=== PATIENT | male | born 1950 | race Caucasian/White ===

== ENCOUNTER 2024-01-29 11:43 | Inpatient (IN) ==
[2024-01-29 12:53] LABS: Basophils # (auto) 0.05 K/uL (0.00-0.20); Basophils % (auto) 0.7 %; Eosinophils # (auto) 0.24 K/uL (0.00-0.50); Eosinophils % (auto) 3.2 %; Hematocrit (blood only) 36.8 % (42.0-52.0); Hemoglobin 12.3 g/dl (14.0-18.0); Immature Granulocytes # (auto) 0.03 K/uL (0.01-0.20); Immature Granulocytes % (auto) 0.4 %; Lymphocytes # (auto) 1.89 K/uL (1.20-3.40); Lymphocytes % (auto) 24.9 %; Mean Corpuscular Hgb Conc 33.4 g/dL (32.0-36.0); Mean Corpuscular Volume 89.8 fL (80.0-100.0); Mean Platelet Volume 9.2 fL (9.4-12.4); Monocytes % (auto) 7.9 %; Neutrophils # (auto) 4.77 K/uL (1.40-6.50); Neutrophils % (auto) 62.9 %; Platelet Count 275 K/uL (130-400); RDW Coefficient of Variation 15.2 % (11.5-14.5); RDW Standard Deviation 49.9 fL (36.4-46.3); White Blood Count 7.58 K/ul (4.8-10.8)
[2024-01-29 13:07] LABS: Alanine Aminotransferase 9 U/L (7-52); Albumin Globulin Ratio 1.6 (0.9-2); Albumin Level 3.9 gm/dl (3.4-5.0); Alkaline Phosphatase 48 U/L (34-104); Anion Gap 12 (3-11); Aspartate Aminotransferase 12 U/L (13-39); BUN Creatinine Ratio 16.7 (10-20); Bilirubin,Total 0.7 mg/dl (0.2-1.0); Blood Urea Nitrogen 14 mg/dl (6-23); Calcium 9.1 mg/dl (8.6-10.3); Carbon Dioxide 24 mmol/L (21-32); Chloride 101 mmol/L (98-107); Est GFR (African American) 100.7 ml/min; Est GFR (Non-African American) 86.9 ml/min; Globulin 2.5 gm/dl (2.5-4.0); Glucose 82 mg/dl (70-99(Fasting)); Lipase 13 U/L (11-82); Potassium 3.9 mmol/L (3.5-5.1); Sodium 137 mmol/L (136-145); Total Protein 6.4 gm/dl (6.0-8.3)
[2024-01-29 13:17] LABS: INR 3.2 (0.9-1.1); Prothrombin Time 31.2 Seconds (9.0-12.0)
--- NOTE | 2024-01-29 13:22 | Emergency Department Note ---
Impression & Plan Generalized weakness, UTI (urinary tract infection), Ambulatory dysfunction, Chronic indwelling Chaparro catheter, Abdominal pain, Hypomagnesemia, Abnormal weight loss ED Provider Note CHIEF COMPLAINT: Lower abdominal pain HISTORY OF PRESENTING ILLNESS: This 73-year-old male patient presents to the emergency department with his for evaluation of lower abdominal pain. The patient has a Chaparro catheter in place that was replaced yesterday due to history of 6 UTIs since September with enlarged prostate. He is now complaining of lower abdominal and back pain and feels like he has to push the urine into his catheter. The patient is following with urology and is to be scheduled to have a procedure for his prostate. His states that he is lost approximately 20 pounds in the past month. The patient is concerned that there is something else causing his symptoms. The patient states that he does not have much of an appetite. He was admitted at [facility] for a UTI around and just came home from [facility] on Sunday. His states that he is getting weaker and weaker and is depressed about his health. The patient is waiting on getting in with GI because of alternating constipation, diarrhea, and the weight loss. However, they cannot schedule the EGD and Colonoscopy until March. They tried a GES, but he kept vomiting and the test could not be done. He denies any fevers, cough, or URI symptoms. Denies any chest pain or SOB. Denies nausea or vomiting. He is on Coumadin due to a history of blood clots. REVIEW OF SYSTEMS: See HPI for pertinent positives and pertinent negatives. ALLERGIES: NKDA, Cats MEDICATIONS: See below PAST MEDICAL HISTORY: See below PHYSICAL EXAM: VITALS: Vitals are noted on the nurse's note and reviewed by myself. GENERAL: The patient is chronically ill-appearing and in in appearance. Non toxic, no acute distress, non-diaphoretic. SKIN: Capillary refill <2 sec. EYES: PERRLA. EOMI. Conjunctivae without injection, sclerae without icterus. NOSE: Patent without discharge. MOUTH: Mucous membranes moist. Uvula midline. Airway patent. NECK: Supple without nuchal rigidity. HEART: Regular rate and rhythm without murmurs gallops or rubs. LUNGS: Clear to auscultation bilaterally without wheezes, rales or rhonchi. No retractions or accessory muscle use. ABDOMEN: Positive bowel sounds x 4. Normal tympanic percussion. Soft, mildly tender to palpation in the suprapubic area. No masses or organomegaly. Reaglado sign negative. No guarding or rebound tenderness. No focal RLQ or LLQ tenderness. Chaparro catheter is in place. MUSCULOSKELETAL: No gross musculoskeletal defects. No tenderness to palpation of the cervical, thoracic, or lumbar spine or paraspinal muscles. Peripheral pulses 2+ and equal in the bilateral upper and lower extremities. NEURO: Patient was alert and oriented. No focal neurological deficits. DIFFERENTIAL DIAGNOSIS: Differential diagnosis includes hepatitis, pancreatitis, cholecystitis, cholelithiasis, appendicitis, kidney stone, pyelonephritis, UTI, gastritis, gastroenteritis, mesenteric adenitis, obstruction, constipation, hernia, abdominal abscess, perforation, diverticulitis, IBD, ischemic colitis, abdominal aortic aneurysm, testicular torsion, prostatitis, or others. ED COURSE AND MEDICAL DECISION MAKING: HISTORY FROM INDEPENDENT HISTORIAN: Additional history obtained from the patient's MEDICATIONS GIVEN: 500 mL normal saline solution bolus. Tylenol 1000 mg IV. Magnesium 1 g IV. MONITOR: Continuous playground monitor: Order was placed for continuous playground monitor. Patient was placed on the playground monitor and continuous pulse ox. Patient was noted to be in normal sinus rhythm at an initial rate of 66 bpm per my interpretation. EKG: EKG was interpreted by myself as normal sinus rhythm at 93 bpm with no acute ST or T wave changes and no significant change compared to his previous EKG. INTERPRETATION OF LABS: I interpreted the labs with full lab results as below in the lab section of this note. Pertinent lab results discussed in the MDM section below. INTERPRETATION OF IMAGING: Imaging studies were interpreted by myself and read by radiology as per the imaging section of this note. CT scan of the head without contrast showed no acute intracranial abnormalities, but does show old small infarcts. CT scan of the chest with IV contrast shows mild cardiomegaly and extensive coronary artery calcification with a few pulmonary nodules measuring up to 7 mm, but no convincing evidence for malignancy or other acute intrathoracic findings. CT scan of the abdomen pelvis with IV contrast showed nonspecific wall thickening of the ascending and proximal transverse colon. Correlate clinically to exclude colitis. No bowel obstruction or pneumoperitoneum. Bilateral nephrolithiasis with a 1.7 cm calculus in the right UPJ. No associated obstructive uropathy. Indeterminate bilateral renal lesions which could be evaluated with a follow-up nonemergent renal ultrasound. Cholelithiasis. Prostatomegaly with evidence of chronic bladder outlet obstruction. Colonic diverticulosis. CONSULTATIONS: On-call hospitalist, case management MDM SUMMARY: The patient was seen during a time of extreme volume and extreme acuity. Nursing triage protocols were initiated with IV lock, labs, and/or imaging studies conducted by protocol in the triage area. The patient was initially evaluated in a triage room and then re-evaluated once they were taken back to an exam room. The patient has had 6 UTIs since September and has a chronic Chaparro catheter in place that was just changed yesterday. He also has an enlarged prostate and is waiting on a procedure by urology. The patient has had a 20 pound weight loss in the past month and is scheduled for an EGD and colonoscopy in March by GI. The patient was unable to tolerate a gastric emptying study. The patient was admitted at [facility] until around for UTI and was just discharged home from [facility] on 01/26/2024. The patient was given 500 mL normal saline solution bolus. He was given Tylenol 1000 mg IV with improvement of his pain. White blood cell count normal at 7.58. Hemoglobin low at 12.3. Platelet count normal at 275. INR slightly supratherapeutic at 3.2. CMP without significant abnormalities. High- sensitivity troponin was normal. TSH was normal. Magnesium low at 1.0. Cath urine sample with trace ketones, 1+ blood, 3+ leukocyte esterase, greater than 50 white blood cells, 3-5 red blood cells, and 11-20 hyaline cast. Urine culture pending. COVID, RSV, and influenza were negative. CT scan of the head without contrast showed no acute intracranial abnormalities, but does show old small infarcts. CT scan of the chest with IV contrast shows mild cardiomegaly and extensive coronary artery calcification with a few pulmonary nodules measuring up to 7 mm, but no convincing evidence for malignancy or other acute intrathoracic findings. CT scan of the abdomen pelvis with IV contrast showed nonspecific wall thickening of the ascending and proximal transverse colon. Correlate clinically to exclude colitis. No bowel obstruction or pneumoperitoneum. Bilateral nephrolithiasis with a 1.7 cm calculus in the right UPJ. No associated obstructive uropathy. Indeterminate bilateral renal lesions which could be evaluated with a follow-up nonemergent renal ultrasound. Cholelithiasis. Prostatomegaly with evidence of chronic bladder outlet obstruction. Colonic diverticulosis. I had a meaningful discussion about this patient with Dr. Dias who agrees with my assessment and the treatment plan. The patient's states that he is unable to ambulate by himself at home due to his weakness and she is unable to assist him with ambulation or activities of daily living. She is also concerned about his weight loss and trouble eating and drinking. The patient's magnesium is also significantly low at 1.0. I spoke with case management and the patient cannot be a direct admit to a care home facility. Therefore, the patient will be admitted for further evaluation, treatment, and placement. I spoke with the on-call hospitalist who agreed to admit the patient for further management. Please refer to their dictation for further details. The patient's care was transferred in stable condition. DIAGNOSIS: Weakness with ambulatory dysfunction Abdominal pain Weight loss Recurrent UTIs with indwelling Chaparro catheter Hypomagnesemia Past Med/Surg History Problem List (Updated 01/29/24 @ 22:49 by Liliana Bradshaw PA-C) Abnormal weight loss (Acute) Hypomagnesemia (Acute) Abdominal pain (Acute) Chronic indwelling Chpaarro catheter (Acute) Ambulatory dysfunction (Acute) Generalized weakness (Acute) Urinary retention Cholelithiasis UTI (urinary tract infection) (Acute) Medical History History of pulmonary embolism History of DVT (deep vein thrombosis) History of Hodgkin's disease BPH (benign prostatic hyperplasia) Orthostatic hypotension HTN (hypertension) Hyperparathyroidism DM type 2 (diabetes mellitus, type 2) Cord compression 2019 - due to trauma (fall down stairs) Surgical History Status post cervical spinal fusion History of laminectomy Social History Smoking Status: Never smoker Hx Alcohol Use: No Hx Substance Use: No Preferred Language: Belarusian Communication Ability: Effective Snuff Blender Required: No Beliefs That Will Affect Care: None Current Living Situation: Spouse Other Information That Helps Us Care for You: No Feels Safe at Home: Yes Safety Concerns: Feels Safe At This Time Assistive Devices: Hospital Bed and Walker Allergies Allergies Allergy/AdvReac Type Severity Reaction Status Date / Time No Known Allergies Allergy Unverified 08/12/18 17:06 Home Meds Home Medications Medication Instructions Recorded Confirmed atorvastatin 40 mg tablet 40 mg PO DAILY 08/12/18 01/29/24 duloxetine 30 mg capsule,delayed 60 mg PO DAILY 08/12/18 01/29/24 release metformin 1,000 mg tablet 1,000 mg PO BIDM 08/12/18 01/29/24 tamsulosin 0.4 mg capsule (Flomax) 0.4 mg PO QPM 08/12/18 01/29/24 cholecalciferol (vitamin D3) 10 10 mcg PO DAILY 01/29/24 01/29/24 mcg (400 unit) tablet cinacalcet 30 mg tablet 30 mg PO DAILY 01/29/24 01/29/24 ferrous sulfate 325 mg (65 mg 325 mg PO HS 01/29/24 01/29/24 iron) tablet finasteride 5 mg tablet 5 mg PO DAILY 01/29/24 01/29/24 fludrocortisone 0.1 mg tablet 0.1 mg PO DAILY 01/29/24 01/29/24 glipizide 2.5 mg tablet, extended 2.5 mg PO DAILY 01/29/24 01/29/24 release 24 hr metoprolol succinate 25 mg 12.5 mg PO BID 01/29/24 01/29/24 tablet,extended release 24 hr omeprazole 20 mg capsule,delayed 20 mg PO DAILY 01/29/24 01/29/24 release warfarin 5 mg tablet 5 mg PO DAILY 01/29/24 01/29/24 Results & Data (ED) Vital Signs Vital Signs - 24 hr 01/29/24 12:02 01/29/24 16:06 Temperature 36.5 C Temperature Source Temporal Artery Scan Pulse Rate 93 H 68 Respiratory Rate 22 Respiratory Effort / Characteristics Non-Labored Respiratory Depth Normal Blood Pressure 100/63 Blood Pressure Mean 75 Pulse Oximetry 97 Oxygen Delivery Method Room Air Sepsis Recent Fever Within 48 Hours No Sepsis New/Unexplained Change in Mental Status No Sepsis Action Taken by Nursing No Action Required Laboratory Data 01/29/24 12:30 01/29/24 12:30 Lab Results 01/29/24 Range/Units 12:30 WBC 7.58 (4.8-10.8) K/ul RBC 4.10 L (4.70-6.10) M/uL Hgb 12.3 L (14.0-18.0) g/dl Hct 36.8 L (42.0-52.0) % MCV 89.8 (80.0-100.0) fL MCH 30.0 (25.0-34.0) pg MCHC 33.4 (32.0-36.0) g/dL RDW Std Deviation 49.9 H (36.4-46.3) fL RDW Coeff of Doreen 15.2 H (11.5-14.5) % Plt Count 275 (130-400) K/uL MPV 9.2 L (9.4-12.4) fL Immature Gran % (Auto) 0.4 % Neut % (Auto) 62.9 % Lymph % (Auto) 24.9 % Rice % (Auto) 7.9 % Eos % (Auto) 3.2 % Baso % (Auto) 0.7 % Neut # (Auto) 4.77 (1.40-6.50) K/uL Lymph # (Auto) 1.89 (1.20-3.40) K/uL Rice # (Auto) 0.60 H (0.11-0.59) K/uL Eos # (Auto) 0.24 (0.00-0.50) K/uL Baso # (Auto) 0.05 (0.00-0.20) K/uL Immature Gran # (Auto) 0.03 (0.01-0.20) K/uL PT 31.2 H (9.0-12.0) Seconds INR 3.2 H (0.9-1.1) Sodium 137 (136-145) mmol/L Potassium 3.9 (3.5-5.1) mmol/L Chloride 101 (98-107) mmol/L Carbon Dioxide 24 (21-32) mmol/L Anion Gap 12 H (3-11) BUN 14 (6-23) mg/dl Creatinine 0.84 (0.6-1.4) mg/dl Est Cr Clr Drug Dosing Not Reportable Est GFR ( Amer) 100.7 ml/min Est GFR (Non-Af Amer) 86.9 ml/min BUN/Creatinine Ratio 16.7 (10-20) Glucose 82 (70-99(Fasting)) mg/dl Calcium 9.1 (8.6-10.3) mg/dl Magnesium 1.0 L (1.7-2.4) mg/dl Total Bilirubin 0.7 (0.2-1.0) mg/dl AST 12 L (13-39) U/L ALT 9 (7-52) U/L Alkaline Phosphatase 48 (34-104) U/L Troponin I High Sens 4.1 (0-20) pg/ml Total Protein 6.4 (6.0-8.3) gm/dl Albumin 3.9 (3.4-5.0) gm/dl Globulin 2.5 (2.5-4.0) gm/dl Albumin/Globulin Ratio 1.6 (0.9-2) Lipase 13 (11-82) U/L TSH 0.623 (0.300-4.500) uIu/ml Administered Medications Ferrous Sulfate (Ferrous Sulfate 325 Mg Tab) 325 mg PO HS ANKIT Stop: 02/28/24 20:59 Last Admin: 01/29/24 20:26 Dose: 325 mg Documented By: TKB Insulin Aspart (Insulin Aspart Per Unit Charge) 0 units SC ACHS ANKIT Stop: 02/28/24 20:59 Last Admin: 01/29/24 20:36 Dose: Not Given Documented By: KATHY Co-signed By: RIZWAN Metoprolol Succinate (Metoprolol Succ 25mg Ext Rel Tab) 12.5 mg PO BID ANKIT Stop: 02/28/24 20:59 Last Admin: 01/29/24 20:26 Dose: 12.5 mg Documented By: TKB Tamsulosin HCl (Tamsulosin Hcl 0.4 Mg Cap) 0.4 mg PO QPM NAKIT Stop: 02/28/24 20:59 Last Admin: 01/29/24 20:26 Dose: 0.4 mg Documented By: TKB Discontinued Medications Sodium Chloride (Nss) 500 mls @ 999 mls/hr IV .Q31M ONE Stop: 01/29/24 14:00 Last Infusion: 01/29/24 17:57 Dose: Infused Documented By: Admin: 01/29/24 15:52 Dose: 999 mls/hr Documented By: [facility] Acetaminophen (Ofirmev) 1,000 mg in 100 mls @ 400 mls/hr IV NOW STA Stop: 01/29/24 13:44 Last Admin: 01/29/24 15:50 Dose: Not Given Documented By: [facility] Acetaminophen (Ofirmev) 1,000 mg in 100 mls @ 400 mls/hr IV NOW STA Stop: 01/29/24 15:35 Last Infusion: 01/29/24 17:56 Dose: Infused Documented By: Admin: 01/29/24 15:50 Dose: 400 mls/hr Documented By: [facility] Magnesium Sulfate/Dextrose (Magnesium Sulfate / D5w) 1 gm in 100 mls @ 100 mls/hr IV NOW STA Stop: 01/29/24 16:21 Last Infusion: 01/29/24 17:57 Dose: Infused Documented By: Admin: 01/29/24 15:50 Dose: 100 mls/hr Documented By: [facility] Magnesium Sulfate/Dextrose (Magnesium Sulfate / D5w) 1 gm in 100 mls @ 50 mls/hr IV Q2H [facility] Stop: 01/29/24 21:29 Last Infusion: 01/29/24 22:18 Dose: Infused Documented By: Admin: 01/29/24 20:18 Dose: 50 mls/hr Documented By: Infusion: 01/29/24 20:01 Dose: Infused Documented By: Admin: 01/29/24 18:01 Dose: 50 mls/hr Documented By: Ceftriaxone Sodium (Rocephin) 1,000 mg in 50 mls @ 100 mls/hr IV Q24H [facility] Stop: 02/08/24 17:44 Last Admin: 01/29/24 18:49 Dose: Not Given Documented By: [facility] Ioversol (Optiray 320 100ml) 94 ml IV ONCE ONE Stop: 01/29/24 13:53 Last Admin: 01/29/24 13:52 Dose: 94 ml Documented By: YOEL Imaging Data Radiologist's Impression: Abdomen/Pelvis CT 01/29/24 13:[address] WITH IV CONTRAST HISTORY: Acute renal as abdominal pain Abdominal pain, back pain, weight loss TECHNIQUE: Multiaxial CT images of the abdomen and pelvis were performed following the IV administration of 94 cc of Optiray, A dose lowering technique was utilized adhering to the principles of ALARA. COMPARISON STUDY: Chest CT of same day FINDINGS: Chest CT is dictated separately. This included discussion of the patient's solid pulmonary nodules. There is no free air. Unremarkable spleen, atrophic pancreas and adrenal glands. Mild gallbladder distention with a subcentimeter dependent gallstone. Unremarkable liver. There is patency of the intrahepatic and portal veins. Nonobstructing calculi left kidney measuring up to 7 mm. Indeterminate intermediate density lesion in the lateral interpolar left kidney is partially exophytic on image 121 measuring 2.9 cm, Hounsfield unit of 43. Simple appearing exophytic 11 mm lesion of the inferior pole right kidney. There is mild cortical thinning of the kidneys. There is a 1.4 x 0.9 x 1.7 cm calculus of the right renal pelvis. No significant hydronephrosis. Pelvic structures are not well seen secondary to streak artifact from right hip arthroplasty. The prostate is enlarged. Decompressed urinary bladder with wall thickening. Chaparro catheter in place. There is atherosclerosis of the aorta without aneurysm. No pathologically enlarged lymph nodes identified. Nonspecific trace free pelvic fluid with body wall edema. Colonic diverticulosis without acute diverticulitis. Nonspecific circumferential wall thickening of the cecum, ascending colon and proximal half of the transverse colon. Noninflamed appendix. Ventral abdominal wall hernia repair. No acute fracture. IMPRESSION: 1. Nonspecific wall thickening of the ascending and proximal transverse colon. Correlate clinically to exclude colitis. 2. No bowel obstruction or pneumoperitoneum. 3. Bilateral nephrolithiasis with a 1.7 cm calculus in the right UPJ. No associated obstructive uropathy. 4. Indeterminate bilateral renal lesions could be evaluated with follow-up nonemergent renal ultrasound. 5. Cholelithiasis. 6. Prostatomegaly with evidence of chronic bladder outlet obstruction. 7. Colonic diverticulosis. ACT 112: Negative or not required by law. The above report was generated using voice recognition software. It may contain grammatical, syntax or spelling errors. Electronically signed by: Hayden Omalley M.D. 01/29/2024 3:[address] 01/29/24 13:30 CT OF THE CHEST WITH IV CONTRAST CLINICAL HISTORY: Weight loss, weakness. COMPARISON STUDY: Chest radiograph January 06, 2011. TECHNIQUE: Following IV administration of 94 mL of Optiray, helical axial images of the chest were obtained. Sagittal and coronal reconstructions were viewed as well as maximal intensity projections on an independent 3-D workstation. Automated exposure control was utilized for the study. A dose lowering technique was utilized adhering to the principles of ALARA. FINDINGS: No enlarged axillary, mediastinal or hilar lymph nodes are present. The heart is mildly enlarged. There is extensive coronary artery calcification. Trace pericardial effusion. No pneumothorax or pleural effusion is present. There is no consolidation to suggest pneumonia. A few tiny cluster of tree-in-bud nodules within the right lung are present. Several small solid noncalcified pulmonary nodules are noted. The largest is a 7 mm left lower lobe nodule on image 165. There are no fractures or suspicious lesions within the bony thorax. The abdomen and pelvis CT will be reported separately. There is a gallstone within the gallbladder. IMPRESSION: 1. No acute intrathoracic findings. 2. No convincing evidence for malignancy within the chest. 3. A few pulmonary nodules measuring up to [address] in 6 months to ensure stability is recommended. 4. Mild cardiomegaly. Extensive coronary artery calcification. ACT 112: Negative or not required by law. Electronically signed by: Naveen Rockwell M.D. 01/29/2024 2:[address] 01/29/24 13:[address] DOSE: 2003.19 mGy.cm HISTORY: Weakness, loss of balance, weight loss TECHNIQUE: Multiaxial CT images of the head were performed without the use of intravenous contrast. Automated exposure control was utilized for this study. A dose lowering technique was utilized adhering to the principles of ALARA. Comparison: None. Findings: The paranasal sinuses and mastoid air cells are clear. The calvarium and skull base are intact. There is no mass, hematoma, midline shift, acute infarct. White matter hypodensity is nonspecific but suggestive of microvascular ischemic change. The ventricles and sulci demonstrate mild age-related involutional changes. Small focal areas of encephalomalacia within the right high convexity and left occipital lobe consistent with old infarcts. Impression: 1. No acute infarct or acute intracranial hemorrhage. 2. 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 ACT 112: Negative or not required by law. Electronically signed by: Mario Carmen M.D. 01/29/2024 2:15 PM Discharge Plan Visit Data Chief Complaint: GI Assessment Stated Complaint: UTI'S CATHERTOR IN, LOW ABD PAIN ED Provider: Leighton Dias ED Midlevel Provider: Liliana Bradshaw Discharge Problem: Generalized weakness, UTI (urinary tract infection), Ambulatory dysfunction, Chronic indwelling Chaparro catheter, Abdominal pain, Hypomagnesemia, Abnormal weight loss Patient Disposition: Admitted As Inpatient Condition: Fair Discharge Instructions Interventions: ED Discharge Assessment Last Done: 01/29/24 18:26 Discharge Problem: UTI (urinary tract infection) Qualifiers: Urinary tract infection type: catheter-associated UTI Indwelling urinary catheter type: indwelling urethral catheter Encounter type: initial encounter Q ualified Code(s): T83.511A - Infection and inflammatory reaction due to indwelling urethral catheter, initial encounter; N39.0 - Urinary tract infection, site not specified Abdominal pain Qualifiers: Abdominal location: generalized Qualified Code(s): R10.84 - Generalized abdominal pain
[2024-01-29] MEDS: OPTIRAY 320 100ml IV ONE (13:52)
--- NOTE | 2024-01-29 14:17 | CT Scan Report ---
HEAD CT NONCONTRAST CT DOSE: 2003.19 mGy.cm HISTORY: Weakness, loss of balance, weight loss TECHNIQUE: Multiaxial CT images of the head were performed without the use of intravenous contrast. A utomated exposure control was utilized for this study. A dose lowering technique was utilized adheri ng to the principles of ALARA. Comparison: None. Findings: The paranasal sinuses and mastoid air cells are clear. The calvarium and skull base are int act. There is no mass, hematoma, midline shift, acute infarct. White matter hypodensity is nonspecifi c but suggestive of microvascular ischemic change. The ventricles and sulci demonstrate mild age-rela willy involutional changes. Small focal areas of encephalomalacia within the right high convexity and l eft occipital lobe consistent with old infarcts. Impression: 1. No acute infarct or acute intracranial hemorrhage. 2. 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 ACT 112: Negative or not required by law. Electronically signed by: Mario Carmen M.D. 01/29/2024 2:15 PM
--- NOTE | 2024-01-29 14:28 | CT Scan Report ---
CT OF THE CHEST WITH IV CONTRAST CLINICAL HISTORY: Weight loss, weakness. COMPARISON STUDY: Chest radiograph January 06, 2011. TECHNIQUE: Following IV administration of 94 mL of Optiray, helical axial images of the chest were o btained. Sagittal and coronal reconstructions were viewed as well as maximal intensity projections o n an independent 3-D workstation. Automated exposure control was utilized for the study. A dose low ering technique was utilized adhering to the principles of ALARA. FINDINGS: No enlarged axillary, mediastinal or hilar lymph nodes are present. The heart is mildly en larged. There is extensive coronary artery calcification. Trace pericardial effusion. No pneumothorax or pleural effusion is present. There is no consolidation to suggest pneumonia. A few tiny cluster o f tree-in-bud nodules within the right lung are present. Several small solid noncalcified pulmonary n odules are noted. The largest is a 7 mm left lower lobe nodule on image 165. There are no fractures o r suspicious lesions within the bony thorax. The abdomen and pelvis CT will be reported separately. T here is a gallstone within the gallbladder. IMPRESSION: 1. No acute intrathoracic findings. 2. No convincing evidence for malignancy within the chest. 3. A few pulmonary nodules measuring up to [address] in 6 months to ensure stability is recomm ended. 4. Mild cardiomegaly. Extensive coronary artery calcification. ACT 112: Negative or not required by law. Electronically signed by: Naveen Rockwell M.D. 01/29/2024 2:27 PM
--- NOTE | 2024-01-29 15:04 | CT Scan Report ---
ABDOMEN AND PELVIS CT WITH IV CONTRAST HISTORY: Acute renal as abdominal pain Abdominal pain, back pain, weight loss TECHNIQUE: Multiaxial CT images of the abdomen and pelvis were performed following the IV administrat ion of 94 cc of Optiray, A dose lowering technique was utilized adhering to the principles of ALARA. COMPARISON STUDY: Chest CT of same day FINDINGS: Chest CT is dictated separately. This included discussion of the patient's solid pulmonary nodules. There is no free air. Unremarkable spleen, atrophic pancreas and adrenal glands. Mild gallbl adder distention with a subcentimeter dependent gallstone. Unremarkable liver. There is patency of th e intrahepatic and portal veins. Nonobstructing calculi left kidney measuring up to 7 mm. Indeterminate intermediate density lesion in the lateral interpolar left kidney is partially exophytic on image 121 measuring 2.9 cm, Hounsfield unit of 43. Simple appearing exophytic 11 mm lesion of the inferior pole right kidney. There is mild cortical thinning of the kidneys. There is a 1.4 x 0.9 x 1.7 cm calculus of the right renal pelvis. N o significant hydronephrosis. Pelvic structures are not well seen secondary to streak artifact from r ight hip arthroplasty. The prostate is enlarged. Decompressed urinary bladder with wall thickening. F oley catheter in place. There is atherosclerosis of the aorta without aneurysm. No pathologically enl arged lymph nodes identified. Nonspecific trace free pelvic fluid with body wall edema. Colonic diverticulosis without acute divert iculitis. Nonspecific circumferential wall thickening of the cecum, ascending colon and proximal half of the transverse colon. Noninflamed appendix. Ventral abdominal wall hernia repair. No acute fractu re. IMPRESSION: 1. Nonspecific wall thickening of the ascending and proximal transverse colon. Correlate clinically t o exclude colitis. 2. No bowel obstruction or pneumoperitoneum. 3. Bilateral nephrolithiasis with a 1.7 cm calculus in the right UPJ. No associated obstructive uropa thy. 4. Indeterminate bilateral renal lesions could be evaluated with follow-up nonemergent renal ultrasou nd. 5. Cholelithiasis. 6. Prostatomegaly with evidence of chronic bladder outlet obstruction. 7. Colonic diverticulosis. ACT 112: Negative or not required by law. The above report was generated using voice recognition software. It may contain grammatical, syntax o r spelling errors. Electronically signed by: Hayden Omalley M.D. 01/29/2024 3:02 PM
[2024-01-29 15:08] LABS: Troponin I High Sensitivity 4.1 pg/ml (0-20)
[2024-01-29 15:15] LABS: Thyroid Stimulating Hormone 0.623 uIu/ml (0.300-4.500)
--- NOTE | 2024-01-29 15:43 | Emergency Department Note ---
ED Visit Note I was consulted by the Advanced Practice Provider. The case was discussed at length. I personally made/approved the management plan and take responsibility for the patient management. I performed a substantive portion of the visit. This includes the aspects of: Patient was found to be quite hypomagnesemic. He appears to have a UTI. He has been weak, he is not able to care for himself. He was recently discharged from [facility]. Given the circumstances and findings, hospitalization is warranted. The on-call hospitalist was consulted. .
[2024-01-29] MEDS: ACETAMINOPHEN 1,000 MG/100 ML VIAL IV STA ×2 (15:50)
[2024-01-29] MEDS: MAGNESIUM SULFATE / D5W 1 GM/100 ML BAG IV STA (15:50)
[2024-01-29] MEDS: SODIUM CHLORIDE 0.9% 500 ML IV ONE (15:52)
--- NOTE | 2024-01-29 16:01 | Electrocardiogram Report ---
Test Reason : Blood Pressure : */* mmHG Vent. Rate : 93 BPM Atrial Rate : 93 BPM P-R Int : 120 ms QRS Dur : 110 ms QT Int : 378 ms P-R-T Axes : -8 -10 -12 degrees QTcB Int : 469 ms Normal sinus rhythm Minimal voltage criteria for LVH, may be normal variant ( Jossue product ) Borderline ECG When compared with ECG of 04-Jan-2011 17:56, No significant change Confirmed by Troy Wellington ([id number]) on 01/29/2024 4:01:01 PM Referred By: REFERRED SELF Confirmed By: Troy Wellington
[2024-01-29 16:20] LABS: Appearance Urine Cloudy (Clear); Bacteria Urine Automated None Seen (None Seen); Bilirubin Urine Negative (Negative); Blood Urine 1+ (Negative); Color Urine Yellow; Epithelial Cell Urine Auto 0-2 /hpf (0-2); Glucose Urine UA Negative (Negative); Ketones Urine Trace (Negative); Leukocyte Esterase Urine 3+ (Negative); Nitrite Urine Negative (Negative); Protein Urine Negative (Negative); Specific Gravity Urine 1.014 (1.000-1.030); Urobilinogen Urine Negative (Negative); WBC Urine Automated >50 /hpf (0-5)
[2024-01-29 16:53] LABS: Influenza A virus by PCR Negative (Neg); Influenza B virus by PCR Negative (Neg); RSV by PCR Negative (Neg); SARS CoV2 RNA(COVID-19) Ceph NEGATIVE (Negative)
--- NOTE | 2024-01-29 17:40 | History & Physical Report ---
Date of Service January 29, 2024 Assessment & Plan (1) UTI (urinary tract infection): (2) BPH (benign prostatic hyperplasia): (3) Urinary retention: (4) Generalized weakness: (5) Ambulatory dysfunction: Plan: Admit to med/surg Patient presenting from home for evaluation of generalized weakness and ambulatory dysfunction. Patient recently admitted to [facility] 01/08 through 01/13 for near syncope and orthostatic hypotension. Patient's midodrine was increased and patient was discharged to [facility] for rehab. Since September of this year, patient has had recurrent urinary tract infections. Patient was discharged from [facility] on 01/25. Since arriving home, patient has been generally weak and unable to ambulate. states she has been placing him in a wheelchair at home. Patient was seen at [facility] ED yesterday for these complaints. Patient was diagnosed with a UTI and discharged on Augmentin. Urine culture from [facility] growing E. Coli, sensitivities pending. Previous urine cultures have grown Klebsiella Start IV ceftriaxone, follow urine culture Patient with history of BPH with chronic urinary retention Juarez catheter in place, Juarez was exchanged at [facility] ED yesterday. Patient is scheduled for cysto on 02/[address] Nikolai Chaudhari. Patient and requesting second opinion. Consult to [facility] urology placed. Currently afebrile, no leukocytosis Noted that while at [facility], patient's midodrine was changed to fludrocortisone. Patient's states that she has been unable to cook pickled meat this new prescription at the pharmacy and patient has been without for the past 3 days. This may be contributing to patient's worsening weakness. PT/OT, may need placement (6) Cholelithiasis: Plan: Patient reporting post prandial nausea for the past several months. Has been frankie ble to eat and loosing weight. Was seen by [facility] surgery in July for cholelithiasis. Cholecystectomy not advised at that time. Patient and requesting second opinion. Consult placed to [facility] general surgery. (7) History of DVT (deep vein thrombosis): (8) History of pulmonary embolism: Plan: On Coumadin, INR 3.2 Continue Coumadin and monitor INR (9) Orthostatic hypotension: Plan: Previously managed on midodrine, recently changed to fludrocortisone while at [facility] BP currently stable, continue fludrocortisone (10) HTN (hypertension): Plan: With orthostatic hypotension BP stable, continue metoprolol (11) Hyperparathyroidism: Plan: Chronic, stable Continue cinacalcet (12) DM type 2 (diabetes mellitus, type 2): Plan: HgbA1c 6.8 10/2023 Hold oral agents and utilize NovoLog per protocol while hospitalized DVT PROPHYLAXIS On Coumadin with therapeutic INR Patient seen in collaboration with Dr. Foss. I spent a total of 75 minutes coordinating, documenting, and providing care for this patient excluding time spent in the performance of separately billed services. This included personally reviewing all current laboratories and imaging studies, medication reconciliation, outpatient chart review, and discussion with specialists. 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 Patient recently admitted to [facility] 01/08 through 01/13 for near syncope and orthostatic hypotension. Patient's midodrine was increased and patient was discharged to [facility] for rehab. Since September of this year, patient has had recurrent urinary tract infections. Patient was discharged from [facility] on 01/25. Since arriving home, patient has been generally weak and unable to ambulate. states she has been placing him in a wheelchair at home. Patient was seen at [facility] ED yesterday for these complaints. Patient was diagnosed with a UTI and discharged on Augmentin. states that urine was dark and had a foul odor yesterday. No fevers or chills reported. Also over the past several months, patient has had a very poor appetite with postprandial nausea. Was evaluated by general surgery in July for cholelithiasis, cholecystectomy was not recommended at that time. states the patient has not been reevaluated for this issue. No abdominal pain but patient struggles with constipation and diarrhea. Patient denies chest pain and shortness of breath. No lightheadedness, dizziness, diaphoresis, syncopal events. In the ED, labs show hypomagnesemia, Mg +1.0. Patient was given Tylenol, magnesium replacement, IVF. Allergies Allergy/AdvReac Type Severity Reaction Status Date / Time No Known Allergies Allergy Unverified 08/12/18 17:06 Home Medications Medication Instructions Recorded Confirmed Type atorvastatin 40 mg tablet 40 mg PO DAILY 08/12/18 01/29/24 History duloxetine 30 mg capsule,delayed 60 mg PO DAILY 08/12/18 01/29/24 History release metformin 1,000 mg tablet 1,000 mg PO BIDM 08/12/18 01/29/24 History tamsulosin 0.4 mg capsule (Flomax) 0.4 mg PO QPM 08/12/18 01/29/24 History cholecalciferol (vitamin D3) 10 10 mcg PO DAILY 01/29/24 01/29/24 History mcg (400 unit) tablet cinacalcet 30 mg tablet 30 mg PO DAILY 01/29/24 01/29/24 History ferrous sulfate 325 mg (65 mg 325 mg PO HS 01/29/24 01/29/24 History iron) tablet finasteride 5 mg tablet 5 mg PO DAILY 01/29/24 01/29/24 History fludrocortisone 0.1 mg tablet 0.1 mg PO DAILY 01/29/24 01/29/24 History glipizide 2.5 mg tablet, extended 2.5 mg PO DAILY 01/29/24 01/29/24 History release 24 hr metoprolol succinate 25 mg 12.5 mg PO BID 01/29/24 01/29/24 History tablet,extended release 24 hr omeprazole 20 mg capsule,delayed 20 mg PO DAILY 01/29/24 01/29/24 History release warfarin 5 mg tablet 5 mg PO DAILY 01/29/24 01/29/24 History Past Med/Surg History Problem List (Updated 01/29/24 @ 17:31 by PHILIP Jung) Ambulatory dysfunction Generalized weakness Urinary retention Cholelithiasis UTI (urinary tract infection) Medical History (Updated 01/29/24 @ 17:31 by PHILIP Jung) History of pulmonary embolism History of DVT (deep vein thrombosis) History of Hodgkin's disease BPH (benign prostatic hyperplasia) Orthostatic hypotension HTN (hypertension) Hyperparathyroidism DM type 2 (diabetes mellitus, type 2) Cord compression 2018 - due to trauma (fall down stairs) Surgical History (Updated 01/29/24 @ 17:31 by PHILIP Jung) Status post cervical spinal fusion History of laminectomy Social History Smoking Status: Never smoker Preferred Language: Venezuelan Feels Safe at Home: Yes Review of Systems Review of Systems: ROS per HPI, all other systems reviewed and negative Physical Exam Constitutional: WD/WN, vitals as above no acute distress Eyes: PERRL, conjunctivae normal, anicteric sclerae ENMT: external ear and nose normal, oropharynx normal Respiratory: normal respiratory effort, lungs clear to auscultation Cardiovascular: Rate/Rhythm: regular rate and regular rhythm Vessels: normal peripheral pulses Extremities: + edema (+1 ankle edema, R > L ) Gastrointestinal (Abdomen): normal bowel sounds, soft, nontender, no hepatosplenomegaly Skin: no rashes, warm and dry Neurologic: PERRL, EOMI, accommodation nl, no face palsy, no dysarthria Psychiatric: Orientation: alert and oriented x 3 Affect: + flat affect Results & Data Results & Data Vital Signs (Past 12 Hours) Vital Signs Temp Pulse Resp BP Pulse Ox O2 Del Method 01/29/24 16:06 68 01/29/24 12:02 36.5 C 93 H 22 100/63 97 Room Air Laboratory Results Short CBC 01/29/24 Range/Units 12:30 WBC 7.58 (4.8-10.8) K/ul Hgb 12.3 L (14.0-18.0) g/dl Hct 36.8 L (42.0-52.0) % Plt Count 275 (130-400) K/uL BMP 01/29/24 12:30 Sodium 137 Potassium 3.9 Chloride 101 Carbon Dioxide 24 BUN 14 Creatinine 0.84 Glucose 82 Calcium 9.1 Liver Function 01/29/24 Range/Units 12:30 Total Bilirubin 0.7 (0.2-1.0) mg/dl AST 12 L (13-39) U/L ALT 9 (7-52) U/L Alkaline Phosphatase 48 (34-104) U/L Albumin 3.9 (3.4-5.0) gm/dl Urine 01/29/24 Range/Units Unknown Urine Color Yellow Urine Appearance Cloudy A (Clear) Urine pH 5.0 (4.5-7.5) Ur Specific Inland 1.014 (1.000-1.030) Urine Protein Negative (Negative) Urine Glucose (UA) Negative (Negative) Diagnostic Findings Abdomen/Pelvis CT 01/29/24 13:[address] WITH IV CONTRAST HISTORY: Acute renal as abdominal pain Abdominal pain, back pain, weight loss TECHNIQUE: Multiaxial CT images of the abdomen and pelvis were performed following the IV administration of 94 cc of Optiray, A dose lowering technique was utilized adhering to the principles of ALARA. COMPARISON STUDY: Chest CT of same day FINDINGS: Chest CT is dictated separately. This included discussion of the patient's solid pulmonary nodules. There is no free air. Unremarkable spleen, atrophic pancreas and adrenal glands. Mild gallbladder distention with a subcentimeter dependent gallstone. Unremarkable liver. There is patency of the intrahepatic and portal veins. Nonobstructing calculi left kidney measuring up to 7 mm. Indeterminate intermediate density lesion in the lateral interpolar left kidney is partially exophytic on image 121 measuring 2.9 cm, Hounsfield unit of 43. Simple appearing exophytic 11 mm lesion of the inferior pole right kidney. There is mild cortical thinning of the kidneys. There is a 1.4 x 0.9 x 1.7 cm calculus of the right renal pelvis. No significant hydronephrosis. Pelvic structures are not well seen secondary to streak artifact from right hip arthroplasty. The prostate is enlarged. Decompressed urinary bladder with wall thickening. Juarez catheter in place. There is atherosclerosis of the aorta without aneurysm. No pathologically enlarged lymph nodes identified. Nonspecific trace free pelvic fluid with body wall edema. Colonic diverticulosis without acute diverticulitis. Nonspecific circumferential wall thickening of the cecum, ascending colon and proximal half of the transverse colon. Noninflamed appendix. Ventral abdominal wall hernia repair. No acute fracture. IMPRESSION: 1. Nonspecific wall thickening of the ascending and proximal transverse colon. Correlate clinically to exclude colitis. 2. No bowel obstruction or pneumoperitoneum. 3. Bilateral nephrolithiasis with a 1.7 cm calculus in the right UPJ. No associated obstructive uropathy. 4. Indeterminate bilateral renal lesions could be evaluated with follow-up nonemergent renal ultrasound. 5. Cholelithiasis. 6. Prostatomegaly with evidence of chronic bladder outlet obstruction. 7. Colonic diverticulosis. ACT 112: Negative or not required by law. The above report was generated using voice recognition software. It may contain grammatical, syntax or spelling errors. Electronically signed by: Hayden Omalley M.D. 01/29/2024 3:[address] 01/29/24 13:30 CT OF THE CHEST WITH IV CONTRAST CLINICAL HISTORY: Weight loss, weakness. COMPARISON STUDY: Chest radiograph January 06, 2011. TECHNIQUE: Following IV administration of 94 mL of Optiray, helical axial images of the chest were obtained. Sagittal and coronal reconstructions were viewed as well as maximal intensity projections on an independent 3-D workstation. Automated exposure control was utilized for the study. A dose lowering technique was utilized adhering to the principles of ALARA. FINDINGS: No enlarged axillary, mediastinal or hilar lymph nodes are present. The heart is mildly enlarged. There is extensive coronary artery calcification. Trace pericardial effusion. No pneumothorax or pleural effusion is present. There is no consolidation to suggest pneumonia. A few tiny cluster of tree-in-bud nodules within the right lung are present. Several small solid noncalcified pulmonary nodules are noted. The largest is a 7 mm left lower lobe nodule on image 165. There are no fractures or suspicious lesions within the bony thorax. The abdomen and pelvis CT will be reported separately. There is a gallstone within the gallbladder. IMPRESSION: 1. No acute intrathoracic findings. 2. No convincing evidence for malignancy within the chest. 3. A few pulmonary nodules measuring up to [address] in 6 months to ensure stability is recommended. 4. Mild cardiomegaly. Extensive coronary artery calcification. ACT 112: Negative or not required by law. Electronically signed by: Naveen Rockwell M.D. 01/29/2024 2:[address] 01/29/24 13:[address] DOSE: 2003.19 mGy.cm HISTORY: Weakness, loss of balance, weight loss TECHNIQUE: Multiaxial CT images of the head were performed without the use of intravenous contrast. Automated exposure control was utilized for this study. A dose lowering technique was utilized adhering to the principles of ALARA. Comparison: None. Findings: The paranasal sinuses and mastoid air cells are clear. The calvarium and skull base are intact. There is no mass, hematoma, midline shift, acute infarct. White matter hypodensity is nonspecific but suggestive of microvascular ischemic change. The ventricles and sulci demonstrate mild age-related involutional changes. Small focal areas of encephalomalacia within the right h igh convexity and left occipital lobe consistent with old infarcts. Impression: 1. No acute infarct or acute intracranial hemorrhage. 2. 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 ACT 112: Negative or not required by law. Electronically signed by: Mario Carmen M.D. 01/29/2024 2:15 PM Code Status & VTE Plan VTE Prophylaxis Plan VTE Prophylaxis will be ordered: No Supervising Physician Co-Signing Physician Notes 73 yo M w/ PMH of T2DM, hyperparathyroidism, HTN, orthostatic hypotension, BPH w/ urinary retention status juarez (changed yesterday), depression, Hodgkin's dz, DVT and PE on Coumadin presented for evaluation of generalized weakness and ambulatory dysfxn. He was recently discharged from [facility] [01/08-01/13] after evaluation of near syncope and Orthostatic hypotension to [facility]. He was discharged on midodrine which was changed to Florinef at [facility] and family states that they were not able to collect it yet after discharge from [facility] about a week ago [employer]. They also report that he has been having nausea and vomiting leading to decreased appetite and weight loss since July of this year, was evaluated by general surgery for cholelithiasis as an outpatient, would like different opinion and would like general surgery eval here. they also state that he has been having recurrent UTI due to BPH and Juarez catheter, they do follow urology as an outpatient but would like to have a second opinion with urology in here. Patient denies fever. Juarez catheter was changed yesterday. Generalized weakness, UTI, ambulatory dysfunction: Rocephin. PT/OT. Nausea, vomiting, decreased appetite, cholelithiasis: Family would like second opinion with general surgery while in here regarding treatment for cholelithiasis. Orthostatic hypotension: Continue with Florinef. BPH, urinary retention, recurrent UTI: Treat UTI. Family would like second opinion with urology while in here. Other chronic medical conditions: Continue with/resume home meds as and when able. On Exam GENERAL: Alert and oriented x3. NAD, on RA. appears old/frail/weak. HEENT: No pallor, no icterus. Pupils equal, round and reactive to light. Oral mucosa moist. NECK: No JVD, no neck masses. HEART: S1 and S2 heard. Regular rate and rhythm. No murmur, no gallop. RESPIRATORY SYSTEM: Normal AP diameter. No accessory muscle use. No wheezing, no crackles. ABDOMEN: Soft, bowel sounds present, nontender, no distention. CENTRAL NERVOUS SYSTEM: No facial droop. Speech is clear. Obeys simple commands. Moves extremities. EXTREMITIES: 1+/trace ble edema, no erythema seen. I have seen and examined the patient and have discussed the case with the provider above. I agree with the assessment and plan as stated.
[2024-01-29] MEDS: MAGNESIUM SULFATE / D5W 1 GM/100 ML BAG IV SCH (18:01)
[2024-01-29] MEDS ORDERED: GLUCOSE 10 TAB/TUBE PO PRN (18:26)
[2024-01-29] MEDS ORDERED: DEXTROSE 50% 50 ML SYRINGE IV PRN (18:26)
[2024-01-29] MEDS ORDERED: CARBOHYDRATES FOR HYPOGLYCEMIA PO PRN (18:26)
[2024-01-29] MEDS ORDERED: GLUCOSE 40% GEL 15 GM TUBE PO PRN (18:26)
[2024-01-29] MEDS ORDERED: GLUCAGON FOR INJ 1 MG VIAL SQ PRN (18:26)
[2024-01-29] MEDS: cefTRIAXone SODIUM 1,000 MG/50 ML BAG IV SCH (18:49)
--- NOTE | 2024-01-29 19:22 | Surgery Consultation ---
<Statement entered by Davidson Coburn, - 01/30/24 08:25> This case has been discussed with the surgical PA, I agree with this plan. Date of Consultation January 29, 2024 Assessment & Plan (1) Cholelithiasis: The patient is being admitted on the hospitalist service. From a surgical perspective we recommend the following: As noted the patient has gallstones and had previous evaluation by surgeon at [facility] and cholecystectomy was not advised He does have slight distention of his gallbladder with gallstones but does not have definitive evidence of cholecystitis on CAT scan. He also does not have any elevation of LFTs Would recommend following serial labs We will get a gallbladder ultrasound for better delineation of the hepatobiliary system Additional recommendations will be forthcoming based on the results of serial labs and gallbladder ultrasound. If the gallbladder ultrasound is not convincing for cholecystitis and there is still concern the patient's gallbladder may be the culprit for some of his underlying symptomatology conside ration can be given to performing a HIDA scan but the need for this is yet to be determined Of note, if the patient would require any procedural intervention this would need to be coordinated with his anticoagulation which will obviously need to be held Additional recommendations will be forthcoming based on his clinical course as it unfolds History of Present Illness Reason for Consultation: Cholelithiasis Attending Physician: Patricia Foss MD History of Present Illness This is a 73-year-old male who [facility] today secondary to generalized weakness and ambulatory dysfunction. Patient reports that he had a recent admission to the hospital in [place] at the end of December and early January secondary to a near syncopal episode and he was treated for orthostatic hypotension. Patient was ultimately discharged to [facility] for rehab, and he was discharged from [facility] on 01/26/2024. Since being home from the rehab center the patient has had some worsening weakness and inability to ambulate. Dr. Ahumada does report that he has had recurrent urinary tract infections since September of this year. The patient reports that he has a chronic indwelling Chaparro catheter for approximately 3 weeks. He notes that he has followed with Dr. Nikolai Chaudhari of [facility] urology and he believes there are plans in place for him to have a voiding trial in February of this year. He does report he was seen at [facility] yesterday and diagnosed with a urinary tract infection. He was discharged on Augmentin and he did have his Chaparro catheter exchanged. In addition to what is noted above the patient says that he has been having some generalized postprandial abdominal pain for approximately 6 months. He does have a history of gallstones and said he saw a general surgeon at [facility] approximate 1 year ago and was told that he did not need his gallbladder taken out. Currently he denies any nausea or vomiting. He does note a decreased appetite and says he has lost approximately 12 pounds over the past 2 weeks. He says he has not had a change in bowel habits and has not had any melena, bright red blood per rectum, or hematochezia. He notes he has had prior abdominal surgery in the form of a right inguinal hernia several years ago and he believes they did utilize mesh. He also reports a history of a pulmonary embolism in the 1970s and he has taken Coumadin since that time, and he believes his most recent dose was this morning. Since arrival to hospital patient has had labs and imaging which I independent reviewed. 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 A CT scan of the chest was performed with no acute intrathoracic findings. A CT scan abdomen pelvis was also performed that showed some nonspecific wall thickening of the ascending and proximal transverse colon felt to potentially represent colitis. There is no evidence of pneumoperitoneum or bowel obstruction. Patient was noted to have bilateral nephrolithiasis with a 1.7 cm calculus at the right ureteropelvic junction with no associated obstructive uropathy. Gallstones were noted with mild gallbladder distention. The patient also had prostamegaly with evidence of chronic bladder outlet obstruction. Labs included CBC her white blood cell count and platelet count were normal. Hemoglobin and hematocrit were 12.3 and 36.8. Patient's INR is noted to be 3.2. Chemistry profile showed sodium and potassium as well as his BUN and creatinine were normal. Patient's magnesium is 1.0. There is no elevation of patient's bilirubin, transaminases, alkaline phosphatase, or lipase. Urinalysis showed cloudy urine which was negative for nitrites. There is 3+ leukocyte Estrace and greater than 50 white blood cells per high-power field but no bacteria. Patient was tested for COVID, influenza AMB, as well as RSV all of which were negative. At the time of my interview he was resting comfortably in bed he was in no distress. Allergies Allergy/AdvReac Type Severity Reaction Status Date / Time No Known Allergies Allergy Unverified 08/12/18 17:06 Home Medications Medication Instructions Recorded Confirmed Type atorvastatin 40 mg tablet 40 mg PO DAILY 08/12/18 01/29/24 History duloxetine 30 mg capsule,delayed 60 mg PO DAILY 08/12/18 01/29/24 History release metformin 1,000 mg tablet 1,000 mg PO BIDM 08/12/18 01/29/24 History tamsulosin 0.4 mg capsule (Flomax) 0.4 mg PO QPM 08/12/18 01/29/24 History cholecalciferol (vitamin D3) 10 10 mcg PO DAILY 01/29/24 01/29/24 History mcg (400 unit) tablet cinacalcet 30 mg tablet 30 mg PO DAILY 01/29/24 01/29/24 History ferrous sulfate 325 mg (65 mg 325 mg PO HS 01/29/24 01/29/24 History iron) tablet finasteride 5 mg tablet 5 mg PO DAILY 01/29/24 01/29/24 History fludrocortisone 0.1 mg tablet 0.1 mg PO DAILY 01/29/24 01/29/24 History glipizide 2.5 mg tablet, extended 2.5 mg PO DAILY 01/29/24 01/29/24 History release 24 hr metoprolol succinate 25 mg 12.5 mg PO BID 01/29/24 01/29/24 History tablet,extended release 24 hr omeprazole 20 mg capsule,delayed 20 mg PO DAILY 01/29/24 01/29/24 History release warfarin 5 mg tablet 5 mg PO DAILY 01/29/24 01/29/24 History Patient History Medical History History of pulmonary embolism History of DVT (deep vein thrombosis) History of Hodgkin's disease BPH (benign prostatic hyperplasia) Orthostatic hypotension HTN (hypertension) Hyperparathyroidism DM type 2 (diabetes mellitus, type 2) Cord compression 2018 - due to trauma (fall down stairs) Surgical History Status post cervical spinal fusion History of laminectomy Social History Smoking Status: Never smoker Preferred Language: Thai Feels Safe at Home: Yes Review of Systems Review of Systems: All systems reviewed & are unremarkable except as noted in HPI & below Physical Exam Constitutional: WD/WN, vitals as above Eyes: + anicteric sclerae ENMT: Ears: no hearing impairment and no external ear abnormality Mouth: no oropharynx abnormality Neck: trachea midline Respiratory: normal respiratory effort; no respiratory distress and no labored breathing Cardiovascular: Rate/Rhythm: regular rate and regular rhythm Gastrointestinal (Abdomen): At the time of my exam patient's abdomen is soft and nondistended. There is no rebound tenderness or guarding. There is no rigidity. There is no pain with palpation, specifically in the right upper quadrant. Musculoskeletal: No calf tenderness Skin: no jaundice Neurologic: Patient is able move all 4 extremities and follow simple commands without noted focal deficits Psychiatric: A+Ox3, euthymic affect Results & Data Vital Signs (Past 12 Hours) Vital Signs Temp Pulse Pulse Resp BP BP Pulse Ox 01/29/24 18:14 65 16 166/85 H 99 01/29/24 18:03 62 18 166/85 H 98 01/29/24 16:06 68 01/29/24 12:02 36.5 C 93 H 22 100/63 97 O2 Del Method 01/29/24 18:14 Room Air 01/29/24 18:03 Room Air 01/29/24 16:06 01/29/24 12:02 Room Air PG Care Time/CCT Total # of Minutes Spent Total Time Spent with Patient: Total time spent is greater than 50% in coordination of care (as documented) at patient's floor/unit and/or counseling patient: Coding Level of Care Code 08503 INT INP/OBS CARE 75MIN Diagnoses Cholelithiasis K80.20
[2024-01-29] MEDS: FERROUS SULFATE 325 MG TAB PO SCH (20:26)
[2024-01-29] MEDS: TAMSULOSIN HCL 0.4 MG CAP PO SCH (20:26)
[2024-01-29] MEDS: METOPROLOL SUCC 25MG EXT REL TAB PO SCH (20:26)
--- OUTSIDE RECORDS SUMMARY | 2024-01-29 20:30 | External Medical Summary | Summary of Care ---
Author Name Unknown Organization [facility] Address [address] [place] [address] Phone [phone] Care Team Providers Care Emergency Planning And Response Manager Name Role Phone Kaiser Amanda MD Primary Care Provider [phone] Reason for Visit * Reason Comments Urinary Tract Infection Symptoms * Auth/Cert Specialty Diagnoses / Procedures Referred By Fauzia t Referred To Contact [facility] [address] [place] [address] Phone: [phone] Emergency Medicine [facility] [address] [place] [address] Referral ID Status Reason Start Date Expiration Date Visits Re quested Visits Authorized [id number] Encounter Details Date Type Department Care Team (Late st Contact Info) Description 01/28/2024 4:26 AM EDT - 01/28/2024 7:23 AM EDT Emergency [facility] Emergency Department ([facility]) [address] [place] [address] Bina Armstrong MD [address] [facility] [place] [id number] Complicated UTI (urinary tract infection) (Primary Dx); Chronic indwelling Juarez catheter Discharge Disposition: Home - Self Care Allergies Active Allergy Reactions Criticality Noted Date Comments Cat Dander Itching 07/14/2016 documented as of this encounter (statuses as of 01/28/2024) Medications Medication Sig Dispensed Refills Start Date End Date Status Emotte IT Ultra 2 w/Device KitIndications:Type 2 diabetes mellitus with hemoglobin A1c goal of less than 7.5% ([facility]) Testing blood sugars twice daily Dx: E11.9 1 Kit 11 06/06/2021 Active Emotte IT Delica Lancets 30GIndications:Type 2 diabetes mellitus with hemoglobin A1c goal of less than 7.5% (HCC),Type 2 diabetes mellitus with polyneuropathy (HCC) Check BS once daily E11.9 100 Each 06/22/2021 Active Docusate Sodium 100 MG Oral Capsule (Colace) Take 1 Capsule (100 mg) by mouth in the morning and 1 Capsule (100 mg) before bedtime. 10 Capsule 04/18/2022 Active Additional Information Patient not taking.Reported on 12/19/2023 Vitamin D 25 MCG (1000 UT) Oral Tablet Take 1 Tablet (1,000 Units) by mouth daily at noon. 30 Tablet 3 04/18/2022 Active Cinacalcet HCl 30 MG Oral Tablet (Sensipar)Indicatio ns:Hypercalcemia Take 1 tablet by mouth once daily 90 Tablet 3 12/21/2022 Active Additional Information Patient taking differently: 30 mg Oral Daily(AM), Reported on 10/07/2023 Iron 325 (65 Fe) MG Oral Tablet Take 1 Tablet by mouth every evening. 09/12/2022 Active Hydrocortisone 2.5 % External Cream Apply to eyebrows twice daily for 3-5 days at a time as needed for flares 60 g 2 01/19/2023 Active Emotte IT Vertyler In Vitro Strip (Glucose Blood)Indications:T ype 2 diabetes mellitus with polyneuropathy (HCC),Type 2 diabetes mellitus with hemoglobin A1c goal of less than 7.5% (HCC) USE STRIP TO CHECK GLUCOSE ONCE DAILY 100 Strip 3 07/16/2023 Active Nitroglycerin 0.4 MG Sublingual Tablet Sublingual (Nitrostat)Indicati ons:Stable angina ([facility]) Place 1 Tablet under the tongue every 5 minutes as needed for Pain, Chest. 25 Tablet 07/26/2023 Active Omeprazole 20 MG Oral Capsule Delayed Release (PriLOSEC)Indicatio ns:Gastroesophageal reflux disease, unspecified whether esophagitis present Take 1 Capsule by mouth in the morning. 1 hour before the first meal of the day. 30 Capsule 5 07/26/2023 Active Atorvastatin Calcium 40 MG Oral Tablet (Lipitor)Indication s:Hyperlipidemia with target LDL less than 100 Take 1 Tablet by mouth in the morning. 90 Tablet 3 08/14/2023 Active Ondansetron 4 MG Oral Tablet Disintegrating (Zofran)Indications :Nausea and vomiting, unspecified vomiting type Place 1 Tablet on tongue every 8 hours as needed for Nausea. dissolve on tongue. 20 Tablet 10/17/2023 Active Ketoconazole 2 % External Shampoo (Nizoral) APPLY TO SCALP AND EYEBROWS DAILY- LATHER, WAIT 5 MINUTES, THEN RINSE 120 mL 1 10/25/2023 Active Metoprolol Succinate ER 25 MG Oral Tablet Extended Release 24 Hour (toPROL XL) Take 0.5 Tablets by mouth every night at bedtime. 15 Tablet 5 10/29/2023 Active Finasteride 5 MG Oral Tablet (Proscar)Indication s:BPH with obstruction/lower urinary tract symptoms Take 1 Tablet by mouth in the morning. 90 Tablet 3 11/12/2023 Active Triamcinolone Acetonide 0.1 % External Cream (Aristocort) Apply to rash on abdomen twice daily as needed 80 g 11/23/2023 Active Warfarin Sodium 5 MG Oral Tablet (Coumadin) Take 1 Tablet by mouth every evening. Or as directed by anticoagulation clinic 90 Tablet 11/28/2023 Active AZO Cranberry 250-30 MG Oral Tablet Take by mouth every evening. Active Metamucil 48.57 % Oral Powder (Psyllium) Take by mouth every evening. Active DULoxetine HCl 60 MG Oral Capsule Delayed Release Particles (Cymbalta)Indicatio ns:Depression with anxiety Take 1 capsule by mouth in the morning 90 Capsule 12/27/2023 Active glipiZIDE ER 5 MG Oral Tablet Extended Release 24 Hour (glipiZIDE XL)Indications:Type 2 diabetes mellitus with hemoglobin A1c goal of less than 7.5% ([facility]) Take 1 Tablet by mouth in the morning. With breakfast.. 90 Tablet 01/04/2024 Active Metoclopramide HCl 5 MG Oral Tablet (Reglan)Indications :Nausea and vomiting, unspecified vomiting type Take 1 Tablet by mouth in the morning and 1 Tablet at noon and 1 Tablet before bedtime. 30 minutes before meals. 90 Tablet 5 01/04/2024 Active Polyethylene Glycol 3350 17 GM Oral Packet (MiraLax) Take 1 Packet by mouth every other day. Active metFORMIN HCl 1000 MG Oral Tablet (Glucophage) TAKE 1 TABLET BY MOUTH TWICE DAILY WITH BREAKFAST AND WITH DINNER 180 Tablet 01/12/2024 Active Tamsulosin HCl 0.4 MG Oral Capsule (Flomax) Take 2 Capsules by mouth at bedtime. 60 Capsule 01/14/2024 Active Midodrine HCl 5 MG Oral Tablet (Proamatine)Indicat ions:Orthostatic hypotension Take 2 Tablets by mouth in the morning and 2 Tablets at noon and 2 Tablets in the evening. Do not take at bedtime.. 270 Tablet 3 01/14/2024 Active Amoxicillin-Pot Clavulanate 500-125 MG Oral Tablet (Augmentin) Take 1 Tablet by mouth in the morning and 1 Tablet at noon and 1 Tablet before bedtime. Do all this for 10 days. 30 Tablet 01/28/2024 02/07/20 24 Active documented as of this encounter (statuses as of 01/28/2024) Active Problems Problem Noted Date Diagnosed Date Near syncope 01/09/[address] 01/09/2024 Hypomagnesemia 01/09/2024 Diarrhea 01/09/2024 Loss of weight 01/09/2024 Acute urinary retention 01/09/2024 Other constipation 01/09/2024 Dysuria 11/30/2023 Retention of urine 11/08/2023 Dysautonomia 07/26/2023 Osteoporosis 07/06/2021 Orthostatic hypotension 05/25/2021 S/P right hip fracture 09/01/2020 Unspecified injury at unspec ified level of cervical spinal cord, sequela 07/19/2020 Hyperparathyroidism 03/27/2019 Anticoagulated on warfarin 12/16/2018 Complicated UTI (urinary tract infection) 2018 Ambulatory dysfunction 12/04/2018 History of DVT (deep vein thrombosis) 10/24/2018 History of pulmonary embolism 10/24/2018 Essential hypertension with goal blood pressure less than 130/80 02/23/2016 Hyperlipidemia with target LDL less than 100 BPH with obstruction/lower urinary tract symptom s 11/24/2013 Depression with anxiety 07/13/2009 Type 2 diabetes mellitus wit h hemoglobin A1c goal of less than 7.5% 07/13/2009 Overview: ICD-10 update of inactive term History of Hodgkin's disease 05/04/2008 Type 2 diabetes mellitus with polyneuropathy documented as of this encounter (statuses as of 01/28/2024) Resolved Problems Problem Noted Date Diagnosed Date Resolved Date Subdural hematoma 09/09/2023 10/10/2023 Paraplegia 08/23/2022 10/10/2023 Syncope and collapse 04/15/2022 024 Clavicle fracture 04/15/2022 10/10/2023 Elevated lactic acid level 04/15/2022 0 10/10/2023 Permanent atrial fibrillation 12/19/2021 06/09/2022 Supratherapeutic INR 11/26/2021 022 COVID-19 virus infection 11/14/2021 Chest pain 05/25/2021 05/26/2021 Non-Hodgkin lymphoma, unspec ified, unspecified site 09/27/2020 04/11/2021 Fall 09/01/2020 10/10/2023 Hodgkin lymphoma, unspecifie d, unspecified site 12/16/2018 04/11/2019 Severe dehydration 12/16/2018 08 9 Hypercalcemia 12/16/2018 10/10/2023 Lactic acidosis 12/16/2018 11/30/2021 Pressure injury, unstageable 12/16/2018 03/27/2019 Quadriplegia 12/05/2018 06/09/2022 Generalized weakness 12/04/2018 024 Severe malnutrition 12/01/2018 12/06/19 19 Acute venous embolism and th rombosis of unspecified deep vessels of lower extremity 05/04/2008 08/23/2016 documented as of this encounter (statuses as of 01/28/2024) Immunizations Name Administration Dates Next Due COVID-19 mRNA, LNP-s, No Pre serve, 2-Dose Series (TechForward) 04/23/2021,08/09/2020,07/12/2020 Covid-19, Mrna, Lnp-s, Pf, B ivalent, 30 Mcg, IM, 12 yrs and above (TechForward) 05/19/2022 Pneumococcal Conjugate Vacc, 13 Valent (Prevnar) 02/23/2016 Pneumococcal Polysaccharide PPV23 (Pneumovax) 05/22/2017,09/25/2011 RSV Vac., Bivalent, Perfusio n F, Pf,0.5 Ml (Abrysvo) 04/10/2023 Season Influenza, Quad, PF, Adjuvanted, 65+ Yrs, IM (FLUAD) 03/11/2020 Seasonal Influenza, High Dos e, Trivalent, PF, IM (Fluzone HD) 01/14/2024 Seasonal Influenza, PF, 6 M & above, IM , (FluLaval or Fluzone) 03/07/2018,05/22/2017 Seasonal Influenza, Quadriva lent Hd (Fluzone Hd) 02/14/2023,03/16/2022,02/25/2021 Seasonal Influenza, Quadriva lent, No Preserve, IM 02/23/2016,02/10/2015 Seasonal Influenza, Trivalen t, (IIV3), with Preserv, (Fluzone) 04/15/2014,02/17/2013,04/03/2012,05/09 Seasonal Influenza, Trivalen t, Adjuvanted, 65+ YRS, PF, (Fluad) 03/05/2019 TD, Preservative Free 12/11/2019 TDAP, Age 7 and older, IM (Adacel) 06/03/2014 Varicella Zoster Vaccine (Adult) 09/27/2011 Zoster Vaccine Recombinant (Shingrix) 03/26/2019 ,12/30/2018 documented as of this encounter Social History Tobacco Use Types Packs/Day Years Used Date Smoking Tobacco: Never Passive Smoke Exposure: Never Smokeless Tobacco: Never Alcohol Use Standard Drinks/Week Comments Not Currently 0 (1 standard drink = 0.6 oz pur e alcohol) rarely PHQ-2 Answer Date Recorded PHQ Adult Total Score 0 10/15/2023 Hunger Vital Sign Answer Date Recorded Within the past 12 months, y ou worried that your food would run out before you got the money to buy more. Never true 10/30/19 24 Within the past 12 months, t he food you bought just didn't last and you didn't have money to get more. Never true 10/30/2023 Childcare Answer Date Recorded Do you feel overwhelmed with taking care of a child, family member or friend? No 10/30/2023 Does your family need help f inding childcare? (Household - for ages 0-17 years) Not on file 10/30/2023 Clothing Answer Date Recorded Have you been unable to get clothing when it was really needed? No 10/30/2023 Is your family able to get c lothes or diapers when needed? (Household - for ages 0-17 years) Not on file 10/30/2023 Personal Safety Answer Date Recorded Do you feel unsafe or have concerns for your saf ety? No 10/30/2023 Do you have concerns for you r family's safety? (Household - for ages 0-17 years) Not on file 10/30/2023 Utilities Answer Date Recorded Do you have trouble paying y our heating, water, or electric bill? No 10/30/2023 Is your family able to pay t he heat, water, or electric bill? (Household - for ages 0-17 years) Not on file 10/30/2023 Does your family have access to good internet? (Household - for ages 0-17 years) Not on file 10/30/2023 Employment Status Answer Date Recorded Are you unemployed or without regular income? No 10/30/2023 Does the household have a [facility] source of income? (Household - for ages 0-17 years) Not on file 10/30/2023 Social Connections Answer Date Recorded How often do you feel lonely or isolated from th ose around you? Never 10/30/2023 Financial Resource Strain Answer Date R ecorded Do you have any trouble payi ng for your medications, or do you think you might in the future? No 10/30/2023 Does your family have troubl e paying for medicine? (Household - for ages 0-17 years) Not on file 10/30/2023 Transportation Needs Answer Date Record ed READ ONLY Do you have troubl e getting a ride to medical visits or work? Never True 10/30/2023 Does your family have a hard time getting a ride to doctors visits? (Household - for ages 0-17 years) Not on file 10/30/2023 Has lack of transportation k ept you from medical appointments, meetings, work, or from getting things needed for daily living? Check all that apply. No 10/30/2023 Do you (or your family) have trouble finding or paying for a ride (transportation)? (Household - for ages 0-17 years) Not on file 10/30/2023 Housing Stability Answer Date Recorded Do you currently live in a s helter or have no steady place to sleep at night? No 10/30/2023 READ ONLY Do you think you a re at risk of becoming homeless? No 10/30/2023 Does your family worry about paying for your home or becoming homeless? (Household - for ages 0-17 years) Not on file 0 10/30/2023 Are you homeless or worried that you might be in the future? No 10/30/2023 Are you (or your family) octavio eless or worried that you might be in the future? (Household - for ages 0-17 years) Not on file Food Insecurity Answer Date Recorded Do you need food for this week? No 10/30/2023 Are you able to get enough f ood for your family? (Household - for ages 0-17 years) Not on file 10/30/2023 Does your family need food t his week? (Household - for ages 0-17 years) Not on file 10/30/2023 Do you always have enough fo od for your family? (Household - for ages 0-17 years) Not on file 10/30/2023 Sex and Gender Information Value Date Recorded Sex Assigned at Male 12/05/2018 2:23 PM EDT Gender Identity Male 12/05/2018 2:23 PM EDT Sexual Orientation Straight 12/05/2018 2: 23 PM EDT Job Start Date Occupation Industry Not on file Not on file Not on file documented as of this encounter Last Filed Vital Signs Vital Sign Reading Time Taken Comments Blood Pressure 166/80 01/28/2024 6:00 AM EDT Pulse 65 01/28/2024 6:00 AM EDT Temperature 36 C (96.8 F) 01/28/2024 4:23 AM EDT Respiratory Rate 16 01/28/2024 6:00 AM EDT Oxygen Saturation 98% 01/28/2024 4:23 AM EDT Inhaled Oxygen Concentration - - Weight 68.3 kg (150 lb 8 oz) 01/28/2024 4:23 AM EDT Height 175.3 cm (5' 9") 01/28/2024 4:23 AM EDT Body Mass Index 22.22 01/28/2024 4:23 AM EDT documented in this encounter Functional Status Functional Status Response Date of Assess ment Are you deaf or do you have serious difficulty hearing? Yes-AFOGNAK; no hearing aids 01/09/2024 Are you blind or do you have serious difficulty seeing, even when wearing glasses? No 01/09/2024 Do you have serious difficul ty walking or climbing stairs? (5 years old or older) Yes 01/09/2024 Do you have difficulty dress ing or bathing? (5 years old or older) Yes 01/09/2024 Because of a physical, menta l, or emotional condition, do you have difficulty doing errands alone such as visiting a doctor s office or shopping? (15 years old or older) Yes 01/09/2024 Cognitive Status Response Date of Assessm ent Because of a physical, menta l, or emotional condition, do you have serious difficulty concentrating, remembering, or making decisions? (5 years old or older) No 01/09/2024 documented as of this encounter ED Notes * Bina Armstrong MD - 01/28/2024 4:35 AM EDT HISTORY OF PRESENT ILLNESS Lewis Alarcon is a 73 year old male who presents to the ED for evaluation of Urinary Tract Infection Symptoms. The patient was seen at 01/28/24427. The patient says he feels like he has a urinary tract infection. Has pain down below. Started complaining of this yesterday. Has chronic indwelling Juarez catheter. He feels like the catheter is draining appropriately. However says that the patient told her he feels like he needs to push to get his urine to come out. Per review of EMR, the catheter was last changed on January 08. The patient is scheduled for urological procedure by Dr. Chaudhari in February and needs to have indwelling catheter until then. Ongoing issues with diarrhea and constipation. History provided by: patient and spouse History provided by comment: Ciara Urinary Tract Infection Symptoms Associated symptoms: abdominal pain (Lower abdomen/groin) and diarrhea Associated symptoms: no fever, no nausea and no vomiting Review of Systems Constitutional: Negative for fever. HENT: Negative for congestion, ear pain, rhinorrhea and sore throat. Respiratory: Negative for cough and shortness of breath. Cardiovascular: Negative for chest pain and leg swelling. Gastrointestinal: Positive for abdominal pain (Lower abdomen/groin), constipation and diarrhea. Negative for nausea and vomiting. Musculoskeletal: Positive for myalgias (Arms and legs status post an accident 5 years ago, ongoing). Negative for back pain. Skin: Negative for rash. Neurological: Negative for dizziness, weakness, light-headedness and headaches. All other systems reviewed and are negative. The patient's allergies, past history, and medications were reviewed. PHYSICAL EXAM Initial Vitals (see all): BP 129/74 | Pulse 92 | Resp 16 | Temp 96.8 | O2 98 %Weight 68.27 kg | Height 175.3 cm | BMI 22.22 kg/m2 Initial Pain Assessment (see all): 4 (moderate pain)/10, location: pain in lower abd ([facility] Adult Scale 0-10) Physical Exam Vitals and nursing note reviewed. Constitutional: General: He is in acute distress (Moderate). HENT: Head: Normocephalic and atraumatic. Neck: Thyroid: No thyromegaly. Trachea: No tracheal deviation. Cardiovascular: Rate and Rhythm: Normal rate and regular rhythm. Heart sounds: No murmur heard. No gallop. Pulmonary: Effort: Pulmonary effort is normal. No respiratory distress. Breath sounds: Normal breath sounds. Abdominal: General: Bowel sounds are normal. There is no distension. Palpations: Abdomen is soft. Tenderness: There is no abdominal tenderness. There is guarding (Suprapubic). There is no rebound. Genitourinary: Comments: Urinary catheter with dark radha slightly cloudy urine noted Musculoskeletal: General: No swelling, tenderness or deformity. Cervical back: Normal range of motion and neck supple. No muscular tenderness. Right lower leg: No edema. Left lower leg: No edema. Comments: Limited range of motion, seems somewhat stiff Lymphadenopathy: Cervical: No cervical adenopathy. Skin: General: Skin is warm and dry. Coloration: Skin is not cyanotic. Findings: No rash. Nails: There is no clubbing. Neurological: Mental Status: He is alert and oriented to person, place, and time. GCS: GCS eye subscore is 4. GCS verbal subscore is 5. GCS motor subscore is 6. Psychiatric: Mood and Affect: Mood normal. Affect is blunt. Speech: Speech normal. Behavior: Behavior normal. Behavior is cooperative. PROCEDURES AND TREATMENTS ED Orders | ED Results MEDICAL DECISION MAKING Nursing notes and vital signs were reviewed. ED Course as of 01/28/24 0655 Mon Jan 28, 2024 0644 Urine suspicious for infection. Patient had Klebsiella pneumoniae UTI in November and in December, susceptible to antibiotics except for nitrofurantoin [] 0649 Reassessment: Patient has remained stable. Results and plan for disposition discussed with patient and family [] ED Course User Index [] Bina Armstrong MD Differential Diagnoses Based on my history, physical exam, and evaluation, the differential includes, but is not limited, to the following diagnoses: Cystitis, doubt pyelonephritis. Dislodged Juarez, obstructed Juarez. Amount and/or Complexity of Data Reviewed Independent Historian: spouse Labs: ordered. Risk Prescription drug management. Clinical Impressions Complicated UTI (urinary tract infection) Chronic indwelling Juarez catheter Disposition Discharged. The patient's condition at disposition was: stable. Discharge Medications Disp Refills Start End Amoxicillin-Pot Clavulanate 500-125 MG Oral Tablet (Augmentin) 30 Tablet 0 01/28/2024 02/07/2024 Sig - Route: Take 1 Tablet by mouth in the morning and 1 Tablet at noon and 1 Tablet before bedtime. Do all this for 10 days. - Oral Class: ePrescribing Renewals Renewal requests to authorizing provider (Bina Armstrong MD) <b>prohibited</b> Bina Armstrong This chart was completed in part utilizing [employer] Speech Voice Recognition Software. Grammatical errors, random word insertions, prounoun errors, and incomplete sentences are an occasional consequence of this system due to software limitations, ambient noise, and hardware issues. Any formal questions or concerns about the content, text, or information contained within the body of this dictation should be directly addressed to the provider for clarification. Bina Armstrong MD 01/28/2024 6:55 AM * Quan Decker RN - 01/28/2024 4:24 AM EDT Pt complaining of pain in the lower abd. Pt thinks that he has a UTI and the pain feels similar. Pthas a juarez in place and reports to feeling like has to bear down to empty his bladder. Cloudy yellow urine noted in the drainage bag. documented in this encounter Miscellaneous Notes * Pt Handout (on AVS) - Bina Armstrong MD - 01/28/2024 6:46 AM EDT Images from the original note were not included. [id number] Catheter-Linked Urinary Tract Infections A catheter-linked urinary tract infection (CAUTI) is an infection of the urinary tract. It's causedby bacteria that get into the urinary tract when a urinary catheter is used. This is a tube that?s placed into the bladder to drain urine. The urinary tract This tract includes the kidneys, ureters, bladder, and urethra. The kidneys filter blood and make urine. The ureters carry urine from the kidneys to the bladder. The bladder stores urine. The urethracarries urine from the bladder to the outside of the body. What is a urinary catheter? A urinary catheter is a thin, flexible tube. It's placed in the bladder to drain urine. Urine flowsthrough the tube into a collecting bag outside of the body. There are different types of urinary catheters. The most common type is an indwelling catheter. This is also known as a urethral catheter. This is because it?s placed into the bladder through the urethra. It's also called a Juarez catheter. A small balloon keeps the catheter in place inside the bladder. Why is a urinary catheter needed? A urinary catheter is needed for any of these: You can't move around for a long time after surgery or injury. You have a surgery that requires you to be under anesthesia for a long time. You have a blockage in your urinary system. Your healthcare provider needs to precisely measure the amount of urine you pass. The function of your kidneys and bladder is being tested. In most cases, the urinary catheter is short term. You'll need it only until the problem that needsit is taken care of. How does a CAUTI develop? Bacteria can get into the urinary tract as the catheter is put into the urethra. Bacteria can also get into the urinary tract while the catheter is in place. The common bacteria that cause a CAUTI are ones that live in the intestine. These bacteria don?t normally cause problems in the intestine. But when they get into the urinary tract, an infection can occur. Why is a CAUTI of concern? Left untreated, a CAUTI can lead to health problems. These problems may include infections of the bladder, prostate, and kidney. A CAUTI can keep you in the hospital longer. If the infection is not treated in time, you may have serious health problems. What are the symptoms of a CAUTI? Tell a healthcare provider or seek medical care right away if you or a loved one has any of these symptoms: A burning feeling, pressure, or pain in your lower belly (abdomen) Fever or chills Urine in the collecting bag that is cloudy or bloody (pink or red) Burning feeling in the urethra or genital area Aching in your back (by the kidneys) Nausea and vomiting Confusion, sleepiness, or a change in behavior (mainly affects older people) Sometimes you may not have any symptoms. But you may still have a CAUTI. How is a CAUTI diagnosed? Your healthcare provider will order tests if you have symptoms of a CAUTI. These include a urine test and blood tests. How is a CAUTI treated? Treatment may involve any of these: Antibiotics. Your healthcare provider will likely prescribe antibiotics if you have symptoms. Be aware that if you don?t have symptoms, you may not be given antibiotics. This is to prevent an increase in bacteria that can?t be killed by certain antibiotics. Removing the catheter. The catheter will be taken out when your healthcare provider decides it?sno longer needed. This often helps stop the infection. Changing the catheter. If you still need a catheter, the old one will be taken out. A new one will be put in. This may help stop the infection. How do hospital and long-term facility staff prevent CAUTIs? To keep patients from getting a CAUTI, staff members take these steps: Prescribe a catheter only when it?s needed. It's taken out as soon as it?s no longer needed. Wash their hands or use an alcohol-based hand cleanser before doing catheter care. Use a clean (sterile) method when placing the catheter into the urinary tract. To do that, before putting the catheter in, the caregiver washes their hands with soap and water. Then they put on sterile gloves. A sterile catheter kit that has cleansers is used to cleanse the genital area. Hang the bag lower than your bladder. This helps stop urine from flowing back into your bladder. Check that the bag is emptied regularly. Do clean intermittent catheterization. This means a catheter is put in so you can urinate. It's then taken out right away. It may be done several times a day. What you can do as a patient to prevent a CAUTI You can help prevent a CAUTI by doing the following: Every day, ask your healthcare provider how long you need to have the catheter. The longer you have a catheter, the higher your chance of getting a CAUTI. Ask a caregiver to clean their hands and put on gloves before touching your catheter. If you?ve been taught how to care for your catheter, wash your hands before and after each session. Check that your bag is lower than your bladder. If it?s not, tell your caregiver. Don?t disconnect the catheter and drain tube. Doing so lets germs get into the catheter. Cleaning the genital and perineal areas is very important. It helps decrease bacteria around thecatheter. Ask your healthcare provider what you should use and how often to clean these areas. If you are discharged with an indwelling catheter Before you leave the hospital, make sure you know how to care for your catheter at home. Ask your healthcare provider how long you need the catheter. Also ask if you need to make a follow-up appointment to have the catheter taken out. Always use a clean (sterile) method when caring for your catheter. Wash your hands before and after doing any catheter care. Call your healthcare provider or seek medical care right away if you develop symptoms of a CAUTI(see above). Last Reviewed Date: 02/11/202219991221-2587 [employer]. All rights reserved. This information is not intended as a substitute for professional medical care. Always follow your healthcare professional's instructions. documented in this encounter Plan of Treatment Upcoming Encounters Date Type Department Care Team (Late st Contact Info) Description 01/30/2024 12:20 PM EDT Office Visit [facility] [place] [address] [phone] Krystina Louis CRNP [address] [place] [address] 02/05/2024 5:50 PM EDT Anticoagulation Pharmacy, [facility] [address] [address] Pharmacist2, [facility] [address] [place] [address] 02/21/2024 10:30 AM EDT Office Visit Urology Aleidastephen RinaldiMiaAgar [address] [address] Nikolai Chaudhari MD [address] [place] [address] 02/25/2024 11:20 AM EDT Office Visit Family Practice, [facility] [address] [phone] Kaiser Amanda MD [address] [address] 03/04/2024 2:45 PM EDT Office Visit [facility] [address] [place] [address] Laney Hogue MD [address] [place] [address] 03/05/2024 1:00 PM EDT Appointment Cardiac Studies, [address] [place] [address] 03/26/2024 8:00 AM EST Hospital Encounter [facility], Operating Room, [facility] - 4th Floor [facility] [phone] John Gordillo MD [address] [place] [address] 03/26/2024 8:00 AM EST - 03/26/2024 8:46 AM EST Surgery OR [facility], Operating Room, [facility] - 4th Floor 400 [facility] [place] [phone] John Gordillo MD [address] [address] COLONOSCOPY FLEXIBLE PROXIMAL DIAGNOSTIC 04/01/2024 12:30 PM EST Office Visit Gastroenterology, [facility] [place] [place] [phone] Thelma Jamil PA-C [facility] [address] 06/12/2024 2:00 PM EST Office Visit Cardiology, [facility] 400 [facility] [place] [address] Clarissa Rapp PA-C 400 [facility] [address] 10/21/2024 9:15 AM EDT Appointment Radiology, [facility] [address] [facility] [place] [address] 10/29/2024 9:45 AM EDT Office Visit Urology Aleida Rinaldi [facility] [address] [facility] [address] [address] Bert Boogie Jr., MD [address] [place] [address] Pending Results Name Type Priority Associated Diagnoses Date /Time CULTURE, URINE, QUANTITATIVE Lab STAT 01/28/2024 5:57 AM EDT Scheduled Orders Name Type Priority Associated Diagnoses Orde r Schedule CULTURE, URINE, QUANTITATIVE Lab STAT One Time for 1 Occurrences starting 01/28/2024 until 01/28/2024 Scheduled Procedures Name Priority Associated Diagnoses Date/Ti me COLONOSCOPY FLEXIBLE PROXIMA L DIAGNOSTIC History of colonic polyps Abdominal pain, generalized Change in bowel habits Early satiety Weight loss Iron deficiency anemia, unspecified iron deficiency anemia type 03/26/2024 8:00 AM EST ESOPHAGOGASTRODUODENOSCOPY ( EGD), FLEXIBLE, TRANSORAL, DIAGNOSTIC History of colonic polyps Abdominal pain, generalized Change in bowel habits Early satiety Weight loss Iron deficiency anemia, unspecified iron deficiency anemia type 03/26/2024 8:00 AM EST Health Maintenance Due Date Last Done Comments Cologuard 11/28/1995 Fecal Occult Blood Test 11/28/1995 Sigmoidoscopy 11/28/1995 Adult Wellness Visit 09/28/2023 09/27/2022 Diabetic Eye Exam 12/22/2023 12/21/2022, , 12/21/2022, Additional history exists HOME BP CUFF VALIDATION YEARLY 12/27/2023 12/26/2022 COVID-19 Vaccine ( season) 2024 05/19/2022, 04/23/2021, 08/09/2020, Additional history exists HbA1c 05/09/2024 11/08/2023, 07/12, 01/23/2023, Additional history exists B-12 07/25/2024 07/26/2023, 02/13, 11/15/2021, Additional history exists Diabetic Foot Exam 07/25/2024 07/26/2023, 0 06/09/2022, 04/11/2021, Additional history exists Depression Monitoring 10/14/2024 10/15/2023 Albumin/Creatinine Ratio 10/17/20242 024, 01/10/2023, 07/07/2021, Additional history exists DXA Scan 01/25/2025 01/25/2023, 0 01/2021, 12/10/2018 GFR 01/27/2025 01/28/2024, 01/12, 01/15/2024, Additional history exists Colonoscopy 03/16/2025 03/16/2022, 1107/2021, 08/06/2009 Colorectal Cancer Screening 03/16/2025 Lipid Panel 02/27/2028 02/26/2023, 1208/2021, 05/26/2021, Additional history exists DTap/Tdap Vaccines (3 - Td or Tdap) 12/10/2029 12/11/2019, 06/03/2014 Pneumococcal Vaccine: 65+ Years Completed 05/22/2017, 02/23/2016, 09/25/2011 Zoster Vaccines Completed 03/26/2019, 12/12, 09/27/2011 VITAMIN D LEVEL ONCE IN A LIFETIME-USE SMARTSET# [id number] Completed 07/26/2023, 02/26/2023, 01/23/2023, Additional history exists Influenza Vaccine (FLU shot) Completed 06/2023, 02/14/2023, 03/16/2022, Additional history exists HPV (Gardasil) Vaccine Aged Out No lo nger eligible based on patient's age to complete this topic Hepatitis B Vaccine Aged Out No longe r eligible based on patient's age to complete this topic MENINGOCOCCAL (MENACTRA/MENVEO) Aged Out No longer eligible based on patient's age to complete this topic documented as of this encounter Medical Devices Implanted Type Area Straightener Hand Device Identifier Shelf Expiration Date Model / Serial / Lot Cement Bone Simplex Hv & G - [id number] Implanted:Qty: 2 on 09/02/2020 by Gianni Hubbard MD at OR [facility] Right: Hip LUDY : ORTHOPAED[employer] 08/11/2021 [id number] / / [id number] Spacer Ring Aclde Distal Lg 14 - [id number] Implanted:Qty: 1 on 09/02/2020 by Gianni Hubbard MD at OR [facility] Right: Hip LUDY : ORTHOPAEDICS 11/25/2024 [id number] / / Accolade C 127 6 37/158 - [id number] Implanted:Qty: 1 on 09/02/2020 by Gianni Hubbard MD at OR [facility] Right: Hip LUDY : ORTHOPAEDICS 05/29/2023 [id number] / / [id number] Hip Cocr Lfit Head V40 28/+4 - [id number] Implanted:Qty: 1 on 09/02/2020 by Gianni Hubbard MD at OR [facility] Right: Hip LUDY : ORTHOPAEDICS 11/15/2024 [id number] / / [id number] Hip Head Bipol r [facility] 28x52 - [id number] Implanted:Qty: 1 on 09/02/2020 by Gianni Hubbard MD at OR [facility] Right: Hip LUDY : ORTHOPAEDICS 11/25/2024 1-52-28 / / [id number] Lens Intraoc 17.5 - [id number] - [id number] Implanted:Qty: 1 on 03/23/2022 by Rad Morgan MD at OR [facility] Left: Eye BAUSCH & LOMB 10/11/2026 [id number] / [id number] / [id number] Lens Intraoc 18.0 - [id number] - [id number] Implanted:Qty: 1 on 03/30/2022 by Rad Morgan MD at OR [facility] Right: Eye BAUSCH & LOMB 01/11/2027 [id number] / [id number] / [id number] documented as of this encounter Procedures Procedure Name Priority Date/Time Associated Diagnosis Comments URINALYSIS, REFLEX TO CULTURE STAT 01/28/2024 5:57 AM EDT URINALYSIS, REFLEX TO CULTURE (CUP ONLY) STAT 01/28/2024 5:57 AM EDT URINALYSIS, REFLEX TO CULTURE (NOT FOR NEUTROPENIC PATIENTS) STAT 01/28/2024 5:57 AM EDT EXTRA RECINOS TOP Routine 01/28/2024 4:59 AM EDT EXTRA GREEN TOP WITH GEL Routine 01/28/2024 4:59 AM EDT EXTRA LIGHT BLUE TOP Routine 01/28/2024 4:59 AM EDT EXTRA TUBES Routine 01/28/2024 4:59 AM EDT DIFFERENTIAL, AUTOMATED STAT 01/28/2024 4:59 AM EDT BASIC METABOLIC PANEL STAT 01/28/2024 4:59 AM EDT CBC STAT 01/28/2024 4:59 AM EDT PT INR Add-on 01/28/2024 4:59 AM EDT CBC STAT 01/28/2024 4:59 AM EDT documented in this encounter Results * (ABNORMAL) URINALYSIS, REFLEX TO CULTURE (01/28/2024 5:57 AM EDT) Color, Urine Yellow Light Yellow, Yellow, Dark Yellow 01/28/2024 6:29 AM EDT LAB[facility]ATORY [facility] Clarity, Urine Clear Clear 01/28/2024 6:29 AM EDT LAB[facility] Glucose, Urine Negative Negative mg/dL 01/28/2024 6:29 AM EDT [facility] Bilirubin, Urine Small(A) Negative 01/28/2024 6:29 AM EDT LAB[facility] Ketone, Urine 15(A) Negative mg/dL 01/28/2024 6:29 AM EDT LAB[facility] Specific [place], Urine 1.024 1.003 - 1.030 01/28/2024 6:29 AM EDT [facility] Blood, Urine Large(A) Negative 01/28/2024 6:29 AM EDT [facility] pH, Urine 6.0 5.0 - 7.5 Units 01/28/2024 6:29 AM EDT LAB[facility] Protein, Urine >=300(A) Negative mg/dL 01/28/2024 6:29 AM EDT LAB[facility] Urobilinogen, Urine 1.0 0.2, 1.0 mg/dL 01/28/2024 6:29 AM EDT LAB[facility] Nitrite, Urine Positive(A) Negative 01/28/2024 6:29 AM EDT [facility] Esterase, Urine Small(A) Negative 01/28/2024 6:29 AM EDT LAB[facility] RBC, Urine 30-49(A) 0 - 2 /HPF 01/28/2024 6:29 AM EDT LAB[facility]ORY [facility] WBC, Urine 30-49(A) 0 - 2 /HPF 01/28/2024 6:29 AM EDT LAB[facility]ATORY [facility] Bacteria, Urine >200(A) 0 - 25 /HPF 01/28/2024 6:29 AM EDT LABORATORY [facility] Culture, Urine 01/28/2024 6:29 AM EDT LABORATORY [facility] Comment:Quantitative urine c ulture to be performed Urine Urine specimen obtained by clean catch procedure / Unknown Non-blood Collection / Unknown 01/28/2024 5:57 AM EDT 01/28/2024 6:05 AM EDT Bina Armstrong MD LAB URINE ORDERAB LES Performing Organization Address City/[facility] Co de Phone Number LABORATORY [address] [address] * URINALYSIS, REFLEX TO CULTURE (CUP ONLY) (01/28/2024 5:57 AM EDT) Urinalysis, Reflex to Culture Specimen Specimen collected and received 01/28/2024 8:02 AM EDT LABORATORY [facility] Urine Urine specimen obtained by clean catch procedure / Unknown Non-blood Collection / Unknown 01/28/2024 5:57 AM EDT 01/28/2024 6:05 AM EDT Bina Armstrong MD LAB URINE ORDERAB LES Performing Organization Address [facility] de Phone Number LABORATORY [address] [address] * (ABNORMAL) PT INR (01/28/2024 4:59 AM EDT) Prothrombin Time 30.0(H) 11.6 - 15.2 seconds 01/28/2024 5:28 AM EDT LABORATORY [facility] INR 2.8(H) 0.8 - 1.2 01/28/2024 5:28 AM EDT LABORATORY [facility] Blood Venous blood specimen / Unknown 01/28/2024 4:59 AM EDT 01/28/2024 5:03 AM EDT Narrative LABORATORY [facility] - 01/28/2024 5:28 AM EDT Warfarin Therapy INR: 2.0-3.0 conventional anticoagulation INR: 2.5-3.5 high intensity anticoagulation Bina Armstrong MD LAB BLOOD ORDERAB LES Performing Organization Address [facility] de Phone Number LABORATORY [address] [address] * EXTRA RECINOS TOP (01/28/2024 4:59 AM EDT) Blood Venous blood specimen / Unknown 01/28/2024 4:59 AM EDT 01/28/2024 5:03 AM EDT Bina Armstrong MD LAB BLOOD ORDERAB LES Performing Organization Address [facility] de Phone Number LABORATORY [address] [address] * EXTRA GREEN TOP WITH GEL (01/28/2024 4:59 AM EDT) Blood Venous blood specimen / Unknown 01/28/2024 4:59 AM EDT 01/28/2024 5:03 AM EDT Bina Armstrong MD LAB BLOOD ORDERAB LES Performing Organization Address [facility] de Phone Number LABORATORY [address] [address] * EXTRA LIGHT BLUE TOP (01/28/2024 4:59 AM EDT) Blood Venous blood specimen / Unknown 01/28/2024 4:59 AM EDT 01/28/2024 5:03 AM EDT Bina Armstrong MD LAB BLOOD ORDERAB LES Performing Organization Address [facility] de Phone Number LABORATORY [address] [address] * DIFFERENTIAL, AUTOMATED (01/28/2024 4:59 AM EDT) Pathologist [facility] WBC 7.70 4.00 - 10.80 K/uL 01/28/2024 5:09 AM EDT LABORATORY [facility] Neutrophils % 53.6 40.0 - 75.0 % 01/28/2024 5:09 AM EDT LABORATORY [facility] Lymphocytes % 32.7 18.0 - 42.0 % 01/28/2024 5:09 AM EDT LAB[facility]ATORY [facility] Monocytes % 9.2 1.0 - 11.0 % 01/28/2024 5:09 AM EDT LAB[facility]ATORY [facility] Eosinophils % 3.4 0.0 - 6.0 % 01/28/2024 5:09 AM EDT LABORATORY GL Basophils % 0.8 0.0 - 2.0 % 01/28/2024 5:09 AM EDT LABORATORY GL Immature Granulocytes % 0.3 0.0 - 2.0 % 01/28/2024 5:09 AM EDT LABORATORY [facility] Absolute Neutrophils 4.13 1.80 - 7.70 K/uL 01/28/2024 5:09 AM EDT LABORATORY [facility] Absolute Lymphocytes 2.52 1.00 - 4.80 K/ul 01/28/2024 5:09 AM EDT LABORATORY [facility] Absolute Monocytes 0.71 0.00 - 1.10 K/uL 01/28/2024 5:09 AM EDT LABORATORY [facility] Absolute Eosinophils 0.26 0.00 - 0.70 K/uL 01/28/2024 5:09 AM EDT LABORATORY [facility] Absolute Basophils 0.06 0.00 - 0.20 K/uL 01/28/2024 5:09 AM EDT LABORATORY GL Absolute Immature Granulocytes 0.02 0.00 - 0.20 K/uL 01/28/2024 5:09 AM EDT LABORATORY [facility] Blood Venous blood specimen / Unknown Venipuncture / Unknown 01/28/2024 4:59 AM EDT 01/28/2024 5:02 AM EDT Bina Armstrong MD LAB BLOOD ORDERAB LES LABORATORY [address] [address] * (ABNORMAL) CBC (01/28/2024 4:59 AM EDT) Pathologist [facility] WBC 7.70 4.00 - 10.80 K/uL 01/28/2024 5:09 AM EDT LABORATORY GL RBC 3.85 4.50 - 5.25 M/uL 01/28/2024 5:09 AM EDT LABORATORY GL HGB 11.8(L) 14.0 - 16.8 g/dL 01/28/2024 5:09 AM EDT LABORATORY GL HCT 35.8(L) 40.0 - 48.4 % 01/28/2024 5:09 AM EDT LABORATORY GL MCV 93.0 82.0 - 99.5 fL 01/28/2024 5:09 AM EDT LABORATORY GL MCH 30.6 27.0 - 34.0 pg 01/28/2024 5:09 AM EDT LABORATORY GL MCHC 33.0 32.0 - 36.0 g/dL 01/28/2024 5:09 AM EDT LABORATORY [facility] RDW 15.7 11.5 - 15.5 % 01/28/2024 5:09 AM EDT LABORATORY [facility] PLT 234 140 - 400 K/uL 01/28/2024 5:09 AM EDT LABORATORY [facility] MPV 8.8 6.6 - 11.1 fL 01/28/2024 5:09 AM EDT LABORATORY [facility] nRBCs 0 <=0 /100 WBCs 01/28/2024 5:09 AM EDT LABORATORY [facility] Blood Venous blood specimen / Unknown Venipuncture / Unknown 01/28/2024 4:59 AM EDT 01/28/2024 5:02 AM EDT Bina Armstrong MD LAB BLOOD ORDERAB LES LABORATORY [address] [address] * BASIC METABOLIC PANEL (01/28/2024 4:59 AM EDT) BUN 17 6 - 20 mg/dL 01/28/2024 5:27 AM EDT LABORATORY GL CREATININE 1.0 0.6 - 1.2 mg/dL 01/28/2024 5:27 AM EDT LABORATORY GL EGFR 78 >=60 mL/min 01/28/2024 5:27 AM EDT LABORATORY GL Comment:eGFR is calculated b ased on the CKD-EPI 2020 equation. SODIUM 137 135 - 146 mmol/L 01/28/2024 5:27 AM EDT LAB[facility] POTASSIUM 4.0 3.5 - 5.1 mmol/L 01/28/2024 5:27 AM EDT LAB[facility]ORY [facility] CHLORIDE 100 98 - 107 mmol/L 01/28/2024 5:27 AM EDT LAB[facility]ORY [facility] CO2 24 22 - 32 mmol/L 01/28/2024 5:27 AM EDT LAB[facility] ANION GAP 13 7 - 15 mmol/L 01/28/2024 5:27 AM EDT LAB[facility]ORY [facility] GLUCOSE 87 70 - 120 mg/dL 01/28/2024 5:27 AM EDT LAB[facility] CALCIUM 9.0 8.4 - 10.2 mg/dL 01/28/2024 5:27 AM EDT LAB[facility] Blood Venous blood specimen / Unknown Venipuncture / Unknown 01/28/2024 4:59 AM EDT 01/28/2024 5:02 AM EDT Bina Armstrong MD LAB BLOOD ORDERAB LES [facility] Organization Address City/State/[facility] Co de Phone Number LAB[facility]ATORY [facility] [address] [place] [id number] documented in this encounter Visit Diagnoses Diagnosis Complicated UTI (urinary tract infection)- Primary Urinary tract infection, site not specified Chronic indwelling Juarez catheter Other postprocedural status History of colonic polyps Personal history of colonic polyps Abdominal pain, generalized Change in bowel habits Other symptoms involving digestive system Early satiety Weight loss Loss of weight Iron deficiency anemia, unspecified iron deficiency anemia type documented in this encounter Administered Medications Inactive Administered Medications - up to 3 most recent administrations Medication Order MAR Action Action Date Dose Rate Site amoxicillin-clavulanate (Augmentin) tab 500 mg 500 mg, Oral, ONCE, On Sun01/28/24 at 0730, For 1 dose Given 01/28/2024 7:16 AM EDT 500 mg fentaNYL (PF) inj 50 mcg 50 mcg, Intravenous, ONCE, On Sun01/28/24 at 0515, For 1 dose, When given IV Push its recommended that the dose be given over 3 to 5 minutes. Given 01/28/2024 5:12 AM EDT 50 mcg NSS 0.9% 1,500 mL bolus infusion IV Piggyback, at 1,500 mL/hr Administer over 60 Minutes, ONCE, 1 dose, On Sun01/28/24 at 0515 New Bag 01/28/2024 5:11 AM EDT 1,500 mL 1000 mL/hr ondansetron (Zofran) inj 4 mg 4 mg, IV Push, ONCE, On Sun01/28/24 at 0515, For 1 dose Given 01/28/2024 5:11 AM EDT 4 mg documented in this encounter Active and Recently Administered Medications Times are shown in EDT. Scheduled Medication Order 01/26/2024 01/27/2024 01/28/2024 amoxicillin-clavulanate (Augmentin) tab 500 mg (COMPLETED) 500 mg, Oral, ONCE, On Sun01/28/24 at 0730, For 1 dose 0716 (Given - Provid er: Cynthia Narayan RN) fentaNYL (PF) inj 50 mcg (COMPLETED) 50 mcg, Intravenous, ONCE, On Sun01/28/24 at 0515, For 1 dose, When given IV Push its recommended that the dose be given over 3 to 5 minutes. 0512 (Given - Provid er: Cynthia Narayan RN) NSS 0.9% 1,500 mL bolus infusion (COMPLETED) IV Piggyback, at 1,500 mL/hr Administer over 60 Minutes, ONCE, 1 dose, On Sun01/28/24 at 0515 0511 (New Bag - Prov ider: Cynthia Narayan RN)0659 (Stopped - Provider: Cynthia Narayan RN) ondansetron (Zofran) inj 4 mg (COMPLETED) 4 mg, IV Push, ONCE, On Sun01/28/24 at 0515, For 1 dose 0511 (Given - Provid er: Cynthia Narayan RN) documented in this encounter Additional Health Concerns Infection Onset Date Last Indicated Resolved Time Gastrointestinal Rule-Out 12/09/2023 01/09/2024 C. difficile 01/19/2024 01/19/2024 documented as of this encounter Advance Directives * Full Code (Latest Code Status on File) Date Activated Date Inactivated Comments 01/09/2024 1:29 PM 01/14/2024 6:43 PM This order re flects the patients wishes and were consensually agreed upon. Question Answer Comments Discussion of Advance Directives occurred with: Patient * Full Code Date Activated Date Inactivated Comments 11/07/2023 10:10 PM 11/08/2023 7:09 PM This order reflects the patients wishes and were consensually agreed upon. Question Answer Comments Discussion of Advance Directives occurred with: Patient * Full Code Date Activated Date Inactivated Comments 10/06/2023 10:52 PM 10/11/2023 2:57 PM This order reflects the patients wishes and were consensually agreed upon. Question Answer Comments Discussion of Advance Directives occurred with: Patient * Full Code Date Activated Date Inactivated Comments 09/09/2023 8:14 AM 09/11/2023 7:16 PM This order r eflects the patients wishes and were consensually agreed upon. Question Answer Comments Discussion of Advance Directives occurred with: Patient * Full Code Date Activated Date Inactivated Comments 04/15/2022 10:45 PM 04/18/2022 3:06 PM This order reflects the patients wishes and were consensually agreed upon. Question Answer Comments Discussion of Advance Directives occurred with: Patient Does the patient have a Living Will? No Does the patient have Health Care Power of Attor jus? No Care Teams Emergency Planning And Response Manager Relationship Specialty Start Date End Date Kaiser Amanda MD [address] [address] PCP - General Family Medicine 04/11/21 documented as of this encounter
--- OUTSIDE RECORDS SUMMARY | 2024-01-29 20:30 | External Medical Summary ---
Author Name Unknown Address Unknown Organization K1F:LAB[facility]ATORY [facility] - [address] [place] [address] Laboratory Report Ordering Provider Test Date Status ALFREDO SIDHU 01/28/2024 04:59:15 Final Observation Date Value Abnormality Reference (Units ) Status BUN 01/28/2024 04:59:15 17 6-20 (mg/dL) Final Creatinine 01/28/2024 04:59:15 1.0 0.6-1.2 (mg/dL) Final Glomerular filtration rate/1.73 sq M.predicted [Volume Rate/Area] in Serum, Plasma or Blood by Creatinine-based formula (CKD-EPI) 01/28/2024 04:59:15 78 >=60 (mL/min) Final eGFR is calculated based on the CKD-EPI 2020 equation. Sodium 01/28/2024 04:59:15 137 135-146 (m mol/L) Final Potassium 01/28/2024 04:59:15 4.0 3.5-5.1 (m mol/L) Final Cl 01/28/2024 04:59:15 100 98-107 (mm ol/L) Final CO2 01/28/2024 04:59:15 24 22-32 (mmo l/L) Final Anion gap 01/28/2024 04:59:15 13 7-15 (mmol /L) Final Glucose 01/28/2024 04:59:15 87 70-120 (mg /dL) Final Calcium 01/28/2024 04:59:15 9.0 8.4-10.2 ( mg/dL) Final Performing Location [facility] - [address] [place] [address]
--- OUTSIDE RECORDS SUMMARY | 2024-01-29 20:30 | External Medical Summary ---
Author Name Unknown Address Unknown Organization K1F:LAB[facility]ATORY [facility] - [address] [place] [address] Laboratory Report Ordering Provider Test Date Status ALFREDO SIDHU 01/28/2024 04:59:00 Final Warfarin Therapy
INR: 2 .0-3.0 conventional anticoagulation
INR: 2.5- 3.5 high intensity anticoagulation Observation Date Value Abnormality Reference (Units ) Status PT 01/28/2024 04:59:00 30.0 Above high normal 11 .6-15.2 (seconds) Final INR 01/28/2024 04:59:00 2.8 Above high normal 0. 8-1.2 Final Performing Location LAB[facility]AT[facility] - [address] [place] [address]
--- OUTSIDE RECORDS SUMMARY | 2024-01-29 20:30 | External Medical Summary ---
Author Name Unknown Address Unknown Organization K1F:[facility] [address] [facility] [place] [address] Laboratory Report Ordering Provider Test Date Status ALFREDO SIDHU 01/28/2024 05:57:06 Final Observation Date Value Abnormality Reference (Units ) Status Color of Urine by Auto 01/28/2024 05:57:06 Yellow Light Yellow, Yellow, Dark Yellow Final Clarity, Urine 01/28/2024 05:57:06 Clear Clear Final Glucose [Mass/volume] in Urine by Automated test strip 01/28/2024 05:57:06 Negative Negative (mg/dL) Final Bilirubin.total [Presence] in Urine by Automated test strip 01/28/2024 05:57:06 Small Abnormal Negative Final Ketones [Mass/volume] in Urine by Automated test strip 01/28/2024 05:57:06 15 Abnormal Negative (mg/dL) Final Specific gravity, Urine 01/28/2024 05:57:06 1.024 1.003-1.030 Final Hemoglobin [Presence] in Urine by Automated test strip 01/28/2024 05:57:06 Large Abnormal Negative Final pH, Urine 01/28/2024 05:57:06 6.0 5.0-7.5 (Units) Final Protein [Mass/volume] in Urine by Automated test strip 01/28/2024 05:57:06 >=300 Abnormal Negative (mg/dL) Final Urobilinogen [Mass/volume] in Urine by Automated test strip 01/28/2024 05:57:06 1.0 0.2, 1.0 (mg/dL) Final Nitrite [Presence] in Urine by Automated test strip 01/28/2024 05:57:06 Positive Abnormal Negative Final Leukocyte esterase [Presence] in Urine by Automated test strip 01/28/2024 05:57:06 Small Abnormal Negative Final RBC, Urine 01/28/2024 05:57:06 30-49 Abnormal 0-2 (/HPF) Final WBC, Urine 01/28/2024 05:57:06 30-49 Abnormal 0-2 (/HPF) Final Bacteria [#/area] in Urine sediment by Microscopy high power field 01/28/2024 05:57:06 >200 Abnormal 0-25 (/HPF) Final CULTURE, [facility] - [facility] 01/28/2024 05:57:06 Final Quantitative urine culture t o be performed Performing Location LAB[facility]ATORY [place] [address] [place] [address]
--- OUTSIDE RECORDS SUMMARY | 2024-01-29 20:30 | External Medical Summary | Summary of Care ---
Author Name Unknown Organization [facility] Address [address] [facility] [address] Phone [phone] Care Team Providers Care Fuel Cell Repairer Name Role Phone Kaiser Amanda MD Primary Care Provider [phone] Encounter Details Date Type Department Care Team (Late st Contact Info) Description 01/29/2024 Population Health External Data Unspecified Department Allergies Active Allergy Reactions Criticality Noted Date Comments Cat Dander Itching 07/14/2016 documented as of this encounter (statuses as of 01/29/2024) Medications Medication Sig Dispensed Refills Start Date End Date Status OneTouch Ultra 2 w/Device KitIndications:Type 2 diabetes mellitus with hemoglobin A1c goal of less than 7.5% ([facility]) Testing blood sugars twice daily Dx: E11.9 1 Kit 11 06/06/2021 Active OneTouch Delica Lancets 30GIndications:Type 2 diabetes mellitus with [...] for flares 60 g 2 01/19/2023 Active OneTouch Verio In Vitro Strip (Glucose Blood)Indications: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 Or as directed by anticoagulation clinic 90 Tablet 3 11/28/2023 Active AZO Cranberry 250-30 MG Oral Tablet Take by mouth every evening. Active Metamucil 48.57 % Oral Powder (Psyllium) Take by mouth every evening. Active DULoxetine HCl 60 MG Oral Capsule Delayed Release Particles (Cymbalta)Indicatio ns:Depression with anxiety Take 1 capsule by mouth in the morning 90 Capsule 3 12/27/2023 Active glipiZIDE ER 5 MG Oral Tablet Extended Release 24 Hour (glipiZIDE XL)Indications:Type 2 diabetes mellitus with hemoglobin A1c goal of less than 7.5% ([facility]) Take 1 Tablet by mouth in the morning. With breakfast.. 90 Tablet 3 01/04/2024 Active Metoclopramide HCl 5 MG Oral [...] as of this encounter (statuses as of 01/29/2024) Active Problems Problem Noted Date Diagnosed Date Near syncope 01/09/[address] 01/09/2024 Hypomagnesemia 01/09/2024 Diarrhea [...] as of this encounter (statuses as of 01/29/2024) Resolved Problems Problem Noted Date Diagnosed Date [...] unspecified site 12/16/2018 04/11/2019 Severe dehydration 12/16/2018 9 Hypercalcemia 12/16/2018 10/10/2023 Lactic acidosis 12/16/2018 11/30/2021 Pressure injury, unstageable 12/16/2018 03/27/2019 Quadriplegia 12/05/2018 06/09/2022 Generalized weakness 12/04/2018 024 Severe malnutrition 12/01/2018 12/06/19 Acute venous embolism and th rombosis of unspecified deep vessels of lower extremity 05/04/2008 08/23/2016 documented as of this encounter (statuses as of 01/29/2024) Immunizations Name Administration Dates Next Due COVID-19 mRNA, LNP-s, No Pre serve, 2-Dose Series (CommitChange) 04/23/2021,08/09/2020,07/12/2020 Covid-19, Mrna, Lnp-s, Pf, B ivalent, 30 Mcg, IM, 12 yrs and above (Pfizer) 05/19/2022 Pneumococcal Conjugate Vacc, 13 Valent (Prevnar) [...] No 10/30/2023 Does the household have a re gular source of income? (Household - for ages [...] on file documented as of this encounter Functional Status Functional Status Response Date of Assess ment Are you deaf or do you have serious difficulty hearing? Yes-[place]; no hearing aids 01/09/2024 Are you blind [...] No 01/09/2024 documented as of this encounter Plan of Treatment Upcoming Encounters Date Type Department Care Team (Late st Contact Info) Description 01/30/2024 12:20 PM EDT Office Visit Family Practice, [place] [phone] Krystina Louis CRNP [address] [place] [address] 02/05/2024 5:50 PM EDT Antico[place]acy, [place] [address] Pharmacist2, [facility] [place] [address] 02/21/2024 10:30 AM EDT Office Visit Urology Michael Colonwn [address] C[address] [facility] [address] [place] [address] Nikolai Chaudhari MD [address] [place] [address] 02/25/2024 11:20 AM EDT Office Visit [facility] [place] [address] [phone] Kaiser Amanda MD 21 [facility] [place] [address] 03/04/2024 2:45 PM EDT Office Visit [facility] Surgery [facility] [address] [place] [address] Laney Hogue MD 200 [place] [address] 03/05/2024 1:00 PM EDT Appointment Cardiac Studies, [address] [place] [address] 03/26/2024 8:00 AM EST Hospital Encounter OR [facility], Operating Room, [facility] - 4th Floor [address] [place], [place] [address] [phone] John Gordillo MD [address] [place] [address] 03/26/2024 8:00 AM EST - 03/26/2024 8:46 AM EST Surgery OR [facility], Operating Room, [facility] - 4th Floor [address] [facility] [phone] John Gordillo MD [address] [place] [address] COLONOSCOPY FLEXIBLE PROXIMAL DIAGNOSTIC 04/01/2024 12:30 PM EST Office Visit Gastroenterology, [facility] [address] [place] [phone] Thelma Jamil PA-C [facility] [address] 06/12/2024 2:00 PM EST Office Visit Cardiology, [place] 400 [facility] [place] [address] Clarissa Rapp PA-C 400 [place] [address] 10/21/2024 9:15 AM EDT Appointment Radiology, [facility] 400 [facility] [place] [address] 10/29/2024 9:45 AM EDT Office Visit Urology Aleida Rinaldi [place] [address] [place] [address] Keagan Thayer, Bert Giron MD [address] [place] [address] Scheduled Procedures Name Priority Associated Diagnoses Date/Ti [...] exists Depression Monitoring 10/14/2024 10/15/2023 Albumin/Creatinine Ratio 10/17/2024 024, 01/10/2023, 07/07/2021, Additional history exists DXA Scan 01/25/2025 01/25/2023, 090 01/2021, 12/10/2018 GFR 01/27/2025 01/28/2024, 01/12, 01/15/2024, Additional history exists Colonoscopy 03/16/2025 03/16/2022, 110 07/2021, 08/06/2009 Colorectal Cancer Screening 03/16/2025 Lipid Panel 02/27/2028 02/26/2023, 12/0 08/2021, 05/26/2021, Additional history exists DTap/Tdap Vaccines (3 - Td or Tdap) 12/10/2029 12/11/2019, 06/03/2014 Pneumococcal Vaccine: 65+ Years Completed 05/22/2017, 02/23/2016, 09/25/2011 Zoster Vaccines Completed 03/26/2019, 12/12, 09/27/2011 VITAMIN D LEVEL ONCE IN A LIFETIME-USE SMARTSET# [id number] Completed 07/26/2023, 02/26/2023, 01/23/2023, Additional history exists [...] this encounter Medical Devices Implanted Type Area Research Program Internship Device Identifier Shelf Expiration Date Model / Serial / Lot Cement Bone Simplex Hv & G - [id number] Implanted:Qty: 2 on 09/02/2020 by Gianni Hubbard MD at OR [facility] Right: Hip LUDY : ORTHOPAEDICS 08/11/2021 6195-1-010 / / [id number] Spacer Ring Aclde Distal Lg 14 - [id number] Implanted:Qty: 1 on 09/02/2020 by Gianni Hubbard MD at OR [facility] Right: Hip LUDY : ORTHOPAEDICS 11/25/2024 [id number] / / Accolade C Cs 127 6 37/158 - [id number] Implanted:Qty: 1 on 09/02/2020 by Gianni Hubbard MD at OR [facility] Right: Hip LUDY : ORTHOPAEDICS 05/29/2023 [id number] / / [id number] Hip Cocr Lfit Head V40 28/+4 - [id number] Implanted:Qty: 1 on 09/02/2020 by Gianni Hubbard MD at OR [facility] Right: Hip LUDY : ORTHOPAEDICS 11/15/2024 6260-9-228 / / [id number] Hip Head Bipol Uhr Uni 28x52 - [id number] Implanted:Qty: 1 on 09/02/2020 by Gianni Hubbard MD at OR [facility] Right: Hip LUDY : ORTHOPAEDICS 11/25/2024 UH1-52-28 / / [id number] Lens Intraoc 17.5 - [id number] - [id number] Implanted:Qty: 1 on 03/23/2022 by Rad Morgan MD at OR [facility] Left: Eye BAUSCH & LOMB 10/11/2026 [id number] / [id number] / [id number] Lens Intraoc 18.0 - [id number] - [id number] Implanted:Qty: 1 on 03/30/2022 by Rad Morgan MD at [facility] Right: Eye BAUSCH & LOMB 01/11/2027 [id number] / [id number] / [id number] documented as of this encounter Additional Health Concerns Infection Onset [...] Power of Attor jus? No Care Teams Fuel Cell Repairer Relationship Specialty Start Date End Date Kaiser Amanda MD [address] [place] [address] PCP - General Family Medicine 04/11/21 documented as of this encounter
--- OUTSIDE RECORDS SUMMARY | 2024-01-29 20:30 | External Medical Summary ---
Author Name Unknown Address Unknown Organization K1F:LABORATORY [facility] - [address] [place] [address] Laboratory Report Ordering Provider Test Date Status ALFREDO SIDHU 01/28/2024 04:59:15 Final Observation Date Value Abnormality Reference (Units ) Status WBC, Total 01/28/2024 04:59:15 7.70 4.00-10.80 (K/uL) Final RBC 01/28/2024 04:59:15 3.85 4.50-5.25 (M/uL) Final Hemoglobin 01/28/2024 04:59:15 11.8 Below low normal 14.0-16.8 (g/dL) Final HCT 01/28/2024 04:59:15 35.8 Below low normal 40.0-48.4 (%) Final MCV 01/28/2024 04:59:15 93.0 82.0-99.5 (fL) Final MCH 01/28/2024 04:59:15 30.6 27.0-34.0 (pg) Final MCHC 01/28/2024 04:59:15 33.0 32.0-36.0 (g/dL) Final RDW 01/28/2024 04:59:15 15.7 11.5-15.5 (%) Final Platelets 01/28/2024 04:59:15 234 140-400 (K/uL) Final MPV 01/28/2024 04:59:15 8.8 6.6-11.1 (fL) Final Nucleated erythrocytes/100 leukocytes [Ratio] in Blood by Automated count 01/28/2024 04:59:15 0 <=0 (/100 WBCs) Final Performing Location LABORATORY GL - [address] [place] [address]
--- OUTSIDE RECORDS SUMMARY | 2024-01-29 20:31 | External Medical Summary ---
Author Name Unknown Address Unknown Organization K09:LABORATORY [facility] [place] [address] Laboratory Report Ordering Provider Test Date Status FERNANDO ROMO 01/22/2024 06:45:10 Final Observation Date Value Abnormality Reference (Units ) Status WBC, Total 01/22/2024 06:45:10 5.86 4.00-10.8 0 (K/uL) Final RBC 01/22/2024 06:45:10 3.56 4.50-5.25 (M/uL) Final Hemoglobin 01/22/2024 06:45:10 10.6 Below low normal 14 .0-16.8 (g/dL) Final HCT 01/22/2024 06:45:10 33.2 Below low normal 40. 0-48.4 (%) Final MCV 01/22/2024 06:45:10 93.3 82.0-99.5 (fL) Final MCH 01/22/2024 06:45:10 29.8 27.0-34.0 (pg) Final MCHC 01/22/2024 06:45:10 31.9 32.0-36.0 (g/dL) Final RDW 01/22/2024 06:45:10 15.8 11.5-15.5 (%) Final Platelets 01/22/2024 06:45:10 223 140-400 (K /uL) Final MPV 01/22/2024 06:45:10 9.4 6.6-11.1 ( fL) Final Performing Location LABORATORY [facility] [place] [address]
--- OUTSIDE RECORDS SUMMARY | 2024-01-29 20:31 | External Medical Summary ---
Author Name Unknown Address Unknown Organization K09:LABORATORY [facility] [address] - [address] [place] [address] Laboratory Report Ordering Provider Test Date Status FERNANDO ROMO 01/22/2024 06:45:10 Final Observation Date Value Abnormality Reference (Units ) Status BUN 01/22/2024 06:45:10 15 6-20 (mg/dL) Final Creatinine 01/22/2024 06:45:10 0.9 0.6-1.2 (mg/dL) Final Glomerular filtration rate/1.73 sq M.predicted [Volume Rate/Area] in Serum, Plasma or Blood by Creatinine-based formula (CKD-EPI) 01/22/2024 06:45:10 >90 >=60 (mL/min) Final eGFR is calculated based on the CKD-EPI 2020 equation. Sodium 01/22/2024 06:45:10 138 135-146 (m mol/L) Final Potassium 01/22/2024 06:45:10 3.7 3.5-5.1 (m mol/L) Final Cl 01/22/2024 06:45:10 103 98-107 (mm ol/L) Final CO2 01/22/2024 06:45:10 25 22-32 (mmo l/L) Final Anion gap 01/22/2024 06:45:10 10 7-15 (mmol /L) Final Glucose 01/22/2024 06:45:10 87 70-120 (mg /dL) Final Albumin 01/22/2024 06:45:10 3.4 Below low normal 3.8 -5.0 (g/dL) Final AST (Aspartate aminotransferase) 01/22/2024 06:45:10 16 10-50 (U/L) Fin al Alk Phos 01/22/2024 06:45:10 46 35-130 (U/ L) Final Bilirubin, Total 01/22/2024 06:45:10 0.4 <=1 .2 (mg/dL) Final Calcium 01/22/2024 06:45:10 8.8 8.4-10.2 ( mg/dL) Final Protein 01/22/2024 06:45:10 5.2 Below low normal 6.0 -8.3 (g/dL) Final ALT (Alanine aminotransferase) 01/22/2024 06:45:10 18 10-50 (U/L) Rafael mendez Performing Location LABORATORY [facility] [address] [place] [address]
--- OUTSIDE RECORDS SUMMARY | 2024-01-29 20:31 | External Medical Summary | Summary of Care ---
Author Name Unknown Organization [facility] Address [address] [facility] [place] ANGEL [address] Phone [phone] Care Team Providers Care Wire Straightening Machine Operator Name Role Phone Kaiser Amanda MD Primary Care Provider +1 [phone] Reason for Visit * Reason Comments Dosage Adjustment Via Phone (anticoag Cl inic) Encounter Details Date Type Department Care Team (Late st Contact Info) Description 01/22/2024 5:50 PM EDT Anticoagulation Pharmacy, [address] [place] [address] Pharmacist2, [address] [place] [address] History of pulmonary embolism*; History of DVT (deep vein thrombosis) Allergies Active Allergy Reactions Criticality Noted Date Comments Cat Dander Itching 07/14/2016 documented as of this encounter (statuses as of 01/22/2024) Medications Medication Sig Dispensed Refills Start Date End Date Status OneTouch Ultra 2 w/Device KitIndications:Type 2 diabetes mellitus with hemoglobin A1c goal of less than 7.5% ([facility]) Testing blood sugars twice daily Dx: E11.9 1 Kit 11 06/06/2021 Active OneTouch Delica Lancets 30GIndications:Type 2 diabetes mellitus with hemoglobin A1c goal of less than 7.5% ([facility]),Type 2 diabetes mellitus with polyneuropathy ([facility]) Check BS once daily E11.9 100 Each [...] flares 60 g 2 01/19/2023 Active OneTouch Bluwanio In Vitro Strip (Glucose Blood)Indications:T ype 2 [...] hemoglobin A1c goal of less than 7.5% ([facility]) Take 1 Tablet by mouth in [...] at bedtime.. 270 Tablet 3 01/14/2024 Active documented as of this encounter (statuses as of 01/22/2024) Active Problems Problem Noted Date Diagnosed Date [...] as of this encounter (statuses as of 01/22/2024) Resolved Problems Problem Noted Date Diagnosed Date [...] as of this encounter (statuses as of 01/22/2024) Immunizations Name Administration Dates Next Due COVID-19 mRNA, LNP-s, No Pre serve, 2-Dose Series (VisionGate) 04/23/2021,08/09/2020,07/12/2020 Covid-19, Mrna, Lnp-s, Pf, B ivalent, [...] or do you have serious difficulty hearing? Yes-[place]; no hearing aids 01/09/2024 Are you blind [...] No 01/09/2024 documented as of this encounter Progress Notes * Ema Wood RPh - 01/22/2024 9:08 AM EDT [phone], [facility] Spoke to [facility], patient remains admitted at their facility. Follow up in 2 weeks. Ema Wood RPH Clinical Pharmacist 01/22/2024, 9:09 AM documented in this encounter Plan of Treatment Upcoming Encounters Date Type Department Care Team (Late st Contact Info) Description 01/25/2024 3:30 PM EDT Office Visit [facility] Surgery [facility] [address] [place] [address] Laney Hogue MD [address] [place] [address] 02/05/2024 5:50 PM EDT Anticoagulation Pharmacy, [place] [address] [address] Pharmacist2, [facility] [place] [address] [address] 02/21/2024 10:30 AM EDT Office Visit Urology [place] [address] [place] [address] Nikolai Chaudhari MD [address] [place] [address] 02/25/2024 11:20 AM EDT Office Visit Family [facility] [address] [place] [address] [phone] Kaiser Amanda MD [address] [address] 03/05/2024 1:00 PM EDT Appointment Cardiac Studies, [facility] [address] [place] [address] 03/26/2024 8:00 AM EST Hospital Encounter [facility], Operating Room, [facility] - 4th Floor [facility] [phone] John Gordillo MD [address] [place] [address] 03/26/2024 8:00 AM EST - 03/26/2024 8:46 AM EST Surgery OR [facility], Operating Room, [facility] - 4th Floor 400 [facility] [place] [address] John Gordillo MD [address] [place] [address] COLONOSCOPY FLEXIBLE PROXIMAL DIAGNOSTIC 04/01/2024 12:30 PM EST Office Visit Gastroenterology, [facility] [address] [place] [phone] Thelma Jamil PA-C 310 [facility] [place] [address] 06/12/2024 2:00 PM EST Office Visit Cardiology, [place] 400 [facility] [place] [address] Clarissa Rapp PA-C 400 [place] [address] 10/21/2024 9:15 AM EDT Appointment Radiology, [facility] [address] [facility] [place] [address] 10/29/2024 9:45 AM EDT Office Visit Urology [place] [address] [facility] [address] [place] [address] Bert Boogie Jr., MD [address] [place] [address] Scheduled Procedures Name Priority Associated Diagnoses Date/Ti [...] 10/17/20242 024, 01/10/2023, 07/07/2021, Additional history exists GFR 01/21/2025 01/22/2024, 09/0 07/2023, 01/13/2024, Additional history exists DXA Scan 01/25/2025 01/25/2023, 09/0 01/2021, 12/10/2018 Colonoscopy 03/16/2025 03/16/2022, 11/0 07/2021, 08/06/2009 Colorectal Cancer Screening 03/16/2025 Lipid Panel 02/27/2028 02/26/2023, 12/0 08/2021, 05/26/2021, Additional history exists DTap/Tdap Vaccines (3 - Td or Tdap) 12/10/2029 12/11/2019, 06/03/2014 Pneumococcal Vaccine: 65+ Years Completed 05/22/2017, 02/23/2016, 09/25/2011 Zoster Vaccines Completed 03/26/2019, 12/12, 09/27/2011 VITAMIN D LEVEL ONCE IN A LIFETIME-USE SMARTSET# [id number] Completed 07/26/2023, 02/26/2023, 01/23/2023, Additional history exists [...] this encounter Medical Devices Implanted Type Area Dice Maker Device Identifier Shelf Expiration Date Model / Serial / Lot Cement Bone Simplex Hv & G - [id number] Implanted:Qty: 2 on 09/02/2020 by Gianni Hubbard MD at OR [facility] Right: Hip LUDY : ORTHOPAEDICS 08/11/2021 6195-1-010 / / [id number] Spacer Ring Aclde Distal Lg 14 - [id number] Implanted:Qty: 1 on 09/02/2020 by Gianni Hubbard MD at OR [facility] Right: Hip LUDY : ORTHOPAEDICS 11/25/2024 3067-6903 / / Accolade C Cs 127 6 37/158 - [id number] Implanted:Qty: 1 on 09/02/2020 by Gianni Hubbard MD at OR [facility] Right: Hip LUDY : ORTHOPAEDICS 05/29/2023 [id number] / / [id number] Hip Cocr Lfit Head V40 28/+4 - [id number] Implanted:Qty: 1 on 09/02/2020 by Gianni Hubbard MD at OR [facility] Right: Hip LUDY : ORTHOPAEDICS 11/15/2024 6260-9-228 / / [id number] Hip Head Bipol Uhr Uni 28x52 - [id number] Implanted:Qty: 1 on 09/02/2020 by Gianni Hubbard MD at OR [facility] Right: Hip LUDY : ORTHOPAEDICS 11/25/2024 UH1-52-28 / / [id number] Lens Intraoc 17.5 - [id number] - [id number] Implanted:Qty: 1 on 03/23/2022 by Rad Morgan MD at OR [facility] Left: Eye BAUSCH & LOMB 10/11/2026 [id number] / [id number] / [id number] Lens Intraoc 18.0 - [id number] - [id number] Implanted:Qty: 1 on 03/30/2022 by Rad Morgan MD at OR [facility] Right: Eye BAUSCH & LOMB 01/11/2027 [id number] / [id number] / [id number] documented as of this encounter Visit Diagnoses Diagnosis History of pulmonary embolism- Primary Personal history of pulmonary embolism History of DVT (deep vein thrombosis) Personal history of venous thrombosis and embolism History of colonic polyps Personal history of colonic polyps Abdominal pain, generalized Change in bowel habits Other symptoms involving digestive system Early satiety Weight loss Loss of weight Iron deficiency anemia, unspecified iron deficiency anemia type documented in this encounter Additional Health Concerns [...] Power of Attor jus? No Care Teams Wire Straightening Machine Operator Relationship Specialty Start Date End Date Kaiser Amanda MD [address] [place] [address] PCP - General Family Medicine 04/11/21 documented as of this encounter
--- OUTSIDE RECORDS SUMMARY | 2024-01-29 20:31 | External Medical Summary ---
Author Name Unknown Address Unknown Organization K0G:LABORATORY [facility] [address] - [address] [place] [address] Laboratory Report Ordering Provider Test Date Status CARLINE OLIVO 01/26/2024 08:51:28 Final Warfarin Therapy
INR: 2 .0-3.0 conventional anticoagulation
INR: 2.5- 3.5 high intensity anticoagulation Observation Date Value Abnormality Reference (Units ) Status PT 01/26/2024 08:51:28 31.3 Above high normal 11 .6-15.2 (seconds) Final INR 01/26/2024 08:51:28 3.0 Above high normal 0. 8-1.2 Final Performing Location LABORATORY [facility] [address] 0 - [address] [place] [address]
--- OUTSIDE RECORDS SUMMARY | 2024-01-29 20:31 | External Medical Summary ---
Author Name Unknown Address Unknown Organization K0G:LABORATORY [facility] [address] - [address] [place] [address] Laboratory Report Ordering Provider Test Date Status CARLINE OLIVO 01/20/2024 06:36:20 Final Warfarin Therapy
INR: 2 .0-3.0 conventional anticoagulation
INR: 2.5- 3.5 high intensity anticoagulation Observation Date Value Abnormality Reference (Units ) Status PT 01/20/2024 06:36:20 25.1 Above high normal 11 .6-15.2 (seconds) Final INR 01/20/2024 06:36:20 2.3 Above high normal 0. 8-1.2 Final Performing Location LABOR[facility]ORY [facility] [address] 0 - [address] [place] [address]
--- OUTSIDE RECORDS SUMMARY | 2024-01-29 20:31 | External Medical Summary ---
Author Name Unknown Address Unknown Organization K01:[facility] - [address] [place] [address] Laboratory Report Ordering Provider Test Date Status FERNANDO ROMO 01/22/2024 06:45:10 Final Observation Date Value Abnormality Reference (Units ) Status Lipase 01/22/2024 06:45:10 12 Below low normal 13- 60 (U/L) Final Performing Location [facility] - [address] [place] [address]
--- OUTSIDE RECORDS SUMMARY | 2024-01-29 20:31 | External Medical Summary | Summary of Care ---
Author Name Unknown Organization [facility] Address [address] [facility] [place] [address] Phone [phone] Care Team Providers Care Dispute Coordinator Name Role Phone Kaiser Amanda MD Primary Care Provider +1 -[phone] Reason for Visit * Reason Comments eRx-Medication Refill Encounter Details Date Type Department Care Team (Late st Contact Info) Description 01/22/2024 Refill [facility] 21 [facility] [place] [address] Kaiser Amanda MD 21 [place] [address] Type 2 diabetes mellitus with hemoglobin A1c goal of less than 7.5% ([facility]) Allergies Active Allergy Reactions Criticality Noted Date Comments Cat Dander Itching 07/14/2016 documented as of this encounter (statuses as of 01/23/2024) Medications Medication Sig Dispensed Refills Start Date End Date Status ActiveOTouch Ultra 2 w/Device KitIndications:Type 2 diabetes mellitus with hemoglobin A1c goal of less than 7.5% (HCC) Testing blood sugars twice daily Dx: E11.9 [...] hemoglobin A1c goal of less than 7.5% ([facility]) USE STRIP TO CHECK GLUCOSE ONCE DAILY [...] hemoglobin A1c goal of less than 7.5% ([facility]) Take 1 Tablet by mouth in the morning. With breakfast.. 90 Tablet 3 01/04/2024 Active Metoclopramide HCl 5 MG Oral Tablet (Reglan)Indications :Nausea and vomiting, unspecified vomiting type Take 1 Tablet by mouth in the morning and 1 Tablet at noon and 1 Tablet before bedtime. 30 minutes before meals. 90 Tablet 01/04/2024 Active Polyethylene Glycol 3350 17 GM [...] as of this encounter (statuses as of 01/23/2024) Active Problems Problem Noted Date Diagnosed Date [...] as of this encounter (statuses as of 01/23/2024) Resolved Problems Problem Noted Date Diagnosed Date [...] as of this encounter (statuses as of 01/23/2024) Immunizations Name Administration Dates Next Due COVID-19 mRNA, LNP-s, No Pre serve, 2-Dose Series ([employer]) 04/23/2021,08/09/2020,07/12/2020 Covid-19, Mrna, Lnp-s, Pf, B ivalent, [...] or do you have serious difficulty hearing? Yes-[place]; no hearing aids 01/09/2024 Are you blind [...] No 01/09/2024 documented as of this encounter Miscellaneous Notes * Telephone Encounter - Donna Watson, [facility] - 01/23/2024 4:56 PM EDT Refused Prescriptions: Disp Refills glipiZIDE ER 10 MG Oral Tablet Extended Re*90 Tab*0 Sig: TAKE 1TABLET BY MOUTH ONCE DAILY - TAKE 30 MINUTES BEFORE A MEALRefused By: DONNA WATSON for Refusal: Refill Not AppropriateReason for Refusal Comment: 5 mg documented in this encounter Plan of Treatment Upcoming Encounters Date Type Department Care Team (Late st Contact Info) Description 02/05/2024 5:50 PM EDT Anticoagulation Pharmacy, [place] [address] [address] Pharmacist2, [facility] [place] 21 [address] [place] [address] 02/21/2024 10:30 AM EDT Office Visit Urology [place] [address] [place] [address] Nikolai Chaudhari MD 27 [address] [place] [address] 02/25/2024 11:20 AM EDT Office Visit Family [facility], [place] [address] [phone] Kaiser Amanda MD 21 [address] [address] 03/04/2024 2:45 PM EDT Office Visit [facility] Surgery [facility] 200 [place] [address] Laney Hogue MD 200 [place] [address] 03/05/2024 1:00 PM EDT Appointment Cardiac Studies, [address] [place] [address] 03/26/2024 8:00 AM EST Hospital Encounter OR [facility], Operating Room, [facility] - 4th Floor [facility] [phone] John Gordillo MD [address] [facility] [place] [address] 03/26/2024 8:00 AM EST - 03/26/2024 8:46 AM EST Surgery OR [facility], Operating Room, [facility] - 4th Floor 400 [facility] [place] [address] John Gordillo MD [address] [place] [address] COLONOSCOPY FLEXIBLE PROXIMAL DIAGNOSTIC 04/01/2024 12:30 PM EST Office Visit Gastroenterology, [facility] 310 [facility] [place] [address] Thelma Jamil PA-C 310 [facility] [place] [address] 06/12/2024 2:00 PM EST Office Visit Cardiology, [place] 400 [facility] [place] [address] Clarissa Rapp PA-C 400 [place] [place] [address] 10/21/2024 9:15 AM EDT Appointment Radiology, [facility] 400 [facility] [place] [address] 10/29/2024 9:45 AM EDT Office Visit Urology [place] [address] [facility] 270 [address] [address] Bert Boogie Jr., MD 27 [address] [address] Scheduled Procedures Name Priority Associated Diagnoses Date/Ti [...] exists Depression Monitoring 10/14/2024 10/15/2023 Albumin/Creatinine Ratio 10/17/202410/17/2 024, 01/10/2023, 07/07/2021, Additional history exists GFR 01/21/2025 01/22/2024, 09/0 07/2023, 01/13/2024, Additional history exists DXA Scan 01/25/2025 01/25/2023, 09/0 01/2021, 12/10/2018 Colonoscopy 03/16/2025 03/16/2022, 110 07/2021, 08/06/2009 Colorectal Cancer Screening 03/16/2025 Lipid Panel 02/27/2028 02/26/2023, 12/0 08/2021, 05/26/2021, Additional history exists DTap/Tdap Vaccines (3 - Td or Tdap) 12/10/2029 12/11/2019, 06/03/2014 Pneumococcal Vaccine: 65+ Years Completed 05/22/2017, 02/23/2016, 09/25/2011 Zoster Vaccines Completed 03/26/2019, 12/12, 09/27/2011 VITAMIN D LEVEL ONCE IN A LIFETIME-USE SMARTSET# [id number] Completed 07/26/2023, 02/26/2023, 01/23/2023, Additional history exists [...] this encounter Medical Devices Implanted Type Area Contractor General Building Device Identifier Shelf Expiration Date Model / Serial / Lot Cement Bone Simplex Hv & G - [id number] Implanted:Qty: 2 on 09/02/2020 by Gianni Hubbard MD at OR [facility] Right: Hip LUDY : ORTHOPAEDICS 08/11/2021 6195-1-010 / / [id number] Spacer Ring Aclde Distal Lg 14 - [id number] Implanted:Qty: 1 on 09/02/2020 by Gianni Hubbard MD at OR [facility] Right: Hip LUDY : ORTHOPAEDICS 11/25/2024 [id number] / / Accolade C 127 6 37/158 - [id number] Implanted:Qty: 1 on 09/02/2020 by Gianni Hubbard MD at OR [facility] Right: Hip LUDY : ORTHOPAEDICS 05/29/2023 [id number] / / [id number] Hip Cocr Lfit Head V40 28/+4 - [id number] Implanted:Qty: 1 on 09/02/2020 by Gianni Hubbard MD at OR [facility] Right: Hip LUDY : ORTHOPAEDICS 11/15/2024 6260-9-228 / / [id number] Hip Head Bipol Uhr Uni 28x52 - [id number] Implanted:Qty: 1 on 09/02/2020 by Gianni Hubbard MD at OR [facility] Right: Hip LUDY : ORTHOPAEDICS 11/25/2024 UH1-52-28 / / [id number] Lens Intraoc 17.5 - [id number] - [id number] Implanted:Qty: 1 on 03/23/2022 by Rad Morgan MD at OR [facility] Left: Eye BAUSCH & LOMB 10/11/2026 [id number] / [id number] / [id number] Lens Intraoc 18.0 - [id number] - [id number] Implanted:Qty: 1 on 03/30/2022 by Rad Morgan MD at OR [facility] Right: Eye BAUSCH & LOMB 01/11/2027 [id number] / [id number] / [id number] documented as of this encounter Visit Diagnoses Diagnosis Type 2 diabetes mellitus with hemoglobin A1c goal of less than 7.5% (HCC) History of colonic polyps Personal history of [...] Power of Attor jus? No Care Teams Dispute Coordinator Relationship Specialty Start Date End Date Kaiser Amanda MD [address] [address] PCP - General Family Medicine 04/11/21 documented as of this encounter
--- OUTSIDE RECORDS SUMMARY | 2024-01-29 20:31 | External Medical Summary ---
Author Name Unknown Address Unknown Organization [id number]:[facility] [place] [address] [place] [address] Laboratory Report Ordering Provider Test Date Status HY,DEPAMPHILIS 01/19/2024 12:41:00 Final Observation Date Value Abnormality Reference (Units) Status Source 01/19/2024 12:41:00 Semi-formed Final Clostridioides difficile toxin and BI-NAP1-027 strain DNA panel - Stool by GREGORY with probe detection 01/19/2024 12:41:00 Indeterminate. Clinical correlation needed. Consider repeat testing if symptoms worsen. Abnormal Negative Final Performing Location LAB[facility]ORY [facility] - [address] [place] [address]
--- OUTSIDE RECORDS SUMMARY | 2024-01-29 20:31 | External Medical Summary ---
Author Name Unknown Address Unknown Organization K0G:[facility] - [address] [place] [address] Laboratory Report Ordering Provider Test Date Status CARLINE OLIVO 01/19/2024 06:14:51 Final Warfarin Therapy
INR: 2 .0-3.0 conventional anticoagulation
INR: 2.5- 3.5 high intensity anticoagulation Observation Date Value Abnormality Reference (Units ) Status PT 01/19/2024 06:14:51 25.1 Above high normal 11 .6-15.2 (seconds) Final INR 01/19/2024 06:14:51 2.2 Above high normal 0. 8-1.2 Final Performing Location [facility] - [address] [place] [address]
--- OUTSIDE RECORDS SUMMARY | 2024-01-29 20:31 | External Medical Summary ---
Author Name Unknown Address Unknown Organization K09:[facility] [place] [address] Laboratory Report Ordering Provider Test Date Status CARLINE OLIVO 01/22/2024 06:45:10 Final Warfarin Therapy
INR: 2 .0-3.0 conventional anticoagulation
INR: 2.5- 3.5 high intensity anticoagulation Observation Date Value Abnormality Reference (Units ) Status PT 01/22/2024 06:45:10 27.2 Above high normal 11 .6-15.2 (seconds) Final INR 01/22/2024 06:45:10 2.5 Above high normal 0. 8-1.2 Final Performing Location [facility] [place] [address]
--- OUTSIDE RECORDS SUMMARY | 2024-01-29 20:31 | External Medical Summary | Summary of Care ---
Author Name Unknown Organization [facility] Address [address] [place] [address] Phone [phone] Care Team Providers Care Fresh Foods Technician Name Role Phone Kaiser Amanda MD Primary Care Provider [phone] Reason for Visit * Reason Onset Date Comments TRIAGE 01/17/2024 Encounter Details Date Type Department Care Team (Late st Contact Info) Description 01/17/2024 Telephone Access Center, [place] 100 [address] [facility] *DO NOT REMOVE THIS DEPARTMENT* [place] [address] Services, Scheduling [address] [place] [address] TRIAGE Allergies Active Allergy Reactions Criticality Noted Date Comments Cat Dander Itching 07/14/2016 documented as of this encounter (statuses as of 01/21/2024) Medications Medication Sig Dispensed Refills Start Date End Date Status OneTouch Ultra 2 w/Device KitIndications:Type 2 diabetes mellitus with hemoglobin A1c goal of less than 7.5% ([facility]) Testing blood sugars twice daily Dx: E11.9 1 Kit 11 06/06/2021 Active OneTouch Delica Lancets 30GIndications:Type 2 diabetes mellitus with hemoglobin A1c goal of less than 7.5% ([facility]),Type 2 diabetes mellitus with polyneuropathy ([facility]) Check BS once daily E11.9 100 Each [...] A1c goal of less than 7.5% (HCC) Take 1 Tablet by mouth in the [...] as of this encounter (statuses as of 01/21/2024) Active Problems Problem Noted Date Diagnosed Date [...] as of this encounter (statuses as of 01/21/2024) Resolved Problems Problem Noted Date Diagnosed Date [...] as of this encounter (statuses as of 01/21/2024) Immunizations Name Administration Dates Next Due COVID-19 mRNA, LNP-s, No Pre serve, 2-Dose Series ([place]) 04/23/2021,08/09/2020,07/12/2020 Covid-19, Mrna, Lnp-s, Pf, B ivalent, [...] or do you have serious difficulty hearing? Yes-[place]; no hearing aids 01/09/2024 Are you blind [...] encounter Miscellaneous Notes * Telephone Encounter - [facility] - 01/21/2024 10:22 AM EDT [facility] * Telephone Encounter - Mónica Collier LPN - 01/21/2024 9:26 AM EDT Pt is scheduled on 02/21/24 with Watson for a cysto. TOV can be completed that day. * Telephone Encounter - [facility] ASSIST - 01/21/2024 9:24 AM EDT Can this be with just you guys or should I do it a day a doctor is here? * Telephone Encounter - Loli Blanchard OSA - 01/17/2024 10:22 AM EDT Please call Joann back at [facility] at [phone] she states the doctor at the facility wants him to come in the urology clinic for the void trial for juarez removal since it was such a hardplacement in the er on 01/08 documented in this encounter Plan of Treatment Upcoming Encounters Date Type Department Care Team (Late st Contact Info) Description 01/22/2024 5:50 PM EDT Anticoagulation Pharmacy, [place] [address] [address] Pharmacist2, [facility] [place] [address] [address] 01/25/2024 3:30 PM EDT Office Visit [facility] 200 [place] [address] Laney Hogue MD 200 [place] [address] 02/21/2024 10:30 AM EDT Office Visit Urology Rolo Colon [address] [facility] [address] [address] Nikolai Chaudhari MD 27 [address] [address] 02/25/2024 11:20 AM EDT [facility] [place] [phone] Kaiser Amanda MD 21 [place] [address] 03/05/2024 1:00 PM EDT Appointment Cardiac Studies, [address] [address] 03/26/2024 8:00 AM EST Hospital Encounter OR [facility], Operating Room, [facility] - 4th Floor [address] [place] [address] [place] [address] John Gordillo MD [address] [place] [address] 03/26/2024 8:00 AM EST - 03/26/2024 8:46 AM EST Surgery OR [facility], Operating Room, [facility] - 4th Floor [address] [place] [address] [place] [address] John Gordillo MD [address] [place] [address] COLONOSCOPY FLEXIBLE PROXIMAL DIAGNOSTIC 04/01/2024 12:30 PM EST Office Visit [address]ology, [address] [address] Thelma Jamil PA-C [address] [place] [address] [place] [address] 06/12/2024 2:00 PM EST Office Visit Cardiology, [address] [address] Clarissa Rapp PA-C [address] [place], [place] [address] [address] 10/21/2024 9:15 AM EDT Appointment Radiology, [address] [place] [address] 10/29/2024 9:45 AM EDT Office Visit Urology Rolo Colon [address] [address] Bert Boogie Jr., MD [address] [place] [address] Scheduled Procedures Name Priority Associated Diagnoses Date/Ti [...] 01/23/2023, Additional history exists B-12 07/25/2024 07/26/2023, 1005/2021, 11/15/2021, Additional history exists Diabetic Foot Exam 07/25/2024 07/26/2023, 0 06/09/2022, 04/11/2021, Additional history exists Depression Monitoring 10/14/2024 10/15/2023 Albumin/Creatinine Ratio 10/17/20242 024, 01/10/2023, 07/07/2021, Additional history exists GFR 01/14/2025 01/15/2024, 05/2023, 01/11/2024, Additional history exists DXA Scan 01/25/2025 01/25/2023, 01/2021, 12/10/2018 Colonoscopy 03/16/2025 03/16/2022, 07/2021, 08/06/2009 Colorectal Cancer Screening 03/16/2025 Lipid Panel 02/27/2028 02/26/2023, 1208/2021, 05/26/2021, Additional history exists DTap/Tdap Vaccines (3 - Td or Tdap) 12/10/2029 12/11/2019, 06/03/2014 Pneumococcal Vaccine: 65+ Years Completed 05/22/2017, 02/23/2016, 09/25/2011 Zoster Vaccines Completed 03/26/2019, 12/12, 09/27/2011 VITAMIN D LEVEL ONCE IN A LIFETIME-USE SMARTSET# [id number] Completed 07/26/2023, 02/26/2023, 01/23/2023, Additional history exists [...] this encounter Medical Devices Implanted Type Area Bingo Caller Device Identifier Shelf Expiration Date Model / Serial / Lot Cement Bone Simplex Hv & G - [id number] Implanted:Qty: 2 on 09/02/2020 by Gianni Hubbard MD at OR [facility] Right: Hip LUDY : ORTHOPAEDICS 08/11/2021 6195-1-010 / / [id number] Spacer Ring Aclde Distal Lg 14 - [id number] Implanted:Qty: 1 on 09/02/2020 by Gianni Hubbard MD at OR [facility] Right: Hip LUDY : ORTHOPAEDICS 11/25/2024 4019-0179 / / Accolade C Cs 127 6 37/158 - [id number] Implanted:Qty: 1 on 09/02/2020 by Gianni Hubbard MD at OR [facility] Right: Hip LUDY : ORTHOPAEDICS 05/29/2023 6057-0637D / / [id number] Hip Cocr Lfit Head V40 28/+4 - [id number] Implanted:Qty: 1 on 09/02/2020 by Gianni Hubbard MD at OR [facility] Right: Hip LUDY : ORTHOPAEDICS 11/15/2024 6260-9-228 / / [id number] Hip Head Bipol Uhr Uni 28x52 - [id number] Implanted:Qty: 1 on 09/02/2020 by Gianni Hubbard MD at OR [facility] Right: Hip LUDY : ORTHOPAEDICS 11/25/2024 UH1-52-28 / / [id number] Lens Intraoc 17.5 - [id number] - [id number] Implanted:Qty: 1 on 03/23/2022 by Rad Morgan MD at OR [facility] Left: Eye BAUSCH & LOMB 10/11/2026 [id number] / [id number] / [id number] Lens Intraoc 18.0 - [id number] - [id number] Implanted:Qty: 1 on 03/30/2022 by Rad Morgan MD at OR [facility] Right: Eye BAUSCH & LOMB 01/11/2027 [id number] / [id number] / [id number] documented as of this encounter Additional Health Concerns Infection Onset Date Last Indicated Resolved Time Gastrointestinal Rule-Out 12/09/2023 01/09/2024 C. difficile 01/19/2024 01/19/2024 C. difficile Rule-Out 01/20/2024 01/19/20242023 6:24 AM EDT documented as of this encounter Advance Directives [...] Power of Attor jus? No Care Teams Fresh Foods Technician Relationship Specialty Start Date End Date Kaiser Amanda MD [address] [address] PCP - General Family Medicine 04/11/21 documented as of this encounter
--- OUTSIDE RECORDS SUMMARY | 2024-01-29 20:31 | External Medical Summary | Summary of Care ---
Author Name Unknown Organization [facility] Address [address] [place] [address] Phone [phone] Care Team Providers Care Load Out Supervisor Name Role Phone Kaiser Amanda MD Primary Care Provider [phone] Reason for Visit * Reason Onset Date Comments TRIAGE 01/17/2024 Encounter Details Date Type Department Care Team (Late st Contact Info) Description 01/17/2024 Telephone Access Center, [place] 100 [address] [facility] *DO NOT REMOVE THIS DEPARTMENT* [place] [address] Services, Scheduling [address] [place] [address] TRIAGE Allergies Active Allergy Reactions Criticality Noted Date Comments Cat Dander Itching 07/14/2016 documented as of this encounter (statuses as of 01/21/2024) Medications Medication Sig Dispensed Refills Start Date End Date Status OneTouch Ultra 2 w/Device KitIndications:Type 2 diabetes mellitus with hemoglobin A1c goal of less than 7.5% ([facility]) Testing blood sugars twice daily Dx: E11.9 1 Kit 11 06/06/2021 Active OneTouch Delica Lancets 30GIndications:Type 2 diabetes mellitus with hemoglobin A1c goal of less than 7.5% ([facility]),Type 2 diabetes mellitus with polyneuropathy ([facility]) Check BS once daily E11.9 100 Each [...] mRNA, LNP-s, No Pre serve, 2-Dose Series ([employer]) 04/23/2021,08/09/2020,07/12/2020 Covid-19, Mrna, Lnp-s, Pf, B ivalent, [...] or do you have serious difficulty hearing? Yes-[place]; no hearing aids 01/09/2024 Are you blind [...] encounter Miscellaneous Notes * Telephone Encounter - Mónica Collier LPN [...] AM EDT Please call Joann back at [facility] at [phone] she states the doctor at the facility wants him to come in the urology clinic for the void trial for juarez removal since it was such a hardplacement in the er on 01/08 documented in this encounter Plan of Treatment Upcoming Encounters Date Type Department Care Team (Late st Contact Info) Description 01/22/2024 5:50 PM EDT Anticoagulation Pharmacy, [place] [address] [address] Pharmacist2, [facility] [place] [address] [address] 01/25/2024 3:30 PM EDT Office Visit [facility] 200 [place] [address] Laney Hogue MD 200 [place] [address] 02/21/2024 10:30 AM EDT Office Visit Urology Rolo Colon [address] [facility] [address] [address] Nikolai Chaudhari MD [address] [address] 02/25/2024 11:20 AM EDT Office Visit [facility], [place] [address] [phone] Kaiser Amanda MD [address] [address] 03/05/2024 1:00 PM EDT Appointment Cardiac Studies, [address] [place] [address] 03/26/2024 8:00 AM EST Hospital Encounter OR [facility], Operating Room, [facility] - 4th Floor 400 [facility] [place] [address] John Gordillo MD [address] [place] [address] 03/26/2024 8:00 AM EST - 03/26/2024 8:46 AM EST Surgery OR [facility], Operating Room, [facility] - 4th Floor 400 [facility] [place] [address] John Gordillo MD [address] [place] [address] COLONOSCOPY FLEXIBLE PROXIMAL DIAGNOSTIC 04/01/2024 12:30 PM EST Office Visit Gastroenterology, [facility] [address] Thelma Jamil PA-C [address] [place] [address] [place] [address] 06/12/2024 2:00 PM EST Office Visit Cardiology, [address] [place] [address] Clarissa Rapp PA-C 400 [facility] [place] [address] 10/21/2024 9:15 AM EDT Appointment Radiology, [address] [place] [address] 10/29/2024 9:45 AM EDT Office Visit Urology Rolo Colon [address] [place] [place] [address] Bert Boogie Jr., MD [address] [place] [address] Scheduled Procedures Name Priority Associated Diagnoses Date/Ti [...] 07/07/2021, Additional history exists GFR 01/14/2025 01/15/2024, 090 05/2023, 01/11/2024, Additional history exists DXA Scan 01/25/2025 01/25/2023, 09/0 01/2021, 12/10/2018 Colonoscopy 03/16/2025 03/16/2022, 07/2021, 08/06/2009 Colorectal Cancer Screening 03/16/2025 Lipid Panel 02/27/2028 02/26/2023, 08/2021, 05/26/2021, Additional history exists DTap/Tdap Vaccines (3 - Td or Tdap) 12/10/2029 12/11/2019, 06/03/2014 Pneumococcal Vaccine: 65+ Years Completed 05/22/2017, 02/23/2016, 09/25/2011 Zoster Vaccines Completed 03/26/2019, 12/12, 09/27/2011 VITAMIN D LEVEL ONCE IN A LIFETIME-USE SMARTSET# [id number] Completed 07/26/2023, 02/26/2023, 01/23/2023, Additional history exists [...] this encounter Medical Devices Implanted Type Area Mold Yard Supervisor Device Identifier Shelf Expiration Date Model / Serial / Lot Cement Bone Simplex Hv & G - [id number] Implanted:Qty: 2 on 09/02/2020 by Gianni Hubbard MD at OR [facility] Right: Hip LUDY : ORTHOPAEDICS 08/11/2021 6195-1-010 / / [id number] Spacer Ring Aclde Distal Lg 14 - [id number] Implanted:Qty: 1 on 09/02/2020 by Gianni Hubbard MD at OR [facility] Right: Hip LUDY : ORTHOPAEDICS 11/25/2024 9761-1887 / / Accolade C Cs 127 6 37/158 - [id number] Implanted:Qty: 1 on 09/02/2020 by Gianni Hubbard MD at OR [facility] Right: Hip LUDY : ORTHOPAEDICS 05/29/2023 6057-0637D / / [id number] Hip Cocr Lfit Head V40 28/+4 - [id number] Implanted:Qty: 1 on 09/02/2020 by Gianni Hubbard MD at OR [facility] Right: Hip LUDY : ORTHOPAEDICS 11/15/2024 6260-9-228 / / [id number] Hip Head Bipol Uhr [facility] 28x52 - [id number] Implanted:Qty: 1 on 09/02/2020 by Gianni Hubbard MD at OR [facility] Right: Hip LUDY : ORTHOPAEDICS 11/25/2024 UH1-52-28 / / [id number] Lens Intraoc 17.5 - [id number] - [id number] Implanted:Qty: 1 on 03/23/2022 by Rad Morgan MD at OR [facility] Left: Eye BAUSCH & LOMB 10/11/2026 [id number] / [id number] / [id number] Lens Intraoc 18.0 - [id number] - [id number] Implanted:Qty: 1 on 03/30/2022 by Rad Morgan MD at OR [facility] Right: Eye BAUSCH & LOMB 01/11/2027 [id number] / [id number] / [id number] documented as of this encounter Additional Health [...] Power of Attor jus? No Care Teams Load Out Supervisor Relationship Specialty Start Date End Date Kaiser Amanda MD [address] [address] PCP - General Family Medicine 04/11/21 documented as of this encounter
--- OUTSIDE RECORDS SUMMARY | 2024-01-29 20:31 | External Medical Summary | Summary of Care ---
Author Name Unknown Organization [facility] Address [address] [facility] [place] [address] Phone [phone] Care Team Providers Care Visual Display Manager Name Role Phone Kaiser Amanda MD Primary Care Provider +1 [phone] Reason for Visit * Reason Onset Date Comments Home Health 01/25/2024 Encounter Details Date Type Department Care Team (Late st Contact Info) Description [facility] [place] [phone] Kaiser Amanda MD 21 [facility] [place] [address] Home Health Allergies Active Allergy Reactions Criticality Noted Date Comments Cat Dander Itching 07/14/2016 documented as of this encounter (statuses as of 01/25/2024) Medications Medication Sig Dispensed Refills Start Date End Date Status MixercastTouch Ultra 2 w/Device KitIndications:Type 2 diabetes mellitus with hemoglobin A1c goal of less than 7.5% ([facility]) Testing blood sugars twice daily Dx: E11.9 1 Kit 11 06/06/2021 Active OneTouch Delica Lancets 30GIndications:Type 2 diabetes mellitus with hemoglobin A1c goal of less than 7.5% ([facility]),Type 2 diabetes mellitus with polyneuropathy ([facility]) Check BS once daily E11.9 100 Each [...] Blood)Indications:T ype 2 diabetes mellitus with polyneuropathy ([facility]),Type 2 diabetes mellitus with hemoglobin A1c goal of less than 7.5% ([facility]) USE STRIP TO CHECK GLUCOSE ONCE DAILY [...] A1c goal of less than 7.5% ([facility]) Take 1 Tablet by mouth in the [...] as of this encounter (statuses as of 01/25/2024) Active Problems Problem Noted Date Diagnosed Date [...] as of this encounter (statuses as of 01/25/2024) Resolved Problems Problem Noted Date Diagnosed Date [...] as of this encounter (statuses as of 01/25/2024) Immunizations Name Administration Dates Next Due COVID-19 mRNA, LNP-s, No Pre serve, 2-Dose Series (Tenlegs) 04/23/2021,08/09/2020,07/12/2020 Covid-19, Mrna, Lnp-s, Pf, B ivalent, [...] or do you have serious difficulty hearing? Yes-CIRCLE; no hearing aids 01/09/2024 Are you blind [...] Miscellaneous Notes * Telephone Encounter - Santa Hardin LPN - 01/25/2024 10:53 AM EDT HH Admission/Start of Care Admission/Start of Care: Katharine CLARK, Calling from: Mario Referral ordered by: Trixie 01/13-01/25 Referral received for: Half-Way, PT, and OT Planned start of care date:Yes, Date 01/26 Start of care completed on: NA They will call with any updates or additional concerns from the upcoming HH visit. Last Office Visit: 01/04/2024 Has patient been scheduled or seen in the office for a follow up visit: Yes- on01/30/2024 Advised that orders will be signed by Kaiser Amanda MD and to fax to the office for signature. Mario documented in this encounter Plan of Treatment Upcoming Encounters Date Type Department Care Team (Late st Contact Info) Description 01/30/2024 12:20 PM EDT Office Visit [facility] [address] [phone] Krystina Louis CRNP 21 [address] [phone] 02/05/2024 5:50 PM EDT Anticoagulation Pharmacy, [place] [address] [address] Pharmacist2, [facility] [place] [address] [place] [address] 02/21/2024 10:30 AM EDT Office Visit Urology Rolo Colon [address] [place] [address] [place] [phone] Nikolai Chaudhari MD [address] [place] [address] 02/25/2024 11:20 AM EDT [facility] Visit [facility] [place] [address] [phone] Kaiser Amanda MD 21 [address] [id number] 03/04/2024 2:45 PM EDT Office Visit [facility] 200 [facility] [place] [address] Laney Hogue MD [address] [facility] [address] 03/05/2024 1:00 PM EDT Appointment Cardiac Studies, [address] [place] [address] 03/26/2024 8:00 AM EST Hospital Encounter OR GL, Operating Room, [facility] - 4th Floor 400 [facility] [place] [address] John Gordillo MD [address] [facility] [place] [address] 03/26/2024 8:00 AM EST - 03/26/2024 8:46 AM EST Surgery OR [facility], Operating Room, [facility] - 4th Floor 400 [facility] [place] [address] John Gordillo MD [address] [place] [address] COLONOSCOPY FLEXIBLE PROXIMAL DIAGNOSTIC 04/01/2024 12:30 PM EST Office Visit Gastroenterology, [facility] [address] [facility] [address] Thelma Jamil PA-C [address] [place] [address] [place] [address] 06/12/2024 2:00 PM EST Office Visit Cardiology, [address] [place] [address] Clarissa Rapp PA-C 400 [facility] [address] 10/21/2024 9:15 AM EDT Appointment Radiology, [address] [place] [address] 10/29/2024 9:45 AM EDT Office Visit Urology Rolo Colon [address] [place] [address] [place] [address] Keagan Thayer, Bert Giron MD [address] [place] [address] Scheduled Procedures Name Priority Associated Diagnoses Date/Ti [...] 10/17/2024 024, 01/10/2023, 07/07/2021, Additional history exists GFR 01/21/2025 01/22/2024, 090 07/2023, 01/13/2024, Additional history exists DXA Scan 01/25/2025 01/25/2023, 01/2021, 12/10/2018 Colonoscopy 03/16/2025 03/16/2022, 07/2021, 08/06/2009 Colorectal Cancer Screening 03/16/2025 Lipid Panel 02/27/2028 02/26/2023, 1208/2021, 05/26/2021, Additional history exists DTap/Tdap Vaccines (3 - Td or Tdap) 12/10/2029 12/11/2019, 06/03/2014 Pneumococcal Vaccine: 65+ Years Completed 05/22/2017, 02/23/2016, 09/25/2011 Zoster Vaccines Completed 03/26/2019, 12/12, 09/27/2011 VITAMIN D LEVEL ONCE IN A LIFETIME-USE SMARTSET# [id number] Completed 07/26/2023, 02/26/2023, 01/23/2023, Additional history exists [...] this encounter Medical Devices Implanted Type Area Water Pump Installer Device Identifier Shelf Expiration Date Model / Serial / Lot Cement Bone Simplex Hv & G - [id number] Implanted:Qty: 2 on 09/02/2020 by Gianni Hubbard MD at OR [facility] Right: Hip LUDY : ORTHOPAEDICS 08/11/2021 6195-1-010 / / [id number] Spacer Ring Aclde Distal Lg 14 - [id number] Implanted:Qty: 1 on 09/02/2020 by Gianni Hubbard MD at OR [facility] Right: Hip LUDY : ORTHOPAEDICS 11/25/2024 [id number] / / Accolade C Cs 127 6 37/158 - [id number] Implanted:Qty: 1 on 09/02/2020 by Gianni Hubbard MD at OR [facility] Right: Hip LUDY : ORTHOPAEDICS 05/29/2023 [id number] / / [id number] Hip Cocr Lfit Head V40 28/+4 - [id number] Implanted:Qty: 1 on 09/02/2020 by Gianni Hubbard MD at OR [facility] Right: Hip LUDY : ORTHOPAEDICS 11/15/2024 6260-9-228 / / [id number] Hip Head Bipol Uhr Uni 28x52 - [id number] Implanted:Qty: 1 on 09/02/2020 by Gianni Hubbard MD at OR [facility] Right: Hip LUDY : ORTHOPAEDICS 11/25/2024 UH1-52-28 / / [id number] Lens Intraoc 17.5 - [id number] - [id number] Implanted:Qty: 1 on 03/23/2022 by Rad Morgan MD at OR [facility] [facility] Left: Eye BAUSCH & LOMB 10/11/2026 [id number] / [id number] / [id number] Lens Intraoc 18.0 - [id number] - [id number] Implanted:Qty: 1 on 03/30/2022 by Rad Morgan MD at OR [facility] [facility] Right: Eye BAUSCH & LOMB 01/11/2027 [id number] / [id number] / [id number] documented as of this encounter Additional Health [...] Power of Attor jus? No Care Teams Visual Display Manager Relationship Specialty Start Date End Date Kaiser Amanda MD 21 [address] [address] PCP - General Family Medicine 04/11/21 documented as of this encounter
--- OUTSIDE RECORDS SUMMARY | 2024-01-29 20:31 | External Medical Summary ---
Author Name Unknown Address Unknown Organization K01:[facility] [address] [place] [address] Laboratory Report Ordering Provider Test Date Status FERNANDO ROMO 01/22/2024 06:45:10 Final Observation Date Value Abnormality Reference (Units ) Status Amylase 01/22/2024 06:45:10 28 28-100 (U/ L) Final Performing Location [facility] [address] [place] [address]
--- OUTSIDE RECORDS SUMMARY | 2024-01-29 20:31 | External Medical Summary ---
Author Name Unknown Address Unknown Organization K09:[facility] [place] [address] Laboratory Report Ordering Provider Test Date Status CARLINE OLIVO 01/24/2024 06:18:21 Final Warfarin Therapy
INR: 2 .0-3.0 conventional anticoagulation
INR: 2.5- 3.5 high intensity anticoagulation Observation Date Value Abnormality Reference (Units ) Status PT 01/24/2024 06:18:21 27.4 Above high normal 11 .6-15.2 (seconds) Final INR 01/24/2024 06:18:21 2.5 Above high normal 0. 8-1.2 Final Performing Location [facility] [place] [address]
--- OUTSIDE RECORDS SUMMARY | 2024-01-29 20:31 | External Medical Summary | Summary of Care ---
Author Name Unknown Organization [facility] Address [address] [place] [address] Phone [phone] Care Team Providers Care Control Panel Tester Name Role Phone Kaiser Amanda MD Primary Care Provider +1 [phone] Reason for Visit * Reason Onset Date Comments TRIAGE 01/17/2024 Encounter Details Date Type Department Care Team (Late st Contact Info) Description 01/17/2024 Telephone Access Center, [place] [address] [facility] *DO NOT REMOVE THIS DEPARTMENT* [place] [address] Services, Scheduling [address] [place] [address] TRIAGE Allergies Active Allergy Reactions Criticality Noted Date Comments Cat Dander Itching 07/14/2016 documented as of this encounter (statuses as of 01/21/2024) Medications Medication Sig Dispensed Refills Start Date End Date Status OneTouch Ultra 2 w/Device KitIndications:Type 2 diabetes mellitus with hemoglobin A1c goal of less than 7.5% ([facility]) Testing blood sugars twice daily Dx: E11.9 1 Kit 11 06/06/2021 Active OneTouch Delica Lancets 30GIndications:Type 2 diabetes mellitus with hemoglobin A1c goal of less than 7.5% ([facility]),Type 2 diabetes mellitus with polyneuropathy ([facility]) Check BS once daily E11.9 [...] mRNA, LNP-s, No Pre serve, 2-Dose Series (Polar[employer]) 04/23/2021,08/09/2020,07/12/2020 Covid-19, Mrna, Lnp-s, Pf, B ivalent, [...] or do you have serious difficulty hearing? Yes-[place]; no hearing aids 01/09/2024 Are you blind [...] Miscellaneous Notes * Telephone Encounter - Santa Dejesus, MED ASSIST - 01/21/2024 9:24 AM EDT Can this be with just you guys or should I do it a day a doctor is here? * Telephone Encounter - Loli Blanchard OSA - 01/17/2024 10:22 AM EDT [phone] she states the doctor at the facility wants him to come in the urology clinic for the void trial for juarez removal since it was such a hardplacement in the er on 01/08 documented in this encounter Plan of Treatment Upcoming Encounters Date Type Department Care Team (Late st Contact Info) Description 01/22/2024 5:50 PM EDT Anticoagulation Pharmacy, [place] [address] [address] Pharmacist2, [facility] [place] 21 [address] [address] 01/25/2024 3:30 PM EDT Office Visit [facility] [address] [place] [address] Laney Hogue MD [address] [place] [address] 02/21/2024 10:30 AM EDT Office Visit Urology Rolo Colon [address] [facility] [address] [address] Nikolai Chaudhari MD [address] [place] [address] 02/25/2024 11:20 AM EDT Office Visit [facility] [place] [address] [phone] Kaiser Amanda MD [address] [address] 03/05/2024 1:00 PM EDT [facility] [address] [place] [address] 03/26/2024 8:00 AM EST Hospital Encounter OR GL, Operating Room, [facility] - 4th Floor [address] [facility] [phone] John Gordillo MD [address] [place] [address] 03/26/2024 8:00 AM EST - 03/26/2024 8:46 AM EST Surgery OR [facility], Operating Room, [facility] - 4th Floor 400 [facility] [place] [phone] John Gordillo MD [address] [place] [address] COLONOSCOPY FLEXIBLE PROXIMAL DIAGNOSTIC 04/01/2024 12:30 PM EST Office Visit Gastroenterology, [facility] 310 [facility] [place] Seth [phone] Thelma Jamil PA-C 310 [facility] [place] [address] 06/12/2024 2:00 PM EST Office Visit Cardiology, [place] 400 [facility] [place] [address] Clarissa Rapp PA-C 400 [facility] [place] [address] 10/21/2024 9:15 AM EDT Appointment Radiology, [facility] 400 [facility] [place] [address] 10/29/2024 9:45 AM EDT Office Visit Urology Rolo Colon [address] [place] [address] [place] [address] Bert Boogie Jr., MD 27 [address] [place] [address] Scheduled Procedures Name Priority Associated Diagnoses Date/Ti [...] 07/07/2021, Additional history exists GFR 01/14/2025 01/15/2024, 09/0 05/2023, 01/11/2024, Additional history exists DXA Scan [...] D LEVEL ONCE IN A LIFETIME-USE SMARTSET# [id number] Completed 07/26/2023, 02/26/2023, 01/23/2023, Additional history exists [...] this encounter Medical Devices Implanted Type Area Hand Mounter Device Identifier Shelf Expiration Date Model / Serial / Lot Cement Bone Simplex Hv & G - [id number] Implanted:Qty: 2 on 09/02/2020 by Gianni Hubbard MD at OR [facility] Right: Hip LUDY : ORTHOPAEDICS 08/11/2021 6195-1-010 / / [id number] Spacer Ring Aclde Distal Lg 14 - [id number] Implanted:Qty: 1 on 09/02/2020 by Gianni Hubbard MD at OR [facility] Right: Hip LUDY : ORTHOPAEDICS 11/25/2024 2274-6314 / / Accolade C Cs 127 6 37/158 - [id number] Implanted:Qty: 1 on 09/02/2020 by Gianni Hubbard MD at OR [facility] Right: Hip LUDY : ORTHOPAEDICS 05/29/2023 6057-0637D / / [id number] Hip Cocr Lfit Head V40 28/+4 - [id number] Implanted:Qty: 1 on 09/02/2020 by Gianni Hubbard MD at OR [facility] Right: Hip LUDY : ORTHOPAEDICS 11/15/2024 6260-9-228 / / [id number] Hip Head Bipol Uhr Uni 28x52 - [id number] Implanted:Qty: 1 on 09/02/2020 by Gianni Hubbard MD at OR [facility] Right: Hip LUDY : ORTHOPAEDICS 11/25/2024 UH1-52-28 / / [id number] Lens Intraoc 17.5 - [id number] - [id number] Implanted:Qty: 1 on 03/23/2022 by Rad Morgan MD at OR [facility] Left: Eye BAUSCH & LOMB 10/11/2026 [id number] / [id number] / [id number] Lens Intraoc 18.0 - [id number] - [id number] Implanted:Qty: 1 on 03/30/2022 by Rad Morgan MD at OR [facility] Right: Eye BAUSCH & LOMB 01/11/2027 [id number] / [id number] / [id number] documented as of this encounter Additional Health [...] Power of Attor jus? No Care Teams Control Panel Tester Relationship Specialty Start Date End Date Kaiser Amanda MD [address] [address] PCP - General Family Medicine 04/11/21 documented as of this encounter
--- OUTSIDE RECORDS SUMMARY | 2024-01-29 20:32 | External Medical Summary | Summary of Care ---
Author Name Unknown Organization [facility] Address [address] [place] [address] Phone [phone] Care Team Providers Care Printed Circuit Board Preassembler Name Role Phone Kaiser Amanda MD Primary Care Provider [phone] Reason for Visit * Reason Onset Date Comments TRIAGE 01/17/2024 Encounter Details Date Type Department Care Team (Late st Contact Info) Description 01/17/2024 Telephone Access Center, [place] [address] [facility] *DO NOT REMOVE THIS DEPARTMENT* [place] [address] Services, Scheduling [address] [place] [address] TRIAGE Allergies Active Allergy Reactions Criticality Noted Date Comments Cat Dander Itching 07/14/2016 documented as of this encounter (statuses as of 01/17/2024) Medications Medication Sig Dispensed Refills Start Date End Date Status OneTouch Ultra 2 w/Device KitIndications:Type 2 diabetes mellitus with hemoglobin A1c goal of less than 7.5% ([facility]) Testing blood sugars twice daily Dx: E11.9 1 Kit 11 06/06/2021 Active OneTouch Delica Lancets 30GIndications:Type 2 diabetes mellitus with hemoglobin A1c goal of less than 7.5% ([facility]),Type 2 diabetes mellitus with polyneuropathy ([facility]) Check BS once daily E11.9 100 [...] as of this encounter (statuses as of 01/17/2024) Active Problems Problem Noted Date Diagnosed Date [...] as of this encounter (statuses as of 01/17/2024) Resolved Problems Problem Noted Date Diagnosed Date [...] as of this encounter (statuses as of 01/17/2024) Immunizations Name Administration Dates Next Due COVID-19 mRNA, LNP-s, No Pre serve, 2-Dose Series (Livevol) 04/23/2021,08/09/2020,07/12/2020 Covid-19, Mrna, Lnp-s, Pf, B ivalent, [...] or do you have serious difficulty hearing? Yes-KASA[place]; no hearing aids 01/09/2024 Are you blind [...] encounter Miscellaneous Notes * Telephone Encounter - Loli Blanchard OSA - 01/17/2024 10:22 AM EDT Please call Joann back at [facility] at [phone] she states the doctor at the facility wants him to come in the urology clinic for the void trial for juarez removal since it was such a hardplacement in the er on 01/08 documented in this encounter Plan of Treatment Upcoming Encounters Date Type Department Care Team (Late st Contact Info) Description 01/22/2024 5:50 PM EDT Anticoagulation Pharmacy, [place] [address] [address] Pharmacist2, [facility] [address] [address] 01/25/2024 3:30 PM EDT Office Visit [facility] [address] [place] [address] Laney Hogue MD [address] [place] [address] 02/21/2024 10:30 AM EDT Office Visit Urology [place] [address] [facility] [address] [place] [address] Nikolai Chaudhari MD [address] [place] [address] 02/25/2024 11:20 AM EDT Office Visit [facility] [address] [phone] Kaiser Amanda MD [address] [address] 03/05/2024 1:00 PM EDT [facility] [place] [address] 03/26/2024 8:00 AM EST Hospital Encounter OR [facility], Operating Room, [facility] - 4th Floor [address] [place] [address] John Gordillo MD [address] [place] [address] 03/26/2024 8:00 AM EST - 03/26/2024 8:46 AM EST Surgery OR [facility], Operating Room, [facility] - 4th Floor [address] [place] [phone] John Gordillo MD [address] [place] [address] COLONOSCOPY FLEXIBLE PROXIMAL DIAGNOSTIC 04/01/2024 12:30 PM EST Office Visit [facility], [facility] 310 [place] [address] Thelma Jamil PA-C 310 [place] [address] 06/12/2024 2:00 PM EST Office Visit Cardiology, [place] 400 [place] [address] Clarissa Rapp PA-C 400 [place] [address] 10/21/2024 9:15 AM EDT Appointment Radiology, [facility] 400 [place] [address] 10/29/2024 9:45 AM EDT Office Visit Urology Aleida Rinaldi [place] [address] [facility] 270 [place] [address] Bert Boogie Jr., MD [address] [address] Scheduled Procedures Name Priority Associated Diagnoses Date/Ti [...] D LEVEL ONCE IN A LIFETIME-USE SMARTSET# [id number] Completed 07/26/2023, 02/26/2023, 01/23/2023, Additional history exists [...] this encounter Medical Devices Implanted Type Area Sensory Scientist Device Identifier Shelf Expiration Date Model / Serial / Lot Cement Bone Simplex Hv & G - [id number] Implanted:Qty: 2 on 09/02/2020 by Gianni Hubbard MD at OR [facility] Right: Hip LUDY : ORTHOPAEDICS 08/11/2021 6195-1-010 / / [id number] Spacer Ring Aclde Distal Lg 14 - [id number] Implanted:Qty: 1 on 09/02/2020 by Gianni Hubbard MD at OR [facility] Right: Hip LUDY : ORTHOPAEDICS 11/25/2024 0755-8093 / / Accolade C Cs 127 6 37/158 - [id number] Implanted:Qty: 1 on 09/02/2020 by Gianni Hubbard MD at OR [facility] Right: Hip LUDY : ORTHOPAEDICS 05/29/2023 6057-0637D / / [id number] Hip Cocr Lfit Head V40 28/+4 - [id number] Implanted:Qty: 1 on 09/02/2020 by Gianni Hubbard MD at OR [facility] Right: Hip LUDY : ORTHOPAEDICS 11/15/2024 6260-9-228 / / [id number] Hip Head Bipol Uhr Uni 28x52 - [id number] Implanted:Qty: 1 on 09/02/2020 by Gianni Hubbard MD at OR [facility] Right: Hip LUDY : ORTHOPAEDICS 11/25/2024 UH1-52-28 / / [id number] Lens Intraoc 17.5 - [id number] - [id number] Implanted:Qty: 1 on 03/23/2022 by Rad Morgan MD at OR [facility] Left: Eye BAUSCH & LOMB 10/11/2026 [id number] / [id number] / [id number] Lens Intraoc 18.0 - [id number] - [id number] Implanted:Qty: 1 on 03/30/2022 by Rad Morgan MD at OR [facility] Right: Eye BAUSCH & LOMB 01/11/2027 [id number] / [id number] / [id number] documented as of this encounter Additional Health Concerns Infection Onset Date Last Indicated Resolved Time Gastrointestinal Rule-Out 12/09/2023 01/09/2024 documented as of this encounter Advance Directives [...] Power of Attor jus? No Care Teams Printed Circuit Board Preassembler Relationship Specialty Start Date End Date Kaiser Amanda MD [facility] [place] [address] PCP - General Family Medicine 04/11/21 documented as of this encounter
--- OUTSIDE RECORDS SUMMARY | 2024-01-29 20:32 | External Medical Summary ---
Author Name Unknown Address Unknown Organization K09:[facility] [place] [address] Laboratory Report Ordering Provider Test Date Status CARLINE OLIVO 01/17/2024 06:05:00 Final Warfarin Therapy
INR: 2 .0-3.0 conventional anticoagulation
INR: 2.5- 3.5 high intensity anticoagulation Observation Date Value Abnormality Reference (Units ) Status PT 01/17/2024 06:05:00 19.7 Above high normal 11 .6-15.2 (seconds) Final INR 01/17/2024 06:05:00 1.7 Above high normal 0. 8-1.2 Final Performing Location [facility] [address]
--- OUTSIDE RECORDS SUMMARY | 2024-01-29 20:32 | External Medical Summary ---
Author Name Unknown Address Unknown Organization K09:[facility] [place] [address] Laboratory Report Ordering Provider Test Date Status HY,DEPAMPHILIS 01/15/2024 06:51:41 Final Warfarin Therapy
INR: 2 .0-3.0 conventional anticoagulation
INR: 2.5- 3.5 high intensity anticoagulation Observation Date Value Abnormality Reference (Units ) Status PT 01/15/2024 06:51:41 18.2 Above high normal 11 .6-15.2 (seconds) Final INR 01/15/2024 06:51:41 1.5 Above high normal 0. 8-1.2 Final Performing Location [facility] [place] [address]
--- OUTSIDE RECORDS SUMMARY | 2024-01-29 20:32 | External Medical Summary ---
Author Name Unknown Address Unknown Organization K09:[facility] [place] [address] Laboratory Report Ordering Provider Test Date Status HY,DEPAMPHILIS 01/15/2024 07:44:01 Final Observation Date Value Abnormality Reference (Units ) Status BUN 01/15/2024 07:44:01 17 6-20 (mg/dL) Final Creatinine 01/15/2024 07:44:01 1.1 0.6-1.2 (mg/dL) Final Glomerular filtration rate/1.73 sq M.predicted [Volume Rate/Area] in Serum, Plasma or Blood by Creatinine-based formula (CKD-EPI) 01/15/2024 07:44:01 70 >=60 (mL/min) Final eGFR is calculated based on the CKD-EPI 2020 equation. Sodium 01/15/2024 07:44:01 141 135-146 (m mol/L) Final Potassium 01/15/2024 07:44:01 4.5 3.5-5.1 (m mol/L) Final Cl 01/15/2024 07:44:01 104 98-107 (mm ol/L) Final CO2 01/15/2024 07:44:01 25 22-32 (mmo l/L) Final Anion gap 01/15/2024 07:44:01 12 7-15 (mmol /L) Final Glucose 01/15/2024 07:44:01 160 Above high normal 70 -120 (mg/dL) Final Calcium 01/15/2024 07:44:01 9.1 8.4-10.2 ( mg/dL) Final Performing Location [facility] [place] [address]
--- OUTSIDE RECORDS SUMMARY | 2024-01-29 20:32 | External Medical Summary | Summary of Care ---
Author Name Unknown Organization [facility] Address [address] [place] [address] Phone [phone] Care Team Providers Care Oven Heater Name Role Phone Kaiser Amanda MD Primary Care Provider [phone] Reason for Visit * Reason Comments Weakness, Generalized * Auth/Cert Specialty Diagnoses / Procedures Referred By Contac t Referred To Contact [facility] [address] [place] [address] Phone: [phone] Emergency Medicine [facility] [address] [place] [address] Referral ID Status Reason Start Date Expiration Date Visits Re quested Visits Authorized [id number] Encounter Details Date Type Department Care Team (Latest Contact Info) Description 01/09/2024 8:26 AM EDT - 01/14/2024 2:43 PM EDT Hospital Encounter 5A [facility], [facility] 5th Floor [address] [place] [address] Robbei Jenkins DO [address], [place] [id number] Segun Brito MD [address] [place], [place] [address] [address] Liam Barajas MD [address] [facility] [place] [address] Various: KRAVS,[email or web address] Discharge Disposition: IP Rehab Allergies Active Allergy Reactions Criticality Noted Date Comments Cat Dander Itching 07/14/2016 documented as of this encounter (statuses as of 01/15/2024) Medications Medication Sig Dispensed Refills Start Date End Date Status [email or web address] Ultra 2 w/Device KitIndications:Typ e 2 diabetes mellitus with hemoglobin A1c goal of less than 7.5% (HCC) Testing blood sugars twice daily Dx: E11.9 1 Kit 11 06/06/19 22 Active [email or web address] Delica Lancets 30GIndications:Typ e 2 diabetes mellitus with hemoglobin A1c goal of less than 7.5% (HCC),Type 2 diabetes mellitus with polyneuropathy (HCC) Check BS once daily E11.9 100 Each 06/22/19 22 Active Docusate Sodium 100 MG Oral Capsule (Colace) Take 1 Capsule (100 mg) by mouth in the morning and 1 Capsule (100 mg) before bedtime. 10 Capsule 04/18/20 22 Active Additional Information Patient not taking.Reported on 12/19/2023 Vitamin D 25 MCG (1000 UT) Oral Tablet Take 1 Tablet (1,000 Units) by mouth daily at noon. 30 Tablet 3 04/18/20 22 Active Cinacalcet HCl 30 MG Oral Tablet (Sensipar)Indicati ons:Hypercalcemia Take 1 tablet by mouth once daily 90 Tablet 3 12/22/19 23 Active Additional Information Patient taking differently: 30 mg Oral Daily(AM), Reported on 10/07/2023 Iron 325 (65 Fe) MG Oral Tablet Take 1 Tablet by mouth every evening. 09/13/19 23 Active Hydrocortisone 2.5 % External Cream Apply to eyebrows twice daily for 3-5 days at a time as needed for flares 60 g 2 01/20/20 23 Active [email or web address] Verio In Vitro Strip (Glucose Blood)Indications: Type 2 diabetes mellitus with polyneuropathy (HCC),Type 2 diabetes mellitus with hemoglobin A1c goal of less than 7.5% (HCC) USE STRIP TO CHECK GLUCOSE ONCE DAILY 100 Strip 3 07/16/19 24 Active Nitroglycerin 0.4 MG Sublingual Tablet Sublingual (Nitrostat)Indicat ions:Stable angina (HCC) Place 1 Tablet under the tongue every 5 minutes as needed for Pain, Chest. 25 Tablet 07/26/19 24 Active Omeprazole 20 MG Oral Capsule Delayed Release (PriLOSEC)Indicati ons:Gastroesophage al reflux disease, unspecified whether esophagitis present Take 1 Capsule by mouth in the morning. 1 hour before the first meal of the day. 30 Capsule 5 07/26/19 24 Active Atorvastatin Calcium 40 MG Oral Tablet (Lipitor)Indicatio ns:Hyperlipidemia with target LDL less than 100 Take 1 Tablet by mouth in the morning. 90 Tablet 3 08/14/19 24 Active Ondansetron 4 MG Oral Tablet Disintegrating (Zofran)Indication s:Nausea and vomiting, unspecified vomiting type Place 1 Tablet on tongue every 8 hours as needed for Nausea. dissolve on tongue. 20 Tablet 10/17/19 24 Active Ketoconazole 2 % External Shampoo (Nizoral) APPLY TO SCALP AND EYEBROWS DAILY- LATHER, WAIT 5 MINUTES, THEN RINSE 120 mL 1 10/25/19 24 Active Metoprolol Succinate ER 25 MG Oral Tablet Extended Release 24 Hour (toPROL XL) Take 0.5 Tablets by mouth every night at bedtime. 15 Tablet 5 10/29/19 24 Active Finasteride 5 MG Oral Tablet (Proscar)Indicatio ns:BPH with obstruction/lower urinary tract symptoms Take 1 Tablet by mouth in the morning. 90 Tablet 3 11/12/19 24 Active Triamcinolone Acetonide 0.1 % External Cream (Aristocort) Apply to rash on abdomen twice daily as needed 80 g 5 11/23/19 24 Active Warfarin Sodium 5 MG Oral Tablet (Coumadin) Take 1 Tablet by mouth every evening. Or as directed by anticoagulation clinic 90 Tablet 3 11/28/19 24 Active AZO Cranberry 250-30 MG Oral Tablet Take by mouth every evening. Active Metamucil 48.57 % Oral Powder (Psyllium) Take by mouth every evening. Active DULoxetine HCl 60 MG Oral Capsule Delayed Release Particles (Cymbalta)Indicati ons:Depression with anxiety Take 1 capsule by mouth in the morning 90 Capsule 3 12/27/19 24 Active glipiZIDE ER 5 MG Oral Tablet Extended Release 24 Hour (glipiZIDE XL)Indications:Typ e 2 diabetes mellitus with hemoglobin A1c goal of less than 7.5% ([facility]) Take 1 Tablet by mouth in the morning. With breakfast.. 90 Tablet 3 01/04/20 24 Active Metoclopramide HCl 5 MG Oral Tablet (Reglan)Indication s:Nausea and vomiting, unspecified vomiting type Take 1 Tablet by mouth in the morning and 1 Tablet at noon and 1 Tablet before bedtime. 30 minutes before meals. 90 Tablet 5 01/04/20 24 Active Polyethylene Glycol 3350 17 GM Oral Packet (MiraLax) Take 1 Packet by mouth every other day. Active Tamsulosin HCl 0.4 MG Oral Capsule (Flomax) Take 2 Capsules by mouth at bedtime. 60 Capsule 01/14/20 24 Active Midodrine HCl 5 MG Oral Tablet (Proamatine)Indica tions:Orthostatic hypotension Take 2 Tablets by mouth in the morning and 2 Tablets at noon and 2 Tablets in the evening. Do not take at bedtime.. 270 Tablet 3 01/14/20 24 Active metFORMIN HCl 1000 MG Oral Tablet (Glucophage) TAKE 1 TABLET BY MOUTH TWICE A DAY WITH BREAKFAST AND DINNER 180 Tablet 1 07/21/19 24 024 Discontinued Tamsulosin HCl 0.4 MG Oral Capsule (Flomax) Take 2 Capsules by mouth at bedtime. 60 Capsule 11/08/19 24 024 Discontinued Midodrine HCl 5 MG Oral Tablet (Proamatine)Indica tions:Orthostatic hypotension Take 1 Tablet by mouth in the morning and 1 Tablet at noon and 1 Tablet in the evening. Do not take at bedtime.. 270 Tablet 3 12/11/19 24 024 Discontinued Cefpodoxime Proxetil 200 MG Oral Tablet Take 1 Tablet by mouth in the morning and 1 Tablet before bedtime. Do all this for 10 days. Do not start before December 30, 2023. 20 Tablet 12/30/19 24 024 documented as of this encounter (statuses as of 01/15/2024) Active Problems Problem Noted Date Diagnosed Date [...] as of this encounter (statuses as of 01/15/2024) Resolved Problems Problem Noted Date Diagnosed Date [...] as of this encounter (statuses as of 01/15/2024) Immunizations Name Administration Dates Next Due COVID-19 mRNA, LNP-s, No Pre serve, 2-Dose Series (Pfizer) 04/23/2021,08/09/2020,07/12/2020 Covid-19, Mrna, Lnp-s, Pf, B ivalent, [...] Sign Reading Time Taken Comments Blood Pressure 95/51 01/14/2024 7:30 AM EDT Pulse 61 01/14/2024 7:39 AM EDT Temperature 36.5 C (97.7 F) 01/14/2024 7:03 AM ED T Respiratory Rate 18 01/14/2024 7:03 AM EDT Oxygen Saturation 98% 01/14/2024 7:03 AM EDT Inhaled Oxygen Concentration - - Weight 68.2 kg (150 lb 6.4 oz) 01/13/2024 4:47 A M EDT Height 175.3 cm (5' 9") 01/09/2024 3:21 PM EDT Body Mass Index 22.21 01/09/2024 3:21 PM EDT documented in this encounter Functional Status [...] No 01/09/2024 documented as of this encounter Discharge Summaries * Liam Barajas MD - 01/14/2024 2:43 PM EDT Images from the original note were not included. [facility] [address] Admission Date: 01/09/2024 Discharge Date: 01/14/2024 RECOMMENDED TO DO FOR NEXT PROVIDER(S): Medications as listed Keep chaparro on Follow up with urology REASON(S) FOR MEDICATION CHANGE(S): Per dx below DISPOSITION ON DISCHARGE: IP Rehab ([facility]) Active Hospital Problems Diagnosis *Principal Diagnosis - Near syncope Chaparro catheter in place Hypomagnesemia Diarrhea Loss of weight Acute urinary retention Other constipation Orthostatic hypotension Anticoagulated on warfarin Ambulatory dysfunction Hyperlipidemia with target LDL less than 100 BPH with obstruction/lower urinary tract symptoms Type 2 diabetes mellitus with hemoglobin A1c goal of less than 7.5% ([facility]) Resolved Hospital Problems No resolved problems to display. ADMISSION HISTORY & PHYSICAL EXAM (focused): Per admission team PRESENTING PROBLEM: dysuria, generalized weakness, near syncope HPI: 73 year old male with PMH significant for cervical/thoracic spine surgery s/p fall in 2019, type 2 diabetes, Hodgkin's lymphoma following with Dr. Morales, atrial fibrillation anticoagulated on warfarin, and most recently recurrent UTIs since October 04, 2023, urinary retention and BPH who presented to the ED today with his with reports of ongoing dysuria with last dose of abx last evening wh ich was Cefpodoxime, generalized weakness where is needs to ambulate with his walker which is the baseline but 1 assist with using gait belt and still patient gets weak during ambulation per . This morning he had an episode of diaphoresis while ambulating to the bathroom with the along with increased generalized weakness. Due to weakness he is more difficult for to manage at home at present time. He has been following with urology and planned for cystoscopy but reports this cannot be done until 02/24/24 per urology but they are on a cancellation list. Today patient had the diaphoresis and weakness as noted previously along with dysuria, increased generalized weakness. Denies fever or chills. + dizziness at times when he is up. Denies SOB or chest pain, pressure, palpitations. Ongoing issues with eating -- denies nausea but notes that when he eats he "goes right to the bathroom" with episodes of diarrhea per . States that he was 250 lbs butcurrently 140 lbs over the past few years. They have seen GI for this and are currently using metamucil daily with miralax every other day because without laxatives then he has severe constipation --no bowel movements without medication per . Also reported that he attempted gastric emptying study 01/02/24 but vomited with the test so it was unable to be completed. Notes that he has ongoing issues with urination -- dysuria, urgency, frequency. Has had a chaparro in the past, been on 5 abx sinceMay 23 of this year and is continuing to follow with urology as he is on Flomax and Proscar. In ED today, patient VS stable. Troponins 39 and 35 above baseline of 16-20 but no chest pain reported by patient. BMP unremarkable with glucose 89. Magnesium 1.2. INR 3.8. WBC 7.98 with H/H 11.9/35.8. AST/ALT WNL. UA with large blood and 26-50 bacteria. Sent for culture. CXR negative. Magnesium replacement in ED, NSS 500 ml bolus provided in ED. Nursing attempted straight cath X 1 but met resista nce. Nursing 2nd attempt they were able to place 16 F coude chaparro catheter. Requesting admission for near syncope, generalized weakness, and urinary retention. Physical Exam Most Recent Vital Signs: BP: 125 mmHg/74 mmHg (01/09/24 1300) Pulse: 71 (01/09/24 1300) Resp: 16 (01/09/24 1300) Temp: 36.11 C (01/09/24 0829) Temp Summary: Temp Min: 36.1 C (97 F) Max: 36.1 C (97 F) SpO2: 95 % (01/09/24 0932) O2 flow rate: Supplemental O2 Delivery: Wt Readings from Last 3 Encounters: 01/09/24 68 kg (150 lb) 01/04/24 67.4 kg (148 lb 9.6 oz) 12/29/23 68.5 kg (151 lb) Physical Exam Constitutional: General: He is not in acute distress. Appearance: He is ill-appearing. He is not toxic-appearing or diaphoretic. HENT: Head: Normocephalic. Right Ear: External ear normal. Left Ear: External ear normal. Nose: Nose normal. No congestion or rhinorrhea. Mouth/Throat: Mouth: Mucous membranes are moist. Eyes: General: No scleral icterus. Right eye: No discharge. Left eye: No discharge. Conjunctiva/sclera: Conjunctivae normal. Cardiovascular: Rate and Rhythm: Normal rate and regular rhythm. Heart sounds: Normal heart sounds. No murmur heard. No friction rub. No gallop. Comments: NSR per EKG done in ED and interpreted by PHILIP Mcdermott upon admission No significant change from previous Pulmonary: Effort: Pulmonary effort is normal. No respiratory distress. Breath sounds: Normal breath sounds. No wheezing, rhonchi or rales. Abdominal: General: Bowel sounds are normal. There is no distension. Palpations: Abdomen is soft. Tenderness: There is no abdominal tenderness. There is no guarding or rebound. Genitourinary: Comments: Chaparro intact, patent, draining clear yellow colored urine Musculoskeletal: General: No swelling or tenderness. Cervical back: Neck supple. Right lower leg: No edema. Left lower leg: No edema. Comments: Generalized weakness 2/5 bilat UE strength 2/5 bilat LE strength Skin: General: Skin is warm and dry. Capillary Refill: Capillary refill takes 2 to 3 seconds. Coloration: Skin is pale. Skin is not jaundiced. Findings: No erythema. Neurological: Mental Status: He is alert and oriented to person, place, and time. Mental status is at baseline. Motor: Weakness present. Gait: Gait abnormal. Psychiatric: Mood and Affect: Mood normal. Behavior: Behavior normal. HOSPITAL COURSE (focused): Lewis Camacho came to the hospital with: complaint of weakness His main diagnosis at discharge was: Near syncope BPH with obstruction/lower urinary tract symptoms Type 2 diabetes mellitus with hemoglobin A1c goal of less than 7.5% Hyperlipidemia with target LDL less than 100 Ambulatory dysfunction Anticoagulated on warfarin Orthostatic hypotension Chaparro catheter in place Hypomagnesemia Diarrhea- resolved Loss of weight Acute urinary retention Other constipation Patient was admitted with tele No significant arrhythmia Orthostatic vital signs remained positive. He was seen by urology Chaparro is to stay until urology follow up His diarrhea resolved during admission. GI saw patient who recommends OP follow up for EGD/colonoscopy. His electrolytes were corrected. His midodrine was increased Operations & Procedures performed: none Complications: none significant Significant Lab and Imaging Results: As mentioned above Results Pending at Discharge: Lab Results Pending at Discharge: PT INR Routine MEDICATION UPDATES AT DISCHARGE CHANGE how you take these medications INSTRUCTIONS MetFORMIN 1000 MG Tablet Commonly known as: Glucophage What changed: additional instructions TAKE 1 TABLET BY MOUTH TWICE DAILY WITH BREAKFAST AND WITH DINNER midodrine 5 MG Tablet Commonly known as: Proamatine What changed: how much to take Take 2 Tablets by mouth in the morning and 2 Tablets at noon and 2 Tablets in the evening. Do not take at bedtime.. CONTINUE taking these medications INSTRUCTIONS atorvaSTATin 40 MG Tablet Commonly known as: Lipitor Take 1 Tablet by mouth in the morning. cinacalcet 30 MG Tablet Commonly known as: Sensipar Take 1 tablet by mouth once daily DULoxetine 60 MG Cpep Commonly known as: Cymbalta Take 1 capsule by mouth in the morning Finasteride 5 MG Tablet Commonly known as: Proscar Take 1 Tablet by mouth in the morning. glipiZIDE XL 5 MG Tb24 Commonly known as: glipiZIDE XL Take 1 Tablet by mouth in the morning. With breakfast.. hydrocortisone 2.5 % cream Apply to eyebrows twice daily for 3-5 days at a time as needed for flares Iron 325 (65 Fe) MG Tabs Take 1 Tablet by mouth every evening. Ketoconazole 2 % shampoo Commonly known as: Nizoral APPLY TO SCALP AND EYEBROWS DAILY- LATHER, WAIT 5 MINUTES, THEN RINSE Metamucil 48.57 % Powd Generic drug: Psyllium Take by mouth every evening. metoclopramide 5 MG Tablet Commonly known as: Reglan Take 1 Tablet by mouth in the morning and 1 Tablet at noon and 1 Tablet before bedtime. 30 minutes before meals. metoprolol succinate XL 25 MG Tb24 Commonly known as: toPROL XL Take 0.5 Tablets by mouth every night at bedtime. MiraLax packet Generic drug: Polyethylene Glycol 3350 Take 1 Packet by mouth every other day. Nitroglycerin 0.4 MG Subl Commonly known as: Nitrostat Place 1 Tablet under the tongue every 5 minutes as needed for Pain, Chest. omeprazole 20 MG Cpdr Commonly known as: PriLOSEC Take 1 Capsule by mouth in the morning. 1 hour before the first meal of the day. ondansetron ODT 4 MG Tbdp Commonly known as: Zofran Place 1 Tablet on tongue every 8 hours as needed for Nausea. dissolve on tongue. [email or web address].comTouch Delica Lancets 30G Misc Check BS once daily E11.9 Matrimony.comTouch Ultra 2 w/Device Kit Testing blood sugars twice daily Dx: E11.9 OneTouch Verio Strp Generic drug: Glucose Blood USE STRIP TO CHECK GLUCOSE ONCE DAILY tamsulosin 0.4 MG Capsule Commonly known as: Flomax Take 2 Capsules by mouth at bedtime. Triamcinolone Acetonide 0.1 % cream Commonly known as: Aristocort Apply to rash on abdomen twice daily as needed Vitamin D 25 MCG (1000 UT) Tabs Take 1 Tablet (1,000 Units) by mouth daily at noon. Warfarin Sodium 5 MG Tablet Commonly known as: Coumadin Take as directed. If you are unsure how to take this medication, talk to your nurse or doctor. Original instructions: Take 1 Tablet by mouth every evening. Or as directed by anticoagulation clinic CONTINUE taking these medications but follow up with your Primary Care Physician (PCP). INSTRUCTIONS AZO Cranberry 250-30 MG Tabs Take by mouth every evening. Cefpodoxime Proxetil 200 MG Tabs Ask about: Should I take this medication? Take 1 Tablet by mouth in the morning and 1 Tablet before bedtime. Do all this for 10 days. Do not start before December 30, 2023. Docusate Sodium 100 MG Capsule Commonly known as: Colace Take 1 Capsule (100 mg) by mouth in the morning and 1 Capsule (100 mg) before bedtime. SCHEDULED FOLLOW-UP: Future Appointments Appt Date/Time Provider Department 01/15/2024 5:50 PM Pharmacist2, [facility] 01/25/2024 3:30 PM Laney Hogue MD [facility] Surgery [facility] 02/21/2024 10:30 AM Nikolai Chaudhari MD [facility] 02/25/2024 11:20 AM Kaiser Amanda MD [facility] [place] 03/05/2024 1:00 PM YARN TWISTER 1 [facility] Cardiac Studies, [facility] 04/01/2024 12:30 PM Thelma Jamil [facility]-C [facility] 06/12/2024 2:00 PM Clarissa Rapp PA-C Cardiology, [place] 10/21/2024 9:15 AM US1 [facility] Radiology, [facility] 10/29/2024 9:45 AM Bert Boogie Jr., MD Urology [place] Other Information Indwelling Devices: LINES ALL Duration Urethral Catheter Coude 5 days Vital Signs (last recorded): Most Recent Systolic BP: 95 mmHg (01/14/24729) Most Recent Diastolic BP: 51 mmHg (01/14/24729) Pulse: 61 (01/14/24 0739) Resp: 18 (01/14/24702) Most Recent Temperature: 36.5 C (01/14/24702) Weight: 68.2 kg (150 lb 6.4 oz) (01/13/24 0447) SpO2: 98 % (01/14/24702) Allergies: Cat dander Activity: as tolerated Diet: age appropriate diet Code Status: Full Code Condition on Discharge: stable Isolation status: None Cognition: normal HOSPITAL CONSULTS ORDERED: UROLOGY CONSULT IP GASTROENTEROLOGY CONSULT IP ADULT PHYSICAL THERAPY CONSULT IP ADULT OCCUPATIONAL THERAPY CONSULT IP CARE MANAGEMENT CONSULT IP REFERRING PHYSICIAN: REF: SELF NO STREET ADDRESS AVAILABLE PRIMARY CARE PROVIDER: PCP: Kaiser Amanda MD [address] [place] [address] [place] [address] (office) [phone] (fax) Note: To contact a physician responsible for this patients hospital care, please call [employer] [phone]. I certify this patient is confined to the home and needs intermittent prison care, physical therapy and/or speech therapy, or continues to need occupational therapy. The patient is under my care and I have authorized services on this plan of care. The clinical findings of decrease in functional mobility secondary to decreased strength, decreased balance, and decreased endurance due to recent hospitalization and overall medical condition support the need for home health, and the patientdemonstrates a considerable and taxing effort when attempting to leave the home. The patient had a [id number] encounter with an allowed provider type on 01/14/2024 and the encounter was related to the primary reason for home health care. Under situations in which I am an acute/post acute facility physician who will not be following the patient's plan of care, I authorized services on this plan ofcare and I transfer the patient for plan of care certification to the primary care physician named ray samaniego who will follow the patient and update the plan of care. Primary care physician Kaiser Amanda MD I spent a total of 35 minutes coordinating, documenting, and providing care for this patient excluding time spent in the performance of separately billed services. documented in this encounter Discharge Instructions * Discharge Instr - [facility]* Liam Barajas MD - 01/14/2024 12:52 PM EDT Discharge Date: 01/14/2024 The information below provides you with the instructions and the list of medications you need to betaking following discharge from the hospital. If you have any questions, please ask before leaving. If you have questions after leaving, you can reach us at the numbers below. YOUR HOSPITAL PROVIDERS: Discharging Provider: Liam Barajas MD Provider Department: Hospital Medicine To reach this Provider Sunday through Sunday (8:00 AM to 4:30 PM) for any questions or test results: Call [phone] For after-hours concerns: Call [phone] and have your provider paged, or the provider second class welder for the Department of Hospital Medicine paged. Please note, the discharging provider will not be able to provide you with any medications refills.Please discuss these with your primary care provider. Worsening Symptoms: If you have new symptoms, or your symptoms get worse, please contact your Discharge Provider or Primary Care Provider (PCP). If these providers are not available, you can go to your local [facility] or [facility] Care Clinic during their business hours. In an EMERGENCY situation: Call 911 or go to the nearest emergency room. A BRIEF SUMMARY OF YOUR HOSPITAL STAY: You came to the hospital with: complaint of weakness Your main diagnosis at discharge was: Near syncope BPH with obstruction/lower urinary tract symptoms Type 2 diabetes mellitus with hemoglobin A1c goal of less than 7.5% Hyperlipidemia with target LDL less than 100 Ambulatory dysfunction Anticoagulated on warfarin Orthostatic hypotension Chaparro catheter in place Hypomagnesemia Diarrhea- resolved Loss of weight Acute urinary retention Other constipation Operations & Procedures performed: none Complications: none significant Inpatient test results that are pending at discharge: none Advance Directive Documented: Advance Directive Does the Patient have an Advance Directive? No YOUR FOLLOW UP APPOINTMENTS: Primary Care Provider Information: PCP: Kaiser Amanda MD [address] [facility] / [place] [phone] (office) [phone] (fax) An appointment was requested with your PCP (Kaiser Amanda MD) within 7 days. (Please take this form to this visit with your primary care physician.) You need the following studies in the future: CBC, CMP INSTRUCTIONS: Diet: Previous diet Activity: As tolerated Medications as listed Keep chaparro on Follow up with urology * Pharmacy [facility] - [facility]* [place], [facility] - 01/09/2024 4:13 PM EDT Warfarin dosing instructions for after discharge: You should have a prescription for Warfarin 5 mg tablets. Please take the following doses of warfarin by mouth after Discharge: Date Dose using warfarin 5 mg Tablets 01/13 Take 1 tablets = 5 mg 01/14 Take 1/2 tablets = 2.5 mg 01/15 Take 1/2 tablets = 2.5 mg /5 Take 1/2 tablets = 2.5 mg / Take 1/2 tablets = 2.5 mg The anticoagulation clinic pharmacist will provide you with further dosing and appointment instructions. If you have any questions regarding your anticoagulation therapy, please Contact Anticoagulation Clinic at [phone] or . Please share the following information with your provider: You were continued on WARFARIN for Indication for Anticoagulation: Pulmonary Embolism (PE) acquiredprior to this admission, Deep Vein Thrombosis (DVT) acquired prior to this admission. This is an Existing diagnosis. Your Target INR: 2.0-3.0(Prevention of systemic embolism) . Your Anticipated Duration of Therapy: Lifetime . Because you have been placed on a blood thinner, your therapy will need to be monitored on a regular basis. You will have your Anticoagulation Managed By: Anticoagulation Clinic . While you were in the hospital, you medication doses received and your corresponding labs were: INR Date/Time Value Ref Range Status 01/14/2024 05:14 AM 1.8 (H) 0.8 - 1.2 Final 01/13/2024 04:01 AM 1.9 (H) 0.8 - 1.2 Final 01/12/2024 04:33 AM 2.1 (H) 0.8 - 1.2 Final HGB Date/Time Value Ref Range Status 01/13/2024 04:01 AM 10.3 (L) 14.0 - 16.8 g/dL Final HCT Date/Time Value Ref Range Status 01/13/2024 04:01 AM 32.0 (L) 40.0 - 48.4 % Final PLT Date/Time Value Ref Range Status 01/13/2024 04:01 AM 166 140 - 400 K/uL Final Warfarin Administrations (last 720 hours) Date/Time Action Medication Dose 01/13/241952 Given Warfarin Sodium (Coumadin) tab 5 mg 5 mg 01/12/242208 Given Warfarin Sodium (Coumadin) tab 5 mg 5 mg 01/11/242107 Given Warfarin Sodium (Coumadin) tab 2.5 mg 2.5 mg documented in this encounter Progress Notes * Oralia Salazar [facility] - 01/14/2024 7:21 AM EDT Images from the original note were not included. PHARMACY ANTICOAGULATION WARFARIN (Coumadin) Assessment [facility] [address] Name: Lewis Camacho Location: [facility] 5A-[id number]/W Date: 01/14/2024 Time: 7:21 AM Lewis Camacho is a 73 year old male admitted for Near syncope. Pharmacy was consulted for warfarindosing and monitoring. Anticoagulation Therapy Goals Indication for Anticoagulation: Pulmonary Embolism (PE) acquired prior to this admission, Deep VeinThrombosis (DVT) acquired prior to this admission Anticipated Duration of Therapy: Lifetime Target INR: 2.0-3.0(Prevention of systemic embolism) Risk factors for anticoagulation therapy: Age>65 Prior to Admission Management Anticoagulation Managed By: Anticoagulation Clinic Tablet Size/Strength: 2.5 mg Anticoagulation Regimen: 2.5 mg Sun; 5 mg AOD Anticoagulation Episode Summary Current INR goal: 2.0-3.0 TTR: 51.1% (11.7 mo) Next INR check: 01/09/2024 INR from last check: Most recent INR: 1.8 (01/14/2024) Weekly max warfarin dose: Target end date: Indefinite INR check location: Preferred lab: Send INR reminders to: Indications History of pulmonary embolism (Primary) [Z86.711] History of DVT (deep vein thrombosis) [Z86.718] Comments: 2 episodes of VTE. Anticoagulation Care Providers Provider Role Specialty Phone number Nelly Chaney PA-C Referring Physician Stripper Shovel Operator [phone] Scott Skinner DO Referring Family Medicine [phone] Labs INR Date/Time Value Ref Range Status 01/14/2024 05:14 AM 1.8 (H) 0.8 - 1.2 Final 01/13/2024 04:01 AM 1.9 (H) 0.8 - 1.2 Final 01/12/2024 04:33 AM 2.1 (H) 0.8 - 1.2 Final HGB Date/Time Value Ref Range Status 01/13/2024 04:01 AM 10.3 (L) 14.0 - 16.8 g/dL Final HCT Date/Time Value Ref Range Status 01/13/2024 04:01 AM 32.0 (L) 40.0 - 48.4 % Final PLT Date/Time Value Ref Range Status 01/13/2024 04:01 AM 166 140 - 400 K/uL Final Objective Warfarin Administrations (last 720 hours) Date/Time Action Medication Dose 01/13/241952 Given Warfarin Sodium (Coumadin) tab 5 mg 5 mg 01/12/242208 Given Warfarin Sodium (Coumadin) tab 5 mg 5 mg 01/11/242107 Given Warfarin Sodium (Coumadin) tab 2.5 mg 2.5 mg Assessment & Plan Assessment Dietary Assessment: Normal/expected PO intake Today's INR : Subtherapeutic Does the patient have any medication interactions: No Please comment: omeprazole Are there bleeding concerns with the patient: No Does the patient have any upcoming procedures: No Plan Warfarin Plan: Give Warfarin Specify Warfarin Dose: 7.5 mg Is the patient receiving a Bridging Agent: No Warfarin Patient Education : Not needed Reason Education Not Needed: Follows with [facility] Oralia Salazar RPh * Alexander Meza RPh - 01/13/2024 3:15 PM EDT Images from the original note were not included. PHARMACY ANTICOAGULATION WARFARIN (Coumadin) Assessment [address] [place] [address] Name: Lewis Camacho Location: [facility] 5A-5132/W Date: 01/13/2024 Time: 3:15 PM Lewis Camacho is a 73 year old male admitted for Near syncope. Pharmacy was consulted for warfarindosing and monitoring. Anticoagulation Therapy Goals Indication for Anticoagulation: Pulmonary Embolism (PE) acquired prior to this admission, Deep VeinThrombosis (DVT) acquired prior to this admission Anticipated Duration of Therapy: Lifetime Target INR: 2.0-3.0(Prevention of systemic embolism) Risk factors for anticoagulation therapy: Age>65 Prior to Admission Management Anticoagulation Managed By: Anticoagulation Clinic Tablet Size/Strength: 2.5 mg Anticoagulation Regimen: 2.5mg on sunday, 5mg all other day Anticoagulation Episode Summary Current INR goal: 2.0-3.0 TTR: 51.2% (11.8 mo) Next INR check: 01/09/2024 INR from last check: Most recent INR: 1.9 (01/13/2024) Weekly max warfarin dose: Target end date: Indefinite INR check location: Preferred lab: Send INR reminders to: Indications History of pulmonary embolism (Primary) [Z86.711] History of DVT (deep vein thrombosis) [Z86.718] Comments: 2 episodes of VTE. Anticoagulation Care Providers Provider Role Specialty Phone number Nelly Chaney PA-C Referring Physician Stripper Shovel Operator [phone] Scott Skinner DO Referring Family Medicine [phone] Labs INR Date/Time Value Ref Range Status 01/13/2024 04:01 AM 1.9 (H) 0.8 - 1.2 Final 01/12/2024 04:33 AM 2.1 (H) 0.8 - 1.2 Final 01/11/2024 05:18 AM 2.7 (H) 0.8 - 1.2 Final HGB Date/Time Value Ref Range Status 01/13/2024 04:01 AM 10.3 (L) 14.0 - 16.8 g/dL Final HCT Date/Time Value Ref Range Status 01/13/2024 04:01 AM 32.0 (L) 40.0 - 48.4 % Final PLT Date/Time Value Ref Range Status 01/13/2024 04:01 AM 166 140 - 400 K/uL Final Objective Warfarin Administrations (last 720 hours) Date/Time Action Medication Dose 01/12/242208 Given Warfarin Sodium (Coumadin) tab 5 mg 5 mg 01/11/242107 Given Warfarin Sodium (Coumadin) tab 2.5 mg 2.5 mg Assessment & Plan Assessment Dietary Assessment: Normal/expected PO intake Today's INR : Subtherapeutic Does the patient have any medication interactions: No Please comment: omeprazole Are there bleeding concerns with the patient: No Does the patient have any upcoming procedures: No Plan Warfarin Plan: Give Warfarin Specify Warfarin Dose: Give 5mg by mouth Is the patient receiving a Bridging Agent: No Warfarin Patient Education : Not needed Reason Education Not Needed: follow acc Alexander Meza RPh * Liam Barajas MD - 01/13/2024 11:58 AM EDT Images from the original note were not included. [facility] 5A-5132/W 73 year old male with PMH significant for cervical/thoracic spine surgery s/p fall in 2019, type 2 diabetes, Hodgkin's lymphoma following with Dr. Morales, atrial fibrillation anticoagulated on warfarin, and most recently recurrent UTIs since October 04, 2023, urinary retention and BPH who was admitted with dysuria with last dose of abx 01/07 which was Cefpodoxime now with generalized weakness and ambulatory dysfunction. Seen by urology who recommends Chaparro cath until OP follow up. INTERVAL HISTORY: Continues with orthostatic hypotension. Last night developed an itch which resolved with benadryl. Denies cp pp or sob. No n/v Objective Physical Exam Most Recent Vital Signs: BP: 149 mmHg/77 mmHg (01/13/24736) Pulse: 70 (01/13/24738) Resp: 18 (01/13/24736) Temp: 36.39 C (09/01/24 0737) Temp Summary: Temp Min: 36.1 C (97 F) Max: 36.7 C (98.1 F) SpO2: 97 % (01/13/24 0737) O2 flow rate: Supplemental O2 Delivery: Room Air, None (01/13/24 0900) Physical Exam Vitals reviewed. Constitutional: Appearance: He is not ill-appearing or toxic-appearing. Cardiovascular: Rate and Rhythm: Normal rate. Heart sounds: No friction rub. No gallop. Pulmonary: Effort: Pulmonary effort is normal. Breath sounds: No wheezing, rhonchi or rales. Abdominal: General: Abdomen is flat. Bowel sounds are normal. There is no distension. Tenderness: There is no abdominal tenderness. There is no guarding. Musculoskeletal: Right lower leg: No edema. Left lower leg: No edema. Neurological: Mental Status: He is alert. Motor: Weakness present. Urethral Catheter Coude (Active) Number of days: 4 Peripheral Line Lower;Posterior;Right Arm 20 Gauge (Active) Number of days: 4 STUDIES: Encounter Orders Labs and other studies reviewed with pertinent findings noted below: Lab results within last 7 days (see chart for full results) Units 01/13/24 0401 01/11/24 0517 01/10/24 0502 HGB g/dL 10.3* 11.2* 11.2* HCT % 32.0* 34.6* 34.9* WBC K/uL 5.66 6.63 7.11 PLT K/uL 166 178 190 Lab results within last 7 days (see chart for full results) Units 01/13/24 0401 01/11/24 0517 01/10/24 0502 Sodium mmol/L 141 140 139 Potassium mmol/L 4.2 3.9 4.3 Chloride mmol/L 108* 105 104 CO2 mmol/L 25 25 25 BUN mg/dL 13 18 15 Creatinine mg/dL 0.9 1.0 0.9 Lab results within last 7 days (see chart for full results) Units 01/10/24 0502 01/09/24 0901 Magnesium mg/dL 1.5 1.2* ] Lab results within last 7 days (see chart for full results) Units 01/11/24 0517 01/10/24 0502 01/09/24 0901 Protein g/dL 5.5* 5.7* 5.9* Bilirubin, Total mg/dL 0.4 0.5 0.5 Alkaline Phosphatase U/L 44 46 47 AST U/L 20 32 22 ALT U/L 17 21 16 Lab results within last 7 days (see chart for full results) Units 01/09/24 2137 01/09/24 1540 01/09/24 1121 Troponin T, High Sensitivity ng/L 32* 32* 35* Recent Cultures (2 Weeks) 01/09/2024 11:18 AM QUANT URINE CULTURE GROWTH No significant growth No imaging results in the last 72 hours Assessment and Plan IMPRESSION : Principal Problem: Near syncope Active Problems: BPH with obstruction/lower urinary tract symptoms Type 2 diabetes mellitus with hemoglobin A1c goal of less than 7.5% (HCC) Hyperlipidemia with target LDL less than 100 Ambulatory dysfunction Anticoagulated on warfarin Orthostatic hypotension Chaparro catheter in place Hypomagnesemia Diarrhea Loss of weight Acute urinary retention Other constipation Resolved Problems: * No resolved hospital problems. * DIFFERENTIAL AND PLAN: Keep chaparro. Will need Urology OP follow up Patient has chronic nausea, vomiting, gradual weight loss and constipation symptoms- will need OP GI follow up. Will continue current regimen Will add Pyridostigmine given persistent standing hypotension despite, IVF for 2 days while on midodrine. SONG WRITER meds Continue to monitor orthostatic VS IV solumed once for current itch PHARMACOLOGIC VTE PROPHYLAXIS: warfarin check daily dose (PHARMACIST MANAGED) Warfarin Sodium CODE STATUS: Full Code EXPECTED DISCHARGE DATE: 01/14/2024 I spent a total of 35 minutes coordinating, documenting, and providing care for this patient excluding time spent in the performance of separately billed services. * Liam Barajas MD - 01/12/2024 1:35 PM EDT Images from the original note were not included. [facility] 5A-5132/W 73 year old male with PMH significant for cervical/thoracic spine surgery s/p fall in 2019, type 2 diabetes, Hodgkin's lymphoma following with Dr. Morales, atrial fibrillation anticoagulated on warfarin, and most recently recurrent UTIs since October 04, 2023, urinary retention and BPH who was admitted with dysuria with last dose of abx 8/27 which was Cefpodoxime now with generalized weakness and ambulatory dysfunction. Seen by urology who recommends Chaparro cath until OP follow up. INTERVAL HISTORY: Continues with orthostatic hypotension. Denies cp pp or sob. No n/v Objective Physical Exam Most Recent Vital Signs: BP: 144 mmHg/88 mmHg (01/12/241106) Pulse: 68 (01/12/24 110) Resp: 18 (01/12/241106) Temp: 36.5 C (01/12/241106) Temp Summary: Temp Min: 35.9 C (96.6 F) Max: 36.5 C (97.7 F) SpO2: 98 % (01/12/241106) O2 flow rate: Supplemental O2 Delivery: Room Air, None (01/12/241106) Physical Exam Vitals reviewed. Constitutional: Appearance: He is not ill-appearing or toxic-appearing. Cardiovascular: Rate and Rhythm: Normal rate. Heart sounds: No friction rub. No gallop. Pulmonary: Effort: Pulmonary effort is normal. Breath sounds: No wheezing, rhonchi or rales. Abdominal: General: Abdomen is flat. Bowel sounds are normal. There is no distension. Tenderness: There is no abdominal tenderness. There is no guarding. Musculoskeletal: Right lower leg: No edema. Left lower leg: No edema. Neurological: Mental Status: He is alert. Motor: Weakness present. Urethral Catheter Coude (Active) Number of days: 3 Peripheral Line Lower;Posterior;Right Arm 20 Gauge (Active) Number of days: 3 STUDIES: Encounter Orders Labs and other studies reviewed with pertinent findings noted below: Lab results within last 7 days (see chart for full results) Units 01/11/24 0517 01/10/24 0502 01/09/24 0901 HGB g/dL 11.2* 11.2* 11.9* HCT % 34.6* 34.9* 35.8* WBC K/uL 6.63 7.11 7.98 PLT K/uL 178 190 203 Lab results within last 7 days (see chart for full results) Units 01/11/24 0517 01/10/24 0502 01/09/24 0901 Sodium mmol/L 140 139 140 Potassium mmol/L 3.9 4.3 4.2 Chloride mmol/L 105 104 104 CO2 mmol/L 25 25 24 BUN mg/dL 18 15 20 Creatinine mg/dL 1.0 0.9 1.0 Lab results within last 7 days (see chart for full results) Units 01/10/24 0502 01/09/24 0901 Magnesium mg/dL 1.5 1.2* ] Lab results within last 7 days (see chart for full results) Units 01/11/24 0517 01/10/24 0502 01/09/24 0901 Protein g/dL 5.5* 5.7* 5.9* Bilirubin, Total mg/dL 0.4 0.5 0.5 Alkaline Phosphatase U/L 44 46 47 AST U/L 20 32 22 ALT U/L 17 21 16 Lab results within last 7 days (see chart for full results) Units 01/09/24 2137 01/09/24 1540 01/09/24 1121 Troponin T, High Sensitivity ng/L 32* 32* 35* Recent Cultures (2 Weeks) 01/09/2024 12/29/2023 11:18 AM 3:11 PM QUANT URINE CULTURE GROWTH No significant growth >100,000 colonies/mL Klebsiella pneumoniae CT ABD/PELVIS W IV AND W ORAL CONTRAST Result Date: 01/09/2024 IMPRESSION: 1. No acute inflammatory or obstructive process is identified 2. 1.3 cm hyperdense right renal lesion is stable but incompletely characterized. THIS DOCUMENT HAS BEEN ELECTRONICALLY SIGNED BY CHARLES SANDHU MD Assessment and Plan IMPRESSION : Principal Problem: Near syncope Active Problems: BPH with obstruction/lower urinary tract symptoms Type 2 diabetes mellitus with hemoglobin A1c goal of less than 7.5% (HCC) Hyperlipidemia with target LDL less than 100 Ambulatory dysfunction Anticoagulated on warfarin Orthostatic hypotension Chaparro catheter in place Hypomagnesemia Diarrhea Loss of weight Acute urinary retention Other constipation Resolved Problems: * No resolved hospital problems. * DIFFERENTIAL AND PLAN: Keep chaparro. Will need Urology OP follow up Patient has chronic nausea, vomiting, gradual weight loss and constipation symptoms- will need OP GI follow up. Will continue current regimen SONG WRITER meds Continue to assess orthostatic VS. Will consider Pyridostigmine if orthostatic VS do not improve. PHARMACOLOGIC VTE PROPHYLAXIS: warfarin check daily dose (PHARMACIST MANAGED) Warfarin Sodium CODE STATUS: Full Code EXPECTED DISCHARGE DATE: 01/12/2024 I spent a total of 35 minutes coordinating, documenting, and providing care for this patient excluding time spent in the performance of separately billed services. * Alexander Meza [facility] - 01/12/2024 7:48 AM EDT PHARMACY ANTICOAGULATION WARFARIN (Coumadin) Assessment [address] [address] Name: Lewis Camacho Location: [facility] 5A-5132/W Date: 01/12/2024 Time: 7:48 AM Lewis Camacho is a 73 year old male admitted for Near syncope. Pharmacy was consulted for warfarindosing and monitoring. Anticoagulation Therapy Goals Indication for Anticoagulation: Pulmonary Embolism (PE) acquired prior to this admission, Deep VeinThrombosis (DVT) acquired prior to this admission Anticipated Duration of Therapy: Lifetime Target INR: 2.0-3.0(Prevention of systemic embolism) Risk factors for anticoagulation therapy: Age>65 Prior to Admission Management Anticoagulation Managed By: Anticoagulation Clinic Tablet Size/Strength: 2.5 mg Anticoagulation Regimen: 2.5mg on sunday, 5mg all other day Anticoagulation Episode Summary Current INR goal: 2.0-3.0 TTR: 51.3% (11.8 mo) Next INR check: 01/09/2024 INR from last check: Most recent INR: 2.1 (01/12/2024) Weekly max warfarin dose: Target end date: Indefinite INR check location: Preferred lab: Send INR reminders to: Indications History of pulmonary embolism (Primary) [Z86.711] History of DVT (deep vein thrombosis) [Z86.718] Comments: 2 episodes of VTE. Anticoagulation Care Providers Provider Role Specialty Phone number Nelly Chaney PA-C Referring Physician Stripper Shovel Operator [phone] Scott Skinner DO Referring Family Medicine [phone] Labs INR Date/Time Value Ref Range Status 01/12/2024 04:33 AM 2.1 (H) 0.8 - 1.2 Final 01/11/2024 05:18 AM 2.7 (H) 0.8 - 1.2 Final 01/10/2024 05:02 AM 3.3 (H) 0.8 - 1.2 Final HGB Date/Time Value Ref Range Status 01/11/2024 05:17 AM 11.2 (L) 14.0 - 16.8 g/dL Final HCT Date/Time Value Ref Range Status 01/11/2024 05:17 AM 34.6 (L) 40.0 - 48.4 % Final PLT Date/Time Value Ref Range Status 01/11/2024 05:17 AM 178 140 - 400 K/uL Final Objective Warfarin Administrations (last 720 hours) Date/Time Action Medication Dose 01/11/242107 Given Warfarin Sodium (Coumadin) tab 2.5 mg 2.5 mg Assessment & Plan Assessment Dietary Assessment: Normal/expected PO intake Today's INR : Therapeutic Does the patient have any medication interactions: No Please comment: omeprazole Are there bleeding concerns with the patient: No Does the patient have any upcoming procedures: No Plan Warfarin Plan: Give Warfarin Specify Warfarin Dose: 5mg Is the patient receiving a Bridging Agent: No Warfarin Patient Education : Not needed Reason Education Not Needed: follow acc Alexander Meza RPh * Liam Barajas MD - 01/11/2024 4:19 PM EDT Images from the original note were not included. [facility] 5A-5132/W 73 year old male with PMH significant for cervical/thoracic spine surgery s/p fall in 2019, type 2 diabetes, Hodgkin's lymphoma following with Dr. Morales, atrial fibrillation anticoagulated on warfarin, and most recently recurrent UTIs since October 04, 2023, urinary retention and BPH who was admitted with dysuria with last dose of abx 01/07 which was Cefpodoxime now with generalized weakness and ambulatory dysfunction. Seen by urology who recommends Chaparro cath until OP follow up. INTERVAL HISTORY: Continues with orthostatic hypotension. Denies cp pp or sob. No n/v Objective Physical Exam Most Recent Vital Signs: BP: 124 mmHg/66 mmHg (01/11/24 1515) Pulse: 66 (01/11/24 1515) Resp: 16 (01/11/24 1515) Temp: 35.89 C (01/11/24 1515) Temp Summary: Temp Min: 35.9 C (96.6 F) Max: 36.4 C (97.5 F) SpO2: 96 % (01/11/24 1515) O2 flow rate: Supplemental O2 Delivery: Room Air, None (01/11/24 151) Physical Exam Vitals reviewed. Constitutional: Appearance: He is not ill-appearing or toxic-appearing. Cardiovascular: Rate and Rhythm: Normal rate. Heart sounds: No friction rub. No gallop. Pulmonary: Effort: Pulmonary effort is normal. Breath sounds: No wheezing, rhonchi or rales. Abdominal: General: Abdomen is flat. Bowel sounds are normal. There is no distension. Tenderness: There is no abdominal tenderness. There is no guarding. Musculoskeletal: Right lower leg: No edema. Left lower leg: No edema. Neurological: Mental Status: He is alert. Motor: Weakness present. Urethral Catheter Coude (Active) Number of days: 2 Peripheral Line Lower;Posterior;Right Arm 20 Gauge (Active) Number of days: 2 STUDIES: Encounter Orders Labs and other studies reviewed with pertinent findings noted below: Lab results within last 7 days (see chart for full results) Units 01/11/24 0517 01/10/24 0502 01/09/24 0901 HGB g/dL 11.2* 11.2* 11.9* HCT % 34.6* 34.9* 35.8* WBC K/uL 6.63 7.11 7.98 PLT K/uL 178 190 203 Lab results within last 7 days (see chart for full results) Units 01/11/24 0517 01/10/24 0502 01/09/24 0901 Sodium mmol/L 140 139 140 Potassium mmol/L 3.9 4.3 4.2 Chloride mmol/L 105 104 104 CO2 mmol/L 25 25 24 BUN mg/dL 18 15 20 Creatinine mg/dL 1.0 0.9 1.0 Lab results within last 7 days (see chart for full results) Units 01/10/24 0502 01/09/24 0901 Magnesium mg/dL 1.5 1.2* ] Lab results within last 7 days (see chart for full results) Units 01/11/24 0517 01/10/24 0502 01/09/24 0901 Protein g/dL 5.5* 5.7* 5.9* Bilirubin, Total mg/dL 0.4 0.5 0.5 Alkaline Phosphatase U/L 44 46 47 AST U/L 20 32 22 ALT U/L 17 21 16 Lab results within last 7 days (see chart for full results) Units 01/09/24 2137 01/09/24 1540 01/09/24 1121 Troponin T, High Sensitivity ng/L 32* 32* 35* Recent Cultures (2 Weeks) 01/09/2024 12/29/2023 11:18 AM 3:11 PM QUANT URINE CULTURE GROWTH No significant growth >100,000 colonies/mL Klebsiella pneumoniae CT ABD/PELVIS W IV AND W ORAL CONTRAST Result Date: 01/09/2024 IMPRESSION: 1. No acute inflammatory or obstructive process is identified 2. 1.3 cm hyperdense right renal lesion is stable but incompletely characterized. THIS DOCUMENT HAS BEEN ELECTRONICALLY SIGNED BY CHARLES SANDHU MD XR CHEST 1 VIEW Result Date: 01/09/2024 IMPRESSION: No acute abnormality. THIS DOCUMENT HAS BEEN ELECTRONICALLY SIGNED BY FELECIA WARREN MD Assessment and Plan IMPRESSION : Principal Problem: Near syncope Active Problems: BPH with obstruction/lower urinary tract symptoms Type 2 diabetes mellitus with hemoglobin A1c goal of less than 7.5% (HCC) Hyperlipidemia with target LDL less than 100 Ambulatory dysfunction Anticoagulated on warfarin Orthostatic hypotension Chaparro catheter in place Hypomagnesemia Diarrhea Loss of weight Acute urinary retention Other constipation Resolved Problems: * No resolved hospital problems. * DIFFERENTIAL AND PLAN: Appreciate urology input. Keep chaparro. Will need OP follow up Patient has chronic nausea, vomiting, gradual weight loss and constipation symptoms- will need OP GI follow up. Will continue current regimen SONG WRITER meds Will assess orthostatic VS. IVF for 1 mores day. Will consider Pyridostigmine if orthostatic VS do not improve. PHARMACOLOGIC VTE PROPHYLAXIS: warfarin check daily dose (PHARMACIST MANAGED) Warfarin Sodium CODE STATUS: Full Code EXPECTED DISCHARGE DATE: 01/12/2024 I spent a total of 35 minutes coordinating, documenting, and providing care for this patient excluding time spent in the performance of separately billed services. * Ritesh Jackson [facility] - 01/11/2024 8:48 AM EDT PHARMACY ANTICOAGULATION WARFARIN (Coumadin) Assessment [address] [place] [address] Name: Lewis Camacho Location: [facility] 5A-5132/W Date: 01/11/2024 Time: 8:48 AM Lewis Camacho is a 73 year old male admitted for Near syncope. Pharmacy was consulted for warfarindosing and monitoring. Anticoagulation Therapy Goals Indication for Anticoagulation: Deep Vein Thrombosis (DVT) acquired prior to this admission Anticipated Duration of Therapy: Lifetime Target INR: 2.0-3.0(Prevention of systemic embolism) Risk factors for anticoagulation therapy: Age>65 Prior to Admission Management Anticoagulation Managed By: Anticoagulation Clinic Tablet Size/Strength: 5 mg Anticoagulation Regimen: 2.5mg on sundays. 5mg allother days Anticoagulation Episode Summary Current INR goal: 2.0-3.0 TTR: 51.5% (11.8 mo) Next INR check: 01/09/2024 INR from last check: Weekly max warfarin dose: Target end date: Indefinite INR check location: Preferred lab: Send INR reminders to: Indications History of pulmonary embolism (Primary) [Z86.711] History of DVT (deep vein thrombosis) [Z86.718] Comments: 2 episodes of VTE. Anticoagulation Care Providers Provider Role Specialty Phone number Nelly Chaney PA-C Referring Physician Stripper Shovel Operator [phone] Scott Skinner DO Referring Family Medicine [phone] Labs INR Date/Time Value Ref Range Status 01/11/2024 05:18 AM 2.7 (H) 0.8 - 1.2 Final 01/10/2024 05:02 AM 3.3 (H) 0.8 - 1.2 Final 01/09/2024 09:01 AM 3.8 (H) 0.8 - 1.2 Final HGB Date/Time Value Ref Range Status 01/11/2024 05:17 AM 11.2 (L) 14.0 - 16.8 g/dL Final HCT Date/Time Value Ref Range Status 01/11/2024 05:17 AM 34.6 (L) 40.0 - 48.4 % Final PLT Date/Time Value Ref Range Status 01/11/2024 05:17 AM 178 140 - 400 K/uL Final Objective Warfarin Administrations (last 720 hours) None Assessment & Plan Assessment Dietary Assessment: Normal/expected PO intake Today's INR : Therapeutic Does the patient have any medication interactions: Yes Please comment: omeprazole Are there bleeding concerns with the patient: No Does the patient have any upcoming procedures: No Plan Warfarin Plan: Give Warfarin Specify Warfarin Dose: give 2.5mg tonight Is the patient receiving a Bridging Agent: No Warfarin Patient Education : Not needed Reason Education Not Needed: acc Ritesh Jackson RPh * Liam Barajas MD - 01/10/2024 4:19 PM EDT Images from the original note were not included. [facility] 5A-5132/W 73 year old male with PMH significant for cervical/thoracic spine surgery s/p fall in 2019, type 2 diabetes, Hodgkin's lymphoma following with Dr. Morales, atrial fibrillation anticoagulated on warfarin, and most recently recurrent UTIs since October 04, 2023, urinary retention and BPH who was admitted with dysuria with last dose of abx 01/07 which was Cefpodoxime now with generalized weakness and ambulatory dysfunction. Seen by urology who recommends Chaparro cath until OP follow up. INTERVAL HISTORY: Feeling better today. Denies cp pp or sob. No n/v Physical therapist reports orthostatic hypotension. Dizziness. Objective Physical Exam Most Recent Vital Signs: BP: 125 mmHg/71 mmHg (01/10/24 1530) Pulse: 83 (01/10/24 1530) Resp: 16 (01/10/24 1530) Temp: 36 C (01/10/24 1530) Temp Summary: Temp Min: 36 C (96.8 F) Max: 37.1 C (98.8 F) SpO2: 96 % (01/10/24 1530) O2 flow rate: Supplemental O2 Delivery: Room Air, None (01/10/24 153) Physical Exam Vitals reviewed. Constitutional: Appearance: He is not ill-appearing or toxic-appearing. Cardiovascular: Rate and Rhythm: Normal rate. Heart sounds: No friction rub. No gallop. Pulmonary: Effort: Pulmonary effort is normal. Breath sounds: No wheezing, rhonchi or rales. Abdominal: General: Abdomen is flat. Bowel sounds are normal. There is no distension. Tenderness: There is no abdominal tenderness. There is no guarding. Musculoskeletal: Right lower leg: No edema. Left lower leg: No edema. Neurological: Mental Status: He is alert. Motor: Weakness present. Urethral Catheter Coude (Active) Number of days: 1 Peripheral Line Lower;Posterior;Right Arm 20 Gauge (Active) Number of days: 1 STUDIES: Encounter Orders Labs and other studies reviewed with pertinent findings noted below: Lab results within last 7 days (see chart for full results) Units 01/10/24 0502 01/09/24 0901 HGB g/dL 11.2* 11.9* HCT % 34.9* 35.8* WBC K/uL 7.11 7.98 PLT K/uL 190 203 Lab results within last 7 days (see chart for full results) Units 01/10/24 0502 01/09/24 0901 Sodium mmol/L 139 140 Potassium mmol/L 4.3 4.2 Chloride mmol/L 104 104 CO2 mmol/L 25 24 BUN mg/dL 15 20 Creatinine mg/dL 0.9 1.0 Lab results within last 7 days (see chart for full results) Units 01/10/24 0502 01/09/24 0901 Magnesium mg/dL 1.5 1.2* ] Lab results within last 7 days (see chart for full results) Units 01/10/24 0502 01/09/24 0901 Protein g/dL 5.7* 5.9* Bilirubin, Total mg/dL 0.5 0.5 Alkaline Phosphatase U/L 46 47 AST U/L 32 22 ALT U/L 21 16 Lab results within last 7 days (see chart for full results) Units 01/09/24 2137 01/09/24 1540 01/09/24 1121 Troponin T, High Sensitivity ng/L 32* 32* 35* Recent Cultures (2 Weeks) 01/09/2024 12/29/2023 11:18 AM 3:11 PM QUANT URINE CULTURE GROWTH No significant growth >100,000 colonies/mL Klebsiella pneumoniae CT ABD/PELVIS W IV AND W ORAL CONTRAST Result Date: 01/09/2024 IMPRESSION: 1. No acute inflammatory or obstructive process is identified 2. 1.3 cm hyperdense right renal lesion is stable but incompletely characterized. THIS DOCUMENT HAS BEEN ELECTRONICALLY SIGNED BY CHARLES SANDHU MD XR CHEST 1 VIEW Result Date: 01/09/2024 IMPRESSION: No acute abnormality. THIS DOCUMENT HAS BEEN ELECTRONICALLY SIGNED BY FELECIA WARREN MD Assessment and Plan IMPRESSION : Principal Problem: Near syncope Active Problems: BPH with obstruction/lower urinary tract symptoms Type 2 diabetes mellitus with hemoglobin A1c goal of less than 7.5% (HCC) Hyperlipidemia with target LDL less than 100 Ambulatory dysfunction Anticoagulated on warfarin Orthostatic hypotension Chaparro catheter in place Hypomagnesemia Diarrhea Loss of weight Acute urinary retention Other constipation Resolved Problems: * No resolved hospital problems. * DIFFERENTIAL AND PLAN: Appreciate urology input. Keep chaparro. Will need OP follow up Patient has chronic nausea, vomiting, gradual weight loss and constipation symptoms. 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 IVF for today. PHARMACOLOGIC VTE PROPHYLAXIS: warfarin check daily dose (PHARMACIST MANAGED) Warfarin Sodium CODE STATUS: Full Code EXPECTED DISCHARGE DATE: 01/12/2024 I spent a total of 35 minutes coordinating, documenting, and providing care for this patient excluding time spent in the performance of separately billed services. * Mary Lou Garza CRNP - 01/10/2024 11:32 AM EDT PROGRESS NOTE - Gastroenterology Service [facility] [address] Name: Lewis Camacho Location: [facility] 5A-5132/W Date: 01/10/2024 Time: 11:33 AM SUBJECTIVE: The patient was seen and examined, chart reviewed. Pt doing well, tolerating some solids for breakfast, no n/v, had 2 BMs yesterday, mild mid abd discomfort. ROS: Constitutional: No report of fever, chills or sweats Cardiac: No chest pain. Pulmonary: No cough or shortness of breath GI: Per HPI, otherwise negative. OBJECTIVE: Vital Signs Last 24 Hours: Systolic BP: Most Recent Systolic BP Av.8 mmHg Min: 120 mmHg Max: 155 mmHg Temperature: Most Recent Temperature Av.6 C Min: 36.22 C Max: 37.11 C Pulse: Pulse Av.6 Min: 62 Max: 86 Respirations: Resp Av.4 Min: 16 Max: 18 SpO2: SpO2 Av % Min: 93 % Max: 99 % Constitutional: No acute distress. HEENT: No conjunctival pallor, sclera anicteric. CV: Heart is regular without murmur, rub or gallop. Chest: Clear to percussion and auscultation. GI: Abdomen is soft, non-tender and bowel sounds normal. Extremities: No edema. Neurology: Awake and alert. Oriented to person, place, and time. No asterixis present. LABS: Labs reviewed as indicated below: Latest Reference Range & Units 01/10/24 05:02 01/10/24 08:21 Sodium 135 - 146 mmol/L 139 Potassium 3.5 - 5.1 mmol/L 4.3 Chloride 98 - 107 mmol/L 104 CO2 22 - 32 mmol/L 25 BUN 6 - 20 mg/dL 15 Creatinine 0.6 - 1.2 mg/dL 0.9 Estimated Glomerular Filtration Rate >=60 mL/min 87 Anion Gap 7 - 15 mmol/L 10 Glucose 70 - 120 mg/dL 91 Calcium 8.4 - 10.2 mg/dL 8.3 (L) Magnesium 1.5 - 2.6 mg/dL 1.5 Phosphorus 2.5 - 4.8 mg/dL 4.2 Protein 6.0 - 8.3 g/dL 5.7 (L) INR 0.8 - 1.2 3.3 (H) Prothrombin Time 11.6 - 15.2 seconds 33.8 (H) Glucose Meter 70 - 120 mg/dL 87 CBC Rpt ! WBC 4.00 - 10.80 K/uL 7.11 RBC 4.50 - 5.25 M/uL 3.82 HGB 14.0 - 16.8 g/dL 11.2 (L) HCT 40.0 - 48.4 % 34.9 (L) MCV 82.0 - 99.5 fL 91.4 MCH 27.0 - 34.0 pg 29.3 MCHC 32.0 - 36.0 g/dL 32.1 RDW 11.5 - 15.5 % 15.1 PLT 140 - 400 K/uL 190 MPV 6.6 - 11.1 fL 8.8 Albumin 3.8 - 5.0 g/dL 3.2 (L) AST 10 - 50 U/L 32 ALT 10 - 50 U/L 21 Alkaline Phosphatase 35 - 130 U/L 46 Bilirubin, Total <=1.2 mg/dL 0.5 (L): Data is abnormally low (H): Data is abnormally high !: Data is abnormal Rpt: View report in Results Review for more information IMAGING: CT abd/pelvis w IV contrast: 1. No acute inflammatory or obstructive process is identified 2. 1.3 cm hyperdense right renal lesion is stable but incompletely characterized. IMPRESSION: Lewis Camacho is a(n) 73 year old male who presents with weakness, near syncope, dysuria symptom, just completed antibx. Patient has chronic nausea, vomiting, gradual weight loss and constipation symptoms.DDX: med side effect, gastroparesis, IBS -C related, obstructive process. Was reduced scheduled for EGD and colonoscopy evaluation in March. He vomited food material while undergoing GES, thus not completed. CT abd/pelvis overnight wo acute or obstructive findings. He is moving his bowels, no nausea or vomiting, mild mid abdominal discomfort. RECOMMENDATIONS/PLAN: - Miralax 17g daily + Fiber packet daily. May consider Linzess 72mcg if these Miralax + Fiber doesn't improve constipation significantly. - Omeprazole 20mg daily - Recommend anemia workup - Symptomatic management with antiemetics prn - Nutrition consult - Keep already scheduled EGD and colonoscopy on 03/26/2024 for now I have discussed the case with my attending, Dr Zuhair Sandoval. Associated attestation - Zuhair Sandoval MD - 01/10/2024 4:21 PM EDT I performed a history and physical examination of the patient, including specifically on physical exam - soft abomen. I have discussed the patient's management with Mary Lou Kayla. Please refer tothe nurse practitioner's note for the documented findings and plan of care. - Patient eating, no CT abnormalities - outpt EGD * Ritesh Jackson [facility] - 01/10/2024 11:24 AM EDT PHARMACY ANTICOAGULATION WARFARIN (Coumadin) Assessment [address] [place] [address] Name: Lewis Camacho Location: [facility] 5A-5132/W Date: 01/10/2024 Time: 11:24 AM Lewis Camacho is a 73 year old male admitted for Near syncope. Pharmacy was consulted for warfarindosing and monitoring. Anticoagulation Therapy Goals Indication for Anticoagulation: Deep Vein Thrombosis (DVT) acquired prior to this admission Anticipated Duration of Therapy: Lifetime Target INR: 2.0-3.0(Prevention of systemic embolism) Risk factors for anticoagulation therapy: Age>65 Prior to Admission Management Anticoagulation Managed By: Anticoagulation Clinic Tablet Size/Strength: 5 mg Anticoagulation Regimen: 2.5mg on sundays, 5mg all other days Anticoagulation Episode Summary Current INR goal: 2.0-3.0 TTR: 51.6% (11.9 mo) Next INR check: 01/09/2024 INR from last check: Weekly max warfarin dose: Target end date: Indefinite INR check location: Preferred lab: Send INR reminders to: Indications History of pulmonary embolism (Primary) [Z86.711] History of DVT (deep vein thrombosis) [Z86.718] Comments: 2 episodes of VTE. Anticoagulation Care Providers Provider Role Specialty Phone number Nelly Chaney PA-C Referring Physician Stripper Shovel Operator [phone] Scott Skinner DO Referring Family Medicine [phone] Labs INR Date/Time Value Ref Range Status 01/10/2024 05:02 AM 3.3 (H) 0.8 - 1.2 Final 01/09/2024 09:01 AM 3.8 (H) 0.8 - 1.2 Final HGB Date/Time Value Ref Range Status 01/10/2024 05:02 AM 11.2 (L) 14.0 - 16.8 g/dL Final HCT Date/Time Value Ref Range Status 01/10/2024 05:02 AM 34.9 (L) 40.0 - 48.4 % Final PLT Date/Time Value Ref Range Status 01/10/2024 05:02 AM 190 140 - 400 K/uL Final Objective Warfarin Administrations (last 720 hours) None Assessment & Plan Assessment Dietary Assessment: Normal/expected PO intake Today's INR : Supratherapeutic Does the patient have any medication interactions: Yes Please comment: omeprazole Are there bleeding concerns with the patient: No Does the patient have any upcoming procedures: No Plan Warfarin Plan: Hold Warfarin Specify Warfarin Dose: 0mg tonight Is the patient receiving a Bridging Agent: No Warfarin Patient Education : Not needed Reason Education Not Needed: acc Ritesh Jackson RPh * Nasir Varela RP - 01/09/2024 4:12 PM EDT Images from the original note were not included. PHARMACY ANTICOAGULATION WARFARIN (Coumadin) Assessment [facility] [address] Name: Lewis Camacho Location: [facility] 5A-5132/W Date: 01/09/2024 Time: 4:12 PM Lewis Camacho is a 73 year old male admitted for Near syncope. Pharmacy was consulted for warfarindosing and monitoring. Anticoagulation Therapy Goals Indication for Anticoagulation: Deep Vein Thrombosis (DVT) acquired prior to this admission, Pulmonary Embolism (PE) acquired prior to this admission Anticipated Duration of Therapy: Lifetime Target INR: 2.0-3.0(Prevention of systemic embolism) Risk factors for anticoagulation therapy: Age>65 Prior to Admission Management Anticoagulation Managed By: Anticoagulation Clinic Tablet Size/Strength: 5 mg Anticoagulation Regimen: 2.5 mg on Sundays. 5 mg all other days. Anticoagulation Episode Summary Current INR goal: 2.0-3.0 TTR: 51.7% (11.9 mo) Next INR check: 01/09/2024 INR from last check: 4.1 (12/19/2023) Most recent INR: 3.8 (01/09/2024) Weekly max warfarin dose: Target end date: Indefinite INR check location: Preferred lab: Send INR reminders to: Indications History of pulmonary embolism (Primary) [Z86.711] History of DVT (deep vein thrombosis) [Z86.718] Comments: 2 episodes of VTE. Anticoagulation Care Providers Provider Role Specialty Phone number Nelly Chaney PA-C Referring Physician Stripper Shovel Operator [phone] Scott Skinner DO Referring Family Medicine [phone] Labs INR Date/Time Value Ref Range Status 01/09/2024 09:01 AM 3.8 (H) 0.8 - 1.2 Final HGB Date/Time Value Ref Range Status 01/09/2024 09:01 AM 11.9 (L) 14.0 - 16.8 g/dL Final HCT Date/Time Value Ref Range Status 01/09/2024 09:01 AM 35.8 (L) 40.0 - 48.4 % Final PLT Date/Time Value Ref Range Status 01/09/2024 09:01 AM 203 140 - 400 K/uL Final Objective Warfarin Administrations (last 720 hours) None Assessment & Plan Assessment Dietary Assessment: Normal/expected PO intake Today's INR : Supratherapeutic Does the patient have any medication interactions: Yes Please comment: Omeprazole Are there bleeding concerns with the patient: No Does the patient have any upcoming procedures: No Plan Warfarin Plan: Hold Warfarin Specify Warfarin Dose: 0 mg by mouth tonight. Is the patient receiving a Bridging Agent: No Warfarin Patient Education : Not needed Reason Education Not Needed: Followed by [facility] Nasir Varela RPh documented in this encounter H&P Notes * Kinjal Hercules CRNP - 01/09/2024 1:29 PM EDT Images from the original note were not included. [facility] H3/X PRESENTING PROBLEM: dysuria, generalized weakness, near syncope HPI: 73 year old male with PMH significant for cervical/thoracic spine surgery s/p fall in 2019, type 2 diabetes, Hodgkin's lymphoma following with Dr. Morales, atrial fibrillation anticoagulated on warfarin, and most recently recurrent UTIs since October 04, 2023, urinary retention and BPH who presented to the ED today with his with reports of ongoing dysuria with last dose of abx last evening which was Cefpodoxime, generalized weakness where is needs to ambulate with his walker which is the baseline but 1 assist with using gait belt and still patient gets weak during ambulation per . This morning he had an episode of diaphoresis while ambulating to the bathroom with the along with increased generalized weakness. Due to weakness he is more difficult for to manage at home at present time. He has been following with urology and planned for cystoscopy but reports this cannot be done until 02/24/24 per urology but they are on a cancellation list. Today patient had the diaphoresis and weakness as noted previously along with dysuria, increased generalized weakness. Denies fever or chills. + dizziness at times when he is up. Denies SOB or chest pain, pressure, palpitations. Ongoing issues with eating -- denies nausea but notes that when he eats he "goes right to the bathroom" with episodes of diarrhea per . States that he was 250 lbs butcurrently 140 lbs over the past few years. They have seen GI for this and are currently using metamucil daily with miralax every other day because without laxatives then he has severe constipation --no bowel movements without medication per . Also reported that he attempted gastric emptying study 01/02/24 but vomited with the test so it was unable to be completed. Notes that he has ongoing issues with urination -- dysuria, urgency, frequency. Has had a chaparro in the past, been on 5 abx sinceMay 23 of this year and is continuing to follow with urology as he is on Flomax and Proscar. In ED today, patient VS stable. Troponins 39 and 35 above baseline of 16-20 but no chest pain reported by patient. BMP unremarkable with glucose 89. Magnesium 1.2. INR 3.8. WBC 7.98 with H/H 11.9/35.8. AST/ALT WNL. UA with large blood and 26-50 bacteria. Sent for culture. CXR negative. Magnesium replacement in ED, NSS 500 ml bolus provided in ED. Nursing attempted straight cath X 1 but met resistance. Nursing 2nd attempt they were able to place 16 F coude chaparro catheter. Requesting admission for near syncope, generalized weakness, and urinary retention. Subjective Patient's past history, medications, and allergies were reviewed. Objective Physical Exam Most Recent Vital Signs: BP: 125 mmHg/74 mmHg (01/09/24 1300) Pulse: 71 (01/09/24 1300) Resp: 16 (01/09/24 1300) Temp: 36.11 C (01/09/24 0829) Temp Summary: Temp Min: 36.1 C (97 F) Max: 36.1 C (97 F) SpO2: 95 % (01/09/24 0932) O2 flow rate: Supplemental O2 Delivery: Wt Readings from Last 3 Encounters: 01/09/24 68 kg (150 lb) 01/04/24 67.4 kg (148 lb 9.6 oz) 12/29/23 68.5 kg (151 lb) Physical Exam Constitutional: General: He is not in acute distress. Appearance: He is ill-appearing. He is not toxic-appearing or diaphoretic. HENT: Head: Normocephalic. Right Ear: External ear normal. Left Ear: External ear normal. Nose: Nose normal. No congestion or rhinorrhea. Mouth/Throat: Mouth: Mucous membranes are moist. Eyes: General: No scleral icterus. Right eye: No discharge. Left eye: No discharge. Conjunctiva/sclera: Conjunctivae normal. Cardiovascular: Rate and Rhythm: Normal rate and regular rhythm. Heart sounds: Normal heart sounds. No murmur heard. No friction rub. No gallop. Comments: NSR per EKG done in ED and interpreted by PHILIP Mcdermott upon admission No significant change from previous Pulmonary: Effort: Pulmonary effort is normal. No respiratory distress. Breath sounds: Normal breath sounds. No wheezing, rhonchi or rales. Abdominal: General: Bowel sounds are normal. There is no distension. Palpations: Abdomen is soft. Tenderness: There is no abdominal tenderness. There is no guarding or rebound. Genitourinary: Comments: Chaparro intact, patent, draining clear yellow colored urine Musculoskeletal: General: No swelling or tenderness. Cervical back: Neck supple. Right lower leg: No edema. Left lower leg: No edema. Comments: Generalized weakness 2/5 bilat UE strength 2/5 bilat LE strength Skin: General: Skin is warm and dry. Capillary Refill: Capillary refill takes 2 to 3 seconds. Coloration: Skin is pale. Skin is not jaundiced. Findings: No erythema. Neurological: Mental Status: He is alert and oriented to person, place, and time. Mental status is at baseline. Motor: Weakness present. Gait: Gait abnormal. Psychiatric: Mood and Affect: Mood normal. Behavior: Behavior normal. Urethral Catheter Coude (Active) Number of days: 0 STUDIES: Encounter Orders Labs and other studies reviewed with pertinent findings noted below: Results for orders placed or performed during the hospital encounter of 01/09/24 COMPREHENSIVE METABOLIC PANEL Result Value Ref Range BUN 20 6 - 20 mg/dL Creatinine 1.0 0.6 - 1.2 mg/dL Estimated Glomerular Filtration Rate 81 >=60 mL/min Sodium 140 135 - 146 mmol/L Potassium 4.2 3.5 - 5.1 mmol/L Chloride 104 98 - 107 mmol/L CO2 24 22 - 32 mmol/L Anion Gap 12 7 - 15 mmol/L Glucose 89 70 - 120 mg/dL Albumin 3.5 (L) 3.8 - 5.0 g/dL AST 22 10 - 50 U/L Alkaline Phosphatase 47 35 - 130 U/L Bilirubin, Total 0.5 <=1.2 mg/dL Calcium 8.6 8.4 - 10.2 mg/dL Protein 5.9 (L) 6.0 - 8.3 g/dL ALT 16 10 - 50 U/L TROPONIN T, HIGH SENSITIVITY Result Value Ref Range Troponin T, High Sensitivity 39 (H) <=22 ng/L PT INR Result Value Ref Range Prothrombin Time 37.9 (H) 11.6 - 15.2 seconds INR 3.8 (H) 0.8 - 1.2 MAGNESIUM Result Value Ref Range Magnesium 1.2 (L) 1.5 - 2.6 mg/dL CBC Result Value Ref Range WBC 7.98 4.00 - 10.80 K/uL RBC 3.97 4.50 - 5.25 M/uL HGB 11.9 (L) 14.0 - 16.8 g/dL HCT 35.8 (L) 40.0 - 48.4 % MCV 90.2 82.0 - 99.5 fL MCH 30.0 27.0 - 34.0 pg MCHC 33.2 32.0 - 36.0 g/dL RDW 15.3 11.5 - 15.5 % PLT 203 140 - 400 K/uL MPV 8.6 6.6 - 11.1 fL nRBCs 0 <=0 /100 WBCs DIFFERENTIAL, AUTOMATED Result Value Ref Range WBC 7.98 4.00 - 10.80 K/uL Neutrophils % 61.7 40.0 - 75.0 % Lymphocytes % 25.6 18.0 - 42.0 % Monocytes % 7.6 1.0 - 11.0 % Eosinophils % 4.0 0.0 - 6.0 % Basophils % 0.6 0.0 - 2.0 % Immature Granulocytes % 0.5 0.0 - 2.0 % Absolute Neutrophils 4.92 1.80 - 7.70 K/uL Absolute Lymphocytes 2.04 1.00 - 4.80 K/ul Absolute Monocytes 0.61 0.00 - 1.10 K/uL Absolute Eosinophils 0.32 0.00 - 0.70 K/uL Absolute Basophils 0.05 0.00 - 0.20 K/uL Absolute Immature Granulocytes 0.04 0.00 - 0.20 K/uL URINALYSIS, REFLEX TO CULTURE (CUP ONLY) Result Value Ref Range Urinalysis, Reflex to Culture Specimen Specimen collected and received URINALYSIS, REFLEX TO CULTURE Result Value Ref Range Color, Urine Yellow Light Yellow, Yellow, Dark Yellow Clarity, Urine Clear Clear Glucose, Urine Negative Negative mg/dL Bilirubin, Urine Negative Negative Ketone, Urine Negative Negative mg/dL Specific [place], Urine 1.011 1.003 - 1.030 Blood, Urine Large (A) Negative pH, Urine 6.0 5.0 - 7.5 Units Protein, Urine Negative Negative mg/dL Urobilinogen, Urine 0.2 0.2, 1.0 mg/dL Nitrite, Urine Negative Negative Esterase, Urine Negative Negative RBC, Urine 50+ (A) 0 - 2 /HPF WBC, Urine 0-2 0 - 2 /HPF Bacteria, Urine 26-50 (A) 0 - 25 /HPF Culture, Urine TROPONIN T, HIGH SENSITIVITY Result Value Ref Range Troponin T, High Sensitivity 35 (H) <=22 ng/L Hemoglobin AIC Results: Lab Results Component Value Date/Time HEMOGLOBIN A1C - [facility] 6.8 (H) 11/08/2023 04:18 AM HEMOGLOBIN A1C - [facility] 6.8 (H) 07/26/2023 11:04 AM HEMOGLOBIN A1C - [facility] 6.8 (H) 01/23/2023 02:40 PM HEMOGLOBIN A1C - [facility] 7.4 (H) 03/30/2020 10:15 AM HEMOGLOBIN A1C - [facility] 6.6 (H) 09/29/2019 09:29 AM HEMOGLOBIN A1C - [facility] 6.8 (H) 04/09/2019 11:01 AM Lab Results Component Value Date/Time LDL CHOLESTEROL (CALCULATED) - [facility] 51 02/26/2023 12:02 PM LDL CHOLESTEROL (CALCULATED) - [facility] 40 03/30/2020 10:15 AM LDL CHOLESTEROL (DIRECT MEASURE) - [facility] 30 05/26/2021 04:06 AM LDL CHOLESTEROL (DIRECT MEASURE) - [facility] NOT APPLICABLE 03/30/2020 10:15 AM Lab Results Component Value Date/Time TSH - [facility] 1.76 07/26/2023 11:04 AM TSH - [facility] 1.36 03/06/2022 12:21 PM TSH - [facility] 1.08 11/14/2021 12:28 PM TSH - [facility] 0.88 11/30/2018 11:30 AM TSH - [facility] 0.86 05/16/2017 02:49 PM XR CHEST 1 VIEW Result Date: 01/09/2024 IMPRESSION: No acute abnormality. THIS DOCUMENT HAS BEEN ELECTRONICALLY SIGNED BY FELECIA WARREN MD Susceptibility data from last 90 days. Collected Specimen Info Organism Ampicillin/Sulbactam Cefazolin Cefepime Ceftriaxone Ciprofloxacin Gentamicin Levofloxacin Nitrofurantoin Piperacillin Tazobactam Trimeth/Sulfamethoxazole 12/29/23 Urine, Clean Catch Klebsiella pneumoniae S S S S S S I S S 11/29/23 Urine, Clean Catch Klebsiella pneumoniae S S S S S S I S S 11/04/23 Urine, Clean Catch Klebsiella pneumoniae S S S S S S I R S S Assessment and Plan IMPRESSION: Principal Problem: Near syncope Active Problems: BPH with obstruction/lower urinary tract symptoms Type 2 diabetes mellitus with hemoglobin A1c goal of less than 7.5% ([facility]) Hyperlipidemia with target LDL less than 100 Ambulatory dysfunction Anticoagulated on warfarin Orthostatic hypotension Chaparro catheter in place Hypomagnesemia Diarrhea Loss of weight Resolved Problems: * No resolved hospital problems. * DIFFERENTIAL AND PLAN: Near syncope Telemetry admission Orthostatic BP monitoring -- note history of orthostasis with patient on midodrine Likely secondary to deconditioning Trend troponins today -- mild elevation and patient without chest pain BPH with obstruction/lower urinary tract symptoms Chaparro catheter placed Urology consulted -- cysto planned at present for 02/24/24 Finasteride 5 mg daily Tamsulosin 0.8 mg daily While he has had + cultures in past, UA appears clean today, follow urine culture and hold on abx therapy at this time -- consider adding if culture positive and/or patient develops fever/further symptoms suggestive of infection Type 2 diabetes mellitus with hemoglobin A1c goal of less than 7.5% ([facility]LY [facility]) Routine and PRN accu checks with Novolog sliding scale coverage Hold home glipizide and metformin -- ? If he needs glipizide therapy and high dose of metformin with decreased intakes and weight loss, monitor blood sugar on diabetic diet during admission Hyperlipidemia with target LDL less than 100 Hold statin therapy upon admission ? FDC benefit with ongoing generalized weakness and weight loss to date Ambulatory dysfunction PT/OT consults Care management consult Anticoagulated on warfarin Pharmacy to manage and monitoring during admission PT/INR in AM Orthostatic hypotension Continue SONG WRITER midodrine 5 mg TID Orthostatic BP monitoring Chaparro catheter in place For urinary retention secondary to BPH Hypomagnesemia Replacement in ED today Recheck level in AM GI consult -- ? Related to diarrhea with eating and weight loss as described by patient and Diarrhea Stool for C. Diff and culture Continue SONG WRITER metamucil daily and miralax every other day as per GI GI consult This could be multifactoral r/t gastroparesis, laxatives as he has constipation without the laxatives, ? C. Diff with five courses of abx therapy (and he is on PPI therapy daily) since September 2023 Loss of weight GI consult Ensure with meals Continue all other SONG WRITER medications as ordered: Vitamin D 1000 units daily Sensipar 30 mg daily Cymbalta 60 mg daily Ferrous sulfate 325 mg daily Metoprolol succinate XL 12.5 mg daily Omeprazole 20 mg daily PHARMACOLOGIC VTE PROPHYLAXIS: warfarin check daily dose (PHARMACIST MANAGED) Warfarin Sodium CODE STATUS: Full Code EXPECTED DISCHARGE DATE: 1-2 days 90 minutes spent on admission of this patient which included evaluation of the patient and available records, coordination of care with ED, coordination of care with primary hospitalist Dr Brito, and coordination of care with nursing. Kinjal Hercules, BETSEY, GLOST KILN PLACER, ANP-C, CNE Associated attestation - Segun Brito MD - 01/09/2024 2:26 PM EDT I have reviewed the advanced practitioner's documentation on the date of service referenced in note, and I agree with, and take responsibility for the plan of care. I spent a total of 15 minutes coordinating, documenting, and providing care for this patient excluding time spent in the performance of separately billed services or time spent by another provider/QHP. documented in this encounter Consult Notes * Kinjal Irby, PT - 01/10/2024 2:53 PM EDTAssociated Order(s): ADULT PHYSICAL THERAPY CONSULT IP GENERAL EVALUATION - Physical Therapy [facility]-[address] [address] Name: Lewis Camacho Location: [facility] [id number] Date: 01/10/2024 Time: 2:53 PM Lewis Camacho is a/an 73 year old male. Patient Status: Inpatient Insurance: Payor: MEDICARE Plan: MEDICARE A AND B Product Type: *No Product type* Payor: AARP Plan: AARP Product Type: *No Product type* Patient Seen: at bedside Patient Identified By: Name, ID Band and Date Diagnosis: Gait dysfunction, weakness, near syncope, persistant UTI (01/10/241452) Status of treatment: OOB evaluation completed (01/10/241452) Orders: PT evaluation and treatment (01/10/241452) Weight Bearing Status: Weight bearing as tolerated (01/10/24 145) Precautions: Falls;Safety;Isolation (01/10/24 145) Total Treatment Time--free text: 26 minutes (01/10/241452) Past Medical History: Past Medical History: Diagnosis Date Cervical spinal cord injury (HCC) 07/13/2018 s/p fall down steps at home Hodgkin's lymphoma (HCC) 1998 Hypercalcemia Pulmonary embolism (HCC) Type 2 diabetes mellitus (HCC) UTI (urinary tract infection) Other: subdural and subarachnoid hemorrhage August 2023 s/p fall Past Surgical History: Past Surgical History: Procedure Laterality Date COLONOSCOPY, DIAGNOSTIC (RECTUM) N/A 03/16/2022 diverticulosis sigmoid, descending and transverse colon/non-bleeding internal hemorrhoids/hypertrophied anal papilla/biopsies show adenomatous polyps/recall 3 years/COLONOSCOPY FLEXIBLE PROXIMAL DIAGNOSTIC performed by John Gordillo MD at OR [facility] INCISIONAL HERNIA REPAIR, LAP, REDUCIBLE left inguinal and umbelical INFORMATION 05/14/1988 lymph node removal KNEE ARTHROSCOPY/SURGERY PARTIAL HIP REPLACEMENT & PROSTH Right 09/02/2020 HEMIARTHROPLASTY HIP performed by Gianni Hubbard MD at OR [facility] REMOVE CATARACT, INSERT LENS PROSTH Left 03/23/2022 LEFT EXTRACAPSULAR CATARACT REMOVAL WITH INTRAOCULAR LENS performed by Rad Morgan MD at OR [facility] REMOVE CATARACT, INSERT LENS PROSTH Right 03/30/2022 RIGHT EXTRACAPSULAR CATARACT REMOVAL WITH INTRAOCULAR LENS performed by Rad Morgan MD at OR [facility] REMOVE TONSILS & ADENOIDS, AGE 12+ UMBIL HERNIA REPAIR (INCARCERATED) AGE 5+YR Subjective: Pt agreeable to PT evaluation and treatment Social History/Disposition Lives with: Spouse (01/10/24 114) Assistance available: Yes (01/10/24 114) Dwelling type: Single story home (01/10/24 114) Entry steps: 2 (1+1 ISHMAEL) (01/10/24 114) Inside steps: None (01/10/24 114) Bedroom location: 1st floor (sleeps in lift recliner) (01/10/24 114) Bath location: 1st floor full bath (walk-in shower) (01/10/24 114) Prior Level of Function Reported by: Patient;Family;Chart review (01/10/24 145) Ambulation: Ambulatory with assistance and device (01/10/24 145) Ambulatory Device: Rolling walker (+ assist of 1 for past ~6 months) (01/10/24 145) Observations Consciousness: Alert (01/10/24 145) Orientation: Oriented times 4 (01/10/24 145) Psychosocial: Patient can communicate basic needs;Patient can converse in a social setting (01/10/24 145) Sitting Posture: Forward head;Rounded shoulders (01/10/24 145) Standing Posture: Forward head;Rounded shoulders (01/10/24 145) Pain: No complaints of pain Strength Assessment Strength Assessment: (BLE strength grossly 4/5) (01/10/24 145) Transfers Sit-Stand: Moderate Assistance (01/10/241452) Stand-Sit: Minimal Assistance (01/10/241452) Ambulation: not tested second to lightheadedness in standing with BP 69/52 Balance Sit (Static): Good (01/10/241452) Sit (Dynamic): Good (01/10/241452) Stand (Static): Fair (01/10/241452) Stand (Dynamic): Not Tested (01/10/241452) Patient and or Family Goal(s): to get well Patient Education Review of Precautions: Safety;Fall (01/10/241452) Safety Awareness: Patient verbalizes insight of current deficits;Patient demonstrates carryover of insight during functional tasks (01/10/241452) Preferred learning method: Combination (01/10/241452) Barriers to learning: Medical Status (01/10/241452) Topic of Education: Safety with mobility and Fall prevention Method of Education: Verbal discussion and explanation provided to patient: verbalized understanding and or agreement of this information Treatment Provided: Therapeutic Activities 11 minutes: transfer training Evaluation Moderate Complexity 15 minutes - 94023: Patient was cooperative, pleasant, and alert during treatment session. Moderate complexity evaluation performed and 1-2 personal factors or comorbidities were identified that will impact plan of care, including history TBI and evolving presentation. Patient presents with limitations in strength, transfers, gait, balance, and endurance, which willimpact plan of care. These limitations will be addressed by the goals set for this patient. Alarm Status Patient positioned in: Chair (01/10/241452) With: Pressure pad alarm intact and functioning and call kebede in reach (01/10/241452) Goals: Demonstrate Transfers with: Sit to stand: contact guard Bed to chair: contact guard Demonstrate Ambulation: assistive device: rolling walker distance in feet: 250 ft+ level of assistance on level surface: contact guard Time Frame: 10 sessions Assessment: Orthostatic vitals: reclined BP 124/81, HR 81; sitting BP 108/74, HR 88; standing BP 69/52, HR 96 with lightheadedness reported. Required moderate assist to stand. Deferred ambulation second to symptomatic orthostatic hypotension. [facility] mobility score of 13. Will continue to follow while at [facility]. When medically ready for discharge, Would consider post-acute care services which may include home health, prison, outpatient therapy, or inpatient rehab. The level of care will be determined in collaboration with the patient, family/caregiver, and care team members. Deficits requiring P.T. treatment needs: Mobility;Balance;Weakness;Endurance (01/10/24 145) Equipment Needs: Treatment Plan: Bed mobility training, Transfer training, Gait training, Elevation training, ROM exercises, Strengthening exercises, Balance activities, and Educate on safety with fall prevention. Anticipated Frequency (on eval): 3 to 5 times per week (01/10/24 1453) AM PAC Score with Stairs: 13 * Lurdes Mathis RN - 01/10/2024 2:35 PM EDTAssociated Order(s): CARE MANAGEMENT CONSULT IP See ancillary assessment note. * Sonal Junior, OTR/L - 01/10/2024 11:43 AM EDTAssociated Order(s): ADULT OCCUPATIONAL THERAPY CONSULT IP GENERAL EVALUATION - Occupational Therapy [facility]-[address] [address] Name: Lewis Camacho Location: [facility] [id number]/W Date: 01/10/2024 Time: 11:43 AM Lewis Camacho is a 73 year old male. Per H&P: "73 year old male with PMH significant for cervical/thoracic spine surgery s/p fall [id number], type 2 diabetes, Hodgkin's lymphoma following with Dr. Morales, atrial fibrillation anticoagulated on warfarin, and most recently recurrent UTIs since October 04, 2023, urinary retention and BPH whopresented to the ED today with his with reports of ongoing dysuria with last dose of abx last evening which was Cefpodoxime, generalized weakness where is needs to ambulate with his walker whichis the baseline but 1 assist with using gait belt and still patient gets weak during ambulation per . This morning he had an episode of diaphoresis while ambulating to the bathroom with the along with increased generalized weakness. Due to weakness he is more difficult for to manage at home at present time. He has been following with urology and planned for cystoscopy but reports this cannot be done until 02/24/24 per urology but they are on a cancellation list. Today patient had the diaphoresis and weakness as noted previously along with dysuria, increased generalized weakness. Denies fever or chills. + dizziness at times when he is up. Denies SOB or chest pain, pressure, palpitations. Ongoing issues with eating -- denies nausea but notes that when he eats he "goes right to the bathroom" with episodes of diarrhea per . States that he was 250 lbs butcurrently 140 lbs over the past few years. They have seen GI for this and are currently using metamucil daily with miralax every other day because without laxatives then he has severe constipation --no bowel movements without medication per . Also reported that he attempted gastric emptying study 01/02/24 but vomited with the test so it was unable to be completed. Notes that he has ongoing issues with urination -- dysuria, urgency, frequency. Has had a chaparro in the past, been on 5 abx sinceMay 23 of this year and is continuing to follow with urology as he is on Flomax and Proscar. In ED today, patient VS stable. Troponins 39 and 35 above baseline of 16-20 but no chest pain reported by patient. BMP unremarkable with glucose 89. Magnesium 1.2. INR 3.8. WBC 7.98 with H/H 11.9/35.8. AST/ALT WNL. UA with large blood and 26-50 bacteria. Sent for culture. CXR negative. Magnesium replacement in ED, NSS 500 ml bolus provided in ED. Nursing attempted straight cath X 1 but met resistance. Nursing 2nd attempt they were able to place 16 F coude chaparro catheter. Requesting admission for near syncope, generalized weakness, and urinary retention." Patient Status: Inpatient Insurance: Payor: MEDICARE Plan: MEDICARE A AND B Product Type: *No Product type* Payor: AARP Plan: AARP Product Type: *No Product type* Patient Seen: at bedside Patient Identified By: Name, ID Band and Date Diagnosis: Weakness, Near syncope, persisitent UTI (01/10/24 1143) Status of treatment: OOB evaluation completed (01/10/24 114) Orders: OT evaluation and treatment (01/10/24 114) Weight Bearing Status: Weight bearing as tolerated (01/10/24 114) Precautions: Alarms;Falls;Safety (01/10/24 114) Total Treatment Time: 40 minutes (01/10/24 1143) Past Medical History: Past Medical History: Diagnosis Date Cervical spinal cord injury (HCC) 07/13/2018 s/p fall down steps at home Hodgkin's lymphoma (HCC) 1998 Hypercalcemia Pulmonary embolism (HCC) Type 2 diabetes mellitus (HCC) UTI (urinary tract infection) Past Surgical History: Past Surgical History: Procedure Laterality Date COLONOSCOPY, DIAGNOSTIC (RECTUM) N/A 03/16/2022 diverticulosis sigmoid, descending and transverse colon/non-bleeding internal hemorrhoids/hypertrophied anal papilla/biopsies show adenomatous polyps/recall 3 years/COLONOSCOPY FLEXIBLE PROXIMAL DIAGNOSTIC performed by John Gordillo MD at OR [facility] INCISIONAL HERNIA REPAIR, LAP, REDUCIBLE left inguinal and umbelical INFORMATION 05/14/1988 lymph node removal KNEE ARTHROSCOPY/SURGERY PARTIAL HIP REPLACEMENT & PROSTH Right 09/02/2020 HEMIARTHROPLASTY HIP performed by Gianni Hubbard MD at OR [facility] REMOVE CATARACT, INSERT LENS PROSTH Left 03/23/2022 LEFT EXTRACAPSULAR CATARACT REMOVAL WITH INTRAOCULAR LENS performed by Rad Morgan MD at [facility] REMOVE CATARACT, INSERT LENS PROSTH Right 03/30/2022 RIGHT EXTRACAPSULAR CATARACT REMOVAL WITH INTRAOCULAR LENS performed by Rad Morgan MD at OR [facility] REMOVE TONSILS & ADENOIDS, AGE 12+ UMBIL HERNIA REPAIR (INCARCERATED) AGE 5+YR Social History/Disposition Lives with: Spouse (01/10/24 114) Assistance available: Yes (01/10/24 114) Dwelling type: Single story home (01/10/24 114) Entry steps: 2 (1+1 ISHMAEL) (01/10/24 114) Inside steps: None (01/10/24 114) Bedroom location: 1st floor (sleeps in lift recliner) (01/10/24 114) Bath location: 1st floor full bath (walk-in shower) (01/10/24 114) Prior Level of Function Reported by: Family;Patient (01/10/24 114) Ambulation: Ambulatory with assistance;Ambulatory with assistance and device (Recently needing assistance) (01/10/24 114) Ambulatory Device: Rolling walker (01/10/24 114) Grooming: Assistance (01/10/24 114) Bathing: Assistance (01/10/24 114) Dressing: Assistance (01/10/24 114) Feeding: Assistance (01/10/24 114) Toileting: Assistance (01/10/24 114) Meal Prep: Dependent (01/10/24 114) Homemaking: Dependent (01/10/24 114) Shopping: Dependent (01/10/24 114) Medication Management: Dependent (01/10/24 114) Money Management: Dependent (01/10/24 114) Occupation/Leisure Skills: Retired (01/10/24 114) Driving: No (01/10/241142) Durable Medical Equipment at home: Wheelchair;Rolling walker;Grab bars;Shower chair (01/10/24 114) Subjective: Pt agreeable to OT session. Pain: No complaints of pain Observations Consciousness: Alert (01/10/24 114) Orientation: Oriented times 4 (01/10/24 114) Psychosocial: Patient can communicate basic needs;Patient can converse in a social setting (01/10/24 114) Sitting posture: Forward head;Rounded shoulders (01/10/24 114) Standing posture: Forward head;Rounded shoulders (01/10/24 114) Safety awareness: The Patient verbalizes insight of current deficits.;The Patient demonstrates carryover of insight during functional tasks. (01/10/24 114) Other Findings Endurance: Sitting tolerance;Standing tolerance;Functional activity;Fair (01/10/24 114) Light touch sensation: LUE;RUE;Intact (01/10/241142) Current Functional Status: Bilateral Upper Extremity Hand Dominance: Left (01/10/241142) Range of Motion: WFL, except (01/10/241142) LUE: Shoulder (01/10/24 114) RUE: Shoulder;Elbow (01/10/24 114) Strength Assessment: Deficits noted (01/10/241142) LUE: Shoulder;2+/5;Elbow;Grasp;3+/5;4-/5 (01/10/241142) RUE: Shoulder;2+/5;Elbow;Grasp;3+/5;4-/5 (01/10/241142) Self Care Grooming: Moderate Assistance (to comb hair and brush teeth) (01/10/24 114) Toileting: (Chaparro in place) (01/10/241142) Dressing Upper Body: Dependent (hospital gown) (01/10/24 114) Lower Body: Dependent (slipper socks) (01/10/241142) Bathing Upper Body: Dependent (01/10/241142) Lower Body: Dependent (01/10/241142) Functional Ambulation Assistive Device: Rolling walker (and gait belt) (01/10/241142) Distance in feet:: 2 (01/10/241142) Level of Assistance: Minimal Assistance (01/10/241142) Bed Mobility Supine-Sit: Minimal Assistance (01/10/241142) OT Transfers Sit-Stand: Moderate Assistance (01/10/241142) Stand-Sit: Minimal Assistance (01/10/241142) Bed-Chair: Moderate Assistance (01/10/241142) Balance Sit (Static): Good (01/10/241142) Sit (Dynamic): Good (01/10/241142) Stand (Static): Fair (01/10/241142) Stand (Dynamic): Fair (01/10/241142) Alarm Status Patient positioned in: Chair (01/10/241142) With: Pressure pad alarm intact and functioning and call kebede in reach (01/10/241142) Patient and Family Goals: to get well and to return home Patient Education Education Topic: Role of OT;Plan of care goals (01/10/241142) Review of Precautions: Safety;Fall (01/10/241142) Education Provided to: Patient (01/10/241142) Response to Education: Receptive and agreeable to education (01/10/241142) Barriers to learning: Medical status (01/10/241142) Preferred learning method: Combination (08/29/24 1143) Treatment Provided: Therapeutic Activity: 25 minutes Evaluation Moderate Complexity 15 minutes - 25525: Patient was cooperative, pleasant, and alert during treatment session. Moderate complexity evaluation performed and 3-5 activity limitations were identified, including ADL deficit, functional mobility deficit, bed mobility deficit, decreased strength, decreased endurance, and impaired balance. Minimal or moderate modification of the functional task was necessary to complete the evaluation. Deficits Requiring O.T. Treatment: Deficits requiring O.T. treatment needs: ADL/self-care;Balance;Endurance;Functional mobility;Safety;Upper extremity strength;Weakness;Upper extremity range of motion (01/10/24 1143) Goals: Dressing: Upper: moderate assist Bed Mobility with: Supine to Sit: contact guard Sit to supine: contact guard. Transfers with: Toilet: minimal assistance (pt does 75%) Bed to Chair/Wheelchair: minimal assistance (pt does 75%). Demonstrates standing tolerance at: 6 Minutes. Demonstrates toileting at maximal assistance (pt does 25%) Goal Time Frame: 1-10 sessions Assessment: Mr. Camacho was seen at bedside for OT evaluation. He was pleasant and oriented x4. Pt required Ganga to transition from supine to sit, as well as Ganga to maintain sitting EOB for bathing/dressing tasks (max-totalA). Pt stood and transferred to the bedside chair with modA using a RW + gaitbelt. Once seated pt completed oral care with Ganga and hair combing with totalA. notes that the patient has been having a functional decline over the past several months. Would consider post-acute care services which may include home health, prison, outpatient therapy, or inpatient rehab. The level of care will be determined in collaboration with the patient, family/caregiver, and care team members. AM-PAC score: 11. A portion of this AM-PAC assessment was not scored based on functional assessment, but rather by clinical decision making based on current findings and/ or prior level of function. Please refer to future OT AM-PAC calculations of functional ability as they become available. Treatment Plan: Safety, Bed mobility training, Functional Ambulation, Transfer training, ROM exercises, Upper extremity strengthening, Balance activities, ADL training, and Endurance. Anticipated Frequency (on eval): 1 to 3 times per week (01/10/24 1143) AM-PAC Help From Another Person Eating Meals: A little (01/10/24 114) Help From Another Person Taking Care of Personal Grooming: A little (01/10/24 114) Help From Another Person To Put On/Take Off Upper Body Clothing: Total (01/10/24 114) Help From Another Person To Put On/Take Off Lower Body Clothing: Total (01/10/24 114) Help From Another Person Toileting: Total (01/10/24 114) Help From Another Person Bathing: Total (01/10/24 114) OT AM-PAC Score: 10 (01/10/24 114) OT AM-PAC t-Scale Score: 27.31 (01/10/24 114) HLM (Highest Level of Mobility) Goal: Level 4 move to chair/commode (01/10/24 0738) * Nikolai Chaudhari MD - 01/09/2024 3:02 PM EDTAssociated Order(s): UROLOGY CONSULT IP CONSULT - Urology [facility]-[address] [address] Name: Lewis Camacho Location: /X Date: 01/09/2024 Time: 3:02 PM REQUESTING SERVICE: Hospitalist PRESENTING PROBLEM: Recurrent urinary retention and UTI. HPI: Patient is a 73-year-old male, previously seen 2 months ago by myself who presents to the Emergency Room for difficulties with voiding, suspected UTI and intractable nausea and vomiting. Patient's interval visits, trial of void with the need for Chaparro catheter replacement and antibiotic therapy for persistently positive urine cultures appreciated. They note, however, that intractable nausea,emesis and diarrhea are also a significant cause of the patient's presentation to the Emergency Room. Patient's is present at bedside and assists with history today. Patient's past notes an interval notes reviewed. Patient is scheduled for cystoscopy with myself in a month or 2 for evaluation o f lower urinary tract anatomy in consideration of surgical intervention to alleviate his difficulties with bladder emptying. He remains on maximal medical therapy with tamsulosin and finasteride. Patient denies CIC performance or supplies at home. BPH: Seen by myself November 01, 2023. Patient is being seen for BPH today. He has had the following symptoms: slow stream, need for catheter placement, and incomplete emptying. Severity is moderate. UTIs present in past. He has tried tamsulosin, finasteride, and indwelling chaparro. He has previously had no surgery done. Problem has been present for years. Problem is getting worse. Urine culture December 29, 2023: Culture Growth >100,000 colonies/mL Klebsiella pneumoniae Abnormal Resulting Agency: [facility] Klebsiella pneumoniae MICROBROTH DILUTIONS Ampicillin/Sulbactam Susceptible Cefazolin Susceptible Cefepime Susceptible Ceftriaxone Susceptible Ciprofloxacin Susceptible 1 Gentamicin Susceptible Nitrofurantoin Intermediate Piperacillin Tazobactam Susceptible Trimeth/Sulfamethoxazole Susceptible Creatinine Results: Lab Results Component Value Date/Time CREATININE - [facility] 1.0 01/09/2024 09:01 AM CREATININE - [facility] 1.0 12/29/2023 02:42 PM CREATININE - [facility] 1.2 12/09/2023 02:50 PM CREATININE - [facility] 1.0 03/30/2020 10:15 AM CREATININE - [facility] 0.9 12/20/2019 11:15 AM CREATININE - [facility] 0.9 09/29/2019 09:29 AM CREATININE, RANDOM URINE - [facility] 76 10/18/2023 02:46 PM CREATININE, RANDOM URINE - [facility] 83 01/10/2023 01:13 PM CREATININE, RANDOM URINE - [facility] 59 07/07/2021 02:16 PM CREATININE, RANDOM URINE - [facility] 84 12/16/2018 07:38 PM CREATININE, RANDOM URINE - [facility] 80 01/10/2018 02:21 PM CREATININE, RANDOM URINE - [facility] 253 08/21/2016 09:25 AM CREATININE, URINE 52 06/24/2021 12:41 PM CREATININE, URINE 24 HOUR 1.053 06/24/2021 12:41 PM PSA Results: Lab Results Component Value Date/Time PSA - [facility] 1.01 01/13/2021 04:37 PM PSA - [facility] 1.12 01/07/2020 09:51 AM PSA - [facility] 1.59 01/03/2019 02:24 PM PSA - [facility] 1.25 12/29/2017 11:47 AM PAST MEDICAL HISTORY: Past Medical History: Diagnosis Date Cervical spinal cord injury (HCC) 07/13/2018 s/p fall down steps at home Hodgkin's lymphoma (HCC) 1998 Hypercalcemia Pulmonary embolism (HCC) Type 2 diabetes mellitus (HCC) UTI (urinary tract infection) PAST SURGICAL HISTORY: Past Surgical History: Procedure Laterality Date COLONOSCOPY, DIAGNOSTIC (RECTUM) N/A 03/16/2022 diverticulosis sigmoid, descending and transverse colon/non-bleeding internal hemorrhoids/hypertrophied anal papilla/biopsies show adenomatous polyps/recall 3 years/COLONOSCOPY FLEXIBLE PROXIMAL DIAGNOSTIC performed by John Gordillo MD at OR [facility] INCISIONAL HERNIA REPAIR, LAP, REDUCIBLE left inguinal and umbelical INFORMATION 05/14/1988 lymph node removal KNEE ARTHROSCOPY/SURGERY PARTIAL HIP REPLACEMENT & PROSTH Right 09/02/2020 HEMIARTHROPLASTY HIP performed by Gianni Hubbard MD at OR [facility] REMOVE CATARACT, INSERT LENS PROSTH Left 03/23/2022 LEFT EXTRACAPSULAR CATARACT REMOVAL WITH INTRAOCULAR LENS performed by Rad Morgan MD at OR [facility] REMOVE CATARACT, INSERT LENS PROSTH Right 03/30/2022 RIGHT EXTRACAPSULAR CATARACT REMOVAL WITH INTRAOCULAR LENS performed by Rad Morgan MD at OR [facility] REMOVE TONSILS & ADENOIDS, AGE 12+ UMBIL HERNIA REPAIR (INCARCERATED) AGE 5+YR FAMILY HISTORY: Family History Problem Relation Name Age of Onset Other (Aneurysm) Father Other (Lymphoma) Mother SOCIAL HISTORY: Social History Tobacco Use Smoking status: Never Passive exposure: Never Smokeless tobacco: Never Vaping Use Vaping status: Never Used Substance Use Topics Alcohol use: Not Currently Comment: rarely Drug use: No ALLERGIES: Cat dander REVIEW OF SYSTEMS: Constitutional: (+) weakness ENT: (-) stridor Abdominal/GI: (+) nausea, (+) vomiting, and (+) diarrhea Male : See HPI Musculoskeletal: (+) muscle stiffness Neurology: (+) loss of balance Psychiatry: (-) hallucinations PHYSICAL EXAMINATION: Most Recent Vital Signs: BP: 125 mmHg/74 mmHg (01/09/24 1300) Pulse: 71 (01/09/24 1300) Resp: 16 (01/09/24 1300) Temp: 36.11 C (01/09/24 0829) Temp Summary: Temp Min: 36.1 C (97 F) Max: 36.1 C (97 F) SpO2: 95 % (01/09/24 0932) O2 flow rate: Supplemental O2 Delivery: General: alert, awake, oriented to person and place and situation, no distress Heart: regular rate, regular rhythm Chest: clear to auscultation bilaterally Abdomen: soft, non-distended Back: no costo-vertebral angle tenderness Extremities: no edema Neuro: No focal deficits Psych: Appropriately conversant LAB LINKS:Labs reviewed as indicated below: CBC Results: Results for orders placed or performed during the hospital encounter of 01/09/24 CBC Result Value Ref Range WBC 7.98 4.00 - 10.80 K/uL RBC 3.97 4.50 - 5.25 M/uL HGB 11.9 (L) 14.0 - 16.8 g/dL HCT 35.8 (L) 40.0 - 48.4 % MCV 90.2 82.0 - 99.5 fL MCH 30.0 27.0 - 34.0 pg MCHC 33.2 32.0 - 36.0 g/dL RDW 15.3 11.5 - 15.5 % PLT 203 140 - 400 K/uL MPV 8.6 6.6 - 11.1 fL nRBCs 0 <=0 /100 WBCs CULTURES: See above IMAGING: No new renal imaging since October 2023 IMPRESSION: 73 year old male with persistent urinary tract infection and retention. PLAN: Findings reviewed with the patient and . Seen his ongoing difficulties will leave Chaparro catheter in place until the time of his office visit for follow-up. This can be irrigated as inpatient and at home as necessary for debris. The presence of bacteriuria is not overly surprising, but with a Chaparro catheter in place hopefully this will not be as symptomatic as previous. It is unclear the degree to which the patient's urinary difficulties or associated with his GI difficulties. Continue evaluation for intractable nausea and emesis per primary service. Patient on standby list, will move up visit if possible. Above content is personally reviewed. Patient vocalizes good understanding of the treatment plan. * Mary Lou Garza CRNP - 01/09/2024 2:51 PM EDTAssociated Order(s): GASTROENTEROLOGY CONSULT IP CONSULT - Gastroenterology [facility] [address] Name: Lewis Camacho Location: H3/X Date: 01/09/2024 Time: 2:51 PM REQUESTING SERVICE: Medicine REASON FOR CONSULT: Weight loss, ? Dumping syndrome, hypomagnesemia HPI: Lewis Camacho is a 73 year old male who is evaluated for weight loss, ? Dumping syndrome. Patient with past medical history including diabetes mellitus type 2, Hodgkin's lymphoma, AFib on warfarin, BPH, urinary retention, recurrent UTI, just completed cefpodoxime last evening who presented tothe ED due to generalized weakness, near-syncope and symptoms of dysuria. provides most of thehistory. She reports that patient has had chronic nausea with sometimes vomiting. He has lost a lotof weight in the past few years. He has issues with constipation and has been on several laxatives including MiraLax, Metamucil. Sometimes they do not work well to stimulate bowel movement. He had seen Nila Jamil PA-C in GI clinic earlier this month. Gastric emptying study was attempted however patient was unable to ingest the food material, thus study was not completed. EGD and colonoscopy scheduled for 03/26/2024. Labs reviewed. No signs of leukocytosis, he is mildly anemic. Electrolytes unremarkable, low magnesium level of 1.2. LFTs and renal function normal. Urine culture pending. Chest x-ray unremarkable. Colonoscopy 2021: - The examined portion of the ileum was normal. - Four 6 mm polyps in the transverse colon, removed with a cold snare. Resected and retrieved. - Diverticulosis in the sigmoid colon, in the descending colon and in the transverse colon. - Non-bleeding internal hemorrhoids. Anal papilla(e) were hypertrophied. HISTORY: Past Medical History: Past Medical History: Diagnosis Date Cervical spinal cord injury (HCC) 07/13/2018 s/p fall down steps at home Hodgkin's lymphoma (HCC) 1998 Hypercalcemia Pulmonary embolism (HCC) Type 2 diabetes mellitus (HCC) UTI (urinary tract infection) Past Surgical History: Past Surgical History: Procedure Laterality Date COLONOSCOPY, DIAGNOSTIC (RECTUM) N/A 03/16/2022 diverticulosis sigmoid, descending and transverse colon/non-bleeding internal hemorrhoids/hypertrophied anal papilla/biopsies show adenomatous polyps/recall 3 years/COLONOSCOPY FLEXIBLE PROXIMAL DIAGNOSTIC performed by John Gordillo MD at OR [facility] INCISIONAL HERNIA REPAIR, LAP, REDUCIBLE left inguinal and umbelical INFORMATION 05/14/1988 lymph node removal KNEE ARTHROSCOPY/SURGERY PARTIAL HIP REPLACEMENT & PROSTH Right 09/02/2020 HEMIARTHROPLASTY HIP performed by Gianni Hubbard MD at OR [facility] REMOVE CATARACT, INSERT LENS PROSTH Left 03/23/2022 LEFT EXTRACAPSULAR CATARACT REMOVAL WITH INTRAOCULAR LENS performed by Rad Morgan MD at [facility] REMOVE CATARACT, INSERT LENS PROSTH Right 03/30/2022 RIGHT EXTRACAPSULAR CATARACT REMOVAL WITH INTRAOCULAR LENS performed by Rad Morgan MD at [facility] REMOVE TONSILS & ADENOIDS, AGE 12+ UMBIL HERNIA REPAIR (INCARCERATED) AGE 5+YR Social History: Social History Tobacco Use Smoking status: Never Passive exposure: Never Smokeless tobacco: Never Vaping Use Vaping status: Never Used Substance Use Topics Alcohol use: Not Currently Comment: rarely Drug use: No Family History: Family History Problem Relation Name Age of Onset Other (Aneurysm) Father Other (Lymphoma) Mother Allergies: Cat dander ROS: See HPI above; rest of systems review negative. PHYSICAL EXAMINATION: Most Recent Vital Signs: BP: 125 mmHg/74 mmHg (01/09/24 1300) Pulse: 71 (01/09/24 1300) Resp: 16 (01/09/24 1300) Temp: 36.11 C (01/09/24 0829) Temp Summary: Temp Min: 36.1 C (97 F) Max: 36.1 C (97 F) SpO2: 95 % (01/09/24 0932) O2 flow rate: Supplemental O2 Delivery: Vital Signs Last 24 Hours: Systolic BP: Most Recent Systolic BP Av.8 mmHg Min: 109 mmHg Max: 126 mmHg Temperature: Most Recent Temperature Av.11 C Min: 36.11 C Max: 36.11 C Pulse: Pulse Av Min: 68 Max: 77 Respirations: Resp Av.8 Min: 16 Max: 20 SpO2: SpO2 Av.5 % Min: 95 % Max: 96 % Constitutional: no acute distress HEENT: normal: normocephalic, atraumatic; no masses, tenderness, or adenopathy Eyes: no scleral icterus, redness, or injection Neck: supple, normal range of motion CV: normal rate and rhythm, no murmur, gallops or rub Chest: normal respiratory effort, lungs clear to auscultation with equal chest exertion Abdomen: normal: soft, bowel sounds normal, no masses, tenderness or appreciable ascites Musculoskeletal: (-) no joint effusions or tenderness Extremities: no clubbing, cyanosis, or edema Skin: warm and dry, no rashes Neuro: oriented to person, place, and time Psych: normal mood and affect, judgement normal, memory normal LABS: Labs reviewed. Latest Reference Range & Units 01/09/24 09:01 01/09/24 11:18 01/09/24 11:21 Troponin T, High Sensitivity <=22 ng/L 39 (H) 35 (H) Sodium 135 - 146 mmol/L 140 Potassium 3.5 - 5.1 mmol/L 4.2 Chloride 98 - 107 mmol/L 104 CO2 22 - 32 mmol/L 24 BUN 6 - 20 mg/dL 20 Creatinine 0.6 - 1.2 mg/dL 1.0 Estimated Glomerular Filtration Rate >=60 mL/min 81 Anion Gap 7 - 15 mmol/L 12 Glucose 70 - 120 mg/dL 89 Calcium 8.4 - 10.2 mg/dL 8.6 Magnesium 1.5 - 2.6 mg/dL 1.2 (L) Protein 6.0 - 8.3 g/dL 5.9 (L) INR 0.8 - 1.2 3.8 (H) Prothrombin Time 11.6 - 15.2 seconds 37.9 (H) CBC Rpt ! WBC 4.00 - 10.80 K/uL 7.98 RBC 4.50 - 5.25 M/uL 3.97 HGB 14.0 - 16.8 g/dL 11.9 (L) HCT 40.0 - 48.4 % 35.8 (L) MCV 82.0 - 99.5 fL 90.2 MCH 27.0 - 34.0 pg 30.0 MCHC 32.0 - 36.0 g/dL 33.2 RDW 11.5 - 15.5 % 15.3 PLT 140 - 400 K/uL 203 MPV 6.6 - 11.1 fL 8.6 CBC WITH WBC DIFFERENTIAL Rpt ! Absolute Neutrophils 1.80 - 7.70 K/uL 4.92 Absolute Lymphocytes 1.00 - 4.80 K/ul 2.04 Absolute Monocytes 0.00 - 1.10 K/uL 0.61 Absolute Eosinophils 0.00 - 0.70 K/uL 0.32 Absolute Basophils 0.00 - 0.20 K/uL 0.05 URINALYSIS, REFLEX TO CULTURE (CUP ONLY) Rpt URINALYSIS, REFLEX TO CULTURE Rpt ! CULTURE, URINE, QUANTITATIVE Rpt (IP) Albumin 3.8 - 5.0 g/dL 3.5 (L) AST 10 - 50 U/L 22 ALT 10 - 50 U/L 16 Alkaline Phosphatase 35 - 130 U/L 47 Bilirubin, Total <=1.2 mg/dL 0.5 Color, Urine Light Yellow, Yellow, Dark Yellow Yellow Clarity, Urine Clear Clear Glucose, Urine Negative mg/dL Negative Bilirubin, Urine Negative Negative Ketone, Urine Negative mg/dL Negative Specific [place], Urine 1.003 - 1.030 1.011 Blood, Urine Negative Large ! pH, Urine 5.0 - 7.5 Units 6.0 Protein, Urine Negative mg/dL Negative Urobilinogen, Urine 0.2, 1.0 mg/dL 0.2 Nitrite, Urine Negative Negative Esterase, Urine Negative Negative Bacteria, Urine 0 - 25 /HPF 26-50 ! WBC, Urine 0 - 2 /HPF 0-2 RBC, Urine 0 - 2 /HPF 50+ ! URINALYSIS, REFLEX TO CULTURE (NOT FOR NEUTROPENIC PATIENTS) Rpt ! (H): Data is abnormally high (L): Data is abnormally low !: Data is abnormal (IP): In Process Rpt: View report in Results Review for more information IMPRESSION: Lewis Camacho is a(n) 73 year old male who presents with weakness, near syncope, dysuria symptom, just completed antibx. Patient has chronic nausea, vomiting, gradual weight loss and constipation symptoms.DDX: med side effect, gastroparesis, IBS -C related, obstructive process. Was reduced scheduled for EGD and colonoscopy evaluation in March. He vomited food material while undergoing GES, thus not completed. RECOMMENDATIONS/PLAN: - Obtain CT abd/pelvis - Miralax 17g daily + Fiber packet daily - Omeprazole 20mg daily - Trial Linzess 72mcg daily if no signs of masses/obstruction CT - F/U urine culture - Recommend anemia workup - Symptomatic management with antiemetics prn - Consider EGD and colonoscopy eval IP vs. OP depending on clinical response and once optimized from medical standpoint. - Nutrition consult I have discussed the case with my attending, Dr Zuhair Sandoval. Associated attestation - Zuhair Sandoval MD - 01/09/2024 7:16 PM EDT With seen examined and agree with the note as outlined above by the nurse practitioner. Presents with intermittent constipation with intermittent nausea vomiting. Recurrent UTIs documented in this encounter Nursing Notes * Leena Bellamy RN - 01/14/2024 2:18 PM EDT 1415. Report called to TRYE Ward at [facility]. Patient's transporting to facility for rehab. * Boone Robertson RN - 01/12/2024 6:00 PM EDT New allevyn placed on bottom after area cleansed. * Iliana Bearden RN - 01/09/2024 9:02 PM EDT Completed first dose of oral contrast at 2009. Completed 2nd bottle at 2114. * Carmela Donaldson RN - 01/09/2024 6:28 PM EDT Dual Licensed Skin Assessment completed by this nurse and Kathleen Álvarez RN. The patient is/has a N/A Skin Breakdown (includes non blanchable erythema): No * Antony Ya RN - 01/09/2024 3:40 PM EDT VIRTUAL RN [facility] [address] Name: Lewis Camacho Location: [facility] [id number] Date: 01/09/2024 Time: 3:40 PM I completed the Admission Navigator. The patient was in the hospital. I was in a private office space at a [facility] location. After connecting through [employer], the patient was identified by name and date of and / or wristband checked. Patient (or authorized legal sales representative consultant) was then in formed that this was a Virtual Nurse visit and was being conducted confidentially over secure lines. I used a headset and other methods to ensure confidentiality for the patient. Patient acknowledgedconsent and understanding of privacy and security of the Virtual Nurse visit. I presented the opportunity for the patient or authorized legal sales representative consultant to ask any questions regarding the visit today. The patient or authorized legal sales representative consultant agreed to participate. Lewis Camacho is a 73 y.o.m. admitted with a near syncope episode at home. His , Ciara, is at the bedside for support, andanswered all the admission questions d/t the patient being very [place], and not having any hearing aids. Patient's states he is A&Ox4, has difficulty with walking. Uses either a walker or wheelchair in their home. She knows all his meds, their use, and dosing schedule. States she understands everything we discussed, and has no questions at the present time. Requested that the patient not get OOB w/o assistance from the nursing staff. Both he, and his , Ciara, state they will definitelyring when needing help. Call kebede is within reach. * Carmela Donaldson RN - 01/09/2024 3:30 PM EDT Pt arrived to room 5132W from the ED. Pt was slid over to bed the bed from the stretcher. Denies pain at this time. Oriented pt to room and call kebede system. at bedside. VS obtained. Admission questions completed via VRN. documented in this encounter ED Notes * Robbie Jenkins DO - 01/09/2024 9:16 AM EDT HISTORY OF PRESENT ILLNESS Lewis Camacho is a 73 year old male who presents to the ED for evaluation of Weakness, Generalized. The patient was seen at 01/09/24 0836. 73-year-old male with a history of diabetes, hyperparathyroid, BPH, hyperlipidemia, hypertension, on warfarin presenting to the emergency depart with lightheadedness. He was walking to the bathroom he developed lightheadedness. He sat down on the toilet. He urinated. He has burning. He just finished his antibiotic yesterday. He has been on 5 antibiotics over the summer for UTI. He does not have any urgency. Denies nausea, vomiting, abdominal pain, chest pain, coughing or shortness of breath. He is still feeling a little bit "woozy" and weak. He denies any abnormal bowel movements or fevers. History provided by: patient nursing center tutor used: No Weakness, Generalized The patient's allergies, past history, and medications were reviewed. PHYSICAL EXAM Initial Vitals (see all): BP 109/68 | Pulse 77 | Resp 20 | Temp 97 | O2 96 %Weight 68.04 kg | Height 175.3 cm | BMI 22.15 kg/m2 Initial Pain Assessment (see all): 0 (no pain)/10 ([facility] Adult Scale 0-10) Physical Exam Vitals and nursing note reviewed. Constitutional: General: He is not in acute distress. Appearance: Normal appearance. He is not ill-appearing. HENT: Head: Normocephalic and atraumatic. Nose: Nose normal. Mouth/Throat: Mouth: Mucous membranes are moist. Eyes: Extraocular Movements: Extraocular movements intact. Pupils: Pupils are equal, round, and reactive to light. Cardiovascular: Rate and Rhythm: Normal rate and regular rhythm. Pulses: Normal pulses. Pulmonary: Effort: Pulmonary effort is normal. No respiratory distress. Breath sounds: Normal breath sounds. No wheezing, rhonchi or rales. Abdominal: General: Abdomen is flat. There is no distension. Palpations: Abdomen is soft. Tenderness: There is no abdominal tenderness. There is no guarding. Musculoskeletal: Cervical back: Normal range of motion. Right lower leg: No edema. Left lower leg: No edema. Skin: General: Skin is warm and dry. Neurological: General: No focal deficit present. Mental Status: He is alert. Sensory: No sensory deficit. Motor: No weakness. Psychiatric: Mood and Affect: Mood normal. Behavior: Behavior normal. PROCEDURES AND TREATMENTS ED Orders | ED Results MEDICAL DECISION MAKING Nursing notes and vital signs were reviewed. ED Course as of 01/09/24 1250 SunJan 09, 2024 1225 Patient has hypomagnesemia, I have ordered repletion. INR is slightly supratherapeutic at 3.8.First troponin is 39 which is elevated from his baseline. He does have blood in his urine but not consistent with urinary tract infection. Mild anemia but around his baseline. No leukocytosis. Repeattroponin in process. Nursing attempted to get the patient up and see how he did ambulating. He was a full to nurse's assist just to try and sit up in bed [AT] 1227 I have contacted the medicine team to discuss admission. [AT] 1250 Patient accepted by the hospital medicine team for further care. Troponin series is negative. I have updated the patient and family at bedside. They are in agreement with the plan. [AT] ED Course User Index [AT] Robbie Jenkins DO Differential Diagnoses Based on my history, physical exam, and evaluation, the differential includes, but is not limited, to the following diagnoses: Near-syncope, dysrhythmia, dehydration, electrolyte abnormality, UTI, sepsis unlikely, vasovagal episode. 73-year-old male presenting to the emergency department with a near syncopal episode. The patient had this this morning while he was walking in the bathroom. He still feels a little bit symptomatic with wooziness and weakness. He is neurovascularly intact in all extremities. No focal deficits. Overall well- appearing resting in bed in no distress. His vitals are reassuring. EKG will be obtained along with a metabolic panel, CBC, magnesium, urine, chest x-ray, troponin, and an INR. Patient will be given a 500 mL fluid bolus. Orthostatics will be obtained. On my independent review of his EKG he has a normal sinus rhythm at a rate of 76. Intervals within normal limits. I do not see any acute STsegment changes to suggest ischemia and it is overall similar to prior. Amount and/or Complexity of Data Reviewed Labs: ordered. Radiology: ordered. ECG/medicine tests: ordered. Risk Prescription drug management. Decision regarding hospitalization. Clinical Impressions Near syncope Hypomagnesemia Urinary retention Disposition Admitted. I discussed the management of this patient with the admitting provider and I made a decision to admit the patient. Admission Order Ordered Status . 01/09/24 1250 Admit for Inpatient Services (incl ZPO) ONCE Ordered Robbie Jenkins * Natasha Gaines RN - 01/09/2024 8:31 AM EDT Pt arrives to ED via EMS for complaints of generalized weakness and dysuria that has been ongoing for the past couple days. Per EMS, pt has had 5 UTIs since October and has been on 5 different antibiotics. Reports taking the last dose of cefpodoxime last night. BSBS 64, +hx diabetes. documented in this encounter Miscellaneous Notes * Ancillary Progress Note - Emily German RN - 01/14/2024 1:47 PM EDT CARE MANAGEMENT - ADULT DISCHARGE NOTE [facility] [address] Name: Lewis Camacho Location: [facility] [id number] Date: 01/14/2024 Time: 1:47 PM The following coordination of care and discharge plan has been coordinated with the care team, patient, family and/or caregiver according to the patients needs and preferences. Discharge Discharge Second Notice Important Message from Medicare delivered: Yes (01/14/24 1300) Was Caregiver/Family/Facility contacted regarding discharge: Yes (01/14/24 1300) Discharge Transportation: Family/F[address] drive (01/14/24 1300) Date of scheduled discharge transportation: 01/14/24 (01/14/24 1300) Time of scheduled discharge transportation: 1400 (01/14/24 1300) Patient declined post-hospital transition of care recommendation: N/A (01/14/24 1300) Final Discharge Plan (Complete only at time of Discharge): IP Rehab ([facility]) (01/14/24 1300) Destination - Admitted Since 01/09/2024 Service Provider Selected Services Address Phone Fax Patient Preferred Last Updated [facility] [address] [place] [address] [phone] -- Emily German RN 01/11/2024 1539 Narrative: Patient discharged to [facility] for short-term rehab. * Ancillary Progress Note - Emily German RN - 01/14/2024 1:17 PM EDT Reviewed IMM with patient and informed that patient is medically stable for discharge, however, mayhave 4 hours to consider whether they want to appeal discharge. Patient waived waiting those 4 hours and wishes for discharge to occur prior to that time. * Care Plan - Gladys Ferguson RN - 01/14/2024 6:02 AM EDT Clinical Goal(s): Pt will be free of falls during shift (01/13/24 9286) Possible barriers to meeting goal(s)/advancing plan of care: admitting diagnosis Stability of the patient: Moderately stable - low risk of patient condition declining or worsening Summary regarding today's goal(s): Met: Pt remained free of falls this shift. Recommendations: continue plan of care * Care Plan - Jessi Puri RN - 01/13/2024 5:23 PM EDT Clinical Goal(s): Pt will remain free from falls during this shift (01/13/24 0900) Possible barriers to meeting goal(s)/advancing plan of care: hospital environment, orthostatic hypotension Stability of the patient: Moderately stable - low risk of patient condition declining or worsening Summary regarding today's goal(s): Met: pt free of falls during this shift Recommendations: continue to implement fall precautions * Pt Handout (on AVS) - Melanie Shah RN - 01/13/2024 3:49 PM EDT Images from the original note were not included. [address]83 Urinary Tract Infections in Men Urinary tract infections (UTIs) are most often caused by bacteria that invade the urinary tract. The bacteria may come from outside the body. Or they may travel from the skin outside of the rectum into the urethra. Pain in or around the urinary tract is a common symptom for most UTIs. Other symptoms of a UTI may include pain when peeing, blood in the pee, flank or groin pain, chills and a fever, and nausea and vomiting. The only way to know for sure if you have a UTI is to have a urinalysis andurine culture. Types of UTIs Cystitis. This is a bladder infection. It's often caused by a blockage from an enlarged prostate. You may have an urgent or frequent need to pee. You may have bloody pee. Treatment includes antibiotics and medicine to relax or shrink the prostate. Some people need surgery. Urethritis. This is an infection of the urethra. You may have fluid from the urethra or a burning feeling when you pee. You may have pain in the urethra or penis. It's treated with antibiotics. Prostatitis. This is an inflammation or infection of the prostate. You may have an urgent or frequent need to pee, a burning feeling when you pee, or a fever. Or you may have a sore prostate or a vague feeling of pressure. Prostatitis is treated with a range of medicines. This depends on the cause. Pyelonephritis. This is a kidney infection. If not treated, it can be serious and damage your kidneys. In severe cases, you may need to stay in the hospital. You may have a fever and low back pain. Medicines to treat a UTI Most UTIs are treated with antibiotics. These kill the bacteria. The length of time you need to take them depends on the type of infection. Take antibiotics exactly as directed until all of the medicine is gone, even if you feel better. If you don't, the infection may not go away. It may become harder to treat. For some types of UTIs, you may be given other medicine to help treat your symptoms. Self-care to treat and prevent UTIs The lifestyle changes below will help get rid of your infection. They may help prevent future UTIs. Drink plenty of fluids. This includes water, juice, or other caffeine-free drinks. This helps flush bacteria out of your system. Empty your bladder when you feel the urge to pee and before going to sleep. Pee that stays in your bladder promotes infection. Use condoms during sex. These help prevent UTIs caused by bacteria spread from sex. Keep follow-up appointments with your healthcare provider. They may do tests to make sure the infection has cleared. If needed, more treatment can be started. Other treatments Most UTIs respond to medicine. Some people need a procedure or surgery. This may be done to treat an enlarged prostate. Or it can remove a kidney stone or other blockage. Surgery can be done to treatproblems caused by scarring or long-term infections. Last Reviewed Date: 07/13/202319998710-2466 [employer]. All rights reserved. This information is not intended as a substitute for professional medical care. Always follow your healthcare professional's instructions. * Pt Handout (on AVS) - Melanie Shah RN - 01/13/2024 3:49 PM EDT Images from the original note were not included. [id number] Preventing Falls at Home A person can fall for many reasons. Older adults may fall because reaction time slows as we age. Your muscles and joints may get stiff, weak, or less flexible because of illness, medicines, or a physical condition. Other health problems that make falls more likely include: Arthritis Dizziness or lightheadedness when you stand up (orthostatic hypotension) History of a stroke Dizziness Anemia Certain medicines taken for mental illness or to control blood pressure. Problems with balance or gait Bladder or urinary problems History of falling Changes in vision (vision impairment) Changes in thinking skills and memory (cognitive impairment) Muscle weakness Excessive alcohol use Falls can cause serious injuries, such as head trauma, broken bones, dislocated joints, internal bleeding, and cuts. Injuries like these can limit your independence. Prevention tips To help prevent falls and fall-related injuries, follow the tips below. Floors To make floors safer: Put nonskid pads under area rugs. Remove small rugs. Replace worn floor coverings. Tack carpets firmly to each step on carpeted stairs. Put nonskid strips on the edges of uncarpeted stairs. Keep floors and stairs free of clutter and cords. Keep floors and stairs clear of animal and children's toys Arrange furniture so there are clear pathways. Clean up any spills right away. Don't walk on wet floors. Bathrooms To make bathrooms safer: Install grab bars in the tub or shower. Install a raised (elevated) toilet or toilet seat. Apply nonskid strips or put a nonskid rubber mat in the tub or shower. Sit on a bath chair to bathe. Use bathmats with nonskid backing. Lighting To improve visibility in your home: Keep a flashlight in each room. Or put a lamp next to the bed within easy reach. Put nightlights in the bedrooms, hallways, kitchen, and bathrooms. Make sure all stairways have good lighting. There should be a light switch at the bottom and thetop of each stairway. Other changes to make Look around to find any safety hazards. Look closely at doorways, walkways, and the driveway. Remove or repair any safety problems that you find. Wear shoes that fit well. Never go barefoot or wear socks or slippers with smooth soles. See your eye care provider once a year if you wear glasses. This is to be sure the prescription is still right for you. Take your time when going up and down stairs; always use handrails. Never carry items in both hands. Wear an alert necklace or bracelet if you are already prone to falling. Put handrails on both sides of stairs and in walkways for more support. To prevent injury to your wrist or arm, don?t use handrails to pull yourself up. Use a "reach stick" to grab [id number] items. Install grab bars wherever needed to pull yourself up. Arrange items that you use often. This will make them easier to find or reach. Keep track of where your pets are so you don't trip over them when you are walking. Last Reviewed Date: 03/14/202219999883-7177 [employer]. All rights reserved. This information is not intended as a substitute for professional medical care. Always follow your healthcare professional's instructions. * Pt Handout (on AVS) - Melanie Shah RN - 01/13/2024 3:49 PM EDT Images from the original note were not included. [id number] Urinary Retention (Male) Urinary retention is when you have trouble urinating. In some cases, you may not be able to pass any urine at all. This condition occurs even though your bladder is full. We understand gender is a spectrum. We may use gendered terms to talk about anatomy and health risk. Please use this information in a way that works best for you and your provider as you talk about your care. Causes The most common cause of urinary retention in men is the bladder outlet being blocked. This can be due to an enlarged prostate gland or an infection in the prostate or bladder. Some medicines can also cause this problem. This condition is more likely to occur as men get older. Symptoms Common symptoms include: Pain (not everyone has this) Frequent urination Feeling that the bladder is still full after urinating Not being able to control the release of urine (incontinence) Swollen belly (abdomen) Treatment This condition is treated by putting a tube (catheter) into the bladder to drain the urine. It gives relief right away. The catheter may need to stay in place for a few days. The catheter has a balloon on the tip. This is inflated after the catheter is put in the bladder. It prevents the catheter from falling out. Home care If you were given antibiotics, take them until they are used up, or your healthcare provider tells you to stop. It's important to finish the antibiotics even if you feel better. This is to make sure your infection has cleared. If a catheter was left in place, it's important to keep bacteria from getting into the collection bag. Don't disconnect the catheter from the collection bag. Use a leg band to secure the drainage tube, so it does not pull on the catheter. Drain the collection bag when it becomes full using the drain spout at the bottom of the bag. Don't pull on or try to take out your catheter. This will harm your urethra. The catheter must be removed by a healthcare provider. Follow-up care Follow up with your healthcare provider, or as advised. If a catheter was left in place, it can often be removed in 3 to 7 days. Some conditions require the catheter to stay in longer. Your provider will tell you when to come back to have the catheter removed. When to get medical advice Call your healthcare provider right away if any of these occur: Fever of 100.4F (38C) or higher, or as directed by your provider Bladder or lower-belly pain or fullness Belly swelling, nausea, vomiting, or back pain Blood or urine leakage around the catheter Bloody urine coming from the catheter (if a new symptom) Weakness, dizziness, or fainting Confusion or change in normal level of alertness If a catheter was left in place, see your provider if the catheter: o Falls out o Stops draining for 6 hours Last Reviewed Date: 10/12/202119990766-2543 [employer]. All rights reserved. This information is not intended as a substitute for professional medical care. Always follow your healthcare professional's instructions. * Care Plan - Boone Robertson RN - 01/11/2024 7:31 PM EDT Clinical Goal(s): Patient will be free of falls for this shift (01/11/24 0820) Possible barriers to meeting goal(s)/advancing plan of care: Diagnosis Stability of the patient: Moderately stable - low risk of patient condition declining or worsening Summary regarding today's goal(s): Met: Patient did not fall Recommendations: Hourly rounds, call kebede within reach, assist with ambulation * Ancillary Progress Note - Gerardo Horan PTA - 01/11/2024 5:00 PM EDT PROGRESS NOTE - Physical Therapy [facility] [address] Name: Lewis Camacho Location: [facility] [id number] Date: 01/11/2024 Time: 1699 Lewis Camacho is a/an 73 year old male. Patient Status: Inpatient Insurance: Payor: MEDICARE Plan: MEDICARE A AND B Product Type: *No Product type* Payor: AARP Plan: AARP Product Type: *No Product type* Patient Seen: at bedside, nursing cleared patient for therapy Patient Identified By: Name, ID Band and Date Diagnosis: Gait dysfunction, weakness, near syncope, persistant UTI (01/10/241452) Status of treatment: Treatment completed (01/11/241699) Orders: PT evaluation and treatment (01/10/241452) Weight Bearing Status: Weight bearing as tolerated (01/11/241699) Precautions: Safety;Falls;Isolation (01/11/241699) Total Treatment Time--free text: 25 mins (01/11/241699) Subjective: "I'm feeling maybe a little better" Pain: No complaints of pain P.T. Bed Mobility Supine-Sit: Moderate Assistance (01/11/241699) Transfers Sit-Stand: Minimal Assistance (01/11/241699) Stand-Sit: Minimal Assistance (01/11/241699) W/C-Bed/Mat: Moderate Assistance (01/11/241699) Ambulation: Distance ambulated (feet): 3 Assistive Device: Rolling walker Assist: Contact Guard Balance Sit (Static): Good (01/10/241452) Sit (Dynamic): Good (01/10/241452) Stand (Static): Fair (01/10/241452) Stand (Dynamic): Not Tested (01/10/241452) Patient and or Family Goal(s): to get well and to return home Topic of Education: Safety with mobility, Use of assistive device, and Fall prevention Method of Education: Demonstrated the above task to pt: verbalized understanding and or agreement of this information and demonstrated the exercise and or task Treatment Provided: Therapeutic Activities 25 minutes: bed mobility training transfer training Alarm Status Patient positioned in: Chair (01/11/241699) With: Pressure pad alarm intact and functioning and call kebede in reach (01/11/241699) Patient Education Review of Precautions: Safety;Fall (01/11/241699) Safety Awareness: Patient verbalizes insight of current deficits;Patient demonstrates carryover of insight during functional tasks;Patient can communicate basic needs (01/11/241699) Preferred learning method: Combination (01/10/241452) Barriers to learning: Medical Status (01/10/241452) Assessment: Pt tolerated tx fair with no reported pain or SOB post tx session. Pt did report feeling fatigued post tx session. Pt's Orthostatic BPs taken during tx session. BP are as follows: supine 126/63, sitting 106/60, standing 92/50. Pt reported feeling slightly lightheaded but stated he felt much better than yesterday. Pt required Mod A for bed mobility and then Min A for sit to standing. Pt displayed no LOB during GT bout. Pt was left sitting up in the chair with feet elevated to comfort. Pt is unsteady and unsafe to transfer w/o assistance. No needs post tx session. Pt instructed to not get up without assistance. Deficits requiring P.T. treatment needs: Mobility;Balance;Weakness;Endurance (01/10/241452) Plan: Continue with current treatment plan established on evaluation. AM PAC Score with Stairs: 14 * Ancillary Progress Note - Emily German RN - 01/11/2024 1:07 PM EDT Patient referred to [facility] at his and spouse's request. AMPA score is currently 13. 1530 Patient accepted at [facility] for inpatient rehab. Anticipated discharge on 01/11. Spouse, Ciara, will transport to facility. Call Jeanna Villa to confirm acceptance at [facility]. * Diagnostic Clarification - Liam Barajas MD - 01/11/2024 12:41 PM EDT The patient has been diagnosed with chronic atrial fibrillation. * Diagnostic Clarification - Liam Barajas MD - 01/11/2024 12:36 PM EDT - Orthostatic hypotension * Care Plan - Darcie Pena RN - 01/10/2024 5:06 PM EDT Clinical Goal(s): Pt will haveadequate urine output this shift (01/10/24 0738) Possible barriers to meeting goal(s)/advancing plan of care: Admitting diagnosis Stability of the patient: Moderately stable - low risk of patient condition declining or worsening Summary regarding today's goal(s): Met: Pt had adequate urine output this shift Recommendations: Continue current plan of care, monitor I&O, trend daily wt. * Ancillary Progress Note - Lurdes Mathis RN - 01/10/2024 2:36 PM EDT CARE MANAGEMENT - ADULT INITIAL SCREENING [facility] [address] Name: Lewis Camacho Location: [facility] [id number]/W Date: 01/10/2024 Time: 2:36 PM Discussed patient with the interdisciplinary care team. This Insolvency Consultant performed a chart review and met with patient at bedside to complete admission screen and assessed needs for transition planning. The caregiver assisted living role and services were explained and emotional support was provided. Chief Complaint: Weakness, Generalized Prior Living Arrangements What was your living situation prior to admission/observation?: With Spouse (01/10/241425) Living Quarters: House (01/10/241425) Number of steps to enter living quarters:: 2 (01/10/241425) Do you have serious difficulty walking or climbing stairs? (5 years old or older): Yes (01/09/24 152) History of falling: No (01/10/24 07) Prior Level of Functioning Describe the patient's ability prior to admission/observation to perform ADLs: Requires assistance (01/10/241425) Requires assistance with: Dressing;Toileting;Bathing;Grooming;Eating (01/09/24 162) Describe the patient's mobility status prior to admission: Patient requires assistance with ambulation (01/10/241425) Patient uses assistive device: Yes (01/10/241425) If yes, choose:: Walker;Wheelchair (01/10/241425) Caregiver Information Patient Contacts Name Relation Home Work Mobile CIARA CAMACHO Spouse [phone] Yanelis Lawson Adult Child [phone] Risk Stratification/Psychosocial/Care Gaps Risk Stratification Psycho Social / Medical Concerns Identified: Adjustment to illness/injury;Multiple Comorbidities (01/10/241425) [facility] patients to [facility] care resources: No (01/10/241425) Readmission Risk Score: 26.26 (01/10/24 1201) AM-PAC Score With Stairs : 10 (01/10/24 0738) Prior to Admission Services Services Prior to Admission SONG WRITER Services (Services received within the last 30 days with exception, Psych within last two years): Durable Medical Equipment;Home Health (01/10/241425) SONG WRITER Durable Medical Equipment (DME) in home: Walker Rolling;Wheelchair standard;Shower chair/bench;Seat Lift Chair (01/10/241425) SONG WRITER Transportation (Services received within the last 30 days): Family/Friends Personal Vehicle (01/10/241425) Outpatient Insolvency Consultant: Patient Care Team: Rebekah Rivas RN as Stamp Collector (Registered Nurse) Patient/Family Expectations: home Patient lives with in a single story home with 2 ISHMAEL. Requires assist with ADL's and ambulation/transfers. Has a wheeled walker, w/c, reclining lift chair and shower chair at home. providestransportation. Discussed discharge planning. States had [facility] until 2wks ago. Agreeable to at discharge if needed. Referral opened in [place] to [facility]. For further screening information, please refer to the Care Management flow document. * Ancillary Progress Note - Violet Montgomery RDN - 01/10/2024 11:26 AM EDT CLINICAL NUTRITION ADULT RISK ASSESSMENT [address] [address] Name: Lewis Camacho Location: [facility] [id number]/W Date: 01/10/2024 Time: 10:26 AM How patient was identified (select 2): date and Name Lewis Camacho is a 73 year old male being assessed for clinical nutrition risk related to reduced dietary intake and significant unintentional weight loss Primary diagnosis: Near syncope Other pertinent information: Met patient at bedside. Patient reports appetite was not so good for aweek. Consumed 50% of breakfast and 50% of lunch today. No chewing or swallowing difficulties. Reports of constipation and diarrhea for the past couple days. Patient is diagnosed with diabetes, he follows a carbohydrate consistent diet. Patient reports weight loss. 9.9% of weight loss in 3 months is noted per EMR. Will order boost glucose control chocolate at breakfast to promote calorie/protein intake. Breakfast - muffin, banana Lunch - chicken, fries Dinner - cooks - vegetables, chicken, fish [place] - small piece of cake Anthropometrics Measurements Admission weight (for dietitians): 66.9 kg Height: 175.3 cm (5' 9") (01/09/24 1521) Weight: 73.1 kg (161 lb 1.6 oz) (01/10/24 0619) BMI: 21.77 (01/09/24 1521) Usual Body Weight or EDW for Dialysis Patients: 150 lbs (68.2 kg) per patient Diet: 4 Choices (60 gm) Consistent Carbohydrate Heart Healthy, 2 gm Sodium Previously followed diet: Regular Food Allergies/Intolerances: NKFA Oral Nutrition Supplement (ONS): none Pertinent medications/vitamins/minerals/supplements: vitamin D3, ferrous sulfate, novolog, soluble fiber packet, omeprazole, miralax RISK FACTORS: Adult Energy Intake: No significant decrease Interpretation of Weight Change: No recent/significant weight change Greater than 7.5% weight loss in 3 months (Severe); 9.9% in 3 months Skin: Intact NUTRITION RISK CATEGORY: Nutrition Risk Category: Low/Moderate (0-1 factors) Clinical Nutrition Recommendations: Diet: Continue current nutrition plan NUTRITION INTERVENTION/PLAN: Orders: Oral nutrition supplement added Boost Glucose Control (1 cup provides 190 calories, 16 grams protein, 16 grams carbohydrate) daily Will follow and adjust nutritional plan as medical condition requires. Please contact for change(s)in patient condition requiring earlier intervention. Violet Montgomery MS, RDN Clinical Nutrition [facility] Available via [place] Text [phone] * Care Plan - Iliana Bearden RN - 01/10/2024 6:47 AM EDT Clinical Goal(s): Pt will remain free of falls this shift. (01/09/242014) Possible barriers to meeting goal(s)/advancing plan of care: hospital environment Stability of the patient: Moderately stable - low risk of patient condition declining or worsening Summary regarding today's goal(s): Met: Pt remained free of falls this shift. Recommendations: Continue fall precautions and hourly rounding. * Pt Handout (on AVS) - Marito Tiwari RN - 01/09/2024 10:49 PM EDT [id number] Near-Fainting with Uncertain Cause Fainting (syncope) is a temporary loss of consciousness. It's often called passing out. It happens when blood flow to the brain is reduced. Near-fainting (near-syncope) is like fainting, but you don't fully pass out. Instead, you feel like you are going to pass out, but don't actually lose consciousness. Signs and symptoms These are symptoms of near-fainting or symptoms that can be associated with near-fainting: Feeling lightheaded or like you are going to faint Weak pulse Nausea Sweating Blurred vision or feeling like your vision is fading Palpitations Chest pain Trouble breathing Feeling cool and clammy Causes Fainting typically happens when your blood pressure or heart rate suddenly drops, and not enough blood flows to your brain. Common minor causes include: Sudden emotional stress such as fear, pain, panic, or the sight of blood Straining or overexertion, such as straining while using the toilet, vomiting, coughing, or sneezing Standing up too quickly, or standing up for too long a time More serious causes include: Very slow, fast, or irregular heart rate (arrhythmia) Dehydration Significant blood loss Medicines, or a recent change in medicines. Medicines that can cause fainting include blood pressure or heart medicines. Heart attack Heart valve problems Remember, even minor causes can become serious if you fall and injure yourself, or are driving. Youmay need more tests. It's very important that you follow up with your doctor as advised. Home care These guidelines will help you care for yourself at home: Rest today. You can resume most of your normal activities as soon as you are feeling back to normal. If you become lightheaded or dizzy, lie down right away or sit with your head between your knees. Drink plenty of fluids and don't skip meals. Because the exact cause of your near fainting spell is not known, another spell could occur withoutwarning. To stay safe, don't drive a car or use dangerous equipment. Don't take a bath alone. Don'tswim alone. You can resume these activities when your healthcare provider says that you are no longer in danger of having a near-fainting spell. Follow-up care Follow up with your healthcare provider, or as advised. Call 911 Call 911 or get emergency care if any of the following occur: Another near-fainting or full fainting spell occurs, and it's not explained by the common minor causes listed above Chest, arm, neck, jaw, back or abdominal pain Shortness of breath Weakness, tingling, or numbness in one side of the face, or in one arm or leg Slurred speech, confusion, trouble walking or seeing Seizure When to get medical advice Call your healthcare provider for advice if any of these occur: Changes in your medicines You start to have near fainting on a more frequent basis Last Reviewed Date: 07/12/202119996701-4776 [employer]. All rights reserved. This information is not intended as a substitute for professional medical care. Always follow your healthcare professional's instructions. * Care Plan - Carmela Donaldson RN - 01/09/2024 6:36 PM EDT Clinical Goal(s): Pt will eat 25% of his dinner this shift. (01/09/24 1530) Possible barriers to meeting goal(s)/advancing plan of care: clinical diagnosis Stability of the patient: Moderately stable - low risk of patient condition declining or worsening Summary regarding today's goal(s): Not Met: Pt only ate 5% of his dinner. Recommendations: Continue plan of care * Pt Handout (on AVS) - Nasir Varela RPh - 01/09/2024 4:14 PM EDT Images from the original note were not included. Warfarin - Video Let's take a minute to talk about your medication. This is warfarin, and you should take your dose as directed by your doctor. Warfarin prevents and treats blood clots. To view the video go to this web address: https://bit.VNG/[email or web address] Or, scan this QR code with your smart phone 2023 [employer] / [employer]. All Rights Reserved. * Pt Handout (on AVS) - Nasir Varela RPh - 01/09/2024 4:14 PM EDT [id number] Warfarin Brand Name(s): Coumadin, Jantoven; also available generically IMPORTANT WARNING: Warfarin may cause severe bleeding that can be life-threatening and even cause . Tell your doctor if you have or have ever had a blood or bleeding disorder; bleeding problems, especially in yourstomach or your esophagus (tube from the throat to the stomach), intestines, urinary tract or bladder, or lungs; high blood pressure; heart attack; angina (chest pain or pressure); heart disease; pericarditis (swelling of the lining (sac) around the heart); endocarditis (infection of one or more heart valves); a stroke or ministroke; aneurysm (weakening or tearing of an artery or vein); anemia (low number of red blood cells in the blood); cancer; chronic diarrhea; or kidney, or liver disease. Also tell your doctor if you fall often or have had a recent serious injury or surgery. Bleeding is more likely during warfarin treatment for people over 65 years of age, and it is also more likely during the first month of warfarin treatment. Bleeding is also more likely to occur for people who take high doses of warfarin, or take this medication for a long time. The risk for bleeding while takingwarfarin is also higher for people participating in an activity or sport that may result in seriousinjury. Tell your doctor and pharmacist if you are taking or plan to take any prescription or nonprescription medications, vitamins, nutritional supplements, and herbal or botanical products (See SPECIAL PRECAUTIONS), as some of these products may increase the risk for bleeding while you are takingwarfarin. If you experience any of the following symptoms, call your doctor immediately: pain, swelling, or discomfort, bleeding from a cut that does not stop in the usual amount of time, nosebleeds or bleeding from your gums, coughing up or vomiting blood or material that looks like coffee grounds, unusual bleeding or bruising, increased menstrual flow or vaginal bleeding, pink, red, or dark brown urine, red or tarry black bowel movements, headache, dizziness, or weakness. Some people may respond differently to warfarin based on their heredity or genetic make-up. Your doctor may order a blood test to help find the dose of warfarin that is best for you. Warfarin prevents blood from clotting so it may take longer than usual for you to stop bleeding if you are cut or injured. Avoid activities or sports that have a high risk of causing injury. Call your doctor if bleeding is unusual or if you fall and get hurt, especially if you hit your head. Keep all appointments with your doctor and the laboratory. Your doctor will order a blood test (PT [prothrombin test] reported as INR [international normalized ratio] value) regularly to check your body's response to warfarin. If your doctor tells you to stop taking warfarin, the effects of this medication may last for 2 to 5 days after you stop taking it. Your doctor or pharmacist will give you the career development coordinator's patient information sheet (Medication Guide) when you begin treatment with warfarin and each time you refill your prescription. Read the information carefully and ask your doctor or pharmacist if you have any questions. You can also visit the Food and Drug Administration (FDA) website (http://www.fda.gov/downloads/Drugs/DrugSafety/zvb291823.pdf) or the career development coordinator's website to obtain the Medication Guide. Talk to your doctor about the risk(s) of taking warfarin. WHY is this medicine prescribed? Warfarin is used to prevent blood clots from forming or growing larger in your blood and blood vessels. It is prescribed for people with certain types of irregular heartbeat, people with prosthetic (replacement or mechanical) heart valves, and people who have suffered a heart attack. Warfarin is also used to treat or prevent venous thrombosis (swelling and blood clot in a vein) and pulmonary embolism (a blood clot in the lung). Warfarin is in a class of medications called anticoagulants ('bloodthinners'). It works by decreasing the clotting ability of the blood. HOW should this medicine be used? Warfarin comes as a tablet to take by mouth. It is usually taken once a day with or without food. Take warfarin at around the same time every day. Follow the directions on your prescription label carefully, and ask your doctor or pharmacist to explain any part you do not understand. Take warfarin exactly as directed. Do not take more or less of it or take it more often than prescribed by your doctor. Call your doctor immediately if you take more than your prescribed dose of warfarin. Your doctor will probably start you on a low dose of warfarin and gradually increase or decrease your dose based on the results of your blood tests. Make sure you understand any new dosing instructions from your doctor. Continue to take warfarin even if you feel well. Do not stop taking warfarin without talking to your doctor. Are there OTHER USES for this medicine? This medication may be prescribed for other uses; ask your doctor or pharmacist for more information. What SPECIAL PRECAUTIONS should I follow? Before taking warfarin, tell your doctor and pharmacist if you are allergic to warfarin, any other medications, or any of the ingredients in warfarin tablets. Ask your pharmacist or check the Medication Guide for a list of the ingredients. do not take two or more medications that contain warfarin at the same time. Be sure to check with your doctor or pharmacist if you are uncertain if a medication contains warfarin or warfarin sodium. tell your doctor and pharmacist what prescription and nonprescription medications, vitamins, andnutritional supplements you are taking or plan to take, especially acyclovir (Zovirax); allopurinol(Zyloprim); alprazolam (Xanax); antibiotics such as ciprofloxacin (Cipro), clarithromycin (Biaxin, in Prevpac), erythromycin (E.E.S., Eryc, Jean-Tab), nafcillin, norfloxacin (Noroxin), sulfinpyrazone,telithromycin (Ketek), and tigecycline (Tygacil); anticoagulants such as argatroban (Acova), dabigatran (Pradaxa), bivalirudin (Angiomax), desirudin (Iprivask), heparin, and lepirudin (Refludan); antifungals such as fluconazole (Diflucan), itraconazole (Onmel, Sporanox), ketoconazole (Nizoral), miconazole (Monistat), posaconazole (Noxafil), terbinafine (Lamisil), voriconazole (Vfend); antiplatelet medications such as cilostazol (Pletal), clopidogrel (Plavix), dipyridamole (Persantine, in Aggrenox), prasugrel (Effient), and ticlopidine (Ticlid); aprepitant (Emend); aspirin or aspirin-containing products and other nonsteroidal anti-inflammatory drugs such as celecoxib (Celebrex), diclofenac (Flector, Voltaren, in Arthrotec), diflunisal, fenoprofen (Nalfon), ibuprofen (Advil, Motrin), indomethacin (Indocin), ketoprofen, ketorolac, mefenamic acid (Ponstel), naproxen (Aleve, Naprosyn), oxaprozin (Daypro), piroxicam (Feldene), and sulindac (Clinoril); bicalutamide; bosentan; certain antiarrhythmic medications such as amiodarone (Cordarone, Nexterone, Pacerone), mexiletine, and propafenone(Rythmol); certain calcium channel blocking medications such as amlodipine (Norvasc, in Forrest, Caduet, Exforge, Lotrel, Twynsta), diltiazem (Cardizem, Cartia XT, Dilacor XR, Tiazac) and verapamil (Calan, Isoptin, Verelan, in Tarka); certain medications for asthma such as montelukast (Singulair), zafirlukast (Accolate), and zileuton (Zyflo); certain medications used to treat cancer such as capecitabine (Xeloda), imatinib (Gleevec), and nilotinib (Tasigna); certain medications for cholesterol suchas atorvastatin (Lipitor, in Caduet) and fluvastatin (Lescol); certain medications for digestive disorders such as cimetidine (Tagamet), famotidine (Pepcid), and ranitidine (Zantac); certain medications for human immunodeficiency virus (HIV) infection such as amprenavir, atazanavir (Reyataz), efavirenz (Sustiva), etravirine (Intelence), fosamprenavir (Lexiva), indinavir (Crixivan), lopinavir/ritonavir, nelfinavir (Viracept), ritonavir (Norvir), saquinavir (Invirase), and tipranavir (Aptivus); certain medications for narcolepsy such as armodafinil (Nuvigil) and modafinil (Provigil); certain med ications for seizures such as carbamazepine (Carbatrol, Equetro, Tegretol), phenobarbital, phenytoin (Dilantin, Phenytek), and rufinamide (Banzel); certain medications to treat tuberculosis such as isoniazid (in Rifamate, Rifater) and rifampin (Rifadin, in Rifamate, Rifater); certain selective serotonin reuptake inhibitors (SSRIs) or selective serotonin and norepinephrine reuptake inhibitors (SNRIs) such as citalopram (Celexa), desvenlafaxine (Pristiq), duloxetine (Cymbalta), escitalopram (Lexapro), fluoxetine (Prozac, Sarafem, in Symbyax), fluvoxamine (Luvox), milnacipran (Savella), paroxetine (Paxil, Pexeva), sertraline (Zoloft), venlafaxine (Effexor) corticosteroids such as prednisone; cyclosporine (Neoral, Sandimmune); disulfiram (Antabuse); methoxsalen (Oxsoralen, Uvadex); metronidazole (Flagyl); nefazodone (Serzone), oral contraceptives ( control pills); oxandrolone (Oxandrin); pioglitazone (Actos, in Actoplus Met, Duetact, Oseni); propranolol (Inderal) or vilazodone (Viibryd). Many other medications may also interact with warfarin, so be sure to tell your doctor about all the medications you are taking, even those that do not appear on this list. Do not take any new medications or stop taking any medication without talking to your doctor. tell your doctor and pharmacist what herbal or botanical products you are taking, especially coenzyme Q10 (Ubidecarenone), Echinacea, garlic, Ginkgo biloba, ginseng, goldenseal, and [place]olden's wort. There are many other herbal or botanical products which might affect your body's response to warfarin. Do not start or stop taking any herbal products without talking to your doctor. tell your doctor if you have or have ever had diabetes. Also tell your doctor if you have an infection, a gastrointestinal illness such as diarrhea, or sprue (an allergic reaction to protein foundin grains that causes diarrhea), or an indwelling catheter (a flexible plastic tube that is placed into the bladder to allow the urine to drain out). Tell your doctor if you are , think you might be , or plan to become while taking warfarin. women should not take warfarin unless they have a mechanical heart valve. Talk to your doctor about the use of effective control while taking warfarin. If you become while taking warfarin, call your doctor immediately. Warfarin may harm the fetus. tell your doctor if you are breast-feeding. if you are having surgery, including dental surgery, or any type of medical or dental procedure,tell the doctor or dentist that you are taking warfarin. Your doctor may tell you to stop taking warfarin before the surgery or procedure or change your dosage of warfarin before the surgery or procedure. Follow your doctor's directions carefully and keep all appointments with the laboratory if your doctor orders blood tests to find the best dose of warfarin for you. ask your doctor about the safe use of alcoholic beverages while you are taking warfarin. tell your doctor if you use tobacco products. Cigarette smoking may decrease the effectiveness of this medication. What SPECIAL DIETARY instructions should I follow? Eat a normal, healthy diet. Some foods and beverages, particularly those that contain vitamin K, can affect how warfarin works for you. Ask your doctor or pharmacist for a list of foods that contain vitamin K. Eat consistent amounts of vitamin K-containing food on a qsxc-dx-fodn basis. Do not eat large amounts of leafy, green vegetables or certain vegetable oils that contain large amounts of vitamin K. Be sure to talk to your doctor before you make any changes in your diet. Talk to your doctor about eating grapefruit and drinking grapefruit juice while taking this medication. What should I do IF I FORGET to take a dose? Take the missed dose as soon as you remember it, if it is the same day that you were to take the dose. Do not take a double dose the next day to make up for a missed one. Call your doctor if you wilfredo dose of warfarin. What SIDE EFFECTS can this medicine cause? Warfarin may cause side effects. Tell your doctor if any of these symptoms are severe or do not go away: gas abdominal pain bloating change in the way things taste loss of hair feeling cold or having chills If you experience any of the following symptoms, or those listed in the IMPORTANT WARNING section, call your doctor immediately: hives rash itching difficulty breathing or swallowing swelling of the face, throat, tongue, lips, or eyes hoarseness chest pain or pressure swelling of the hands, feet, ankles, or lower legs fever infection nausea vomiting diarrhea extreme tiredness lack of energy loss of appetite pain in the upper right part of the stomach yellowing of the skin or eyes flu-like symptoms You should know that warfarin may cause necrosis or gangrene ( of skin or other body tissues).Call your doctor immediately if you notice a purplish or darkened color to your skin, skin changes,ulcers, or an unusual problem in any area of your skin or body, or if you have a severe pain that occurs suddenly, or color or temperature change in any area of your body. Call your doctor immediately if your toes become painful or become purple or dark in color. You may need medical care right away to prevent amputation (removal) of your affected body part. Warfarin may cause other side effects. Call your doctor if you have any unusual problems while taking this medication. What should I know about STORAGE and DISPOSAL of this medication? Keep this medication in the container it came in, tightly closed, and out of reach of children. Store it at room temperature and away from excess heat, moisture (not in the bathroom), and light. Unneeded medications should be disposed of in special ways to ensure that pets, children, and otherpeople cannot consume them. However, you should not flush this medication down the toilet. Instead,the best way to dispose of your medication is through a medicine take-back program. Talk to your pharmacist or contact your local garbage/recycling department to learn about take-back programs in your community. See the FDA's Safe Disposal of Medicines website (http://goo.gl/c4Rm4p) for more information if you do not have access to a take- back program. It is important to keep all medication out of sight and reach of children as many containers (such as weekly pill minders and those for eye drops, creams, patches, and inhalers) are not child-resistant and young children can open them easily. To protect young children from poisoning, always lock safety caps and immediately place the medication in a safe location - one that is up and away and out of their sight and reach. http://www.upandaway.org What should I do in case of OVERDOSE? In case of overdose, call the poison control helpline at . Information is also available online at https://www.poisonhelp.org/help. If the victim has collapsed, had a seizure, has trouble breathing, or can't be awakened, immediately call emergency services at 161. Symptoms of overdose may include the following: bloody or red, or tarry bowel movements spitting or coughing up blood heavy bleeding with your menstrual period pink, red, or dark brown urine coughing up or vomiting material that looks like coffee grounds small, flat, round red spots under the skin unusual bruising or bleeding continued oozing or bleeding from minor cuts What OTHER INFORMATION should I know? Carry an identification card or wear a bracelet stating that you take warfarin. Ask your pharmacistor doctor how to obtain this card or bracelet. List your name, medical problems, medications and dosages, and doctor's name and telephone number on the card. Tell all your healthcare providers that you take warfarin. Do not let anyone else take your medication. Ask your pharmacist any questions you have about refilling your prescription. It is important for you to keep a written list of all of the prescription and nonprescription (botp-yhr-ehocpis) medicines you are taking, as well as any products such as vitamins, minerals, or otherdietary supplements. You should bring this list with you each time you visit a doctor or if you areadmitted to a hospital. It is also important information to carry with you in case of emergencies. This report on medications is for your information only, and is not considered individual patient advice. Because of the changing nature of drug information, please consult your physician or pharmacist about specific clinical use. The [employer] represents that the information provided hereunder was formulated with a reasonable standard of care, and in conformity with professional standards in the field. The [employer] makes no representations or warranties, express or implied, including, but not limited to, any implied warranty of merchantability and/or fitness for a particular purpose, with respect to such information and specifically disclaims all such warranties. Users are advised that decisions regarding drug therapy are complex medical decisions requiring the independent, informed decision of an appropriate health youth care professional, and the information is provided for informational purposes only. The entire monograph for a drug should be reviewed for a thorough understanding of the drug's actions, uses and side effects. The [employer] does not endorse or recommend the use of any drug.The information is not a substitute for medical care. [facility] Patient Medication Information?. Copyright, 2023. [employer], [address], [address], [place], [place]. All Rights Reserved. Duplication for commercial use must be authorized by [facility]. Selected Revisions: October 26, 2016. [facility] Patient Medication Information?. Copyright, 2023 * Medical Necessity - Leonarda Francois RN - 01/09/2024 2:05 PM EDT AdmissionCare Guideline: Systemic / Infectious Condition, Inpatient Based on the indications selected for the patient, the bed status of Inpatient was determined to beMET The following indications were selected as present at the time of evaluation of the patient: - Clinical Indications for Admission to Inpatient Care - Hospital admission is needed for appropriate care of the patient because of 1 or more of the following: - Severe electrolyte abnormalities requiring inpatient care, as indicated by ALL of the following: - Electrolyte abnormality is not at acceptable patient baseline (eg, treatment effect). - Severe abnormality, as indicated by 1 or more of the following: - Magnesium less than 1.5 mg/dL (0.62 mmol/L) with severe finding requiring inpatient management (eg, Altered mental status, seizures, arrhythmia, cardiac conduction disturbance) Additional Information: Mag 1.2 near syncope AdmissionCare documentation entered by: Leonarda Francois [facility] [employer], 28th edition, Copyright 2023 [facility] [employer] [facility] All Rights Reserved. [id number]:05:28-04:00 Solely for purpose of utilization review and payment; not a diagnostic tool * ED Hi Low Truck Driver Note - Jada Robertson RN - 01/09/2024 12:28 PM EDT Attempted to assist pt with ambulation. Pt was no able to sit up in bed without 2 ppl assist. Pt istoo weak and stiff to sit up in bed by himself. Per pt he uses a walker at home. * ED Hi Low Truck Driver Note - Yola Soto RN - 01/09/2024 11:22 AM EDT Attempted urine cath a second time with an indwelling 16 F coude cath. There was still resistance but was able to pass cath through into the bladder. Jordana yellow urine draining wihtout complicationsat this time. Dr. Jenkins made aware * ED Hi Low Truck Driver Note - Yola Soto RN - 01/09/2024 11:04 AM EDT Attempted to straight cath patient and hit resistance, unable to obtain urine specimen. reports that he is suppose to go for a procedure with urology in February for his prostate but doesn't feellike he can wait until then due to recurrent UTI's/weakness. Bladder scanned patient for 250 ml. * ED Hi Low Truck Driver Note - Yola Soto RN - 01/09/2024 10:17 AM EDT Pt attempted to give urine sample in urine. Unable to go at this time. * ED Hi Low Truck Driver Note - Natasha Gaines RN - 01/09/2024 8:42 AM EDT 0842: pt arrives to ED with complaints of generalized weakness and dysuria that has been ongoing for a few days. reports pt has had 5 UTIs since October. Took last dose of antibiotics last night. Pt also reports some diarrhea. Denies CP, SOB, fever/chills, abdominal pain, N/V. Pt Aox4. Heart sounds normal. Lung sounds diminished bilaterally, respirations equal and unlabored. Abd soft, non-distended, non-tender. Bowel sounds present. Distal pulses intact. +movement and sensation, strengths decreased in all extremities. Provider in room at this time. documented in this encounter Plan of Treatment Upcoming Encounters Date Type Department Care Team (Late st Contact Info) Description 01/15/2024 5:50 PM EDT Anticoagulation Pharmacy, [place] [address] [id number] Pharmacist2, [facility] [place] [address] [id number] 01/25/2024 3:30 PM EDT Office Visit [facility] [address] [place] [address] Laney Hogue MD [address] [facility] [place] [address] 02/21/2024 10:30 AM EDT Office Visit Urology [place] [address] [place] [address] Nikolai Chaudhari MD [address] [place] [address] 02/25/2024 11:20 AM EDT Office Visit [facility] [address] [phone] Kaiser Amanda MD [address] [facility] [place] [address] 03/05/2024 1:00 PM EDT Appointment Cardiac Studies, [facility] [address] [address] 03/26/2024 8:00 AM EST Hospital Encounter OR GL, Operating Room, [facility] - 4th [facility] [address] [facility] [phone] John Gordillo MD [address] [address] 03/26/2024 8:00 AM EST - 03/26/2024 8:46 AM EST Surgery OR GL, Operating Room, [facility] - 4th Floor [address] [facility] [place] [phone] John Gordillo MD [address] [address] COLONOSCOPY FLEXIBLE PROXIMAL DIAGNOSTIC 04/01/2024 12:30 PM EST Office Visit Gastroenterology, [facility] [address] [place] [phone] Thelma Jamil PA-C [address] [facility] [place] [address] 06/12/2024 2:00 PM EST Office Visit Cardiology, [place] [address] [facility] [address] [address] Clarissa Rapp PA-C [address] [place] [address] 10/21/2024 9:15 AM EDT Appointment Radiology, [facility] [address] [facility] [place] [place] [address] 10/29/2024 9:45 AM EDT Office Visit Urology [facility] [address] [facility] [address] [address] Bert Boogie Jr., MD [address] [id number] Scheduled Procedures Name Priority Associated Diagnoses Date/Ti [...] 024, 01/10/2023, 07/07/2021, Additional history exists GFR 01/12/2025 01/13/2024, 12/14, 01/10/2024, Additional history exists DXA Scan 01/25/2025 01/25/2023, 090 01/2021, 12/10/2018 Colonoscopy 03/16/2025 03/16/2022, 11/0 07/2021, 08/06/2009 Colorectal Cancer Screening 03/16/2025 Lipid Panel 02/27/2028 02/26/2023, 12/0 08/2021, 05/26/2021, Additional history exists DTap/Tdap Vaccines (3 - Td or Tdap) 12/10/2029 12/11/2019, 06/03/2014 Pneumococcal Vaccine: 65+ Years Completed 05/22/2017, 02/23/2016, 09/25/2011 Zoster Vaccines Completed 03/26/2019, 12/12, 09/27/2011 VITAMIN D LEVEL ONCE IN A LIFETIME-USE SMARTSET# [id number] Completed 07/26/2023, 02/26/2023, 01/23/2023, Additional history exists [...] this encounter Medical Devices Implanted Type Area Director Power Device Identifier Shelf Expiration Date Model / Serial / Lot Cement Bone Simplex Hv & G - [id number] Implanted:Qty: 2 on 09/02/2020 by Gianni Hubbard MD at OR [facility] Right: Hip LUDY : ORTHOPAEDICS 08/11/2021 [id number] / / [id number] Spacer Ring Aclde Distal Lg 14 - [id number] Implanted:Qty: 1 on 09/02/2020 by Gianni Hubbard MD at OR [facility] Right: Hip LUDY : ORTHOPAEDICS 11/25/2024 [id number] / / Accolade C Cs 127 6 37/158 - [id number] Implanted:Qty: 1 on 09/02/2020 by Gianni Hubbard MD at OR [facility] Right: Hip LUDY : ORTHOPAEDICS 05/29/2023 [id number] / / [id number] Hip Cocr Lfit Head V40 28/+4 - [id number] Implanted:Qty: 1 on 09/02/2020 by Gianni Hubbard MD at OR [facility] Right: Hip LUDY : ORTHOPAEDICS 11/15/2024 [id number] / / [id number] Hip Head Bipol Uhr Uni 28x52 - [id number] Implanted:Qty: 1 on 09/02/2020 by Gianni Hubbard MD at OR [facility] Right: Hip LUDY : ORTHOPAEDICS 11/25/2024 [id number] / / [id number] Lens Intraoc 17.5 - [id number] - [id number] Implanted:Qty: 1 on 03/23/2022 by Rad Morgan MD at OR [facility] Left: Eye BAUSCH & LOMB 10/11/2026 [id number] / [id number] / [id number] Lens Intraoc 18.0 - [id number] - [id number] Implanted:Qty: 1 on 03/30/2022 by Rad Morgan MD at OR [facility] Right: Eye BAUSCH & LOMB 01/11/2027 [id number] / [id number] / [id number] documented as of this encounter Procedures Procedure Name Priority Date/Time Associated Diagnosis Comments GLUCOSE METER, POINT OF CARE MARVA 01/14/2024 11:21 AM EDT GLUCOSE METER, POINT OF CARE MARVA 01/14/2024 7:47 AM EDT PT INR Routine 01/14/2024 5:14 AM EDT EXTRA GREEN TOP WITH GEL Routine 01/14/2024 5:10 AM EDT EXTRA LAVENDER TOP Routine 01/14/2024 5: 10 AM EDT EXTRA TUBES Routine 01/14/2024 5:10 AM EDT GLUCOSE METER, POINT OF CARE MARVA 01/13/2024 9:29 PM EDT GLUCOSE METER, POINT OF CARE MARVA 01/13/2024 4:35 PM EDT GLUCOSE METER, POINT OF CARE MARVA 01/13/2024 11:38 AM EDT GLUCOSE METER, POINT OF CARE MARVA 01/13/2024 7:36 AM EDT BASIC METABOLIC PANEL Routine 01/13/2024 4:01 AM EDT PT INR Routine 01/13/2024 4:01 AM EDT CBC Routine 01/13/2024 4:01 AM EDT GLUCOSE METER, POINT OF CARE MARVA 01/12/2024 9:49 PM EDT GLUCOSE METER, POINT OF CARE MARVA 01/12/2024 4:40 PM EDT GLUCOSE METER, POINT OF CARE MARVA 01/12/2024 11:09 AM EDT GLUCOSE METER, POINT OF CARE MARVA 01/12/2024 7:46 AM EDT PT INR Routine 01/12/2024 4:33 AM EDT GLUCOSE METER, POINT OF CARE MARVA 01/11/2024 9:53 PM EDT GLUCOSE METER, POINT OF CARE MARVA 01/11/2024 4:52 PM EDT GLUCOSE METER, POINT OF CARE MARVA 01/11/2024 11:27 AM EDT GLUCOSE METER, POINT OF CARE MARVA 01/11/2024 8:50 AM EDT PT INR Routine 01/11/2024 5:18 AM EDT HEPATIC FUNCTION PANEL Routine 5:17 AM EDT BASIC METABOLIC PANEL Routine 01/11/2024 5:17 AM EDT CBC Routine 01/11/2024 5:17 AM EDT GLUCOSE METER, POINT OF CARE MARVA 01/10/2024 8:57 PM EDT GLUCOSE METER, POINT OF CARE MARVA 01/10/2024 4:19 PM EDT GLUCOSE METER, POINT OF CARE MARVA 01/10/2024 11:37 AM EDT GLUCOSE METER, POINT OF CARE MARVA 01/10/2024 8:21 AM EDT COMPREHENSIVE METABOLIC PANEL Routine 01/10/2024 5:02 AM EDT PT INR Routine 01/10/2024 5:02 AM EDT PHOSPHORUS Routine 01/10/2024 5:02 AM EDT CBC Routine 01/10/2024 5:02 AM EDT MAGNESIUM Routine 01/10/2024 5:[address] ABD/PELVIS W IV AND W ORAL CONTRAST Routine 01/09/2024 10:39 PM EDT GLUCOSE METER, POINT OF CARE MARVA 01/09/2024 9:42 PM EDT TROPONIN T, HIGH SENSITIVITY Routine 01/09/2024 9:37 PM EDT GLUCOSE METER, POINT OF CARE MARVA 01/09/2024 4:33 PM EDT TROPONIN T, HIGH SENSITIVITY Routine 01/09/2024 3:40 PM EDT TROPONIN T, HIGH SENSITIVITY Routine 01/09/2024 11:21 AM EDT URINALYSIS, REFLEX TO CULTURE STAT 01/09/2024 11:18 AM EDT URINALYSIS, REFLEX TO CULTURE (CUP ONLY) STAT 01/09/2024 11:18 AM EDT URINALYSIS, REFLEX TO CULTURE (NOT FOR NEUTROPENIC PATIENTS) STAT 01/09/2024 11:18 AM EDT CULTURE, URINE, QUANTITATIVE STAT 01/09/2024 11:18 AM EDT EXTRA RECINOS TOP Routine 01/09/2024 9:01 AM EDT DIFFERENTIAL, AUTOMATED STAT 01/09/2024 9:01 AM EDT TROPONIN T, HIGH SENSITIVITY Routine 01/09/2024 9:01 AM EDT COMPREHENSIVE METABOLIC PANEL STAT 01/09/2024 9:01 AM EDT CBC STAT 01/09/2024 9:01 AM EDT PT INR STAT 01/09/2024 9:01 AM EDT CBC STAT 01/09/2024 9:01 AM EDT MAGNESIUM STAT 01/09/2024 9:01 AM EDT XR CHEST 1 VIEW STAT 01/09/2024 8:52 AM EDT Dysuria Near syncope documented in this encounter Results * (ABNORMAL) GLUCOSE METER, POINT OF CARE (01/14/2024 11:21 AM EDT) Glucose Meter 259(H) 70 - 120 mg/dL 01/14/2024 11:32 AM EDT [facility] Blood Whole blood specimen / Unknown 01/14/2024 11:21 AM EDT 01/14/2024 11:32 AM EDT Liam Barajas MD LAB POINT OF CARE TE ST DOCKED DEVICE UNSOLICITED RESULTS [facility] [address] [place] [address] * (ABNORMAL) GLUCOSE METER, POINT OF CARE (01/14/2024 7:47 AM EDT) Glucose Meter 138(H) 70 - 120 mg/dL 01/14/2024 7:52 AM EDT [facility] Blood Whole blood specimen / Unknown 01/14/2024 7:47 AM EDT 01/14/2024 7:52 AM EDT Liam Barajas MD LAB POINT OF CARE TE ST DOCKED DEVICE UNSOLICITED RESULTS Performing Organization Address [facility] Co de Phone Number [facility] [address] [place] [address] * (ABNORMAL) PT INR (01/14/2024 5:14 AM EDT) [facility] Prothrombin Time 20.9(H) 11.6 - 15.2 seconds 01/14/2024 5:49 AM EDT LABORATORY GL INR 1.8(H) 0.8 - 1.2 01/14/2024 5:49 AM EDT LAB[facility]ATORY [facility] Blood Venous blood specimen / Unknown Venipuncture / Unknown 01/14/2024 5:14 AM EDT 01/14/2024 5:32 AM EDT Narrative LABORATORY [facility] - 01/14/2024 5:49 AM EDT Warfarin Therapy INR: 2.0-3.0 conventional anticoagulation INR: 2.5-3.5 high intensity anticoagulation Segun Brito MD LAB BLOOD ORD ERABLES Performing Organization Address [facility] Co de Phone Number LABORATORY [address] [address] * EXTRA GREEN TOP WITH GEL (01/14/2024 5:10 AM EDT) Blood Venous blood specimen / Unknown Venipuncture / Unknown 01/14/2024 5:10 AM EDT 01/14/2024 5:33 AM EDT Liam Barajas MD LAB BLOOD ORDERABLES Performing Organization Address [facility] Co de Phone Number LABORATORY [address] [address] * EXTRA LAVENDER TOP (01/14/2024 5:10 AM EDT) Blood Venous blood specimen / Unknown Venipuncture / Unknown 01/14/2024 5:10 AM EDT 01/14/2024 5:32 AM EDT Liam Barajas MD LAB BLOOD ORDERABLES Performing Organization Address City/[facility]/ZIP Co de Phone Number LABORATORY [address] [phone] * (ABNORMAL) GLUCOSE METER, POINT OF CARE (01/13/2024 9:29 PM EDT) Glucose Meter 250(H) 70 - 120 mg/dL 01/13/2024 9:38 PM EDT [facility] Blood Whole blood specimen / Unknown 01/13/2024 9:29 PM EDT 01/13/2024 9:38 PM EDT Liam Barajas MD LAB POINT OF CARE TE ST DOCKED DEVICE UNSOLICITED RESULTS Performing Organization Address [facility] de Phone Number [facility] [address] [place] [phone] * (ABNORMAL) GLUCOSE METER, POINT OF CARE (01/13/2024 4:35 PM EDT) Glucose Meter 241(H) 70 - 120 mg/dL 01/13/2024 4:42 PM EDT [facility] Blood Whole blood specimen / Unknown 01/13/2024 4:35 PM EDT 01/13/2024 4:42 PM EDT Liam Barajas MD LAB POINT OF CARE TE ST DOCKED DEVICE UNSOLICITED RESULTS Performing Organization Address City/[facility] Co de Phone Number [facility] [address] [place] [phone] * (ABNORMAL) GLUCOSE METER, POINT OF CARE (01/13/2024 11:38 AM EDT) Glucose Meter 206(H) 70 - 120 mg/dL 01/13/2024 11:58 AM EDT [facility] Blood Whole blood specimen / Unknown 01/13/2024 11:38 AM EDT 01/13/2024 11:58 AM EDT Liam Barajas MD LAB POINT OF CARE TE ST DOCKED DEVICE UNSOLICITED RESULTS Performing Organization Address City/[facility]/ZIP Co de Phone Number [facility] [address] [place] [phone] * (ABNORMAL) GLUCOSE METER, POINT OF CARE (01/13/2024 7:36 AM EDT) Glucose Meter 122(H) 70 - 120 mg/dL 01/13/2024 8:02 AM EDT [facility] Blood Whole blood specimen / Unknown 01/13/2024 7:36 AM EDT 01/13/2024 8:02 AM EDT Liam Barajas MD LAB POINT OF CARE TE ST DOCKED DEVICE UNSOLICITED RESULTS Performing Organization Address [facility] de Phone Number [facility] [address] [place] [address] * (ABNORMAL) PT INR (01/13/2024 4:01 AM EDT) Prothrombin Time 21.9(H) 11.6 - 15.2 seconds 01/13/2024 5:01 AM EDT [facility]ATORY [facility] INR 1.9(H) 0.8 - 1.2 01/13/2024 5:01 AM EDT [facility]ATORY [facility] Blood Venous blood specimen / Unknown Venipuncture / Unknown 01/13/2024 4:01 AM EDT 01/13/2024 4:42 AM EDT Narrative LABORATORY H - 01/13/2024 5:01 AM EDT Warfarin Therapy INR: 2.0-3.0 conventional anticoagulation INR: 2.5-3.5 high intensity anticoagulation Segun Brito MD LAB BLOOD ORD ERABLES [facility] [address] [place] [address] * (ABNORMAL) BASIC METABOLIC PANEL (01/13/2024 4:01 AM EDT) BUN 13 6 - 20 mg/dL 01/13/2024 5:34 AM EDT LAB[facility]ATORY [facility] Creatinine 0.9 0.6 - 1.2 mg/dL 01/13/2024 5:34 AM EDT LAB[facility]ATORY [facility] Estimated Glomerular Filtration Rate 86 >=60 mL/min 01/13/2024 5:34 AM EDT LAB[facility]ATORY [facility] Comment:eGFR is calculated b ased on the CKD-EPI 2020 equation. Sodium 141 135 - 146 mmol/L 01/13/2024 5:34 AM EDT LAB[facility]ATORY [facility] Potassium 4.2 3.5 - 5.1 mmol/L 01/13/2024 5:34 AM EDT LAB[facility]ATORY [facility] Chloride 108(H) 98 - 107 mmol/L 01/13/2024 5:34 AM EDT LAB[facility]ATORY [facility] CO2 25 22 - 32 mmol/L 01/13/2024 5:34 AM EDT LAB[facility]ATORY [facility] Anion Gap 8 7 - 15 mmol/L 01/13/2024 5:34 AM EDT LAB[facility]ATORY [facility] Glucose 106 70 - 120 mg/dL 01/13/2024 5:34 AM EDT LAB[facility]ATORY [facility] Calcium 8.2(L) 8.4 - 10.2 mg/dL 01/13/2024 5:34 AM EDT [facility]ORY [facility] Blood Venous blood specimen / Unknown Venipuncture / Unknown 01/13/2024 4:01 AM EDT 01/13/2024 4:42 AM EDT Liam Barajas MD LAB BLOOD ORDERABLES LABORATORY [address] [address] * (ABNORMAL) CBC (01/13/2024 4:01 AM EDT) WBC 5.66 4.00 - 10.80 K/uL 01/13/2024 4:50 AM EDT LABORATORY [facility] RBC 3.47 4.50 - 5.25 M/uL 01/13/2024 4:50 AM EDT LAB[facility]ATORY [facility] HGB 10.3(L) 14.0 - 16.8 g/dL 01/13/2024 4:50 AM EDT LABORATORY [facility] HCT 32.0(L) 40.0 - 48.4 % 01/13/2024 4:50 AM EDT [facility]ORY [facility] MCV 92.2 82.0 - 99.5 fL 01/13/2024 4:50 AM EDT LAB[facility]ORY [facility] MCH 29.7 27.0 - 34.0 pg 01/13/2024 4:50 AM EDT [facility] MCHC 32.2 32.0 - 36.0 g/dL 01/13/2024 4:50 AM EDT [facility] RDW 15.6 11.5 - 15.5 % 01/13/2024 4:50 AM EDT LAB[facility]ATORY [facility] PLT 166 140 - 400 K/uL 01/13/2024 4:50 AM EDT [facility] MPV 8.9 6.6 - 11.1 fL 01/13/2024 4:50 AM EDT LAB[facility] nRBCs 0 <=0 /100 WBCs 01/13/2024 4:50 AM EDT [facility] Blood Venous blood specimen / Unknown Venipuncture / Unknown 01/13/2024 4:01 AM EDT 01/13/2024 4:42 AM EDT Liam Barajas MD LAB BLOOD ORDERABLES Performing Organization Address City/[facility]/ZIP Co de Phone Number LABORATORY [address] [address] * (ABNORMAL) GLUCOSE METER, POINT OF CARE (01/12/2024 9:49 PM EDT) [facility] Signature Glucose Meter 140(H) 70 - 120 mg/dL 01/12/2024 9:58 PM EDT [facility] Blood Whole blood specimen / Unknown 01/12/2024 9:49 PM EDT 01/12/2024 9:58 PM EDT Liam Barajas MD LAB POINT OF CARE TE ST DOCKED DEVICE UNSOLICITED RESULTS Performing Organization Address City/[facility]/ZIP Co de Phone Number [facility] [address] [place] [phone] * (ABNORMAL) GLUCOSE METER, POINT OF CARE (01/12/2024 4:40 PM EDT) Glucose Meter 218(H) 70 - 120 mg/dL 01/12/2024 4:57 PM EDT [facility] Blood Whole blood specimen / Unknown 01/12/2024 4:40 PM EDT 01/12/2024 4:57 PM EDT Liam Barajas MD LAB POINT OF CARE TE ST DOCKED DEVICE UNSOLICITED RESULTS Performing Organization Address City/[facility]/ZIP Co de Phone Number [facility] [address] [place] [address] * (ABNORMAL) GLUCOSE METER, POINT OF CARE (01/12/2024 11:09 AM EDT) Glucose Meter 199(H) 70 - 120 mg/dL 01/12/2024 11:21 AM EDT [facility] Blood Whole blood specimen / Unknown 01/12/2024 11:09 AM EDT 01/12/2024 11:21 AM EDT Liam Barajas MD LAB POINT OF CARE TE ST DOCKED DEVICE UNSOLICITED RESULTS Performing Organization Address [facility] Co de Phone Number [facility] [address] [place] [address] * GLUCOSE METER, POINT OF CARE (01/12/2024 7:46 AM EDT) Glucose Meter 113 70 - 120 mg/dL 01/12/2024 7:56 AM EDT [facility] Blood Whole blood specimen / Unknown 01/12/2024 7:46 AM EDT 01/12/2024 7:56 AM EDT Liam Barajas MD LAB POINT OF CARE TE ST DOCKED DEVICE UNSOLICITED RESULTS Performing Organization Address City/[facility] Co de Phone Number [facility] [address] [place] [address] * (ABNORMAL) PT INR (01/12/2024 4:33 AM EDT) Prothrombin Time 23.3(H) 11.6 - 15.2 seconds 01/12/2024 5:38 AM EDT [facility]ATORY [facility] INR 2.1(H) 0.8 - 1.2 01/12/2024 5:38 AM EDT [facility] Blood Venous blood specimen / Unknown Venipuncture / Unknown 01/12/2024 4:33 AM EDT 01/12/2024 5:04 AM EDT Narrative LABORATORY [facility] - 01/12/2024 5:38 AM EDT Warfarin Therapy INR: 2.0-3.0 conventional anticoagulation INR: 2.5-3.5 high intensity anticoagulation Segun Brito MD LAB BLOOD ORD ERABLES LABORATORY [address] [address] * (ABNORMAL) GLUCOSE METER, POINT OF CARE (01/11/2024 9:53 PM EDT) Glucose Meter 131(H) 70 - 120 mg/dL 01/11/2024 10:01 PM EDT [facility] Blood Whole blood specimen / Unknown 01/11/2024 9:53 PM EDT 01/11/2024 10:01 PM EDT Liam Barajas MD LAB POINT OF CARE TE ST DOCKED DEVICE UNSOLICITED RESULTS [facility] [address] [place] [address] * (ABNORMAL) GLUCOSE METER, POINT OF CARE (01/11/2024 4:52 PM EDT) Glucose Meter 172(H) 70 - 120 mg/dL 01/11/2024 4:58 PM EDT [facility] Blood Whole blood specimen / Unknown 01/11/2024 4:52 PM EDT 01/11/2024 4:58 PM EDT Liam Barajas MD LAB POINT OF CARE TE ST DOCKED DEVICE UNSOLICITED RESULTS Performing Organization Address [facility] de Phone Number [facility] [address] [place] [address] * (ABNORMAL) GLUCOSE METER, POINT OF CARE (01/11/2024 11:27 AM EDT) Glucose Meter 177(H) 70 - 120 mg/dL 01/11/2024 11:58 AM EDT [facility] Blood Whole blood specimen / Unknown 01/11/2024 11:27 AM EDT 01/11/2024 11:58 AM EDT Liam Barajas MD LAB POINT OF CARE TE ST DOCKED DEVICE UNSOLICITED RESULTS Performing Organization Address [facility] de Phone Number [facility] [address] [place] [address] * (ABNORMAL) GLUCOSE METER, POINT OF CARE (01/11/2024 8:50 AM EDT) Glucose Meter 121(H) 70 - 120 mg/dL 01/11/2024 8:56 AM EDT [facility] Blood Whole blood specimen / Unknown 01/11/2024 8:50 AM EDT 01/11/2024 8:56 AM EDT Liam Barajas MD LAB POINT OF CARE TE ST DOCKED DEVICE UNSOLICITED RESULTS Performing Organization Address [facility] de Phone Number [facility] [address] [place] [address] * (ABNORMAL) PT INR (01/11/2024 5:18 AM EDT) Prothrombin Time 28.8(H) 11.6 - 15.2 seconds 01/11/2024 6:02 AM EDT [facility] INR 2.7(H) 0.8 - 1.2 01/11/2024 6:02 AM EDT [facility] Blood Venous blood specimen / Unknown Venipuncture / Unknown 01/11/2024 5:18 AM EDT 01/11/2024 5:41 AM EDT Narrative [facility]ATORY [facility] - 01/11/2024 6:02 AM EDT Warfarin Therapy INR: 2.0-3.0 conventional anticoagulation INR: 2.5-3.5 high intensity anticoagulation Segun Brito MD LAB BLOOD ORD ERABLES Performing Organization Address [facility] Co de Phone Number LABORATORY [address] [address] * (ABNORMAL) HEPATIC FUNCTION PANEL (01/11/2024 5:17 AM EDT) Albumin 3.1(L) 3.8 - 5.0 g/dL 01/11/2024 6:05 AM EDT [facility]ORY [facility] AST 20 10 - 50 U/L 01/11/2024 6:05 AM EDT [facility] Alkaline Phosphatase 44 35 - 130 U/L 01/11/2024 6:05 AM EDT [facility] ALT 17 10 - 50 U/L 01/11/2024 6:05 AM EDT [facility] Bilirubin, Total 0.4 <=1.2 mg/dL 01/11/2024 6:05 AM EDT [facility] Bilirubin, Direct <0.2 0.0 - 0.3 mg/dL 01/11/2024 6:05 AM EDT [facility] Protein 5.5(L) 6.0 - 8.3 g/dL 01/11/2024 6:05 AM EDT [facility] Blood Venous blood specimen / Unknown Venipuncture / Unknown 01/11/2024 5:17 AM EDT 01/11/2024 5:41 AM EDT Liam Barajas MD LAB BLOOD ORDERABLES Performing Organization Address [facility] Co de Phone Number LABORATORY [address] [address] * (ABNORMAL) BASIC METABOLIC PANEL (01/11/2024 5:17 AM EDT) BUN 18 6 - 20 mg/dL 01/11/2024 6:05 AM EDT [facility] Creatinine 1.0 0.6 - 1.2 mg/dL 01/11/2024 6:05 AM EDT [facility] Estimated Glomerular Filtration Rate 81 >=60 mL/min 01/11/2024 6:05 AM EDT [facility] Comment:eGFR is calculated b ased on the CKD-EPI 2020 equation. Sodium 140 135 - 146 mmol/L 01/11/2024 6:05 AM EDT LAB[facility] Potassium 3.9 3.5 - 5.1 mmol/L 01/11/2024 6:05 AM EDT [facility] Chloride 105 98 - 107 mmol/L 01/11/2024 6:05 AM EDT [facility] CO2 25 22 - 32 mmol/L 01/11/2024 6:05 AM EDT [facility] Anion Gap 10 7 - 15 mmol/L 01/11/2024 6:05 AM EDT [facility] Glucose 123(H) 70 - 120 mg/dL 01/11/2024 6:05 AM EDT [facility] Calcium 8.2(L) 8.4 - 10.2 mg/dL 01/11/2024 6:05 AM EDT [facility] Blood Venous blood specimen / Unknown Venipuncture / Unknown 01/11/2024 5:17 AM EDT 01/11/2024 5:41 AM EDT Liam Barajas MD LAB BLOOD ORDERABLES LABORATORY [address] [address] * (ABNORMAL) CBC (01/11/2024 5:17 AM EDT) WBC 6.63 4.00 - 10.80 K/uL 01/11/2024 5:48 AM EDT [facility] RBC 3.75 4.50 - 5.25 M/uL 01/11/2024 5:48 AM EDT [facility] HGB 11.2(L) 14.0 - 16.8 g/dL 01/11/2024 5:48 AM EDT [facility] HCT 34.6(L) 40.0 - 48.4 % 01/11/2024 5:48 AM EDT [facility] MCV 92.3 82.0 - 99.5 fL 01/11/2024 5:48 AM EDT LAB[facility]ATORY [facility] MCH 29.9 27.0 - 34.0 pg 01/11/2024 5:48 AM EDT LAB[facility]ORY [facility] MCHC 32.4 32.0 - 36.0 g/dL 01/11/2024 5:48 AM EDT [facility] RDW 15.1 11.5 - 15.5 % 01/11/2024 5:48 AM EDT LAB[facility]ATORY [facility] PLT 178 140 - 400 K/uL 01/11/2024 5:48 AM EDT LAB[facility]ORY [facility] MPV 9.2 6.6 - 11.1 fL 01/11/2024 5:48 AM EDT LAB[facility] nRBCs 0 <=0 /100 WBCs 01/11/2024 5:48 AM EDT [facility] Blood Venous blood specimen / Unknown Venipuncture / Unknown 01/11/2024 5:17 AM EDT 01/11/2024 5:41 AM EDT Liam Barajas MD LAB BLOOD ORDERABLES LABORATORY [address] [address] * (ABNORMAL) GLUCOSE METER, POINT OF CARE (01/10/2024 8:57 PM EDT) Glucose Meter 155(H) 70 - 120 mg/dL 01/10/2024 9:55 PM EDT [facility] Blood Whole blood specimen / Unknown 01/10/2024 8:57 PM EDT 01/10/2024 9:55 PM EDT Liam Barajas MD LAB POINT OF CARE TE ST DOCKED DEVICE UNSOLICITED RESULTS Performing Organization Address [facility]/ZIP Co de Phone Number [facility] [address] [place] [phone] * (ABNORMAL) GLUCOSE METER, POINT OF CARE (01/10/2024 4:19 PM EDT) Glucose Meter 185(H) 70 - 120 mg/dL 01/10/2024 4:26 PM EDT [facility] Blood Whole blood specimen / Unknown 01/10/2024 4:19 PM EDT 01/10/2024 4:26 PM EDT Liam Barajas MD LAB POINT OF CARE TE ST DOCKED DEVICE UNSOLICITED RESULTS Performing Organization Address City/[facility]/ZIP Co de Phone Number [facility] [address] [place] [address] * (ABNORMAL) GLUCOSE METER, POINT OF CARE (01/10/2024 11:37 AM EDT) Glucose Meter 142(H) 70 - 120 mg/dL 01/10/2024 12:43 PM EDT [facility] Blood Whole blood specimen / Unknown 01/10/2024 11:37 AM EDT 01/10/2024 12:43 PM EDT Liam Barajas MD LAB POINT OF CARE TE ST DOCKED DEVICE UNSOLICITED RESULTS Performing Organization Address [facility] Co de Phone Number [facility] [address] [place] [address] * GLUCOSE METER, POINT OF CARE (01/10/2024 8:21 AM EDT) Glucose Meter 87 70 - 120 mg/dL 01/10/2024 9:17 AM EDT [facility] Blood Whole blood specimen / Unknown 01/10/2024 8:21 AM EDT 01/10/2024 9:16 AM EDT Liam Barajas MD LAB POINT OF CARE TE ST DOCKED DEVICE UNSOLICITED RESULTS Performing Organization Address City/[facility] Co de Phone Number [facility] [address] [place] [address] * (ABNORMAL) PT INR (01/10/2024 5:02 AM EDT) Prothrombin Time 33.8(H) 11.6 - 15.2 seconds 01/10/2024 5:34 AM EDT LAB[facility]ORY [facility] INR 3.3(H) 0.8 - 1.2 01/10/2024 5:34 AM EDT [facility] Blood Venous blood specimen / Unknown Venipuncture / Unknown 01/10/2024 5:02 AM EDT 01/10/2024 5:09 AM EDT Narrative LAB[facility]ATORY [facility] - 01/10/2024 5:34 AM EDT Warfarin Therapy INR: 2.0-3.0 conventional anticoagulation INR: 2.5-3.5 high intensity anticoagulation Segun Brito MD LAB BLOOD ORD ERABLES Performing Organization Address City/[facility] Co de Phone Number LABORATORY [address] [id number] * PHOSPHORUS (01/10/2024 5:02 AM EDT) Phosphorus 4.2 2.5 - 4.8 mg/dL 01/10/2024 5:35 AM EDT [facility] Blood Venous blood specimen / Unknown Venipuncture / Unknown 01/10/2024 5:02 AM EDT 01/10/2024 5:09 AM EDT [employer] LAB BLOOD ORDERABLES Performing Organization Address [facility] de Phone Number LABORATORY [address] [id number] * MAGNESIUM (01/10/2024 5:02 AM EDT) Magnesium 1.5 1.5 - 2.6 mg/dL 01/10/2024 5:35 AM EDT [facility] Blood Venous blood specimen / Unknown Venipuncture / Unknown 01/10/2024 5:02 AM EDT 01/10/2024 5:09 AM EDT [employer] LAB BLOOD ORDERABLES Performing Organization Address [facility] de Phone Number LABORATORY [address] [address] * (ABNORMAL) CBC (01/10/2024 5:02 AM EDT) WBC 7.11 4.00 - 10.80 K/uL 01/10/2024 5:15 AM EDT [facility] RBC 3.82 4.50 - 5.25 M/uL 01/10/2024 5:15 AM EDT [facility] HGB 11.2(L) 14.0 - 16.8 g/dL 01/10/2024 5:15 AM EDT [facility] HCT 34.9(L) 40.0 - 48.4 % 01/10/2024 5:15 AM EDT [facility] MCV 91.4 82.0 - 99.5 fL 01/10/2024 5:15 AM EDT LAB[facility] MCH 29.3 27.0 - 34.0 pg 01/10/2024 5:15 AM EDT [facility] MCHC 32.1 32.0 - 36.0 g/dL 01/10/2024 5:15 AM EDT [facility] RDW 15.1 11.5 - 15.5 % 01/10/2024 5:15 AM EDT [facility] PLT 190 140 - 400 K/uL 01/10/2024 5:15 AM EDT [facility] MPV 8.8 6.6 - 11.1 fL 01/10/2024 5:15 AM EDT [facility] nRBCs 0 <=0 /100 WBCs 01/10/2024 5:15 AM EDT [facility] Blood Venous blood specimen / Unknown Venipuncture / Unknown 01/10/2024 5:02 AM EDT 01/10/2024 5:08 AM EDT [facility] BLOOD ORDERABLES LABORATORY [address] [address] * (ABNORMAL) COMPREHENSIVE METABOLIC PANEL (01/10/2024 5:02 AM EDT) Pathologist [facility] BUN 15 6 - 20 mg/dL 01/10/2024 5:35 AM EDT [facility] Creatinine 0.9 0.6 - 1.2 mg/dL 01/10/2024 5:35 AM EDT [facility] Estimated Glomerular Filtration Rate 87 >=60 mL/min 01/10/2024 5:35 AM EDT [facility] Comment:eGFR is calculated b ased on the CKD-EPI 2020 equation. Sodium 139 135 - 146 mmol/L 01/10/2024 5:35 AM EDT [facility] Potassium 4.3 3.5 - 5.1 mmol/L 01/10/2024 5:35 AM EDT [facility] Chloride 104 98 - 107 mmol/L 01/10/2024 5:35 AM EDT [facility] CO2 25 22 - 32 mmol/L 01/10/2024 5:35 AM EDT [facility] Anion Gap 10 7 - 15 mmol/L 01/10/2024 5:35 AM EDT [facility] Glucose 91 70 - 120 mg/dL 01/10/2024 5:35 AM EDT [facility] Albumin 3.2(L) 3.8 - 5.0 g/dL 01/10/2024 5:35 AM EDT [facility] AST 32 10 - 50 U/L 01/10/2024 5:35 AM EDT [facility] Alkaline Phosphatase 46 35 - 130 U/L 01/10/2024 5:35 AM EDT [facility] Bilirubin, Total 0.5 <=1.2 mg/dL 01/10/2024 5:35 AM EDT [facility] Calcium 8.3(L) 8.4 - 10.2 mg/dL 01/10/2024 5:35 AM EDT [facility] Protein 5.7(L) 6.0 - 8.3 g/dL 01/10/2024 5:35 AM EDT [facility] ALT 21 10 - 50 U/L 01/10/2024 5:35 AM EDT [facility] Blood Venous blood specimen / Unknown Venipuncture / Unknown 01/10/2024 5:02 AM EDT 01/10/2024 5:09 AM EDT [facility] BLOOD ORDERABLES [facility] [address] [facility] [place] [address] * CT ABD/PELVIS W IV AND W ORAL CONTRAST (01/09/2024 10:39 PM EDT) Anatomical Region Laterality Modality Body, Abdomen, Pelvis Computed T omography 01/09/2024 10:2 5 PM EDT Impressions 01/09/2024 11:21 PM EDT IMPRESSION: 1. No acute inflammatory or obstructive process is identified 2. 1.3 cm hyperdense right renal lesion is stable but incompletely characterized. THIS DOCUMENT HAS BEEN ELECTRONICALLY SIGNED BY CHARLES SANDHU MD Narrative 01/09/2024 11:21 PM EDT PROCEDURE INFORMATION: Exam: CT Abdomen And Pelvis With Contrast Exam date and time: 01/09/2024 10:25 PM Age: 73 years old Clinical indication: Constipation; Additional info: Nausea, constipation TECHNIQUE: Imaging protocol: Computed tomography of the abdomen and pelvis with contrast. Radiation optimization: All CT scans at this facility use at least one of these dose optimization techniques: automated exposure control; mA and/or kV adjustment per patient size (includes targeted exams where dose is matched to clinical indication); or iterative reconstruction. Contrast material: ISOVUE 370; Contrast volume: 80 ml; Contrast route: INTRAVENOUS (IV); Other contrast: Oral, omni, 1000; COMPARISON: 1. CT ABD/PELVIS W IV CONTRAST - WO ORAL CONTRAST 11/07/2023 7:[address] ABD/PELVIS W IV CONTRAST - WO ORAL CONTRAST 09/09/2023 5:[address] ABD/PELVIS W IV CONTRAST - WO ORAL CONTRAST 09/04/2023 9:52 PM FINDINGS: Lungs: Scattered areas of bronchial wall thickening which are likely chronic inflammatory. A few areas of subpleural reticulation are noted, nonspecific. Liver: Normal. Gallbladder and biliary ducts: There is cholelithiasis within an otherwise normal gallbladder. Pancreas: There is fatty replacement of the pancreas. Spleen: Normal. Adrenal glands: The adrenal glands appear normal. Kidneys and ureters: There is nonspecific bilateral perinephric stranding. 1.3 cm hyperdense right renal lesion is stable but incompletely characterized. Nonobstructing left lower pole intrarenal calculus. Large nonobstructing calculus in the right renal collecting system is stable. Stomach and bowel: There are scattered colonic diverticula without evidence for active diverticulitis. Appendix: No evidence of appendicitis. Intraperitoneal space: Unremarkable. Vasculature: There is atherosclerotic disease of the visualized aorta and its major branch vessels. Lymph nodes: No lymphadenopathy. Urinary bladder: There is mild bladder wall thickening, possibly due to under distention and a nonspecific finding. There is a Chaparro catheter place within the urinary bladder. There is air within the urinary bladder, correlate with any recent instrumentation. Reproductive: Status post prostatectomy. Bones/joints: Status post right total hip arthroplasty with associated streak artifact which limits evaluation of the pelvis. There is diffuse degenerative disease of the visualized osseous structures. Soft tissues: There are postsurgical changes of the ventral abdominal wall. Procedure Note Charles Sandhu MD - 01/09/2024 PROCEDURE INFORMATION: Exam: CT Abdomen And Pelvis With Contrast Exam date and time: 01/09/2024 10:25 PM Age: 73 years old Clinical indication: Constipation; Additional info: Nausea, constipation TECHNIQUE: Imaging protocol: Computed tomography of the abdomen and pelvis withcontrast. Radiation optimization: All CT scans at this facility use at least one ofthese dose optimization techniques: automated exposure control; mA and/or kV adjustment per patient size (includes targeted exams where dose is matchedto clinical indication); or iterative reconstruction. Contrast material: ISOVUE 370; Contrast volume: 80 ml; Contrast route: INTRAVENOUS (IV); Other contrast: Oral, omni, 1000; COMPARISON: 1. CT ABD/PELVIS W IV CONTRAST - WO ORAL CONTRAST 11/07/2023 7:[address] ABD/PELVIS W IV CONTRAST - WO ORAL CONTRAST 09/09/2023 5:[address] ABD/PELVIS W IV CONTRAST - WO ORAL CONTRAST 09/04/2023 9:52 PM FINDINGS: Lungs: Scattered areas of bronchial wall thickening which are likelychronic inflammatory. A few areas of subpleural reticulation are noted,nonspecific. Liver: Normal. Gallbladder and biliary ducts: There is cholelithiasis within an otherwise normal gallbladder. Pancreas: There is fatty replacement of the pancreas. Spleen: Normal. Adrenal glands: The adrenal glands appear normal. Kidneys and ureters: There is nonspecific bilateral perinephric stranding.1.3 cm hyperdense right renal lesion is stable but incompletely characterized. Nonobstructing left lower pole intrarenal calculus. Large nonobstructing calculus in the right renal collecting system is stable. Stomach and bowel: There are scattered colonic diverticula withoutevidence for active diverticulitis. Appendix: No evidence of appendicitis. Intraperitoneal space: Unremarkable. Vasculature: There is atherosclerotic disease of the visualized aorta andits major branch vessels. Lymph nodes: No lymphadenopathy. Urinary bladder: There is mild bladder wall thickening, possibly due tounder distention and a nonspecific finding. There is a Chaparro catheter placewithin the urinary bladder. There is air within the urinary bladder, correlatewith any recent instrumentation. Reproductive: Status post prostatectomy. Bones/joints: Status post right total hip arthroplasty with associatedstreak artifact which limits evaluation of the pelvis. There is diffusedegenerative disease of the visualized osseous structures. Soft tissues: There are postsurgical changes of the ventral abdominalwall. IMPRESSION IMPRESSION: 1. No acute inflammatory or obstructive process is identified 2. 1.3 cm hyperdense right renal lesion is stable but incompletely characterized. THIS DOCUMENT HAS BEEN ELECTRONICALLY SIGNED BY CHARLES SANDHU MD Mary Lou SMITHNP RAD CT * GLUCOSE METER, POINT OF CARE (01/09/2024 9:42 PM EDT) Glucose Meter 119 70 - 120 mg/dL 01/09/2024 9:48 PM EDT [facility] Blood Whole blood specimen / Unknown 01/09/2024 9:42 PM EDT 01/09/2024 9:48 PM EDT Segun Brito MD LAB POINT OF CARE TEST DOCKED DEVICE UNSOLICITED RESULTS [facility] [address] [place] [address] * (ABNORMAL) TROPONIN T, HIGH SENSITIVITY (01/09/2024 9:37 PM EDT) Troponin T, High Sensitivity 32(H) <=22 ng/L 01/09/2024 10:13 PM EDT LABORATORY [facility] Blood Venous blood specimen / Unknown Venipuncture / Unknown 01/09/2024 9:37 PM EDT 01/09/2024 9:47 PM EDT Kinjal PALACIOS LAB BLOOD ORDERABLES Performing Organization Address [facility] Co de Phone Number LABORATORY [address] [address] * GLUCOSE METER, POINT OF CARE (01/09/2024 4:33 PM EDT) Glucose Meter 92 70 - 120 mg/dL 01/09/2024 5:01 PM EDT [facility] Blood Whole blood specimen / Unknown 01/09/2024 4:33 PM EDT 01/09/2024 5:01 PM EDT Segun Brito MD LAB POINT OF CARE TEST DOCKED DEVICE UNSOLICITED RESULTS Performing Organization Address [facility] de Phone Number [facility] [address] [place] [phone] * (ABNORMAL) TROPONIN T, HIGH SENSITIVITY (01/09/2024 3:40 PM EDT) Troponin T, High Sensitivity 32(H) <=22 ng/L 01/09/2024 4:05 PM EDT LABORATORY [facility] Blood Venous blood specimen / Unknown Venipuncture / Unknown 01/09/2024 3:40 PM EDT 01/09/2024 3:43 PM EDT Kinjal PALACIOS LAB BLOOD ORDERABLES Performing Organization Address City/[facility] Co de Phone Number LABORATORY [address] [address] * (ABNORMAL) TROPONIN T, HIGH SENSITIVITY (01/09/2024 11:21 AM EDT) Troponin T, High Sensitivity 35(H) <=22 ng/L 01/09/2024 12:38 PM EDT LABORATORY [facility] Blood Venous blood specimen / Unknown Venipuncture / Unknown 01/09/2024 11:21 AM EDT 01/09/2024 11:24 AM EDT [facility] LAB BLOOD ORDERABLE S LABORATORY [facility] [address] [place] [address] * CULTURE, URINE, QUANTITATIVE (01/09/2024 11:18 AM EDT) Culture Growth No significant growth 01/10/2024 12:50 PM EDT LABORATORY [facility] Urine Urine specimen obtained by clean catch procedure / Unknown Non-blood Collection / Unknown 01/09/2024 11:18 AM EDT 01/09/2024 11:25 AM EDT Robbie [facility] LAB MICRO - GENERAL ORDERABLES Performing Organization Address City/[facility]/ZIP Co de Phone Number LABORATORY [facility] [address] [place] [address] * (ABNORMAL) URINALYSIS, REFLEX TO CULTURE (01/09/2024 11:18 AM EDT) Color, Urine Yellow Light Yellow, Yellow, Dark Yellow 01/09/2024 11:51 AM EDT LABORATORY GL Clarity, Urine Clear Clear 01/09/2024 11:51 AM EDT LABORATORY GL Glucose, Urine Negative Negative mg/dL 01/09/2024 11:51 AM EDT LABORATORY GL Bilirubin, Urine Negative Negative 01/09/2024 11:51 AM EDT LABORATORY GL Ketone, Urine Negative Negative mg/dL 01/09/2024 11:51 AM EDT LABORATORY GL Specific [place], Urine 1.011 1.003 - 1.030 01/09/2024 11:51 AM EDT LABORATORY GL Blood, Urine Large(A) Negative 01/09/2024 11:51 AM EDT LABORATORY GL pH, Urine 6.0 5.0 - 7.5 Units 01/09/2024 11:51 AM EDT LABORATORY GL Protein, Urine Negative Negative mg/dL 01/09/2024 11:51 AM EDT LABORATORY GL Urobilinogen, Urine 0.2 0.2, 1.0 mg/dL 01/09/2024 11:51 AM EDT LABORATORY GL Nitrite, Urine Negative Negative 01/09/2024 11:51 AM EDT LABORATORY [facility] Esterase, Urine Negative Negative 01/09/2024 11:51 AM EDT LABORATORY GL RBC, Urine 50+(A) 0 - 2 /HPF 01/09/2024 11:51 AM EDT LABORATORY GL WBC, Urine 0-2 0 - 2 /HPF 01/09/2024 11:51 AM EDT LABORATORY GL Bacteria, Urine 26-50(A) 0 - 25 /HPF 01/09/2024 11:51 AM EDT LABORATORY GL Culture, Urine 01/09/2024 11:51 AM EDT LABORATORY GL Comment:Quantitative urine c ulture to be performed Urine Urine specimen obtained by clean catch procedure / Unknown Non-blood Collection / Unknown 01/09/2024 11:18 AM EDT 01/09/2024 11:25 AM EDT [facility] URINE ORDERABLE S Performing Organization Address City/[facility]/ZIP Co de Phone Number LABORATORY [address] [phone] * URINALYSIS, REFLEX TO CULTURE (CUP ONLY) (01/09/2024 11:18 AM EDT) Urinalysis, Reflex to Culture Specimen Specimen collected and received 01/09/2024 1:01 PM EDT LABORATORY [facility] Urine Urine specimen obtained by clean catch procedure / Unknown Non-blood Collection / Unknown 01/09/2024 11:18 AM EDT 01/09/2024 11:25 AM EDT [facility] URINE ORDERABLE S Performing Organization Address City/[facility]/ZIP Co de Phone Number LABORATORY [address] [phone] * DIFFERENTIAL, AUTOMATED (01/09/2024 9:01 AM EDT) WBC 7.98 4.00 - 10.80 K/uL 01/09/2024 9:10 AM EDT LABORATORY GL Neutrophils % 61.7 40.0 - 75.0 % 01/09/2024 9:10 AM EDT LABORATORY GL Lymphocytes % 25.6 18.0 - 42.0 % 01/09/2024 9:10 AM EDT LABORATORY GL Monocytes % 7.6 1.0 - 11.0 % 01/09/2024 9:10 AM EDT LABORATORY GL Eosinophils % 4.0 0.0 - 6.0 % 01/09/2024 9:10 AM EDT LABORATORY GL Basophils % 0.6 0.0 - 2.0 % 01/09/2024 9:10 AM EDT LABORATORY GL Immature Granulocytes % 0.5 0.0 - 2.0 % 01/09/2024 9:10 AM EDT LABORATORY [facility] Absolute Neutrophils 4.92 1.80 - 7.70 K/uL 01/09/2024 9:10 AM EDT LABORATORY [facility] Absolute Lymphocytes 2.04 1.00 - 4.80 K/ul 01/09/2024 9:10 AM EDT LABORATORY [facility] Absolute Monocytes 0.61 0.00 - 1.10 K/uL 01/09/2024 9:10 AM EDT LABORATORY [facility] Absolute Eosinophils 0.32 0.00 - 0.70 K/uL 01/09/2024 9:10 AM EDT LABORATORY [facility] Absolute Basophils 0.05 0.00 - 0.20 K/uL 01/09/2024 9:10 AM EDT LABORATORY [facility] Absolute Immature Granulocytes 0.04 0.00 - 0.20 K/uL 01/09/2024 9:10 AM EDT LABORATORY [facility] Blood Venous blood specimen / Unknown Venipuncture / Unknown 01/09/2024 9:01 AM EDT 01/09/2024 9:07 AM EDT Robbie Jenkins DO LAB BLOOD ORDERABLE S LABORATORY [address] [address] * (ABNORMAL) CBC (01/09/2024 9:01 AM EDT) WBC 7.98 4.00 - 10.80 K/uL 01/09/2024 9:10 AM EDT LABORATORY GL RBC 3.97 4.50 - 5.25 M/uL 01/09/2024 9:10 AM EDT LABORATORY GL HGB 11.9(L) 14.0 - 16.8 g/dL 01/09/2024 9:10 AM EDT LABORATORY [facility] HCT 35.8(L) 40.0 - 48.4 % 01/09/2024 9:10 AM EDT LABORATORY GL MCV 90.2 82.0 - 99.5 fL 01/09/2024 9:10 AM EDT LABORATORY GL MCH 30.0 27.0 - 34.0 pg 01/09/2024 9:10 AM EDT LABORATORY GL MCHC 33.2 32.0 - 36.0 g/dL 01/09/2024 9:10 AM EDT LABORATORY [facility] RDW 15.3 11.5 - 15.5 % 01/09/2024 9:10 AM EDT LABORATORY [facility] PLT 203 140 - 400 K/uL 01/09/2024 9:10 AM EDT LABORATORY [facility] MPV 8.6 6.6 - 11.1 fL 01/09/2024 9:10 AM EDT LABORATORY GL nRBCs 0 <=0 /100 WBCs 01/09/2024 9:10 AM EDT LABORATORY [facility] Blood Venous blood specimen / Unknown Venipuncture / Unknown 01/09/2024 9:01 AM EDT 01/09/2024 9:07 AM EDT Robbie Jenkins LAB BLOOD ORDERABLE S LABORATORY [facility] [address] [place] [address] * (ABNORMAL) MAGNESIUM (01/09/2024 9:01 AM EDT) Magnesium 1.2(L) 1.5 - 2.6 mg/dL 01/09/2024 9:50 AM EDT LABORATORY GL Blood Venous blood specimen / Unknown Venipuncture / Unknown 01/09/2024 9:01 AM EDT 01/09/2024 9:07 AM EDT [facility] LAB BLOOD ORDERABLE S Performing Organization Address [facility] Co de Phone Number LABORATORY [address] [phone] * (ABNORMAL) PT INR (01/09/2024 9:01 AM EDT) Prothrombin Time 37.9(H) 11.6 - 15.2 seconds 01/09/2024 9:58 AM EDT LABORATORY [facility] INR 3.8(H) 0.8 - 1.2 01/09/2024 9:58 AM EDT LABORATORY [facility] Blood Venous blood specimen / Unknown Venipuncture / Unknown 01/09/2024 9:01 AM EDT 01/09/2024 9:07 AM EDT Narrative LABORATORY [facility] - 01/09/2024 9:58 AM EDT Warfarin Therapy INR: 2.0-3.0 conventional anticoagulation INR: 2.5-3.5 high intensity anticoagulation [facility] LAB BLOOD ORDERABLE S Performing Organization Address City/[facility]/ZIP Co de Phone Number LABORATORY [address] [phone] * EXTRA RECINOS TOP (01/09/2024 9:01 AM EDT) Blood Venous blood specimen / Unknown Venipuncture / Unknown 01/09/2024 9:01 AM EDT 01/09/2024 9:07 AM EDT [facility] LAB BLOOD ORDERABLE S Performing Organization Address City/[facility]/ZIP Co de Phone Number LABORATORY [address] [phone] * (ABNORMAL) TROPONIN T, HIGH SENSITIVITY (01/09/2024 9:01 AM EDT) Troponin T, High Sensitivity 39(H) <=22 ng/L 01/09/2024 10:33 AM EDT LABORATORY [facility] Blood Venous blood specimen / Unknown Venipuncture / Unknown 01/09/2024 9:01 AM EDT 01/09/2024 9:07 AM EDT Robbie Jenkins DO LAB BLOOD ORDERABLE S LABORATORY [facility] [address] [place] [address] * (ABNORMAL) COMPREHENSIVE METABOLIC PANEL (01/09/2024 9:01 AM EDT) BUN 20 6 - 20 mg/dL 01/09/2024 9:50 AM EDT LABORATORY [facility] Creatinine 1.0 0.6 - 1.2 mg/dL 01/09/2024 9:50 AM EDT LABORATORY [facility] Estimated Glomerular Filtration Rate 81 >=60 mL/min 01/09/2024 9:50 AM EDT LABORATORY [facility] Comment:eGFR is calculated b ased on the CKD-EPI 2020 equation. Sodium 140 135 - 146 mmol/L 01/09/2024 9:50 AM EDT LABORATORY [facility] Potassium 4.2 3.5 - 5.1 mmol/L 01/09/2024 9:50 AM EDT LABORATORY [facility] Chloride 104 98 - 107 mmol/L 01/09/2024 9:50 AM EDT LABORATORY [facility] CO2 24 22 - 32 mmol/L 01/09/2024 9:50 AM EDT LABORATORY [facility] Anion Gap 12 7 - 15 mmol/L 01/09/2024 9:50 AM EDT LABORATORY [facility] Glucose 89 70 - 120 mg/dL 01/09/2024 9:50 AM EDT LABORATORY [facility] Albumin 3.5(L) 3.8 - 5.0 g/dL 01/09/2024 9:50 AM EDT LABORATORY [facility] AST 22 10 - 50 U/L 01/09/2024 9:50 AM EDT LABORATORY [facility] Alkaline Phosphatase 47 35 - 130 U/L 01/09/2024 9:50 AM EDT LABORATORY [facility] Bilirubin, Total 0.5 <=1.2 mg/dL 01/09/2024 9:50 AM EDT LABORATORY [facility] Calcium 8.6 8.4 - 10.2 mg/dL 01/09/2024 9:50 AM EDT LABORATORY [facility] Protein 5.9(L) 6.0 - 8.3 g/dL 01/09/2024 9:50 AM EDT LABORATORY [facility] ALT 16 10 - 50 U/L 01/09/2024 9:50 AM EDT LABORATORY [facility] Blood Venous blood specimen / Unknown Venipuncture / Unknown 01/09/2024 9:01 AM EDT 01/09/2024 9:07 AM EDT Robbie Jenkins DO LAB BLOOD ORDERABLE S LABORATORY [facility] [address] [place] [id number] * XR CHEST 1 VIEW (01/09/2024 8:52 AM EDT) Anatomical Region Laterality Modality Chest Digital Radiogra phy 01/09/2024 8:47 AM EDT Impressions 01/09/2024 9:14 AM EDT IMPRESSION: No acute abnormality. THIS DOCUMENT HAS BEEN ELECTRONICALLY SIGNED BY FELECIA WARREN MD Narrative 01/09/2024 9:14 AM EDT PROCEDURE INFORMATION: Exam: XR Chest Exam date and time: 01/09/2024 8:47 AM Age: 73 years old Clinical indication: Other: Generalized weakness and dysuria that has been ongoing for a few days. ; Additional info: Near syncope TECHNIQUE: Imaging protocol: Radiologic exam of the chest. Views: 1 view. COMPARISON: CT ABD/PELVIS W IV CONTRAST - WO ORAL CONTRAST 09/09/2023 5:33 AM FINDINGS: Lungs: Hyperinflation and interstitial changes consistent with COPD, without focal consolidation or mass. Pleural spaces: Unremarkable. No pleural effusion. No pneumothorax. Heart/Mediastinum: Unremarkable. No cardiomegaly. Bones/joints: Diffuse osteopenia. Surgical changes are incidentally noted in the lower cervical spine. Soft tissues: Right axillary clips. Procedure Note Felecia Warren MD - 01/09/2024 PROCEDURE INFORMATION: Exam: XR Chest Exam date and time: 01/09/2024 8:47 AM Age: 73 years old Clinical indication: Other: Generalized weakness and dysuria that has been ongoing for a few days. ; Additional info: Near syncope TECHNIQUE: Imaging protocol: Radiologic exam of the chest. Views: 1 view. COMPARISON: CT ABD/PELVIS W IV CONTRAST - WO ORAL CONTRAST 09/09/2023 5:33 AM FINDINGS: Lungs: Hyperinflation and interstitial changes consistent with COPD,without focal consolidation or mass. Pleural spaces: Unremarkable. No pleural effusion. No pneumothorax. Heart/Mediastinum: Unremarkable. No cardiomegaly. Bones/joints: Diffuse osteopenia. Surgical changes are incidentally notedin the lower cervical spine. Soft tissues: Right axillary clips. IMPRESSION IMPRESSION: No acute abnormality. THIS DOCUMENT HAS BEEN ELECTRONICALLY SIGNED BY FELECIA WARREN MD [facility] RADIOLOGY (RAD GENE RAL) documented in this encounter Visit Diagnoses Diagnosis Near syncope- Primary Syncope and collapse Near syncope Syncope and collapse Hypomagnesemia Disorders of magnesium metabolism Urinary retention Retention of urine, unspecified Chest pain Chest pain, unspecified Dysuria Orthostatic hypotension BPH with obstruction/lower urinary tract symptoms Hypertrophy of prostate with urinary obstruction and other lower urinary tract symptoms (LUTS) Chaparro catheter in place Other postprocedural status Orthostatic hypotension Hypomagnesemia Disorders of magnesium metabolism Type 2 diabetes mellitus with hemoglobin A1c goal of less than 7.5% (HCC) Hyperlipidemia with target LDL less than 100 Other and unspecified hyperlipidemia Ambulatory dysfunction Anticoagulated on warfarin Long-term (current) use of anticoagulants Diarrhea Loss of weight Acute urinary retention Other specified retention of urine Other constipation History of colonic polyps Personal history of colonic polyps Abdominal pain, generalized Change in bowel habits Other symptoms involving digestive system Early satiety Weight loss Loss of weight Iron deficiency anemia, unspecified iron deficiency anemia type documented in this encounter Administered Medications Inactive Administered Medications - up to 3 most recent administrations Medication Order MAR Action Action Date Dose Rate Site Acetaminophen (Tylenol) tab 650 mg 650 mg, Oral, Q6H PRN Pain, Mild, Fever >38C(100.5F), Starting on Sun01/09/24 at 1326, Until 01/14/24 at 1843, Maximum of 4 grams (4000 mg) per day. cholecalciferol (VIT D3) (Vitamin D3) tab 1,000 Units 1,000 Units, Oral, DAILY NOON, First dose on Sun01/09/24 at 1545, Until Discontinued Given 01/14/2024 12:18 PM EDT 1,000 Units Given 01/13/2024 12:56 PM EDT 1,000 Units Given 01/12/2024 12:00 PM EDT 1,000 Units cinacalcet (Sensipar) tab 30 mg 30 mg, Oral, Daily(AM), First dose on Sun01/09/24 at 1545, Until Discontinued Given 01/14/2024 8:42 AM EDT 30 mg Given 01/13/2024 9:04 AM EDT 30 mg Given 01/12/2024 9:05 AM EDT 30 mg dextrose 50% inj 25 mL 25 mL, IV Push, PRN Hypoglycemia, Other, For blood glucose 54 - 69 mg/dL or 70 - 100 mg/dL with symptoms AND patient is unresponsive, NPO, OR unable to swallow, Starting on Sun01/09/24 at 1352, Until Sun01/14/24 at 1843, Administer IV. Recheck blood glucose after 15 minutes. Notify provider. dextrose 50% inj 50 mL 50 mL, IV Push, PRN Hypoglycemia, Other, For blood glucose below 54 mg/dL AND patient unresponsive, NPO, OR unable to swallow, Starting on Sun01/09/24 at 1352, Until Sun01/14/24 at 1843, Administer IV. Recheck blood glucose in 15 minutes. Notify provider. diphenhydrAMINE (Benadryl) inj 25 mg 25 mg, IV Push, ONCE, On Sun01/13/24 at 0500, For 1 dose Given 01/13/2024 4:39 AM EDT 25 mg DULoxetine (Cymbalta) DR cap 60 mg 60 mg, Oral, Daily(AM), First dose on Sun01/10/24 at 0900, Until Discontinued Given 01/14/2024 8:42 AM EDT 60 mg Given 01/13/2024 9:04 AM EDT 60 mg Given 01/12/2024 9:05 AM EDT 60 mg Ferrous Sulfate (Feosol) tab 325 mg 325 mg, Oral, DAILY NOON, First dose on Sun01/09/24 at 1545, Until Discontinued Given 01/14/2024 12:18 PM EDT 325 mg Given 01/13/2024 12:56 PM EDT 325 mg Given 01/12/2024 12:00 PM EDT 325 mg Finasteride (Proscar) tab 5 mg 5 mg, Oral, Daily(AM), First dose on Josefa 01/10/24 at 0900, Until Discontinued Given 01/14/2024 8:42 AM EDT 5 mg Given 01/13/2024 9:04 AM EDT 5 mg Given 01/12/2024 9:05 AM EDT 5 mg glucagon (Glucagen) inj 1 mg 1 mg, Intramuscular, PRN Hypoglycemia, Other, If patient is unresponsive, or NPO and has no IV access, Starting on Sun01/09/24 at 1352, Until Sun01/14/24 at 1843, NPO and no IV access with either 1) blood glucose less than 100 mg/dL and symptomatic OR 2) blood glucose less than 70 mg/dL and asymptomatic Glucose (Glutose 15) 40 % gel 15 g of glucose 15 g of glucose, Oral, PRN Hypoglycemia (low sugar), Other, For blood glucose 54 - 69 mg/dL or 70 - 100 mg/dL with symptoms AND patient alert WITH difficulty chewing/swallowing, Starting on Sun01/09/24 at 1352, Until Sun01/14/24 at 1843, Administer gel. Recheck blood glucose after 15 minutes. Notify provider. 37.5 gram tube = 15 grams glucose = 1 each Glucose (Glutose 15) 40 % gel 30 g of glucose 30 g of glucose, Oral, PRN Hypoglycemia (low sugar), Other, For blood glucose below 54 mg/dL AND patient alert WITH difficulty chewing/swallowing, Starting on Sun01/09/24 at 1352, Until Sun01/14/24 at 1843, Administer gel. Recheck blood glucose after 15 minutes. Notify provider. 37.5 gram tube = 15 grams glucose = 1 each glucose chew tab 16 g 16 g, Oral, PRN Hypoglycemia, Other, For blood glucose 54 - 69 mg/dL or 70 - 100 mg/dL with symptoms and patient alert without difficulty chewing/swallowing., Starting on Sun01/09/24 at 1352, Until Sun01/14/24 at 1843 insulin aspart (NovoLOG) inj Subcutaneous, W/MEALS AND HS, First dose on Sun01/09/24 at 1700, Until Discontinued, MEDIUM DOSE (Usual starting dose): Sliding Scale Correctional insulin may be given if the patient is NPO. Dose based on standard build from Insulin Calculator. Do not modify insulin doses in administration instructions!, Glucose less than 70 instructions: Obtain STAT lab blood glucose and call covering provider., Glucose 80-150 (units): 0, Glucose 151-200 (units): 2, Glucose 201-250 (units): 4, Glucose 251-300 (units): 6, Glucose greater than 300 (units): 8, Glucose greater than 300 instructions: Give suggested insulin dose and call covering provider. Given 01/14/2024 12:19 PM EDT 6 Units Arm Left Upper Given 01/13/2024 10:20 PM EDT 4 Units A bdomen Right Lower Given 01/13/2024 5:06 PM EDT 4 Units Ar m Right Upper Iohexol (Omnipaque) 9 MG/ML oral solution 1,000 mL 1,000 mL, Oral, ONCE, On Sun01/09/24 at 2315, For 1 dose, Radiology Medication Routing (Non-IR) Given 01/09/2024 11:15 PM EDT 1,000 mL Iopamidol (Isovue 370) inj 80 mL 80 mL, Intravenous, ONCE, On Sun01/09/24 at 2315, For 1 dose, Radiology Medication Routing (Non-IR) Given 01/09/2024 11:15 PM EDT 80 mL magnesium sulfate 1 g in d5w 100mL LOCKED DOSE 1 g, IV Piggyback, Q30 MINUTES, 2 doses, First dose (after last modification) on Sun01/09/24 at 1145, Last dose on Sun01/09/24 at 1215, Administer over 30 Minutes, Total dose is 2g New Bag 01/09/2024 12:26 PM EDT 1 g 200 mL/hr New Bag 01/09/2024 11:28 AM EDT 1 g 200 mL/hr methylPREDNISolone sodium succ (SOLU-Medrol) inj 40 mg 40 mg, IV Push, ONCE, On Sun01/13/24 at 1045, For 1 dose Given 01/13/2024 10:33 AM EDT 40 mg metoprolol succinate XL (toPROL XL) tab 12.5 mg 12.5 mg, Oral, QHS, First dose on Sun01/09/24 at 2200, Until Discontinued, Hold for HR less than 60 or SBP below 100 and notify service if dose is held This med should NOT be Crushed or Chewed. Given 01/12/2024 10:09 PM EDT 12.5 mg Given 01/11/2024 9:07 PM EDT 12.5 mg Given 01/10/2024 9:11 PM EDT 12.5 mg midodrine (Proamatine) tab 5 mg 5 mg, Oral, TID ;, First dose on Sun01/09/24 at 1800, Until Discontinued Given 01/14/2024 5:54 AM EDT 5 mg Given 01/13/2024 5:06 PM EDT 5 mg Given 01/13/2024 12:56 PM EDT 5 mg midodrine HCl (Proamatine) tab 10 mg 10 mg, Oral, TID , First dose (after last modification) on Sun01/14/24 at 1200, Until Discontinued Given 01/14/2024 12:18 PM EDT 10 mg NSS 0.9% 500 mL bolus infusion Peripheral IV, at 500 mL/hr Administer over 60 Minutes, Administer entire volume within 60 minutes or less., ONCE, 1 dose, On Sun01/09/24 at 0915 New Bag 01/09/2024 9:03 AM EDT 500 mL 50 0 mL/hr NSS infusion Intravenous, at 75 mL/hr, CONTINUOUS, Starting on Sun01/10/24 at 1700, Until Sun01/11/24 at 0459 Rate Verify 01/10/2024 5:20 PM EDT 75 mL/hr New Bag 01/10/2024 4:42 PM EDT 75 mL/hr NSS infusion Intravenous, at 75 mL/hr, CONTINUOUS, Starting on Sun01/11/24 at 1230, Until 01/12/24 at 1229 Rate Verify 01/12/2024 1:00 PM EDT 75 mL /hr Restarted 01/12/2024 6:34 AM EDT 75 mL/hr Rate Verify 01/12/2024 5:04 AM EDT 75 mL/hr Nutrisource (soluble fiber packet) 1 Packet, Oral, Daily(AM), First dose on Sun01/09/24 at 1600, Until Discontinued Given 01/14/2024 8:40 AM EDT 1 Pa cket Given 01/13/2024 9:04 AM EDT 1 Packet Given 01/12/2024 9:00 AM EDT 1 Packet omeprazole (PriLOSEC) cap 20 mg 20 mg, Oral, BEFORE BREAKFAST, First dose on [facility] 01/10/24 at 0745, Until Discontinued, This med should NOT be Crushed or Chewed Given 01/14/2024 8:42 AM EDT 20 mg Given 01/13/2024 6:47 AM EDT 20 mg Given 01/12/2024 6:23 AM EDT 20 mg ondansetron (Zofran) tab 4 mg 4 mg, Oral, Q8H PRN Nausea, Vomiting, Starting on Sun01/09/24 at 1515, Until Sun01/14/24 at 1843 Polyethylene Glycol 3350 (Miralax) oral powder 17 g 17 g, Oral, Daily(AM), First dose (after last modification) on Sun01/09/24 at 1600, Until Discontinued, Mix in 8 oz of water, juice, soda, coffee, or tea. Given 01/13/2024 9:04 AM EDT 17 g Given 01/12/2024 9:00 AM EDT 17 g pyRIDostigmine (Mestinon) tab 30 mg 30 mg, Oral, BID (.AM/PM), First dose on [place] 01/13/24 at 0900, Until Discontinued Given 01/13/2024 9:13 AM EDT 30 mg pyRIDostigmine (Mestinon) tab 30 mg 30 mg, Oral, TID(AM/NOON/HS), First dose (after last modification) on [place] 01/13/24 at 1515, Until Discontinued Given 01/13/2024 7:53 PM EDT 30 mg Given 01/13/2024 3:32 PM EDT 30 mg sodium chloride 0.9 % flush peripheral mohit 3 mL 3 mL, IV Push, QSHIFT, First dose on Sun01/09/24 at 1600, Until Discontinued, Do not flush if lock, PICC, or central line not in place; IV infusing or unable to flush. Given 01/09/2024 4:00 PM EDT 3 mL sodium chloride 0.9 % flush/inj 3 mL 3 mL, IV Push, PRN Other, Line Patency, Starting on Sun01/09/24 at 1325, Until Sun01/14/24 at 1843, Do not flush if lock, PICC, or central line not in place, IV infusing or unable to flush tamsulosin (Flomax) cap 0.8 mg 0.8 mg, Oral, HS, First dose on Sun01/09/24 at 2200, Until Discontinued, Administer 30 min after meal. This med should NOT be Crushed or Chewed or opened! ORAL administration only!! Given 01/13/2024 7:52 PM EDT 0.8 mg Given 01/12/2024 10:09 PM EDT 0.8 mg Given 01/11/2024 9:07 PM EDT 0.8 mg Warfarin Sodium (Coumadin) tab 2.5 mg 2.5 mg, Oral, QPM-1999, First dose on Sun01/11/24 at 1999, Last dose on Sun01/11/24 at 1999, For 1 day, WASTE INFO: Return packaging and waste medication in zip lock bag to pharmacy - [facility] container. Given 01/11/2024 9:08 PM EDT 2.5 mg Warfarin Sodium (Coumadin) tab 5 mg 5 mg, Oral, QPM-1999, First dose on 01/12/24 at 1999, Last dose on 01/12/24 at 1999, For 1 day, WASTE INFO: Return packaging and waste medication in zip lock bag to pharmacy - [facility] container. Given 01/12/2024 10:09 PM EDT 5 mg Warfarin Sodium (Coumadin) tab 5 mg 5 mg, Oral, QPM-1999, First dose on 01/13/24 at 1999, Last dose on 01/13/24 at 1999, For 1 day, WASTE INFO: Return packaging and waste medication in zip lock bag to pharmacy - [facility] container. Given 01/13/2024 7:53 PM EDT 5 mg Warfarin Sodium (Coumadin) tab 7.5 mg 7.5 mg, Oral, QPM-1999, First dose on Sun01/14/24 at 1999, Last dose on Sun01/14/24 at 1999, For 1 day, WASTE INFO: Return packaging and waste medication in zip lock bag to pharmacy - [facility] container. documented in this encounter Active and Recently Administered Medications Times are shown in EDT. Scheduled Medication Order 01/12/2024 01/13/2024 01/14/2024 cholecalciferol (VIT D3) (Vitamin D3) tab 1,000 Units 1,000 Units, Oral, DAILY NOON, First dose on Sun01/09/24 at 1545, Until Discontinued 1200 (Given - Provider: Boone Robertson RN) 1256 (Given - Provider: Jessi Puri, TREY) 1218 (Given - Provider: Leena Bellamy, TREY) cinacalcet (Sensipar) tab 30 mg 30 mg, Oral, Daily(AM), First dose on Sun01/09/24 at 1545, Until Discontinued 09 (Given - Provider: Boone Robertson RN) 0904 (Given - Provider: Jessi Puri RN) 0842 (Given - Provider: Leena Bellamy, TREY) diphenhydrAMINE (Benadryl) inj 25 mg (COMPLETED) 25 mg, IV Push, ONCE, On Sun01/13/24 at 0500, For 1 dose 0439 (Given - Provider: Gladys Ferguson RN) DULoxetine (Cymbalta) DR cap 60 mg 60 mg, Oral, Daily(AM), First dose on Sun01/10/24 at 0900, Until Discontinued 904 (Given - Provider: Boone Robertson RN) 09 (Given - Provider: Jessi Puri RN) 0842 (Given - Provider: Leena Bellamy, TREY) Ferrous Sulfate (Feosol) tab 325 mg 325 mg, Oral, DAILY NOON, First dose on Sun01/09/24 at 1545, Until Discontinued 1200 (Given - Provider: Boone Robertson RN) 1256 (Given - Provider: Jessi Puri RN) 1218 (Given - Provider: Leena Bellamy, TREY) Finasteride (Proscar) tab 5 mg 5 mg, Oral, Daily(AM), First dose on Sun01/10/24 at 0900, Until Discontinued 904 (Given - Provider: Boone Robertson RN) 09 (Given - Provider: Jessi Puri RN) 0842 (Given - Provider: Leena Bellamy, TREY) insulin aspart (NovoLOG) inj Subcutaneous, W/MEALS AND HS, First dose on Sun01/09/24 at 1700, Until Discontinued, MEDIUM DOSE (Usual starting dose): Sliding Scale Correctional insulin may be given if the patient is NPO. Dose based on standard build from Insulin Calculator. Do not modify insulin doses in administration instructions!, Glucose less than 70 instructions: Obtain STAT lab blood glucose and call covering provider., Glucose 80-150 (units): 0, Glucose 151-200 (units): 2, Glucose 201-250 (units): 4, Glucose 251-300 (units): 6, Glucose greater than 300 (units): 8, Glucose greater than 300 instructions: Give suggested insulin dose and call covering provider. 0800 (Not Given - Provider: Boone Robertson RN - Reason: Parameter(s) Not Met)1200 (Given - Provider: Boone Robertson RN)1730 (Given - Provider: Boone Robertson RN)2200 (No Insulin - Provider: Otilio Robertson LPN - Reason: Parameter(s) Not Met) 0800 (No Insulin - Provider: Jessi Puri RN - Reason: Parameter(s) Not Met)1256 (Given - Provider: Jessi Puri RN)1706 (Given - Provider: Jessi Puri RN)2220 (Given - Provider: Otilio Robertson LPN) 0800 (No Insulin - Provider: Leena Bellamy RN - Reason: Parameter(s) Not Met)1219 (Given - Provider: Leena Bellamy RN) methylPREDNISolone sodium succ (SOLU-Medrol) inj 40 mg (COMPLETED) 40 mg, IV Push, ONCE, On Sun01/13/24 at 1045, For 1 dose 1033 (Given - Provider: Jessi Puri RN) metoprolol succinate XL (toPROL XL) tab 12.5 mg 12.5 mg, Oral, QHS, First dose on Sun01/09/24 at 2200, Until Discontinued, Hold for HR less than 60 or SBP below 100 and notify service if dose is held This med should NOT be Crushed or Chewed. 2208 (Given - Provider: Otilio Robertson LPN) 1953 (Not Given - Provider: Otilio Robertson LPN - Reason: Parameter(s) Not Met) midodrine (Proamatine) tab 5 mg (CANCELED) 5 mg, Oral, TID ;;18, First dose on Sun01/09/24 at 1800, Until Discontinued 0623 (Given - Provider: Otilio Robretson LPN)1200 (Given - Provider: Boone Robertson RN)1730 (Given - Provider: Boone Robertson RN) 0647 (Given - Provider: Otilio Robertson LPN)1256 (Given - Provider: Jessi Puri RN)1706 (Given - Provider: Jessi Puri RN) 0554 (Given - Provider: Otilio Robertson LPN) midodrine HCl (Proamatine) tab 10 mg 10 mg, Oral, TID ;;, First dose (after last modification) on Sun01/14/24 at 1200, Until Discontinued 1218 (Given - Provider: Leena Bellamy RN) Nutrisource (soluble fiber packet) 1 Packet, Oral, Daily(AM), First dose on Sun01/09/24 at 1600, Until Discontinued 0900 (Given - Provider: Boone Robertson RN) 0904 (Given - Provider: Jessi Puri RN) 0840 (Given - Provider: Leena Bellamy RN) omeprazole (PriLOSEC) cap 20 mg 20 mg, Oral, BEFORE BREAKFAST, First dose on Sun01/10/24 at 0745, Until Discontinued, This med should NOT be Crushed or Chewed 0623 (Given - Provider: Otilio Robertson LPN) 0647 (Given - Provider: Otilio Robertson LPN) 0842 (Given - Provider: Leena Bellamy RN) Polyethylene Glycol 3350 (Miralax) oral powder 17 g 17 g, Oral, Daily(AM), First dose (after last modification) on Sun01/09/24 at 1600, Until Discontinued, Mix in 8 oz of water, juice, soda, coffee, or tea. 0900 (Given - Provider: Boone Robertson RN) 0904 (Given - Provider: Jessi Puri RN) 0900 (Not Given - Provider: Leena Bellamy RN - Reason: Refused-Notify Provider - Comment: had loose stools over night) pyRIDostigmine (Mestinon) tab 30 mg (CANCELED) 30 mg, Oral, BID (.AM/PM), First dose on Sun01/13/24 at 0900, Until Discontinued 912 (Given - Provider: Jessi Puri, RN) pyRIDostigmine (Mestinon) tab 30 mg (CANCELED) 30 mg, Oral, TID(AM/NOON/HS), First dose (after last modification) on Sun01/13/24 at 1515, Until Discontinued 153 (Given - Provider: Jessi Puri RN)1952 (Given - Provider: Otilio Robertson LPN) 0600 (Not Given - Provider: Otilio Robertson LPN - Reason: Refused-Notify Provider - Comment: Pt. states this caused belly pain. Pt, is refusing at this time) tamsulosin (Flomax) cap 0.8 mg 0.8 mg, Oral, HS, First dose on Sun01/09/24 at 2200, Until Discontinued, Administer 30 min after meal. This med should NOT be Crushed or Chewed or opened! ORAL administration only!! 2208 (Given - Provider: Otilio Robertson LPN) 1951 (Given - Provider: Otilio Robertson LPN) warfarin check daily dose (PHARMACIST MANAGED) [id number], First dose on Sun01/09/24 at 1500, Until Discontinued, Routine, Contact the pharmacy if there is not a warfarin dose entered by 1500 and document with whom it was discussed. 1500 (Order Check Addressed - Provider: Boone Robertson RN) 1500 (Order Check Addressed - Provider: Jessi Puri RN) Warfarin Sodium (Coumadin) tab 5 mg (COMPLETED) 5 mg, Oral, QPM-1999, First dose on Sun01/12/24 at 1999, Last dose on Sun01/12/24 at 1999, For 1 day, WASTE INFO: Return packaging and waste medication in zip lock bag to pharmacy - [facility] container. 2208 (Given - Provider: Otilio Robertson LPN) Warfarin Sodium (Coumadin) tab 5 mg (COMPLETED) 5 mg, Oral, QPM-1999, First dose on Sun01/13/24 at 1999, Last dose on Sun01/13/24 at 1999, For 1 day, WASTE INFO: Return packaging and waste medication in zip lock bag to pharmacy - [facility] container. 1952 (Given - Provider: Otilio Robertson LPN) Warfarin Sodium (Coumadin) tab 7.5 mg 7.5 mg, Oral, QPM-1999, First dose on Sun01/14/24 at 1999, Last dose on Sun01/14/24 at 1999, For 1 day, WASTE INFO: Return packaging and waste medication in zip lock bag to pharmacy - [facility] container. Continuous Medication Order 01/12/2024 01/13/2024 01/14/2024 NSS infusion () Intravenous, at 75 mL/hr, CONTINUOUS, Starting on Sun01/11/24 at 1230, Until Sun01/12/24 at 1229 0121 (Stopped - Provider: Otilio Robertson LPN)0123 (New Bag - Provider: Otilio Robertson LPN)0504 (Rate Verify - Provider: Otilio Robertson LPN)0625 (Paused - Provider: Boone Robertson, TREY)0634 (Restarted - Provider: Boone Robertson, TREY)1300 (Rate Verify - Provider: Boone Robertson RN) PRN Medication Order 01/12/2024 01/13/2024 01/14/2024 Acetaminophen (Tylenol) tab 650 mg 650 mg, Oral, Q6H PRN Pain, Mild, Fever >38C(100.5F), Starting on Sun01/09/24 at 1326, Until Sun01/14/24 at 1843, Maximum of 4 grams (4000 mg) per day. dextrose 50% inj 25 mL 25 mL, IV Push, PRN Hypoglycemia, Other, For blood glucose 54 - 69 mg/dL or 70 - 100 mg/dL with symptoms AND patient is unresponsive, NPO, OR unable to swallow, Starting on Sun01/09/24 at 1352, Until Sun01/14/24 at 1843, Administer IV. Recheck blood glucose after 15 minutes. Notify provider. dextrose 50% inj 50 mL 50 mL, IV Push, PRN Hypoglycemia, Other, For blood glucose below 54 mg/dL AND patient unresponsive, NPO, OR unable to swallow, Starting on Sun01/09/24 at 1352, Until Sun01/14/24 at 1843, Administer IV. Recheck blood glucose in 15 minutes. Notify provider. glucagon (Glucagen) inj 1 mg 1 mg, Intramuscular, PRN Hypoglycemia, Other, If patient is unresponsive, or NPO and has no IV access, Starting on Sun01/09/24 at 1352, Until Sun01/14/24 at 1843, NPO and no IV access with either 1) blood glucose less than 100 mg/dL and symptomatic OR 2) blood glucose less than 70 mg/dL and asymptomatic Glucose (Glutose 15) 40 % gel 15 g of glucose 15 g of glucose, Oral, PRN Hypoglycemia (low sugar), Other, For blood glucose 54 - 69 mg/dL or 70 - 100 mg/dL with symptoms AND patient alert WITH difficulty chewing/swallowing, Starting on Sun01/09/24 at 1352, Until Sun01/14/24 at 1843, Administer gel. Recheck blood glucose after 15 minutes. Notify provider. 37.5 gram tube = 15 grams glucose = 1 each Glucose (Glutose 15) 40 % gel 30 g of glucose 30 g of glucose, Oral, PRN Hypoglycemia (low sugar), Other, For blood glucose below 54 mg/dL AND patient alert WITH difficulty chewing/swallowing, Starting on Sun01/09/24 at 1352, Until Sun01/14/24 at 1843, Administer gel. Recheck blood glucose after 15 minutes. Notify provider. 37.5 gram tube = 15 grams glucose = 1 each glucose chew tab 16 g 16 g, Oral, PRN Hypoglycemia, Other, For blood glucose 54 - 69 mg/dL or 70 - 100 mg/dL with symptoms and patient alert without difficulty chewing/swallowing., Starting on Sun01/09/24 at 1352, Until Sun01/14/24 at 1843 ondansetron (Zofran) tab 4 mg 4 mg, Oral, Q8H PRN Nausea, Vomiting, Starting on Sun01/09/24 at 1515, Until Sun01/14/24 at 1843 sodium chloride 0.9 % flush/inj 3 mL 3 mL, IV Push, PRN Other, Line Patency, Starting on Sun01/09/24 at 1325, Until 01/14/24 at 1843, Do not flush if lock, PICC, or central line not in place, IV infusing or unable to flush documented in this encounter Additional Health Concerns Infection Onset Date Last Indicated Resolved Time Gastrointestinal Rule-Out 12/09/2023 01/09/2024 C. difficile Rule-Out 01/09/2024 01/09/20242023 2:07 AM EDT documented as of this encounter [...] Power of Attor jus? No Care Teams Oven Heater Relationship Specialty Start Date End Date Kaiser Amanda MD [address] [id number] PCP - General Family Medicine 04/11/21 documented as of this encounter
--- OUTSIDE RECORDS SUMMARY | 2024-01-29 20:32 | External Medical Summary | Summary of Care ---
Author Name Unknown Organization [facility] [address] [facility] [address] Phone [phone] Care Team Providers Care Laboratory Technical Specialist Name Role Phone Kaiser Amanda MD Primary Care Provider [phone] Encounter Details Date Type Department Care Team (Late st Contact Info) Description 01/15/2024 Population Health External Data Unspecified Department Allergies Active Allergy Reactions Criticality Noted Date Comments Cat Dander Itching 07/14/2016 documented as of this encounter (statuses as of 01/15/2024) Medications Medication Sig Dispensed Refills Start Date End Date Status OneTouch Ultra 2 w/Device KitIndications:Type 2 diabetes mellitus with hemoglobin A1c goal of less than 7.5% ([facility]) Testing blood sugars twice daily [...] hemoglobin A1c goal of less than 7.5% ([facility]) Take 1 Tablet by mouth [...] mRNA, LNP-s, No Pre serve, 2-Dose Series (100du.tv) 04/23/2021,08/09/2020,07/12/2020 Covid-19, Mrna, Lnp-s, Pf, B ivalent, [...] or do you have serious difficulty hearing? Yes-ST[place]; no hearing aids 01/09/2024 Are you blind [...] Description 01/15/2024 5:50 PM EDT Anticoagulation Pharmacy, [place] [address] [address] Pharmacist2, [facility] [place] [address] [address] History of pulmonary embolism*; History of DVT (deep vein thrombosis) 01/25/2024 3:30 PM EDT Office Visit [facility] [place] [address] [place] [address] [facility] [address] [facility] [address] 02/21/2024 10:30 AM EDT Office Visit Urology Rolo Colon [address] [place] [address] Nikolai Chaudhari MD [address] [place] [address] 02/25/2024 11:20 AM EDT Office Visit [facility] [address] [place] [phone] Kaiser Amanda MD [address] [place] [address] 03/05/2024 1:00 PM EDT Appointment Cardiac Studies, [address] [place] [address] 03/26/2024 8:00 AM EST Hospital Encounter OR [facility], Operating Room, [facility] - 4th Floor [address] [place], [place] [address] [phone] John Gordillo MD [address] [place] [address] 03/26/2024 8:00 AM EST - 03/26/2024 8:46 AM EST Surgery OR [facility], Operating Room, [facility] Floor [address] [place], [place] [address] [phone] John Gordillo MD [address] [place] [address] COLONOSCOPY FLEXIBLE PROXIMAL DIAGNOSTIC 04/01/2024 12:30 PM EST Office Visit Gastroenterology, [facility] [address] [place] [phone] Thelma Jamil PA-C [address] [facility] [place] [address] 06/12/2024 2:00 PM EST Office [address]iology, [address] [address] Clarissa Rapp PA-C [address] [place] [address] 10/21/2024 9:15 AM EDT Appointment Radiology, [facility] [address] [facility] [place] [address] 10/29/2024 9:45 AM EDT Office Visit Urology Rolo Colon [address] [place] [address] Bert Boogie Jr., MD [address] [address] Scheduled Procedures Name Priority Associated Diagnoses Date/Ti [...] 01/25/2023, 090 01/2021, 12/10/2018 Colonoscopy 03/16/2025 03/16/2022, 110 07/2021, 08/06/2009 Colorectal Cancer Screening 03/16/2025 Lipid Panel 02/27/2028 02/26/2023, 120 08/2021, 05/26/2021, Additional history exists DTap/Tdap Vaccines (3 - Td or Tdap) 12/10/2029 12/11/2019, 06/03/2014 Pneumococcal Vaccine: 65+ Years Completed 05/22/2017, 02/23/2016, 09/25/2011 Zoster Vaccines Completed 03/26/2019, 12/12, 09/27/2011 VITAMIN D LEVEL ONCE IN A LIFETIME-USE SMARTSET# [id number] Completed 07/26/2023, 02/26/2023, 01/23/2023, Additional history exists [...] this encounter Medical Devices Implanted Type Area Cotton Stripper Device Identifier Shelf Expiration Date Model / Serial / Lot Cement Bone Simplex Hv & G - [id number] Implanted:Qty: 2 on 09/02/2020 by Gianni Hubbard MD at OR [facility] Right: Hip LUDY : ORTHOPAEDICS 08/11/2021 [id number] / / [id number] Spacer Ring Aclde Distal Lg 14 - [id number] Implanted:Qty: 1 on 09/02/2020 by Gianni Hubbard MD at OR [facility] Right: Hip LUD[employer] : ORTHOPAEDICS 11/25/2024 [id number] / / Accolade C Cs 127 6 37/158 - [id number] Implanted:Qty: 1 on 09/02/2020 by Gianni Hubbard MD at OR [facility] Right: Hip LUD[employer] : ORTHOPAEDICS 05/29/2023 [id number] / / [id number] Hip Cocr Lfit Head V40 28/+4 - [id number] Implanted:Qty: 1 on 09/02/2020 by Gianni Hubbard MD at OR [facility] Right: Hip [employer]UD[employer] : ORTHOPAEDICS 11/15/2024 [id number] / / [id number] Hip Head Bipol Uhr Uni 28x52 - [id number] Implanted:Qty: 1 on 09/02/2020 by Gianni Hubbard MD at OR [facility] Right: Hip [employer]UD[employer] : ORTHOPAEDICS 11/25/2024 [id number] / / [id number] Lens Intraoc 17.5 - [id number] - [id number] Implanted:Qty: 1 on 03/23/2022 by Rad Morgan MD at OR [facility] Left: Eye [employer] 10/11/2026 [id number] / [id number] / [id number] Lens Intraoc 18.0 - [id number] - [id number] Implanted:Qty: 1 on 03/30/2022 by Rad Morgan MD at OR [facility] Right: Eye [employer]OMB 01/11/2027 [id number] / [id number] / [id number] documented as of this encounter Additional Health [...] Power of Attor jus? No Care Teams Laboratory Technical Specialist Relationship Specialty Start Date End Date Kaiser Amanda MD [address] [address] PCP - General Family Medicine 04/11/21 documented as of this encounter
--- OUTSIDE RECORDS SUMMARY | 2024-01-29 20:32 | External Medical Summary | Summary of Care ---
Author Name Unknown Organization [facility] Address [address] [place] [address] Phone [phone] Care Team Providers Care Yarn Tester Name Role Phone Kaiser Amanda MD Primary Care Provider [phone] Reason for Visit * Reason Onset Date Comments TRIAGE 01/17/2024 Encounter Details Date Type Department Care Team (Late st Contact Info) Description 01/17/2024 Telephone Access Center, [place] [address] [facility] *DO NOT REMOVE THIS DEPARTMENT* [place] [address] Services, Scheduling [address] [place] [address] TRIAGE Allergies Active Allergy Reactions Criticality Noted Date Comments Cat Dander Itching 07/14/2016 documented as of this encounter (statuses as of 01/18/2024) Medications Medication Sig Dispensed Refills Start Date End Date Status OneTouch Ultra 2 w/Device KitIndications:Type 2 diabetes mellitus with hemoglobin A1c goal of less than 7.5% ([facility]) Testing blood sugars twice daily Dx: E11.9 1 Kit 11 06/06/2021 Active OneTouch Delica Lancets 30GIndications:Type 2 diabetes mellitus with hemoglobin A1c goal of less than 7.5% ([facility]),Type 2 diabetes mellitus with polyneuropathy ([facility]) Check BS once daily E11.9 100 [...] as of this encounter (statuses as of 01/18/2024) Active Problems Problem Noted Date Diagnosed Date [...] as of this encounter (statuses as of 01/18/2024) Resolved Problems Problem Noted Date Diagnosed Date [...] as of this encounter (statuses as of 01/18/2024) Immunizations Name Administration Dates Next Due COVID-19 mRNA, LNP-s, No Pre serve, 2-Dose Series ([employer]) 04/23/2021,08/09/2020,07/12/2020 Covid-19, Mrna, Lnp-s, Pf, B ivalent, [...] or do you have serious difficulty hearing? Yes-TE-MOAK; no hearing aids 01/09/2024 Are you blind [...] AM EDT Please call Joann back at [facility] at [phone] she states the doctor at the facility wants him to come in the urology clinic for the void trial for juarez removal since it was such a hardplacement in the er on 01/08 documented in this encounter Plan of Treatment Upcoming Encounters Date Type Department Care Team (Late st Contact Info) Description 01/22/2024 5:50 PM EDT Anticoagulation Pharmacy, [place] [address] [address] Pharmacist2, [facility] [address] [address] 01/25/2024 3:30 PM EDT Office Visit [facility] [address] [place] [address] Laney Hogue MD [address] [place] [address] 02/21/2024 10:30 AM EDT Office Visit Urology [place] [address] [facility] [address] [address] Nikolai Chaudhari MD [address] [address] 02/25/2024 11:20 AM EDT Office Visit [facility] [address] [address] Kaiser Amanda MD [address] [address] 03/05/2024 1:00 PM EDT [facility] [place] [address] 03/26/2024 8:00 AM EST Hospital Encounter [facility], Operating Room, [facility] - 4th Floor [address] [place] [address] John Gordillo MD [address] [address] 03/26/2024 8:00 AM EST - 03/26/2024 8:46 AM EST Surgery OR [facility], Operating Room, [facility] - 4th Floor [address] [place] [phone] John Gordillo MD [address] [place] [address] COLONOSCOPY FLEXIBLE PROXIMAL DIAGNOSTIC 04/01/2024 12:30 PM EST Office Visit Gastroenterology, [facility] [address] [place] [address] Thelma Jamil PA-C [address] [place] [address] 06/12/2024 2:00 PM EST Office Visit Cardiology, [place] [address] [place] [address] Clarissa Rapp PA-C [address] [place] [address] 10/21/2024 9:15 AM EDT Appointment Radiology, [facility] 400 [place] [address] 10/29/2024 9:45 AM EDT Office Visit Urology Aleida Rinaldi [place] [address] [facility] [address] [place] [address] Bert Boogie Jr., MD [address] [place] [address] Scheduled Procedures Name Priority Associated Diagnoses Date/Ti [...] D LEVEL ONCE IN A LIFETIME-USE SMARTSET# 13779 Completed 07/26/2023, 02/26/2023, 01/23/2023, Additional history exists [...] this encounter Medical Devices Implanted Type Area Asphalt Heater Tender Device Identifier Shelf Expiration Date Model / Serial / Lot Cement Bone Simplex Hv & G - [id number] Implanted:Qty: 2 on 09/02/2020 by Gianni Hubbard MD at OR [facility] Right: Hip LUDY : ORTHOPAEDICS 08/11/2021 6195-1-010 / / [id number] Spacer Ring Aclde Distal Lg 14 - [id number] Implanted:Qty: 1 on 09/02/2020 by Gianni Hubbard MD at OR [facility] Right: Hip LUDY : ORTHOPAEDICS 11/25/2024 [id number] / / Accolade C Cs 127 6 37/158 - [id number] Implanted:Qty: 1 on 09/02/2020 by Gianni Hubbard MD at OR [facility] Right: Hip LUDY : ORTHOPAEDICS 05/29/2023 [id number] / / [id number] Hip Cocr Lfit Head V40 28/+4 - [id number] Implanted:Qty: 1 on 09/02/2020 by Gianni Hubbard MD at OR [facility] Right: Hip LUDY : ORTHOPAEDICS 11/15/2024 6260-9-228 / / [id number] Hip Head Bipol Uhr Uni 28x52 - [id number] Implanted:Qty: 1 on 09/02/2020 by Gianni Hubbard MD at OR [facility] Right: Hip LUDY : ORTHOPAEDICS 11/25/2024 UH1-52-28 / / [id number] Lens Intraoc 17.5 - [id number] - [id number] Implanted:Qty: 1 on 03/23/2022 by aRd Morgan MD at OR [facility] Left: Eye BAUSCH & LOMB 10/11/2026 [id number] / [id number] / [id number] Lens Intraoc 18.0 - [id number] - [id number] Implanted:Qty: 1 on 03/30/2022 by Rad Morgan MD at OR [facility] Right: Eye BAUSCH & LOMB 01/11/2027 [id number] / [id number] / [id number] documented as of this encounter Additional Health [...] Power of Attor jus? No Care Teams Yarn Tester Relationship Specialty Start Date End Date Kaiser Amanda MD [address] [facility] [place] [address] PCP - General Family Medicine 04/11/21 documented as of this encounter
--- OUTSIDE RECORDS SUMMARY | 2024-01-29 20:32 | External Medical Summary ---
Author Name Unknown Address Unknown Organization K09:[facility] [place] [address] Laboratory Report Ordering Provider Test Date Status CARLINE OLIVO 01/16/2024 06:37:13 Final Warfarin Therapy
INR: 2 .0-3.0 conventional anticoagulation
INR: 2.5- 3.5 high intensity anticoagulation Observation Date Value Abnormality Reference (Units ) Status PT 01/16/2024 06:37:13 17.8 Above high normal 11 .6-15.2 (seconds) Final INR 01/16/2024 06:37:13 1.5 Above high normal 0. 8-1.2 Final Performing Location [facility] [place] [address]
--- OUTSIDE RECORDS SUMMARY | 2024-01-29 20:32 | External Medical Summary ---
Author Name Unknown Address Unknown Organization K09:[facility] [place] [address] Laboratory Report Ordering Provider Test Date Status CARLINE OLIVO 01/18/2024 07:12:01 Final Warfarin Therapy
INR: 2 .0-3.0 conventional anticoagulation
INR: 2.5- 3.5 high intensity anticoagulation Observation Date Value Abnormality Reference (Units ) Status PT 01/18/2024 07:12:01 22.5 Above high normal 11 .6-15.2 (seconds) Final INR 01/18/2024 07:12:01 2.0 Above high normal 0. 8-1.2 Final Performing Location [facility] [place] [address]
--- OUTSIDE RECORDS SUMMARY | 2024-01-29 20:32 | External Medical Summary | Summary of Care ---
Author Name Unknown Organization [facility] Address [address] [facility] [address] Phone [phone] Care Team Providers Care Smelter Charger Name Role Phone Kaiser Amanda MD Primary Care Provider [phone] Reason for Visit * Reason Comments Hospital Follow-Up Encounter Details Date Type Department Care Team (Late st Contact Info) Description 01/15/2024 5:50 PM EDT Anticoagulation Pharmacy, [address] [place] [address] Pharmacist2, [facility] [address] [place] [address] History of pulmonary embolism*; History of DVT (deep vein thrombosis) Allergies Active Allergy Reactions Criticality Noted Date Comments Cat Dander Itching 07/14/2016 documented as of this encounter (statuses as of 01/15/2024) Medications Medication Sig Dispensed Refills Start Date End Date Status FactyleTouch Ultra 2 w/Device KitIndications:Type 2 diabetes mellitus with hemoglobin A1c goal of less than 7.5% ([facility]) Testing blood sugars twice daily Dx: E11.9 1 Kit 11 06/06/2021 Active OneTouch Delica Lancets 30GIndications:Type 2 diabetes mellitus with hemoglobin A1c goal of less than 7.5% ([facility]),Type 2 diabetes mellitus with polyneuropathy (H[facility]) Check [...] hemoglobin A1c goal of less than 7.5% ([facility]) USE STRIP TO CHECK GLUCOSE ONCE DAILY [...] hemoglobin A1c goal of less than 7.5% ([facility]) Take 1 Tablet by mouth [...] mRNA, LNP-s, No Pre serve, 2-Dose Series ([employer]) 04/23/2021,08/09/2020,07/12/2020 Covid-19, Mrna, Lnp-s, Pf, B ivalent, [...] or do you have serious difficulty hearing? Yes-CHEFORNAK; no hearing aids 01/09/2024 Are you blind [...] as of this encounter Progress Notes * Jessi Collier RPh - 01/15/2024 7:59 AM EDT Images from the original note were not included. Patient admitted to [facility] 01/08-01/13 due to near syncope and dysuria. Per inpatient pharmacist discharge instructions: Patient has been discharged to [facility]. Will check for discharge in 1 week. Jessi Collier PharmD, [facility] Clinical Pharmacist 01/15/2024, 9:57 AM documented in this encounter Plan of Treatment Upcoming Encounters Date Type Department Care Team (Late st Contact Info) Description 01/22/2024 5:50 PM EDT Anticoagulation Pharmacy, [place] [address] [address] Pharmacist2, [facility] [place] [address] [address] 01/25/2024 3:30 PM EDT Office Visit [facility] [address] [place] [address] Laney Hogue MD 200 [place] [address] 02/21/2024 10:30 AM EDT Office Visit Urology [place] [address] [facility] [address] [address] Nikolai Chaudhari MD [address] [place] [address] 02/25/2024 11:20 AM EDT Office Visit [facility], [place] [address] [phone] Kaiser Amanda MD [address] [address] 03/05/2024 1:00 PM EDT Appointment Cardiac Studies, [facility] [address] [place] [address] 03/26/2024 8:00 AM EST Hospital Encounter [facility], Operating Room, [facility] - 4th Floor [address] [facility] [place] [phone] John Gordillo MD [address] [address] 03/26/2024 8:00 AM EST - 03/26/2024 8:46 AM EST Surgery OR [facility], Operating Room, [facility] - 4th Floor [address] [facility] [place] [address] John Gordillo MD [address] [address] COLONOSCOPY FLEXIBLE PROXIMAL DIAGNOSTIC 04/01/2024 12:30 PM EST Office Visit Gastroenterology, [facility] [address] [facility] [place] [address] Thelma Jamil PA-C [address] [place] [address] 06/12/2024 2:00 PM EST Office Visit Cardiology, [place] [address] [facility] [place] [address] Clarissa Rapp PA-C [address] [place] [address] 10/21/2024 9:15 AM EDT Appointment Radiology, [facility] [address] [facility] [place] [address] 10/29/2024 9:45 AM EDT Office Visit Urology Aleida Rinaldi [place] [address] [facility] [address] [address] Bert Boogie Jr., MD [address] [place] [address] Scheduled Procedures Name Priority Associated Diagnoses Date/Ti [...] D LEVEL ONCE IN A LIFETIME-USE SMARTSET# 54259 Completed 07/26/2023, 02/26/2023, 01/23/2023, Additional history exists [...] this encounter Medical Devices Implanted Type Area Salvage Diver Device Identifier Shelf Expiration Date Model / Serial / Lot Cement Bone Simplex Hv & G - [id number] Implanted:Qty: 2 on 09/02/2020 by Gianni Hubbard MD at OR [facility] Right: Hip LUDY : ORTHOPAEDICS 08/11/2021 6195-1-010 / / [id number] Spacer Ring Aclde Distal Lg 14 - [id number] Implanted:Qty: 1 on 09/02/2020 by Gianni Hubbard MD at OR [facility] Right: Hip LUDY : ORTHOPAEDICS 11/25/2024 5616-9919 / / Accolade C Cs 127 6 37/158 - [id number] Implanted:Qty: 1 on 09/02/2020 by Gianni Hubbard MD at OR [facility] Right: Hip LUDY : ORTHOPAEDICS 05/29/2023 [id number] / / [id number] Hip Cocr Lfit Head V40 28/+4 - [id number] Implanted:Qty: 1 on 09/02/2020 by Gianni Hubbard MD at OR [facility] Right: Hip LUDY : ORTHOPAEDICS 11/15/2024 6260-9-228 / / [id number] Hip Head Bipol Uhr Uni 28x52 - [id number] Implanted:Qty: 1 on 09/02/2020 by Gianni Hubbard MD at OR [facility] Right: Hip LUDY : ORTHOPAEDICS 11/25/2024 UH1-52-28 / / [id number] Lens Intraoc 17.5 - [id number] - [id number] Implanted:Qty: 1 on 03/23/2022 by Rad Morgan MD at OR [facility] Left: Eye BAUSCH & LOMB 10/11/2026 [id number] / [id number] / [id number] Lens Intraoc 18.0 - [id number] - [id number] Implanted:Qty: 1 on 03/30/2022 by Rad Morgan MD at OR [facility] Right: Eye BAUSCH & LOMB 01/11/2027 [id number] / [id number] / [id number] documented as of this encounter Visit Diagnoses [...] Power of Attor jus? No Care Teams Smelter Charger Relationship Specialty Start Date End Date Kaiser Amanda MD [address] [address] PCP - General Family Medicine 04/11/21 documented as of this encounter
--- OUTSIDE RECORDS SUMMARY | 2024-01-29 20:33 | External Medical Summary ---
Author Name Unknown Address Unknown Organization K1F:[facility]ATORY [facility] - [address] [place] [address] Laboratory Report Ordering Provider Test Date Status NORY GOMEZ 01/11/2024 05:17:00 Final Observation Date Value Abnormality Reference (Units ) Status WBC, Total 01/11/2024 05:17:00 6.63 4.00-10.80 (K/uL) Final RBC 01/11/2024 05:17:00 3.75 4.50-5.25 (M/uL) Final Hemoglobin 01/11/2024 05:17:00 11.2 Below low normal 14.0-16.8 (g/dL) Final HCT 01/11/2024 05:17:00 34.6 Below low normal 40.0-48.4 (%) Final MCV 01/11/2024 05:17:00 92.3 82.0-99.5 (fL) Final MCH 01/11/2024 05:17:00 29.9 27.0-34.0 (pg) Final MCHC 01/11/2024 05:17:00 32.4 32.0-36.0 (g/dL) Final RDW 01/11/2024 05:17:00 15.1 11.5-15.5 (%) Final Platelets 01/11/2024 05:17:00 178 140-400 (K/uL) Final MPV 01/11/2024 05:17:00 9.2 6.6-11.1 (fL) Final Nucleated erythrocytes/100 leukocytes [Ratio] in Blood by Automated count 01/11/2024 05:17:00 0 <=0 (/100 WBCs) Final Performing Location [facility]ORY [facility] - [address] [place] [address]
--- OUTSIDE RECORDS SUMMARY | 2024-01-29 20:33 | External Medical Summary ---
Author Name Unknown Address Unknown Organization K1F:[facility] - [address] [place] [address] Laboratory Report Ordering Provider Test Date Status NORY GOMEZ 01/11/2024 05:17:00 Final Observation Date Value Abnormality Reference (Units ) Status Albumin 01/11/2024 05:17:00 3.1 Below low normal 3.8-5.0 (g/dL) Final AST (Aspartate aminotransferase) 01/11/2024 05:17:00 20 10-50 (U/L) Final Alk Phos 01/11/2024 05:17:00 44 35-130 (U/L) Final ALT (Alanine aminotransferase) 01/11/2024 05:17:00 17 10-50 (U/L) Final Bilirubin, Total 01/11/2024 05:17:00 0.4 <=1.2 (mg/dL) Final Bilirubin, Direct 01/11/2024 05:17:00 <0.2 0.0-0.3 (mg/dL) Final Protein 01/11/2024 05:17:00 5.5 Below low normal 6.0-8.3 (g/dL) Final Performing Location [facility] - [address] [place] [address]
--- OUTSIDE RECORDS SUMMARY | 2024-01-29 20:33 | External Medical Summary ---
Author Name Unknown Address Unknown Organization K09:[facility] [place] [address] Laboratory Report Ordering Provider Test Date Status HY,DEPAMPHILIS 01/15/2024 06:39:00 Final Observation Date Value Abnormality Reference (Units ) Status WBC, Total 01/15/2024 06:39:00 5.96 4.00-10.8 0 (K/uL) Final RBC 01/15/2024 06:39:00 4.12 4.50-5.25 (M/uL) Final Hemoglobin 01/15/2024 06:39:00 12.3 Below low normal 14 .0-16.8 (g/dL) Final HCT 01/15/2024 06:39:00 38.4 Below low normal 40. 0-48.4 (%) Final MCV 01/15/2024 06:39:00 93.2 82.0-99.5 (fL) Final MCH 01/15/2024 06:39:00 29.9 27.0-34.0 (pg) Final MCHC 01/15/2024 06:39:00 32.0 32.0-36.0 (g/dL) Final RDW 01/15/2024 06:39:00 15.8 11.5-15.5 (%) Final Platelets 01/15/2024 06:39:00 228 140-400 (K /uL) Final MPV 01/15/2024 06:39:00 9.2 6.6-11.1 ( fL) Final Performing Location [facility] [place] [address]
--- OUTSIDE RECORDS SUMMARY | 2024-01-29 20:33 | External Medical Summary ---
Author Name Unknown Address Unknown Organization K1F:[facility] - [address] [place] [address] Laboratory Report Ordering Provider Test Date Status ADONIS WHEATLEY 01/13/2024 04:01:00 Final Warfarin Therapy
INR: 2 .0-3.0 conventional anticoagulation
INR: 2.5- 3.5 high intensity anticoagulation Observation Date Value Abnormality Reference (Units ) Status PT 01/13/2024 04:01:00 21.9 Above high normal 11 .6-15.2 (seconds) Final INR 01/13/2024 04:01:00 1.9 Above high normal 0. 8-1.2 Final Performing Location [facility] - [address] [place] [address]
--- OUTSIDE RECORDS SUMMARY | 2024-01-29 20:33 | External Medical Summary | Summary of Care ---
Author Name Unknown Organization [facility] Address [address] [facility] [place] [address] Phone [phone] Care Team Providers Care Bridge Worker Name Role Phone Zaire Urias MD Primary Care Provider [phone] Reason for Visit * Reason Comments eRx-Medication Refill Encounter Details Date Type Department Care Team (Late st Contact Info) Description 01/12/[address] [facility] [address] [facility] [place] [phone] Zaire Urias MD [address] [place] [address] Allergies Active Allergy Reactions Criticality Noted Date Comments Cat Dander Itching 07/14/2016 documented as of this encounter (statuses as of 01/12/2024) Medications Medication Sig Dispensed Refills Start Date End Date Status metFORMIN HCl 1000 MG Oral Tablet (Glucophage) TAKE 1 TABLET BY MOUTH TWICE DAILY WITH BREAKFAST AND WITH DINNER 180 Tablet 01/12/20 24 Active UnblabTouch Ultra 2 w/Device KitIndications:Typ e 2 diabetes mellitus with hemoglobin A1c goal of less than 7.5% ([facility]LY [facility]) Testing blood sugars twice daily Dx: E11.9 1 Kit 11 06/06/19 22 Suspended Additional Information OneTouch Delica Lancets 30GIndications:Typ e 2 diabetes mellitus with hemoglobin A1c goal of less than 7.5% ([facility]),Type 2 diabetes mellitus with polyneuropathy ([facility]) Check BS once daily E11.9 100 Each 06/22/19 22 Suspended Additional Information Docusate Sodium 100 MG Oral Capsule (Colace) Take 1 Capsule (100 mg) by mouth in the morning and 1 Capsule (100 mg) before bedtime. 10 Capsule 04/18/20 22 Suspended Additional Information Patient not taking.Reported on 12/19/2023 Vitamin D 25 MCG (1000 UT) Oral Tablet Take 1 Tablet (1,000 Units) by mouth daily at noon. 30 Tablet 3 04/18/20 22 Suspended Additional Information Cinacalcet HCl 30 MG Oral Tablet (Sensipar)Indicati ons:Hypercalcemia Take 1 tablet by mouth once daily 90 Tablet 3 12/22/19 23 Suspended Additional Information Patient taking differently: 30 mg Oral Daily(AM), Reported on 10/07/2023 Iron 325 (65 Fe) MG Oral Tablet Take 1 Tablet by mouth every evening. 09/13/19 23 Suspended Hydrocortisone 2.5 % External Cream Apply to eyebrows twice daily for 3-5 days at a time as needed for flares 60 g 2 01/20/20 23 Suspended Additional Information OneTouch Verio In Vitro Strip (Glucose Blood)Indications: Type 2 diabetes mellitus with polyneuropathy ([facility]),Type 2 diabetes mellitus with hemoglobin A1c goal of less than 7.5% ([facility]) USE STRIP TO CHECK GLUCOSE ONCE DAILY 100 Strip 3 07/16/19 24 Suspended Additional Information metFORMIN HCl 1000 MG Oral Tablet (Glucophage) TAKE 1 TABLET BY MOUTH TWICE A DAY WITH BREAKFAST AND DINNER 180 Tablet 1 07/21/19 24 024 Discontinued Nitroglycerin 0.4 MG Sublingual Tablet Sublingual (Nitrostat)Indicat ions:Stable angina (FORMERLY [facility]) Place 1 Tablet under the tongue every 5 minutes as needed for Pain, Chest. 25 Tablet 07/26/19 24 Suspended Additional Information Omeprazole 20 MG Oral Capsule Delayed Release (PriLOSEC)Indicati ons:Gastroesophage al reflux disease, unspecified whether esophagitis present Take 1 Capsule by mouth in the morning. 1 hour before the first meal of the day. 30 Capsule 5 07/26/19 24 Suspended Additional Information Atorvastatin Calcium 40 MG Oral Tablet (Lipitor)Indicatio ns:Hyperlipidemia with target LDL less than 100 Take 1 Tablet by mouth in the morning. 90 Tablet 3 08/14/19 24 Suspended Additional Information Ondansetron 4 MG Oral Tablet Disintegrating (Zofran)Indication s:Nausea and vomiting, unspecified vomiting type Place 1 Tablet on tongue every 8 hours as needed for Nausea. dissolve on tongue. 20 Tablet 10/17/19 24 Suspended Additional Information Ketoconazole 2 % External Shampoo (Nizoral) APPLY TO SCALP AND EYEBROWS DAILY- LATHER, WAIT 5 MINUTES, THEN RINSE 120 mL 1 10/25/19 24 Suspended Additional Information Metoprolol Succinate ER 25 MG Oral Tablet Extended Release 24 Hour (toPROL XL) Take 0.5 Tablets by mouth every night at bedtime. 15 Tablet 5 10/29/19 24 Suspended Additional Information Finasteride 5 MG Oral Tablet (Proscar)Indicatio ns:BPH with obstruction/lower urinary tract symptoms Take 1 Tablet by mouth in the morning. 90 Tablet 3 11/12/19 24 Suspended Additional Information Triamcinolone Acetonide 0.1 % External Cream (Aristocort) Apply to rash on abdomen twice daily as needed 80 g 5 11/23/19 24 Suspended Additional Information Warfarin Sodium 5 MG Oral Tablet (Coumadin) Take 1 Tablet by mouth every evening. Or as directed by anticoagulation clinic 90 Tablet 3 11/28/19 24 Suspended Additional Information Midodrine HCl 5 MG Oral Tablet (Proamatine)Indica tions:Orthostatic hypotension Take 1 Tablet by mouth in the morning and 1 Tablet at noon and 1 Tablet in the evening. Do not take at bedtime.. 270 Tablet 3 12/11/19 24 Suspended Additional Information AZO Cranberry 250-30 MG Oral Tablet Take by mouth every evening. Suspended Metamucil 48.57 % Oral Powder (Psyllium) Take by mouth every evening. Suspended DULoxetine HCl 60 MG Oral Capsule Delayed Release Particles (Cymbalta)Indicati ons:Depression with anxiety Take 1 capsule by mouth in the morning 90 Capsule 3 12/27/19 24 Suspended Additional Information glipiZIDE ER 5 MG Oral Tablet Extended Release 24 Hour (glipiZIDE XL)Indications:Typ e 2 diabetes mellitus with hemoglobin A1c goal of less than 7.5% ([facility]) Take 1 Tablet by mouth in the morning. With breakfast.. 90 Tablet 3 01/04/20 24 Suspended Additional Information Metoclopramide HCl 5 MG Oral Tablet (Reglan)Indication s:Nausea and vomiting, unspecified vomiting type Take 1 Tablet by mouth in the morning and 1 Tablet at noon and 1 Tablet before bedtime. 30 minutes before meals. 90 Tablet 5 01/04/20 24 Suspended Additional Information Polyethylene Glycol 3350 17 GM Oral Packet (MiraLax) Take 1 Packet by mouth every other day. Suspended documented as of this encounter (statuses as of 01/12/2024) Active Problems Problem Noted Date Diagnosed Date [...] as of this encounter (statuses as of 01/12/2024) Resolved Problems Problem Noted Date Diagnosed Date [...] as of this encounter (statuses as of 01/12/2024) Immunizations Name Administration Dates Next Due COVID-19 mRNA, LNP-s, No Pre serve, 2-Dose Series (u.sit) 04/23/2021,08/09/2020,07/12/2020 Covid-19, Mrna, Lnp-s, Pf, B ivalent, 30 Mcg, IM, 12 yrs and above (Pfizer) 05/19/2022 Pneumococcal Conjugate Vacc, 13 Valent (Prevnar) 02/23/2016 Pneumococcal Polysaccharide PPV23 (Pneumovax) 05/22/2017,09/25/2011 RSV Vac., Bivalent, Perfusio n F, Pf,0.5 Ml (Abrysvo) 04/10/2023 Season Influenza, Quad, PF, Adjuvanted, 65+ Yrs, IM (FLUAD) 03/11/2020 Seasonal Influenza, PF, 6 M & above, [...] or do you have serious difficulty hearing? Yes-[place]; no hearing aids 01/09/2024 Are you blind [...] encounter Miscellaneous Notes * Telephone Encounter - Amauri Gonzalez [facility] - 01/12/2024 7:53 AM EDT Signed Prescriptions: Disp Refills metFORMIN HCl 1000 MG Oral Tablet (Glucoph*180 Ta*0 Sig: TAKE 1TABLET BY MOUTH TWICE DAILY WITH BREAKFAST AND WITH DINNERAuthorizing Provider: ZAIRE URIAS User: AMAURI GONZALEZ --- documented in this encounter Plan of Treatment Upcoming Encounters Date Type Department Care Team (Late st Contact Info) Description 01/15/2024 5:50 PM EDT Anticoagulation Pharmacy, [place] [address] [place] [address] Pharmacist2, [facility] [place] [address] [place] [address] 01/25/2024 3:30 PM EDT Office Visit MOHS Surgery [facility] [address] [place] [address] Laney Hogue MD [address] [place] [address] 02/21/2024 10:30 AM EDT Office Visit Urology [place] [address] [facility] [address] [place] [address] Nikolai Chaudhari MD [address] [place] [address] 02/25/2024 11:20 AM EDT Office Visit Family [facility], [place] [address] [phone] Zaire Urias MD [address] [place] [address] 03/05/2024 1:00 PM EDT Appointment Cardiac Studies, [address] [place] [address] 03/26/2024 8:00 AM EST Hospital Encounter OR [facility], Operating Room, [facility] - 4th Floor [address] [facility] [id number] John Gordillo MD [address] [place] [address] 03/26/2024 8:00 AM EST - 03/26/2024 8:46 AM EST Surgery OR GL, Operating Room, [facility] - 4th Floor [address] [facility] [phone] John Gordillo MD [address] [place] [address] COLONOSCOPY FLEXIBLE PROXIMAL DIAGNOSTIC 04/01/2024 12:30 PM EST Office Visit Gastroenterology, [facility] [address] [facility] [place] [address] Thelma Jamil PA-C [address] [facility] [place] [address] 06/12/2024 2:00 PM EST Office Visit Cardiology, [place] [address] [facility] [place] [address] Clarissa Rapp PA-C [address] [facility] [place] [address] 10/21/2024 9:15 AM EDT Appointment Radiology, [facility] [address] [facility] [place] [address] 10/29/2024 9:45 AM EDT Office Visit Urology Michael [place] [address] [email or web address] [address] [place] [address] Bert Boogie Jr., MD [address] [place] [address] Scheduled Procedures Name Priority Associated Diagnoses Date/Ti [...] Fecal Occult Blood Test 11/28/1995 Sigmoidoscopy 11/28/1995 COVID-19 Vaccine ( season) 2023 05/19/2022, 04/23/2021, 08/09/2020, Additional history exists Adult Wellness Visit 09/28/2023 09/27/2022 Diabetic Eye Exam 12/22/2023 12/21/2022, , 12/21/2022, Additional history exists HOME BP CUFF VALIDATION YEARLY 12/27/2023 12/26/2022 Influenza Vaccine (FLU shot) (#1) 2024 02/14/2023, 03/16/2022, 02/25/2021, Additional history exists HbA1c 05/09/2024 11/08/2023, 07/12, 01/23/2023, Additional history exists B-12 07/25/2024 07/26/2023, 02/13, 11/15/2021, Additional history exists Diabetic Foot Exam 07/25/2024 07/26/2023, 0 06/09/2022, 04/11/2021, Additional history exists Depression Monitoring 10/14/2024 10/15/2023 Albumin/Creatinine Ratio 10/17/2024 024, 01/10/2023, 07/07/2021, Additional history exists GFR 01/10/2025 01/11/2024, 082 01/2024, 01/09/2024, Additional history exists DXA Scan 01/25/2025 01/25/2023, 01/2021, 12/10/2018 Colonoscopy 03/16/2025 03/16/2022, 1107/2021, 08/06/2009 Colorectal Cancer Screening 03/16/2025 Lipid Panel 02/27/2028 02/26/2023, 1208/2021, 05/26/2021, Additional history exists DTap/Tdap Vaccines (3 - Td or Tdap) 12/10/2029 12/11/2019, 06/03/2014 Pneumococcal Vaccine: 65+ Years Completed 05/22/2017, 02/23/2016, 09/25/2011 Zoster Vaccines Completed 03/26/2019, 12/12, 09/27/2011 VITAMIN D LEVEL ONCE IN A LIFETIME-USE SMARTSET# [id number] Completed 07/26/2023, 02/26/2023, 01/23/2023, Additional history exists HPV (Gardasil) Vaccine Aged Out No lo nger eligible based on patient's age to complete this topic Hepatitis B Vaccine Aged Out No longe r eligible based on patient's age to complete this topic MENINGOCOCCAL (MENACTRA/MENVEO) Aged Out No longer eligible based on patient's age to complete this topic documented as of this encounter Medical Devices Implanted Type Area Paperhanger Pipe Device Identifier Shelf Expiration Date Model / Serial / Lot Cement Bone Simplex Hv & G - [id number] Implanted:Qty: 2 on 09/02/2020 by Gianni Hubbard MD at OR [facility] Right: Hip LUDY : ORTH[employer] 08/11/2021 [id number] / / [id number] Spacer Ring Aclde Distal Lg 14 - [id number] Implanted:Qty: 1 on 09/02/2020 by Gianni Hubbard MD at OR [facility] Right: Hip [employer] : ORTH[employer] 11/25/2024 [id number] / / Accolade C Cs 127 6 37/158 - [id number] Implanted:Qty: 1 on 09/02/2020 by Gianni Hubbard MD at OR [facility] Right: Hip [employer] : ORTHOPAED[employer] 05/29/2023 [id number] / / [id number] Hip Cocr Lfit Head V40 28/+4 - [id number] Implanted:Qty: 1 on 09/02/2020 by Gianni Hubbard MD at OR [facility] Right: Hip [employer] : ORTHOPAED[employer] 11/15/2024 [id number] / / [id number] Hip Head Bipol Uhr Uni 28x52 - [id number] Implanted:Qty: 1 on 09/02/2020 by Gianni Hubbard MD at OR [facility] Right: Hip [employer] : ORTHOPAED[employer] 11/25/2024 [id number] / / [id number] Lens Intraoc 17.5 - [id number] - [id number] Implanted:Qty: 1 on 03/23/2022 by Rad Morgan MD at OR [facility] Left: Eye [employer] 10/11/2026 [id number] / [id number] / [id number] Lens Intraoc 18.0 - [id number] - [id number] Implanted:Qty: 1 on 03/30/2022 by Rad Morgan MD at OR [facility] Right: Eye [employer]OM[employer] 01/11/2027 [id number] / [id number] / [id number] documented as of this encounter Additional Health Concerns Infection Onset Date Last Indicated Resolved Time Gastrointestinal Rule-Out 12/09/2023 01/09/2024 documented as of this encounter Advance Directives * Full Code (Latest Code Status on File) Date Activated Date Inactivated Comments 01/09/2024 1:29 PM This order ref lects the patients wishes and were consensually agreed [...] Power of Attor jus? No Care Teams Bridge Worker Relationship Specialty Start Date End Date Zaire Urias MD [address] [place] [address] PCP - General Family Medicine 04/11/21 documented as of this encounter
--- OUTSIDE RECORDS SUMMARY | 2024-01-29 20:33 | External Medical Summary ---
Author Name Unknown Address Unknown Organization : Laboratory Report Ordering Provider Test Date Status NORY GOMEZ 01/13/2024 16:35:33 Final Observation Date Value Abnormality Reference (Units ) Status Glucose Point of Care 01/13/2024 16:35:33 241 Above high normal 70-120 (mg/dL) Final Performing Location
--- OUTSIDE RECORDS SUMMARY | 2024-01-29 20:33 | External Medical Summary ---
Author Name Unknown Address Unknown Organization : Laboratory Report Ordering Provider Test Date Status NORY GOMEZ 01/14/2024 07:47:51 Final Observation Date Value Abnormality Reference (Units ) Status Glucose Point of Care 01/14/2024 07:47:51 138 Above high normal 70-120 (mg/dL) Final Performing Location
--- OUTSIDE RECORDS SUMMARY | 2024-01-29 20:33 | External Medical Summary ---
Author Name Unknown Address Unknown Organization : Laboratory Report Ordering Provider Test Date Status NORY GOMEZ 01/13/2024 11:38:42 Final Observation Date Value Abnormality Reference (Units ) Status Glucose Point of Care 01/13/2024 11:38:42 206 Above high normal 70-120 (mg/dL) Final Performing Location
--- OUTSIDE RECORDS SUMMARY | 2024-01-29 20:33 | External Medical Summary ---
Author Name Unknown Address Unknown Organization : Laboratory Report Ordering Provider Test Date Status NORY GOMEZ 01/10/2024 16:19:00 Final Observation Date Value Abnormality Reference (Units ) Status Glucose Point of Care 01/10/2024 16:19:00 185 Above high normal 70-120 (mg/dL) Final Performing Location
--- OUTSIDE RECORDS SUMMARY | 2024-01-29 20:33 | External Medical Summary ---
Author Name Unknown Address Unknown Organization [id number]:LABORATORY [facility] - [address] [place] [address] Laboratory Report Ordering Provider Test Date Status ADONIS WHEATLEY 01/14/2024 05:14:00 Final Warfarin Therapy
INR: 2 .0-3.0 conventional anticoagulation
INR: 2.5- 3.5 high intensity anticoagulation Observation Date Value Abnormality Reference (Units ) Status PT 01/14/2024 05:14:00 20.9 Above high normal 11 .6-15.2 (seconds) Final INR 01/14/2024 05:14:00 1.8 Above high normal 0. 8-1.2 Final Performing Location [facility] - [address] [place] [address]
--- OUTSIDE RECORDS SUMMARY | 2024-01-29 20:33 | External Medical Summary ---
Author Name Unknown Address Unknown Organization : Laboratory Report Ordering Provider Test Date Status NORY GOMEZ 01/12/2024 07:46:45 Final Observation Date Value Abnormality Reference (Units ) Status Glucose Point of Care 01/12/2024 07:46:45 113 70-120 (mg/dL) Final Performing Location
--- OUTSIDE RECORDS SUMMARY | 2024-01-29 20:33 | External Medical Summary | Summary of Care ---
Author Name Unknown Organization [facility] Address [address] [facility] [place] [address] Phone [phone] Care Team Providers Care Machine Specialist Name Role Phone Zaire Urias MD Primary Care Provider [phone] Reason for Visit * Reason Onset Date Comments Hospital Follow-Up 11/08/2023 Encounter Details Date Type Department Care Team (Late st Contact Info) Description [facility] [place] [address] Zaire Urias MD [address] [place] [address] Hospital Follow-Up Allergies Active Allergy Reactions Criticality Noted Date Comments Cat Dander Itching 07/14/2016 documented as of this encounter (statuses as of 01/12/2024) Medications Medication Sig Dispensed Refills Start Date End Date Status MediaLABTouch Ultra 2 w/Device KitIndications:Type 2 diabetes mellitus with hemoglobin A1c goal of less than 7.5% ([facility]) Testing blood sugars twice daily Dx: E11.9 1 Kit 11 06/06/2021 Suspended Additional Information OneTouch [place]ory Lancets 30GIndications:Type 2 diabetes mellitus with hemoglobin A1c goal of less than 7.5% (HCC),Type 2 diabetes mellitus with polyneuropathy (HCC) Check BS once daily E11.9 100 Each 06/22/2021 Suspended Additional Information Docusate Sodium 100 MG Oral Capsule (Colace) Take 1 Capsule (100 mg) by mouth in the morning and 1 Capsule (100 mg) before bedtime. 10 Capsule 04/18/2022 Suspended Additional Information Patient not taking.Reported on 12/19/2023 Vitamin D 25 MCG (1000 UT) Oral Tablet Take 1 Tablet (1,000 Units) by mouth daily at noon. 30 Tablet 3 04/18/2022 Suspended Additional Information Cinacalcet HCl 30 MG Oral Tablet (Sensipar)Indicatio ns:Hypercalcemia Take 1 tablet by mouth once daily 90 Tablet 3 12/21/2022 Suspended Additional Information Patient taking differently: 30 mg Oral Daily(AM), Reported on 10/07/2023 Iron 325 (65 Fe) MG Oral Tablet Take 1 Tablet by mouth every evening. 09/12/2022 Suspended Hydrocortisone 2.5 % External Cream Apply to eyebrows twice daily for 3-5 days at a time as needed for flares 60 g 2 01/19/2023 Suspended Additional Information OneTouch [employer] In Vitro Strip (Glucose Blood)Indications:T ype 2 diabetes mellitus with polyneuropathy ([facility]),Type 2 diabetes mellitus with hemoglobin A1c goal of less than 7.5% ([facility]) USE STRIP TO CHECK GLUCOSE ONCE DAILY 100 Strip 3 07/16/2023 Suspended Additional Information Nitroglycerin 0.4 MG Sublingual Tablet Sublingual (Nitrostat)Indicati ons:Stable angina (HCC) Place 1 Tablet under the tongue every 5 minutes as needed for Pain, Chest. 25 Tablet 07/26/2023 Suspended Additional Information Omeprazole 20 MG Oral Capsule Delayed Release (PriLOSEC)Indicatio ns:Gastroesophageal reflux disease, unspecified whether esophagitis present Take 1 Capsule by mouth in the morning. 1 hour before the first meal of the day. 30 Capsule 5 07/26/2023 Suspended Additional Information Atorvastatin Calcium 40 MG Oral Tablet (Lipitor)Indication s:Hyperlipidemia with target LDL less than 100 Take 1 Tablet by mouth in the morning. 90 Tablet 3 08/14/2023 Suspended Additional Information Ondansetron 4 MG Oral Tablet Disintegrating (Zofran)Indications :Nausea and vomiting, unspecified vomiting type Place 1 Tablet on tongue every 8 hours as needed for Nausea. dissolve on tongue. 20 Tablet 10/17/2023 Suspended Additional Information Ketoconazole 2 % External Shampoo (Nizoral) APPLY TO SCALP AND EYEBROWS DAILY- LATHER, WAIT 5 MINUTES, THEN RINSE 120 mL 1 10/25/2023 Suspended Additional Information Metoprolol Succinate ER 25 MG Oral Tablet Extended Release 24 Hour (toPROL XL) Take 0.5 Tablets by mouth every night at bedtime. 15 Tablet 5 10/29/2023 Suspended Additional Information documented as of this encounter (statuses as [...] mRNA, LNP-s, No Pre serve, 2-Dose Series ([employer]) 04/23/2021,08/09/2020,07/12/2020 Covid-19, Mrna, Lnp-s, Pf, B ivalent, 30 Mcg, IM, 12 yrs and above ([employer]) 05/19/2022 Pneumococcal Conjugate Vacc, 13 Valent (Prevnar) [...] Tobacco: Never Alcohol Use Standard Drinks/Week Comments Yes 0 (1 standard drink = 0.6 oz [...] deaf or do you have serious difficulty h earing? No-OMAHA 11/07/2023 Are you blind or do you have serious difficulty seeing, even when wearing glasses? No 11/07/2023 Do you have serious difficul ty walking or climbing stairs? (5 years old or older) Yes 11/07/2023 Do you have difficulty dress ing or bathing? (5 years old or older) Yes 11/07/2023 Because of a physical, menta l, or emotional condition, do you have difficulty doing errands alone such as visiting a doctor s office or shopping? (15 years old or older) Yes 11/07/19 Cognitive Status Response Date of Assessm ent Because of a physical, menta l, or emotional condition, do you have serious difficulty concentrating, remembering, or making decisions? (5 years old or older) No 11/07/2023 documented as of this encounter Miscellaneous Notes * Telephone Encounter - Leonarda uHghes OSA - 11/08/2023 1:02 PM EDT Patient Name: BALDEMAR ALARCON([id number]) Sex: Male : 1950 PCP: ZAIRE URIAS Center: [facility] Types of orders made on 11/08/2023: IP Post Discharge , Lab, Medications, Nursing, Point of Care Testing, Point of Care Test ing - Unsolicited Results Order Date:11/08/2023 Ordering User:CESARIO LANDEROS [[id number]] Attending Provider:Mamadou Clarke MD [[id number]] Authorizing Provider: Cesario Landeros MD [[id number]] Department:[address] [place] [address][[id number]] Order Specific Information Order: RETURN APPT [CUSTOM: [id number]] Order #: [id number]: 1 Priority: Routine Class: Nursing Unit Department (Si ngle Entry) -> Family Practice Appt Needed Within: (Specify # of Days, Weeks, Months) -> 1 Wk Released on: 11/08/2023 10:59 AM Priority: Routine Class: Nursing Unit Department (Single Entry) -> Family Practice Appt Needed Within: (Specify # of Days, Weeks, Months) -> 1 Wk Released on: 11/08/2023 10:59 AM documented in this encounter Plan of Treatment Upcoming Encounters Date Type Department Care Team (Late st Contact Info) Description 01/15/2024 5:50 PM EDT Anticoagulation Pharmacy, [place] [address] Pharmacist2, [facility] [place] [address] 01/25/2024 3:30 PM EDT [facility] [address] [place] [address] Laney Hogue MD 200 [place] [address] 02/21/2024 10:30 AM EDT Office Visit Urology Rolo Colon [address] [facility] [address] [place] [address] Nikolai Chaudhari MD [place] [address] 02/25/2024 11:20 AM EDT Office Visit [facility] [address] [facility] [place] [phone] Zaire Urias MD 21 [facility] [place] [address] 03/05/2024 1:00 PM EDT Appointment [address] Studies, [address] [place] [address] 03/26/2024 8:00 AM EST Hospital Encounter OR [facility], Operating Room, [facility] - 4th Floor [address] [facility] [place] [address] John Gordillo MD [address] [place] [address] 03/26/2024 8:00 AM EST - 03/26/2024 8:46 AM EST Surgery OR [facility], Operating Room, [facility] - 4th Floor [address] [facility] [place] [address] John Gordillo MD [address] [place] [address] COLONOSCOPY FLEXIBLE PROXIMAL DIAGNOSTIC 04/01/2024 12:30 PM EST Office Visit [facility]astroenterology, [facility] [address] [facility] [phone] Thelma Jamil PA-C [address] [place] [address] [place] [address] 06/12/2024 2:00 PM EST Office Visit Cardiology, [place] [address] [facility] [place] [address] Clarissa Rapp PA-C 400 [facility] [place] [address] 10/21/2024 9:15 AM EDT Appointment Radiology, [facility] [address] [place] [address] 10/29/2024 9:45 AM EDT Office Visit Urology Rolo Colon Aleida Cipriano [place] [address] [place] [address] Bert Boogie Jr., MD 27 [place] [address] Scheduled Procedures Name Priority Associated Diagnoses Date/Ti [...] D LEVEL ONCE IN A LIFETIME-USE SMARTSET# 12733 Completed 07/26/2023, 02/26/2023, 01/23/2023, Additional history exists [...] this encounter Medical Devices Implanted Type Area Certified First Assistant Device Identifier Shelf Expiration Date Model / Serial / Lot Cement Bone Simplex Hv & G - [id number] Implanted:Qty: 2 on 09/02/2020 by Gianni Hubbard MD at OR [facility] Right: Hip LUDY : ORTHOPAEDICS 08/11/2021 6195-1-010 / / [id number] Spacer Ring Aclde Distal Lg 14 - [id number] Implanted:Qty: 1 on 09/02/2020 by Gianni Hubbard MD at OR [facility] Right: Hip LUDY : ORTHOPAEDICS 11/25/2024 [id number] / / Accolade C Cs 127 6 37/158 - [id number] Implanted:Qty: 1 on 09/02/2020 by Gianni Hubbard MD at OR [facility] Right: Hip LUDY : ORTHOPAEDICS 05/29/2023 [id number] / / [id number] Hip Cocr Lfit Head V40 28/+4 - [id number] Implanted:Qty: 1 on 09/02/2020 by Gianni Hubbard MD at OR [facility] Right: Hip LUDY : ORTHOPAEDICS 11/15/2024 6260-9-228 / / [id number] Hip Head Bipol Uhr Uni 28x52 - [id number] Implanted:Qty: 1 on 09/02/2020 by Gianni Hubbard MD at OR [facility] Right: Hip LUDY : ORTHOPAEDICS 11/25/2024 UH1-52-28 / / [id number] Lens Intraoc 17.5 - [id number] - [id number] Implanted:Qty: 1 on 03/23/2022 by Rad Morgan MD at OR [facility] Left: Eye [employer]CH [employer]OM[employer] 10/11/2026 [id number] / [id number] / [id number] Lens Intraoc 18.0 - [id number] - [id number] Implanted:Qty: 1 on 03/30/2022 by Rad Morgan MD at OR [facility] Right: Eye BAUSCH & LOMB 01/11/2027 [id number] / [id number] / [id number] documented as of this encounter Additional Health Concerns Infection Onset Date Last Indicated Resolved Time C. difficile Rule-Out Comment:Rule out auto after 36 hours 12/09/2023 12/09/2023 12/14/2023 2:48 PM E DT Gastrointestinal Rule-Out 12/09/2023 01/09/2024 C. difficile Rule-Out [...] Power of Attor jus? No Care Teams Machine Specialist Relationship Specialty Start Date End Date Zaire Urias MD 21 [place] [address] PCP - General Family Medicine 04/11/21 documented as of this encounter
--- OUTSIDE RECORDS SUMMARY | 2024-01-29 20:33 | External Medical Summary | Summary of Care ---
Author Name Unknown Organization [facility] Address [address] [facility] [place] [address] Phone [phone] Care Team Providers Care Inspector Experimental Assembly Name Role Phone Kaiser Amanda MD Primary Care Provider [phone] Reason for Visit * Reason Onset Date Comments Home Health 10/15/2023 FYI 10/15/2023 Encounter Details Date Type Department Care Team (Late st Contact Info) Description 10/15/2023 Telephone [facility] Rolo Chacko 21 [facility] [place] [address] Kaiser Amanda MD 21 [facility] [place] [address] Home Health; Allergies Active Allergy Reactions Criticality Noted Date Comments Cat Dander Itching 07/14/2016 documented as of this encounter (statuses as of 01/14/2024) Medications Medication Sig Dispensed Refills Start Date End Date Status CritiTechTouch Ultra 2 w/Device KitIndications:Type 2 diabetes mellitus with hemoglobin A1c goal of less than 7.5% ([facility]) Testing blood sugars twice daily Dx: E11.9 [...] Active Cinacalcet HCl 30 MG Oral Tablet (Sensipar)Indication s:Hypercalcemia Take 1 tablet by mouth once daily [...] Active OneTouch Verio In Vitro Strip (Glucose Blood)Indications: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 ([facility]),Type 2 diabetes mellitus with hemoglobin A1c goal of less than 7.5% ([facility]) USE STRIP TO CHECK GLUCOSE ONCE DAILY 100 Strip 3 07/16/2023 Active Nitroglycerin 0.4 MG Sublingual Tablet Sublingual (Nitrostat)Indicatio ns:Stable angina ([facility]) Place 1 Tablet under the tongue every 5 minutes as needed for Pain, Chest. 25 Tablet 07/26/2023 Active Omeprazole 20 MG Oral Capsule Delayed Release (PriLOSEC)Indication s:Gastroesophageal reflux disease, unspecified whether esophagitis present Take 1 Capsule by mouth in the morning. 1 hour before the first meal of the day. 30 Capsule 5 07/26/2023 Active Atorvastatin Calcium 40 MG Oral Tablet (Lipitor)Indications :Hyperlipidemia with target LDL less than 100 Take 1 Tablet by mouth in the morning. 90 Tablet 3 08/14/2023 Active documented as of this encounter (statuses as of 01/14/2024) Active Problems Problem Noted Date Diagnosed Date [...] as of this encounter (statuses as of 01/14/2024) Resolved Problems Problem Noted Date Diagnosed Date [...] as of this encounter (statuses as of 01/14/2024) Immunizations Name Administration Dates Next Due COVID-19 [...] Packs/Day Years Used Date Smoking Tobacco: Never Smokeless Tobacco: Never Alcohol Use Standard [...] do you have serious difficulty h earing? No 10/07/2023 Are you blind or do you have serious difficulty seeing, even when wearing glasses? No 10/07/2023 Do you have serious difficul ty walking or climbing stairs? (5 years old or older) Yes 10/07/2023 Do you have difficulty dress ing or bathing? (5 years old or older) Yes 10/07/2023 Because of a physical, menta l, or emotional condition, do you have difficulty doing errands alone such as visiting a doctor s office or shopping? (15 years old or older) Yes 10/07/19 Cognitive Status Response Date of Assessm ent Because of a physical, menta l, or emotional condition, do you have serious difficulty concentrating, remembering, or making decisions? (5 years old or older) No 10/07/2023 documented as of this encounter Miscellaneous Notes * Telephone Encounter - Marta Zamorano LPN - 10/15/2023 3:13 PM EDT PT/OT/ST [place] Start of Care/Continuation Sylvie PERALES, Calling from: Mario PERALES Plan of care continuation: 2 times per week for 3 weeks: Then 1 times a week for 1 weeks Focusing on: ADL's functional mobility, strengthening Concerns: yes Not feeling well Symptoms: diarrhea- frequency unknown and dehydration Vitals: WNL. Unable to give because of driving. Narrative: ANGELLA Mercer calling from Mario REID. Patient had diarrhea yesterday. Not drinking. She convinced him he had to drink to stay out of the hospital. He drank a whole glass of water and startedeating crackers. He did not have diarrhea today. Nurse will check on him today or tomorrow. He has a doctors appt. On Sunday Call back Sylvie with any advice or orders at [phone] Advised that additional visit orders will be signed by Kaiser Amanda Md and to fax to the office for signature documented in this encounter Plan of Treatment Upcoming Encounters Date Type Department Care Team (Late st Contact Info) Description 01/15/2024 5:50 PM EDT Anticoagulation Pharmacy, [place] [address] [place] [address] Pharmacist2, [facility] [place] [address] [place] [address] 01/25/2024 3:30 PM EDT Office Visit [facility] Surgery [facility] 200 [place] [address] Laney Hogue MD 200 [place] [address] 02/21/2024 10:30 AM EDT Office Visit Urology [place] [address] Cipriano [facility] [address] [place] [address] Nikolai Chaudhari MD [address] [place] [address] 02/25/2024 11:20 AM EDT Office Visit [facility] [address] [place] [phone] Kaiser Amanda MD 21 [place] [address] 03/05/2024 1:00 PM EDT Appointment Cardiac Studies, [facility] [address] [place] [address] 03/26/2024 8:00 AM EST Hospital Encounter [facility], Operating Room, [facility] - 4th Floor 400 [facility] [place] [phone] John Gordillo MD [address] [place] [address] 03/26/2024 8:00 AM EST - 03/26/2024 8:46 AM EST Surgery [facility], Operating Room, [facility] - 4th Floor [address] [facility] [address] John Gordillo MD [address] [place] [address] COLONOSCOPY FLEXIBLE PROXIMAL DIAGNOSTIC 04/01/2024 12:30 PM EST Office Visit Gastroenterology, [facility] [address] [place] [address] Thelma Jamil PA-C 310 [place] [address] 06/12/2024 2:00 PM EST Office Visit Cardiology, [place] [address] [facility] [place] [address] Clarissa Rapp PA-C 400 [place] [address] 10/21/2024 9:15 AM EDT Appointment Radiology, [facility] [address] [facility] [address] 10/29/2024 9:45 AM EDT Office Visit Urology Aleida Rinaldi [place] [address] [facility] [address] [place] [address] Bert Boogie Jr., MD [address] [place] [address] Scheduled Procedures Name Priority Associated Diagnoses Date/Ti [...] Additional history exists DXA Scan 01/25/2025 01/25/2023, 0901/2021, 12/10/2018 Colonoscopy 03/16/2025 03/16/2022, 1107/2021, 08/06/2009 Colorectal Cancer Screening 03/16/2025 Lipid Panel 02/27/2028 02/26/2023, 12/0 08/2021, 05/26/2021, Additional history exists DTap/Tdap Vaccines (3 - Td or Tdap) 12/10/2029 12/11/2019, 06/03/2014 Pneumococcal Vaccine: 65+ Years Completed 05/22/2017, 02/23/2016, 09/25/2011 Zoster Vaccines Completed 03/26/2019, 12/12, 09/27/2011 VITAMIN D LEVEL ONCE IN A LIFETIME-USE SMARTSET# 41825 Completed 07/26/2023, 02/26/2023, 01/23/2023, Additional history exists [...] this encounter Medical Devices Implanted Type Area Emt Basic Device Identifier Shelf Expiration Date Model / Serial / Lot Cement Bone Simplex Hv & G - [id number] Implanted:Qty: 2 on 09/02/2020 by Gianni Hubbard MD at OR [facility] Right: Hip LUDY : ORTHOPAEDICS 08/11/2021 6195-1-010 / / [id number] Spacer Ring Aclde Distal Lg 14 - [id number] Implanted:Qty: 1 on 09/02/2020 by Gianni Hubbard MD at OR [facility] Right: Hip LUDY : ORTHOPAEDICS 11/25/2024 9602-5669 / / Accolade C Cs 127 6 37/158 - [id number] Implanted:Qty: 1 on 09/02/2020 by Gianni Hubbard MD at OR [facility] Right: Hip LUDY : ORTHOPAEDICS 05/29/2023 6057-0637D / / [id number] Hip Cocr Lfit Head V40 28/+4 - [id number] Implanted:Qty: 1 on 09/02/2020 by Gianni Hubbard MD at OR [facility] Right: Hip LUDY : ORTHOPAEDICS 11/15/2024 6260-9-228 / / [id number] Hip Head Bipol Uhr Uni 28x52 - [id number] Implanted:Qty: 1 on 09/02/2020 by Gianni Hubbard MD at OR [facility] Right: Hip LUDY : ORTHOPAEDICS 11/25/2024 UH1-52-28 / / [id number] Lens Intraoc 17.5 - [id number] - [id number] Implanted:Qty: 1 on 03/23/2022 by Rad Morgan MD at OR [facility] Left: Eye BAUSCH & [employer]OMB 10/11/2026 [id number] / [id number] / [id number] Lens Intraoc 18.0 - [id number] - [id number] Implanted:Qty: 1 on 03/30/2022 by Rad Morgan MD at OR [facility] Right: Eye BAUSCH & LOMB 01/11/2027 [id number] / [id number] / [id number] documented as of this encounter Additional Health Concerns Infection Onset Date Last Indicated Resolved Time C. difficile Rule-Out 10/19/2023 10/19/20232023 7:47 PM EDT C. difficile Rule-Out Comment:Rule out auto after [...] Power of Attor jus? No Care Teams Inspector Experimental Assembly Relationship Specialty Start Date End Date Kaiser Amanda MD 21 [place] [id number] PCP - General Family Medicine 04/11/21 documented as of this encounter
--- OUTSIDE RECORDS SUMMARY | 2024-01-29 20:33 | External Medical Summary | Summary of Care ---
Author Name Unknown Organization [facility] Address [address] [place] [address] Phone [phone] Care Team Providers Care Inclusion Internship Name Role Phone Kaiser Amanda MD Primary Care Provider [phone] Reason for Visit * Reason Comments Status Check * Auth/Cert Specialty Diagnoses / Procedures Referred By Contac t Referred To Contact [facility] [address] [place] [address] Phone: [phone] Emergency Medicine [address] [place] [address] Referral ID Status Reason Start Date Expiration Date Visits Re quested Visits Authorized [id number] Encounter Details Date Type Department Care Team (Late st Contact Info) Description 01/11/2024 5:50 PM EDT Anticoagulation Pharmacy, [address] [place] [address] Pharmacist2, [facility] [address] [place] [address] History of pulmonary embolism*; History of DVT (deep vein thrombosis) Allergies Active Allergy Reactions Criticality Noted Date Comments Cat Dander Itching 07/14/2016 documented as of this encounter (statuses as of 01/11/2024) Medications Medication Sig Dispensed Refills Start Date End Date Status OneTouch Ultra 2 w/Device KitIndications:Typ e 2 diabetes mellitus with hemoglobin A1c goal of less than 7.5% ([facility]) Testing blood sugars twice daily Dx: E11.9 1 Kit 11 2 Suspended Additional Information iSncere Lagunas 30GIndications:Typ e 2 diabetes mellitus with hemoglobin A1c goal of less than 7.5% ([facility]),Type 2 diabetes mellitus with polyneuropathy ([facility]) Check BS once daily E11.9 100 Each 2 Suspended Additional Information Docusate Sodium 100 MG Oral Capsule (Colace) Take 1 Capsule (100 mg) by mouth in the morning and 1 Capsule (100 mg) before bedtime. 10 Capsule 2 Suspended Additional Information Patient not taking.Reported on 12/19/2023 Vitamin D 25 MCG (1000 UT) Oral Tablet Take 1 Tablet (1,000 Units) by mouth daily at noon. 30 Tablet 3 2 Suspended Additional Information Cinacalcet HCl 30 MG Oral Tablet (Sensipar)Indicati ons:Hypercalcemia Take 1 tablet by mouth once daily 90 Tablet 3 3 Suspended Additional Information Patient taking differently: 30 mg Oral Daily(AM), Reported on 10/07/2023 Iron 325 (65 Fe) MG Oral Tablet Take 1 Tablet by mouth every evening. 3 Suspended Hydrocortisone 2.5 % External Cream Apply to eyebrows twice daily for 3-5 days at a time as needed for flares 60 g 2 3 Suspended Additional Information Sincere Moeller In Vitro Strip (Glucose Blood)Indications: Type 2 diabetes mellitus with polyneuropathy ([facility]),Type 2 diabetes mellitus with hemoglobin A1c goal of less than 7.5% ([facility]) USE STRIP TO CHECK GLUCOSE ONCE DAILY 100 Strip 3 4 Suspended Additional Information metFORMIN HCl 1000 MG Oral Tablet (Glucophage) TAKE 1 TABLET BY MOUTH TWICE A DAY WITH BREAKFAST AND DINNER 180 Tablet 1 4 Suspended Additional Information Patient taking differently: 1,000 mg Oral BID (AM/PM MEALS), TAKE 1 TABLET BY MOUTH TWICE A DAY WITH BREAKFAST AND DINNER, Reported on 10/07/2023 Nitroglycerin 0.4 MG Sublingual Tablet Sublingual (Nitrostat)Indicat ions:Stable angina ([facility]) Place 1 Tablet under the tongue every 5 minutes as needed for Pain, Chest. 25 Tablet 4 Suspended Additional Information Omeprazole 20 MG Oral Capsule Delayed Release (PriLOSEC)Indicati ons:Gastroesophage al reflux disease, unspecified whether esophagitis present Take 1 Capsule by mouth in the morning. 1 hour before the first meal of the day. 30 Capsule 5 4 Suspended Additional Information Atorvastatin Calcium 40 MG Oral Tablet (Lipitor)Indicatio ns:Hyperlipidemia with target LDL less than 100 Take 1 Tablet by mouth in the morning. 90 Tablet 3 4 Suspended Additional Information Ondansetron 4 MG Oral Tablet Disintegrating (Zofran)Indication s:Nausea and vomiting, unspecified vomiting type Place 1 Tablet on tongue every 8 hours as needed for Nausea. dissolve on tongue. 20 Tablet 4 Suspended Additional Information Ketoconazole 2 % External Shampoo (Nizoral) APPLY TO SCALP AND EYEBROWS DAILY- LATHER, WAIT 5 MINUTES, THEN RINSE 120 mL 1 4 Suspended Additional Information Metoprolol Succinate ER 25 MG Oral Tablet Extended Release 24 Hour (toPROL XL) Take 0.5 Tablets by mouth every night at bedtime. 15 Tablet 5 4 Suspended Additional Information Finasteride 5 MG Oral Tablet (Proscar)Indicatio ns:BPH with obstruction/lower urinary tract symptoms Take 1 Tablet by mouth in the morning. 90 Tablet 3 4 Suspended Additional Information Triamcinolone Acetonide 0.1 % External Cream (Aristocort) Apply to rash on abdomen twice daily as needed 80 g 5 4 Suspended Additional Information Warfarin Sodium 5 MG Oral Tablet (Coumadin) Take 1 Tablet by mouth every evening. Or as directed by anticoagulation clinic 90 Tablet 3 4 Suspended Additional Information Midodrine HCl 5 MG Oral Tablet (Proamatine)Indica tions:Orthostatic hypotension Take 1 Tablet by mouth in the morning and 1 Tablet at noon and 1 Tablet in the evening. Do not take at bedtime.. 270 Tablet 3 4 Suspended Additional Information AZO Cranberry 250-30 MG Oral Tablet Take by mouth every evening. Suspended Metamucil 48.57 % Oral Powder (Psyllium) Take by mouth every evening. Suspended DULoxetine HCl 60 MG Oral Capsule Delayed Release Particles (Cymbalta)Indicati ons:Depression with anxiety Take 1 capsule by mouth in the morning 90 Capsule 3 4 Suspended Additional Information glipiZIDE ER 5 MG Oral Tablet Extended Release 24 Hour (glipiZIDE XL)Indications:Typ e 2 diabetes mellitus with hemoglobin A1c goal of less than 7.5% ([facility]) Take 1 Tablet by mouth in the morning. With breakfast.. 90 Tablet 3 4 Suspended Additional Information Metoclopramide HCl 5 MG Oral Tablet (Reglan)Indication s:Nausea and vomiting, unspecified vomiting type Take 1 Tablet by mouth in the morning and 1 Tablet at noon and 1 Tablet before bedtime. 30 minutes before meals. 90 Tablet 5 4 Suspended Additional Information Polyethylene Glycol 3350 17 GM Oral Packet (MiraLax) Take 1 Packet by mouth every other day. Suspended documented as of this encounter (statuses as of 01/11/2024) Active Problems Problem Noted Date Diagnosed Date [...] as of this encounter (statuses as of 01/11/2024) Resolved Problems Problem Noted Date Diagnosed Date [...] as of this encounter (statuses as of 01/11/2024) Immunizations Name Administration Dates Next Due COVID-19 mRNA, LNP-s, No Pre serve, 2-Dose Series (AXS-One) 04/23/2021,08/09/2020,07/12/2020 Covid-19, Mrna, Lnp-s, Pf, B ivalent, [...] or do you have serious difficulty hearing? Yes-[place]; no hearing aids 01/09/2024 Are you blind [...] this encounter Progress Notes * Jessi Collier [facility] - 01/11/2024 8:13 AM EDT Patient remains admitted at [facility], possible discharge tomorrow, 01/11. Will follow up on 01/14. Jessi Collier PharmD, [facility] Clinical Pharmacist 01/11/2024, 8:16 AM documented in this encounter Plan of Treatment Upcoming Encounters Date Type Department Care Team (Late st Contact Info) Description 01/15/2024 5:50 PM EDT Anticoagulation Pharmacy, [place] [address] [address] Pharmacist2, [facility] [place] [address] [place] [address] 01/25/2024 3:30 PM EDT Office Visit [facility] [address] [place] [address] Laney Hogue MD [address] [place] [address] 02/21/2024 10:30 AM EDT Office Visit Urology [facility] [address] [place] [address] [place] [address] Nikolai Chaudhari MD [address] [place] [address] 02/25/2024 11:20 AM EDT Office Visit [facility] [address] [phone] Kaiser Amanda MD [address] [address] 03/05/2024 1:00 PM EDT Appointment Cardiac Studies, [address] [place] [address] 03/26/2024 8:00 AM EST Hospital Encounter OR [facility], Operating Room, [facility] - 4th Floor [address] [place] [address] John Gordillo MD [address] [place] [address] 03/26/2024 8:00 AM EST - 03/26/2024 8:46 AM EST Surgery OR [facility], Operating Room, [facility] - 4th Floor [address] [facility] [address] John Gordillo MD [address] [place] [address] COLONOSCOPY FLEXIBLE PROXIMAL DIAGNOSTIC 04/01/2024 12:30 PM EST Office Visit [facility]astroenterology, [facility] [address] [facility] [phone] Thelma Jamil PA-C [address] [facility] [address] 06/12/2024 2:00 PM EST Office Visit Cardiology, [place] [address] [facility] [place] [address] Clarissa Rapp PA-C 400 [place] [address] 10/21/2024 9:15 AM EDT Appointment Radiology, [facility] [address] [facility] [place] [address] 10/29/2024 9:45 AM EDT Office Visit Urology Rolo Colon [address] [facility] [address] [place] [address] Bert Boogie Jr., MD [address] [address] Scheduled Procedures Name Priority Associated Diagnoses Date/Ti [...] 07/07/2021, Additional history exists GFR 01/10/2025 01/11/2024, 12/13, 01/09/2024, Additional history exists DXA Scan 01/25/2025 01/25/2023, 0 01/2021, 12/10/2018 Colonoscopy 03/16/2025 03/16/2022, 1107/2021, 08/06/2009 Colorectal Cancer Screening 03/16/2025 Lipid Panel 02/27/2028 02/26/2023, 1208/2021, 05/26/2021, Additional history exists DTap/Tdap Vaccines (3 - Td or Tdap) 12/10/2029 12/11/2019, 06/03/2014 Pneumococcal Vaccine: 65+ Years Completed 05/22/2017, 02/23/2016, 09/25/2011 Zoster Vaccines Completed 03/26/2019, 12/12, 09/27/2011 VITAMIN D LEVEL ONCE IN A LIFETIME-USE SMARTSET# [id number] Completed 07/26/2023, 02/26/2023, 01/23/2023, Additional history exists [...] this encounter Medical Devices Implanted Type Area Alarm Installation Technician Device Identifier Shelf Expiration Date Model / Serial / Lot Cement Bone Simplex Hv & G - [id number] Implanted:Qty: 2 on 09/02/2020 by Gianni Hubbard MD at OR [facility] Right: Hip LUDY : ORTHOPAEDICS 08/11/2021 [id number] / / [id number] Spacer Ring Aclde Distal Lg 14 - [id number] Implanted:Qty: 1 on 09/02/2020 by Gianni Hubbard MD at OR [facility] Right: Hip LUDY : ORTHOPAEDICS 11/25/2024 [id number] / / Accolade C Cs 127 6 37/158 - [id number] Implanted:Qty: 1 on 09/02/2020 by Gianni Hubbard MD at OR [facility] Right: Hip LUDY : ORTHOPAEDICS 05/29/2023 [id number] / / [id number] Hip Cocr Lfit Head V40 28/+4 - [id number] Implanted:Qty: 1 on 09/02/2020 by Gianni Hubbard MD at OR [facility] Right: Hip LUDY : ORTHOPAEDICS 11/15/2024 6260-9-228 / / [id number] Hip Head Bipol [facility] 28x52 - [id number] Implanted:Qty: 1 on 09/02/2020 by Gianni Hubbard MD at OR [facility] Right: Hip LUDY : ORTHOPAEDICS 11/25/2024 [id number] / / [id number] Lens Intraoc 17.5 - [id number] - [id number] Implanted:Qty: 1 on 03/23/2022 by Rad Morgan MD at OR [facility] Left: Eye BAUSCH & LOMB 10/11/2026 [id number] / [id number] / [id number] Lens Intraoc 18.0 - [id number] - [id number] Implanted:Qty: 1 on 03/30/2022 by Rad Morgan MD at OR [facility] Right: Eye BAUSCH & LOMB 01/11/2027 [id number] / [id number] / [id number] documented as of this encounter Visit Diagnoses [...] Power of Attor jus? No Care Teams Inclusion Internship Relationship Specialty Start Date End Date Kaiser Amanda MD [address] [address] PCP - General Family Medicine 04/11/21 documented as of this encounter
--- OUTSIDE RECORDS SUMMARY | 2024-01-29 20:33 | External Medical Summary ---
Author Name Unknown Address Unknown Organization : Laboratory Report Ordering Provider Test Date Status JASONCUETO 01/12/2024 11:09:53 Final Observation Date Value Abnormality Reference (Units ) Status Glucose Point of Care 01/12/2024 11:09:53 199 Above high normal 70-120 (mg/dL) Final Performing Location
--- OUTSIDE RECORDS SUMMARY | 2024-01-29 20:33 | External Medical Summary ---
Author Name Unknown Address Unknown Organization K1F:LABORATORY [facility] - [address] [place] [address] Laboratory Report Ordering Provider Test Date Status NORY GOMEZ 01/13/2024 04:01:00 Final Observation Date Value Abnormality Reference (Units ) Status WBC, Total 01/13/2024 04:01:00 5.66 4.00-10.80 (K/uL) Final RBC 01/13/2024 04:01:00 3.47 4.50-5.25 (M/uL) Final Hemoglobin 01/13/2024 04:01:00 10.3 Below low normal 14.0-16.8 (g/dL) Final HCT 01/13/2024 04:01:00 32.0 Below low normal 40.0-48.4 (%) Final MCV 01/13/2024 04:01:00 92.2 82.0-99.5 (fL) Final MCH 01/13/2024 04:01:00 29.7 27.0-34.0 (pg) Final MCHC 01/13/2024 04:01:00 32.2 32.0-36.0 (g/dL) Final RDW 01/13/2024 04:01:00 15.6 11.5-15.5 (%) Final Platelets 01/13/2024 04:01:00 166 140-400 (K/uL) Final MPV 01/13/2024 04:01:00 8.9 6.6-11.1 (fL) Final Nucleated erythrocytes/100 leukocytes [Ratio] in Blood by Automated count 01/13/2024 04:01:00 0 <=0 (/100 WBCs) Final Performing Location LABORATORY [facility] - [address] [place] [address]
--- OUTSIDE RECORDS SUMMARY | 2024-01-29 20:33 | External Medical Summary ---
Author Name Unknown Address Unknown Organization K1F:LABORATORY [facility] - [address] [place] [address] Laboratory Report Ordering Provider Test Date Status ADONIS WHEATLEY 01/12/2024 04:33:00 Final Warfarin Therapy
INR: 2 .0-3.0 conventional anticoagulation
INR: 2.5- 3.5 high intensity anticoagulation Observation Date Value Abnormality Reference (Units ) Status PT 01/12/2024 04:33:00 23.3 Above high normal 11 .6-15.2 (seconds) Final INR 01/12/2024 04:33:00 2.1 Above high normal 0. 8-1.2 Final Performing Location LABORATORY [facility] - [address] [place] [address]
--- OUTSIDE RECORDS SUMMARY | 2024-01-29 20:33 | External Medical Summary ---
Author Name Unknown Address Unknown Organization : Laboratory Report Ordering Provider Test Date Status NORY GOMEZ 01/11/2024 11:27:17 Final Observation Date Value Abnormality Reference (Units ) Status Glucose Point of Care 01/11/2024 11:27:17 177 Above high normal 70-120 (mg/dL) Final Performing Location
--- OUTSIDE RECORDS SUMMARY | 2024-01-29 20:33 | External Medical Summary ---
Author Name Unknown Address Unknown Organization : Laboratory Report Ordering Provider Test Date Status NORY GOMEZ 01/11/2024 16:52:39 Final Observation Date Value Abnormality Reference (Units ) Status Glucose Point of Care 01/11/2024 16:52:39 172 Above high normal 70-120 (mg/dL) Final Performing Location
--- OUTSIDE RECORDS SUMMARY | 2024-01-29 20:33 | External Medical Summary ---
Author Name Unknown Address Unknown Organization : Laboratory Report Ordering Provider Test Date Status NORY GOMEZ 01/11/2024 08:50:08 Final Observation Date Value Abnormality Reference (Units ) Status Glucose Point of Care 01/11/2024 08:50:08 121 Above high normal 70-120 (mg/dL) Final Performing Location
--- OUTSIDE RECORDS SUMMARY | 2024-01-29 20:33 | External Medical Summary | Summary of Care ---
Author Name Unknown Organization [facility] Address [address] [place] [address] Phone [phone] Care Team Providers Care Small Animal Veterinarian Name Role Phone Kaiser Amanda MD Primary Care Provider [phone] Reason for Visit * Reason Comments Status Check * Auth/Cert Specialty Diagnoses / Procedures Referred By Contac t Referred To Contact [facility] [address] [place] [address] Phone: [phone] Emergency Medicine [address] [place] [address] Referral ID Status Reason Start Date Expiration Date Visits Re quested Visits Authorized [id number] [phone] Encounter Details Date Type Department Care Team (Late st Contact Info) Description 01/10/2024 5:10 PM EDT Anticoagulation Pharmacy, [address] [place] [address] Pharmacist2, [facility] [address] [place] [address] History of pulmonary embolism*; History of DVT (deep vein thrombosis) Allergies Active Allergy Reactions Criticality Noted Date Comments Cat Dander Itching 07/14/2016 documented as of this encounter (statuses as of 01/10/2024) Medications Medication Sig Dispensed Refills Start Date End Date Status OneTouch Ultra 2 w/Device KitIndications:Typ e 2 diabetes mellitus with hemoglobin A1c goal of less than 7.5% ([facility]) Testing blood sugars twice daily Dx: E11.9 1 Kit 11 2 Suspended Additional Information Sincere Lagunas 30GIndications:Typ e 2 diabetes mellitus with hemoglobin A1c goal of less than 7.5% ([facility]),Type 2 diabetes mellitus with polyneuropathy ([facility]) Check BS once daily E11.9 100 Each [...] Type 2 diabetes mellitus with polyneuropathy ([facility]),Type 2 diabetes mellitus with hemoglobin A1c goal of less than 7.5% ([facility]) USE STRIP TO CHECK GLUCOSE ONCE DAILY [...] Sublingual Tablet Sublingual (Nitrostat)Indicat ions:Stable angina ([facility]) Place 1 Tablet under the tongue every [...] as of this encounter (statuses as of 01/10/2024) Active Problems Problem Noted Date Diagnosed Date [...] as of this encounter (statuses as of 01/10/2024) Resolved Problems Problem Noted Date Diagnosed Date [...] as of this encounter (statuses as of 01/10/2024) Immunizations Name Administration Dates Next Due COVID-19 mRNA, LNP-s, No Pre serve, 2-Dose Series (Oculus VR) 04/23/2021,08/09/2020,07/12/2020 Covid-19, Mrna, Lnp-s, Pf, B ivalent, [...] or do you have serious difficulty hearing? Yes-[place]; no hearing aids 01/09/2024 Are you blind [...] this encounter Progress Notes * Jessi Collier [facility] - 01/10/2024 8:54 AM EDT Patient presented to [facility] ER on 01/08 for dysuria and near syncope. Urinalysis was clean, cultures being monitored. Patient has been admitted to hospital. Will check for discharge tomorrow. John HagerD, [facility] Clinical Pharmacist 01/10/2024, 9:54 AM documented in this encounter Plan of Treatment Upcoming Encounters Date Type Department Care Team (Late st Contact Info) Description 01/11/2024 5:50 PM EDT Anticoagulation Pharmacy, [place] [address] [address] Pharmacist2, [facility] [place] [address] [address] 01/25/2024 3:30 PM EDT Office Visit [facility] Surgery [facility] [address] [place] [address] Laney Hogue MD [address] [place] [address] 02/21/2024 10:30 AM EDT Office Visit Urology Rolo Colon [address] [place] [address] [place] [address] Nikolai Chaudhari MD [address] [place] [address] 02/25/2024 11:20 AM EDT Office Visit [facility] [address] [phone] Kaiser Amanda MD [address] [address] 03/05/2024 1:00 PM EDT Appointment Cardiac Studies, [address] [place] [address] 03/26/2024 8:00 AM EST Hospital Encounter [facility], Operating Room, [facility] - 4th Floor [address] [place] [address] John Gordillo MD [address] [place] [address] 03/26/2024 8:00 AM EST - 03/26/2024 8:46 AM EST Surgery OR [facility], Operating Room, [facility] - 4th Floor [address] [address] John Gordillo MD [address] [place] [address] COLONOSCOPY FLEXIBLE PROXIMAL DIAGNOSTIC 04/01/2024 12:30 PM EST Office Visit [facility]astroenterology, [facility] [address] Thelma Jamil PA-C [address] [facility] [place] [address] 06/12/2024 2:00 PM EST Office Visit Cardiology, [address] [place] [address] Clarissa Rapp PA-C [address] [facility] [address] 10/21/2024 9:15 AM EDT Appointment Radiology, [facility] [address] [facility] [place] [address] 10/29/2024 9:45 AM EDT Office Visit Urology Rolo Colon [address] [facility] [address] [place] [address] Keagan Thayer, Bert Giron MD [address] [place] [address] Scheduled Procedures Name Priority Associated Diagnoses Date/Ti [...] 024, 01/10/2023, 07/07/2021, Additional history exists GFR 01/09/2025 01/10/2024, 12/13, 12/29/2023, Additional history exists DXA Scan 01/25/2025 01/25/2023, 01/2021, 12/10/2018 Colonoscopy 03/16/2025 03/16/2022, 07/2021, 08/06/2009 Colorectal Cancer Screening 03/16/2025 Lipid Panel 02/27/2028 02/26/2023, 08/2021, 05/26/2021, Additional history exists DTap/Tdap Vaccines (3 - Td or Tdap) 12/10/2029 12/11/2019, 06/03/2014 Pneumococcal Vaccine: 65+ Years Completed 05/22/2017, 02/23/2016, 09/25/2011 Zoster Vaccines Completed 03/26/2019, 12/12, 09/27/2011 VITAMIN D LEVEL ONCE IN A LIFETIME-USE SMARTSET# [id number] Completed 07/26/2023, 02/26/2023, 01/23/2023, Additional history exists [...] this encounter Medical Devices Implanted Type Area Marketing Outreach Coordinator Device Identifier Shelf Expiration Date Model / Serial / Lot Cement Bone Simplex Hv & G - [id number] Implanted:Qty: 2 on 09/02/2020 by Gianni Hubbard MD at OR [facility] Right: Hip LUDY : ORTHOPAEDICS 08/11/2021 6195-1-010 / / [id number] Spacer Ring Aclde Distal Lg 14 - [id number] Implanted:Qty: 1 on 09/02/2020 by Gianni Hubbard MD at OR [facility] Right: Hip LUDY : ORTHOPAEDICS 11/25/2024 [id number] / / Accolade C Cs 127 6 37/158 - [id number] Implanted:Qty: 1 on 09/02/2020 by Gianni Hubbard MD at OR [facility] Right: Hip LUDY : ORTHOPAEDICS 05/29/2023 [id number] / / [id number] Hip Cocr Lfit Head V40 28/+4 - [id number] Implanted:Qty: 1 on 09/02/2020 by Gianni Hubbard MD at OR [facility] Right: Hip LUDY : ORTHOPAEDICS 11/15/2024 6260-9-228 / / [id number] Hip Head Bipol [employer] 28x52 - [id number] Implanted:Qty: 1 on 09/02/2020 by Gianni Hubbard MD at OR [facility] Right: Hip LUDY : ORTHOPAEDICS 11/25/2024 UH1-52-28 / / [id number] Lens Intraoc 17.5 - [id number] - [id number] Implanted:Qty: 1 on 03/23/2022 by Rad Morgan MD at OR [facility] Left: Eye BAUSCH & LOMB 10/11/2026 [id number] / [id number] / [id number] Lens Intraoc 18.0 - [id number] - [id number] Implanted:Qty: 1 on 03/30/2022 by Rad Morgan MD at OR [facility] Right: Eye BAUSCH & LOMB 01/11/2027 [id number] / [id number] / [id number] documented as of this encounter Visit Diagnoses [...] Rule-Out 12/09/2023 01/09/2024 C. difficile Rule-Out 01/09/2024 01/09/2024 documented as of this encounter Advance [...] Power of Attor jus? No Care Teams Small Animal Veterinarian Relationship Specialty Start Date End Date Kaiser Amanda MD [address] [address] PCP - General Family Medicine 04/11/21 documented as of this encounter
--- OUTSIDE RECORDS SUMMARY | 2024-01-29 20:33 | External Medical Summary ---
Author Name Unknown Address Unknown Organization : Laboratory Report Ordering Provider Test Date Status NORY GOMEZ 01/12/2024 16:40:56 Final Observation Date Value Abnormality Reference (Units ) Status Glucose Point of Care 01/12/2024 16:40:56 218 Above high normal 70-120 (mg/dL) Final Performing Location
--- OUTSIDE RECORDS SUMMARY | 2024-01-29 20:33 | External Medical Summary ---
Author Name Unknown Address Unknown Organization : Laboratory Report Ordering Provider Test Date Status NORY GOMEZ 01/13/2024 07:36:47 Final Observation Date Value Abnormality Reference (Units ) Status Glucose Point of Care 01/13/2024 07:36:47 122 Above high normal 70-120 (mg/dL) Final Performing Location
--- OUTSIDE RECORDS SUMMARY | 2024-01-29 20:33 | External Medical Summary ---
Author Name Unknown Address Unknown Organization : Laboratory Report Ordering Provider Test Date Status NORY GOMEZ 01/14/2024 11:21:46 Final Observation Date Value Abnormality Reference (Units ) Status Glucose Point of Care 01/14/2024 11:21:46 259 Above high normal 70-120 (mg/dL) Final Performing Location
--- OUTSIDE RECORDS SUMMARY | 2024-01-29 20:34 | External Medical Summary ---
Author Name Unknown Address Unknown Organization K1F:[facility]AT[facility] - [address] [place] [address] Laboratory Report Ordering Provider Test Date Status MINDI GARCIA 01/10/2024 05:02:00 Final Observation Date Value Abnormality Reference (Units ) Status Phosphate 01/10/2024 05:02:00 4.2 2.5-4.8 (m g/dL) Final Performing Location [facility] - [address] [place] [address]
--- OUTSIDE RECORDS SUMMARY | 2024-01-29 20:34 | External Medical Summary ---
Author Name Unknown Address Unknown Organization K1F:LABORATORY [facility] - [address] [place] [address] Laboratory Report Ordering Provider Test Date Status ADONIS WHEATLEY 01/10/2024 05:02:00 Final Warfarin Therapy
INR: 2 .0-3.0 conventional anticoagulation
INR: 2.5- 3.5 high intensity anticoagulation Observation Date Value Abnormality Reference (Units ) Status PT 01/10/2024 05:02:00 33.8 Above high normal 11 .6-15.2 (seconds) Final INR 01/10/2024 05:02:00 3.3 Above high normal 0. 8-1.2 Final Performing Location LABORATORY [facility] - [address] [place] [address]
--- OUTSIDE RECORDS SUMMARY | 2024-01-29 20:34 | External Medical Summary ---
Author Name Unknown Address Unknown Organization K1F:LABORATORY [facility] - [address] [place] [address] Laboratory Report Ordering Provider Test Date Status MINDI GARCIA 01/10/2024 05:02:00 Final Observation Date Value Abnormality Reference (Units ) Status WBC, Total 01/10/2024 05:02:00 7.11 4.00-10.80 (K/uL) Final RBC 01/10/2024 05:02:00 3.82 4.50-5.25 (M/uL) Final Hemoglobin 01/10/2024 05:02:00 11.2 Below low normal 14.0-16.8 (g/dL) Final HCT 01/10/2024 05:02:00 34.9 Below low normal 40.0-48.4 (%) Final MCV 01/10/2024 05:02:00 91.4 82.0-99.5 (fL) Final MCH 01/10/2024 05:02:00 29.3 27.0-34.0 (pg) Final MCHC 01/10/2024 05:02:00 32.1 32.0-36.0 (g/dL) Final RDW 01/10/2024 05:02:00 15.1 11.5-15.5 (%) Final Platelets 01/10/2024 05:02:00 190 140-400 (K/uL) Final MPV 01/10/2024 05:02:00 8.8 6.6-11.1 (fL) Final Nucleated erythrocytes/100 leukocytes [Ratio] in Blood by Automated count 01/10/2024 05:02:00 0 <=0 (/100 WBCs) Final Performing Location LABORATORY [facility] - [address] [place] [address]
--- OUTSIDE RECORDS SUMMARY | 2024-01-29 20:34 | External Medical Summary ---
Author Name Unknown Address Unknown Organization K1F:LABORATORY [facility] - [address] [facility] [place] [address] Laboratory Report Ordering Provider Test Date Status JVAIER ESTRADA 01/09/2024 11:18:29 Final Observation Date Value Abnormality Reference (Units ) Status Color of Urine by Auto 01/09/2024 11:18:29 Yellow Light Yellow, Yellow, Dark Yellow Final Clarity, Urine 01/09/2024 11:18:29 Clear Clear Final Glucose [Mass/volume] in Urine by Automated test strip 01/09/2024 11:18:29 Negative Negative (mg/dL) Final Bilirubin.total [Presence] in Urine by Automated test strip 01/09/2024 11:18:29 Negative Negative Final Ketones [Mass/volume] in Urine by Automated test strip 01/09/2024 11:18:29 Negative Negative (mg/dL) Final Specific gravity, Urine 01/09/2024 11:18:29 1.011 1.003-1.030 Final Hemoglobin [Presence] in Urine by Automated test strip 01/09/2024 11:18:29 Large Abnormal Negative Final pH, Urine 01/09/2024 11:18:29 6.0 5.0-7.5 (Units) Final Protein [Mass/volume] in Urine by Automated test strip 01/09/2024 11:18:29 Negative Negative (mg/dL) Final Urobilinogen [Mass/volume] in Urine by Automated test strip 01/09/2024 11:18:29 0.2 0.2, 1.0 (mg/dL) Final Nitrite [Presence] in Urine by Automated test strip 01/09/2024 11:18:29 Negative Negative Final Leukocyte esterase [Presence] in Urine by Automated test strip 01/09/2024 11:18:29 Negative Negative Final RBC, Urine 01/09/2024 11:18:29 50+ Abnormal 0-2 (/HPF) Final WBC, Urine 01/09/2024 11:18:29 0-2 0-2 (/HPF) Final Bacteria [#/area] in Urine sediment by Microscopy high power field 01/09/2024 11:18:29 26-50 Abnormal 0-25 (/HPF) Final CULTURE, URINE - ISINGER 01/09/2024 11:18:29 Final Quantitative urine culture t o be performed Performing Location LABORATORY [place] [address] [place] [address]
--- OUTSIDE RECORDS SUMMARY | 2024-01-29 20:34 | External Medical Summary ---
Author Name Unknown Address Unknown Organization : Laboratory Report Ordering Provider Test Date Status ADONIS WHEATLEY 01/09/2024 21:42:09 Final Observation Date Value Abnormality Reference (Units ) Status Glucose Point of Care 01/09/2024 21:42:09 119 70-120 (mg/dL) Final Performing Location
--- OUTSIDE RECORDS SUMMARY | 2024-01-29 20:34 | External Medical Summary ---
Author Name Unknown Address Unknown Organization K1F:[facility] - [address] [place] [address] Laboratory Report Ordering Provider Test Date Status MINDI GARCIA 01/10/2024 05:02:00 Final Observation Date Value Abnormality Reference (Units ) Status BUN 01/10/2024 05:02:00 15 6-20 (mg/dL) Final Creatinine 01/10/2024 05:02:00 0.9 0.6-1.2 (mg/dL) Final Glomerular filtration rate/1.73 sq M.predicted [Volume Rate/Area] in Serum, Plasma or Blood by Creatinine-based formula (CKD-EPI) 01/10/2024 05:02:00 87 >=60 (mL/min) Final eGFR is calculated based on the CKD-EPI 2020 equation. Sodium 01/10/2024 05:02:00 139 135-146 (m mol/L) Final Potassium 01/10/2024 05:02:00 4.3 3.5-5.1 (m mol/L) Final Cl 01/10/2024 05:02:00 104 98-107 (mm ol/L) Final CO2 01/10/2024 05:02:00 25 22-32 (mmo l/L) Final Anion gap 01/10/2024 05:02:00 10 7-15 (mmol /L) Final Glucose 01/10/2024 05:02:00 91 70-120 (mg /dL) Final Albumin 01/10/2024 05:02:00 3.2 Below low normal 3.8 -5.0 (g/dL) Final AST (Aspartate aminotransferase) 01/10/2024 05:02:00 32 10-50 (U/L) Fin al Alk Phos 01/10/2024 05:02:00 46 35-130 (U/ L) Final Bilirubin, Total 01/10/2024 05:02:00 0.5 <=1 .2 (mg/dL) Final Calcium 01/10/2024 05:02:00 8.3 Below low normal 8.4 -10.2 (mg/dL) Final Protein 01/10/2024 05:02:00 5.7 Below low normal 6.0 -8.3 (g/dL) Final ALT (Alanine aminotransferase) 01/10/2024 05:02:00 21 10-50 (U/L) Rafael mendez [facility] [place] Location LABORATORY [facility] - [facility] [address] [place] [address]
--- OUTSIDE RECORDS SUMMARY | 2024-01-29 20:34 | External Medical Summary ---
Author Name Unknown Address Unknown Organization K1F:LABORATORY [facility] - [address] [place] [address] Laboratory Report Ordering Provider Test Date Status MINDI GARCIA 01/09/2024 21:37:00 Final Observation Date Value Abnormality Reference (Units ) Status Troponin T 01/09/2024 21:37:00 32 Above high normal < =22 (ng/L) Final Performing Location LABORATORY [facility] - [address] [address]
--- OUTSIDE RECORDS SUMMARY | 2024-01-29 20:34 | External Medical Summary | Summary of Care ---
Author Name Unknown Organization [facility] Address [address] [facility] [address] Phone [phone] Care Team Providers Care Delivery Crew Worker Name Role Phone Kaiser Amanda MD Primary Care Provider [phone] Reason for Visit * Reason Comments Status Check Encounter Details Date Type Department Care Team (Late st Contact Info) Description 01/09/2024 1:00 PM EDT Anticoagulation Pharmacy, [address] [place] [address] Pharmacist1, [address] [place] [address] History of pulmonary embolism*; History of DVT (deep vein thrombosis) Allergies Active Allergy Reactions Criticality Noted Date Comments Cat Dander Itching 07/14/2016 documented as of this encounter (statuses as of 01/09/2024) Medications Medication Sig Dispensed Refills Start Date [...] [facility] [place]),Type 2 diabetes mellitus with polyneuropathy (HCC) Check [...] ype 2 diabetes mellitus with polyneuropathy ([facility]),Type 2 diabetes mellitus with hemoglobin A1c goal of less than 7.5% ([facility]) USE STRIP TO CHECK GLUCOSE ONCE DAILY 100 Strip 3 07/16/2023 Active metFORMIN HCl 1000 MG Oral Tablet (Glucophage) TAKE 1 TABLET BY MOUTH TWICE A DAY WITH BREAKFAST AND DINNER 180 Tablet 1 07/21/2023 Active Additional Information Patient taking differently: 1,000 mg Oral BID (AM/PM MEALS), TAKE 1 TABLET BY MOUTH TWICE A DAY WITH BREAKFAST AND DINNER, Reported on 10/07/2023 Nitroglycerin 0.4 MG Sublingual Tablet Sublingual (Nitrostat)Indicati ons:Stable angina ([facility]) [...] by anticoagulation clinic 90 Tablet 11/28/2023 Active Midodrine HCl 5 MG Oral Tablet (Proamatine)Indicat ions:Orthostatic hypotension Take 1 Tablet by mouth in the morning and 1 Tablet at noon and 1 Tablet in the evening. Do not take at bedtime.. 270 Tablet 3 12/11/2023 Active AZO Cranberry 250-30 MG Oral Tablet Take by mouth every evening. Active Metamucil 48.57 % Oral Powder (Psyllium) Take by mouth every evening. Active DULoxetine HCl 60 MG Oral Capsule Delayed Release Particles (Cymbalta)Indicatio ns:Depression with anxiety Take 1 capsule by mouth in the morning 90 Capsule 12/27/2023 Active Cefpodoxime Proxetil 200 MG Oral Tablet Take 1 Tablet by mouth in the morning and 1 Tablet before bedtime. Do all this for 10 days. Do not start before December 30, 2023. 20 Tablet 12/30/2023 01/09/20 24 Active glipiZIDE ER 5 MG Oral [...] before meals. 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 Dysautonomia [...] as of this encounter (statuses as of 01/09/2024) Resolved Problems Problem Noted Date Diagnosed Date [...] as of this encounter (statuses as of 01/09/2024) Immunizations Name Administration Dates Next Due COVID-19 mRNA, LNP-s, No Pre serve, 2-Dose Series (ZipList) 04/23/2021,08/09/2020,07/12/2020 Covid-19, Mrna, Lnp-s, Pf, B ivalent, [...] lent, No Preserve, IM 02/23/2016,02/10/2015 Seasonal Influenza, Split, I IV3, With Preserve, Inj 04/15/2014,02/17/2013,04/03/2012,05/09 Seasonal Influenza, Trivalen t, Adjuvanted, 65+ yrs 03/05/2019 TD, Preservative Free 12/11/2019 TDAP, Age [...] do you have serious difficulty h earing? No-TUNICA-BILOXI 11/07/2023 Are you blind or do you [...] No 11/07/2023 documented as of this encounter Progress Notes * Jessi Collier RPh - 01/09/2024 12:25 PM EDT Patient currently at [facility] ER for chronic UTI and urine retention. INR was 3.8. If patient is discharged home, inpatient pharmacist will relay to patient to hold Coumadin dose for tonight and [facility] will contact tomorrow with further instructions. Jessi Collier, PharmD, [facility] Clinical Pharmacist 01/09/2024, 12:32 PM documented in this encounter Plan of Treatment Upcoming Encounters Date Type Department Care Team (Late st Contact Info) Description 01/10/2024 5:10 PM EDT Anticoagulation Pharmacy, [address] [place] [id number] Pharmacist2, [facility] [address] [place] [address] 01/25/2024 3:30 PM EDT Office Visit MOHS Surgery [facility] [address] [place] [address] Laney Hogue MD [address] [place] [address] 02/21/2024 10:30 AM EDT Office Visit Urology [facility] [address] [facility] [address] [place] [address] Nikolai Chaudhari MD [address] [place] [address] 02/25/2024 11:20 AM EDT Office Visit [facility] [address] [phone] Kaiser Amanda MD [address] [address] 03/05/2024 1:00 PM EDT [facility] [place] [address] 03/26/2024 8:00 AM EST Hospital Encounter OR [facility], Operating Room, [facility] - 4th Floor [address] [place] [address] John Gordillo MD [address] [place] [address] 03/26/2024 8:00 AM EST - 03/26/2024 8:46 AM EST Surgery OR [facility], Operating Room, [facility] - 4th Floor [address] [place] [address] John Gordillo MD [address] [place] [address] COLONOSCOPY FLEXIBLE PROXIMAL DIAGNOSTIC 04/01/2024 12:30 PM EST Office Visit Gastroenterology, [facility] [address] [facility] [place] [address] Thelma Jamil PA-C [address] [place] [address] 06/12/2024 2:00 PM EST Office Visit [facility], [place] [facility] [address] Clarissa Rapp PA-C [address] [place] [address] 10/21/2024 9:15 AM EDT Appointment Radiology, [facility] [address] [place] [address] 10/29/2024 9:45 AM EDT Office Visit Urology [address] Rinal[address] [place] [address] [place] [address] Bert Boogie Jr., MD [address] [place] [address] Scheduled Procedures Name Priority Associated Diagnoses Date/Ti [...] 024, 01/10/2023, 07/07/2021, Additional history exists GFR 01/08/2025 01/09/2024, 12/12, 12/09/2023, Additional history exists DXA Scan 01/25/2025 01/25/2023, 09/0 01/2021, 12/10/2018 Colonoscopy 03/16/2025 03/16/2022, 11/0 07/2021, 08/06/2009 Colorectal Cancer Screening 03/16/2025 Lipid Panel 02/27/2028 02/26/2023, 12/0 08/2021, 05/26/2021, Additional history exists DTap/Tdap Vaccines (3 - Td or Tdap) 12/10/2029 12/11/2019, 06/03/2014 Pneumococcal Vaccine: 65+ Years Completed 05/22/2017, 02/23/2016, 09/25/2011 Zoster Vaccines Completed 03/26/2019, 12/12, 09/27/2011 VITAMIN D LEVEL ONCE IN A LIFETIME-USE SMARTSET# [id number] Completed 07/26/2023, 02/26/2023, 01/23/2023, Additional history exists [...] this encounter Medical Devices Implanted Type Area Health And Safety Specialist Device Identifier Shelf Expiration Date Model / Serial / Lot Cement Bone Simplex Hv & G - [id number] Implanted:Qty: 2 on 09/02/2020 by Gianni Hubbard MD at OR [facility] Right: Hip LUDY : ORTHOPAEDICS 08/11/2021 6195-1-010 / / [id number] Spacer Ring Aclde Distal Lg 14 - [id number] Implanted:Qty: 1 on 09/02/2020 by Gianni Hubbard MD at OR [facility] Right: Hip LUDY : ORTHOPAEDICS 11/25/2024 [id number] / / Accolade C Cs 127 6 37/158 - [id number] Implanted:Qty: 1 on 09/02/2020 by Gianni Hubbard MD at OR [facility] Right: Hip LUDY : ORTHOPAEDICS 05/29/2023 [id number] / / [id number] Hip Cocr Lfit Head V40 28/+4 - [id number] Implanted:Qty: 1 on 09/02/2020 by Gianni Hubbard MD at OR [facility] Right: Hip LUDY : ORTHOPAEDICS 11/15/2024 6260-9-228 / / [id number] Hip Head Bipol Uhr Uni 28x52 - [id number] Implanted:Qty: 1 on 09/02/2020 by Gianni Hubbard MD at OR [facility] Right: Hip LUDY : ORTHOPAEDICS 11/25/2024 [id number] / / [id number] Lens Intraoc 17.5 - [id number] - [id number] Implanted:Qty: 1 on 03/23/2022 by Rad Morgan MD at OR [facility] Left: Eye BAUSCH & LOMB 10/11/2026 [id number] / [id number] / [id number] Lens Intraoc 18.0 - [id number] - [id number] Implanted:Qty: 1 on 03/30/2022 by Rad Morgan MD at [facility] Right: Eye BAUSCH & LOMB 01/11/2027 [id number] / [id number] / [id number] documented as of this encounter Visit Diagnoses [...] Last Indicated Resolved Time Gastrointestinal Rule-Out 12/09/2023 12/09/2023 documented as of this encounter Advance Directives * Full Code (Latest Code Status on File) Date Activated Date Inactivated Comments 11/07/2023 10:10 [...] Health Care Power of Attor jus? No * No Code Date Activated Date Inactivated Comments 03/30/2022 6:32 AM 03/30/2022 12:51 PM This orde r reflects the patients wishes and were consensually agreed upon. Question Answer Comments Discussion of Advance Directives occurred with: Patient Does the patient have a Living Will? No Does the patient have Health Care Power of Attor jus? No Care Teams Delivery Crew Worker Relationship Specialty Start Date End Date Kaiser Amanda MD [address] [address] PCP - General Family Medicine 04/11/21 documented as of this encounter
--- OUTSIDE RECORDS SUMMARY | 2024-01-29 20:34 | External Medical Summary | Summary of Care ---
Author Name Unknown Organization [facility] Address [address] [facility] [place] [address] Phone [phone] Care Team Providers Care Hydrocrane Operator Name Role Phone Kaiser Amanda MD Primary Care Provider [phone] Encounter Details Date Type Department Care Team (Late st Contact Info) Description 01/10/2024 Population Health External Data Unspecified Department Allergies [...] 1 Kit 11 2 Suspended Additional Information Oneuch Nova Lancets 30GIndications:Typ e 2 diabetes mellitus with [...] 60 g 2 3 Suspended Additional Information OneTouch Verio In Vitro [...] mRNA, LNP-s, No Pre serve, 2-Dose Series ([employer]) 04/23/2021,08/09/2020,07/12/2020 Covid-19, Mrna, Lnp-s, Pf, B ivalent, [...] or do you have serious difficulty hearing? Yes-ZUNI; no hearing aids 01/09/2024 Are you blind [...] Description 01/10/2024 5:10 PM EDT Anticoagulation Pharmacy, [place] [address] [address] Pharmacist2, [facility] [place] [address] [place] [address] 01/25/2024 3:30 PM EDT Office Visit MOHS Surgery [facility] [place] [address] [place] [address] Laney Hogue MD [address] [facility] [address] [place] [address] 02/21/2024 10:30 AM EDT Office Visit Urology [place] [address] [place] [address] Nikolai Chaudhari MD [address] [place] [address] 02/25/2024 11:20 AM EDT Office Visit [facility] [address] [place] [address] Kaiser Amanda MD [address] [place] [address] 03/05/2024 1:00 PM EDT Appointment Cardiac Studies, [facility] [place] [address] 03/26/2024 8:00 AM EST Hospital Encounter OR [facility], Operating Room, [facility] - 4th Floor [address] [place], [place] [address] [address] John Gordillo MD [address] [place] [address] 03/26/2024 8:00 AM EST - 03/26/2024 8:46 AM EST Surgery OR [facility], Operating Room, [facility] Floor [address] [place] [address] [place] [address] John Gordillo MD [address] [place] [address] COLONOSCOPY FLEXIBLE PROXIMAL DIAGNOSTIC 04/01/2024 12:30 PM EST Office Visit Gastroenterology, [facility] [address] [place] [phone] Thelma Jamil PA-C 310 [facility] [place] [address] 06/12/2024 2:00 PM EST Office Visit Cardiology, [place] [address] [facility] [place] [address] Clarissa Rapp PA-C 400 [facility] [place] [address] 10/21/2024 9:15 AM EDT Appointment Radiology, [facility] [address] [facility] [place] [address] 10/29/2024 9:45 AM EDT Office Visit Urology [place] [address] [place] [address] Bert Boogie Jr., MD [address] [place] [place] [address] Scheduled Procedures Name Priority Associated Diagnoses Date/Ti [...] 01/23/2023, Additional history exists B-12 07/25/2024 07/26/2023, 10/3 05/2021, 11/15/2021, Additional history exists Diabetic Foot Exam 07/25/2024 07/26/2023, 0 06/09/2022, 04/11/2021, Additional history exists Depression Monitoring 10/14/2024 10/15/2023 Albumin/Creatinine Ratio 10/17/2024 024, 01/10/2023, 07/07/2021, Additional history exists GFR 01/09/2025 01/10/2024, 2 12/2023, 12/29/2023, Additional history exists DXA Scan 01/25/2025 01/25/2023, 01/2021, 12/10/2018 Colonoscopy 03/16/2025 03/16/2022, 110 07/2021, 08/06/2009 Colorectal Cancer Screening 03/16/2025 Lipid Panel 02/27/2028 02/26/2023, 12/0 08/2021, 05/26/2021, Additional history exists DTap/Tdap Vaccines (3 - Td or Tdap) 12/10/2029 12/11/2019, 06/03/2014 Pneumococcal Vaccine: 65+ Years Completed 05/22/2017, 02/23/2016, 09/25/2011 Zoster Vaccines Completed 03/26/2019, 12/12, 09/27/2011 VITAMIN D LEVEL ONCE IN A LIFETIME-USE SMARTSET# [id number] Completed 07/26/2023, 02/26/2023, 01/23/2023, Additional history exists [...] this encounter Medical Devices Implanted Type Area Cordage Sales Representative Device Identifier Shelf Expiration Date Model / Serial / Lot Cement Bone Simplex Hv & G - [id number] Implanted:Qty: 2 on 09/02/2020 by Gianni Hubbard MD at OR [facility] Right: Hip LUDY : ORTHOPAEDICS 08/11/2021 6195-1-010 / / [id number] Spacer Ring Aclde Distal Lg 14 - [id number] Implanted:Qty: 1 on 09/02/2020 by Gianni Hubbard MD at OR [facility] Right: Hip LUDY : ORTHOPAEDICS 11/25/2024 [id number] / / Accolade C Cs 127 6 37/158 - [id number] Implanted:Qty: 1 on 09/02/2020 by Gianni Hubbard MD at OR [facility] Right: Hip LUDY : ORTHOPAEDICS 05/29/2023 [id number] / / [id number] Hip Cocr Lfit Head V40 28/+4 - [id number] Implanted:Qty: 1 on 09/02/2020 by Gianni Hubbard MD at OR [facility] Right: Hip LUDY : ORTHOPAEDICS 11/15/2024 6260-9-228 / / [id number] Hip Head Bipol Uhr Uni 28x52 - [id number] Implanted:Qty: 1 on 09/02/2020 by Gianni Hubbard MD at OR [facility] Right: Hip LUDY : ORTHOPAEDICS 11/25/2024 UH1-52-28 / / [id number] Lens Intraoc 17.5 - [id number] - [id number] Implanted:Qty: 1 on 03/23/2022 by Rad Morgan MD at OR [facility] Left: Eye BAUSCH & LOMB 10/11/2026 [id number] / [id number] / [id number] Lens Intraoc 18.0 - [id number] - [id number] Implanted:Qty: 1 on 03/30/2022 by Rad Morgan MD at OR [facility] Right: Eye BAUSCH & LOMB 01/11/2027 [id number] / [id number] / [id number] documented as of this encounter Additional Health [...] Power of Attor jus? No Care Teams Hydrocrane Operator Relationship Specialty Start Date End Date Kaiser Amanda MD [address] [address] PCP - General Family Medicine 04/11/21 documented as of this encounter
--- OUTSIDE RECORDS SUMMARY | 2024-01-29 20:34 | External Medical Summary ---
Author Name Unknown Address Unknown Organization K1F:LABORATORY [facility] - [place] [address] Laboratory Report Ordering Provider Test Date Status JAVIER ESTRADA 01/09/2024 09:01:23 Final Observation Date Value Abnormality Reference (Units ) Status Troponin T 01/09/2024 09:01:23 39 Above high normal < =22 (ng/L) Final Performing Location LABORATORY [facility] - [address] [place] [address]
--- OUTSIDE RECORDS SUMMARY | 2024-01-29 20:34 | External Medical Summary ---
Author Name Unknown Address Unknown Organization K01:[facility] [address] [place] [address] Laboratory Report Ordering Provider Test Date Status JAVIER ESTRADA 01/09/2024 11:18:29 Final Observation Date Value Abnormality Reference (Units) Status Bacteria identified in Specimen by Culture 01/09/2024 11:18:29 No significant growth Final Test: Culture, Urine, Quant itative
Specimen Source: Urine, Clean Catch
Specimen Type: Urine
Specimen Date: 01/09/2024 1118
Result Date: 01/10/2024 1250
Result Status: Final result
Resulting Lab: [facility]
[address]
[place] [address]

CULTURE

No significant growth

null Performing Location [facility] [address] [place] [address]
--- OUTSIDE RECORDS SUMMARY | 2024-01-29 20:34 | External Medical Summary | Summary of Care ---
Author Name Unknown Organization [facility] Address [address] [facility] [address] Phone [phone] Care Team Providers Care Skilled Nursing Facility Counselor Name Role Phone Kaiser Amanda MD Primary Care Provider [phone] Reason for Referral * Evaluate & Treat - Unlimited Visits (Within 30 days (routine)) - Authorized Specialty Diagnoses / Procedures Referred By Fauzia oconnor Referred To Contact Optometry Diagnoses Type 2 diabetes mellitus with hemoglobin A1c goal of less than 7.5% ([facility]) Kaiser Amanda MD [place] [address] Referral ID Status Reason Start Date Expiration Date Visits Requested Visits Authorized [id number] Authorized Specialty Services Required 01/04/2024 1 1 Question Answer Referring for: Optometry Conditions Optometry Conditions Diabetic Eye Exam without Retinopathy Referral Priority Within 30 days (routine) Where should this appointment be scheduled? External Comments [facility] Gaines 02/05/24. Reason for Visit * Reason Comments Emergency Department Follow-Up Encounter Details Date Type Department Care Team (Late st Contact Info) Description 01/04/2024 10:40 AM EDT Office Visit [facility] [place] [address] [address] Kaiser Amanda MD [address] [address] Recurrent UTI*; Klebsiella cystitis; Nausea and vomiting, unspecified vomiting type; Type 2 diabetes mellitus with hemoglobin A1c goal of less than 7.5% (HCC) Allergies Active Allergy Reactions Criticality Noted Date Comments Cat Dander Itching 07/14/2016 documented as of this encounter (statuses as of 01/06/2024) Medications Medication Sig Dispensed Refills Start Date End Date Status Cable-SenseTouch Ultra 2 w/Device KitIndications:Typ e 2 diabetes mellitus with hemoglobin A1c goal of less than 7.5% (HCC) Testing blood sugars twice daily Dx: E11.9 1 Kit 11 2 Active Cable-SenseTouch Delica Lancets 30GIndications:Typ e 2 diabetes mellitus with hemoglobin A1c goal of less than 7.5% (HCC),Type 2 diabetes mellitus with polyneuropathy (HCC) Check BS once daily E11.9 100 Each 2 Active Docusate Sodium 100 MG Oral Capsule (Colace) Take 1 Capsule (100 mg) by mouth in the morning and 1 Capsule (100 mg) before bedtime. 10 Capsule 2 Active Additional Information Patient not taking.Reported on 12/19/2023 Vitamin D 25 MCG (1000 UT) Oral Tablet Take 1 Tablet (1,000 Units) by mouth daily at noon. 30 Tablet 3 2 Active Cinacalcet HCl 30 MG Oral Tablet (Sensipar)Indicati ons:Hypercalcemia Take 1 tablet by mouth once daily 90 Tablet 3 3 Active Additional Information Patient taking differently: 30 mg Oral Daily(AM), Reported on 10/07/2023 Iron 325 (65 Fe) MG Oral Tablet Take 1 Tablet by mouth every evening. 3 Active Hydrocortisone 2.5 % External Cream Apply to eyebrows twice daily for 3-5 days at a time as needed for flares 60 g 2 3 Active PayStand Verio In Vitro Strip (Glucose Blood)Indications: Type 2 diabetes mellitus with polyneuropathy (HCC),Type 2 diabetes mellitus with hemoglobin A1c goal of less than 7.5% (HCC) USE STRIP TO CHECK GLUCOSE ONCE DAILY 100 Strip 3 4 Active metFORMIN HCl 1000 MG Oral Tablet (Glucophage) TAKE 1 TABLET BY MOUTH TWICE A DAY WITH BREAKFAST AND DINNER 180 Tablet 1 4 Active Additional Information Patient taking differently: 1,000 mg Oral BID (AM/PM MEALS), TAKE 1 TABLET BY MOUTH TWICE A DAY WITH BREAKFAST AND DINNER, Reported on 10/07/2023 Nitroglycerin 0.4 MG Sublingual Tablet Sublingual (Nitrostat)Indicat ions:Stable angina (HCC) Place 1 Tablet under the tongue every 5 minutes as needed for Pain, Chest. 25 Tablet 4 Active Omeprazole 20 MG Oral Capsule Delayed Release (PriLOSEC)Indicati ons:Gastroesophage al reflux disease, unspecified whether esophagitis present Take 1 Capsule by mouth in the morning. 1 hour before the first meal of the day. 30 Capsule 5 4 Active Atorvastatin Calcium 40 MG Oral Tablet (Lipitor)Indicatio ns:Hyperlipidemia with target LDL less than 100 Take 1 Tablet by mouth in the morning. 90 Tablet 3 4 Active Ondansetron 4 MG Oral Tablet Disintegrating (Zofran)Indication s:Nausea and vomiting, unspecified vomiting type Place 1 Tablet on tongue every 8 hours as needed for Nausea. dissolve on tongue. 20 Tablet 4 Active Ketoconazole 2 % External Shampoo (Nizoral) APPLY TO SCALP AND EYEBROWS DAILY- LATHER, WAIT 5 MINUTES, THEN RINSE 120 mL 1 4 Active Metoprolol Succinate ER 25 MG Oral Tablet Extended Release 24 Hour (toPROL XL) Take 0.5 Tablets by mouth every night at bedtime. 15 Tablet 5 4 Active Finasteride 5 MG Oral Tablet (Proscar)Indicatio ns:BPH with obstruction/lower urinary tract symptoms Take 1 Tablet by mouth in the morning. 90 Tablet 3 4 Active Triamcinolone Acetonide 0.1 % External Cream (Aristocort) Apply to rash on abdomen twice daily as needed 80 g 5 4 Active Warfarin Sodium 5 MG Oral Tablet (Coumadin) Take 1 Tablet by mouth every evening. Or as directed by anticoagulation clinic 90 Tablet 3 4 Active Midodrine HCl 5 MG Oral Tablet (Proamatine)Indica tions:Orthostatic hypotension Take 1 Tablet by mouth in the morning and 1 Tablet at noon and 1 Tablet in the evening. Do not take at bedtime.. 270 Tablet 3 4 Active AZO Cranberry 250-30 MG Oral Tablet Take by mouth every evening. Active Metamucil 48.57 % Oral Powder (Psyllium) Take by mouth every evening. Active DULoxetine HCl 60 MG Oral Capsule Delayed Release Particles (Cymbalta)Indicati ons:Depression with anxiety Take 1 capsule by mouth in the morning 90 Capsule 3 4 Active Cefpodoxime Proxetil 200 MG Oral Tablet Take 1 Tablet by mouth in the morning and 1 Tablet before bedtime. Do all this for 10 days. Do not start before December 30, 2023. 20 Tablet 4 01/09/20 24 Active glipiZIDE ER 5 MG Oral Tablet Extended Release 24 Hour (glipiZIDE XL)Indications:Typ e 2 diabetes mellitus with hemoglobin A1c goal of less than 7.5% (HCC) Take 1 Tablet by mouth in the morning. With breakfast.. 90 Tablet 3 4 Active Metoclopramide HCl 5 MG Oral Tablet (Reglan)Indication s:Nausea and vomiting, unspecified vomiting type Take 1 Tablet by mouth in the morning and 1 Tablet at noon and 1 Tablet before bedtime. 30 minutes before meals. 90 Tablet 5 4 Active glipiZIDE ER 10 MG Oral Tablet Extended Release 24 Hour (Glucotrol XL)Indications:Typ e 2 diabetes mellitus with hemoglobin A1c goal of less than 7.5% (HCC) TAKE 1 TABLET BY MOUTH DAILY. TAKE 30 MINUTES BEFORE A MEAL 90 Tablet 3 3 01/04/20 24 Discontinu ed(Medicat ion/Dose Changed) Tamsulosin HCl 0.4 MG Oral Capsule (Flomax) Take 2 Capsules by mouth at bedtime. 60 Capsule 4 01/04/20 24 Hospital, Clinic, or Other Facility Administered Medication Ordered Dose Route Frequency Start Date End Date Status cefTRIAXone (Rocephin) inj 1 gIndications:Klebsiella cystitis,Recurrent UTI 1 g IM ONCE 01/04/2024 01/04/2024 En ded documented as of this encounter (statuses as of 01/06/2024) Active Problems Problem Noted Date Diagnosed Date [...] as of this encounter (statuses as of 01/06/2024) Resolved Problems Problem Noted Date Diagnosed Date [...] as of this encounter (statuses as of 01/06/2024) Immunizations Name Administration Dates Next Due COVID-19 mRNA, LNP-s, No Pre serve, 2-Dose Series (PharmMD) 04/23/2021,08/09/2020,07/12/2020 Covid-19, Mrna, Lnp-s, Pf, B ivalent, [...] Sign Reading Time Taken Comments Blood Pressure 104/62 01/04/2024 10:52 AM EDT Pulse 99 01/04/2024 10:52 AM EDT Temperature 36 C (96.8 F) 01/04/2024 10:52 AM EDT Respiratory Rate 16 01/04/2024 10:52 AM EDT Oxygen Saturation 98% 01/04/2024 10:52 AM EDT Inhaled Oxygen Concentration - - Weight 67.4 kg (148 lb 9.6 oz) 01/04/2024 10:52 AM EDT Height 175.3 cm (5' 9") 01/04/2024 10:52 AM EDT Body Mass Index 21.94 01/04/2024 10:52 AM EDT documented in this encounter Functional Status Functional Status Response Date of Assess ment Are you deaf or do you have serious difficulty h earing? No-NENANA 11/07/2023 Are you blind or do you [...] as of this encounter Progress Notes * Torie Hall MED ASSIST - 01/04/2024 11:46 AM EDT Pre-Administration Time Out Procedure Performed: Yes Patient Identified (Ask Name/Date of ): Yes Does the patient have a fever greater than 101 degrees today? No Patient allergic to latex? No Has the patient ever fainted after receiving an injection? No VFC Stock: No Injection(s) verified: Yes, Injection Name: ceftriaxone Verified Side and Site: Yes Verified Shot(s) with Parent(s)/Patient: Yes * Kaiser Amanda MD - 01/04/2024 10:53 AM EDT Images from the original note were not included. History of Present Illness Lewis Alarcon is a 73 year old male that presents for Emergency Department Follow-Up Seen in ED 6 days ago for recurrent klebsiella UTI. Started on cefpodime and today feels the same as when he went to the ED. wonders why he continues to get the same UTI. Is not have any catheter in place at this time. He does have an Urology appointment where cystoscopy will be He feels well but does feel weak. His notices that he has continued to lose weight. It does not seem to be eating as much. He does occasionally have hypoglycemia. They have been giving his glipizide 1st thing in the morning and not always giving it with food. They were not aware of the should be given with an 30 minutes of a meal. Continues to take midodrine for orthostatic hypotension. Blood pressure is borderline low today butstable from his baseline Physical Exam Vitals: 01/04/24 1052 Temp: 36 C (96.8 F) Pulse: 99 Resp: 16 SpO2: 98% BP: 104/62 BMI: 21.93 BP Readings from Last 3 Encounters: 01/04/24 104/62 12/29/23 131/75 12/19/23 100/55 Wt Readings from Last 3 Encounters: 01/04/24 67.4 kg (148 lb 9.6 oz) 12/29/23 68.5 kg (151 lb) 12/19/23 69.4 kg (153 lb 1.6 oz) BMI Readings from Last 3 Encounters: 01/04/24 21.94 kg/m 12/29/23 22.30 kg/m 12/19/23 22.61 kg/m Physical Exam Vitals and nursing note reviewed. Constitutional: Appearance: Normal appearance. Comments: Thin, frail appearance HENT: Head: Normocephalic and atraumatic. Right Ear: External ear normal. Left Ear: External ear normal. Eyes: Extraocular Movements: Extraocular movements intact. Pupils: Pupils are equal, round, and reactive to light. Cardiovascular: Rate and Rhythm: Normal rate and regular rhythm. Heart sounds: Normal heart sounds. Pulmonary: Effort: Pulmonary effort is normal. No respiratory distress. Breath sounds: Normal breath sounds. No stridor. No wheezing, rhonchi or rales. Musculoskeletal: General: Normal range of motion. Cervical back: Normal range of motion. Comments: Ambulates independently Skin: General: Skin is warm and dry. Neurological: General: No focal deficit present. Mental Status: He is alert and oriented to person, place, and time. Cranial Nerves: No cranial nerve deficit. Psychiatric: Mood and Affect: Mood normal. Behavior: Behavior normal. Thought Content: Thought content normal. I have reviewed the following results: Assessment and Plan Recurrent UTI Klebsiella cystitis Upcoming Urology appointment. Additional dose of ceftriaxone given today. Suspect he may have trabeculated the bladder or some anatomical variant causing him to have incomplete treatment each time. Shan recommend not treating when he is asymptomatic, but given his dysautonomia he may not be symptomatic in classic ways Nausea and vomiting, unspecified vomiting type He was recently unable to complete a gastric emptying study due to vomiting. I will do a trial Reglan with each meal to see if this allows him to eat more. He does have an upcoming appointment with GI for colonoscopy and I will send a message to ensure his EGD is done as well. - Metoclopramide HCl 5 MG Oral Tablet (Reglan); Take 1 Tablet by mouth in the morning and 1 Tablet at noon and 1 Tablet before bedtime. 30 minutes before meals. Type 2 diabetes mellitus with hemoglobin A1c goal of less than 7.5% ([facility]) Discussed that I would like to drop his glipizide dose to 5 mg and make sure he is taking it arcdpt99 minutes of his meals. Discussed mechanism of action. - ADULT/PEDS OPHTHALMOLOGY/OPTOMETRY REFERRAL OP - glipiZIDE ER 5 MG Oral Tablet Extended Release 24 Hour (glipiZIDE XL); Take 1 Tablet by mouth in the morning. With breakfast.. Wrap-Up Follow Up: Return if symptoms worsen or fail to improve. Time: I spent a total of 30-39 minutes (exact time 37 mins) on the date of service in preparation, delivery, and documentation of the care provided to Lewis Alarcon excluding any time spent in the performance of separately billed services. * Torie Hall MED ASSIST - 01/04/2024 10:43 AM EDT Images from the original note were not included. Chief Complaint Patient presents with Emergency Department Follow-Up Pt here for ER follow up of UTI on 12/29/23. Pt states he is about the same as when he went to the ER. Pt has a DM eye exam scheduled for 02/05/[address] Gaines at [facility]. The importance of having a yearly diabetic eye exam has been discussed with patient. Order and/or Referral placed along with patient instructions. Provider made aware. THAIS Hwoard Diabetic Retinopathy: Evaluating Your Eyes Diabetic retinopathy is a condition that happens when diabetes damages blood vessels in the rear ofthe eye. It can lead to vision loss. To help catch it early, have a complete dilated eye exam at least once a year. During the exam, the eye healthcare provider will review your medical history, examine your eyes, and check your vision. Women who are and have pre-existing type 1 or type 2 diabetes have an increased risk of retinopathy. Women with diabetes should have an eye exam before or in the first trimester. They should continue to be monitored every trimester and for 1 year after delivery, depending on the severity of the retinopathy. The retina is the light-sensitive part of the eye that allows you to see. High blood sugar can damage blood vessels of the retina and cause them to leak or bleed. This damage can lead to abnormal blood vessel growth. This condition is called diabetic retinopathy. You may not have symptoms early in the disease. Later, there may be floaters, blurred vision, or poor night vision. There may also be partial or complete vision loss. Early cases of diabetic retinopathy can be treated by carefully controlling blood sugar, blood pressure, and cholesterol. Surgery or laser treatments may help restore lost vision. Laser surgery can shrink abnormal blood vessels or close ones that are leaking. Medicines injected in the eye can help decrease swelling of the retina. Home care Take all medicines, including insulin or oral diabetic medicine, exactly as prescribed. Follow the diet advised by your healthcare provider. If you have high cholesterol, follow a low-fat, low-cholesterol diet. Monitor blood sugars as advised. Try to achieve your ideal weight. If you smoke, quit smoking. Tobacco use worsens the effect of diabetes on your blood vessels. If you have high blood pressure, consider buying an automatic blood pressure machine. These are available at most pharmacies. Use this to monitor your blood pressure. Report your blood pressure readings to your healthcare provider. Exercise regularly. Follow-up care Follow up with your healthcare provider, or as advised. You must have a complete eye exam at least once a year, more often if needed. Untreated diabetic retinopathy can lead to complete loss of vision. Occupational therapists can help you adapt to any vision loss you have, including learning techniques to safely administer insulin. When to seek medical advice Call your healthcare provider right away if any of these occur. Increasing blurriness or any sudden changes in your vision Sudden flashes of light inside your eye New floaters (small dots or strings that seem to be moving across your field of vision) Eye pain, redness, or discharge from your eyelid New dark spots appearing in your field of vision Halos around lights Dimness of vision Partial or complete loss of vision Women with diabetes should have a complete eye exam before becoming , or as soon as possible when they find out they are . Retinopathy sometimes worsens during . Your eye exam Your eye healthcare provider uses an eye chart and other tools to check your vision. Then he or sheexamines your eyes for signs of disease. You are given eye drops to widen (dilate) your pupils. Youmay have one or more of the following tests: Tonometry to measure fluid pressure inside the eye. Slit lamp exam to allow the healthcare provider to view the structures of your eye. Ultrasound to create an image of the eye using sound waves. Ultrasound may be used if blood is found in the clear gel that fills the eye (vitreous). Ocular coherence tomography (OCT) to create an image of the retina using light waves. This shows ifthere is fluid leaking into certain parts of the eye. It can also measure the thickness of the retina. Fluorescein angiography This test may be done to check the health of the inside lining of the eye (retina). It also checks the tiny blood vessels (capillaries) that carry blood to the retina. During the test: Photographs are taken of the retina. A dye is then injected into the bloodstream through the arm or hand. The dye travels to the capillaries in the eye. More photographs are taken of the retina. The dye causes the capillaries to stand out on the photographs. You may feel brief nausea during the procedure. For a few hours after the test, your skin, eyes, and urine may appear yellow. Talk with your healthcare provider for more information about this test. Date Last Reviewed: 10/13/201519999355-0196 [employer]. [address] [place] [address], [place] [address]. All rights reserved. This information is not intended as a substitute for professional medical care. Always follow your healthcare professional's instructions. documented in this encounter Plan of Treatment Upcoming Encounters Date Type Department Care Team (Late st Contact Info) Description 01/09/2024 1:00 PM EDT Anticoagulation Pharmacy, [place] [address] [address] Pharmacist1, [facility] [place] [address] [address] 01/21/2024 2:00 PM EDT Office Visit Endocrinology [address] [place] [address] Sakina Jones MD [address], [place] [id number] 01/25/2024 3:30 PM EDT Office Visit [facility] [address] [facility] [place] [address] Laney Hogue MD [address] [place] [address] 02/21/2024 10:30 AM EDT Office Visit Urology Rolo Colon [address] [address] Nikolai Chaudhari MD [address] [address] 02/25/2024 11:20 AM EDT Office Visit Family [facility], [place] [address] [phone] Kaiser Amanda MD [address] [facility] [place] [address] 03/05/2024 1:00 PM EDT Appointment Cardiac Studies, [address] [place] [address] 03/26/2024 8:00 AM EST Hospital Encounter OR [facility], Operating Room, [facility] - 4th Floor [address] [facility] [place] [address] John [facility]ordillo MD [address] [facility] [address] 03/26/2024 8:00 AM EST - 03/26/2024 8:46 AM EST Surgery OR [facility], Operating Room, [facility] - 4th Floor [address] [place] [address] [place] [phone] John Gordillo MD [address] [place] [address] COLONOSCOPY FLEXIBLE PROXIMAL DIAGNOSTIC 04/01/2024 12:30 PM EST Office Visit Gastroenterology, [place] [address] [place] [address] Thelma Jamil PA-C [address] [place] [address] [place] [address] 06/12/2024 2:00 PM EST Office Visit Cardiology, [address] [place] [address] Clarissa Rapp PA-C [address] [place] [address] [place] [address] 10/21/2024 9:15 AM EDT Appointment Radiology, [address] [place] [address] 10/29/2024 9:45 AM EDT Office Visit Urology Aleida Rolo Rinaldi [address] [address] Bert Boogie Jr., MD [address] [place] [address] Scheduled Procedures Name Priority Associated Diagnoses Date/Ti [...] deficiency anemia type 03/26/2024 8:00 AM EST Scheduled Referrals Name Type Priority Associated Diagnoses Orde r Schedule ADULT/PEDS OPHTHALMOLOGY/OPTOM ETRY REFERRAL OP Referral Within 30 days (routine) Type 2 diabetes mellitus with hemoglobin A1c goal of less than 7.5% (HCC) Ordered: 01/04/2024 Health Maintenance Due Date Last Done Comments [...] 024, 01/10/2023, 07/07/2021, Additional history exists GFR 12/28/2024 12/29/2023, 11/12, 11/08/2023, Additional history exists DXA Scan 01/25/2025 01/25/2023, 090 01/2021, 12/10/2018 Colonoscopy 03/16/2025 03/16/2022, 110 07/2021, 08/06/2009 Colorectal Cancer Screening 03/16/2025 Lipid Panel 02/27/2028 02/26/2023, 12/0 08/2021, 05/26/2021, Additional history exists DTaP,Tdap,and Td Vaccines (3 - Td or Tdap) 12/10/2029 12/11/2019, 06/03/2014 Pneumococcal Vaccine: 65+ Years Completed 05/22/2017, 02/23/2016, 09/25/2011 Zoster Vaccines Completed 03/26/2019, 12/12, 09/27/2011 VITAMIN D LEVEL ONCE IN A LIFETIME-USE SMARTSET# [id number] Completed 07/26/2023, 02/26/2023, 01/23/2023, Additional history exists [...] this encounter Medical Devices Implanted Type Area Electrical Panel Builder Device Identifier Shelf Expiration Date Model / Serial / Lot Cement Bone Simplex Hv [employer] G - [id number] Implanted:Qty: 2 on 09/02/2020 by Gianni Hubbard MD at OR [facility] Right: Hip LUDY : ORTHOPAED[employer] 08/11/2021 [id number] / / [id number] Spacer Ring Aclde Distal Lg 14 - [id number] Implanted:Qty: 1 on 09/02/2020 by Gianni Hubbard MD at OR [facility] Right: Hip [employer]UD[employer] : ORTHOPAED[employer] 11/25/2024 [id number] / / Accolade C Cs 127 6 37/158 - [id number] Implanted:Qty: 1 on 09/02/2020 by Gianni Hubbard MD at OR [facility] Right: Hip LUDY : ORTHOPAEDICS 05/29/2023 [id number] / / [id number] Hip Cocr Lfit Head V40 28/+4 - [id number] Implanted:Qty: 1 on 09/02/2020 by Gianni Hubbard MD at OR [facility] Right: Hip LUD[employer] : ORTHOPAEDICS 11/15/2024 [id number] / / [id number] Hip Head Bipol Uhr Uni 28x52 - [id number] Implanted:Qty: 1 on 09/02/2020 by Gianni Hubabrd MD at OR [facility] Right: Hip [employer]UD[employer] : ORTHOPAEDICS 11/25/2024 [id number] / / [id number] Lens Intraoc 17.5 - [id number] - [id number] Implanted:Qty: 1 on 03/23/2022 by Rad Morgan MD at OR [facility] Left: Eye [employer] 10/11/2026 [id number] / [id number] / [id number] Lens Intraoc 18.0 - [id number] - [id number] Implanted:Qty: 1 on 03/30/2022 by Rad Morgan MD at OR [facility] Right: Eye [employer] 01/11/2027 [id number] / [id number] / [id number] documented as of this encounter Visit Diagnoses Diagnosis Recurrent UTI- Primary Urinary tract infection, site not specified Klebsiella cystitis Infection due to other gram-negative organisms in conditions classified elsewhere and of unspecified site Nausea and vomiting, unspecified vomiting type Type 2 diabetes mellitus with hemoglobin A1c [...] MAR Action Action Date Dose Rate Site cefTRIAXone (Rocephin) inj 1 g 1 g, Intramuscular, ONCE, On Sun01/04/24 at 1200, For 1 dose Given 01/04/2024 11:45 AM EDT 1 g Dorsogluteal Left documented in this encounter Additional Health Concerns [...] Power of Attor jus? No Care Teams Skilled Nursing Facility Counselor Relationship Specialty Start Date End Date Kaiser Amanda MD [address] [address] PCP - General Family Medicine 04/11/21 documented as of this encounter
--- OUTSIDE RECORDS SUMMARY | 2024-01-29 20:34 | External Medical Summary ---
Author Name Unknown Address Unknown Organization K1F:[facility] - [address] [place] [address] Laboratory Report Ordering Provider Test Date Status JAVIER ESTRADA 01/09/2024 09:01:23 Final Observation Date Value Abnormality Reference (Units ) Status BUN 01/09/2024 09:01:23 20 6-20 (mg/dL) Final Creatinine 01/09/2024 09:01:23 1.0 0.6-1.2 (mg/dL) Final Glomerular filtration rate/1.73 sq M.predicted [Volume Rate/Area] in Serum, Plasma or Blood by Creatinine-based formula (CKD-EPI) 01/09/2024 09:01:23 81 >=60 (mL/min) Final eGFR is calculated based on the CKD-EPI 2020 equation. Sodium 01/09/2024 09:01:23 140 135-146 (m mol/L) Final Potassium 01/09/2024 09:01:23 4.2 3.5-5.1 (m mol/L) Final Cl 01/09/2024 09:01:23 104 98-107 (mm ol/L) Final CO2 01/09/2024 09:01:23 24 22-32 (mmo l/L) Final Anion gap 01/09/2024 09:01:23 12 7-15 (mmol /L) Final Glucose 01/09/2024 09:01:23 89 70-120 (mg /dL) Final Albumin 01/09/2024 09:01:23 3.5 Below low normal 3.8 -5.0 (g/dL) Final AST (Aspartate aminotransferase) 01/09/2024 09:01:23 22 10-50 (U/L) Fin al Alk Phos 01/09/2024 09:01:23 47 35-130 (U/ L) Final Bilirubin, Total 01/09/2024 09:01:23 0.5 <=1 .2 (mg/dL) Final Calcium 01/09/2024 09:01:23 8.6 8.4-10.2 ( mg/dL) Final Protein 01/09/2024 09:01:23 5.9 Below low normal 6.0 -8.3 (g/dL) Final ALT (Alanine aminotransferase) 01/09/2024 09:01:23 16 10-50 (U/L) Rafael mendez Performing Location LABORATORY [facility] - [address] [place], [place] [address]teddy Niño. [place] [address]
--- OUTSIDE RECORDS SUMMARY | 2024-01-29 20:34 | External Medical Summary ---
Author Name Unknown Address Unknown Organization : Laboratory Report Ordering Provider Test Date Status JASONCUETO 01/10/2024 08:21:47 Final Observation Date Value Abnormality Reference (Units ) Status Glucose Point of Care 01/10/2024 08:21:47 87 70-120 (mg/dL) Final Performing Location
--- OUTSIDE RECORDS SUMMARY | 2024-01-29 20:34 | External Medical Summary ---
Author Name Unknown Address Unknown Organization K1F:[facility] - [address] [place] [address] Laboratory Report Ordering Provider Test Date Status JAVIER ESTRADA 01/09/2024 09:01:23 Final Observation Date Value Abnormality Reference (Units ) Status Magnesium 01/09/2024 09:01:23 1.2 Below low normal 1.5 -2.6 (mg/dL) Final Performing Location [facility] - [address] [place] [address]
--- OUTSIDE RECORDS SUMMARY | 2024-01-29 20:34 | External Medical Summary ---
Author Name Unknown Address Unknown Organization K1F:LABORATORY [facility] - [place] [address] Laboratory Report Ordering Provider Test Date Status JAVIER ESTRADA 01/09/2024 11:21:43 Final Observation Date Value Abnormality Reference (Units ) Status Troponin T 01/09/2024 11:21:43 35 Above high normal < =22 (ng/L) Final Performing Location LABORATORY [facility] - [address] [place] [address]
--- OUTSIDE RECORDS SUMMARY | 2024-01-29 20:34 | External Medical Summary ---
Author Name Unknown Address Unknown Organization K1F:LABORATORY [facility] - [address] [place] [address] Laboratory Report Ordering Provider Test Date Status JAVIER ESTRADA 01/09/2024 09:01:23 Final Warfarin Therapy
INR: 2 .0-3.0 conventional anticoagulation
INR: 2.5- 3.5 high intensity anticoagulation Observation Date Value Abnormality Reference (Units ) Status PT 01/09/2024 09:01:23 37.9 Above high normal 11 .6-15.2 (seconds) Final INR 01/09/2024 09:01:23 3.8 Above high normal 0. 8-1.2 Final Performing Location [facility] - [address] [place] [address]
--- OUTSIDE RECORDS SUMMARY | 2024-01-29 20:34 | External Medical Summary | Summary of Care ---
Author Name Unknown Organization [facility] Address [address] [facility] [place] [address] Phone [phone] Care Team Providers Care Salon Assistant Name Role Phone Kaiser Amanda MD Primary Care Provider [phone] Reason for Visit * Reason Onset Date Comments Advice 01/07/2024 Encounter Details Date Type Department Care Team (Late st Contact Info) Description [facility]/07[facility] [place] [address] Kaiser Amanda MD 21 [place] [address] Advice Allergies Active Allergy Reactions Criticality Noted Date Comments Cat Dander Itching 07/14/2016 documented as of this encounter (statuses as of 01/07/2024) Medications Medication Sig Dispensed Refills Start Date End Date Status [employer] Ultra 2 w/Device KitIndications:Type 2 diabetes mellitus with hemoglobin A1c goal of less than 7.5% ([facility]) Testing blood sugars twice daily Dx: E11.9 1 Kit 11 06/06/2021 Active OneTouch Delica Lancets 30GIndications:Type 2 diabetes mellitus with hemoglobin A1c goal of less than 7.5% ([facility]),Type 2 diabetes mellitus with polyneuropathy ([facility]) Check BS once daily E11.9 [...] Blood)Indications:T ype 2 diabetes mellitus with polyneuropathy ([facility]),Type 2 diabetes mellitus with hemoglobin A1c goal of less than 7.5% ([facility]) USE STRIP TO CHECK GLUCOSE ONCE [...] MG Sublingual Tablet Sublingual (Nitrostat)Indicati ons:Stable angina ([facility]) Place 1 Tablet under the tongue [...] Do not take at bedtime.. 270 Tablet 12/11/2023 Active AZO Cranberry 250-30 MG Oral [...] as of this encounter (statuses as of 01/07/2024) Active Problems Problem Noted Date Diagnosed Date [...] as of this encounter (statuses as of 01/07/2024) Resolved Problems Problem Noted Date Diagnosed Date [...] as of this encounter (statuses as of 01/07/2024) Immunizations Name Administration Dates Next Due COVID-19 mRNA, LNP-s, No Pre serve, 2-Dose Series ([employer]) 04/23/2021,08/09/2020,07/12/2020 Covid-19, Mrna, Lnp-s, Pf, B ivalent, [...] do you have serious difficulty h earing? No-VENETIE 11/07/2023 Are you blind or do you [...] encounter Miscellaneous Notes * Telephone Encounter - Torie Hall MED ASSIST - 01/07/2024 2:32 PM EDT aware and verbalized understanding. * Telephone Encounter - Kaiser Amanda MD - 01/07/2024 11:47 AM EDT Please advise I want him to continue on the 5 mg of glipizide and take it with meals. Taking on an empty stomach could cause him to have hypoglycemia. Can discontinue the Reglan if he feels it is not helping. Open message in with the doctor who is scheduled to perform his colonoscopy and he would like him to have an EGD within the next 1-2 weeks. Someone from GI will be calling to schedule today. * Telephone Encounter - Leida Suarez CMA - 01/07/2024 10:28 AM EDT Call Details Med Question(s) MED QUESTION(S): Yes Medication Questions: (medication not helping) Med Side Effect-Dizziness: Yes Med Side Effect-Nausea Yes Med Side Effect-Urinary Symptoms: Yes Med Side Effect-Additional Comments: weakness Patient's Action(s) What have you done or taken for this problem? Metoclopramide HCl 5 MG glipizide Additional Comment(s) Additional Comments: New medication is making patient sick in stomach and getting lightheaded. The glipizide was decreased to 5mg to help with dizziness but it is much worse than with the higher dose. Does not think this is helping at all with the dizziness. Patient is Getting weaker, taking antibiotic for uti several days- Metoclopramide but it has gottenworse and patient feels like he is not empty bladder . What should they do, medication is not helping. Called and spoke with pt and on speaker phone. Pt feels the UTI is not improving. Still on abx. C/o feeling weak, lightheaded, nausea and burning with urination. Denies any fever or abd pain. Heis trying to stay hydrated, but feels nauseous after eating or drinking. No vomiting. He is able tourinate, but feels he is not able to empty his bladder. He last urinated at 830 am today. They know he has an enlarged prostate but they are concerned that this is d/t the UTI. Temp currently is 97.2F. took BP yesterday: 119/70. Emeterio with Urology in February. They have started to take Glipizideproperly as directed by Dr. Amanda: 30 min within eating a meal. Feels Reglan is not helping. Please advise on next steps * Telephone Encounter - Sobeida Andersen OSA - 01/07/2024 10:17 AM EDT 1. When were you seen for this problem? 01/04/2024 2. What provider did you see for this problem? Dr Ballard 3. What medications are you presently taking? Metoclopramide 4. What is it that is no better? Please refer to Call Details. documented in this encounter Plan of Treatment Upcoming Encounters Date Type Department Care Team (Late st Contact Info) Description 01/09/2024 1:00 PM EDT Anticoagulation Pharmacy, [place] [address] [place] [address] Pharmacist1, [facility] [place] [address] [place] [address] 01/21/2024 2:00 PM EDT Office Visit Endocrinology [address] [place] [address] Sakina Jones MD [address] [facility] [place] [address] 01/25/2024 3:30 PM EDT Office Visit MOHS Surgery [facility] [address] [place] [address] Laney Hogue MD 200 [place] [address] 02/21/2024 10:30 AM EDT Office Visit Urology [place] [address] [facility] [address] [place] [address] Nikolai Chaudhari MD [address] [place] [address] 02/25/2024 11:20 AM EDT Office Visit Family [facility], [place] [address] [place] [phone] Kaiser Amanda MD 21 [place] [address] 03/05/2024 1:00 PM EDT Appointment Cardiac Studies, [address] [place] [address] 03/26/2024 8:00 AM EST Hospital Encounter OR [facility], Operating Room, [facility] - 4th Floor [address] [facility] [place] [address] John Gordillo MD [address] [place] [address] 03/26/2024 8:00 AM EST - 03/26/2024 8:46 AM EST Surgery OR [facility], Operating Room, [facility] - 4th Floor [address] [facility] [place] [address] John Gordillo MD [address] [place] [address] COLONOSCOPY FLEXIBLE PROXIMAL DIAGNOSTIC 04/01/2024 12:30 PM EST Office Visit Gastroenterology, [facility] [address] [place] [address] Thelma Jamil PA-C [address] [place], [place] [address] [address] 06/12/2024 2:00 PM EST Office Visit Cardiology, [address] [place] [address] Clarissa Rapp PA-C 400 [facility] [place] [address] 10/21/2024 9:15 AM EDT Appointment Radiology, [address] [place] [address] 10/29/2024 9:45 AM EDT Office Visit Urology [place] [address] [place] [address] [place] [address] Keagan Thayer, Bert Giron MD [address] [place] [address] Scheduled Procedures Name Priority Associated Diagnoses Date/Ti [...] 02/27/2028 02/26/2023, 1208/2021, 05/26/2021, Additional history exists DTaP,Tdap,and Td Vaccines (3 - Td or Tdap) 12/10/2029 12/11/2019, 06/03/2014 Pneumococcal Vaccine: 65+ Years Completed 05/22/2017, 02/23/2016, 09/25/2011 Zoster Vaccines Completed 03/26/2019, 12/12, 09/27/2011 VITAMIN D LEVEL ONCE IN A LIFETIME-USE SMARTSET# [id number] Completed 07/26/2023, 02/26/2023, 01/23/2023, Additional history exists [...] this encounter Medical Devices Implanted Type Area Data Lead Device Identifier Shelf Expiration Date Model / Serial / Lot Cement Bone Simplex Hv & G - [id number] Implanted:Qty: 2 on 09/02/2020 by Gianni Hubbard MD at OR [facility] Right: Hip LUDY : ORTHOPAEDICS 08/11/2021 6195-1-010 / / [id number] Spacer Ring Aclde Distal Lg 14 - [id number] Implanted:Qty: 1 on 09/02/2020 by Gianni Hubbard MD at OR [facility] Right: Hip LUDY : ORTHOPAEDICS 11/25/2024 [id number] / / Accolade C Cs 127 6 37/158 - [id number] Implanted:Qty: 1 on 09/02/2020 by Gianni Hubbard MD at OR [facility] Right: Hip LUDY : ORTHOPAEDICS 05/29/2023 [id number] / / [id number] Hip Cocr Lfit Head V40 28/+4 - [id number] Implanted:Qty: 1 on 09/02/2020 by Gianni Hubbard MD at OR [facility] Right: Hip LUDY : ORTHOPAEDICS 11/15/2024 6260-9-228 / / [id number] Hip Head Bipol Uhr Uni 28x52 - [id number] Implanted:Qty: 1 on 09/02/2020 by Gianni Hubbard MD at OR [facility] Right: Hip LUDY : ORTHOPAEDICS 11/25/2024 [id number] / / [id number] Lens Intraoc 17.5 - [id number] - [id number] Implanted:Qty: 1 on 03/23/2022 by Rad Morgan MD at OR [facility] Left: Eye BAUSCH & LOMB 10/11/2026 [id number] / [id number] / [id number] Lens Intraoc 18.0 - [id number] - [id number] Implanted:Qty: 1 on 03/30/2022 by Rad Morgan MD at OR [facility] Right: Eye BAUSCH & LOMB 01/11/2027 [id number] / [id number] / [id number] documented as of this encounter Additional Health [...] Power of Attor jus? No Care Teams Salon Assistant Relationship Specialty Start Date End Date Kaiser Amanda MD 21 [facility] [place] [address] PCP - General Family Medicine 04/11/21 documented as of this encounter
--- OUTSIDE RECORDS SUMMARY | 2024-01-29 20:34 | External Medical Summary ---
Author Name Unknown Address Unknown Organization : Laboratory Report Ordering Provider Test Date Status JASONCUETO 01/10/2024 11:37:34 Final Observation Date Value Abnormality Reference (Units ) Status Glucose Point of Care 01/10/2024 11:37:34 142 Above high normal 70-120 (mg/dL) Final Performing Location
--- OUTSIDE RECORDS SUMMARY | 2024-01-29 20:34 | External Medical Summary | Summary of Care ---
Author Name Unknown Organization [facility] Address [address] [facility] [address] Phone [phone] Care Team Providers Care Paver Installer Name Role Phone Kaiser Amanda MD Primary Care Provider [phone] Reason for Visit * Reason Onset Date Comments Referral 10/05/2023 Encounter Details Date Type Department Care Team (Late st Contact Info) Description 10/05/2023 Telephone Cardiology, [place] [address] [facility] [place] [id number] [place] [facility] Cardiology [address] [facility] [place] [address] Referral Allergies Active Allergy Reactions Criticality Noted Date Comments Cat Dander Itching 07/14/2016 documented as of this encounter (statuses as of 01/04/2024) Medications Medication Sig Dispensed Refills Start Date End Date Status Smartpay Ultra 2 w/Device KitIndications:Type 2 diabetes mellitus with hemoglobin A1c goal of less than 7.5% ([facility]) Testing blood sugars twice daily Dx: E11.9 1 Kit 11 06/06/2021 Active OneTouch Delica Lancets 30GIndications:Type 2 diabetes mellitus with hemoglobin A1c goal of less than 7.5% ([facility]),Type 2 diabetes mellitus with polyneuropathy ([facility]) Check BS once daily E11.9 100 [...] Blood)Indications: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 ([facility]),Type 2 diabetes mellitus with hemoglobin A1c goal of less than 7.5% ([facility]) USE STRIP TO CHECK GLUCOSE ONCE [...] 10/07/2023 Nitroglycerin 0.4 MG Sublingual Tablet Sublingual (Nitrostat)Indicatio ns:Stable angina ([facility]) Place 1 Tablet under the tongue [...] as of this encounter (statuses as of 01/04/2024) Active Problems Problem Noted Date Diagnosed Date [...] as of this encounter (statuses as of 01/04/2024) Resolved Problems Problem Noted Date Diagnosed Date [...] as of this encounter (statuses as of 01/04/2024) Immunizations Name Administration Dates Next Due COVID-19 [...] 10/30/2023 Does the household have a re lar source of income? (Household - for ages [...] you have serious difficulty h earing? No 09/09/2023 Are you blind or do you have serious difficulty seeing, even when wearing glasses? No 09/09/2023 Do you have serious difficul ty walking or climbing stairs? (5 years old or older) Yes 09/09/2023 Do you have difficulty dress ing or bathing? (5 years old or older) Yes 09/09/2023 Because of a physical, menta l, or emotional condition, do you have difficulty doing errands alone such as visiting a doctor s office or shopping? (15 years old or older) Yes 09/09/19 Cognitive Status Response Date of Assessm ent Because of a physical, menta l, or emotional condition, do you have serious difficulty concentrating, remembering, or making decisions? (5 years old or older) No 09/09/2023 documented as of this encounter Miscellaneous Notes * Telephone Encounter - Ruth Lewis, defect repairer glassware - 10/05/2023 1:06 PM EDT Comments Pharmacist Medication Therapy Management: Minimum frequency patient should be seen in person for medication management: as appropriate per clinical condition and patient status By my signature, I understand that my patient Lewis Alarcon will have his medication therapy managed by the [facility] Medication Therapy [facility] ([facility]) per established policies, procedures, and protocols. I also certify that this referral may serve as an initiation of service forthe management of drug therapy in the above noted patient. [facility] providers will be responsible for scheduling patient visits, obtaining appropriate laboratory studies, and adjusting medication management therapy per patient's need, in addition to those roles spelled out in the clinic policy, procedures, and drug management protocols. I understand that the service provided by the [facility] Clinic is voluntary and have informed patient that they can refuse the service at their discretion. I am aware that the [facility] will provide me with a copy of the patient encounter via my [employer]. I authorize the [facility] Clinic to carry out these activities on my behalf. I consider this program to be a necessary part of the patient's medical care. PHILIP Rodriguez Order Specific Questions Referring Provider Role: Specialist Specialty: Cardio Reason for Referral: HF Referral Priority Within 10 days (routine) Where should this appointment be scheduled? Mario documented in this encounter Plan of Treatment Upcoming Encounters Date Type Department Care Team (Late st Contact Info) Description 01/09/2024 1:00 PM EDT Anticoagulation Pharmacy, [place] [address] [address] Pharmacist1, [facility] [place] [address] [place] [address] 01/21/2024 2:00 PM EDT Office Visit Endocrinology [address] [place] [address] Sakina Jones MD [address] [place] [address] 01/25/2024 3:30 PM EDT Office Visit MOHS Surgery [facility] 200 [place] [address] Laney Hogue MD 200 [place] [address] 02/21/2024 10:30 AM EDT Office Visit Urology [place] [address] [place] [address] [place] [address] Nikolai Chaudhari MD [address] [place] [address] 02/25/2024 11:20 AM EDT Office Visit Family Practice, [place] [address] [place] [phone] Kaiser Amanda MD [address] [place] [address] 03/05/2024 1:00 PM EDT Appointment Cardiac Studies, [address] [place] [address] 03/26/2024 8:00 AM EST Hospital Encounter OR [facility], Operating Room, [facility] - 4th Floor [address] [facility] [place] [address] John Gordillo MD [address] [place] [address] 03/26/2024 8:00 AM EST - 03/26/2024 8:46 AM EST Surgery OR [facility], Operating Room, [facility] - 4th Floor 400 [facility] [place] [address] John Gordillo MD [address] [place] [address] COLONOSCOPY FLEXIBLE PROXIMAL DIAGNOSTIC 04/01/2024 12:30 PM EST Office Visit Gastroenterology, [facility] [address] [facility] [place] [address] Thelma Jamil PA-C [address] [place], [place] [address] [address] 06/12/2024 2:00 PM EST Office Visit Cardiology, [address] [place] [address] Clarissa Rapp PA-C [address] [place] [address] [place] [address] 10/21/2024 9:15 AM EDT Appointment Radiology, [address] [place] [address] 10/29/2024 9:45 AM EDT Office Visit Urology [place] [address] [place] [address] [place] [address] Keagan Thayer, Bert Giron MD [address] [place] [address] Scheduled Procedures Name Priority Associated Diagnoses Date/Ti [...] 01/25/2023, 0 01/2021, 12/10/2018 Colonoscopy 03/16/2025 03/16/2022, 07/2021, 08/06/2009 Colorectal Cancer Screening 03/16/2025 Lipid Panel 02/27/2028 02/26/2023, 120 08/2021, 05/26/2021, Additional history exists DTaP,Tdap,and Td Vaccines (3 - Td or Tdap) 12/10/2029 12/11/2019, 06/03/2014 Pneumococcal Vaccine: 65+ Years Completed 05/22/2017, 02/23/2016, 09/25/2011 Zoster Vaccines Completed 03/26/2019, 12/12, 09/27/2011 VITAMIN D LEVEL ONCE IN A LIFETIME-USE SMARTSET# [id number] Completed 07/26/2023, 02/26/2023, 01/23/2023, Additional history exists [...] this encounter Medical Devices Implanted Type Area Rubber And Pounder Device Identifier Shelf Expiration Date Model / Serial / Lot Cement Bone Simplex Hv & G - [id number] Implanted:Qty: 2 on 09/02/2020 by Gianni Hubbard MD at OR [facility] Right: Hip LUDY : ORTHOPAEDICS 08/11/2021 6195-1-010 / / [id number] Spacer Ring Aclde Distal Lg 14 - [id number] Implanted:Qty: 1 on 09/02/2020 by Gianni Hubbard MD at OR [facility] Right: Hip LUDY : ORTHOPAEDICS 11/25/2024 6286-0928 / / Accolade C Cs 127 6 37/158 - [id number] Implanted:Qty: 1 on 09/02/2020 by Gianni Hubbard MD at OR [facility] Right: Hip LUDY : ORTHOPAEDICS 05/29/2023 [id number] / / [id number] Hip Cocr Lfit Head V40 28/+4 - [id number] Implanted:Qty: 1 on 09/02/2020 by Gianni Hubbard MD at OR [facility] Right: Hip LUDY : ORTHOPAEDICS 11/15/2024 6260-9-228 / / [id number] Hip Head Bipol Uhr Uni 28x52 - [id number] Implanted:Qty: 1 on 09/02/2020 by Gianni Hubbard MD at OR [facility] Right: Hip LUDY : ORTHOPAEDICS 11/25/2024 UH1-52-28 / / [id number] Lens Intraoc 17.5 - [id number] - [id number] Implanted:Qty: 1 on 03/23/2022 by Rad Morgan MD at OR [facility] Left: Eye BAUSCH & LOMB 10/11/2026 [id number] / [id number] / [id number] Lens Intraoc 18.0 - [id number] - [id number] Implanted:Qty: 1 on 03/30/2022 by Rad Morgan MD at OR [facility] Right: Eye BAUSCH & LOMB 01/11/2027 [id number] / [id number] / [id number] documented as of this encounter Additional Health Concerns Infection Onset Date Last Indicated Resolved Time Gastrointestinal Rule-Out 10/07/2023 10/07/2023 8:20 AM EDT C. difficile Rule-Out 10/19/2023 10/19/20232023 7:47 PM EDT C. difficile Rule-Out Comment:Rule out auto after 36 hours 12/09/2023 12/09/2023 12/14/2023 2:48 PM E DT Gastrointestinal Rule-Out 12/09/2023 12/09/2023 documented as of [...] Power of Attor jus? No Care Teams Paver Installer Relationship Specialty Start Date End Date Kaiser Amanda MD [address] [place] [address] PCP - General Family Medicine 04/11/21 documented as of this encounter
--- OUTSIDE RECORDS SUMMARY | 2024-01-29 20:34 | External Medical Summary ---
Author Name Unknown Address Unknown Organization K1F:[facility] - [address] [place] [address] Laboratory Report Ordering Provider Test Date Status JAVIER ESTRADA 01/09/2024 09:01:23 Final Observation Date Value Abnormality Reference (Units ) Status SYNC LEUKOCYTES IN BLOOD BY AUTOMATED COUNT 01/09/2024 09:01:23 7.98 4.00-10.80 (K/uL) Final Segs 01/09/2024 09:01:23 61.7 40.0-75.0 (%) Final Lymphs % 01/09/2024 09:01:23 25.6 18.0-42.0 (%) Final Monos 01/09/2024 09:01:23 7.6 1.0-11.0 (%) Final Eosinophils 01/09/2024 09:01:23 4.0 0.0-6.0 (%) Final Basos 01/09/2024 09:01:23 0.6 0.0-2.0 (%) Final Immature Granulocyte, Percent 01/09/2024 09:01:23 0.5 0.0-2.0 (%) Final Absolute Segs 01/09/2024 09:01:23 4.92 1.80-7.70 (K/uL) Final Lymphs, absolute 01/09/2024 09:01:23 2.04 1.00-4.80 (K/ul) Final Monos, Abs 01/09/2024 09:01:23 0.61 0.00-1.10 (K/uL) Final Eos, Abs 01/09/2024 09:01:23 0.32 0.00-0.70 (K/uL) Final Basos, Abs 01/09/2024 09:01:23 0.05 0.00-0.20 (K/uL) Final Immature Granulocytes, Number 01/09/2024 09:01:23 0.04 0.00-0.20 (K/uL) Final Performing Location [facility] [place] [address]
--- OUTSIDE RECORDS SUMMARY | 2024-01-29 20:34 | External Medical Summary | Summary of Care ---
Author Name Unknown Organization [facility] Address [address] [facility] [place] [address] Phone [phone] Care Team Providers Care Brake Machine Operator Name Role Phone Kaiser Amanda MD Primary Care Provider [phone] Reason for Visit * Reason Onset Date Comments Advice 01/07/2024 Encounter Details Date Type Department Care Team (Late st Contact Info) Description [facility]/07[facility] [place] [phone] Kaiser Amanda MD 21 [place] [address] Advice Allergies Active Allergy Reactions Criticality Noted Date Comments Cat Dander Itching 07/14/2016 documented as of this encounter (statuses as of 01/07/2024) Medications Medication Sig Dispensed Refills Start Date End Date Status FaceTags Ultra 2 w/Device KitIndications:Type 2 diabetes mellitus with hemoglobin A1c goal of less than 7.5% ([facility]) Testing blood sugars twice daily Dx: E11.9 1 Kit 11 06/06/2021 Active OneTouch Delica Lancets 30GIndications:Type 2 diabetes mellitus with hemoglobin A1c goal of less than 7.5% ([facility]),Type 2 diabetes mellitus with polyneuropathy ([facility]) Check BS once daily E11.9 100 Each [...] Blood)Indications:T ype 2 diabetes mellitus with polyneuropathy ([facility]),Type 2 diabetes mellitus with hemoglobin A1c goal of less than 7.5% ([facility]) USE STRIP TO CHECK GLUCOSE ONCE DAILY [...] MG Sublingual Tablet Sublingual (Nitrostat)Indicati ons:Stable angina ([facility]) Place 1 Tablet under the tongue every [...] mRNA, LNP-s, No Pre serve, 2-Dose Series (Esphion) 04/23/2021,08/09/2020,07/12/2020 Covid-19, Mrna, Lnp-s, Pf, B ivalent, [...] do you have serious difficulty h earing? No-TIMBI-SHA SHOSHONE 11/07/2023 Are you blind or do you [...] encounter Miscellaneous Notes * Telephone Encounter - Kaiser Amanda MD [...] Description 01/09/2024 1:00 PM EDT Anticoagulation Pharmacy, [place] [address] [place] [address] Pharmacist1, [facility] [place] [address] [place] [address] 01/21/2024 2:00 PM EDT Office Visit Endocrinology [address] [place] [address] Sakina Jones MD [address] [facility] ALYSSA, [place] [id number] 01/25/2024 3:30 PM EDT Office Visit [facility] Surgery [facility] [address] [place] [address] Laney Hogue MD 200 [place] [address] 02/21/2024 10:30 AM EDT Office Visit Urology [place] 27 [facility] [address] [place] [address] Nikolai Chaudhari MD [address] [place] [address] 02/25/2024 11:20 AM EDT Office Visit Family [facility], [place] [address] [place] [phone] Kaiser Amanda MD 21 [facility] [place] [address] 03/05/2024 1:00 PM EDT Appointment Cardiac Studies, [address] [place] [address] 03/26/2024 8:00 AM EST Hospital Encounter [facility], Operating Room, [facility] - 4th Floor [address] [place] [address] [place] [phone] John Gordillo MD [address] [place] [address] 03/26/2024 8:00 AM EST - 03/26/2024 8:46 AM EST Surgery [facility], Operating Room, [facility] - 4th Floor [facility] [address] John Gordillo MD [address] [place] [address] COLONOSCOPY FLEXIBLE PROXIMAL DIAGNOSTIC 04/01/2024 12:30 PM EST Office Visit Gastroenterology, [facility] 310 [facility] [place] [address] Thelma Jamil PA-C 310 [place] [address] 06/12/2024 2:00 PM EST Office Visit Cardiology, [place] 400 [facility] [place] [address] Clarissa Rapp PA-C 400 [facility] [place] [address] 10/21/2024 9:15 AM EDT Appointment Radiology, [facility] 400 [facility] [place] [address] 10/29/2024 9:45 AM EDT Office Visit Urology [place] [address] [place] [address] Bert Boogie Jr., MD [address] [place] [address] Scheduled Procedures Name Priority Associated Diagnoses Date/Ti [...] D LEVEL ONCE IN A LIFETIME-USE SMARTSET# 47219 Completed 07/26/2023, 02/26/2023, 01/23/2023, Additional history exists [...] this encounter Medical Devices Implanted Type Area Appeals Officer Device Identifier Shelf Expiration Date Model / Serial / Lot Cement Bone Simplex Hv & G - [id number] Implanted:Qty: 2 on 09/02/2020 by Gianni Hubbard MD at OR [facility] Right: Hip LDUY : ORTHOPAEDICS 08/11/2021 6195-1-010 / / [id number] Spacer Ring Aclde Distal Lg 14 - [id number] Implanted:Qty: 1 on 09/02/2020 by Gianni Hubbard MD at OR [facility] Right: Hip LUDY : ORTHOPAEDICS 11/25/2024 [id number] / / Accolade C Cs 127 6 37/158 - [id number] Implanted:Qty: 1 on 09/02/2020 by Gianni Hubbard MD at OR [facility] Right: Hip LUDY : ORTHOPAEDICS 05/29/2023 [id number] / / [id number] Hip Cocr Lfit Head V40 28/+4 - [id number] Implanted:Qty: 1 on 09/02/2020 by Gianni Hubbard MD at OR [facility] Right: Hip LUDY : ORTHOPAEDICS 11/15/2024 6260-9-228 / / [id number] Hip Head Bipol r [facility] 28x52 - [id number] Implanted:Qty: 1 on 09/02/2020 by Gianni Hubbard MD at OR [facility] Right: Hip LUDY : ORTHOPAEDICS 11/25/2024 UH1-52-28 / / [id number] Lens Intraoc 17.5 - [id number] - [id number] Implanted:Qty: 1 on 03/23/2022 by Rad Morgan MD at OR [facility] Left: Eye BAUSCH & LOMB 10/11/2026 [id number] / [id number] / [id number] Lens Intraoc 18.0 - [id number] - [id number] Implanted:Qty: 1 on 03/30/2022 by Rad Morgan MD at OR [facility] Right: Eye BAUSCH & LOMB 01/11/2027 [id number] / [id number] / [id number] documented as of this encounter Additional Health [...] Power of Attor jus? No Care Teams Brake Machine Operator Relationship Specialty Start Date End Date Kaiser Amanda MD [address] [place] [address] PCP - General Family Medicine 04/11/21 documented as of this encounter
--- OUTSIDE RECORDS SUMMARY | 2024-01-29 20:35 | External Medical Summary | Summary of Care ---
Author Name Unknown Organization [facility] Address [address] [facility] [address] Phone [phone] Care Team Providers Care Air Traffic Control Supervisor Name Role Phone Kaiser Amanda MD Primary Care Provider [phone] Reason for Visit * Precert (Within 10 days (routine)) - Authorized Specialty Diagnoses / Procedures Referred By Contac t Referred To Contact Radiology Diagnoses Abdominal pain, generalized Change in bowel habits Early satiety Weight loss Iron deficiency anemia, unspecified iron deficiency anemia type Procedures NM GASTRIC EMPTYING STUDY SOLID Thelma Jamil PA-C [address] [place], [place] [address] [address] Referral ID Status Reason Start Date Expiration Date V isits Requested Visits Authorized [id number] Authorized 12/19/2023 999 999 Encounter Details Date Type Department Care Team (Latest Contact Info) Description 01/02/2024 6:31 AM EDT Hospital Encounter Radiology, [facility] 400 [facility] [place] [address] Arrived Discharge Disposition: Home - Self Care Allergies Active Allergy Reactions Criticality Noted Date Comments Cat Dander Itching 07/14/2016 documented as of this encounter (statuses as of 01/03/2024) Medications Medication Sig Dispensed Refills Start Date End Date Status OneTouch Ultra 2 w/Device KitIndications:Type 2 diabetes mellitus with hemoglobin A1c goal of less than 7.5% ([facility]) Testing blood sugars twice daily Dx: E11.9 1 Kit 11 06/06/2021 Active Sincere Bhatt Lancets 30GIndications:Type 2 diabetes mellitus with hemoglobin [...] Tablet by mouth every evening. 09/12/2022 Active glipiZIDE ER 10 MG Oral Tablet Extended Release 24 Hour (Glucotrol XL)Indications:Type 2 diabetes mellitus with hemoglobin A1c goal of less than 7.5% ([facility]) TAKE 1 TABLET BY MOUTH DAILY. TAKE 30 MINUTES BEFORE A MEAL 90 Tablet 3 12/26/2022 Active Hydrocortisone 2.5 % External Cream Apply to eyebrows twice daily for 3-5 days at a time as needed for flares 60 g 2 01/19/2023 Active ZoomDarius Moeller In Vitro Strip (Glucose Blood)Indications:T ype 2 [...] anticoagulation clinic 90 Tablet 3 11/28/2023 Active Midodrine HCl 5 MG Oral [...] the morning 90 Capsule 3 12/27/2023 Active Cefpodoxime Proxetil 200 MG Oral Tablet Take 1 Tablet by mouth in the morning and 1 Tablet before bedtime. Do all this for 10 days. Do not start before December 30, 2023. 20 Tablet 12/30/2023 01/09/20 Active documented as of this encounter (statuses as of 01/03/2024) Active Problems Problem Noted Date Diagnosed Date [...] as of this encounter (statuses as of 01/03/2024) Resolved Problems Problem Noted Date Diagnosed Date [...] as of this encounter (statuses as of 01/03/2024) Immunizations Name Administration Dates Next Due COVID-19 mRNA, LNP-s, No Pre serve, 2-Dose Series ([employer]) 04/23/2021,08/09/2020,07/12/2020 Covid-19, Mrna, Lnp-s, Pf, B ivalent, [...] do you have serious difficulty h earing? No-BREVIG MISSION 11/07/2023 Are you blind or do you [...] No 11/07/2023 documented as of this encounter Plan of Treatment Upcoming Encounters Date Type Department Care Team (Late st Contact Info) Description 01/04/2024 10:40 AM EDT Office Visit Family Practice, [place] [address] [place] [phone] Kaiser Amanda MD [address] [place] [address] 01/09/2024 1:00 PM EDT [place] [address] Pharmacist1, [facility] [place] [address] 01/21/2024 2:00 PM EDT Office Visit Endocrinology [address], [place] [address] [place] [phone] Sakina Jones MD [address] [facility] [place] [address] 01/25/2024 3:30 PM EDT Office Visit [facility] [address] [place] [address] Laney Hogue MD [address] [place] [address] 02/21/2024 10:30 AM EDT Office Visit Urology Aleida Rinaldi [place] [address] [address] [place] [address] Nikolai Chaudhari MD 27 [facility] [place] [address] 02/25/2024 11:20 AM EDT Office Visit [facility] 21 [facility] [place] [phone] Kaiser Amanda MD 21 [place] [address] 03/05/2024 1:00 PM EDT Appointment Cardiac Studies, [address] [place] [address] 03/26/2024 8:00 AM EST Hospital Encounter [facility], Operating Room, [facility] - 4th Floor 400 [facility] [place] [address] John Gordillo MD [address] [place] [address] 03/26/2024 8:00 AM EST - 03/26/2024 8:46 AM EST Surgery OR [facility], Operating Room, [facility] - 4th Floor 400 [facility] [address] John Gordillo MD [address] [place] [address] COLONOSCOPY FLEXIBLE PROXIMAL DIAGNOSTIC 04/01/2024 12:30 PM EST Office Visit Gastroenterology, [facility] 310 [facility] [place] [phone] Thelma Jamil PA-C 310 [place] [address] 06/12/2024 2:00 PM EST Office Visit Cardiology, [place] 400 [place] [place] [address] Clarissa Rapp PA-C 400 [facility] [place] [address] 10/21/2024 9:15 AM EDT Appointment Radiology, [facility] 400 [facility] [place] [address] 10/29/2024 9:45 AM EDT Office Visit Urology [place] [address] [facility] [address] [place] [address] Bert Boogie Jr., MD [address] [place] [address] Scheduled Procedures Name Priority Associated Diagnoses Date/Ti [...] 07/07/2021, Additional history exists GFR 12/28/2024 12/29/2023, 07/2 12/2023, 11/08/2023, Additional history exists DXA Scan 01/25/2025 01/25/2023, 090 01/2021, 12/10/2018 Colonoscopy 03/16/2025 03/16/2022, 110 07/2021, 08/06/2009 Colorectal Cancer Screening 03/16/2025 Lipid Panel 02/27/2028 02/26/2023, 1208/2021, 05/26/2021, Additional history exists DTaP,Tdap,and Td Vaccines (3 - Td or Tdap) 12/10/2029 12/11/2019, 06/03/2014 Pneumococcal Vaccine: 65+ Years Completed 05/22/2017, 02/23/2016, 09/25/2011 Zoster Vaccines Completed 03/26/2019, 12/12, 09/27/2011 VITAMIN D LEVEL ONCE IN A LIFETIME-USE SMARTSET# [id number] Completed 07/26/2023, 02/26/2023, 01/23/2023, Additional history exists [...] this encounter Medical Devices Implanted Type Area Ad Operations Associate Device Identifier Shelf Expiration Date Model / Serial / Lot Cement Bone Simplex Hv & G - [id number] Implanted:Qty: 2 on 09/02/2020 by Gianni Hubbard MD at OR [facility] Right: Hip LUDY : ORTHOPAEDICS 08/11/2021 6195-1-010 / / [id number] Spacer Ring Aclde Distal Lg 14 - [id number] Implanted:Qty: 1 on 09/02/2020 by Gianni Hubbard MD at OR [facility] Right: Hip LUDY : ORTHOPAEDICS 11/25/2024 [id number] / / Accolade C Cs 127 6 37/158 - [id number] Implanted:Qty: 1 on 09/02/2020 by Gianni Hubbard MD at OR [facility] Right: Hip LUDY : ORTHOPAEDICS 05/29/2023 6057-0637D / / [id number] Hip Cocr Lfit Head V40 28/+4 - [id number] Implanted:Qty: 1 on 09/02/2020 by Gianni Hubbard MD at OR [facility] Right: Hip LUDY : ORTHOPAEDICS 11/15/2024 6260-9-228 / / [id number] Hip Head Bipol [employer] 28x52 - [id number] Implanted:Qty: 1 on 09/02/2020 by Gianni Hubbard MD at OR [facility] Right: Hip LUDY : ORTHOPAEDICS 11/25/2024 UH1-52-28 / / [id number] Lens Intraoc 17.5 - [id number] - [id number] Implanted:Qty: 1 on 03/23/2022 by Rad Morgan MD at OR [facility] Left: Eye BAUSCH & LOMB 10/11/2026 [id number] / [id number] / [id number] Lens Intraoc 18.0 - [id number] - [id number] Implanted:Qty: 1 on 03/30/2022 by Rad Morgan MD at OR [facility] Right: Eye BAUSCH & LOMB 01/11/2027 [id number] / [id number] / [id number] documented as of this encounter Procedures Procedure Name Priority Date/Time Associated Diagnosis Comments NM GASTRIC EMPTYING STUDY SOLID Routine 01/02/2024 10:34 AM EDT Abdominal pain, generalized Change in bowel habits Early satiety Weight loss Iron deficiency anemia, unspecified iron deficiency anemia type documented in this encounter Results * NM GASTRIC EMPTYING STUDY SOLID (01/02/2024 10:34 AM EDT) Anatomical Region Laterality Modality GI, Abdomen Nuclear Medicine 01/02/2024 11:0 6 AM EDT Impressions 01/02/2024 12:07 PM EDT IMPRESSION Incomplete exam. Patient did not ingest the entire standard meal and vomited a portion of the meal prior to 1 hour imaging. Therefore, the exam was discontinued since additional retention counts would be inaccurate. I have personally reviewed this examination and agree with the resident/fellow physician's interpretation. Narrative 01/02/2024 12:07 PM EDT EXAM NM GASTRIC EMPTYING STUDY SOLID - 01/02/2024 10:34 am HISTORY early satiety, weight loss, abdominal pain COMPARISON None. TECHNIQUE The patient orally ingested a meal consisting of 1 oz scrambled eggs labeled with 500 microcuries of Tc-99m sulfur colloid, 1 bite of toast without jelly, and 1 oz water. Anterior and posterior abdominal scintigraphic imaging was performed, and geometric mean was calculated at approximately 1 hour following ingestion. Imaging at 2 and 4 hours following ingestion were not obtained as patient had episode emesis prior to 1 hour imaging. FINDINGS Visually, there is passage of the radiotracer from the stomach into the small bowel. Retention of activity within the stomach at the following time intervals was obtained (compared to STANDARD REFERENCE DATA for normal gastric retention): - At 1 hour, 34% remains. (Normal 30 - 90%). Procedure Note Orlando Brody, DO - 01/02/2024 EXAM NM GASTRIC EMPTYING STUDY SOLID - 01/02/2024 10:34 am HISTORY early satiety, weight loss, abdominal pain COMPARISON None. TECHNIQUE The patient orally ingested a meal consisting of 1 oz scrambled eggslabeled with 500 microcuries of Tc-99m sulfur colloid, 1 bite of toastwithout jelly, and 1 oz water. Anterior and posterior abdominalscintigraphic imaging was performed, and geometric mean was calculated atapproximately 1 hour following ingestion. Imaging at 2 and 4 hoursfollowing ingestion were not obtained as patient had episode emesis priorto 1 hour imaging. FINDINGS Visually, there is passage of the radiotracer from the stomach into thesmall bowel. Retention of activity within the stomach at the following time intervalswas obtained (compared to STANDARD REFERENCE DATA for normal gastricretention): - At 1 hour, 34% remains. (Normal 30 - 90%). IMPRESSION IMPRESSION Incomplete exam. Patient did not ingest the entire standard meal andvomited a portion of the meal prior to 1 hour imaging. Therefore, theexam was discontinued since additional retention counts would beinaccurate. I have personally reviewed this examination and agree with the resident/fellow physician's interpretation. Thelma Jamil PA-C [facility] documented in this encounter Additional Health Concerns [...] Power of Attor jus? No Care Teams Air Traffic Control Supervisor Relationship Specialty Start Date End Date Kaiser Amanda MD [address] [place] [address] PCP - General Family Medicine 04/11/21 documented as of this encounter
--- OUTSIDE RECORDS SUMMARY | 2024-01-29 20:35 | External Medical Summary | Summary of Care ---
Author Name Unknown Organization [facility] Address [address] [address] Phone [phone] Care Team Providers Care Wire Brush Maker Name Role Phone Kaiser Amanda MD Primary Care Provider [phone] [phone] Reason for Visit * Reason Onset Date Comments Home Health 10/04/2023 Encounter Details Date Type Department Care Team (Late st Contact Info) Description 10/04[facility]2023 [facility] [place] [address] Kaiser Amanda MD 21 [facility] [place] [address] Home Health Allergies Active Allergy Reactions Criticality Noted Date Comments Cat Dander Itching 07/14/2016 documented as of this encounter (statuses as of 01/03/2024) Medications Medication Sig Dispensed Refills Start Date End Date Status SarbariTouch Ultra 2 w/Device KitIndications:Type 2 diabetes mellitus with hemoglobin A1c goal of less than 7.5% ([facility]) Testing blood sugars twice daily Dx: E11.9 1 Kit 11 06/06/2021 Active OneTouch Delica Lancets 30GIndications:Type 2 diabetes mellitus with hemoglobin A1c goal of less than 7.5% ([facility]),Type 2 diabetes mellitus with polyneuropathy ([facility]) Check BS once daily E11.9 [...] Blood)Indications: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 (HCC),Type 2 [...] MG Sublingual Tablet Sublingual (Nitrostat)Indicatio ns:Stable angina (HCC) Place 1 Tablet under the [...] mRNA, LNP-s, No Pre serve, 2-Dose Series ([employer]) 04/23/2021,08/09/2020,07/12/2020 Covid-19, Mrna, Lnp-s, Pf, B ivalent, [...] encounter Miscellaneous Notes * Telephone Encounter - Leida Suarez CMA - 10/04/2023 4:16 PM EDT Sent Teams msg to [facility] to take a look. * Telephone Encounter - Marta Zamorano LPN - 10/04/2023 3:41 PM EDT Images from the original note were not included. Concerns Jesica RN, Calling from: [facility] [employer] Report/Concerns of: groin pain. Concerned patient has a UTI Symptoms: Burning, frequency and concentrated urine Vitals: T 97.3 P 70 RR 18 BP 120/70 SP O2 97% RA Lung sounds CTA Weight NA Blood sugar NA Narrative: Jesica Cramer RN calling from [facility] [employer] . They did an extra visit on the patient today because he was having groin pain. Urinalysis is back. Trying to keep him out of the ER. She is awarethat the culture is not back. Giving us a heads up. Called Leiad in the office. Will have a covering doctor look at the results. Call back Jesica with any advice or orders at [phone] Please fax new orders to [phone] Contains abnormal data URINALYSIS, REFLEX TO MICROSCOPIC Order: [id number] Status: Final result Visible to patient: Yes (not seen) Next appt: 10/05/2023 at 11:30 AM in *Cardio* (PHILIP Rodriguez) Dx: Urinary tract infection, site not spe... 0 Result Notes Component Ref Range & Units 13:15 Color, Urine Light Yellow, Yellow, Dark Yellow Yellow Clarity, Urine Clear Clear Glucose, Urine Negative mg/dL Negative Bilirubin, Urine Negative Negative Ketone, Urine Negative mg/dL Negative Specific [place], Urine 1.003 - 1.030 1.016 Blood, Urine Negative Large Abnormal pH, Urine 5.0 - 7.5 Units 7.5 Protein, Urine Negative mg/dL 30 Abnormal Urobilinogen, Urine 0.2, 1.0 mg/dL 1.0 Nitrite, Urine Negative Negative Esterase, Urine Negative Large Abnormal Resulting Agency [facility] Specimen Collected: 10/04/23 13:15 Last Resulted: 10/04/23 15:05 Result History View All Conversations on this Encounter Result Care Coordination Patient Communication Released Not seen Back to Top Contains abnormal data MICROSCOPIC EXAM, URINE Order: [id number] - Reflex for Order [id number] Status: Final result Visible to patient: Yes (not seen) Next appt: 10/05/2023 at 11:30 AM in *Cardio* (PHILIP Rodriguez) Dx: Urinary tract infection, site not spe... 0 Result Notes Component Ref Range & Units 13:15 RBC, Urine 0 - 2 /HPF 20-29 Abnormal WBC, Urine 0 - 2 /HPF 50+ Abnormal Bacteria, Urine 0 - 25 /HPF >200 Abnormal WBC Clumps, Urine None /HPF Present Abnormal * Telephone Encounter - Shirley Driver LPN - 10/04/2023 12:25 PM EDT HH Concerns Meaghan,RN, Calling from: [facility] Report/Concerns of: UTI Symptoms: uti- burning, frequency, and concentrated Vitals: T 97.3 P 70 RR 18 BP 120/70 SP O2 97% RA Lung sounds CTA Weight NA Blood sugar NA Narrative: Reports that the pt has mobile abd pain that was in lower abd today and can become a 7-8-10/ gas pain and stomach gurgling. Would like pt to take simethicone for sx, if agreeable. Urine was checked with UTI kit (Reagent strips) supplied by , results as follows: + (30) protein + nitrates ++ blood +++ leucocytes No glucose. Is asking if PCP would like urine sent for a culture? Call back Meaghan with any advice or orders at [phone]. Please advise. documented in this encounter Plan of Treatment Upcoming Encounters Date Type Department Care Team (Late st Contact Info) Description 01/04/2024 10:40 AM EDT Office Visit [address] [phone] Kaiser Amanda MD [address] [place] [address] 01/09/2024 1:00 PM EDT Anticoagulation Pharmacy, [address] [address] Pharmacist1, [facility] [place] [address] [place] [address] 01/21/2024 2:00 PM EDT Office Visit Endocrinology [address] [place] [phone] Sakina Jones MD 100 [address] [facility] [place] [id number] 01/25/2024 3:30 PM EDT Office [facility] Surgery [facility] [address] [place] [address] Laney Hogue MD [address] [facility] [place] [address] 02/21/2024 10:30 AM EDT Office Visit Urology Aleida RinaldiRolo [address] [place] [address] Nikolai Chaudhari MD [address] [place] [address] 02/25/2024 11:20 AM EDT Office Visit [facility] 21 [facility] [place] [phone] Kaiser Amanda MD 21 [place] [address] 03/05/2024 1:00 PM EDT Appointment Card[facility], [facility] [place] [address] 03/26/2024 8:00 AM EST Hospital Encounter OR [facility], Operating Room, [facility] - 4th Floor [address] [place] [phone] John Gordillo MD [address] [place] [address] 03/26/2024 8:00 AM EST - 03/26/2024 8:46 AM EST Surgery OR [facility], Operating Room, [facility] - 4th Floor [address] [place] [phone] John Gordillo MD [address] [place] [address] COLONOSCOPY FLEXIBLE PROXIMAL DIAGNOSTIC 04/01/2024 12:30 PM EST [facility] [address] [place] [phone] Thelma Jamil PA-C 310 [facility] [place] [address] 06/12/2024 2:00 PM EST Office Visit Cardiology, [place] [facility] [place] [address] Clarissa Rapp PA-C 400 [facility] [place] [address] 10/21/2024 9:15 AM EDT Appointment Radiology, [facility] 400 [facility] [place] [address] 10/29/2024 9:45 AM EDT Office Visit Urology Aleida Rinaldi [place] [address] [place] [address] Bert Boogie Jr., MD [address] [place] [address] Scheduled Procedures Name Priority Associated Diagnoses Date/Ti [...] 07/07/2021, Additional history exists GFR 12/28/2024 12/29/2023, 072 12/2023, 11/08/2023, Additional history exists DXA Scan [...] D LEVEL ONCE IN A LIFETIME-USE SMARTSET# [id number] Completed 07/26/2023, 02/26/2023, 01/23/2023, Additional history exists [...] this encounter Medical Devices Implanted Type Area Dietary Server Device Identifier Shelf Expiration Date Model / Serial / Lot Cement Bone Simplex Hv & G - [id number] Implanted:Qty: 2 on 09/02/2020 by Gianni Hubbard MD at OR [facility] Right: Hip LUDY : ORTHOPAEDICS 08/11/2021 6195-1-010 / / [id number] Spacer Ring Aclde Distal Lg 14 - [id number] Implanted:Qty: 1 on 09/02/2020 by Gianni Hubbard MD at OR [facility] Right: Hip LUDY : ORTHOPAEDICS 11/25/2024 [id number] / / Accolade C Cs 127 6 37/158 - [id number] Implanted:Qty: 1 on 09/02/2020 by Gianni Hubbard MD at OR [facility] Right: Hip LUDY : ORTHOPAEDICS 05/29/2023 [id number] / / [id number] Hip Cocr Lfit Head V40 28/+4 - [id number] Implanted:Qty: 1 on 09/02/2020 by Gianni Hubbard MD at OR [facility] Right: Hip LUDY : ORTHOPAEDICS 11/15/2024 6260-9-228 / / [id number] Hip Head Bipol Uhr Uni 28x52 - [id number] Implanted:Qty: 1 on 09/02/2020 by Gianni Hubbard MD at OR [facility] Right: Hip LUDY : ORTHOPAEDICS 11/25/2024 UH1-52-28 / / [id number] Lens Intraoc 17.5 - [id number] - [id number] Implanted:Qty: 1 on 03/23/2022 by Rad Morgan MD at OR [facility] Left: Eye BAUSCH & LOMB 10/11/2026 [id number] / [id number] / [id number] Lens Intraoc 18.0 - [id number] - [id number] Implanted:Qty: 1 on 03/30/2022 by Rad Morgan MD at [facility] Right: Eye BAUSCH & LOMB 01/11/2027 [id number] / [id number] / [id number] documented as of this encounter Additional Health [...] of Attor jus? No Care Teams Wire Brush Maker Relationship Specialty Start Date End Date Kaiser Amanda MD [address] [phone] PCP - General Family Medicine 04/11/21 documented as of this encounter
--- OUTSIDE RECORDS SUMMARY | 2024-01-29 20:35 | External Medical Summary | Summary of Care ---
Author Name Unknown Organization [facility] Address [address] [facility] [address] Phone [phone] Care Team Providers Care Mast Maker Name Role Phone Kaiser Amanda MD Primary Care Provider [phone] Reason for Visit * Precert (Within 10 days (routine)) - Authorized Specialty Diagnoses / Procedures Referred By Contac t Referred To Contact Radiology Diagnoses Abdominal pain, generalized Change in bowel habits Early satiety Weight loss Iron deficiency anemia, unspecified iron deficiency anemia type Procedures NM GASTRIC EMPTYING STUDY SOLID Thelma Jamil PA-C [address] [place], [place] [address] [address] Referral ID Status Reason Start Date Expiration Date V isits Requested Visits Authorized [id number] Authorized 12/19/2023 999 999 Encounter Details Date Type Department Care Team (Latest Contact Info) Description 01/02/2024 6:31 AM EDT Hospital Encounter Radiology, [facility] 400 [facility] [place] [address] Arrived Discharge Disposition: Home - Self Care Allergies Active Allergy Reactions Criticality Noted Date Comments Cat Dander Itching 07/14/2016 documented as of this encounter (statuses as of 01/03/2024) Medications Medication Sig Dispensed Refills Start Date End Date Status OneTouch Ultra 2 w/Device KitIndications:Type 2 diabetes mellitus with hemoglobin A1c goal of less than 7.5% ([facility]) Testing blood sugars twice daily Dx: [...] goal of less than 7.5% ([facility]) TAKE 1 TABLET BY MOUTH DAILY. TAKE 30 MINUTES BEFORE A MEAL 90 Tablet 3 12/26/2022 Active Hydrocortisone 2.5 % External Cream Apply to eyebrows twice daily for 3-5 days at a time as needed for flares 60 g 2 01/19/2023 Active ZytoprotecDarius Moeller In Vitro Strip (Glucose Blood)Indications:T ype [...] mRNA, LNP-s, No Pre serve, 2-Dose Series ([email or web address]) 04/23/2021,08/09/2020,07/12/2020 Covid-19, Mrna, Lnp-s, Pf, B ivalent, [...] do you have serious difficulty h earing? No-[place] 11/07/2023 Are you blind or do you [...] 10:40 AM EDT Office Visit Family Practice, [place] [address] [phone] Kaiser Amanda MD [address] [place] [place] [address] 01/09/2024 1:00 PM EDT [place] [address] Pharmacist1, [facility] [place] [address] 01/21/2024 2:00 PM EDT Office Visit Endocrinology [address], [place] [address] [place] [phone] Sakina Jones MD 100 [address] [facility] [place] [address] 01/25/2024 3:30 PM EDT [facility] [address] [place] [address] Laney Hogue MD [address] [place] [address] 02/21/2024 10:30 AM EDT Office Visit Urology Aleida Rinalid [place] [address] [address] [place] [address] Nikolai Chaudhari MD 27 [facility] [place] [address] 02/25/2024 11:20 AM EDT Office Visit [facility] 21 [facility] [place] [phone] Kaiser Amanda MD 21 [facility] [place] [place] [address] 03/05/2024 1:00 PM EDT Appointment Cardiac Studies, [address] [place] [address] 03/26/2024 8:00 AM EST Hospital Encounter OR [facility], Operating Room, [facility] - 4th Floor 400 [facility] [place] [phone] John Gordillo MD [address] [place] [address] 03/26/2024 8:00 AM EST - 03/26/2024 8:46 AM EST Surgery OR [facility], Operating Room, [facility] - 4th Floor 400 [facility] [place] [address] John Gordillo MD [address] [place] [address] COLONOSCOPY FLEXIBLE PROXIMAL DIAGNOSTIC 04/01/2024 12:30 PM EST Office Visit Gastroenterology, [facility] 310 [facility] [place] [phone] Thelma Jamil PA-C 310 [place] [address] 06/12/2024 2:00 PM EST Office Visit Cardiology, [place] 400 [facility] [address] Clarissa Rapp PA-C 400 [place] [address] 10/21/2024 9:15 AM EDT Appointment Radiology, [facility] 400 [facility] [place] [address] 10/29/2024 9:45 AM EDT Office Visit Urology [place] [address] [facility] [address] [place] [address] Bert Boogie Jr., MD [address] [place] [address] Scheduled Procedures Name Priority Associated Diagnoses Date/Ti [...] D LEVEL ONCE IN A LIFETIME-USE SMARTSET# [id number] Completed 07/26/2023, 02/26/2023, 01/23/2023, Additional history exists [...] this encounter Medical Devices Implanted Type Area Dishwashing Machine Operator Device Identifier Shelf Expiration Date Model / Serial / Lot Cement Bone Simplex Hv & G - [id number] Implanted:Qty: 2 on 09/02/2020 by Gianni Hubbard MD at OR [facility] Right: Hip LUDY : ORTHOPAEDICS 08/11/2021 6195-1-010 / / [id number] Spacer Ring Aclde Distal Lg 14 - [id number] Implanted:Qty: 1 on 09/02/2020 by Gianni Hubbard MD at OR [facility] Right: Hip LUDY : ORTHOPAEDICS 11/25/2024 4313-8815 / / Accolade C Cs 127 6 37/158 - [id number] Implanted:Qty: 1 on 09/02/2020 by Gianni Hubbard MD at OR [facility] Right: Hip LUDY : ORTHOPAEDICS 05/29/2023 6057-0637D / / [id number] Hip Cocr Lfit Head V40 28/+4 - [id number] Implanted:Qty: 1 on 09/02/2020 by Gianni Hubbard MD at OR [facility] Right: Hip LUDY : ORTHOPAEDICS 11/15/2024 6260-9-228 / / [id number] Hip Head Bipol Uhr Uni 28x52 - [id number] Implanted:Qty: 1 on 09/02/2020 by Gianni Hubbard MD at OR [facility] Right: Hip LUDY : ORTHOPAEDICS 11/25/2024 UH1-52-28 / / [id number] Lens Intraoc 17.5 - [id number] - [id number] Implanted:Qty: 1 on 03/23/2022 by Rad Morgan MD at OR [facility] Left: Eye BAUSCH & LOMB 10/11/2026 [id number] / [id number] / [id number] Lens Intraoc 18.0 - [id number] - [id number] Implanted:Qty: 1 on 03/30/2022 by Rad Morgan MD at OR [facility] Right: Eye BAUSCH & LOMB 01/11/2027 [id number] / [id number] / [id number] documented as of this encounter Procedures Procedure [...] the resident/fellow physician's interpretation. Thelma Jamil PA-C [facility] documented in this encounter Additional [...] Power of Attor jus? No Care Teams Mast Maker Relationship Specialty Start Date End Date Kaiser Amanda MD [address] [address] PCP - General Family Medicine 04/11/21 documented as of this encounter
--- OUTSIDE RECORDS SUMMARY | 2024-01-29 20:35 | External Medical Summary | Summary of Care ---
Author Name Unknown Organization [facility] Address [address] [facility] [address] Phone [phone] Care Team Providers Care Supervisor Quality Control Name Role Phone Kaiser Amanda MD Primary Care Provider +1 [phone] Encounter Details Date Type Department Care Team (Late st Contact Info) Description 12/31/2023 Population Health External Data Unspecified Department Allergies Active Allergy Reactions Criticality Noted Date Comments Cat Dander Itching 07/14/2016 documented as of this encounter (statuses as of 12/31/2023) Medications Medication Sig Dispensed Refills Start Date End Date Status OneTouch Ultra 2 w/Device KitIndications:Type 2 diabetes mellitus with hemoglobin A1c goal of less than 7.5% ([facility]) Testing blood sugars twice daily Dx: E11.9 [...] hemoglobin A1c goal of less than 7.5% ([facility]) TAKE 1 TABLET BY MOUTH DAILY. TAKE [...] hemoglobin A1c goal of less than 7.5% ([facility]) USE STRIP TO CHECK GLUCOSE ONCE DAILY [...] MG Sublingual Tablet Sublingual (Nitrostat)Indicati ons:Stable angina ([facility]) Place 1 Tablet under the tongue every [...] 2023. 20 Tablet 12/30/2023 01/09/20 24 Active documented as of this encounter (statuses as of 12/31/2023) Active Problems Problem Noted Date Diagnosed Date [...] as of this encounter (statuses as of 12/31/2023) Resolved Problems Problem Noted Date Diagnosed Date [...] as of this encounter (statuses as of 12/31/2023) Immunizations Name Administration Dates Next Due COVID-19 [...] do you have serious difficulty h earing? No-[place] 11/07/2023 Are you blind or do you [...] Care Team (Late st Contact Info) Description 01/02/2024 7:00 AM EDT Appointment Radiology, [address] [place] [address] 01/02/2024 8:30 AM EDT Appointment Radiology, [address] [place] [address] 01/02/2024 9:30 AM EDT Appointment Radiology[address] [place] [address] 01/02/2024 11:30 AM EDT Appointment Radiology[address] [place] [address] 01/09/2024 1:00 PM EDT Anticoagulation [address]acy, [address] [address] Pharmacist1, [facility] [address] [place] [address] 01/21/2024 2:00 PM EDT Office Visit Endocrinology Natalie [address] [place] [phone] Sakina Jones MD 100 [address] [facility] [place]AH [phone] 01/25/2024 3:30 PM EDT Office Visit [facility] [address] [place] [address] Laney Hogue MD [address] [place] [address] 02/21/2024 10:30 AM EDT Office Visit Urology Michael [place] [address] [place] [address] Nikolai Chaudhari MD [address] [place] [address] 02/25/2024 11:20 AM EDT Office Visit [facility] 21 [facility] [place] [phone] Kaiser Amanda MD 21 [facility] [place] [address] 03/05/2024 1:00 PM EDT Appointment Cardiac Studies, [facility] [address] [place] [address] 03/26/2024 8:00 AM EST Hospital Encounter OR [facility], Operating Room, [facility] - 4th Floor [address] [place] [address] John Gordillo MD [address] [place] [address] 03/26/2024 8:00 AM EST - 03/26/2024 8:46 AM EST Surgery OR [facility], Operating Room, [facility] - 4th Floor [address] [place] [address] John Gordillo MD [address] [place] [address] COLONOSCOPY FLEXIBLE PROXIMAL DIAGNOSTIC 04/01/2024 12:30 PM EST Office Visit Gastroenterology, [facility] 310 [place] [address] Thelma Jamil PA-C 310 [place] [address] 06/12/2024 2:00 PM EST Office Visit [facility]iology, [place] [facility] [address] Clarissa Rapp PA[facility]C [facility] [address] 10/21/2024 9:15 AM EDT Appointment Radiology, [facility] [address] 10/29/2024 9:45 AM EDT Office Visit Urology Aleida Rinaldi [place] [address] [facility] 270 [place] [address] Bert Boogie Jr., MD [address] [place] [address] Scheduled Procedures Name Priority Associated Diagnoses Date/Ti me COLONOSCOPY FLEXIBLE PROXIMA L DIAGNOSTIC Recall History of colonic polyps Abdominal pain, generalized Change in bowel habits Early satiety Weight loss Iron deficiency anemia, unspecified iron deficiency anemia type 03/26/2024 8:00 AM EST ESOPHAGOGASTRODUODENOSCOPY ( EGD), FLEXIBLE, TRANSORAL, DIAGNOSTIC Recall History of colonic polyps Abdominal pain, generalized [...] D LEVEL ONCE IN A LIFETIME-USE SMARTSET# [id number] Completed 07/26/2023, 02/26/2023, 01/23/2023, Additional history exists [...] this encounter Medical Devices Implanted Type Area District Associate Judge Device Identifier Shelf Expiration Date Model / Serial / Lot Cement Bone Simplex Hv & G - [id number] Implanted:Qty: 2 on 09/02/2020 by Gianni Hubbard MD at OR [facility] Right: Hip LUDY : ORTHOPAEDICS 08/11/2021 6195-1-010 / / [id number] Spacer Ring Aclde Distal Lg 14 - [id number] Implanted:Qty: 1 on 09/02/2020 by Gianni Hubbard MD at OR [facility] Right: Hip LUDY : ORTHOPAEDICS 11/25/2024 1139-3429 / / Accolade C Cs 127 6 37/158 - [id number] Implanted:Qty: 1 on 09/02/2020 by Gianni Hubbard MD at OR [facility] Right: Hip LUDY : ORTHOPAEDICS 05/29/2023 6057-0637D / / [id number] Hip Cocr Lfit Head V40 28/+4 - [id number] Implanted:Qty: 1 on 09/02/2020 by Gianni Hubbard MD at OR [facility] Right: Hip LUDY : ORTHOPAEDICS 11/15/2024 6260-9-228 / / [id number] Hip Head Bipol Uhr Uni 28x52 - [id number] Implanted:Qty: 1 on 09/02/2020 by Gianni Hubbard MD at OR [facility] Right: Hip LUDY : ORTHOPAEDICS 11/25/2024 UH1-52-28 / / [id number] Lens Intraoc 17.5 - [id number] - [id number] Implanted:Qty: 1 on 03/23/2022 by Rad Morgan MD at OR [facility] Left: Eye BAUSCH & LOMB 10/11/2026 [id number] / [id number] / [id number] Lens Intraoc 18.0 - [id number] - [id number] Implanted:Qty: 1 on 03/30/2022 by Rad Morgan MD at OR [facility] Right: Eye BAUSCH & LOMB 01/11/2027 [id number] / [id number] / [id number] documented as of this encounter Additional Health [...] Power of Attor jus? No Care Teams Supervisor Quality Control Relationship Specialty Start Date End Date Kaiser Amanda MD [address] [address] PCP - General Family Medicine 04/11/21 documented as of this encounter
--- OUTSIDE RECORDS SUMMARY | 2024-01-29 20:35 | External Medical Summary | Summary of Care ---
Author Name Unknown Organization [facility] Address [address] [facility] [address] Phone [phone] Care Team Providers Care Market Research Senior Project Manager Name Role Phone Kaiser Amanda MD Primary Care Provider +1 -[phone] Reason for Visit * Reason Onset Date Comments Health Maintenance 01/01/2024 Encounter Details Date Type Department Care Team (Late st Contact Info) Description [facility] [place] [address] Kaiser Amanda MD [address] [place] [address] Health Maintenance Allergies Active Allergy Reactions Criticality Noted Date Comments Cat Dander Itching 07/14/2016 documented as of this encounter (statuses as of 01/01/2024) Medications Medication Sig Dispensed Refills Start Date End Date Status Mystery ScienceTouch Ultra 2 w/Device KitIndications:Type 2 diabetes mellitus with hemoglobin A1c goal of less than 7.5% ([facility]) Testing blood sugars twice daily Dx: E11.9 1 Kit 11 06/06/2021 Active OneTouch Delica Lancets 30GIndications:Type 2 diabetes mellitus with hemoglobin A1c goal of less than 7.5% ([facility]),Type 2 diabetes mellitus with polyneuropathy ([facility]) Check BS once daily E11.9 100 Each [...] as of this encounter (statuses as of 01/01/2024) Active Problems Problem Noted Date Diagnosed Date [...] as of this encounter (statuses as of 01/01/2024) Resolved Problems Problem Noted Date Diagnosed Date [...] as of this encounter (statuses as of 01/01/2024) Immunizations Name Administration Dates Next Due COVID-19 [...] do you have serious difficulty h earing? No-[facility] 11/07/2023 Are you blind or do you [...] encounter Miscellaneous Notes * Telephone Encounter - Nancy Johnson LPN - 01/01/2024 8:10 AM EDT Care Gaps Comprehensive Care Outreach Last Office/Telemedicine Visit: 11/12/2023 (in office), 11/19/2019 (telemedicine) Next Office Visit: 02/25/2024 Hemoglobin AIC Results: Lab Results Component Value Date/Time HEMOGLOBIN A1C - [facility] 6.8 (H) 11/08/2023 04:18 AM HEMOGLOBIN A1C - [facility] 6.8 (H) 07/26/2023 11:04 AM HEMOGLOBIN A1C - [facility] 6.8 (H) 01/23/2023 02:40 PM HEMOGLOBIN A1C - [facility] 7.4 (H) 03/30/2020 10:15 AM HEMOGLOBIN A1C - [facility] 6.6 (H) 09/29/2019 09:29 AM HEMOGLOBIN A1C - [facility] 6.8 (H) 04/09/2019 11:01 AM BP Readings from Last 1 Encounters: 12/29/23 131/75 Reviewed Health Maintenance below: Health Maintenance Topic Date Due COVID-19 Vaccine ( season) 2023 Adult Wellness Visit 09/28/2023 Diabetic Eye Exam 12/22/2023 HOME BP CUFF VALIDATION YEARLY 12/27/2023 Influenza Vaccine (FLU shot) (1) 01/13/2024 HbA1c 05/09/2024 Diabetic Foot Exam 07/25/2024 B-12 07/25/2024 Care Gap Outreach Action Taken: Spoke to patient Declined all HM documented in this encounter Plan of Treatment Upcoming Encounters Date Type Department Care Team (Late st Contact Info) Description 01/02/2024 7:00 AM EDT Appointment Radiology, [address] [address] 01/02/2024 8:30 AM EDT Appointment Radiology, [address] [place] [address] 01/02/2024 9:30 AM EDT Appointment Radiology, [address] [place] [address] 01/02/2024 11:30 AM EDT Appointment Radiology[address] [place] [address] 01/09/2024 1:00 PM EDT Anticoagulation Pharmacy, [address] [place] [address] Pharmacist1, [facility] [address] [place] [address] 01/21/2024 2:00 PM EDT Office Visit Endocrinology Natalie [address] [place] [address] Sakina Jones MD 100 [address] [facility] [place] [address] 01/25/2024 3:30 PM EDT Office Visit [facility] Surgery [facility] [address] [place] [address] Laney Hogue MD [address] [facility] [address] 02/21/2024 10:30 AM EDT Office Visit Urology Aleida RinaldiMichaelwn [address] [place] [address] Nikolai Chaudhari MD [address] [place] [address] 02/25/2024 11:20 AM EDT Office Visit [facility] C[address] RodriguezwDUSTIN lamb [phone] Kaiser Amanda MD 21 [facility] [place] [address] 03/05/2024 1:00 PM EDT Appointment Cardiac Studies, [address] [address] 03/26/2024 8:00 AM EST Hospital Encounter OR [facility], Operating Room, [facility] - 4th Floor [address] [place] [phone] John Gordillo MD [address] [place] [address] 03/26/2024 8:00 AM EST - 03/26/2024 8:46 AM EST Surgery OR [facility], Operating Room, [facility] - 4th Floor [address] [place] [address] John Gordillo MD [address] [place] [address] COLONOSCOPY FLEXIBLE PROXIMAL DIAGNOSTIC 04/01/2024 12:30 PM EST Office Visit Gastroenterology, [facility] [place] [address] [place] [phone] Thelma Jamil PA-C [address] [facility] [place] [address] 06/12/2024 2:00 PM EST Office Visit Cardiology, [place] [address] [place] [address] Clarissa Rapp PA-C 400 [facility] [place] [address] 10/21/2024 9:15 AM EDT Appointment Radiology, [facility] [address] [facility] [place] [address] 10/29/2024 9:45 AM EDT Office Visit Urology [place] [address] [place] [address] Keagan Thayer, Bert Giron MD [address] [place] [address] Scheduled Procedures Name Priority Associated Diagnoses Date/Ti [...] D LEVEL ONCE IN A LIFETIME-USE SMARTSET# 95451 Completed 07/26/2023, 02/26/2023, 01/23/2023, Additional history exists [...] this encounter Medical Devices Implanted Type Area Engine Hostler Device Identifier Shelf Expiration Date Model / Serial / Lot Cement Bone Simplex Hv & G - [id number] Implanted:Qty: 2 on 09/02/2020 by Gianni Hubbard MD at OR [facility] Right: Hip LUDY : ORTHOPAEDICS 08/11/2021 6195-1-010 / / [id number] Spacer Ring Aclde Distal Lg 14 - [id number] Implanted:Qty: 1 on 09/02/2020 by Gianni Hubbard MD at OR [facility] Right: Hip LUDY : ORTHOPAEDICS 11/25/2024 7125-3349 / / Accolade C Cs 127 6 37/158 - [id number] Implanted:Qty: 1 on 09/02/2020 by Gianni Hubbard MD at OR [facility] Right: Hip LUDY : ORTHOPAEDICS 05/29/2023 6057-0637D / / [id number] Hip Cocr Lfit Head V40 28/+4 - [id number] Implanted:Qty: 1 on 09/02/2020 by Gianni Hubbard MD at OR [facility] Right: Hip LUDY : ORTHOPAEDICS 11/15/2024 6260-9-228 / / [id number] Hip Head Bipol Uhr Uni 28x52 - [id number] Implanted:Qty: 1 on 09/02/2020 by Gianni Hubbard MD at OR [facility] Right: Hip LUDY : ORTHOPAEDICS 11/25/2024 UH1-52-28 / / [id number] Lens Intraoc 17.5 - [id number] - [id number] Implanted:Qty: 1 on 03/23/2022 by Rad Morgan MD at OR [facility] Left: Eye BAUSCH & LOMB 10/11/2026 [id number] / [id number] / [id number] Lens Intraoc 18.0 - [id number] - [id number] Implanted:Qty: 1 on 03/30/2022 by Rad Morgan MD at [facility] Right: Eye BAUSCH & LOMB 01/11/2027 [id number] / [id number] / [id number] documented as of this encounter Additional Health [...] Power of Attor jus? No Care Teams Market Research Senior Project Manager Relationship Specialty Start Date End Date Kaiser Amanda MD 21 [place] [place] [address] PCP - General Family Medicine 04/11/21 documented as of this encounter
--- OUTSIDE RECORDS SUMMARY | 2024-01-29 20:35 | External Medical Summary | Summary of Care ---
Author Name Unknown Organization [facility] Address [address] [facility] [address] Phone [phone] Care Team Providers Care Lead Ramp Service Man Name Role Phone Kaiser Amanda MD Primary Care Provider +1 [phone] Reason for Visit * Reason Onset Date Comments Advice 01/02/2024 Encounter Details Date Type Department Care Team (Late st Contact Info) Description 01/02/2024 [facility] [place] [phone] Kaiser Amanda MD 21 [place] [address] Advice Allergies Active Allergy Reactions Criticality Noted Date Comments Cat Dander Itching 07/14/2016 documented as of this encounter (statuses as of 01/03/2024) Medications Medication Sig Dispensed Refills Start Date End Date Status TestCred Ultra 2 w/Device KitIndications:Type 2 diabetes mellitus with hemoglobin A1c goal of less than 7.5% ([facility]) Testing blood sugars twice daily Dx: E11.9 1 Kit 11 06/06/2021 Active OneTouch Delica Lancets 30GIndications:Type 2 diabetes mellitus with hemoglobin A1c goal of less than 7.5% ([facility]),Type 2 diabetes mellitus with polyneuropathy ([facility]) Check BS once daily E11.9 [...] mRNA, LNP-s, No Pre serve, 2-Dose Series ([employer]) 04/23/2021,08/09/2020,07/12/2020 Covid-19, Mrna, Lnp-s, Pf, B ivalent, [...] do you have serious difficulty h earing? No-[facility] 11/07/2023 Are you blind or do you [...] encounter Miscellaneous Notes * Telephone Encounter - Emily Mckay OSA - 01/03/2024 1:49 PM EDT Emeterio'd 03/26 Per Kamar. Pt needs done in [place] * Telephone Encounter - Terrence Jimenez OSA - 01/02/2024 4:20 PM EDT Pt added to the move up list for a sooner appt - pt is currently emeterio'd at [facility] OR. Will have anesthesia review to see if case can be done at [facility]. * Telephone Encounter - Katharine Fair OSA - 01/02/2024 12:54 PM EDT Please advise and assist patient .. Thank you * Telephone Encounter - Malorie Donaldson OSA - 01/02/2024 12:10 PM EDT Patients says the gastrologist says that he needs a colonoscopy as soon as possible and she wants to know if Dr Amanda can help get that moved up. documented in this encounter Plan of Treatment Upcoming Encounters Date Type Department Care Team (Late st Contact Info) Description 01/04/2024 10:40 AM EDT Office Visit [facility], [place] [address] [phone] Kaiser Amanda MD 21 [facility] [place] [address] 01/09/2024 1:00 PM EDT Anticoagulation Pharmacy, [place] [address] [id number] Pharmacist1, [facility] [place] [address] [place] [address] 01/21/2024 2:00 PM EDT Office Visit Endocrinology Natalie [address] [place] [address] Sakina Jones MD 100 [place] [place] [address] 01/25/2024 3:30 PM EDT Office Visit [facility] [address] [place] [address] Laney Hogue MD 200 [place] [address] 02/21/2024 10:30 AM EDT Office Visit Urology Rolo Colon [address] [place] [address] Nikolai Chaudhari MD [address] [place] [address] 02/25/2024 11:20 AM EDT Office Visit [facility] 21 [place] [phone] Kaiser Amanda MD 21 [facility] [place] [address] 03/05/2024 1:00 PM EDT Appointment Cardiac Studies, [facility] 400 [facility] [place] [address] 03/26/2024 8:00 AM EST Hospital Encounter OR [facility], Operating Room, [facility] - 4th Floor 400 [facility] [place] [phone] John Gordillo MD [address] [place] [address] 03/26/2024 8:00 AM EST - 03/26/2024 8:46 AM EST Surgery OR [facility], Operating Room, [facility] - 4th Floor 400 [facility] [place] [address] John Gordillo MD [address] [place] [address] COLONOSCOPY FLEXIBLE PROXIMAL DIAGNOSTIC 04/01/2024 12:30 PM EST Office Visit Gastroenterology, [facility] 310 [facility] [phone] Thelma Jamil PA-C 310 [facility] [address] 06/12/2024 2:00 PM EST Office Visit Cardiology, [place] 400 [facility] [place] [address] Clarissa Rapp PA-C 400 [facility] [address] 10/21/2024 9:15 AM EDT Appointment Radiology, [facility] [address] [place] [address] 10/29/2024 9:45 AM EDT Office Visit Urology Rolo Colon [address] [place] [address] Keagan Thayer, Bert Giron MD [address] [place] [address] Scheduled Procedures Name Priority Associated Diagnoses Date/Ti [...] D LEVEL ONCE IN A LIFETIME-USE SMARTSET# [id number] Completed 07/26/2023, 02/26/2023, 01/23/2023, Additional history exists [...] this encounter Medical Devices Implanted Type Area Mushroom Grower Device Identifier Shelf Expiration Date Model / Serial / Lot Cement Bone Simplex Hv & G - [id number] Implanted:Qty: 2 on 09/02/2020 by Gianni Hubbard MD at OR [facility] Right: Hip LUDY : ORTHOPAEDICS 08/11/2021 6195-1-010 / / [id number] Spacer Ring Aclde Distal Lg 14 - [id number] Implanted:Qty: 1 on 09/02/2020 by Gianni Hubbard MD at OR [facility] Right: Hip LUDY : ORTHOPAEDICS 11/25/2024 6639-5510 / / Accolade C Cs 127 6 37/158 - [id number] Implanted:Qty: 1 on 09/02/2020 by Gianni Hubbard MD at OR [facility] Right: Hip LUDY : ORTHOPAEDICS 05/29/2023 6057-0637D / / [id number] Hip Cocr Lfit Head V40 28/+4 - [id number] Implanted:Qty: 1 on 09/02/2020 by Gianni Hubbard MD at OR [facility] Right: Hip LUDY : ORTHOPAEDICS 11/15/2024 6260-9-228 / / [id number] Hip Head Bipol Uhr Uni 28x52 - [id number] Implanted:Qty: 1 on 09/02/2020 by Gianni Hubbard MD at OR [facility] Right: Hip LUDY : ORTHOPAEDICS 11/25/2024 UH1-52-28 / / [id number] Lens Intraoc 17.5 - [id number] - [id number] Implanted:Qty: 1 on 03/23/2022 by Rad Morgan MD at OR [facility] Left: Eye BAUSCH & LOMB 10/11/2026 [id number] / [id number] / [id number] Lens Intraoc 18.0 - [id number] - [id number] Implanted:Qty: 1 on 03/30/2022 by Rad Morgan MD at OR [facility] Right: Eye BAUSCH & LOMB 01/11/2027 [id number] / [id number] / [id number] documented as of this encounter Additional Health [...] Power of Attor jus? No Care Teams Lead Ramp Service Man Relationship Specialty Start Date End Date Kaiser Amanda MD 21 [place] [place] [address] PCP - General Family Medicine 04/11/21 documented as of this encounter
--- OUTSIDE RECORDS SUMMARY | 2024-01-29 20:35 | External Medical Summary | Summary of Care ---
Author Name Unknown Organization [facility] Address [address] [facility] [address] Phone [phone] Care Team Providers Care Supreme Court Justice Name Role Phone Kaiser Amanda MD Primary Care Provider +1 -[phone] Reason for Visit * Reason Onset Date Comments Advice 01/02/2024 Encounter Details Date Type Department Care Team (Late st Contact Info) Description 01/02/2024 [facility] [place] [phone] Kaiser Amanda MD 21 [place] [address] Advice Allergies Active Allergy Reactions Criticality Noted Date Comments Cat Dander Itching 07/14/2016 documented as of this encounter (statuses as of 01/03/2024) Medications Medication Sig Dispensed Refills Start Date End Date Status [employer] Ultra 2 w/Device KitIndications:Type 2 diabetes mellitus with hemoglobin A1c goal of less than 7.5% ([facility]) Testing blood sugars twice daily Dx: E11.9 1 Kit 11 06/06/2021 Active OneTouch Delica Lancets 30GIndications:Type 2 diabetes mellitus with hemoglobin A1c goal of less than 7.5% ([facility]),Type 2 diabetes mellitus with polyneuropathy ([facility]) Check BS once daily E11.9 100 [...] mRNA, LNP-s, No Pre serve, 2-Dose Series ([employer]) 04/23/2021,08/09/2020,07/12/2020 Covid-19, Mrna, Lnp-s, Pf, B ivalent, [...] do you have serious difficulty h earing? No-[facility] 11/07/2023 Are you blind or do [...] appt - pt is currently emeterio'd at [facility] OR. Will have anesthesia review to see if case can be done at [facility]. * Telephone Encounter - Katharine Fair OSA [...] Description 01/04/2024 10:40 AM EDT Office Visit [facility], [place] [address] [phone] Kaiser Amanda MD 21 [facility] [address] [place] [address] 01/09/2024 1:00 PM EDT Anticoagulation Pharmacy, [place] [address] [phone] Pharmacist1, [facility] [place] [address] [place] [address] 01/21/2024 2:00 PM EDT Office Visit Endocrinology Natalie [address] [place] [address] Sakina Jones MD [address] [place] [facility] [place] [address] 01/25/2024 3:30 PM EDT Office Visit [facility] [place] [place] Surgery [facility] [address] [facility] [place] [address] Laney Hogue MD 200 [place] [address] 02/21/2024 10:30 AM EDT Office Visit Urology Rolo Colon [address] [place] [address] Nikolai Chaudhari MD [address] [place] [address] 02/25/2024 11:20 AM EDT Office Visit [facility] 21 [place] [phone] Kaiser Amanda MD 21 [facility] [place] [address] 03/05/2024 1:00 PM EDT Appointment Cardiac Studies, [facility] 400 [facility] [place] [address] 03/26/2024 8:00 AM EST Hospital Encounter OR [facility], Operating Room, [facility] - 4th Floor 400 [facility] [place] [address] John Gordillo MD [address] [place] [address] 03/26/2024 8:00 AM EST - 03/26/2024 8:46 AM EST Surgery OR [facility], Operating Room, [facility] - 4th Floor 400 [facility] [place] [address] John Gordillo MD [address] [place] [address] COLONOSCOPY FLEXIBLE PROXIMAL DIAGNOSTIC 04/01/2024 12:30 PM EST Office Visit Gastroenterology, [facility] 310 [facility] [place] [phone] Thelma Jamil PA-C 310 [facility]3][place] [address] 06/12/2024 2:00 PM EST Office Visit Cardiology, [place] 400 [facility] [place] [address] Clarissa Rapp PA-C 400 [facility] [address] 10/21/2024 9:15 AM EDT Appointment Radiology, [facility] [address] [place] [address] 10/29/2024 9:45 AM EDT Office Visit Urology Rolo Colon [address] [place] [address] Keagan Thayer, Bert Giron MD [address] [place] [address] Scheduled Procedures Name Priority Associated Diagnoses Date/Ti [...] D LEVEL ONCE IN A LIFETIME-USE SMARTSET# [id number] Completed 07/26/2023, 02/26/2023, 01/23/2023, Additional history exists [...] this encounter Medical Devices Implanted Type Area Faceter Device Identifier Shelf Expiration Date Model / Serial / Lot Cement Bone Simplex Hv & G - [id number] Implanted:Qty: 2 on 09/02/2020 by Gianni Hubbard MD at OR [facility] Right: Hip LUDY : ORTHOPAEDICS 08/11/2021 6195-1-010 / / [id number] Spacer Ring Aclde Distal Lg 14 - [id number] Implanted:Qty: 1 on 09/02/2020 by Gianni Hubbard MD at OR [facility] Right: Hip LUDY : ORTHOPAEDICS 11/25/2024 9874-2124 / / Accolade C Cs 127 6 37/158 - [id number] Implanted:Qty: 1 on 09/02/2020 by Gianni Hubbard MD at OR [facility] Right: Hip LUDY : ORTHOPAEDICS 05/29/2023 6057-0637D / / [id number] Hip Cocr Lfit Head V40 28/+4 - [id number] Implanted:Qty: 1 on 09/02/2020 by Gianni Hubbard MD at OR [facility] Right: Hip LUDY : ORTHOPAEDICS 11/15/2024 6260-9-228 / / [id number] Hip Head Bipol Uhr Uni 28x52 - [id number] Implanted:Qty: 1 on 09/02/2020 by Gianni Hubbard MD at OR [facility] Right: Hip LUDY : ORTHOPAEDICS 11/25/2024 UH1-52-28 / / [id number] Lens Intraoc 17.5 - [id number] - [id number] Implanted:Qty: 1 on 03/23/2022 by Rad Morgan MD at OR [facility] Left: Eye BAUSCH & LOMB 10/11/2026 [id number] / [id number] / [id number] Lens Intraoc 18.0 - [id number] - [id number] Implanted:Qty: 1 on 03/30/2022 by Rad Morgan MD at OR [facility] Right: Eye BAUSCH & LOMB 01/11/2027 [id number] / [id number] / [id number] documented as of this encounter Additional Health [...] Power of Attor jus? No Care Teams Supreme [address] Justice Relationship Specialty Start Date End Date Kaiser Amanda MD [address] [place] [address] PCP - General Family Medicine 04/11/21 documented as of this encounter
--- OUTSIDE RECORDS SUMMARY | 2024-01-29 20:35 | External Medical Summary | Summary of Care ---
Author Name Unknown Organization [facility] [address] [address] Address [address] [facility] [address] Phone [phone] Care Team Providers Care Spin Table Operator Name Role Phone Kaiser Amanda MD Primary Care Provider [phone] Reason for Visit * Precert (Within 10 days (routine)) - Authorized Specialty Diagnoses / Procedures Referred By Contac t Referred To Contact Radiology Diagnoses Abdominal pain, generalized Change in bowel habits Early satiety Weight loss Iron deficiency anemia, unspecified iron deficiency anemia type Procedures NM GASTRIC EMPTYING STUDY SOLID Thelma Jamil PA-C [address] [place] [address] [place] [phone] Referral ID Status Reason Start Date Expiration Date V isits Requested Visits Authorized [id number] Authorized 12/19/2023 999 999 Encounter Details Date Type Department Care Team (Latest Contact Info) Description 01/02/2024 6:32 AM EDT - 01/02/2024 11:59 PM EDT Hospital Encounter Radiology, [facility] [address] [facility] [address] Arrived Discharge Disposition: Home - Self Care [...] Dx: E11.9 1 Kit 11 06/06/2021 Active Radario Delglory Lancets 30GIndications:Type 2 diabetes mellitus with [...] less than 7.5% ([facility]) TAKE 1 TABLET BY MOUTH DAILY. TAKE 30 MINUTES BEFORE A MEAL 90 Tablet 3 12/26/2022 Active Hydrocortisone 2.5 % External Cream Apply to eyebrows twice daily for 3-5 days at a time as needed for flares 60 g 2 01/19/2023 Active Radario Verio In Vitro Strip (Glucose Blood)Indications:T ype 2 diabetes mellitus with polyneuropathy ([facility]),Type 2 diabetes mellitus with hemoglobin A1c goal of less than 7.5% ([facility]) USE STRIP TO CHECK GLUCOSE ONCE [...] mRNA, LNP-s, No Pre serve, 2-Dose Series ([employer]) 04/23/2021,08/09/2020,07/12/2020 Covid-19, Mrna, Lnp-s, Pf, B ivalent, [...] do you have serious difficulty h earing? No-NOOKSACK 11/07/2023 Are you blind or do you [...] 10:40 AM EDT Office Visit Family Practice, [place] [phone] Kaiser Amanda MD [address] [place] [address] 01/09/2024 1:00 PM EDT Anticoagulation Pharmacy, [place] [address] Pharmacist1, [facility] [place] [address] 01/21/2024 2:00 PM EDT Office Visit Endocrinology [address] [place] [address] Sakina Jones MD [address] [facility] [place], [place] [address] 01/25/2024 3:30 PM EDT Office Visit MOHS Surgery [facility] [address] [place] [address] Laney Hogue MD [address] [place] [address] 02/21/2024 10:30 AM EDT Office Visit Urology Aleida Rinaldi [place] [address] [place] [address] [place] [address] Nikolai Chaudhari MD [address] [place] [address] 02/25/2024 11:20 AM EDT Office Visit [facility] [address] [facility] [place] [phone] Kaiser Amanda MD [address] [facility] [place] [address] 03/05/2024 1:00 PM EDT Appointment Cardiac Studies, [address] [place] [address] 03/26/2024 8:00 AM EST Hospital Encounter OR GLH, Operating Room, [facility] - 4th Floor 400 [facility] [place] [address] John Gordillo MD [address] [place] [address] 03/26/2024 8:00 AM EST - 03/26/2024 8:46 AM EST Surgery OR GLH, Operating Room, [facility] - 4th Floor 400 [facility] [place] [address] John Gordillo MD 132 [place] [address] COLONOSCOPY FLEXIBLE PROXIMAL DIAGNOSTIC 04/01/2024 12:30 PM EST Office Visit Gastroenterology, [facility] [address] [facility] [phone] Thelma Jamil PA-C [address] [facility] [address] 06/12/2024 2:00 PM EST Office Visit Cardiology, [place] [address] [facility] [place] [address] Clarissa Rapp PA-C 400 [place] [address] 10/21/2024 9:15 AM EDT Appointment Radiology, [facility] [address] [facility] [place] [address] 10/29/2024 9:45 AM EDT Office Visit Urology [place] [address] [facility] [address] [place] [address] Keagan Thayer, Bert Giron MD [address] [place] [place] [address] Scheduled Procedures Name Priority Associated Diagnoses Date/Ti [...] D LEVEL ONCE IN A LIFETIME-USE SMARTSET# [id number] Completed 07/26/2023, 02/26/2023, 01/23/2023, Additional history exists [...] this encounter Medical Devices Implanted Type Area Miniature Model Maker Device Identifier Shelf Expiration Date Model / Serial / Lot Cement Bone Simplex Hv & G - [id number] Implanted:Qty: 2 on 09/02/2020 by Gianni Hubbard MD at OR [facility] Right: Hip LUDY : ORTHOPAEDICS 08/11/2021 6195-1-010 / / [id number] Spacer Ring Aclde Distal Lg 14 - [id number] Implanted:Qty: 1 on 09/02/2020 by Gianni Hubbard MD at OR [facility] Right: Hip LUDY : ORTHOPAEDICS 11/25/2024 0976-6482 / / Accolade C Cs 127 6 37/158 - [id number] Implanted:Qty: 1 on 09/02/2020 by Gianni Hubbard MD at OR [facility] Right: Hip LUDY : ORTHOPAEDICS 05/29/2023 [id number] / / [id number] Hip Cocr Lfit Head V40 28/+4 - [id number] Implanted:Qty: 1 on 09/02/2020 by Gianni Hubbard MD at OR [facility] Right: Hip LUDY : ORTHOPAEDICS 11/15/2024 6260-9-228 / / [id number] Hip Head Bipol Uhr Uni 28x52 - [id number] Implanted:Qty: 1 on 09/02/2020 by Gianni Hubbard MD at OR [facility] Right: Hip LUDY : ORTHOPAEDICS 11/25/2024 [id number] / / [id number] Lens Intraoc 17.5 - [id number] - [id number] Implanted:Qty: 1 on 03/23/2022 by Rad Morgan MD at OR [facility] Left: Eye BAUSCH & LOMB 10/11/2026 [id number] / [id number] / [id number] Lens Intraoc 18.0 - [id number] - [id number] Implanted:Qty: 1 on 03/30/2022 by Rad Morgan MD at OR [facility] Right: Eye BAUSCH & LOMB 01/11/2027 [id number] / [id number] / [id number] documented as of this encounter Procedures Procedure [...] the resident/fellow physician's interpretation. Thelma Jamil PA-C [facility] documented in this encounter [...] Power of Attor jus? No Care Teams Spin Table Operator Relationship Specialty Start Date End Date Kaiser Amanda MD 21 [place] [address] PCP - General Family Medicine 04/11/21 documented as of this encounter
--- OUTSIDE RECORDS SUMMARY | 2024-01-29 20:35 | External Medical Summary | Summary of Care ---
Author Name Unknown Organization [facility] Address [address] [facility] [place] [address] Phone [phone] Care Team Providers Care Analytical Lead Name Role Phone Kaiser Amanda MD Primary Care Provider [phone] Reason for Referral * Precert (Within 10 days (routine)) - Authorized Specialty Diagnoses / Procedures Referred By Fauzia oconnor Referred To Contact Radiology Diagnoses Abdominal pain, generalized Change in bowel habits Early satiety Weight loss Iron deficiency anemia, unspecified iron deficiency anemia type Procedures NM GASTRIC EMPTYING STUDY Thelma Meadows PA-C [address] [employer] [place] [address] Referral ID Status Reason Start Date Expiration Date V isits Requested Visits Authorized [id number] Authorized 12/19/2023 999 999 Reason for Visit * Precert (Within 10 days (routine)) - Authorized Specialty Diagnoses / Procedures Referred By Fauzia oconnor Referred To Contact Radiology Diagnoses Abdominal pain, generalized Change in bowel habits Early satiety Weight loss Iron deficiency anemia, unspecified iron deficiency anemia type Procedures NM GASTRIC EMPTYING STUDY SOLID Thelma Jamil PA-C [address] [place] [phone] Referral ID Status Reason Start Date Expiration Date V isits Requested Visits Authorized [id number] Authorized 12/19/2023 999 999 Encounter Details Date Type Department Care Team (Latest Contact Info) Description 01/02/2024 6:31 AM EDT Hospital Encounter Radiology, [facility] [address] [place], [place] [phone] Arrived Discharge Disposition: Home - Self Care Allergies Active Allergy Reactions Criticality Noted Date Comments Cat Dander Itching 07/14/2016 documented as of this encounter (statuses as of 01/03/2024) Medications Medication Sig Dispensed Refills Start Date End Date Status ThirdSpaceLearningTouch Ultra 2 w/Device KitIndications:Type 2 diabetes mellitus with hemoglobin A1c goal of less than 7.5% ([facility]) Testing blood sugars twice daily Dx: E11.9 1 Kit 11 06/06/2021 Active ThirdSpaceLearningTouch Delica Lancets 30GIndications:Type 2 diabetes mellitus with hemoglobin A1c goal of less than 7.5% ([facility]),Type 2 diabetes mellitus with polyneuropathy ([facility]) Check BS once daily E11.9 100 Each [...] goal of less than 7.5% ([facility]) TAKE 1 TABLET BY MOUTH DAILY. TAKE 30 MINUTES BEFORE A MEAL 90 Tablet 3 12/26/2022 Active Hydrocortisone 2.5 % External Cream Apply to eyebrows twice daily for 3-5 days at a time as needed for flares 60 g 2 01/19/2023 Active OneTouch Verio In Vitro Strip (Glucose Blood)Indications:T ype 2 diabetes mellitus with polyneuropathy ([facility]),Type 2 diabetes mellitus with hemoglobin A1c goal of less than 7.5% ([facility]) USE STRIP TO CHECK GLUCOSE ONCE DAILY [...] first meal of the day. 30 Capsule 07/26/2023 Active Atorvastatin Calcium 40 MG Oral [...] mRNA, LNP-s, No Pre serve, 2-Dose Series ([employer]) 04/23/2021,08/09/2020,07/12/2020 Covid-19, Mrna, Lnp-s, Pf, B ivalent, [...] do you have serious difficulty h earing? No-CHOCTAW 11/07/2023 Are you blind or do you [...] 10:40 AM EDT Office Visit Family Practice, [place] [address] [place] [phone] Kaiser Amanda MD [address] [place] [phone] 01/09/2024 1:00 PM EDT Anticoagulation Pharmacy, [place] [address] [place] [address] Pharmacist1, [facility] [place] [address] [place] [address] 01/21/2024 2:00 PM EDT Office Visit Endocrinology [address] [place] [address] Sakina Jones MD [address] [place] [address] 01/25/2024 3:30 PM EDT Office Visit [facility] Surgery [facility] 200 [place] [address] Laney Hogue MD 200 [place] [address] 02/21/2024 10:30 AM EDT Office Visit Urology [place] [facility] [address] [facility] 270 [place] [address] Nikolai Chaudhari MD [address] [place] [address] 02/25/2024 11:20 AM EDT Office Visit [facility] [place] 21 [place] [phone] Kaiser Amanda MD [address] [place] [address] 03/05/2024 1:00 PM EDT Appointment Cardiac Studies, [address] [place] [address] 03/26/2024 8:00 AM EST Hospital Encounter OR GL, Operating Room, [facility] - 4th Floor [address] [facility] [place] [address] John Gordillo MD [address] [facility] [place] [address] 03/26/2024 8:00 AM EST - 03/26/2024 8:46 AM EST Surgery OR [facility], Operating Room, [facility] - 4th Floor 400 [facility] [place] [address] John Gordillo MD [address] [place] [address] COLONOSCOPY FLEXIBLE PROXIMAL DIAGNOSTIC 04/01/2024 12:30 PM EST Office Visit Gastroenterology, [facility] [address] [facility] [address] Thelma Jamil PA-C [address] [place] [address] [place] [address] 06/12/2024 2:00 PM EST Office Visit Cardiology, [address] [place] [address] Clarissa Rapp PA-C [address] [place] [address] [place] [address] 10/21/2024 9:15 AM EDT Appointment Radiology, [address] [place] [address] 10/29/2024 9:45 AM EDT Office Visit Urology [place] [address] [place] [address] Keagan Thayer, Bert Giron MD [address] [place] [address] Scheduled Procedures Name Priority Associated Diagnoses Date/Ti [...] D LEVEL ONCE IN A LIFETIME-USE SMARTSET# 56177 Completed 07/26/2023, 02/26/2023, 01/23/2023, Additional history exists [...] this encounter Medical Devices Implanted Type Area Check And Transfer Beader Device Identifier Shelf Expiration Date Model / Serial / Lot Cement Bone Simplex Hv & G - [id number] Implanted:Qty: 2 on 09/02/2020 by Gianni Hubbard MD at OR [facility] Right: Hip LUDY : ORTHOPAEDICS 08/11/2021 6195-1-010 / / [id number] Spacer Ring Aclde Distal Lg 14 - [id number] Implanted:Qty: 1 on 09/02/2020 by Gianni Hubbard MD at OR [facility] Right: Hip LUDY : ORTHOPAEDICS 11/25/2024 [id number] / / Accolade C Cs 127 6 37/158 - [id number] Implanted:Qty: 1 on 09/02/2020 by Gianni Hubbard MD at OR [facility] Right: Hip LUDY : ORTHOPAEDICS 05/29/2023 [id number] / / [id number] Hip Cocr Lfit Head V40 28/+4 - [id number] Implanted:Qty: 1 on 09/02/2020 by Gianni Hubbard MD at OR [facility] Right: Hip LUDY : ORTHOPAEDICS 11/15/2024 6260-9-228 / / [id number] Hip Head Bipol Uhr Uni 28x52 - [id number] Implanted:Qty: 1 on 09/02/2020 by Gianni Hubbard MD at OR [facility] Right: Hip LUDY : ORTHOPAEDICS 11/25/2024 UH1-52-28 / / [id number] Lens Intraoc 17.5 - [id number] - [id number] Implanted:Qty: 1 on 03/23/2022 by Rad Morgan MD at OR [facility] Left: Eye BAUSCH & LOMB 10/11/2026 [id number] / [id number] / [id number] Lens Intraoc 18.0 - [id number] - [id number] Implanted:Qty: 1 on 03/30/2022 by Rad Morgan MD at OR [facility] Right: Eye BAUSCH & LOMB 01/11/2027 [id number] / [id number] / [id number] documented as of this encounter Procedures Procedure [...] the resident/fellow physician's interpretation. Thelma Jamil PA-C [facility] documented in this encounter Visit Diagnoses Diagnosis Abdominal pain, generalized Change in bowel habits Other symptoms involving digestive system Early satiety Weight loss Loss of weight Iron deficiency anemia, unspecified iron deficiency anemia type History of colonic polyps Personal history of colonic polyps Abdominal pain, generalized Change in bowel habits Other symptoms involving digestive system Early satiety Weight loss Loss of weight Iron deficiency anemia, unspecified iron deficiency anemia type documented in this encounter Administered Medications Inactive Administered Medications - up to 3 most recent administrations Medication Order MAR Action Action Date Dose Rate Site technetium tc 99m sulfur colloid inj 500 microcurie 500 microcurie, Oral, ONCE, On Sun01/02/24 at 0813, For 1 dose, Radiology Medication Routing (Non-IR) Given 01/02/2024 8:25 AM EDT 500 microcuries documented in this encounter Additional Health Concerns [...] Power of Attor jus? No Care Teams Analytical Lead Relationship Specialty Start Date End Date Kaiser Amanda MD 21 [place] [address] PCP - General Family Medicine 04/11/21 documented as of this encounter
[2024-01-29] MEDS: INSULIN ASPART PER UNIT CHARGE SC SCH (20:36)
--- OUTSIDE RECORDS SUMMARY | 2024-01-29 20:36 | External Medical Summary ---
Author Name Unknown Address Unknown Organization K01:[facility] - [address] [place] [address] Laboratory Report Ordering Provider Test Date Status REBEKAH PARHAM 12/29/2023 15:11:00 Final Observation Date Value Abnormality Reference (Units ) Status Bacteria identified in Specimen by Culture 12/29/2023 15:11:00 [id number]^KLEBSIELL A PNEUMONIAE Abnormal Final >100,000 colonies/mL Klebsie lla pneumoniae Performing Location [facility] - [address] [place] [address] Ordering Provider Test Date Status REBEKAH PARHAM 12/29/2023 15:11:00 Final Observation Date Value Abnormality Reference (Units ) Status Ampicillin + Sulbactam 12/29/2023 15:11:00 4 Susceptible Final Cefazolin 12/29/2023 15:11:00 <=4 Susceptible Final Cefepime susceptibility 12/29/2023 15:11:00 <=1 Susceptible Final Ceftriaxone suceptibility 12/29/2023 15:11:00 <=1 Susceptible Final Ciprofloxacin 12/29/2023 15:11:00 <=0.25 Susceptible Final Due to serious side effects, the FDA has advised against using Ciprofloxacin to treat uncomplicated UTIs and respiratory tract infections unless there are no alternative treatment options. Gentamicin susceptibility 12/29/2023 15:11:00 <=1 Susc eptible Final Nitrofurantoin susceptibility 12/29/2023 15:11:00 64 Intermediate Final Piperacillin + Tazobactamsusceptibility 12/29/2023 15:11:00 <=4 Susceptible Final TMP-SMZ susceptibility 12/29/2023 15:11:00 <=20 Suscept ible Final Test: Culture, Urine, Quanti tative
Specimen Source: Urine, Clean Catch
Specimen Type: Urine
Specimen Date: 12/29/2023 1511
Result Date: 12/31/2023 1537
Result Status: Final result
Abnormal: Yes
Resulting Lab: [facility]
[address]
[place] [address]

CULTURE

>100,000 colonies/mL Klebsiella pneumoniae (Abnormal)

SUSCEPTIBILITY

Klebsiella
pneumoniae
METHOD MICROBROTH DILUTIONS

AMPICILLIN/SULBACTAM 4 Susceptible
CEFAZOLIN <=4 Susceptible
CEFEPIME <=1 Susceptible
CEFTRIAXONE <=1 Susceptible
CIPROFLOXACIN <=0.25 Susceptible
[1]
GENTAMICIN <=1 Susceptible
NITROFURANTOIN 64 Intermediate
PIPERACILLIN TAZOBACTAM <=4 Susceptible
TRIMETH/SULFAMETHOXAZOLE <=20 Susceptible

[1] Due to serious side effects, the FDA has advised against using
Ciprofloxacin to treat uncomplicated UTIs and respiratory tract infections
unless there are no alternative treatment options.

null Performing Location [facility] - [address] [facility] [address]
--- OUTSIDE RECORDS SUMMARY | 2024-01-29 20:36 | External Medical Summary | Summary of Care ---
Author Name Unknown Organization [facility] Address [address] [facility] [place] [address] Phone [phone] Care Team Providers Care Post Production Assistant Name Role Phone Zaire Urias MD Primary Care Provider [phone] Reason for Referral * Precert (Within 10 days (routine)) - Authorized Specialty Diagnoses / Procedures Referred By Fauzia oconnor Referred To Contact Radiology Diagnoses Abdominal pain, generalized Change in bowel habits Early satiety Weight loss Iron deficiency anemia, unspecified iron deficiency anemia type Procedures NM GASTRIC EMPTYING STUDY SOLID Thelma Jamil PA-C [address] [place] [id number] Referral ID Status Reason Start Date Expiration Date V isits Requested Visits Authorized [id number] Authorized 12/19/2023 999 999 Reason for Visit * Reason Comments NEW PATIENT Abdominal Pain * Evaluate & Treat - Unlimited Visits (Within 30 days (routine)) - Authorized Specialty Diagnoses / Procedures Referred By Fauzia oconnor Referred To Contact Gastroenterology Diagnoses Abdominal pain, generalized Blase, NasreenSUZE [address] [address] Referral ID Status Reason Start Date Expiration Date Visits Requested Visits Authorized [id number] Authorized Specialty Services Required 12/05/2023 999 999 Encounter Details Date Type Department Care Team (Late st Contact Info) Description 12/19/2023 11:00 AM EDT Office Visit Gastroenterology, Rolo Calabrese [address] [place] [phone] Thelma Jamil PA-C [facility] [place] [address] Abdominal pain, generalized*; Change in bowel habits; Early satiety; Weight loss; Iron deficiency anemia, unspecified iron deficiency anemia type Allergies Active Allergy Reactions Criticality Noted Date Comments Cat Dander Itching 07/14/2016 documented as of this encounter (statuses as of 12/19/2023) Medications Medication Sig Dispensed Refills Start Date End Date Status Art of the DreamTouch Ultra 2 w/Device KitIndications:Type 2 diabetes mellitus with hemoglobin A1c goal of less than 7.5% ([facility]) Testing blood sugars twice daily Dx: E11.9 1 Kit 11 06/06/2021 Active Art of the DreamToTheReadingRoom Delica Lancets 30GIndications:Type 2 diabetes mellitus with hemoglobin A1c goal of less than 7.5% (HCC),Type 2 diabetes mellitus with polyneuropathy ([facility]) Check BS once daily E11.9 [...] A MEAL 90 Tablet 3 12/26/2022 Active DULoxetine HCl 60 MG Oral Capsule Delayed Release Particles (Cymbalta)Indicatio ns:Depression with anxiety Take 1 Capsule by mouth in the morning. 90 Capsule 3 12/26/2022 Active Hydrocortisone 2.5 % External Cream Apply to eyebrows twice daily for 3-5 days at a time as needed for flares 60 g 2 01/19/2023 Active OneTouch Verio In Vitro Strip (Glucose Blood)Indications:T ype 2 diabetes mellitus with polyneuropathy (HCC),Type 2 diabetes mellitus with hemoglobin A1c goal of less than 7.5% ([facility]) USE STRIP TO CHECK GLUCOSE [...] at bedtime. 15 Tablet 5 10/29/2023 Active Tamsulosin HCl 0.4 MG Oral Capsule (Flomax) Take 2 Capsules by mouth at bedtime. 60 Capsule 11/08/2023 12/19/19 24 Active Finasteride 5 MG Oral Tablet (Proscar)Indication [...] (Psyllium) Take by mouth every evening. Active documented as of this encounter (statuses as of 12/19/2023) Active Problems Problem Noted Date Diagnosed Date [...] as of this encounter (statuses as of 12/19/2023) Resolved Problems Problem Noted Date Diagnosed Date [...] as of this encounter (statuses as of 12/19/2023) Immunizations Name Administration Dates Next Due COVID-19 mRNA, LNP-s, No Pre serve, 2-Dose Series ([facility]) 04/23/2021,08/09/2020,07/12/2020 Covid-19, Mrna, Lnp-s, Pf, B ivalent, 30 Mcg, IM, 12 yrs and above ([facility]) 05/19/2022 Pneumococcal Conjugate Vacc, 13 Valent (Prevnar) [...] Sign Reading Time Taken Comments Blood Pressure 100/55 12/19/2023 10:50 AM EDT Pulse 99 12/19/2023 10:50 AM EDT Temperature 36.4 C (97.5 F) 12/19/2023 10:50 AM E DT Respiratory Rate 18 12/19/2023 10:50 AM EDT Oxygen Saturation - - Inhaled Oxygen Concentration - - Weight 69.4 kg (153 lb 1.6 oz) 12/19/2023 10:50 AM EDT Height - - Body Mass Index 22.61 11/12/2023 12:14 PM EDT documented in this encounter Functional Status Functional Status Response Date of Assess ment Are you deaf or do you have serious difficulty h earing? No-[place] 11/07/2023 Are you blind or do you [...] (15 years old or older) Yes 11/07/19 24 Cognitive Status Response Date of Assessm ent Because of a physical, menta l, or emotional condition, do you have serious difficulty concentrating, remembering, or making decisions? (5 years old or older) No 11/07/2023 documented as of this encounter Patient Instructions * Patient Instructions* Thelma Jamil PA-C - 12/19/2023 11:40 AM EDT Continue once daily powdered fiber supplement - can change to Benefiber if preferred. Every other day, add 1/2 capful of Miralax to the fiber. documented in this encounter Progress Notes * Thelma Jamil PA-C - 12/19/2023 11:05 AM EDT PCP: PCP: ZAIRE URIAS [address] [place] [address] [phone] CC: abdominal pain HPI: 73 year old male with a hx of HTN, Hodgkin's lymphoma, PE/on coumadin, DM, cervical spine injury and others, presents with his today for evaluation of abdominal pain. Patient reports symptoms for about a year or more, with lower abdominal pain, worse following a BM and occasionally post prandially with red sauces/spaghetti. He describes the pain as a "pressure." Reports BMs 1-2 times daily but does occasionally skip a day or two. Reports passing small amounts ofsofter stools with some straining when he does go. No rectal bleeding. He did start taking metamucil in the past month, which he feels is helping somewhat. Also pepto helps sometimes. Has tried daily dulcolax and daily miralax in the past, and both caused significant diarrhea. He reports early satiety and post prandial nausea without emesis. States he has lost about 20 pounds in the past six months. Denies any significant heartburn/on omeprazole. No dysphagia. No prior hx of EGD. Last colonoscopy 03/16/22 - Impression: - The examined portion of the ileum was normal. - Four 6 mm polyps in the transverse colon, removed with a cold snare. Resected and retrieved. - Diverticulosis in the sigmoid colon, in the descending colon and in the transverse colon. - Non-bleeding internal hemorrhoids. - Anal papilla(e) were hypertrophied. A. Colon, transverse, polypectomy: -- Fragments of tubular adenomas. Chart review shows a chronic, mild, iron deficiecy anemia, despite patient taking oral iron regularly. CTAP 11/07/23 - IMPRESSION: 1. Distended urinary bladder with no significant wall thickening. Correlate for urinary retention. 2. Stable bilateral renal cysts and nephrolithiasis. There is also a chronic nonobstructing stone at the right UPJ. 3. Small gallstone. 4. Colonic diverticulosis. ROS: Constitutional: no weakness, no fatigue, and + weight loss Eyes: no worsening of vision and no eye pain, redness, discharge ENT: no hearing loss, no congestion, no runny nose, no sore throat Resp: no cough, no sputum, no wheezing, and no SOB Cardiac: no chest pain, no orthopnea, and no dyspnea on exertion Male : + nocturia 2 or more times a night and + dysuria Neuro: no memory loss and no weakness Heme: no fever, no chills, no sweats, and no bleeding/bruising Endo: no excessive thirst and no excessive urination Skin: no rash, no itching, and no new/changing skin lesions ALLERGIES: Review of patient's allergies indicates: Allergen Reactions Cat Dander Itching Current Outpatient Medications Medication Sig Dispense Refill Vitamin D 25 MCG (1000 UT) Oral Tablet Take 1 Tablet (1,000 Units) by mouth daily at noon. 30 Tablet 3 Cinacalcet HCl 30 MG Oral Tablet (Sensipar) Take 1 tablet by mouth once daily (Patient taking differently: Take 1 Tablet by mouth in the morning.) 90 Tablet 3 Iron 325 (65 Fe) MG Oral Tablet Take 1 Tablet by mouth every evening. glipiZIDE ER 10 MG Oral Tablet Extended Release 24 Hour (Glucotrol XL) TAKE 1 TABLET BY MOUTH DAILY. TAKE 30 MINUTES BEFORE A MEAL 90 Tablet 3 DULoxetine HCl 60 MG Oral Capsule Delayed Release Particles (Cymbalta) Take 1 Capsule by mouth in the morning. 90 Capsule 3 metFORMIN HCl 1000 MG Oral Tablet (Glucophage) TAKE 1 TABLET BY MOUTH TWICE A DAY WITH BREAKFAST AND DINNER (Patient taking differently: Take 1 Tablet by mouth 2 times a day with morning and evening meals. TAKE 1 TABLET BY MOUTH TWICE A DAY WITH BREAKFAST AND DINNER) 180 Tablet 1 Omeprazole 20 MG Oral Capsule Delayed Release (PriLOSEC) Take 1 Capsule by mouth in the morning. 1 hour before the first meal of the day. 30 Capsule 5 Atorvastatin Calcium 40 MG Oral Tablet (Lipitor) Take 1 Tablet by mouth in the morning. 90 Tablet 3 Metoprolol Succinate ER 25 MG Oral Tablet Extended Release 24 Hour (toPROL XL) Take 0.5 Tablets by mouth every night at bedtime. 15 Tablet 5 Tamsulosin HCl 0.4 MG Oral Capsule (Flomax) Take 2 Capsules by mouth at bedtime. 60 Capsule 0 Finasteride 5 MG Oral Tablet (Proscar) Take 1 Tablet by mouth in the morning. 90 Tablet 3 Warfarin Sodium 5 MG Oral Tablet (Coumadin) Take 1 Tablet by mouth every evening. Or as directed byanticoagulation clinic 90 Tablet 3 Midodrine HCl 5 MG Oral Tablet (Proamatine) Take 1 Tablet by mouth in the morning and 1 Tablet at noon and 1 Tablet in the evening. Do not take at bedtime.. 270 Tablet 3 AZO Cranberry 250-30 MG Oral Tablet Take by mouth every evening. Metamucil 48.57 % Oral Powder (Psyllium) Take by mouth every evening. [place] 2 w/Device Kit Testing blood sugars twice daily Dx: E11.9 1 Kit 11 [employer] Delica Lancets 30G Check BS once daily E11.9 100 Each 0 Docusate Sodium 100 MG Oral Capsule (Colace) Take 1 Capsule (100 mg) by mouth in the morning and 1 Capsule (100 mg) before bedtime. (Patient not taking: Reported on 12/19/2023) 10 Capsule 0 Hydrocortisone 2.5 % External Cream Apply to eyebrows twice daily for 3-5 days at a time as needed for flares 60 g 2 OneTouch Verio In Vitro Strip (Glucose Blood) USE STRIP TO CHECK GLUCOSE ONCE DAILY 100 Strip 3 Nitroglycerin 0.4 MG Sublingual Tablet Sublingual (Nitrostat) Place 1 Tablet under the tongue every5 minutes as needed for Pain, Chest. 25 Tablet 0 Ondansetron 4 MG Oral Tablet Disintegrating (Zofran) Place 1 Tablet on tongue every 8 hours as needed for Nausea. dissolve on tongue. 20 Tablet 0 Ketoconazole 2 % External Shampoo (Nizoral) APPLY TO SCALP AND EYEBROWS DAILY- LATHER, WAIT 5 MINUTES, THEN RINSE 120 mL 1 Triamcinolone Acetonide 0.1 % External Cream (Aristocort) Apply to rash on abdomen twice daily as needed 80 g 5 No current facility-administered medications for this visit. Past Medical History: Diagnosis Date Cervical spinal cord injury (HCC) 07/13/2018 s/p fall down steps at home Hodgkin's lymphoma (HCC) 1998 Hypercalcemia Pulmonary embolism (HCC) Type 2 diabetes mellitus (HCC) UTI (urinary tract infection) Past Surgical History: Procedure Laterality Date COLONOSCOPY, DIAGNOSTIC (RECTUM) N/A 03/16/2022 diverticulosis sigmoid, descending and transverse colon/non-bleeding internal hemorrhoids/hypertrophied anal papilla/biopsies show adenomatous polyps/recall 3 years/COLONOSCOPY FLEXIBLE PROXIMAL DIAGNOSTIC performed by John Gordillo MD at OR [facility] INCISIONAL HERNIA REPAIR, LAP, REDUCIBLE left inguinal and umbelical INFORMATION 05/14/1988 lymph node removal KNEE ARTHROSCOPY/SURGERY PARTIAL HIP REPLACEMENT & PROSTH Right 09/02/2020 HEMIARTHROPLASTY HIP performed by Gianni Hubbard MD at OR [facility] REMOVE CATARACT, INSERT LENS PROSTH Left 03/23/2022 LEFT EXTRACAPSULAR CATARACT REMOVAL WITH INTRAOCULAR LENS performed by Rad Morgan MD at OR [facility] REMOVE CATARACT, INSERT LENS PROSTH Right 03/30/2022 RIGHT EXTRACAPSULAR CATARACT REMOVAL WITH INTRAOCULAR LENS performed by Rad Morgan MD at OR [facility] REMOVE TONSILS & ADENOIDS, AGE 12+ UMBIL HERNIA REPAIR (INCARCERATED) AGE 5+YR Family History Problem Relation Name Age of Onset Other (Aneurysm) Father Other (Lymphoma) Mother SOCIAL HISTORY: Social History Tobacco Use Smoking status: Never Passive exposure: Never Smokeless tobacco: Never Substance Use Topics Alcohol use: Not Currently Comment: rarely Vaping/E-Cigarette Use Vaping/E-Cigarette Use Never User Vaping/E-Cigarette Substances Vaping/E-Cigarette Devices PHYSICAL EXAM BP 100/55 | Pulse 99 | Temp 36.4 C (97.5 F) (Infrared ) | Resp 18 | Wt 69.4 kg (153 lb 1.6 oz) | BMI 22.61 kg/m | BSA 1.84 m GENERAL: alert and no distress HEAD: Normocephalic, No masses, lesions or abnormalities EYES: conjunctiva are pink and non-injected, sclera clear NECK: supple LUNGS: clear to auscultation HEART: regular rate & rhythm ABDOMEN: abdomen soft, normal bowel sounds, no masses or organomegaly, and +mild epigastric tenderness EXTREMITIES: no edema NEURO: alert & oriented x 3 with fluent speech, no focal motor/sensory deficits ASSESSMENT: ICD-10-CM 1. Abdominal pain, generalized R10.84 2. Change in bowel habits R19.4 3. Early satiety R68.81 4. Weight loss R63.4 5. Iron deficiency anemia, unspecified iron deficiency anemia type D50.9 PLAN: Continue daily fiber supplement. Add 1/2 capful of Miralax every other day. Will obtain a SP-GES toevaluate for gastroparesis, and EGD and colonoscopy will be scheduled. Monitor symptoms and follow up here after testing has been completed. Thelma Jamil PA-C documented in this encounter Nursing Notes * Azra Santillan RN - 12/19/2023 10:51 AM EDT Chief Complaint Patient presents with NEW PATIENT Abdominal Pain Has had lower abdominal pain constantly for several months. Occasionally vomiting after eating. Gets full quick. Feels like he cannot eat much. Moving bowels once a day if he uses Metamucil. documented in this encounter Plan of Treatment Upcoming Encounters Date Type Department Care Team (Late st Contact Info) Description 01/02/2024 7:00 AM EDT [address], [address] [address] 01/02/2024 8:30 AM EDT App[address] Radiology, [address] [address] 01/02/2024 9:30 AM EDT App[address]iology, [address] [address] 01/02/2024 11:30 AM EDT App[address]ment [address]iology, [address] [address] 01/09/2024 1:00 PM EDT [facility] [address] [place] [address] Pharmacist1, [facility] [address] [facility] [place] [address] 01/21/2024 2:00 PM EDT Office Visit Endocrinology [address] [place] [address] Sakina Jones MD [address] [place] [address] 01/25/2024 3:30 PM EDT Office Visit [facility] [address] [place] [address] Laney Hogue MD [address] [place] [address] 02/21/2024 10:30 AM EDT Office Visit Urology Aleida Rinaldi [place] [address] [facility] [address] [place] [address] Nikolai Chaudhari MD [address] [place] [address] 02/25/2024 11:20 AM EDT Office Visit [facility], [place] [address] [phone] Zaire Urias MD [address] [place] [address] 03/05/2024 1:00 PM EDT Appointment Cardiac Studies, [address] [place] [address] 03/26/2024 8:00 AM EST Hospital Encounter OR GL, Operating Room, [facility] - 4th Floor [address] [facility] [place] [address] John Gordillo MD [address] [facility] [place] [address] 03/26/2024 8:00 AM EST - 03/26/2024 8:46 AM EST Surgery OR [facility], Operating Room, [facility] - 4th Floor [address] [place] [address] [place] [address] John Gordillo MD [address] [facility] [place] [address] COLONOSCOPY FLEXIBLE PROXIMAL DIAGNOSTIC 04/01/2024 12:30 PM EST Office Visit Gastroenterology, [facility] [address] [facility] [place] [place] [address] Thelma Jamil PA-C [address] [place] [address] [place] [address] 06/12/2024 2:00 PM EST Office Visit Cardiology, [address] [place] [address] Clarissa Rapp PA-C [address] [facility] [place] [address] 10/21/2024 9:15 AM EDT Appointment Radiology, [address] [place] [address] 10/29/2024 9:45 AM EDT Office Visit Urology Rolo Colon [address] [place] [address] Bert Boogie Jr., MD [address] [place] [address] Scheduled Orders Name Type Priority Associated Diagnoses Orde r Schedule NM GASTRIC EMPTYING STUDY SOLID Medical Imaging Routine Abdominal pain, generalized Change in bowel habits Early satiety Weight loss Iron deficiency anemia, unspecified iron deficiency anemia type Expected: 12/19/2023 (Approximate), Expires: 01/18/2025 EGD, FLEXIBLE, DIAGNOSTIC Procedures Routine Abdominal pain, generalized Change in bowel habits Early satiety Weight loss Iron deficiency anemia, unspecified iron deficiency anemia type Ordered: 12/19/2023 COLONOSCOPY Gastro Lower Routine Abdominal pain, generalized Change in bowel habits Early satiety Weight loss Iron deficiency anemia, unspecified iron deficiency anemia type Ordered: 12/19/2023 Scheduled Procedures Name Priority Associated Diagnoses Date/Ti [...] 024, 01/10/2023, 07/07/2021, Additional history exists GFR 12/08/2024 12/09/2023, 10/13, 11/07/2023, Additional history exists DXA Scan 01/25/2025 01/25/2023, 09/0 01/2021, 12/10/2018 Colonoscopy 03/16/2025 03/16/2022, 11/0 07/2021, 08/06/2009 Colorectal Cancer Screening 03/16/2025 Lipid Panel 02/27/2028 02/26/2023, 12/0 08/2021, 05/26/2021, Additional history exists DTaP,Tdap,and Td Vaccines (3 - Td or Tdap) 12/10/2029 12/11/2019, 06/03/2014 Pneumococcal Vaccine: 65+ Years Completed 05/22/2017, 02/23/2016, 09/25/2011 Zoster Vaccines Completed 03/26/2019, 12/12, 09/27/2011 VITAMIN D LEVEL ONCE IN A LIFETIME-USE SMARTSET# [id number] Completed 07/26/2023, 02/26/2023, 01/23/2023, Additional history exists [...] this encounter Medical Devices Implanted Type Area Tax Accounting Assistant Device Identifier Shelf Expiration Date Model / Serial / Lot Cement Bone Simplex Hv & G - [id number] Implanted:Qty: 2 on 09/02/2020 by Gianni Hubbard MD at OR [facility] Right: Hip [employer]UD[employer] : ORTHOPAED[employer] 08/11/2021 6195-1-010 / / [id number] Spacer Ring Aclde Distal Lg 14 - [id number] Implanted:Qty: 1 on 09/02/2020 by Gianni Hubbard MD at OR [facility] Right: Hip [employer] : ORTHOPAEDICS 11/25/2024 0030-0118 / / Accolade C Cs 127 6 37/158 - [id number] Implanted:Qty: 1 on 09/02/2020 by Gianni Hubbard MD at OR [facility] Right: Hip [employer] : ORTHOPAEDICS 05/29/2023 [id number] / / [id number] Hip Cocr Lfit Head V40 28/+4 - [id number] Implanted:Qty: 1 on 09/02/2020 by Gianni Hubbard MD at OR [facility] Right: Hip [employer] : ORTHOPAEDICS 11/15/2024 6260-9-228 / / [id number] Hip Head Bipol Uhr Uni 28x52 - [id number] Implanted:Qty: 1 on 09/02/2020 by Gianni Hubbard MD at OR [facility] Right: Hip [employer]UD[employer] : ORTHOPAEDICS 11/25/2024 [id number] / / [id number] Lens Intraoc 17.5 - [id number] - [id number] Implanted:Qty: 1 on 03/23/2022 by Rad Morgan MD at OR [facility] Left: Eye [employer] 10/11/2026 [id number] / [id number] / [id number] Lens Intraoc 18.0 - [id number] - [id number] Implanted:Qty: 1 on 03/30/2022 by Rad Morgan MD at OR [facility] Right: Eye BA[employer]CH & LOMB 01/11/2027 [id number] / [id number] / [id number] documented as of this encounter Visit Diagnoses Diagnosis Abdominal pain, generalized- Primary Change in bowel habits Other symptoms involving [...] Power of Attor jus? No Care Teams Post Production Assistant Relationship Specialty Start Date End Date Zaire Urias MD [address] [place] [address] PCP - General Family Medicine 04/11/21 documented as of this encounter
--- OUTSIDE RECORDS SUMMARY | 2024-01-29 20:36 | External Medical Summary | Summary of Care ---
Author Name Unknown Organization [facility] Address [address] [facility] [place] [address] Phone [phone] Care Team Providers Care Chemical Processing Laborer Name Role Phone Kaiser Amanda MD Primary Care Provider [phone] Reason for Visit * Reason Onset Date Comments FYI 09/25/2023 Encounter Details Date Type Department Care Team (Late st Contact Info) Description 09/25/2023 [facility] [place] [address] Kaiser Amanda MD 21 [facility] [place] [address] Allergies Active Allergy Reactions Criticality Noted Date Comments Cat Dander Itching 07/14/2016 documented as of this encounter (statuses as of 12/25/2023) Medications Medication Sig Dispensed Refills Start Date End Date Status DrywaveTouch Ultra 2 w/Device KitIndications:Type 2 diabetes mellitus with hemoglobin A1c goal of less than 7.5% ([facility]) Testing blood sugars twice daily Dx: E11.9 1 Kit 11 06/06/2021 Active OneTouch Delica Lancets 30GIndications:Type 2 diabetes mellitus with hemoglobin A1c goal of less than 7.5% ([facility]),Type 2 diabetes mellitus with polyneuropathy ([facility]) Check BS once daily E11.9 100 Each [...] of less than 7.5% ([facility]) TAKE 1 TABLET BY MOUTH DAILY. TAKE 30 MINUTES BEFORE A MEAL 90 Tablet 3 12/26/2022 Active DULoxetine HCl 60 MG Oral Capsule Delayed Release Particles (Cymbalta)Indication s:Depression with anxiety Take 1 Capsule by mouth [...] as of this encounter (statuses as of 12/25/2023) Active Problems Problem Noted Date Diagnosed Date [...] as of this encounter (statuses as of 12/25/2023) Resolved Problems Problem Noted Date Diagnosed Date [...] as of this encounter (statuses as of 12/25/2023) Immunizations Name Administration Dates Next Due COVID-19 mRNA, LNP-s, No Pre serve, 2-Dose Series (Lotaris) 04/23/2021,08/09/2020,07/12/2020 Covid-19, Mrna, Lnp-s, Pf, B ivalent, [...] encounter Miscellaneous Notes * Telephone Encounter - Mary Garnett LPN - 09/25/2023 10:05 AM EDT Pt sched with Dr Amanda 09/27/23 * Telephone Encounter - Becky Bartlett OSA - 09/25/2023 9:56 AM EDT Zainab Martin called patient was admitted to [facility] for nursing, OT, and PT. documented in this encounter Plan of Treatment Upcoming Encounters Date Type Department Care Team (Late st Contact Info) Description 01/02/2024 7:00 AM EDT Appointment Radiology, [address] [place] [address] 01/02/2024 8:30 AM EDT [address], [address] [address] 01/02/2024 9:30 AM EDT App[address] Radiology, [address] [address] 01/02/2024 11:30 AM EDT Appointment Radiology, [address] [address] 01/09/2024 1:00 PM EDT Anticoagulation Pharmacy, [address] [address] Pharmacist1, [address] [address] 01/21/2024 2:00 PM EDT Office Visit Endocrinology [address] [place] [address] Sakina Jones MD 100 [facility] [place] [address] 01/25/2024 3:30 PM EDT Office Visit [facility] Surgery [facility] [address] [place] [address] Laney Hogue MD 200 [place] [address] 02/21/2024 10:30 AM EDT Office Visit Urology Rolo Colon [address] [place] [address] [place] [address] Nikolai Chaudhari MD [address] [place] [address] 02/25/2024 11:20 AM EDT Office Visit [facility] [phone] Kaiser Amanda MD 21 [place] [address] 03/05/2024 1:00 PM EDT Appointment Cardiac Studies, [facility] [address] [place] [phone] 03/26/2024 8:00 AM EST Hospital Encounter OR [facility], Operating Room, [facility] - 4th Floor [address] [place] [phone] John Gordillo MD 132 [facility] [place] [address] 03/26/2024 8:00 AM EST - 03/26/2024 8:46 AM EST Surgery OR [facility], Operating Room, [facility] - 4th Floor [address] [place] [phone] John Gordillo MD [address] [place] [address] COLONOSCOPY FLEXIBLE PROXIMAL DIAGNOSTIC 04/01/2024 12:30 PM EST Office Visit Gastroenterology, [facility] [place] [phone] Thelma Jamil PA-C 310 [facility] [place] [address] 06/12/2024 2:00 PM EST Office Visit Cardiology, [place] [address] [place] [phone] Clarissa Rapp PA-C 400 [facility] [place] [address] 10/21/2024 9:15 AM EDT Appointment Radiology, [facility] [address] [place] [address] 10/29/2024 9:45 AM EDT Office Visit Urology Rolo Colno [address] [place] [address] Bert Boogie Jr., MD 27 [place] [address] Scheduled Procedures Name Priority Associated Diagnoses Date/Ti [...] 01/25/2023, 0 01/2021, 12/10/2018 Colonoscopy 03/16/2025 03/16/2022, 110 07/2021, 08/06/2009 Colorectal Cancer Screening 03/16/2025 Lipid Panel 02/27/2028 02/26/2023, 1208/2021, 05/26/2021, Additional history exists DTaP,Tdap,and Td Vaccines (3 - Td or Tdap) 12/10/2029 12/11/2019, 06/03/2014 Pneumococcal Vaccine: 65+ Years Completed 05/22/2017, 02/23/2016, 09/25/2011 Zoster Vaccines Completed 03/26/2019, 12/12, 09/27/2011 VITAMIN D LEVEL ONCE IN A LIFETIME-USE SMARTSET# [id number] Completed 07/26/2023, 02/26/2023, 01/23/2023, Additional history exists [...] this encounter Medical Devices Implanted Type Area Psychiatric Arnp Device Identifier Shelf Expiration Date Model / Serial / Lot Cement Bone Simplex Hv & G - [id number] Implanted:Qty: 2 on 09/02/2020 by Gianni Hubbard MD at OR [facility] Right: Hip LUDY : ORTHOPAEDICS 08/11/2021 6195-1-010 / / [id number] Spacer Ring Aclde Distal Lg 14 - [id number] Implanted:Qty: 1 on 09/02/2020 by Gianni Hubbard MD at OR [facility] Right: Hip LUDY : ORTHOPAEDICS 11/25/2024 [id number] / / Accolade C Cs 127 6 37/158 - [id number] Implanted:Qty: 1 on 09/02/2020 by Gianni Hubbard MD at OR [facility] Right: Hip LUDY : ORTHOPAEDICS 05/29/2023 [id number] / / [id number] Hip Cocr Lfit Head V40 28/+4 - [id number] Implanted:Qty: 1 on 09/02/2020 by Gianni Hubbard MD at OR [facility] Right: Hip LUDY : ORTHOPAEDICS 11/15/2024 6260-9-228 / / [id number] Hip Head Bipol Uhr Uni 28x52 - [id number] Implanted:Qty: 1 on 09/02/2020 by Gianni Hubbard MD at OR [facility] Right: Hip LUDY : ORTHOPAEDICS 11/25/2024 [id number] / / [id number] Lens Intraoc 17.5 - [id number] - [id number] Implanted:Qty: 1 on 03/23/2022 by Rad Morgan MD at OR [facility] Left: Eye BAUSCH & LOMB 10/11/2026 [id number] / [id number] / [id number] Lens Intraoc 18.0 - [id number] - [id number] Implanted:Qty: 1 on 03/30/2022 by Rad Morgan MD at OR [facility] Right: Eye BAUSCH & LOMB 01/11/2027 [id number] / [id number] / [id number] documented as of this encounter Additional Health [...] Power of Attor jus? No Care Teams Chemical Processing Laborer Relationship Specialty Start Date End Date Kaiser Amanda MD 21 [place] [phone] PCP - General Family Medicine 04/11/21 documented as of this encounter
--- OUTSIDE RECORDS SUMMARY | 2024-01-29 20:36 | External Medical Summary ---
Author Name Unknown Address Unknown Organization K1F:[facility] - [address] [place] [address] Laboratory Report Ordering Provider Test Date Status REBEKAH PARHAM 12/29/2023 14:42:19 Final Observation Date Value Abnormality Reference (Units ) Status SYNC LEUKOCYTES IN BLOOD BY AUTOMATED COUNT 12/29/2023 14:42:19 13.22 Above high normal 4.00-10.80 (K/uL) Final Segs 12/29/2023 14:42:19 71.7 40.0-75.0 (%) Final Lymphs % 12/29/2023 14:42:19 18.6 18.0-42.0 (%) Final Monos 12/29/2023 14:42:19 7.3 1.0-11.0 (%) Final Eosinophils 12/29/2023 14:42:19 1.4 0.0-6.0 (%) Final Basos 12/29/2023 14:42:19 0.3 0.0-2.0 (%) Final Immature Granulocyte, Percent 12/29/2023 14:42:19 0.7 0.0-2.0 (%) Final Absolute Segs 12/29/2023 14:42:19 9.47 Above high normal 1.80-7.70 (K/uL) Final Lymphs, absolute 12/29/2023 14:42:19 2.46 1.00-4.80 (K/ul) Final Monos, Abs 12/29/2023 14:42:19 0.97 0.00-1.10 (K/uL) Final Eos, Abs 12/29/2023 14:42:19 0.19 0.00-0.70 (K/uL) Final Basos, Abs 12/29/2023 14:42:19 0.04 0.00-0.20 (K/uL) Final Immature Granulocytes, Number 12/29/2023 14:42:19 0.09 0.00-0.20 (K/uL) Final Performing Location [facility] - [address] [address]
--- OUTSIDE RECORDS SUMMARY | 2024-01-29 20:36 | External Medical Summary | Summary of Care ---
Author Name Unknown Organization [facility] Address [address] [facility] [place] [address] Phone [phone] Care Team Providers Care Leather Currier Name Role Phone Zaire Urias MD Primary Care Provider [phone] Reason for Visit * Reason Comments eRx-Medication Refill Encounter Details Date Type Department Care Team (Late st Contact Info) Description 12/26/2023 Refill [facility] 21 [facility] [place] [phone] Zaire Urias MD 21 [place] [address] Depression with anxiety Allergies Active Allergy Reactions Criticality Noted Date Comments Cat Dander Itching 07/14/2016 documented as of this encounter (statuses as of 12/27/2023) Medications Medication Sig Dispensed Refills Start Date End Date Status OctopusappTouch Ultra 2 w/Device KitIndications:Typ e 2 diabetes mellitus with hemoglobin A1c goal of less than 7.5% ([facility]) Testing blood sugars twice daily Dx: E11.9 1 Kit 11 06/06/19 22 Active OneTouch Delica Lancets 30GIndications:Typ e 2 diabetes mellitus with hemoglobin A1c goal of less than 7.5% ([facility]),Type 2 diabetes mellitus with polyneuropathy ([facility]) Check [...] by mouth every evening. 09/13/19 23 Active glipiZIDE ER 10 MG Oral Tablet Extended Release 24 Hour (Glucotrol XL)Indications:Typ e 2 diabetes mellitus with hemoglobin A1c goal of less than 7.5% ([facility]) TAKE 1 TABLET BY MOUTH DAILY. TAKE 30 MINUTES BEFORE A MEAL 90 Tablet 3 12/27/19 23 Active Hydrocortisone 2.5 % External Cream Apply to eyebrows twice daily for 3-5 days at a time as needed for flares 60 g 2 01/20/20 23 Active OneTouch Verio In Vitro Strip (Glucose Blood)Indications: Type 2 diabetes mellitus with polyneuropathy (HCC),Type 2 diabetes mellitus with hemoglobin A1c goal of less than 7.5% ([facility]) USE STRIP TO CHECK GLUCOSE ONCE DAILY 100 Strip 3 07/16/19 24 Active metFORMIN HCl 1000 MG Oral Tablet (Glucophage) TAKE 1 TABLET BY MOUTH TWICE A DAY WITH BREAKFAST AND DINNER 180 Tablet 1 07/21/19 24 Active Additional Information Patient taking differently: 1,000 [...] clinic 90 Tablet 3 11/28/19 24 Active Midodrine HCl 5 MG Oral Tablet (Proamatine)Indica tions:Orthostatic hypotension Take 1 Tablet by mouth in the morning and 1 Tablet at noon and 1 Tablet in the evening. Do not take at bedtime.. 270 Tablet 3 12/11/19 24 Active AZO Cranberry 250-30 MG Oral Tablet Take by mouth every evening. Active Metamucil 48.57 % Oral Powder (Psyllium) Take by mouth every evening. Active DULoxetine HCl 60 MG Oral Capsule Delayed Release Particles (Cymbalta)Indicati ons:Depression with anxiety Take 1 capsule by mouth in the morning 90 Capsule 3 12/27/19 24 Active DULoxetine HCl 60 MG Oral Capsule Delayed Release Particles (Cymbalta)Indicati ons:Depression with anxiety Take 1 Capsule by mouth in the morning. 90 Capsule 3 12/27/19 23 024 Discontinued documented as of this encounter (statuses as of 12/27/2023) Active Problems Problem Noted Date Diagnosed Date [...] as of this encounter (statuses as of 12/27/2023) Resolved Problems Problem Noted Date Diagnosed Date [...] as of this encounter (statuses as of 12/27/2023) Immunizations Name Administration Dates Next Due COVID-19 [...] do you have serious difficulty h earing? No-[facility] 11/07/2023 Are you blind or do [...] encounter Miscellaneous Notes * Telephone Encounter - Mamadou Sandoval RPh - 12/27/2023 2:12 PM EDT Signed Prescriptions: Disp Refills DULoxetine HCl 60 MG Oral Capsule Delayed *90 Cap*3 Sig: Take 1 capsule by mouth in the morningAuthorizing Provider: ZAIRE URIAS User: MAMADOU SANDOVAL Electronically signed by Mamadou Sandoval [facility] at 12/27/2023 2:12 PM EDT documented in this encounter Plan of Treatment Upcoming Encounters Date Type Department Care Team (Late st Contact Info) Description 01/02/2024 7:00 AM EDT Appointment Radiology, [address] [place] [phone] 01/02/2024 8:30 AM EDT Appointment Radiology, [address] [place] [address] 01/02/2024 9:30 AM EDT Appointment Radiology, [address] [place] [address] 01/02/2024 11:30 AM EDT Appointment Radiology, [address] [place] [address] 01/09/2024 1:00 PM EDT Anticoagulation Pharmacy, [address] [place] [address] Pharmacist1, [facility] [address] [place] [address] 01/21/2024 2:00 PM EDT Office Visit Endocrinology Natalie [address] [place] [address] Sakina Jones MD 100 [place], [place] [phone] 01/25/2024 3:30 PM EDT Office Visit [facility] Surgery [facility] [address] [place] [address] Laney Hogue MD 200 [place] [address] 02/21/2024 10:30 AM EDT Office Visit Urology Aleida Rinaldi [place] [address] [facility] 270 [place] [address] Nikolai Chaudhari MD 27 [place] [address] 02/25/2024 11:20 AM EDT Office Visit [facility], [place] [address] [place] [phone] Zaire Urias MD 21 [facility] [place] [address] 03/05/2024 1:00 PM EDT Appointment Cardiac Studies, [address] [place] [address] 03/26/2024 8:00 AM EST Hospital Encounter OR [facility], Operating Room, [facility] - 4th Floor [address] [place] [address] John Gordillo MD [address] [place] [address] 03/26/2024 8:00 AM EST - 03/26/2024 8:46 AM EST Surgery OR [facility], Operating Room, [facility] - 4th Floor [address] [place] [phone] John Gordillo MD [address] [place] [address] COLONOSCOPY FLEXIBLE PROXIMAL DIAGNOSTIC 04/01/2024 12:30 PM EST Office Visit Gastroenterology, [facility] [address] [place] [place] [address] Thelma Jamil PA-C [address] [place] [address] [place] [address] 06/12/2024 2:00 PM EST Office Visit Cardiology, [address] [place] [address] Clarissa Rapp PA-C 400 [facility] [place] [address] 10/21/2024 9:15 AM EDT Appointment Radiology, [address] [place] [phone] 10/29/2024 9:45 AM EDT Office Visit Urology Rolo Colon [address] [place] [address] Keagan Thayer, Bert Giron MD [address] [place] [address] Scheduled Procedures Name Priority Associated Diagnoses Date/Ti [...] 02/27/2028 02/26/2023, 08/2021, 05/26/2021, Additional history exists DTaP,Tdap,and Td Vaccines (3 - Td or Tdap) 12/10/2029 12/11/2019, 06/03/2014 Pneumococcal Vaccine: 65+ Years Completed 05/22/2017, 02/23/2016, 09/25/2011 Zoster Vaccines Completed 03/26/2019, 12/12, 09/27/2011 VITAMIN D LEVEL ONCE IN A LIFETIME-USE SMARTSET# [id number] Completed 07/26/2023, 02/26/2023, 01/23/2023, Additional history exists [...] this encounter Medical Devices Implanted Type Area Manufacturing Engineering Technician Device Identifier Shelf Expiration Date Model / Serial / Lot Cement Bone Simplex Hv & G - [id number] Implanted:Qty: 2 on 09/02/2020 by Gianni Hubbard MD at OR [facility] Right: Hip LUDY : ORTHOPAEDICS 08/11/2021 6195-1-010 / / [id number] Spacer Ring Aclde Distal Lg 14 - [id number] Implanted:Qty: 1 on 09/02/2020 by Gianni Hubbard MD at OR [facility] Right: Hip LUDY : ORTHOPAEDICS 11/25/2024 [id number] / / Accolade C Cs 127 6 37/158 - [id number] Implanted:Qty: 1 on 09/02/2020 by Gianni Hubbard MD at OR [facility] Right: Hip LUDY : ORTHOPAEDICS 05/29/2023 [id number] / / [id number] Hip Cocr Lfit Head V40 28/+4 - [id number] Implanted:Qty: 1 on 09/02/2020 by Gianni Hubbard MD at OR [facility] Right: Hip LUDY : ORTHOPAEDICS 11/15/2024 6260-9-228 / / [id number] Hip Head Bipol Uhr Uni 28x52 - [id number] Implanted:Qty: 1 on 09/02/2020 by Gianni Hubbard MD at OR [facility] Right: Hip LUDY : ORTHOPAEDICS 11/25/2024 [id number] / / [id number] Lens Intraoc 17.5 - [id number] - [id number] Implanted:Qty: 1 on 03/23/2022 by Rad Morgan MD at OR [facility] Left: Eye BAUSCH & LOMB 10/11/2026 [id number] / [id number] / [id number] Lens Intraoc 18.0 - [id number] - [id number] Implanted:Qty: 1 on 03/30/2022 by Rad Morgan MD at OR [facility] Right: Eye BAUSCH & LOMB 01/11/2027 [id number] / [id number] / [id number] documented as of this encounter Visit Diagnoses Diagnosis Depression with anxiety Dysthymic disorder History of colonic polyps Personal history of [...] Power of Attor jus? No Care Teams Leather Currier Relationship Specialty Start Date End Date Zaire Urias MD 21 [place] [address] PCP - General Family Medicine 04/11/21 documented as of this encounter
--- OUTSIDE RECORDS SUMMARY | 2024-01-29 20:36 | External Medical Summary | Summary of Care ---
Author Name Unknown Organization [facility] Address [address] [place] [address] Phone [phone] Care Team Providers Care Product Safety Test Engineer Name Role Phone Kaiser Amanda MD Primary Care Provider [phone] Reason for Visit * Reason Comments Urinary Tract Infection Symptoms Abdominal Pain * Auth/Cert Specialty Diagnoses / Procedures Referred By Fauzia t Referred To Contact [place] [address] [place] [address] Phone: [phone] Emergency Medicine [facility] [address] [place] [address] Referral ID Status Reason Start Date Expiration Date Visits Re quested Visits Authorized [id number] Encounter Details Date Type Department Care Team (Late st Contact Info) Description 12/29/2023 2:21 PM EDT - 12/29/2023 5:40 PM EDT Emergency [facility] Emergency Department (GL) [address] [place] [address] James Pablo, DO [address] [place] [address] Complicated UTI (urinary tract infection) (Primary Dx) Discharge Disposition: Home - Self Care Allergies Active Allergy Reactions Criticality Noted Date Comments Cat Dander Itching 07/14/2016 documented as of this encounter (statuses as of 12/30/2023) Medications Medication Sig Dispensed Refills Start Date End Date Status Sales Layer Ultra 2 w/Device KitIndications:Type 2 diabetes mellitus with hemoglobin A1c goal of less than 7.5% (HCC) Testing blood sugars twice daily Dx: E11.9 1 Kit 11 06/06/2021 Active Sales Layer Delica Lancets 30GIndications:Type 2 diabetes mellitus with [...] for flares 60 g 2 01/19/2023 Active Sales Layer Verio In Vitro Strip (Glucose Blood)Indications:T ype [...] mouth every night at bedtime. 15 Tablet 10/29/2023 Active Finasteride 5 MG Oral Tablet [...] as of this encounter (statuses as of 12/30/2023) Active Problems Problem Noted Date Diagnosed Date [...] as of this encounter (statuses as of 12/30/2023) Resolved Problems Problem Noted Date Diagnosed Date [...] as of this encounter (statuses as of 12/30/2023) Immunizations Name Administration Dates Next Due COVID-19 mRNA, LNP-s, No Pre serve, 2-Dose Series (Alegría) 04/23/2021,08/09/2020,07/12/2020 Covid-19, Mrna, Lnp-s, Pf, B ivalent, [...] Sign Reading Time Taken Comments Blood Pressure 131/75 12/29/2023 5:00 PM EDT Pulse 70 12/29/2023 5:00 PM EDT Temperature 36 C (96.8 F) 12/29/2023 1:04 PM EDT Respiratory Rate 20 12/29/2023 5:00 PM EDT Oxygen Saturation 96% 12/29/2023 5:00 PM EDT Inhaled Oxygen Concentration - - Weight 68.5 kg (151 lb) 12/29/2023 1:04 PM EDT Height - - Body Mass Index 22.3 11/12/2023 12:14 PM EDT documented in this encounter Functional Status Functional Status Response Date of Assess ment Are you deaf or do you have serious difficulty h earing? No-[facility] [place] 11/07/2023 Are you blind or do you [...] No 11/07/2023 documented as of this encounter Discharge Instructions * Discharge Instructions* James Pablo DO - 12/29/2023 5:18 PM EDT You were seen in the emergency department for evaluation of UTI symptoms. Your urinalysis did show evidence of urinary tract infection. Your blood work did not show any concerning abnormalities. You were given a dose of ceftriaxone in the emergency department for treatment of UTI. Urine cultures were sent, and if this does show growth of bacteria not susceptible to prescribed antibiotics, you will be contacted and different antibiotics will be sent to your pharmacy. You were provided with a prescription for 10 days of cefpodoxime. Please complete entire course of antibiotics as prescribed even if symptoms improve or resolve. Please follow-up with your primary care physician this week for re-evaluation. See attached information for further recommendations and return precautions. documented in this encounter ED Notes * James Pablo DO - 12/29/2023 2:36 PM EDT HISTORY OF PRESENT ILLNESS Lewis Alarcon is a 73 year old male who presents to the ED for evaluation of Urinary Tract Infection Symptoms and Abdominal Pain. The patient was seen at 12/29/23 1428. Urinary Tract Infection Symptoms Associated symptoms: abdominal pain Abdominal Pain Review of Systems Gastrointestinal: Positive for abdominal pain. All other systems reviewed and are negative. This is a 73-year-old male presenting to the emergency department with UTI symptoms that began thismorning. Patient was reports urinary frequency and dysuria since this morning. Denies any fevers orchills. Denies any hematuria. Patient was had recurrent UTIs over the last few months. He was last treated with Keflex about 3 weeks ago. Denies any flank or abdominal pain. The patient's allergies, past history, and medications were reviewed. PHYSICAL EXAM Initial Vitals (see all): BP 118/69 | Pulse 96 | Resp 20 | Temp 96.8 | O2 99 %, Room Air, None | Weight 68.49 kg | Height 175.3 cm | BMI 22.3 kg/m2 Initial Pain Assessment (see all): 3 (mild pain)/10, Pressure, location: abdomen ([facility] Adult Scale 0-10) Physical Exam Vitals and nursing note reviewed. Constitutional: General: He is not in acute distress. Appearance: Normal appearance. He is normal weight. He is not ill-appearing or toxic-appearing. HENT: Head: Normocephalic and atraumatic. Nose: Nose normal. Mouth/Throat: Mouth: Mucous membranes are moist. Pharynx: Oropharynx is clear. Eyes: General: No scleral icterus. Conjunctiva/sclera: Conjunctivae normal. Cardiovascular: Rate and Rhythm: Normal rate and regular rhythm. Pulses: Normal pulses. Heart sounds: Normal heart sounds. No murmur heard. No friction rub. No gallop. Pulmonary: Effort: Pulmonary effort is normal. Breath sounds: Normal breath sounds. No wheezing, rhonchi or rales. Abdominal: General: Abdomen is flat. Bowel sounds are normal. Palpations: Abdomen is soft. Tenderness: There is no abdominal tenderness. There is no right CVA tenderness, left CVA tenderness, guarding or rebound. Musculoskeletal: General: Normal range of motion. Cervical back: Normal range of motion. Skin: General: Skin is warm and dry. Capillary Refill: Capillary refill takes less than 2 seconds. Neurological: General: No focal deficit present. Mental Status: He is alert and oriented to person, place, and time. Mental status is at baseline. Psychiatric: Mood and Affect: Mood normal. Behavior: Behavior normal. PROCEDURES AND TREATMENTS ED Orders | ED Results MEDICAL DECISION MAKING Nursing notes and vital signs were reviewed. ED Course as of 12/29/23 1720 Sat Dec 29, 2023 1558 Urine cultures from 11/29/2023 showed Klebsiella susceptible to all tested antibiotics accepted nitrofurantoin. Urine cultures performed 11/04/2023 showed Klebsiella resistant to nitrofurantoin,intermediate to Levaquin, and susceptible to all other antibiotics tested. [JH] ED Course User Index [JH] James Pablo, DO Differential Diagnoses Based on my history, physical exam, and evaluation, the differential includes, but is not limited, to the following diagnoses: Urinary tract infection, kidney stone, pyelonephritis, hydronephrosis. Amount and/or Complexity of Data Reviewed Labs: ordered. Risk Prescription drug management. This is a 73-year-old male presenting to emergency department with UTI symptoms. On arrival, patient was borderline tachycardic with a heart rate in the high 90s. Vital signs otherwise normal. Physical exam as above. Patient was given his noon dose of midodrine, and blood pressures improved into the 130s and heart rate was in the 70s. INR therapeutic on warfarin. CMP normal. CBC with mild leukocytosis, baseline anemia. Lipase and lactate normal. Urinalysis did show evidence of urinary tract infection. Urine cultures were sent. Previous urine cultures reviewed as detailed above. Patient was given a dose of ceftriaxone in the emergency department. I discussed findings and treatment plan with the patient and , and they voiced understanding and agreement. Strict return precautions were provided. Patient was provided with a prescription for a course of cefpodoxime. They were instructed to follow up with their primary care physician later this week for re-evaluation. Patient was discharged home. Patient ambulated out of the emergency department without difficulty. Patient remained stable while under my care in the emergency department. Clinical Impressions Complicated UTI (urinary tract infection) Disposition Discharged. The patient's condition at disposition was: stable. Discharge Medications Disp Refills Start End Cefpodoxime Proxetil 200 MG Oral Tablet 20 Tablet 0 12/30/2023 01/09/2024 Sig - Route: Take 1 Tablet by mouth in the morning and 1 Tablet before bedtime. Do all this for 10 days. Do not start before December 30, 2023. - Oral Class: ePrescribing Renewals Renewal requests to authorizing provider (James Pablo DO) <b>prohibited</b> James Pablo * Evelyn Turner RN - 12/29/2023 1:08 PM EDT Patient recently discharged from home health nurse about a week ago. Patient lives at home with and has had recurrent UTIs since September. Patient at times can be incontinent. Patient states that he knows when he has to go, but can not make it in time. Patient is having urinary frequency, dsyuria, and burning with urination. Patient also is having reoccurring abdominal pain. Patient rivera issues with constipation, but did have a BM this morning. Patient denies fever or chills at home. documented in this encounter Miscellaneous Notes * ED Care Transitions Nurse Note - Rica Zuñiga RN - 12/29/2023 5:38 PM EDT Pt discharge instructions, prescription and follow up reviewed with pt and pt verbalized understanding. Pt iv d/tito and pt left with his . * Pt Handout (on AVS) - James Pablo DO - 12/29/2023 5:17 PM EDT Images from the original note were not included. 82163 Urinary Tract Infections in Men Urinary tract [...] scarring or long-term infections. Last Reviewed Date: 07/13/202319995733-9392 [employer]. All rights reserved. This information is not intended as a substitute for professional medical care. Always follow your healthcare professional's instructions. * Pt Handout (on AVS) - James Pablo DO - 12/29/2023 5:17 PM EDT Images from the original note were not included. 97319 Understanding Urinary Tract Infections (UTIs) Most UTIs are caused by bacteria. But they may also be caused by viruses or fungi. Bacteria from the bowel are the most common source of infection. An infection may be more likely due to any of these: Having sex. During sex, bacteria can go from the penis, vagina, or rectum into the urethra. Bacteria outside the rectum getting into the urethra. Bacteria on the skin outside the rectum may go into the urethra. This is more common in people who were assigned female at . That's because, for them, the rectum and urethra are closer to each other than in people who were assigned male at . Wiping from front to back after using the toilet can help prevent germs from getting to the urethra. So can keeping the area clean. Blocked urine flow through the urinary tract. If urine sits too long, germs may start to grow out of control. A new sex partner within the last year. A history of recurrent UTIs and antibiotic use. Use of spermicide and diaphragm. Parts of the urinary tract The infection can occur in any part of the urinary tract. The kidneys. These organs filter blood. They remove wastes and extra water to make urine. The ureters. These tubes carry urine from the kidneys to the bladder. The bladder. This holds urine until you're ready to pee. The urethra. This tube carries urine from the bladder out of the body. It's shorter in people who were assigned female at . So, for them, bacteria can move through it more easily. The urethrais longer in people who were assigned male at . So a UTI is less likely to reach the bladder or kidneys for them. Last Reviewed Date: 07/13/202319997555-0534 [employer]. All rights reserved. This information is not intended as a substitute for professional medical care. Always follow your healthcare professional's instructions. documented in this encounter Plan of Treatment Upcoming Encounters Date Type Department Care Team (Late st Contact Info) Description 01/02/2024 7:00 AM EDT [address] [address] 01/02/2024 8:30 AM EDT Appointment Radiology, [address] [place] [address] 01/02/2024 9:30 AM EDT App[address], [address] [address] 01/02/2024 11:30 AM EDT Appointment Radiology, [address] [place] [address] 01/09/2024 1:00 PM EDT Anticoagulation Pharmacy, [place] [address] [place] [address] Pharmacist1, [facility] [place] [address] [place] [address] 01/21/2024 2:00 PM EDT Office Visit Endocrinology [address] [place] [address] Sakina Jones MD [address] [facility] [place] [address] 01/25/2024 3:30 PM EDT Office Visit [facility] [address] [place] [address] Laney Hogue MD [address] [place] [address] 02/21/2024 10:30 AM EDT Office Visit Urology Ale[facility] Rinaldi [place] [address] [place] [address] [place] [address] Nikolai Chaudhari MD [address] [place] [address] 02/25/2024 11:20 AM EDT Office Visit Family [facility], [place] [address] [place] [phone] Kaiser Amanda [facility] [place] [address] 03/05/2024 1:00 PM EDT Appointment Cardiac Studies, [address] [place] [address] 03/26/2024 8:00 AM EST Hospital Encounter OR [facility], Operating Room, [facility] - 4th Floor [address] [place] [address] John Gordillo MD [address] [place] [address] 03/26/2024 8:00 AM EST - 03/26/2024 8:46 AM EST Surgery OR [facility], Operating Room, [facility] - 4th Floor [address] [place] [address] John Gordillo MD [address] [place] [address] COLONOSCOPY FLEXIBLE PROXIMAL DIAGNOSTIC 04/01/2024 12:30 PM EST Office Visit [facility]ology, [facility] [address] [facility] [phone] Thelma Jamil PA-C [address] [facility] [address] 06/12/2024 2:00 PM EST Office Visit Cardiology, [place] [address] [facility] [place] [address] Clarissa Rapp [facility]C [address] [facility] [address] 10/21/2024 9:15 AM EDT Appointment Radiology, [facility] [address] [facility] [place] [address] 10/29/2024 9:45 AM EDT Office Visit Urology Rolo Colon [address] [place] [address] [place] [address] Bert Boogie Jr., MD [address] [place] [address] Pending Results Name Type Priority Associated Diagnoses Date /Time CULTURE, URINE, QUANTITATIVE Lab STAT 12/29/2023 3:11 PM EDT Scheduled Orders Name Type Priority Associated Diagnoses Orde r Schedule CULTURE, URINE, QUANTITATIVE Lab STAT Perform Now for 1 Occurrences starting 12/29/2023 until 12/29/2023 Scheduled Procedures Name Priority Associated Diagnoses Date/Ti [...] D LEVEL ONCE IN A LIFETIME-USE SMARTSET# [id number] Completed 07/26/2023, 02/26/2023, 01/23/2023, Additional history exists [...] this encounter Medical Devices Implanted Type Area Fur Sorter Device Identifier Shelf Expiration Date Model / Serial / Lot Cement Bone Simplex Hv & G - [id number] Implanted:Qty: 2 on 09/02/2020 by Gianni Hubbard MD at OR [facility] Right: Hip LUDY : ORTHOPAEDICS 08/11/2021 [id number] / / [id number] Spacer Ring Aclde Distal Lg 14 - [id number] Implanted:Qty: 1 on 09/02/2020 by Gianni Hubbard MD at OR [facility] Right: Hip LUDY : ORTHOPAEDICS 11/25/2024 [id number] / / Accolade C Cs 127 6 37/158 - [id number] Implanted:Qty: 1 on 09/02/2020 by Gianni Hubbard MD at OR [facility] Right: Hip LUDY : ORTHOPAEDICS 05/29/2023 [id number] / / [id number] Hip Cocr Lfit Head V40 28/+4 - [id number] Implanted:Qty: 1 on 09/02/2020 by Gianni Hubbard MD at OR [facility] Right: Hip LUDY : ORTHOPAEDICS 11/15/2024 [id number] / / [id number] Hip Head Bipol Uhr Uni 28x52 - [id number] Implanted:Qty: 1 on 09/02/2020 by Gianni Hubbard MD at OR [facility] Right: Hip LUDY : ORTHOPAEDICS 11/25/2024 [id number] / / [id number] Lens Intraoc 17.5 - [id number] - [id number] Implanted:Qty: 1 on 03/23/2022 by Rad Morgan MD at OR [facility] Left: Eye BAUSCH & LOMB 10/11/2026 [id number] / [id number] / [id number] Lens Intraoc 18.0 - [id number] - [id number] Implanted:Qty: 1 on 03/30/2022 by Rad Morgan MD at OR [facility] Right: Eye BAUSCH & LOMB 01/11/2027 [id number] / [id number] / [id number] documented as of this encounter Procedures Procedure Name Priority Date/Time Associated Diagnosis Comments MICROSCOPIC EXAM, URINE STAT 12/29/2023 3:11 PM EDT URINALYSIS, REFLEX TO MICROSCOPIC STAT 12/29/2023 3:11 PM EDT DIFFERENTIAL, AUTOMATED STAT 12/29/2023 2:42 PM EDT COMPREHENSIVE METABOLIC PANEL STAT 12/29/2023 2:42 PM EDT CBC STAT 12/29/2023 2:42 PM EDT PT INR STAT 12/29/2023 2:42 PM EDT LIPASE STAT 12/29/2023 2:42 PM EDT LACTATE Routine 12/29/2023 2:42 PM EDT CBC STAT 12/29/2023 2:42 PM EDT GLUCOSE METER, POINT OF CARE MARVA 12/29/2023 1:10 PM EDT documented in this encounter Results * (ABNORMAL) MICROSCOPIC EXAM, URINE (12/29/2023 3:11 PM EDT) RBC, Urine 50+(A) 0 - 2 /HPF 12/29/2023 3:42 PM EDT LABORATORY [facility] WBC, Urine 50+(A) 0 - 2 /HPF 12/29/2023 3:42 PM EDT LABORATORY GL Bacteria, Urine >200(A) 0 - 25 /HPF 12/29/2023 3:42 PM EDT LABORATORY GL Urine Non-blood Collection / Unknown 12/29/2023 3:11 PM EDT 12/29/2023 3:17 PM EDT James Pablo DO LAB URINE ORDERABLES LABORATORY [address] [address] * (ABNORMAL) URINALYSIS, REFLEX TO MICROSCOPIC (12/29/2023 3:11 PM EDT) Color, Urine Yellow Light Yellow, Yellow, Dark Yellow 12/29/2023 3:38 PM EDT LABORATORY GL Clarity, Urine Clear Clear 12/29/2023 3:38 PM EDT LABORATORY GL Glucose, Urine Negative Negative mg/dL 12/29/2023 3:38 PM EDT LABORATORY [facility] Bilirubin, Urine Negative Negative 12/29/2023 3:38 PM EDT LABORATORY [facility] Ketone, Urine Negative Negative mg/dL 12/29/2023 3:38 PM EDT LABORATORY GL Specific [place], Urine 1.015 1.003 - 1.030 12/29/2023 3:38 PM EDT LABORATORY GL Blood, Urine Large(A) Negative 12/29/2023 3:38 PM EDT LABORATORY GL pH, Urine 6.0 5.0 - 7.5 Units 12/29/2023 3:38 PM EDT LABORATORY GL Protein, Urine 100(A) Negative mg/dL 12/29/2023 3:38 PM EDT LABORATORY GL Urobilinogen, Urine 0.2 0.2, 1.0 mg/dL 12/29/2023 3:38 PM EDT LABORATORY GL Nitrite, Urine Negative Negative 12/29/2023 3:38 PM EDT LABORATORY GL Esterase, Urine Large(A) Negative 12/29/2023 3:38 PM EDT LABORATORY [facility] Urine Non-blood Collection / Unknown 12/29/2023 3:11 PM EDT 12/29/2023 3:17 PM EDT James Pablo DO LAB URINE ORDERABLES Performing Organization Address [facility] Co de Phone Number LABORATORY [address] [address] * (ABNORMAL) PT INR (12/29/2023 2:42 PM EDT) Prothrombin Time 31.1(H) 11.6 - 15.2 seconds 12/29/2023 3:19 PM EDT LABORATORY [facility] INR 3.0(H) 0.8 - 1.2 12/29/2023 3:19 PM EDT LABORATORY [facility] Blood Venous blood specimen / Unknown Venipuncture / Unknown 12/29/2023 2:42 PM EDT 12/29/2023 2:49 PM EDT Narrative LABORATORY [facility] - 12/29/2023 3:19 PM EDT Warfarin Therapy INR: 2.0-3.0 conventional anticoagulation INR: 2.5-3.5 high intensity anticoagulation James Pablo DO LAB BLOOD ORDERABLES Performing Organization Address [facility] Co de Phone Number LABORATORY [address], [place] [phone] * (ABNORMAL) DIFFERENTIAL, AUTOMATED (12/29/2023 2:42 PM EDT) [facility] WBC 13.22(H) 4.00 - 10.80 K/uL 12/29/2023 2:52 PM EDT LABORATORY [facility] Neutrophils % 71.7 40.0 - 75.0 % 12/29/2023 2:52 PM EDT LABORATORY [facility] Lymphocytes % 18.6 18.0 - 42.0 % 12/29/2023 2:52 PM EDT LABORATORY [facility] Monocytes % 7.3 1.0 - 11.0 % 12/29/2023 2:52 PM EDT LABORATORY [facility] Eosinophils % 1.4 0.0 - 6.0 % 12/29/2023 2:52 PM EDT LABORATORY [facility] Basophils % 0.3 0.0 - 2.0 % 12/29/2023 2:52 PM EDT LABORATORY [facility] Immature Granulocytes % 0.7 0.0 - 2.0 % 12/29/2023 2:52 PM EDT LABORATORY [facility] Absolute Neutrophils 9.47(H) 1.80 - 7.70 K/uL 12/29/2023 2:52 PM EDT LABORATORY [facility] Absolute Lymphocytes 2.46 1.00 - 4.80 K/ul 12/29/2023 2:52 PM EDT LABORATORY [facility] Absolute Monocytes 0.97 0.00 - 1.10 K/uL 12/29/2023 2:52 PM EDT LABORATORY [facility] Absolute Eosinophils 0.19 0.00 - 0.70 K/uL 12/29/2023 2:52 PM EDT LABORATORY [facility] Absolute Basophils 0.04 0.00 - 0.20 K/uL 12/29/2023 2:52 PM EDT LABORATORY [facility] Absolute Immature Granulocytes 0.09 0.00 - 0.20 K/uL 12/29/2023 2:52 PM EDT LABORATORY [facility] Blood Venous blood specimen / Unknown Venipuncture / Unknown 12/29/2023 2:42 PM EDT 12/29/2023 2:49 PM EDT James D Hark DO LAB BLOOD ORDERABLES LABORATORY [facility] [address] [place], [place] [id number] * (ABNORMAL) CBC (12/29/2023 2:42 PM EDT) WBC 13.22(H) 4.00 - 10.80 K/uL 12/29/2023 2:52 PM EDT LABORATORY [facility] RBC 4.43 4.50 - 5.25 M/uL 12/29/2023 2:52 PM EDT LABORATORY [facility] HGB 13.2(L) 14.0 - 16.8 g/dL 12/29/2023 2:52 PM EDT LABORATORY [facility] HCT 40.3 40.0 - 48.4 % 12/29/2023 2:52 PM EDT LABORATORY [facility] MCV 91.0 82.0 - 99.5 fL 12/29/2023 2:52 PM EDT LABORATORY [facility] MCH 29.8 27.0 - 34.0 pg 12/29/2023 2:52 PM EDT LABORATORY [facility] MCHC 32.8 32.0 - 36.0 g/dL 12/29/2023 2:52 PM EDT LABORATORY [facility] RDW 14.7 11.5 - 15.5 % 12/29/2023 2:52 PM EDT LABORATORY [facility] PLT 252 140 - 400 K/uL 12/29/2023 2:52 PM EDT LABORATORY [facility] MPV 8.6 6.6 - 11.1 fL 12/29/2023 2:52 PM EDT LABORATORY [facility] nRBCs 0 <=0 /100 WBCs 12/29/2023 2:52 PM EDT LABORATORY [facility] Blood Venous blood specimen / Unknown Venipuncture / Unknown 12/29/2023 2:42 PM EDT 12/29/2023 2:49 PM EDT James Macdonaldheidi DO LAB BLOOD ORDERABLES LABORATORY [address] [address] * LIPASE (12/29/2023 2:42 PM EDT) [facility] Lipase 13 13 - 60 U/L 12/29/2023 3:08 PM EDT LABORATORY GL Blood Venous blood specimen / Unknown Venipuncture / Unknown 12/29/2023 2:42 PM EDT 12/29/2023 2:49 PM EDT James [employer] DO LAB BLOOD ORDERABLES Performing Organization Address City/[facility]/ZIP Co de Phone Number LABORATORY [address] [address] * LACTATE (12/29/2023 2:42 PM EDT) [facility] Lactate 2.0 0.4 - 2.0 mmol/L 12/29/2023 3:04 PM EDT LABORATORY [facility] Blood Venous blood specimen / Unknown Venipuncture / Unknown 12/29/2023 2:42 PM EDT 12/29/2023 2:49 PM EDT James Castillo Samy DO LAB BLOOD ORDERABLES Performing Organization Address City/[facility]/ZIP Co de Phone Number LABORATORY [address] [phone] * COMPREHENSIVE METABOLIC PANEL (12/29/2023 2:42 PM EDT) [facility] BUN 17 6 - 20 mg/dL 12/29/2023 3:08 PM EDT LABORATORY GL Creatinine 1.0 0.6 - 1.2 mg/dL 12/29/2023 3:08 PM EDT LABORATORY [facility] Estimated Glomerular Filtration Rate 76 >=60 mL/min 12/29/2023 3:08 PM EDT LABORATORY [facility] Comment:eGFR is calculated b ased on the CKD-EPI 2020 equation. Sodium 137 135 - 146 mmol/L 12/29/2023 3:08 PM EDT LABORATORY [facility] Potassium 4.4 3.5 - 5.1 mmol/L 12/29/2023 3:08 PM EDT LABORATORY [facility] Chloride 103 98 - 107 mmol/L 12/29/2023 3:08 PM EDT LABORATORY [facility] CO2 25 22 - 32 mmol/L 12/29/2023 3:08 PM EDT LABORATORY [facility] Anion Gap 9 7 - 15 mmol/L 12/29/2023 3:08 PM EDT LABORATORY [facility] Glucose 87 70 - 120 mg/dL 12/29/2023 3:08 PM EDT LABORATORY [facility] Albumin 3.8 3.8 - 5.0 g/dL 12/29/2023 3:08 PM EDT [facility] AST 18 10 - 50 U/L 12/29/2023 3:08 PM EDT [facility] Alkaline Phosphatase 59 35 - 130 U/L 12/29/2023 3:08 PM EDT [facility] Bilirubin, Total 0.5 <=1.2 mg/dL 12/29/2023 3:08 PM EDT [facility] Calcium 9.2 8.4 - 10.2 mg/dL 12/29/2023 3:08 PM EDT [facility] Protein 6.7 6.0 - 8.3 g/dL 12/29/2023 3:08 PM EDT [facility] ALT 14 10 - 50 U/L 12/29/2023 3:08 PM EDT [facility] Blood Venous blood specimen / Unknown Venipuncture / Unknown 12/29/2023 2:42 PM EDT 12/29/2023 2:49 PM EDT James Pablo DO LAB BLOOD ORDERABLES Performing Organization Address City/[facility]/ZIP Co de Phone Number LABORATORY [address] [address] * GLUCOSE METER, POINT OF CARE (12/29/2023 1:10 PM EDT) [facility] Signature Glucose Meter 86 70 - 120 mg/dL 12/29/2023 1:12 PM EDT [facility] Blood Whole blood specimen / Unknown 12/29/2023 1:10 PM EDT 12/29/2023 1:12 PM EDT No Physician Data Unknown LAB POINT OF C ARE TEST DOCKED DEVICE UNSOLICITED RESULTS Performing Organization Address City/[facility]/ZIP Co de Phone Number [facility] [address] [place] [address] documented in this encounter Visit Diagnoses Diagnosis Complicated UTI (urinary tract infection)- Primary Urinary tract infection, site not specified History of colonic polyps Personal history of colonic polyps Abdominal pain, generalized Change in bowel habits Other symptoms involving digestive system Early satiety Weight loss Loss of weight Iron deficiency anemia, unspecified iron deficiency anemia type documented in this encounter Administered Medications Inactive Administered Medications - up to 3 most recent administrations Medication Order MAR Action Action Date Dose Rate Site cefTRIAXone in dextrose (Rocephin) IVPB 1 g IV Piggyback, 1 g, ONCE, 1 dose, On 12/29/23 at 1630, Administer over 30 Minutes New Bag 12/29/2023 4:10 PM EDT 1 g 100 mL/hr midodrine (Proamatine) tab 5 mg 5 mg, Oral, ONCE, On 12/29/23 at 1515, For 1 dose Given 12/29/2023 3:18 PM EDT 5 mg documented in this encounter Active and Recently Administered Medications Times are shown in EDT. Scheduled Medication Order 12/27/2023 12/28/2023 12/29/2023 cefTRIAXone in dextrose (Rocephin) IVPB 1 g (COMPLETED) IV Piggyback, 1 g, ONCE, 1 dose, On 12/29/23 at 1630, Administer over 30 Minutes 1610 (New Bag - Prov ider: Rica Zuñiga RN)1700 (Finish Infusion - Provider: Rica Zuñgia RN) midodrine (Proamatine) tab 5 mg (COMPLETED) 5 mg, Oral, ONCE, On 12/29/23 at 1515, For 1 dose 1518 (Given - Provid er: Rica Zuñiga RN) documented in this encounter Additional Health [...] Power of Attor jus? No Care Teams Product Safety Test Engineer Relationship Specialty Start Date End Date Kaiser Amanda MD [address] [address] PCP - General Family Medicine 04/11/21 documented as of this encounter"
--- OUTSIDE RECORDS SUMMARY | 2024-01-29 20:36 | External Medical Summary | Summary of Care ---
Author Name Unknown Organization [facility] Address [address] [facility] [place] [address] Phone [phone] Care Team Providers Care Log Stacker Operator Name Role Phone Kaiser Amanda MD Primary Care Provider [phone] Reason for Visit * Reason Comments Dosage Adjustment In Person (Anticoag Cl inic) Encounter Details Date Type Department Care Team (Late st Contact Info) Description 12/19/2023 1:00 PM EDT Anticoagulation Pharmacy, [address] [place] [address] Pharmacist1, [address] [place] [address] 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*; History of pulmonary embolism; History of DVT (deep vein thrombosis) Allergies Active Allergy Reactions Criticality Noted Date Comments Cat Dander Itching 07/14/2016 documented as of this encounter (statuses as of 12/19/2023) Medications Medication Sig Dispensed Refills Start Date End Date Status HabboTouch Ultra 2 w/Device KitIndications:Type 2 diabetes mellitus with hemoglobin A1c goal of less than 7.5% ([facility]) Testing blood sugars twice daily [...] hemoglobin A1c goal of less than 7.5% ([facility]) TAKE 1 TABLET BY MOUTH DAILY. TAKE 30 MINUTES BEFORE A MEAL 90 Tablet 3 12/26/2022 Active DULoxetine HCl 60 MG Oral Capsule Delayed Release Particles (Cymbalta)Stephanietio ns:Depression with anxiety Take 1 Capsule by mouth in the morning. 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 No-JAMUL 11/07/2023 Are you blind or do you [...] of this encounter Progress Notes * Jessi Collier, [facility] - 12/19/2023 12:51 PM EDT Images from the original note were not included. Medication Therapy Disease Management - Anticoagulation Patient: Lewis Alarcon | : 1950 Subjective Patient-Reported Symptoms: Patient Findings Positives: Emergency department visit ([facility] ER on 12/08 due to urinary frequency), Change in medications (started on midodrine) Negatives: Signs/symptoms of thrombosis, Signs/symptoms of bleeding, Change in health, Change in alcohol use, Change in activity, Upcoming invasive procedure, Missed doses, Extra doses, Change in diet/appetite, Bruising Objective Current Warfarin Dose As of 12/19/2023 Warfarin maintenance plan: 5 mg (5 mg x 1) every day INR Result As of 12/19/2023 INR goal: 2.0-3.0 INR used for dosin.1 (12/19/2023) Assessment & Plan Warfarin Plan As of 12/19/2023 Full warfarin instructions: 12/18: Hold; Otherwise 2.5 mg every Sun; 5 mg all other days Next INR check: 01/09/2024 Repeat PT/INR in 3 week(s) Weekly dose: decreased by 7.1% Additional Dosing Information: Description Home Phleb: DENIS I spent a total of 10-19 minutes (exact time 14 mins) on the date of service in preparation, delivery, and documentation of the care provided to Lewis Alarcon excluding any time spent in the performance of separately billed services or time spent by another provider/QHP. Jessi Collier [facility] Clinical Pharmacist 12/19/2023, 12:51 PM documented in this encounter Plan of Treatment Upcoming Encounters Date Type Department Care Team (Late st Contact Info) Description 01/02/2024 7:00 AM EDT Appointment Radiology, [address] [address] 01/02/2024 8:30 AM EDT Appointment Radiology, [address] [address] 01/02/2024 9:30 AM EDT Appointment Radiology, [address] [address] 01/02/2024 11:30 AM EDT Appointment Radiology, [address] [address] 01/09/2024 1:00 PM EDT Anticoagulation Pharmacy, [address] [address] Pharmacist1, [address] [address] 01/21/2024 2:00 PM EDT Office Visit Endocrinology [address] [place] [phone] Sakina Jones MD [address] [facility] [place] [address] 01/25/2024 3:30 PM EDT Office Visit [facility] Surgery [facility] [address] [place] [address] Laney Hogue MD [address] [facility] [place] [address] 02/21/2024 10:30 AM EDT Office Visit Urology Aleida Rinaldi R[address] [place] [address] Nikolai Chaudhari MD [address] [place] [address] 02/25/2024 11:20 AM EDT Office Visit [facility] [address] [facility] [place] [phone] Kaiser Amanda MD [address] [facility] [place] [address] 03/05/2024 1:00 PM EDT Appointment Cardiac Studies, [facility] [address] [facility] [place] [address] 03/26/2024 8:00 AM EST Hospital Encounter OR [facility], Operating Room, [facility] - 4th Floor [address] [place] [address] John Gordillo MD [address] [facility] [place] [address] 03/26/2024 8:00 AM EST - 03/26/2024 8:46 AM EST Surgery OR [facility], Operating Room, [facility] - 4th Floor [address] [place] [address] John Gordillo MD [address] [place] [address] COLONOSCOPY FLEXIBLE PROXIMAL DIAGNOSTIC 04/01/2024 12:30 PM EST Office Visit Gastroenterology, [facility] [place] [address] [place] [address] Thelma Jamil PA-C [address] [facility] [place] [address] 06/12/2024 2:00 PM EST Office Visit Cardiology, [place] [address] [place] [address] Clarissa Rapp PA-C [address] [facility] [place] [address] 10/21/2024 9:15 AM EDT Appointment Radiology, [facility] [address] [facility] [place] [address] 10/29/2024 9:45 AM EDT Office Visit Urology [place] [address] [place] [address] Keagan Thayer, Bert Giron MD [address] [place] [address] Scheduled Procedures Name Priority Associated Diagnoses Date/Ti [...] D LEVEL ONCE IN A LIFETIME-USE SMARTSET# [id number] Completed 07/26/2023, 02/26/2023, 01/23/2023, Additional history exists [...] this encounter Medical Devices Implanted Type Area Attorney Recruiter Device Identifier Shelf Expiration Date Model / Serial / Lot Cement Bone Simplex Hv & G - [id number] Implanted:Qty: 2 on 09/02/2020 by Gianni Hubbard MD at OR [facility] Right: Hip LUDY : ORTHOPAEDICS 08/11/2021 [id number] / / [id number] Spacer Ring Aclde Distal Lg 14 - [id number] Implanted:Qty: 1 on 09/02/2020 by Gianni Hubbard MD at OR [facility] Right: Hip LUD[employer] : ORTHOPAEDICS 11/25/2024 [id number] / / Accolade C Cs 127 6 37/158 - [id number] Implanted:Qty: 1 on 09/02/2020 by Gianni Hubbard MD at OR [facility] Right: Hip LUD[employer] : ORTHOPAEDICS 05/29/2023 [id number] / / [id number] Hip Cocr Lfit Head V40 28/+4 - [id number] Implanted:Qty: 1 on 09/02/2020 by Gianni Hubbard MD at OR [facility] Right: Hip LUDY : ORTHOPAEDICS 11/15/2024 [id number] / / [id number] Hip Head Bipol Uhr Uni 28x52 - [id number] Implanted:Qty: 1 on 09/02/2020 by Gianni Hubbard MD at OR [facility] Right: Hip LUDY : ORTHOPAEDICS 11/25/2024 [id number] / / [id number] Lens Intraoc 17.5 - [id number] - [id number] Implanted:Qty: 1 on 03/23/2022 by Rad Morgan MD at OR [facility] Left: Eye [employer] & [employer]OMB 10/11/2026 [id number] / [id number] / [id number] Lens Intraoc 18.0 - [id number] - [id number] Implanted:Qty: 1 on 03/30/2022 by Rad Morgan MD at [facility] Right: Eye [employer]OMB 01/11/2027 [id number] / [id number] / [id number] documented as of this encounter Procedures Procedure Name Priority Date/Time Associated Diagnosis Comments INR FINGERSTICK, POINT OF CARE STAT 12/19/2023 12:59 PM EDT History of pulmonary embolism History of DVT (deep vein thrombosis) 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 documented in this encounter Results * INR FINGERSTICK, POINT OF CARE (12/19/2023 12:59 PM EDT) Fingerstick INR 4.1 INR 2:33 PM EDT LABORATORY [facility] 45-01 Blood 12/19/2023 12:5 9 PM EDT 12/19/2023 2:33 PM EDT Narrative LAB[facility]ORY [facility] 45-01 - 12/19/2023 2:33 PM EDT Therapeutic ranges for non-operative patients: Prophylaxsis/treatment of DVT: (Range:2.0-3.0) Treatment of pulmonary embolism:(Range:2.0-3.0) Prevention of systemic embolism from: -tissue heart valves -acute myocardial infarction -valvular heart disease -atrial fibrillation (Range: 2.0-3.0) Mechanical prosthetic valves: (Range: 2.5-3.5) Jessi Collier [facility] LAB POINT OF CARE T EST DOCKED DEVICE UNSOLICITED RESULTS LABORATORY [facility]US[facility]ennifer -[address] [place] [address] documented in this encounter Visit Diagnoses Diagnosis 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- Primary Encounter for therapeutic drug monitoring History of pulmonary embolism Personal history of pulmonary embolism History of [...] Power of Attor jus? No Care Teams Log Stacker Operator Relationship Specialty Start Date End Date Kaiser Amanda MD [address] [address] PCP - General Family Medicine 04/11/21 documented as of this encounter"
--- OUTSIDE RECORDS SUMMARY | 2024-01-29 20:36 | External Medical Summary ---
Author Name Unknown Address Unknown Organization K1F:LABORATORY [facility] - [address] [place] [address] Laboratory Report Ordering Provider Test Date Status REBEKAH PARHAM 12/29/2023 15:11:37 Final Observation Date Value Abnormality Reference (Units ) Status Color of Urine by Auto 12/29/2023 15:11:37 Yellow Light Yellow, Yellow, Dark Yellow Final Clarity, Urine 12/29/2023 15:11:37 Clear Clear Final Glucose [Mass/volume] in Urine by Automated test strip 12/29/2023 15:11:37 Negative Negative (mg/dL) Final Bilirubin.total [Presence] in Urine by Automated test strip 12/29/2023 15:11:37 Negative Negative Final Ketones [Mass/volume] in Urine by Automated test strip 12/29/2023 15:11:37 Negative Negative (mg/dL) Final Specific gravity, Urine 12/29/2023 15:11:37 1.015 1.003-1.030 Final Hemoglobin [Presence] in Urine by Automated test strip 12/29/2023 15:11:37 Large Abnormal Negative Final pH, Urine 12/29/2023 15:11:37 6.0 5.0-7.5 (Units) Final Protein [Mass/volume] in Urine by Automated test strip 12/29/2023 15:11:37 100 Abnormal Negative (mg/dL) Final Urobilinogen [Mass/volume] in Urine by Automated test strip 12/29/2023 15:11:37 0.2 0.2, 1.0 (mg/dL) Final Nitrite [Presence] in Urine by Automated test strip 12/29/2023 15:11:37 Negative Negative Final Leukocyte esterase [Presence] in Urine by Automated test strip 12/29/2023 15:11:37 Large Abnormal Negative Final Performing Location LABORATORY [facility] - [address] [facility] [address] [place] [address]
--- OUTSIDE RECORDS SUMMARY | 2024-01-29 20:36 | External Medical Summary ---
Author Name Unknown Address Unknown Organization K1F:[facility] - [address] [place] [address] Laboratory Report Ordering Provider Test Date Status DIONEREBEKAH 12/29/2023 14:42:19 Final Observation Date Value Abnormality Reference (Units ) Status Lactic Acid 12/29/2023 14:42:19 2.0 0.4-2.0 (mmol/L) Final Performing Location [facility] - [address] [place] [address]
--- OUTSIDE RECORDS SUMMARY | 2024-01-29 20:36 | External Medical Summary ---
Author Name Unknown Address Unknown Organization K1F:LABORATORY [facility] - [address] [place] [address] Laboratory Report Ordering Provider Test Date Status REBEKAH PARHAM 12/29/2023 15:11:37 Final Observation Date Value Abnormality Reference (Units ) Status RBC, Urine 12/29/2023 15:11:37 50+ Abnormal 0-2 (/HPF) Final WBC, Urine 12/29/2023 15:11:37 50+ Abnormal 0-2 (/HPF) Final Bacteria [#/area] in Urine sediment by Microscopy high power field 12/29/2023 15:11:37 >200 Abnormal 0-25 (/HPF) Final Performing Location LABORATORY [facility] - [address] [place] [address]
--- OUTSIDE RECORDS SUMMARY | 2024-01-29 20:36 | External Medical Summary ---
Author Name Unknown Address Unknown Organization K1F:LABORATORY [facility] - [address] [place] [address] Laboratory Report Ordering Provider Test Date Status REBEKAH PARHAM 12/29/2023 14:42:19 Final Observation Date Value Abnormality Reference (Units ) Status WBC, Total 12/29/2023 14:42:19 13.22 Above high normal 4.00-10.80 (K/uL) Final RBC 12/29/2023 14:42:19 4.43 4.50-5.25 (M/uL) Final Hemoglobin 12/29/2023 14:42:19 13.2 Below low normal 14.0-16.8 (g/dL) Final HCT 12/29/2023 14:42:19 40.3 40.0-48.4 (%) Final MCV 12/29/2023 14:42:19 91.0 82.0-99.5 (fL) Final MCH 12/29/2023 14:42:19 29.8 27.0-34.0 (pg) Final MCHC 12/29/2023 14:42:19 32.8 32.0-36.0 (g/dL) Final RDW 12/29/2023 14:42:19 14.7 11.5-15.5 (%) Final Platelets 12/29/2023 14:42:19 252 140-400 (K/uL) Final MPV 12/29/2023 14:42:19 8.6 6.6-11.1 (fL) Final Nucleated erythrocytes/100 leukocytes [Ratio] in Blood by Automated count 12/29/2023 14:42:19 0 <=0 (/100 WBCs) Final Performing Location LABORATORY [facility] - [address] [place] [address]
--- OUTSIDE RECORDS SUMMARY | 2024-01-29 20:36 | External Medical Summary ---
Author Name Unknown Address Unknown Organization K1F:[facility] - [address] [place] [address] Laboratory Report Ordering Provider Test Date Status REBEKAH PARHAM 12/29/2023 14:42:19 Final Observation Date Value Abnormality Reference (Units ) Status BUN 12/29/2023 14:42:19 17 6-20 (mg/dL) Final Creatinine 12/29/2023 14:42:19 1.0 0.6-1.2 (mg/dL) Final Glomerular filtration rate/1.73 sq M.predicted [Volume Rate/Area] in Serum, Plasma or Blood by Creatinine-based formula (CKD-EPI) 12/29/2023 14:42:19 76 >=60 (mL/min) Final eGFR is calculated based on the CKD-EPI 2020 equation. Sodium 12/29/2023 14:42:19 137 135-146 (m mol/L) Final Potassium 12/29/2023 14:42:19 4.4 3.5-5.1 (m mol/L) Final Cl 12/29/2023 14:42:19 103 98-107 (mm ol/L) Final CO2 12/29/2023 14:42:19 25 22-32 (mmo l/L) Final Anion gap 12/29/2023 14:42:19 9 7-15 (mmol /L) Final Glucose 12/29/2023 14:42:19 87 70-120 (mg /dL) Final Albumin 12/29/2023 14:42:19 3.8 3.8-5.0 (g /dL) Final AST (Aspartate aminotransferase) 12/29/2023 14:42:19 18 10-50 (U/L) Final Alk Phos 12/29/2023 14:42:19 59 35-130 (U/ L) Final Bilirubin, Total 12/29/2023 14:42:19 0.5 <=1 .2 (mg/dL) Final Calcium 12/29/2023 14:42:19 9.2 8.4-10.2 ( mg/dL) Final Protein 12/29/2023 14:42:19 6.7 6.0-8.3 (g /dL) Final ALT (Alanine aminotransferase) 12/29/2023 14:42:19 14 10-50 (U/L) Final Performing Location LABORATORY [facility] - [address] [place], [place] [address] [place] [address]
--- OUTSIDE RECORDS SUMMARY | 2024-01-29 20:36 | External Medical Summary ---
Author Name Unknown Address Unknown Organization K1F:LABORATORY [facility] - [address] [place] [address] Laboratory Report Ordering Provider Test Date Status REBEKAH PARHAM 12/29/2023 14:42:19 Final Warfarin Therapy
INR: 2 .0-3.0 conventional anticoagulation
INR: 2.5- 3.5 high intensity anticoagulation Observation Date Value Abnormality Reference (Units ) Status PT 12/29/2023 14:42:19 31.1 Above high normal 11 .6-15.2 (seconds) Final INR 12/29/2023 14:42:19 3.0 Above high normal 0. 8-1.2 Final Performing Location LAB[facility] - [address] [place] [address]
--- OUTSIDE RECORDS SUMMARY | 2024-01-29 20:36 | External Medical Summary ---
Author Name Unknown Address Unknown Organization : Laboratory Report Ordering Provider Test Date Status NO,UNKNOWN 12/29/2023 13:10:52 Final Observation Date Value Abnormality Reference (Units ) Status Glucose Point of Care 12/29/2023 13:10:52 86 70-120 (mg/dL) Final Performing Location
--- OUTSIDE RECORDS SUMMARY | 2024-01-29 20:36 | External Medical Summary | Summary of Care ---
Author Name Unknown Organization [facility] Address [address] [address] Phone [phone] Care Team Providers Care Refrigeration Engineering Teacher Name Role Phone Kaiser Amanda MD Primary Care Provider [phone] [phone] Reason for Visit * Reason Onset Date Comments Patient Assistance Program 12/13/2023 [facility] Encounter Details Date Type Department Care Team (Late st Contact Info) Description 12/13[facility]2023 [facility] [place] [address] Kaiser Amanda MD [facility] [address] Patient Assistance Program ([facility]) Allergies Active Allergy Reactions Criticality Noted Date Comments Cat Dander Itching 07/14/2016 documented as of this encounter (statuses as of 12/13/2023) Medications Medication Sig Dispensed Refills Start Date End Date Status Refrek IncTouch Ultra 2 w/Device KitIndications:Type 2 diabetes mellitus with hemoglobin A1c goal of less than 7.5% ([facility]) Testing blood sugars twice daily [...] mg) before bedtime. 10 Capsule 04/18/2022 Active Vitamin D 25 MCG (1000 UT) Oral [...] hemoglobin A1c goal of less than 7.5% ([facility]) TAKE 1 TABLET BY MOUTH [...] for flares 60 g 2 01/19/2023 Active Sincere Moeller In Vitro Strip (Glucose Blood)Indications:T ype [...] at bedtime.. 270 Tablet 3 12/11/2023 Active documented as of this encounter (statuses as of 12/13/2023) Active Problems Problem Noted Date Diagnosed Date [...] as of this encounter (statuses as of 12/13/2023) Resolved Problems Problem Noted Date Diagnosed Date [...] as of this encounter (statuses as of 12/13/2023) Immunizations Name Administration Dates Next Due COVID-19 [...] do you have serious difficulty h earing? No-[place] 11/07/2023 Are you blind or do you [...] encounter Miscellaneous Notes * Telephone Encounter - Becky Vargas OSA - 12/13/2023 9:57 AM EDT Pt's Ciara calling to let office know that she contacted [employer] and it was their mistake for shipping the medication. They did have documentation that the office called on 08/17/23 to discontinue the medication for the patient. * Telephone Encounter - Azalia Joyce LPN - 12/13/2023 9:31 AM EDT Received 4 boxes of Trulicity from pt assistance. Pt is marked as discontinued on medlist. Call placed to pt and I spoke to patient and his . Both say the Trulicity has been stopped. They will contact pt assistance to have medication stopped. documented in this encounter Plan of Treatment Upcoming Encounters Date Type Department Care Team (Late st Contact Info) Description 12/19/2023 11:00 AM EDT Office Visit Gastroenterology, Rolo Calabrese [address] [place] [address] [place] [phone] Thelma Jamil PA-C [address] [place] [address] [place] [address] 12/19/2023 1:00 PM EDT Anticoagulation Pharmacy, [address] [place] [address] Pharmacist1, [facility] [address] [place] [address] 01/21/2024 2:00 PM EDT Office Visit Endocrinology Alyssa Ramirez [address] [place] [address] Sakina Jones MD 100 [facility] [place] [id number] 01/25/2024 3:30 PM EDT Office Visit MOHS Surgery [facility] [address] [place] [address] Laney Hogue MD 200 [place] [address] 02/21/2024 10:30 AM EDT Office Visit Urology Aleida Bearden [place] 27 [facility] 270 [place] [address] Nikolai Chaudhari MD 27 [facility] [place] [address] 02/25/2024 11:20 AM EDT Office Visit [facility] [phone] Kaiser Amanda MD 21 [place] [address] 03/05/2024 1:00 PM EDT Appointment Cardiac Studies, [facility] 400 [facility] [place]INTER[place]UST[place] [address] 06/12/2024 2:00 PM EST Office Visit Cardiology, [address] [address] Clarissa Rapp PA-C 400 [facility] [place] [address] 10/21/2024 9:15 AM EDT Appointment Radiology, [facility] [place] [address] 10/29/2024 9:45 AM EDT Office Visit Urology Aleida Rolo Bearden [address] [place] 270 [place] [address] Bert Boogie Jr., MD [address] [place] [address] Scheduled Procedures Name Priority Associated Diagnoses Date/Ti me COLONOSCOPY FLEXIBLE PROXIMA L DIAGNOSTIC Recall History of colonic polyps Health Maintenance Due Date Last Done Comments Cologuard 11/28/1995 Fecal Occult Blood Test 11/28/1995 Sigmoidoscopy 11/28/1995 COVID-19 Vaccine ( season) 2023 05/19/2022, 04/23/2021, 08/09/2020, Additional history exists Diabetic Eye Exam 12/22/2023 12/21/2022, , 12/21/2022, [...] D LEVEL ONCE IN A LIFETIME-USE SMARTSET# [id number] Completed 07/26/2023, 02/26/2023, 01/23/2023, Additional history exists [...] this encounter Medical Devices Implanted Type Area Leather Crafter Device Identifier Shelf Expiration Date Model / Serial / Lot Cement Bone Simplex Hv & G - [id number] Implanted:Qty: 2 on 09/02/2020 by Gianni Hubbard MD at OR [facility] Right: Hip LUDY : ORTHOPAEDICS 08/11/2021 6195-1-010 / / [id number] Spacer Ring Aclde Distal Lg 14 - [id number] Implanted:Qty: 1 on 09/02/2020 by Gianni Hubbard MD at OR [facility] Right: Hip LUDY : ORTHOPAEDICS 11/25/2024 [id number] / / Accolade C Cs 127 6 37/158 - [id number] Implanted:Qty: 1 on 09/02/2020 by Gianni Hubbard MD at OR [facility] Right: Hip LUDY : ORTHOPAEDICS 05/29/2023 [id number] / / [id number] Hip Cocr Lfit Head V40 28/+4 - [id number] Implanted:Qty: 1 on 09/02/2020 by Gianni Hubbard MD at OR [facility] Right: Hip LUDY : ORTHOPAEDICS 11/15/2024 6260-9-228 / / [id number] Hip Head Bipol Uhr Uni 28x52 - [id number] Implanted:Qty: 1 on 09/02/2020 by Gianni Hubbard MD at OR [facility] Right: Hip LUDY : ORTHOPAEDICS 11/25/2024 UH1-52-28 / / [id number] Lens Intraoc 17.5 - [id number] - [id number] Implanted:Qty: 1 on 03/23/2022 by Rad Morgan MD at OR [facility] Left: Eye BAUSCH & LOMB 10/11/2026 [id number] / [id number] / [id number] Lens Intraoc 18.0 - [id number] - [id number] Implanted:Qty: 1 on 03/30/2022 by Rad Morgan MD at OR [facility] Right: Eye BAUSCH & LOMB 01/11/2027 [id number] / [id number] / [id number] documented as of this encounter Additional Health Concerns Infection Onset Date Last Indicated Resolved Time C. difficile Rule-Out 12/09/2023 12/09/2023 Gastrointestinal Rule-Out 12/09/2023 12/09/2023 documented as of [...] Power of Attor jus? No Care Teams Refrigeration Engineering Teacher Relationship Specialty Start Date End Date Kaiser Amanda MD 21 [place] [address] PCP - General Family Medicine 04/11/21 documented as of this encounter
--- OUTSIDE RECORDS SUMMARY | 2024-01-29 20:36 | External Medical Summary ---
Author Name Unknown Address Unknown Organization : Laboratory Report Ordering Provider Test Date Status [facility] IRBY 12/19/2023 12:59:41 Final Therapeutic ranges for non-o perative patients:
Prophylaxsis/treatment of DVT: (Range:2.0-3.0)
Treatment of pulmonary embolism:(Range:2.0-3.0)
Prevention of systemic embolism from:
-tissue heart valves
-acute myocardial infarction
-valvular heart disease
-atrial fibrillation
(Range: 2.0-3.0)
Mechanical prosthetic valves: (Range: 2.5-3.5) Observation Date Value Abnormality Reference (Units ) Status INR in Capillary blood by Coagulation assay 12/19/2023 12:59:41 4.1 (INR) Final Performing Location
--- OUTSIDE RECORDS SUMMARY | 2024-01-29 20:36 | External Medical Summary | Summary of Care ---
Author Name Unknown Organization [facility] Address [address] [facility] [address] Phone [phone] Care Team Providers Care Foot Drill Operator Name Role Phone Kaiser Amanda MD Primary Care Provider [phone] Reason for Visit * Reason Onset Date Comments Patient Assistance Program 12/13/2023 [facility] Encounter Details Date Type Department Care Team (Late st Contact Info) Description [facility] [place] [phone] Kaiser Amanda MD [facility] [place] [address] Patient Assistance Program ([facility]) Allergies Active Allergy Reactions Criticality Noted Date Comments Cat Dander Itching 07/14/2016 documented as of this encounter (statuses as of 12/13/2023) Medications Medication Sig Dispensed Refills Start Date End Date Status Nutmeg EducationTouch Ultra 2 w/Device KitIndications:Type 2 diabetes mellitus with hemoglobin A1c goal of less than 7.5% ([facility]) Testing blood sugars twice daily Dx: E11.9 [...] hemoglobin A1c goal of less than 7.5% ([facility]) TAKE 1 TABLET BY MOUTH DAILY. TAKE [...] do you have serious difficulty h earing? No-[place] 11/07/2023 Are you blind or do you [...] to let office know that she contacted [employer] and it was their mistake for shipping [...] AM EDT Office Visit Gastroenterology, [place]olo Calabrese [address] [place] [address] [place] [phone] Thelma Jamil PA-C [address] [place] [address] [place] [address] 12/19/2023 1:00 PM EDT Anticoagulation Pharmacy, [address] [place] [address] Pharmacist1, [facility] [address] [place] [address] 01/21/2024 2:00 PM EDT Office Visit Endocrinology Alyssa Ramirez Dr [address] [place] [address] Sakina Jones MD 100 [facility] [place] [id number] 01/25/2024 3:30 PM EDT Office Visit MOHS Surgery [facility] [address] [place] [address] Laney Hogue MD 200 [place] [address] 02/21/2024 10:30 AM EDT Office Visit Urology Aleida Bearden [place] 27 [facility] 270 [place] [address] Nikolai Chaudhari MD [address] [facility] [place] [address] 02/25/2024 11:20 AM EDT Office Visit [facility] [phone] Kaiser Amanda MD 21 [place] [address] 03/05/2024 1:00 PM EDT Appointment Cardiac Studies, [facility] 400 [facility] [place] [address] 06/12/2024 2:00 PM EST Office Visit Cardiology, [address] [address] Clarissa Rapp PA-C 400 [place] [address] 10/21/2024 9:15 AM EDT Appointment Radiology, [facility] [place] [address] 10/29/2024 9:45 AM EDT Office Visit Urology Aleida Rolo Beadren [address] [place] [address] Bert Boogie Jr., MD [address] [place] [address] Scheduled Procedures Name Priority Associated Diagnoses Date/Ti [...] D LEVEL ONCE IN A LIFETIME-USE SMARTSET# [id number] Completed 07/26/2023, 02/26/2023, 01/23/2023, Additional history exists [...] this encounter Medical Devices Implanted Type Area Silk Snapper Device Identifier Shelf Expiration Date Model / Serial / Lot Cement Bone Simplex Hv & G - [id number] Implanted:Qty: 2 on 09/02/2020 by Gianni Hubbard MD at OR [facility] Right: Hip LUDY : ORTHOPAEDICS 08/11/2021 6195-1-010 / / [id number] Spacer Ring Aclde Distal Lg 14 - [id number] Implanted:Qty: 1 on 09/02/2020 by Gianni Hubbard MD at OR [facility] Right: Hip LUDY : ORTHOPAEDICS 11/25/2024 1359-2505 / / Accolade C Cs 127 6 37/158 - [id number] Implanted:Qty: 1 on 09/02/2020 by Gianni Hubbard MD at OR [facility] Right: Hip LUDY : ORTHOPAEDICS 05/29/2023 6057-0637D / / [id number] Hip Cocr Lfit Head V40 28/+4 - [id number] Implanted:Qty: 1 on 09/02/2020 by Gianni Hubbard MD at OR [facility] Right: Hip LUDY : ORTHOPAEDICS 11/15/2024 6260-9-228 / / [id number] Hip Head Bipol Uhr Uni 28x52 - [id number] Implanted:Qty: 1 on 09/02/2020 by Gianni Hubbard MD at OR [facility] Right: Hip LUDY : ORTHOPAEDICS 11/25/2024 UH1-52-28 / / [id number] Lens Intraoc 17.5 - [id number] - [id number] Implanted:Qty: 1 on 03/23/2022 by Rad Morgan MD at OR [facility] Left: Eye BAUSCH & LOMB 10/11/2026 [id number] / [id number] / [id number] Lens Intraoc 18.0 - [id number] - [id number] Implanted:Qty: 1 on 03/30/2022 by Rad Morgan MD at OR [facility] Right: Eye BAUSCH & LOMB 01/11/2027 [id number] / [id number] / [id number] documented as of this encounter Additional Health [...] Power of Attor jus? No Care Teams Foot Drill Operator Relationship Specialty Start Date End Date Kaiser Amanda MD 21 [place] [address] PCP - General Family Medicine 04/11/21 documented as of this encounter
--- OUTSIDE RECORDS SUMMARY | 2024-01-29 20:37 | External Medical Summary | Summary of Care ---
Author Name Unknown Organization [facility] Address [address] [place] [address] Phone [phone] Care Team Providers Care Toll Mechanic Name Role Phone Kaiser Amanda MD Primary Care Provider [phone] Reason for Visit * Reason Onset Date Comments Advice 12/03/2023 Encounter Details Date Type Department Care Team (Late st Contact Info) Description 12/03/2023 Telephone Urology Rolo Colon [address] [place] [address] [place], [place] [phone] Services, Scheduling [address] [place] [address] Advice Allergies Active Allergy Reactions Criticality Noted Date Comments Cat Dander Itching 07/14/2016 documented as of this encounter (statuses as of 12/03/2023) Medications Medication Sig Dispensed Refills Start Date End Date Status OneTouch Ultra 2 w/Device KitIndications:Type 2 diabetes mellitus with hemoglobin A1c goal of less than 7.5% ([facility]) Testing blood sugars twice daily Dx: E11.9 1 Kit 11 06/06/2021 Active OneTouch Delica Lancets 30GIndications:Type 2 diabetes mellitus with hemoglobin A1c goal of less than 7.5% ([facility]),Type 2 diabetes mellitus with polyneuropathy ([facility]) Check BS once daily E11.9 100 Each [...] the morning. 90 Tablet 3 08/14/2023 Active Polyethylene Glycol 3350 17 GM Oral Packet (Miralax) Mix 1 Packet in 4 to 8 ounces of any beverage and drink by mouth daily as needed for Constipation. 30 Packet 1 10/11/2023 Active Additional Information Patient not taking.Reported on 11/12/2023 Ondansetron 4 MG Oral Tablet Disintegrating (Zofran)Indications [...] by mouth at bedtime. 60 Capsule 11/08/2023 12/08/19 24 Active Midodrine HCl 5 MG Oral Tablet (Proamatine)Indicat ions:Orthostatic hypotension Take 1 Tablet by mouth in the morning and 1 Tablet at noon and 1 Tablet in the evening. 90 Tablet 11/12/2023 Active Finasteride 5 MG Oral Tablet (Proscar)Indication [...] anticoagulation clinic 90 Tablet 3 11/28/2023 Active Nitrofurantoin Monohyd Macro 100 MG Oral Capsule (Macrobid) Take 1 Capsule by mouth in the morning and 1 Capsule before bedtime. With food.. 14 Capsule 11/30/2023 Active Cephalexin 500 MG Oral Capsule (Keflex) Take 1 Capsule by mouth in the morning and 1 Capsule before bedtime. 10 Capsule 12/03/2023 Active documented as of this encounter (statuses as of 12/03/2023) Active Problems Problem Noted Date Diagnosed Date [...] as of this encounter (statuses as of 12/03/2023) Resolved Problems Problem Noted Date Diagnosed Date [...] as of this encounter (statuses as of 12/03/2023) Immunizations Name Administration Dates Next Due COVID-19 mRNA, LNP-s, No Pre serve, 2-Dose Series ([employer] 04/23/2021,08/09/2020,07/12/2020 Covid-19, Mrna, Lnp-s, Pf, B ivalent, [...] do you have serious difficulty h earing? No-[place] 11/07/2023 Are you blind or do you [...] encounter Miscellaneous Notes * Telephone Encounter - Nasreen Avila PA-C - 12/03/2023 10:42 AM EDT Yes I would like to switch his abx to Keflex for better coverage. I will provide another 5 days. Thanks! * Telephone Encounter - Valerie Anderson MED ASSIST - 12/03/2023 8:36 AM EDT Please review urine and advise if med should be changed. I can notify pt if there is a change. * Telephone Encounter - Rohini Mo GERA - 12/03/2023 8:29 AM EDT Reason for patient's call: [facility] health nurse Marina regarding patients Macrobid Caller was transferred to [facility] at the nurse line. documented in this encounter Plan of Treatment Upcoming Encounters Date Type Department Care Team (Late st Contact Info) Description 12/11/2023 2:00 PM EDT Office Visit Cardiology, [place] 400 [facility] [place] [phone] Stefani Mooney CRNP 400 [facility] [place] [phone] 12/19/2023 1:00 PM EDT Anticoagulation Pharmacy, [place] 21 [place] [address] Pharmacist1, [facility] [place] 21 [place] [address] 01/08/2024 11:00 AM EDT Office Visit Gastroenterology, [facility] [address] [place] [address] ClinardThelma PA-C [address] [place] [address] 01/21/2024 2:00 PM EDT Office Visit Endocrinology [address] [place] [address] Sakina Jones MD 100 [address] [facility] [place] [address] 01/25/2024 3:30 PM EDT Office Visit MOHS Surgery [facility] [address] [place] [address] Laney Hogue MD 200 [place] [address] 02/21/2024 10:30 AM EDT Office Visit Urology Aleida Rinaldi [place] [address] [place] [address] Nikolai Chaudhari MD [address] [place] [address] 02/25/2024 11:20 AM EDT Office Visit [facility] 21 [facility] [place] [phone] Kaiser Amanda MD 21 [facility] [place] [address] 10/21/2024 9:15 AM EDT Appointment Radiology, [facility] 400 [facility] [place] [address] 10/29/2024 9:45 AM EDT Office Visit Urology Aleida Rinaldi [place] [facility] [address] [place] [address] Bert Boogie Jr., MD [address] [place] [address] Scheduled Procedures Name Priority Associated Diagnoses Date/Ti [...] 024, 01/10/2023, 07/07/2021, Additional history exists GFR 11/07/2024 11/08/2023, 10/13, 10/22/2023, Additional history exists DXA Scan 01/25/2025 01/25/2023, 0 01/2021, 12/10/2018 Colonoscopy 03/16/2025 03/16/2022, 110 07/2021, 08/06/2009 Colorectal Cancer Screening 03/16/2025 Lipid Panel 02/27/2028 02/26/2023, 120 08/2021, 05/26/2021, Additional history exists DTaP,Tdap,and Td Vaccines (3 - Td or Tdap) 12/10/2029 12/11/2019, 06/03/2014 Pneumococcal Vaccine: 65+ Years Completed 05/22/2017, 02/23/2016, 09/25/2011 Zoster Vaccines Completed 03/26/2019, 12/12, 09/27/2011 VITAMIN D LEVEL ONCE IN A LIFETIME-USE SMARTSET# [id number] Completed 07/26/2023, 02/26/2023, 01/23/2023, Additional history exists [...] this encounter Medical Devices Implanted Type Area U.S. Representative Device Identifier Shelf Expiration Date Model / Serial / Lot Cement Bone Simplex Hv & G - [id number] Implanted:Qty: 2 on 09/02/2020 by Gianni Hubbard MD at OR [facility] Right: Hip LUDY : ORTHOPAEDICS 08/11/2021 6195-1-010 / / [id number] Spacer Ring Aclde Distal Lg 14 - [id number] Implanted:Qty: 1 on 09/02/2020 by Gianni Hubbard MD at OR [facility] Right: Hip LUDY : ORTHOPAEDICS 11/25/2024 9694-6453 / / Accolade C Cs 127 6 37/158 - [id number] Implanted:Qty: 1 on 09/02/2020 by Gianni Hubbard MD at OR [facility] Right: Hip LUDY : ORTHOPAEDICS 05/29/2023 6057-0637D / / [id number] Hip Cocr Lfit Head V40 28/+4 - [id number] Implanted:Qty: 1 on 09/02/2020 by Gianni Hubbard MD at OR [facility] Right: Hip LUDY : ORTHOPAEDICS 11/15/2024 6260-9-228 / / [id number] Hip Head Bipol Uhr Uni 28x52 - [id number] Implanted:Qty: 1 on 09/02/2020 by Gianni Hubbard MD at OR [facility] Right: Hip LUDY : ORTHOPAEDICS 11/25/2024 UH1-52-28 / / [id number] Lens Intraoc 17.5 - [id number] - [id number] Implanted:Qty: 1 on 03/23/2022 by Rad Morgan MD at OR [facility] Left: Eye BAUSCH & LOMB 10/11/2026 [id number] / [id number] / [id number] Lens Intraoc 18.0 - [id number] - [id number] Implanted:Qty: 1 on 03/30/2022 by Rad Morgan MD at OR [facility] Right: Eye BAUSCH & LOMB 01/11/2027 [id number] / [id number] / [id number] documented as of this encounter Advance Directives [...] Power of Attor jus? No Care Teams Toll Mechanic Relationship Specialty Start Date End Date Kaiser Amanda MD [address] [place] [address] PCP - General Family Medicine 04/11/21 documented as of this encounter
--- OUTSIDE RECORDS SUMMARY | 2024-01-29 20:37 | External Medical Summary | Summary of Care ---
Author Name Unknown Organization [facility] Address [address] [facility] [place] [address] Phone [phone] Care Team Providers Care Associate Professor Of Biostatistics Name Role Phone Kaiser Amanda MD Primary Care Provider [phone] Reason for Referral * Precert (Within 10 days (routine)) - Authorized Specialty Diagnoses / Procedures Referred By Contac t Referred To Contact Cardiac Studies Diagnoses Non-ischemic cardiomyopathy (HCC) Orthostatic hypotension Procedures ECHO, COMPLETE (2D), TRANS-THORACIC Stefani Mooney CRNP [address] [place] [id number] Referral ID Status Reason Start Date Expiration Date V isits Requested Visits Authorized [id number] Authorized Precert 12/11/2023 999 [id number] Encounter Details Date Type Department Care Team (Late st Contact Info) Description 12/11/2023 2:00 PM EDT Office Visit [facility] [address] [id number] Stefani Mooney CRNP [address] [place] [id number] Non-ischemic cardiomyopathy (HCC)*; Orthostatic hypotension Allergies Active Allergy Reactions Criticality Noted Date Comments Cat Dander Itching 07/14/2016 documented as of this encounter (statuses as of 12/11/2023) Medications Medication Sig Dispensed Refills Start Date End Date Status Iris Experience Ultra 2 w/Device KitIndications:Ty pe 2 diabetes mellitus with hemoglobin A1c goal of less than 7.5% (HCC) Testing blood sugars twice daily Dx: E11.9 1 Kit 11 06/06/19 22 Active [place] Delica Lancets 30GIndications:Ty pe 2 diabetes mellitus with hemoglobin A1c goal of less than 7.5% (HCC),Type 2 diabetes mellitus with polyneuropathy (HCC) Check BS once daily E11.9 100 Each 06/22/19 22 Active Docusate Sodium 100 MG Oral Capsule (Colace) Take 1 Capsule (100 mg) by mouth in the morning and 1 Capsule (100 mg) before bedtime. 10 Capsule 04/18/20 22 Active Vitamin D 25 MCG (1000 UT) Oral Tablet Take 1 Tablet (1,000 Units) by mouth daily at noon. 30 Tablet 3 04/18/20 22 Active Cinacalcet HCl 30 MG Oral Tablet (Sensipar)Indicat ions:Hypercalcemi a Take 1 tablet by mouth once daily 90 Tablet 3 12/22/19 23 Active Additional Information Patient taking differently: 30 mg Oral Daily(AM), Reported on 10/07/2023 Iron 325 (65 Fe) MG Oral Tablet Take 1 Tablet by mouth every evening. 09/13/19 23 Active glipiZIDE ER 10 MG Oral Tablet Extended Release 24 Hour (Glucotrol XL)Indications:Ty pe 2 diabetes mellitus with hemoglobin A1c goal of less than 7.5% (HCC) TAKE 1 TABLET BY MOUTH DAILY. TAKE 30 MINUTES BEFORE A MEAL 90 Tablet 3 12/27/19 23 Active DULoxetine HCl 60 MG Oral Capsule Delayed Release Particles (Cymbalta)Indicat ions:Depression with anxiety Take 1 Capsule by mouth in the morning. 90 Capsule 3 12/27/19 23 Active Hydrocortisone 2.5 % External Cream Apply to eyebrows twice daily for 3-5 days at a time as needed for flares 60 g 2 01/20/20 23 Active Iris Experience Verio In Vitro Strip (Glucose Blood)Indications :Type 2 diabetes mellitus with polyneuropathy (HCC),Type 2 [...] 10/07/2023 Nitroglycerin 0.4 MG Sublingual Tablet Sublingual (Nitrostat)Indica tions:Stable angina (HCC) Place 1 Tablet under the tongue every 5 minutes as needed for Pain, Chest. 25 Tablet 07/26/19 24 Active Omeprazole 20 MG Oral Capsule Delayed Release (PriLOSEC)Indicat ions:Gastroesopha geal reflux disease, unspecified whether esophagitis present Take 1 Capsule by mouth in the morning. 1 hour before the first meal of the day. 30 Capsule 5 07/26/19 24 Active Atorvastatin Calcium 40 MG Oral Tablet (Lipitor)Indicati ons:Hyperlipidemi a with target LDL less than 100 Take 1 Tablet by mouth in the morning. 90 Tablet 3 08/14/19 24 Active Ondansetron 4 MG Oral Tablet Disintegrating (Zofran)Indicatio ns:Nausea and vomiting, unspecified vomiting type Place 1 [...] bedtime. 15 Tablet 5 10/29/19 24 Active Tamsulosin HCl 0.4 MG Oral Capsule (Flomax) Take 2 Capsules by mouth at bedtime. 60 Capsule 11/08/19 24 024 Active Finasteride 5 MG Oral Tablet (Proscar)Indicati ons:BPH with obstruction/lower urinary tract symptoms Take 1 [...] Active Midodrine HCl 5 MG Oral Tablet (Proamatine)Indic ations:Orthostati c hypotension Take 1 Tablet by mouth in the morning and 1 Tablet at noon and 1 Tablet in the evening. Do not take at bedtime.. 270 Tablet 3 12/11/19 24 Active Polyethylene Glycol 3350 17 GM Oral Packet (Miralax) Mix 1 Packet in 4 to 8 ounces of any beverage and drink by mouth daily as needed for Constipation. 30 Packet 1 10/11/19 24 024 Discontinued(Me dication List Clean Up) Cefdinir 300 MG Oral Capsule (Omnicef) Take 1 Capsule by mouth in the morning and 1 Capsule before bedtime. Do all this for 10 days. 20 Capsule 11/08/19 24 024 Discontinued(Me dication List Clean Up) Midodrine HCl 5 MG Oral Tablet (Proamatine)Indic ations:Orthostati c hypotension Take 1 Tablet by mouth in the morning and 1 Tablet at noon and 1 Tablet in the evening. 90 Tablet 11/12/19 24 024 Discontinued Nitrofurantoin Monohyd Macro 100 MG Oral Capsule (Macrobid) Take 1 Capsule by mouth in the morning and 1 Capsule before bedtime. With food.. 14 Capsule 11/30/19 24 024 Discontinued(Me dication List Clean Up) Cephalexin 500 MG Oral Capsule (Keflex) Take 1 Capsule by mouth in the morning and 1 Capsule before bedtime. 10 Capsule 12/03/19 24 024 Discontinued(Me dication List Clean Up) documented as of this encounter (statuses as of 12/11/2023) Active Problems Problem Noted Date Diagnosed Date [...] as of this encounter (statuses as of 12/11/2023) Resolved Problems Problem Noted Date Diagnosed Date [...] as of this encounter (statuses as of 12/11/2023) Immunizations Name Administration Dates Next Due COVID-19 [...] Sign Reading Time Taken Comments Blood Pressure 104/67 12/11/2023 1:38 PM EDT Pulse 94 12/11/2023 1:38 PM EDT Temperature - - Respiratory Rate 18 12/11/2023 1:38 PM EDT Oxygen Saturation 95% 12/11/2023 1:38 PM EDT Inhaled Oxygen Concentration - - Weight 68.6 kg (151 lb 4.8 oz) 12/11/2023 1:38 P M EDT Height - - Body Mass Index 22.34 11/12/2023 12:14 PM EDT documented in this encounter Functional Status Functional Status Response Date of Assess ment Are you deaf or do you have serious difficulty h earing? No-ATMAUTLUAK 11/07/2023 Are you blind or do you [...] as of this encounter Progress Notes * Stefani Mooney CRNP - 12/11/2023 2:00 PM EDT 12/11/2023 Cardiology Follow Up Primary [employer] Supervisor: POPPY Cardiac Problems: 1.Non-Ischemic Cardiomyopathy -EF 55% per stress test 11/26/23 -EF 32% 09/06/2023 -EF 55-59% 04/2022 2. Hx Subarachnoid Hemorrhage 08/2023 3.Non-Hodgkins Lymphoma 4.Hx PE -on Coumadin HPI: Lewis Alarcon is a 72 year old male who is here for Cardiology follow up. Accompanied by his . Utilized a wheelchair. Admitted to [facility] 09/04/23-09/07/23 with a fall and intracranial hemorrhage. Echo during admission showed reduced EF. CT showed a small right front subarachnoid hemorrhage Blood thinner discontinued at that time. Fell again and admitted to [facility] 09/08-09/10. He was home for only two days. Discharged to [facility] for Rehab. Has been home since 09/24/2023. Admitted to [facility] 10/05-10/10 for a fall. Positive orthostatic hypotension. Started on Midodrine. Heartfailure and BPH medications decreased/discontinued. Admitted 11/06-11/07 with UTI. Chaparro left in place. In the ED on 12/08 with UTI. Continues to feel lightheaded/dizzy. Doesn't think it is as bad as it was previously. No falls/syncope. Appetite is not great. No N/V. When he eats he needs to go to the bathroom. Struggles with constipation and diarrhea. REVIEW OF SYSTEMS: See HPI for pertinent positives. All others negative other than those noted in the HPI. CONSTITUTIONAL: No change in weight, No weakness, No fatigue and No fevers, No sweats or chills. +dizziness. PULMONARY: No cough, sputum, or hemoptysis, No wheezing, No shortness or breath and No recent change in breathing. CARDIOVASCULAR: No chest pain, No dyspnea on exertion, No edema, No palpitations and No syncope. GASTROINTESTINAL: No abdominal pain, No change in bowel habits, No significant heartburn, No nausea, No vomiting, No diarrhea, No constipation, No blood in stools or black tarry stools. No dysphagia. HEMATOLOGIC: No abnormal bleeding and No bruising. NEUROLOGICAL: Normal balance, No headaches and No weakness. Review of patient's allergies indicates: Allergen Reactions Cat Dander Itching Current Outpatient Medications Medication Sig Dispense Refill Iris Experience Ultra 2 w/Device Kit Testing blood sugars twice daily Dx: E11.9 1 Kit 11 [place] Delica Lancets 30G Check BS once daily E11.9 100 Each 0 Docusate Sodium 100 MG Oral Capsule (Colace) Take 1 Capsule (100 mg) by mouth in the morning and 1 Capsule (100 mg) before bedtime. 10 Capsule 0 Vitamin D 25 MCG (1000 UT) Oral [...] mouth in the morning. 90 Capsule 3 Hydrocortisone 2.5 % External Cream Apply to eyebrows twice daily for 3-5 days at a time as needed for flares 60 g 2 OneTouch VerBlazent In Vitro Strip (Glucose Blood) USE STRIP TO CHECK GLUCOSE ONCE DAILY 100 Strip 3 metFORMIN HCl 1000 MG Oral Tablet (Glucophage) TAKE 1 TABLET BY MOUTH TWICE A DAY WITH BREAKFAST AND DINNER (Patient taking differently: Take 1 Tablet by mouth 2 times a day with morning and evening meals. TAKE 1 TABLET BY MOUTH TWICE A DAY WITH BREAKFAST AND DINNER) 180 Tablet 1 Nitroglycerin 0.4 MG Sublingual Tablet Sublingual (Nitrostat) Place 1 Tablet under the tongue every5 minutes as needed for Pain, Chest. 25 Tablet 0 Omeprazole 20 MG Oral Capsule Delayed Release (PriLOSEC) Take 1 Capsule by mouth in the morning. 1 hour before the first meal of the day. 30 Capsule 5 Atorvastatin Calcium 40 MG Oral Tablet (Lipitor) Take 1 Tablet by mouth in the morning. 90 Tablet 3 Ondansetron 4 MG Oral Tablet Disintegrating (Zofran) Place 1 Tablet on tongue every 8 hours as needed for Nausea. dissolve on tongue. 20 Tablet 0 Ketoconazole 2 % External Shampoo (Nizoral) APPLY TO SCALP AND EYEBROWS DAILY- LATHER, WAIT 5 MINUTES, THEN RINSE 120 mL 1 Metoprolol Succinate ER 25 MG Oral Tablet Extended Release 24 Hour (toPROL XL) Take 0.5 Tablets by mouth every night at bedtime. 15 Tablet 5 Tamsulosin HCl 0.4 MG Oral Capsule (Flomax) Take 2 Capsules by mouth at bedtime. 60 Capsule 0 Finasteride 5 MG Oral Tablet (Proscar) Take 1 Tablet by mouth in the morning. 90 Tablet 3 Triamcinolone Acetonide 0.1 % External Cream (Aristocort) Apply to rash on abdomen twice daily as needed 80 g 5 Warfarin Sodium 5 MG Oral Tablet (Coumadin) Take 1 Tablet by mouth every evening. Or as directed byanticoagulation clinic 90 Tablet 3 Midodrine HCl 5 MG Oral Tablet (Proamatine) Take 1 Tablet by mouth in the morning and 1 Tablet at noon and 1 Tablet in the evening. Do not take at bedtime.. 270 Tablet 3 No current facility-administered medications for this visit. Past Medical History: Diagnosis Date Cervical spinal cord injury (HCC) 07/13/2018 s/p fall down steps at home Hodgkin's lymphoma (HCC) 1998 Hypercalcemia Pulmonary embolism (HCC) Type 2 diabetes mellitus (HCC) UTI (urinary tract infection) Family History Problem Relation Name Age of Onset Other (Aneurysm) Father Other (Lymphoma) Mother Social History Socioeconomic History Marital status: Tobacco Use Smoking status: Never Passive exposure: Never Smokeless tobacco: Never Vaping Use Vaping status: Never Used Substance and Sexual Activity Alcohol use: Yes Comment: rarely Drug use: No Social Determinants of Health Financial Resource Strain: Low Risk (10/30/2023) Financial Resource Strain Do you have any trouble paying for your medications, or do you think you might in the future? (Adult - for ages 18 years and over): No Food Insecurity: No Food Insecurity (10/30/2023) Food Insecurity Do you need food for this week? (Adult - for ages 18 years and over): No Transportation Needs: No Transportation Needs (10/30/2023) Transportation Needs Do you have trouble getting a ride to medical visits or work? (Adult - for ages 18 years and over):Never True Has lack of transportation kept you from medical appointments, meetings, work, or from getting things needed for daily living? Check all that apply. (Adult - for ages 18 years and over): No Social Connections: Socially Integrated (10/30/2023) Social Connections How often do you feel lonely or isolated from those around you? (Adult - for ages 18 years and over): Never Housing Stability: Low Risk (10/30/2023) Housing Stability Do you currently live in a residential or have no steady place to sleep at night? (Adult - for ages 18 years and over): No Do you think you are at risk of becoming homeless? (Adult - for ages 18 years and over): No Are you homeless or worried that you might be in the future? (Adult - for ages 18 years and over): No OBJECTIVE/PHYSICAL EXAMINATION: BP 104/67 | Pulse 94 | Resp 18 | Wt 68.6 kg (151 lb 4.8 oz) | SpO2 95% | BMI 22.34 kg/m | BSA 1.83 m General: No acute distress. A+Ox3. +Frail HEENT: Normocephalic. Atraumatic. PERRL. EOMI. Conjunctiva and sclera clear. NECK: No carotid bruits. No JVD. Carotid upstrokes are brisk. Heart: RRR. S1 and S2 noted. No murmur. No rubs or gallops. PMI non displaced. Lungs: Clear to auscultation. No wheezes.No rhonchi. No rales. Abdomen: Normal bowel sounds. Soft. Nontender. No masses or organomegaly. No abdominal bruits. Extremities: No edema. No clubbing or cyanosis. Pulses: radial=2/4, posterior tibial=2/4, dorsalis pedis = 2/4. NEURO: No focal deficits. PSYCH: Appropriate affect and insight. DATA Labs & Imaging Reviewed Below: Nuclear Stress Test 11/26/2023 Lexiscan nuclear cardiac stress test negative for ischemia. The LV ejection fraction is calculated at 55%. Gated SPECT images reveals normal myocardial thickening and wall motion. Echocardiogram 09/06/2023 Mildly dilated left ventricle with moderately reduced systolic function with diffuse hypokinesis. Ejection fraction is calculated 32%. Mild left ventricular hypertrophy. Right ventricular dilatation with normal function. Sclerotic trileaflet aortic valve without significant stenosis Insufficient TR for estimation of pulmonary artery systolic pressure. CT Head/Brain 09/03/2022 Small right front subarachnoid hemorrhage compared to previous CT 09/03 Generalized brain atrophy and microvascular ischemic changes in bilateral white matter Zio 08/23/2022 Final Interpretation 1. Predominant rhythm sinus with a tendancy towards tachycardia; average HR 94bpm; slowest HR 65bpmat 12:58am consistent with sinus rhythm; fastest HR 193bpm at 10:37am consistent with PAT. 2. Rare APC with 3 runs of PAT; the longest was 12 beats; average HR 157bpm (128-193bpm) 3. Rare VPC; no runs of NSVT. 4. The patient reported symptoms [address] (113-120bpm). Lexiscan 05/26/21 This is a normal study. Lexiscan nuclear cardiac stress test negative for ischemia. The LV ejection fraction is calculated at 57%. Gated SPECT images reveals normal myocardial thickening and wall motion. Echo 04/17/2022 The qualitative LV ejection fraction is 55-59% (normal). The left ventricular cavity size is normal. The LV wall thickness is normal. There is no left ventricular mural thrombus. The left ventricular wall motion is normal. The left ventricular diastolic function is mildly abnormal (grade I). The right ventricular cavity is mildly dilated with normal systolic function. Mild pulmonary hypertension. ASSESSMENT/PLAN: 73 year old year old male 1. Non-ischemic cardiomyopathy (HCC) EF reduced 32% while admitted in August with subarachnoid hemorrhage. EF previously 55-59%. Nuclear stress test was negative for ischemia. EF during stress test was 55%. Repeat echocardiogram ordered to formerly reassess EF. -Unable to titrate GDMT due to symptomatic orthostatic hypotension. -Continue Metoprolol Succinate 12.5 mg HS -Continue Midodrine 5 mg TID. Do not take at bedtime. -Unable to use Jardiance due to frequent UTI's -Encouraged patient to change positions slowly, stay hydrated with water, and wear compression stockings. DISPOSITION: Follow up in in 6 months or if symptoms worsen/fail to improve. All questions were answered to the patients satisfaction. Patient advised to report to ED with any and all emergencies. The patient agrees to the above plan and will call with additional questions or concerns. PHILIP Rodriguez Cardiology[address] [address] I spent a total of 40 minutes on the date of service in preparation, delivery, and documentation ofthe care provided to Lewis Alarcon excluding any time spent in the performance of separately billed services. This chart was completed in part utilizing [employer] Speech Voice Recognition Software. Grammatical errors, random word insertions, pronoun errors, and incomplete sentences are an occasional consequence of this system due to software limitations, ambient noise, and hardware issues. Any formal questions or concerns about the content, text, or information contained within the body of this dictation should be directly addressed to the provider for clarification. documented in this encounter Nursing Notes * Susanne Rivas LPN - 12/11/2023 1:36 PM EDT Patient was identified by name and date of . Name: Lewis Alarcon Date of : (1950). Examination Room: 2 Reason for Visit: Follow up and go over stress test results. Interim Hospitalization(s): no Interim Emergency room visit(s): [facility] Chest Pain: No SOB: No Problems/Concerns: No Medications reviewed and are up to date via: Patient's written list Would you like to sign up for [facility]? ALREADY ACTIVE Patient was instructed to not get up on the exam table/exam chair until directed and assisted by their provider; patient is to remain seated in the chair/ wheelchair/ exam table/ exam chair for fall prevention and safety reasons. Patient is aware to have assistance to step down off exam table/exam chair with personnel. Patient voiced full comprehension of instructions. Susanne Rivas LPN 1:36 PM 12/11/2023 documented in this encounter Plan of Treatment Upcoming Encounters Date Type Department Care Team (Late st Contact Info) Description 12/19/2023 11:00 AM EDT Office Visit Gastroenterology, [address] [phone] Thelma Jamil PA-C [address] [place] [address] 12/19/2023 1:00 PM EDT Anticoagulation Pharmacy, [address] [address] Pharmacist1, [facility] [address] [address] 01/21/2024 2:00 PM EDT Office Visit Endocrinology [address] [place] [phone] Sakina Jones MD [address] [facility] [place] [id number] 01/25/2024 3:30 PM EDT [facility] [address] [place] [address] Laney Hogue MD [address] [place] [address] 02/21/2024 10:30 AM EDT Office Visit Urology Aleida Rinaldi [place] [address] [facility] [address] [address] Nikolai [facility]audhari MD [address] [facility] [address] 02/25/2024 11:20 AM EDT Office Visit [place] [address] [facility] [address] Kaiser Amanda MD [address] [facility] [address] 03/05/2024 1:00 PM EDT Appointment Cardiac Studies, [address] [address] 06/12/2024 2:00 PM EST Office Visit Cardiology, [place] [address] [place] [address] Clarissa Rapp PA-C [address] [place] [address] 10/21/2024 9:15 AM EDT Appointment Radiology, [address] [address] 10/29/2024 9:45 AM EDT Office Visit Urology Aleida Rinaldi [place] [address] [facility] [address] [address] Bert Boogie Jr., MD [address] [place] [address] Scheduled Orders Name Type Priority Associated Diagnoses Orde r Schedule ECHO, COMPLETE (2D), TRANS-THORACIC Echocardiology Routine Non-ischemic cardiomyopathy (HCC) Orthostatic hypotension Expected: 12/11/2023 (Approximate), Expires: 01/10/2026 Scheduled Procedures Name Priority Associated Diagnoses Date/Ti [...] 07/07/2021, Additional history exists GFR 12/08/2024 12/09/2023, 06/2 11/2023, 11/07/2023, Additional history exists DXA Scan 01/25/2025 01/25/2023, 090 01/2021, 12/10/2018 Colonoscopy 03/16/2025 03/16/2022, 110 07/2021, 08/06/2009 Colorectal Cancer Screening 03/16/2025 Lipid Panel 02/27/2028 02/26/2023, 12/0 08/2021, 05/26/2021, Additional history exists DTaP,Tdap,and Td Vaccines (3 - Td or Tdap) 12/10/2029 12/11/2019, 06/03/2014 Hepatitis C Screening Completed 08/07/2015 Pneumococcal Vaccine: 65+ Years Completed 05/22/2017, 02/23/2016, 09/25/2011 Zoster Vaccines Completed 03/26/2019, 12/12, 09/27/2011 VITAMIN D LEVEL ONCE IN A LIFETIME-USE SMARTSET# [id number] Completed 07/26/2023, 02/26/2023, 01/23/2023, Additional history exists [...] this encounter Medical Devices Implanted Type Area Synthetic Resin Operator Device Identifier Shelf Expiration Date Model / Serial / Lot Cement Bone Simplex Hv & G - [id number] Implanted:Qty: 2 on 09/02/2020 by Gianni Hubbard MD at OR [facility] Right: Hip LUDY : ORTH[employer] 08/11/2021 [id number] / / [id number] Spacer Ring Aclde Distal Lg 14 - [id number] Implanted:Qty: 1 on 09/02/2020 by Gianni Hubbard MD at OR [facility] Right: Hip LUDY : ORTHOPAEDICS 11/25/2024 [id number] / / Accolade C Cs 127 6 37/158 - [id number] Implanted:Qty: 1 on 09/02/2020 by Gianni Hubbard MD at OR [facility] Right: Hip LUDY : ORTHOPAEDICS 05/29/2023 [id number] / / [id number] Hip Cocr Lfit Head V40 28/+4 - [id number] Implanted:Qty: 1 on 09/02/2020 by Gianni Hubbard MD at OR [facility] Right: Hip LUDY : ORTHOPAEDICS 11/15/2024 [id number] / / [id number] Hip Head Bipol Uhr Uni 28x52 - [id number] Implanted:Qty: 1 on 09/02/2020 by Gianni Hubbard MD at OR [facility] Right: Hip LUDY : ORTHOPAEDICS 11/25/2024 [id number] / / [id number] Lens Intraoc 17.5 - [id number] - [id number] Implanted:Qty: 1 on 03/23/2022 by Rad Morgan MD at OR [facility] Left: Eye [employer]CH [employer]OMB 10/11/2026 [id number] / [id number] / [id number] Lens Intraoc 18.0 - [id number] - [id number] Implanted:Qty: 1 on 03/30/2022 by Rad Morgan MD at OR [facility] Right: Eye BAUSCH [employer] LOMB 01/11/2027 [id number] / [id number] / [id number] documented as of this encounter Visit Diagnoses Diagnosis Non-ischemic cardiomyopathy (HCC)- Primary Other primary cardiomyopathies Orthostatic hypotension documented in this encounter Additional Health Concerns [...] Power of Attor jus? No Care Teams Associate Professor Of Biostatistics Relationship Specialty Start Date End Date Kaiser Amanda MD [address] [address] PCP - General Family Medicine 04/11/21 documented as of this encounter"
--- OUTSIDE RECORDS SUMMARY | 2024-01-29 20:37 | External Medical Summary ---
Author Name Unknown Address Unknown Organization [id number]:[facility] - [address] [place] [address] Laboratory Report Ordering Provider Test Date Status REGGIE ESTRADA 12/09/2023 14:50:38 Final Observation Date Value Abnormality Reference (Units ) Status WBC, Total 12/09/2023 14:50:38 9.11 4.00-10.80 (K/uL) Final RBC 12/09/2023 14:50:38 4.16 4.50-5.25 (M/uL) Final Hemoglobin 12/09/2023 14:50:38 12.3 Below low normal 14.0-16.8 (g/dL) Final HCT 12/09/2023 14:50:38 38.3 Below low normal 40.0-48.4 (%) Final MCV 12/09/2023 14:50:38 92.1 82.0-99.5 (fL) Final MCH 12/09/2023 14:50:38 29.6 27.0-34.0 (pg) Final MCHC 12/09/2023 14:50:38 32.1 32.0-36.0 (g/dL) Final RDW 12/09/2023 14:50:38 14.5 11.5-15.5 (%) Final Platelets 12/09/2023 14:50:38 193 140-400 (K/uL) Final MPV 12/09/2023 14:50:38 9.0 6.6-11.1 (fL) Final Nucleated erythrocytes/100 leukocytes [Ratio] in Blood by Automated count 12/09/2023 14:50:38 0 <=0 (/100 WBCs) Final Performing Location [facility] - [address] [place] [address]
--- OUTSIDE RECORDS SUMMARY | 2024-01-29 20:37 | External Medical Summary ---
Author Name Unknown Address Unknown Organization K1F:[facility] - [address] [place] [address] Laboratory Report Ordering Provider Test Date Status REGGIE ESTRADA 12/09/2023 14:50:38 Final Observation Date Value Abnormality Reference (Units ) Status SYNC LEUKOCYTES IN BLOOD BY AUTOMATED COUNT 12/09/2023 14:50:38 9.11 4.00-10.80 (K/uL) Final Segs 12/09/2023 14:50:38 66.7 40.0-75.0 (%) Final Lymphs % 12/09/2023 14:50:38 21.1 18.0-42.0 (%) Final Monos 12/09/2023 14:50:38 7.2 1.0-11.0 (%) Final Eosinophils 12/09/2023 14:50:38 4.1 0.0-6.0 (%) Final Basos 12/09/2023 14:50:38 0.7 0.0-2.0 (%) Final Immature Granulocyte, Percent 12/09/2023 14:50:38 0.2 0.0-2.0 (%) Final Absolute Segs 12/09/2023 14:50:38 6.08 1.80-7.70 (K/uL) Final Lymphs, absolute 12/09/2023 14:50:38 1.92 1.00-4.80 (K/ul) Final Monos, Abs 12/09/2023 14:50:38 0.66 0.00-1.10 (K/uL) Final Eos, Abs 12/09/2023 14:50:38 0.37 0.00-0.70 (K/uL) Final Basos, Abs 12/09/2023 14:50:38 0.06 0.00-0.20 (K/uL) Final Immature Granulocytes, Number 12/09/2023 14:50:38 0.02 0.00-0.20 (K/uL) Final Performing Location [facility] [address] [facility] [place]olo [place] [address]
--- OUTSIDE RECORDS SUMMARY | 2024-01-29 20:37 | External Medical Summary | Summary of Care ---
Author Name Unknown Organization [facility] Address [address] [facility] [place] [address] Phone [phone] Care Team Providers Care Car Mechanic Name Role Phone Kaiser Amanda MD Primary Care Provider +1 [phone] Encounter Details Date Type Department Care Team (Late st Contact Info) Description 12/10/2023 Population Health External Data Unspecified Department Allergies Active Allergy Reactions Criticality Noted Date Comments Cat Dander Itching 07/14/2016 documented as of this encounter (statuses as of 12/10/2023) Medications Medication Sig Dispensed Refills Start Date [...] of less than 7.5% ([facility]) TAKE 1 TABLET BY MOUTH DAILY. 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 15 Tablet 5 10/29/2023 Active Midodrine HCl 5 MG Oral Tablet [...] as of this encounter (statuses as of 12/10/2023) Active Problems Problem Noted Date Diagnosed Date [...] as of this encounter (statuses as of 12/10/2023) Resolved Problems Problem Noted Date Diagnosed Date [...] as of this encounter (statuses as of 12/10/2023) Immunizations Name Administration Dates Next Due COVID-19 mRNA, LNP-s, No Pre serve, 2-Dose Series ([employer]) 04/23/2021,08/09/2020,07/12/2020 Covid-19, Mrna, Lnp-s, Pf, B ivalent, [...] do you have serious difficulty h earing? No-[place] 11/07/2023 Are you blind or do you [...] 12/11/2023 2:00 PM EDT Office Visit Cardiology, [place] [address] [place] [address] Stefani Mooney CRNP 400 [place] [address] 12/19/2023 1:00 PM EDT Anticoagulation Pharmacy, [address] [address] Pharmacist1, [facility] [address] [address] 01/08/2024 11:00 AM EDT Office Visit Gastroenterology, [facility] [facility] [employer] [facility] [address] [place] [phone] Thelma Jamil PA-C [address] [place] [address] 01/21/2024 2:00 PM EDT Office Visit Endocrinology [address], [place] [address] Sakina Jones MD [address] [facility] [place] [address] 01/25/2024 3:30 PM EDT Office Visit [facility] Surgery [facility] [address] [facility] [place] [address] Laney Hogue MD 200 [facility] [place] [address] 02/21/2024 10:30 AM EDT Office Visit Urologstephen Aleida RinaldiRolo [address] [place] [address] Nikolai Chaudhari MD 27 [facility] [place] [address] 02/25/2024 11:20 AM EDT Office Visit [facility] 21 [place] [phone] Kaiser Amanda MD 21 [place] [address] 10/21/2024 9:15 AM EDT Appointment Radiology, [address] [place] [address] 10/29/2024 9:45 AM EDT Office Visit [place] Rolo Rinaldi [address] [place] [address] Bert Boogie Jr., MD [address] [place] [address] Scheduled Procedures Name Priority Associated Diagnoses Date/Ti [...] 07/07/2021, Additional history exists GFR 12/08/2024 12/09/2023, 062 11/2023, 11/07/2023, Additional history exists DXA Scan [...] D LEVEL ONCE IN A LIFETIME-USE SMARTSET# 22409 Completed 07/26/2023, 02/26/2023, 01/23/2023, Additional history exists [...] this encounter Medical Devices Implanted Type Area Ginning Operator Device Identifier Shelf Expiration Date Model / Serial / Lot Cement Bone Simplex Hv & G - [id number] Implanted:Qty: 2 on 09/02/2020 by Gianni Hubbard MD at OR [facility] Right: Hip LUDY : ORTHOPAEDICS 08/11/2021 6195-1-010 / / [id number] Spacer Ring Aclde Distal Lg 14 - [id number] Implanted:Qty: 1 on 09/02/2020 by Gianni Hubbard MD at OR [facility] Right: Hip LUDY : ORTHOPAEDICS 11/25/2024 6924-5687 / / Accolade C Cs 127 6 37/158 - [id number] Implanted:Qty: 1 on 09/02/2020 by Gianni Hubbard MD at OR [facility] Right: Hip LUDY : ORTHOPAEDICS 05/29/2023 [id number] / / [id number] Hip Cocr Lfit Head V40 28/+4 - [id number] Implanted:Qty: 1 on 09/02/2020 by Gianni Hubbard MD at OR [facility] Right: Hip LUDY : ORTHOPAEDICS 11/15/2024 6260-9-228 / / [id number] Hip Head Bipol Uhr Uni 28x52 - [id number] Implanted:Qty: 1 on 09/02/2020 by Gianni Hubbard MD at OR [facility] Right: Hip LUDY : ORTHOPAEDICS 11/25/2024 UH1-52-28 / / [id number] Lens Intraoc 17.5 - [id number] - [id number] Implanted:Qty: 1 on 03/23/2022 by Rad Morgan MD at OR [facility] Left: Eye BAUSCH & LOMB 10/11/2026 [id number] / [id number] / [id number] Lens Intraoc 18.0 - [id number] - [id number] Implanted:Qty: 1 on 03/30/2022 by Rad Morgan MD at OR [facility] Right: Eye BAUSCH & LOMB 01/11/2027 [id number] / [id number] / [id number] documented as of this encounter Additional Health [...] Power of Attor jus? No Care Teams Car Mechanic Relationship Specialty Start Date End Date Kaiser Amanda MD [address] [place] [address] PCP - General Family Medicine 04/11/21 documented as of this encounter
--- OUTSIDE RECORDS SUMMARY | 2024-01-29 20:37 | External Medical Summary ---
Author Name Unknown Address Unknown Organization K[facility] [address] [facility] [place] [address] Laboratory Report Ordering Provider Test Date Status REGGIE ESTRADA 12/09/2023 15:36:33 Final Observation Date Value Abnormality Reference (Units ) Status Color of Urine by Auto 12/09/2023 15:36:33 Yellow Light Yellow, Yellow, Dark Yellow Final Clarity, Urine 12/09/2023 15:36:33 Clear Clear Final Glucose [Mass/volume] in Urine by Automated test strip 12/09/2023 15:36:33 Negative Negative (mg/dL) Final Bilirubin.total [Presence] in Urine by Automated test strip 12/09/2023 15:36:33 Negative Negative Final Ketones [Mass/volume] in Urine by Automated test strip 12/09/2023 15:36:33 Trace Abnormal Negative (mg/dL) Final Specific gravity, Urine 12/09/2023 15:36:33 1.022 1.003-1.030 Final Hemoglobin [Presence] in Urine by Automated test strip 12/09/2023 15:36:33 Negative Negative Final pH, Urine 12/09/2023 15:36:33 5.5 5.0-7.5 (Units) Final Protein [Mass/volume] in Urine by Automated test strip 12/09/2023 15:36:33 Negative Negative (mg/dL) Final Urobilinogen [Mass/volume] in Urine by Automated test strip 12/09/2023 15:36:33 0.2 0.2, 1.0 (mg/dL) Final Nitrite [Presence] in Urine by Automated test strip 12/09/2023 15:36:33 Negative Negative Final Leukocyte esterase [Presence] in Urine by Automated test strip 12/09/2023 15:36:33 Negative Negative Final RBC, Urine 12/09/2023 15:36:33 0-2 0-2 (/HPF) Final WBC, Urine 12/09/2023 15:36:33 0-2 0-2 (/HPF) Final Bacteria [#/area] in Urine sediment by Microscopy high power field 12/09/2023 15:36:33 0-25 0-25 (/HPF) Final CULTURE, URINE - [facility] 12/09/2023 15:36:33 Final Culture not indicated by uri nalysis results\X09\ Performing Location LABORATORY [address] [facility] [address]
--- OUTSIDE RECORDS SUMMARY | 2024-01-29 20:37 | External Medical Summary | Summary of Care ---
Author Name Unknown Organization [facility] Address [address] [facility] [address] Phone [phone] Care Team Providers Care Integration Software Engineer Name Role Phone Kaiser Amanda MD Primary Care Provider [phone] Reason for Referral * Evaluate & Treat - Unlimited Visits (Within 30 days (routine)) - Authorized Specialty Diagnoses / Procedures Referred By Fauzia oconnor Referred To Contact Gastroenterology Diagnoses Abdominal pain, generalized Nasreen Avila PA-C [address] [place] [address] Referral ID Status Reason Start Date Expiration Date Visits Requested Visits Authorized [id number] Authorized Specialty Services Required 12/05/2023 999 999 Question Answer Referral Priority Within 30 days (routine) Where should this appointment be scheduled? [facility] For what condition is the patient being referred? All Gastro Conditions Reason for Visit * Reason Onset Date Comments Referral 11/30/2023 Encounter Details Date Type Department Care Team (Late st Contact Info) Description 11/30/2023 Telephone Urology Rolo Colon [address] [place] [address] Nasreen Avila PA-C [address] [place] [address] Referral Allergies Active Allergy Reactions Criticality Noted Date Comments Cat Dander Itching 07/14/2016 documented as of this encounter (statuses as of 12/05/2023) Medications Medication Sig Dispensed Refills Start Date End Date Status Klash Ultra 2 w/Device KitIndications:Type 2 diabetes mellitus with hemoglobin A1c goal of less than 7.5% ([facility]) Testing blood sugars twice daily Dx: E11.9 1 Kit 11 06/06/2021 Active Klash Delica Lancets 30GIndications:Type 2 diabetes mellitus with [...] goal of less than 7.5% ([facility]) TAKE 1 TABLET BY MOUTH DAILY. TAKE [...] for flares 60 g 2 01/19/2023 Active Klash Verio In Vitro Strip (Glucose Blood)Indications:T ype [...] MG Sublingual Tablet Sublingual (Nitrostat)Indicati ons:Stable angina ([facility]) Place 1 Tablet under the tongue every [...] bedtime. With food.. 14 Capsule 11/30/2023 Active documented as of this encounter (statuses as of 12/05/2023) Active Problems Problem Noted Date Diagnosed Date [...] as of this encounter (statuses as of 12/05/2023) Resolved Problems Problem Noted Date Diagnosed Date [...] as of this encounter (statuses as of 12/05/2023) Immunizations Name Administration Dates Next Due COVID-19 mRNA, LNP-s, No Pre serve, 2-Dose Series (Pet [employer]) 04/23/2021,08/09/2020,07/12/2020 Covid-19, Mrna, Lnp-s, Pf, B ivalent, [...] do you have serious difficulty h earing? No-[place] 11/07/2023 Are you blind or do you [...] encounter Miscellaneous Notes * Telephone Encounter - Suzanne Chapman OSA - 12/05/2023 1:50 PM EDT Order linked * Telephone Encounter - Valerie Anderson MED ASSIST - 11/30/2023 11:05 AM EDT Pt is scheduled for Gastro and they are requesting a referral be placed. Could PCP place one? Thankyou! documented in this encounter Plan of Treatment Upcoming Encounters Date Type Department Care Team (Late st Contact Info) Description 12/11/2023 2:00 PM EDT Office Visit Cardiology, [place] [address] [place] [address] Stefani Mooney CRNP [address] [place], [place] [phone] 12/19/2023 1:00 PM EDT Anticoagulation Pharmacy, [address] [address] Pharmacist1, [facility] [place] [address] [place] [address] 01/08/2024 11:00 AM EDT Office Visit Gastroenterology, [facility] [address] [place] [phone] Thelma Jamil PA-C [address] [place] [address] 01/21/2024 2:00 PM EDT Office Visit Endocrinology [address] [place] [address] Sakina Jones MD [address] [facility] [place] [address] 01/25/2024 3:30 PM EDT Office Visit [facility] Surgery [facility] [address] [place] [address] Laney Hogue MD 200 [place] [address] 02/21/2024 10:30 AM EDT Office Visit Urologstephen RinaldiMiaL[place] [address] [facility] [address] [place] [address] Nikolai Chaudhari MD [address] [place] [address] 02/25/2024 11:20 AM EDT Office Visit [facility] 21 [facility] [place] [address] Kaiser Amanda MD 21 [facility] [address] 10/21/2024 9:15 AM EDT Appointment Radiology, [address] [place] [address] 10/29/2024 9:45 AM EDT Office Visit Ashwini RinaldiRolo 27 [facility] 270 [place] [address] Bert Boogie Jr., MD 27 [facility] [place] [address] Scheduled Procedures Name Priority Associated Diagnoses Date/Ti me COLONOSCOPY FLEXIBLE PROXIMA L DIAGNOSTIC Recall History of colonic polyps Scheduled Referrals Name Type Priority Associated Diagnoses Order Schedule ADULT GASTROENTEROLOGY REFERRAL OP Referral Within 30 days (routine) Abdominal pain, generalized Ordered: 12/05/2023 Health Maintenance Due Date Last Done Comments [...] D LEVEL ONCE IN A LIFETIME-USE SMARTSET# 82464 Completed 07/26/2023, 02/26/2023, 01/23/2023, Additional history exists [...] this encounter Medical Devices Implanted Type Area Line Person Device Identifier Shelf Expiration Date Model / Serial / Lot Cement Bone Simplex Hv & G - [id number] Implanted:Qty: 2 on 09/02/2020 by Gianni Hubbard MD at OR [facility] Right: Hip LUDY : ORTHOPAEDICS 08/11/2021 6195-1-010 / / [id number] Spacer Ring Aclde Distal Lg 14 - [id number] Implanted:Qty: 1 on 09/02/2020 by Gianni Hubbard MD at OR [facility] Right: Hip LUDY : ORTHOPAEDICS 11/25/2024 4973-3121 / / Accolade C Cs 127 6 37/158 - [id number] Implanted:Qty: 1 on 09/02/2020 by Gianni Hubbard MD at OR [facility] Right: Hip LUDY : ORTHOPAEDICS 05/29/2023 6057-0637D / / [id number] Hip Cocr Lfit Head V40 28/+4 - [id number] Implanted:Qty: 1 on 09/02/2020 by Gianni Hubbard MD at OR [facility] Right: Hip LUDY : ORTHOPAEDICS 11/15/2024 6260-9-228 / / [id number] Hip Head Bipol Uhr Uni 28x52 - [id number] Implanted:Qty: 1 on 09/02/2020 by Gianni Hubbard MD at OR [facility] Right: Hip LUDY : ORTHOPAEDICS 11/25/2024 UH1-52-28 / / [id number] Lens Intraoc 17.5 - [id number] - [id number] Implanted:Qty: 1 on 03/23/2022 by Rad Morgan MD at OR [facility] Left: Eye BAUSCH & LOMB 10/11/2026 [id number] / [id number] / [id number] Lens Intraoc 18.0 - [id number] - [id number] Implanted:Qty: 1 on 03/30/2022 by Rad Morgan MD at OR [facility] Right: Eye BAUSCH & LOMB 01/11/2027 [id number] / [id number] / [id number] documented as of this encounter Visit Diagnoses Diagnosis Abdominal pain, generalized- Primary documented in this encounter Advance Directives * Full Code [...] Power of Attor jus? No Care Teams Integration Software Engineer Relationship Specialty Start Date End Date Kaiser Amanda MD [address] [place] [address] PCP - General Family Medicine 04/11/21 documented as of this encounter
--- OUTSIDE RECORDS SUMMARY | 2024-01-29 20:37 | External Medical Summary | Summary of Care ---
Author Name Unknown Organization [facility] Address [address] [facility] [address] Phone [phone] Care Team Providers Care Pony Edger Name Role Phone Kaiser Amanda MD Primary Care Provider [phone] Reason for Visit * Reason Onset Date Comments Home Health 09/07/2023 FYI 09/07/2023 Encounter Details Date Type Department Care Team (Late st Contact Info) Description 09/07/2023 Telephone [facility] Rolo Chacko 21 [facility] [place] [address] Kaiser Amanda MD 21 [facility] [place] [address] Home Health; Allergies Active Allergy Reactions Criticality Noted Date Comments Cat Dander Itching 07/14/2016 documented as of this encounter (statuses as of 12/07/2023) Medications Medication Sig Dispensed Refills Start Date End Date Status Austin-TetraTouch Ultra 2 w/Device KitIndications:Type 2 diabetes mellitus with hemoglobin A1c goal of less than 7.5% ([facility]) Testing blood sugars twice daily Dx: E11.9 [...] goal of less than 7.5% ([facility]) TAKE 1 TABLET BY MOUTH DAILY. TAKE [...] as of this encounter (statuses as of 12/07/2023) Active Problems Problem Noted Date Diagnosed Date [...] as of this encounter (statuses as of 12/07/2023) Resolved Problems Problem Noted Date Diagnosed Date [...] as of this encounter (statuses as of 12/07/2023) Immunizations Name Administration Dates Next Due COVID-19 mRNA, LNP-s, No Pre serve, 2-Dose Series ([employer]) 04/23/2021,08/09/2020,07/12/2020 Covid-19, Mrna, Lnp-s, Pf, B ivalent, [...] you have serious difficulty h earing? No 04/15/2022 Are you blind or do you have serious difficulty seeing, even when wearing glasses? No 04/15/2022 Do you have serious difficul ty walking or climbing stairs? (5 years old or older) Yes 04/18/2022 Do you have difficulty dress ing or bathing? (5 years old or older) No 04/15/2022 Because of a physical, menta l, or emotional condition, do you have difficulty doing errands alone such as visiting a doctor s office or shopping? (15 years old or older) Yes 04/15/20 Cognitive Status Response Date of Assessm ent Because of a physical, menta l, or emotional condition, do you have serious difficulty concentrating, remembering, or making decisions? (5 years old or older) No 04/15/2022 documented as of this encounter Miscellaneous Notes * Telephone Encounter - Marta Zamorano LPN - 09/07/2023 12:12 PM EDT Admission/Start of Care Admission/Start of Care: August RN, Calling from: Mario Patient was Admitted to: [facility] , for: subdural hematoma from 09/04 to 09/06/23 Referral ordered by: [facility] Referral received for: Prison and PT Planned start of care date:Yes, Date 09/10/23 Start of care completed on: to be 09/10/23 Narrative: August calling from Mario . Will be opening the patient on Sunday. Next Nursing visit(s) on 09/10/23 They will call with any updates or additional concerns from the upcoming visit. Last Office Visit: 07/26/2023 Has patient been scheduled or seen in the office for a follow up visit: Yes- on09/14/23 with DUSTIN Montalvo Advised that orders will be signed by Dr. Amanad and to fax to the office for signature. Call back August with advice or orders at [phone] Please fax orders to [phone] documented in this encounter Plan of Treatment Upcoming Encounters Date Type Department Care Team (Late st Contact Info) Description 12/11/2023 2:00 PM EDT Office Visit Cardiology, [place] [address] [place] [address] Stefani Mooney CRNP [address] [place] [address] 12/19/2023 1:00 PM EDT Anticoagulation Pharmacy, [address] [address] Pharmacist1, [facility] [address] [address] 01/08/2024 11:00 AM EDT Office Visit Gastroenterology, [facility] [address] [place] [phone] Thelma Jamil PA-C [address] [place] [address] 01/21/2024 2:00 PM EDT Office Visit Endocrinology [address] [place] [address] Sakina Jones MD 100 [address] [facility] [place] [address] 01/25/2024 3:30 PM EDT Office Visit [facility] Surgery [facility] [address] [facility] [place] [address] Laney Hogue MD 200 [place] [address] 02/21/2024 10:30 AM EDT Office Visit Urologstephen RinaldiMichaelwn [address] [place] [address] Nikolai Chaudhari MD [address] [place] [address] 02/25/2024 11:20 AM EDT Office Visit [facility] 21 [place] [phone] Kaiser Amanda MD 21 [place] [address] 10/21/2024 9:15 AM EDT Appointment Radiology, [address] [place] [address] 10/29/2024 9:45 AM EDT Office Visit Urologstephen RinaldiMichaelwn [address] [place] [address] Bert Boogie Jr., MD 27 [facility] [place] [address] Scheduled Procedures Name Priority Associated Diagnoses Date/Ti [...] D LEVEL ONCE IN A LIFETIME-USE SMARTSET# 42831 Completed 07/26/2023, 02/26/2023, 01/23/2023, Additional history exists [...] this encounter Medical Devices Implanted Type Area Ore Puncher Device Identifier Shelf Expiration Date Model / Serial / Lot Cement Bone Simplex Hv & G - [id number] Implanted:Qty: 2 on 09/02/2020 by Gianni Hubbard MD at OR [facility] Right: Hip LUDY : ORTHOPAEDICS 08/11/2021 6195-1-010 / / [id number] Spacer Ring Aclde Distal Lg 14 - [id number] Implanted:Qty: 1 on 09/02/2020 by Gianni Hubbard MD at OR [facility] Right: Hip LUDY : ORTHOPAEDICS 11/25/2024 3600-9408 / / Accolade C Cs 127 6 37/158 - [id number] Implanted:Qty: 1 on 09/02/2020 by Gianni Hubbard MD at OR [facility] Right: Hip LUDY : ORTHOPAEDICS 05/29/2023 6057-0637D / / [id number] Hip Cocr Lfit Head V40 28/+4 - [id number] Implanted:Qty: 1 on 09/02/2020 by Gianni Hubbard MD at OR [facility] Right: Hip LUDY : ORTHOPAEDICS 11/15/2024 6260-9-228 / / [id number] Hip Head Bipol Uhr Uni 28x52 - [id number] Implanted:Qty: 1 on 09/02/2020 by Gianni Hubbard MD at OR [facility] Right: Hip LUDY : ORTHOPAEDICS 11/25/2024 UH1-52-28 / / [id number] Lens Intraoc 17.5 - [id number] - [id number] Implanted:Qty: 1 on 03/23/2022 by Rad Morgan MD at OR [facility] Left: Eye BAUSCH & LOMB 10/11/2026 [id number] / [id number] / [id number] Lens Intraoc 18.0 - [id number] - [id number] Implanted:Qty: 1 on 03/30/2022 by Rad Morgan MD at OR [facility] Right: Eye BAUSCH & LOMB 01/11/2027 [id number] / [id number] / [id number] documented as of this encounter Additional Health Concerns Infection Onset Date Last Indicated Resolved Time Gastrointestinal Rule-Out 10/07/2023 10/07/2023 8:20 AM EDT C. difficile Rule-Out 10/19/2023 10/19/20232023 7:47 PM EDT documented as of this encounter Advance [...] Power of Attor jus? No Care Teams Pony Edger Relationship Specialty Start Date End Date Kaiser Amanda MD [address] [place] [address] PCP - General Family Medicine 04/11/21 documented as of this encounter
--- OUTSIDE RECORDS SUMMARY | 2024-01-29 20:37 | External Medical Summary | Summary of Care ---
Author Name Unknown Organization [facility] Address [address] [facility] [address] Phone [phone] Care Team Providers Care Security Ambassador Name Role Phone Kaiser Amanda MD Primary Care Provider [phone] Reason for Referral * Evaluate & Treat - Unlimited Visits (Within 30 days (routine)) - Authorized Specialty Diagnoses / Procedures Referred By Fauzia oconnor Referred To Contact Gastroenterology Diagnoses Abdominal pain, generalized Nasreen Avila PA-C [address] [address] Referral ID Status Reason Start Date Expiration Date Visits Requested Visits Authorized [id number] Authorized Specialty Services Required 12/05/2023 999 999 [...] [address] [address] Nasreen Avila PA-C [address] [address] Referral Allergies Active Allergy Reactions Criticality Noted Date Comments Cat Dander Itching 07/14/2016 documented as of this encounter (statuses as of 12/05/2023) Medications Medication Sig Dispensed Refills Start Date End Date Status ShoutEm Ultra 2 w/Device KitIndications:Type 2 diabetes mellitus with hemoglobin A1c goal of less than 7.5% (HCC) Testing blood sugars twice daily Dx: E11.9 1 Kit 11 06/06/2021 Active ShoutEm Delica Lancets 30GIndications:Type 2 diabetes mellitus with [...] A1c goal of less than 7.5% ([facility]) TAKE 1 TABLET BY MOUTH DAILY. [...] for flares 60 g 2 01/19/2023 Active ShoutEm Verio In Vitro Strip (Glucose Blood)Indications:T ype [...] Sublingual Tablet Sublingual (Nitrostat)Indicati ons:Stable angina ([facility]) Place 1 Tablet under the tongue [...] mRNA, LNP-s, No Pre serve, 2-Dose Series ([employer]) 04/23/2021,08/09/2020,07/12/2020 Covid-19, Mrna, Lnp-s, Pf, B ivalent, [...] do you have serious difficulty h earing? No-[place] 11/07/2023 Are you blind or do you [...] 12/11/2023 2:00 PM EDT Office Visit Cardiology, [place] [address] [place] [address] Stefani Mooney CRNP [address], [place] [phone] 12/19/2023 1:00 PM EDT Anticoagulation Pharmacy, [address] [address] Pharmacist1, [facility] [place] [address] [place] [address] 01/08/2024 11:00 AM EDT Office Visit Gastroenterology, [facility] [address] [place] [phone] Thelma Jamil PA-C [address] [place] [address] 01/21/2024 2:00 PM EDT Office Visit Endocrinology [address] [place] [address] Sakina Jones MD [address] [place] [place] [address] 01/25/2024 3:30 PM EDT Office Visit MO[facility] Surgery [facility] [address] [place] [address] Laney Hogue MD [address] [place] [address] 02/21/2024 10:30 AM EDT Office Visit [facility] [place] [address] [facility] [address] [place] [address] Nikolai Chaudhari MD [address] [place] [address] 02/25/2024 11:20 AM EDT Office Visit [facility] [address] [facility] [place] [phone] Kaiser Amanda MD [address] [place] [address] 10/21/2024 9:15 AM EDT Appointment Radiology, [address] [place] [address] 10/29/2024 9:45 AM EDT Office Visit Ashwini RinaldiRolo 27 [facility] [address] [place] [address] Bert Boogie Jr., MD [address] [place] [address] Scheduled Procedures Name Priority Associated Diagnoses Date/Ti [...] D LEVEL ONCE IN A LIFETIME-USE SMARTSET# [id number] Completed 07/26/2023, 02/26/2023, 01/23/2023, Additional history exists [...] this encounter Medical Devices Implanted Type Area Ems Driver Device Identifier Shelf Expiration Date Model / Serial / Lot Cement Bone Simplex Hv [employer] G - [id number] Implanted:Qty: 2 on 09/02/2020 by Gianni Hubbard MD at OR [facility] Right: Hip LUDY : [employer] 08/11/2021 [id number] / / [id number] Spacer Ring Aclde Distal Lg 14 - [id number] Implanted:Qty: 1 on 09/02/2020 by Gianni Hubbard MD at OR [facility] Right: Hip [employer] : [employer] 11/25/2024 [id number] / / Accolade C Cs 127 6 37/158 - [id number] Implanted:Qty: 1 on 09/02/2020 by Gianni Hubbard MD at OR [facility] Right: Hip [employer] : [employer] 05/29/2023 [id number] / / [id number] Hip Cocr Lfit Head V40 28/+4 - [id number] Implanted:Qty: 1 on 09/02/2020 by Gianni Hubbard MD at OR [facility] Right: Hip [employer] : [employer] 11/15/2024 [id number] / / [id number] Hip Head Bipol Uhr Uni 28x52 - [id number] Implanted:Qty: 1 on 09/02/2020 by Gianni Hubbard MD at OR [facility] Right: Hip [employer] : [employer] 11/25/2024 [id number] / / [id number] Lens Intraoc 17.5 - [id number] - [id number] Implanted:Qty: 1 on 03/23/2022 by Rad Morgan MD at OR [facility] Left: Eye [employer] 10/11/2026 [id number] / [id number] / [id number] Lens Intraoc 18.0 - [id number] - [id number] Implanted:Qty: 1 on 03/30/2022 by Rad Morgan MD at OR [facility] Right: Eye [employer]OM[employer] 01/11/2027 [id number] / [id number] / [id number] documented as of this encounter Visit Diagnoses [...] Power of Attor jus? No Care Teams Security Ambassador Relationship Specialty Start Date End Date Kaiser Amanda MD [address] [address] PCP - General Family Medicine 04/11/21 documented as of this encounter
--- OUTSIDE RECORDS SUMMARY | 2024-01-29 20:37 | External Medical Summary ---
Author Name Unknown Address Unknown Organization K1F:[facility] - [address] [place] [address] Laboratory Report Ordering Provider Test Date Status REGGIE ESTRADA 12/09/2023 14:50:38 Final Warfarin Therapy
INR: 2 .0-3.0 conventional anticoagulation
INR: 2.5- 3.5 high intensity anticoagulation Observation Date Value Abnormality Reference (Units ) Status PT 12/09/2023 14:50:38 37.8 Above high normal 11 .6-15.2 (seconds) Final INR 12/09/2023 14:50:38 3.8 Above high normal 0. 8-1.2 Final Performing Location [facility] - [address] [place] [address]
--- OUTSIDE RECORDS SUMMARY | 2024-01-29 20:37 | External Medical Summary ---
Author Name Unknown Address Unknown Organization K1F:[facility] - [address] [place] [address] Laboratory Report Ordering Provider Test Date Status REGGIE ESTRADA 12/09/2023 14:50:38 Final Observation Date Value Abnormality Reference (Units ) Status BUN 12/09/2023 14:50:38 23 Above high normal 6-20 (mg/dL) Final Creatinine 12/09/2023 14:50:38 1.2 0.6-1.2 (mg/dL) Final Glomerular filtration rate/1.73 sq M.predicted [Volume Rate/Area] in Serum, Plasma or Blood by Creatinine-based formula (CKD-EPI) 12/09/2023 14:50:38 63 >=60 (mL/min) Final eGFR is calculated based on the CKD-EPI 2020 equation. Sodium 12/09/2023 14:50:38 136 135-146 (m mol/L) Final Potassium 12/09/2023 14:50:38 4.5 3.5-5.1 (m mol/L) Final Cl 12/09/2023 14:50:38 101 98-107 (mm ol/L) Final CO2 12/09/2023 14:50:38 21 Below low normal 22- 32 (mmol/L) Final Anion gap 12/09/2023 14:50:38 14 7-15 (mmol /L) Final Glucose 12/09/2023 14:50:38 173 Above high normal 70 -120 (mg/dL) Final Albumin 12/09/2023 14:50:38 3.6 Below low normal 3.8 -5.0 (g/dL) Final AST (Aspartate aminotransferase) 12/09/2023 14:50:38 18 10-50 (U/L) Fin al Alk Phos 12/09/2023 14:50:38 49 35-130 (U/ L) Final Bilirubin, Total 12/09/2023 14:50:38 0.4 <=1 .2 (mg/dL) Final Calcium 12/09/2023 14:50:38 8.6 8.4-10.2 ( mg/dL) Final Protein 12/09/2023 14:50:38 6.2 6.0-8.3 (g /dL) Final ALT (Alanine aminotransferase) 12/09/2023 14:50:38 17 10-50 (U/L) Rafael mendez Performing Location [address]ORY [address] [place] [address]
--- OUTSIDE RECORDS SUMMARY | 2024-01-29 20:37 | External Medical Summary | Summary of Care ---
Author Name Unknown Organization [facility] Address [address] [place] [address] Phone [phone] Care Team Providers Care Net Developer Architect Name Role Phone Kaiser Amanda MD Primary Care Provider [phone] Reason for Visit * Reason Comments Urinary Tract Infection Symptoms * Auth/Cert Specialty Diagnoses / Procedures Referred By Fauzia t Referred To Contact [facility] [address] [place] [address] Phone: [phone] Emergency Medicine [facility] [address] [place] [address] Referral ID Status Reason Start Date Expiration Date Visits Re quested Visits Authorized [id number] Encounter Details Date Type Department Care Team (Late st Contact Info) Description 12/09/2023 2:13 PM EDT - 12/09/2023 5:08 PM EDT Emergency [facility] Emergency Department ([facility]) [address] [place] [address] Robbie Tamez DO [address] [place] [id number] Urinary frequency (Primary Dx) Discharge Disposition: Home - Self [...] Dx: E11.9 1 Kit 11 06/06/2021 Active Nutritics Nova Lancets 30GIndications:Type 2 diabetes mellitus with hemoglobin [...] for flares 60 g 2 01/19/2023 Active Nutritics Verio In Vitro Strip (Glucose Blood)Indications:T ype [...] mRNA, LNP-s, No Pre serve, 2-Dose Series (Summify) 04/23/2021,08/09/2020,07/12/2020 Covid-19, Mrna, Lnp-s, Pf, B ivalent, 30 Mcg, IM, 12 yrs and above (Summify) 05/19/2022 Pneumococcal Conjugate Vacc, 13 Valent (Prevnar) [...] Sign Reading Time Taken Comments Blood Pressure 140/67 12/09/2023 4:07 PM EDT Pulse 68 12/09/2023 4:07 PM EDT Temperature 36.1 C (97 F) 12/09/2023 2:16 PM EDT Respiratory Rate 18 12/09/2023 4:07 PM EDT Oxygen Saturation 100% 12/09/2023 2:16 PM EDT Inhaled Oxygen Concentration - - Weight - - Height - - Body Mass Index - - documented in this encounter Functional Status Functional Status Response Date of Assess ment Are you deaf or do you have serious difficulty h earing? No-[place]T 11/07/2023 Are you blind or do you [...] this encounter Discharge Instructions * Discharge Instructions* Robbie Tamez DO - 12/09/2023 4:24 PM EDT You were evaluated today for increased frequency of urination. Laboratory studies were overall reassuring with no evidence of urinary tract infection and no significant urinary retention on your bedside bladder scan. Your symptoms may be related to your BPH. Recommend continued follow up outpatientwith plan for Urology in the future. Return if you develop any fevers, pain, or new/concerning symptoms. documented in this encounter ED Notes * Robbie Tamez DO - 12/09/2023 2:38 PM EDT HISTORY OF PRESENT ILLNESS Lewis Alarcon is a 73 year old male who presents to the ED for evaluation of Urinary Tract Infection Symptoms. The patient was seen at 12/09/23 1415. Urinary Tract Infection Symptoms This is a 73-year-old male with history of type 2 diabetes, BPH, DVT and PE on warfarin, and UTIs presenting for increased frequency of urination and burning with urination. Patient and at bedside report that the patient has been experiencing frequent/persistent UTIs for the past few months. Completed a course of Keflex yesterday. Frequency of urination had been controlled at that time. Overnight this recurred and he was up throughout the evening peeing frequently. Has burning with urination now as well. Denies any flank pain or abdominal discomfort. Denies any associated fevers or chills. reports history of BPH which has complicated his ability urinate in the past. Has follow up with Urology scheduled in the coming months. Denies any bloody urine production. The patient's allergies, past history, and medications were reviewed. PHYSICAL EXAM Initial Vitals (see all): BP 95/57 | Pulse 96 | Resp 24 | Temp 97 | O2 100 %, Room Air, None | Weight 71.08 kg | Height 175.3cm | BMI 23.14 kg/m2 Initial Pain Assessment (see all): 4 (moderate pain)/10, location: suprapubic region ([facility] Adult Scale 0-10) Physical Exam Vitals and nursing note reviewed. Constitutional: General: He is not in acute distress. Appearance: He is well-developed. HENT: Head: Normocephalic and atraumatic. Right Ear: External ear normal. Left Ear: External ear normal. Nose: Nose normal. No rhinorrhea. Mouth/Throat: Mouth: Mucous membranes are moist. Pharynx: Oropharynx is clear. No posterior oropharyngeal erythema. Eyes: Extraocular Movements: Extraocular movements intact. Conjunctiva/sclera: Conjunctivae normal. Pupils: Pupils are equal, round, and reactive to light. Cardiovascular: Rate and Rhythm: Normal rate and regular rhythm. Heart sounds: No murmur heard. Pulmonary: Effort: Pulmonary effort is normal. No respiratory distress. Breath sounds: Normal breath sounds. No stridor. No wheezing, rhonchi or rales. Abdominal: General: There is no distension. Palpations: Abdomen is soft. Tenderness: There is no abdominal tenderness. There is no right CVA tenderness, left CVA tenderness, guarding or rebound. Musculoskeletal: General: No swelling. Normal range of motion. Cervical back: Normal range of motion and neck supple. No tenderness. Skin: General: Skin is warm and dry. Capillary Refill: Capillary refill takes less than 2 seconds. Neurological: General: No focal deficit present. Mental Status: He is alert and oriented to person, place, and time. Sensory: No sensory deficit. Motor: No weakness. Psychiatric: Mood and Affect: Mood normal. PROCEDURES AND TREATMENTS ED Orders | ED Results MEDICAL DECISION MAKING Nursing notes and vital signs were reviewed. ED Course as of 12/09/23 1625 Sun Dec 09, 2023 1432 Patient was evaluated. Afebrile and hemodynamically stable. Has been experiencing symptoms forurinary tract infection since September with on and off treatment since then. Completed course of antibiotics yesterday. Urinalysis and laboratory studies pending. [AH] 1519 WBC: 9.11 [AH] 1519 Bedside ultrasound only showing 130 mL of urine. [] 1624 Urinalysis without evidence of infection. Laboratory workup otherwise reassuring. Frequency ofurination likely related to his BPH. No indication at this time for advanced imaging with reassuring bedside bladder scan which was pre void. Already has Urology follow up scheduled outpatient. Discussed plan for discharge home with the patient was understanding and agreeable. Return precautions provided. [] ED Course User Index [] Robbie Tamez DO Differential Diagnoses Based on my history, physical exam, and evaluation, the differential includes, but is not limited, to the following diagnoses: Pyelonephritis, UTI, bladder outlet obstruction, GHISLAINE. Amount and/or Complexity of Data Reviewed Labs: ordered. Decision-making details documented in ED Course. Clinical Impressions Urinary frequency Disposition Discharged. The patient's condition at disposition was: stable. Robbie Tamez * Harshad Mitchell RN - 12/09/2023 2:14 PM EDT Patient arrives to the ED with concerns for UTI that started last night. Relates he has had UTI's frequently recently. Verbalizes burning with urination at this time. States going to the bathroom a lot last night but was unable to urinate much. documented in this encounter Miscellaneous Notes * ED Cuff Setter Lockstitch Note - Mahnaz Decker RN - 12/09/2023 2:34 PM EDT Pt comes into ED for concerns of UTI. Pt reports he has been admitted for this 3x since . Pt states one of his doctors dx him with an enlarged prostate and he might be a candidate for procedure. Pt states he was admitted and received IV antibiotics, pt took last dose of PO abx yesterday. Pt reports he has been having diarrhea as well that began yesterday with about 5-6 episodes. Pt states he is having burning while urinating, rates discomfort 3/10. Denies n/v, reports loss of appetite. Heart sounds regular, lung sounds clear bilaterally. Bowel sounds present all quadrants, abdomen soft, non tender, non distended. 1450 bladder scan performed 3x, 180ml was highest reading. documented in this encounter Plan of Treatment Upcoming Encounters Date Type Department Care Team (Late st Contact Info) Description 12/11/2023 2:00 PM EDT Office Visit Cardiology, [place] [address] [place] [address] [address] [address] Stefani Mooney CRNP [address] [facility] [place] [address] 12/19/2023 1:00 PM EDT Anticoagulation Pharmacy, [place] [address] [address] Pharmacist1, [facility] [address] [address] 01/08/2024 11:00 AM EDT Office Visit Gastroenterology, [facility] [address] [place] [phone] Thelma Jamil PA-C [address] [facility] [place] [address] 01/21/2024 2:00 PM EDT Office Visit Endocrinology [address] [place] [address] Sakina Jones MD [address] [facility], [place] [phone] 01/25/2024 3:30 PM EDT Office Visit MOHS Surgery [facility] [address] [facility] [place] [address] Laney Hogue MD [address] [place] [address] 02/21/2024 10:30 AM EDT Office Visit Urology [place] [address] [address] Nikolai Chaudhari MD [address] [address] 02/25/2024 11:20 AM EDT Office Visit Family [facility], [place] [address] [phone] Kaiser Amanda MD 21 [facility] [place] [address] 10/21/2024 9:15 AM EDT Appointment Radiology, [facility] [address] [place] [address] 10/29/2024 9:45 AM EDT Office Visit Urology [place] [address] [place] [address] Bert Boogie Jr., MD [address] [place] [address] Scheduled Orders Name Type Priority Associated Diagnoses Orde r Schedule CLOSTRIDIUM DIFFICILE, PCR Lab Routine One Time for 1 Occurrences starting 12/09/2023 until 12/09/2023 GASTROINTESTINAL PATHOGEN PANEL, STOOL Lab Routine One Time for 1 Occurrences starting 12/09/2023 until 12/09/2023 GASTROINTESTINAL PATHOGEN PANEL PCR Lab Routine Once for 1 Occur rences starting 12/09/2023 until 12/09/2023 GASTROINTESTINAL PATHOGEN PANEL CULTURE Lab Routine Once for 1 Occur rences starting 12/09/2023 until 12/09/2023 Scheduled Procedures Name Priority Associated Diagnoses Date/Ti [...] D LEVEL ONCE IN A LIFETIME-USE SMARTSET# [id number] Completed 07/26/2023, 02/26/2023, 01/23/2023, Additional history exists [...] this encounter Medical Devices Implanted Type Area Machinery Rigger Device Identifier Shelf Expiration Date Model / Serial / Lot Cement Bone Simplex Hv & G - [id number] Implanted:Qty: 2 on 09/02/2020 by Gianni Hubbard MD at OR [facility] Right: Hip LUDY : ORTHOPAEDICS 08/11/2021 [id number] / / [id number] Spacer Ring Aclde Distal Lg 14 - [id number] Implanted:Qty: 1 on 09/02/2020 by Gianni Hubbard MD at OR [facility] Right: Hip LUDY : ORTHOPAEDICS 11/25/2024 [id number] / / Accolade C Cs 127 6 37/158 - [id number] Implanted:Qty: 1 on 09/02/2020 by Gianni Hubbard MD at OR [facility] Right: Hip LUDY : ORTHOPAEDICS 05/29/2023 [id number] / / [id number] Hip Cocr Lfit Head V40 28/+4 - [id number] Implanted:Qty: 1 on 09/02/2020 by Gianni Hubbard MD at OR [facility] Right: Hip LUDY : ORTHOPAEDICS 11/15/2024 [id number] / / [id number] Hip Head Bipol Uhr Uni 28x52 - [id number] Implanted:Qty: 1 on 09/02/2020 by Gianni Hubbard MD at OR [facility] Right: Hip LUDY : ORTHOPAEDICS 11/25/2024 [id number] / / [id number] Lens Intraoc 17.5 - [id number] - [id number] Implanted:Qty: 1 on 03/23/2022 by Rad Morgan MD at OR [facility] Left: Eye BAUSCH & LOMB 10/11/2026 [id number] / [id number] / [id number] Lens Intraoc 18.0 - [id number] - [id number] Implanted:Qty: 1 on 03/30/2022 by Rad Morgan MD at OR [facility] Right: Eye BAUSCH & LOMB 01/11/2027 [id number] / [id number] / [id number] documented as of this encounter Procedures Procedure Name Priority Date/Time Associated Diagnosis Comments URINALYSIS, REFLEX TO CULTURE STAT 12/09/2023 3:36 PM EDT URINALYSIS, REFLEX TO CULTURE (CUP ONLY) STAT 12/09/2023 3:36 PM EDT URINALYSIS, REFLEX TO CULTURE (NOT FOR NEUTROPENIC PATIENTS) STAT 12/09/2023 3:36 PM EDT DIFFERENTIAL, AUTOMATED STAT 12/09/2023 2:50 PM EDT COMPREHENSIVE METABOLIC PANEL STAT 12/09/2023 2:50 PM EDT CBC STAT 12/09/2023 2:50 PM EDT PT INR STAT 12/09/2023 2:50 PM EDT CBC STAT 12/09/2023 2:50 PM EDT documented in this encounter Results * (ABNORMAL) URINALYSIS, REFLEX TO CULTURE (12/09/2023 3:36 PM EDT) Color, Urine Yellow Light Yellow, Yellow, Dark Yellow 12/09/2023 4:02 PM EDT [facility] Clarity, Urine Clear Clear 12/09/2023 4:02 PM EDT [facility] Glucose, Urine Negative Negative mg/dL 12/09/2023 4:02 PM EDT [facility] Bilirubin, Urine Negative Negative 12/09/2023 4:02 PM EDT [facility] Ketone, Urine Trace(A) Negative mg/dL 12/09/2023 4:02 PM EDT [facility] Specific [place], Urine 1.022 1.003 - 1.030 12/09/2023 4:02 PM EDT [facility] Blood, Urine Negative Negative 12/09/2023 4:02 PM EDT [facility] pH, Urine 5.5 5.0 - 7.5 Units 12/09/2023 4:02 PM EDT [facility] Protein, Urine Negative Negative mg/dL 12/09/2023 4:02 PM EDT [facility] Urobilinogen, Urine 0.2 0.2, 1.0 mg/dL 12/09/2023 4:02 PM EDT [facility] Nitrite, Urine Negative Negative 12/09/2023 4:02 PM EDT LABORATORY [facility] Esterase, Urine Negative Negative 12/09/2023 4:02 PM EDT LABORATORY [facility] RBC, Urine 0-2 0 - 2 /HPF 12/09/2023 4:02 PM EDT LABORATORY [facility] WBC, Urine 0-2 0 - 2 /HPF 12/09/2023 4:02 PM EDT LABORATORY [facility] Bacteria, Urine 0-25 0 - 25 /HPF 12/09/2023 4:02 PM EDT LABORATORY [facility] Culture, Urine 12/09/2023 4:02 PM EDT LABORATORY [facility] Comment:Culture not indicate d by urinalysis results Urine Urine specimen obtained by clean catch procedure / Unknown Non-blood Collection / Unknown 12/09/2023 3:36 PM EDT 12/09/2023 3:42 PM EDT [facility] URINE ORDERABLES Performing Organization Address City/[facility]/ZIP Co de Phone Number LABORATORY [address] [address] * URINALYSIS, REFLEX TO CULTURE (CUP ONLY) (12/09/2023 3:36 PM EDT) Urinalysis, Reflex to Culture Specimen Specimen collected and received 12/09/2023 5:01 PM EDT LABORATORY [facility] Urine Urine specimen obtained by clean catch procedure / Unknown Non-blood Collection / Unknown 12/09/2023 3:36 PM EDT 12/09/2023 3:42 PM EDT [facility] URINE ORDERABLES LABORATORY [address] [id number] * (ABNORMAL) PT INR (12/09/2023 2:50 PM EDT) Prothrombin Time 37.8(H) 11.6 - 15.2 seconds 12/09/2023 3:12 PM EDT LABORATORY [facility] INR 3.8(H) 0.8 - 1.2 12/09/2023 3:12 PM EDT LABORATORY [facility] Blood Venous blood specimen / Unknown Venipuncture / Unknown 12/09/2023 2:50 PM EDT 12/09/2023 2:54 PM EDT [facility] LABORATORY [facility] - 12/09/2023 3:12 PM EDT Warfarin Therapy INR: 2.0-3.0 conventional anticoagulation INR: 2.5-3.5 high intensity anticoagulation Robbie Dashawn LAB BLOOD ORDERABLES LABORATORY [facility] [address] [place] [address] * DIFFERENTIAL, AUTOMATED (12/09/2023 2:50 PM EDT) Pathologist [facility] WBC 9.11 4.00 - 10.80 K/uL 12/09/2023 2:58 PM EDT LABORATORY [facility] Neutrophils % 66.7 40.0 - 75.0 % 12/09/2023 2:58 PM EDT LABORATORY [facility] Lymphocytes % 21.1 18.0 - 42.0 % 12/09/2023 2:58 PM EDT LABORATORY [facility] Monocytes % 7.2 1.0 - 11.0 % 12/09/2023 2:58 PM EDT LABORATORY [facility] Eosinophils % 4.1 0.0 - 6.0 % 12/09/2023 2:58 PM EDT LABORATORY [facility] Basophils % 0.7 0.0 - 2.0 % 12/09/2023 2:58 PM EDT LABORATORY [facility] Immature Granulocytes % 0.2 0.0 - 2.0 % 12/09/2023 2:58 PM EDT LABORATORY [facility] Absolute Neutrophils 6.08 1.80 - 7.70 K/uL 12/09/2023 2:58 PM EDT LABORATORY [facility] Absolute Lymphocytes 1.92 1.00 - 4.80 K/ul 12/09/2023 2:58 PM EDT LABORATORY [facility] Absolute Monocytes 0.66 0.00 - 1.10 K/uL 12/09/2023 2:58 PM EDT LABORATORY [facility] Absolute Eosinophils 0.37 0.00 - 0.70 K/uL 12/09/2023 2:58 PM EDT LABORATORY [facility] Absolute Basophils 0.06 0.00 - 0.20 K/uL 12/09/2023 2:58 PM EDT LABORATORY [facility] Absolute Immature Granulocytes 0.02 0.00 - 0.20 K/uL 12/09/2023 2:58 PM EDT LABORATORY [facility] Blood Venous blood specimen / Unknown Venipuncture / Unknown 12/09/2023 2:50 PM EDT 12/09/2023 2:54 PM EDT Robbie Dashawn LAB BLOOD ORDERABLES LABORATORY [facility] [address] [place] [address] * (ABNORMAL) CBC (12/09/2023 2:50 PM EDT) WBC 9.11 4.00 - 10.80 K/uL 12/09/2023 2:58 PM EDT LABORATORY [facility] RBC 4.16 4.50 - 5.25 M/uL 12/09/2023 2:58 PM EDT LABORATORY [facility] HGB 12.3(L) 14.0 - 16.8 g/dL 12/09/2023 2:58 PM EDT LABORATORY [facility] HCT 38.3(L) 40.0 - 48.4 % 12/09/2023 2:58 PM EDT LABORATORY [facility] MCV 92.1 82.0 - 99.5 fL 12/09/2023 2:58 PM EDT LABORATORY [facility] MCH 29.6 27.0 - 34.0 pg 12/09/2023 2:58 PM EDT LABORATORY [facility] MCHC 32.1 32.0 - 36.0 g/dL 12/09/2023 2:58 PM EDT LABORATORY [facility] RDW 14.5 11.5 - 15.5 % 12/09/2023 2:58 PM EDT LABORATORY [facility] PLT 193 140 - 400 K/uL 12/09/2023 2:58 PM EDT LABORATORY [facility] MPV 9.0 6.6 - 11.1 fL 12/09/2023 2:58 PM EDT LABORATORY [facility] nRBCs 0 <=0 /100 WBCs 12/09/2023 2:58 PM EDT [facility] Blood Venous blood specimen / Unknown Venipuncture / Unknown 12/09/2023 2:50 PM EDT 12/09/2023 2:54 PM EDT Robbie Tamez DO LAB BLOOD ORDERABLES [facility] [address] [place] [address] * (ABNORMAL) COMPREHENSIVE METABOLIC PANEL (12/09/2023 2:50 PM EDT) BUN 23(H) 6 - 20 mg/dL 12/09/2023 3:14 PM EDT [facility] Creatinine 1.2 0.6 - 1.2 mg/dL 12/09/2023 3:14 PM EDT [facility] Estimated Glomerular Filtration Rate 63 >=60 mL/min 12/09/2023 3:14 PM EDT [facility] Comment:eGFR is calculated b ased on the CKD-EPI 2020 equation. Sodium 136 135 - 146 mmol/L 12/09/2023 3:14 PM EDT [facility] Potassium 4.5 3.5 - 5.1 mmol/L 12/09/2023 3:14 PM EDT [facility] Chloride 101 98 - 107 mmol/L 12/09/2023 3:14 PM EDT [facility] CO2 21(L) 22 - 32 mmol/L 12/09/2023 3:14 PM EDT [facility] Anion Gap 14 7 - 15 mmol/L 12/09/2023 3:14 PM EDT [facility] Glucose 173(H) 70 - 120 mg/dL 12/09/2023 3:14 PM EDT [facility] Albumin 3.6(L) 3.8 - 5.0 g/dL 12/09/2023 3:14 PM EDT [facility] AST 18 10 - 50 U/L 12/09/2023 3:14 PM EDT [facility] Alkaline Phosphatase 49 35 - 130 U/L 12/09/2023 3:14 PM EDT [facility] Bilirubin, Total 0.4 <=1.2 mg/dL 12/09/2023 3:14 PM EDT [facility] Calcium 8.6 8.4 - 10.2 mg/dL 12/09/2023 3:14 PM EDT [facility] Protein 6.2 6.0 - 8.3 g/dL 12/09/2023 3:14 PM EDT [facility] ALT 17 10 - 50 U/L 12/09/2023 3:14 PM EDT [facility] Blood Venous blood specimen / Unknown Venipuncture / Unknown 12/09/2023 2:50 PM EDT 12/09/2023 2:54 PM EDT Robbie Tamez DO LAB BLOOD ORDERABLES [facility] [address] [place] [address] documented in this encounter Visit Diagnoses Diagnosis Urinary frequency- Primary documented in this encounter Additional Health Concerns [...] Power of Attor jus? No Care Teams Net Developer Architect Relationship Specialty Start Date End Date Kaiser Amanda MD [address] [address] PCP - General Family Medicine 04/11/21 documented as of this encounter"
--- OUTSIDE RECORDS SUMMARY | 2024-01-29 20:37 | External Medical Summary | Summary of Care ---
Author Name Unknown Organization [facility] Address [address] [place] [address] Phone [phone] Care Team Providers Care Mechanical Pencils Assembler Name Role Phone Kaiser Amanda MD Primary Care Provider [phone] [phone] Reason for Visit * Reason Onset Date Comments Advice 12/03/2023 Encounter Details Date Type Department Care Team (Late st Contact Info) Description 12/03/2023 Telephone Urology Rolo Colon [address] [place], [place] [id number] Services, Scheduling [address] [place] [address] Advice Allergies Active Allergy Reactions Criticality Noted Date Comments Cat Dander Itching 07/14/2016 documented as of this encounter (statuses as of 12/03/2023) Medications Medication Sig Dispensed Refills Start Date End Date Status OneTouch Ultra 2 w/Device KitIndications:Type 2 diabetes mellitus with hemoglobin A1c goal of less than 7.5% ([facility]) Testing blood sugars twice daily Dx: E11.9 1 Kit 11 06/06/2021 Active OneTouch Delica Lancets 30GIndications:Type 2 diabetes mellitus with hemoglobin A1c goal of less than 7.5% ([facility]),Type 2 diabetes mellitus with polyneuropathy ([facility]) Check BS once daily E11.9 [...] mRNA, LNP-s, No Pre serve, 2-Dose Series ([employer]) 04/23/2021,08/09/2020,07/12/2020 Covid-19, Mrna, Lnp-s, Pf, B ivalent, [...] you have serious difficulty h earing? No-VENETIE IRA 11/07/2023 Are you blind or do you [...] encounter Miscellaneous Notes * Telephone Encounter - Valerie Anderson MED ASSIST - 12/03/2023 1:26 PM EDT Pt is aware and will tile picker the new med * Telephone Encounter - Nasreen Avila PA-C [...] change. * Telephone Encounter - Rohini Mo OSA - 12/03/2023 8:29 AM EDT Reason for patient's call: [facility] nurse Marina regarding patients Macrobid Caller was transferred to [facility] at the nurse line. documented in this encounter Plan of Treatment Upcoming Encounters Date Type Department Care Team (Late st Contact Info) Description 12/11/2023 2:00 PM EDT Office Visit Cardiology, [place] [address] [place] [address] Stefani Mooney CRNP [address] [place] [address] 12/19/2023 1:00 PM EDT Anticoagulation Pharmacy, [address] [address] Pharmacist1, [address] [address] 01/08/2024 11:00 AM EDT Office Visit Gastroenterology, [facility] [address] [place] [address] Thelma Jamil PA-C [address] [place] [address] 01/21/2024 2:00 PM EDT Office Visit Endocrinology Alyss[address] [place] [address] Sakina Jones MD [address] [place] [address] 01/25/2024 3:30 PM EDT Office Visit [facility] [address] [place] [address] Laney Hogue MD 200 [place] [address] 02/21/2024 10:30 AM EDT Office Visit Urology [place] [address] [place] [address] Nikolai Chaudhari MD [address] [place] [address] 02/25/2024 11:20 AM EDT Office Visit [facility] 21 [place] [phone] Kaiser Amanda MD 21 [place] [address] 10/21/2024 9:15 AM EDT Appointment Radiology, [facility] 400 [place] [address] 10/29/2024 9:45 AM EDT Office Visit Urologstephen [place] [address] [facility] [address] [place] [address] Bert Boogie Jr., MD [address] [place] [address] Scheduled Procedures Name Priority Associated Diagnoses Date/Ti [...] D LEVEL ONCE IN A LIFETIME-USE SMARTSET# 59966 Completed 07/26/2023, 02/26/2023, 01/23/2023, Additional history exists [...] this encounter Medical Devices Implanted Type Area Electronic Industrial Controls Mechanic Device Identifier Shelf Expiration Date Model / Serial / Lot Cement Bone Simplex Hv & G - [id number] Implanted:Qty: 2 on 09/02/2020 by Gianni Hubbard MD at OR [facility] Right: Hip LUDY : ORTHOPAEDICS 08/11/2021 6195-1-010 / / [id number] Spacer Ring Aclde Distal Lg 14 - [id number] Implanted:Qty: 1 on 09/02/2020 by Gianni Hubbard MD at OR [facility] Right: Hip LUDY : ORTHOPAEDICS 11/25/2024 7169-0278 / / Accolade C Cs 127 6 37/158 - [id number] Implanted:Qty: 1 on 09/02/2020 by Gianni Hubbard MD at OR [facility] Right: Hip LUDY : ORTHOPAEDICS 05/29/2023 6057-0637D / / [id number] Hip Cocr Lfit Head V40 28/+4 - [id number] Implanted:Qty: 1 on 09/02/2020 by Gianni Hubbard MD at OR [facility] Right: Hip LUDY : ORTHOPAEDICS 11/15/2024 6260-9-228 / / [id number] Hip Head Bipol Uhr Uni 28x52 - [id number] Implanted:Qty: 1 on 09/02/2020 by Gianni Hubbard MD at OR [facility] Right: Hip LUDY : ORTHOPAEDICS 11/25/2024 UH1-52-28 / / [id number] Lens Intraoc 17.5 - [id number] - [id number] Implanted:Qty: 1 on 03/23/2022 by Rad Morgan MD at OR [facility] Left: Eye BAUSCH & LOMB 10/11/2026 [id number] / [id number] / [id number] Lens Intraoc 18.0 - [id number] - [id number] Implanted:Qty: 1 on 03/30/2022 by Rad Morgan MD at OR [facility] Right: Eye BAUSCH & LOMB 01/11/2027 [id number] / [id number] / [id number] documented as of this encounter Advance Directives [...] Power of Attor jus? No Care Teams Mechanical Pencils Assembler Relationship Specialty Start Date End Date Kaiser Amanda MD [address] [place] [place] [address] PCP - General Family Medicine 04/11/21 documented as of this encounter
--- OUTSIDE RECORDS SUMMARY | 2024-01-29 20:38 | External Medical Summary | Summary of Care ---
Author Name Unknown Organization [facility] Address [address] [facility] [place] [address] Phone [phone] Care Team Providers Care Bookkeeping Manager Name Role Phone Kasier Amanda MD Primary Care Provider [phone] Encounter Details Date Type Department Care Team (Late st Contact Info) Description 11/30/2023 10:00 AM EDT Nurse Only Urology Rolo Colon [address] [place] [address] Nurse Rolo Urology [address] [place] [address] Allergies Active Allergy Reactions Criticality Noted Date Comments Cat Dander Itching 07/14/2016 documented as of this encounter (statuses as of 11/30/2023) Medications Medication Sig Dispensed Refills Start Date End Date Status OneTouch Ultra 2 w/Device KitIndications:Type 2 diabetes mellitus with hemoglobin A1c goal of less than 7.5% ([facility]) Testing blood sugars twice daily Dx: E11.9 1 Kit 11 06/06/2021 Active OneTouch Delica Lancets 30GIndications:Type 2 diabetes mellitus with hemoglobin A1c goal of less than 7.5% ([facility]),Type 2 diabetes mellitus with polyneuropathy ([facility]) Check [...] as of this encounter (statuses as of 11/30/2023) Active Problems Problem Noted Date Diagnosed Date [...] as of this encounter (statuses as of 11/30/2023) Resolved Problems Problem Noted Date Diagnosed Date [...] as of this encounter (statuses as of 11/30/2023) Immunizations Name Administration Dates Next Due COVID-19 mRNA, LNP-s, No Pre serve, 2-Dose Series ([employer]) 04/23/2021,08/09/2020,07/12/2020 Covid-19, Mrna, Lnp-s, Pf, B ivalent, 30 Mcg, IM, 12 yrs and above ([employer]) 05/19/2022 Pneumococcal Conjugate Vacc, 13 Valent (Prevnar) [...] do you have serious difficulty h earing? No-SAVOONGA 11/07/2023 Are you blind or do you [...] No 11/07/2023 documented as of this encounter Nursing Notes * Jess Michaels LPN - 11/30/2023 10:39 AM EDT PVR 91 mL. Pt last voided 2 hrs ago. Patient c/o of burning and frequency. Nasreen Avila PA-C notified and spoke with patient. documented in this encounter Plan of Treatment Upcoming Encounters Date Type Department Care Team (Late st Contact Info) Description 12/11/2023 2:00 PM EDT Office Visit Cardiology, [place] [address] [place] [address] Stefani Mooney CRNP [address] [place] [address] 12/19/2023 1:00 PM EDT Anticoagulation Pharmacy, [place] [address] [place] [address] Pharmacist1, [facility] [address] [place] [address] 01/08/2024 11:00 AM EDT Office Visit Gastroenterology, [facility] [address] [place] [address] Thelma Jamil PA-C 310 [facility] [place] [address] 01/21/2024 2:00 PM EDT Office Visit Endocrinology [address] [place] [address] Sakina Jones MD 100 [address] [facility] [place] [address] 01/25/2024 3:30 PM EDT Office Visit [facility] Surgery [facility] [address] [place] [address] Laney Hogue MD 200 [place] [address] 02/21/2024 10:30 AM EDT Office Visit Urology [place] [address] [place] [address] [place] [address] Nikolai Chaudhari MD [address] [place] [address] 02/25/2024 11:20 AM EDT Office Visit [facility] [address] [place] [phone] Kaiser Amanda MD [address] [place] [address] 10/21/2024 9:15 AM EDT Appointment Radiology, [address] [place] [address] 10/29/2024 9:45 AM EDT Office Visit Urology AleidaRolo [place]gu[place] [address] [place] [address] Bert Boogie Jr., MD [address] [place] [address] Scheduled Procedures Name Priority Associated Diagnoses Date/Ti [...] D LEVEL ONCE IN A LIFETIME-USE SMARTSET# 43002 Completed 07/26/2023, 02/26/2023, 01/23/2023, Additional history exists [...] this encounter Medical Devices Implanted Type Area Paediatric Physiotherapist Device Identifier Shelf Expiration Date Model / Serial / Lot Cement Bone Simplex Hv & G - [id number] Implanted:Qty: 2 on 09/02/2020 by Gianni Hubbard MD at OR [facility] Right: Hip LUDY : ORTHOPAEDICS 08/11/2021 6195-1-010 / / [id number] Spacer Ring Aclde Distal Lg 14 - [id number] Implanted:Qty: 1 on 09/02/2020 by Gianni Hubbard MD at OR [facility] Right: Hip LUDY : ORTHOPAEDICS 11/25/2024 3876-2024 / / Accolade C Cs 127 6 37/158 - [id number] Implanted:Qty: 1 on 09/02/2020 by Gianni Hubbard MD at OR [facility] Right: Hip LUDY : ORTHOPAEDICS 05/29/2023 6057-0637D / / [id number] Hip Cocr Lfit Head V40 28/+4 - [id number] Implanted:Qty: 1 on 09/02/2020 by Gianni Hubbard MD at OR [facility] Right: Hip LUDY : ORTHOPAEDICS 11/15/2024 6260-9-228 / / [id number] Hip Head Bipol r [facility] 28x52 - [id number] Implanted:Qty: 1 on 09/02/2020 by Gianni Hubbard MD at OR [facility] Right: Hip LUDY : ORTHOPAEDICS 11/25/2024 UH1-52-28 / / [id number] Lens Intraoc 17.5 - [id number] - [id number] Implanted:Qty: 1 on 03/23/2022 by Rad Morgan MD at OR [facility] Left: Eye BAUSCH & LOMB 10/11/2026 [id number] / [id number] / [id number] Lens Intraoc 18.0 - [id number] - [id number] Implanted:Qty: 1 on 03/30/2022 by Rad Morgan MD at OR [facility] Right: Eye BAUSCH & LOMB 01/11/2027 [id number] / [id number] / [id number] documented as of this encounter Visit Diagnoses Diagnosis Dysuria- Primary documented in this encounter Advance Directives [...] Power of Attor jus? No Care Teams Bookkeeping Manager Relationship Specialty Start Date End Date Kaiser Amanda MD [address] [place] [address] PCP - General Family Medicine 04/11/21 documented as of this encounter
--- OUTSIDE RECORDS SUMMARY | 2024-01-29 20:38 | External Medical Summary | Summary of Care ---
Author Name Unknown Organization [facility] Address [address] [facility] [address] Phone [phone] Care Team Providers Care Water Sponger Name Role Phone Kaiser Amanda MD Primary Care Provider [phone] Reason for Visit * Reason Onset Date Comments Medication Refill 11/22/2023 Spoke to patie nts and advised on refill and tx for eyelid irritation. Encounter Details Date Type Department Care Team (Late st Contact Info) Description 11/22/2023 Telephone MOHS Surgery [facility] [address] [place] [address] Laney Hogue MD [address] [place] [address] Medication Refill (Spoke to patients ... Allergies Active Allergy Reactions Criticality Noted Date Comments Cat Dander Itching 07/14/2016 documented as of this encounter (statuses as of 11/23/2023) Medications Medication Sig Dispensed Refills Start Date End Date Status OneTouch Ultra 2 w/Device KitIndications:Type 2 diabetes mellitus with hemoglobin A1c goal of less than 7.5% ([facility]) Testing blood sugars twice daily Dx: E11.9 1 Kit 11 06/06/2021 Active OneTouch Delica Lancets 30GIndications:Type 2 diabetes mellitus with hemoglobin A1c goal of less than 7.5% ([facility]),Type 2 diabetes mellitus with polyneuropathy ([facility] [...] less than 7.5% ([facility]) TAKE 1 TABLET BY MOUTH [...] the morning. 90 Tablet 3 08/14/2023 Active Warfarin Sodium 5 MG Oral Tablet (Coumadin) Take 1 Tablet by mouth in the morning. Active Polyethylene Glycol 3350 17 GM Oral Packet (Miralax) Mix 1 Packet in 4 to 8 ounces of any beverage and drink by mouth daily as needed for Constipation. 30 Packet 1 10/11/2023 Active Additional Information Patient not taking.Reported on 11/12/2023 Ondansetron 4 MG Oral Tablet Disintegrating (Zofran)Indications: Nausea and vomiting, unspecified vomiting type Place 1 [...] by mouth at bedtime. 60 Capsule 11/08/2023 Active Midodrine HCl 5 MG Oral Tablet (Proamatine)Indicati ons:Orthostatic hypotension Take 1 Tablet by mouth in the morning and 1 Tablet at noon and 1 Tablet in the evening. 90 Tablet 11/12/2023 Active Finasteride 5 MG Oral Tablet (Proscar)Indications :BPH with obstruction/lower urinary tract symptoms Take 1 Tablet by mouth in the morning. 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 No-[place]K 11/07/2023 Are you blind or do you [...] encounter Miscellaneous Notes * Telephone Encounter - Kaylee Thompson LPN - 11/23/2023 10:46 AM EDT Spoke to patients and advised on refill and tx for eyelid irritation. * Telephone Encounter - Laney Hogue MD - 11/23/2023 6:36 AM EDT Refill for triamcinolone sent to pharmacy (please let pt know this). Please advise pt to try vaseline for irritation on eyelids. If still itchy, can try over the counter 1% hydrocortisone ointment on skin of eyelids daily as needed. Laney Hogue MD * Telephone Encounter - Lizzie Figueredo OSA - 11/22/2023 11:11 AM EDT Received call from pt , requesting a refill of cream for abdomen TRIAMCINOLON Also asking for advice on his irritated eye lids documented in this encounter Plan of Treatment Upcoming Encounters Date Type Department Care Team (Late st Contact Info) Description 11/26/2023 8:15 AM EDT Hospital Encounter Radiology, [facility] 400 [facility] [place] [address] 11/28/2023 3:00 PM EDT [facility]tico[facility], [place] [facility] [address] Pharmacist1, [facility] [place] [facility] [address] 12/11/2023 2:00 PM EDT [facility] [place] [facility] [address] Stefani Mooney CRNP [address] [place] [address] 01/21/2024 2:00 PM EDT Office Visit Endocrinology [address] [place] [address] Sakina Jones MD [address] [place], [place] [address] 01/25/2024 3:30 PM EDT Office Visit [facility] Surgery [facility] [address] [place] [address] Laney Hogue MD 200 [place] [address] 02/21/2024 10:30 AM EDT Office Visit Urology [place] Rinaldi [place] [address] [facility] [address] [place] [address] Nikolai Chaudhari MD [address] [place] [address] 02/25/2024 11:20 AM EDT Office Visit Family Practice, [place] [facility] [place] [address] Kaiser Amanda MD [address] [place] [address] 10/21/2024 9:15 AM EDT Appointment Radiology, [facility] [address] [place] [address] 10/29/2024 9:45 AM EDT Office Visit Urology Rolo Colon [address] [place] [address] Bert Boogie Jr., MD [address] [place] [address] Scheduled Procedures Name Priority Associated Diagnoses Date/Ti [...] D LEVEL ONCE IN A LIFETIME-USE SMARTSET# 90082 Completed 07/26/2023, 02/26/2023, 01/23/2023, Additional history exists [...] encounter Medical Devices Implanted Type Area Director Digital Advertising Device Identifier Shelf Expiration Date Model / Serial / Lot Cement Bone Simplex Hv & G - [id number] Implanted:Qty: 2 on 09/02/2020 by Gianni Hubbard MD at OR [facility] Right: Hip LUDY : ORTHOPAEDICS 08/11/2021 6195-1-010 / / [id number] Spacer Ring Aclde Distal Lg 14 - [id number] Implanted:Qty: 1 on 09/02/2020 by Gianni Hubbard MD at OR [facility] Right: Hip LUDY : ORTHOPAEDICS 11/25/2024 9458-0679 / / Accolade C Cs 127 6 37/158 - [id number] Implanted:Qty: 1 on 09/02/2020 by Gianni Hubbard MD at OR [facility] Right: Hip LUDY : ORTHOPAEDICS 05/29/2023 6057-0637D / / [id number] Hip Cocr Lfit Head V40 28/+4 - [id number] Implanted:Qty: 1 on 09/02/2020 by Gianni Hubbard MD at OR [facility] Right: Hip LUDY : ORTHOPAEDICS 11/15/2024 6260-9-228 / / [id number] Hip Head Bipol Uhr Uni 28x52 - [id number] Implanted:Qty: 1 on 09/02/2020 by Gianni Hubbard MD at OR [facility] Right: Hip LUDY : ORTHOPAEDICS 11/25/2024 UH1-52-28 / / [id number] Lens Intraoc 17.5 - [id number] - [id number] Implanted:Qty: 1 on 03/23/2022 by Rad Morgan MD at OR [facility] Left: Eye BAUSCH & LOMB 10/11/2026 [id number] / [id number] / [id number] Lens Intraoc 18.0 - [id number] - [id number] Implanted:Qty: 1 on 03/30/2022 by Rad Morgan MD at OR [facility] Right: Eye BAUSCH & LOMB 01/11/2027 [id number] / [id number] / [id number] documented as of this encounter Advance Directives [...] Power of Attor jus? No Care Teams Water Sponger Relationship Specialty Start Date End Date Kaiser Amanda MD [address] [place] [address] PCP - General Family Medicine 04/11/21 documented as of this encounter
--- OUTSIDE RECORDS SUMMARY | 2024-01-29 20:38 | External Medical Summary | Summary of Care ---
Author Name Unknown Organization [facility] Address [address] [facility] [address] Phone [phone] Care Team Providers Care Customer Assistance Representative Name Role Phone Kaiser Amanda MD Primary Care Provider [phone] Reason for Visit * Reason Onset Date Comments Medication Refill 11/22/2023 Spoke to patie nts and advised on refill and tx for eyelid irritation. Encounter Details Date Type Department Care Team (Late st Contact Info) Description 11/22/2023 Telephone [facility] Surgery [facility] [address] [place] [address] Laney Hogue MD [address] [place] [address] Medication Refill (Spoke to patients ... Allergies Active Allergy Reactions Criticality Noted Date Comments Cat Dander Itching 07/14/2016 documented as of this encounter (statuses as of 11/23/2023) Medications Medication Sig Dispensed Refills Start Date End Date Status OneTouch Ultra 2 w/Device KitIndications:Type 2 diabetes mellitus with hemoglobin A1c goal of less than 7.5% ([facility]) Testing blood sugars twice daily Dx: E11.9 1 Kit 11 06/06/2021 Active OneTouch Delica Lancets 30GIndications:Type 2 diabetes mellitus with hemoglobin A1c goal of less than 7.5% ([facility]),Type 2 diabetes mellitus with polyneuropathy ([facility]) Check BS once daily E11.9 [...] goal of less than 7.5% ([facility]) TAKE 1 TABLET BY MOUTH [...] goal of less than 7.5% ([facility]) USE STRIP TO CHECK GLUCOSE [...] do you have serious difficulty h earing? No-[place] 11/07/2023 Are you blind or do you [...] encounter Miscellaneous Notes * Telephone Encounter - Laney Hogue MD [...] 11/26/2023 8:15 AM EDT Hospital Encounter Radiology, [address] [address] 11/28/2023 3:00 PM EDT Anticoagulation Pharmacy, [place] [address] [address] Pharmacist1, [facility] [place] [address] [place] [address] 12/11/2023 2:00 PM EDT Office Visit Cardiology, [place] 400 [facility] [place] [address] Stefani Mooney CRNP 400 [facility] [place] [address] 01/21/2024 2:00 PM EDT Office Visit Endocrinology [address] [place] [address] Sakina Jones MD [address] [place] [address] 01/25/2024 3:30 PM EDT Office Visit [facility] Surgery [facility] 200 [place] [address] Laney Hogue MD 200 [place] [address] 02/21/2024 10:30 AM EDT Office Visit Urology [place] [address] [place] [address] [place] [address] Nikolai Chaudhari MD [address] [place] [place] [address] 02/25/2024 11:20 AM EDT Office Visit Family Practice, [place] [address] [phone] Kaiser Amanda MD [address] [place] [address] 10/21/2024 9:15 AM EDT Appointment Radiology, [address] [place] [address] 10/29/2024 9:45 AM EDT Office Visit Urology Rolo Colon [address] [place] [address] Bert Boogie Jr., MD [address] [place] [place] [address] Scheduled Procedures Name Priority Associated Diagnoses Date/Ti [...] D LEVEL ONCE IN A LIFETIME-USE SMARTSET# 35470 Completed 07/26/2023, 02/26/2023, 01/23/2023, Additional history exists [...] this encounter Medical Devices Implanted Type Area Trader Device Identifier Shelf Expiration Date Model / Serial / Lot Cement Bone Simplex Hv & G - [id number] Implanted:Qty: 2 on 09/02/2020 by Gianni Hubbard MD at OR [facility] Right: Hip LUDY : ORTHOPAEDICS 08/11/2021 6195-1-010 / / [id number] Spacer Ring Aclde Distal Lg 14 - [id number] Implanted:Qty: 1 on 09/02/2020 by Gianni Hubbard MD at OR [facility] Right: Hip LUDY : ORTHOPAEDICS 11/25/2024 6896-8609 / / Accolade C Cs 127 6 37/158 - [id number] Implanted:Qty: 1 on 09/02/2020 by Gianni Hubbard MD at OR [facility] Right: Hip LUDY : ORTHOPAEDICS 05/29/2023 6057-0637D / / [id number] Hip Cocr Lfit Head V40 28/+4 - [id number] Implanted:Qty: 1 on 09/02/2020 by Gianni Hubbard MD at OR [facility] Right: Hip LUDY : ORTHOPAEDICS 11/15/2024 6260-9-228 / / [id number] Hip Head Bipol r [facility] 28x52 - [id number] Implanted:Qty: 1 on 09/02/2020 by Gianni Hubbard MD at OR [facility] Right: Hip LUDY : ORTHOPAEDICS 11/25/2024 UH1-52-28 / / [id number] Lens Intraoc 17.5 - [id number] - [id number] Implanted:Qty: 1 on 03/23/2022 by Rad Morgan MD at OR [facility] Left: Eye BAUSCH & LOMB 10/11/2026 [id number] / [id number] / [id number] Lens Intraoc 18.0 - [id number] - [id number] Implanted:Qty: 1 on 03/30/2022 by Rad Morgan MD at OR [facility] Right: Eye BAUSCH & LOMB 01/11/2027 [id number] / [id number] / [id number] documented as of this encounter Advance Directives [...] Power of Attor jus? No Care Teams Customer Assistance Representative Relationship Specialty Start Date End Date Kasier Amanda MD [address] [place] [id number] PCP - General Family Medicine 04/11/21 documented as of this encounter
--- OUTSIDE RECORDS SUMMARY | 2024-01-29 20:38 | External Medical Summary | Summary of Care ---
Author Name Unknown Organization [facility] Address [address] [facility] [address] Phone [phone] Care Team Providers Care Kettle Tender Name Role Phone Kaiser Amanda MD Primary Care Provider [phone] [phone] Reason for Visit * Reason Onset Date Comments Test Results 2023 Encounter Details Date Type Department Care Team (Late st Contact Info) Description 2023 Telephone CardiologyRolo 400 [facility] [place] [address] Stefani Mooney CRNP 400 [place] [address] Test Results Allergies Active Allergy Reactions Criticality Noted Date Comments Cat Dander Itching 07/14/2016 documented as of this encounter (statuses as of 2023) Medications Medication Sig Dispensed Refills Start Date End Date Status Cardium TherapeuticsTouch Ultra 2 w/Device KitIndications:Type 2 diabetes mellitus [...] of less than 7.5% ([facility]) TAKE 1 TABLET BY MOUTH [...] as of this encounter (statuses as of 2023) Active Problems Problem Noted Date Diagnosed Date [...] as of this encounter (statuses as of 2023) Resolved Problems Problem Noted Date Diagnosed Date [...] as of this encounter (statuses as of 2023) Immunizations Name Administration Dates Next Due COVID-19 [...] have serious difficulty h earing? No-[place] 11/07/2023 Are you blind or do you [...] encounter Miscellaneous Notes * Telephone Encounter - Courtney Rockwell NRCMA - 2023 8:56 AM EDT Pt notified via phone and states understanding. FRANCISCO JAVIER Bangura * Telephone Encounter - Courtney Rockwell NRCMA - 2023 8:33 AM EDT ----- Message from Stefani Mooney sent at 2023 7:39 AM EDT ----- Stress test is normal. EF is normal. documented in this encounter Plan of Treatment Upcoming Encounters Date Type Department Care Team (Late st Contact Info) Description 11/28/2023 3:00 PM EDT Anticoagulation Pharmacy, [address] [place] [address] Pharmacist1, [facility] 21 [place] [address] 12/11/2023 2:00 PM EDT Office Visit Cardiology, [address] [address] Stefani Mooney CRNP 400 [place] [address] 01/21/2024 2:00 PM EDT Office Visit Endocrinology Alyssa [address] [place] [address] Sakina Jones MD 100 [address] [facility] [place], [place] [id number] 01/25/2024 3:30 PM EDT Office Visit [facility] Surgery [facility] 200 [place] [address] Laney Hogue MD 200 [place] [address] 02/21/2024 10:30 AM EDT Office Visit UrologRolo Crespo [address] [place] 270 [place] [address] Nikolai Chaudhari MD 27 [place] [address] 02/25/2024 11:20 AM EDT Office Visit [facility] 21 [facility] [place] [id number] Kaiser Amanda MD 21 [facility] [place] [address] 10/21/2024 9:15 AM EDT Appointment Radiology, [facility] 400 [facility] [place] [address] 10/29/2024 9:45 AM EDT Office Visit UrologRolo Crespo [address] [place] 270 [place] [address] Bert Boogie Jr., MD 27 [place] [address] Scheduled Procedures Name Priority Associated Diagnoses Date/Ti [...] 07/07/2021, Additional history exists GFR 11/07/2024 11/08/2023, 06/2 10/2023, 10/22/2023, Additional history exists DXA Scan 01/25/2025 01/25/2023, 090 01/2021, 12/10/2018 Colonoscopy 03/16/2025 03/16/2022, 1107/2021, 08/06/2009 Colorectal Cancer Screening 03/16/2025 Lipid Panel 02/27/2028 02/26/2023, 120 08/2021, 05/26/2021, Additional history exists DTaP,Tdap,and Td Vaccines (3 - Td or Tdap) 12/10/2029 12/11/2019, 06/03/2014 Pneumococcal Vaccine: 65+ Years Completed 05/22/2017, 02/23/2016, 09/25/2011 Zoster Vaccines Completed 03/26/2019, 12/12, 09/27/2011 VITAMIN D LEVEL ONCE IN A LIFETIME-USE SMARTSET# [id number] Completed 07/26/2023, 02/26/2023, 01/23/2023, Additional history exists [...] this encounter Medical Devices Implanted Type Area Medical Referral Coordinator Device Identifier Shelf Expiration Date Model / Serial / Lot Cement Bone Simplex Hv & G - [id number] Implanted:Qty: 2 on 09/02/2020 by Gianni Hubbard MD at OR [facility] Right: Hip LUDY : ORTHOPAEDICS 08/11/2021 6195-1-010 / / [id number] Spacer Ring Aclde Distal Lg 14 - [id number] Implanted:Qty: 1 on 09/02/2020 by Gianni Hubbard MD at OR [facility] Right: Hip LUDY : ORTHOPAEDICS 11/25/2024 [id number] / / Accolade C Cs 127 6 37/158 - [id number] Implanted:Qty: 1 on 09/02/2020 by Gianni Hubbard MD at OR [facility] Right: Hip LUDY : ORTHOPAEDICS 05/29/2023 [id number] / / [id number] Hip Cocr Lfit Head V40 28/+4 - [id number] Implanted:Qty: 1 on 09/02/2020 by Gianni Hubbard MD at OR [facility] Right: Hip LUDY : ORTHOPAEDICS 11/15/2024 6260-9-228 / / [id number] Hip Head Bipol Uhr Uni 28x52 - [id number] Implanted:Qty: 1 on 09/02/2020 by Gianni Hubbard MD at OR [facility] Right: Hip LUDY : ORTHOPAEDICS 11/25/2024 UH1-52-28 / / [id number] Lens Intraoc 17.5 - [id number] - [id number] Implanted:Qty: 1 on 03/23/2022 by Rad Morgan MD at OR [facility] Left: Eye BAUSCH & LOMB 10/11/2026 [id number] / [id number] / [id number] Lens Intraoc 18.0 - [id number] - [id number] Implanted:Qty: 1 on 03/30/2022 by Rad Morgan MD at OR [facility] Right: Eye BAUSCH & LOMB 01/11/2027 [id number] / [id number] / [id number] documented as of this encounter Advance Directives [...] Power of Attor jus? No Care Teams Kettle Tender Relationship Specialty Start Date End Date Kaiser Amanda MD 21 [place] [id number] PCP - General Family Medicine 04/11/21 documented as of this encounter
--- OUTSIDE RECORDS SUMMARY | 2024-01-29 20:38 | External Medical Summary ---
Author Name Unknown Address Unknown Organization K01:[facility] - [address] [place] [address] Laboratory Report Ordering Provider Test Date Status BRIDGETT TAI 11/29/2023 11:46:00 Final Observation Date Value Abnormality Reference (Units ) Status Bacteria identified in Specimen by Culture 11/29/2023 11:46:00 [id number]^KLEBSIELL A PNEUMONIAE Abnormal Final >100,000 colonies/mL Klebsie lla pneumoniae Performing Location [facility] - [address] [place] [address] Ordering Provider Test Date Status BRIDGETT TAI 11/29/2023 11:46:00 Final Observation Date Value Abnormality Reference (Units ) Status Ampicillin + Sulbactam 11/29/2023 11:46:00 4 Susceptible Final Cefazolin 11/29/2023 11:46:00 <=4 Susceptible Final Cefepime susceptibility 11/29/2023 11:46:00 <=1 Susceptible Final Ceftriaxone suceptibility 11/29/2023 11:46:00 <=1 Susceptible Final Ciprofloxacin 11/29/2023 11:46:00 <=0.25 Susceptible Final Due to serious side effects, the FDA has advised against using Ciprofloxacin to treat uncomplicated UTIs and respiratory tract infections unless there are no alternative treatment options. Gentamicin susceptibility 11/29/2023 11:46:00 <=1 Susc eptible Final Nitrofurantoin susceptibility 11/29/2023 11:46:00 64 Intermediate Final Piperacillin + Tazobactamsusceptibility 11/29/2023 11:46:00 <=4 Susceptible Final TMP-SMZ susceptibility 11/29/2023 11:46:00 <=20 Suscept ible Final Test: Culture, Urine, Quanti tative
Specimen Source: Urine, Clean Catch
Specimen Type: Urine
Specimen Date: 11/29/2023 1146
Result Date: 12/01/2023 1748
Result Status: Final result
Abnormal: Yes
Resulting Lab: [facility]
[address]
[facility] [address]

CULTURE

>100,000 colonies/mL Klebsiella pneumoniae (Abnormal)

SUSCEPTIBILITY

[...] Performing Location LAB[facility]ATORY [facility] - [address] [facility] [address]
--- OUTSIDE RECORDS SUMMARY | 2024-01-29 20:38 | External Medical Summary | Summary of Care ---
Author Name Unknown Organization [facility] Address [address] [facility] [address] Phone [phone] Care Team Providers Care Floor Worker Well Service Name Role Phone Kaiser Amanda MD Primary Care Provider [phone] [phone] Reason for Visit * Reason Onset Date Comments Medication Refill 11/22/2023 Encounter Details Date Type Department Care Team (Late st Contact Info) Description 11/22/2023 Telephone [facility] Surgery [facility] 200 [place] [address] Laney Hogue MD 200 [place] [address] Medication Refill Allergies Active Allergy Reactions Criticality Noted Date Comments Cat Dander Itching 07/14/2016 documented as of this encounter (statuses as of 11/23/2023) Medications Medication Sig Dispensed Refills Start Date End Date Status OneTouch Ultra 2 w/Device KitIndications:Type 2 diabetes mellitus with hemoglobin A1c goal of less than 7.5% ([facility]) Testing blood sugars twice daily Dx: E11.9 1 Kit 11 06/06/2021 Active OneTouch Delica Lancets 30GIndications:Type 2 diabetes mellitus with hemoglobin A1c goal of less than 7.5% ([facility]),Type 2 diabetes mellitus with polyneuropathy ([facility]) Check BS once daily E11.9 100 Each [...] A1c goal of less than 7.5% ([facility]) TAKE 1 TABLET BY MOUTH DAILY. TAKE [...] do you have serious difficulty h earing? No-[place] 11/07/2023 Are you blind or do [...] Contact Info) Description 11/26/2023 8:15 AM EDT Appointment Radiology, [address] [place] [address] 11/28/2023 3:00 PM EDT Anticoagulation Pharmacy, [address] [place] [address] Pharmacist1, [facility] 21 [place] [address] 12/11/2023 2:00 PM EDT Office Visit Cardiology, [place] 400 [place] [address] Stefani Mooney CRNP 400 [place] [address] 01/21/2024 2:00 PM EDT Office Visit Endocrinology Alyssa [address] [place] [address] Sakina Jones MD 100 [facility] [place], [place] [id number] 01/25/2024 3:30 PM EDT Office Visit [facility] Surgery [facility] 200 [place] [address] Laney Hogue MD 200 [place] [address] 02/21/2024 10:30 AM EDT Office Visit Urology Aleida Rinaldi [place] [address] [place] [address] [place] [address] Nikolai Chaudhari MD 27 [place] [address] 02/25/2024 11:20 AM EDT Office Visit Family [facility], [place] 21 [place] [phone] Kaiser Amanda MD 21 [place] [address] 10/21/2024 9:15 AM EDT Appointment Radiology, [facility] 400 [facility] [place] [address] 10/29/2024 9:45 AM EDT Office Visit Urology Ale[place] Rolo Rinaldi [address] [place] 270 [place] [address] Bert Boogie Jr., MD [address] [place] [address] Scheduled Procedures Name Priority Associated Diagnoses Date/Ti [...] D LEVEL ONCE IN A LIFETIME-USE SMARTSET# [id number] Completed 07/26/2023, 02/26/2023, 01/23/2023, Additional history exists [...] this encounter Medical Devices Implanted Type Area Development Associate Device Identifier Shelf Expiration Date Model / Serial / Lot Cement Bone Simplex Hv & G - [id number] Implanted:Qty: 2 on 09/02/2020 by Gianni Hubbard MD at OR [facility] Right: Hip LUDY : ORTHOPAEDICS 08/11/2021 6195-1-010 / / [id number] Spacer Ring Aclde Distal Lg 14 - [id number] Implanted:Qty: 1 on 09/02/2020 by Gianni Hubbard MD at OR [facility] Right: Hip LUDY : ORTHOPAEDICS 11/25/2024 9895-3444 / / Accolade C Cs 127 6 37/158 - [id number] Implanted:Qty: 1 on 09/02/2020 by Gianni Hubbard MD at OR [facility] Right: Hip LUDY : ORTHOPAEDICS 05/29/2023 6057-0637D / / [id number] Hip Cocr Lfit Head V40 28/+4 - [id number] Implanted:Qty: 1 on 09/02/2020 by Gianni Hubbard MD at OR [facility] Right: Hip LUDY : ORTHOPAEDICS 11/15/2024 6260-9-228 / / [id number] Hip Head Bipol r [facility] 28x52 - [id number] Implanted:Qty: 1 on 09/02/2020 by Gianni Hubbard MD at OR [facility] Right: Hip LUDY : ORTHOPAEDICS 11/25/2024 UH1-52-28 / / [id number] Lens Intraoc 17.5 - [id number] - [id number] Implanted:Qty: 1 on 03/23/2022 by Rad Morgan MD at OR [facility] Left: Eye BAUSCH & LOMB 10/11/2026 [id number] / [id number] / [id number] Lens Intraoc 18.0 - [id number] - [id number] Implanted:Qty: 1 on 03/30/2022 by Rad Morgan MD at OR [facility] Right: Eye BAUSCH & LOMB 01/11/2027 [id number] / [id number] / [id number] documented as of this encounter Advance Directives [...] Power of Attor jus? No Care Teams Floor Worker Well Service Relationship Specialty Start Date End Date Kaiser Amanda MD 21 [place] [address] PCP - General Family Medicine 04/11/21 documented as of this encounter
--- OUTSIDE RECORDS SUMMARY | 2024-01-29 20:38 | External Medical Summary ---
Author Name Unknown Address Unknown Organization : Laboratory Report Ordering Provider Test Date Status [facility]OD IRBY 11/28/2023 15:03:49 Final Therapeutic ranges for non-o perative patients:
Prophylaxsis/treatment of DVT: (Range:2.0-3.0)
Treatment of pulmonary embolism:(Range:2.0-3.0)
Prevention of systemic embolism from:
-tissue heart valves
-acute myocardial infarction
-valvular heart disease
-atrial fibrillation
(Range: 2.0-3.0)
Mechanical prosthetic valves: (Range: 2.5-3.5) Observation Date Value Abnormality Reference (Units ) Status INR in Capillary blood by Coagulation assay 11/28/2023 15:03:49 3.9 (INR) Final Performing Location
--- OUTSIDE RECORDS SUMMARY | 2024-01-29 20:38 | External Medical Summary | Summary of Care ---
Author Name Unknown Organization [facility] Address [address] [facility] [place] [address] Phone [phone] Care Team Providers Care Mult Au Matic Operator Name Role Phone Kaiser Amanda MD Primary Care Provider [phone] [phone] Reason for Referral * Precert (Within 10 days (routine)) - Authorized Specialty Diagnoses / Procedures Referred By Contac t Referred To Contact Radiology Diagnoses Hospital discharge follow-up Cardiomyopathy, unspecified type (HCC) Abnormal echocardiogram Chest pain, unspecified type Procedures NM MYOCARD PERF IMG SPECT MULT STUDIES WITH PHARM Stefani Jimenez CRNP 400 [place] [address] Referral ID Status Reason Start Date Expiration Date V isits Requested Visits Authorized [id number] Authorized Precert 10/05/2023 999 999 Reason for Visit * Precert (Within 10 days (routine)) - Authorized Specialty Diagnoses / Procedures Referred By Contac t Referred To Contact Radiology Diagnoses Hospital discharge follow-up Cardiomyopathy, unspecified type (HCC) Abnormal echocardiogram Chest pain, unspecified type Procedures NM MYOCARD PERF IMG SPECT MULT STUDIES WITH PHARM Stefani Jimenez CRNP 400 [place] [address] Referral ID Status Reason Start Date Expiration Date V isits Requested Visits Authorized [id number] Authorized Precert 10/05/2023 999 999 Encounter Details Date Type Department Care Team (Latest Contact Info) Description 11/26/2023 7:55 AM EDT - 11/26/2023 11:59 PM EDT Hospital Encounter Radiology, [facility] [address] [place] [address] Discharge Disposition: Home - Self Care Allergies Active Allergy Reactions Criticality Noted Date Comments Cat Dander Itching 07/14/2016 documented as of this encounter (statuses as of 2023) Medications Medication Sig Dispensed Refills Start Date End Date Status HuddleTouch Ultra 2 w/Device KitIndications:Type 2 diabetes mellitus with hemoglobin A1c goal of less than 7.5% ([facility]) Testing blood sugars twice daily Dx: E11.9 1 Kit 11 06/06/2021 Active HuddleTouch Delica Lancets 30GIndications:Type 2 diabetes mellitus with hemoglobin A1c goal of less than 7.5% ([facility]),Type 2 diabetes mellitus with polyneuropathy ([facility]) Check BS once daily E11.9 100 [...] goal of less than 7.5% ([facility]) TAKE 1 TABLET BY MOUTH DAILY. [...] Active Sincere Moeller In Vitro Strip (Glucose Blood)Indications:Ty pe 2 [...] MG Sublingual Tablet Sublingual (Nitrostat)Indicatio ns:Stable angina ([facility]) Place 1 Tablet under the tongue [...] as needed 80 g 5 11/23/2023 Active Hospital, Clinic, or Other Facility Administered Medication Ordered Dose Route Frequency Start Date End Date Status Regadenoson (Lexiscan) inj 0.4 mgIndications:Chest pain, unspecified type 0.4 mg IV PUSH ONCE 11/26/2023 11/26/2023 Ended sodium chloride 0.9 % flush/inj 10 mLIndications:Chest pain, unspecified type 10 mL IV PUSH ONCE PRN 11/26/2023 11/26/2023 Ended documented as of this encounter (statuses as [...] mRNA, LNP-s, No Pre serve, 2-Dose Series (Keego) 04/23/2021,08/09/2020,07/12/2020 Covid-19, Mrna, Lnp-s, Pf, B ivalent, [...] No 10/30/2023 Does the household have a [facility] source of income? (Household - for ages [...] Sign Reading Time Taken Comments Blood Pressure 130/74 11/26/2023 10:00 AM EDT Pulse 74 11/26/2023 10:00 AM EDT Temperature - - Respiratory Rate - - Oxygen Saturation - - Inhaled Oxygen Concentration - - Weight - - Height - - Body Mass Index - - documented in this encounter Functional Status Functional Status Response Date of Assess ment Are you deaf or do you have serious difficulty h earing? No-[facility] 11/07/2023 Are you blind or do [...] as of this encounter Miscellaneous Notes * Ancillary Progress Note - Sandee Bearden RN - 11/26/2023 8:15 AM EDT Stress part of nuclear done. * Result Encounter Note - Stefani Mooney CRNP - 11/26/2023 8:15 AM EDT Stress test is normal. EF is normal. documented in this encounter Plan of Treatment Upcoming Encounters Date Type Department Care Team (Late st Contact Info) Description 11/28/2023 3:00 PM EDT Anticoagulation Pharmacy, [address] [address] Pharmacist1, [facility] [place] 21 [place] [address] 12/11/2023 2:00 PM EDT Office Visit Cardiology, [place] 400 [place] [address] Stefani Mooney CRNP 400 [place] [address] 01/21/2024 2:00 PM EDT Office Visit Endocrinology [address] [place] [phone] Sakina Jones MD [address] [facility] [id number] 01/25/2024 3:30 PM EDT Office Visit [facility] Surgery [facility] [address] [place] [address] Laney Hogue MD [address] [facility] [place] [address] 02/21/2024 10:30 AM EDT Office Visit UrologRolo Crespo 27 [facility] [place] 270 [place] [address] Nikolai Chaudhari MD 27 [place] [address] 02/25/2024 11:20 AM EDT Office Visit [facility] 21 [facility] C[address]riano RodriguezwDUSTIN [place] [phone] Kaiser Amanda MD 21 [facility] [place] [address] 10/21/2024 9:15 AM EDT Appointment Radiology, [address] [place] [address] 10/29/2024 9:45 AM EDT Office Visit Rolo Sun [address] [place] [address] [place] [address] Bert Boogie Jr., MD 27 [place] [address] Scheduled Procedures Name Priority Associated Diagnoses Date/Ti [...] 07/07/2021, Additional history exists GFR 11/07/2024 11/08/2023, 062 10/2023, 10/22/2023, Additional history exists DXA Scan [...] D LEVEL ONCE IN A LIFETIME-USE SMARTSET# [id number] Completed 07/26/2023, 02/26/2023, 01/23/2023, Additional history exists [...] this encounter Medical Devices Implanted Type Area Seed Analysis Laboratory Assistant Device Identifier Shelf Expiration Date Model / Serial / Lot Cement Bone Simplex Hv & G - [id number] Implanted:Qty: 2 on 09/02/2020 by Gianni Hubbard MD at OR [facility] Right: Hip LUDY : ORTHOPAEDICS 08/11/2021 6195-1-010 / / [id number] Spacer Ring Aclde Distal Lg 14 - [id number] Implanted:Qty: 1 on 09/02/2020 by Gianni Hubbard MD at OR [facility] Right: Hip LUDY : ORTHOPAEDICS 11/25/2024 0000-2257 / / Accolade C Cs 127 6 37/158 - [id number] Implanted:Qty: 1 on 09/02/2020 by Gianni Hubbard MD at OR [facility] Right: Hip LUDY : ORTHOPAEDICS 05/29/2023 6057-0637D / / [id number] Hip Cocr Lfit Head V40 28/+4 - [id number] Implanted:Qty: 1 on 09/02/2020 by Gianni Hubbard MD at OR [facility] Right: Hip LUDY : ORTHOPAEDICS 11/15/2024 6260-9-228 / / [id number] Hip Head Bipol Uhr Uni 28x52 - [id number] Implanted:Qty: 1 on 09/02/2020 by Gianni Hubbard MD at OR [facility] Right: Hip LUDY : ORTHOPAEDICS 11/25/2024 UH1-52-28 / / [id number] Lens Intraoc 17.5 - [id number] - [id number] Implanted:Qty: 1 on 03/23/2022 by Rad Morgan MD at OR [facility] Left: Eye BAUSCH & LOMB 10/11/2026 [id number] / [id number] / [id number] Lens Intraoc 18.0 - [id number] - [id number] Implanted:Qty: 1 on 03/30/2022 by Rad Morgan MD at OR [facility] Right: Eye BAUSCH & LOMB 01/11/2027 [id number] / [id number] / [id number] documented as of this encounter Procedures Procedure Name Priority Date/Time Associated Diagnosis Comments NM MYOCARDIAL PERFUSION IMAGING SPECT MULTIPLE STUDIES WITH PHARMACOLOGIC INTERVENTION Routine 11/26/2023 1:41 PM EDT Hospital discharge follow-up Cardiomyopathy, unspecified type (HCC) Abnormal echocardiogram Chest pain, unspecified type NM MYOCARDIAL PERFUSION IMAGING SPECT MULTIPLE STUDIES WITH PHARMACOLOGIC INTERVENTION Routine 11/26/2023 9:20 AM EDT documented in this encounter Results * NM MYOCARD PERF IMG SPECT MULT STUDIES WITH PHARM INTERV (11/26/2023 1:41 PM EDT) Narrative Scheduling, Silent - 11/26/2023 1:41 PM EDT Results can be viewed in the patient's cardiology tab of Chart Review for this date of service. Stefani FLORES NUCLEAR MED * NM MYOCARDIAL PERFUSION IMAGING SPECT MULTIPLE STUDIES WITH PHARMACOLOGIC INTERVENTION (11/26/2023 9:20 AM EDT) LEFT VENTRICULAR EJECTION FRACTION 55 % [facility] 11/26/2023 9:20 AM EDT Stefani PALACIOS RAD NUCLEAR MED [facility] CARDIOLOGY documented in this encounter Visit Diagnoses Diagnosis Chest pain, unspecified type- Primary Hospital discharge follow-up Other follow-up examination Cardiomyopathy, unspecified type (HCC) Abnormal echocardiogram Nonspecific (abnormal) findings on radiological and other examination of other intrathoracic organs documented in this encounter Administered Medications Inactive Administered Medications - up to 3 most recent administrations Medication Order MAR Action Action Date Dose Rate Site Regadenoson (Lexiscan) inj 0.4 mg 0.4 mg, IV Push, ONCE, On Sun11/26/23 at 0826, For 1 dose, Inject over 10 seconds with 5-10 ml saline flush immediately after, Cardiac Studies_HODHOV Given 11/26/2023 9:54 AM EDT 0.4 mg sodium chloride 0.9 % flush/inj 10 mL 10 mL, IV Push, ONCE PRN Other, For Nuclear Stress Only - To follow Lexiscan Administration, Starting on Sun11/26/23 at 0824, Until Sun11/26/23 at 1023, For 2 hours, 5-10 ml Saline Flush to Immediately Follow Lexiscan Injection, Cardiac Studies_HODHOV Given 11/26/2023 9:54 AM EDT 10 mL Technetium Tc 99m Sestamibi (Sestamibi) inj 28 millicurie 28 millicurie, Intravenous, ONCE, On Sun11/26/23 at 0819, For 1 dose, Radiology Medication Routing (Non-IR) Given 11/26/2023 8:19 AM EDT 28 millicuries Technetium Tc 99m Sestamibi (Sestamibi) inj 8 millicurie 8 millicurie, Intravenous, ONCE, On Sun11/26/23 at 0819, For 1 dose, Radiology Medication Routing (Non-IR) Given 11/26/2023 8:19 AM EDT 8 millicuries documented in this encounter Advance Directives * [...] Power of Attor jus? No Care Teams Mult Au Matic Operator Relationship Specialty Start Date End Date Kaiser Amanda MD 21 [place] [id number] PCP - General Family Medicine 04/11/21 documented as of this encounter
--- OUTSIDE RECORDS SUMMARY | 2024-01-29 20:38 | External Medical Summary ---
Author Name Unknown Address Unknown Organization K1F:LABORATORY GL - [address] [facility]. [place] [address] Laboratory Report Ordering Provider Test Date Status BRIDGETT TAI 11/29/2023 11:46:00 Final Observation Date Value Abnormality Reference (Units ) Status Color of Urine by Auto 11/29/2023 11:46:00 Yellow Light Yellow, Yellow, Dark Yellow Final Clarity, Urine 11/29/2023 11:46:00 Slightly Cloudy Abnormal Clear Final Glucose [Mass/volume] in Urine by Automated test strip 11/29/2023 11:46:00 Negative Negative (mg/dL) Final Bilirubin.total [Presence] in Urine by Automated test strip 11/29/2023 11:46:00 Negative Negative Final Ketones [Mass/volume] in Urine by Automated test strip 11/29/2023 11:46:00 Negative Negative (mg/dL) Final Specific gravity, Urine 11/29/2023 11:46:00 1.008 1.003-1.030 Final Hemoglobin [Presence] in Urine by Automated test strip 11/29/2023 11:46:00 Small Abnormal Negative Final pH, Urine 11/29/2023 11:46:00 7.0 5.0-7.5 (Units) Final Protein [Mass/volume] in Urine by Automated test strip 11/29/2023 11:46:00 Trace Abnormal Negative (mg/dL) Final Urobilinogen [Mass/volume] in Urine by Automated test strip 11/29/2023 11:46:00 1.0 0.2, 1.0 (mg/dL) Final Nitrite [Presence] in Urine by Automated test strip 11/29/2023 11:46:00 Negative Negative Final Leukocyte esterase [Presence] in Urine by Automated test strip 11/29/2023 11:46:00 Large Abnormal Negative Final RBC, Urine 11/29/2023 11:46:00 3-5 Abnormal 0-2 (/HPF) Final WBC, Urine 11/29/2023 11:46:00 50+ Abnormal 0-2 (/HPF) Final Bacteria [#/area] in Urine sediment by Microscopy high power field 11/29/2023 11:46:00 >200 Abnormal 0-25 (/HPF) Final CULTURE, URINE - [facility] 11/29/2023 11:46:00 Final Quantitative urine culture t o be performed Performing Location LABORATORY [facility] - [facility] [place] [address]
--- OUTSIDE RECORDS SUMMARY | 2024-01-29 20:38 | External Medical Summary | Summary of Care ---
Author Name Unknown Organization [facility] Address [address] [facility] [place] [address] Phone [phone] Care Team Providers Care Software Engineer Web Applications Name Role Phone Kaiser Amanda MD Primary Care Provider +1 [phone] Reason for Visit * Reason Comments Other Voiding trial Encounter Details Date Type Department Care Team (Late st Contact Info) Description 11/22/2023 9:00 AM EDT Nurse Only Urology [place] Colon [address] [place] [address] [place] [address] Rolo Nurse Urology [address] [place] [address] [place] [address] Other (Voiding trial ) Allergies Active Allergy Reactions Criticality Noted Date Comments Cat Dander Itching 07/14/2016 documented as of this encounter (statuses as of 11/22/2023) Medications Medication Sig Dispensed Refills Start Date [...] of less than 7.5% ([facility]) TAKE 1 TABLET BY MOUTH DAILY. TAKE [...] the morning. 90 Tablet 3 11/12/2023 Active documented as of this encounter (statuses as of 11/22/2023) Active Problems Problem Noted Date Diagnosed Date [...] as of this encounter (statuses as of 11/22/2023) Resolved Problems Problem Noted Date Diagnosed Date [...] as of this encounter (statuses as of 11/22/2023) Immunizations Name Administration Dates Next Due COVID-19 [...] do you have serious difficulty h earing? No-[facility] 11/07/2023 Are you blind or do you [...] as of this encounter Nursing Notes * Bree Elder LPN - 11/22/2023 9:11 AM EDT Patient's bladder was instilled 180 cc of NSS. Catheter balloon then deflated and catheter removed.Patient proceeded to void, spontaneously for approximately 150 cc of pink urine. Patient tolerated procedure well. Dr Nikolai Chaudhari and Bert Boogie made aware. documented in this encounter Plan of Treatment Upcoming Encounters Date Type Department Care Team (Late st Contact Info) Description 11/26/2023 8:15 AM EDT Appointment [address], [address] [address] 11/28/2023 3:00 PM EDT Anticoagulation Pharmacy, [address] [place] [address] Pharmacist1, [facility] [address] [address] 12/11/2023 2:00 PM EDT Office Visit Cardiology, [address] [address] Stefani Mooney CRNP [address] [place] [address] 01/21/2024 2:00 PM EDT Office Visit Endocrinology Natalie [address] [place] [phone] Sakina Jones MD 100 [facility] [place] [address] 01/25/2024 3:30 PM EDT Office Visit [facility] Surgery [facility] [address] [place] [address] Laney Hogue MD [address] [place] [address] 02/21/2024 10:30 AM EDT Office Visit [place] [address] [place] [address] [place] [address] Nikolai Chaudhari MD [address] [facility] [place] [address] 02/25/2024 11:20 AM EDT Office Visit [facility] [address] [place] [address] Kaiser Amanda MD [address] [place] [address] 10/21/2024 9:15 AM EDT Appointment Radiology, [address] [place] [address] 10/29/2024 9:45 AM EDT Office Visit Urology [place] Colon [address] [place] [address] [place] [address] Bert Boogie Jr., MD [address] [place] [address] Scheduled Procedures Name Priority Associated Diagnoses Date/Ti me COLONOSCOPY FLEXIBLE PROXIMA L DIAGNOSTIC Recall History of colonic polyps Health Maintenance Due Date Last Done Comments Cologuard 11/28/1995 Fecal Occult Blood Test 11/28/1995 Sigmoidoscopy 11/28/1995 COVID-19 Vaccine (5 - 2023-24 season) 2023 05/19/2022, 04/23/2021, 08/09/2020, Additional history [...] D LEVEL ONCE IN A LIFETIME-USE SMARTSET# 68796 Completed 07/26/2023, 02/26/2023, 01/23/2023, Additional history exists [...] this encounter Medical Devices Implanted Type Area Skiver Welt End Device Identifier Shelf Expiration Date Model / Serial / Lot Cement Bone Simplex Hv & G - [id number] Implanted:Qty: 2 on 09/02/2020 by Gianni Hubbard MD at OR [facility] Right: Hip LUDY : ORTHOPAEDICS 08/11/2021 6195-1-010 / / [id number] Spacer Ring Aclde Distal Lg 14 - [id number] Implanted:Qty: 1 on 09/02/2020 by Gianni Hubbard MD at OR [facility] Right: Hip LUDY : ORTHOPAEDICS 11/25/2024 [id number] / / Accolade C Cs 127 6 37/158 - [id number] Implanted:Qty: 1 on 09/02/2020 by Gianni Hubbard MD at OR [facility] Right: Hip LUDY : ORTHOPAEDICS 05/29/2023 [id number] / / [id number] Hip Cocr Lfit Head V40 28/+4 - [id number] Implanted:Qty: 1 on 09/02/2020 by Gianni Hubbard MD at OR [facility] Right: Hip LUDY : ORTHOPAEDICS 11/15/2024 6260-9-228 / / [id number] Hip Head Bipol Uhr Uni 28x52 - [id number] Implanted:Qty: 1 on 09/02/2020 by Gianni Hubbard MD at OR [facility] Right: Hip LUDY : ORTHOPAEDICS 11/25/2024 UH1-52-28 / / [id number] Lens Intraoc 17.5 - [id number] - [id number] Implanted:Qty: 1 on 03/23/2022 by Rad Morgan MD at OR [facility] Left: Eye BAUSCH & LOMB 10/11/2026 [id number] / [id number] / [id number] Lens Intraoc 18.0 - [id number] - [id number] Implanted:Qty: 1 on 03/30/2022 by Rad Morgan MD at OR [facility] Right: Eye BAUSCH & LOMB 01/11/2027 [id number] / [id number] / [id number] documented as of this encounter Visit Diagnoses Diagnosis 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 No Care Teams Software Engineer Web Applications Relationship Specialty Start Date End Date Kaiser Amanda MD [address] [place] [address] PCP - General Family Medicine 04/11/21 documented as of this encounter
--- OUTSIDE RECORDS SUMMARY | 2024-01-29 20:38 | External Medical Summary | Summary of Care ---
Author Name Unknown Organization [facility] Address [address] [facility] [place] [address] Phone [phone] Care Team Providers Care Baggage Screener Name Role Phone Kaiser Amanda MD Primary Care Provider [phone] [phone] Reason for Visit * Reason Comments Dosage Adjustment In Person (Anticoag Cl inic) Encounter Details Date Type Department Care Team (Late st Contact Info) Description 11/28/2023 3:00 PM EDT Anticoagulation Pharmacy, [address] [place] [address] Pharmacist1, [address] [place] [address] 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*; History of pulmonary embolism; History of DVT (deep vein thrombosis) Allergies Active Allergy Reactions Criticality Noted Date Comments Cat Dander Itching 07/14/2016 documented as of this encounter (statuses as of 11/28/2023) Medications Medication Sig Dispensed Refills Start Date End Date Status OneTouch Ultra 2 w/Device KitIndications:Typ e 2 diabetes mellitus with hemoglobin A1c goal of less than 7.5% (HCC) Testing blood sugars twice daily Dx: E11.9 1 Kit 11 2 Active OneTouch Delica Lancets 30GIndications:Typ e 2 diabetes mellitus with hemoglobin A1c goal of less than 7.5% (HCC),Type 2 diabetes mellitus with polyneuropathy (HCC) Check BS once daily E11.9 100 Each 2 Active Docusate Sodium 100 MG Oral Capsule (Colace) Take 1 Capsule (100 mg) by mouth in the morning and 1 Capsule (100 mg) before bedtime. 10 Capsule 2 Active Vitamin D 25 MCG (1000 UT) [...] Tablet by mouth every evening. 3 Active glipiZIDE ER 10 MG Oral Tablet Extended Release 24 Hour (Glucotrol XL)Indications:Typ e 2 diabetes mellitus with hemoglobin A1c goal of less than 7.5% ([facility]) TAKE 1 TABLET BY MOUTH DAILY. TAKE 30 MINUTES BEFORE A MEAL 90 Tablet 3 3 Active DULoxetine HCl 60 MG Oral Capsule Delayed Release Particles (Cymbalta)Indicati ons:Depression with anxiety Take 1 Capsule by mouth in the morning. 90 Capsule 3 3 Active Hydrocortisone 2.5 % External Cream Apply to eyebrows twice daily for 3-5 days at a time as needed for flares 60 g 2 3 Active OneTouch Verio In Vitro Strip (Glucose [...] the morning. 90 Tablet 3 4 Active Polyethylene Glycol 3350 17 GM Oral Packet (Miralax) Mix 1 Packet in 4 to 8 ounces of any beverage and drink by mouth daily as needed for Constipation. 30 Packet 1 4 Active Additional Information Patient not taking.Reported on 11/12/2023 Ondansetron 4 MG Oral Tablet Disintegrating (Zofran)Indication [...] at bedtime. 15 Tablet 5 4 Active Tamsulosin HCl 0.4 MG Oral Capsule (Flomax) Take 2 Capsules by mouth at bedtime. 60 Capsule 4 12/08/19 24 Active Midodrine HCl 5 MG Oral Tablet (Proamatine)Indica tions:Orthostatic hypotension Take 1 Tablet by mouth in the morning and 1 Tablet at noon and 1 Tablet in the evening. 90 Tablet 4 Active Finasteride 5 MG Oral Tablet [...] anticoagulation clinic 90 Tablet 3 4 Active Warfarin Sodium 5 MG Oral Tablet (Coumadin) Take 1 Tablet by mouth in the morning. 11/28/19 24 Discontinu ed(Refill) documented as of this encounter (statuses as of 11/28/2023) Active Problems Problem Noted Date Diagnosed Date [...] as of this encounter (statuses as of 11/28/2023) Resolved Problems Problem Noted Date Diagnosed Date [...] unspecified site 12/16/2018 04/11/2019 Severe dehydration 12/16/2018 08/ 9 Hypercalcemia 12/16/2018 10/10/2023 Lactic acidosis 12/16/2018 11/30/2021 Pressure injury, unstageable 12/16/2018 03/27/2019 Quadriplegia 12/05/2018 06/09/2022 Generalized weakness 12/04/2018 024 Severe malnutrition 12/01/2018 12/06/19 19 Acute venous embolism and th rombosis of unspecified deep vessels of lower extremity 05/04/2008 08/23/2016 documented as of this encounter (statuses as of 11/28/2023) Immunizations Name Administration Dates Next Due COVID-19 mRNA, LNP-s, No Pre serve, 2-Dose Series ([employer]) 04/23/2021,08/09/2020,07/12/2020 Covid-19, Mrna, Lnp-s, Pf, B ivalent, 30 Mcg, IM, 12 yrs and above ([employer]) 05/19/2022 Pneumococcal Conjugate Vacc, 13 Valent (Prevnar) [...] do you have serious difficulty h earing? No-[facility] 11/07/2023 Are you blind or do you [...] this encounter Progress Notes * Jessi Collier, [facility] - 11/28/2023 2:48 PM EDT Images from the original note were not included. Medication Therapy Disease Management - Anticoagulation Patient: Lewis Alarcon | : 1950 Subjective Patient-Reported Symptoms: Patient Findings Positives: Change in medications (recently completed antibiotics (cefdinir) for UTI) Negatives: Signs/symptoms of thrombosis, Signs/symptoms of bleeding, Change in health, Change in alcohol use, Change in activity, Upcoming invasive procedure, Missed doses, Extra doses, Change in diet/appetite, Bruising Objective Current Warfarin Dose As of 11/28/2023 Warfarin maintenance plan: 5 mg (5 mg x 1) every day INR Result As of 11/28/2023 INR goal: 2.0-3.0 INR used for dosin.9 (11/28/2023) Assessment & Plan Warfarin Plan As of 11/28/2023 Full warfarin instructions: 11/27: Hold; Otherwise 5 mg every day Next INR check: 12/19/2023 Repeat PT/INR in 3 week(s) Weekly dose: not changed Additional Dosing Information: Description Home Phleb: MWMackenzie Collier RPh Clinical Pharmacist 11/28/2023, 2:48 PM documented in this encounter Plan of Treatment Upcoming Encounters Date Type Department Care Team (Late st Contact Info) Description 12/11/2023 2:00 PM EDT Office Visit Cardiology, [place] [address] [facility] [place] [address] Stefani Mooney CRNP 400 [facility] [place] [address] 12/19/2023 1:00 PM EDT Anticoagulation Pharmacy, [place] [address] [place] [address] Pharmacist1, [facility] [place] [address] [place] [address] 01/21/2024 2:00 PM EDT Office Visit Endocrinology [address] [place] [address] Sakina Jones MD 100 [place], [place] [phone] 01/25/2024 3:30 PM EDT Office Visit [facility] 200 [place] [address] Laney Hogue MD 200 [place] [address] 02/21/2024 10:30 AM EDT Office Visit Urology [place]olo Colon [address] [place] [address] [place] [id number] Nikolai Chaudhari MD [address] [place] [address] 02/25/2024 11:20 AM EDT Office Visit [facility] 21 [facility] [place] [phone] Kaiser Amanda MD 21 [facility] [place] [address] 10/21/2024 9:15 AM EDT Appointment Radiology, [facility] [address] [place] [address] 10/29/2024 9:45 AM EDT Office Visit Urology Aleida Rinaldi [place] [address] [place] [address] [place] [address] Keagan Thayer, Bert Giron MD [address] [place] [address] Scheduled Procedures Name Priority Associated Diagnoses Date/Ti [...] D LEVEL ONCE IN A LIFETIME-USE SMARTSET# [id number] Completed 07/26/2023, 02/26/2023, 01/23/2023, Additional history exists [...] encounter Medical Devices Implanted Type Area Hand Tool Filer Device Identifier Shelf Expiration Date Model / Serial / Lot Cement Bone Simplex Hv & G - [id number] Implanted:Qty: 2 on 09/02/2020 by Gianni Hubbard MD at OR [facility] Right: Hip LUDY : ORTHOPAEDICS 08/11/2021 6195-1-010 / / [id number] Spacer Ring Aclde Distal Lg 14 - [id number] Implanted:Qty: 1 on 09/02/2020 by Gianni Hubbard MD at OR [facility] Right: Hip LUDY : ORTHOPAEDICS 11/25/2024 [id number] / / Accolade C 127 6 37/158 - [id number] Implanted:Qty: 1 on 09/02/2020 by Gianni Hubbard MD at OR [facility] Right: Hip LUDY : ORTHOPAEDICS 05/29/2023 6057-0637D / / [id number] Hip Cocr Lfit Head V40 28/+4 - [id number] Implanted:Qty: 1 on 09/02/2020 by Gianni uHbbard MD at OR [facility] Right: Hip LUDY : ORTHOPAEDICS 11/15/2024 6260-9-228 / / [id number] Hip Head Bipol Uhr Uni 28x52 - [id number] Implanted:Qty: 1 on 09/02/2020 by Gianni Hubbard MD at OR [facility] Right: Hip LUDY : ORTHOPAEDICS 11/25/2024 UH1-52-28 / / [id number] Lens Intraoc 17.5 - [id number] - [id number] Implanted:Qty: 1 on 03/23/2022 by Rad Morgan MD at OR [facility] Left: Eye BAUSCH & LOMB 10/11/2026 [id number] / [id number] / [id number] Lens Intraoc 18.0 - [id number] - [id number] Implanted:Qty: 1 on 03/30/2022 by Rad Morgan MD at OR [facility] Right: Eye BAUSCH & LOMB 01/11/2027 [id number] / [id number] / [id number] documented as of this encounter Procedures Procedure Name Priority Date/Time Associated Diagnosis Comments INR FINGERSTICK, POINT OF CARE STAT 11/28/2023 3:03 PM EDT History of pulmonary embolism History of DVT (deep vein thrombosis) 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 documented in this encounter Results * INR FINGERSTICK, POINT OF CARE (11/28/2023 3:03 PM EDT) Fingerstick INR 3.9 INR 3:11 PM EDT [facility] [place] 45- Blood 11/28/2023 3:03 PM EDT 11/28/2023 3:11 PM EDT Narrative LABORATORY [facility] 45-01 - 11/28/2023 3:11 PM EDT Therapeutic ranges for non-operative patients: Prophylaxsis/treatment of DVT: (Range:2.0-3.0) Treatment of pulmonary embolism:(Range:2.0-3.0) Prevention of systemic embolism from: -tissue heart valves -acute myocardial infarction -valvular heart disease -atrial fibrillation (Range: 2.0-3.0) Mechanical prosthetic valves: (Range: 2.5-3.5) Jessi Collier [facility] LAB POINT OF CARE T EST DOCKED DEVICE UNSOLICITED RESULTS [facility] 45- 21 [place], [place] [id number] documented in this encounter Visit Diagnoses Diagnosis 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- Primary Encounter for therapeutic drug monitoring History of pulmonary embolism Personal history of pulmonary embolism History of DVT (deep vein thrombosis) Personal history of venous thrombosis and embolism documented in this encounter Advance Directives * [...] Power of Attor jus? No Care Teams Baggage Screener Relationship Specialty Start Date End Date Kaiser Amanda MD [address] [place] [address] PCP - General Family Medicine 04/11/21 documented as of this encounter"
--- OUTSIDE RECORDS SUMMARY | 2024-01-29 20:38 | External Medical Summary | Summary of Care ---
Author Name Unknown Organization [facility] Address [address] [facility] [address] Phone [phone] Care Team Providers Care Ballaster Name Role Phone Kaiser Amanda MD Primary Care Provider +1 [phone] Reason for Visit * Reason Onset Date Comments Medication Refill 11/22/2023 Spoke to patie nts and advised on refill and tx for eyelid irritation. Encounter Details Date Type Department Care Team (Late st Contact Info) Description 11/22/2023 Telephone MO[facility] Surgery [facility] [address] [place] [address] Laney Hogue MD [address] [place] [phone] Medication Refill (Spoke to patients ... Allergies Active Allergy Reactions Criticality Noted Date Comments Cat Dander Itching 07/14/2016 documented as of this encounter (statuses as of 11/23/2023) Medications Medication Sig Dispensed Refills Start Date End Date Status OneTouch Ultra 2 w/Device KitIndications:Type 2 diabetes mellitus with hemoglobin A1c goal of less than 7.5% ([facility]) Testing blood sugars twice daily Dx: E11.9 1 Kit 11 06/06/2021 Active OneTouch Delica Lancets 30GIndications:Type 2 diabetes mellitus with hemoglobin A1c goal of less than 7.5% ([facility]),Type 2 diabetes mellitus with polyneuropathy ([facility]) Check BS once daily E11.9 100 [...] goal of less than 7.5% ([facility]) TAKE 1 TABLET BY MOUTH DAILY. TAKE [...] goal of less than 7.5% ([facility]) USE STRIP TO CHECK GLUCOSE ONCE [...] do you have serious difficulty h earing? No-[facility] 11/07/2023 Are you blind or do you [...] 11/26/2023 8:15 AM EDT Hospital Encounter Radiology, [address] [address] 11/28/2023 3:00 PM EDT Anticoagulation Pharmacy, [place] [address] [place] [place] [address] Pharmacist1, [facility] [place] [address] [place] [address] 12/11/2023 2:00 PM EDT Office Visit Cardiology, [place] [address] [facility] [place] [address] Stefani Mooney CRNP 400 [facility] [place] [address] 01/21/2024 2:00 PM EDT Office Visit Endocrinology [address] [place] [address] Sakina Jones MD [address] [place] [address] 01/25/2024 3:30 PM EDT Office Visit [facility] 200 [place] [address] Laney Hogue MD 200 [place] [address] 02/21/2024 10:30 AM EDT Office Visit Urology [place] [address] [place] [address] [place] [address] Nikolai Chaudhari MD [address] [place] [address] 02/25/2024 11:20 AM EDT Office Visit Family Practice, [place] [address] [place] [phone] Kaiser Amanda MD [address] [place] [address] 10/21/2024 9:15 AM EDT Appointment Radiology, [address] [place] [address] 10/29/2024 9:45 AM EDT Office Visit Urology Rolo Colon [address] [place] [address] [place] [address] Bert Boogie Jr., MD [address] [place] [address] Scheduled Procedures Name Priority Associated Diagnoses Date/Ti [...] D LEVEL ONCE IN A LIFETIME-USE SMARTSET# 56909 Completed 07/26/2023, 02/26/2023, 01/23/2023, Additional history exists [...] this encounter Medical Devices Implanted Type Area Food Service Driver Device Identifier Shelf Expiration Date Model / Serial / Lot Cement Bone Simplex Hv & G - [id number] Implanted:Qty: 2 on 09/02/2020 by Gianni Hubbard MD at OR [facility] Right: Hip LUDY : ORTHOPAEDICS 08/11/2021 6195-1-010 / / [id number] Spacer Ring Aclde Distal Lg 14 - [id number] Implanted:Qty: 1 on 09/02/2020 by Gianni Hubbard MD at OR [facility] Right: Hip LUDY : ORTHOPAEDICS 11/25/2024 6589-0113 / / Accolade C Cs 127 6 37/158 - [id number] Implanted:Qty: 1 on 09/02/2020 by Gianni Hubbard MD at OR [facility] Right: Hip LUDY : ORTHOPAEDICS 05/29/2023 6057-0637D / / [id number] Hip Cocr Lfit Head V40 28/+4 - [id number] Implanted:Qty: 1 on 09/02/2020 by Gianni Hubbard MD at OR [facility] Right: Hip LUDY : ORTHOPAEDICS 11/15/2024 6260-9-228 / / [id number] Hip Head Bipol r [facility] 28x52 - [id number] Implanted:Qty: 1 on 09/02/2020 by Gianni Hubbard MD at OR [facility] Right: Hip LUDY : ORTHOPAEDICS 11/25/2024 UH1-52-28 / / [id number] Lens Intraoc 17.5 - [id number] - [id number] Implanted:Qty: 1 on 03/23/2022 by Rad Morgan MD at OR [facility] Left: Eye BAUSCH & LOMB 10/11/2026 [id number] / [id number] / [id number] Lens Intraoc 18.0 - [id number] - [id number] Implanted:Qty: 1 on 03/30/2022 by Rda Morgan MD at OR [facility] Right: Eye BAUSCH & LOMB 01/11/2027 [id number] / [id number] / [id number] documented as of this encounter Advance Directives [...] Power of Attor jus? No Care Teams Ballaster Relationship Specialty Start Date End Date Kaiser Amanda MD [address] [place] [id number] PCP - General Family Medicine 04/11/21 documented as of this encounter
--- OUTSIDE RECORDS SUMMARY | 2024-01-29 20:39 | External Medical Summary | Summary of Care ---
Author Name Unknown Organization [facility] Address [address] [place] [address] Phone [phone] Care Team Providers Care Web Marketing Manager Name Role Phone Kaiser Amanda MD Primary Care Provider [phone] Encounter Details Date Type Department Care Team (Late st Contact Info) Description 11/12/2023 10:30 AM EDT Scheduled Telephone Care Coordination and Integration [address], [place] [phone] Laney Alonso, Community [facility] Customer Operations Intern [address], [place] [phone] Allergies Active Allergy Reactions Criticality Noted Date Comments Cat Dander Itching 07/14/2016 documented as of this encounter (statuses as of 11/12/2023) Medications Medication Sig Dispensed Refills Start Date [...] for Constipation. 30 Packet 1 10/11/2023 Active Ondansetron 4 MG Oral Tablet Disintegrating (Zofran)Indications: [...] by mouth at bedtime. 60 Capsule 11/08/2023 4 Active Finasteride 5 MG Oral Tablet (Proscar) Take 1 Tablet by mouth in the morning. 30 Tablet 11/09/2023 4 Active Cefdinir 300 MG Oral Capsule (Omnicef) Take 1 Capsule by mouth in the morning and 1 Capsule before bedtime. Do all this for 10 days. 20 Capsule 11/08/2023 4 Active documented as of this encounter (statuses as of 11/12/2023) Active Problems Problem Noted Date Diagnosed Date [...] as of this encounter (statuses as of 11/12/2023) Resolved Problems Problem Noted Date Diagnosed Date [...] as of this encounter (statuses as of 11/12/2023) Immunizations Name Administration Dates Next Due COVID-19 [...] do you have serious difficulty h earing? No-[facility] [facility] [facility] 11/07/2023 Are you blind or do you [...] Care Team (Late st Contact Info) Description 11/12/2023 12:00 PM EDT Office Visit [facility], [place] [address] [phone] Kaiser Amanda MD [address] [address] 11/14/2023 1:30 PM EDT Office Visit [facility] [address] [phone] [facility] [address] [phone] 11/22/2023 9:00 AM EDT Nurse Only Urology Rolo Colon [address], Nurse Urology [address] [address] 11/28/2023 3:00 PM EDT Anticoagulation Pharmacy, [place] [address] [address] Pharmacist1, [facility] [place] [address] [address] 12/11/2023 2:00 PM EDT Office Visit [facility] [address] [address] Stefani Mooney CRNP 400 [facility] [place] [address] 01/16/2024 11:30 AM EDT Office Visit Urologstephen Dumontstephen RinaldiRolo [address] [facility] [address] [address] Bert Boogie Jr., MD [address] [id number] 01/21/2024 2:00 PM EDT Office Visit Endocrinology [address] [place] [phone] Sakina Jones MD 100 [facility], [place] [phone] 01/25/2024 3:30 PM EDT Office Visit [facility] Surgery [facility] [address] [place] [address] Laney Hogue MD [address] [place] [address] 02/25/2024 9:20 AM EDT Office Visit [facility] 21 [facility] [place] [phone] Kaiser Amanda MD 21 [facility] [place] [address] 10/21/2024 9:15 AM EDT Appointment Radiology, [facility] 400 [facility] [place] [place] [phone] 10/29/2024 9:45 AM EDT Office Visit UrologRolo Crespo [address] [facility] [address] [address] Bert Boogie Jr., MD [address] [address] Scheduled Procedures Name Priority Associated Diagnoses Date/Ti [...] D LEVEL ONCE IN A LIFETIME-USE SMARTSET# 37093 Completed 07/26/2023, 02/26/2023, 01/23/2023, Additional history exists GARDASIL-HPV IMMUNIZATION SERIES Aged Out No longer eligible based on patient's age to complete this topic Hepatitis B Aged Out No longer eligi ble based on patient's age to complete this topic MENINGOCOCCAL (MENACTRA/MENVEO) Aged Out No longer eligible based on patient's age to complete this topic documented as of this encounter Medical Devices Implanted Type Area Drilling Machine Runner Device Identifier Shelf Expiration Date Model / Serial / Lot Cement Bone Simplex Hv & G - [id number] Implanted:Qty: 2 on 09/02/2020 by Gianni Hubbard MD at OR [facility] Right: Hip LUDY : ORTHOPAEDICS 08/11/2021 6195-1-010 / / [id number] Spacer Ring Aclde Distal Lg 14 - [id number] Implanted:Qty: 1 on 09/02/2020 by Gianni Hubbard MD at OR [facility] Right: Hip LUDY : ORTHOPAEDICS 11/25/2024 [id number] / / Accolabelkis C Cs 127 6 37/158 - [id number] Implanted:Qty: 1 on 09/02/2020 by Gianni Hubbard MD at OR [facility] Right: Hip LUDY : ORTHOPAEDICS 05/29/2023 [id number] / / [id number] Hip Cocr Lfit Head V40 28/+4 - [id number] Implanted:Qty: 1 on 09/02/2020 by Gianni Hubbard MD at OR [facility] Right: Hip LUDY : ORTHOPAEDICS 11/15/2024 6260-9-228 / / [id number] Hip Head Bipol Uhr Uni 28x52 - [id number] Implanted:Qty: 1 on 09/02/2020 by Gianni Hubbard MD at OR [facility] Right: Hip LUDY : ORTHOPAEDICS 11/25/2024 [id number] / / [id number] Lens Intraoc 17.5 - [id number] - [id number] Implanted:Qty: 1 on 03/23/2022 by Rad Morgan MD at OR [facility] Left: Eye [employer]OM[employer] 10/11/2026 [id number] / [id number] / [id number] Lens Intraoc 18.0 - [id number] - [id number] Implanted:Qty: 1 on 03/30/2022 by Rad Morgan MD at OR [facility] Right: Eye BAUSCH & LOMB 01/11/2027 [id number] / [id number] / [id number] documented as of this encounter Advance Directives [...] Power of Attor jus? No Care Teams Web Marketing Manager Relationship Specialty Start Date End Date Kaiser Amanda MD [address] [phone] PCP - General Family Medicine 04/11/21 documented as of this encounter
--- OUTSIDE RECORDS SUMMARY | 2024-01-29 20:39 | External Medical Summary | Summary of Care ---
Author Name Unknown Organization [facility] Address [address] [facility] [address] Phone [phone] Care Team Providers Care Archery Equipment Hay Sorter Name Role Phone Kaiser Amanda MD Primary Care Provider [phone] Encounter Details Date Type Department Care Team (Late st Contact Info) Description 11/09/2023 Population Health External Data Unspecified Department Allergies Active Allergy Reactions Criticality Noted Date Comments Cat Dander Itching 07/14/2016 documented as of this encounter (statuses as of 11/09/2023) Medications Medication Sig Dispensed Refills Start Date End Date Status OneTouch Ultra 2 w/Device KitIndications:Type 2 diabetes mellitus with hemoglobin A1c goal of less than 7.5% ([facility]) Testing blood sugars twice daily Dx: E11.9 1 Kit 11 06/06/2021 Active OneTouch Delica Lancets 30GIndications:Type 2 diabetes mellitus with hemoglobin A1c goal of less than 7.5% ([facility]),Type 2 diabetes mellitus with polyneuropathy ([facility]) Check BS once daily E11.9 100 [...] Blood)Indications: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 ([facility]),Type 2 diabetes mellitus with hemoglobin A1c goal of less than 7.5% ([facility]) USE STRIP TO CHECK GLUCOSE ONCE [...] MG Sublingual Tablet Sublingual (Nitrostat)Indicatio ns:Stable angina ([facility]) Place 1 Tablet under the tongue [...] for Constipation. 30 Packet 1 10/11/2023 Active Midodrine HCl 5 MG Oral Tablet (Proamatine) Take 1 Tablet by mouth in the morning and 1 Tablet at noon and 1 Tablet in the evening. 90 Tablet 10/11/2023 4 Active Ondansetron 4 MG Oral Tablet [...] as of this encounter (statuses as of 11/09/2023) Active Problems Problem Noted Date Diagnosed Date [...] as of this encounter (statuses as of 11/09/2023) Resolved Problems Problem Noted Date Diagnosed Date [...] as of this encounter (statuses as of 11/09/2023) Immunizations Name Administration Dates Next Due COVID-19 [...] No 10/30/2023 Does the household have a presbyterian kaseman hospitallar source of income? (Household - for ages [...] Care Team (Late st Contact Info) Description 11/09/2023 5:50 PM EDT Anticoagulation Pharmacy, [place] [address] [address] Pharmacist2, [facility] [place] [address] [address] History of pulmonary embolism*; History of DVT (deep vein thrombosis) 11/12/2023 12:00 PM EDT Office Visit [facility], [place] [address] [phone] Kaiser Amanda MD [address] [address] 11/14/2023 1:30 PM EDT [place] [facility] [address] [address] [facility] [address] 11/22/2023 9:00 AM EDT Nurse Only Urology Michael Colonwn [address] [address] Nurse Rolo Urology [address] [address] 11/28/2023 3:00 PM EDT Anticoagulation Pharmacy, [place] [address] [address] Pharmacist1, [facility] [address] [place] [place] [address] 12/11/2023 2:00 PM EDT Office Visit Cardiology, [place] 400 [facility] [place] [address] Stefani Mooney CRNP [address] [facility] [address] 01/16/2024 11:30 AM EDT Office Visit Urology Aleida Rinaldi [place] [address] [place] [address] Keagan Thayer, Bert Giron MD [address] [place] [address] 01/21/2024 2:00 PM EDT Office Visit Endocrinology [address] [place] [address] Sakina Jones MD [address] [place] [address] 01/25/2024 3:30 PM EDT Office Visit [facility] Surgery [facility] [address] [facility] [address] [place] [address] Laney Hogue MD 200 [place] [address] 02/25/2024 9:20 AM EDT Office Visit Family [facility], [place] [address] [phone] Kaiser Amanda MD 21 [facility] [place] [address] 10/21/2024 9:15 AM EDT Appointment Radiology, [facility] [address] [facility] [address] [address] 10/29/2024 9:45 AM EDT Office Visit Urology AleidaRolo Argueta [address] [address] Keagan Thayer, Bert Giron MD [address] [address] Scheduled Procedures Name Priority Associated Diagnoses Date/Ti me COLONOSCOPY FLEXIBLE PROXIMA L DIAGNOSTIC Recall History of colonic polyps Health Maintenance Due Date Last Done Comments Cologuard 11/28/1995 Fecal Occult Blood Test 11/28/1995 Sigmoidoscopy 11/28/1995 COVID-19 Vaccine ( season) 2023 05/19/2022, 04/23/2021, 08/09/2020, Additional history exists Diabetic Eye Exam 12/22/2023 12/21/2022, , 12/21/2022, Additional history exists HOME BP CUFF VALIDATION YEARLY 12/27/2023 12/26/2022 HbA1c 05/09/2024 11/08/2023, 07/12, 01/23/2023, Additional history [...] 09/25/2011 Zoster Vaccines Completed 03/26/2019, 12/12, 09/27/2011 Influenza Vaccine (FLU shot) Completed 08/2022, 03/16/2022, 02/25/2021, Additional history exists VITAMIN D LEVEL ONCE IN A LIFETIME-USE SMARTSET# [id number] Completed 07/26/2023, 02/26/2023, 01/23/2023, Additional history exists [...] this encounter Medical Devices Implanted Type Area Assessment Director Device Identifier Shelf Expiration Date Model / Serial / Lot Cement Bone Simplex Hv & G - [id number] Implanted:Qty: 2 on 09/02/2020 by Gianni Hubbard MD at OR [facility] Right: Hip LUDY : ORTHOPAEDICS 08/11/2021 6195-1-010 / / [id number] Spacer Ring Aclde Distal Lg 14 - [id number] Implanted:Qty: 1 on 09/02/2020 by Gianni Hubbard MD at OR [facility] Right: Hip LUDY : ORTHOPAEDICS 11/25/2024 [id number] / / Accolade C Cs 127 6 37/158 - [id number] Implanted:Qty: 1 on 09/02/2020 by Gianni Hubbard MD at OR [facility] Right: Hip LUDY : ORTHOPAEDICS 05/29/2023 [id number] / / [id number] Hip Cocr Lfit Head V40 28/+4 - [id number] Implanted:Qty: 1 on 09/02/2020 by Gianni Hubbard MD at OR [facility] Right: Hip LUDY : ORTHOPAEDICS 11/15/2024 6260-9-228 / / [id number] Hip Head Bipol [facility] 28x52 - [id number] Implanted:Qty: 1 on 09/02/2020 by Gianni Hubbard MD at OR [facility] Right: Hip LUDY : ORTHOPAEDICS 11/25/2024 UH1-52-28 / / [id number] Lens Intraoc 17.5 - [id number] - [id number] Implanted:Qty: 1 on 03/23/2022 by Rad Morgan MD at OR [facility] Left: Eye BAUSCH & LOMB 10/11/2026 [id number] / [id number] / [id number] Lens Intraoc 18.0 - [id number] - [id number] Implanted:Qty: 1 on 03/30/2022 by Rad Morgan MD at OR [facility] Right: Eye BAUSCH & LOMB 01/11/2027 [id number] / [id number] / [id number] documented as of this encounter Advance Directives [...] Power of Attor jus? No Care Teams Archery Equipment Hay Sorter Relationship Specialty Start Date End Date Kaiser Amanda MD [address] [phone] PCP - General Family Medicine 04/11/21 documented as of this encounter
--- OUTSIDE RECORDS SUMMARY | 2024-01-29 20:39 | External Medical Summary | Summary of Care ---
Author Name Unknown Organization [facility] Address [address] [place] [address] Phone [phone] Care Team Providers Care Information Systems Security Officer Name Role Phone Kaiser Amanda MD Primary Care Provider [phone] Reason for Visit * Reason Comments Urinary Tract Infection Symptoms Vomiting * Auth/Cert Specialty Diagnoses / Procedures Referred By Contac t Referred To Contact [facility] [address] [place] [address] Phone: [phone] Emergency Medicine [facility] [address] [place] [address] Referral ID Status Reason Start Date Expiration Date Visits Re quested Visits Authorized [id number] Encounter Details Date Type Department Care Team (Late st Contact Info) Description 11/07/2023 3:30 PM EDT - 11/08/2023 3:04 PM EDT Emergency [facility] 6th Floor [address] [place] [address] Mamadou Clarke MD [address], [place] [id number] Scott Skinner DO [address] [facility] [place] [id number] Jakob Peñaloza MD [address] [facility] [place] [address] Naresh Oreilly MD [address] [place], [place] [address]ist Services [place] [address] Pt Handout (on AVS) Discharge Disposition: Home - Self Care Allergies Active Allergy Reactions Criticality Noted Date Comments Cat Dander Itching 07/14/2016 documented as of this encounter (statuses as of 11/09/2023) Medications Medication Sig Dispensed Refills Start Date End Date Status OneTouch Ultra 2 w/Device KitIndications:Type 2 diabetes mellitus with hemoglobin A1c goal of less than 7.5% ([facility]) Testing blood sugars twice daily Dx: E11.9 1 Kit 11 2 Active OneTouch Delica Lancets 30GIndications:Type 2 diabetes mellitus with hemoglobin A1c goal of less than 7.5% ([facility]),Type 2 diabetes mellitus with polyneuropathy ([facility]) Check BS once daily E11.9 [...] A1c goal of less than 7.5% ([facility]) TAKE 1 TABLET BY [...] flares 60 g 2 3 Active OneTouch Vertyler In Vitro Strip (Glucose Blood)Indications:T ype [...] Sublingual Tablet Sublingual (Nitrostat)Indicati ons:Stable angina ([facility]) Place 1 Tablet under the [...] the morning. 90 Tablet 3 4 Active Warfarin Sodium 5 MG Oral Tablet (Coumadin) Take 1 Tablet by mouth in the morning. Active Polyethylene Glycol 3350 17 GM Oral Packet (Miralax) Mix 1 Packet in 4 to 8 ounces of any beverage and drink by mouth daily as needed for Constipation. 30 Packet 1 4 Active Midodrine HCl 5 MG Oral Tablet (Proamatine) Take 1 Tablet by mouth in the morning and 1 Tablet at noon and 1 Tablet in the evening. 90 Tablet 4 11/10/19 24 Active Ondansetron 4 MG Oral Tablet [...] bedtime. 60 Capsule 4 12/08/19 24 Active Finasteride 5 MG Oral Tablet (Proscar) Take 1 Tablet by mouth in the morning. 30 Tablet 4 12/09/19 24 Active Cefdinir 300 MG Oral Capsule (Omnicef) Take 1 Capsule by mouth in the morning and 1 Capsule before bedtime. Do all this for 10 days. 20 Capsule 4 11/18/19 24 Active Tamsulosin HCl 0.4 MG Oral Capsule (Flomax) Take 1 Capsule by mouth at bedtime. 90 Capsule 3 4 11/08/19 24 Discontinued Cephalexin 500 MG Oral CapsuleIndications: Acute cystitis with hematuria Take 1 Capsule by mouth in the morning and 1 Capsule at noon and 1 Capsule in the evening and 1 Capsule before bedtime. Do all this for 7 days. 28 Capsule 4 11/08/19 24 Discontinued documented as of this encounter (statuses [...] mRNA, LNP-s, No Pre serve, 2-Dose Series (Momail) 04/23/2021,08/09/2020,07/12/2020 Covid-19, Mrna, Lnp-s, Pf, B ivalent, [...] Passive Smoke Exposure: Never Smokeless Tobacco: Never Tobacco Cessation:Counseling Given: Not Answered Alcohol Use Standard Drinks/Week Comments Yes 0 [...] Sign Reading Time Taken Comments Blood Pressure 137/73 11/08/2023 11:17 AM EDT Pulse 68 11/08/2023 11:17 AM EDT Temperature 35.8 C (96.4 F) 11/08/2023 11:17 AM E DT Respiratory Rate 14 11/08/2023 11:17 AM EDT Oxygen Saturation 100% 11/08/2023 11:17 AM EDT Inhaled Oxygen Concentration - - Weight 71.4 kg (157 lb 4.8 oz) 11/07/2023 10:55 PM EDT Height 175.3 cm (5' 9") 11/07/2023 10:55 PM EDT Body Mass Index 23.23 11/07/2023 10:55 PM EDT documented in this encounter Functional Status Functional Status Response Date of Assess ment Are you deaf or do you have serious difficulty h earing? No-[place] 11/07/2023 Are you blind or do you [...] 11/07/2023 documented as of this encounter Discharge Summaries * Jakob Peñaloza MD - 11/08/2023 3:04 PM EDT [address] [address] Admission Date: 11/07/2023 Discharge Date: 11/08/2023 RECOMMENDED TO DO FOR NEXT PROVIDER(S): F/u urology recs OP F/u abx course REASON(S) FOR MEDICATION CHANGE(S): Cefdinir on discharge DISPOSITION ON DISCHARGE: home Active Hospital Problems Diagnosis Retention of urine Orthostatic hypotension Hyperparathyroidism (HCC) Ambulatory dysfunction Complicated UTI (urinary tract infection) History of DVT (deep vein thrombosis) Essential hypertension with goal blood pressure less than 130/80 BPH with obstruction/lower urinary tract symptoms Type 2 diabetes mellitus with hemoglobin A1c goal of less than 7.5% (HCC) Depression with anxiety History of Hodgkin's disease Resolved Hospital Problems No resolved problems to display. ADMISSION HISTORY & PHYSICAL EXAM (per Dr. Oreilly): HPI: This is a 72 yo man with below pmh significant for prior spine injury, dm2, hodgkin's, a-fib and on coumadin, dvt, bph, and dm2. He has been treated twice for uti in past month and last treatment was started 3 days ago; he was placed on keflex. As his symptoms persist, he was instructed to come to ED; mainly he complains of burning on urination, polyuria, occasional vomiting, and one episodeof diarrhea. No fevers. He was found to have significant urinary retention in ED, and he was recommended for admission. He denies recent fever, chills, cough, dyspnea, chest pain. Denies use of oxygen or cpap at home. Constitutional: (+) chronically ill appearing man resting in bed. HEENT: normal: normocephalic, atraumatic Eyes: sclera and conjunctiva normal Neck: supple CV: normal rate Chest: normal respiratory effort, lungs clear to auscultation Abdomen: soft, bowel sounds normal, mild suprapubic tenderness Extremities: no edema Skin: warm, dry, intact: Neuro: alert, oriented to person, place, non-focal HOSPITAL COURSE (focused): 72yo male admitted for above. Workup showing lactic acidosis, juarez placed, urine cx repeated, abx switched to IV CTX. Evaluated by urology AM after admission, recommended starting finasteride, continue juarez for 2 weeks before urology re-evaluation. Later that day on 11/08/2023, pt was considered stable for discharge to home to complete course of cefdinir. Urology f/u for voiding trial scheduled. Operations & Procedures: none Complications: none significant Significant Lab and Imaging Results: As mentioned above Results Pending at Discharge: Lab Results Pending at Discharge: PT INR Routine CULTURE, URINE, QUANTITATIVE STAT MEDICATION UPDATES AT DISCHARGE START taking these medications INSTRUCTIONS Cefdinir 300 MG Capsule Commonly known as: Omnicef Notes to patient: Used to treat certain infections caused by bacteria such as bronchitis (infectionof the airway tubes leading to the lungs); pneumonia; and infections of the skin, ears, sinuses, throat, and tonsils. Take 1 Capsule by mouth in the morning and 1 Capsule before bedtime. Do all this for 10 days. Finasteride 5 MG Tablet Commonly known as: Proscar Start taking on: November 09, 2023 Notes to patient: Used to treat the signs of an enlarged prostate. It may take a few months to see the full effect. Take 1 Tablet by mouth in the morning. CHANGE how you take these medications INSTRUCTIONS MetFORMIN 1000 MG Tablet Commonly known as: Glucophage What changed: how much to take how to take this when to take this Notes to patient: Used to lower blood sugar in patients with high blood sugar (diabetes) TAKE 1 TABLET BY MOUTH TWICE A DAY WITH BREAKFAST AND DINNER tamsulosin 0.4 MG Capsule Commonly known as: Flomax What changed: how much to take Notes to patient: Used to treat the signs of an enlarged prostate Take 2 Capsules by mouth at bedtime. CONTINUE taking these medications INSTRUCTIONS atorvaSTATin 40 MG Tablet Commonly known as: Lipitor Notes to patient: Used to lower bad cholesterol, lower triglycerides, raise good cholesterol (HDL),and slow the progression of heart disease Take 1 Tablet by mouth in the morning. cinacalcet 30 MG Tablet Commonly known as: Sensipar Notes to patient: Used to treat high parathyroid hormone levels and high calcium levels in patientswith parathyroid cancer Take 1 tablet by mouth once daily Docusate Sodium 100 MG Capsule Commonly known as: Colace Notes to patient: used to treat or prevent occasional constipation, and to reduce pain or rectal damage caused by hard stools or by straining during bowel movements Take 1 Capsule (100 mg) by mouth in the morning and 1 Capsule (100 mg) before bedtime. DULoxetine 60 MG Cpep Commonly known as: Cymbalta Notes to patient: Used to treat depression, anxiety, and fibromyalgia. Used to ease long-term pain problems and help painful nerve diseases and diabetic nerve problems. Take 1 Capsule by mouth in the morning. glipiZIDE XL 10 MG Tb24 Commonly known as: Glucotrol XL Notes to patient: Used to lower blood sugar in patients with high blood sugar (diabetes) TAKE 1 TABLET BY MOUTH DAILY. TAKE 30 MINUTES BEFORE A MEAL hydrocortisone 2.5 % cream Notes to patient: Used to treat skin irritation, skin rashes, and signs of hemorrhoids or rectal irritation Apply to eyebrows twice daily for 3-5 days at a time as needed for flares Iron 325 (65 Fe) MG Tabs Notes to patient: Used to treat and prevent iron deficiency anemia Take 1 Tablet by mouth every evening. Ketoconazole 2 % shampoo Commonly known as: Nizoral Notes to patient: Used to treat fungal infections of the skin, dandruff, and control seborrheic dermatitis APPLY TO SCALP AND EYEBROWS DAILY- LATHER, WAIT 5 MINUTES, THEN RINSE metoprolol succinate XL 25 MG Tb24 Commonly known as: toPROL XL Notes to patient: Used to treat high blood pressure. Take 0.5 Tablets by mouth every night at bedtime. midodrine 5 MG Tablet Commonly known as: Proamatine Notes to patient: Used to treat low blood pressure Take 1 Tablet by mouth in the morning and 1 Tablet at noon and 1 Tablet in the evening. Nitroglycerin 0.4 MG Subl Commonly known as: Nitrostat Notes to patient: Used to treat or prevent sudden onset of chest pain or pressure. Do not chew or swallow. Allow to dissolve under the tongue. Please sit down or lay down when taking as this medication may cause dizziness. If pain does not resolve after 3rd tablet, call 911. Place 1 Tablet under the tongue every 5 minutes as needed for Pain, Chest. omeprazole 20 MG Cpdr Commonly known as: PriLOSEC Notes to patient: Used to treat or prevent GI (gastrointestinal) ulcers, gastroesophageal reflux (GERD, acid reflux), and heartburn Take 1 Capsule by mouth in the morning. 1 hour before the first meal of the day. ondansetron ODT 4 MG Tbdp Commonly known as: Zofran Notes to patient: Used to treat or prevent nausea/vomiting Place 1 Tablet on tongue every 8 hours as needed for Nausea. dissolve on tongue. OneTouch Delica Lancets 30G Misc Check BS once daily E11.9 OneTouch Ultra 2 w/Device Kit Testing blood sugars twice daily Dx: E11.9 OneTouch Verio Strp Generic drug: Glucose Blood USE STRIP TO CHECK GLUCOSE ONCE DAILY Polyethylene Glycol 3350 packet Commonly known as: Miralax Notes to patient: Used to treat constipation Mix 1 Packet in 4 to 8 ounces of any beverage and drink by mouth daily as needed for Constipation. Vitamin D 25 MCG (1000 UT) Tabs Notes to patient: Used to treat or prevent vitamin D deficiency Take 1 Tablet (1,000 Units) by mouth daily at noon. Warfarin Sodium 5 MG Tablet Commonly known as: Coumadin Notes to patient: Used to treat or prevent blood clots and lower the chance of heart attack, stroke, and Take as directed. If you are unsure how to take this medication, talk to your nurse or doctor. Original instructions: Take 1 Tablet by mouth in the morning. STOP taking these medications Cephalexin 500 MG Capsule Commonly known as: Keflex SCHEDULED FOLLOW-UP: Future Appointments Appt Date/Time Provider Department 11/09/2023 5:50 PM Pharmacist2, [facility], [place] 11/12/2023 12:00 PM Kaiser Amanda MD [facility]/14[facility]23 1[facility] 11/22/2023 9:00 AM [place], Nurse Urology Urology [facility] 12/11/2023 2:00 PM [facility]oney [facility] 01/16/2024 11:30 AM Bert Boogie Jr., MD Urology [facility] 01/21/2024 2:00 PM Sakina Jones MD Endocrinology [facility] [place] 01/25/2024 3:30 PM Laney Hogue MD [facility] 02/25/2024 9:20 AM Kaiser Amanda MD [facility] 10/21/2024 9:[address] Radiology, [facility] 10/29/2024 9:45 AM [facility] Other Information Indwelling Devices: LINES ALL Duration Urethral Catheter Regular catheter <1 day Vital Signs (last recorded): Most Recent Systolic BP: 137 mmHg (11/08/23 1117) Most Recent Diastolic BP: 73 mmHg (11/08/23 1117) Pulse: 68 (11/08/23 1117) Resp: 14 (11/08/23 1117) Most Recent Temperature: 35.78 C (11/08/23 1117) Weight: 71.4 kg (157 lb 4.8 oz) (11/07/23 2255) SpO2: 100 % (11/08/23 1117) Allergies: Cat dander Activity: as tolerated Diet: age appropriate diet Code Status: Full Code Condition on Discharge: stable Isolation status: None Cognition: normal HOSPITAL CONSULTS ORDERED: UROLOGY CONSULT IP ADULT PHYSICAL THERAPY CONSULT IP ADULT OCCUPATIONAL THERAPY CONSULT IP REFERRING PHYSICIAN: Ref: [id number]] NO STREET ADDRESS AVAILABLE None (office) None (fax) PRIMARY CARE PROVIDER: PCP: Kaiser Amanda MD [address] / [place] [phone] (office) [phone] (fax) Note: To contact a physician responsible for this patients hospital care, please call [facility] [phone]. I spent a total of 45 minutes coordinating, documenting, and providing care for this patient excluding time spent in the performance of separately billed services. documented in this encounter Discharge Instructions * Discharge Instr - AVS* Jakob Peñaloza MD - 11/08/2023 10:55 AM EDT Discharge Date: 11/08/2023 The information below provides you with the instructions and the list of medications you need to betaking following discharge from the hospital. If you have any questions, please ask before leaving. If you have questions after leaving, you can reach us at the numbers below. YOUR HOSPITAL PROVIDERS: Discharging Provider: Jakob Peñaloza MD Provider Department: Hospital Medicine To reach this Provider Sunday through Sunday (8:00 AM to 4:30 PM) for any questions or test results: Call [phone] For after-hours concerns: Call [phone] and have your provider paged, or the provider air cargo ground operations supervisor for the Department of Hospital Medicine paged. [...] available, you can go to your local [facility] or [facility] Clinic during their business hours. In an EMERGENCY situation: Call [phone] or go to the nearest emergency room. A BRIEF SUMMARY OF YOUR HOSPITAL STAY: You came to the hospital with: urinary tract infection Your main diagnosis at discharge was: urinary tract infection Operations & Procedures performed: none Complications: none significant Inpatient test results that are pending at discharge: final blood cultures Advance Directive Documented: Advance Directive Does the Patient have an Advance Directive? No YOUR FOLLOW UP APPOINTMENTS: Primary Care Provider Information: PCP: Kaiser Amanda MD [address] / [place] [phone] (office) [phone] (fax) An appointment was requested with your PCP (Kasier Amanda MD) within 7 days. (Please take this form to this visit with your primary care physician.) You need the following studies in the future: none INSTRUCTIONS: Diet: Heart healthy diet Activity: As tolerated Additional Instructions: - Call your primary care physician or seek medical attention if you experience worsening shortness of breath, chest pain, lightheadedness, dizziness. * Pharmacy Instr - AVS* Ritesh Jackson [facility] - 11/08/2023 8:02 AM EDT DRAFT DO NOT PRINT PAGE PHARMACIST TO COMPLETE PRIOR TO DISCHARGE Warfarin dosing instructions for after discharge: You {[facility] WARF[facility] PRESCRIBED :92359} a prescription for Warfarin mg tablets. Please take the following doses of warfarin by mouth after Discharge: Date Dose using warfarin mg Tablets Take tablets = mg Take tablets = mg Take tablets = mg Take tablets = mg Take tablets = mg Your dose of {[facility] ANTICO[facility] MED DISCHARGE LIST2:20272} is mg {[facility] ROUTEOF ADMIN:30984} {[facility] ADMIN DISCHARGE:46344}. You should use this medication along with warfarin until you are instructed to stop. {ANTICOAG RX INSTRUCTIONS:801256} If you have any questions regarding your anticoagulation therapy, please {QUESTIONS-S:67174}. Please share the following information with your provider: You were {[facility] START CONTINUE:71090} {[facility] ANTICOAGULATION MED DISCHARGE LIST:71999} for Indication for Anticoagulation: Deep Vein Thrombosis (DVT) acquired prior to this admission. This is {[facility] NEW_PTA DX:56298}. Your Target INR: 2.0-3.0 (Prophylaxis of venous thrombosis) . Your Anticipated Duration of Therapy: Lifetime . Because you have been placed on a blood thinner, your therapy will need to be monitored on a regular basis. You will have your Anticoagulation Managed By: Anticoagulation Clinic . While you were in the hospital, you medication doses received and your corresponding labs were: INR Date/Time Value Ref Range Status 11/08/2023 04:18 AM 2.7 (H) 0.8 - 1.2 Final HGB Date/Time Value Ref Range Status 11/08/2023 04:18 AM 11.9 (L) 14.0 - 16.8 g/dL Final HCT Date/Time Value Ref Range Status 11/08/2023 04:18 AM 36.8 (L) 40.0 - 48.4 % Final PLT Date/Time Value Ref Range Status 11/08/2023 04:18 AM 180 140 - 400 K/uL Final Warfarin Administrations (last 720 hours) Showing orders from other encounters with times marked inred Date/Time Action Medication Dose 10/10/23 1950 Given Warfarin Sodium (Coumadin) tab 5 mg 5 mg 10/09/232106 Given Warfarin Sodium (Coumadin) tab 5 mg 5 mg documented in this encounter Progress Notes * Nasir Varela RPh - 11/08/2023 11:14 AM EDT PHARMACY DISCHARGE MEDICATION RECONCILIATION REVIEW [address] [address] Name: Lewis Alarcon Location: [facility] [id number] Date: 11/08/2023 Time: 11:14 AM This discharge medication reconciliation was reviewed by a pharmacist and no corrections or interventions were required. * Ritesh Jackson RPh - 11/08/2023 7:14 AM EDT PHARMACY ANTICOAGULATION WARFARIN (Coumadin) Assessment [address] [address] Name: Lewis Alarcon Location: [facility] [id number] Date: 11/08/2023 Time: 7:14 AM Lewis Alarcon is a 72 year old male admitted for No Principal Problem: There is no principal problem currently on the Problem List. Please update the Problem List and refresh.. Pharmacy was consulted for warfarin dosing and monitoring. Anticoagulation Therapy Goals Indication for Anticoagulation: Deep Vein Thrombosis (DVT) acquired prior to this admission Anticipated Duration of Therapy: Lifetime Target INR: 2.0-3.0 (Prophylaxis of venous thrombosis) Risk factors for anticoagulation therapy: Age>65, Hypertension Prior to Admission Management Anticoagulation Managed By: Anticoagulation Clinic Tablet Size/Strength: 5 mg Anticoagulation Regimen: 5mg daily Anticoagulation Episode Summary Current INR goal: 2.0-3.0 TTR: 67.7% (11.9 mo) Next INR check: 11/07/2023 INR from last check: 2.3 (10/17/2023) Most recent INR: 2.7 (11/08/2023) Weekly max warfarin dose: Target end date: Indefinite INR check location: Preferred lab: Send INR reminders to: Indications History of pulmonary embolism (Primary) [Z86.711] History of DVT (deep vein thrombosis) [Z86.718] Comments: 2 episodes of VTE. Anticoagulation Care Providers Provider Role Specialty Phone number Nelly Chaney PA-C Referring Physician Freight Booker [phone] Scott Skinner DO Referring Family Medicine [phone] Labs INR Date/Time Value Ref Range Status 11/08/2023 04:18 AM 2.7 (H) 0.8 - 1.2 Final HGB Date/Time Value Ref Range Status 11/08/2023 04:18 AM 11.9 (L) 14.0 - 16.8 g/dL Final HCT Date/Time Value Ref Range Status 11/08/2023 04:18 AM 36.8 (L) 40.0 - 48.4 % Final PLT Date/Time Value Ref Range Status 11/08/2023 04:18 AM 180 140 - 400 K/uL Final Objective Warfarin Administrations (last 720 hours) Showing orders from other encounters with times marked inred Date/Time Action Medication Dose 10/10/23 1950 Given Warfarin Sodium (Coumadin) tab 5 mg 5 mg 10/09/232106 Given Warfarin Sodium (Coumadin) tab 5 mg 5 mg Assessment & Plan Assessment Dietary Assessment: Normal/expected PO intake Today's INR : Therapeutic Does the patient have any medication interactions: No Are there bleeding concerns with the patient: No Does the patient have any upcoming procedures: No Plan Warfarin Plan: Give Warfarin Specify Warfarin Dose: give 5mg tonight Is the patient receiving a Bridging Agent: No Warfarin Patient Education : Not needed Reason Education Not Needed: acc Ritesh Jackson RPh documented in this encounter H&P Notes * Naresh Oreilly MD - 11/07/2023 10:22 PM EDT Images from the original note were not included. [facility] PRESENTING PROBLEM: burning on urination HPI: This is a 72 yo man with below pmh significant for prior spine injury, dm2, hodgkin's, a-fib and on coumadin, dvt, bph, and dm2. He has been treated twice for uti in past month and last treatment was started 3 days ago; he was placed on keflex. As his symptoms persist, he was instructed to come to ED; mainly he complains of burning on urination, polyuria, occasional vomiting, and one episodeof diarrhea. No fevers. He was found to have significant urinary retention in ED, and he was recommended for admission. He denies recent fever, chills, cough, dyspnea, chest pain. Denies use of oxygen or cpap at home. -as per ortho, no plan for surgery but he should be using arm sling. Subjective ROS: As per HPI and all other systems reviewed and negative. Subjective Patient's past history, medications, and allergies were reviewed. Objective Physical Exam Most Recent Vital Signs: BP: 165 mmHg/77 mmHg (11/07/23 2200) Pulse: 63 (11/07/23 2100) Resp: 14 (11/07/23 2100) Temp: 36.39 C (11/07/23 1349) Temp Summary: Temp Min: 36.4 C (97.5 F) Max: 36.4 C (97.5 F) SpO2: 98 % (11/07/23 1538) O2 flow rate: Supplemental O2 Delivery: Room Air, None (11/07/23 1349) Constitutional: (+) chronically ill appearing man resting in bed. HEENT: normal: normocephalic, atraumatic Eyes: sclera and conjunctiva normal Neck: supple CV: normal rate Chest: normal respiratory effort, lungs clear to auscultation Abdomen: soft, bowel sounds normal, mild suprapubic tenderness Extremities: no edema Skin: warm, dry, intact: Neuro: alert, oriented to person, place, non-focal STUDIES: Encounter Orders Labs and other studies reviewed with pertinent findings noted below: Results for orders placed or performed during the hospital encounter of 11/07/23 COMPREHENSIVE METABOLIC PANEL Result Value Ref Range BUN 17 6 - 20 mg/dL Creatinine 1.0 0.6 - 1.2 mg/dL Estimated Glomerular Filtration Rate 78 >=60 mL/min Sodium 139 135 - 146 mmol/L Potassium 4.7 3.5 - 5.1 mmol/L Chloride 101 98 - 107 mmol/L CO2 19 (L) 22 - 32 mmol/L Anion Gap 19 (H) 7 - 15 mmol/L Glucose 198 (H) 70 - 120 mg/dL Albumin 3.9 3.8 - 5.0 g/dL AST 17 10 - 50 U/L Alkaline Phosphatase 57 35 - 130 U/L Bilirubin, Total 0.4 <=1.2 mg/dL Calcium 8.9 8.4 - 10.2 mg/dL Protein 6.6 6.0 - 8.3 g/dL ALT 13 10 - 50 U/L LIPASE Result Value Ref Range Lipase 24 13 - 60 U/L URINALYSIS, REFLEX TO MICROSCOPIC Result Value Ref Range Color, Urine Yellow Light Yellow, Yellow, Dark Yellow Clarity, Urine Clear Clear Glucose, Urine Negative Negative mg/dL Bilirubin, Urine Negative Negative Ketone, Urine Negative Negative mg/dL Specific [place], Urine 1.009 1.003 - 1.030 Blood, Urine Negative Negative pH, Urine 5.5 5.0 - 7.5 Units Protein, Urine Negative Negative mg/dL Urobilinogen, Urine 0.2 0.2, 1.0 mg/dL Nitrite, Urine Negative Negative Esterase, Urine Moderate (A) Negative LACTATE Result Value Ref Range Lactate 4.3 (HH) 0.4 - 2.0 mmol/L CBC Result Value Ref Range WBC 7.67 4.00 - 10.80 K/uL RBC 4.23 4.50 - 5.25 M/uL HGB 13.0 (L) 14.0 - 16.8 g/dL HCT 39.6 (L) 40.0 - 48.4 % MCV 93.6 82.0 - 99.5 fL MCH 30.7 27.0 - 34.0 pg MCHC 32.8 32.0 - 36.0 g/dL RDW 13.5 11.5 - 15.5 % PLT 214 140 - 400 K/uL MPV 8.7 6.6 - 11.1 fL nRBCs 0 <=0 /100 WBCs DIFFERENTIAL, AUTOMATED Result Value Ref Range WBC 7.67 4.00 - 10.80 K/uL Neutrophils % 61.1 40.0 - 75.0 % Lymphocytes % 26.3 18.0 - 42.0 % Monocytes % 7.7 1.0 - 11.0 % Eosinophils % 3.8 0.0 - 6.0 % Basophils % 0.7 0.0 - 2.0 % Immature Granulocytes % 0.4 0.0 - 2.0 % Absolute Neutrophils 4.69 1.80 - 7.70 K/uL Absolute Lymphocytes 2.02 1.00 - 4.80 K/ul Absolute Monocytes 0.59 0.00 - 1.10 K/uL Absolute Eosinophils 0.29 0.00 - 0.70 K/uL Absolute Basophils 0.05 0.00 - 0.20 K/uL Absolute Immature Granulocytes 0.03 0.00 - 0.20 K/uL PROCALCITONIN Result Value Ref Range Procalcitonin 0.08 <0.10 ng/mL MICROSCOPIC EXAM, URINE Result Value Ref Range RBC, Urine 0-2 0 - 2 /HPF WBC, Urine 30-49 (A) 0 - 2 /HPF Bacteria, Urine 51-100 (A) 0 - 25 /HPF LACTATE Result Value Ref Range Lactate 1.8 0.4 - 2.0 mmol/L BLOOD GAS, VENOUS Result Value Ref Range Temperature 37.0 C pH, Venous 7.335 7.320 - 7.430 units pCO2, Venous 47.9 40.0 - 60.0 mmHg pO2, Venous 27.8 25.0 - 50.0 mmHg Base Excess, Venous -0.8 -2.0 - 2.0 mmol/L HGB 12.0 (L) 14.0 - 16.8 g/dL Oxyhemoglobin, Venous 38.0 (L) 40.0 - 85.0 % total Hgb Carboxyhemoglobin, Whole Blood 0.7 <=1.5 % total Hgb Methemoglobin, Whole Blood 0.4 <=1.5 % total Hgb Reduced Hemoglobin, Venous 60.9 % total Hgb O2 Content, Venous 6.4 (L) 7.0 - 18.0 %vol Bicarbonate, Whole Blood 24.8 23.0 - 31.0 mmol/L CT ABD/PELVIS W IV CONTRAST - WO ORAL CONTRAST Final Result PROCEDURE INFORMATION: Exam: CT Abdomen And Pelvis With Contrast Exam date and time: 11/07/2023 7:19 PM Age: 72 years old Clinical indication: Abdominal pain; Additional info: UTI, abdominal pain TECHNIQUE: Imaging protocol: Computed tomography of the [...] volume: 80 ml; Contrast route: INTRAVENOUS (IV); COMPARISON: CT ABD/PELVIS W IV CONTRAST - WO ORAL CONTRAST 09/09/2023 5:33 AM FINDINGS: Liver: Unremarkable. No mass. Gallbladder and biliary ducts: Small gallstone. No acute cholecystitis. Pancreas: Fatty infiltration within the pancreas. Spleen: Unremarkable. No mass. Adrenal glands: Unremarkable. No mass. Kidneys and ureters: Stable bilateral renal cysts and renal stones. Unchanged nonobstructing stone measuring 1.4 cm at the right UPJ. No hydronephrosis. Stomach and bowel: Colonic diverticulosis. No acute diverticulitis. No significant mucosal thickening. No bowel obstruction. Appendix: No evidence of appendicitis. Intraperitoneal space: No free air. No significant fluid collection. Vasculature: No abdominal aortic aneurysm. Lymph nodes: No enlarged lymph nodes. Urinary bladder: Distended urinary bladder with no significant wall thickening. Reproductive: Mild prostatomegaly. Bones/joints: Status post right hip arthroplasty. Soft tissues: No bowel containing hernia. IMPRESSION IMPRESSION: 1. Distended urinary bladder with no significant wall thickening. Correlate for urinary retention. 2. Stable bilateral renal cysts and nephrolithiasis. There is also a chronic nonobstructing stone at the right UPJ. 3. Small gallstone. 4. Colonic diverticulosis. THIS DOCUMENT HAS BEEN ELECTRONICALLY SIGNED BY CHARAN STEVE MD I personally reviewed his EKG which shows sr without acute st changes. No significant changes c/w prior ekg Assessment and Plan IMPRESSION: Active Problems: BPH with obstruction/lower urinary tract symptoms Depression with anxiety Type 2 diabetes mellitus with hemoglobin A1c goal of less than 7.5% (HCC) History of Hodgkin's disease Essential hypertension with goal blood pressure less than 130/80 History of DVT (deep vein thrombosis) Complicated UTI (urinary tract infection) Ambulatory dysfunction Hyperparathyroidism (HCC) Orthostatic hypotension Resolved Problems: * No resolved hospital problems. * DIFFERENTIAL AND PLAN: Patient has persistent or recurrent uti. Most likely cause is trouble voiding due to bph. He also had elevated lactate on presentation to ED but it has since resolved. He doesn't appear septic. -observe on monitor -rocephin for uti -continue flomax and will increase dose, and consult urology regarding urine retention -if post void residual is over 350, straight catj -insulin for dm2 -continue other home meds -pt/ot eval for weakness and ambulatory dysfunction PHARMACOLOGIC VTE PROPHYLAXIS:warfarin check daily dose (PHARMACIST MANAGED) Warfarin Sodium CODE STATUS: Full Code EXPECTED DISCHARGE DATE: 1-2 days or more I spent a total of 55 minutes coordinating, documenting, and providing care for this patient excluding time spent in the performance of separately billed services. documented in this encounter Consult Notes * Jess Estes OT - 11/08/2023 10:20 AM EDTAssociated Order(s): ADULT OCCUPATIONAL THERAPY CONSULT IP GENERAL EVALUATION - Occupational Therapy [facility]-[address] [id number] Name: Lewis Alarcon Location: [facility] [id number] Date: 11/08/2023 Time: 1020 Lewis Alarcon is a 72 year old male. Per H&P " This is a 72 yo man with below pmh significant for prior spine injury, dm2, hodgkin's, a-fib and on coumadin, dvt, bph, and dm2. He has been treated twice for uti in past month and lasttreatment was started 3 days ago; he was placed on keflex. As his symptoms persist, he was instructed to come to ED; mainly he complains of burning on urination, polyuria, occasional vomiting, and one episode of diarrhea. No fevers. He was found to have significant urinary retention in ED, and he was recommended for admission. He denies recent fever, chills, cough, dyspnea, chest pain. Denies useof oxygen or cpap at home. -as per ortho, no plan for surgery but he should be using arm sling. Subjective ROS: As per HPI and all other systems reviewed and negative." Patient Status: Observation Insurance: Payor: MEDICARE Plan: MEDICARE A AND B Product Type: *No Product type* Payor: AAR Plan: AARP Product Type: *No Product type* Patient Seen: at bedside, nursing cleared patient for therapy Patient Identified By: Name, ID Band and Date Diagnosis: UTI, weakness, ADL deficits, hx of SCI with UE deficits (11/08/23 1020) Orders: OT evaluation and treatment (11/08/23 1020) Weight Bearing Status: Weight bearing as tolerated (11/08/23 1020) Precautions: Alarms;Falls;Safety (11/08/23 1020) Past Medical History: Past Medical History: Diagnosis [...] performed by John Gordillo MD at OR [facility] INCISIONAL HERNIA REPAIR, LAP, REDUCIBLE left inguinal and umbelical INFORMATION 05/14/1988 lymph node removal KNEE ARTHROSCOPY/SURGERY PARTIAL HIP REPLACEMENT & PROSTH Right 09/02/2020 HEMIARTHROPLASTY HIP performed by Gianni Hubbard MD at OR [facility] REMOVE CATARACT, INSERT LENS PROSTH Left 03/23/2022 LEFT EXTRACAPSULAR CATARACT REMOVAL WITH INTRAOCULAR LENS performed by Rad Morgan MD at OR [facility] [address] REMOVE CATARACT, INSERT LENS PROSTH Right 03/30/2022 RIGHT EXTRACAPSULAR CATARACT REMOVAL WITH INTRAOCULAR LENS performed by Rad Morgan MD at OR [facility] [address] REMOVE TONSILS & ADENOIDS, AGE 12+ UMBIL HERNIA REPAIR (INCARCERATED) AGE 5+YR Social History/Disposition Lives with: Spouse (11/08/23 1020) Assistance available: Yes (11/08/23 1020) Dwelling type: Single story home (11/08/23 1020) Entry steps: 2 (1+1) (11/08/23 1020) Inside steps: None (11/08/23 1020) Bedroom location: 1st floor (11/08/23 1020) Bath location: 1st floor shower (11/08/23 1020) Prior Level of Function Reported by: Patient (11/08/23 1020) Ambulation: Ambulatory with device (11/08/23 1020) Ambulatory Device: Rolling walker (11/08/23 1020) Grooming: Independent (11/08/23 1020) Bathing: Assistance (11/08/23 1020) Dressing: Assistance (11/08/23 1020) Feeding: Independent (11/08/23 1020) Toileting: Assistance (11/08/23 1020) Meal Prep: Dependent (11/08/23 1020) Homemaking: Dependent (11/08/23 1020) Shopping: Dependent (11/08/23 1020) Medication Management: Dependent (11/08/23 1020) Money Management: Dependent (11/08/23 1020) Occupation/Leisure Skills: Television (11/08/23 1020) Driving: Yes (11/08/23 1020) Durable Medical Equipment at home: Wheelchair;Rolling walker;Grab bars;Shower chair (11/08/23 1020) Subjective: Pt without significant comment and agreeable to participate in therapy. Pain: No complaints of pain Observations Consciousness: Alert (11/08/23 1020) Orientation: Oriented times 4 (11/08/23 1020) Cognitive Limitations: (none noted on OT eval) (11/08/23 1020) Psychosocial: Patient can communicate basic needs;Patient can converse in a social setting (11/08/23 1020) Visual Deficits: (glasses) (11/08/23 1020) Sitting posture: Forward head;Rounded shoulders (11/08/23 1020) Standing posture: Forward head;Rounded shoulders (11/08/23 1020) Safety awareness: The Patient verbalizes insight of current deficits.;The Patient demonstrates carryover of insight during functional tasks.;Needs cueing supervision. (11/08/23 102) Other Findings Light touch sensation: LUE;RUE;Intact (11/08/23 1020) Coordination: LUE;RUE;Gross motor;Fine motor;Intact (11/08/23 1020) Current Functional Status: Bilateral Upper Extremity Hand Dominance: Left (previously R handed until fall ~6 years) (11/08/23 1020) Range of Motion: WFL, except (11/08/23 1020) LUE: Shoulder (11/08/23 1020) RUE: Shoulder;Elbow (11/08/23 1020) Strength Assessment: Deficits noted (11/08/23 1020) LUE: Shoulder;Elbow;Wrist;Grasp;3+/5 (11/08/23 1020) RUE: Elbow;Shoulder;Wrist;Grasp;3+/5 (11/08/23 1020) Self Care Able to provide self care: Yes (11/08/23 1020) Feeding: Independent (11/08/23 1020) Grooming: Supervision (Please comment) (11/08/23 1020) Toileting: Moderate Assistance (11/08/23 1020) Dressing Upper Body: Moderate Assistance (11/08/23 1020) Lower Body: Moderate Assistance (11/08/23 1020) Bathing Upper Body: Moderate Assistance (11/08/23 1020) Lower Body: Moderate Assistance (11/08/23 1020) Functional Ambulation Assistive Device: Rolling walker (11/08/23 1020) Distance in feet:: 40 (11/08/23 1020) Level of Assistance: Contact Guard (11/08/23 1020) OT Transfers Sit-Stand: Contact Guard (11/08/23 1020) Stand-Sit: Contact Guard (11/08/23 1020) Toilet: Minimal Assistance (11/08/23 1020) Balance Sit (Static): Good (11/08/23 1020) Sit (Dynamic): Good (11/08/23 1020) Stand (Static): Good (11/08/231019) Stand (Dynamic): Good (11/08/231019) Alarm Status Patient positioned in: Chair (11/08/231019) With: Pressure pad alarm intact and functioning and call kebede in reach (11/08/231019) Patient and Family Goals: to get well and to return home Patient Education Education Topic: Role of OT;Plan of care goals (11/08/231019) Review of Precautions: Safety;Fall (11/08/231019) Method of Education: Verbalized to patient (11/08/231019) Education Provided to: Patient (11/08/231019) Response to Education: Receptive and agreeable to education (11/08/231019) Treatment Provided: Therapeutic Procedure: 14 minutes Evaluation Moderate Complexity 14 minutes - [id number]: Patient was cooperative and pleasant during treatment session. Moderate complexity evaluation performed and 3-5 activity limitations were identified, including ADL deficit, functional mobility deficit, decreased strength, decreased endurance, and impaired balance. Minimal or moderate modification of the functional task was necessary to complete the evaluation. Upper Extremity exercise Demonstrate Exercises: LUE;RUE;Shoulder;Elbow;Wrist;3 sets of 10;Flexion;Extension;Shoulder shrugs;Supination/pronation (11/08/231019) Peformed in: Seated (11/08/231019) Deficits Requiring O.T. Treatment: Deficits requiring O.T. treatment needs: ADL/self-care;Balance;Endurance;Fine motor coordination;Functional mobility;IADL;Safety;Upper extremity strength;Upper extremity range of motion;Weakness (11/08/231019) Goals: Bathing: Upper: minimal assistance (pt does 75%). Lower: minimal assistance (pt does 75%) Dressing: Upper: minimal assistance (pt does 75%). Lower: minimal assistance (pt does 75%). Transfers with: Sit to Stand: modified independent (with device or slow) Toilet: modified independent (with device or slow) Bed to Chair/Wheelchair: modified independent (with device or slow). Demonstrates Grooming at modified independent (100% with device and additional time). Demonstrates toileting at minimal assistance (pt does 75%) Goal Time Frame: Within 1-10 treatment sessions Assessment: Pt tolerated OT session well. Pt was A&Ox4 and able to answer all prior functional level questions without assist. Pt demonstrated significantly decreased B UE ROM and strength needed for engagement in daily activities. Pt performed ambulatory chair <> toilet transfer using the RW for stability with Min A for Sit > stand from the low toilet surface and CG while ambulating for safety. Pt engaged in B UE exercise in order to promote B UE strength needed for engagement in daily activities. Pt completed 3 sets of 10 reps of the following motions: shoulder shrugs, elbow flexion, wristflexion/extension, pronation/supination, and shoulder forward flexion. Pt was positioned for comfort in chair with pressure pad alarm intact and functioning and call bellin reach. OT AM-PAC: 15 Pt requires assist with grooming, bathing, dressing , and toileting. As such, Would consider post-acute care services which may include home health, usp, outpatient therapy,or inpatient rehab. The level of care will be determined in collaboration with the patient, family/caregiver, and care team members. Skilled OT services warranted here at [facility] to address deficits in ADLs and functional mobility. Treatment Plan: Energy Conservation, Safety, Homemaking Skills, Bed mobility training, Functional Ambulation, Transfer training, Coordination Tasks, ROM exercises, Upper extremity strengthening, Balance activities, ADL training, and Endurance Anticipated Frequency (on eval): 1 to 3 times per week (11/08/23 1020) AM-PAC Help From Another Person Eating Meals: None (11/08/23 1020) Help From Another Person Taking Care of Personal Grooming: A little (11/08/23 1020) Help From Another Person To Put On/Take Off Upper Body Clothing: A lot (11/08/23 1020) Help From Another Person To Put On/Take Off Lower Body Clothing: A lot (11/08/23 1020) Help From Another Person Toileting: A lot (11/08/23 1020) Help From Another Person Bathing: A lot (11/08/23 1020) OT AM-PAC Score: 15 (11/08/23 1020) OT AM-PAC t-Scale Score: 34.69 (11/08/23 1020) HLM (Highest Level of Mobility) Goal: Level 5 standing (1 or more minutes) (11/08/23929) * Jay Camp, PT - 11/08/2023 8:20 AM EDTAssociated Order(s): ADULT PHYSICAL THERAPY CONSULT IP GENERAL EVALUATION - Physical Therapy [address] [address] Name: Lewis Alarcon Location: [facility] [id number] Date: 11/08/2023 Time: 819 Lewis Alarcon is a/an 72 year old male. Patient Status: Observation Insurance: Payor: MEDICARE Plan: MEDICARE A AND B Product Type: *No Product type* Payor: AARP Plan: AARP Product Type: *No Product type* Patient Seen: at bedside, nursing cleared patient for therapy Patient Identified By: Name, ID Band and Date Diagnosis: Gait dysfunction, BPH with obstruction/lower urinary tract symptoms, complicated UTI (11/08/23819) Status of treatment: Evaluation completed (11/08/23819) Orders: PT evaluation and treatment (11/08/23819) Weight Bearing Status: Weight bearing as tolerated;RUE;LUE;RLE;LLE (11/08/23819) Precautions: Alarms;Falls;Safety;Other - describe;Juarez (waffle cushion) (11/08/23819) Total Treatment Time--free text: 40 minutes (11/08/23819) HPI: Per chart review: "This is a 72 yo man with below pmh significant for prior spine injury, dm2,hodgkin's, a-fib and on coumadin, dvt, bph, and dm2. He has been treated twice for uti in past month and last treatment was started 3 days ago; he was placed on keflex. As his symptoms persist, he was instructed to come to ED; mainly he complains of burning on urination, polyuria, occasional vomiting, and one episode of diarrhea. No fevers. He was found to have significant urinary retention in ED, and he was recommended for admission. He denies recent fever, chills, cough, dyspnea, chest pain. Denies use of oxygen or cpap at home. -as per ortho, no plan for surgery but he should be using arm sling. " Discussed above noted recommendation for arm sling w/ pt, Dr. Dumas, charge nurse and pt's, and pt reports no recent history of trauma to B UE's per pt report nor associated w/ this admission. Additionally, no radiological studies of B UE's this admission (most recent UE radiological studies for UEare for L clavicle 05/29/2022 related to L clavicular fracture in April of 2022, and pt reports no longer seeing an orthopedic surgeon for this L clavicular fracture. Therefore, following discussion w/ pt, Dr. Dumas, charge nurse and pt's nurse, it was determined that this notation regarding recommendation for sling was entered in error on HPI by admitting physician regarding a different pt. Past Medical History: Past Medical History: Diagnosis [...] performed by John Gordillo MD at OR [facility] INCISIONAL HERNIA REPAIR, LAP, REDUCIBLE left inguinal and umbelical INFORMATION 05/14/1988 lymph node removal KNEE ARTHROSCOPY/SURGERY PARTIAL HIP REPLACEMENT & PROSTH Right 09/02/2020 HEMIARTHROPLASTY HIP performed by Gianni Hubbard MD at OR [facility] REMOVE CATARACT, INSERT LENS PROSTH Left 03/23/2022 LEFT EXTRACAPSULAR CATARACT REMOVAL WITH INTRAOCULAR LENS performed by Rad Morgan MD at OR [facility] REMOVE CATARACT, INSERT LENS PROSTH Right 03/30/2022 RIGHT EXTRACAPSULAR CATARACT REMOVAL WITH INTRAOCULAR LENS performed by Rad Morgan MD at OR [facility] [address] REMOVE TONSILS & ADENOIDS, AGE 12+ UMBIL HERNIA REPAIR (INCARCERATED) AGE 5+YR Subjective: Pt expressed willingness to participate in PT consult. Social History/Disposition Lives with: Spouse (11/08/23819) Assistance available: Yes (as needed from spouse) (11/08/23819) Dwelling type: Single story home (11/08/23819) Entry steps: 2 (1+1) (11/08/23819) Inside steps: None (11/08/23819) Bedroom location: 1st floor (11/08/23819) Bath location: 1st floor shower (WIS w/ seat and grab bars) (11/08/23819) Prior Level of Function Reported by: Patient (11/08/23819) Ambulation: Ambulatory with assistance and device (11/08/23819) Ambulatory Device: Rolling walker (11/08/23819) Devices at home: Raised toilet seat;Dressing stick;Grab bars;Quad cane;Sock aid;Other - describe;Long-handled shoe horn;Rolling walker (lift recliner) (11/08/23819) Observations Consciousness: Alert (11/08/23819) Orientation: Person;Place;Situation (identified month and year as September 2023; reoriented pt) (11/08/23819) Psychosocial: Patient can communicate basic needs;Patient can converse in a social setting (11/08/23819) Other Findings: Yes (11/08/23819) Findings: Light touch sensation;Coordination;Tone (11/08/23819) Light Touch Sensation Results: Intact;LLE;RLE (11/08/23819) Coordination Results: Intact;LLE;RLE (11/08/23819) Tone Results: Intact;LLE;RLE (11/08/23819) Sitting Posture: Forward head;Rounded shoulders (11/08/23819) Standing Posture: Forward head;Rounded shoulders (11/08/23819) Pain: No complaints of pain Range of Motion Range of Motion: WFL (B LE; see OT for B UE) (11/08/23819) Strength Assessment Strength Assessment: Deficits noted (see OT for B UE) (11/08/23819) WNL, except: LLE;RLE (11/08/23819) LLE: 4+/5;Hip;Knee;Ankle (11/08/23819) RLE: 4+/5;Hip;Knee;Ankle (11/08/23819) Transfers Sit-Stand: Minimal Assistance (11/08/23819) Stand-Sit: Contact Guard (11/08/23819) W/C-Bed/Mat: Minimal Assistance (11/08/23819) Ambulation: Distance ambulated (feet): 358 (174 feet and 184 feet) Assistive Device: Rolling walker Assist: Contact Guard to supervision 1 (~20% CGA 1, ~80% supervision 1) Gait Characteristics: Decreased speed, Decreased step length, mild trunk sway, not safe to transferor amb w/o assistance but no loss of balance for forward amb, turning 180 degrees in each directionand backing up to sit w/ rolling walker and CGA to supervision 1. Curb training: Up/down 1, 7" step once w/ rolling walker and CGA 1 w/ no loss of balance w/ assistance as noted. Balance Sit (Static): Good (11/08/23819) Sit (Dynamic): Good (11/08/23819) Stand (Static): Fair (11/08/23819) Stand (Dynamic): Fair (11/08/23819) Patient and or Family Goal(s): to get well and to return home Patient Education Review of Precautions: Safety;Fall (no amb or transfers w/o nursing assist) (11/08/23819) Safety Awareness: Patient verbalizes insight of current deficits;Patient demonstrates carryover of insight during functional tasks;Patient can communicate basic needs (11/08/23819) Preferred learning method: Combination (11/08/23819) Barriers to learning: Medical Status (11/08/23819) Method of Education: Verbalized to patient;Demonstrated to patient;Patient demonstrated task;Written information provided to patient (fall prevention kit issued to pt) (11/08/23819) Topic of Education: Safety with mobility, Goals/plan of care, Use of assistive device, Fall prevention, and curb training and instructed pt that at current level of function if discharged home, pt isto use a rolling walker (except on stairs which are not large enough for all 4 legs of walker to fit on each stair) and have assist of 1 at all times for amb and transfers from a caregiver who can physically assist pt Method of Education: Written information provided to pt: verbalized understanding and or agreement of this information and demonstrated the exercise and or task Verbal discussion and explanation provided to pt: verbalized understanding and or agreement of thisinformation and demonstrated the exercise and or task Demonstrated the above task to pt: verbalized understanding and or agreement of this information and demonstrated the exercise and or task Treatment Provided: Therapeutic Activities 11 minutes: transfer training Education regarding fall prevention. Balance activity to improve strength, endurance and standing tolerance/safety: static standing at rolling walker w/ supervision 1. Gait Training 14 minutes: gait training with rolling walker curb training with rolling walker Evaluation Moderate Complexity 15 minutes - [id number]: Patient was cooperative, pleasant, motivated, and alert during treatment session. Moderate complexity evaluation performed and 1-2 personal factors or comorbidities were identified that will impact plan of care, including multiple steps at home andcardiac history. Patient presents with limitations in strength, transfers, gait, elevations, balance, and safety, which will impact plan of care. These limitations will be addressed by the goals set for this patient. Alarm Status Patient positioned in: Chair (recliner, foot rest elevated, juarez secure, brakes locked, scds B legs, waffle cushion on recliner) (11/08/23819) With: Pressure pad alarm intact and functioning and call kebede in reach (11/08/23819) Treatment Status: Treatment at bedside (11/08/23819) Goals: Demonstrate Transfers with: Sit to stand: supervision (with cues) Stand to sit: supervision (with cues) Demonstrate Ambulation: assistive device: rolling walker distance in feet: 500 level of assistance on level surface: supervision (with cues) Demonstrate curb negotiation contact guard or less w/ rolling walker Increase Safety: w/ functional mobility Time Frame: 10 sessions Assessment: Pt presents w/ deficits in strength, balance, and functional mobility w/ pt requiring min A 1 for transfers, CGA to supervision 1 to amb on level surfaces w/ rolling walker and CGA 1 for curb negotiation w/ rolling walker, AM PAC 16 and is not safe to transfer or amb without assistance. Provided that spouse can continue to assist pt w/ transfers and ambulation, at discharge would consider post acute services which may include out patient therapy or home health. The level of care will be determined in collaboration with the patient, family/caregiver and care team members. Skilled PT at [facility] is warranted to address deficits in strength, balance and functional mobility andto continue to assess discharge needs. Deficits requiring P.T. treatment needs: Safety;Mobility;Balance;Weakness (11/08/23819) Equipment Needs: Equipment needs: Rolling walker (11/08/23819) Treatment Plan: Transfer training, Gait training, Elevation training, Strengthening exercises: B LE, Balance activities, and Educate on safety with functional mobility Anticipated Frequency (on eval): (1-5 times per week) (11/08/23819) AM PAC Score with Stairs: 16 * Nikolai Chaudhari MD - 11/08/2023 7:16 AM EDTAssociated Order(s): UROLOGY CONSULT IP CONSULT - Urology [address] [address] Name: Lewis Alarcon Location: [facility] [id number] Date: 11/08/2023 Time: 7:16 AM REQUESTING SERVICE: Hospitalist PRESENTING PROBLEM: BPH, urinary retention. HPI: Patient is a 72-year-old male, known to Dr. Boogie, seen earlier this month with a history ofBPH and urinary retention. Patient has been on finasteride and tamsulosin in the past, the former being stopped at outside facility. Patient currently presents with dysuria, difficulties with suspected urinary tract infection. Past notes, H&P and inpatient notes are reviewed. No recent PSA value is noted. Patient's notes longstanding voiding difficulties, feels his urination has been challenging even with medication. BPH: Patient is being seen for BPH today. He has had the following symptoms: slow stream, need for catheter placement, and incomplete emptying. Severity is moderate. UTIs present in past. He has tried tamsulosin, finasteride, and indwelling juarez. He has previously had no surgery done. Problem has been present for years. Problem is getting worse. PSA Results: Lab Results Component Value Date/Time PSA - [facility] 1. 01/13/2021 04:37 PM PSA - [facility] 1.12 [...] performed by John Gordillo MD at OR [facility] INCISIONAL HERNIA REPAIR, LAP, REDUCIBLE left inguinal and umbelical INFORMATION 05/14/1988 lymph node removal KNEE ARTHROSCOPY/SURGERY PARTIAL HIP REPLACEMENT & PROSTH Right 09/02/2020 HEMIARTHROPLASTY HIP performed by Gianni Hubbard MD at OR [facility] REMOVE CATARACT, INSERT LENS PROSTH Left 03/23/2022 LEFT EXTRACAPSULAR CATARACT REMOVAL WITH INTRAOCULAR LENS performed by Rad Morgan MD at [facility] REMOVE CATARACT, INSERT LENS PROSTH Right 03/30/2022 RIGHT EXTRACAPSULAR CATARACT REMOVAL WITH INTRAOCULAR LENS performed by Rad Morgan MD at [facility] REMOVE TONSILS & ADENOIDS, AGE 12+ UMBIL HERNIA REPAIR (INCARCERATED) AGE 5+YR FAMILY HISTORY: Family History Problem Relation Name Age of Onset Other (Aneurysm) Father Other (Lymphoma) Mother SOCIAL HISTORY: Social History Tobacco Use Smoking status: Never Passive exposure: Never Smokeless tobacco: Never Vaping Use Vaping status: Never Used Substance Use Topics Alcohol use: Yes Comment: rarely Drug use: No ALLERGIES: Cat dander REVIEW OF SYSTEMS: Constitutional: (+) chills and (+) improved ENT: (-) stridor Cardiovascular: (-) chest pain Male : See HPI Musculoskeletal: (+) joint pain and (+) muscle stiffness Neurology: (+) loss of balance Psychiatry: (-) substance abuse PHYSICAL EXAMINATION: Most Recent Vital Signs: BP: 149 mmHg/75 mmHg (11/08/23299) Pulse: 68 (11/08/23299) Resp: 14 (11/08/23299) Temp: 35.89 C (11/08/23299) Temp Summary: Temp Min: 35.9 C (96.6 F) Max: 36.4 C (97.5 F) SpO2: 97 % (11/08/23299) O2 flow rate: Supplemental O2 Delivery: Room Air, None (11/08/23299) General: alert, awake, oriented to person and place and situation, no distress Heart: regular rate, regular rhythm Chest: clear to auscultation bilaterally Abdomen: soft, non-distended Back: no costo-vertebral angle tenderness Extremities: no edema, arthritic deformity : Juarez catheter in place, clear urine Psych: Appropriately conversant LAB LINKS:Labs reviewed as indicated below: CBC Results: Results for orders placed or performed during the hospital encounter of 11/07/23 CBC Result Value Ref Range WBC 6.24 4.00 - 10.80 K/uL RBC 3.95 4.50 - 5.25 M/uL HGB 11.9 (L) 14.0 - 16.8 g/dL HCT 36.8 (L) 40.0 - 48.4 % MCV 93.2 82.0 - 99.5 fL MCH 30.1 27.0 - 34.0 pg MCHC 32.3 32.0 - 36.0 g/dL RDW 13.4 11.5 - 15.5 % PLT 180 140 - 400 K/uL MPV 9.3 6.6 - 11.1 fL nRBCs 0 <=0 /100 WBCs Creatinine Results: Lab Results Component Value Date/Time CREATININE - [facility] 0.9 11/08/2023 04:18 AM CREATININE - [facility] 1.0 11/07/2023 02:20 PM CREATININE - [facility] 1.1 10/22/2023 09:47 AM CREATININE - [facility] 1.0 03/30/2020 10:15 AM [...] URINE 24 HOUR 1.053 06/24/2021 12:41 PM CULTURES: Urine culture November 03: Culture Growth 10,000 to 100,000 colonies/mL Klebsiella pneumoniae Abnormal Resulting Agency: Susceptibility Klebsiella pneumoniae MICROBROTH DILUTIONS Ampicillin/Sulbactam Susceptible Cefazolin Susceptible Cefepime Susceptible Ceftriaxone Susceptible Ciprofloxacin Susceptible 1 Gentamicin Susceptible Levofloxacin Intermediate 2 Nitrofurantoin Resistant Piperacillin Tazobactam Susceptible Trimeth/Sulfamethoxazole Susceptible IMAGING: CT scan Oct 2023: IMPRESSION: 1. Distended urinary bladder with no significant wall thickening. Correlate for urinary retention. 2. Stable bilateral renal cysts and nephrolithiasis. There is also a chronic nonobstructing stone at the right UPJ. 3. Small gallstone. 4. Colonic diverticulosis. IMPRESSION: 72 year old male with bladder outlet obstruction, urinary tract infection. PLAN: Findings reviewed with the patient. Seen the patient's ongoing difficulties since cessation of finasteride, I think it would be reasonable to restart. Typically, finasteride is not associated with significant orthostasis. 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 Will leave Juarez catheter in place, plan on outpatient trial of void in 1-2 weeks after urinary tract infection has had a chance to improve. Hopefully, this will be successful in the short term. Seen the patient's ongoing chronic difficulties will arrange for cystoscopy. Possibility of surgical intervention was discussed earlier this month with , reviewed again today. Patient is interested if this may offer symptom relief and a decreased interest of Juarez catheter placement in the future. Will arrange. Above content is personally reviewed. Patient vocalizes good understanding of the treatment plan. Thank you for allowing us to participate in this patient's care. Please contact our service with any questions or concerns. documented in this encounter Nursing Notes * Nasim Llanes RN - 11/08/2023 2:59 PM EDT Discharge instructions given to patient and , both verbalized understanding. Pt escorted out by WIRELESS ARCHITECT via Wheelchair, left via private vehicle. * Toya Donaldson RN - 11/08/2023 1:26 PM EDT You have a PCP appointment with Dr. Amanda on November 11 @ 12:00pm Please arrive 15 minutes early [facility] [address] [place] [address] You have a follow up appointment with a Urology Nurse on November 21 @ 9:00am please arrive 15 minutes early You have a follow up appointment with Dr. Boogie on January 15 @ 11:30am please arrive [address] Chaudhari [facility] [address], [facility] [address] * Martha Bundy NA/ANDI - 11/08/2023 11:20 AM EDT You have a PCP appointment with Dr. Amanda on November 11 @ 12:00pm Please arrive 15 minutes early [facility] [address] [place] [address] You have a follow up appointment with a Urology Nurse on November 21 @ 9:00am please arrive 15 minutes early You have a follow up appointment with Dr. Boogie on January 15 @ 11:30am please arrive [address] Chaudhari Urology [address], [facility] [address] * Martha Bundy NA/UDC - 11/08/2023 10:25 AM EDT You have a follow up appointment with a Urology Nurse on November 21 @ 9:00am please arrive 15 minutes early You have a follow up appointment with Dr. Boogie on January 15 @ 11:30am please arrive [address] Chaudhari [facility] [address] [place] [address] [place], [place] * Marsha Youssef RN - 11/07/2023 11:17 PM EDT VIRTUAL RN [facility]-[address] [address] Name: Lewis Alarcon Location: [facility] [id number]-[id number]/D Date: 11/07/2023 Time: 11:17 PM I completed the Admission Navigator. The patient was in the hospital. I was not in a hospital or clinic location. After connecting through [employer], the patient was identified by name and date of and / or wristband checked. Patient (or authorized legal sales representative womens health) was then informed that this was a Virtual Nurse visit and was being conducted confidentially over secure lines. I used a headset and other methods to ensure confidentiality for the patient. Patient acknowledged consent and understanding of privacy and security of the Virtual Nurse visit. I presented the opportunity for the patient or authorized legal sales representative womens health to ask any questions regarding the visit today. The patient or authorized legal sales representative womens health agreed to participate. * Angeli Rivera RN - 11/07/2023 11:05 PM EDT IN-HOUSE TRANSFER RECEIVING UNIT - NURSING [address] [address] Name: Lewis Alarcon Location: [facility] [id number]-[id number]/D Date: 11/07/2023 Time: 11:18 PM Patient received to room 6018 at 2249 Vital Signs: BP: 134 mmHg/92 mmHg (11/07/232254) Pulse: 90 (11/07/232254) Resp: 14 (11/07/232254) Temp: 36 C (11/07/232254) Temp Summary: Temp Min: 36 C (96.8 F) Max: 36.4 C (97.5 F) SpO2: 100 % (11/07/232254) O2 flow rate: Supplemental O2 Delivery: Room Air, None (11/07/232254) Pertinent transfer information upon arrival : Pt transported to room via stretcher. Pt pivoted fromstretcher to bed with 2 assist. Pt reports being treated o/p for UTI. Juarez catheter placed in ER for urinary retention. Pt admitted for observation and IV antibiotics. Pt oriented to room and call kebede. Assessment completed. Bed alarm on and functioning. Call kebede within reach. Pt connected with VRN to completed Admission navigator. Belongings received with patient: see flowsheet Verbal SBAR report received from: Trixie Casiano RN. Dual Licensed Skin Assessment completed by Amy Chaudhari RN and Fred Rivera RN. The patient is/has a N/A Skin Breakdown (includes non blanchable erythema): No documented in this encounter ED Notes * Mamadou Clarke MD - 11/07/2023 3:33 PM EDT HISTORY OF PRESENT ILLNESS Lewis Alarcon is a 72 year old male who presents to the ED for evaluation of Urinary Tract Infection Symptoms and Vomiting. The patient was seen at 11/07/23 1532. Patient presents to the emergency room at the advice of his physician in urgent care. This was after a phone call where the patient described himself as feeling unwell. There was a culture which showed urine positive for Klebsiella pneumonia from a sample on November 03. Patient reports that he is having some frequency and dysuria. He describes this as ongoing for weeks. He felt like it got worse on Sunday and went to care works on Sunday at which time he was placed oncephalexin. In addition he has been having lower abdominal crampy discomfort although he has not having any right now Reports that he has occasional problems with vomiting. He did not vomit today or yesterday. He has been having problems with vomiting ongoing for weeks. He notes that he has had diarrhea for about the last week. In addition his reports that he has a gurgling sound in his abdomen. Neither them believe that he has been running a fever Most recent admission from October 05 through October 10 for syncope, elevated lactic acid, complicatedUTI, orthostatic hypotension, dysautonomia, hyperparathyroidism, hypertension, diabetes September 03 he had a fall causing an intracranial bleed for which he was transferred to [place]. He was told that this had resolved spontaneously. Years ago he had a fall causing a spinal cord injury with requirement for surgical stabilization ofhis neck and left him with weakness to both arms with difficulty lifting above his shoulders. However he did not develop any leg weakness and is able to walk with a walker Ejection fraction from 09/06/2023 32% Urinary Tract Infection Symptoms Associated symptoms: vomiting Vomiting Review of Systems Gastrointestinal: Positive for vomiting. The patient's allergies, past history, and medications were reviewed. PHYSICAL EXAM Initial Vitals (see all): BP 113/61 | Pulse 73 | Resp 18 | Temp 97.5 | O2 100 %, Room Air, None | Weight 71.67 kg | Height 175.3 cm | BMI 23.33 kg/m2 Initial Pain Assessment (see all): 3 (mild pain)/10, location: groin ([facility] Adult Scale 0-10) General: Alert. appropriate for age. no acute distress. nontoxic. Skin: Warm, dry. Head: Atraumatic. Neck: trachea midline. No distended neck veins supple Eye: Normal conjunctiva. PERRL, EOMI, Ears, nose, mouth and throat: airway patent. No inflammation Cardiovascular: Normal peripheral perfusion. Regular rate and rhythm without murmurs or extra sounds. No distended neck veins. . Respiratory: no respiratory distress. The lungs are clear to auscultation without rales wheezes or rhonchi. Breath sounds equal and present bilaterally. Gastrointestinal: Non distended. Abdomen is soft and nontender. No guarding. No rebound. No organomegaly. He wears an adult diaper but is not wearing a catheter Rectal exam revealed no evidence of tenderness to the prostate considered normal size for age. No blood on the the digital rectal exam Musculoskeletal: No deformity. Neurological: No focal neurological deficit observed. alert. Psychiatric: Cooperative. 4.3 Differential diagnosis UTI, urosepsis, dehydration PROCEDURES AND TREATMENTS ED Orders | ED Results MEDICAL DECISION MAKING Nursing notes and vital signs were reviewed. ED Course as of 11/07/232199Nov 07, 2023 1638 EKG reviewed by ER physician. Normal sinus rhythm. Minimal voltage criteria for left ventricular hypertrophy may be normal variant. Inferior infarct age undetermined. Most recent EKG [DR] 1639 Most recent EKG from 10/06/2023 looks the same [] 2053 Patient has just voided Bedside ultrasound then showed large amounts of urinary retention [DR] [address] Oreilly who will kindly admit to telemetry observation [DR] ED Course User Index [] Mamadou Clarke MD Amount and/or Complexity of Data Reviewed Labs: ordered. Radiology: ordered. Risk Prescription drug management. Clinical Impressions Abdominal pain Urinary tract infection without hematuria, site unspecified Urinary retention Disposition Admitted. I discussed the management of this patient with the admitting provider and I made a decision to admit the patient. Admission Order Ordered Status . 11/07/232199 Assign to Observation ONCE Ordered Mamadou Clarke * Isis Jacob RN - 11/07/2023 1:55 PM EDT Sun started with burning with urination and dysuria. Sunday went to [facility]. Has been on an antibiotic since end of September for UTI. This was changed on Sunday. C/o pain in groin. [facility] called him today and told to come to ED due to continued symptoms and continued n/v and decreased appetite. documented in this encounter Miscellaneous Notes * Care Plan - Nasim Llanes RN - 11/08/2023 3:00 PM EDT Clinical Goal(s): Pt will be out of bed for all meals during this shift (11/08/23 0930) Possible barriers to meeting goal(s)/advancing plan of care: discomfort Stability of the patient: Moderately stable - low risk of patient condition declining or worsening Summary regarding today's goal(s): Met: pt was out of bed for meals during this shift Recommendations: continue to encourage pt to be out of bed. * Pt Handout (on AVS) - Leonarda Hope RN - 11/08/2023 1:14 PM EDT Images from the original note were not included. [id number] Discharge Instructions: Caring for Your Leg Bag You are going home with a urinary catheter and collection device (drainage bag) in place. One type of collection device is called a leg bag. This is a smaller drainage bag that you can wear on your leg to collect urine during the day. The bag can fit under your clothing. You can move around with greater ease when using a leg bag instead of a larger collection bag. You were shown how to care for your catheter in the hospital. This sheet will help you remember those steps when you are at home. Home care Wash your hands thoroughly before and after you care for your catheter or collection device. Gather your supplies: o Alcohol wipes o Soap and water o Towel and washcloth o Leg strap and leg bag Use soap and water to wash the area where your catheter enters your body. Rinse well. Secure the bag lelis to your leg: o Put the leg band high on your thigh with the product label pointing away from your leg. o Stretch the leg band in place and fasten. o Place the catheter tubing over the bag and secure it. You may secure it with a Velcro tab or other method, depending on the product you use. Be sure to leave enough loop in the catheter above the leg band so you won't pull on the tube. o Every 4 to 6 hours, reposition the band. This will prevent pressure from the elastic on your leg.You can do this by changing the bag to the other leg or by raising or lowering the leg band. o Wash the band as often as needed. You can hand wash and dry the leg band. Place the bag in the bag ellis. Clean the urine bag end of the catheter and your catheter port with an alcohol wipe. Place a towel under the bag and port to keep urine from dripping onto your leg. Before connecting the outlet valve at the bottom of the bag to the catheter, make sure that it is firmly closed. Flip the valve up toward the bag. It needs to snap firmly in place. Don't tug on the tubing. Be gentle. Attach the urine bag to the end of the catheter. Insert the connector snugly into the catheter port. You can prevent dribbling urine by bending the catheter tubing just below the tip and holding it while you disconnect it from the catheter. Be careful to keep the tip clean while connecting the leg bag tubing to the catheter. This keeps germs from getting into the system. Drain the bag when it's full. To drain the bag, flip the clamp downward. Direct the flexible outlet tube to control the flow of urine. You don?t have to disconnect the leg bag from the catheter toempty it. Raise your leg up to the edge of the toilet to reach the leg bag. Then you can empty the bag directly into the toilet. This way, you won?t need to bend over, which may be uncomfortable. Keep the leg bag clean. Your healthcare provider may advise that you use a certain solution to clean the bag. Solutions that may be advised include: o 2 parts vinegar and 3 parts water o 1 tablespoon of chlorine bleach mixed with a half cup of water Ask your healthcare provider how often you should clean your bag and what solution you should use ?to reduce odor and keep the bag free of germs. Shake the solution a bit and allow it to remain in the bag for 30 minutes. Drain the solution and rinse the bag with cold tap water. Hang the bag to drain and air dry. Remember to keep the drainage bag below the level of your bladder for correct drainage. Follow-up Make a follow-up appointment as directed by your healthcare provider. When to call your healthcare provider Call your healthcare provider right away if you have any of the following: Redness, swelling, or warmth around the catheter entry site Pus draining from your catheter entry site or into the catheter tubing and bag Blood, clots, or floating debris in the urine Nausea and vomiting Shaking chills Fever above 100.4F ( 38C), or as directed by your healthcare provider Pain that is not eased by medicine Catheter that falls out or is dislodged Last Reviewed Date: 07/12/202119994720-3344 [employer]. All rights reserved. This information is not intended as a substitute for professional medical care. Always follow your healthcare professional's instructions. * Pt Handout (on AVS) - Leonarda Hope RN - 11/08/2023 1:14 PM EDT Images from the original note were not included. [id number] Taking Care of Your Urinary Catheter Bag You have an indwelling urinary catheter. This drains urine from your bladder into a bag. The bag can be one that is used at your bedside. Or it can be a smaller bag that is strapped to your leg. Follow the steps below to care for a urinary bag. Step 1. Drain the bag Wash your hands well with soap and water to prevent infecting the urinary catheter and bag. If the short drainage tube is inserted into a pocket on the bag, take the drainage tube out of the pocket. Hold the drainage tube over a toilet or measuring container. Open the valve. Don?t touch the tip of the valve or let it touch the toilet or container. Wash your hands again. Some bags are disposable while others may be cleaned. Ask your care team for advice for your bag. Step 2. Clean the drainage tube When the bag is empty, clean the tip of the drainage valve with an alcohol wipe. Close the valve. Reinsert the drainage tube into the pocket, if there is one. Step 3. Clean your skin Wash your hands well before and after cleaning your skin. If you have a catheter (such as a Juarez) that enters through the urethra, clean the urethral area with soap and water 1 time(s) daily as you were taught by your healthcare provider. You should also clean after every bowel movement to prevent infection. o Don't pull on the tubing when cleaning so you don?t injure the urethra. o Don?t apply antibiotic ointment or any other antibacterial product to the urethra. o Don?t use lubricant on the urethra. o Don?t apply powder to the genital area or to the tubing. If you have a suprapubic catheter, your provider will tell you how to clean your skin around thecatheter. This is a catheter that was surgically placed into the bladder through the lower belly (abdomen). Step 4. Check and clean the catheter tubing Check the tubing. If there are kinks, cracks, clogs, or you can?t see into the tubing, you?ll need to change to new tubing as you were shown by your healthcare provider. If the current tubing can still be used, wash it with soap and water. Always wash the tubing in the direction away from your body. Don't pull on the tubing. Dry the tubing with a clean washcloth or paper towel. When to call your healthcare provider Call your healthcare provider right away if you have any of these: Little or no urine flowing into the bag Urine leaking where the catheter enters the body Pain, burning feeling, or redness where the catheter enters the body Bloody urine (a trace of blood is normal) Cloudy or bad-smelling urine, or sand-like grains in your urine Pain in your lower back or lower belly (abdomen) Your catheter falls out Fever of 100.4 F ( 38C ) or higher, or as advised by your provider Shaking chills Last Reviewed Date: 08/13/202319993415-6380 [employer]. All rights reserved. This information is not intended as a substitute for professional medical care. Always follow your healthcare professional's instructions. * Pt Handout (on AVS) - Leonarda Hope RN - 11/08/2023 1:14 PM EDT Images from the original note were not included. 10359 Discharge Instructions: Caring for Your Indwelling Urinary Catheter You have been discharged with an indwelling urinary catheter. It's also called a Juarez catheter. A catheter is a thin, flexible tube. An indwelling urinary catheter has 2 parts. The first part is a tube that drains urine from your bladder. The second part is a bag or other device that collects the urine. The most important thing to remember is that you want to prevent infection. Always wash your hands before handling your catheter bag or tubing. Draining the bedside bag Wash your hands with soap and clean, running water. Or use an alcohol-based hand tire mold tester that contains at least 60% alcohol. Hold the drainage tube over a toilet or measuring container. Unclamp the tube and let the bag drain. Don?t touch the tip of the drainage tube or let it touch the toilet or container. You don't need to rinse the bag or drainage tube. Cleaning the drainage tube When the bag is empty, clean the tip of the drainage tube with an alcohol wipe. Clamp the tube. Reinsert the tube into the pocket on the drainage bag. Cleaning your skin and tubing Clean the skin near the catheter with soap and water. Wash your genital area from front to back. Wash the catheter tubing. Always wash the catheter in the direction away from your body. You will be told when and how to change your bag and tubing. Don?t try to remove the catheter by yourself. You may shower with the catheter in place. Emptying a leg bag Wash your hands. Remove the stopper on the bag. Drain the bag into the toilet or a measuring container. Don?t let the tip of the drainage tube touch anything, including your fingers. Clean the tip of the drainage tube with alcohol. Replace the stopper. Follow-up care Make a follow-up appointment, or as directed by your healthcare provider. When to call your healthcare provider Call your healthcare provider right away if you have any of the following: Fever of 100.4F ( 38C) or higher, or as directed by your provider Chills Leakage around the catheter insertion site Increased spasms (uncontrollable twitching) in your legs, belly (abdomen), or bladder. Occasional mild spasms are normal. Burning in the urinary tract, penis, or genital area Nausea and vomiting Aching in the lower back Cloudy or bloody (pink or red) urine, sediment or mucus in the urine, or bad- smelling urine Last Reviewed Date: 01/12/202219999293-0991 [employer]. All rights reserved. This information is not intended as a substitute for professional medical care. Always follow your healthcare professional's instructions. * Pt Handout (on AVS) - Leonarda Hope RN - 11/08/2023 1:14 PM EDT Images from the original note were not included. 72487 Urinary Tract Infections in Men Urinary tract [...] scarring or long-term infections. Last Reviewed Date: 07/13/202319995083-4743 [employer]. All rights reserved. This information is not intended as a substitute for professional medical care. Always follow your healthcare professional's instructions. * Pt Handout (on AVS) - Leonarda Hope RN - 11/08/2023 1:13 PM EDT Images from the original note were not included. [id number] Finasteride Oral Tablet Brands: [employer] Uses This medicine is used for the following purposes: endocrine disorder hair loss prostate enlargement skin disorder Instructions This medicine may be taken with or without food. Keep the medicine at room temperature. Avoid heat and direct light. It is important that you keep taking each dose of this medicine on time even if you are feeling well. If you forget to take a dose on time, take it as soon as you remember. If it is almost time for thenext dose, do not take the missed dose. Return to your normal schedule. Do not take 2 doses at one time. Drug interactions can change how medicines work or increase risk for side effects. Tell your healthcare providers about all medicines taken. Include prescription and tpqu-vif-jrdedbr medicines, vitamins, and herbal medicines. Speak with your doctor or pharmacist before starting or stopping any medicine. Tell your doctor if symptoms do not get better or if they get worse. Do not suddenly stop taking this medicine. Check with your doctor before stopping. Cautions This medicine is not approved for use by women. Tell your doctor and pharmacist if you ever had an allergic reaction to a medicine. Do not use the medication any more than instructed. Women who are or in their childbearing years should not touch or handle this medicine. This medicine can be absorbed through the woman's skin and harm the unborn baby. Do not share this medicine with anyone who has not been prescribed this medicine. Side Effects The following is a list of some common side effects from this medicine. Please speak with your doctor about what you should do if you experience these or other side effects. impotence problems with sexual functions or desire Call your doctor or get medical help right away if you notice any of these more serious side effects: breast lumps breast pain or swelling pain or swelling in the testicles A few people may have an allergic reaction to this medicine. Symptoms can include difficulty breathing, skin rash, itching, swelling, or severe dizziness. If you notice any of these symptoms, seek medical help quickly. Extra Please speak with your doctor, nurse, or pharmacist if you have any questions about this medicine. [email or web address] IMPORTANT NOTE: This document tells you briefly how to take your medicine, but it does not tell youall there is to know about it. Your doctor or pharmacist may give you other documents about your medicine. Please talk to them if you have any questions. Always follow their advice. There is a more complete description of this medicine available in Syrian. Scan this code on your smartphone or tablet or use the web address below. You can also ask your pharmacist for a printout. If you have any questions, please ask your pharmacist. The display and use of this drug information is subject to Terms of Use. Copyright(c) 2023 [employer]. [employer]. All rights reserved. This information is not intended as a substitute for professional medical care. Always follow your healthcare professional's instructions. * Pt Handout (on AVS) - Leonarda Hope RN - 11/08/2023 1:12 PM EDT Images from the original note were not included. 2501-3065 Cefdinir Oral Capsule Uses For treating bacterial infection. Instructions This medicine may be taken with or without food. Keep the medicine at room temperature. Avoid heat and direct light. Do not take this medicine with antacids. Do not take any antacid or vitamins with magnesium, calcium, aluminum, or iron for 2 hours before and 2 hours after taking this medicine. If you forget to take a dose on time, take it as soon as you remember. If it is almost time for thenext dose, do not take the missed dose. Return to your normal schedule. Do not take 2 doses at one time. Tell your doctor and pharmacist about all your medicines. Include prescription and voet-fol-lphwbbrcppahtxek, vitamins, and herbal medicines. Keep using this medicine for the full number of days that it is prescribed. Do not stop the medicine even if you start to feel better. If you have diabetes and use urine glucose tests, this medicine may cause incorrect results. Pleasecheck with your doctor before making any changes to your diabetes treatment plan. Keep all appointments for medical exams and tests while on this medicine. Cautions Tell your doctor and pharmacist if you ever had an allergic reaction to a medicine. Do not use the medication any more than instructed. Contact your doctor if you notice a change in the amount or darkening of your urine. Speak with your health care provider before receiving any vaccinations. Please tell your doctor if you have moderate to severe diarrhea while on this medicine. Do not treat the diarrhea with jbxb-kaf-yqqtqrc diarrhea medicine. Tell the doctor or pharmacist if you are , planning to be , or . Do not start or stop any other medicines without first speaking to your doctor or pharmacist. Do not share this medicine with anyone who has not been prescribed this medicine. Side Effects The following is a list of some common side effects from this medicine. Please speak with your doctor about what you should do if you experience these or other side effects. diarrhea changes in the color of the urine or stool headaches nausea and vomiting stomach upset or abdominal pain yeast infection of mouth vaginal itching or yeast infection Call your doctor or get medical help right away if you notice any of these more serious side effects: confusion severe, watery or bloody diarrhea signs of liver damage (such as yellowing of eye or skin, dark urine, or unusual tiredness) red, burning, or itchy skin increased urinary frequency urinating less often A few people may have an allergic reaction to this medicine. Symptoms can include difficulty breathing, skin rash, itching, swelling, or severe dizziness. If you notice any of these symptoms, seek medical help quickly. Extra Please speak with your doctor, nurse, or pharmacist if you have any questions about this medicine. [email or web address] IMPORTANT NOTE: This document tells you briefly how to take your medicine, but it does not tell youall there is to know about it. Your doctor or pharmacist may give you other documents about your medicine. Please talk to them if you have any questions. Always follow their advice. There is a more complete description of this medicine available in Syrian. Scan this code on your smartphone or tablet or use the web address below. You can also ask your pharmacist for a printout. If you have any questions, please ask your pharmacist. The display and use of this drug information is subject to Terms of Use. Copyright(c) 2023 [employer]. 4076-9760 [employer]. All rights reserved. This information is not intended as a substitute for professional medical care. Always follow your healthcare professional's instructions. * Care Plan - Angeli Rivera RN - 11/08/2023 5:19 AM EDT Clinical Goal(s): Pt will have adequate pain control this shift (11/07/23 6844) Possible barriers to meeting goal(s)/advancing plan of care: acuity of illness Stability of the patient: Moderately stable - low risk of patient condition declining or worsening Summary regarding today's goal(s): Met: Pt reported adequate pain control this shift Recommendations: monitor pain level and administer analgesia per order * Medical Necessity - Landen Leiva, Utilization Review Staff - 11/07/2023 10:02 PM EDT AdmissionCare Guideline: Urinary Tract Infection (UTI) - OBS, Observation Based on the indications selected for the patient, the bed status of Observation was determined to be MET The following indications were selected as present at the time of evaluation of the patient: - Observation Care Admission Criteria - Observation care is indicated for 1 or more of the following: - Vomiting Additional Information: Abdominal pain Urinary tract infection without hematuria, site unspecified Urinary retention rocephin AdmissionCare documentation entered by: Landen Leiva [facility], 28th edition, Copyright 2023 [facility] All Rights Reserved. [id number]:02:[id number]:00 Solely for purpose of utilization review and payment; not a diagnostic tool * ED Collections Analyst Note - Tanvi Casiano LPN - 11/07/2023 7:37 PM EDT 0: Report received from Letty YANG and care assumed. Patient resting on stretcher, at bedside. 0: Rounded on patient, needs met, call kebede within reach and use reinforced. 0: IUBC juarez placed. Positive urine return. Patient tolerated well. 5: Report called to 6b documented in this encounter Plan of Treatment Upcoming Encounters Date Type Department Care Team (Late st Contact Info) Description 11/09/2023 5:50 PM EDT Anticoagulation Pharmacy, [place] S[place] [address] Pharmacist2, [facility] [place] [address] 11/12/2023 12:00 PM EDT Office Visit Family [place] [address] [facility] [place] [phone] Kaiser Amanda MD [address] [facility] [place] [address] 11/14/2023 1:30 PM EDT Office Visit Cardiology, [place] [address] [place] [address] [place], [facility] Cardiology [address] [place] [address] 11/22/2023 9:00 AM EDT Nurse Only Urology [place] [address] [place] [address] [place], Nurse Urology 27 [facility] [address] [place] [address] 12/11/2023 2:00 PM EDT Office Visit Cardiology, [place] [address] [facility] [place] [address] Stefani Mooney CRNP [address] [place] [address] 01/16/2024 11:30 AM EDT Office Visit Urology Aleida RinaldiRolo [address] [place] [address] Bert Boogie Jr., MD [address] [place] [address] 01/21/2024 2:00 PM EDT Office Visit Endocrinology A[address]a [address], [place] [phone] Sakina Jones MD 100 [facility] [place] [id number] 01/25/2024 3:30 PM EDT Office Visit [facility] [place] [address] [place] [address] Laney Hogue MD [address] [place] [address] 02/25/2024 9:20 AM EDT Office Visit [facility] [address] [facility] [place] [phone] Kaiser Amanda MD [address] [facility] [place] [address] 10/21/2024 9:15 AM EDT Appointment Radiology, [facility] [address] [facility] [place] [address] 10/29/2024 9:45 AM EDT Office Visit Urology [place] [address] [facility] [address] [place] [address] Bert Boogie Jr., MD [address] [place] [address] Pending Results Name Type Priority Associated Diagnoses Date /Time CULTURE, BLOOD Lab Routine 11/07/2023 4:01 PM EDT CULTURE, BLOOD Lab Routine 11/07/2023 4:01 PM EDT CULTURE, URINE, QUANTITATIVE Lab STAT 11/07/2023 6:07 PM EDT Scheduled Orders Name Type Priority Associated Diagnoses Orde r Schedule CULTURE, URINE, QUANTITATIVE Lab STAT Perform Now for 1 Occurrences starting 11/07/2023 until 11/07/2023 Scheduled Procedures Name Priority Associated Diagnoses Date/Ti [...] D LEVEL ONCE IN A LIFETIME-USE SMARTSET# [id number] Completed 07/26/2023, 02/26/2023, 01/23/2023, Additional history exists [...] this encounter Medical Devices Implanted Type Area House Servant Device Identifier Shelf Expiration Date Model / Serial / Lot Cement Bone Simplex Hv & G - [id number] Implanted:Qty: 2 on 09/02/2020 by Gianni Hubbard MD at OR [facility] Right: Hip LUDY : ORTHOPAEDICS 08/11/2021 [id number] / / [id number] Spacer Ring Aclde Distal Lg 14 - [id number] Implanted:Qty: 1 on 09/02/2020 by Gianni Hubbard MD at OR [facility] Right: Hip LUDY : ORTHOPAEDICS 11/25/2024 [id number] / / Accolade C Cs 127 6 37/158 - [id number] Implanted:Qty: 1 on 09/02/2020 by Gianni Hubbard MD at OR [facility] Right: Hip LUDY : ORTHOPAEDICS 05/29/2023 [id number] / / [id number] Hip Cocr Lfit Head V40 28/+4 - [id number] Implanted:Qty: 1 on 09/02/2020 by Gianni Hubbard MD at OR [facility] Right: Hip LUDY : ORTHOPAEDICS 11/15/2024 [id number] / / [id number] Hip Head Bipol Uhr Uni 28x52 - [id number] Implanted:Qty: 1 on 09/02/2020 by Gianni Hubbard MD at OR [facility] Right: Hip LUDY : ORTHOPAEDICS 11/25/2024 [id number] / / [id number] Lens Intraoc 17.5 - [id number] - [id number] Implanted:Qty: 1 on 03/23/2022 by Rad Morgan MD at OR [facility] [address] Left: Eye BAUSCH & LOMB 10/11/2026 [id number] / [id number] / [id number] Lens Intraoc 18.0 - [id number] - [id number] Implanted:Qty: 1 on 03/30/2022 by Rad Morgan MD at OR [facility] [address] Right: Eye BAUSCH & LOMB 01/11/2027 [id number] / [id number] / [id number] documented as of this encounter Procedures Procedure Name Priority Date/Time Associated Diagnosis Comments GLUCOSE METER, POINT OF CARE MARVA 11/08/2023 11:37 AM EDT GLUCOSE METER, POINT OF CARE MARVA 11/08/2023 7:41 AM EDT HEMOGLOBIN A1C Routine 11/08/2023 4:18 AM EDT BASIC METABOLIC PANEL Routine 11/08/2023 4:18 AM EDT PT INR Routine 11/08/2023 4:18 AM EDT CBC Routine 11/08/2023 4:18 AM EDT GLUCOSE METER, POINT OF CARE MARVA 11/07/2023 10:59 PM EDT BLOOD GAS, VENOUS STAT 11/07/2023 7:3 9 PM EDT LACTATE Routine 11/07/2023 7:[address] ABD/PELVIS W IV CONTRAST - WO ORAL CONTRAST STAT 11/07/2023 7:28 PM EDT MICROSCOPIC EXAM, URINE STAT 11/07/2023 6:07 PM EDT URINALYSIS, REFLEX TO MICROSCOPIC STAT 11/07/2023 6:07 PM EDT CULTURE, BLOOD Routine 11/07/2023 4:01 PM EDT CULTURE, BLOOD Routine 11/07/2023 4:01 PM EDT EXTRA LIGHT BLUE TOP STAT 11/07/2023 2:20 PM EDT DIFFERENTIAL, AUTOMATED STAT 11/07/2023 2:20 PM EDT PROCALCITONIN Add-on 11/07/2023 2:20 PM EDT COMPREHENSIVE METABOLIC PANEL STAT 11/07/2023 2:20 PM EDT CBC STAT 11/07/2023 2:20 PM EDT LIPASE STAT 11/07/2023 2:20 PM EDT LACTATE Routine 11/07/2023 2:20 PM EDT CBC STAT 11/07/2023 2:20 PM EDT documented in this encounter Results * (ABNORMAL) GLUCOSE METER, POINT OF CARE (11/08/2023 11:37 AM EDT) Glucose Meter 180(H) 70 - 120 mg/dL 11/08/2023 11:49 AM EDT [facility] Blood Whole blood specimen / Unknown 11/08/2023 11:37 AM EDT 11/08/2023 11:49 AM EDT Jakob Peñaloza MD LAB POINT OF CARE T EST DOCKED DEVICE UNSOLICITED RESULTS Performing Organization Address City/[facility]/ZIP Co de Phone Number [facility] [address] [place] [address] * GLUCOSE METER, POINT OF CARE (11/08/2023 7:41 AM EDT) Glucose Meter 84 70 - 120 mg/dL 11/08/2023 7:47 AM EDT [facility] Blood Whole blood specimen / Unknown 11/08/2023 7:41 AM EDT 11/08/2023 7:47 AM EDT Jakob Peñaloza MD LAB POINT OF CARE T EST DOCKED DEVICE UNSOLICITED RESULTS Performing Organization Address City/[facility]/ZIP Co de Phone Number [facility] [address] [place] [address] * (ABNORMAL) PT INR (11/08/2023 4:18 AM EDT) Pathologist [facility] Prothrombin Time 29.0(H) 11.6 - 15.2 seconds 11/08/2023 5:36 AM EDT LABORATORY [facility] INR 2.7(H) 0.8 - 1.2 11/08/2023 5:36 AM EDT LABORATORY [facility] Blood Venous blood specimen / Unknown Venipuncture / Unknown 11/08/2023 4:18 AM EDT 11/08/2023 4:48 AM EDT Narrative LABORATORY [facility] - 11/08/2023 5:36 AM EDT Warfarin Therapy INR: 2.0-3.0 conventional anticoagulation INR: 2.5-3.5 high intensity anticoagulation Jose Juan Edith Steve [facility] LAB BLOOD ORDERA BLES Performing Organization Address City/[facility]/ZIP Co de Phone Number LABORATORY [address] [address] * (ABNORMAL) HEMOGLOBIN A1C (11/08/2023 4:18 AM EDT) Pathologist [facility] Hemoglobin A1C 6.8(H) 4.0 - 5.6 % 11/08/2023 2:57 PM EDT LABORATORY [facility] Comment:The use of HbA1c to monitor glycemic status is based on normal hemoglobin and HbA composition. This test should not be used in patients with abnormal hemoglobin that affects the half life of the red blood cell or the in vivo glycation rates. Estimated Average Glucose 148(H) <126 mg/dL 11/08/2023 2:57 PM EDT LABORATORY [facility] Blood Venous blood specimen / Unknown Venipuncture / Unknown 11/08/2023 4:18 AM EDT 11/08/2023 4:48 AM EDT Orlando Armando PA-C LAB BLOOD ORDERABLES LABORATORY [address] [address] * (ABNORMAL) BASIC METABOLIC PANEL (11/08/2023 4:18 AM EDT) Pathologist [facility] BUN 14 6 - 20 mg/dL 11/08/2023 5:32 AM EDT LABORATORY [facility] Creatinine 0.9 0.6 - 1.2 mg/dL 11/08/2023 5:32 AM EDT LABORATORY GL Estimated Glomerular Filtration Rate 87 >=60 mL/min 11/08/2023 5:32 AM EDT LABORATORY GL Comment:eGFR is calculated b ased on the CKD-EPI 2020 equation Sodium 144 135 - 146 mmol/L 11/08/2023 5:32 AM EDT LABORATORY GLH Potassium 3.8 3.5 - 5.1 mmol/L 11/08/2023 5:32 AM EDT LABORATORY GL[facility] Chloride 110(H) 98 - 107 mmol/L 11/08/2023 5:32 AM EDT LABORATORY GL[facility] CO2 24 22 - 32 mmol/L 11/08/2023 5:32 AM EDT LABORATORY GL Anion Gap 10 7 - 15 mmol/L 11/08/2023 5:32 AM EDT LABORATORY GL Glucose 86 70 - 120 mg/dL 11/08/2023 5:32 AM EDT LABORATORY GL Calcium 7.9(L) 8.4 - 10.2 mg/dL 11/08/2023 5:32 AM EDT LABORATORY [facility] Blood Venous blood specimen / Unknown Venipuncture / Unknown 11/08/2023 4:18 AM EDT 11/08/2023 4:48 AM EDT Orlando Armando PA-C LAB BLOOD ORDERABLES Performing Organization Address City/State/[facility] Co de Phone Number LABORATORY [address] [address] * (ABNORMAL) CBC (11/08/2023 4:18 AM EDT) WBC 6.24 4.00 - 10.80 K/uL 11/08/2023 4:55 AM EDT LABORATORY GL RBC 3.95 4.50 - 5.25 M/uL 11/08/2023 4:55 AM EDT LABORATORY GL HGB 11.9(L) 14.0 - 16.8 g/dL 11/08/2023 4:55 AM EDT LABORATORY GL HCT 36.8(L) 40.0 - 48.4 % 11/08/2023 4:55 AM EDT LABORATORY [facility] MCV 93.2 82.0 - 99.5 fL 11/08/2023 4:55 AM EDT LABORATORY [facility] MCH 30.1 27.0 - 34.0 pg 11/08/2023 4:55 AM EDT LABORATORY [facility] MCHC 32.3 32.0 - 36.0 g/dL 11/08/2023 4:55 AM EDT LABORATORY [facility] RDW 13.4 11.5 - 15.5 % 11/08/2023 4:55 AM EDT LABORATORY [facility] PLT 180 140 - 400 K/uL 11/08/2023 4:55 AM EDT LABORATORY [facility] MPV 9.3 6.6 - 11.1 fL 11/08/2023 4:55 AM EDT LABORATORY [facility] nRBCs 0 <=0 /100 WBCs 11/08/2023 4:55 AM EDT LABORATORY [facility] Blood Venous blood specimen / Unknown Venipuncture / Unknown 11/08/2023 4:18 AM EDT 11/08/2023 4:48 AM EDT Orlando Armando PA-C LAB BLOOD ORDERABLES Performing Organization Address [facility] Co de Phone Number LABORATORY [address] [phone] * GLUCOSE METER, POINT OF CARE (11/07/2023 10:59 PM EDT) [facility] Glucose Meter 92 70 - 120 mg/dL 11/07/2023 11:04 PM EDT [facility] Blood Whole blood specimen / Unknown 11/07/2023 10:59 PM EDT 11/07/2023 11:04 PM EDT Jakob Peñaloza MD LAB POINT OF CARE T EST DOCKED DEVICE UNSOLICITED RESULTS Performing Organization Address [facility]/ZIP Co de Phone Number [facility] [address] [place] [phone] * (ABNORMAL) BLOOD GAS, VENOUS (11/07/2023 7:39 PM EDT) Temperature 37.0 C 11/07/2023 7:45 PM EDT LABORATORY GLH pH, Venous 7.335 7.320 - 7.430 units 11/07/2023 7:45 PM EDT LABORATORY GLH pCO2, Venous 47.9 40.0 - 60.0 mmHg 11/07/2023 7:45 PM EDT LABORATORY GLH pO2, Venous 27.8 25.0 - 50.0 mmHg 11/07/2023 7:45 PM EDT LABORATORY GLH Base Excess, Venous -0.8 -2.0 - 2.0 mmol/L 11/07/2023 7:45 PM EDT LABORATORY GLH HGB 12.0(L) 14.0 - 16.8 g/dL 11/07/2023 7:45 PM EDT LABORATORY GLH Oxyhemoglobin, Venous 38.0(L) 40.0 - 85.0 % total Hgb 11/07/2023 7:45 PM EDT LABORATORY GLH Carboxyhemoglobi n, Whole Blood 0.7 <=1.5 % total Hgb 11/07/2023 7:45 PM EDT LABORATORY GL[facility] Comment:Smokers: 0-9.0 % Methemoglobin, Whole Blood 0.4 <=1.5 % total Hgb 11/07/2023 7:45 PM EDT LABORATORY GLH Reduced Hemoglobin, Venous 60.9 % total Hgb 11/07/2023 7:45 PM EDT LABORATORY GLH O2 Content, Venous 6.4(L) 7.0 - 18.0 %vol 11/07/2023 7:45 PM EDT LABORATORY GLH Bicarbonate, Whole Blood 24.8 23.0 - 31.0 mmol/L 11/07/2023 7:45 PM EDT LABORATORY GL[facility] Blood Venous blood specimen / Unknown Venipuncture / Unknown 11/07/2023 7:39 PM EDT 11/07/2023 7:42 PM EDT Mamadou Clarke MD LAB BLOOD ORDERABLES LABORATORY [facility] [address] [place] [address] * LACTATE (11/07/2023 7:39 PM EDT) Lactate 1.8 0.4 - 2.0 mmol/L 11/07/2023 7:56 PM EDT LABORATORY [facility] Blood Venous blood specimen / Unknown Venipuncture / Unknown 11/07/2023 7:39 PM EDT 11/07/2023 7:42 PM EDT Mamadou Clarke MD LAB BLOOD ORDERABLES LABORATORY [facility] [address] [facility] [place] [address] * CT ABD/PELVIS W IV CONTRAST - WO ORAL CONTRAST (11/07/2023 7:28 PM EDT) Anatomical Region Laterality Modality Body, Abdomen, Pelvis Computed T omography 11/07/2023 7:19 PM EDT Impressions 11/07/2023 8:22 PM EDT IMPRESSION: 1. Distended urinary bladder with no significant wall thickening. Correlate for urinary retention. 2. Stable bilateral renal cysts and nephrolithiasis. There is also a chronic nonobstructing stone at the right UPJ. 3. Small gallstone. 4. Colonic diverticulosis. THIS DOCUMENT HAS BEEN ELECTRONICALLY SIGNED BY CHARAN STEVE MD Narrative 11/07/2023 8:22 PM EDT PROCEDURE INFORMATION: Exam: CT Abdomen And Pelvis With Contrast Exam date and time: 11/07/2023 7:19 PM Age: 72 years old Clinical indication: Abdominal pain; Additional info: UTI, abdominal pain TECHNIQUE: Imaging protocol: Computed tomography of the [...] volume: 80 ml; Contrast route: INTRAVENOUS (IV); COMPARISON: CT ABD/PELVIS W IV CONTRAST - WO ORAL CONTRAST 09/09/2023 5:33 AM FINDINGS: Liver: Unremarkable. No mass. Gallbladder and biliary ducts: Small gallstone. No acute cholecystitis. Pancreas: Fatty infiltration within the pancreas. Spleen: Unremarkable. No mass. Adrenal glands: Unremarkable. No mass. Kidneys and ureters: Stable bilateral renal cysts and renal stones. Unchanged nonobstructing stone measuring 1.4 cm at the right UPJ. No hydronephrosis. Stomach and bowel: Colonic diverticulosis. No acute diverticulitis. No significant mucosal thickening. No bowel obstruction. Appendix: No evidence of appendicitis. Intraperitoneal space: No free air. No significant fluid collection. Vasculature: No abdominal aortic aneurysm. Lymph nodes: No enlarged lymph nodes. Urinary bladder: Distended urinary bladder with no significant wall thickening. Reproductive: Mild prostatomegaly. Bones/joints: Status post right hip arthroplasty. Soft tissues: No bowel containing hernia. Procedure Note Charan Steve MD - 11/07/2023 PROCEDURE INFORMATION: Exam: CT Abdomen And Pelvis With Contrast Exam date and time: 11/07/2023 7:19 PM Age: 72 years old Clinical indication: Abdominal pain; Additional info: UTI, abdominal pain TECHNIQUE: Imaging protocol: Computed tomography of the abdomen and pelvis withcontrast. Radiation optimization: All CT scans at this facility use at least one ofthese dose optimization techniques: automated exposure control; mA and/or kV adjustment per patient size (includes targeted exams where dose is matchedto clinical indication); or iterative reconstruction. Contrast material: ISOVUE 370; Contrast volume: 80 ml; Contrast route: INTRAVENOUS (IV); COMPARISON: CT ABD/PELVIS W IV CONTRAST - WO ORAL CONTRAST 09/09/2023 5:33 AM FINDINGS: Liver: Unremarkable. No mass. Gallbladder and biliary ducts: Small gallstone. No acute cholecystitis. Pancreas: Fatty infiltration within the pancreas. Spleen: Unremarkable. No mass. Adrenal glands: Unremarkable. No mass. Kidneys and ureters: Stable bilateral renal cysts and renal stones.Unchanged nonobstructing stone measuring 1.4 cm at the right UPJ. No hydronephrosis. Stomach and bowel: Colonic diverticulosis. No acute diverticulitis. No significant mucosal thickening. No bowel obstruction. Appendix: No evidence of appendicitis. Intraperitoneal space: No free air. No significant fluid collection. Vasculature: No abdominal aortic aneurysm. Lymph nodes: No enlarged lymph nodes. Urinary bladder: Distended urinary bladder with no significant wallthickening. Reproductive: Mild prostatomegaly. Bones/joints: Status post right hip arthroplasty. Soft tissues: No bowel containing hernia. IMPRESSION IMPRESSION: 1. Distended urinary bladder with no significant wall thickening.Correlate for urinary retention. 2. Stable bilateral renal cysts and nephrolithiasis. There is also achronic nonobstructing stone at the right UPJ. 3. Small gallstone. 4. Colonic diverticulosis. THIS DOCUMENT HAS BEEN ELECTRONICALLY SIGNED BY CHARAN STEVE MD Mamadou Clarke MD RAD CT * (ABNORMAL) MICROSCOPIC EXAM, URINE (11/07/2023 6:07 PM EDT) RBC, Urine 0-2 0 - 2 /HPF 11/07/2023 6:43 PM EDT LABORATORY [facility] WBC, Urine 30-49(A) 0 - 2 /HPF 11/07/2023 6:43 PM EDT LABORATORY [facility] Bacteria, Urine 51-100(A) 0 - 25 /HPF 11/07/2023 6:43 PM EDT LABORATORY [facility] Urine Urine specimen obtained by clean catch procedure / Unknown Non-blood Collection / Unknown 11/07/2023 6:07 PM EDT 11/07/2023 6:12 PM EDT Laney Brito PA-C LAB URINE ORDER [facility] LABORATORY [facility] [address] [place] [address] * (ABNORMAL) URINALYSIS, REFLEX TO MICROSCOPIC (11/07/2023 6:07 PM EDT) Color, Urine Yellow Light Yellow, Yellow, Dark Yellow 11/07/2023 6:19 PM EDT LABORATORY [facility] Clarity, Urine Clear Clear 11/07/2023 6:19 PM EDT LABORATORY [facility] Glucose, Urine Negative Negative mg/dL 11/07/2023 6:19 PM EDT LABORATORY [facility] Bilirubin, Urine Negative Negative 11/07/2023 6:19 PM EDT LABORATORY [facility] Ketone, Urine Negative Negative mg/dL 11/07/2023 6:19 PM EDT LABORATORY [facility] Specific [place], Urine 1.009 1.003 - 1.030 11/07/2023 6:19 PM EDT LABORATORY [facility] Blood, Urine Negative Negative 11/07/2023 6:19 PM EDT LABORATORY [facility] pH, Urine 5.5 5.0 - 7.5 Units 11/07/2023 6:19 PM EDT LABORATORY [facility] Protein, Urine Negative Negative mg/dL 11/07/2023 6:19 PM EDT LABORATORY [facility] Urobilinogen, Urine 0.2 0.2, 1.0 mg/dL 11/07/2023 6:19 PM EDT LABORATORY [facility] Nitrite, Urine Negative Negative 11/07/2023 6:19 PM EDT LABORATORY [facility] Esterase, Urine Moderate(A) Negative 11/07/2023 6:19 PM EDT LABORATORY [facility] Urine Urine specimen obtained by clean catch procedure / Unknown Non-blood Collection / Unknown 11/07/2023 6:07 PM EDT 11/07/2023 6:12 PM EDT Laney Brito PA-C LAB URINE ORDER [facility] LABORATORY [facility] [address] [place] [address] * PROCALCITONIN (11/07/2023 2:20 PM EDT) Procalcitonin 0.08 <0.10 ng/mL 11/07/2023 4:21 PM EDT LABORATORY [facility] Blood Venous blood specimen / Unknown Venipuncture / Unknown 11/07/2023 2:20 PM EDT 11/07/2023 2:23 PM EDT Narrative LABORATORY [facility] - 11/07/2023 4:21 PM EDT Less than 0.5 ng/mL: Low risk for progression to sepsis. Review patients condition for localized infections. 0.5 to 2.0 ng/mL: Intermediate risk for progresion to sepsis. Review underlying conditions. Recommend repeat PCT after 6 hours has elapsed. Greater than 2.0 ng/mL: high risk for progression to sepsis unless other causes are known. Mamadou Clarke MD LAB BLOOD ORDERABLES LABORATORY [facility] [address] [place] [address] * DIFFERENTIAL, AUTOMATED (11/07/2023 2:20 PM EDT) WBC 7.67 4.00 - 10.80 K/uL 11/07/2023 2:27 PM EDT LABORATORY [facility] Neutrophils % 61.1 40.0 - 75.0 % 11/07/2023 2:27 PM EDT LABORATORY [facility] Lymphocytes % 26.3 18.0 - 42.0 % 11/07/2023 2:27 PM EDT LABORATORY GL Monocytes % 7.7 1.0 - 11.0 % 11/07/2023 2:27 PM EDT LABORATORY GL Eosinophils % 3.8 0.0 - 6.0 % 11/07/2023 2:27 PM EDT LABORATORY [facility] Basophils % 0.7 0.0 - 2.0 % 11/07/2023 2:27 PM EDT LABORATORY GL Immature Granulocytes % 0.4 0.0 - 2.0 % 11/07/2023 2:27 PM EDT LABORATORY [facility] Absolute Neutrophils 4.69 1.80 - 7.70 K/uL 11/07/2023 2:27 PM EDT LABORATORY [facility] Absolute Lymphocytes 2.02 1.00 - 4.80 K/ul 11/07/2023 2:27 PM EDT LABORATORY [facility] Absolute Monocytes 0.59 0.00 - 1.10 K/uL 11/07/2023 2:27 PM EDT LABORATORY [facility] Absolute Eosinophils 0.29 0.00 - 0.70 K/uL 11/07/2023 2:27 PM EDT LABORATORY GL Absolute Basophils 0.05 0.00 - 0.20 K/uL 11/07/2023 2:27 PM EDT LABORATORY GL Absolute Immature Granulocytes 0.03 0.00 - 0.20 K/uL 11/07/2023 2:27 PM EDT LABORATORY GL Blood Venous blood specimen / Unknown Venipuncture / Unknown 11/07/2023 2:20 PM EDT 11/07/2023 2:23 PM EDT Laney Brito PA-C LAB BLOOD ORDER [facility] LABORATORY [facility] [address] [place] [id number] * (ABNORMAL) CBC (11/07/2023 2:20 PM EDT) [facility] WBC 7.67 4.00 - 10.80 K/uL 11/07/2023 2:27 PM EDT LABORATORY [facility] RBC 4.23 4.50 - 5.25 M/uL 11/07/2023 2:27 PM EDT LABORATORY [facility] HGB 13.0(L) 14.0 - 16.8 g/dL 11/07/2023 2:27 PM EDT LABORATORY GL HCT 39.6(L) 40.0 - 48.4 % 11/07/2023 2:27 PM EDT LABORATORY [facility] MCV 93.6 82.0 - 99.5 fL 11/07/2023 2:27 PM EDT LABORATORY [facility] MCH 30.7 27.0 - 34.0 pg 11/07/2023 2:27 PM EDT LABORATORY [facility] MCHC 32.8 32.0 - 36.0 g/dL 11/07/2023 2:27 PM EDT LABORATORY [facility] RDW 13.5 11.5 - 15.5 % 11/07/2023 2:27 PM EDT LABORATORY [facility] PLT 214 140 - 400 K/uL 11/07/2023 2:27 PM EDT LABORATORY [facility] MPV 8.7 6.6 - 11.1 fL 11/07/2023 2:27 PM EDT LABORATORY GL nRBCs 0 <=0 /100 WBCs 11/07/2023 2:27 PM EDT LABORATORY [facility] Blood Venous blood specimen / Unknown Venipuncture / Unknown 11/07/2023 2:20 PM EDT 11/07/2023 2:23 PM EDT Laney Brito PA-C LAB BLOOD ORDER [facility] LABORATORY [facility] [address] [facility] [place] [id number] * (ABNORMAL) LACTATE (11/07/2023 2:20 PM EDT) Pathologist [facility] Lactate 4.3(HH) 0.4 - 2.0 mmol/L 11/07/2023 3:22 PM EDT LABORATORY [facility] Blood Venous blood specimen / Unknown Venipuncture / Unknown 11/07/2023 2:20 PM EDT 11/07/2023 2:23 PM EDT Laney Brito PA-C LAB BLOOD ORDER [facility] LABORATORY [address] [id number] * EXTRA LIGHT BLUE TOP (11/07/2023 2:20 PM EDT) Blood Venous blood specimen / Unknown Venipuncture / Unknown 11/07/2023 2:20 PM EDT 11/07/2023 2:23 PM EDT Laney Brito PA-C LAB BLOOD ORDER [facility] LABORATORY [address] [address] * LIPASE (11/07/2023 2:20 PM EDT) Pathologist [facility] Lipase 24 13 - 60 U/L 11/07/2023 2:53 PM EDT LABORATORY [facility] Blood Venous blood specimen / Unknown Venipuncture / Unknown 11/07/2023 2:20 PM EDT 11/07/2023 2:23 PM EDT Laney Brito PA-C LAB BLOOD ORDER [facility] LABORATORY [address] [address] * (ABNORMAL) COMPREHENSIVE METABOLIC PANEL (11/07/2023 2:20 PM EDT) Pathologist [facility] BUN 17 6 - 20 mg/dL 11/07/2023 2:53 PM EDT LABORATORY [facility] Creatinine 1.0 0.6 - 1.2 mg/dL 11/07/2023 2:53 PM EDT LABORATORY [facility] Estimated Glomerular Filtration Rate 78 >=60 mL/min 11/07/2023 2:53 PM EDT LABORATORY [facility] Comment:eGFR is calculated b ased on the CKD-EPI 2020 equation Sodium 139 135 - 146 mmol/L 11/07/2023 2:53 PM EDT LABORATORY [facility] Potassium 4.7 3.5 - 5.1 mmol/L 11/07/2023 2:53 PM EDT LABORATORY [facility] Chloride 101 98 - 107 mmol/L 11/07/2023 2:53 PM EDT LABORATORY [facility] CO2 19(L) 22 - 32 mmol/L 11/07/2023 2:53 PM EDT LABORATORY [facility] Anion Gap 19(H) 7 - 15 mmol/L 11/07/2023 2:53 PM EDT LABORATORY [facility] Glucose 198(H) 70 - 120 mg/dL 11/07/2023 2:53 PM EDT LABORATORY [facility] Albumin 3.9 3.8 - 5.0 g/dL 11/07/2023 2:53 PM EDT LABORATORY [facility] AST 17 10 - 50 U/L 11/07/2023 2:53 PM EDT LABORATORY [facility] Alkaline Phosphatase 57 35 - 130 U/L 11/07/2023 2:53 PM EDT LABORATORY [facility] Bilirubin, Total 0.4 <=1.2 mg/dL 11/07/2023 2:53 PM EDT LABORATORY [facility] Calcium 8.9 8.4 - 10.2 mg/dL 11/07/2023 2:53 PM EDT LABORATORY [facility] Protein 6.6 6.0 - 8.3 g/dL 11/07/2023 2:53 PM EDT LABORATORY [facility] ALT 13 10 - 50 U/L 11/07/2023 2:53 PM EDT LABORATORY [facility] Blood Venous blood specimen / Unknown Venipuncture / Unknown 11/07/2023 2:20 PM EDT 11/07/2023 2:23 PM EDT Laney Brito PA-C LAB BLOOD ORDER [facility] LAB[facility]AT[facility] [address] [place], [place] [id number] documented in this encounter Visit Diagnoses Diagnosis Urinary tract infection without hematuria, site unspecified- Primary Abdominal pain Abdominal pain, unspecified site Urinary retention Retention of urine, unspecified Chest pain Chest pain, unspecified Type 2 diabetes mellitus with hemoglobin A1c goal of less than 7.5% (HCC) Hyperparathyroidism (HCC) Hyperparathyroidism, unspecified Orthostatic hypotension History of DVT (deep vein thrombosis) Personal history of venous thrombosis and embolism History of Hodgkin's disease Personal history of Hodgkin's disease Essential hypertension with goal blood pressure less than 130/80 Depression with anxiety Dysthymic disorder Ambulatory dysfunction BPH with obstruction/lower urinary tract symptoms Hypertrophy of prostate with urinary obstruction and other lower urinary tract symptoms (LUTS) Complicated UTI (urinary tract infection) Urinary tract infection, site not specified Retention of urine Retention of urine, unspecified documented in this encounter Administered Medications Inactive Administered Medications - up to 3 most recent administrations Medication Order MAR Action Action Date Dose Rate Site Acetaminophen (Tylenol) tab 650 mg 650 mg, Oral, Q6H PRN Pain, Mild, Fever >38C(100.5F), Starting on Sun11/07/23 at 2209, Until Sun11/08/23 at 1904, Maximum of 4 grams (4000 mg) per day. atorvaSTATin (Lipitor) tab 40 mg 40 mg, Oral, Daily(AM), First dose on Sun11/08/23 at 0900, Until Discontinued Given 11/08/2023 9:42 AM EDT 40 mg Bisacodyl (Dulcolax) supp 10 mg 10 mg, Rectal, DAILY PRN Constipation, Starting on Sun11/10/23 at 2209, Until Sun11/08/23 at 1904, Administer if no bowel movement within past 72 hours and patient unable to take oral medications. Bisacodyl (Dulcolax) tab 5 mg 5 mg, Oral, DAILY PRN Constipation, Starting on Sun11/10/23 at 2209, Until Sun11/08/23 at 1904, Administer in addition to polyethylene glycol and senna-docusate if no bowel movement in past 72 hours. cefTRIAXone in dextrose (Rocephin) IVPB 1 g IV Piggyback, 1 g, ONCE, 1 dose, On Sun11/07/23 at 1630, Administer over 30 Minutes New Bag 11/07/2023 4:14 PM EDT 1 g 100 mL/hr cefTRIAXone in dextrose (Rocephin) IVPB 1 g IV Piggyback, 1 g, Q24H, 5 doses, First dose (after last modification) on Sun11/08/23 at 1130, Last dose on Sun11/12/23 at 1130, Administer over 30 Minutes New Bag 11/08/2023 12:15 PM EDT 1 g 100 mL/hr cinacalcet (Sensipar) tab 30 mg 30 mg, Oral, Daily(AM), First dose on Sun11/08/23 at 0900, Until Discontinued Given 11/08/2023 9:41 AM EDT 30 mg dextrose 50% inj 25 mL 25 mL, IV Push, PRN Hypoglycemia, Other, For blood glucose 54 - 69 mg/dL or 70 - 100 mg/dL with symptoms AND patient is unresponsive, NPO, OR unable to swallow, Starting on Sun11/07/23 at 2210, Until Sun11/08/23 at 1904, Administer IV. Recheck blood glucose after 15 minutes. Notify provider. dextrose 50% inj 50 mL 50 mL, IV Push, PRN Hypoglycemia, Other, For blood glucose below 54 mg/dL AND patient unresponsive, NPO, OR unable to swallow, Starting on Sun11/07/23 at 2210, Until Sun11/08/23 at 1904, Administer IV. Recheck blood glucose in 15 minutes. Notify provider. DULoxetine (Cymbalta) DR cap 60 mg 60 mg, Oral, Daily(AM), First dose on Sun11/08/23 at 0900, Until Discontinued Given 11/08/2023 9:42 AM EDT 60 mg Ferrous Sulfate (Feosol) tab 325 mg 325 mg, Oral, DAILY(1900), First dose on Sun11/08/23 at 0000, Until Discontinued Given 11/07/2023 11:54 PM EDT 325 mg Finasteride (Proscar) tab 5 mg 5 mg, Oral, Daily(AM), First dose on Sun11/08/23 at 0900, Until Discontinued Given 11/08/2023 9:41 AM EDT 5 mg glucagon (Glucagen) inj 1 mg 1 mg, Intramuscular, PRN Hypoglycemia, Other, If patient is unresponsive, or NPO and has no IV access, Starting on Sun11/07/23 at 2210, Until Sun11/08/23 at 1904, NPO and no IV access with either [...] patient alert WITH difficulty chewing/swallowing, Starting on Sun11/07/23 at 2210, Until Sun11/08/23 at 1904, Administer gel. Recheck blood glucose after 15 minutes. Notify provider. 37.5 gram tube = 15 grams glucose = 1 each Glucose (Glutose 15) 40 % gel 30 g of glucose 30 g of glucose, Oral, PRN Hypoglycemia (low sugar), Other, For blood glucose below 54 mg/dL AND patient alert WITH difficulty chewing/swallowing, Starting on Sun11/07/23 at 2210, Until Sun11/08/23 at 1904, Administer gel. Recheck blood glucose after 15 minutes. Notify provider. 37.5 gram tube = 15 grams glucose = 1 each glucose chew tab 16 g 16 g, Oral, PRN Hypoglycemia, Other, For blood glucose 54 - 69 mg/dL or 70 - 100 mg/dL with symptoms and patient alert without difficulty chewing/swallowing., Starting on Sun11/07/23 at 2210, Until Sun11/08/23 at 1904 insulin aspart (NovoLOG) inj Subcutaneous, W/MEALS AND HS, First dose on Sun11/07/23 at 2245, Until Discontinued, MEDIUM DOSE (Usual starting dose): [...] insulin dose and call covering provider. Given 11/08/2023 12:00 PM EDT 2 Units Deltoid Right Upper Iopamidol (Isovue 370) inj 80 mL 80 mL, Intravenous, ONCE, On Sun11/07/23 at 2000, For 1 dose, Radiology Medication Routing (Non-IR) Given 11/07/2023 8:00 PM EDT 80 mL Forearm Right melatonin tab 3 mg 3 mg, Oral, HS PRN Insomnia, Starting on Sun11/07/23 at 2209, Until Sun11/08/23 at 1904 metoprolol succinate XL (toPROL XL) tab 12.5 mg 12.5 mg, Oral, QHS, First dose on Sun11/08/23 at 0000, Until Discontinued, Hold for HR less than 60 or SBP below 100 and notify service if dose is held This med should NOT be Crushed or Chewed. Given 11/07/2023 11:54 PM EDT 12.5 mg midodrine (Proamatine) tab 5 mg 5 mg, Oral, TID ;;18, First dose on Sun11/08/23 at 0600, Until Discontinued Given 11/08/2023 12:07 PM EDT 5 mg Given 11/08/2023 5:04 AM EDT 5 mg NSS 0.9% 1,000 mL bolus infusion Peripheral IV, at 1,000 mL/hr Administer over 60 Minutes, Administer entire volume within 60 minutes or less., ONCE, 1 dose, On Sun11/07/23 at 1630 New Bag 11/07/2023 4:09 PM EDT 1,000 mL 10 00 mL/hr NSS 0.9% 1,000 mL bolus infusion Peripheral IV, at 1,000 mL/hr Administer over 60 Minutes, Administer entire volume within 60 minutes or less., ONCE, 1 dose, On Sun11/07/23 at 1745 New Bag 11/07/2023 5:23 PM EDT 1,000 mL 10 00 mL/hr omeprazole (PriLOSEC) cap 20 mg 20 mg, Oral, Daily(AM), First dose on Sun11/08/23 at 0900, Until Discontinued, This med should NOT be Crushed or Chewed Given 11/08/2023 9:41 AM EDT 20 mg ondansetron (Zofran) inj 4 mg 4 mg, IV Push, Q6H PRN Nausea, Starting on Sun11/07/23 at 2209, Until Sun11/08/23 at 1904 Polyethylene Glycol 3350 (Miralax) oral powder 17 g 17 g (1 Packet), Oral, DAILY PRN Constipation, Starting on Sun11/07/23 at 2209, Until Sun11/08/23 at 1904, Administer if no bowel movement within past 24 hours. senna-docusate (Senokot-S) 1 Tablet 1 Tablet, Oral, BID PRN Constipation, Starting on Sun11/09/23 at 2209, Until Sun11/08/23 at 1904, Administer in addition to polyethylene glycol if no bowel movement within past 48 hours. sodium chloride 0.9 % flush/inj 3 mL 3 mL, IV Push, PRN Other, Line Patency, Starting on Sun11/07/23 at 2209, Until Sun11/08/23 at 1904, Do not flush if lock, PICC, or central line not in place, IV infusing or unable to flush tamsulosin (Flomax) cap 0.8 mg 0.8 mg, Oral, HS, First dose (after last modification) on Sun11/07/23 at 2245, Until Discontinued, Administer 30 min after meal. This med should NOT be Crushed or Chewed or opened! ORAL administration only!! Given 11/07/2023 11:54 PM EDT 0.8 mg Warfarin Sodium (Coumadin) tab 5 mg 5 mg, Oral, QPM-1999, First dose on Sun11/08/23 at 1999, Last dose on Sun11/08/23 at 1999, For 1 day, WASTE INFO: Return packaging and waste medication in zip lock bag to pharmacy - [facility] container. documented in this encounter Active and Recently Administered Medications Times are shown in EDT. Scheduled Medication Order 11/06/2023 11/07/2023 11/08/2023 atorvaSTATin (Lipitor) tab 40 mg 40 mg, Oral, Daily(AM), First dose on Sun11/08/23 at 0900, Until Discontinued 0942 (Given - Provid er: Nasim Llanes RN) cefTRIAXone in dextrose (Rocephin) IVPB 1 g (COMPLETED) IV Piggyback, 1 g, ONCE, 1 dose, On Sun11/07/23 at 1630, Administer over 30 Minutes 1614 (New Bag - Provider: Rica Zuñiga RN)1930 (Stopped - Provider: Tanvi Casiano LPN) cefTRIAXone in dextrose (Rocephin) IVPB 1 g IV Piggyback, 1 g, Q24H, 5 doses, First dose (after last modification) on Sun11/08/23 at 1130, Last dose on Sun11/12/23 at 1130, Administer over 30 Minutes 1215 (New Bag - Provider: Nasim Llanes RN)1904 (Due: Stopped) cinacalcet (Sensipar) tab 30 mg 30 mg, Oral, Daily(AM), First dose on Sun11/08/23 at 0900, Until Discontinued 09 (Given - Provid er: Nasim Llanes RN) DULoxetine (Cymbalta) DR cap 60 mg 60 mg, Oral, Daily(AM), First dose on Sun11/08/23 at 0900, Until Discontinued 941 (Given - Provid er: Nasim Llanes RN) Ferrous Sulfate (Feosol) tab 325 mg 325 mg, Oral, DAILY(0), First dose on Sun11/08/23 at 0000, Until Discontinued 2353 (Given - Provider: Angeli Rivera RN) Finasteride (Proscar) tab 5 mg 5 mg, Oral, Daily(AM), First dose on Sun11/08/23 at 0900, Until Discontinued 940 (Given - Provid er: Nasim Llanes RN) insulin aspart (NovoLOG) inj Subcutaneous, W/MEALS AND HS, First dose on Sun11/07/23 at 2245, Until Discontinued, MEDIUM DOSE (Usual starting dose): [...] suggested insulin dose and call covering provider. 2245 (No Insulin - Provider: Angeli Rivera RN - Reason: Parameter(s) Not Met - Comment: BSBS 92) 0800 (Not Given - Provider: Nasim Llanes RN - Reason: Parameter(s) Not Met)1200 (Given - Provider: Nasim Llanes RN) Iopamidol (Isovue 370) inj 80 mL (COMPLETED) 80 mL, Intravenous, ONCE, On Sun11/07/23 at 2000, For 1 dose, Radiology Medication Routing (Non-IR) 1999 (Given - Provider: Thelma Bennett, RT) metoprolol succinate XL (toPROL XL) tab 12.5 mg 12.5 mg, Oral, QHS, First dose on Sun11/08/23 at 0000, Until Discontinued, Hold for HR less than 60 or SBP below 100 and notify service if dose is held This med should NOT be Crushed or Chewed. 2354 (Given - Provider: Angeli Rivera RN) midodrine (Proamatine) tab 5 mg 5 mg, Oral, TID 06;12;18, First dose on Sun11/08/23 at 0600, Until Discontinued 0504 (Given - Provid er: Angeli Rivera RN)1207 (Given - Provider: Nasim Llanes RN - Comment: Pt dropped med, second med obtained from omni cell) NSS 0.9% 1,000 mL bolus infusion (COMPLETED) Peripheral IV, at 1,000 mL/hr Administer over 60 Minutes, Administer entire volume within 60 minutes or less., ONCE, 1 dose, On Sun11/07/23 at 1630 1609 (New Bag - Provider: Rica Zuñiga RN)1930 (Stopped - Provider: Tanvi Casiano LPN) NSS 0.9% 1,000 mL bolus infusion (COMPLETED) Peripheral IV, at 1,000 mL/hr Administer over 60 Minutes, Administer entire volume within 60 minutes or less., ONCE, 1 dose, On Sun11/07/23 at 1745 1723 (New Bag - Provider: Rica Zuñiga RN)193 (Stopped - Provider: Tanvi Casiano LPN) omeprazole (PriLOSEC) cap 20 mg 20 mg, Oral, Daily(AM), First dose on Sun11/08/23 at 0900, Until Discontinued, This med should NOT be Crushed or Chewed 0941 (Given - Provid er: Nasim Llanes RN) tamsulosin (Flomax) cap 0.8 mg 0.8 mg, Oral, HS, First dose (after last modification) on Sun11/07/23 at 2245, Until Discontinued, Administer 30 min after meal. This med should NOT be Crushed or Chewed or opened! ORAL administration only!! 2354 (Given - Provider: Angeli Rivera RN) warfarin check daily dose (PHARMACIST MANAGED) [id number], First dose on Sun11/08/23 at 1500, Until Discontinued, Routine, Contact the pharmacy if there is not a warfarin dose entered by 1500 and document with whom it was discussed. 1500 (Order Check Addressed - Provider: Nasim Llanes RN) Warfarin Sodium (Coumadin) tab 5 mg 5 mg, Oral, QPM-1999, First dose on Sun11/08/23 at 2000, Last dose on Sun11/08/23 at 1999, For 1 day, WASTE INFO: Return packaging and waste medication in zip lock bag to pharmacy - [facility] container. PRN Medication Order 11/06/2023 11/07/2023 11/08/2023 Acetaminophen (Tylenol) tab 650 mg 650 mg, Oral, Q6H PRN Pain, Mild, Fever >38C(100.5F), Starting on Sun11/07/23 at 2209, Until Sun11/08/23 at 1904, Maximum of 4 grams (4000 mg) per day. Bisacodyl (Dulcolax) supp 10 mg(Linked Group 1) 10 mg, Rectal, DAILY PRN Constipation, Starting on 11/10/23 at 2209, Until [place] 11/08/23 at 1904, Administer if no bowel movement within past 72 hours and patient unable to take oral medications. Bisacodyl (Dulcolax) tab 5 mg(Linked Group 1) 5 mg, Oral, DAILY PRN Constipation, Starting on 11/10/23 at 2209, Until Josefa 11/08/23 at 1904, Administer in addition to polyethylene glycol and senna-docusate if no bowel movement in past 72 hours. dextrose 50% inj 25 mL 25 mL, IV Push, PRN Hypoglycemia, Other, For blood glucose 54 - 69 mg/dL or 70 - 100 mg/dL with symptoms AND patient is unresponsive, NPO, OR unable to swallow, Starting on Sun11/07/23 at 2210, Until Sun11/08/23 at 1904, Administer IV. Recheck blood glucose after 15 minutes. Notify provider. dextrose 50% inj 50 mL 50 mL, IV Push, PRN Hypoglycemia, Other, For blood glucose below 54 mg/dL AND patient unresponsive, NPO, OR unable to swallow, Starting on Sun11/07/23 at 2210, Until Sun11/08/23 at 1904, Administer IV. Recheck blood glucose in 15 minutes. Notify provider. glucagon (Glucagen) inj 1 mg 1 mg, Intramuscular, PRN Hypoglycemia, Other, If patient is unresponsive, or NPO and has no IV access, Starting on Sun11/07/23 at 2210, Until Sun11/08/23 at 1904, NPO and no IV access with either [...] patient alert WITH difficulty chewing/swallowing, Starting on Sun11/07/23 at 2210, Until Sun11/08/23 at 1904, Administer gel. Recheck blood glucose after 15 minutes. Notify provider. 37.5 gram tube = 15 grams glucose = 1 each Glucose (Glutose 15) 40 % gel 30 g of glucose 30 g of glucose, Oral, PRN Hypoglycemia (low sugar), Other, For blood glucose below 54 mg/dL AND patient alert WITH difficulty chewing/swallowing, Starting on Sun11/07/23 at 2210, Until Sun11/08/23 at 1904, Administer gel. Recheck blood glucose after 15 minutes. Notify provider. 37.5 gram tube = 15 grams glucose = 1 each glucose chew tab 16 g 16 g, Oral, PRN Hypoglycemia, Other, For blood glucose 54 - 69 mg/dL or 70 - 100 mg/dL with symptoms and patient alert without difficulty chewing/swallowing., Starting on Sun11/07/23 at 2210, Until Sun11/08/23 at 1904 melatonin tab 3 mg 3 mg, Oral, HS PRN Insomnia, Starting on Sun11/07/23 at 220, Until Sun11/08/23 at 1904 Nitroglycerin (Nitrostat) sl tab 0.4 mg 0.4 mg, Sublingual, Q5 MIN PRN Pain, Chest, Starting on Sun11/07/23 at 2207, Until Sun11/08/23 at 1904, This med should NOT be Crushed or Chewed ondansetron (Zofran) inj 4 mg 4 mg, IV Push, Q6H PRN Nausea, Starting on Sun11/07/23 at 220, Until Sun11/08/23 at 1904 Polyethylene Glycol 3350 (Miralax) oral powder 17 g(Linked Group 1) 17 g (1 Packet), Oral, DAILY PRN Constipation, Starting on Sun11/07/23 at 220, Until Sun11/08/23 at 190, Administer if no bowel movement within past 24 hours. senna-docusate (Senokot-S) 1 Tablet(Linked Group 1) 1 Tablet, Oral, BID PRN Constipation, Starting on Sun11/09/23 at 2209, Until Sun11/08/23 at 190, Administer in addition to polyethylene glycol if no bowel movement within past 48 hours. sodium chloride 0.9 % flush/inj 3 mL 3 mL, IV Push, PRN Other, Line Patency, Starting on Sun11/07/23 at 220, Until Sun11/08/23 at 190, Do not flush if lock, PICC, or central line not in place, IV infusing or unable to flush Linked Groups Order Group 1: Polyethylene Glycol 3350 (Miralax) oral powder 17 gJump to med 17 g (1 Packet), Oral, DAILY PRN Constipation, Starting on Sun11/07/23 at 220, Until Sun11/08/23 at 190, Administer if no bowel movement within past 24 hours. And senna-docusate (Senokot-S) 1 TabletJump to med 1 Tablet, Oral, BID PRN Constipation, Starting on Sun11/09/23 at 2209, Until Sun11/08/23 at 1904, Administer in addition to polyethylene glycol if no bowel movement within past 48 hours. And Bisacodyl (Dulcolax) tab 5 mgJump to med 5 mg, Oral, DAILY PRN Constipation, Starting on 11/10/23 at 2209, Until Josefa 11/08/23 at 1904, Administer in addition to polyethylene glycol and senna- docusate if no bowel movement in past 72 hours. And Bisacodyl (Dulcolax) supp 10 mgJump to med 10 mg, Rectal, DAILY PRN Constipation, Starting on 11/10/23 at 2209, Until Josefa 11/08/23 at 1904, Administer if no bowel movement within past 72 hours and patient unable to take oral medications. documented in this encounter Advance Directives * [...] Power of Attor jus? No Care Teams Information Systems Security Officer Relationship Specialty Start Date End Date Kaiser Amanda MD [address] [id number] PCP - General Family Medicine 04/11/21 documented as of this encounter
--- OUTSIDE RECORDS SUMMARY | 2024-01-29 20:39 | External Medical Summary | Summary of Care ---
Author Name Unknown Organization [facility] Address [address] [place] [address] Phone [phone] Care Team Providers Care Boring Machine Set Up Operator Name Role Phone Kaiser Amanda MD Primary Care Provider [phone] Encounter Details Date Type Department Care Team (Late st Contact Info) Description 11/19/2023 2:30 PM EDT Scheduled Telephone Care Coordination and Integration [address], [place] [phone] Laney Alonso, [facility] Accordion Repairer [address], [place] [phone] Allergies Active Allergy Reactions Criticality Noted Date Comments Cat Dander Itching 07/14/2016 documented as of this encounter (statuses as of 11/19/2023) Medications Medication Sig Dispensed Refills Start Date [...] than 7.5% ([facility]),Type 2 diabetes mellitus with polyneuropathy (HCC) Check [...] as of this encounter (statuses as of 11/19/2023) Active Problems Problem Noted Date Diagnosed Date [...] as of this encounter (statuses as of 11/19/2023) Resolved Problems Problem Noted Date Diagnosed Date [...] as of this encounter (statuses as of 11/19/2023) Immunizations Name Administration Dates Next Due COVID-19 [...] do you have serious difficulty h earing? No-[place] 11/07/2023 Are you blind or do you [...] Description 11/22/2023 9:00 AM EDT Nurse Only Rolo [place] [address] [facility] [address] [place] [address] [place], Nurse Urology [address] [place]ma[place] [address] [place] [address] 11/26/2023 8:15 AM EDT Appointment Radiology, [facility] 400 [facility] [place] [address] 11/28/2023 3:00 PM EDT Anticoagulation Pharmacy, [address] [place] [address] Pharmacist1, [facility] [place] 21 [facility] [place] [address] 12/11/2023 2:00 PM EDT Office Visit Cardiology, [place] [facility] [address] Stefani Mooney CRNP 400 [facility] [place] [address] 01/16/2024 11:30 AM EDT Office Visit Rolo Sun [address] [place] [address] [place] [address] Keagan Thayer, Bert Giron MD [address] [place] [place] [address] 01/21/2024 2:00 PM EDT Office Visit Endocrinology Natalie [address] [place], [place] [address] Sakina Jones MD 100 [place] [address] 01/25/2024 3:30 PM EDT Office Visit [facility] Surgery [facility] [address] [place] [address] Laney Hogue MD 200 [place] [address] 02/25/2024 11:20 AM EDT Office Visit [facility] 21 [facility] [place] [id number] Kaiser Amanda MD 21 [facility] [place] [address] 10/21/2024 9:15 AM EDT Appointment Radiology, [facility] [address] [facility] [place] [address] 10/29/2024 9:45 AM EDT Office Visit Urology Aleida Rinaldi [place] [address] [facility] [address] [place] [address] Bert Boogie Jr., MD [address] [place] [address] Scheduled Procedures Name Priority Associated Diagnoses Date/Ti [...] D LEVEL ONCE IN A LIFETIME-USE SMARTSET# 06209 Completed 07/26/2023, 02/26/2023, 01/23/2023, Additional history exists [...] this encounter Medical Devices Implanted Type Area Retail Seasonal Specialist Device Identifier Shelf Expiration Date Model / Serial / Lot Cement Bone Simplex Hv & G - [id number] Implanted:Qty: 2 on 09/02/2020 by Gianni Hubbard MD at OR [facility] Right: Hip LUDY : ORTHOPAEDICS 08/11/2021 6195-1-010 / / [id number] Spacer Ring Aclde Distal Lg 14 - [id number] Implanted:Qty: 1 on 09/02/2020 by Gianni Hubbard MD at OR [facility] Right: Hip LUDY : ORTHOPAEDICS 11/25/2024 9066-8229 / / Accolade C Cs 127 6 37/158 - [id number] Implanted:Qty: 1 on 09/02/2020 by Gianni Hubbard MD at OR [facility] Right: Hip LUDY : ORTHOPAEDICS 05/29/2023 6057-0637D / / [id number] Hip Cocr Lfit Head V40 28/+4 - [id number] Implanted:Qty: 1 on 09/02/2020 by Gianni Hubbard MD at OR [facility] Right: Hip LUDY : ORTHOPAEDICS 11/15/2024 6260-9-228 / / [id number] Hip Head Bipol Uhr Uni 28x52 - [id number] Implanted:Qty: 1 on 09/02/2020 by Gianni Hubbard MD at OR [facility] Right: Hip LUDY : ORTHOPAEDICS 11/25/2024 UH1-52-28 / / [id number] Lens Intraoc 17.5 - [id number] - [id number] Implanted:Qty: 1 on 03/23/2022 by Rad Morgan MD at OR [facility] Left: Eye BAUSCH & LOMB 10/11/2026 [id number] / [id number] / [id number] Lens Intraoc 18.0 - [id number] - [id number] Implanted:Qty: 1 on 03/30/2022 by Rad Morgan MD at OR [facility] Right: Eye BAUSCH & LOMB 01/11/2027 [id number] / [id number] / [id number] documented as of this encounter Advance Directives [...] Power of Attor jus? No Care Teams Boring Machine Set Up Operator Relationship Specialty Start Date End Date Kaiser Amanda MD [address] [place] [address] PCP - General Family Medicine 04/11/21 documented as of this encounter
--- OUTSIDE RECORDS SUMMARY | 2024-01-29 20:39 | External Medical Summary | Summary of Care ---
Author Name Unknown Organization [facility] Address [address] [facility] [place] [address] Phone [phone] Care Team Providers Care Station Mechanic Name Role Phone Kaiser Amanda MD Primary Care Provider [phone] [phone] Encounter Details Date Type Department Care Team (Late st Contact Info) Description 11/06/2023 Result Scan Unspecified Department <No scans attached> Allergies Active Allergy Reactions Criticality Noted Date Comments Cat Dander Itching 07/14/2016 documented as of this encounter (statuses as of 11/13/2023) Medications Medication Sig Dispensed Refills Start Date End Date Status OneTouch Ultra 2 w/Device KitIndications:Type 2 diabetes mellitus with hemoglobin A1c goal of less than 7.5% ([facility]) Testing blood sugars twice daily Dx: E11.9 1 Kit 11 06/06/2021 Active OneTouch Delica Lancets 30GIndications:Type 2 diabetes mellitus with hemoglobin A1c goal of less than 7.5% ([facility]),Type 2 diabetes mellitus with polyneuropathy ([facility]) Check BS once daily [...] hemoglobin A1c goal of less than 7.5% ([facility]) TAKE 1 TABLET BY [...] for flares 60 g 2 01/19/2023 Active OneToSurveying And Mapping (SAM) VerCyntellect In Vitro Strip (Glucose Blood)Indications: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 ([facility]),Type 2 diabetes mellitus with hemoglobin A1c goal of less than 7.5% ([facility]) USE STRIP TO CHECK GLUCOSE [...] MG Sublingual Tablet Sublingual (Nitrostat)Indicatio ns:Stable angina ([facility]) Place 1 Tablet under [...] at bedtime. 15 Tablet 5 10/29/2023 Active documented as of this encounter (statuses as of 11/13/2023) Active Problems Problem Noted Date Diagnosed Date [...] as of this encounter (statuses as of 11/13/2023) Resolved Problems Problem Noted Date Diagnosed Date [...] as of this encounter (statuses as of 11/13/2023) Immunizations Name Administration Dates Next Due COVID-19 mRNA, LNP-s, No Pre serve, 2-Dose Series (Iptune) 04/23/2021,08/09/2020,07/12/2020 Covid-19, Mrna, Lnp-s, Pf, B ivalent, [...] No 10/07/2023 documented as of this encounter Plan of Treatment Upcoming Encounters Date Type Department Care Team (Late st Contact Info) Description 11/14/2023 1:30 PM EDT Office Visit Cardiology, [facility] [place] [address] [facility] 400 [place] [address] 11/22/2023 9:00 AM EDT Nurse Only Urology [place] [address] [facility] [address] [place] [address] [place], Nurse Urology [address] [facility] [address] [place] [address] 11/28/2023 3:00 PM EDT Anticoagulation Pharmacy, [place] 21 [place] [address] Pharmacist1, [facility] [place] 21 [facility] [place] [facility] [place] [address] 12/11/2023 2:00 PM EDT Office Visit Cardiology, [place] [address] [place] [address] Stefani Mooney CRNP 400 [place] [address] 01/16/2024 11:30 AM EDT Office Visit Urology Aleida Rinaldi [place] [address] [facility] [address] [place] [address] Bert Boogie Jr., MD [address] [facility] [address] 01/21/2024 2:00 PM EDT Office Visit Endocrinology [address] [place] [address] Sakina Jones MD 100 [address] [facility] [place] [address] 01/25/2024 3:30 PM EDT Office Visit [facility] Surgery [facility] [address] [facility] [place], [place] [phone] Laney Hogue MD 200 [place] [address] 02/25/2024 9:20 AM EDT Office Visit Family Practice, [place] [address] [place] [phone] Kaiser Amanda MD 21 [address] [address] 10/21/2024 9:15 AM EDT Appointment Radiology, [facility] 400 [facility] [place] [address] 10/29/2024 9:45 AM EDT Office Visit Urology [place] [address] [facility] [address] [address] Bert Boogie Jr., MD 27 [facility] [place] [address] Scheduled Procedures Name Priority Associated Diagnoses Date/Ti [...] D LEVEL ONCE IN A LIFETIME-USE SMARTSET# 10056 Completed 07/26/2023, 02/26/2023, 01/23/2023, Additional history exists [...] this encounter Medical Devices Implanted Type Area Home Fire Alarm Installer Device Identifier Shelf Expiration Date Model / Serial / Lot Cement Bone Simplex Hv & G - [id number] Implanted:Qty: 2 on 09/02/2020 by Gianni Hubbard MD at OR [facility] Right: Hip LUDY : ORTHOPAEDICS 08/11/2021 6195-1-010 / / [id number] Spacer Ring Aclde Distal Lg 14 - [id number] Implanted:Qty: 1 on 09/02/2020 by Gianni Hubbard MD at OR [facility] Right: Hip LUDY : ORTHOPAEDICS 11/25/2024 0180-1954 / / Accolade C Cs 127 6 37/158 - [id number] Implanted:Qty: 1 on 09/02/2020 by Gianni Hubbard MD at OR [facility] Right: Hip LUDY : ORTHOPAEDICS 05/29/2023 6057-0637D / / [id number] Hip Cocr Lfit Head V40 28/+4 - [id number] Implanted:Qty: 1 on 09/02/2020 by Gianni Hubbard MD at OR [facility] Right: Hip LUDY : ORTHOPAEDICS 11/15/2024 6260-9-228 / / [id number] Hip Head Bipol Uhr Uni 28x52 - [id number] Implanted:Qty: 1 on 09/02/2020 by Gianni Hubbard MD at OR [facility] Right: Hip LUDY : ORTHOPAEDICS 11/25/2024 UH1-52-28 / / [id number] Lens Intraoc 17.5 - [id number] - [id number] Implanted:Qty: 1 on 03/23/2022 by Rad Morgan MD at OR [facility] Left: Eye BAUSCH & LOMB 10/11/2026 [id number] / [id number] / [id number] Lens Intraoc 18.0 - [id number] - [id number] Implanted:Qty: 1 on 03/30/2022 by Rad Morgan MD at OR [facility] Right: Eye BAUSCH & LOMB 01/11/2027 [id number] / [id number] / [id number] documented as of this encounter Procedures Procedure Name Priority Date/Time Associated Diagnosis Comments PROCEDURE SCANNED RESULT 11/06/2023 documented in this encounter Results * PROCEDURE SCANNED RESULT (11/06/2023) 11/06/2023 No Physician Data Unknown SURGERY documented in this encounter Advance Directives * [...] Power of Attor jus? No Care Teams Station Mechanic Relationship Specialty Start Date End Date Kaiser Amanda MD [address] [place] [address] PCP - General Family Medicine 04/11/21 documented as of this encounter
--- OUTSIDE RECORDS SUMMARY | 2024-01-29 20:39 | External Medical Summary | Summary of Care ---
Author Name Unknown Organization [facility] Address [address] [facility] [address] Phone [phone] Care Team Providers Care Production Cell Leader Name Role Phone Kaiser Amanda MD Primary Care Provider [phone] [phone] Reason for Visit * Reason Comments Hospital Follow-Up Encounter Details Date Type Department Care Team (Late st Contact Info) Description 11/12/2023 12:00 PM EDT [facility] [place] [address] Kaiser Amanda MD 21 [facility] [place] [address] Hospital discharge follow-up*; BPH with obstruction/lower urinary tract symptoms; Orthostatic hypotension Allergies Active Allergy Reactions Criticality Noted Date Comments Cat Dander Itching 07/14/2016 documented as of this encounter (statuses as of 11/12/2023) Medications Medication Sig Dispensed Refills Start Date End Date Status OneTouch Ultra 2 w/Device KitIndications:Typ e 2 diabetes mellitus with hemoglobin A1c goal of less than 7.5% ([facility]) Testing blood sugars twice daily Dx: [...] goal of less than 7.5% ([facility]) TAKE 1 TABLET BY MOUTH DAILY. [...] by mouth at bedtime. 60 Capsule 4 024 Active Cefdinir 300 MG Oral Capsule (Omnicef) Take 1 Capsule by mouth in the morning and 1 Capsule before bedtime. Do all this for 10 days. 20 Capsule 4 024 Active Midodrine HCl 5 MG Oral Tablet (Proamatine)Indica tions:Orthostatic hypotension Take 1 Tablet by mouth in the morning and 1 Tablet at noon and 1 Tablet in the evening. 90 Tablet 4 Active Finasteride 5 MG Oral Tablet (Proscar)Indicatio ns:BPH with obstruction/lower urinary tract symptoms Take 1 Tablet by mouth in the morning. 90 Tablet 3 4 Active Midodrine HCl 5 MG Oral Tablet (Proamatine) Take 1 Tablet by mouth in the morning and 1 Tablet at noon and 1 Tablet in the evening. 90 Tablet 4 024 Discontinued(Re fill) Finasteride 5 MG Oral Tablet (Proscar) Take 1 Tablet by mouth in the morning. 30 Tablet 4 024 Discontinued(Re fill) Finasteride 5 MG Oral Tablet (Proscar)Indicatio ns:BPH with obstruction/lower urinary tract symptoms Take 1 Tablet by mouth in the morning. 30 Tablet 4 024 Discontinued documented as of this encounter [...] mRNA, LNP-s, No Pre serve, 2-Dose Series (CloudSync) 04/23/2021,08/09/2020,07/12/2020 Covid-19, Mrna, Lnp-s, Pf, B ivalent, [...] Sign Reading Time Taken Comments Blood Pressure 110/62 11/12/2023 12:14 PM EDT Pulse 100 11/12/2023 12:14 PM EDT Temperature 36.3 C (97.3 F) 11/12/2023 1 2:14 PM EDT Respiratory Rate 16 11/12/2023 12:1 4 PM EDT Oxygen Saturation 97% 11/12/2023 12: 14 PM EDT Inhaled Oxygen Concentration - - Weight 71.1 kg (156 lb 11.2 oz) 024 12:14 PM EDT Height 175.3 cm (5' 9") 11/12/2023 12:1 4 PM EDT Body Mass Index 23.14 11/12/2023 12:14 PM EDT documented in this encounter Functional Status Functional Status Response Date of Assess ment Are you deaf or do you have serious difficulty h earing? No-[place] 11/07/2023 Are you blind or do you [...] as of this encounter Progress Notes * Kaiser Amanda MD - 11/12/2023 3:30 PM EDT I have discussed the patient's management with the medical trainee and agree with the note. Please refer to the documented findings and plan of care. I was present and confirmed the findings of the history and exam and did personally examine the patient. Wrapped juarez against leg with darwin wrap, given that sticky pad is coming off. Will work with home health nursing to empty, as is struggling with this. Explained TOV process. Kaiser Amanda MD, LUISA Family Physician [facility] Medicine Residency * Felecia Whittaker MED ASSIST - 11/12/2023 12:06 PM EDT Chief Complaint Patient presents with Hospital Follow-Up PT here for hospital follow up of a UTI. PT discharged on 11/08/23. PT says he's about the same since being home. documented in this encounter Plan of Treatment Upcoming Encounters Date Type Department Care Team (Late st Contact Info) Description 11/14/2023 1:30 PM EDT Office Visit CardiologyRolo [address] [place] [address] R[facility] Cardiology [address] [place] [address] 11/22/2023 9:00 AM EDT Nurse Only Urology [place] [address] [place] [address] Nurse Rolo Urology [address] [place] [address] 11/28/2023 3:00 PM EDT Anticoagulation Pharmacy, [place] [address] [place] [address] Pharmacist1, [facility] [place] [address] [place] [address] 12/11/2023 2:00 PM EDT Office Visit Cardiology, [place] 400 [place] [address] Stefani Mooney CRNP 400 [place] [address] 01/16/2024 11:30 AM EDT Office Visit Urology [place] [facility] [address] [place] [address] [place] [address] Bert Boogie Jr., MD [address] [place] [address] 01/21/2024 2:00 PM EDT Office Visit Endocrinology [address] [place] [address] Sakina Jones MD 100 [place] [address] 01/25/2024 3:30 PM EDT Office Visit [facility] Surgery [facility] 200 [place] [address] Laney Hogue MD 200 [place] [address] 02/25/2024 9:20 AM EDT Office Visit Family Practice, [place] [address] [place] [address] [phone] Kaiser Amanda MD 21 [facility] [place] [address] 10/21/2024 9:15 AM EDT Appointment Radiology, [facility] [address] [place] [address] 10/29/2024 9:45 AM EDT Office Visit Urology [place] [address] [place] [address] Bert Boogie Jr., MD [address] [place] [address] Scheduled Procedures Name Priority Associated Diagnoses Date/Ti [...] D LEVEL ONCE IN A LIFETIME-USE SMARTSET# 30629 Completed 07/26/2023, 02/26/2023, 01/23/2023, Additional history exists [...] this encounter Medical Devices Implanted Type Area Can Technician Device Identifier Shelf Expiration Date Model / Serial / Lot Cement Bone Simplex Hv & G - [id number] Implanted:Qty: 2 on 09/02/2020 by Gianni Hubbard MD at OR [facility] Right: Hip LUDY : ORTHOPAEDICS 08/11/2021 6195-1-010 / / [id number] Spacer Ring Aclde Distal Lg 14 - [id number] Implanted:Qty: 1 on 09/02/2020 by Gianni Hubbard MD at OR [facility] Right: Hip LUDY : ORTHOPAEDICS 11/25/2024 0534-9028 / / Accolade C Cs 127 6 37/158 - [id number] Implanted:Qty: 1 on 09/02/2020 by Gianni Hubbard MD at OR [facility] Right: Hip LUDY : ORTHOPAEDICS 05/29/2023 6057-0637D / / [id number] Hip Cocr Lfit Head V40 28/+4 - [id number] Implanted:Qty: 1 on 09/02/2020 by Gianni Hubbard MD at OR [facility] Right: Hip LUDY : ORTHOPAEDICS 11/15/2024 6260-9-228 / / [id number] Hip Head Bipol Uhr Uni 28x52 - [id number] Implanted:Qty: 1 on 09/02/2020 by Gianni Hubbard MD at OR [facility] Right: Hip LUDY : ORTHOPAEDICS 11/25/2024 UH1-52-28 / / [id number] Lens Intraoc 17.5 - [id number] - [id number] Implanted:Qty: 1 on 03/23/2022 by Rad Morgan MD at OR [facility] Left: Eye BAUSCH & LOMB 10/11/2026 [id number] / [id number] / [id number] Lens Intraoc 18.0 - [id number] - [id number] Implanted:Qty: 1 on 03/30/2022 by Rad Morgan MD at OR [facility] Right: Eye BAUSCH & LOMB 01/11/2027 [id number] / [id number] / [id number] documented as of this encounter Visit Diagnoses Diagnosis Hospital discharge follow-up- Primary Other follow-up examination BPH with obstruction/lower urinary tract symptoms Hypertrophy of prostate with urinary obstruction and other lower urinary tract symptoms (LUTS) Orthostatic hypotension documented in this encounter Advance Directives * [...] Power of Attor jus? No Care Teams Production Cell Leader Relationship Specialty Start Date End Date Kaiser Amanda MD 21 [facility] [place] [address] PCP - General Family Medicine 04/11/21 documented as of this encounter
--- OUTSIDE RECORDS SUMMARY | 2024-01-29 20:39 | External Medical Summary | Summary of Care ---
Author Name Unknown Organization [facility] Address [address] [place] [address] Phone [phone] Care Team Providers Care Party Host Name Role Phone Kaiser Amanda MD Primary Care Provider +1 -[phone] Encounter Details Date Type Department Care Team (Late st Contact Info) Description 11/19/2023 2:30 PM EDT Scheduled Telephone Care Coordination and Integration [address], [place] [phone] Laney Alonso, Community [facility] Loss Prevention Auditor [address], [place] [phone] Allergies Active Allergy Reactions Criticality Noted Date Comments Cat Dander Itching 07/14/2016 documented as of this encounter (statuses as of 11/20/2023) Medications Medication Sig Dispensed Refills Start Date End Date Status OneTouch Ultra 2 w/Device KitIndications:Type 2 diabetes mellitus with hemoglobin A1c goal of less than 7.5% ([facility]) Testing blood sugars twice daily Dx: E11.9 1 Kit 11 06/06/2021 Active OneTouch Delica Lancets 30GIndications:Type 2 diabetes mellitus with hemoglobin A1c goal of less than 7.5% ([facility]),Type 2 diabetes mellitus with polyneuropathy (HCC) Check [...] of less than 7.5% ([facility]) TAKE 1 TABLET BY MOUTH DAILY. TAKE [...] as of this encounter (statuses as of 11/20/2023) Active Problems Problem Noted Date Diagnosed Date [...] as of this encounter (statuses as of 11/20/2023) Resolved Problems Problem Noted Date Diagnosed Date [...] as of this encounter (statuses as of 11/20/2023) Immunizations Name Administration Dates Next Due COVID-19 [...] do you have serious difficulty h earing? No-[place] 11/07/2023 Are you blind or do you [...] as of this encounter Progress Notes * Afsaneh Gutierrez RN - 11/20/2023 8:10 AM EDT noted documented in this encounter Plan of Treatment Upcoming Encounters Date Type Department Care Team (Late st Contact Info) Description 11/22/2023 9:00 AM EDT Nurse Only Urology Aleida Rinaldi [place] [address] [facility] [address] [address] [place], Nurse Urology [address] [facility] [address] [place] [address] 11/26/2023 8:15 AM EDT Appointment Radiology, [facility] [address] 11/28/2023 3:00 PM EDT Anticoagulation Pharmacy, [address] [place] [address] Pharmacist1, [facility] [place] 21 [facility] [place] [address] 12/11/2023 2:00 PM EDT Office Visit Cardiology, [place] [address] [place] [address] Stefani Mooney CRNP 400 [facility] [place] [address] 01/16/2024 11:30 AM EDT Office Visit Urology AleidaRolo Argueta [address] Cipriano Ishma[place] [address] [place] [address] Bert Boogie Jr., MD [address] [place] [address] 01/21/2024 2:00 PM EDT Office Visit Endocrinology Natalie [address] [place] [address] Sakina Jones MD 100 [place], [place] [address] 01/25/2024 3:30 PM EDT Office Visit [facility] Surgery [facility] [address] [facility] [address] [place] [address] Laney Hogue MD 200 [place] [address] 02/25/2024 11:20 AM EDT Office Visit [facility] 21 [facility] [place] [id number] Kaiser Amanda MD 21 [facility] [place] [address] 10/21/2024 9:15 AM EDT Appointment Radiology, [address] [place] [address] 10/29/2024 9:45 AM EDT Office Visit UrologRolo Crespo [address] Cipriano Ishmael [address] [place] [address] Bert Boogie Jr., MD 27 [place] [address] Scheduled Procedures Name Priority Associated Diagnoses Date/Ti [...] D LEVEL ONCE IN A LIFETIME-USE SMARTSET# 37301 Completed 07/26/2023, 02/26/2023, 01/23/2023, Additional history exists [...] this encounter Medical Devices Implanted Type Area Learning Strategist Device Identifier Shelf Expiration Date Model / Serial / Lot Cement Bone Simplex Hv & G - [id number] Implanted:Qty: 2 on 09/02/2020 by Gianni Hubbard MD at OR [facility] Right: Hip LUDY : ORTHOPAEDICS 08/11/2021 6195-1-010 / / [id number] Spacer Ring Aclde Distal Lg 14 - [id number] Implanted:Qty: 1 on 09/02/2020 by Gianni Hubbard MD at OR [facility] Right: Hip LUDY : ORTHOPAEDICS 11/25/2024 4681-1679 / / Accolade C Cs 127 6 37/158 - [id number] Implanted:Qty: 1 on 09/02/2020 by Gianni Hubbard MD at OR [facility] Right: Hip LUDY : ORTHOPAEDICS 05/29/2023 [id number] / / [id number] Hip Cocr Lfit Head V40 28/+4 - [id number] Implanted:Qty: 1 on 09/02/2020 by Gianni Hubbard MD at OR [facility] Right: Hip LUDY : ORTHOPAEDICS 11/15/2024 6260-9-228 / / [id number] Hip Head Bipol Uhr Uni 28x52 - [id number] Implanted:Qty: 1 on 09/02/2020 by Gianni Hubbard MD at OR [facility] Right: Hip LUDY : ORTHOPAEDICS 11/25/2024 UH1-52-28 / / [id number] Lens Intraoc 17.5 - [id number] - [id number] Implanted:Qty: 1 on 03/23/2022 by Rad Morgan MD at OR [facility] Left: Eye BAUSCH & LOMB 10/11/2026 [id number] / [id number] / [id number] Lens Intraoc 18.0 - [id number] - [id number] Implanted:Qty: 1 on 03/30/2022 by Rad Morgan MD at OR [facility] Right: Eye BAUSCH & LOMB 01/11/2027 [id number] / [id number] / [id number] documented as of this encounter Advance Directives [...] Power of Attor jus? No Care Teams Party Host Relationship Specialty Start Date End Date Kaiser Amanda MD [address] [place] [address] PCP - General Family Medicine 04/11/21 documented as of this encounter
--- OUTSIDE RECORDS SUMMARY | 2024-01-29 20:39 | External Medical Summary | Summary of Care ---
Author Name Unknown Organization [facility] Address [address] [place] [address] Phone [phone] Care Team Providers Care Checker/Stocker Name Role Phone Kaiser Amanda MD Primary Care Provider [phone] Reason for Visit * Reason Comments Hospital Follow-Up * Auth/Cert Specialty Diagnoses / Procedures Referred By Fauzia t Referred To Contact [facility] [address] [place] [address] Phone: [phone] Emergency Medicine [facility] 400 [facility] [place] [address] Referral ID Status Reason Start Date Expiration Date Visits Re quested Visits Authorized [id number] Encounter Details Date Type Department Care Team (Late st Contact Info) Description 11/09/2023 5:50 PM EDT Anticoagulation Pharmacy, [address] [place] [address] Pharmacist2, [address] [place] [address] History of pulmonary embolism*; History of DVT [...] Dx: E11.9 1 Kit 11 06/06/2021 Active VangieTouch [place] 30GIndications:Type 2 diabetes mellitus with hemoglobin A1c [...] of less than 7.5% ([facility]) TAKE 1 TABLET BY MOUTH DAILY. TAKE [...] 2 diabetes mellitus with polyneuropathy ([facility]),Type 2 diabetes mellitus with hemoglobin A1c goal of less than 7.5% ([facility]) USE STRIP TO CHECK GLUCOSE ONCE DAILY [...] this for 10 days. 20 Capsule 11/08/2023 Active documented as of this encounter (statuses [...] mRNA, LNP-s, No Pre serve, 2-Dose Series ([email or web address]) 04/23/2021,08/09/2020,07/12/2020 Covid-19, Mrna, Lnp-s, Pf, B ivalent, [...] do you have serious difficulty h earing? No-[place] 11/07/2023 Are you blind or do you [...] Progress Notes * Jessi Collier RPh - 11/09/2023 8:27 AM EDT Patient admitted to [facility] 11/06-11/07 due to UTI and urinary retention. Patient has been discharged on cefdinir and finasteride. Inpatient pharmacist discharge instructions are incomplete. Patient Phone Numbers mobile [phone] Left a message for patient on the answering machine to call clinic with any problems, questions or changes. INR 2.7 (drawn 11/07) Patient instructed to continue on current dose of coumadin, 5mg daily. Repeat PT/INR in 3 weeks. Jessi Collier RPh Clinical Pharmacist 11/09/2023, 8:29 AM documented in this encounter Plan of Treatment Upcoming Encounters Date Type Department Care Team (Late st Contact Info) Description 11/12/2023 12:00 PM EDT Office Visit [facility] 21 [facility] [place] [address] Kaiser Amanda MD 21 [facility] [place] [address] 11/14/2023 1:30 PM EDT Office Visit [facility] 400 [facility] [place] [address] [facility] Cardiology 400 [facility] [place] [address] 11/22/2023 9:00 AM EDT Nurse Only UrologMia [place] 27 [address] [facility] [address] [address] [place], Nurse Urology [address] [place] [address] 270 [place] [address] 11/28/2023 3:00 PM EDT Anticoagulation Pharmacy, [place] 21 [facility] [place] [address] [place] [address] 21 [facility] [place]HA [place] [address] 12/11/2023 2:00 PM EDT [facility] 400 [facility] [place] [address] Stefani Mooney CRNP 400 [facility] [place] [address] 01/16/2024 11:30 AM EDT Office Visit Urology [place] Colon 27 [address] [facility] [address] [place] [address] Bert Boogie Jr., MD [address] [place] [address] 01/21/2024 2:00 PM EDT Office Visit Endocrinology [address] [place] [address] Sakina Jones MD [address] [facility] [place] [address] 01/25/2024 3:30 PM EDT Office Visit [facility] Surgery [facility] [address] [place] [address] Laney Hogue MD [address] [place] [address] 02/25/2024 9:20 AM EDT Office Visit [facility] 21 [facility] [phone] Kaiser Amanda MD 21 [facility] [address] 10/21/2024 9:15 AM EDT Appointment Radiology, [facility] 400 [place] [address] 10/29/2024 9:45 AM EDT Office Visit Urology Mia [place] [address] [address] Bert Boogie Jr., MD 27 [facility] [place] [phone] Scheduled Procedures Name Priority Associated Diagnoses Date/Ti [...] D LEVEL ONCE IN A LIFETIME-USE SMARTSET# 76747 Completed 07/26/2023, 02/26/2023, 01/23/2023, Additional history exists [...] this encounter Medical Devices Implanted Type Area Steam Station Supervisor Device Identifier Shelf Expiration Date Model / Serial / Lot Cement Bone Simplex Hv & G - [id number] Implanted:Qty: 2 on 09/02/2020 by Gianni Hubbard MD at OR [facility] Right: Hip LUDY : ORTHOPAEDICS 08/11/2021 6195-1-010 / / [id number] Spacer Ring Aclde Distal Lg 14 - [id number] Implanted:Qty: 1 on 09/02/2020 by Gianni Hubbard MD at OR [facility] Right: Hip LUDY : ORTHOPAEDICS 11/25/2024 0013-2839 / / Accolade C Cs 127 6 37/158 - [id number] Implanted:Qty: 1 on 09/02/2020 by Gianni Hubbard MD at OR [facility] Right: Hip LUDY : ORTHOPAEDICS 05/29/2023 6057-0637D / / [id number] Hip Cocr Lfit Head V40 28/+4 - [id number] Implanted:Qty: 1 on 09/02/2020 by Gianni Hubbard MD at OR [facility] Right: Hip LUDY : ORTHOPAEDICS 11/15/2024 6260-9-228 / / [id number] Hip Head Bipol Uhr Uni 28x52 - [id number] Implanted:Qty: 1 on 09/02/2020 by Gianni Hubbard MD at OR [facility] Right: Hip LUDY : ORTHOPAEDICS 11/25/2024 UH1-52-28 / / [id number] Lens Intraoc 17.5 - [id number] - [id number] Implanted:Qty: 1 on 03/23/2022 by Rad Morgan MD at OR [facility] Left: Eye BAUSCH & LOMB 10/11/2026 [id number] / [id number] / [id number] Lens Intraoc 18.0 - [id number] - [id number] Implanted:Qty: 1 on 03/30/2022 by Rad Morgan MD at OR [facility] Right: Eye BAUSCH & LOMB 01/11/2027 [id number] / [id number] / [id number] documented as of this encounter Visit Diagnoses [...] Power of Attor jus? No Care Teams Checker/Stocker Relationship Specialty Start Date End Date Kaiser Amanda MD [address] [place] [address] PCP - General Family Medicine 04/11/21 documented as of this encounter
--- OUTSIDE RECORDS SUMMARY | 2024-01-29 20:39 | External Medical Summary | Summary of Care ---
Author Name Unknown Organization [facility] Address [address] [facility] [place] [address] Phone [phone] Care Team Providers Care Blocker Hand Name Role Phone Kaiser Amanda MD Primary Care Provider +1 [phone] Reason for Visit * Reason Comments Dosage Adjustment In Person (Anticoag Cl inic) Congestive Heart Failure Encounter Details Date Type Department Care Team (Late st Contact Info) Description 11/14/2023 1:30 PM EDT Office Visit [facility]iology, [place] [facility] [place] [address] [facility] Card[facility] 400 [facility] [place] [address] Cardiomyopathy, unspecified type ([facility])* Allergies Active Allergy Reactions Criticality Noted Date Comments Cat Dander Itching 07/14/2016 documented as of this encounter (statuses as of 11/14/2023) Medications Medication Sig Dispensed Refills Start Date [...] [place]),Type 2 diabetes mellitus with polyneuropathy ([facility]) Check BS once daily E11.9 100 Each [...] flares 60 g 2 01/19/2023 Active OneTouch Vertyler In Vitro Strip (Glucose Blood)Indications:Ty pe 2 [...] at bedtime. 60 Capsule 11/08/2023 4 Active Cefdinir 300 MG Oral Capsule (Omnicef) Take 1 Capsule by mouth in the morning and 1 Capsule before bedtime. Do all this for 10 days. 20 Capsule 11/08/2023 4 Active Midodrine HCl 5 MG Oral [...] as of this encounter (statuses as of 11/14/2023) Active Problems Problem Noted Date Diagnosed Date [...] as of this encounter (statuses as of 11/14/2023) Resolved Problems Problem Noted Date Diagnosed Date [...] as of this encounter (statuses as of 11/14/2023) Immunizations Name Administration Dates Next Due COVID-19 [...] Sign Reading Time Taken Comments Blood Pressure 123/82 11/14/2023 1:45 PM EDT Pulse 96 11/14/2023 1:45 PM EDT Temperature - - Respiratory Rate - - Oxygen Saturation - - Inhaled Oxygen Concentration - - Weight - - Height - - Body Mass Index - - documented in this encounter Functional Status Functional Status Response Date of Assess ment Are you deaf or do you have serious difficulty h earing? No-[place] 11/07/2023 Are you blind or do you [...] as of this encounter Progress Notes * Sandra Cole, formerly [facility] - 11/14/2023 1:30 PM EDT PHARMACY CHRONIC DISEASE MANAGEMENT - HEART FAILURE Lewis Alarcon is an 72 year old patient referred to the Heart Failure MTM clinic by Stefani Mooney for the following: General heart failure medication optimization HPI: Patient has heart failure assessment: Heart failure with REDUCED ejection fraction (SYStolic heart failure) undetermined if ischemic heart disease is present Etiology: Most recent LVEF: 32 % Date: 09/06/23 Modality: Echo Previous LVEF: 55 % Date: 04/17/22 Modality: Echo Home vitals: Does patient monitor BP at home? yes Any dizziness or lightheadedness: Yes; stable Home BP log results: 118/64 132/80 132/77 123/73 128/77 134/79 111/67 129/94 119/77 Does patient monitor HR at home? yes Home HR log results: 74 72 92 Does patient monitor weight at home? yes Any increased edema or shortness of breath: Denies Home weight log results: 154-158 lbs ---stable 156.4 11/09/23 Blood sugars: 100 114 105 94 96 130 103 138 155 Objective: BP Readings from Last 3 Encounters: 11/14/23 123/82 11/12/23 110/62 11/08/23 137/73 Pulse Readings from Last 3 Encounters: 11/14/23 96 11/12/23 100 11/08/23 68 Wt Readings from Last 3 Encounters: 11/12/23 71.1 kg (156 lb 11.2 oz) 11/07/23 71.4 kg (157 lb 4.8 oz) 11/04/23 71.7 kg (158 lb) Lab Results Component Value Date/Time CREATININE - [...] URINE 24 HOUR 1.053 06/24/2021 12:41 PM Lab Results Component Value Date/Time SODIUM - [facility] 144 11/08/2023 04:18 AM SODIUM - [facility] 139 11/07/2023 02:20 PM SODIUM - [facility] 138 10/22/2023 09:47 AM SODIUM - [facility] 146 03/30/2020 10:15 AM SODIUM - [facility] 140 12/20/2019 11:15 AM SODIUM - [facility] 143 09/29/2019 09:29 AM Lab Results Component Value Date/Time POTASSIUM - [facility] 3.8 11/08/2023 04:18 AM POTASSIUM - [facility] 4.7 11/07/2023 02:20 PM POTASSIUM - [facility] 4.2 10/22/2023 09:47 AM POTASSIUM - [facility] 4.7 03/30/2020 10:15 AM POTASSIUM - [facility] 4.5 12/20/2019 11:15 AM POTASSIUM - [facility] 4.4 09/29/2019 09:29 AM POTASSIUM-OUTSIDE LAB 4.8 08/12/2018 12:00 AM No results found for: "DIG" Lab Results Component Value Date/Time HGB 11.9 (L) 11/08/2023 04:18 AM HGB 12.0 (L) 11/07/2023 07:39 PM HGB 13.0 (L) 11/07/2023 02:20 PM HGB 13.0 (L) 10/22/2023 09:47 AM HGB 11.3 (L) 10/06/2023 09:01 PM HGB 9.3 (L) 11/14/2021 12:28 PM HGB 12.6 (L) 12/20/2019 11:15 AM HGB 13.6 (L) 04/09/2019 11:01 AM HGB 12.4 (L) 12/18/2018 06:30 AM Lab Results Component Value Date/Time FERRITIN - [facility] 11 (L) 03/13/2022 05:27 PM Lab Results Component Value Date/Time IRON - [facility] 31 (L) 03/13/2022 05:27 PM IRON BINDING CAPACITY - [facility] 417 03/13/2022 05:27 PM Lab Results Component Value Date/Time IRON BINDING CAPACITY - [facility] 417 03/13/2022 05:27 PM Lab Results Component Value Date/Time TRANSFERRIN SATURATION PERCENT - [facility] 7 (L) 03/13/2022 05:27 PM Diet Review: not reviewed Current Cardiac Medication(s): Warfarin Atorvastatin 40 mg daily Minodrine 5 mg TID Metoprolol ER 25 mg tablet-Take 12.5 mg daily Current DM Medications: Metformin 1000 mg IBD Glipizide ER 10 mg daily Eligible for [facility]? Agree or Declined? Not eligible Assessment & Plan: HFrEF Stress test ordered but not scheduled; will get scheduled Hx frequent falls Hx frequent UTI; avoid SGLT2 Unable to titrate GDMT due to symptomatic orthostatic hypotension Pt presents today in wheelchair with . Last seen by Stefani 10/05/23 in office. Admitted 10/06/23-10/11/23 due to syncopal episode likely related to orthostatics. His Losartan was discontinued. Metoprolol was decreased per chart notes, but wasdiscontinued on discharged med rec. He was started on Minodrine 5 mg TID. He was treated for UTI. At last MTM appt, pt having UTI sxs. Urinalysis was ordered and positive, PCP ordered outpatient abx. Pt ended up going to ED and was admitted for UTI treatment. Planning for juarez removal 11/21. Today doing well, remains on abx. At last appt, pt was restated on Metoprolol ER 12.5 mg at bedtime. Tolerating without any worseningdizziness, however he still reports feeling unsteady. Pt has not yet had stress test, will get that scheduled. I do not think I can titrate GDMT further due to pt sxs. Avoiding SGT2 due to frequent UTI. 2. Hx PE -Warfarin 3. Hx Subarachnoid Hemorrhage -08/2023 -Keprra for seizure prophylaxis 4. Non hodgkins lymphoma 5. Controlled type 2 diabetes -HbA1c target <7.5% -Seeing endocrinology -Must avoid SGLT2 due to frequent UTI 6. UTI -On abx -recent hospitalization Medication changes: none Labs Due: none Vaccines Due: not reviewed today Follow up: none; MTM will sign off Sandra Young RPh Clinical Pharmacist Medication Therapy Disease Management 11/14/2023,1:31 PM documented in this encounter Plan of Treatment Upcoming Encounters Date Type Department Care Team (Late st Contact Info) Description 11/22/2023 9:00 AM EDT Nurse Only Urology [place] [address] [place] [id number] Nurse [place] [facility] [address] [place] [address] 11/26/2023 8:15 AM EDT Appointment Radiology, [facility] 400 [place] [address] 11/28/2023 3:00 PM EDT Anticoagulation Pharmacy, [place] 21 [place] [address] Pharmacist1, [facility] [place] 21 [place] [address] 12/11/2023 2:00 PM EDT Office Visit Cardiology, [place] 400 [place] [address] Stefani Mooney CRNP 400 [place] [address] 01/16/2024 11:30 AM EDT [facility] 27 [facility] 270 [place] [address] Bert Boogie Jr., MD 27 [place] [address] 01/21/2024 2:00 PM EDT Office Visit Endocrinology [address] [place] [address] Sakina Jones MD 100 [place] [address] 01/25/2024 3:30 PM EDT Office Visit [facility] Surgery [facility] [address] [place] [address] Laney Hogue MD 200 [place] [address] 02/25/2024 11:20 AM EDT Office Visit Family Practice, [place] 21 [facility] [place] [address] Kaiser Amanda MD 21 [place] [address] 10/21/2024 9:15 AM EDT Appointment Radiology, [facility] [place] [address] 10/29/2024 9:45 AM EDT Office Visit Urology [place] 27 [address] Cipri[address] [place] [address] Bert Boogie Jr., MD [address] [place] [address] Scheduled Procedures Name Priority Associated Diagnoses Date/Ti [...] D LEVEL ONCE IN A LIFETIME-USE SMARTSET# 21731 Completed 07/26/2023, 02/26/2023, 01/23/2023, Additional history exists [...] this encounter Medical Devices Implanted Type Area Loading Unit Operator Seating Device Identifier Shelf Expiration Date Model / Serial / Lot Cement Bone Simplex Hv & G - [id number] Implanted:Qty: 2 on 09/02/2020 by Gianni Hubbard MD at OR [facility] Right: Hip LUDY : ORTHOPAEDICS 08/11/2021 6195-1-010 / / [id number] Spacer Ring Aclde Distal Lg 14 - [id number] Implanted:Qty: 1 on 09/02/2020 by Gianni Hubbard MD at OR [facility] Right: Hip LUDY : ORTHOPAEDICS 11/25/2024 1723-0874 / / Accolade C Cs 127 6 37/158 - [id number] Implanted:Qty: 1 on 09/02/2020 by Gianni Hubbard MD at OR [facility] Right: Hip LUDY : ORTHOPAEDICS 05/29/2023 6057-0637D / / [id number] Hip Cocr Lfit Head V40 28/+4 - [id number] Implanted:Qty: 1 on 09/02/2020 by Gianni Hubbard MD at OR [facility] Right: Hip LUDY : ORTHOPAEDICS 11/15/2024 6260-9-228 / / [id number] Hip Head Bipol Uhr Uni 28x52 - [id number] Implanted:Qty: 1 on 09/02/2020 by Gianni Hubbard MD at OR [facility] Right: Hip LUDY : ORTHOPAEDICS 11/25/2024 UH1-52-28 / / [id number] Lens Intraoc 17.5 - [id number] - [id number] Implanted:Qty: 1 on 03/23/2022 by Rad Morgan MD at OR [facility] Left: Eye BAUSCH & LOMB 10/11/2026 [id number] / [id number] / [id number] Lens Intraoc 18.0 - [id number] - [id number] Implanted:Qty: 1 on 03/30/2022 by Rad Morgan MD at OR [facility] Right: Eye BAUSCH & LOMB 01/11/2027 [id number] / [id number] / [id number] documented as of this encounter Visit Diagnoses Diagnosis Cardiomyopathy, unspecified type (HCC)- Primary documented in this encounter Advance Directives [...] Power of Attor jus? No Care Teams Blocker Hand Relationship Specialty Start Date End Date Kaiser Amanda MD [address] [place] [address] PCP - General Family Medicine 04/11/21 documented as of this encounter
--- OUTSIDE RECORDS SUMMARY | 2024-01-29 20:40 | External Medical Summary | Summary of Care ---
Author Name Unknown Organization [facility] Address [address] [place] [address] Phone [phone] Care Team Providers Care Catalyst Operator Chief Name Role Phone Kaiser Amanda MD Primary Care Provider [phone] Encounter Details Date Type Department Care Team (Late st Contact Info) Description 10/30/2023 4:30 PM EDT Home Visit Care Coordination and Integration [address] [place], [place] [id number] Jess Nevarez [facility] [address], [place] [phone] Allergies Active Allergy Reactions Criticality Noted Date Comments Cat Dander Itching 07/14/2016 documented as of this encounter (statuses as of 10/30/2023) Medications Medication Sig Dispensed Refills Start Date End Date Status OneTouch Ultra 2 w/Device KitIndications:Type 2 diabetes mellitus with hemoglobin A1c goal of less than 7.5% ([facility]) Testing blood sugars twice daily Dx: E11.9 1 Kit 11 06/06/2021 Active OneTouch Delica Lancets 30GIndications:Type 2 diabetes mellitus with hemoglobin A1c goal of less than 7.5% ([facility]),Type 2 diabetes mellitus with polyneuropathy (HCC) Check [...] hemoglobin A1c goal of less than 7.5% ([facility]) TAKE 1 TABLET BY MOUTH DAILY. [...] dissolve on tongue. 20 Tablet 10/17/2023 Active Tamsulosin HCl 0.4 MG Oral Capsule (Flomax) Take 1 Capsule by mouth at bedtime. 90 Capsule 3 10/22/2023 Active Ketoconazole 2 % External Shampoo (Nizoral) APPLY TO SCALP AND EYEBROWS DAILY- LATHER, WAIT 5 MINUTES, THEN RINSE 120 mL 1 10/25/2023 Active Metoprolol Succinate ER 25 MG Oral Tablet Extended Release 24 Hour (toPROL XL) Take 0.5 Tablets by mouth every night at bedtime. 15 Tablet 5 10/29/2023 Active Nitrofurantoin Monohyd Macro 100 MG Oral Capsule (Macrobid)Indication s:Acute cystitis without hematuria Take 1 Capsule by mouth in the morning and 1 Capsule before bedtime. Do all this for 10 days. With food until gone. 20 Capsule 10/30/2023 4 Active documented as of this encounter (statuses as of 10/30/2023) Active Problems Problem Noted Date Diagnosed Date Dysautonomia 07/26/2023 Osteoporosis 07/06/2021 Orthostatic hypotension 05/25/2021 S/P right hip fracture 09/01/2020 Unspecified injury at unspec ified level of cervical spinal cord, sequela 07/19/2020 Hyperparathyroidism 03/27/2019 Anticoagulated on warfarin 12/16/2018 Ambulatory dysfunction 12/04/2018 History of DVT (deep vein thrombosis) 10/24/2018 History of pulmonary embolism 10/24/2018 Essential hypertension with goal blood pressure less than 130/80 02/23/2016 Hyperlipidemia with target LDL less than 100 BPH without obstruction/lower urinary tract symp toms 11/24/2013 Depression with anxiety 07/13/2009 Type 2 diabetes mellitus wit h hemoglobin A1c goal of less than 7.5% 07/13/2009 Overview: ICD-10 update of inactive term History of Hodgkin's disease 05/04/2008 Type 2 diabetes mellitus with polyneuropathy documented as of this encounter (statuses as of 10/30/2023) Resolved Problems Problem Noted Date Diagnosed Date [...] injury, unstageable 12/16/2018 03/27/2019 Quadriplegia 12/05/2018 06/09/2022 Complicated UTI (urinary tract infection) 12/04/2018 10/11/2023 Generalized weakness 12/04/2018 024 Severe malnutrition 12/01/2018 12/06/19 Acute venous embolism and th rombosis of unspecified deep vessels of lower extremity 05/04/2008 08/23/2016 documented as of this encounter (statuses as of 10/30/2023) Immunizations Name Administration Dates Next Due COVID-19 mRNA, LNP-s, No Pre serve, 2-Dose Series ([facility]) 04/23/2021,08/09/2020,07/12/2020 Covid-19, Mrna, Lnp-s, Pf, B [...] Sign Reading Time Taken Comments Blood Pressure 128/76 10/30/2023 4:30 PM EDT Pulse 81 10/30/2023 4:30 PM EDT Temperature 36.6 C (97.8 F) 10/30/2023 4:30 PM ED T Respiratory Rate 16 10/30/2023 4:30 PM EDT Oxygen Saturation 93% 10/30/2023 4:30 PM EDT Inhaled Oxygen Concentration - - [...] No 10/07/2023 documented as of this encounter Progress Notes * Jess Nevarez, [facility] - 10/30/2023 4:31 PM EDT Telemedicine visit: No [facility] (MICHAEL) documentation: CH[facility] home visit BP 128/76 (BP Site: Right Arm, BP Position: Sitting, BP Cuff Size: Regular) | Pulse 81 | Temp 36.6 C (97.8 F) | Resp 16 | SpO2 93% resides w/ in 1 story [facility]--SN, PT/OT--discharged today currently has UTI--picked up abx from [employer] today uses walker, wheelchair w/ all ambulation has shower seat w/ full handicapped bathroom assists w/ shower family/friends local, supportive meds affordable; makes weekly pill box denies falls since last hospitalization was advised to weigh daily, unsure if able d/t safety concerns fasting BS 84 this morning appetite is "ok" reports constipation---using miralax & dulcolax; has appt w/ tmrw, plans to ask aboutd/c iron tablet documented in this encounter Plan of Treatment Upcoming Encounters Date Type Department Care Team (Late st Contact Info) Description 11/07/2023 2:10 PM EDT Anticoagulation Pharmacy, [address] [place] [address] Pharmacist1, [address] [place] [address] 11/07/2023 2:30 PM EDT Office Visit Neurology, [address] [address] Ruth Lobo PA-C [address] [place] [address] 11/08/2023 8:15 AM EDT [facility]ointment [facility] [address] 11/14/2023 1:30 PM EDT Office Visit Cardiology, [place] [address] [place] [address] [facility] [address] [place] [address] 12/11/2023 2:00 PM EDT Office Visit Cardiology, [place] [address] [place] [address] Stefani Mooney CRNP [address] [place] [address] 01/21/2024 2:00 PM EDT Office Visit Endocrinology [address] [place] [address] Sakina Jones MD [address] [facility] [place] [address] 01/25/2024 3:30 PM EDT Office Visit [facility] [address] [place] [address] Laney Hogue MD [address] [place] [address] 02/25/2024 9:20 AM EDT Office Visit [facility] [address] [facility] [place] [phone] Kaiser Amanda MD [address] [facility] [address] [place] [address] 10/21/2024 9:15 AM EDT Appointment Radiology, [facility] [address] [facility] [place] [address] 10/29/2024 9:45 AM EDT Office Visit Urology [place] [address] [place] [address] Bert Boogie Jr., MD [address] [place] [address] Scheduled Procedures Name Priority Associated Diagnoses Date/Ti me COLONOSCOPY FLEXIBLE PROXIMA L DIAGNOSTIC Recall History of colonic polyps Health Maintenance Due Date Last Done Comments Cologuard 11/28/1995 Fecal Occult Blood Test 11/28/1995 Sigmoidoscopy 11/28/1995 COVID-19 Vaccine ( season) 2023 05/19/2022, 04/23/2021, 08/09/2020, Additional history exists Diabetic Eye Exam 12/22/2023 12/21/2022, , 12/21/2022, Additional history exists HOME BP CUFF VALIDATION YEARLY 12/27/2023 12/26/2022 HbA1c 01/26/2024 07/26/2023, 01/12, 04/16/2022, Additional history exists B-12 07/25/2024 07/26/2023, 02/13, 11/15/2021, Additional history exists Diabetic Foot Exam 07/25/2024 07/26/2023, 0 06/09/2022, 04/11/2021, Additional history exists Depression Monitoring 10/14/2024 10/15/2023 Albumin/Creatinine Ratio 10/17/2024 024, 01/10/2023, 07/07/2021, Additional history exists GFR 10/21/2024 10/22/2023, 09/12, 10/09/2023, Additional history exists DXA Scan 01/25/2025 01/25/2023, [...] D LEVEL ONCE IN A LIFETIME-USE SMARTSET# [id number] Completed 07/26/2023, 02/26/2023, 01/23/2023, Additional history exists [...] this encounter Medical Devices Implanted Type Area Hr Consultant Device Identifier Shelf Expiration Date Model / Serial / Lot Cement Bone Simplex Hv & G - [id number] Implanted:Qty: 2 on 09/02/2020 by Gianni Hubbard MD at OR [facility] Right: Hip [employer]UD[employer] : [employer] 08/11/2021 [id number] / / [id number] Spacer Ring Aclde Distal Lg 14 - [id number] Implanted:Qty: 1 on 09/02/2020 by Gianni Hubbard MD at OR [facility] Right: Hip [employer] : [employer] 11/25/2024 [id number] / / Accolade C Cs 127 6 37/158 - [id number] Implanted:Qty: 1 on 09/02/2020 by Gianni Hubbard MD at OR [facility] Right: Hip [employer] : [employer] 05/29/2023 [id number] / / [id number] Hip Cocr Lfit Head V40 28/+4 - [id number] Implanted:Qty: 1 on 09/02/2020 by Gianni Hubbard MD at OR [facility] Right: Hip [employer] : [employer] 11/15/2024 [id number] / / [id number] Hip Head Bipol Uhr Uni 28x52 - [id number] Implanted:Qty: 1 on 09/02/2020 by Gianni Hubbard MD at OR [facility] Right: Hip [employer] : OR[employer] 11/25/2024 [id number] / / [id number] Lens Intraoc 17.5 - [id number] - [id number] Implanted:Qty: 1 on 03/23/2022 by Rad Morgan MD at OR [facility] Left: Eye [employer] 10/11/2026 [id number] / [id number] / [id number] Lens Intraoc 18.0 - [id number] - [id number] Implanted:Qty: 1 on 03/30/2022 by Rad Morgan MD at OR [facility] Right: Eye BA[employer]CH [employer]OMB 01/11/2027 [id number] / [id number] / [id number] documented as of this encounter Advance Directives * Full Code (Latest Code Status on File) Date Activated Date Inactivated Comments 10/06/2023 10:52 [...] No Code Date Activated Date Inactivated Comments 03/23/2022 9:56 AM 03/23/2022 4:51 PM This order reflects the patients wishes and were consensually agreed upon. Question Answer Comments Discussion of Advance Directives occurred with: Patient Does the patient have a Living Will? No Does the patient have Health Care Power of Attor jus? No Care Teams Catalyst Operator Chief Relationship Specialty Start Date End Date Kaiser Amanda MD [address] [place] [address] PCP - General Family Medicine 04/11/21 documented as of this encounter
--- OUTSIDE RECORDS SUMMARY | 2024-01-29 20:40 | External Medical Summary ---
Author Name Unknown Address Unknown Organization [id number]:[facility] - [address] [place] [address] Laboratory Report Ordering Provider Test Date Status ADONIS CROOKS 11/07/2023 14:20:00 Final Observation Date Value Abnormality Reference (Units ) Status Lipase 11/07/2023 14:20:00 24 13-60 (U/L ) Final Performing Location LAB[facility]ATORY [facility] - [address] [place] [address]
--- OUTSIDE RECORDS SUMMARY | 2024-01-29 20:40 | External Medical Summary | Summary of Care ---
Author Name Unknown Organization [facility] Address [address] [facility] [place] [address] Phone [phone] Care Team Providers Care C Architect Name Role Phone Kaiser Amanda MD Primary Care Provider [phone] Reason for Visit * Reason Comments Nausea Painful Urination Encounter Details Date Type Department Care Team (Latest Contact Info) Description 11/04/2023 12:40 PM EDT Convenient [facility] Visit [facility] [address] [place] [id number] Kelli Webb PA-C [address] [place] [address] Acute cystitis with hematuria*; UTI symptoms Allergies Active Allergy Reactions Criticality Noted Date Comments Cat Dander Itching 07/14/2016 documented as of this encounter (statuses as of 11/04/2023) Medications Medication Sig Dispensed Refills Start Date End Date Status OneTouch Ultra 2 w/Device KitIndications:Type 2 diabetes mellitus with hemoglobin A1c goal of less than 7.5% ([facility]) Testing blood sugars twice daily Dx: E11.9 1 Kit 11 06/06/2021 Active OneTouch Delica Lancets 30GIndications:Type 2 diabetes mellitus with hemoglobin A1c goal of less than 7.5% ([facility]),Type 2 diabetes mellitus with polyneuropathy ([facility]) Check BS once daily E11.9 100 [...] hemoglobin A1c goal of less than 7.5% ([facility]) TAKE 1 TABLET BY MOUTH [...] until gone. 20 Capsule 10/30/2023 4 Active Cephalexin 500 MG Oral CapsuleIndications:A cute cystitis with hematuria Take 1 Capsule by mouth in the morning and 1 Capsule at noon and 1 Capsule in the evening and 1 Capsule before bedtime. Do all this for 7 days. 28 Capsule 11/04/2023 4 Active documented as of this encounter (statuses as of 11/04/2023) Active Problems Problem Noted Date Diagnosed Date [...] as of this encounter (statuses as of 11/04/2023) Resolved Problems Problem Noted Date Diagnosed Date [...] as of this encounter (statuses as of 11/04/2023) Immunizations Name Administration Dates Next Due COVID-19 mRNA, LNP-s, No Pre serve, 2-Dose Series ([employer]) 04/23/2021,08/09/2020,07/12/2020 Covid-19, Mrna, Lnp-s, Pf, B ivalent, [...] Date Smoking Tobacco: Never Smokeless Tobacco: Never Tobacco Cessation:Counseling Given: No Alcohol Use Standard Drinks/Week Comments Yes 0 [...] Sign Reading Time Taken Comments Blood Pressure 120/62 11/04/2023 11:29 AM EDT Pulse 71 11/04/2023 11:29 AM EDT Temperature 36.3 C (97.4 F) 11/04/2023 11:29 AM E DT Respiratory Rate 16 11/04/2023 11:29 AM EDT Oxygen Saturation 97% 11/04/2023 11:29 AM EDT Inhaled Oxygen Concentration - - Weight 71.7 kg (158 lb) 11/04/2023 11:29 AM EDT Height 175.3 cm (5' 9") 11/04/2023 11:29 AM EDT Body Mass Index 23.33 11/04/2023 11:29 AM EDT documented in this encounter Functional [...] No 10/07/2023 documented as of this encounter Patient Instructions * Patient Instructions* Kelli Webb PA-C - 11/04/2023 12:35 PM EDT Increase your fluid intake. Take Keflex four times daily for 7 days. Take the antibiotics as prescribed and finish the prescription even if your symptoms improve. Eat more yogurt in your diet or take a probiotic over the counter after finishing the antibiotics. Go to the ER if you develop fever, persistent vomiting, inability to keep liquids or medication down, back pain, abdominal pain, worsening symptoms. documented in this encounter Progress Notes * Kelli Webb PA-C - 11/04/2023 11:35 AM EDT Images from the original note were not included. History of Present Illness Chief Complaint Patient presents with Nausea Painful Urination 72 y/o male presents with UTI symptoms that started two weeks ago. He has had dysuria. Denies urinary urgency, hematuria, urinary frequency. He is currently being treated with Nitrofurantoin and symptoms are worsening. He started the Nitrofurantoin 6 days ago. He now has nausea and decreased appetite. Had a couple episodes of vomiting. Still keeping liquids down but eating less. Denies fever/chills, CP, SOB, cough, abd pain, diarrhea, back pain, or weakness. Past Medical History: Diagnosis Date Cervical spinal cord injury (HCC) 07/13/2018 s/p fall down steps at home Hodgkin's lymphoma (HCC) 1998 Hypercalcemia Pulmonary embolism (HCC) Type 2 diabetes mellitus (HCC) UTI (urinary tract infection) Current Medication List: Nitrofurantoin Monohyd Macro 100 MG Oral Capsule (Macrobid) Metoprolol Succinate ER 25 MG Oral Tablet Extended Release 24 Hour (toPROL XL) Ketoconazole 2 % External Shampoo (Nizoral) Tamsulosin HCl 0.4 MG Oral Capsule (Flomax) Ondansetron 4 MG Oral Tablet Disintegrating (Zofran) Midodrine HCl 5 MG Oral Tablet (Proamatine) Polyethylene Glycol 3350 17 GM Oral Packet (Miralax) Warfarin Sodium 5 MG Oral Tablet (Coumadin) Atorvastatin Calcium 40 MG Oral Tablet (Lipitor) Nitroglycerin 0.4 MG Sublingual Tablet Sublingual (Nitrostat) Omeprazole 20 MG Oral Capsule Delayed Release (PriLOSEC) metFORMIN HCl 1000 MG Oral Tablet (Glucophage) OneTouch Ver In Vitro Strip (Glucose Blood) Hydrocortisone 2.5 % External Cream DULoxetine HCl 60 MG Oral Capsule Delayed Release Particles (Cymbalta) glipiZIDE ER 10 MG Oral Tablet Extended Release 24 Hour (Glucotrol XL) Iron 325 (65 Fe) MG Oral Tablet Cinacalcet HCl 30 MG Oral Tablet (Sensipar) Docusate Sodium 100 MG Oral Capsule (Colace) Vitamin D 25 MCG (1000 UT) Oral Tablet OneTouch DelFreever Lancets 30G MicrolaunchersTouch Ultra 2 w/Device Kit Review of patient's allergies indicates: Allergen Reactions Cat Dander Itching Review of Systems Constitutional: Positive for appetite change. Negative for chills and fever. HENT: Negative for congestion and rhinorrhea. Eyes: Negative for visual disturbance. Respiratory: Negative for shortness of breath. Cardiovascular: Negative for chest pain. Gastrointestinal: Positive for nausea. Negative for abdominal pain, diarrhea and vomiting. Genitourinary: Positive for dysuria. Musculoskeletal: Negative for gait problem. Skin: Negative for rash. Neurological: Negative for weakness and headaches. Psychiatric/Behavioral: Negative for confusion. Physical Exam BP 120/62 | Pulse 71 | Temp 36.3 C (97.4 F) (Tympanic) | Resp 16 | Ht 1.753 m (5' 9") | Wt 71.7kg (158 lb) | SpO2 97% | BMI 23.33 kg/m | BSA 1.87 m Physical Exam Vitals and nursing note reviewed. Constitutional: Appearance: Normal appearance. He is not diaphoretic. Comments: Chronically ill appearing, sitting in wheelchair HENT: Head: Normocephalic and atraumatic. Mouth/Throat: Mouth: Mucous membranes are moist. Pharynx: Oropharynx is clear. Eyes: Conjunctiva/sclera: Conjunctivae normal. Pupils: Pupils are equal, round, and reactive to light. Cardiovascular: Rate and Rhythm: Normal rate and regular rhythm. Pulmonary: Effort: Pulmonary effort is normal. No respiratory distress. Breath sounds: Normal breath sounds. No wheezing, rhonchi or rales. Abdominal: Palpations: Abdomen is soft. Tenderness: There is no abdominal tenderness. There is no right CVA tenderness, left CVA tendernessor guarding. Musculoskeletal: General: Normal range of motion. Cervical back: Normal range of motion. Skin: General: Skin is warm and dry. Neurological: General: No focal deficit present. Mental Status: He is alert and oriented to person, place, and time. Psychiatric: Mood and Affect: Mood normal. Behavior: Behavior normal. I have reviewed the following results: UA large esterase, positive nitrites, small blood, protein 100, small bili, urine culture in process Assessment and Plan Reviewed records, pt had positive urine culture on 10/04/23 for Klebsiella pneumoniae which had intermediate sensitivity to Nitrofurantoin, sensitive to cephalosporins and Cipro and Bactrim. UA on 10/29/23 showed infection but no culture was done. UA here shows infection and will send culture. Willtreat with keflex. Counseled to increased fluid intake. Recommended close f/u with PCP and to go tothe ER with any worsening symptoms. Acute cystitis with hematuria - Cephalexin 500 MG Oral Capsule; Take 1 Capsule by mouth in the morning and 1 Capsule at noon and 1 Capsule in the evening and 1 Capsule before bedtime. Do all this for 7 days. UTI symptoms - URINALYSIS, POINT OF CARE (ENTER/EDIT) - CULTURE, URINE, QUANTITATIVE; Future - CULTURE, URINE, QUANTITATIVE Wrap-Up Return if symptoms worsen or fail to improve. Given handout and instructions: Increase your fluid intake. Take Keflex four times daily for 7 days. Take the antibiotics as prescribed and finish the prescription even if your symptoms improve. Eat more yogurt in your diet or take a probiotic over the counter after finishing the antibiotics. Go to the ER if you develop fever, persistent vomiting, inability to keep liquids or medication down, back pain, abdominal pain, worsening symptoms. Time: I spent a total of 10-19 minutes (exact time 18 mins) on the date of service in preparation, delivery, and documentation of the care provided to Lewis Alarcon excluding any time spent in the performance of separately billed services. documented in this encounter Nursing Notes * Laney Cuellar, PBT - 11/04/2023 11:31 AM EDT Lewis Alarcon is a 72 year old male who presents to walk-in clinic today complaining of Chief Complaint Patient presents with Nausea Painful Urination Main Symptoms:Has pain with urination and nausea, loss of appetite Cause: Diagnosed with UTI, being treated currently How long: Onset 2 weeks Tried: Currently taking Nitrofurantoin Pt accompanied by: Self, spouse documented in this encounter Miscellaneous Notes * Pt Handout (on AVS) - Kelli Webb PA-C - 11/04/2023 12:36 PM EDT Images from the original note were not included. [address] Understanding Urinary Tract Infections (UTIs) Most UTIs [...] or kidneys for them. Last Reviewed Date: 07/13/202319990447-8337 [employer]. All rights reserved. This information is not intended as a substitute for professional medical care. Always follow your healthcare professional's instructions. documented in this encounter Plan of Treatment Upcoming Encounters Date Type Department Care Team (Late st Contact Info) Description 11/07/2023 2:10 PM EDT Anticoagulation Pharmacy, [address] [address] Pharmacist1, [address] [address] 11/07/2023 2:30 PM EDT Office Visit Neurology, [address] [address] Ruth Lobo PA-C [address] [place] [address] 11/08/2023 8:15 AM EDT Appointment Radiology, [facility] [address] 11/14/2023 1:30 PM EDT Office Visit Cardiology, [place] [address] [place] [address] [facility] Cardiology [address] [place] [address] 12/11/2023 2:00 PM EDT Office Visit Cardiology, [place] [address] [place] [address] Stefani Mooney CRNP [address] [place] [address] 01/21/2024 2:00 PM EDT Office Visit Endocrinology [address] [place] [address] Sakina Jones MD [address] [facility] [place] [address] 01/25/2024 3:30 PM EDT Office Visit [facility] [place] [place] [address] [place] [address] Laney Hogue MD 200 [place] [address] 02/25/2024 9:20 AM EDT Office Visit [facility] [address] [facility] [place] [phone] Kaiser Amanda MD 21 [facility] [place] [address] 10/21/2024 9:15 AM EDT Appointment Radiology, [facility] [address] [facility] [place] [address] 10/29/2024 9:45 AM EDT Office Visit Urology [place] 27 [facility] [address] [place] [address] Bert Boogie Jr., MD [address] [facility] [address] [facility] [address] Pending Results Name Type Priority Associated Diagnoses Date /Time CULTURE, URINE, QUANTITATIVE Lab Routine UTI symptoms 11/04/2023 12:22 PM EDT Scheduled Orders Name Type Priority Associated Diagnoses Orde r Schedule CULTURE, URINE, QUANTITATIVE Lab Routine UTI symptoms Expected: 11/04/2023, Expires: 11/03/2024 Scheduled Procedures Name Priority Associated Diagnoses Date/Ti [...] D LEVEL ONCE IN A LIFETIME-USE SMARTSET# [id number] Completed 07/26/2023, 02/26/2023, 01/23/2023, Additional history exists [...] this encounter Medical Devices Implanted Type Area Lute Packer Or Applier Device Identifier Shelf Expiration Date Model / Serial / Lot Cement Bone Simplex Hv & G - [id number] Implanted:Qty: 2 on 09/02/2020 by Gianni Hubbard MD at OR [facility] Right: Hip LUDY : ORTHOPAEDICS 08/11/2021 6195-1-010 / / [id number] Spacer Ring Aclde Distal Lg 14 - [id number] Implanted:Qty: 1 on 09/02/2020 by Gianni Hubbard MD at OR [facility] Right: Hip LUDY : ORTHOPAEDICS 11/25/2024 4090-7040 / / Accolade C Cs 127 6 37/158 - [id number] Implanted:Qty: 1 on 09/02/2020 by Gianni Hubbard MD at OR [facility] Right: Hip LUDY : ORTHOPAEDICS 05/29/2023 [id number] / / [id number] Hip Cocr Lfit Head V40 28/+4 - [id number] Implanted:Qty: 1 on 09/02/2020 by Gianni Hubbard MD at OR [facility] Right: Hip LUDY : ORTHOPAEDICS 11/15/2024 6260-9-228 / / [id number] Hip Head Bipol Uhr Uni 28x52 - [id number] Implanted:Qty: 1 on 09/02/2020 by Gianni Hubbard MD at OR [facility] Right: Hip LUDY : ORTHOPAEDICS 11/25/2024 UH1-52-28 / / [id number] Lens Intraoc 17.5 - [id number] - [id number] Implanted:Qty: 1 on 03/23/2022 by Rad Morgan MD at OR [facility] Left: Eye BAUSCH & LOMB 10/11/2026 [id number] / [id number] / [id number] Lens Intraoc 18.0 - [id number] - [id number] Implanted:Qty: 1 on 03/30/2022 by Rad Morgan MD at OR [facility] Right: Eye BAUSCH & LOMB 01/11/2027 [id number] / [id number] / [id number] documented as of this encounter Procedures Procedure Name Priority Date/Time Associated Diagnosis Comments URINALYSIS, POINT OF CARE (ENTER/EDIT) Routine 11/04/2023 12:18 PM EDT UTI symptoms documented in this encounter Results * (ABNORMAL) URINALYSIS, POINT OF CARE (ENTER/EDIT) (11/04/2023 12:18 PM EDT) Color, Urine Jordana Yellow or Light Yellow Clarity, Urine Cloudy Clear Glucose, Urine Negative Negative mg/dL Bilirubin, Urine Small Negative Ketone, Urine 15 Negative mg/dL Specific [place], Urine 1.020 1.003 - 1.030 Blood, Urine Small Negative pH, Urine 5.5 5.0 - 7.5 units Protein, Urine 100 Negative mg/dL Urobilinogen, Urine 1.0 0.2 - 1.0 mg/dL Nitrite, Urine Positive Negative Esterase, Urine Large Negative Urine 11/04/2023 12:1 8 PM EDT Kelli Webb PA-C LAB POINT O F CARE TEST ENTER/EDIT ORDERABLES documented in this encounter Visit Diagnoses Diagnosis Acute cystitis with hematuria- Primary Acute cystitis UTI symptoms Other symptoms involving urinary system documented in this encounter Advance Directives * [...] Power of Attor jus? No Care Teams C Architect Relationship Specialty Start Date End Date Kaiser Amanda MD [address] [place] [address] PCP - General Family Medicine 04/11/21 documented as of this encounter
--- OUTSIDE RECORDS SUMMARY | 2024-01-29 20:40 | External Medical Summary | Summary of Care ---
Author Name Unknown Organization [facility] Address [address] [place] [address] Phone [phone] Care Team Providers Care Slash Trimmer Name Role Phone Kaiser Amanda MD Primary Care Provider [phone] Encounter Details Date Type Department Care Team (Late st Contact Info) Description 11/05/2023 11:45 AM EDT Scheduled Telephone Care Coordination and Integration [address] [place], [place] [phone] Laney Alonso, Community Health Personal Injury Litigation Paralegal [address] [place], [place] [phone] Allergies Active Allergy Reactions Criticality Noted Date Comments Cat Dander Itching 07/14/2016 documented as of this encounter (statuses as of 11/05/2023) Medications Medication Sig Dispensed Refills Start Date End Date Status OneTouch Ultra 2 w/Device KitIndications:Type 2 diabetes mellitus with hemoglobin A1c goal of less than 7.5% ([facility]) Testing blood sugars twice daily Dx: E11.9 1 Kit 11 06/06/2021 Active OneTouch Delica Lancets 30GIndications:Type 2 diabetes mellitus with hemoglobin A1c goal of less than 7.5% ([facility]),Type 2 diabetes mellitus with polyneuropathy (HCC) Check [...] hemoglobin A1c goal of less than 7.5% ([facility]) TAKE 1 TABLET BY MOUTH DAILY. [...] as of this encounter (statuses as of 11/05/2023) Active Problems Problem Noted Date Diagnosed Date [...] as of this encounter (statuses as of 11/05/2023) Resolved Problems Problem Noted Date Diagnosed Date [...] as of this encounter (statuses as of 11/05/2023) Immunizations Name Administration Dates Next Due COVID-19 mRNA, LNP-s, No Pre serve, 2-Dose Series ([facility]) 04/23/2021,08/09/2020,07/12/2020 Covid-19, Mrna, Lnp-s, Pf, B ivalent, [...] as of this encounter Progress Notes * Laney Alonso, Community Health Personal Injury Litigation Paralegal - 11/05/2023 12:01 PM EDT Telemedicine visit: No Community Health Personal Injury Litigation Paralegal (MICHAEL) documentation: REINIER weekly #3- CHW placed PC to patient and spouse answered Spouse requested that CHW give a call back in abut 30 minutes, was not home at the time. Laney Alonso- Community Health Worker 1 Support Services/[facility] [employer] Plan [email or web address] Electronically signed by Laney Alonso, Community Health Personal Injury Litigation Paralegal at 11/05/2023 12:02 PM EDT documented in this encounter Plan of Treatment Upcoming Encounters Date Type Department Care Team (Late st Contact Info) Description 11/07/2023 2:10 PM EDT Anticoagulation Pharmacy, [place] [address] Pharmacist1, [facility] [place] [address] 11/07/2023 2:30 PM EDT Office Visit Neurology, [place] [address] Ruth Lobo PA-C [address] [place] [place] [address] 11/08/2023 8:15 AM EDT Appoint[address], [address] [address] 11/14/2023 1:30 PM EDT Office Visit Cardiology, [address] [address] Rolo [facility] Cardiology [address] [place] [address] 12/11/2023 2:00 PM EDT Office Visit Cardiology, [address] [address] Stefani Mooney CRNP [address] [place] [address] 01/21/2024 2:00 PM EDT Office Visit Endocrinology [address] [place] [address] Sakina Jones MD [address] [place] [address] 01/25/2024 3:30 PM EDT [facility] [address] [place] [address] Laney Hogue MD 200 [place] [address] 02/25/2024 9:20 AM EDT Office Visit Family Practice, [place] 21 [facility] [place] [address] Kaiser Amanda MD 21 [place] [address] 10/21/2024 9:15 AM EDT Appointment Radiology, [address] [place] [address] 10/29/2024 9:45 AM EDT Office Visit Urology [place] [address] [place] [address] Bert Boogie Jr., MD [address] [place] [address] Scheduled Procedures Name Priority Associated Diagnoses Date/Ti [...] 07/07/2021, Additional history exists GFR 10/21/2024 10/22/2023, 052 01/2024, 10/09/2023, Additional history exists DXA Scan 01/25/2025 [...] D LEVEL ONCE IN A LIFETIME-USE SMARTSET# [id number] Completed 07/26/2023, 02/26/2023, 01/23/2023, Additional history exists [...] this encounter Medical Devices Implanted Type Area Avionics Test Technician Device Identifier Shelf Expiration Date Model / Serial / Lot Cement Bone Simplex Hv & G - [id number] Implanted:Qty: 2 on 09/02/2020 by Gianni Hubbard MD at OR [facility] Right: Hip LUDY : ORTHOPAEDICS 08/11/2021 6195-1-010 / / [id number] Spacer Ring Aclde Distal Lg 14 - [id number] Implanted:Qty: 1 on 09/02/2020 by Gianni Hubbard MD at OR [facility] Right: Hip LUDY : ORTHOPAEDICS 11/25/2024 7787-0115 / / Accolade C Cs 127 6 37/158 - [id number] Implanted:Qty: 1 on 09/02/2020 by Gianni Hubbard MD at OR [facility] Right: Hip LUDY : ORTHOPAEDICS 05/29/2023 6057-0637D / / [id number] Hip Cocr Lfit Head V40 28/+4 - [id number] Implanted:Qty: 1 on 09/02/2020 by Gianni Hubbard MD at OR [facility] Right: Hip LUDY : ORTHOPAEDICS 11/15/2024 6260-9-228 / / [id number] Hip Head Bipol Uhr [facility] 28x52 - [id number] Implanted:Qty: 1 on 09/02/2020 by Gianni Hubbard MD at OR [facility] Right: Hip LUDY : ORTHOPAEDICS 11/25/2024 UH1-52-28 / / [id number] Lens Intraoc 17.5 - [id number] - [id number] Implanted:Qty: 1 on 03/23/2022 by Rad Morgan MD at OR [facility] Left: Eye BAUSCH & LOMB 10/11/2026 [id number] / [id number] / [id number] Lens Intraoc 18.0 - [id number] - [id number] Implanted:Qty: 1 on 03/30/2022 by Rad Morgan MD at OR [facility] Right: Eye BAUSCH & LOMB 01/11/2027 [id number] / [id number] / [id number] documented as of this encounter Advance Directives [...] Power of Attor jus? No Care Teams Slash Trimmer Relationship Specialty Start Date End Date Kaiser Amanda MD [address] [address] [address] PCP - General Family Medicine 04/11/21 documented as of this encounter
--- OUTSIDE RECORDS SUMMARY | 2024-01-29 20:40 | External Medical Summary ---
Author Name Unknown Address Unknown Organization K1F:LABORATORY [facility] - [address] [place] [address] Laboratory Report Ordering Provider Test Date Status ADONIS CROOKS 11/07/2023 14:20:00 Final Observation Date Value Abnormality Reference (Units ) Status WBC, Total 11/07/2023 14:20:00 7.67 4.00-10.80 (K/uL) Final RBC 11/07/2023 14:20:00 4.23 4.50-5.25 (M/uL) Final Hemoglobin 11/07/2023 14:20:00 13.0 Below low normal 14.0-16.8 (g/dL) Final HCT 11/07/2023 14:20:00 39.6 Below low normal 40.0-48.4 (%) Final MCV 11/07/2023 14:20:00 93.6 82.0-99.5 (fL) Final MCH 11/07/2023 14:20:00 30.7 27.0-34.0 (pg) Final MCHC 11/07/2023 14:20:00 32.8 32.0-36.0 (g/dL) Final RDW 11/07/2023 14:20:00 13.5 11.5-15.5 (%) Final Platelets 11/07/2023 14:20:00 214 140-400 (K/uL) Final MPV 11/07/2023 14:20:00 8.7 6.6-11.1 (fL) Final Nucleated erythrocytes/100 leukocytes [Ratio] in Blood by Automated count 11/07/2023 14:20:00 0 <=0 (/100 WBCs) Final Performing Location LABORATORY [facility] - [address] [place] [address]
--- OUTSIDE RECORDS SUMMARY | 2024-01-29 20:40 | External Medical Summary ---
Author Name Unknown Address Unknown Organization K1F:LABORATORY [facility] - [address] [place] [address] Laboratory Report Ordering Provider Test Date Status POWER DUNN 11/08/2023 04:18:00 Final Warfarin Therapy
INR: 2 .0-3.0 conventional anticoagulation
INR: 2.5- 3.5 high intensity anticoagulation Observation Date Value Abnormality Reference (Units ) Status PT 11/08/2023 04:18:00 29.0 Above high normal 11 .6-15.2 (seconds) Final INR 11/08/2023 04:18:00 2.7 Above high normal 0. 8-1.2 Final Performing Location LABORATORY [facility] - [address] [place] [address]
--- OUTSIDE RECORDS SUMMARY | 2024-01-29 20:40 | External Medical Summary ---
Author Name Unknown Address Unknown Organization K1F:LABORATORY [facility] - [address] [place] [address] Laboratory Report Ordering Provider Test Date Status LALIT BENNETTKATE 11/07/2023 14:20:00 Final Less than 0.5 ng/mL: Low ris k for progression to sepsis. Review patients condition for localized infections.

0.5 to 2.0 ng/mL: Intermediate risk for progresion to sepsis. Review underlying conditions. Recommend repeat PCT after 6 hours has elapsed.

Greater than 2.0 ng/mL: high risk for progression to sepsis unless other causes are known. Observation Date Value Abnormality Reference (Units ) Status Procalcitonin [Mass/volume] in Serum or Plasma by Immunoassay 11/07/2023 14:20:00 0.08 <0.10 (ng/mL) Final Performing Location LABORATORY [facility] - [address] [place] [address]
--- OUTSIDE RECORDS SUMMARY | 2024-01-29 20:40 | External Medical Summary | Summary of Care ---
Author Name Unknown Organization [facility] Address [address] [address] Phone [phone] Care Team Providers Care Cutting Table Operator First Name Role Phone Kaiser Amanda MD Primary Care Provider +1 [phone] Reason for Visit * Reason Comments Status Check Encounter Details Date Type Department Care Team (Late st Contact Info) Description 11/07/2023 2:10 PM EDT Anticoagulation Pharmacy, [address] [place] [address] Pharmacist1, [address] [place] [address] History of pulmonary embolism*; History of DVT (deep vein thrombosis) Allergies Active Allergy Reactions Criticality Noted Date Comments Cat Dander Itching 07/14/2016 documented as of this encounter (statuses as of 11/07/2023) Medications Medication Sig Dispensed Refills Start Date End Date Status OneTouch Ultra 2 w/Device KitIndications:Type 2 diabetes mellitus with hemoglobin A1c goal of less than 7.5% ([facility]) Testing blood sugars twice daily Dx: E11.9 1 Kit 11 06/06/2021 Active OneTouch Delica Lancets 30GIndications:Type 2 diabetes mellitus with hemoglobin A1c goal of less than 7.5% ([facility]),Type 2 diabetes mellitus with [...] A1c goal of less than 7.5% ([facility]) TAKE 1 TABLET BY [...] at bedtime. 15 Tablet 5 10/29/2023 Active Cephalexin 500 MG Oral CapsuleIndications:A cute cystitis with hematuria Take 1 Capsule by mouth in the morning and 1 Capsule at noon and 1 Capsule in the evening and 1 Capsule before bedtime. Do all this for 7 days. 28 Capsule 11/04/2023 4 Active documented as of this encounter (statuses as of 11/07/2023) Active Problems Problem Noted Date Diagnosed Date [...] as of this encounter (statuses as of 11/07/2023) Resolved Problems Problem Noted Date Diagnosed Date [...] as of this encounter (statuses as of 11/07/2023) Immunizations Name Administration Dates Next Due COVID-19 [...] this encounter Progress Notes * Jessi Collier RP - 11/07/2023 2:45 PM EDT Patient currently at ER due to ongoing UTI symptoms. Will check for status update tomorrow. Jessi Collier PharmAnna, [facility] Clinical Pharmacist 11/07/2023, 2:46 PM documented in this encounter Plan of Treatment Upcoming Encounters Date Type Department Care Team (Late st Contact Info) Description 11/08/2023 8:15 AM EDT Appointment Radiology, [address] [address] 11/08/2023 5:50 PM EDT Anticoagulation Pharmacy, [address] [place] [address] Pharmacist2, [address] [address] 11/14/2023 1:30 PM EDT Office Visit Cardiology, [address] [address] [facility] [address] [place], [place] [address] [address] 12/11/2023 2:00 PM EDT Office Visit Cardiology [address] [address] Stefani Mooney CRNP [address] [place] [address] 01/21/2024 2:00 PM EDT Office Visit Endocrinology [address] [place] [address] Sakina Jones MD [address] [place], [place] [id number] 01/25/2024 3:30 PM EDT Office Visit [facility] Surgery [facility] [address] [place] [address] Laney Hogue MD 200 [place] [address] 02/25/2024 9:20 AM EDT Office Visit [facility] 21 [facility] [place] [address] Kaiser Amanda MD 21 [place] [address] 10/21/2024 9:15 AM EDT Appointment Radiology, [facility] 400 [place] [address] 10/29/2024 9:45 AM EDT Office Visit Urology [place] [address] [place] [address] Bert Boogie Jr., MD [address] [place] [address] Scheduled Procedures Name Priority Associated Diagnoses Date/Ti [...] 024, 01/10/2023, 07/07/2021, Additional history exists GFR 11/06/2024 11/07/2023, 10/12, 10/10/2023, Additional history exists DXA Scan 01/25/2025 01/25/2023, [...] D LEVEL ONCE IN A LIFETIME-USE SMARTSET# [id number] Completed 07/26/2023, 02/26/2023, 01/23/2023, Additional history exists [...] this encounter Medical Devices Implanted Type Area Music Librarian Device Identifier Shelf Expiration Date Model / Serial / Lot Cement Bone Simplex Hv & G - [id number] Implanted:Qty: 2 on 09/02/2020 by Gianni Hubbard MD at OR [facility] Right: Hip LUDY : ORTHOPAEDICS 08/11/2021 6195-1-010 / / [id number] Spacer Ring Aclde Distal Lg 14 - [id number] Implanted:Qty: 1 on 09/02/2020 by Gianni Hubbard MD at OR [facility] Right: Hip LUDY : ORTHOPAEDICS 11/25/2024 [id number] / / Accolade C Cs 127 6 37/158 - [id number] Implanted:Qty: 1 on 09/02/2020 by Gianni Hubbard MD at OR [facility] Right: Hip LUDY : ORTHOPAEDICS 05/29/2023 [id number] / / [id number] Hip Cocr Lfit Head V40 28/+4 - [id number] Implanted:Qty: 1 on 09/02/2020 by Gianni Hubbard MD at OR [facility] Right: Hip LUDY : ORTHOPAEDICS 11/15/2024 6260-9-228 / / [id number] Hip Head Bipol Uhr Uni 28x52 - [id number] Implanted:Qty: 1 on 09/02/2020 by Gianni Hubbard MD at OR [facility] Right: Hip LUDY : ORTHOPAEDICS 11/25/2024 [id number] / / [id number] Lens Intraoc 17.5 - [id number] - [id number] Implanted:Qty: 1 on 03/23/2022 by Rad Morgan MD at OR [facility] Left: Eye BAUSCH & LOMB 10/11/2026 [id number] / [id number] / [id number] Lens Intraoc 18.0 - [id number] - [id number] Implanted:Qty: 1 on 03/30/2022 by Rad Morgan MD at [facility] Right: Eye BAUSCH & LOMB 01/11/2027 [id number] / [id number] / [id number] documented as of this encounter Visit Diagnoses [...] Power of Attor jus? No Care Teams Cutting Table Operator First Relationship Specialty Start Date End Date Kaiser Amanda MD [address] [place] [id number] PCP - General Family Medicine 04/11/21 documented as of this encounter
--- OUTSIDE RECORDS SUMMARY | 2024-01-29 20:40 | External Medical Summary ---
Author Name Unknown Address Unknown Organization K1F:LABORATORY [facility] - [address] [place] [address] Laboratory Report Ordering Provider Test Date Status ANA MARIA DIAZ 11/08/2023 04:18:00 Final Observation Date Value Abnormality Reference (Units ) Status WBC, Total 11/08/2023 04:18:00 6.24 4.00-10.80 (K/uL) Final RBC 11/08/2023 04:18:00 3.95 4.50-5.25 (M/uL) Final Hemoglobin 11/08/2023 04:18:00 11.9 Below low normal 14.0-16.8 (g/dL) Final HCT 11/08/2023 04:18:00 36.8 Below low normal 40.0-48.4 (%) Final MCV 11/08/2023 04:18:00 93.2 82.0-99.5 (fL) Final MCH 11/08/2023 04:18:00 30.1 27.0-34.0 (pg) Final MCHC 11/08/2023 04:18:00 32.3 32.0-36.0 (g/dL) Final RDW 11/08/2023 04:18:00 13.4 11.5-15.5 (%) Final Platelets 11/08/2023 04:18:00 180 140-400 (K/uL) Final MPV 11/08/2023 04:18:00 9.3 6.6-11.1 (fL) Final Nucleated erythrocytes/100 leukocytes [Ratio] in Blood by Automated count 11/08/2023 04:18:00 0 <=0 (/100 WBCs) Final Performing Location LABORATORY [facility] - [address] [place] [address]
--- OUTSIDE RECORDS SUMMARY | 2024-01-29 20:40 | External Medical Summary ---
Author Name Unknown Address Unknown Organization K01:LABORATORY [facility] - [address] [place] [address] Laboratory Report Ordering Provider Test Date Status ANA MARIA DIAZ 11/08/2023 04:18:00 Final Observation Date Value Abnormality Reference (Units ) Status HbA1C 11/08/2023 04:18:00 6.8 Above high normal 4. 0-5.6 (%) Final The use of HbA1c to monitor glycemic status is based on normal hemoglobin and HbA composition. This test should not be used in patients with abnormal hemoglobin that affects the half life of the red blood cell or the in vivo glycation rates. Glucose, estimated average 11/08/2023 04:18:00 148 Above high normal <126 (mg/dL) Rafael mendez Performing Location LABORATORY [facility] - [address] [place] [address]
--- OUTSIDE RECORDS SUMMARY | 2024-01-29 20:40 | External Medical Summary ---
Author Name Unknown Address Unknown Organization K1F:LABORATORY [facility] - [address] [place] [address] Laboratory Report Ordering Provider Test Date Status ANA MARIA DIAZ 11/08/2023 04:18:00 Final Observation Date Value Abnormality Reference (Units ) Status BUN 11/08/2023 04:18:00 14 6-20 (mg/dL) Final Creatinine 11/08/2023 04:18:00 0.9 0.6-1.2 (mg/dL) Final Glomerular filtration rate/1.73 sq M.predicted [Volume Rate/Area] in Serum, Plasma or Blood by Creatinine-based formula (CKD-EPI) 11/08/2023 04:18:00 87 >=60 (mL/min) Final eGFR is calculated based on the CKD-EPI 2020 equation Sodium 11/08/2023 04:18:00 144 135-146 (m mol/L) Final Potassium 11/08/2023 04:18:00 3.8 3.5-5.1 (m mol/L) Final Cl 11/08/2023 04:18:00 110 Above high normal 98 -107 (mmol/L) Final CO2 11/08/2023 04:18:00 24 22-32 (mmo l/L) Final Anion gap 11/08/2023 04:18:00 10 7-15 (mmol /L) Final Glucose 11/08/2023 04:18:00 86 70-120 (mg /dL) Final Calcium 11/08/2023 04:18:00 7.9 Below low normal 8.4 -10.2 (mg/dL) Final Performing Location [facility] [address] [facility] [place] [address]
--- OUTSIDE RECORDS SUMMARY | 2024-01-29 20:40 | External Medical Summary | Summary of Care ---
Author Name Unknown Organization [facility] Address [address] [facility] [place] [address] Phone [phone] Care Team Providers Care Computer Support Specialist Name Role Phone Kaiser Amanda MD Primary Care Provider [phone] [phone] Reason for Visit * Reason Comments Status Check Encounter Details Date Type Department Care Team (Late st Contact Info) Description 11/08/2023 5:50 PM EDT Anticoagulation Pharmacy, [address] [place] [address] Pharmacist2, [address] [place] [address] History of pulmonary embolism*; History of DVT (deep vein thrombosis) Allergies Active Allergy Reactions Criticality Noted Date Comments Cat Dander Itching 07/14/2016 documented as of this encounter (statuses as of 11/08/2023) Medications Medication Sig Dispensed Refills Start Date End Date Status OneTouch Ultra 2 w/Device KitIndications:Type 2 diabetes mellitus with hemoglobin A1c goal of less than 7.5% ([facility]) Testing blood sugars twice daily Dx: E11.9 1 Kit 11 06/06/2021 Suspended Additional Information OneTouch Delica Lancets 30GIndications:Type 2 diabetes mellitus with hemoglobin A1c goal of less than 7.5% (HCC),Type 2 diabetes mellitus with polyneuropathy (HCC) Check BS once daily E11.9 100 Each 06/22/2021 Suspended Additional Information Docusate Sodium 100 MG Oral Capsule (Colace) Take 1 Capsule (100 mg) by mouth in the morning and 1 Capsule (100 mg) before bedtime. 10 Capsule 04/18/2022 Suspended Additional Information Vitamin D 25 MCG (1000 UT) Oral [...] Tablet by mouth every evening. 09/12/2022 Suspended glipiZIDE ER 10 MG Oral Tablet Extended Release 24 Hour (Glucotrol XL)Indications:Type 2 diabetes mellitus with hemoglobin A1c goal of less than 7.5% ([facility]) TAKE 1 TABLET BY MOUTH DAILY. TAKE 30 MINUTES BEFORE A MEAL 90 Tablet 3 12/26/2022 Suspended Additional Information DULoxetine HCl 60 MG Oral Capsule Delayed Release Particles (Cymbalta)Indicatio ns:Depression with anxiety Take 1 Capsule by mouth in the morning. 90 Capsule 3 12/26/2022 Suspended Additional Information Hydrocortisone 2.5 % External Cream Apply to eyebrows twice daily for 3-5 days at a time as needed for flares 60 g 2 01/19/2023 Suspended Additional Information VangieTolinda Vertyler In Vitro Strip (Glucose Blood)Indications:T ype 2 diabetes mellitus with polyneuropathy (HCC),Type 2 diabetes mellitus with hemoglobin A1c goal of less than 7.5% (HCC) USE STRIP TO CHECK GLUCOSE ONCE DAILY 100 Strip 3 07/16/2023 Suspended Additional Information metFORMIN HCl 1000 MG Oral Tablet (Glucophage) TAKE 1 TABLET BY MOUTH TWICE A DAY WITH BREAKFAST AND DINNER 180 Tablet 1 07/21/2023 Suspended Additional Information Patient taking differently: 1,000 [...] 90 Tablet 3 08/14/2023 Suspended Additional Information Warfarin Sodium 5 MG Oral Tablet (Coumadin) Take 1 Tablet by mouth in the morning. Suspended Polyethylene Glycol 3350 17 GM Oral Packet (Miralax) Mix 1 Packet in 4 to 8 ounces of any beverage and drink by mouth daily as needed for Constipation. 30 Packet 1 10/11/2023 Suspended Additional Information Midodrine HCl 5 MG Oral Tablet (Proamatine) Take 1 Tablet by mouth in the morning and 1 Tablet at noon and 1 Tablet in the evening. 90 Tablet 10/11/2023 4 Suspended Additional Information Ondansetron 4 MG Oral Tablet Disintegrating (Zofran)Indications :Nausea and vomiting, unspecified vomiting type Place 1 Tablet on tongue every 8 hours as needed for Nausea. dissolve on tongue. 20 Tablet 10/17/2023 Suspended Additional Information Tamsulosin HCl 0.4 MG Oral Capsule (Flomax) Take 1 Capsule by mouth at bedtime. 90 Capsule 3 10/22/2023 Suspended Additional Information Ketoconazole 2 % External Shampoo (Nizoral) APPLY TO SCALP AND EYEBROWS DAILY- LATHER, WAIT 5 MINUTES, THEN RINSE 120 mL 1 10/25/2023 Suspended Additional Information Metoprolol Succinate ER 25 MG Oral Tablet Extended Release 24 Hour (toPROL XL) Take 0.5 Tablets by mouth every night at bedtime. 15 Tablet 5 10/29/2023 Suspended Additional Information Cephalexin 500 MG Oral CapsuleIndications: Acute cystitis with hematuria Take 1 Capsule by mouth in the morning and 1 Capsule at noon and 1 Capsule in the evening and 1 Capsule before bedtime. Do all this for 7 days. 28 Capsule 11/04/2023 4 Suspended Additional Information documented as of this encounter (statuses as of 11/08/2023) Active Problems Problem Noted Date Diagnosed Date [...] as of this encounter (statuses as of 11/08/2023) Resolved Problems Problem Noted Date Diagnosed Date [...] as of this encounter (statuses as of 11/08/2023) Immunizations Name Administration Dates Next Due COVID-19 [...] do you have serious difficulty h earing? No-BISHOP PAIUTE 11/07/2023 Are you blind or do you [...] this encounter Progress Notes * Jessi Collier [facility] - 11/08/2023 7:56 AM EDT Patient has been admitted to [facility] from ER due to persistent/recurrent UTI. Has been started on Rocephin and Flomax increased. Will check for discharge tomorrow. Jessi Collier, PharmD, [facility] Clinical Pharmacist 11/08/2023, 8:01 AM documented in this encounter Plan of Treatment Upcoming Encounters Date Type Department Care Team (Late st Contact Info) Description 11/09/2023 5:50 PM EDT Anticoagulation Pharmacy, [place] [address] [place] [address] Pharmacist2, [facility] [place] [address] [place] [address] 11/14/2023 1:30 PM EDT Office Visit Cardiology, [place] [address] [place] [address] [facility] [address] [place] [address] 12/11/2023 2:00 PM EDT Office Visit Cardiology, [place] [address] [place] [address] Stefani Mooney CRNP [address] [place] [address] 01/21/2024 2:00 PM EDT Office Visit Endocrinology [address] [place] [address] Sakina Jones MD [address] [place] [facility] [place] [address] 01/25/2024 3:30 PM EDT Office Visit [facility] Surgery [facility] [address] [facility] [address] [place] [address] Laney Hogue MD 200 [place] [address] 02/25/2024 9:20 AM EDT Office Visit [facility] [address] [place] [id number] Kaiser Amanda MD [address] [place] [address] 10/21/2024 9:15 AM EDT Appointment Radiology, [facility] 400 [place] [address] 10/29/2024 9:45 AM EDT Office Visit Urology [place] [address] [place] [address] Bert Boogie Jr., MD [address] [place] [address] Scheduled Procedures Name Priority Associated Diagnoses Date/Ti [...] 01/25/2025 01/25/2023, 0901/2021, 12/10/2018 Colonoscopy 03/16/2025 03/16/2022, 110 07/2021, 08/06/2009 [...] D LEVEL ONCE IN A LIFETIME-USE SMARTSET# [id number] Completed 07/26/2023, 02/26/2023, 01/23/2023, Additional history exists [...] this encounter Medical Devices Implanted Type 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 Worker Device Identifier Shelf Expiration Date Model / Serial / Lot Cement Bone Simplex Hv & G - [id number] Implanted:Qty: 2 on 09/02/2020 by Gianni Hubbard MD at OR [facility] Right: Hip LUDY : ORTHOPAEDICS 08/11/2021 6195-1-010 / / [id number] Spacer Ring Aclde Distal Lg 14 - [id number] Implanted:Qty: 1 on 09/02/2020 by Gianni Hubbard MD at OR [facility] Right: Hip LUDY : ORTHOPAEDICS 11/25/2024 [id number] / / Accolade C Cs 127 6 37/158 - [id number] Implanted:Qty: 1 on 09/02/2020 by Gianni Hubbard MD at OR [facility] Right: Hip LUDY : ORTHOPAEDICS 05/29/2023 [id number] / / [id number] Hip Cocr Lfit Head V40 28/+4 - [id number] Implanted:Qty: 1 on 09/02/2020 by Gianni Hubbard MD at OR [facility] Right: Hip LUDY : ORTHOPAEDICS 11/15/2024 6260-9-228 / / [id number] Hip Head Bipol Uhr Uni 28x52 - [id number] Implanted:Qty: 1 on 09/02/2020 by Gianni Hubbard MD at OR [facility] Right: Hip LUDY : ORTHOPAEDICS 11/25/2024 UH1-52-28 / / [id number] Lens Intraoc 17.5 - [id number] - [id number] Implanted:Qty: 1 on 03/23/2022 by Rad Morgan MD at OR [facility] Left: Eye BAUSCH & LOMB 10/11/2026 [id number] / [id number] / [id number] Lens Intraoc 18.0 - [id number] - [id number] Implanted:Qty: 1 on 03/30/2022 by Rad Morgan MD at OR [facility] Right: Eye BAUSCH & LOMB 01/11/2027 [id number] / [id number] / [id number] documented as of this encounter Visit Diagnoses Diagnosis History of pulmonary embolism- Primary Personal history of pulmonary embolism History of DVT (deep vein thrombosis) Personal history of venous thrombosis and embolism documented in this encounter Advance Directives * Full Code (Latest Code Status on File) Date Activated Date Inactivated Comments 11/07/2023 10:10 PM This order re flects the patients [...] Power of Attor jus? No Care Teams Computer Support Specialist Relationship Specialty Start Date End Date Kaiser Amanda MD [address] [place] [phone] PCP - General Family Medicine 04/11/21 documented as of this encounter
--- OUTSIDE RECORDS SUMMARY | 2024-01-29 20:40 | External Medical Summary ---
Author Name Unknown Address Unknown Organization K1F:LAB[facility]ATORY [facility] - [address] [place] [address] Laboratory Report Ordering Provider Test Date Status ZACHERY BENNETT 11/07/2023 19:39:00 Final Observation Date Value Abnormality Reference (Units ) Status Lactic Acid 11/07/2023 19:39:00 1.8 0.4-2.0 (mmol/L) Final Performing Location LABORATORY [facility] - [address] [place] [address]
--- OUTSIDE RECORDS SUMMARY | 2024-01-29 20:40 | External Medical Summary ---
Author Name Unknown Address Unknown Organization K1F:LABORATORY [facility] - [address] [place], [place] [address] [address] Laboratory Report Ordering Provider Test Date Status ZACHERY BENNETT 11/07/2023 16:01:32 Final Observation Date Value Abnormality Reference (Units ) Status Bacteria identified in Specimen by Culture 11/07/2023 16:01:32 No growth Final Test: Culture, Blood (Site 2 )
Specimen Source: Blood, Venous
Specimen Type: Blood
Specimen Date: 11/07/2023 160
Result Date: 11/12/20231700
Result Status: Final result
Resulting Lab: LABORATORY [facility]
[address] [place] [address]
[place] [address]

CULTURE

No growth

null Performing Location LABORATORY [address] [place] [address]
--- OUTSIDE RECORDS SUMMARY | 2024-01-29 20:40 | External Medical Summary ---
Author Name Unknown Address Unknown Organization K1F:LABORATORY [facility] - [address] [place] [address] Laboratory Report Ordering Provider Test Date Status VALERIYADONIS PUENTES 11/07/2023 14:20:00 Final Observation Date Value Abnormality Reference (Units ) Status SYNC LEUKOCYTES IN BLOOD BY AUTOMATED COUNT 11/07/2023 14:20:00 7.67 4.00-10.80 (K/uL) Final Segs 11/07/2023 14:20:00 61.1 40.0-75.0 (%) Final Lymphs % 11/07/2023 14:20:00 26.3 18.0-42.0 (%) Final Monos 11/07/2023 14:20:00 7.7 1.0-11.0 (%) Final Eosinophils 11/07/2023 14:20:00 3.8 0.0-6.0 (%) Final Basos 11/07/2023 14:20:00 0.7 0.0-2.0 (%) Final Immature Granulocyte, Percent 11/07/2023 14:20:00 0.4 0.0-2.0 (%) Final Absolute Segs 11/07/2023 14:20:00 4.69 1.80-7.70 (K/uL) Final Lymphs, absolute 11/07/2023 14:20:00 2.02 1.00-4.80 (K/ul) Final Monos, Abs 11/07/2023 14:20:00 0.59 0.00-1.10 (K/uL) Final Eos, Abs 11/07/2023 14:20:00 0.29 0.00-0.70 (K/uL) Final Basos, Abs 11/07/2023 14:20:00 0.05 0.00-0.20 (K/uL) Final Immature Granulocytes, Number 11/07/2023 14:20:00 0.03 0.00-0.20 (K/uL) Final Performing Location LABORATORY [facility] - [address] [facility] [address] [place] [address]
--- OUTSIDE RECORDS SUMMARY | 2024-01-29 20:40 | External Medical Summary ---
Author Name Unknown Address Unknown Organization K01:LABORATORY [facility] - [address] [place] [address] [place] [address] Laboratory Report Ordering Provider Test Date Status KALANI,DELMY 11/04/2023 12:22:10 Final Observation Date Value Abnormality Reference (Units ) Status Bacteria identified in Specimen by Culture 11/04/2023 12:22:10 [id number]^KLEBSIELL A PNEUMONIAE Abnormal Final 10,000 to 100,000 colonies/m L Klebsiella pneumoniae Performing Location LABORATORY [facility] - [address] [facility] [place] [address] Ordering Provider Test Date Status KALANIDELMY 11/04/2023 12:22:10 Final Observation Date Value Abnormality Reference (Units ) Status Ampicillin + Sulbactam 11/04/2023 12:22:10 8 Susceptible Final Cefazolin 11/04/2023 12:22:10 <=4 Susceptible Final Cefepime susceptibility 11/04/2023 12:22:10 <=1 Susceptible Final Ceftriaxone suceptibility 11/04/2023 12:22:10 <=1 Susceptible Final Ciprofloxacin 11/04/2023 12:22:10 <=0.25 Susceptible Final Due to serious side effects, the FDA has advised against using Ciprofloxacin to treat uncomplicated UTIs and respiratory tract infections unless there are no alternative treatment options. Gentamicin susceptibility 11/04/2023 12:22:10 <=1 Susc eptible Final Levofloxacin susceptibility 11/04/2023 12:22:10 1 In termediate Final Due to serious side effects, the FDA has advised against using Levofloxacin to treat uncomplicated UTIs and respiratory tract infections unless there are no alternative treatment options. Nitrofurantoin susceptibility 11/04/2023 12:22:10 128 Resistant Final Piperacillin + Tazobactamsusceptibility 11/04/2023 12:22:10 8 Susceptible Final TMP-SMZ susceptibility 11/04/2023 12:22:10 <=20 Suscept ible Final Test: Culture, Urine, Quanti tative
Specimen Source: Urine, Clean Catch
Specimen Type: Urine
Specimen Date: 11/04/2023 1222
Result Date: 11/06/2023 1356
Result Status: Final result
Abnormal: Yes
Resulting Lab: LABORATORY [facility]
[address]
[place] [address]

CULTURE

10,000 to 100,000 colonies/mL Klebsiella pneumoniae (Abnormal)

SUSCEPTIBILITY

Klebsiella
pneumoniae
METHOD MICROBROTH DILUTIONS

AMPICILLIN/SULBACTAM 8 Susceptible
CEFAZOLIN <=4 Susceptible
CEFEPIME <=1 Susceptible
CEFTRIAXONE <=1 Susceptible
CIPROFLOXACIN <=0.25 Susceptible
[1]
GENTAMICIN <=1 Susceptible
LEVOFLOXACIN 1 Intermediate
[2]
NITROFURANTOIN 128 Resistant
PIPERACILLIN TAZOBACTAM 8 Susceptible
TRIMETH/SULFAMETHOXAZOLE <=20 Susceptible

[1] Due to serious side effects, the FDA has advised against using
Ciprofloxacin to treat uncomplicated UTIs and respiratory tract infections
unless there are no alternative treatment options.

[2] Due to serious side effects, the FDA has advised against using
Levofloxacin to treat uncomplicated UTIs and respiratory tract infections
unless there are no alternative treatment options.

null Performing Location LABORATORY [facility] - [address] [place] [address]
--- OUTSIDE RECORDS SUMMARY | 2024-01-29 20:40 | External Medical Summary ---
Author Name Unknown Address Unknown Organization K1F:[facility] - [address] [place] [address] Laboratory Report Ordering Provider Test Date Status ADONIS CROOKS 11/07/2023 18:07:03 Final Observation Date Value Abnormality Reference (Units ) Status Color of Urine by Auto 11/07/2023 18:07:03 Yellow Light Yellow, Yellow, Dark Yellow Final Clarity, Urine 11/07/2023 18:07:03 Clear Clear Final Glucose [Mass/volume] in Urine by Automated test strip 11/07/2023 18:07:03 Negative Negative (mg/dL) Final Bilirubin.total [Presence] in Urine by Automated test strip 11/07/2023 18:07:03 Negative Negative Final Ketones [Mass/volume] in Urine by Automated test strip 11/07/2023 18:07:03 Negative Negative (mg/dL) Final Specific gravity, Urine 11/07/2023 18:07:03 1.009 1.003-1.030 Final Hemoglobin [Presence] in Urine by Automated test strip 11/07/2023 18:07:03 Negative Negative Final pH, Urine 11/07/2023 18:07:03 5.5 5.0-7.5 (Units) Final Protein [Mass/volume] in Urine by Automated test strip 11/07/2023 18:07:03 Negative Negative (mg/dL) Final Urobilinogen [Mass/volume] in Urine by Automated test strip 11/07/2023 18:07:03 0.2 0.2, 1.0 (mg/dL) Final Nitrite [Presence] in Urine by Automated test strip 11/07/2023 18:07:03 Negative Negative Final Leukocyte esterase [Presence] in Urine by Automated test strip 11/07/2023 18:07:03 Moderate Abnormal Negative Final Performing Location [facility] - [address] [place] [address]
--- OUTSIDE RECORDS SUMMARY | 2024-01-29 20:40 | External Medical Summary ---
Author Name Unknown Address Unknown Organization K1F:[facility] - [address] [place] [address] Laboratory Report Ordering Provider Test Date Status ADONIS CROOKS 11/07/2023 14:20:00 Final Observation Date Value Abnormality Reference (Units ) Status Lactic Acid 11/07/2023 14:20:00 4.3 Above upper panic limits 0.4-2.0 (mmol/L) Final Performing Location [facility] - [address] [place] [address]
--- OUTSIDE RECORDS SUMMARY | 2024-01-29 20:40 | External Medical Summary ---
Author Name Unknown Address Unknown Organization K01:[facility] [place] [address] [place] [facility] Laboratory Report Ordering Provider Test Date Status LALIT BENNETTKATE 11/07/2023 18:07:03 Final Observation Date Value Abnormality Reference (Units) Status Bacteria identified in Specimen by Culture 11/07/2023 18:07:03 No significant growth Final Test: Culture, Urine, Quant itative
Specimen Source: Urine, Clean Catch
Specimen Type: Urine
Specimen Date: 11/07/20231806
Result Date: 11/09/2023 0806
Result Status: Final result
Resulting Lab: [facility]
[address]
[place] [address]

CULTURE

No significant growth

null Performing Location [facility] - [address] [place] [address]
--- OUTSIDE RECORDS SUMMARY | 2024-01-29 20:40 | External Medical Summary | Summary of Care ---
Author Name Unknown Organization [facility] Address [address] [facility] [place] [address] Phone [phone] Care Team Providers Care Pitch Filler Name Role Phone Kaiser Amanda MD Primary Care Provider [phone] Reason for Visit * Reason Onset Date Comments Test Results 11/07/2023 Encounter Details Date Type Department Care Team (Late st Contact Info) Description 11/07/2023 Telephone [facility] [place] [address] [place] [id number] Kelli Webb PA-C [address] [place] [address] Test Results Allergies Active Allergy Reactions Criticality [...] Generalized weakness 12/04/2018 024 Severe malnutrition 12/01/2018 07/25/20 19 Acute venous embolism and th rombosis [...] encounter Miscellaneous Notes * Telephone Encounter - Kelli Webb PA-C - 11/07/2023 12:53 PM EDT Called and discussed positive urine culture-Klebsiella pneumoniae, he is on Keflex which is sensitive. Pt is still feeling unwell and still has symptoms. I recommended going to the ER at this time asit is possible the infection has started to spread to his blood stream. He should be having improvement of his symptoms at this time if simple UTI. Pt and are agreeable. documented in this encounter Plan of Treatment Upcoming Encounters Date Type Department Care Team (Late st Contact Info) Description 11/07/2023 2:10 PM EDT Anticoagulation Pharmacy, [address] [place] [address] Pharmacist1, [facility] [address] [place] [address] 11/07/2023 2:30 PM EDT Office Visit Neurology, [place] [address] [address] [place] [address] Ruth Lobo PA-C [facility] [place] [address] 11/08/2023 8:15 AM EDT Appointment Radiology, [address] [address] 11/14/2023 1:30 PM EDT Office Visit Cardiology, [place] [address] [place] [address] [facility] [address] [place] [address] 12/11/2023 2:00 PM EDT Office Visit Cardiology, [place] [address] [place] [address] Stefani Mooney CRNP [address] [place] [address] 01/21/2024 2:00 PM EDT Office Visit Endocrinology [address] [place] [phone] Sakina Jones MD [address] [place] [address] 01/25/2024 3:30 PM EDT Office Visit [facility] [address] [place] [address] Laney Hogue MD [address] [place] [address] 02/25/2024 9:20 AM EDT [facility] [address] [facility] [place] [address] Kaiser Amanda MD [address] [facility] [place] [address] 10/21/2024 9:15 AM EDT Appointment Radiology, [address] [address] 10/29/2024 9:45 AM EDT Office Visit Urology Aleida Rinaldi [place] [address] [place] [address] Bert Boogie Jr., MD [address] [place] [address] Scheduled Procedures Name Priority Associated Diagnoses Date/Ti [...] 07/07/2021, Additional history exists GFR 10/21/2024 10/22/2023, 0501/2024, 10/09/2023, Additional history exists DXA Scan 01/25/2025 [...] D LEVEL ONCE IN A LIFETIME-USE SMARTSET# [id number] Completed 07/26/2023, 02/26/2023, 01/23/2023, Additional history exists [...] this encounter Medical Devices Implanted 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 Device 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 Shelf Expiration Date Model / Serial / Lot Cement Bone Simplex Hv [employer] G - [id number] Implanted:Qty: 2 on 09/02/2020 by Gianni Hubbard MD at OR [facility] Right: Hip LUDY : ORTH[employer] 08/11/2021 [id number] / / [id number] Spacer Ring Aclde Distal Lg 14 - [id number] Implanted:Qty: 1 on 09/02/2020 by Gianni Hubbard MD at OR [facility] Right: Hip LUDY : ORTHOPAEDICS 11/25/2024 [id number] / / Accolade C Cs 127 6 37/158 - [id number] Implanted:Qty: 1 on 09/02/2020 by Gianni Hubbard MD at OR [facility] Right: Hip [employer]UD[employer] : ORTHOPAEDICS 05/29/2023 [id number] / / [id number] Hip Cocr Lfit Head V40 28/+4 - [id number] Implanted:Qty: 1 on 09/02/2020 by Gianni Hubbard MD at OR [facility] Right: Hip [employer]UD[employer] : ORTHOPAEDICS 11/15/2024 [id number] / / [id number] Hip Head Bipol Uhr Uni 28x52 - [id number] Implanted:Qty: 1 on 09/02/2020 by Gianni Hubbard MD at OR [facility] Right: Hip LUDY : ORTHOPAEDICS 11/25/2024 [id number] / / [id number] Lens Intraoc 17.5 - [id number] - [id number] Implanted:Qty: 1 on 03/23/2022 by Rad Morgan MD at OR [facility] Left: Eye [employer] 10/11/2026 [id number] / [id number] / [id number] Lens Intraoc 18.0 - [id number] - [id number] Implanted:Qty: 1 on 03/30/2022 by Rad Morgan MD at OR [facility] Right: Eye [employer]CH [employer]OMB 01/11/2027 [id number] / [id number] / [id number] documented as of this encounter Advance Directives [...] Power of Attor jus? No Care Teams Pitch Filler Relationship Specialty Start Date End Date Kaiser Amanda MD [address] [place] [address] PCP - General Family Medicine 04/11/21 documented as of this encounter
--- OUTSIDE RECORDS SUMMARY | 2024-01-29 20:40 | External Medical Summary ---
Author Name Unknown Address Unknown Organization : Laboratory Report Ordering Provider Test Date Status LETI NASSAR 11/08/2023 07:41:42 Final Observation Date Value Abnormality Reference (Units ) Status Glucose Point of Care 11/08/2023 07:41:42 84 70-120 (mg/dL) Final Performing Location
--- OUTSIDE RECORDS SUMMARY | 2024-01-29 20:40 | External Medical Summary ---
Author Name Unknown Address Unknown Organization K1F:[facility] - [address] [place] [address] Laboratory Report Ordering Provider Test Date Status ZACHERY BENNETT 11/07/2023 19:39:00 Final Please submit paper requisit ion from unit printer with sample and fill in the appropriate information:
null Observation Date Value Abnormality Reference (Units ) Status Body temperature 11/07/2023 19:39:00 37.0 (C) Final pH of Venous blood 11/07/2023 19:39:00 7.335 7.320-7.430 (units) Final Carbon dioxide [Partial pressure] in Venous blood 11/07/2023 19:39:00 47.9 40.0-60.0 (mmHg) Final Oxygen [Partial pressure] in Venous blood 11/07/2023 19:39:00 27.8 25.0-50.0 (mmHg) Final Base excess, Capillary 11/07/2023 19:39:00 -0.8 -2.0-2.0 (mmol/L) Final Hemoglobin [Mass/volume] in Blood by Oximetry 11/07/2023 19:39:00 12.0 Below low normal 14.0-16.8 (g/dL) Final Oxyhemoglobin, Venous (FO2HB) 11/07/2023 19:39:00 38.0 Below low normal 40.0-85.0 (% total Hgb) Final Carboxyhemoglobin 11/07/2023 19:39:00 0.7 <=1.5 (% total Hgb) Final Smokers: 0-9.0 % Methemoglobin 11/07/2023 19:39:00 0.4 <= 1.5 (% total Hgb) Final Deoxyhemoglobin/Hemoglo bin.total in Venous blood 11/07/2023 19:39:00 60.9 (% total Hgb) Final Oxygen content in Venous blood 11/07/2023 19:39:00 6.4 Below low normal 7.0-18.0 (%vol) F inal Bicarbonate, Venous, POC (i-STAT) 11/07/2023 19:39:00 24.8 23.0-31.0 (mmol/L) Final Performing Location LAB[facility]ORY [facility] - [address] [place] [address] [address] [place] [address]
--- OUTSIDE RECORDS SUMMARY | 2024-01-29 20:40 | External Medical Summary ---
Author Name Unknown Address Unknown Organization : Laboratory Report Ordering Provider Test Date Status LETI NASSAR 11/07/2023 22:59:33 Final Observation Date Value Abnormality Reference (Units ) Status Glucose Point of Care 11/07/2023 22:59:33 92 70-120 (mg/dL) Final Performing Location
--- OUTSIDE RECORDS SUMMARY | 2024-01-29 20:41 | External Medical Summary ---
Author Name Unknown Address Unknown Organization K01:[facility] - [address] [facility] [place] [address] Laboratory Report Ordering Provider Test Date Status IRINA VALVERDE 10/29/2023 15:24:32 Final Observation Date Value Abnormality Reference (Units ) Status Color of Urine by Auto 10/29/2023 15:24:32 Yellow Colorless, Light Yellow, Yellow, Dark Yellow Final Clarity, Urine 10/29/2023 15:24:32 Slightly Cloudy Abnormal Clear Final Glucose [Mass/volume] in Urine by Automated test strip 10/29/2023 15:24:32 Negative Negative (mg/dL) Final Bilirubin.total [Presence] in Urine by Automated test strip 10/29/2023 15:24:32 Negative Negative Final Ketones [Mass/volume] in Urine by Automated test strip 10/29/2023 15:24:32 Trace Abnormal Negative (mg/dL) Final Specific gravity, Urine 10/29/2023 15:24:32 1.021 1.003-1.030 Final Hemoglobin [Presence] in Urine by Automated test strip 10/29/2023 15:24:32 Small Abnormal Negative Final pH, Urine 10/29/2023 15:24:32 6.0 5.0-7.5 (Units) Final Protein [Mass/volume] in Urine by Automated test strip 10/29/2023 15:24:32 30 Abnormal Negative (mg/dL) Final Urobilinogen [Mass/volume] in Urine by Automated test strip 10/29/2023 15:24:32 Normal Normal (mg/dL) Final Nitrite [Presence] in Urine by Automated test strip 10/29/2023 15:24:32 Negative Negative Final Leukocyte esterase [Presence] in Urine by Automated test strip 10/29/2023 15:24:32 Large Abnormal Negative Final RBC, Urine 10/29/2023 15:24:32 10-19 Abnormal 0-2 (/HPF) Final WBC, Urine 10/29/2023 15:24:32 50+ Abnormal 0-2 (/HPF) Final Bacteria [#/area] in Urine sediment by Microscopy high power field 10/29/2023 15:24:32 51-100 Abnormal 0-25 (/HPF) Final Performing Location [facility]ORY [facility] - [facility] [address] [facility] [address]
--- OUTSIDE RECORDS SUMMARY | 2024-01-29 20:41 | External Medical Summary | Summary of Care ---
Author Name Unknown Organization [facility] Address [address] [facility] [place] [address] Phone [phone] Care Team Providers Care Cementer [employer] Well Name Role Phone Kaiser Amanda MD Primary Care Provider [phone] Reason for Visit * Reason Comments Hospital Follow-Up Encounter Details Date Type Department Care Team (Late st Contact Info) Description 10/17/2023 11:00 AM EDT [facility] [place] [address] Kaiser Amanda MD [address] [facility] [place] [address] Encounter for examination following treatment at hospital*; Type 2 diabetes mellitus with hemoglobin A1c goal of less than 7.5% (HCC); Diarrhea of presumed infectious origin; Dysuria; Nausea and vomiting, unspecified vomiting type Allergies Active Allergy Reactions Criticality Noted Date Comments Cat Dander Itching 07/14/2016 documented as of this encounter (statuses as of 10/29/2023) Medications Medication Sig Dispensed Refills Start Date End Date Status OneTouch Ultra 2 w/Device KitIndications:Type 2 diabetes mellitus with hemoglobin A1c goal of less than 7.5% (HCC) Testing blood sugars twice daily Dx: E11.9 1 Kit 11 06/06/2021 Active OneTouch Delica Lancets 30GIndications:Type 2 diabetes mellitus with hemoglobin A1c goal of less than 7.5% (HCC),Type 2 diabetes mellitus with polyneuropathy ([facility]) Check BS once daily E11.9 [...] Active Cinacalcet HCl 30 MG Oral Tablet (Sensipar)Samariao ns:Hypercalcemia Take 1 tablet by mouth once [...] A1c goal of less than 7.5% ([facility]) TAKE 1 TABLET BY MOUTH DAILY. TAKE 30 MINUTES BEFORE A MEAL 90 Tablet 3 12/26/2022 Active DULoxetine HCl 60 MG Oral Capsule Delayed Release Particles (Cymbalta)Samariao ns:Depression with anxiety Take 1 Capsule by mouth in the morning. 90 Capsule 3 12/26/2022 Active Hydrocortisone 2.5 % External Cream Apply to eyebrows twice daily for 3-5 days at a time as needed for flares 60 g 2 01/19/2023 Active OneTouch Verio In Vitro Strip (Glucose Blood)Indications:T ype 2 diabetes mellitus with polyneuropathy ([facility]),Type 2 diabetes mellitus with hemoglobin A1c goal of less than 7.5% ([facility]) USE STRIP TO CHECK GLUCOSE [...] 10/07/2023 Nitroglycerin 0.4 MG Sublingual Tablet Sublingual (Nitrostat)Samaria ons:Stable angina ([facility]) Place 1 Tablet under the [...] WAIT 5 MINUTES, THEN RINSE 120 mL 07/06/2023 4 Discontinu ed(Refill) Acetaminophen 325 MG Oral Tablet (Tylenol) Take 3 Tablets by mouth every 6 hours. As needed 10/11/2023 4 Discontinu ed(Medicat ion/Dose Changed) Tamsulosin HCl 0.4 MG Oral Capsule (Flomax) Take 1 Capsule by mouth at bedtime. 30 Capsule 10/11/2023 4 Discontinu ed(Refill) documented as of this encounter (statuses as of 10/29/2023) Active Problems Problem Noted Date Diagnosed Date [...] as of this encounter (statuses as of 10/29/2023) Resolved Problems Problem Noted Date Diagnosed Date [...] as of this encounter (statuses as of 10/29/2023) Immunizations Name Administration Dates Next Due COVID-19 [...] the money to buy more. Never true 10/15/19 Within the past 12 months, t he food you bought just didn't last and you didn't have money to get more. Never true 10/15/2023 Sex and Gender Information Value Date Recorded Sex Assigned at Male 12/05/2018 2:23 PM EDT Gender Identity Male 12/05/2018 2:23 PM EDT Sexual Orientation Straight 12/05/2018 2: 23 PM EDT Job Start Date Occupation Industry Not on file Not on file Not on file documented as of this encounter Last Filed Vital Signs Vital Sign Reading Time Taken Comments Blood Pressure 124/84 10/17/2023 11:05 AM EDT Pulse 101 10/17/2023 11:05 AM EDT Temperature 36.4 C (97.5 F) 10/17/2023 11:05 AM E DT Respiratory Rate 16 10/17/2023 11:05 AM EDT Oxygen Saturation 98% 10/17/2023 11:05 AM EDT Inhaled Oxygen Concentration - - Weight 71.7 kg (158 lb) 10/17/2023 11:05 AM EDT Height 175.3 cm (5' 9") 10/17/2023 11:05 AM EDT Body Mass Index 23.33 10/17/2023 11:05 AM EDT documented in this encounter Functional [...] this encounter Patient Instructions * Patient Instructions* Kaiser Amanda MD - 10/17/2023 11:53 AM EDT Pause glipizide if any low sugars occur. Start fiber powder supplement to bulk stools. Gradually increase hydration. documented in this encounter Progress Notes * Kaiser Amanda MD - 10/17/2023 11:28 AM EDT Images from the original note were not included. History of Present Illness Lewis Alarcon is a 72 year old male that presents for Hospital Follow-Up Back to [facility] 10/05-10/10 for diarrhea, weakness. Med list reviewed. Pain in groin and abdomen. This started weeks ago, before [place] was in [place] Diarrhea. Started day after hospital. Eating anything goes right through him. Goes to bathroom about half hour after a meal. Sunday night was up all night, non-stop diarrhea. Diarrhea is runny, butdoes not smell any different than anything else. Did notice some buring in hs urination, but had cath in for 2 weeks, removed on 09/20 at urology. Last urine culture normal. Strength was doing well, but now that he's feeling sick, not good. Sylvie Constantino had him up walking recently, doing well. Stomach is biggest issue. Not eating. Is only doing crackers, niesha sumit, but then has diarrhea. Med changes in hospital- bp meds stopped, which had been started due to newly reduced EF, metoprolol reduced, finasteride stopped (9% risk of orthostatic hypotension), and tamsulosin switched to PM, however he is still taking in AM. Midodrine started. Reporting he is having dizziness. Only with position changes though. Physical Exam Vitals: 10/17/23 1105 Temp: 36.4 C (97.5 F) Pulse: 101 Resp: 16 SpO2: 98% BP: 124/84 BMI: 23.32 Physical Exam Constitutional: Appearance: He is normal weight. He is not ill-appearing. Comments: Appearing much older than stated age Cardiovascular: Rate and Rhythm: Regular rhythm. Tachycardia present. Heart sounds: No murmur heard. Pulmonary: Effort: No respiratory distress. Breath sounds: No wheezing. Abdominal: General: There is no distension. Musculoskeletal: Right lower leg: No edema. Left lower leg: No edema. Skin: Findings: No rash. Neurological: Mental Status: He is oriented to person, place, and time. Mental status is at baseline. Cranial Nerves: No cranial nerve deficit. Sensory: No sensory deficit. Motor: Weakness present. Coordination: Coordination normal. Gait: Gait abnormal (wheelchair). Deep Tendon Reflexes: Reflexes normal. Comments: Flat affect, stone-faced Psychiatric: Mood and Affect: Mood normal. Comments: Flat affect I have reviewed the following results: phos, mg, ld, ig, lft, ggtp, cbc, c diff, microalbumin, Assessment and Plan Encounter for examination following treatment at hospital Diarrhea improving, but has not eaten much. Plan per below. Advised very good hydration, use of wheelchair when not assisted by PT, Start fiber powder supplement to bulk stools. Gradually increase hydration. Type 2 diabetes mellitus with hemoglobin A1c goal of less than 7.5% ([facility]) Pause glipizide if any low sugars occur. - ALBUMIN / CREATININE RATIO, URINE; Future Diarrhea of presumed infectious origin - CLOSTRIDIUM DIFFICILE, PCR; Future - GASTROINTESTINAL PATHOGEN PANEL, STOOL; Future Dysuria - CULTURE, URINE, QUANTITATIVE Nausea and vomiting, unspecified vomiting type - Ondansetron 4 MG Oral Tablet Disintegrating (Zofran); Place 1 Tablet on tongue every 8 hours as needed for Nausea. dissolve on tongue. Wrap-Up Time: I spent a total of 30-39 minutes (exact time 33 mins) on the date of service in preparation, delivery, and documentation of the care provided to Lewis Alarcon excluding any time spent in the performance of separately billed services. * Torie Hall, MED ASSIST - 10/17/2023 11:01 AM EDT Chief Complaint Patient presents with Hospital Follow-Up Pt here for hospital follow up of hypotension. Pt was discharged on 10/11/23 and is complaining of pain in his groin and abdomen. Pt states everything goes through him so he is not eating. Urine albumin/creatinine ratio ordered today. Provider aware. documented in this encounter Plan of Treatment Upcoming Encounters Date Type Department Care Team (Late st Contact Info) Description 10/29/2023 12:45 PM EDT Appointment Radiology, [facility] [address] [place] [address] 10/29/2023 2:30 PM EDT Office Visit Cardiology, [place] [address] [place] [address] [facility] Cardiology [address] [place] [address] 10/30/2023 4:30 PM EDT Home Visit [facility] Integration [address] [place] [address] Jess Nevarez [facility] [place] [place] [address] [place] [address] 11/07/2023 2:10 PM EDT Anticoagulation Pharmacy, [address] [address] Pharmacist1, [facility] [address] [place] [address] 11/07/2023 2:30 PM EDT Office Visit Neurology, [place] [address] [place] [address] Ruth Lobo PA-C [address] [place] [address] 01/21/2024 2:00 PM EDT Office Visit Endocrinology [address] [place] [address] Sakina Jones MD [address] [place] [address] 01/25/2024 3:30 PM EDT Office Visit [facility] [address] [place] [address] Laney Hogue MD [address] [place] [address] 02/25/2024 9:20 AM EDT [facility] Visit [facility] [address] [facility] [place] [phone] Kaiser Amanda MD [facility] [place] [address] 10/21/2024 9:15 AM EDT Appointment Radiology, [facility] [address] [facility] [place] [address] 10/29/2024 9:45 AM EDT Office Visit Urology [place] [address] [facility] [facility] [place] [address] [place] [address] Bert Boogie Jr., MD [address] [facility] [place] [address] [place] [address] Scheduled Orders Name Type Priority Associated Diagnoses Orde r Schedule GASTROINTESTINAL PATHOGEN PANEL, STOOL Lab Routine Diarrhea of presumed infectious origin Expected: 10/17/2023 (Approximate), Expires: 10/16/2024 Scheduled Procedures Name Priority Associated Diagnoses Date/Ti [...] D LEVEL ONCE IN A LIFETIME-USE SMARTSET# [id number] Completed 07/26/2023, 02/26/2023, 01/23/2023, Additional history exists [...] this encounter Medical Devices Implanted Type Area Host/Hostess Device Identifier Shelf Expiration Date Model / Serial / Lot Cement Bone Simplex Hv & G - [id number] Implanted:Qty: 2 on 09/02/2020 by Gianni Hubbard MD at OR [facility] Right: Hip LUDY : ORTHOPAEDICS 08/11/2021 6195-1-010 / / [id number] Spacer Ring Aclde Distal Lg 14 - [id number] Implanted:Qty: 1 on 09/02/2020 by Gianni Hubbard MD at OR [facility] Right: Hip LUDY : ORTHOPAEDICS 11/25/2024 [id number] / / Accolade C Cs 127 6 37/158 - [id number] Implanted:Qty: 1 on 09/02/2020 by Gianni Hubbard MD at OR [facility] Right: Hip LUDY : ORTHOPAEDICS 05/29/2023 [id number] / / [id number] Hip Cocr Lfit Head V40 28/+4 - [id number] Implanted:Qty: 1 on 09/02/2020 by Gianni Hubbard MD at OR [facility] Right: Hip LUDY : ORTHOPAEDICS 11/15/2024 6260-9-228 / / [id number] Hip Head Bipol Uhr Uni 28x52 - [id number] Implanted:Qty: 1 on 09/02/2020 by Gianni Hubbrad MD at OR [facility] Right: Hip LUDY : ORTHOPAEDICS 11/25/2024 [id number] / / [id number] Lens Intraoc 17.5 - [id number] - [id number] Implanted:Qty: 1 on 03/23/2022 by Rad Morgan MD at OR [facility] Left: Eye BAUSCH & LOMB 10/11/2026 [id number] / [id number] / [id number] Lens Intraoc 18.0 - [id number] - [id number] Implanted:Qty: 1 on 03/30/2022 by Rad Morgan MD at OR [facility] Right: Eye BAUSCH & LOMB 01/11/2027 [id number] / [id number] / [id number] documented as of this encounter Procedures Procedure Name Priority Date/Time Associated Diagnosis Comments CULTURE, URINE, QUANTITATIVE Routine 10/18/2023 2:44 PM EDT Dysuria documented in this encounter Results * CLOSTRIDIUM DIFFICILE, PCR (10/19/2023 11:18 AM EDT) Stool Consistency Semi-liquid 10/19/2023 7:47 PM EDT LAB[facility]ORY [facility] Clostridium difficile Result Negative. No C. difficile toxin B gene DNA detected by PCR (Amplified Probe). Negative 10/19/2023 7:47 PM EDT LAB[facility]ORY [facility] Stool Stool specimen / Unknown Non-blood Collection / Unknown 10/19/2023 11:18 AM EDT 10/19/2023 11:18 AM EDT Kaiser Amanda MD LAB MICRO - GENER AL ORDERABLES Performing Organization Address [facility] Co de Phone Number LABORATORY [place] [address] [place] [address] * (ABNORMAL) ALBUMIN / CREATININE RATIO, URINE (10/18/2023 2:46 PM EDT) Albumin, Random Urine 2.34 mg/dL 10/18/2023 10:13 PM EDT LAB[facility]ORY [facility] Creatinine, Random Urine 76 mg/dL 10/18/2023 10:13 PM EDT LAB[facility]ORY [facility] Albumin / Creatinine Ratio, Urine 31(H) <30 mg/g Creat 10/18/2023 10:13 PM EDT LAB[facility]ORY [facility] Urine Urine specimen / Unknown Non-blood Collection / Unknown 10/18/2023 2:46 PM EDT 10/18/2023 2:46 PM EDT Narrative [facility] - 10/18/2023 10:13 PM EDT Normal: <30 mg/g creatinine High: 30-300 mg/g creatinine Very High: >300 mg/g creatinine Nephrotic: >2200 mg/g creatinine Kaiser Amanda MD LAB URINE ORDERAB LES Performing Organization Address [facility] Co de Phone Number LAB[facility]ATORY [place] [address] [place] [address] * CULTURE, URINE, QUANTITATIVE (10/18/2023 2:44 PM EDT) Culture Growth No significant growth 10/19/2023 4:42 PM EDT [facility] Urine Urine specimen obtained by clean catch procedure / Unknown Non-blood Collection / Unknown 10/18/2023 2:44 PM EDT 10/18/2023 2:44 PM EDT Kaiser Amanda MD LAB MICRO - GENER AL ORDERABLES LAB[facility] [address] [place] [address] documented in this encounter Visit Diagnoses Diagnosis Encounter for examination following treatment at hospital- Primary Type 2 diabetes mellitus with hemoglobin A1c goal of less than 7.5% (HCC) Diarrhea of presumed infectious origin Dysuria Nausea and vomiting, unspecified vomiting type documented in this encounter Advance Directives * [...] Power of Attor jus? No Care Teams [employer] Relationship Specialty Start Date End Date Kaiser Amanda MD [address] [place] [address] PCP - General Family Medicine 04/11/21 documented as of this encounter
--- OUTSIDE RECORDS SUMMARY | 2024-01-29 20:41 | External Medical Summary | Summary of Care ---
Author Name Unknown Organization [facility] Address [address] [facility] [place] [address] Phone [phone] Care Team Providers Care Cryptanalyst Name Role Phone Kaiser Amanda MD Primary Care Provider [phone] Reason for Visit * Reason Onset Date Comments Med Request 10/23/2023 Encounter Details Date Type Department Care Team (Late st Contact Info) Description 10/23/2023 Telephone Dermatology [facility] [place] [address] [place] [address] Laney Hogue MD [address] [facility] [address] Med Request Allergies Active Allergy Reactions Criticality Noted Date Comments Cat Dander Itching 07/14/2016 documented as of this encounter (statuses as of 10/25/2023) Medications Medication Sig Dispensed Refills Start Date End Date Status OneTouch Ultra 2 w/Device KitIndications:Type 2 diabetes mellitus with hemoglobin A1c goal of less than 7.5% ([facility]) Testing blood sugars twice daily Dx: E11.9 1 Kit 11 06/06/2021 Active OneTouch Delica Lancets 30GIndications:Type 2 diabetes mellitus with hemoglobin A1c goal of less than 7.5% ([facility]),Type 2 diabetes mellitus with polyneuropathy [...] THEN RINSE 120 mL 1 10/25/2023 Active Ketoconazole 2 % External Shampoo (Nizoral) APPLY TO SCALP AND EYEBROWS DAILY- LATHER, WAIT 5 MINUTES, THEN RINSE 120 mL 07/06/2023 4 Discontinu ed(Refill) documented as of this encounter (statuses as of 10/25/2023) Active Problems Problem Noted Date Diagnosed Date [...] as of this encounter (statuses as of 10/25/2023) Resolved Problems Problem Noted Date Diagnosed Date [...] as of this encounter (statuses as of 10/25/2023) Immunizations Name Administration Dates Next Due COVID-19 mRNA, LNP-s, No Pre serve, 2-Dose Series (N[employer]) 04/23/2021,08/09/2020,07/12/2020 Covid-19, Mrna, Lnp-s, Pf, B ivalent, [...] money to buy more. Never true 10/15/19 24 Within the past 12 months, t [...] Telephone Encounter - Laney Hogue MD - 10/25/2023 12:09 PM EDT Prescription signed. Laney Hogue MD 10/25/2023 12:09 PM * Telephone Encounter - Zahra Medrano LPN - 10/25/2023 11:10 AM EDT Nizoral (shampoo) is pended for review. * Telephone Encounter - Ema Sellers OSA - 10/23/2023 2:44 PM EDT Pt calling asking for a refill of his shampoo to go to the [facility] in [place] documented in this encounter Plan of Treatment Upcoming Encounters Date Type Department Care Team (Late st Contact Info) Description 10/29/2023 12:45 PM EDT Appointment Radiology, [facility] [address] [place] [address] 10/29/2023 2:30 PM EDT Office Visit Cardiology, [place] [address] [place] [address] [facility] Cardiology [address] [place] [address] 10/30/2023 4:30 PM EDT Home Visit Care Coordination and Integration [address] [place] [address] Jess [facility] [address] [place] [address] 11/07/2023 2:10 PM EDT Anticoagulation Pharmacy, [place] [address] [place] [address] Pharmacist1, [facility] [address] [place] [address] 11/07/2023 2:30 PM EDT Office Visit Neurology, [place] [address] [place] [address] Ruth Lobo PA-C [address] [place] [address] 01/21/2024 2:00 PM EDT Office Visit Endocrinology [address] [place] [address] Sakina Jones MD [address] [place] [address] 01/25/2024 3:30 PM EDT Office Visit [facility] [place] [address] [place] [address] Laney Hogue MD [address] [place] [address] 02/25/2024 9:20 AM EDT Office Visit [facility] [address] [facility] [place] [id number] Kaiser Amanda MD [address] [facility] [place] [address] 10/21/2024 9:15 AM EDT Appointment Radiology, [facility] [address] [facility] [place] [address] 10/29/2024 9:45 AM EDT Office Visit Urology [place] [address] [facility] [place] [address] [place] [address] Bert Boogie Jr., MD [address] [place] [address] [facility] [place] [address] Scheduled Procedures Name Priority Associated Diagnoses Date/Ti [...] D LEVEL ONCE IN A LIFETIME-USE SMARTSET# 03494 Completed 07/26/2023, 02/26/2023, 01/23/2023, Additional history exists [...] this encounter Medical Devices Implanted Type Area Infertility Nurse Device Identifier Shelf Expiration Date Model / Serial / Lot Cement Bone Simplex Hv & G - [id number] Implanted:Qty: 2 on 09/02/2020 by Gianni Hubbard MD at OR [facility] Right: Hip LUDY : ORTHOPAEDICS 08/11/2021 6195-1-010 / / [id number] Spacer Ring Aclde Distal Lg 14 - [id number] Implanted:Qty: 1 on 09/02/2020 by Gianni Hubbard MD at OR [facility] Right: Hip LUDY : ORTHOPAEDICS 11/25/2024 [id number] / / Accolade C Cs 127 6 37/158 - [id number] Implanted:Qty: 1 on 09/02/2020 by Gianni Hubbard MD at OR [facility] Right: Hip LUDY : ORTHOPAEDICS 05/29/2023 [id number] / / [id number] Hip Cocr Lfit Head V40 28/+4 - [id number] Implanted:Qty: 1 on 09/02/2020 by Gianni Hubbard MD at OR [facility] Right: Hip LUDY : ORTHOPAEDICS 11/15/2024 6260-9-228 / / [id number] Hip Head Bipol Uhr Uni 28x52 - [id number] Implanted:Qty: 1 on 09/02/2020 by Gianni Hubbard MD at OR [facility] Right: Hip LUDY : ORTHOPAEDICS 11/25/2024 UH1-52-28 / / [id number] Lens Intraoc 17.5 - [id number] - [id number] Implanted:Qty: 1 on 03/23/2022 by Rad Morgan MD at OR [facility] Left: Eye BAUSCH & LOMB 10/11/2026 [id number] / [id number] / [id number] Lens Intraoc 18.0 - [id number] - [id number] Implanted:Qty: 1 on 03/30/2022 by Rad Morgan MD at OR [facility] Right: Eye BAUSCH & LOMB 01/11/2027 [id number] / [id number] / [id number] documented as of this encounter Advance Directives [...] Power of Attor jus? No Care Teams Cryptanalyst Relationship Specialty Start Date End Date Kaiser Amanda MD [address] [place] [address] PCP - General Family Medicine 04/11/21 documented as of this encounter
--- OUTSIDE RECORDS SUMMARY | 2024-01-29 20:41 | External Medical Summary | Summary of Care ---
Author Name Unknown Organization [facility] Address [address] [facility] [place] [address] Phone [phone] Care Team Providers Care Heavy Antiarmor Weapons Infantryman Name Role Phone Kaiser Amanda MD Primary Care Provider [phone] Reason for Visit * Reason Comments Dosage Adjustment In Person (Anticoag Cl inic) Congestive Heart Failure * Evaluate & Treat - Unlimited Visits (Within 10 days (routine)) - Authorized Specialty Diagnoses / Procedures Referred By Fauzia oconnor Referred To Contact Pharmacist / Pharmacy Diagnoses Cardiomyopathy, unspecified type (HCC) Stefani Mooney CRNP [address] [facility] [place] [address] Referral ID Status Reason Start Date Expiration Date Visits Requested Visits Authorized [id number] Authorized Specialty Services Required 10/05/2023 99 99 Encounter Details Date Type Department Care Team (Late st Contact Info) Description 10/29/2023 2:30 PM EDT Office Visit CardiologyRolo [address] [place] [place] [phone] [facility] [phone] Urination pain* Allergies Active Allergy Reactions Criticality Noted Date Comments Cat Dander Itching 07/14/2016 documented as of this encounter (statuses as of 10/29/2023) Medications Medication Sig Dispensed Refills Start Date End Date Status OneTouch Ultra 2 w/Device KitIndications:Type 2 diabetes mellitus with hemoglobin A1c goal of less than 7.5% ([facility]) Testing blood sugars twice daily Dx: E11.9 1 Kit 11 06/06/2021 Active [employer] Delglory Lancets 30GIndications:Type 2 diabetes mellitus with [...] goal of less than 7.5% ([facility]) TAKE 1 TABLET BY MOUTH [...] for flares 60 g 2 01/19/2023 Active [employer] Verio In Vitro Strip (Glucose Blood)Indications: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 90 Tablet 10/11/2023 Active Ondansetron 4 MG Oral Tablet [...] Sign Reading Time Taken Comments Blood Pressure 122/84 10/29/2023 2:49 PM EDT Pulse 107 10/29/2023 2:49 PM EDT Temperature - - Respiratory Rate [...] this encounter Patient Instructions * Patient Instructions* Sandra Cole [facility] - 10/29/2023 2:49 PM EDT Stop at lab for urine test today Test blood sugar if feeling shaky or sweaty and let me know if its less than 70 START Metoprolol ER 12.5 mg at bedtime (1/2 tablet) Wear compression stockings to help with dizziness [phone] option 3 Sandra Lopez D Clinical [facility] Pharmacist Cardiology 10/29/2023,2:59 PM documented in this encounter Progress Notes * Sandra Cole RPh - 10/29/2023 2:21 PM EDT PHARMACY CHRONIC DISEASE MANAGEMENT - HEART FAILURE Lewis Alarcon is an 72 year old patient referred to the Heart Failure [facility] clinic by Stefani Mooney for the following: [...] at home? yes Any dizziness or lightheadedness: dizzy on positional changes Home BP log results: Doesn't remember; home health taking Does patient monitor HR at home? yes Home HR log results: Doesn't remember but thinks its fast Does patient monitor weight at home? Has not checked regularly Any increased edema or shortness of breath: Denies Home weight log results: Has digital scale at home Objective: BP Readings from Last 3 Encounters: 10/17/23 124/84 10/11/23 102/63 10/05/23 121/82 Pulse Readings from Last 3 Encounters: 10/17/23 101 10/11/23 68 10/05/23 100 Wt Readings from Last 3 Encounters: 10/17/23 71.7 kg (158 lb) 10/07/23 74.4 kg (164 lb) 10/05/23 73 kg (161 lb) Lab Results Component Value Date/Time CREATININE - [facility] 1.1 10/22/2023 09:47 AM CREATININE - [facility] 0.9 10/10/2023 03:31 AM CREATININE - [facility] 1.0 10/09/2023 04:11 AM CREATININE - [facility] 1.0 03/30/2020 10:15 [...] Results Component Value Date/Time SODIUM - [facility] 138 10/22/2023 09:47 AM SODIUM - [facility] 142 10/10/2023 03:31 AM SODIUM - [facility] 143 10/09/2023 04:11 AM SODIUM - [facility] 146 03/30/2020 10:15 AM SODIUM - [facility] 140 12/20/2019 11:15 AM SODIUM - [facility] 143 09/29/2019 09:29 AM Lab Results Component Value Date/Time POTASSIUM - [facility] 4.2 10/22/2023 09:47 AM POTASSIUM - [facility] 4.4 10/10/2023 03:31 AM POTASSIUM - [facility] 4.8 10/09/2023 04:11 AM POTASSIUM - [facility] 4.7 03/30/2020 10:15 AM POTASSIUM - [facility] 4.5 12/20/2019 11:15 AM POTASSIUM - [facility] 4.4 09/29/2019 09:29 AM POTASSIUM-OUTSIDE LAB 4.8 08/12/2018 12:00 AM No results found for: "DIG" Lab Results Component Value Date/Time HGB 13.0 (L) 10/22/2023 09:47 AM HGB 10.9 (L) 10/10/2023 03:31 AM HGB 10.7 (L) 10/09/2023 04:11 AM HGB 11.3 (L) 10/06/2023 09:01 PM [...] 40 mg daily Minodrine 5 mg TID Current DM Medications: Metformin 1000 mg IBD Glipizide ER 10 mg daily Eligible for [facility] pharmacy? Agree or Declined? Not eligible Assessment & Plan: HFrEF Stress test ordered but not scheduled Hx frequent falls Hx frequent UTI; avoid SGLT2 Urinalysis today Start Metoprolol Er 12.5 mg QHS Compression stockings Start to take weight and vitals at home Pt presents today in wheelchair with . Last seen by Stefani 10/05/23 in office. Admitted 10/06/23-10/11/23 due to syncopal episode likely related to orthostatics. His Losartan was discontinued. Metoprolol was decreased per chart notes, but wasdiscontinued on discharged med rec. He was started on Minodrine 5 mg TID. He was treated for UTI. Doesn't dizziness has improved since discharged from the hospital. Blood pressure sitting in officeis stable. HR is elevated >100. Reports he has burning when pees. Will obtain urinalysis today. Currently not on abx. Will restart Metoprolol ER 12.5 mg at bedtime. Pt to call with any worsening orthostatic sxs. I have also instructed pt to wear compression stockings. Pt has not yet had stress test, will get that scheduled. 2. Hx PE -Warfarin 3. Hx Subarachnoid Hemorrhage -08/2023 -Keprra for seizure prophylaxis 4. Non hodgkins lymphoma 5. Controlled type 2 diabetes -HbA1c target <7.5% -Seeing endocrinology -Must avoid SGLT2 due to frequent UTI Checking fasting BG in mornings, average around 100. I have asked pt to start checking his BG if hefeels dizzy, sweaty, or shaky to ensure he is now having lows <70 contributing to his sxs. His Glipizide may need reduced. 5. Painful urination Pt reports burning when peeing and frequent urination. Urinalysis ordered. Reports he was treated for UTI during hospitalization in September. Medication changes: START Metoprolol ER 12.5 mg daily Labs Due: Urinalysis today Vaccines Due: not reviewed today Follow up: 2 weeks Sandra Young [facility] Clinical Pharmacist Medication Therapy Disease Management 10/29/2023,2:23 PM documented in this encounter Plan of Treatment Upcoming Encounters Date Type Department Care Team (Late st Contact Info) Description 10/29/2023 3:30 PM EDT Laboratory Laboratory, [facility] [address] [place] [address] [facility], Lab [address] [place] [address] Arrived 10/30/2023 4:30 PM EDT Home Visit Care Coordination and Integration [address] [place] [facility] [place] [address] [facility] Violin Mechanic [address] [place] [address] 11/07/2023 2:10 PM EDT Anticoagulation Pharmacy, [address] [place] [address] Pharmacist1, [address] [place] [address] 11/07/2023 2:30 PM EDT Office Visit Neurology, [place] [address] [place] [address] Ruth Lobo PA-C [address] [place] [address] 11/08/2023 8:15 AM EDT Appointment Radiology, [facility] [address] [place] [address] 11/14/2023 1:30 PM EDT Office Visit Cardiology, [place] [address] [place] [address] [facility] [address] [place] [address] 12/11/2023 2:00 PM EDT Office Visit Cardiology, [place] [address] [place] [address] Stefani Mooney CRNP [address] [place] [address] 01/21/2024 2:00 PM EDT Office Visit Endocrinology [address] [place] [address] Sakina Jones MD 100 [place] [address] 01/25/2024 3:30 PM EDT Office [facility] Surgery [facility] [address] [address] [place] [address] Laney Hogue MD 200 [place] [address] 02/25/2024 9:20 AM EDT Office Visit Family Practice, [place] [address] [place] [phone] Kaiser Amanda MD 21 [facility] [place] [address] 10/21/2024 9:15 AM EDT Appointment Radiology, [facility] [address] [place] [address] 10/29/2024 9:45 AM EDT Office Visit Urology Rolo Colon [address] [facility] [address] [place] [address] Bert Boogie Jr., MD [address] [facility] [address] [place] [address] Scheduled Orders Name Type Priority Associated Diagnoses Orde r Schedule URINALYSIS, REFLEX TO MICROSCOPIC Lab Routine Urination pain Expected: 10/29/2023, Expires: 10/28/2024 Scheduled Procedures Name Priority Associated Diagnoses Date/Ti [...] D LEVEL ONCE IN A LIFETIME-USE SMARTSET# 24944 Completed 07/26/2023, 02/26/2023, 01/23/2023, Additional history exists [...] this encounter Medical Devices Implanted Type Area Tank Truck Loader Device Identifier Shelf Expiration Date Model / Serial / Lot Cement Bone Simplex Hv & G - [id number] Implanted:Qty: 2 on 09/02/2020 by Gianni Hubbard MD at OR [facility] Right: Hip LUDY : ORTHOPAEDICS 08/11/2021 6195-1-010 / / [id number] Spacer Ring Aclde Distal Lg 14 - [id number] Implanted:Qty: 1 on 09/02/2020 by Gianni Hubbard MD at OR [facility] Right: Hip LUDY : ORTHOPAEDICS 11/25/2024 [id number] / / Accolade C 127 6 37/158 - [id number] Implanted:Qty: 1 on 09/02/2020 by Gianni Hubbard MD at OR [facility] Right: Hip LUDY : ORTHOPAEDICS 05/29/2023 [id number] / / [id number] Hip Cocr Lfit Head V40 28/+4 - [id number] Implanted:Qty: 1 on 09/02/2020 by Gianni Hubbard MD at OR [facility] Right: Hip LUDY : ORTHOPAEDICS 11/15/2024 6260-9-228 / / [id number] Hip Head Bipol Uhr Uni 28x52 - [id number] Implanted:Qty: 1 on 09/02/2020 by Gianni Hubbard MD at OR [facility] Right: Hip LUDY : ORTHOPAEDICS 11/25/2024 [id number] / / [id number] Lens Intraoc 17.5 - [id number] - [id number] Implanted:Qty: 1 on 03/23/2022 by Rad Morgan MD at OR [facility] Left: Eye [employer] 10/11/2026 [id number] / [id number] / [id number] Lens Intraoc 18.0 - [id number] - [id number] Implanted:Qty: 1 on 03/30/2022 by Rad Morgan MD at OR [facility] Right: Eye BAUSCH & LOMB 01/11/2027 [id number] / [id number] / [id number] documented as of this encounter Visit Diagnoses Diagnosis Urination pain- Primary Dysuria documented in this encounter Advance Directives * [...] Power of Attor jus? No Care Teams Heavy Antiarmor Weapons Infantryman Relationship Specialty Start Date End Date Kaiser Amanda MD [address] [place] [address] PCP - General Family Medicine 04/11/21 documented as of this encounter
--- OUTSIDE RECORDS SUMMARY | 2024-01-29 20:41 | External Medical Summary | Summary of Care ---
Author Name Unknown Organization [facility] Address [address] [facility] [address] Phone [phone] Care Team Providers Care Civil Defense Director Name Role Phone Kaiser Amanda MD Primary Care Provider [phone] Reason for Referral * Precert (Within 10 days (routine)) - Authorized Specialty Diagnoses / Procedures Referred By Janessaac t Referred To Contact Radiology Diagnoses Confusional arousals Procedures CT HEAD/BRAIN WO CONTRAST Juan David MD [address] [place] [address] Referral ID Status Reason Start Date Expiration Date V isits Requested Visits Authorized [id number] Authorized 10/29/2023 999 999 Reason for Visit * Precert (Within 10 days (routine)) - Authorized Specialty Diagnoses / Procedures Referred By Fauzia oconnor Referred To Contact Radiology Diagnoses Confusional arousals Procedures CT HEAD/BRAIN WO CONTRAST Juan David MD [address] [place] [address] Referral ID Status Reason Start Date Expiration Date V isits Requested Visits Authorized [id number] Authorized 10/29/2023 999 999 Encounter Details Date Type Department Care Team (Latest Contact Info) Description 10/29/2023 11:52 AM EDT - 10/29/2023 11:59 PM EDT Hospital Encounter Radiology, [address] [address] Arrived Discharge Disposition: Home - Self Care Allergies Active Allergy Reactions Criticality Noted Date Comments Cat Dander Itching 07/14/2016 documented as of this encounter (statuses as of 10/30/2023) Medications Medication Sig Dispensed Refills Start Date End Date Status I-MarketTouch Ultra 2 w/Device KitIndications:Type 2 diabetes mellitus with hemoglobin A1c goal of less than 7.5% ([facility]) Testing blood sugars twice daily Dx: E11.9 1 Kit 11 06/06/2021 Active [employer] Delica Lancets 30GIndications:Type 2 diabetes mellitus with [...] MG Sublingual Tablet Sublingual (Nitrostat)Indicatio ns:Stable angina ([facility]) Place 1 [...] mRNA, LNP-s, No Pre serve, 2-Dose Series (Streetline) 04/23/2021,08/09/2020,07/12/2020 Covid-19, Mrna, Lnp-s, Pf, B ivalent, [...] money to get more. Never true 10/15/2023 Childcare Answer Date Recorded Do you feel overwhelmed with taking care of a child, family member or friend? No 10/15/2023 Does your family need help f inding childcare? (Household - for ages 0-17 years) Not on file 10/15/2023 Clothing Answer Date Recorded Have you been unable to get clothing when it was really needed? No 10/15/2023 Is your family able to get c lothes or diapers when needed? (Household - for ages 0-17 years) Not on file 10/15/2023 Personal Safety Answer Date Recorded Do you feel unsafe or have concerns for your saf ety? No 10/15/2023 Do you have concerns for you r family's safety? (Household - for ages 0-17 years) Not on file 10/15/2023 Utilities Answer Date Recorded Do you have trouble paying y our heating, water, or electric bill? No 10/15/2023 Is your family able to pay t he heat, water, or electric bill? (Household - for ages 0-17 years) Not on file 10/15/2023 Does your family have access to good internet? (Household - for ages 0-17 years) Not on file 10/15/2023 Employment Status Answer Date Recorded Are you unemployed or without regular income? No 10/15/2023 Does the household have a re gular source of income? (Household - for ages 0-17 years) Not on file 10/15/2023 Social Connections Answer Date Recorded How often do you feel lonely or isolated from th ose around you? Never 10/15/2023 Financial Resource Strain Answer Date R ecorded Do you have any trouble payi ng for your medications, or do you think you might in the future? No 10/15/2023 Does your family have troubl e paying for medicine? (Household - for ages 0-17 years) Not on file 10/15/2023 Transportation Needs Answer Date Record ed READ ONLY Do you have troubl e getting a ride to medical visits or work? Never True 10/15/2023 Does your family have a hard time getting a ride to doctors visits? (Household - for ages 0-17 years) Not on file 10/15/2023 Has lack of transportation k ept you from medical appointments, meetings, work, or from getting things needed for daily living? Check all that apply. (Adult - for ages 18 years and over) Not on file 10/15/2023 Do you (or your family) have trouble finding or paying for a ride (transportation)? (Household - for ages 0-17 years) Not on file 10/15/2023 Housing Stability Answer Date Recorded Do you currently live in a s helter or have no steady place to sleep at night? No 10/15/2023 READ ONLY Do you think you a re at risk of becoming homeless? No 10/15/2023 Does your family worry about paying for your home or becoming homeless? (Household - for ages 0-17 years) Not on file 0 10/15/2023 Are you homeless or worried that you might be in the future? (Adult - for ages 18 years and over) Not on file Are you (or your family) octavio eless or worried that you might be in the future? (Household - for ages 0-17 years) Not on file Food Insecurity Answer Date Recorded Do you need food for this week? No 10/15/2023 Are you able to get enough f ood for your family? (Household - for ages 0-17 years) Not on file 10/15/2023 Does your family need food t his week? (Household - for ages 0-17 years) Not on file 10/15/2023 Do you always have enough fo od for your family? (Household - for ages 0-17 years) Not on file 10/15/2023 Sex and Gender Information Value Date [...] Visit Care Coordination and Integration [address] [place] [address] [facility] Dye Beck Reel Operator [address] [place] [address] 11/07/2023 2:10 PM EDT Anticoagulation Pharmacy, [place] [address] [facility] [place] [address] Pharmacist1, [facility] [address] [place] [address] 11/07/2023 2:30 PM EDT Office Visit Neurology, [place] [address] [place] [address] Ruth Lobo PA-C [address] [place] [address] 11/08/2023 8:15 AM EDT Appointment Radiology, [facility] [address] [place] [address] 11/14/2023 1:30 PM EDT Office Visit Cardiology, [place] [address] [place] [address] [facility] [address] [place] [address] 12/11/2023 2:00 PM EDT Office Visit Cardiology, [place] [address] [place] [address] Stefani Mooney CRNP [address] [place] [address] 01/21/2024 2:00 PM EDT Office Visit Endocrinology Natalie [address] [place] [address] Sakina Jones MD [address] [place] [address] 01/25/2024 3:30 PM EDT Office Visit [facility] Surgery [facility] [address] [place] [address] Laney Hogue MD 200 [place] [address] 02/25/2024 9:20 AM EDT Office Visit Family [facility] 21 [place] [id number] Kaiser Amanda MD 21 [place] [address] 10/21/2024 9:15 AM EDT Appointment Radiology, [facility] [address] [place] [address] 10/29/2024 9:45 AM EDT Office Visit Urology Rolo Colon [address] [place] [address] [place] [address] Bert Boogie Jr., MD [address] [place] [address] [place] [address] Scheduled Procedures Name Priority Associated Diagnoses Date/Ti [...] D LEVEL ONCE IN A LIFETIME-USE SMARTSET# 00765 Completed 07/26/2023, 02/26/2023, 01/23/2023, Additional history exists [...] this encounter Medical Devices Implanted Type Area Ict Sales Representative Device Identifier Shelf Expiration Date Model / Serial / Lot Cement Bone Simplex Hv & G - [id number] Implanted:Qty: 2 on 09/02/2020 by Gianni Hubbard MD at OR [facility] Right: Hip LUDY : ORTHOPAEDICS 08/11/2021 6195-1-010 / / [id number] Spacer Ring Aclde Distal Lg 14 - [id number] Implanted:Qty: 1 on 09/02/2020 by Gianni Hubbard MD at OR [facility] Right: Hip LUDY : ORTHOPAEDICS 11/25/2024 [id number] / / Accolade C Cs 127 6 37/158 - [id number] Implanted:Qty: 1 on 09/02/2020 by Gianni Hubbard MD at OR [facility] Right: Hip LUDY : ORTHOPAEDICS 05/29/2023 6057-0637D / / [id number] Hip Cocr Lfit Head V40 28/+4 - [id number] Implanted:Qty: 1 on 09/02/2020 by Gianni Hubbard MD at OR [facility] Right: Hip LUDY : ORTHOPAEDICS 11/15/2024 6260-9-228 / / [id number] Hip Head Bipol Uhr Uni 28x52 - [id number] Implanted:Qty: 1 on 09/02/2020 by Gianni Hubbard MD at OR [facility] Right: Hip LUDY : ORTHOPAEDICS 11/25/2024 UH1-52-28 / / [id number] Lens Intraoc 17.5 - [id number] - [id number] Implanted:Qty: 1 on 03/23/2022 by Rad Morgan MD at OR [facility] Left: Eye [employer] 10/11/2026 [id number] / [id number] / [id number] Lens Intraoc 18.0 - [id number] - [id number] Implanted:Qty: 1 on 03/30/2022 by Rad Morgan MD at OR [facility] Right: Eye BA[employer]CH & LOMB 01/11/2027 [id number] / [id number] / [id number] documented as of this encounter Procedures Procedure Name Priority Date/Time Associated Diagnosis Comments CT HEAD/BRAIN WO CONTRAST Routine 10/29/2023 12:15 PM EDT Confusional arousals documented in this encounter Results * CT HEAD/BRAIN WO CONTRAST (10/29/2023 12:15 PM EDT) Anatomical Region Laterality Modality Head Computed Tomogra phy 10/30/2023 11:5 9 AM EDT Narrative 10/30/2023 11:57 AM EDT EXAM: CT BRAIN WITHOUT CONTRAST HISTORY: Confusional arousals COMPARISON: October 06, 2023. TECHNIQUE: CT brain without contrast was performed. FINDINGS: There is no acute intracranial hemorrhage. A focus of encephalomalacia in the right frontal lobe is stable from previous imaging. Patchy areas of hypoattenuation in the deep white matter are also similar as is another focus of encephalomalacia in the occipital lobe on the left. There is no new loss of diaz-white differentiation and there are no extra-axial collections. Moderate global volume loss with ex vacuo enlargement of the ventricles appears similar to previous imaging. The basal cisterns are patent. There are no calvarial abnormalities. The orbits are unremarkable aside from prior lens extraction. The paranasal sinuses and mastoid air cells are clear. IMPRESSION: 1. No intracranial mass or hemorrhage. 2. 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 Procedure Note Hayden Nugent MD - 10/30/2023 EXAM: CT BRAIN WITHOUT CONTRAST HISTORY: Confusional arousals COMPARISON: October 06, 2023. TECHNIQUE: CT brain without contrast was performed. FINDINGS: There is no acute intracranial hemorrhage. A focus of encephalomalacia inthe right frontal lobe is stable from previous imaging. Patchy areas ofhypoattenuation in the deep white matter are also similar as is anotherfocus of encephalomalacia in the occipital lobe on the left. There is nonew loss of diaz-white differentiation and there are no extra-axialcollections. Moderate global volume loss with ex vacuo enlargement of theventricles appears similar to previous imaging. The basal cisterns arepatent. There are no calvarial abnormalities. The orbits are unremarkable asidefrom prior lens extraction. The paranasal sinuses and mastoid air cellsare clear. IMPRESSION: 1. No intracranial mass or hemorrhage. 2. Similar findings of previous right frontal and left occipitalinfarcts, chronic white matter change, and moderate global volume loss. Juan David MD RAD CT documented in this encounter Visit Diagnoses Diagnosis Confusional arousals documented in this encounter Advance Directives * [...] Power of Attor jus? No Care Teams Civil Defense Director Relationship Specialty Start Date End Date Kaiser Amanda MD [address] [place] [address] PCP - General Family Medicine 04/11/21 documented as of this encounter
--- OUTSIDE RECORDS SUMMARY | 2024-01-29 20:41 | External Medical Summary | Summary of Care ---
Author Name Unknown Organization [facility] Address [address] [facility] [place] [address] Phone [phone] Care Team Providers Care Lithoplate Maker Name Role Phone Kaiser Amanda MD Primary Care Provider +1 [phone] Reason for Visit * Reason Onset Date Comments Advice 10/19/2023 Encounter Details Date Type Department Care Team (Late st Contact Info) Description 10/19/2023 [facility] [place] [address] Kaiser Amanda MD 21 [place] [address] Advice Allergies Active Allergy Reactions Criticality Noted Date Comments Cat Dander Itching 07/14/2016 documented as of this encounter (statuses as of 10/22/2023) Medications Medication Sig Dispensed Refills Start Date End Date Status Rive Technology Ultra 2 w/Device KitIndications:Type 2 diabetes mellitus with hemoglobin A1c goal of less than 7.5% ([facility]) Testing blood sugars twice daily Dx: E11.9 1 Kit 11 06/06/2021 Active OneTouch Delica Lancets 30GIndications:Type 2 diabetes mellitus with hemoglobin A1c goal of less than 7.5% ([facility]),Type 2 diabetes mellitus with polyneuropathy ([facility]) Check BS once daily [...] for flares 60 g 2 01/19/2023 Active Ketoconazole 2 % External Shampoo (Nizoral) APPLY TO SCALP AND EYEBROWS DAILY- LATHER, WAIT 5 MINUTES, THEN RINSE 120 mL 07/06/2023 Active OneTouch Verio In Vitro Strip (Glucose [...] 10/07/2023 Nitroglycerin 0.4 MG Sublingual Tablet Sublingual (Nitrostat)Stephanieti ons:Stable angina (HCC) Place 1 Tablet under [...] as of this encounter (statuses as of 10/22/2023) Active Problems Problem Noted Date Diagnosed Date [...] as of this encounter (statuses as of 10/22/2023) Resolved Problems Problem Noted Date Diagnosed Date [...] as of this encounter (statuses as of 10/22/2023) Immunizations Name Administration Dates Next Due COVID-19 mRNA, LNP-s, No Pre serve, 2-Dose Series ([employer]) 04/23/2021,08/09/2020,07/12/2020 Covid-19, Mrna, Lnp-s, Pf, B ivalent, [...] encounter Miscellaneous Notes * Telephone Encounter - Chaparro Guevara LPN - 10/22/2023 11:13 AM EDT Patient has been informed of below message and verbalized understanding. * Telephone Encounter - Kaiser Amanda MD - 10/22/2023 6:15 AM EDT Yes, he can continue tylenol. It had previously been prescribed on his med list, and since it's notprescription, it was removed from his prescription meds. It then automatically says "Stop taking x medication". Fine for him to take up to 3000mg tylenol daily as needed * Telephone Encounter - Mary Garnett LPN - 10/19/2023 4:23 PM EDT Spoke to pt's who states pt read on his check out papers from 6/5/[address] Amanda,he was to stop taking tylenol, although nothing noted in ov note Pt takes tylenol when needed for hip and shoulder pain, which is from an old injury Pt asking if he can continue taking tylenol * Telephone Encounter - Becky Vargas OSA - 10/19/2023 3:58 PM EDT Pt's , Ciara, is calling to see what she can give her to help with pain. He was told to stop taking tylenol. What can he take for his hip and shoulder pain? documented in this encounter Plan of Treatment Upcoming Encounters Date Type Department Care Team (Late st Contact Info) Description 10/29/2023 2:30 PM EDT Office Visit Cardiology, [place] [facility] [address] [facility] Card[facility] [address] 10/30/2023 4:30 PM EDT Home Visit Care Coordination and Integration [address] [place] [facility] [place] [address] Jess Nevarez, [facility] St[facility] Hewer [address] [place] [address] 11/07/2023 2:10 PM EDT Anticoagulation Pharmacy, [place] [address] [place] [address] Pharmacist1, [facility] [place] 21 [place]CLAIN [address] 11/07/2023 2:30 PM EDT Office Visit Neurology, [place] 21 [place] [address] Ruth Lobo PA-C 21 [place] [address] 01/21/2024 2:00 PM EDT Office Visit Endocrinology Natalie [address] [place] [address] Sakina Jones MD [address] [place] [address] 01/25/2024 3:30 PM EDT Office Visit [facility] Surgery [facility] [address] [place] [address] Laney Hogue MD [address] [place] [address] 02/25/2024 9:20 AM EDT Office Visit [facility] 21 [place] [phone] Kaiser Amanda MD 21 [place] [address] 10/21/2024 9:15 AM EDT Appointment Radiology, [facility] 400 [facility] [place] [id number] 10/29/2024 9:45 AM EDT Office Visit Urology Aleida Rinaldi [place] [address] [place] [address] [place] [address] Bert Boogie Jr., MD 27 [facility] 270 [facility] [place] [address] Scheduled Procedures Name Priority Associated Diagnoses Date/Ti [...] 07/26/2023, 0 06/09/2022, 04/11/2021, Additional history exists Albumin/Creatinine Ratio 10/17/2024 024, 01/10/2023, 07/07/2021, Additional [...] D LEVEL ONCE IN A LIFETIME-USE SMARTSET# 71667 Completed 07/26/2023, 02/26/2023, 01/23/2023, Additional history exists [...] this encounter Medical Devices Implanted Type Area Scrub Tech Device Identifier Shelf Expiration Date Model / Serial / Lot Cement Bone Simplex Hv & G - [id number] Implanted:Qty: 2 on 09/02/2020 by Gianni Hubbard MD at OR [facility] Right: Hip LUDY : ORTHOPAEDICS 08/11/2021 6195-1-010 / / [id number] Spacer Ring Aclde Distal Lg 14 - [id number] Implanted:Qty: 1 on 09/02/2020 by Gianni Hubbard MD at OR [facility] Right: Hip LUDY : ORTHOPAEDICS 11/25/2024 0466-7870 / / Accolade C Cs 127 6 37/158 - [id number] Implanted:Qty: 1 on 09/02/2020 by Gianni Hubbard MD at OR [facility] Right: Hip LUDY : ORTHOPAEDICS 05/29/2023 6057-0637D / / [id number] Hip Cocr Lfit Head V40 28/+4 - [id number] Implanted:Qty: 1 on 09/02/2020 by Gianni Hubbard MD at OR [facility] Right: Hip LUDY : ORTHOPAEDICS 11/15/2024 6260-9-228 / / [id number] Hip Head Bipol Uhr Uni 28x52 - [id number] Implanted:Qty: 1 on 09/02/2020 by Gianni Hubbard MD at OR [facility] Right: Hip LUDY : ORTHOPAEDICS 11/25/2024 UH1-52-28 / / [id number] Lens Intraoc 17.5 - [id number] - [id number] Implanted:Qty: 1 on 03/23/2022 by Rad Morgan MD at OR [facility] Left: Eye BAUSCH & LOMB 10/11/2026 [id number] / [id number] / [id number] Lens Intraoc 18.0 - [id number] - [id number] Implanted:Qty: 1 on 03/30/2022 by Rad Morgan MD at [facility] Right: Eye BAUSCH & LOMB 01/11/2027 [id number] / [id number] / [id number] documented as of this encounter Additional Health [...] Power of Attor jus? No Care Teams Lithoplate Maker Relationship Specialty Start Date End Date Kaiser Amanda MD 21 [place] [address] PCP - General Family Medicine 04/11/21 documented as of this encounter
--- OUTSIDE RECORDS SUMMARY | 2024-01-29 20:41 | External Medical Summary | Summary of Care ---
Author Name Unknown Organization [facility] Address 100 [facility] [address] Phone [phone] Care Team Providers Care Hand Clerical Verifier Name Role Phone Kaiser Amanda MD Primary Care Provider +1 [phone] Encounter Details Date Type Department Care Team (Late st Contact Info) Description 10/30/2023 Telephone Cardiology, [place] 400 [facility] [place] [address] [facility] [address] [facility] [place] S[place] [address] Allergies Active Allergy Reactions Criticality Noted [...] [facility]),Type 2 diabetes mellitus with polyneuropathy (HCC) [...] mRNA, LNP-s, No Pre serve, 2-Dose Series ([employer]) 04/23/2021,08/09/2020,07/12/2020 Covid-19, Mrna, Lnp-s, Pf, B ivalent, [...] Telephone Encounter - Kaiser Amanda MD - 10/30/2023 8:41 AM EDT Please advise I have sent 10 days on antibiotic to [facility] to treat a possible UTI. * Telephone Encounter - Sandra Cole RP - 10/30/2023 8:22 AM EDT Patient in to see [facility] cardio yesterday for CHF management. Complained of burning when voiding. Hx of frequent UTI. Treated for Klebsiella UTI during hospitalization in September. Currently not on any abx. I ordered a urinalysis, it appears positive. Please advise on treatment Thank you! Sandra Cole Pharm D Clinical [facility] Pharmacist Cardiology 10/30/2023,8:23 AM documented in this encounter Plan of Treatment Upcoming Encounters Date Type Department Care Team (Late st Contact Info) Description 10/30/2023 4:30 PM EDT Home Visit [facility] Coordination and Integration [address] [facility] [address] Jess Nev[facility] 100 [place] [address] 11/07/2023 2:10 PM EDT Anticoagulation Pharmacy, [address] [address] Pharmacist1, [address] [address] 11/07/2023 2:30 PM EDT Office Visit Neurology, [address] [address] Ruth Lobo PA-C 21 [place] [address] 11/08/2023 8:15 AM EDT Appointment Radiology, [facility] 400 [facility] [place] [address] 11/14/2023 1:30 PM EDT Office Visit Cardiology, [place] 400 [facility] [place] [address] [facility] Cardiology 400 [facility] [place] [address] 12/11/2023 2:00 PM EDT [facility] 400 [facility] [place] [address] Stefani Mooney CRNP 400 [facility] [address] 01/21/2024 2:00 PM EDT Office Visit Endocrinology [address] [place] [address] Sakina Jones MD [address] [place], [place] [address] 01/25/2024 3:30 PM EDT Office Visit [facility] Surgery [facility] [address] [place] [address] Laney Hogue MD 200 [place] [address] 02/25/2024 9:20 AM EDT Office Visit [facility] 21 [place] [phone] Kaiser Amanda MD 21 [place] [address] 10/21/2024 9:15 AM EDT Appointment Radiology, [address] [place] [address] 10/29/2024 9:45 AM EDT Office Visit Urology Aleida Rinaldi [place] [facility] [address] [place] [address] Bert Boogie Jr., MD [address] [facility] [address] [place] [address] Scheduled Procedures Name Priority Associated Diagnoses Date/Ti [...] D LEVEL ONCE IN A LIFETIME-USE SMARTSET# 70767 Completed 07/26/2023, 02/26/2023, 01/23/2023, Additional history exists [...] this encounter Medical Devices Implanted Type Area City Recorder Device Identifier Shelf Expiration Date Model / Serial / Lot Cement Bone Simplex Hv & G - [id number] Implanted:Qty: 2 on 09/02/2020 by Gianni Hubbard MD at OR [facility] Right: Hip LUDY : ORTHOPAEDICS 08/11/2021 6195-1-010 / / [id number] Spacer Ring Aclde Distal Lg 14 - [id number] Implanted:Qty: 1 on 09/02/2020 by Gianni Hubbard MD at OR [facility] Right: Hip LUDY : ORTHOPAEDICS 11/25/2024 0453-9077 / / Accolade C Cs 127 6 37/158 - [id number] Implanted:Qty: 1 on 09/02/2020 by Gianni Hubbard MD at OR [facility] Right: Hip LUDY : ORTHOPAEDICS 05/29/2023 6057-0637D / / [id number] Hip Cocr Lfit Head V40 28/+4 - [id number] Implanted:Qty: 1 on 09/02/2020 by Gianni Hubbard MD at OR [facility] Right: Hip LUDY : ORTHOPAEDICS 11/15/2024 6260-9-228 / / [id number] Hip Head Bipol Uhr Uni 28x52 - [id number] Implanted:Qty: 1 on 09/02/2020 by Gianni Hubbard MD at OR [facility] Right: Hip LUDY : ORTHOPAEDICS 11/25/2024 UH1-52-28 / / [id number] Lens Intraoc 17.5 - [id number] - [id number] Implanted:Qty: 1 on 03/23/2022 by Rad Morgan MD at OR [facility] Left: Eye BAUSCH & LOMB 10/11/2026 [id number] / [id number] / [id number] Lens Intraoc 18.0 - [id number] - [id number] Implanted:Qty: 1 on 03/30/2022 by Rad Morgan MD at [facility] Right: Eye BAUSCH & LOMB 01/11/2027 [id number] / [id number] / [id number] documented as of this encounter Visit Diagnoses Diagnosis Acute cystitis without hematuria- Primary Acute cystitis documented in this encounter Advance Directives * [...] Power of Attor jus? No Care Teams Hand Clerical Verifier Relationship Specialty Start Date End Date Kaiser Amanda MD 21 [place] [address] PCP - General Family Medicine 04/11/21 documented as of this encounter
--- OUTSIDE RECORDS SUMMARY | 2024-01-29 20:41 | External Medical Summary | Summary of Care ---
Author Name Unknown Organization [facility] Address 100 [facility] [place] [address] Phone [phone] Care Team Providers Care Audiovisual Librarian Name Role Phone Kaiser Amanda MD Primary Care Provider [phone] [phone] Reason for Visit * Reason Onset Date Comments Test Results 10/30/2023 Encounter Details Date Type Department Care Team (Late st Contact Info) Description 10/30/2023 Telephone [facility]iology, [place] [facility] [phone] [facility] 21 [facility] [place] SETH [phone] Test Results Allergies Active Allergy Reactions Criticality Noted Date Comments Cat Dander Itching 07/14/2016 documented as of this encounter (statuses as of 10/30/2023) Medications Medication Sig Dispensed Refills Start Date End Date Status BrickstreamTouch Ultra 2 w/Device KitIndications:Type 2 diabetes mellitus with hemoglobin A1c goal of less than 7.5% ([facility]) Testing blood sugars twice daily [...] goal of less than 7.5% ([facility]) TAKE 1 TABLET BY MOUTH [...] Telephone Encounter - Mary Garnett LPN - 10/30/2023 11:35 AM EDT Pt informed, verbalizes understanding * Telephone Encounter - Kaiser Amanda MD - 10/30/2023 8:41 AM EDT Please advise I have sent 10 days on antibiotic to [facility] to treat a possible UTI. * Telephone Encounter - Sandra Cole [facility] - 10/30/2023 8:22 AM EDT Patient in to see [facility] cardio yesterday for CHF management. Complained of burning when voiding. Hx of frequent UTI. Treated for Klebsiella UTI during hospitalization in September. Currently not on any abx. I ordered a urinalysis, it appears positive. Please advise on treatment Thank you! Sandra Cole Pharm D Clinical [facility] Pharmacist Cardiology 10/30/2023,8:23 AM documented in this encounter Plan of Treatment Upcoming Encounters Date Type Department Care Team (Late st Contact Info) Description 10/30/2023 4:30 PM EDT Home Visit Care Coordination and Integration [address] [place] [address] Jess [facility] Health Hris Manager [address] [place] [address] 11/07/2023 2:10 PM EDT Anticoagulation Pharmacy, [address] [address] Pharmacist1, [facility] 21 [facility] [place] S[place] [address] 11/07/2023 2:30 PM EDT Office Visit Neurology, [place] 21 [facility] [place] [address] Ruth Lobo PA-C 21 [facility] [address] 11/08/2023 8:15 AM EDT Appointment Radiology, [address] [place] [address] 11/14/2023 1:30 PM EDT Office Visit Cardiology, [address] [place] [address] [facility] Cardiology [address] [place] [address] [place] [address] 12/11/2023 2:00 PM EDT Office Visit Cardiology, [address] [place] [address] Stefani Mooney CRNP 400 [place] [address] 01/21/2024 2:00 PM EDT Office Visit Endocrinology [address] [place] [address] Sakina Jones MD [address] [place], [place] [address] 01/25/2024 3:30 PM EDT Office Visit [facility] Surgery [facility] 200 [place] [address] Laney Hogue MD 200 [place] [address] 02/25/2024 9:20 AM EDT Office Visit [facility] 21 [facility] [place] [address] Kaiser Amanda MD 21 [facility] [address] 10/21/2024 9:15 AM EDT Appointment Radiology, [facility] 400 [place] [address] 10/29/2024 9:45 AM EDT Office Visit Urology [place] [address] [place] [address] Bert Boogie Jr., MD [address] [place] [address] [place] [address] Scheduled Procedures Name Priority Associated Diagnoses Date/Ti [...] D LEVEL ONCE IN A LIFETIME-USE SMARTSET# 93303 Completed 07/26/2023, 02/26/2023, 01/23/2023, Additional history exists [...] this encounter Medical Devices Implanted Type Area Revenue Settlements Administrator Device Identifier Shelf Expiration Date Model / Serial / Lot Cement Bone Simplex Hv & G - [id number] Implanted:Qty: 2 on 09/02/2020 by Gianni Hubbard MD at OR [facility] Right: Hip LUDY : ORTHOPAEDICS 08/11/2021 6195-1-010 / / [id number] Spacer Ring Aclde Distal Lg 14 - [id number] Implanted:Qty: 1 on 09/02/2020 by Gianni Hubbard MD at OR [facility] Right: Hip LUDY : ORTHOPAEDICS 11/25/2024 0543-5041 / / Accolade C Cs 127 6 37/158 - [id number] Implanted:Qty: 1 on 09/02/2020 by Gianni Hubbard MD at OR [facility] Right: Hip LUDY : ORTHOPAEDICS 05/29/2023 6057-0637D / / [id number] Hip Cocr Lfit Head V40 28/+4 - [id number] Implanted:Qty: 1 on 09/02/2020 by Gianni Hubbard MD at OR [facility] Right: Hip LUDY : ORTHOPAEDICS 11/15/2024 6260-9-228 / / [id number] Hip Head Bipol Uhr Uni 28x52 - [id number] Implanted:Qty: 1 on 09/02/2020 by Gianni Hubbard MD at OR [facility] Right: Hip LUDY : ORTHOPAEDICS 11/25/2024 UH1-52-28 / / [id number] Lens Intraoc 17.5 - [id number] - [id number] Implanted:Qty: 1 on 03/23/2022 by Rad Morgan MD at OR [facility] Left: Eye BAUSCH & LOMB 10/11/2026 [id number] / [id number] / [id number] Lens Intraoc 18.0 - [id number] - [id number] Implanted:Qty: 1 on 03/30/2022 by Rad Morgan MD at OR [facility] Right: Eye BAUSCH & LOMB 01/11/2027 [id number] / [id number] / [id number] documented as of this encounter Visit Diagnoses [...] Power of Attor jus? No Care Teams Audiovisual Librarian Relationship Specialty Start Date End Date Kaiser Amanda MD 21 [place] [address] PCP - General Family Medicine 04/11/21 documented as of this encounter
--- OUTSIDE RECORDS SUMMARY | 2024-01-29 20:41 | External Medical Summary | Summary of Care ---
Author Name Unknown Organization [facility] Address [address] [place] [address] Phone [phone] Care Team Providers Care Sulfuric Acid Plant Supervisor Name Role Phone Kaiser Amanda MD Primary Care Provider [phone] -[phone] Reason for Referral * Precert (Within 10 days (routine)) - Authorized Specialty Diagnoses / Procedures Referred By Contac t Referred To Contact Radiology Diagnoses Confusional arousals Procedures CT HEAD/BRAIN WO CONTRAST Juan David MD [address] [place] [address] Referral ID Status Reason Start Date Expiration Date V isits Requested Visits Authorized [id number] Authorized 10/29/2023 999 [id number] Encounter Details Date Type Department Care Team ([facility] st Contact Info) Description 10/25/2023 Orders Only Radiology, [facility] [address] [place] [address] Requisition, External Radiology [address] [place] [address] Confusional arousals* Allergies Active Allergy Reactions Criticality Noted Date Comments Cat Dander Itching 07/14/2016 documented as of this encounter (statuses as of 10/25/2023) Medications Medication Sig Dispensed Refills Start Date End Date Status OneTouch Ultra 2 w/Device KitIndications:Type 2 diabetes mellitus with hemoglobin A1c goal of less than 7.5% ([facility]) Testing blood sugars twice daily Dx: E11.9 1 Kit 11 06/06/2021 Active Sincere Lagunas 30GIndications:Type 2 diabetes mellitus with hemoglobin [...] of less than 7.5% ([facility]) TAKE 1 TABLET BY MOUTH [...] for flares 60 g 2 01/19/2023 Active Extreme ReachTouch Verio In Vitro Strip (Glucose Blood)Indications: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 ([facility]),Type 2 diabetes mellitus with hemoglobin A1c goal of less than 7.5% ([facility]) USE STRIP TO CHECK GLUCOSE [...] THEN RINSE 120 mL 1 10/25/2023 Active documented as of this encounter (statuses [...] Description 10/29/2023 12:45 PM EDT Appointment Radiology, [facility] [address] [address] 10/29/2023 2:30 PM EDT Office Visit Cardiology, [address] [address] Rolo [facility] Cardiology [address] [address] 10/30/2023 4:30 PM EDT Home Visit Care Coordination and Integration [address] [place] [address] Jess Nevarez [facility] Data Security Consultant [address] [place] [address] 11/07/2023 2:10 PM EDT Anticoagulation Pharmacy, [place] 21 [place] [address] Pharmacist1, [facility] [place] [facility] [address] 11/07/2023 2:30 PM EDT Office Visit Neurology, [place] 21 [place] [address] Ruth Lobo PA-C 21 [place] [address] 01/21/2024 2:00 PM EDT Office Visit Endocrinology Natalie Ramirez Dr [address] [place] [address] Sakina Jones MD [address] [place] [address] 01/25/2024 3:30 PM EDT Office Visit MOHS Surgery [facility] [address] [place] [address] Laney Hogue MD [address] [place] [address] 02/25/2024 9:20 AM EDT Office Visit Family Practice, [place] 21 [facility] Cipriano RodriguezwDUSTIN lamb [phone] Kaiser Amanda MD 21 [place] [address] 10/21/2024 9:15 AM EDT Appointment Radiology, [address] [place] [address] 10/29/2024 9:45 AM EDT Office Visit Urology Rolo Colon [address] [place] [address] Bert Boogie Jr., MD [address] [place] [address] Scheduled Orders Name Type Priority Associated Diagnoses Orde r Schedule CT HEAD/BRAIN WO CONTRAST Medical Imaging Routine Confusional arousals Expected: 10/29/2023, Expires: 11/23/2024 Scheduled Procedures Name Priority Associated Diagnoses Date/Ti [...] 01/25/2023, 090 01/2021, 12/10/2018 Colonoscopy 03/16/2025 03/16/2022, 07/2021, 08/06/2009 [...] D LEVEL ONCE IN A LIFETIME-USE SMARTSET# 86662 Completed 07/26/2023, 02/26/2023, 01/23/2023, Additional history exists [...] this encounter Medical Devices Implanted Type Area Sql Application Developer Device Identifier Shelf Expiration Date Model / Serial / Lot Cement Bone Simplex Hv & G - [id number] Implanted:Qty: 2 on 09/02/2020 by Gianni Hubbard MD at OR [facility] Right: Hip LUDY : ORTHOPAEDICS 08/11/2021 6195-1-010 / / [id number] Spacer Ring Aclde Distal Lg 14 - [id number] Implanted:Qty: 1 on 09/02/2020 by Gianni Hubbard MD at OR [facility] Right: Hip LUDY : ORTHOPAEDICS 11/25/2024 5750-9850 / / Accolade C Cs 127 6 37/158 - [id number] Implanted:Qty: 1 on 09/02/2020 by Gianni Hubbard MD at OR [facility] Right: Hip LUDY : ORTHOPAEDICS 05/29/2023 6057-0637D / / [id number] Hip Cocr Lfit Head V40 28/+4 - [id number] Implanted:Qty: 1 on 09/02/2020 by Gianni Hubbard MD at OR [facility] Right: Hip LUDY : ORTHOPAEDICS 11/15/2024 6260-9-228 / / [id number] Hip Head Bipol r [facility] 28x52 - [id number] Implanted:Qty: 1 on 09/02/2020 by Gianni Hubbard MD at OR [facility] Right: Hip LUDY : ORTHOPAEDICS 11/25/2024 UH1-52-28 / / [id number] Lens Intraoc 17.5 - [id number] - [id number] Implanted:Qty: 1 on 03/23/2022 by Rad Morgan MD at OR [facility] Left: Eye BAUSCH & LOMB 10/11/2026 [id number] / [id number] / [id number] Lens Intraoc 18.0 - [id number] - [id number] Implanted:Qty: 1 on 03/30/2022 by Rad Morgan MD at OR [facility] Right: Eye BAUSCH & LOMB 01/11/2027 [id number] / [id number] / [id number] documented as of this encounter Visit Diagnoses Diagnosis Confusional arousals- Primary documented in this encounter Advance Directives [...] Power of Attor jus? No Care Teams Sulfuric Acid Plant Supervisor Relationship Specialty Start Date End Date Kaiser Amanda MD [address] [place] [place] [address] PCP - General Family Medicine 04/11/21 documented as of this encounter
--- OUTSIDE RECORDS SUMMARY | 2024-01-29 20:41 | External Medical Summary | Summary of Care ---
Author Name Unknown Organization [facility] Address [address] [place] [address] Phone [phone] Care Team Providers Care Assistant Front End Manager Name Role Phone Kaiser Amanda MD Primary Care Provider [phone] [phone] Encounter Details Date Type Department Care Team (Late st Contact Info) Description 10/22/2023 3:45 PM EDT Scheduled Telephone Care Coordination and Integration [address] [place], [place] [phone] Laney Alonso, Community Health Fur Scraper [address], [place] [phone] Allergies Active Allergy Reactions Criticality Noted Date [...] [facility]),Type 2 diabetes mellitus with polyneuropathy (HCC) [...] at bedtime. 90 Capsule 3 10/22/2023 Active documented as of this encounter (statuses [...] mRNA, LNP-s, No Pre serve, 2-Dose Series ([facility] #2) 04/23/2021,08/09/2020,07/12/2020 Covid-19, Mrna, Lnp-s, Pf, B ivalent, 30 Mcg, IM, 12 yrs and above ([facility] #2) 05/19/2022 Pneumococcal Conjugate Vacc, 13 Valent (Prevnar) [...] Progress Notes * Laney Alonso, Community Health Fur Scraper - 10/22/2023 3:54 PM EDT Telemedicine visit: No Community Health Fur Scraper (MICHAEL) documentation: CHW placed PC to patient Spoke with spouse. Spouse reported that patient saw the urologist today. Everything was fine there.Patient is still having issues with his stomach and it getting upset whenever he eats something. Hethen gets diarrhea. He is going between not being able to move his bowels to moving them too much. Spouse really feels like he needs to go to a gastri water supply technician because she really feels like it is a stomach/intestinal issue going on. They are keeping him on Flomax as well. CHW encouraged spouse to reach out to CM with any concerns or questions. Laney Alonso- Community Health Worker 1 Support Services/[facility] [email or web address] documented in this encounter Plan of Treatment Upcoming Encounters Date Type Department Care Team (Late st Contact Info) Description 10/29/2023 2:30 PM EDT Office Visit CardiologyRolo [address] [place] [address] [place] [address] Rolo [facility] [address] [facility] [place] [address] 10/30/2023 4:30 PM EDT Home Visit Care Coordination and Integration [address] [facility] [address] Jess Nevarez [facility] Fur Scraper [address] [place] [address] 11/07/2023 2:10 PM EDT Anticoagulation Pharmacy, [place] [address] [place] [address] Pharmacist1, [facility] [address] [place] [address] 11/07/2023 2:30 PM EDT Office Visit Neurology, [place] [address] [phone] Ruth Lobo PA-C 21 [place] [address] 01/21/2024 2:00 PM EDT Office Visit Endocrinology Natalie Ramirez Dr [address] [place] [address] Sakina Jones MD [address] [place] [place] [address] 01/25/2024 3:30 PM EDT Office Visit MOHS Surgery [facility] [address] [place] [address] Laney Hogue MD 200 [place] [address] 02/25/2024 9:20 AM EDT Office Visit Family Practice, [place] [address] [place] [phone] Kaiser Amanda MD [address] [place] [place] [address] 10/21/2024 9:15 AM EDT Appointment Radiology, [facility] [address] [place] [address] 10/29/2024 9:45 AM EDT Office Visit Urology Rolo Colon [address] [place] [address] Bert Boogie Jr., MD [address] [place] [address] Scheduled Procedures Name Priority Associated Diagnoses Date/Ti [...] D LEVEL ONCE IN A LIFETIME-USE SMARTSET# 91289 Completed 07/26/2023, 02/26/2023, 01/23/2023, Additional history exists [...] this encounter Medical Devices Implanted Type Area C Python Developer Device Identifier Shelf Expiration Date Model / Serial / Lot Cement Bone Simplex Hv & G - [id number] Implanted:Qty: 2 on 09/02/2020 by iGanni Hubbard MD at OR [facility] Right: Hip LUDY : ORTHOPAEDICS 08/11/2021 6195-1-010 / / [id number] Spacer Ring Aclde Distal Lg 14 - [id number] Implanted:Qty: 1 on 09/02/2020 by Gianni Hubbard MD at OR [facility] Right: Hip LUDY : ORTHOPAEDICS 11/25/2024 5047-8854 / / Accolade C Cs 127 6 37/158 - [id number] Implanted:Qty: 1 on 09/02/2020 by Gianni Hubbard MD at OR [facility] Right: Hip LUDY : ORTHOPAEDICS 05/29/2023 6057-0637D / / [id number] Hip Cocr Lfit Head V40 28/+4 - [id number] Implanted:Qty: 1 on 09/02/2020 by Gianni Hubbard MD at OR [facility] Right: Hip LUDY : ORTHOPAEDICS 11/15/2024 6260-9-228 / / [id number] Hip Head Bipol Uhr Uni 28x52 - [id number] Implanted:Qty: 1 on 09/02/2020 by Gianni Hubbard MD at OR [facility] Right: Hip LUDY : ORTHOPAEDICS 11/25/2024 UH1-52-28 / / [id number] Lens Intraoc 17.5 - [id number] - [id number] Implanted:Qty: 1 on 03/23/2022 by Rad Morgan MD at OR [facility] Left: Eye BAUSCH & LOMB 10/11/2026 [id number] / [id number] / [id number] Lens Intraoc 18.0 - [id number] - [id number] Implanted:Qty: 1 on 03/30/2022 by Rad Morgan MD at OR [facility] Right: Eye BAUSCH & LOMB 01/11/2027 [id number] / [id number] / [id number] documented as of this encounter Advance Directives [...] Power of Attor jus? No Care Teams Assistant Front End Manager Relationship Specialty Start Date End Date Kaiser Amanda MD 21 [facility] [place] [address] PCP - General Family Medicine 04/11/21 documented as of this encounter
--- OUTSIDE RECORDS SUMMARY | 2024-01-29 20:41 | External Medical Summary | Summary of Care ---
Author Name Unknown Organization [facility] Address 100 [facility] [place] [address] Phone [phone] Care Team Providers Care Clinic Manager Name Role Phone Kaiser Amanda MD Primary Care Provider +1 [phone] Reason for Visit * Reason Comments Outpatient Testing Encounter Details Date Type Department Care Team (Late st Contact Info) Description 10/29/2023 3:30 PM EDT Laboratory Laboratory, [facility] [address] [place] [phone] [facility], Lab [address] [place] [address] Urination pain Allergies Active Allergy Reactions Criticality Noted Date Comments Cat Dander Itching 07/14/2016 documented as of this encounter (statuses as of 10/29/2023) Medications Medication Sig Dispensed Refills Start Date End Date Status Waterstone PharmaceuticalsTouch Ultra 2 w/Device KitIndications:Type 2 diabetes mellitus with hemoglobin A1c goal of less than 7.5% ([facility]) Testing blood sugars twice daily Dx: E11.9 1 Kit 11 06/06/2021 Active OneTouch Delica Lancets 30GIndications:Type 2 diabetes mellitus with hemoglobin A1c goal of less than 7.5% ([facility]),Type 2 diabetes mellitus with polyneuropathy ([facility]) Check BS once daily E11.9 [...] unspecified site 12/16/2018 04/11/2019 Severe dehydration 12/16/2018 08// 9 Hypercalcemia 12/16/2018 10/10/2023 Lactic acidosis 12/16/2018 [...] mRNA, LNP-s, No Pre serve, 2-Dose Series ([facility]) 04/23/2021,08/09/2020,07/12/2020 Covid-19, Mrna, Lnp-s, Pf, B ivalent, [...] Visit Care Coordination and Integration [address] [facility] [place] [address] Jess Nevarez [facility] Operating Room Assistant [address] [place] [address] 11/07/2023 2:10 PM EDT Anticoagulation Pharmacy, [place] D[place] Vásquez [address] Pharmacist1, [facility] [place] [address] 11/07/2023 2:30 PM EDT Office Visit Neurology, [place] [address] Ruth Lobo PA-C [address] [place] [address] 11/08/2023 8:15 AM EDT Appointment Radiology, [address] [address] 11/14/2023 1:30 PM EDT Office Visit Cardiology, [place] 400 [place] [address] Rolo [facility] Cardiology [address] [place] [address] 12/11/2023 2:00 PM EDT Office Visit Cardiology, [place] 400 [place] [address] Stefani Mooney CRNP [address] [place] [address] 01/21/2024 2:00 PM EDT Office Visit Endocrinology Natalie Ramirez Dr [address] [place] [phone] Sakina Jones MD 100 [place] [address] 01/25/2024 3:30 PM EDT Office Visit [facility] Surgery [facility] 200 [place] [address] Laney Hogue MD 200 [place] [address] 02/25/2024 9:20 AM EDT Office Visit Family [facility], [place] 21 [facility] [place] [phone] Kaiser Amanda MD 21 [facility] [place] [address] 10/21/2024 9:15 AM EDT Appointment Radiology, [facility] [address] 10/29/2024 9:45 AM EDT Office Visit Urology [place] Rolo Rinaldi [address] [place] [address] [place] [address] Bert Boogie Jr., MD [address] [place] [address] [place] [address] Pending Results Name Type Priority Associated Diagnoses Date /Time URINALYSIS, REFLEX TO MICROSCOPIC Lab Routine Urination pain 10/29/2023 3:24 PM EDT Scheduled Procedures Name Priority Associated Diagnoses Date/Ti [...] D LEVEL ONCE IN A LIFETIME-USE SMARTSET# 97349 Completed 07/26/2023, 02/26/2023, 01/23/2023, Additional history exists [...] encounter Medical Devices Implanted Type Area Check Weigher Device Identifier Shelf Expiration Date Model / Serial / Lot Cement Bone Simplex Hv & G - [id number] Implanted:Qty: 2 on 09/02/2020 by Gianni Hubbard MD at OR [facility] Right: Hip LUDY : ORTHOPAEDICS 08/11/2021 6195-1-010 / / [id number] Spacer Ring Aclde Distal Lg 14 - [id number] Implanted:Qty: 1 on 09/02/2020 by Gianni Hubbard MD at OR [facility] Right: Hip LUDY : ORTHOPAEDICS 11/25/2024 2070-2195 / / Accolade C Cs 127 6 37/158 - [id number] Implanted:Qty: 1 on 09/02/2020 by Gianni Hubbard MD at OR [facility] Right: Hip LUDY : ORTHOPAEDICS 05/29/2023 6057-0637D / / [id number] Hip Cocr Lfit Head V40 28/+4 - [id number] Implanted:Qty: 1 on 09/02/2020 by Gianni Hubbard MD at OR [facility] Right: Hip LUDY : ORTHOPAEDICS 11/15/2024 6260-9-228 / / [id number] Hip Head Bipol Uhr Uni 28x52 - [id number] Implanted:Qty: 1 on 09/02/2020 by Gianni Hubbard MD at OR [facility] Right: Hip LUDY : ORTHOPAEDICS 11/25/2024 UH1-52-28 / / [id number] Lens Intraoc 17.5 - [id number] - [id number] Implanted:Qty: 1 on 03/23/2022 by Rad Morgan MD at OR [facility] Left: Eye BAUSCH & LOMB 10/11/2026 [id number] / [id number] / [id number] Lens Intraoc 18.0 - [id number] - [id number] Implanted:Qty: 1 on 03/30/2022 by Rad Morgan MD at OR [facility] Right: Eye BAUSCH & LOMB 01/11/2027 [id number] / [id number] / [id number] documented as of this encounter Visit Diagnoses Diagnosis Urination pain Dysuria documented in this encounter Advance Directives [...] Power of Attor jus? No Care Teams Clinic Manager Relationship Specialty Start Date End Date Kaiser Amanda MD 21 [place] [address] PCP - General Family Medicine 04/11/21 documented as of this encounter
--- OUTSIDE RECORDS SUMMARY | 2024-01-29 20:42 | External Medical Summary | Summary of Care ---
Author Name Unknown Organization [facility] Address [address] [facility] [place] [address] Phone [phone] Care Team Providers Care Arabic Teacher Name Role Phone Kaiser Amanda MD Primary Care Provider [phone] Encounter Details Date Type Department Care Team (Late st Contact Info) Description 10/22/2023 [facility]phone [facility] [place] [address] Kaiser Amanda MD 21 [facility] [place] [address] Allergies Active Allergy Reactions Criticality Noted Date Comments Cat Dander Itching 07/14/2016 documented as of this encounter (statuses as of 10/22/2023) Medications Medication Sig Dispensed Refills Start Date End Date Status OneTouch Ultra 2 w/Device KitIndications:Type 2 diabetes mellitus with hemoglobin A1c goal of less than 7.5% ([facility]) Testing blood sugars twice daily Dx: E11.9 1 Kit 11 06/06/2021 Active OneTouch Delica Lancets 30GIndications:Type 2 diabetes mellitus with hemoglobin A1c goal of less than 7.5% ([facility]),Type 2 diabetes mellitus with polyneuropathy ([facility]) Check BS once daily E11.9 100 [...] hemoglobin A1c goal of less than 7.5% ([facility]) TAKE 1 TABLET BY MOUTH DAILY. [...] Tablet by mouth in the morning. Active Tamsulosin HCl 0.4 MG Oral Capsule (Flomax) Take 1 Capsule by mouth at bedtime. 30 Capsule 10/11/2023 4 Active Additional Information Patient taking differently:0.4 mg Oral HS,Takes in am, Reported on 10/17/2023 Polyethylene Glycol 3350 17 GM Oral Packet [...] dissolve on tongue. 20 Tablet 10/17/2023 Active documented as of this encounter (statuses [...] mRNA, LNP-s, No Pre serve, 2-Dose Series (reQwip) 04/23/2021,08/09/2020,07/12/2020 Covid-19, Mrna, Lnp-s, Pf, B ivalent, [...] Encounter - Kaiser Amanda MD - 10/22/2023 6:29 AM EDT Please advise stool study negative for c diff documented in this encounter Plan of Treatment Upcoming Encounters Date Type Department Care Team (Late st Contact Info) Description 10/22/2023 9:15 AM EDT Office Visit Urology Rolo Colon [address] [place] [address] Bert Boogie Jr., MD [address] [place] [address] 10/29/2023 2:30 PM EDT Office Visit CardiologyRolo [address] [place] [address] Rolo [facility] Cardiology [address] [place] [address] 10/30/2023 4:30 PM EDT Home Visit Care Coordination and Integration [address] [place] [address] Jess Nevarez [facility] Pharmacovigilance Specialist [address] [place] [address] 11/07/2023 2:10 PM EDT Anticoagulation Pharmacy, [address] [address] Pharmacist1, [facility] [place] 21 [place] [address] 11/07/2023 2:30 PM EDT Office Visit Neurology, [place] [address] [place] [address] Ruth Lobo PA-C [address] [place] [address] 01/21/2024 2:00 PM EDT Office Visit Endocrinology, [place] [address] [place] [address] Sakina Jones MD [address] [place] [address] 01/25/2024 3:30 PM EDT Office Visit [facility] 200 [place] [address] Laney Hogue MD 200 [place] [address] 02/25/2024 9:20 AM EDT Office Visit Family Practice, [place] 21 [facility] [place] [phone] Kaiser Amanda MD 21 [facility] [place] [address] Scheduled Procedures Name Priority Associated Diagnoses Date/Ti [...] 07/26/2023, 0 06/09/2022, 04/11/2021, Additional history exists GFR 10/09/2024 10/10/2023, 09/12, 10/08/2023, Additional history exists Albumin/Creatinine Ratio 10/17/2024 024, [...] D LEVEL ONCE IN A LIFETIME-USE SMARTSET# 53228 Completed 07/26/2023, 02/26/2023, 01/23/2023, Additional history exists [...] this encounter Medical Devices Implanted Type Area Case Manager Device Identifier Shelf Expiration Date Model / Serial / Lot Cement Bone Simplex Hv & G - [id number] Implanted:Qty: 2 on 09/02/2020 by Gianni Hubbard MD at OR [facility] Right: Hip LUDY : ORTHOPAEDICS 08/11/2021 6195-1-010 / / [id number] Spacer Ring Aclde Distal Lg 14 - [id number] Implanted:Qty: 1 on 09/02/2020 by Gianni Hubbard MD at OR [facility] Right: Hip LUDY : ORTHOPAEDICS 11/25/2024 3235-3759 / / Accolade C Cs 127 6 37/158 - [id number] Implanted:Qty: 1 on 09/02/2020 by Gianni Hubbard MD at OR [facility] Right: Hip LUDY : ORTHOPAEDICS 05/29/2023 6057-0637D / / [id number] Hip Cocr Lfit Head V40 28/+4 - [id number] Implanted:Qty: 1 on 09/02/2020 by Gianni Hubbard MD at OR [facility] Right: Hip LUDY : ORTHOPAEDICS 11/15/2024 6260-9-228 / / [id number] Hip Head Bipol Uhr Uni 28x52 - [id number] Implanted:Qty: 1 on 09/02/2020 by Gianni Hubbard MD at OR [facility] Right: Hip LUDY : ORTHOPAEDICS 11/25/2024 UH1-52-28 / / [id number] Lens Intraoc 17.5 - [id number] - [id number] Implanted:Qty: 1 on 03/23/2022 by Rad Morgan MD at OR [facility] Left: Eye BAUSCH & LOMB 10/11/2026 [id number] / [id number] / [id number] Lens Intraoc 18.0 - [id number] - [id number] Implanted:Qty: 1 on 03/30/2022 by Rad Morgan MD at OR [facility] Right: Eye BAUSCH & LOMB 01/11/2027 [id number] / [id number] / [id number] documented as of this encounter Advance Directives [...] Power of Attor jus? No Care Teams Arabic Teacher Relationship Specialty Start Date End Date Kaiser Amanda MD 21 [place] [address] PCP - General Family Medicine 04/11/21 documented as of this encounter
--- OUTSIDE RECORDS SUMMARY | 2024-01-29 20:42 | External Medical Summary | Summary of Care ---
Author Name Unknown Organization [facility] Address [address] [facility] [place] [address] Phone [phone] Care Team Providers Care Driller Machine Name Role Phone Kaiser Amanda MD Primary Care Provider +1 -[phone] Reason for Visit * Reason Comments Outpatient Testing Encounter Details Date Type Department Care Team (Late st Contact Info) Description 10/22/2023 9:40 AM EDT Laboratory Laboratory, [facility] [address] [place] [phone] [facility], Lab [address] [place] [address] Hodgkin lymphoma, unspecified, lymph nodes of axilla and upper limb (HCC); Hypercalcemia Allergies Active Allergy Reactions Criticality Noted Date Comments Cat Dander Itching 07/14/2016 documented as of this encounter (statuses as of 10/22/2023) Medications Medication Sig Dispensed Refills Start Date End Date Status OneTouch Ultra 2 w/Device KitIndications:Type 2 diabetes mellitus with hemoglobin A1c goal of less than 7.5% ([facility]) Testing blood sugars twice daily Dx: [...] THEN RINSE 120 mL 07/06/2023 Active OneTouch Vertyler In Vitro Strip (Glucose [...] mRNA, LNP-s, No Pre serve, 2-Dose Series (Clever) 04/23/2021,08/09/2020,07/12/2020 Covid-19, Mrna, Lnp-s, Pf, B ivalent, [...] 10/29/2023 2:30 PM EDT Office Visit Cardiology, [place] [address] [place] [address] [facility] Cardiology [address] [place] [address] 10/30/2023 4:30 PM EDT Home Visit Care Coordination and Integration [address] [place] [address] Jess Nevarez Community [facility] Director Trial [address] [place] [address] 11/07/2023 2:10 PM EDT Anticoagulation Pharmacy, [place] [address] [address] Pharmacist1, [facility] [address] [address] 11/07/2023 2:30 PM EDT Office Visit Neurology, [place] [address] [place] [address] Ruth Lobo PA-C 21 [place] [address] 01/21/2024 2:00 PM EDT Office Visit Endocrinology [address] [place] [phone] Sakina Jones MD [address] [place] [id number] 01/25/2024 3:30 PM EDT Office Visit [facility] Surgery [facility] [address] [place] [address] Laney Hogue MD 200 [place] [address] 02/25/2024 9:20 AM EDT Office Visit [facility] [address] [place] [phone] Kaiser Amanda MD 21 [place] [address] 10/21/2024 9:15 AM EDT Appointment Radiology, [address] [place] [address] 10/29/2024 9:45 AM EDT Office Visit Urology [place] [address] [address] Bert Boogie Jr., MD [address] [place] [address] Pending Results Name Type Priority Associated Diagnoses Date /Time BASIC METABOLIC PANEL Lab STAT Hodgkin lymphoma, unspecified, lymph nodes of axilla and upper limb (HCC) Hypercalcemia 10/22/2023 9:47 AM EDT [id number], SERUM Lab STAT Hodgkin lymphoma, unspecified, lymph nodes of axilla and upper limb (HCC) Hypercalcemia 10/22/2023 9:47 AM EDT CBC WITH WBC DIFFERENTIAL Lab STAT Hodgkin lymphoma, unspecified, lymph nodes of axilla and upper limb (HCC) Hypercalcemia 10/22/2023 9:47 AM EDT GGTP Lab STAT Hodgkin lymphoma, unspecified, lymph nodes of axilla and upper limb (HCC) Hypercalcemia 10/22/2023 9:47 AM EDT HEPATIC FUNCTION PANEL Lab STAT Hodgkin lymphoma, unspecified, lymph nodes of axilla and upper limb (HCC) Hypercalcemia 10/22/2023 9:47 AM EDT IMMUNOGLOBULIN QUANTITATIVE Lab STAT Hodgkin lymphoma, unspecified, lymph nodes of axilla and upper limb (HCC) Hypercalcemia 10/22/2023 9:47 AM EDT LD Lab STAT Hodgkin lymphoma, unspecified, lymph nodes of axilla and upper limb (HCC) Hypercalcemia 10/22/2023 9:47 AM EDT MAGNESIUM Lab STAT Hodgkin lymphoma, unspecified, lymph nodes of axilla and upper limb (HCC) Hypercalcemia 10/22/2023 9:47 AM EDT PHOSPHORUS Lab STAT Hodgkin lymphoma, unspecified, lymph nodes of axilla and upper limb (HCC) Hypercalcemia 10/22/2023 9:47 AM EDT CBC Lab STAT Hodgkin lymphoma, unspecified, lymph nodes of axilla and upper limb (HCC) Hypercalcemia 10/22/2023 9:47 AM EDT DIFFERENTIAL, AUTOMATED Lab STAT Hodgkin lymphoma, unspecified, lymph nodes of axilla and upper limb (HCC) Hypercalcemia 10/22/2023 9:47 AM EDT Scheduled Procedures Name Priority Associated Diagnoses [...] D LEVEL ONCE IN A LIFETIME-USE SMARTSET# [id number] Completed 07/26/2023, 02/26/2023, 01/23/2023, Additional history exists [...] this encounter Medical Devices Implanted Type Area Geriatric Nurse Device Identifier Shelf Expiration Date Model / Serial / Lot Cement Bone Simplex Hv & G - [id number] Implanted:Qty: 2 on 09/02/2020 by Gianni Hubbard MD at OR [facility] Right: Hip LUDY : ORTHOPAEDICS 08/11/2021 6195-1-010 / / [id number] Spacer Ring Aclde Distal Lg 14 - [id number] Implanted:Qty: 1 on 09/02/2020 by Gianni Hubbard MD at OR [facility] Right: Hip LUDY : ORTHOPAEDICS 11/25/2024 [id number] / / Accolade C Cs 127 6 37/158 - [id number] Implanted:Qty: 1 on 09/02/2020 by Gianni Hubbard MD at OR [facility] Right: Hip LUDY : ORTHOPAEDICS 05/29/2023 6057-0637D / / [id number] Hip Cocr Lfit Head V40 28/+4 - [id number] Implanted:Qty: 1 on 09/02/2020 by Gianni Hubbard MD at OR [facility] Right: Hip LUDY : ORTHOPAEDICS 11/15/2024 6260-9-228 / / [id number] Hip Head Bipol Uhr Uni 28x52 - [id number] Implanted:Qty: 1 on 09/02/2020 by Gianni Hubbard MD at OR [facility] Right: Hip LUDY : ORTHOPAEDICS 11/25/2024 UH1-52-28 / / [id number] Lens Intraoc 17.5 - [id number] - [id number] Implanted:Qty: 1 on 03/23/2022 by Rad Morgan MD at OR [facility] Left: Eye BAUSCH & LOMB 10/11/2026 [id number] / [id number] / [id number] Lens Intraoc 18.0 - [id number] - [id number] Implanted:Qty: 1 on 03/30/2022 by Rad Morgan MD at OR [facility] Right: Eye BAUSCH & LOMB 01/11/2027 [id number] / [id number] / [id number] documented as of this encounter Visit Diagnoses Diagnosis Hodgkin lymphoma, unspecified, lymph nodes of axilla and upper limb (HCC) Hypercalcemia documented in this encounter Advance Directives * [...] Power of Attor jus? No Care Teams Driller Machine Relationship Specialty Start Date End Date Kaiser Amanda MD [address] [address] PCP - General Family Medicine 04/11/21 documented as of this encounter
--- OUTSIDE RECORDS SUMMARY | 2024-01-29 20:42 | External Medical Summary ---
Author Name Unknown Address Unknown Organization K01:[facility] - [address] [place] [address] Laboratory Report Ordering Provider Test Date Status BULMARO MATHIS 10/22/2023 09:47:33 Final Observation Date Value Abnormality Reference (Units ) Status IgG 10/22/2023 09:47:33 684 Below low normal 700 -1600 (mg/dL) Final IgA 10/22/2023 09:47:33 449 Above high normal 70 -400 (mg/dL) Final IgM 10/22/2023 09:47:33 51 40-230 (mg /dL) Final Performing Location [facility] - [address] [place] [address]
--- OUTSIDE RECORDS SUMMARY | 2024-01-29 20:42 | External Medical Summary ---
Author Name Unknown Address Unknown Organization K1F:[facility] - [address] [place] [address] Laboratory Report Ordering Provider Test Date Status BULMARO MATHIS 10/22/2023 09:47:33 Final Observation Date Value Abnormality Reference (Units ) Status Magnesium 10/22/2023 09:47:33 1.1 Below low normal 1.5 -2.6 (mg/dL) Final Performing Location [facility] - [address] [place] [place] [address]
--- OUTSIDE RECORDS SUMMARY | 2024-01-29 20:42 | External Medical Summary | Summary of Care ---
Author Name Unknown Organization [facility] Address [address] [facility] [address] Phone [phone] Care Team Providers Care Flat Cutter Name Role Phone Kaiser Amanda MD Primary Care Provider +1 [phone] Reason for Visit * Reason Onset Date Comments Advice 10/15/2023 Encounter Details Date Type Department Care Team (Late st Contact Info) Description 10/15/[address] [facility] [place] [address] [facility] [place] [phone] Kaiser Amanda MD 21 [facility] [place] [address] Advice Allergies Active Allergy Reactions Criticality Noted Date Comments Cat Dander Itching 07/14/2016 documented as of this encounter (statuses as of 10/16/2023) Medications Medication Sig Dispensed Refills Start Date End Date Status OneStopWeb Ultra 2 w/Device KitIndications:Type 2 diabetes mellitus [...] less than 7.5% ([facility]) TAKE 1 TABLET BY MOUTH [...] Tablet by mouth in the morning. Active Acetaminophen 325 MG Oral Tablet (Tylenol) Take 3 Tablets by mouth every 6 hours. As needed 10/11/2023 Active Tamsulosin HCl 0.4 MG Oral Capsule (Flomax) Take 1 Capsule by mouth at bedtime. 30 Capsule 10/11/2023 4 Active Polyethylene Glycol 3350 17 GM [...] the evening. 90 Tablet 10/11/2023 4 Active documented as of this encounter (statuses as of 10/16/2023) Active Problems Problem Noted Date Diagnosed Date [...] as of this encounter (statuses as of 10/16/2023) Resolved Problems Problem Noted Date Diagnosed Date [...] as of this encounter (statuses as of 10/16/2023) Immunizations Name Administration Dates Next Due COVID-19 mRNA, LNP-s, No Pre serve, 2-Dose Series ([email or web address]) 04/23/2021,08/09/2020,07/12/2020 Covid-19, Mrna, Lnp-s, Pf, B ivalent, 30 Mcg, IM, 12 yrs and above ([email or web address]) 05/19/2022 Pneumococcal Conjugate Vacc, 13 Valent (Prevnar) [...] encounter Miscellaneous Notes * Telephone Encounter - Cynthia Pineda LPN - 10/16/2023 11:26 AM EDT Patient has been informed of below message and verbalized understanding. * Telephone Encounter - Kaiser Amanda MD - 10/16/2023 6:18 AM EDT Diarrhea/loose stools is common after days of constipation. Should slowly resume normal diet, encourage good hydration, and will discuss tomorow * Telephone Encounter - Afsaneh Gutierrez RN - 10/15/2023 4:38 PM EDT Pt has f/u appt scheduled for 10/[address] Amanda. Please advise with any further recommendations Pt was admitted 10/05-10/10 to [facility] reports he Went to hospital d/t almost passed out was walking backto bedroom and fell onto bed. Pt reports he was having issues with bowels in hospital gave medication in hospital to get bowels to move, "started eating and everything is going through" Bowels started moving night, reports liquid stools, going ~3-4 times, Sat night reports going non stop C/o dull ache stomach pain above naval Ate Dry toast yesterday and chicken noodle soup, reports emesis after eating chicken noodle soup Today bowels have emptied quickly at noon Spouse Gave him pepto bismol chewable 2 tablets Sunday PM- nothing since Staying hydrated with gingerale and water HH is currently in home Spouse questioning if he s/s are related to an undiagnosed stomach issue, reports he has not seen gastroenterology in the past. Encouraged small freq meals with BRAT diet, frequent small sips of fluid, call if s/s persist or worsen Review of Systems: Review of Systems Constitutional: Positive for appetite change (decreased appetite). Negative for chills and fever. Respiratory: Negative for cough and shortness of breath. Cardiovascular: Negative for leg swelling. Gastrointestinal: Positive for abdominal distention ("comes and goes"), abdominal pain, diarrhea, nausea and vomiting (Yesterday after eating chicken noodle soup). Genitourinary: Positive for dysuria. Neurological: Negative for dizziness and headaches. documented in this encounter Plan of Treatment Upcoming Encounters Date Type Department Care Team (Late st Contact Info) Description 10/17/2023 10:40 AM EDT Anticoagulation Pharmacy, [place] [address] [address] Pharmacist1, [facility] [place] [address] [address] 10/17/2023 11:00 AM EDT Office Visit Family [facility], [place] [address] [phone] Kaiser Amanda MD [address] [address] 10/22/2023 9:15 AM EDT Office Visit Urology [place] [address] [address] Bert Boogie Jr., MD [address] [place] [address] 10/29/2023 2:30 PM EDT Office Visit Cardiology, [place] [address] [place] [address] [facility] [address] [place] [address] 11/07/2023 2:30 PM EDT Office Visit Neurology, [place] [address] [place] [address] Ruth Lobo PA-C [address] [place] [address] 01/21/2024 2:00 PM EDT Office Visit Endocrinology, [place] [address] [place], [place] [phone] Sakina Jones MD [address] [place] [address] 01/25/2024 3:30 PM EDT Office Visit [facility] Surgery [facility] [address] [place] [address] Laney Hogue MD 200 [place] [address] 02/25/2024 9:20 AM EDT Office Visit Family Practice, [place] [address] [phone] Kaiser Amanda MD [address] [address] Scheduled Procedures Name Priority Associated Diagnoses Date/Ti me COLONOSCOPY FLEXIBLE PROXIMA L DIAGNOSTIC Recall History of colonic polyps Health Maintenance Due Date Last Done Comments Cologuard 11/28/1995 Fecal Occult Blood Test 11/28/1995 Sigmoidoscopy 11/28/1995 COVID-19 Vaccine ( season) 2023 05/19/2022, 04/23/2021, 08/09/2020, Additional history exists Diabetic Eye Exam 12/22/2023 12/21/2022, , 12/21/2022, Additional history exists HOME BP CUFF VALIDATION YEARLY 12/27/2023 12/26/2022 Albumin/Creatinine Ratio 01/11/2024 023, 07/07/2021, 12/16/2018, Additional history exists HbA1c 01/26/2024 07/26/2023, 01/12, 04/16/2022, Additional history exists B-12 07/25/2024 07/26/2023, 02/13, 11/15/2021, Additional history exists Diabetic Foot Exam 07/25/2024 07/26/2023, 0 06/09/2022, 04/11/2021, Additional history exists GFR 10/09/2024 10/10/2023, 09/12, 10/08/2023, Additional history exists DXA Scan 01/25/2025 01/25/2023, [...] D LEVEL ONCE IN A LIFETIME-USE SMARTSET# [id number] Completed 07/26/2023, 02/26/2023, 01/23/2023, Additional history exists [...] encounter Medical Devices Implanted Type Area Electrical Contractor Device Identifier Shelf Expiration Date Model / Serial / Lot Cement Bone Simplex Hv & G - [id number] Implanted:Qty: 2 on 09/02/2020 by Gianni Hubbard MD at OR [facility] Right: Hip LUDY : ORTHOPAEDICS 08/11/2021 6195-1-010 / / [id number] Spacer Ring Aclde Distal Lg 14 - [id number] Implanted:Qty: 1 on 09/02/2020 by Gianni Hubbard MD at OR [facility] Right: Hip LUDY : ORTHOPAEDICS 11/25/2024 0538-8335 / / Accolade C Cs 127 6 37/158 - [id number] Implanted:Qty: 1 on 09/02/2020 by Gianni Hubbard MD at OR [facility] Right: Hip LUDY : ORTHOPAEDICS 05/29/2023 6057-0637D / / [id number] Hip Cocr Lfit Head V40 28/+4 - [id number] Implanted:Qty: 1 on 09/02/2020 by Gianni Hubbard MD at OR [facility] Right: Hip LUDY : ORTHOPAEDICS 11/15/2024 6260-9-228 / / [id number] Hip Head Bipol Uhr Uni 28x52 - [id number] Implanted:Qty: 1 on 09/02/2020 by Gianni Hubbard MD at OR [facility] Right: Hip LUDY : ORTHOPAEDICS 11/25/2024 UH1-52-28 / / [id number] Lens Intraoc 17.5 - [id number] - [id number] Implanted:Qty: 1 on 03/23/2022 by Rad Morgan MD at OR [facility] Left: Eye BAUSCH & LOMB 10/11/2026 [id number] / [id number] / [id number] Lens Intraoc 18.0 - [id number] - [id number] Implanted:Qty: 1 on 03/30/2022 by Rad Morgan MD at [facility] Right: Eye BAUSCH & LOMB 01/11/2027 [id number] / [id number] / [id number] documented as of this encounter Advance Directives [...] Power of Attor jus? No Care Teams Flat Cutter Relationship Specialty Start Date End Date Kaiser Amanda MD [address] [address] PCP - General Family Medicine 04/11/21 documented as of this encounter
--- OUTSIDE RECORDS SUMMARY | 2024-01-29 20:42 | External Medical Summary | Summary of Care ---
Author Name Unknown Organization [facility] Address [address] [place] [address] Phone [phone] Care Team Providers Care Putty Remover Name Role Phone Kaiser Amanda MD Primary Care Provider +1 [phone] Encounter Details Date Type Department Care Team (Late st Contact Info) Description 10/22/2023 Orders Only Laboratory, [facility] [address] [facility] [place] [address] Rubén Morales MD [address] [place] [address] Hodgkin lymphoma, unspecified, lymph nodes of axilla and upper limb (HCC)*; Hypercalcemia Allergies Active Allergy Reactions Criticality Noted [...] mRNA, LNP-s, No Pre serve, 2-Dose Series (Plivo) 04/23/2021,08/09/2020,07/12/2020 Covid-19, Mrna, Lnp-s, Pf, B ivalent, [...] 10/29/2023 2:30 PM EDT Office Visit Cardiology, [place] [address] [facility] [place] [address] [facility] Cardiology 400 [facility] [place] [address] 10/30/2023 4:30 PM EDT Home Visit Care Coordination and Integration [address] [place] [address] [facility] Sitter [address] [place] [address] 11/07/2023 2:10 PM EDT Anticoagulation Pharmacy, [place] [address] [address] Pharmacist1, [facility] [address] [address] 11/07/2023 2:30 PM EDT Office Visit Neurology, [place] [address] [place] [address] Ruth Lobo PA-C 21 [facility] [place] [address] 01/21/2024 2:00 PM EDT Office Visit Endocrinology [address] [place], [place] [phone] Sakina Jones MD [address] [place] [address], [place] [address] 01/25/2024 3:30 PM EDT Office Visit [facility] Surgery [facility] [address] [place] [address] Laney Hogue MD 200 [place] [address] 02/25/2024 9:20 AM EDT Office Visit [facility] [address] [place] [phone] Kaiser Amanda MD [address] [place] [address] 10/21/2024 9:15 AM EDT Appointment Radiology, [address] [place] [address] 10/29/2024 9:45 AM EDT Office Visit Urology [address] Rinaldi [place] [address] [facility] [address] [address] Bert Boogie Jr., MD [address] [facility] [address] [place] [place] [address] Pending Results Name Type Priority Associated Diagnoses Date /Time BASIC METABOLIC PANEL Lab STAT Hodgkin lymphoma, unspecified, lymph nodes of axilla and upper limb (HCC) Hypercalcemia 10/22/2023 9:47 AM EDT [id number], SERUM Lab STAT Hodgkin lymphoma, unspecified, lymph [...] (HCC) Hypercalcemia 10/22/2023 9:47 AM EDT Scheduled Orders Name Type Priority Associated Diagnoses Orde r Schedule BASIC METABOLIC PANEL Lab STAT Hodgkin lymphoma, unspecified, lymph nodes of axilla and upper limb (HCC) Hypercalcemia Expected: 10/22/2023, Expires: 10/21/2024 [id number], SERUM Lab STAT Hodgkin lymphoma, unspecified, lymph nodes of axilla and upper limb (HCC) Hypercalcemia Expected: 10/22/2023, Expires: 10/21/2024 CBC WITH WBC DIFFERENTIAL Lab STAT Hodgkin lymphoma, unspecified, lymph nodes of axilla and upper limb (HCC) Hypercalcemia Expected: 10/22/2023, Expires: 10/21/2024 GGTP Lab STAT Hodgkin lymphoma, unspecified, lymph nodes of axilla and upper limb (HCC) Hypercalcemia Expected: 10/22/2023, Expires: 10/21/2024 HEPATIC FUNCTION PANEL Lab STAT Hodgkin lymphoma, unspecified, lymph nodes of axilla and upper limb (HCC) Hypercalcemia Expected: 10/22/2023, Expires: 10/21/2024 IMMUNOGLOBULIN QUANTITATIVE Lab STAT Hodgkin lymphoma, unspecified, lymph nodes of axilla and upper limb (HCC) Hypercalcemia Expected: 10/22/2023, Expires: 10/21/2024 LD Lab STAT Hodgkin lymphoma, unspecified, lymph nodes of axilla and upper limb (HCC) Hypercalcemia Expected: 10/22/2023, Expires: 10/21/2024 MAGNESIUM Lab STAT Hodgkin lymphoma, unspecified, lymph nodes of axilla and upper limb (HCC) Hypercalcemia Expected: 10/22/2023, Expires: 10/21/2024 PHOSPHORUS Lab STAT Hodgkin lymphoma, unspecified, lymph nodes of axilla and upper limb (HCC) Hypercalcemia Expected: 10/22/2023, Expires: 10/21/2024 Scheduled Procedures Name Priority Associated Diagnoses Date/Ti [...] D LEVEL ONCE IN A LIFETIME-USE SMARTSET# 07469 Completed 07/26/2023, 02/26/2023, 01/23/2023, Additional history exists [...] this encounter Medical Devices Implanted Type Area Deicer Finisher Device Identifier Shelf Expiration Date Model / Serial / Lot Cement Bone Simplex Hv & G - [id number] Implanted:Qty: 2 on 09/02/2020 by Gianni Hubbard MD at OR [facility] Right: Hip LUDY : ORTHOPAEDICS 08/11/2021 6195-1-010 / / [id number] Spacer Ring Aclde Distal Lg 14 - [id number] Implanted:Qty: 1 on 09/02/2020 by Gianni Hubbard MD at OR [facility] Right: Hip LUDY : ORTHOPAEDICS 11/25/2024 1894-2495 / / Accolade C Cs 127 6 37/158 - [id number] Implanted:Qty: 1 on 09/02/2020 by Gianni Hubbard MD at OR [facility] Right: Hip LUDY : ORTHOPAEDICS 05/29/2023 6057-0637D / / [id number] Hip Cocr Lfit Head V40 28/+4 - [id number] Implanted:Qty: 1 on 09/02/2020 by Gianni Hubbard MD at OR [facility] Right: Hip LUDY : ORTHOPAEDICS 11/15/2024 6260-9-228 / / [id number] Hip Head Bipol Uhr Uni 28x52 - [id number] Implanted:Qty: 1 on 09/02/2020 by Gianni Hubbard MD at OR [facility] Right: Hip LUDY : ORTHOPAEDICS 11/25/2024 UH1-52-28 / / [id number] Lens Intraoc 17.5 - [id number] - [id number] Implanted:Qty: 1 on 03/23/2022 by Rad Morgan MD at OR [facility] Left: Eye BAUSCH & LOMB 10/11/2026 [id number] / [id number] / [id number] Lens Intraoc 18.0 - [id number] - [id number] Implanted:Qty: 1 on 03/30/2022 by Rad Morgan MD at OR [facility] Right: Eye BAUSCH & LOMB 01/11/2027 [id number] / [id number] / [id number] documented as of this encounter Visit Diagnoses Diagnosis Hodgkin lymphoma, unspecified, lymph nodes of axilla and upper limb (HCC)- Primary Hypercalcemia documented in this encounter Advance Directives [...] Power of Attor jus? No Care Teams Putty Remover Relationship Specialty Start Date End Date Kaiser Amanda MD [address] [address] PCP - General Family Medicine 04/11/21 documented as of this encounter
--- OUTSIDE RECORDS SUMMARY | 2024-01-29 20:42 | External Medical Summary ---
Author Name Unknown Address Unknown Organization K1F:LABORATORY [facility] - [address] [place] [address] Laboratory Report Ordering Provider Test Date Status BULMARO MATHIS 10/22/2023 09:47:33 Final Observation Date Value Abnormality Reference (Units ) Status WBC, Total 10/22/2023 09:47:33 8.70 4.00-10.80 (K/uL) Final RBC 10/22/2023 09:47:33 4.19 4.50-5.25 (M/uL) Final Hemoglobin 10/22/2023 09:47:33 13.0 Below low normal 14.0-16.8 (g/dL) Final HCT 10/22/2023 09:47:33 39.2 Below low normal 40.0-48.4 (%) Final MCV 10/22/2023 09:47:33 93.6 82.0-99.5 (fL) Final MCH 10/22/2023 09:47:33 31.0 27.0-34.0 (pg) Final MCHC 10/22/2023 09:47:33 33.2 32.0-36.0 (g/dL) Final RDW 10/22/2023 09:47:33 13.3 11.5-15.5 (%) Final Platelets 10/22/2023 09:47:33 225 140-400 (K/uL) Final MPV 10/22/2023 09:47:33 9.4 6.6-11.1 (fL) Final Nucleated erythrocytes/100 leukocytes [Ratio] in Blood by Automated count 10/22/2023 09:47:33 0 <=0 (/100 WBCs) Final Performing Location [facility] - [address] [place] [address]
--- OUTSIDE RECORDS SUMMARY | 2024-01-29 20:42 | External Medical Summary ---
Author Name Unknown Address Unknown Organization : Laboratory Report Ordering Provider Test Date Status LINWOOD IRBY 10/17/2023 10:33:23 Final Therapeutic ranges for non-o perative patients:
Prophylaxsis/treatment of DVT: (Range:2.0-3.0)
Treatment of pulmonary embolism:(Range:2.0-3.0)
Prevention of systemic embolism from:
-tissue heart valves
-acute myocardial infarction
-valvular heart disease
-atrial fibrillation
(Range: 2.0-3.0)
Mechanical prosthetic valves: (Range: 2.5-3.5) Observation Date Value Abnormality Reference (Units ) Status INR in Capillary blood by Coagulation assay 10/17/2023 10:33:23 2.3 (INR) Final Performing Location
--- OUTSIDE RECORDS SUMMARY | 2024-01-29 20:42 | External Medical Summary | Summary of Care ---
Author Name Unknown Organization [facility] Address [address] [facility] [place] [address] Phone [phone] Care Team Providers Care Rangelands Conservation Laborer Name Role Phone Zaire Urias MD Primary Care Provider [phone] Reason for Visit * Reason Comments Follow Up * Evaluate & Treat - Unlimited Visits (Within 10 days (routine)) - Authorized Specialty Diagnoses / Procedures Referred By Fauzia oconnor Referred To Contact Urology Diagnoses BPH with urinary obstruction Zaire Urias MD 21 [facility] [place] [address] Referral ID Status Reason Start Date Expiration Date Visits Requested Visits Authorized [id number] Authorized Specialty Services Required 07/26/[phone] Encounter Details Date Type Department Care Team (Late st Contact Info) Description 10/22/2023 9:15 AM EDT Office Visit Urology Rolo Colon [address] [place] [address] Bert Boogie Jr., MD [address] [place] [address] BPH with obstruction/lower urinary tract symptoms* Allergies Active Allergy Reactions Criticality Noted Date Comments Cat Dander Itching 07/14/2016 documented as of this encounter (statuses as of 10/22/2023) Medications Medication Sig Dispensed Refills Start Date End Date Status MedCPUuch Ultra 2 w/Device KitIndications:Type 2 diabetes mellitus with hemoglobin A1c goal of less than 7.5% (HCC) Testing blood sugars twice daily Dx: E11.9 1 Kit 11 06/06/2021 Active MedCPUuch Delica Lancets 30GIndications:Type 2 diabetes mellitus with [...] MINUTES, THEN RINSE 120 mL 07/06/2023 Active MedCPUuch Verio In Vitro Strip (Glucose Blood)Indications:T ype [...] at bedtime. 90 Capsule 3 10/22/2023 Active Tamsulosin HCl 0.4 MG Oral Capsule [...] as of this encounter Progress Notes * Bert Boogie Jr., MD - 10/22/2023 8:55 AM EDT [id number] PCP: ZAIRE URIAS [address] [place] [id number] Lewis Alarcon is a 72 year old male, who presents in referral for evaluation of BPH with nocturia managed with alpha marek. He has some dysuria but negative cultures. He also is off the finasteride. Since that time the physicians at [facility] stopped his finasteride and put a catheter in for 2 weeks and put him back on Flomax. He is still having issues voiding. Current Outpatient Medications Medication Sig Dispense Refill miCab Ultra 2 w/Device Kit Testing blood sugars twice daily Dx: E11.9 1 Kit 11 TeamlyTouch Delica Lancets 30G Check BS once daily [...] as needed for flares 60 g 2 Ketoconazole 2 % External Shampoo (Nizoral) APPLY TO SCALP AND EYEBROWS DAILY- LATHER, WAIT 5 MINUTES, THEN RINSE 120 mL 0 miCab Verio In Vitro Strip (Glucose Blood) USE [...] 1 Tablet by mouth in the morning. Tamsulosin HCl 0.4 MG Oral Capsule (Flomax) Take 1 Capsule by mouth at bedtime. (Patient taking differently: Take 1 Capsule by mouth at bedtime. Takes in am) 30 Capsule 0 Polyethylene Glycol 3350 17 GM Oral Packet (Miralax) Mix 1 Packet in 4 to 8 ounces of any beverage and drink by mouth daily as needed for Constipation. 30 Packet 1 Midodrine HCl 5 MG Oral Tablet (Proamatine) Take 1 Tablet by mouth in the morning and 1 Tablet at noon and 1 Tablet in the evening. 90 Tablet 0 Ondansetron 4 MG Oral Tablet Disintegrating (Zofran) Place 1 Tablet on tongue every 8 hours as needed for Nausea. dissolve on tongue. 20 Tablet 0 No current facility-administered medications for this visit. Review of patient's allergies indicates: Allergen Reactions Cat Dander Itching Social History: Social History Tobacco Use Smoking status: Never Smokeless tobacco: Never Substance Use Topics Alcohol use: Yes Comment: rarely Vaping/E-Cigarette Use Vaping/E-Cigarette Use Never User Vaping/E-Cigarette Substances Vaping/E-Cigarette Devices Past Surgical History: Procedure Laterality Date COLONOSCOPY, DIAGNOSTIC (RECTUM) N/A 03/16/2022 diverticulosis sigmoid, descending and transverse colon/non-bleeding internal hemorrhoids/hypertrophied anal papilla/biopsies show adenomatous polyps/recall 3 years/COLONOSCOPY FLEXIBLE PROXIMAL DIAGNOSTIC performed by John Gordillo MD at OR [facility] INCISIONAL HERNIA REPAIR, LAP, REDUCIBLE left inguinal and umbelical INFORMATION 05/14/1988 lymph node removal KNEE ARTHROSCOPY/SURGERY PARTIAL HIP REPLACEMENT & PROSTH Right 09/02/2020 HEMIARTHROPLASTY HIP performed by Gianni Hubbard MD at OR [facility] REMOVE CATARACT, INSERT LENS PROSTH Left 03/23/2022 LEFT EXTRACAPSULAR CATARACT REMOVAL WITH INTRAOCULAR LENS performed by Rad Morgan MD at OR [facility] REMOVE CATARACT, INSERT LENS PROSTH Right 03/30/2022 RIGHT EXTRACAPSULAR CATARACT REMOVAL WITH INTRAOCULAR LENS performed by Rad Morgan MD at [facility] REMOVE TONSILS & ADENOIDS, AGE 12+ UMBIL HERNIA REPAIR (INCARCERATED) AGE 5+YR Patient Active Problem List Diagnosis Type 2 diabetes mellitus with polyneuropathy (HCC) BPH without obstruction/lower urinary tract symptoms Depression with anxiety Type 2 diabetes mellitus with hemoglobin A1c goal of less than 7.5% (HCC) History of Hodgkin's disease Hyperlipidemia with target LDL less than 100 Essential hypertension with goal blood pressure less than 130/80 History of DVT (deep vein thrombosis) History of pulmonary embolism Ambulatory dysfunction Anticoagulated on warfarin Hyperparathyroidism (HCC) Unspecified injury at unspecified level of cervical spinal cord, sequela (HCC) S/P right hip fracture Orthostatic hypotension Osteoporosis Dysautonomia (HCC) Past Surgical History: no changes Past Medical History: no changes Patient's Family History: no changes GENERAL EXAM: Alert and oriented x3 and no acute distress ABDOMEN: negative, Abdomen soft, non-tender. BS normal, No masses, organomegaly, hernia RECTAL EXAM: deferred. GENITAL EXAM: Deferred Impression/Plan: He has an enlarged prostate or BPH. It is a condition where the gland can obstructthe flow of urine and create voiding dysfunction and possible complications like bleeding, retention of urine, and infections. We often treat with medications either alpha blockers to relax the glandor 5ARI's to shrink the gland. We discussed each of these and the risks and benefits. They can be used together for slightly better results. Surgical options include less invasive office procedures or surgical options like TURP or PVP for more difficult situations. He states that he only voids 4-5 times daily on the current medication. Bert Boogie Jr, MD 8:55 AM 10/22/2023 documented in this encounter Nursing Notes * Mónica Collier LPN - 10/22/2023 8:57 AM EDT Chief Complaint Patient presents with Follow Up Pt presents for BPH with LUTS and nocturia. Pt states he is having burning with urination since thefoley was removed in 09/21/23. Pt also c/o lower abd pain. Pt can;t tell if he is emptying each timehe voids. Denies blood in urine. Culture from 10/18/23 neg for infection. Taking flomax. documented in this encounter Plan of Treatment Upcoming Encounters Date Type Department Care Team (Late st Contact Info) Description 10/29/2023 2:30 PM EDT Office Visit Cardiology, [place] [address] [facility] [place] [address] [facility] [address] [place] [address] 10/30/2023 4:30 PM EDT Home Visit Care Coordination and Integration [address] [facility] [place] [address] Jess Nevarez [facility] Health Box Office Agent [address] [place] [address] 11/07/2023 2:10 PM EDT Anticoagulation Pharmacy, [place] 21 [place] [address] Pharmacist1, [facility] 21 [place] [address] 11/07/2023 2:30 PM EDT Office Visit Neurology, [place] 21 [place] [address] Ruth Lobo PA-C 21 [place] [address] 01/21/2024 2:00 PM EDT Office Visit Endocrinology [address] [place] [address] Sakina Jnoes MD [address] [place] [facility] [place] [address] 01/25/2024 3:30 PM EDT Office Visit [facility] 200 [facility] [place] [address] Laney Hogue MD 200 [place], [place] [phone] 02/25/2024 9:20 AM EDT Office Visit [facility] [place] [facility] [phone] Zaire Urias MD [facility] [address] 10/21/2024 9:15 AM EDT Appointment Radiology, [address] [place] [address] 10/29/2024 9:45 AM EDT Office [facility] [place] [facility] [address] [place] [address] Bert Boogie Jr., MD 27 [facility] [address] [place] [address] Scheduled Orders Name Type Priority Associated Diagnoses Orde r Schedule US RENAL Medical Imaging Routine BPH with obstruction/lower urinary tract symptoms Expected: 10/21/2024, Expires: 11/20/2024 Scheduled Procedures Name Priority Associated Diagnoses Date/Ti [...] D LEVEL ONCE IN A LIFETIME-USE SMARTSET# 55597 Completed 07/26/2023, 02/26/2023, 01/23/2023, Additional history exists [...] encounter Medical Devices Implanted Type Area Marketing Project Manager Device Identifier Shelf Expiration Date Model / Serial / Lot Cement Bone Simplex Hv & G - [id number] Implanted:Qty: 2 on 09/02/2020 by Gianni Hubbard MD at OR [facility] Right: Hip LUDY : ORTHOPAEDICS 08/11/2021 6195-1-010 / / [id number] Spacer Ring Aclde Distal Lg 14 - [id number] Implanted:Qty: 1 on 09/02/2020 by Gianni Hubbard MD at OR [facility] Right: Hip LUDY : ORTHOPAEDICS 11/25/2024 [id number] / / Accolade C Cs 127 6 37/158 - [id number] Implanted:Qty: 1 on 09/02/2020 by Gianni Hubbard MD at OR [facility] Right: Hip LUDY : ORTHOPAEDICS 05/29/2023 [id number] / / [id number] Hip Cocr Lfit Head V40 28/+4 - [id number] Implanted:Qty: 1 on 09/02/2020 by Gianni Hubbard MD at OR [facility] Right: Hip LUDY : ORTHOPAEDICS 11/15/2024 6260-9-228 / / [id number] Hip Head Bipol Uhr Uni 28x52 - [id number] Implanted:Qty: 1 on 09/02/2020 by Gianni Hubbard MD at OR [facility] Right: Hip LUDY : ORTHOPAEDICS 11/25/2024 [id number] / / [id number] Lens Intraoc 17.5 - [id number] - [id number] Implanted:Qty: 1 on 03/23/2022 by Rad Morgan MD at OR [facility] Left: Eye BAUSCH & LOMB 10/11/2026 [id number] / [id number] / [id number] Lens Intraoc 18.0 - [id number] - [id number] Implanted:Qty: 1 on 03/30/2022 by Rad Morgan MD at OR [facility] Right: Eye BAUSCH & LOMB 01/11/2027 [id number] / [id number] / [id number] documented as of this encounter Visit Diagnoses Diagnosis BPH with obstruction/lower urinary tract symptoms- Primary Hypertrophy of prostate with urinary obstruction and other lower urinary tract symptoms (LUTS) documented in this encounter Advance Directives * [...] Power of Attor jus? No Care Teams Rangelands Conservation Laborer Relationship Specialty Start Date End Date Zaire Urias MD [address] [place] [address] PCP - General Family Medicine 04/11/21 documented as of this encounter
--- OUTSIDE RECORDS SUMMARY | 2024-01-29 20:42 | External Medical Summary ---
Author Name Unknown Address Unknown Organization : Laboratory Report Ordering Provider Test Date Status BULMARO MATHIS 10/22/2023 09:47:33 Final Observation Date Value Abnormality Reference (Units ) Status Beta-2 Microglobulin 10/22/2023 09:47:33 4.23 Above high normal <=2.51 (mg/L) Final
Test Performed at:
[facility]
[address] [facility]
[place] [address]
Mario Iqbal M.D., Ph.D.,Director of Laboratories Performing Location
--- OUTSIDE RECORDS SUMMARY | 2024-01-29 20:42 | External Medical Summary | Summary of Care ---
Author Name Unknown Organization [facility] Address [address] [facility] [place] [address] Phone [phone] Care Team Providers Care Building Maintenance Superintendent Name Role Phone Kaiser Amanda MD Primary Care Provider [phone] Reason for Visit * Reason Comments Dosage Adjustment In Person (Anticoag Cl inic) Encounter Details Date Type Department Care Team (Late st Contact Info) Description 10/17/2023 10:40 AM EDT Anticoagulation Pharmacy, [address] [place] [address] Pharmacist1, [address] [place] [address] History of pulmonary embolism*; History of DVT (deep vein thrombosis); 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 Allergies Active Allergy Reactions Criticality Noted Date Comments Cat Dander Itching 07/14/2016 documented as of this encounter (statuses as of 10/17/2023) Medications Medication Sig Dispensed Refills Start Date End Date Status CojoinTouch Ultra 2 w/Device KitIndications:Type 2 diabetes mellitus with hemoglobin A1c goal of less than 7.5% ([facility]) Testing blood sugars twice daily [...] hemoglobin A1c goal of less than 7.5% ([facility]) TAKE 1 TABLET BY MOUTH [...] hemoglobin A1c goal of less than 7.5% ([facility]) USE STRIP TO CHECK GLUCOSE [...] as of this encounter (statuses as of 10/17/2023) Active Problems Problem Noted Date Diagnosed Date [...] as of this encounter (statuses as of 10/17/2023) Resolved Problems Problem Noted Date Diagnosed Date [...] as of this encounter (statuses as of 10/17/2023) Immunizations Name Administration Dates Next Due COVID-19 mRNA, LNP-s, No Pre serve, 2-Dose Series (MaidSafe) 04/23/2021,08/09/2020,07/12/2020 Covid-19, Mrna, Lnp-s, Pf, B ivalent, 30 Mcg, IM, 12 yrs and above (MaidSafe) 05/19/2022 Pneumococcal Conjugate Vacc, 13 Valent (Prevnar) [...] Progress Notes * Jessi Collier RPh - 10/17/2023 10:27 AM EDT Medication Therapy Disease Management - Anticoagulation Patient: Lewis Alarcon | : 1950 Subjective Patient-Reported Symptoms: Patient Findings Negatives: Signs/symptoms of thrombosis, Signs/symptoms of bleeding, Change in health, Change in alcohol use, Change in activity, Upcoming invasive procedure, Missed doses, Extra doses, Change in medications, Change in diet/appetite, Bruising Objective Current Warfarin Dose As of 10/17/2023 Warfarin maintenance plan: 5 mg (5 mg x 1) every day INR Result As of 10/17/2023 INR goal: 2.0-3.0 INR used for dosin.3 (10/17/2023) Assessment & Plan Warfarin Plan As of 10/17/2023 Full warfarin instructions: 5 mg every day No change documented: Jessi Collier RPh Next INR check: 11/07/2023 Repeat PT/INR in 3 week(s) Weekly dose: not changed Additional Dosing Information: Description Home Phleb: DENIS Collier RPh Clinical Pharmacist 10/17/2023, 10:27 AM documented in this encounter Plan of Treatment Upcoming Encounters Date Type Department Care Team (Late st Contact Info) Description 10/22/2023 9:15 AM EDT Office Visit Urology [place] [address] [place] [address] Bert Boogie Jr., MD [address] [place] [address] 10/29/2023 2:30 PM EDT Office Visit Cardiology, [place] [address] [facility] [place] [address] [facility] [address] [facility] [place] [address] 11/07/2023 2:10 PM EDT Anticoagulation Pharmacy, [place] [address] [place] [address] Pharmacist1, [facility] [address] [facility] [address] 11/07/2023 2:30 PM EDT Office Visit Neurology, [place] [address] [place] [address] Ruth Lobo PA-C 21 [place] [address] 01/21/2024 2:00 PM EDT Office Visit Endocrinology, [place] [address] [place], [place] [phone] Sakina Jones MD [address] [place], [place] [phone] 01/25/2024 3:30 PM EDT Office Visit [facility] 200 [facility] [address] Laney Hogue MD 200 [facility], [place] [phone] 02/25/2024 9:20 AM EDT Office Visit [facility] [place] [address] [place] [phone] Kaiser Amanda MD [address] [place] [id number] Scheduled Procedures Name Priority Associated Diagnoses Date/Ti [...] 04/11/2021, Additional history exists GFR 10/09/2024 10/10/2023, 052 12/2023, 10/08/2023, Additional history exists DXA Scan 01/25/2025 [...] D LEVEL ONCE IN A LIFETIME-USE SMARTSET# [id number] Completed 07/26/2023, 02/26/2023, 01/23/2023, Additional history exists [...] this encounter Medical Devices Implanted Type Area Motor Vehicle Clerk Device Identifier Shelf Expiration Date Model / Serial / Lot Cement Bone Simplex Hv & G - [id number] Implanted:Qty: 2 on 09/02/2020 by Gianni Hubbard MD at OR [facility] Right: Hip LUDY : ORTHOPAEDICS 08/11/2021 6195-1-010 / / [id number] Spacer Ring Aclde Distal Lg 14 - [id number] Implanted:Qty: 1 on 09/02/2020 by Gianni Hubbard MD at OR [facility] Right: Hip LUDY : ORTHOPAEDICS 11/25/2024 [id number] / / Accolade C Cs 127 6 37/158 - [id number] Implanted:Qty: 1 on 09/02/2020 by Gianni Hubbard MD at OR [facility] Right: Hip LUDY : ORTHOPAEDICS 05/29/2023 [id number] / / [id number] Hip Cocr Lfit Head V40 28/+4 - [id number] Implanted:Qty: 1 on 09/02/2020 by Gianni Hubbard MD at OR [facility] Right: Hip LUDY : ORTHOPAEDICS 11/15/2024 6260-9-228 / / [id number] Hip Head Bipol r [facility] 28x52 - [id number] Implanted:Qty: 1 on 09/02/2020 by Gianni Hubbard MD at OR [facility] Right: Hip LUDY : ORTHOPAEDICS 11/25/2024 1-52-28 / / [id number] Lens Intraoc 17.5 - [id number] - [id number] Implanted:Qty: 1 on 03/23/2022 by Rad Morgan MD at OR [facility] Left: Eye BAUSCH & LOMB 10/11/2026 [id number] / [id number] / [id number] Lens Intraoc 18.0 - [id number] - [id number] Implanted:Qty: 1 on 03/30/2022 by aRd Morgan MD at OR [facility] Right: Eye BAUSCH & LOMB 01/11/2027 [id number] / [id number] / [id number] documented as of this encounter Procedures Procedure Name Priority Date/Time Associated Diagnosis Comments INR FINGERSTICK, POINT OF CARE STAT 10/17/2023 10:33 AM EDT History of pulmonary embolism History of DVT (deep vein thrombosis) 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 documented in this encounter Results * INR FINGERSTICK, POINT OF CARE (10/17/2023 10:33 AM EDT) Fingerstick INR 2.3 INR 10:34 AM EDT [facility]01 Blood 10/17/2023 10:3 3 AM EDT 10/17/2023 10:34 AM EDT Narrative [facility]-01 - 10/17/2023 10:34 AM EDT Therapeutic ranges for non-operative patients: Prophylaxsis/treatment of DVT: (Range:2.0-3.0) Treatment of pulmonary embolism:(Range:2.0-3.0) Prevention of systemic embolism from: -tissue heart valves -acute myocardial infarction -valvular heart disease -atrial fibrillation (Range: 2.0-3.0) Mechanical prosthetic valves: (Range: 2.5-3.5) Jessigin Collier [facility] POINT OF CARE T EST DOCKED DEVICE UNSOLICITED RESULTS [address] [place] 45-01 [address] [place] [id number] documented in this encounter Visit Diagnoses Diagnosis History of pulmonary embolism- Primary Personal history of pulmonary embolism History of DVT (deep vein thrombosis) Personal history of venous thrombosis and embolism 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 Encounter for therapeutic drug monitoring documented in this encounter Advance Directives * [...] Power of Attor jus? No Care Teams Building Maintenance Superintendent Relationship Specialty Start Date End Date Kaiser Amanda MD [address] [place] [id number] PCP - General Family Medicine 04/11/21 documented as of this encounter"
--- OUTSIDE RECORDS SUMMARY | 2024-01-29 20:42 | External Medical Summary ---
Author Name Unknown Address Unknown Organization [facility] - [address] [place] [address] Laboratory Report Ordering Provider Test Date Status BULMARO MATHIS 10/22/2023 09:47:33 Final Observation Date Value Abnormality Reference (Units ) Status BUN 10/22/2023 09:47:33 18 6-20 (mg/dL) Final Creatinine 10/22/2023 09:47:33 1.1 0.6-1.2 (mg/dL) Final Glomerular filtration rate/1.73 sq M.predicted [Volume Rate/Area] in Serum, Plasma or Blood by Creatinine-based formula (CKD-EPI) 10/22/2023 09:47:33 73 >=60 (mL/min) Final eGFR is calculated based on the CKD-EPI 2020 equation Sodium 10/22/2023 09:47:33 138 135-146 (m mol/L) Final Potassium 10/22/2023 09:47:33 4.2 3.5-5.1 (m mol/L) Final Cl 10/22/2023 09:47:33 99 98-107 (mm ol/L) Final CO2 10/22/2023 09:47:33 20 Below low normal 22- 32 (mmol/L) Final Anion gap 10/22/2023 09:47:33 19 Above high normal 7- 15 (mmol/L) Final Glucose 10/22/2023 09:47:33 136 Above high normal 70 -120 (mg/dL) Final Calcium 10/22/2023 09:47:33 9.3 8.4-10.2 ( mg/dL) Final Performing Location [facility] [place] [address]
--- OUTSIDE RECORDS SUMMARY | 2024-01-29 20:42 | External Medical Summary ---
Author Name Unknown Address Unknown Organization [facility] - [address] [place] [address] Laboratory Report Ordering Provider Test Date Status BULMARO MATHIS 10/22/2023 09:47:33 Final Observation Date Value Abnormality Reference (Units ) Status Phosphate 10/22/2023 09:47:33 2.7 2.5-4.8 (m g/dL) Final Performing Location [facility] - [address] [place] [place] [address]
--- OUTSIDE RECORDS SUMMARY | 2024-01-29 20:42 | External Medical Summary | Summary of Care ---
Author Name Unknown Organization [facility] Address [address] [facility] [place] [address] Phone [phone] Care Team Providers Care Home Care Administrator Name Role Phone Kaiser Amanda MD Primary Care Provider +1 [phone] Reason for Visit * Reason Comments Outpatient Testing Encounter Details Date Type Department Care Team (Late st Contact Info) Description 10/18/2023 2:50 PM EDT Laboratory Laboratory, [place] [address] [place] [address] [place], [facility] [address] [place] [address] Type 2 diabetes mellitus with hemoglobin A1c goal of less than 7.5% ([facility]) Allergies Active Allergy Reactions Criticality Noted Date Comments Cat Dander Itching 07/14/2016 documented as of this encounter (statuses as of 10/18/2023) Medications Medication Sig Dispensed Refills Start Date [...] less than 7.5% ([facility]) TAKE 1 TABLET BY MOUTH DAILY. [...] by mouth at bedtime. 30 Capsule 10/11/2023 Active Additional Information Patient taking differently:0.4 mg [...] as of this encounter (statuses as of 10/18/2023) Active Problems Problem Noted Date Diagnosed Date [...] as of this encounter (statuses as of 10/18/2023) Resolved Problems Problem Noted Date Diagnosed Date [...] unspecified site 12/16/2018 04/11/2019 Severe dehydration 12/16/2018 08//201 9 Hypercalcemia 12/16/2018 10/10/2023 Lactic acidosis 12/16/2018 11/30/2021 Pressure injury, unstageable 12/16/2018 03/27/2019 Quadriplegia 12/05/2018 06/09/2022 Complicated UTI (urinary tract infection) 12/04/2018 10/11/2023 Generalized weakness 12/04/2018 024 Severe malnutrition 12/01/2018 12/06/19 Acute venous embolism and th rombosis of unspecified deep vessels of lower extremity 05/04/2008 08/23/2016 documented as of this encounter (statuses as of 10/18/2023) Immunizations Name Administration Dates Next Due COVID-19 mRNA, LNP-s, No Pre serve, 2-Dose Series (Prestigos) 04/23/2021,08/09/2020,07/12/2020 Covid-19, Mrna, Lnp-s, Pf, B ivalent, [...] Office Visit Urology Rolo Colon [address] [place] [address] Bert Boogie Jr., MD [address] [place] [address] 10/29/2023 2:30 PM EDT Office Visit CardiologyMichaelwn [address] [place] [address] [facility] [address] [place] [address] 11/07/2023 2:10 PM EDT Anticoagulation Pharmacy, [place] [address] [address] Pharmacist1[facility] [place] [address] [place] [address] 11/07/2023 2:30 PM EDT Office Visit Neurology, [place] [address] [address] Ruth Lobo PA-C [address] [place] [address] 01/21/2024 2:00 PM EDT Office Visit Endocrinology, [place] [address] [place] [address] Sakina Jones MD [address] [place], [place] [phone] 01/25/2024 3:30 PM EDT Office Visit [facility] [address] [place] [address] Laney Hogue MD 200 [facility] [place] [address] 02/25/2024 9:20 AM EDT Office Visit Family Practice, [place] [address] [place] [place] [phone] Kaiser Amanda MD 21 [facility] [place] [address] Pending Results Name Type Priority Associated Diagnoses Date /Time ALBUMIN / CREATININE RATIO, URINE Lab Routine Type 2 diabetes mellitus with hemoglobin A1c goal of less than 7.5% ([facility]) 10/18/2023 2:46 PM EDT Scheduled Procedures Name Priority Associated [...] D LEVEL ONCE IN A LIFETIME-USE SMARTSET# [id number] Completed 07/26/2023, 02/26/2023, 01/23/2023, Additional history exists [...] this encounter Medical Devices Implanted Type Area It Programmer Device Identifier Shelf Expiration Date Model / Serial / Lot Cement Bone Simplex Hv & G - [id number] Implanted:Qty: 2 on 09/02/2020 by Gianni Hubbard MD at OR [facility] Right: Hip LUDY : ORTHOPAEDICS 08/11/2021 6195-1-010 / / [id number] Spacer Ring Aclde Distal Lg 14 - [id number] Implanted:Qty: 1 on 09/02/2020 by Gianni Hubbard MD at OR [facility] Right: Hip LUDY : ORTHOPAEDICS 11/25/2024 [id number] / / Accolade C Cs 127 6 37/158 - [id number] Implanted:Qty: 1 on 09/02/2020 by Gianni Hubbard MD at OR [facility] Right: Hip LUDY : ORTHOPAEDICS 05/29/2023 [id number] / / [id number] Hip Cocr Lfit Head V40 28/+4 - [id number] Implanted:Qty: 1 on 09/02/2020 by Gianni Hubbard MD at OR [facility] Right: Hip LUDY : ORTHOPAEDICS 11/15/2024 6260-9-228 / / [id number] Hip Head Bipol Uhr Uni 28x52 - [id number] Implanted:Qty: 1 on 09/02/2020 by Gianni Hubbard MD at OR [facility] Right: Hip LUDY : ORTHOPAEDICS 11/25/2024 UH1-52-28 / / [id number] Lens Intraoc 17.5 - [id number] - [id number] Implanted:Qty: 1 on 03/23/2022 by Rad Morgan MD at OR [facility] Left: Eye BAUSCH & LOMB 10/11/2026 [id number] / [id number] / [id number] Lens Intraoc 18.0 - [id number] - [id number] Implanted:Qty: 1 on 03/30/2022 by Rad Morgan MD at [facility] Right: Eye BAUSCH & LOMB 01/11/2027 [id number] / [id number] / [id number] documented as of this encounter Visit Diagnoses Diagnosis Type 2 diabetes mellitus with hemoglobin A1c goal of less than 7.5% (HCC) documented in this encounter Advance Directives * [...] Power of Attor jus? No Care Teams Home Care Administrator Relationship Specialty Start Date End Date Kaiser Amanda MD [address] [place] [address] PCP - General Family Medicine 04/11/21 documented as of this encounter
--- OUTSIDE RECORDS SUMMARY | 2024-01-29 20:42 | External Medical Summary ---
Author Name Unknown Address Unknown Organization K01:[facility] [place] [address] [place] [address] Laboratory Report Ordering Provider Test Date Status ZAIREBRIDGETT RICKS 10/18/2023 14:44:37 Final Observation Date Value Abnormality Reference (Units) Status Bacteria identified in Specimen by Culture 10/18/2023 14:44:37 No significant growth Final Test: Culture, Urine, Quant itative
Specimen Source: Urine, Clean Catch
Specimen Type: Urine
Specimen Date: 10/18/2023 1444
Result Date: 10/19/2023 1642
Result Status: Final result
Resulting Lab: [facility]
[address]
[facility]ie [facility]22

CULTURE

No significant growth

null Performing Location [facility] [place] [address] [facility] [address]
--- OUTSIDE RECORDS SUMMARY | 2024-01-29 20:42 | External Medical Summary ---
Author Name Unknown Address Unknown Organization K1F:[facility] - [address] [place] [place] [address] Laboratory Report Ordering Provider Test Date Status BULMARO MATHIS 10/22/2023 09:47:33 Final Observation Date Value Abnormality Reference (Units ) Status SYNC LEUKOCYTES IN BLOOD BY AUTOMATED COUNT 10/22/2023 09:47:33 8.70 4.00-10.80 (K/uL) Final Segs 10/22/2023 09:47:33 65.5 40.0-75.0 (%) Final Lymphs % 10/22/2023 09:47:33 23.3 18.0-42.0 (%) Final Monos 10/22/2023 09:47:33 7.4 1.0-11.0 (%) Final Eosinophils 10/22/2023 09:47:33 2.5 0.0-6.0 (%) Final Basos 10/22/2023 09:47:33 0.8 0.0-2.0 (%) Final Immature Granulocyte, Percent 10/22/2023 09:47:33 0.5 0.0-2.0 (%) Final Absolute Segs 10/22/2023 09:47:33 5.70 1.80-7.70 (K/uL) Final Lymphs, absolute 10/22/2023 09:47:33 2.03 1.00-4.80 (K/ul) Final Monos, Abs 10/22/2023 09:47:33 0.64 0.00-1.10 (K/uL) Final Eos, Abs 10/22/2023 09:47:33 0.22 0.00-0.70 (K/uL) Final Basos, Abs 10/22/2023 09:47:33 0.07 0.00-0.20 (K/uL) Final Immature Granulocytes, Number 10/22/2023 09:47:33 0.04 0.00-0.20 (K/uL) Final Performing Location LABORATORY [facility] - [address] [place] [address]
--- OUTSIDE RECORDS SUMMARY | 2024-01-29 20:42 | External Medical Summary | Summary of Care ---
Author Name Unknown Organization [facility] Address [address] [facility] [address] Phone [phone] Care Team Providers Care Glass Mold Repairer Name Role Phone Kaiser Amanda MD Primary Care Provider [phone] [phone] Reason for Visit * Reason Onset Date Comments Advice 10/19/2023 Encounter Details Date Type Department Care Team (Late st Contact Info) Description 10/19/2023 [facility] [place] [address] Kaiser Amanda MD 21 [place] [address] Advice Allergies Active Allergy Reactions Criticality Noted Date Comments Cat Dander Itching 07/14/2016 documented as of this encounter (statuses as of 10/22/2023) Medications Medication Sig Dispensed Refills Start Date End Date Status [employer] Ultra 2 w/Device KitIndications:Type 2 diabetes mellitus with hemoglobin A1c goal of less than 7.5% ([facility]) Testing blood sugars twice daily Dx: E11.9 1 Kit 11 06/06/2021 Active OneTouch Delica Lancets 30GIndications:Type 2 diabetes mellitus with hemoglobin A1c goal of less than 7.5% ([facility]),Type 2 diabetes mellitus with polyneuropathy ([facility]) Check BS once daily E11.9 100 Each [...] mRNA, LNP-s, No Pre serve, 2-Dose Series (Cinnafilm) 04/23/2021,08/09/2020,07/12/2020 Covid-19, Mrna, Lnp-s, Pf, B ivalent, [...] read on his check out papers from 10/17/[address] Amanda,he was to stop [...] [address] [place] [address] Bert Boogie Jr., MD [address] [place] [address] 10/29/2023 2:30 PM EDT Office Visit CardiologyMichaelwn [address] [place] [place] [address] [facility] [address] [facility] [place] [address] 10/30/2023 4:30 PM EDT Home Visit Care Coordination and Integration [address] [place] [address] Jess Nevarez, Community [facility] Telemarketing Sales Representative [address] [place] [address] 11/07/2023 2:10 PM EDT Anticoagulation Pharmacy, [place] [address] [address] Pharmacist1, [facility] [place] [address] [place] [address] 11/07/2023 2:30 PM EDT Office Visit Neurology, [place] [address] [address] Ruth Serrano PA-C [address] [place] [address] 01/21/2024 2:00 PM EDT Office Visit Endocrinology, [place] [address] [place] [address] Sakina Jones MD [address] [place], [place] [phone] 01/25/2024 3:30 PM EDT Office Visit [facility] Surgery [facility] [address] [place] [address] Laney Hogue MD [address] [place] [address] 02/25/2024 9:20 AM EDT Office Visit Family [facility] [address] [place] [phone] Kaiser Amanda MD [address] [place] [address] Scheduled Procedures Name Priority Associated Diagnoses Date/Ti [...] D LEVEL ONCE IN A LIFETIME-USE SMARTSET# 49211 Completed 07/26/2023, 02/26/2023, 01/23/2023, Additional history exists [...] encounter Medical Devices Implanted Type Area Data Power Consultant Device Identifier Shelf Expiration Date Model / Serial / Lot Cement Bone Simplex Hv & G - [id number] Implanted:Qty: 2 on 09/02/2020 by Gianni Hubbard MD at OR [facility] Right: Hip LUDY : ORTHOPAEDICS 08/11/2021 6195-1-010 / / [id number] Spacer Ring Aclde Distal Lg 14 - [id number] Implanted:Qty: 1 on 09/02/2020 by Gianni Hubbard MD at OR [facility] Right: Hip LUDY : ORTHOPAEDICS 11/25/2024 6561-0742 / / Accolade C Cs 127 6 37/158 - [id number] Implanted:Qty: 1 on 09/02/2020 by Gianni Hubbard MD at OR [facility] Right: Hip LUDY : ORTHOPAEDICS 05/29/2023 6057-0637D / / [id number] Hip Cocr Lfit Head V40 28/+4 - [id number] Implanted:Qty: 1 on 09/02/2020 by Gianni Hubbard MD at OR [facility] Right: Hip LUDY : ORTHOPAEDICS 11/15/2024 6260-9-228 / / [id number] Hip Head Bipol Uhr Uni 28x52 - [id number] Implanted:Qty: 1 on 09/02/2020 by Gianni Hubbard MD at OR [facility] Right: Hip LUDY : ORTHOPAEDICS 11/25/2024 UH1-52-28 / / [id number] Lens Intraoc 17.5 - [id number] - [id number] Implanted:Qty: 1 on 03/23/2022 by Rad Morgan MD at OR [facility] Left: Eye BAUSCH & LOMB 10/11/2026 [id number] / [id number] / [id number] Lens Intraoc 18.0 - [id number] - [id number] Implanted:Qty: 1 on 03/30/2022 by Rad Morgan MD at OR [facility] Right: Eye BAUSCH & LOMB 01/11/2027 [id number] / [id number] / [id number] documented as of this encounter Additional Health [...] Power of Attor jus? No Care Teams Glass Mold Repairer Relationship Specialty Start Date End Date Kaiser Amanda MD [address] [place] [address] PCP - General Family Medicine 04/11/21 documented as of this encounter
--- OUTSIDE RECORDS SUMMARY | 2024-01-29 20:42 | External Medical Summary ---
Author Name Unknown Address Unknown Organization K01:[facility] - [address] [place] [address] Laboratory Report Ordering Provider Test Date Status BULMARO MATHIS 10/22/2023 09:47:33 Final Observation Date Value Abnormality Reference (Units ) Status GGT 10/22/2023 09:47:33 11 <=60 (U/L) Final Performing Location [facility] - [address] [place] [address]
--- OUTSIDE RECORDS SUMMARY | 2024-01-29 20:42 | External Medical Summary ---
Author Name Unknown Address Unknown Organization K01:[facility] [place] [address] [place] [address] Laboratory Report Ordering Provider Test Date Status BRIDGETT TAI 10/18/2023 14:46:06 Final Normal: <30 mg/g creatinine< br/>High: 30-300 mg/g creatinine
Very High: >300 mg/g creatinine
Nephrotic: >2200 mg/g creatinine Observation Date Value Abnormality Reference (Units ) Status Albumin, Urine 10/18/2023 14:46:06 2.34 (mg/dL) Final Creatinine, Urine 10/18/2023 14:46:06 76 (mg/dL) Final Albumin/Creatinine [Mass Ratio] in Urine 10/18/2023 14:46:06 31 Above high normal <30 (mg/g Creat) Final Performing Location [facility] [place] [address] [address]
--- OUTSIDE RECORDS SUMMARY | 2024-01-29 20:42 | External Medical Summary ---
Author Name Unknown Address Unknown Organization K01:[facility] - [address] [place] [address] Laboratory Report Ordering Provider Test Date Status BRIDGETT TAI 10/19/2023 11:18:31 Final Observation Date Value Abnormality Reference (Units) Status Source 10/19/2023 11:18:31 Semi-liquid Final Clostridioides difficile toxin and BI-NAP1-027 strain DNA panel - Stool by GREGORY with probe detection 10/19/2023 11:18:31 Negative. No C. difficile toxin B gene DNA detected by PCR (Amplified Probe). Negative Final Performing Location [facility] - [address] [place] [address]
--- OUTSIDE RECORDS SUMMARY | 2024-01-29 20:42 | External Medical Summary | Summary of Care ---
Author Name Unknown Organization [facility] Address 100 [facility] [place] [address] Phone [phone] Care Team Providers Care Research Animal Facility Supervisor Name Role Phone Kaiser Amanda MD Primary Care Provider [phone] [phone] Reason for Visit * Reason Comments Outpatient Testing Encounter Details Date Type Department Care Team (Late st Contact Info) Description 10/19/2023 11:20 AM EDT Laboratory Laboratory, [address] [place] [address] [place], Specimen Drop Off [address] [address] Diarrhea of presumed infectious origin Allergies Active Allergy Reactions Criticality Noted Date Comments Cat Dander Itching 07/14/2016 documented as of this encounter (statuses as of 10/19/2023) Medications Medication Sig Dispensed Refills Start Date End Date Status Ulabox Ultra 2 w/Device KitIndications:Type 2 diabetes mellitus [...] as of this encounter (statuses as of 10/19/2023) Active Problems Problem Noted Date Diagnosed Date [...] Hyperlipidemia with target LDL less than 100 01/ BPH without obstruction/lower urinary tract symp toms 11/24/2013 Depression with anxiety 07/13/2009 Type 2 diabetes mellitus wit h hemoglobin A1c goal of less than 7.5% 07/13/2009 Overview: ICD-10 update of inactive term History of Hodgkin's disease 05/04/2008 Type 2 diabetes mellitus with polyneuropathy documented as of this encounter (statuses as of 10/19/2023) Resolved Problems Problem Noted Date Diagnosed Date [...] as of this encounter (statuses as of 10/19/2023) Immunizations Name Administration Dates Next Due COVID-19 mRNA, LNP-s, No Pre serve, 2-Dose Series (D-ÉG Thermoset) 04/23/2021,08/09/2020,07/12/2020 Covid-19, Mrna, Lnp-s, Pf, B ivalent, [...] 9:15 AM EDT Office Visit Urology [place] [address] [place] [address] Bert Boogie Jr., MD [address] [place] [address] 10/29/2023 2:30 PM EDT Office Visit CardiologyRolo [address] [place] [address] R[place] [facility] Cardiology [address] [place] [address] 10/30/2023 4:30 PM EDT Home Visit Care Coordination and Integration [address] [place], [place] [phone] Jess Nevarez [facility] Berry Picker [address] [place] [address] 11/07/2023 2:10 PM EDT Anticoagulation Pharmacy, [place] [address] Pharmacist1, [facility] [place] [address] [place] [address] 11/07/2023 2:30 PM EDT Office Visit Neurology, [place] 21 [facility] [place] [address] Ruth Lobo PA-C 21 [facility] [address] 01/21/2024 2:00 PM EDT Office Visit Endocrinology, [place] [address] [place] [address] Sakina Jones MD [address] [place] [address] 01/25/2024 3:30 PM EDT Office Visit [facility] Surgery [facility] [address] [place] [address] Laney Hogue MD 200 [place] [address] 02/25/2024 9:20 AM EDT Office Visit Family Practice, [place] 21 [facility] [place] [phone] Kaiser Amanda MD 21 [facility] [place] [address] Pending Results Name Type Priority Associated Diagnoses Date /Time CLOSTRIDIUM DIFFICILE, PCR Lab Routine Diarrhea of presumed infectious origin 10/19/2023 11:18 AM EDT Scheduled Procedures Name Priority Associated [...] D LEVEL ONCE IN A LIFETIME-USE SMARTSET# [id number] Completed 07/26/2023, 02/26/2023, 01/23/2023, Additional history exists [...] this encounter Medical Devices Implanted Type Area Polymerization Kettle Operator Device Identifier Shelf Expiration Date Model / Serial / Lot Cement Bone Simplex Hv & G - [id number] Implanted:Qty: 2 on 09/02/2020 by Gianni Hubbard MD at OR [facility] Right: Hip LUDY : ORTHOPAEDICS 08/11/2021 6195-1-010 / / [id number] Spacer Ring Aclde Distal Lg 14 - [id number] Implanted:Qty: 1 on 09/02/2020 by Gianni Hubbard MD at OR [facility] Right: Hip LUDY : ORTHOPAEDICS 11/25/2024 6821-9534 / / Accolade C Cs 127 6 37/158 - [id number] Implanted:Qty: 1 on 09/02/2020 by Gianni Hubbard MD at OR [facility] Right: Hip LUDY : ORTHOPAEDICS 05/29/2023 6057-0637D / / [id number] Hip Cocr Lfit Head V40 28/+4 - [id number] Implanted:Qty: 1 on 09/02/2020 by Gianni Hubbard MD at OR [facility] Right: Hip LUDY : ORTHOPAEDICS 11/15/2024 6260-9-228 / / [id number] Hip Head Bipol Uhr Uni 28x52 - [id number] Implanted:Qty: 1 on 09/02/2020 by Gianni Hubbard MD at OR [facility] Right: Hip LUDY : ORTHOPAEDICS 11/25/2024 UH1-52-28 / / [id number] Lens Intraoc 17.5 - [id number] - [id number] Implanted:Qty: 1 on 03/23/2022 by Rad Morgan MD at OR [facility] Left: Eye BAUSCH & LOMB 10/11/2026 [id number] / [id number] / [id number] Lens Intraoc 18.0 - [id number] - [id number] Implanted:Qty: 1 on 03/30/2022 by Rad Morgan MD at [facility] Right: Eye BAUSCH & LOMB 01/11/2027 [id number] / [id number] / [id number] documented as of this encounter Visit Diagnoses Diagnosis Diarrhea of presumed infectious origin documented in this encounter Additional Health Concerns Infection Onset Date Last Indicated Resolved Time C. difficile Rule-Out 10/19/2023 10/19/2023 documented as of this encounter Advance Directives [...] Power of Attor jus? No Care Teams Research Animal Facility Supervisor Relationship Specialty Start Date End Date Kaiser Amanda MD [address] [phone] PCP - General Family Medicine 04/11/21 documented as of this encounter
--- OUTSIDE RECORDS SUMMARY | 2024-01-29 20:43 | External Medical Summary ---
Author Name Unknown Address Unknown Organization : Laboratory Report Ordering Provider Test Date Status NORY GOMEZ 10/09/2023 21:16:52 Final Observation Date Value Abnormality Reference (Units ) Status Glucose Point of Care 10/09/2023 21:16:52 187 Above high normal 70-120 (mg/dL) Final Performing Location
--- OUTSIDE RECORDS SUMMARY | 2024-01-29 20:43 | External Medical Summary | Summary of Care ---
Author Name Unknown Organization [facility] Address [address] [place] [address] Phone [phone] Care Team Providers Care Flux Mixer Name Role Phone Kaiser Amanda MD Primary Care Provider [phone] Reason for Visit * Reason Comments Hospital Follow-Up * Auth/Cert Specialty Diagnoses / Procedures Referred By Contserina t Referred To Contact [facility] [address] [facility] [place] [address] Phone: [phone] Emergency Medicine [facility] [address] [facility] [place] [address] Referral ID Status Reason Start Date Expiration Date Visits Re quested Visits Authorized [id number] Encounter Details Date Type Department Care Team (Late st Contact Info) Description 10/11/2023 5:10 PM EDT Anticoagulation Pharmacy, [address] [place] [address] Pharmacist2, [address] [place] [address] History of pulmonary embolism*; History of DVT (deep vein thrombosis) Allergies Active Allergy Reactions Criticality Noted Date Comments Cat Dander Itching 07/14/2016 documented as of this encounter (statuses as of 10/11/2023) Medications Medication Sig Dispensed Refills Start Date End Date Status OneTouch Ultra 2 w/Device KitIndications:Type 2 diabetes mellitus with hemoglobin A1c goal of less than 7.5% ([facility]) Testing blood sugars twice daily Dx: E11.9 1 Kit 11 06/06/2021 Active Electric CloudTolinda Bhatt Lancets 30GIndications:Type 2 diabetes mellitus with hemoglobin A1c goal of less than 7.5% ([facility]),Type 2 diabetes mellitus with polyneuropathy ([facility]) Check BS once daily E11.9 100 Each [...] 7.5% ([facility]) TAKE 1 TABLET BY MOUTH DAILY. [...] MINUTES, THEN RINSE 120 mL 07/06/2023 Active Electric CloudTouch Verio In Vitro Strip (Glucose Blood)Indications: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 (HCC),Type 2 diabetes mellitus with hemoglobin A1c goal of less than 7.5% ([facility]) USE STRIP TO CHECK GLUCOSE ONCE DAILY [...] as of this encounter (statuses as of 10/11/2023) Active Problems Problem Noted Date Diagnosed Date [...] as of this encounter (statuses as of 10/11/2023) Resolved Problems Problem Noted Date Diagnosed Date [...] as of this encounter (statuses as of 10/11/2023) Immunizations Name Administration Dates Next Due COVID-19 mRNA, LNP-s, No Pre serve, 2-Dose Series (Zinitix) 04/23/2021,08/09/2020,07/12/2020 Covid-19, Mrna, Lnp-s, Pf, B ivalent, [...] Date Recorded PHQ Adult Total Score 0 09/27/2022 Hunger Vital Sign Answer Date Recorded Within the past 12 months, y ou worried that your food would run out before you got the money to buy more. Never true 07/26/19 24 Within the past 12 months, t he food you bought just didn't last and you didn't have money to get more. Never true 07/26/2023 Sex and Gender Information Value Date Recorded [...] Progress Notes * Jessi Collier RPh - 10/11/2023 9:06 AM EDT Images from the original note were not included. Patient presented to [facility] ER on 10/05 due to orthostatic hypotension with near syncope. Patient received IV fluids and started on midodrine. Losartan and finasteride stopped, metoprolol and tamsulosin decreased. Discharged home with resumption of [facility] (previously for PT, not nursing). Per inpatient pharmacist discharge instructions: Patient Phone Numbers Spoke to patient's via phone. Reviewed Coumadin discharge instructions: take 5mg daily. Scheduled inperson fingerstick on 10/16 matching PCP appointment. Jessi Collier PharmD, [facility] Clinical Pharmacist 10/11/2023, 11:39 AM documented in this encounter Plan of Treatment Upcoming Encounters Date Type Department Care Team (Late st Contact Info) Description 10/17/2023 10:40 AM EDT Anticoagulation Pharmacy, [place] [address] [address] Pharmacist1, [facility] [place] [address] [address] 10/17/2023 11:00 AM EDT Office Visit Family [facility], [place] [address] [phone] Kaiser Amanda MD [facility] [place] [address] 10/22/2023 9:15 AM EDT Office Visit Urology [place] [address] [facility] [address] [address] Bert Boogie Jr., MD [facility] [address] [address] 10/29/2023 2:30 PM EDT Office Visit [facility], [place] [facility] [address] [facility] [address] [facility] [place] [address] 11/07/2023 2:30 PM EDT Office Visit Neurology, [place] [address] [address] Ruth Lobo PA-C [facility] [place] [address] 01/21/2024 2:00 PM EDT Office Visit Endocrinology, [place] [address] [place] [facility] [place] [address] Sakina Jones MD [address] [facility] [address] 01/25/2024 3:30 PM EDT Office Visit [facility] Surgery [facility] [address] [place] [address] Laney Hogue MD [address] [facility] [place] [address] 02/25/2024 9:20 AM EDT Office Visit [facility] [address] [place] [phone] Kaiser Amanda MD [address] [place] [address] Scheduled Procedures Name Priority Associated Diagnoses Date/Ti me COLONOSCOPY FLEXIBLE PROXIMA L DIAGNOSTIC Recall History of colonic polyps Scheduled Referrals Name Type Priority Associated Diagnoses Orde r Schedule ANTI-COAGULATION REFERRAL OP Referral Within 3 days (urgent) History of DVT (deep vein thrombosis) History of pulmonary embolism Ordered: 10/11/2023 Health Maintenance Due Date Last Done Comments [...] D LEVEL ONCE IN A LIFETIME-USE SMARTSET# 83352 Completed 07/26/2023, 02/26/2023, 01/23/2023, Additional history exists [...] this encounter Medical Devices Implanted Type Area Winch Stripper Device Identifier Shelf Expiration Date Model / Serial / Lot Cement Bone Simplex Hv & G - [id number] Implanted:Qty: 2 on 09/02/2020 by Gianni Hubbard MD at OR [facility] Right: Hip LUDY : ORTHOPAEDICS 08/11/2021 6195-1-010 / / [id number] Spacer Ring Aclde Distal Lg 14 - [id number] Implanted:Qty: 1 on 09/02/2020 by Gianni Hubbard MD at OR [facility] Right: Hip LUDY : ORTHOPAEDICS 11/25/2024 [id number] / / Accolade C 127 6 37/158 - [id number] Implanted:Qty: 1 on 09/02/2020 by Gianni Hubbard MD at OR [facility] Right: Hip LUDY : ORTHOPAEDICS 05/29/2023 [id number] / / [id number] Hip Cocr Lfit Head V40 28/+4 - [id number] Implanted:Qty: 1 on 09/02/2020 by Gianni Hubbard MD at OR [facility] Right: Hip LUDY : ORTHOPAEDICS 11/15/2024 6260-9-228 / / [id number] Hip Head Bipol Uhr Uni 28x52 - [id number] Implanted:Qty: 1 on 09/02/2020 by Gianni Hubbard MD at OR [facility] Right: Hip LUDY : ORTHOPAEDICS 11/25/2024 UH1-52-28 / / [id number] Lens Intraoc 17.5 - [id number] - [id number] Implanted:Qty: 1 on 03/23/2022 by Rad Morgan MD at OR [facility] Left: Eye BAUSCH & LOMB 10/11/2026 [id number] / [id number] / [id number] Lens Intraoc 18.0 - [id number] - [id number] Implanted:Qty: 1 on 03/30/2022 by Rad Morgan MD at OR [facility] Right: Eye BAUSCH & LOMB 01/11/2027 [id number] / [id number] / [id number] documented as of this encounter Visit Diagnoses Diagnosis History of pulmonary embolism- Primary Personal history of pulmonary embolism History of DVT (deep vein thrombosis) Personal history of venous thrombosis and embolism documented in this encounter Advance Directives * Full Code (Latest Code Status on File) Date Activated Date Inactivated Comments 10/06/2023 10:52 PM This order re flects the patients [...] Power of Attor jus? No Care Teams Flux Mixer Relationship Specialty Start Date End Date Kaiser Amanda MD [address] [address] PCP - General Family Medicine 04/11/21 documented as of this encounter
--- OUTSIDE RECORDS SUMMARY | 2024-01-29 20:43 | External Medical Summary | Summary of Care ---
Author Name Unknown Organization [facility] Address [address] [facility] [address] Phone [phone] Care Team Providers Care Drug Regulatory Affairs Specialist Name Role Phone Kaiser Amanda MD Primary Care Provider [phone] Reason for Visit * Reason Onset Date Comments Advice 10/15/2023 Encounter Details Date Type Department Care Team (Late st Contact Info) Description [facility] [place] [place] [phone] Kaiser Amanda MD 21 [place] [address] Advice Allergies Active Allergy Reactions Criticality Noted Date Comments Cat Dander Itching 07/14/2016 documented as of this encounter (statuses as of 10/16/2023) Medications Medication Sig Dispensed Refills Start Date End Date Status Jobfox Ultra 2 w/Device KitIndications:Type 2 diabetes mellitus [...] mRNA, LNP-s, No Pre serve, 2-Dose Series (Makoondi) 04/23/2021,08/09/2020,07/12/2020 Covid-19, Mrna, Lnp-s, Pf, B ivalent, 30 Mcg, IM, 12 yrs and above (Makoondi) 05/19/2022 Pneumococcal Conjugate Vacc, 13 Valent (Prevnar) [...] further recommendations Pt was admitted 10/05-10/10 to [facility] reports he Went to hospital [...] Description 10/17/2023 10:40 AM EDT Anticoagulation Pharmacy, [place] [address] [address] Pharmacist1, [facility] [place] [address] [address] 10/17/2023 11:00 AM EDT Office Visit [facility], [place] [address] [phone] Kaiser Amanda MD [address] [address] 10/22/2023 9:15 AM EDT Office Visit Urology Michael [place] [address] [address] Bert Boogie Jr., MD [address] [address] 10/29/2023 2:30 PM EDT Office Visit Cardiology, [address] [place] [address] [facility] [address] [place] [address] 11/07/2023 2:30 PM EDT Office Visit Neurology, [place] [address] [address] Ruth Lobo PA-C [address] [place] [address] 01/21/2024 2:00 PM EDT Office Visit Endocrinology, [place] [address] [place] [address] Sakina Jones MD [address] [place] [address] 01/25/2024 3:30 PM EDT Office Visit [facility] Surgery [facility] [address] [facility] [place] [place] [address] Laney Hogue MD [address] [facility] [place] [place] [address] 02/25/2024 9:20 AM EDT Office Visit Family [facility] [address] [phone] Kaiser Amanda MD 21 [facility] [place] [address] Scheduled Procedures Name Priority Associated Diagnoses Date/Ti me COLONOSCOPY FLEXIBLE PROXIMA L DIAGNOSTIC Recall History of colonic polyps Health Maintenance Due Date Last Done Comments Cologuard 11/28/1995 Fecal Occult Blood Test 11/28/1995 Sigmoidoscopy 11/28/1995 COVID-19 Vaccine (2022- season) 2023 05/19/2022, 04/23/2021, 08/09/2020, Additional history [...] D LEVEL ONCE IN A LIFETIME-USE SMARTSET# [id number] Completed 07/26/2023, 02/26/2023, 01/23/2023, Additional history exists [...] this encounter Medical Devices Implanted Type Area Luggage Repairer Device Identifier Shelf Expiration Date Model / Serial / Lot Cement Bone Simplex Hv & G - [id number] Implanted:Qty: 2 on 09/02/2020 by Gianni Hubbard MD at OR [facility] Right: Hip LUDY : ORTHOPAEDICS 08/11/2021 6195-1-010 / / [id number] Spacer Ring Aclde Distal Lg 14 - [id number] Implanted:Qty: 1 on 09/02/2020 by Gianni Hubbard MD at OR [facility] Right: Hip LUDY : ORTHOPAEDICS 11/25/2024 5572-0468 / / Accolade C Cs 127 6 37/158 - [id number] Implanted:Qty: 1 on 09/02/2020 by Gianni Hubbard MD at OR [facility] Right: Hip LUDY : ORTHOPAEDICS 05/29/2023 6057-0637D / / [id number] Hip Cocr Lfit Head V40 28/+4 - [id number] Implanted:Qty: 1 on 09/02/2020 by Gianni Hubbard MD at OR [facility] Right: Hip LUDY : ORTHOPAEDICS 11/15/2024 6260-9-228 / / [id number] Hip Head Bipol Uhr Uni 28x52 - [id number] Implanted:Qty: 1 on 09/02/2020 by Gianni Hubbard MD at OR [facility] Right: Hip LUDY : ORTHOPAEDICS 11/25/2024 UH1-52-28 / / [id number] Lens Intraoc 17.5 - [id number] - [id number] Implanted:Qty: 1 on 03/23/2022 by Rad Morgan MD at OR [facility] Left: Eye BAUSCH & LOMB 10/11/2026 [id number] / [id number] / [id number] Lens Intraoc 18.0 - [id number] - [id number] Implanted:Qty: 1 on 03/30/2022 by Rad Morgan MD at OR [facility] Right: Eye BAUSCH & LOMB 01/11/2027 [id number] / [id number] / [id number] documented as of this encounter Advance Directives [...] Power of Attor jus? No Care Teams Drug Regulatory Affairs Specialist Relationship Specialty Start Date End Date Kaiser Amanda MD [address] [address] PCP - General Family Medicine 04/11/21 documented as of this encounter
--- OUTSIDE RECORDS SUMMARY | 2024-01-29 20:43 | External Medical Summary ---
Author Name Unknown Address Unknown Organization K01:LABORATORY [facility] - [address] [place] [facility] Laboratory Report Ordering Provider Test Date Status NORY GOMEZ 10/09/2023 16:11:47 Final Observation Date Value Abnormality Reference (Units) Status Bacteria identified in Specimen by Culture 10/09/2023 16:11:47 No significant growth Final Test: Culture, Urine, Quant itative
Specimen Source: Urine, Clean Catch
Specimen Type: Urine
Specimen Date: 10/09/2023 1611
Result Date: 10/10/2023 1534
Result Status: Final result
Resulting Lab: LABORATORY [facility]
[address]
[place] [address]

CULTURE

No significant growth

null Performing Location LABORATORY [facility] - [address] [address]
--- OUTSIDE RECORDS SUMMARY | 2024-01-29 20:43 | External Medical Summary ---
Author Name Unknown Address Unknown Organization : Laboratory Report Ordering Provider Test Date Status NORY GOMEZ 10/09/2023 11:24:28 Final Observation Date Value Abnormality Reference (Units ) Status Glucose Point of Care 10/09/2023 11:24:28 240 Above high normal 70-120 (mg/dL) Final Performing Location
--- OUTSIDE RECORDS SUMMARY | 2024-01-29 20:43 | External Medical Summary ---
Author Name Unknown Address Unknown Organization K1F:LABORATORY [facility] - [address] [place] [address] Laboratory Report Ordering Provider Test Date Status RAVITRENTON 10/11/2023 03:57:00 Final Warfarin Therapy
INR: 2 .0-3.0 conventional anticoagulation
INR: 2.5- 3.5 high intensity anticoagulation Observation Date Value Abnormality Reference (Units ) Status PT 10/11/2023 03:57:00 25.5 Above high normal 11 .6-15.2 (seconds) Final INR 10/11/2023 03:57:00 2.3 Above high normal 0. 8-1.2 Final Performing Location LABORATORY [facility] - [address] [place] [address]
--- OUTSIDE RECORDS SUMMARY | 2024-01-29 20:43 | External Medical Summary ---
Author Name Unknown Address Unknown Organization : Laboratory Report Ordering Provider Test Date Status PETER CAMEJO 10/10/2023 11:13:20 Final Observation Date Value Abnormality Reference (Units ) Status Glucose Point of Care 10/10/2023 11:13:20 238 Above high normal 70-120 (mg/dL) Final Performing Location
--- OUTSIDE RECORDS SUMMARY | 2024-01-29 20:43 | External Medical Summary ---
Author Name Unknown Address Unknown Organization K1F:LABORATORY [facility] - [address] [place] [address] Laboratory Report Ordering Provider Test Date Status NORY GOMEZ 10/09/2023 16:11:47 Final Observation Date Value Abnormality Reference (Units ) Status RBC, Urine 10/09/2023 16:11:47 0-2 0-2 (/HPF) Final WBC, Urine 10/09/2023 16:11:47 10-19 Abnormal 0-2 (/HPF) Final Bacteria [#/area] in Urine sediment by Microscopy high power field 10/09/2023 16:11:47 0-25 0-25 (/HPF) Final Performing Location LABORATORY [facility] - [address] [place] [address]
--- OUTSIDE RECORDS SUMMARY | 2024-01-29 20:43 | External Medical Summary ---
Author Name Unknown Address Unknown Organization K1F:LABORATORY [facility] - [address] [place] [address] Laboratory Report Ordering Provider Test Date Status CHRIS LINN 10/09/2023 04:11:00 Final Observation Date Value Abnormality Reference (Units ) Status SYNC LEUKOCYTES IN BLOOD BY AUTOMATED COUNT 10/09/2023 04:11:00 6.03 4.00-10.80 (K/uL) Final Segs 10/09/2023 04:11:00 54.2 40.0-75.0 (%) Final Lymphs % 10/09/2023 04:11:00 31.8 18.0-42.0 (%) Final Monos 10/09/2023 04:11:00 9.5 1.0-11.0 (%) Final Eosinophils 10/09/2023 04:11:00 3.0 0.0-6.0 (%) Final Basos 10/09/2023 04:11:00 1.0 0.0-2.0 (%) Final Immature Granulocyte, Percent 10/09/2023 04:11:00 0.5 0.0-2.0 (%) Final Absolute Segs 10/09/2023 04:11:00 3.27 1.80-7.70 (K/uL) Final Lymphs, absolute 10/09/2023 04:11:00 1.92 1.00-4.80 (K/ul) Final Monos, Abs 10/09/2023 04:11:00 0.57 0.00-1.10 (K/uL) Final Eos, Abs 10/09/2023 04:11:00 0.18 0.00-0.70 (K/uL) Final Basos, Abs 10/09/2023 04:11:00 0.06 0.00-0.20 (K/uL) Final Immature Granulocytes, Number 10/09/2023 04:11:00 0.03 0.00-0.20 (K/uL) Final Performing Location LABORATORY [facility] - [address] [address]
--- OUTSIDE RECORDS SUMMARY | 2024-01-29 20:43 | External Medical Summary ---
Author Name Unknown Address Unknown Organization : Laboratory Report Ordering Provider Test Date Status NORY GOMEZ 10/09/2023 16:23:09 Final Observation Date Value Abnormality Reference (Units ) Status Glucose Point of Care 10/09/2023 16:23:09 180 Above high normal 70-120 (mg/dL) Final Performing Location
--- OUTSIDE RECORDS SUMMARY | 2024-01-29 20:43 | External Medical Summary | Summary of Care ---
Author Name Unknown Organization [facility] Address [address] [facility] [address] Phone [phone] Care Team Providers Care Graphics Software Engineer Name Role Phone Kaiser Amanda MD Primary Care Provider [phone] Encounter Details Date Type Department Care Team (Late st Contact Info) Description 10/12/2023 Population Health External Data Unspecified Department Allergies Active Allergy Reactions Criticality Noted Date Comments Cat Dander Itching 07/14/2016 documented as of this encounter (statuses as of 10/12/2023) Medications Medication Sig Dispensed Refills Start Date [...] Blood)Indications: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 ([facility]),Type 2 diabetes mellitus with hemoglobin A1c goal of less than 7.5% ([facility]) USE STRIP TO CHECK GLUCOSE ONCE DAILY [...] MG Sublingual Tablet Sublingual (Nitrostat)Indicatio ns:Stable angina ([facility]) Place 1 Tablet under the tongue every [...] as of this encounter (statuses as of 10/12/2023) Active Problems Problem Noted Date Diagnosed Date [...] as of this encounter (statuses as of 10/12/2023) Resolved Problems Problem Noted Date Diagnosed Date [...] as of this encounter (statuses as of 10/12/2023) Immunizations Name Administration Dates Next Due COVID-19 mRNA, LNP-s, No Pre serve, 2-Dose Series (Grata) 04/23/2021,08/09/2020,07/12/2020 Covid-19, Mrna, Lnp-s, Pf, B ivalent, [...] (15 years old or older) Yes 10/07/19 24 Cognitive Status Response Date of Assessm ent Because of a physical, menta l, or emotional condition, do you have serious difficulty concentrating, remembering, or making decisions? (5 years old or older) No 10/07/2023 documented as of this encounter Plan of Treatment Upcoming Encounters Date Type Department Care Team (Late st Contact Info) Description 10/17/2023 10:40 AM EDT Anticoagulation Pharmacy, [place] [address] [address] Pharmacist1, [facility] [place] [address] [address] 10/17/2023 11:00 AM EDT Office Visit Family [facility], [place] [address] [phone] Kaiser Amanda MD [address] [address] 10/22/2023 9:15 AM EDT Office Visit Urology Rolo Colon [address] [address] Bert Boogie Jr., MD [address] [facility] [address] [address] 10/29/2023 2:30 PM EDT Office Visit [facility]Michael[facility] [address] [address] [facility] [address] [address] 11/07/2023 2:30 PM EDT Office Visit NeurologyMichaelwn [address] [address] Ruth Lobo PA-C [address] [place] [address] 01/21/2024 2:00 PM EDT Office Visit Endocrinology, [place] [address] [place] [address] Sakina Jones MD [address] [place] [address] 01/25/2024 3:30 PM EDT Office Visit [facility] [address] [place] [address] Laney Hogue MD [address] [place] [address] 02/25/2024 9:20 AM EDT Office Visit Family [facility] [address] [phone] Kaiser Amanda MD [address] [place] [address] Scheduled Procedures Name Priority Associated Diagnoses Date/Ti [...] 04/16/2022, Additional history exists B-12 07/25/2024 07/26/2023, 10/3 [...] D LEVEL ONCE IN A LIFETIME-USE SMARTSET# [id number] Completed 07/26/2023, 02/26/2023, 01/23/2023, Additional history exists [...] this encounter Medical Devices Implanted Type Area Steel Pourer Device Identifier Shelf Expiration Date Model / Serial / Lot Cement Bone Simplex Hv & G - [id number] Implanted:Qty: 2 on 09/02/2020 by Gianni Hubbard MD at OR [facility] Right: Hip LUDY : ORTHOPAEDICS 08/11/2021 6195-1-010 / / [id number] Spacer Ring Aclde Distal Lg 14 - [id number] Implanted:Qty: 1 on 09/02/2020 by Gianni Hubbard MD at OR [facility] Right: Hip LUDY : ORTHOPAEDICS 11/25/2024 9973-1904 / / Accolade C Cs 127 6 37/158 - [id number] Implanted:Qty: 1 on 09/02/2020 by Gianni Hubbard MD at OR [facility] Right: Hip LUDY : ORTHOPAEDICS 05/29/2023 6057-0637D / / [id number] Hip Cocr Lfit Head V40 28/+4 - [id number] Implanted:Qty: 1 on 09/02/2020 by Gianni Hubbard MD at OR [facility] Right: Hip LUDY : ORTHOPAEDICS 11/15/2024 6260-9-228 / / [id number] Hip Head Bipol Uhr Uni 28x52 - [id number] Implanted:Qty: 1 on 09/02/2020 by Gianni Hubbard MD at OR [facility] Right: Hip LUDY : ORTHOPAEDICS 11/25/2024 UH1-52-28 / / [id number] Lens Intraoc 17.5 - [id number] - [id number] Implanted:Qty: 1 on 03/23/2022 by Rad Morgan MD at OR [facility] Left: Eye BAUSCH & LOMB 10/11/2026 [id number] / [id number] / [id number] Lens Intraoc 18.0 - [id number] - [id number] Implanted:Qty: 1 on 03/30/2022 by Rad Morgan MD at OR [facility] Right: Eye BAUSCH & LOMB 01/11/2027 [id number] / [id number] / [id number] documented as of this encounter Advance Directives [...] Power of Attor jus? No Care Teams Graphics Software Engineer Relationship Specialty Start Date End Date Kaiser Amanda MD [address] [address] PCP - General Family Medicine 04/11/21 documented as of this encounter
--- OUTSIDE RECORDS SUMMARY | 2024-01-29 20:43 | External Medical Summary ---
Author Name Unknown Address Unknown Organization K1F:LABORATORY [facility] - [address] [place] [address] Laboratory Report Ordering Provider Test Date Status NORY GOMEZ 10/10/2023 03:31:00 Final Observation Date Value Abnormality Reference (Units ) Status WBC, Total 10/10/2023 03:31:00 5.57 4.00-10.80 (K/uL) Final RBC 10/10/2023 03:31:00 3.52 4.50-5.25 (M/uL) Final Hemoglobin 10/10/2023 03:31:00 10.9 Below low normal 14.0-16.8 (g/dL) Final HCT 10/10/2023 03:31:00 33.6 Below low normal 40.0-48.4 (%) Final MCV 10/10/2023 03:31:00 95.5 82.0-99.5 (fL) Final MCH 10/10/2023 03:31:00 31.0 27.0-34.0 (pg) Final MCHC 10/10/2023 03:31:00 32.4 32.0-36.0 (g/dL) Final RDW 10/10/2023 03:31:00 13.5 11.5-15.5 (%) Final Platelets 10/10/2023 03:31:00 197 140-400 (K/uL) Final MPV 10/10/2023 03:31:00 8.8 6.6-11.1 (fL) Final Nucleated erythrocytes/100 leukocytes [Ratio] in Blood by Automated count 10/10/2023 03:31:00 0 <=0 (/100 WBCs) Final Performing Location LABORATORY [facility] - [address] [place] [address]
--- OUTSIDE RECORDS SUMMARY | 2024-01-29 20:43 | External Medical Summary | Summary of Care ---
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 [place] [address] Referral ID Status Reason Start Date Expiration Date Visits Requested Visits Authorized [id number] Authorized Specialty Services Required 10/11/2023 99 99 Question Answer Referral Priority Within 3 days (urgent) Where should this appointment be scheduled? Candido Comments Anticoagulation referral for management of: Warfarin Indication and INR goal for Warfarin Management: History of thromboembolism. Goal INR 2.0 - 3.0 Relevant History: N/A Enoxaparin bridging required? Yes Minimum frequency patient should be seen in person for medication management: as appropriate per clinical condition and patient status By my signature, I understand that my patient Lewis Alarcon will have his medication therapy managed by the [facility] ([facility]) per established policies, procedures, and protocols. I also certify that this referral may serve as an initiation of service for the management of drug therapy in the above noted patient. [facility] providers will be responsible for scheduling patient visits, obtaining appropriate laboratory studies, and adjusting medication management therapy per patient's need, in addition to those roles spelled out in the clinic policy, procedures, and drug management protocols. I understand that the service provided by the [facility] is voluntary and have informed patient that they can refuse the service at their discretion. I am aware that the [facility] Clinic will provide me with a copy of the patient encounter via [facility]. I authorize the [facility] to carry out these activities on my behalf. I consider this program to be a necessary part of the patient's medical care. Scott Skinner DO Discharge Order Reason for Visit * Reason Comments General Illness * Auth/Cert Specialty Diagnoses / Procedures Referred By Fauzia oconnor Referred To Contact [address] [address] Phone: [phone] Emergency Medicine [address] [address] Referral ID Status Reason Start Date Expiration Date Visits Re quested Visits Authorized [id number] Encounter Details Date Type Department Care Team (Latest Contact Info) Description 10/06/2023 6:37 PM EDT - 10/11/2023 10:52 AM EDT Hospital Encounter 6B [facility] 6th Floor [address] [place] [address] [id number] Mamadou Clarke MD [address] [place] [phone] Gloria Hi MD [address] [place] [address] [phone] Liam Barajas MD [address] [place] [address] [phone] Scott Skinner DO [address] [place] [address] [phone] Various: KRAVS,EKG Discharge Disposition: Home with Services Allergies Active Allergy Reactions Criticality Noted Date Comments Cat Dander Itching 07/14/2016 documented as of this encounter (statuses as of 10/11/2023) Medications Medication Sig Dispensed Refills Start Date End Date Status OneTouch Ultra 2 w/Device KitIndications:Typ e 2 diabetes mellitus with hemoglobin A1c goal of less than 7.5% ([facility]) Testing blood sugars twice daily Dx: E11.9 1 Kit 11 2 Active OneTouch Delica Lancets 30GIndications:Typ e 2 diabetes mellitus with hemoglobin A1c goal of less than 7.5% ([facility]),Type 2 diabetes mellitus with polyneuropathy ([facility]) Check BS once daily E11.9 100 [...] hemoglobin A1c goal of less than 7.5% ([facility]) TAKE 1 TABLET BY MOUTH DAILY. [...] for flares 60 g 2 3 Active Ketoconazole 2 % External Shampoo (Nizoral) APPLY TO SCALP AND EYEBROWS DAILY- LATHER, WAIT 5 MINUTES, THEN RINSE 120 mL 4 Active Sincere Moeller In Vitro Strip (Glucose Blood)Indications: [...] by mouth every 6 hours. As needed 4 Active Tamsulosin HCl 0.4 MG Oral Capsule (Flomax) Take 1 Capsule by mouth at bedtime. 30 Capsule 4 024 Active Polyethylene Glycol 3350 17 GM Oral [...] in the evening. 90 Tablet 4 024 Active Acetaminophen 325 MG Oral Tablet (Tylenol) Take 3 Tablets (975 mg) by mouth every 6 hours. 30 Tablet 2 Discontinued Polyethylene Glycol 3350 17 GM Oral Packet (Miralax) Take 1 Packet (17 g) by mouth in the morning. Do not start before April 19, 2022. 14 Each 2 Discontinued Mupirocin 2 % External Ointment (Bactroban) Apply topically to affected area 3 times a day. Apply to biopsy site on left shoulder twice daily as needed 22 g 1 3 024 Discontinued(Me dication List Clean Up) Mupirocin 2 % External Ointment (Bactroban) Apply to biopsy site on left shoulder twice daily 22 g 1 3 024 Discontinued(Me dication List Clean Up) Triamcinolone Acetonide 0.1 % External Cream (Aristocort) Apply to rash on abdomen twice daily as needed 80 g 5 3 Discontinued Ketoconazole 2 % External Cream Apply to eyebrows twice daily 30 g 1 3 Discontinued(Me dication List Clean Up) Finasteride 5 MG Oral Tablet (Proscar) Take 1 Tablet by mouth in the morning. 90 Tablet 3 3 Discontinued Tamsulosin HCl 0.4 MG Oral Capsule (Flomax) Take 1 Capsule by mouth in the morning. 4 024 Discontinued Losartan Potassium 25 MG Oral Tablet (Cozaar) Take 1 Tablet by mouth in the morning. 90 Tablet 3 4 Discontinued Metoprolol Succinate ER 25 MG Oral Tablet Extended Release 24 Hour (toPROL XL) Take 1 Tablet by mouth at bedtime. 90 Tablet 3 4 Discontinued Amoxicillin-Pot Clavulanate 875-125 MG Oral Tablet (Augmentin)Indicat ions:Acute cystitis with hematuria Take 1 Tablet by mouth in the morning and 1 Tablet before bedtime. Do all this for 10 days. 20 Tablet 4 024 Discontinued Metoprolol Succinate ER 25 MG Oral Tablet Extended Release 24 Hour (toPROL XL) Take 0.5 Tablets by mouth at bedtime. 15 Tablet 4 024 Discontinued documented as of [...] unspecified site 12/16/2018 04/11/2019 Severe dehydration 12/16/2018 08/13/201 9 Hypercalcemia 12/16/2018 10/10/2023 Lactic acidosis 12/16/2018 [...] mRNA, LNP-s, No Pre serve, 2-Dose Series (Parudi) 04/23/2021,08/09/2020,07/12/2020 Covid-19, Mrna, Lnp-s, Pf, B ivalent, [...] Sign Reading Time Taken Comments Blood Pressure 102/63 10/11/2023 6:43 AM EDT Pulse 68 10/11/2023 6:43 AM EDT Temperature 35.5 C (95.9 F) 10/11/2023 6:39 AM ED T Respiratory Rate 16 10/11/2023 6:39 AM EDT Oxygen Saturation 99% 10/11/2023 6:43 AM EDT Inhaled Oxygen Concentration - - Weight 74.4 kg (164 lb) 10/07/2023 12:10 AM EDT Height 175.3 cm (5' 9") 10/06/2023 11:53 PM EDT Body Mass Index 24.22 10/06/2023 11:53 PM EDT documented in this encounter Functional [...] No 10/07/2023 documented as of this encounter Discharge Summaries * Scott Skinner, DO - 10/11/2023 9:00 AM EDT [address] [address] Admission Date: 10/06/2023 Discharge Date: 10/11/2023 RECOMMENDED TO DO FOR NEXT PROVIDER(S): Monitor orthostatic vital signs REASON(S) FOR MEDICATION CHANGE(S): Losartan discontinued due to orthostasis Metoprolol decreased dose due to orthostasis Proscar discontinued due to orthostasis Flomax change to evening dosing to minimize risks of syncope Midodrine added for orthostasis DISPOSITION ON DISCHARGE: Home with Servicesolla with health services Active Hospital Problems Diagnosis *Principal Diagnosis - Orthostatic hypotension Dysautonomia (HCC) Hyperparathyroidism (HCC) Essential hypertension with goal blood pressure less than 130/80 Type 2 diabetes mellitus with hemoglobin A1c goal of less than 7.5% (HCC) Resolved Hospital Problems Diagnosis Date Resolved Syncope and collapse 10/10/2023 Elevated lactic acid level 10/10/2023 Complicated UTI (urinary tract infection) 10/11/2023 ADMISSION HISTORY & PHYSICAL EXAM (focused): I refer you to the history and physical for completeness. Patient was getting up out of his recliner to go to the bathroom when he felt lightheaded and as if he was going to pass out. He was able to make it to bed to lie down. This reoccurred later on the day and came to the emergency room. He did have a significant change in his medications recently in his actually recovering from recent intracranial hemorrhage. He was noted to be quite orthostatic. HOSPITAL COURSE (focused): Patient was cared for in the hospital. He was monitored on telemetry without any significant arrhythmias noted. Initially his losartan was discontinued and Proscar was discontinued for his orthostasis. He was given fluid resuscitation for his orthostasis as well. His symptoms improved somewhat however his orthostatic vital signs remained positive. He was seen by Physical therapy any had training on changing of his positions slowly. He also was started on midodrine to help minimize the fluctuations in his blood pressure with all these interventions his orthostatic symptoms resolved. His fluctuation in blood pressures with positional changes significantly improved. He was returning to his baseline functioning. His INR was monitored throughout his hospitalization. Care management was involved and continued his home health services will be discharged home with his family with outpatient follow up with his providers with the significant medication changes to minimize his risk of recurrent o rthostasis Operations & Procedures: none Complications: none significant Significant Lab and Imaging Results: INR on day of discharge 2.3 Results Pending at Discharge: Lab Results Pending at Discharge: PT INR Routine MEDICATION UPDATES AT DISCHARGE START taking these medications INSTRUCTIONS midodrine 5 MG Tablet Commonly known as: Proamatine Notes to patient: Used to treat low blood pressure Take 1 Tablet by mouth in the morning and 1 Tablet at noon and 1 Tablet in the evening. CHANGE how you take these medications INSTRUCTIONS MetFORMIN 1000 MG Tablet Commonly known as: Glucophage What changed: how much to take how to take this when to take this Notes to patient: Used to lower blood sugar in patients with high blood sugar (diabetes) TAKE 1 TABLET BY MOUTH TWICE A DAY WITH BREAKFAST AND DINNER Polyethylene Glycol 3350 packet Commonly known as: Miralax What changed: when to take this reasons to take this Mix 1 Packet in 4 to 8 ounces of any beverage and drink by mouth daily as needed for Constipation. tamsulosin 0.4 MG Capsule Commonly known as: Flomax What changed: when to take this Notes to patient: Used to treat the signs of an enlarged prostate Take 1 Capsule by mouth at bedtime. CONTINUE taking these medications INSTRUCTIONS Acetaminophen 325 MG Tablet Commonly known as: Tylenol Notes to patient: Tomorrow morning Take 3 Tablets by mouth every 6 hours. As needed atorvaSTATin 40 MG Tablet Commonly known as: [...] Commonly known as: Colace Notes to patient: Used to treat constipation Take 1 Capsule (100 mg) by mouth [...] Commonly known as: Nizoral Notes to patient: Antidandruff shampoo APPLY TO SCALP AND EYEBROWS DAILY- LATHER, WAIT 5 MINUTES, THEN RINSE Nitroglycerin 0.4 MG Subl Commonly known as: [...] or prevent GI (gastrointestinal) ulcers, gastroesophageal reflux disease (GERD; acid reflux), heartburn, syndromes caused by lots of stomach acid, and ulcers of the esophagus Take 1 Capsule by mouth in the morning. 1 hour before the first meal of the day. One[employer]Now Delica Lancets 30G Misc Check BS once daily E11.9 WealthyLifeuch Ultra 2 w/Device Kit Testing blood sugars twice daily Dx: E11.9 OneChip PhotonicsTouch Verio Strp Generic drug: Glucose Blood USE STRIP TO CHECK GLUCOSE ONCE DAILY Vitamin D 25 MCG (1000 UT) Tabs [...] in the morning. STOP taking these medications amoxicillin-clavulanate 875-125 MG per Tablet Commonly known as: Augmentin Finasteride 5 MG Tablet Commonly known as: Proscar losartan 25 MG Tablet Commonly known as: Cozaar metoprolol succinate XL 25 MG Tb24 Commonly known as: toPROL XL Triamcinolone Acetonide 0.1 % cream Commonly known as: Aristocort SCHEDULED FOLLOW-UP: Future Appointments Appt Date/Time Provider Department 10/11/2023 5:10 PM [facility]17/2023 11:00 AM Kaiser Amanda MD [facility] 10/22/2023 9:15 AM Bert Boogie Jr., MD Urology [facility] 10/29/2023 2:30 PM [facility] 11/07/2023 2:30 PM [facility]obo [facility] 01/21/2024 2:00 PM [facility]/25/2024 3:30 PM Laney Hogue MD [facility] Surgery [facility] 02/25/2024 9:20 AM Kaiser Amanda MD [facility] Outpatient Follow Up Anti Coagulation Referral OP Other Information Indwelling Devices: LINES ALL Duration Urethral Catheter 37 days Peripheral Line Lower;Right;Posterior Arm 20 Gauge 4 days Vital Signs (last recorded): Most Recent Systolic BP: 102 mmHg (10/11/23 0643) Most Recent Diastolic BP: 63 mmHg (10/11/23 0643) Pulse: 68 (10/11/23 0643) Resp: 16 (10/11/23638) Most Recent Temperature: 35.5 C (10/11/23638) Weight: 74.4 kg (164 lb) (10/07/23 0010) SpO2: 99 % (10/11/23642) Allergies: Cat dander Activity: as tolerated Diet: diabetic diet Code Status: Full Code Condition on Discharge: stable Isolation status: None Cognition: At baseline HOSPITAL CONSULTS ORDERED: ADULT PHYSICAL THERAPY CONSULT IP ADULT OCCUPATIONAL THERAPY CONSULT IP REFERRING PHYSICIAN: Ref: [id number]] NO STREET ADDRESS AVAILABLE None (office) None (fax) PRIMARY CARE PROVIDER: PCP: Kaiser Amanda MD [address] [facility] / [place] [phone] (office) [phone] (fax) Note: To contact a physician responsible for this patients hospital care, please call Pins [phone]. I certify this patient is confined to the home and needs [facility] [place] care, physical therapy and/or speech therapy, or [...] leave the home. The patient had a yieg-ie-hsuy encounter with an allowed provider type on 10/11/2023 and the encounter was related to the primary reason for home health care. Under situations in which I am an acute/post acute facilityphysician who will not be following the patient's plan of care, I authorized services on this plan of care and I transfer the patient for plan of care certification to the primary care physician named below who will follow the patient and update the plan of care. Primary care physician Kaiser Amanda MD I certify this patient is confined to the home and needs intermittent [facility] care, physical therapy and/or speech therapy, or [...] leave the home. The patient had a huun-mk-tlsn encounter with an allowed provider type on 10/11/23 and the encounter was related to the primary reason for home health care. Under situations in whichI am an acute/post acute facility physician who will not be following the patient's plan of care, Iauthorized services on this plan of care and I transfer the patient for plan of care certification to the primary care physician named below who will follow the patient and update the plan of care. Primary care physician Kaiser Amanda MD I spent a total of 36 minutes coordinating, documenting, and providing care for this patient excluding time spent in the performance of separately billed services. documented in this encounter Discharge Instructions * Discharge Instr - AVS* Scott Skinner DO - 10/11/2023 9:00 AM EDT Discharge Date: 10/11/2023 The information below provides you with the instructions and the list of medications you need to betaking following discharge from the hospital. If you have any questions, please ask before leaving. If you have questions after leaving, you can reach us at the numbers below. YOUR HOSPITAL PROVIDERS: Discharging Provider: Scott Skinner DO Provider Department: Hospital Medicine To reach this Provider Sunday through Sunday (8:00 AM to 4:30 PM) for any questions or test results: Call [phone] For after-hours concerns: Call [phone] and have your provider paged, or the provider bond analyst for the Department of Hospital Medicine paged. [...] available, you can go to your [facility] during their business hours. In an EMERGENCY situation: Call 911 or go to the nearest emergency room. A BRIEF SUMMARY OF YOUR HOSPITAL STAY: You came to the hospital with: complaint of passing out and falling. Your main diagnosis at discharge was: You were diagnosed with orthostatic hypotension which is large fluctuations in your blood pressure with changing of position. We adjusted some your medications and added medication to help with this Operations & Procedures performed: none Complications: none significant Inpatient test results that are pending at discharge: none Advance Directive Documented: Advance Directive Does the Patient have an Advance Directive? No YOUR FOLLOW UP APPOINTMENTS: Primary Care Provider Information: PCP: Kaiser Amanda MD [address] [facility] / [place] [phone] (office) [phone] (fax) An appointment was requested with your PCP (Kaiser Amanda MD) within 1-2 weeks . (Please take this form to this visit with your primary care physician.) You need the following studies in the future: none INSTRUCTIONS: Diet: Carbohydrate-controlled diet, Heart healthy diet Activity: As tolerated, change positions slowly Additional Instructions: - Call your primary care physician or seek medical attention if recurrent lightheadedness dizzinessor passing out. * Pharmacy Instr - AVS* Nasir Varela, [facility] - 10/07/2023 2:12 AM EDT Warfarin dosing instructions after discharge: You should have a prescription for 5 mg tablets Please take the following doses of warfarin after discharge: Date: Dose using warfarin 5 mg tablets 10/11/2023 Take 1 tablet = 5 mg 10/12/2023 Take 1 tablet = 5 mg 10/13/2023 Take 1 tablet = 5 mg 10/14/2023 Take 1 tablet = 5 mg 10/15/2023 Take 1 tablet = 5 mg The anticoagulation clinic pharmacist will provide you with further dosing and appointment instructions. If you have any questions regarding your anticoagulation therapy, please Contact Anticoagulation Clinic at [phone] or . Please share the following information [...] were: INR Date/Time Value Ref Range Status 10/07/2023 12:27 AM 1.5 (H) 0.8 - 1.2 Final HGB Date/Time Value Ref Range Status 10/06/2023 07:27 PM 12.4 (L) 14.0 - 16.8 g/dL Final HCT Date/Time Value Ref Range Status 10/06/2023 07:27 PM 37.8 (L) 40.0 - 48.4 % Final PLT Date/Time Value Ref Range Status 10/06/2023 07:27 PM 251 140 - 400 K/uL Final Warfarin Administrations (last 720 hours) None Warfarin 5 mg on 10/08 and 10/09 documented in this encounter Progress Notes * Nasir Varela RPh - 10/11/2023 9:08 AM EDT PHARMACY DISCHARGE MEDICATION RECONCILIATION REVIEW [address] [address] Name: Lewis Alarcon Location: [facility] [place] 6B-[id number]/D Date: 10/11/2023 Time: 9:08 AM This discharge medication reconciliation was reviewed by a pharmacist and no corrections or interventions were required. * Ritesh Jackson RPh - 10/11/2023 7:23 AM EDT PHARMACY ANTICOAGULATION WARFARIN (Coumadin) Assessment [address] [address] Name: Lewis Alarcon Location: [facility] [place] 6B-[id number]/D Date: 10/11/2023 Time: 7:23 AM Lewis Alarcon is a 72 year old male admitted for Orthostatic hypotension. Pharmacy was consulted for warfarin dosing and monitoring. Anticoagulation Therapy Goals Indication for Anticoagulation: Deep Vein Thrombosis (DVT) acquired prior to this admission, New Pulmonary Embolism (PE) acquired this admission Anticipated Duration of Therapy: Lifetime Target INR: 2.0-3.0 (Prophylaxis of venous thrombosis) Risk factors for anticoagulation therapy: Age>65, Hypertension Other please comment: 5mg taken yesterday Prior to Admission Management Anticoagulation Managed By: Anticoagulation Clinic Tablet Size/Strength: 5 mg Anticoagulation Regimen: 5mg daily Anticoagulation Episode Summary Current INR goal: 2.0-3.0 TTR: 68.3% (1 y) Next INR check: 10/09/2023 INR from last check: Most recent INR: 2.3 (10/11/2023) Weekly max warfarin dose: Target end date: INR check location: Preferred lab: Send INR reminders to: Indications History of pulmonary embolism (Primary) [Z86.711] History of DVT (deep vein thrombosis) [Z86.71] Comments: 2 episodes of VTE. Anticoagulation Care Providers Provider Role Specialty Phone number Nelly Chaney PA-C Referring Physician Preparation Plant Supervisor [phone] Labs INR Date/Time Value Ref Range Status 10/11/2023 03:57 AM 2.3 (H) 0.8 - 1.2 Final 10/10/2023 03:31 AM 2.3 (H) 0.8 - 1.2 Final 10/09/2023 04:11 AM 2.1 (H) 0.8 - 1.2 Final HGB Date/Time Value Ref Range Status 10/10/2023 03:31 AM 10.9 (L) 14.0 - 16.8 g/dL Final HCT Date/Time Value Ref Range Status 10/10/2023 03:31 AM 33.6 (L) 40.0 - 48.4 % Final PLT Date/Time Value Ref Range Status 10/10/2023 03:31 AM 197 140 - 400 K/uL Final Objective Warfarin Administrations (last 720 hours) Date/Time Action Medication Dose 10/10/23 1950 Given Warfarin Sodium (Coumadin) tab 5 mg 5 mg 10/09/232106 Given Warfarin Sodium (Coumadin) tab 5 mg 5 mg 10/08/231920 Given Warfarin Sodium (Coumadin) tab 7.5 mg 7.5 mg 10/07/232022 Given Warfarin Sodium (Coumadin) tab 7.5 mg 7.5 mg 10/07/23 0351 Given Warfarin Sodium (Coumadin) tab 5 mg 5 mg Assessment & Plan Assessment Dietary Assessment: Normal/expected PO intake Today's INR : Therapeutic Does the patient have any medication interactions: No Are there bleeding concerns with the patient: No Does the patient have any upcoming procedures: No Plan Warfarin Plan: Give Warfarin Specify Warfarin Dose: 5mg tonight Is the patient receiving a Bridging Agent: No Warfarin Patient Education : Complete and documented Reason Education Not Needed: acc Ritesh Jackson RPh * Scott Skinner DO - 10/10/2023 10:50 AM EDT Images from the original note were not included. [facility] 6B-[id number]/D INTERVAL HISTORY: Patient denied any lightheadedness or dizziness with getting out of bed this morning. Objective Physical Exam Most Recent Vital Signs: BP: 96 mmHg/57 mmHg (10/10/23 0750) Pulse: 69 (10/10/23 0750) Temp: 36.39 C (10/10/23 0715) Temp Summary: Temp Min: 35.7 C (96.3 F) Max: 36.4 C (97.5 F) SpO2: 97 % (10/10/23 0715) O2 flow rate: Supplemental O2 Delivery: Room Air, None (10/10/23 07) Constitutional: no acute distress CV: normal rate, normal rhythm Chest: normal respiratory effort, lungs clear to auscultation and percussion Abdomen: soft, no tenderness Neuro: alert, oriented to person, place, and time Peripheral Line Lower;Right;Posterior Arm 20 Gauge (Active) Number of days: 4 STUDIES: Encounter Orders Labs and other studies reviewed with pertinent findings noted below: INR 2.3 Basic metabolic profile reviewed, stable CBC reviewed stable Assessment and Plan IMPRESSION : Principal Problem: Orthostatic hypotension Active Problems: Type 2 diabetes mellitus with hemoglobin A1c goal of less than 7.5% (HCC) Essential hypertension with goal blood pressure less than 130/80 Complicated UTI (urinary tract infection) Hyperparathyroidism (HCC) Dysautonomia (HCC) Resolved Problems: Syncope and collapse Elevated lactic acid level DIFFERENTIAL AND PLAN: Patient with acute syncopal episode most likely due to orthostasis. Patient is symptomatically seems to be improved, however orthostatic vital signs still significantly positive. Despite discontinuing losartan. Start midodrine Continue to monitor orthostatic vitals Decrease metoprolol Continue Rocephin for UTI, he will complete course of antibiotics tomorrow Activity as tolerated Anticipate possible discharge tomorrow, home with Phone call to daughter and , updated. They did mentioned patient having some issues with his bowels. This could potentially be diabetic gastroparesis. Encourage them to continue to pursue outpatient evaluation. Does look like he was on somewhat of a bowel regimen at home already. PHARMACOLOGIC VTE PROPHYLAXIS: warfarin check daily dose (PHARMACIST MANAGED) Warfarin Sodium CODE STATUS: Full Code EXPECTED DISCHARGE DATE: 10/11/2023 * Ritesh Jackson [facility] - 10/10/2023 7:06 AM EDT PHARMACY ANTICOAGULATION WARFARIN (Coumadin) Assessment [address] [id number] Name: Lewis Alarcon Location: [facility] [place] [id number] Date: 10/10/2023 Time: 7:06 AM Lewis Alarcon is a 72 year old male admitted for Syncope and collapse. Pharmacy was consulted for warfarin dosing and monitoring. Anticoagulation Therapy Goals Indication for Anticoagulation: Deep Vein Thrombosis (DVT) acquired prior to this admission, New Pulmonary Embolism (PE) acquired this admission Anticipated Duration of Therapy: Lifetime Target INR: 2.0-3.0 (Prophylaxis of venous thrombosis) Risk factors for anticoagulation therapy: Age>65, Hypertension Other please comment: 5mg Prior to Admission Management Anticoagulation Managed By: Anticoagulation Clinic Tablet Size/Strength: 5 mg Anticoagulation Regimen: 5mg daily Anticoagulation Episode Summary Current INR goal: 2.0-3.0 TTR: 68.4% (1 y) Next INR check: 10/09/2023 INR from last check: Most recent INR: 2.3 (10/10/2023) Weekly max warfarin dose: Target end date: INR check location: Preferred lab: Send INR reminders to: Indications History of pulmonary embolism (Primary) [Z86.711] History of DVT (deep vein thrombosis) [Z86.718] Comments: 2 episodes of VTE. Anticoagulation Care Providers Provider Role Specialty Phone number Nelly Chaney PA-C Referring Physician Preparation Plant Supervisor [phone] Labs INR Date/Time Value Ref Range Status 10/10/2023 03:31 AM 2.3 (H) 0.8 - 1.2 Final 10/09/2023 04:11 AM 2.1 (H) 0.8 - 1.2 Final 10/08/2023 03:54 AM 1.8 (H) 0.8 - 1.2 Final HGB Date/Time Value Ref Range Status 10/10/2023 03:31 AM 10.9 (L) 14.0 - 16.8 g/dL Final HCT Date/Time Value Ref Range Status 10/10/2023 03:31 AM 33.6 (L) 40.0 - 48.4 % Final PLT Date/Time Value Ref Range Status 10/10/2023 03:31 AM 197 140 - 400 K/uL Final Objective Warfarin Administrations (last 720 hours) Date/Time Action Medication Dose 10/09/23 210 Given Warfarin Sodium (Coumadin) tab 5 mg 5 mg 10/08/23 192 Given Warfarin Sodium (Coumadin) tab 7.5 mg 7.5 mg 10/07/23 202 Given Warfarin Sodium (Coumadin) tab 7.5 mg 7.5 mg 10/07/23 0351 Given Warfarin Sodium (Coumadin) tab 5 mg 5 mg Assessment & Plan Assessment Dietary Assessment: Normal/expected PO intake Today's INR : Therapeutic Does the patient have any medication interactions: No Are there bleeding concerns with the patient: No Does the patient have any upcoming procedures: No Plan Warfarin Plan: Give Warfarin Specify Warfarin Dose: 5mg tonight Is the patient receiving a Bridging Agent: No Warfarin Patient Education : Complete and documented Reason Education Not Needed: acc Ritesh Jackson RPh * Liam Barajas MD - 10/09/2023 5:08 PM EDT Images from the original note were not included. [facility] [place] [id number]/D 72 y/o male with PMHx significant for orthostatic hypotension, spinal cord injury, intracranial hemorrhage following fall one month ago, type 2 DM, BPH with urinary symptoms, HTN and HLD who was admitted with near syncope in setting of orthostatic hypotension, weakness and ongoing Klebsiella UTI. INTERVAL HISTORY: Continues with episodes of orthostatic hypotension. Also complains of dysuria today. BMs continue formed. Unlikely GI pathogen. Objective Physical Exam Most Recent Vital Signs: BP: 127 mmHg/74 mmHg (10/09/23 151) Pulse: 62 (10/09/231518) Temp: 35.72 C (10/09/231518) Temp Summary: Temp Min: 35.6 C (96.1 F) Max: 36.2 C (97.2 F) SpO2: 97 % (10/09/231518) O2 flow rate: Supplemental O2 Delivery: Room Air, None (10/09/231518) Physical Exam Vitals reviewed. Constitutional: Appearance: He [...] Status: He is alert. Motor: Weakness present. Peripheral Line Lower;Right;Posterior Arm 20 Gauge (Active) Number of days: 3 STUDIES: Encounter Orders Labs and other studies reviewed with pertinent findings noted below: Lab results within last 7 days (see chart for full results) Units 10/09/23 0411 10/08/23 0354 10/07/23 0502 HGB g/dL 10.7* 10.7* 11.1* HCT % 33.5* 32.9* 33.6* WBC K/uL 6.03 6.43 10.10 PLT K/uL 201 199 218 Lab results within last 7 days (see chart for full results) Units 10/09/23 0411 10/08/23 0354 10/07/23 0502 Sodium mmol/L 143 141 140 Potassium mmol/L 4.8 3.9 3.8 Chloride mmol/L 108* 107 106 CO2 mmol/L 23 BUN mg/dL 17 17 22* Creatinine mg/dL 1.0 0.9 1.0 Lab results within last 7 days (see chart for full results) Units 10/06/23 1927 Protein g/dL 6.2 Bilirubin, Total mg/dL 0.3 Alkaline Phosphatase U/L 60 AST U/L 15 ALT U/L 11 Lab results within last 7 days (see chart for full results) Units 10/07/23 0027 10/06/23 2159 10/06/23 1927 Lactate mmol/L 1.7 3.6* | 3.6* 5.5* Lab results within last 7 days (see chart for full results) Units 10/06/23 1927 Troponin T, High Sensitivity ng/L 21 Recent Cultures (2 Weeks) 10/06/2023 10/06/2023 10/04/2023 7:39 PM 7:27 PM 1:15 PM BLOOD CULTURE GROWTH No growth to date No growth to date -- QUANT URINE CULTURE GROWTH -- -- >100,000 colonies/mL Klebsiella pneumoniae Assessment and Plan IMPRESSION : Principal Problem: Syncope and collapse Active Problems: Type 2 diabetes mellitus with hemoglobin A1c goal of less than 7.5% (HCC) Hyperlipidemia with target LDL less than 100 Essential hypertension with goal blood pressure less than 130/80 Complicated UTI (urinary tract infection) Hyperparathyroidism (HCC) Elevated lactic acid level Dysautonomia (HCC) Resolved Problems: * No resolved hospital problems. * DIFFERENTIAL AND PLAN: Pending c diff/ GI panel. If negative, will consider fiber supplements. Orthostatic hypotension continues. PRN IVF Repeat UA/Cx given persistent symptoms Continue to monitor orthostatic VS. Symptoms likely related in part to orthostatic hypotension. Will switch flomax to bedtime Encourage PO today and repeat VS tomorrow Will need PT/OT/CM- HH vs Rehab Continue CTX for his UTI Follow AM labs PHARMACOLOGIC VTE PROPHYLAXIS: warfarin check daily dose (PHARMACIST MANAGED) Warfarin Sodium CODE STATUS: Full Code EXPECTED DISCHARGE DATE: 10/11/2023 I spent a total of 35 minutes coordinating, documenting, and providing care for this patient excluding time spent in the performance of separately billed services. * EdithJose Juan Edith, [facility] - 10/09/2023 8:34 AM EDT Pharmacy Consult for Warfarin (Coumadin) Management - Daily Progress Note Subjective Objective Labs Results for orders placed or performed during the hospital encounter of 10/06/23 BASIC METABOLIC PANEL Result Value Ref Range BUN 22 (H) 6 - 20 mg/dL Creatinine 1.1 0.6 - 1.2 mg/dL Estimated Glomerular Filtration Rate 71 >=60 mL/min Sodium 138 135 - 146 mmol/L Potassium 4.6 3.5 - 5.1 mmol/L Chloride 102 98 - 107 mmol/L CO2 18 (L) 22 - 32 mmol/L Anion Gap 18 (H) 7 - 15 mmol/L Glucose 199 (H) 70 - 120 mg/dL Calcium 8.7 8.4 - 10.2 mg/dL HEPATIC FUNCTION PANEL Result Value Ref Range Albumin 3.5 (L) 3.8 - 5.0 g/dL AST 15 10 - 50 U/L Alkaline Phosphatase 60 35 - 130 U/L ALT 11 10 - 50 U/L Bilirubin, Total 0.3 <=1.2 mg/dL Bilirubin, Direct <0.2 0.0 - 0.3 mg/dL Protein 6.2 6.0 - 8.3 g/dL TROPONIN T, HIGH SENSITIVITY Result Value Ref Range Troponin T, High Sensitivity 21 <=22 ng/L CULTURE, BLOOD Result Value Ref Range Blood Culture Growth No growth to date CULTURE, BLOOD Result Value Ref Range Blood Culture Growth No growth to date LACTATE WITH REFLEX IF ABNORMAL Result Value Ref Range Lactate 5.5 (HH) 0.4 - 2.0 mmol/L CBC Result Value Ref Range WBC 8.75 4.00 - 10.80 K/uL RBC 3.91 4.50 - 5.25 M/uL HGB 12.4 (L) 14.0 - 16.8 g/dL HCT 37.8 (L) 40.0 - 48.4 % MCV 96.7 82.0 - 99.5 fL MCH 31.7 27.0 - 34.0 pg MCHC 32.8 32.0 - 36.0 g/dL RDW 13.9 11.5 - 15.5 % PLT 251 140 - 400 K/uL MPV 8.8 6.6 - 11.1 fL nRBCs 0 <=0 /100 WBCs DIFFERENTIAL, AUTOMATED Result Value Ref Range WBC 8.75 4.00 - 10.80 K/uL Neutrophils % 72.9 40.0 - 75.0 % Lymphocytes % 18.9 18.0 - 42.0 % Monocytes % 6.3 1.0 - 11.0 % Eosinophils % 0.9 0.0 - 6.0 % Basophils % 0.5 0.0 - 2.0 % Immature Granulocytes % 0.5 0.0 - 2.0 % Absolute Neutrophils 6.39 1.80 - 7.70 K/uL Absolute Lymphocytes 1.65 1.00 - 4.80 K/ul Absolute Monocytes 0.55 0.00 - 1.10 K/uL Absolute Eosinophils 0.08 0.00 - 0.70 K/uL Absolute Basophils 0.04 0.00 - 0.20 K/uL Absolute Immature Granulocytes 0.04 0.00 - 0.20 K/uL BLOOD GAS, VENOUS Result Value Ref Range Temperature 37.0 C pH, Venous 7.399 7.320 - 7.430 units pCO2, Venous 34.2 (L) 40.0 - 60.0 mmHg pO2, Venous 49.5 25.0 - 50.0 mmHg Base Excess, Venous -3.0 (L) -2.0 - 2.0 mmol/L HGB 11.3 (L) 14.0 - 16.8 g/dL Oxyhemoglobin, Venous 80.8 40.0 - 85.0 % total Hgb Carboxyhemoglobin, Whole Blood 1.3 <=1.5 % total Hgb Methemoglobin, Whole Blood 0.5 <=1.5 % total Hgb Reduced Hemoglobin, Venous 17.4 % total Hgb O2 Content, Venous 12.9 7.0 - 18.0 %vol Bicarbonate, Whole Blood 20.7 (L) 23.0 - 31.0 mmol/L LACTATE Result Value Ref Range Lactate 3.6 (H) 0.4 - 2.0 mmol/L LACTATE WITH REFLEX IF ABNORMAL Result Value Ref Range Lactate 3.6 (H) 0.4 - 2.0 mmol/L LACTATE Result Value Ref Range Lactate 1.7 0.4 - 2.0 mmol/L PT INR Result Value Ref Range Prothrombin Time 18.4 (H) 11.6 - 15.2 seconds INR 1.5 (H) 0.8 - 1.2 CBC Result Value Ref Range WBC 10.10 4.00 - 10.80 K/uL RBC 3.54 4.50 - 5.25 M/uL HGB 11.1 (L) 14.0 - 16.8 g/dL HCT 33.6 (L) 40.0 - 48.4 % MCV 94.9 82.0 - 99.5 fL MCH 31.4 27.0 - 34.0 pg MCHC 33.0 32.0 - 36.0 g/dL RDW 13.9 11.5 - 15.5 % PLT 218 140 - 400 K/uL MPV 8.8 6.6 - 11.1 fL nRBCs 0 <=0 /100 WBCs BASIC METABOLIC PANEL Result Value Ref Range BUN 22 (H) 6 - 20 mg/dL Creatinine 1.0 0.6 - 1.2 mg/dL Estimated Glomerular Filtration Rate 79 >=60 mL/min Sodium 140 135 - 146 mmol/L Potassium 3.8 3.5 - 5.1 mmol/L Chloride 106 98 - 107 mmol/L CO2 23 22 - 32 mmol/L Anion Gap 11 7 - 15 mmol/L Glucose 144 (H) 70 - 120 mg/dL Calcium 8.4 8.4 - 10.2 mg/dL PT INR Result Value Ref Range Prothrombin Time 18.3 (H) 11.6 - 15.2 seconds INR 1.5 (H) 0.8 - 1.2 PT INR Result Value Ref Range Prothrombin Time 21.3 (H) 11.6 - 15.2 seconds INR 1.8 (H) 0.8 - 1.2 CBC Result Value Ref Range WBC 6.43 4.00 - 10.80 K/uL RBC 3.43 4.50 - 5.25 M/uL HGB 10.7 (L) 14.0 - 16.8 g/dL HCT 32.9 (L) 40.0 - 48.4 % MCV 95.9 82.0 - 99.5 fL MCH 31.2 27.0 - 34.0 pg MCHC 32.5 32.0 - 36.0 g/dL RDW 13.9 11.5 - 15.5 % PLT 199 140 - 400 K/uL MPV 9.0 6.6 - 11.1 fL nRBCs 0 <=0 /100 WBCs BASIC METABOLIC PANEL Result Value Ref Range BUN 17 6 - 20 mg/dL Creatinine 0.9 0.6 - 1.2 mg/dL Estimated Glomerular Filtration Rate 88 >=60 mL/min Sodium 141 135 - 146 mmol/L Potassium 3.9 3.5 - 5.1 mmol/L Chloride 107 98 - 107 mmol/L CO2 23 22 - 32 mmol/L Anion Gap 11 7 - 15 mmol/L Glucose 139 (H) 70 - 120 mg/dL Calcium 8.3 (L) 8.4 - 10.2 mg/dL MAGNESIUM Result Value Ref Range Magnesium 1.4 (L) 1.5 - 2.6 mg/dL PHOSPHORUS Result Value Ref Range Phosphorus 4.2 2.5 - 4.8 mg/dL PT INR Result Value Ref Range Prothrombin Time 23.5 (H) 11.6 - 15.2 seconds INR 2.1 (H) 0.8 - 1.2 BASIC METABOLIC PANEL Result Value Ref Range BUN 17 6 - 20 mg/dL Creatinine 1.0 0.6 - 1.2 mg/dL Estimated Glomerular Filtration Rate 79 >=60 mL/min Sodium 143 135 - 146 mmol/L Potassium 4.8 3.5 - 5.1 mmol/L Chloride 108 (H) 98 - 107 mmol/L CO2 26 22 - 32 mmol/L Anion Gap 9 7 - 15 mmol/L Glucose 156 (H) 70 - 120 mg/dL Calcium 8.9 8.4 - 10.2 mg/dL MAGNESIUM Result Value Ref Range Magnesium 1.4 (L) 1.5 - 2.6 mg/dL CBC Result Value Ref Range WBC 6.03 4.00 - 10.80 K/uL RBC 3.51 4.50 - 5.25 M/uL HGB 10.7 (L) 14.0 - 16.8 g/dL HCT 33.5 (L) 40.0 - 48.4 % MCV 95.4 82.0 - 99.5 fL MCH 30.5 27.0 - 34.0 pg MCHC 31.9 32.0 - 36.0 g/dL RDW 13.7 11.5 - 15.5 % PLT 201 140 - 400 K/uL MPV 9.0 6.6 - 11.1 fL nRBCs 0 <=0 /100 WBCs DIFFERENTIAL, AUTOMATED Result Value Ref Range WBC 6.03 4.00 - 10.80 K/uL Neutrophils % 54.2 40.0 - 75.0 % Lymphocytes % 31.8 18.0 - 42.0 % Monocytes % 9.5 1.0 - 11.0 % Eosinophils % 3.0 0.0 - 6.0 % Basophils % 1.0 0.0 - 2.0 % Immature Granulocytes % 0.5 0.0 - 2.0 % Absolute Neutrophils 3.27 1.80 - 7.70 K/uL Absolute Lymphocytes 1.92 1.00 - 4.80 K/ul Absolute Monocytes 0.57 0.00 - 1.10 K/uL Absolute Eosinophils 0.18 0.00 - 0.70 K/uL Absolute Basophils 0.06 0.00 - 0.20 K/uL Absolute Immature Granulocytes 0.03 0.00 - 0.20 K/uL GLUCOSE METER, POINT OF CARE Result Value Ref Range Glucose Meter 176 (H) 70 - 120 mg/dL GLUCOSE METER, POINT OF CARE Result Value Ref Range Glucose Meter 129 (H) 70 - 120 mg/dL GLUCOSE METER, POINT OF CARE Result Value Ref Range Glucose Meter 225 (H) 70 - 120 mg/dL GLUCOSE METER, POINT OF CARE Result Value Ref Range Glucose Meter 185 (H) 70 - 120 mg/dL GLUCOSE METER, POINT OF CARE Result Value Ref Range Glucose Meter 161 (H) 70 - 120 mg/dL GLUCOSE METER, POINT OF CARE Result Value Ref Range Glucose Meter 147 (H) 70 - 120 mg/dL GLUCOSE METER, POINT OF CARE Result Value Ref Range Glucose Meter 215 (H) 70 - 120 mg/dL GLUCOSE METER, POINT OF CARE Result Value Ref Range Glucose Meter 189 (H) 70 - 120 mg/dL GLUCOSE METER, POINT OF CARE Result Value Ref Range Glucose Meter 147 (H) 70 - 120 mg/dL GLUCOSE METER, POINT OF CARE Result Value Ref Range Glucose Meter 137 (H) 70 - 120 mg/dL Review Warfarin Assessment & Recommendations Risk factors for anticoagulation therapy: Age>65, Hypertension Does the patient have any medication interactions: No Are there bleeding concerns with the patient: No Has the patient had any procedures in the last 24 hours: No Does the patient have any upcoming procedures: No Dietary Assessment: Normal/expected PO intake Today's INR : Therapeutic Assessment & Plan Warfarin Plan: Give Warfarin Specify Warfarin Dose: 5 mg tonight Is the patient receiving a Bridging Agent: No Warfarin Patient Education : Complete and documented Reason Education Not Needed: ACC Orders placed per pharmacy consult. Pharmacy will continue to monitor and adjust therapy as needed. Jose Juan Sharma RPh * Liam Barajas MD - 10/08/2023 10:50 AM EDT Images from the original note were not included. [facility] [id number]/D 72 y/o male with PMHx significant for orthostatic hypotension, spinal cord injury, intracranial hemorrhage following fall one month ago, type 2 DM, BPH with urinary symptoms, HTN and HLD who was admitted with near syncope in setting of orthostatic hypotension, weakness and ongoing Klebsiella UTI. INTERVAL HISTORY: No changes. States his BMs are now formed. Objective Physical Exam Most Recent Vital Signs: BP: 98 mmHg/59 mmHg (10/08/23 0759) Pulse: 68 (10/08/23 0758) Temp: 35.61 C (10/08/23 0754) Temp Summary: Temp Min: 35.6 C (96.1 F) Max: 35.8 C (96.4 F) SpO2: 97 % (10/08/23 075) O2 flow rate: Supplemental O2 Delivery: Room Air, None (10/08/23753) Physical Exam Vitals reviewed. Constitutional: Appearance: He [...] Status: He is alert. Motor: Weakness present. Peripheral Line Lower;Right 20 Gauge (Active) Number of days: 2 STUDIES: Encounter Orders Labs and other studies reviewed with pertinent findings noted below: Lab results within last 7 days (see chart for full results) Units 10/08/23 0354 10/07/23 0502 05/25/24 1927 HGB g/dL 10.7* 11.1* 12.4* HCT % 32.9* 33.6* 37.8* WBC K/uL 6.43 10.10 8.75 PLT K/uL 199 218 251 Lab results within last 7 days (see chart for full results) Units 10/08/23 0354 10/07/23 0502 10/06/23 1927 Sodium mmol/L 141 140 138 Potassium mmol/L 3.9 3.8 4.6 Chloride mmol/L 107 106 102 CO2 mmol/L 23 23 18* BUN mg/dL 17 22* 22* Creatinine mg/dL 0.9 1.0 1.1 Lab results within last 7 days (see chart for full results) Units 10/06/23 192 Protein g/dL 6.2 Bilirubin, Total mg/dL 0.3 Alkaline Phosphatase U/L 60 AST U/L 15 ALT U/L 11 Lab results within last 7 days (see chart for full results) Units 10/07/23 0027 10/06/23 2159 10/06/23 1927 Lactate mmol/L 1.7 3.6* | 3.6* 5.5* Lab results within last 7 days (see chart for full results) Units 10/06/23 192 Troponin T, High Sensitivity ng/L 21 Recent Cultures (2 Weeks) 10/06/2023 10/06/2023 10/04/2023 7:39 PM 7:27 PM 1:15 PM BLOOD CULTURE GROWTH No growth to date No growth to date -- QUANT URINE CULTURE GROWTH -- -- >100,000 colonies/mL Klebsiella pneumoniae Assessment and Plan IMPRESSION : Principal Problem: Syncope and collapse Active Problems: Type 2 diabetes mellitus with hemoglobin A1c goal of less than 7.5% ([facility]) Hyperlipidemia with target LDL less than 100 Essential hypertension with goal blood pressure less than 130/80 Complicated UTI (urinary tract infection) Hyperparathyroidism ([facility]) Elevated lactic acid level Dysautonomia ([facility]) Resolved Problems: * No resolved hospital problems. * DIFFERENTIAL AND PLAN: Pending c diff/ GI panel. If negative, will consider fiber supplements. Orthostatic hypotension continues. Will give IVF today. Continue to monitor orthostatic VS. Symptoms likely related in part to orthostatic hypotension. Encourage PO today and repeat VS tomorrow Will need PT/OT/CM. Continue CTX for his UTI Follow AM labs PHARMACOLOGIC VTE PROPHYLAXIS: warfarin check daily dose (PHARMACIST MANAGED) Warfarin Sodium CODE STATUS: Full Code EXPECTED DISCHARGE DATE: No information available I spent a total of 35 minutes coordinating, documenting, and providing care for this patient excluding time spent in the performance of separately billed services. * Nasir Varela, [facility] - 10/08/2023 8:56 AM EDT Images from the original note were not included. PHARMACY ANTICOAGULATION WARFARIN (Coumadin) Assessment [address] [address] Name: Lewis Alarcon Location: [facility] [place] [id number] Date: 10/08/2023 Time: 8:56 AM Lewis Alarcon is a 72 year old male admitted for Syncope and collapse. Pharmacy was consulted for warfarin dosing and monitoring. Anticoagulation Therapy Goals Indication for Anticoagulation: Deep Vein Thrombosis (DVT) acquired prior to this admission, Pulmonary Embolism (PE) acquired prior to this admission Anticipated Duration of Therapy: Lifetime Target INR: 2.0-3.0(Prevention of systemic embolism) Risk factors for anticoagulation therapy: Age>65, Hypertension Other please comment: 5 mg Prior to Admission Management Anticoagulation Managed By: Anticoagulation Clinic Tablet Size/Strength: 5 mg Anticoagulation Regimen: 5 mg by mouth daily Anticoagulation Episode Summary Current INR goal: 2.0-3.0 TTR: 68.6% (1 y) Next INR check: 10/09/2023 INR from last check: Most recent INR: 1.8 (10/08/2023) Weekly max warfarin dose: Target end date: INR check location: Preferred lab: Send INR reminders to: Indications History of pulmonary embolism (Primary) [Z86.711] History of DVT (deep vein thrombosis) [Z86.718] Comments: 2 episodes of VTE. Anticoagulation Care Providers Provider Role Specialty Phone number Nelly Chaney PA-C Referring Physician Preparation Plant Supervisor [phone] Labs INR Date/Time Value Ref Range Status 10/08/2023 03:54 AM 1.8 (H) 0.8 - 1.2 Final 10/07/2023 05:02 AM 1.5 (H) 0.8 - 1.2 Final 10/07/2023 12:27 AM 1.5 (H) 0.8 - 1.2 Final HGB Date/Time Value Ref Range Status 10/08/2023 03:54 AM 10.7 (L) 14.0 - 16.8 g/dL Final HCT Date/Time Value Ref Range Status 10/08/2023 03:54 AM 32.9 (L) 40.0 - 48.4 % Final PLT Date/Time Value Ref Range Status 10/08/2023 03:54 AM 199 140 - 400 K/uL Final Objective Warfarin Administrations (last 720 hours) Date/Time Action Medication Dose 10/07/232022 Given Warfarin Sodium (Coumadin) tab 7.5 mg 7.5 mg 10/07/23350 Given Warfarin Sodium (Coumadin) tab 5 mg 5 mg Assessment & Plan Assessment Dietary Assessment: Normal/expected PO intake Today's INR : Subtherapeutic Does the patient have any medication interactions: No Are there bleeding concerns with the patient: No Does the patient have any upcoming procedures: No Plan Warfarin Plan: Give Warfarin Specify Warfarin Dose: 7.5 mg by mouth tonight. Is the patient receiving a Bridging Agent: No Warfarin Patient Education : Not needed Reason Education Not Needed: Follows with [facility] Nasir Varela RPh * Liam Barajas MD - 10/07/2023 3:39 PM EDT Images from the original note were not included. [facility] [place] [id number]/D 72 y/o male with PMHx significant for orthostatic hypotension, spinal cord injury, intracranial hemorrhage following fall one month ago, type 2 DM, BPH with urinary symptoms, HTN and HLD who was admitted with near syncope in setting of orthostatic hypotension, weakness and ongoing Klebsiella UTI. INTERVAL HISTORY: Doing better this AM. Denies concerns. Objective Physical Exam Most Recent Vital Signs: BP: 136 mmHg/75 mmHg (10/07/23 1534) Pulse: 69 (10/07/23 1534) Temp: 35.78 C (10/07/23 1534) Temp Summary: Temp Min: 35.4 C (95.7 F) Max: 36.1 C (97 F) SpO2: 95 % (10/07/23 1534) O2 flow rate: Supplemental O2 Delivery: Room Air, None (10/07/23 1534) Physical Exam Vitals reviewed. Constitutional: Appearance: He [...] Status: He is alert. Motor: Weakness present. Peripheral Line Lower;Right 20 Gauge (Active) Number of days: 1 STUDIES: Encounter Orders Labs and other studies reviewed with pertinent findings noted below: Lab results within last 7 days (see chart for full results) Units 10/07/23 0502 10/06/23 1927 HGB g/dL 11.1* 12.4* HCT % 33.6* 37.8* WBC K/uL 10.10 8.75 PLT K/uL 218 251 Lab results within last 7 days (see chart for full results) Units 10/07/23 0502 10/06/23 1927 Sodium mmol/L 140 138 Potassium mmol/L 3.8 4.6 Chloride mmol/L 106 102 CO2 mmol/L 23 18* BUN mg/dL 22* 22* Creatinine mg/dL 1.0 1.1 Lab results within last 7 days (see chart for full results) Units 10/06/23 1927 Protein g/dL 6.2 Bilirubin, Total mg/dL 0.3 Alkaline Phosphatase U/L 60 AST U/L 15 ALT U/L 11 Lab results within last 7 days (see chart for full results) Units 10/07/23 0027 10/06/23 2159 10/06/23 1927 Lactate mmol/L 1.7 3.6* | 3.6* 5.5* Lab results within last 7 days (see chart for full results) Units 10/06/23 1927 Troponin T, High Sensitivity ng/L 21 Recent Cultures (2 Weeks) 10/06/2023 10/06/2023 10/04/2023 7:39 PM 7:27 PM 1:15 PM BLOOD CULTURE GROWTH No growth to date No growth to date -- QUANT URINE CULTURE GROWTH -- -- >100,000 colonies/mL Klebsiella pneumoniae Assessment and Plan IMPRESSION : Principal Problem: Syncope and collapse Active Problems: Type 2 diabetes mellitus with hemoglobin A1c goal of less than 7.5% (HCC) Hyperlipidemia with target LDL less than 100 Essential hypertension with goal blood pressure less than 130/80 Complicated UTI (urinary tract infection) Hyperparathyroidism (HCC) Elevated lactic acid level Dysautonomia ([facility]) Resolved Problems: * No resolved hospital problems. * DIFFERENTIAL AND PLAN: Continue to monitor orthostatic VS. Symptoms likely related in part to orthostatic hypotension. S/p IVF. Will encourage PO today and monitor VS tomorrow Consider PRN IVF Will need PT/OT/CM. Continue CTX for his UTI Follow AM labs PHARMACOLOGIC VTE PROPHYLAXIS: warfarin check daily dose (PHARMACIST MANAGED) Warfarin Sodium CODE STATUS: Full Code EXPECTED DISCHARGE DATE: No information available I spent a total of 35 minutes coordinating, documenting, and providing care for this patient excluding time spent in the performance of separately billed services. * Nasir Varela, [facility] - 10/07/2023 8:13 AM EDT Images from the original note were not included. PHARMACY ANTICOAGULATION WARFARIN (Coumadin) Assessment [address] [address] Name: Lewis Alarcon Location: [facility] [place] [id number] Date: 10/07/2023 Time: 8:13 AM Lewis Alarcon is a 72 year old male admitted for Syncope and collapse. Pharmacy was consulted for warfarin dosing and monitoring. Anticoagulation Therapy Goals Indication for Anticoagulation: Deep Vein Thrombosis (DVT) acquired prior to this admission, Pulmonary Embolism (PE) acquired prior to this admission Anticipated Duration of Therapy: Lifetime Target INR: 2.0-3.0(Prevention of systemic embolism) Risk factors for anticoagulation therapy: Age>65, Hypertension Other please comment: 5 mg Prior to Admission Management Anticoagulation Managed By: [facility] Tablet Size/Strength: 5 mg Anticoagulation Regimen: 5 mg by mouth daily Anticoagulation Episode Summary Current INR goal: 2.0-3.0 TTR: 68.9% (1 y) Next INR check: 10/09/2023 INR from last check: Most recent INR: 1.5 (10/07/2023) Weekly max warfarin dose: Target end date: INR check location: Preferred lab: Send INR reminders to: Indications History of pulmonary embolism (Primary) [Z86.711] History of DVT (deep vein thrombosis) [Z86.718] Comments: 2 episodes of VTE. Anticoagulation Care Providers Provider Role Specialty Phone number Nelly Chaney PA-C Referring Physician Preparation Plant Supervisor [phone] Labs INR Date/Time Value Ref Range Status 10/07/2023 05:02 AM 1.5 (H) 0.8 - 1.2 Final 10/07/2023 12:27 AM 1.5 (H) 0.8 - 1.2 Final HGB Date/Time Value Ref Range Status 10/07/2023 05:02 AM 11.1 (L) 14.0 - 16.8 g/dL Final HCT Date/Time Value Ref Range Status 10/07/2023 05:02 AM 33.6 (L) 40.0 - 48.4 % Final PLT Date/Time Value Ref Range Status 10/07/2023 05:02 AM 218 140 - 400 K/uL Final Objective Warfarin Administrations (last 720 hours) Date/Time Action Medication Dose 10/07/23 0351 Given Warfarin Sodium (Coumadin) tab 5 mg 5 mg Assessment & Plan Assessment Dietary Assessment: Normal/expected PO intake Today's INR : Subtherapeutic Does the patient have any medication interactions: No Are there bleeding concerns with the patient: No Does the patient have any upcoming procedures: No Plan Warfarin Plan: Give Warfarin Specify Warfarin Dose: 7.5 mg by mouth tonight Is the patient receiving a Bridging Agent: No Warfarin Patient Education : Not needed Reason Education Not Needed: Follows with [facility] Nasir Varela RPh * Oralia Salazar RPh - 10/07/2023 2:11 AM EDT Images from the original note were not included. PHARMACY ANTICOAGULATION WARFARIN (Coumadin) Assessment [address] [address] Name: Lewis Alarcon Location: [facility] [place] [id number] Date: 10/07/2023 Time: 2:11 AM Lewis Alarcon is a 72 year old male admitted for Syncope and collapse. Pharmacy was consulted for warfarin dosing and monitoring. Anticoagulation Therapy Goals Indication for Anticoagulation: Pulmonary Embolism (PE) acquired prior to this admission, Deep VeinThrombosis (DVT) acquired prior to this admission Anticipated Duration of Therapy: Lifetime Target INR: 2.0-3.0(Prevention of systemic embolism) Risk factors for anticoagulation therapy: Age>65, Hypertension Prior to Admission Management Anticoagulation Managed By: Anticoagulation Clinic Tablet Size/Strength: 5 mg Anticoagulation Regimen: 5 mg daily Anticoagulation Episode Summary Current INR goal: 2.0-3.0 TTR: 68.9% (1 y) Next INR check: 10/09/2023 INR from last check: Most recent INR: 1.5 (10/07/2023) Weekly max warfarin dose: Target end date: INR check location: Preferred lab: Send INR reminders to: Indications History of pulmonary embolism (Primary) [Z86.711] History of DVT (deep vein thrombosis) [Z86.718] Comments: 2 episodes of VTE. Anticoagulation Care Providers Provider Role Specialty Phone number Nelly Chaney PA-C Referring Physician Preparation Plant Supervisor [phone] Labs INR Date/Time Value Ref Range Status 10/07/2023 12:27 AM 1.5 (H) 0.8 - 1.2 Final HGB Date/Time Value Ref Range Status 10/06/2023 07:27 PM 12.4 (L) 14.0 - 16.8 g/dL Final HCT Date/Time Value Ref Range Status 10/06/2023 07:27 PM 37.8 (L) 40.0 - 48.4 % Final PLT Date/Time Value Ref Range Status 10/06/2023 07:27 PM 251 140 - 400 K/uL Final Objective Warfarin Administrations (last 720 hours) None Assessment & Plan Assessment Dietary Assessment: Normal/expected PO intake Today's INR : Subtherapeutic Does the patient have any medication interactions: No Are there bleeding concerns with the patient: No Does the patient have any upcoming procedures: No Plan Warfarin Plan: Give Warfarin Specify Warfarin Dose: 5 mg Is the patient receiving a Bridging Agent: No Warfarin Patient Education : Not needed Reason Education Not Needed: Follows with [facility] Oralia Salazar RPh documented in this encounter H&P Notes * Orlando Armando PA-C - 10/06/2023 11:28 PM EDT Images from the original note were not included. [facility] [place] SW1/X PRESENTING PROBLEM: Near syncope HPI: Mr. eLwis Alarcon is a 72 y/o male with PMHx significant for orthostatic hypotension, spinal cord injury, intracranial hemorrhage following fall one month ago, type 2 DM, BPH with urinary symptoms, HTN and HLD who presents to the [facility] [place] ED c/o near syncope. He states that he was in his normal state of health until today, though he had multiple recent medication changes. He was restarted on Warfarin 5 days ago following his recovery from the ICH. 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 At the same time, he was evaluated by Cardiology yesterday and just startedon losartan for hypertension today. He states that about 30 minutes after he took his losartan, he got up from his recliner and ambulated toward his restroom. He began to feel light-headed and felt like he was going to pass out, so he went to lie down on his bed instead. He denies fever/chills, chest pain, dyspnea, weakness or other concerns. He fell and had bleeding one month ago due to similar symptoms, and once he had a second episode of light-headedness today he decided to come to the ED for further evaluation. In the ED, workup was significant for elevated lactate which improved from 5.5 to 3.6 after 1 literof IV fluids and otherwise unremarkable labs. He has been seen with elevated lactate levels frequently in the past as well. CXR shows no acute pathology. CT of the head shows no acute pathology, ICH appears resolved. EKG shows NSR with a rate of about 99 bpm. Patient reports concerns as outlined above and denies additional concerns at this time. He was admitted for further evaluation and care. Subjective ROS: As above in HPI, otherwise negative Patient's past history, medications, and allergies were reviewed. Objective Physical Exam Most Recent Vital Signs: BP: 153 mmHg/71 mmHg (10/06/23 2300) Pulse: 79 (10/06/23 2300) Temp: 36.11 C (10/06/23 1838) Temp Summary: Temp Min: 36.1 C (97 F) Max: 36.1 C (97 F) SpO2: 97 % (10/06/231837) O2 flow rate: Supplemental O2 Delivery: Physical Exam Constitutional: General: He is not in acute distress. Appearance: Normal appearance. HENT: Head: Normocephalic and atraumatic. Mouth/Throat: Mouth: Mucous membranes are moist. Eyes: Extraocular Movements: Extraocular movements intact. Pupils: Pupils are equal, round, and reactive to light. Cardiovascular: Rate and Rhythm: Normal rate and regular rhythm. Heart sounds: No murmur heard. No friction rub. No gallop. Pulmonary: Effort: Pulmonary effort is normal. Breath sounds: Normal breath sounds. No wheezing, rhonchi or rales. Abdominal: General: Abdomen is flat. Bowel sounds are normal. There is no distension. Palpations: Abdomen is soft. There is no mass. Tenderness: There is no abdominal tenderness. Musculoskeletal: General: Normal range of motion. Cervical back: Normal range of motion and neck supple. Skin: General: Skin is warm and dry. Neurological: General: No focal deficit present. Mental Status: He is alert and oriented to person, place, and time. Psychiatric: Mood and Affect: Mood normal. Behavior: Behavior normal. Peripheral Line Lower;Right 20 Gauge (Active) Number of days: 0 STUDIES: Encounter Orders Labs and other studies reviewed with pertinent findings noted below: Results for orders placed or performed during the hospital encounter of 10/06/23 BASIC METABOLIC PANEL Result Value Ref Range BUN 22 (H) 6 - 20 mg/dL Creatinine 1.1 0.6 - 1.2 mg/dL Estimated Glomerular Filtration Rate 71 >=60 mL/min Sodium 138 135 - 146 mmol/L Potassium 4.6 3.5 - 5.1 mmol/L Chloride 102 98 - 107 mmol/L CO2 18 (L) 22 - 32 mmol/L Anion Gap 18 (H) 7 - 15 mmol/L Glucose 199 (H) 70 - 120 mg/dL Calcium 8.7 8.4 - 10.2 mg/dL HEPATIC FUNCTION PANEL Result Value Ref Range Albumin 3.5 (L) 3.8 - 5.0 g/dL AST 15 10 - 50 U/L Alkaline Phosphatase 60 35 - 130 U/L ALT 11 10 - 50 U/L Bilirubin, Total 0.3 <=1.2 mg/dL Bilirubin, Direct <0.2 0.0 - 0.3 mg/dL Protein 6.2 6.0 - 8.3 g/dL TROPONIN T, HIGH SENSITIVITY Result Value Ref Range Troponin T, High Sensitivity 21 <=22 ng/L LACTATE WITH REFLEX IF ABNORMAL Result Value Ref Range Lactate 5.5 (HH) 0.4 - 2.0 mmol/L CBC Result Value Ref Range WBC 8.75 4.00 - 10.80 K/uL RBC 3.91 4.50 - 5.25 M/uL HGB 12.4 (L) 14.0 - 16.8 g/dL HCT 37.8 (L) 40.0 - 48.4 % MCV 96.7 82.0 - 99.5 fL MCH 31.7 27.0 - 34.0 pg MCHC 32.8 32.0 - 36.0 g/dL RDW 13.9 11.5 - 15.5 % PLT 251 140 - 400 K/uL MPV 8.8 6.6 - 11.1 fL nRBCs 0 <=0 /100 WBCs DIFFERENTIAL, AUTOMATED Result Value Ref Range WBC 8.75 4.00 - 10.80 K/uL Neutrophils % 72.9 40.0 - 75.0 % Lymphocytes % 18.9 18.0 - 42.0 % Monocytes % 6.3 1.0 - 11.0 % Eosinophils % 0.9 0.0 - 6.0 % Basophils % 0.5 0.0 - 2.0 % Immature Granulocytes % 0.5 0.0 - 2.0 % Absolute Neutrophils 6.39 1.80 - 7.70 K/uL Absolute Lymphocytes 1.65 1.00 - 4.80 K/ul Absolute Monocytes 0.55 0.00 - 1.10 K/uL Absolute Eosinophils 0.08 0.00 - 0.70 K/uL Absolute Basophils 0.04 0.00 - 0.20 K/uL Absolute Immature Granulocytes 0.04 0.00 - 0.20 K/uL BLOOD GAS, VENOUS Result Value Ref Range Temperature 37.0 C pH, Venous 7.399 7.320 - 7.430 units pCO2, Venous 34.2 (L) 40.0 - 60.0 mmHg pO2, Venous 49.5 25.0 - 50.0 mmHg Base Excess, Venous -3.0 (L) -2.0 - 2.0 mmol/L HGB 11.3 (L) 14.0 - 16.8 g/dL Oxyhemoglobin, Venous 80.8 40.0 - 85.0 % total Hgb Carboxyhemoglobin, Whole Blood 1.3 <=1.5 % total Hgb Methemoglobin, Whole Blood 0.5 <=1.5 % total Hgb Reduced Hemoglobin, Venous 17.4 % total Hgb O2 Content, Venous 12.9 7.0 - 18.0 %vol Bicarbonate, Whole Blood 20.7 (L) 23.0 - 31.0 mmol/L LACTATE Result Value Ref Range Lactate 3.6 (H) 0.4 - 2.0 mmol/L LACTATE WITH REFLEX IF ABNORMAL Result Value Ref Range Lactate 3.6 (H) 0.4 - 2.0 mmol/L CT HEAD/BRAIN WO CONTRAST Final Result PROCEDURE INFORMATION: Exam: CT Head Without Contrast Exam date and time: 10/06/2023 8:43 PM Age: 72 years old Clinical indication: Altered mental status/memory loss; Patient HX: Near-syncope, history of recent traumatic hemorrhagic brain injury about a month ago TECHNIQUE: Imaging protocol: Computed tomography of the head without contrast. Radiation optimization: All CT scans at this facility use at least one of these dose optimization techniques: automated exposure control; mA and/or kV adjustment per patient size (includes targeted exams where dose is matched to clinical indication); or iterative reconstruction. COMPARISON: CT HEAD/BRAIN WO CONTRAST 09/28/2023 1:15 PM FINDINGS: Brain: Normal. No hemorrhage. Mild periventricular white matter changes. Moderate ventriculomegaly. Paranasal sinuses: Visualized sinuses are unremarkable. No fluid levels. Mastoid air cells: Visualized mastoid air cells are well aerated. Bones: Unremarkable. No acute fracture. Soft tissues: Unremarkable. IMPRESSION IMPRESSION: No acute intracranial abnormality. THIS DOCUMENT HAS BEEN ELECTRONICALLY SIGNED BY SANDIP JOHNSON MD XR CHEST 1 VIEW Final Result PROCEDURE INFORMATION: Exam: XR Chest Exam date and time: 10/06/2023 7:07 PM Age: 72 years old Clinical indication: Other: Near-syncope TECHNIQUE: Imaging protocol: Radiologic exam of the chest. Views: 1 view. COMPARISON: CT CHEST W CONTRAST 09/09/2023 5:33 AM FINDINGS: Lungs: No definite air bronchograms identified. Lungs are hyperexpanded without focal consolidation. Pleural spaces: Unremarkable. No pleural effusion. No pneumothorax. Heart/Mediastinum: The heart is enlarged. Bones/joints: There are moderate degenerative changes present. Surgical changes are present in the cervical spine. IMPRESSION IMPRESSION: No focal consolidation identified. THIS DOCUMENT HAS BEEN ELECTRONICALLY SIGNED BY NEL PARISI MD Assessment and Plan IMPRESSION: Principal Problem: Syncope and collapse Active Problems: Type 2 diabetes mellitus with hemoglobin A1c goal of less than 7.5% ([facility]) Hyperlipidemia with target LDL less than 100 Essential hypertension with goal blood pressure less than 130/80 Complicated UTI (urinary tract infection) Hyperparathyroidism ([facility]) Elevated lactic acid level Dysautonomia ([facility]) Resolved Problems: * No resolved hospital problems. * PLAN: - Admit with telemetry for observation - Gentle IV NSS overnight - Hold losartan for now - IV Rocephin for UTI - Repeat lactate levels. Seems to have some chronic elevation, though may be worse due to transienthypoperfusion from earlier syncope and comorbid UTI along with Metformin use. No exam signs consistent with global or localized hypoperfusion. - Coached Mr. Alarcon on sitting up and standing slowly given his orthostatic hypotension diagnosis. He notes not regularly having problems with this, but it seems with additional variables introduced (I.e. new BP meds, infection) he is still prone to these symptoms - Daily orthostatic BP - PT/OT evaluation - Continue home medications as directed - VTE prophylaxis: Coumadin, SCDs CODE STATUS: Full Code EXPECTED DISCHARGE DATE: 10/07/[address] Hi I spent a total of 60 minutes coordinating, documenting, and providing care for this patient excluding time spent in the performance of separately billed services. Associated attestation - Gloria Hi MD - 10/07/2023 1:58 AM EDT I have reviewed the advanced practitioner's documentation on the date of service referenced in note, and I agree with, and take responsibility for the plan of care. I spent a total of 60 minutes coordinating, documenting, and providing care for this patient excluding time spent in the performance of separately billed services or time spent by another provider/QHP. Patient seen and evaluated with Orlando Armando PA-C. Patient is a 72 yo gentleman with history of spinal cord injury, intracranial hemorrhage s/p fall a month ago, DM, BPH, HTN, HLD who came with hx of near syncope. He was recently dx with UTI. Will keep on tele, IVF, Ceftriaxone, hold Losartan, f/ulactic acid. Gloria Hi MD MBA documented in this encounter Procedure Notes * Louis Kruse DO - 10/06/2023 6:43 PM EDTAssociated Order(s): EKG REASON FOR STUDY: WEAKNESS CONCLUSIONS: Normal sinus rhythm High QRS voltage may be normal variant or due to lve Possible Inferior infarct , age undetermined Abnormal ECG When compared with ECG of 04-Sep-2023 22:22, Warning: interpretation of this ECG, although attempted, may be adversely affected by data quality Suggest repeat tracing with better attention to quality of tracing Ventricular Rate: 99 Atrial Rate: 99 OR Interval: 130 QRS Duration: 92 QT/QTc: 320/411 ms P-R-T [place]: 11 : -1 : 31 degrees documented in this encounter Consult Notes * Esthela Gaines, OTR/L - 10/09/2023 3:15 PM EDTAssociated Order(s): ADULT OCCUPATIONAL THERAPY CONSULT IP GENERAL EVALUATION - Occupational Therapy [facility] [place] [address] Name: Lewis Alarcon Location: [facility] [place] [id number]/D Date: 10/09/2023 Time: 3:15 PM Lewis Alarcon is a 72 year old male. As per H & P: "HPI: Mr. Lewis Alarcon is a 72 y/o male with PMHx significant for orthostatic hypotension, spinal cord injury, intracranial hemorrhage following fall one month ago, type 2 DM, BPH with urinary symptoms, HTN and HLD who presents to the [facility] [place] ED c/o near syncope. He states that he was in his normal state of health until today, though he had multiple recent medication changes. He was restarted on Warfarin 5 days ago following his recovery from the ICH. 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 At the same time, he was evaluated by Cardiology yesterday and just started on losartan for hypertension today. He states that about 30 minutes after he took his losartan, hegot up from his recliner and ambulated toward his restroom. He began to feel light-headed and felt like he was going to pass out, so he went to lie down on his bed instead. He denies fever/chills, chest pain, dyspnea, weakness or other concerns. He fell and had bleeding one month ago due to similarsymptoms, and once he had a second episode of light-headedness today he decided to come to the ED for further evaluation. In the ED, workup was significant for elevated lactate which improved from 5.5 to 3.6 after 1 literof IV fluids and otherwise unremarkable labs. He has been seen with elevated lactate levels frequently in the past as well. CXR shows no acute pathology. CT of the head shows no acute pathology, ICH appears resolved. EKG shows NSR with a rate of about 99 bpm. Patient reports concerns as outlined above and denies additional concerns at this time. He was admitted for further evaluation and care." Patient Status: Inpatient Insurance: Payor: MEDICARE Plan: MEDICARE A AND B Product Type: *No Product type* Payor: AARP Plan: AARP Product Type: *No Product type* Patient Seen: at bedside, nursing cleared patient for therapy Patient Identified By: Name, ID Band and Date Diagnosis: syncope and collapse (10/09/231514) Status of treatment: OOB evaluation completed (10/09/231514) Orders: OT evaluation and treatment (10/09/231514) Weight Bearing Status: Weight bearing as tolerated (10/09/231514) Precautions: Falls;Safety;Other-Describe (IV line RUE forearm) (05/28/24 1515) Total Treatment Time: 48 (10/09/231514) Past Medical History: Past Medical History: Diagnosis [...] by John Gordillo MD at OR [facility] [place] INCISIONAL HERNIA REPAIR, LAP, REDUCIBLE left inguinal and umbelical INFORMATION 05/14/1988 lymph node removal KNEE ARTHROSCOPY/SURGERY PARTIAL HIP REPLACEMENT & PROSTH Right 09/02/2020 HEMIARTHROPLASTY HIP performed by Gianni Hubbard MD at OR [facility] [place] REMOVE CATARACT, INSERT LENS PROSTH Left 03/23/2022 LEFT EXTRACAPSULAR CATARACT REMOVAL WITH INTRAOCULAR LENS performed by Rad Morgan MD at OR [facility] REMOVE CATARACT, INSERT LENS PROSTH Right 03/30/2022 RIGHT EXTRACAPSULAR CATARACT REMOVAL WITH INTRAOCULAR LENS performed by Rad Morgan MD at OR [facility] REMOVE TONSILS & ADENOIDS, AGE 12+ UMBIL HERNIA REPAIR (INCARCERATED) AGE 5+YR Social History/Disposition Lives with: Spouse (10/09/231514) Assistance available: Yes (10/09/231514) Dwelling type: Single story home (10/09/231514) Entry steps: Other - Describe (1+1 with handrail on Left side) (10/09/231514) Inside steps: None (10/09/231514) Bedroom location: 1st floor (10/09/231514) Bath location: 1st floor full bath (Master bath: walk in shower with seat and grab bars) (10/09/231514) Prior Level of Function Reported by: Patient (10/09/231514) Ambulation: Ambulatory with device (10/09/231514) Ambulatory Device: Rolling walker (10/09/231514) Grooming: Assistance (seated in wc at sink) (10/09/231514) Bathing: Assistance (showers daily, seated on shower chair; assists with bathing) (10/09/231514) Dressing: Assistance ( assists with all UB/LB dressing tasks) (10/09/231514) Feeding: Independent (10/09/231514) Toileting: Assistance (Pt has elevated toilet with grab bars; managed clothing and all santiago-care with toileting tasks. 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 Pt agreeable to OTeval and treat, pleasant and cooperative throughout session. Pain: Patient has complaints of pain. Pain located lower back. /, aching, reports pain from lying in bed. OT offered for pt to sit OOB into recliner at bedside, pt declined. Observations Consciousness: Alert (10/09/231514) Orientation: Oriented times 4 (10/09/231514) Sitting posture: Kyphotic;Forward head;Rounded shoulders (10/09/231514) Standing posture: Kyphotic;Forward head;Rounded shoulders (10/09/231514) Safety awareness: The Patient verbalizes insight of current deficits. (10/09/231514) Other Findings Endurance: Standing tolerance;Fair (10/09/231514) Coordination: Intact (10/09/231514) Current Functional Status: Bilateral Upper Extremity Hand Dominance: Left (10/09/231514) Range of Motion: WFL, except (10/09/231514) LUE: Shoulder (LUE shoulder flexion 0-100) (10/09/231514) RUE: Shoulder (limited AROM shoulder flexion 0-45) (10/09/231514) Self Care Able to provide self care: No (10/09/231514) Feeding: Supervision (Please comment) (Pt needs assist to open containers and cut food) (10/09/231514) Grooming: Supervision (Please comment) (10/09/231514) Toileting: Moderate Assistance (10/09/231514) Dressing Upper Body: Moderate Assistance (10/09/231514) Lower Body: Maximal Assistance (10/09/231514) Bathing Upper Body: Moderate Assistance (10/09/231514) Lower Body: Maximal Assistance (10/09/231514) Functional Ambulation Assistive Device: Rolling walker (10/09/231514) Distance in feet:: 25 (10/09/231514) Level of Assistance: Minimal Assistance (10/09/231514) Bed Mobility Supine-Sit: Moderate Assistance (10/09/231514) Sit-Supine: Moderate Assistance (10/09/231514) Sit - Sidelying: Moderate Assistance (10/09/231514) Sidelying - Sit: Moderate Assistance (10/09/231514) OT Transfers Sit-Stand: Minimal Assistance (10/09/231514) Stand-Sit: Minimal Assistance (10/09/231514) Bed-Chair: Minimal Assistance (10/09/231514) Balance Sit (Static): Fair (10/09/231514) Sit (Dynamic): Fair (10/09/231514) Stand (Static): Fair (10/09/231514) Stand (Dynamic): Fair (10/09/231514) Alarm Status Patient positioned in: Bed (10/09/231514) With: Call kebede in reach (10/09/231514) Patient and Family Goals: to return home Patient Education Education Topic: Role of OT;Plan of care goals (10/09/231514) Review of Precautions: Safety;Fall (10/09/231514) Method of Education: Verbalized to patient (10/09/231514) Education Provided to: Patient (10/09/231514) Response to Education: Receptive and agreeable to education (10/09/231514) Preferred learning method: Combination (10/09/231514) Treatment Provided: Self Half-Way Management Trainin minutes Therapeutic Activity: 18 minutes Evaluation Moderate Complexity 15 minutes - [id number]: Patient was cooperative and pleasant during treatment session. Moderate complexity evaluation performed and 3-5 activity limitations were identified, including ADL deficit, bed mobility deficit, decreased strength, decreased endurance, and impairedbalance. Minimal or moderate modification of the functional task was necessary to complete the evaluation. Deficits Requiring O.T. Treatment: Deficits requiring O.T. treatment needs: ADL/self-care;Balance;Endurance;Functional mobility;Safety;Upper extremity strength (10/09/231514) Goals: Bathing: Upper: Contact Guard. Dressing: Upper: Contact Guard. Bed Mobility with: Supine to Sit: modified independent (with device or slow) Sit to supine: modified independent (with device or slow). Transfers with: Toilet: supervision (with cues). Demonstrates Grooming at Mod I.. Demonstrates toileting at supervision Increase Strength of: RUE 3/5; LUE 4/5. Goal Time Frame: Within 10 treatment sessions. Assessment: Pt pleasant and cooperative with OT session. Pt shared medical history and routine at home with extensive detail. Pt has very supportive in home setting that provides all ADL care for LB bathing/dressing, showering. Therefore, no goal set for LB ADLs due to level of assist providedby and at pt request. Pt used FWW at baseline for all mobility and transfers. Pt leads a sedentary lifestyle, spending most of his day in lift chair in living room area. Pt demonstrates decreased BUE ROM ( R>L); decreased BUE strength, decreased endurance levels with all tasks. Pt demonstrates decreased UB ADLs: mod A; toilet transfer with FWW for support with min A, hygiene and clothing mgmt with moderate Assist, grooming with Supervision. Pt attempts to marc/doff socks, Total Dependent. Pt completes bed mobility with moderate Assist. Pt noted to have orthostatic BP changes with activity per medical chart review and nursing, OT assessed as follows: BP lyin/76, HR 64, SpO2 95% BP sittin/73; HR 68 BP standin/69; HR 69, SpO2 96% Pt had no complaints of dizziness or light headedness with OT session. OT educated on slow pacing with tasks, allowing time to adjust with each change in position before moving to next position or activity, pt engaged in education, continued education would be beneficial. OT will follow and treat at [facility] [place] to maximize the patient's functional skills while at the acute carelevel. OT [facility]: 13 Would consider home with post-acute care services which may include outpatient therapy or home health. The level of care will be determined in collaboration with the patient, family/caregiver, and care team members. Treatment Plan: Safety, Bed mobility training, Transfer training, Upper extremity strengthening, ADL training , and Endurance Anticipated Frequency (on eval): 1 to 3 times per week (10/09/231514) AM-PAC Help From Another Person Eating Meals: A little (10/09/231514) Help From Another Person Taking Care of Personal Grooming: A little (10/09/231514) Help From Another Person To Put On/Take Off Upper Body Clothing: A lot (10/09/231514) Help From Another Person To Put On/Take Off Lower Body Clothing: Total (10/09/231514) Help From Another Person Toileting: A lot (10/09/231514) Help From Another Person Bathing: A lot (10/09/231514) OT AM-PAC Score: 13 (10/09/231514) OT AM-PAC t-Scale Score: 32.03 (10/09/23 1515) HLM (Highest Level of Mobility) Goal: Level 5 standing (1 or more minutes) (10/09/23 1400) * Tyson Carrillo, PT - 10/09/2023 2:00 PM EDTAssociated Order(s): ADULT PHYSICAL THERAPY CONSULT IP PHYSICAL THERAPY - Physical Therapy [facility] [place]-[address] [address] Name: Lewis Alarcon Location: [facility] [place] [id number] Date: 10/09/2023 Time: 1399 Lewis Alarcon is a/an 72 year old male. Per HPI: Mr. Lewis Alarcon is a 72 y/o male with PMHx significant for orthostatic hypotension, spinal cord injury, intracranial hemorrhage following fall one month ago, type 2 DM, BPH with urinary symptoms, HTN and HLD who presents to the [facility] [place] ED c/o near syncope. He states that he was in his normal state of health until today, though he had multiple recent medication changes. He was restarted on Warfarin 5 days ago following his recovery from the ICH. 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 At the same time, he was evaluated by Cardiology yesterday and just started on losartan for hypertension today. He states that about 30 minutes after he took his losartan, he got up from his recliner and ambulated toward his restroom. He began to feel light-headed and felt like he was going to pass out, so he went to lie down on his bed instead. He denies fever/chills,chest pain, dyspnea, weakness or other concerns. He fell and had bleeding one month ago due to similar symptoms, and once he had a second episode of light-headedness today he decided to come to the ED for further evaluation. Patient Status: Inpatient Insurance: Payor: MEDICARE Plan: MEDICARE A AND B Product Type: *No Product type* Payor: AARP Plan: AARP Product Type: *No Product type* Patient Seen: at bedside, nursing cleared patient for therapy Patient Identified By: Name, ID Band and Date Diagnosis: ambulatory dysfunction secondary to syncope/collapse (10/09/231399) Status of treatment: Evaluation completed (10/09/231399) Orders: PT evaluation and treatment (10/09/231399) Weight Bearing Status: Weight bearing as tolerated (10/09/231399) Precautions: Falls;Safety (10/09/231399) Total Treatment Time--free text: 39 (10/09/231399) Past Medical History: Past Medical History: Diagnosis [...] by John Gordillo MD at OR [facility] [place] INCISIONAL HERNIA REPAIR, LAP, REDUCIBLE left inguinal and umbelical INFORMATION 05/14/1988 lymph node removal KNEE ARTHROSCOPY/SURGERY PARTIAL HIP REPLACEMENT & PROSTH Right 09/02/2020 HEMIARTHROPLASTY HIP performed by Gianni Hubbard MD at OR [facility] [place] REMOVE CATARACT, INSERT LENS PROSTH Left 03/23/2022 LEFT EXTRACAPSULAR CATARACT REMOVAL WITH INTRAOCULAR LENS performed by Rad Morgan MD at [facility] REMOVE CATARACT, INSERT LENS PROSTH Right 03/30/2022 RIGHT EXTRACAPSULAR CATARACT REMOVAL WITH INTRAOCULAR LENS performed by Rad Morgan MD at [facility] REMOVE TONSILS & ADENOIDS, AGE 12+ UMBIL HERNIA REPAIR (INCARCERATED) AGE 5+YR Subjective: Cooperative for PT consult. Social History/Disposition Lives with: Spouse (10/09/23 1400) Assistance available: Yes (10/09/231399) Dwelling type: Single story home (10/09/23 1400) Entry steps: Other - Describe (1 + 1 steps) (10/09/23 1400) Inside steps: None (10/09/23 1400) Bedroom location: 1st floor (10/09/23 1400) Bath location: 1st floor full bath (10/09/23 1400) Prior Level of Function Reported by: Patient (10/09/23 1400) Ambulation: Ambulatory with assistance and device (SBA from ) (10/09/23 1400) Ambulatory Device: Rolling walker (10/09/23 1400) Devices at home: Grab bars;Rolling walker;Shower chair;Wheelchair (lift- recliner) (10/09/23 1400) Observations Consciousness: Alert (10/09/23 1400) Orientation: Oriented times 4 (10/09/23 1400) Psychosocial: Patient can communicate basic needs;Patient can converse in a social setting (10/09/23 1400) Other Findings: No (10/09/231399) Sitting Posture: Forward head;Rounded shoulders (10/09/231399) Standing Posture: Forward head;Rounded shoulders (10/09/231399) Pain: No complaints of pain Range of Motion Range of Motion: WFL (10/09/231399) Strength Assessment Strength Assessment: Deficits noted (10/09/231399) WNL, except: LLE;RLE (10/09/231399) LLE: Hip;Knee;4+/5 (10/09/231399) RLE: Hip;Knee;4+/5 (10/09/231399) P.T. Bed Mobility Supine-Sit: Moderate Assistance (10/09/231399) Sit-Supine: Moderate Assistance (10/09/231399) Transfers Sit-Stand: Contact Guard (10/09/231399) Stand-Sit: Contact Guard (10/09/231399) Ambulation: Distance ambulated (feet): 175 Assistive Device: Rolling walker Assist: Supervision Balance Sit (Static): Good (10/09/231399) Sit (Dynamic): Good (10/09/231399) Stand (Static): Good (10/09/231399) Stand (Dynamic): Fair (10/09/231399) Patient and or Family Goal(s): to get well and to return home Patient Education Review of Precautions: Safety;Fall (10/09/231399) Safety Awareness: Patient verbalizes insight of current deficits;Patient demonstrates carryover of insight during functional tasks;Patient can communicate basic needs;Needs cueing supervision (10/09/231399) Preferred learning method: Combination (10/09/231399) Barriers to learning: Medical Status (10/09/231399) Method of Education: Verbalized to patient (10/09/231399) Topic of Education: Safety with mobility and Fall prevention Method of Education: Verbal discussion and explanation provided to patient who verbalized understanding and or agreement of this information. Treatment Provided: Therapeutic Activities 15 minutes: bed mobility training transfer training Gait Training 9 minutes: gait training with rolling walker Evaluation Moderate Complexity 15 minutes - [id number]: Patient was cooperative, pleasant, motivated, and alert during treatment session. Moderate complexity evaluation performed and 1-2 personal factors or comorbidities were identified that will impact plan of care, including multiple steps at home andcardiac history. Patient presents with limitations in strength, bed mobility, transfers, gait, elevations, balance, endurance, and safety, which will impact plan of care. These limitations will be addressed by the goals set for this patient. Alarm Status Patient positioned in: Bed (10/09/231399) With: Call kebede in reach (10/09/231399) Treatment Status: Treatment at bedside (10/09/231399) Goals: Demonstrate Bed Mobility with: Supine to Sit: modified independent (with device or slow) Demonstrate Transfers with: Bed to chair: supervision (with cues) Demonstrate Ambulation: assistive device: rolling walker distance in feet: 300 level of assistance on level surface: supervision (with cues) Demonstrate Stairclimbin+1 steps with rolling walker with CGA Time Frame: 1-10 visits Assessment: PT consult completed. The patient presented with some minimal strength deficits affecting his mobility. He required moderate assist for supine to sit and reverse. He was able to perform sit to stands with CGA with no cues for hand placement. He was able to ambulate in the room as well as in the hallway with a rolling walker up to 175 feet with supervision. Would consider home with post-acute care services which may include outpatient therapy or home health. The level of care will bedetermined in collaboration with the patient, family/caregiver, and care team members. Current PT AM-PAC score: 16. Deficits requiring P.T. treatment needs: Safety;Mobility (10/09/231399) Equipment Needs: Treatment Plan: Bed mobility training, Transfer training, Gait training, Elevation training, Strengthening exercises B LE's, and Balance activities Anticipated Frequency (on eval): 1 to 3 times per week (10/09/231399) AM PAC Score with Stairs: 16 documented in this encounter Nursing Notes * Martha Bundy NA/ANDI - 10/11/2023 9:21 AM EDT You have a PCP appointment with on October 16 @ 11:00am Please arrive 15 minutes early Kaiser Amanda MD [address] [facility] [id number] * Mary Jo Mckenzie RN - 10/07/2023 3:08 AM EDT Dual Licensed Skin Assessment completed by Jerri YANG and Silas YANG. The patient is/has a N/A Skin Breakdown (includes non blanchable erythema): No Blanchable erythema on sacrum. * Mary Jo Mckeznie RN - 10/07/2023 3:06 AM EDT IN-HOUSE TRANSFER RECEIVING UNIT - NURSING [address] [address] Name: Lewis Alarcon Location: [facility] [place] [id number]/D Date: 10/07/2023 Time: 3:06 AM Patient received to room [facility] at 2346 Vital Signs: BP: 151 mmHg/86 mmHg (10/06/232352) Pulse: 87 (10/06/232352) Temp: 35.89 C (10/06/232352) Temp Summary: Temp Min: 35.9 C (96.6 F) Max: 36.1 C (97 F) SpO2: 96 % (10/06/232352) O2 flow rate: Supplemental O2 Delivery: Room Air, None (10/06/232352) Pertinent transfer information upon arrival 09/03 to ED via EMS for fall, scalp laceration and intracranial hemorrhage requiring transfer to [facility]- blood thinner dc. 09/05 ECHO 32% EF. Returned home with HHPT. 09/08 adm to 4B for falls at home prior to start of HHPT. 10/03 PCP started amoxicillin for UA/UC +Klebsiella, and losartan. Arrives via ALS to ED 10/05 with c/o lightheadedness, weakness, near syncope. Belongings received with patient: see patients belongings list Verbal SBAR report received from: Cynthia Narayan RN * Cherri Dixon RN - 10/07/2023 12:10 AM EDT VIRTUAL RN [facility] [place]-[address] [address] Name: Lewis Alarcon Location: [facility] [place] [id number]/D Date: 10/07/2023 Time: 12:10 AM I completed the Admission Navigator. The patient was in the hospital. I was not in a hospital or clinic location. After connecting through [email or web address], the patient was identified by name and date of and / or wristband checked. Patient (or authorized legal bilingual sales representative) was then informed that this was a Virtual Nurse visit and was being conducted confidentially over secure lines. I used a headset and other methods to ensure confidentiality for the patient. Patient acknowledged consent and understanding of privacy and security of the Virtual Nurse visit. I presented the opportunity for the patient or authorized legal bilingual sales representative to ask any questions regarding the visit today. The patient or authorized legal bilingual sales representative agreed to participate. documented in this encounter ED Notes * Mamadou Clarke MD - 10/06/2023 6:56 PM EDT HISTORY OF PRESENT ILLNESS Lewis Alarcon is a 72 year old male who presents to the ED for evaluation of General Illness. The patient was seen at 10/06/231843. 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 Within the next couple of hours he had an episode of feeling light inhis head like he was about to pass out. He had 2 such episodes. He did not pass out either time. Hedid not have chest pain. He did not get sweaty. In addition he had a abnormal urinalysis and was started on amoxicillin clavulanic acid by his private physician which was started later in the day. However he was feeling ill before that About a month ago he had a fall causing an intracranial bleed for which he was transferred to [place]. He was told that this had resolved spontaneously. Years ago he had a fall causing a spinal cord injury with requirement for surgical stabilization ofhis neck and left him with weakness to both arms with difficulty lifting above his shoulders. However he did not develop any leg weakness and is able to walk with a walker He was told that the reason for his losartan was that his heart was not pumping well enough Echocardiogram from September 05 showed ejection fraction of 32% General Illness The patient's allergies, past history, and medications were reviewed. PHYSICAL EXAM Initial Vitals (see all): BP 117/66 | Pulse 103 | Resp 20 | Temp 97 | O2 97 %Weight 99.79 kg | Height 175.3 cm | BMI 32.49 kg/m2 Initial Pain Assessment (see all): 0 (no pain)/10 ([facility] Adult Scale 0-10) General: Alert. appropriate for age. no acute distress. nontoxic. Skin: Warm, dry. Head: Atraumatic. He has 2 areas of suture to the frontal areas of his scalp and says that he had recent removal of skin cancers in those areas In addition he has a abrasion to the left posterior scalp Neck: trachea midline. No distended neck veins Does not have much motion in his neck but feels that that is from his previous traumatic injury Eye: Normal conjunctiva. PERRL, EOMI, normal funduscopic exam without evidence of papilledema His right eye shows the eyelids are more open than on the left. However his daughter says this is the normal appearance Ears, nose, mouth and throat: airway patent. No inflammation Cardiovascular: Normal peripheral perfusion. Regular rate and rhythm without murmurs or extra sounds. No distended neck veins. . Respiratory: no respiratory distress. The lungs are clear to auscultation without rales wheezes or rhonchi. Breath sounds equal and present bilaterally. Gastrointestinal: Non distended. Abdomen is soft and nontender. No guarding. No rebound. No organomegaly. Musculoskeletal: No deformity. Neurological: No focal neurological deficit observed. alert. Able to move all extremities. However he does not lift his upper extremities above his shoulder Psychiatric: Cooperative. Differential diagnosis Near-syncope, possible medicine reaction to losartan PROCEDURES AND TREATMENTS ED Orders | ED Results MEDICAL DECISION MAKING Nursing notes and vital signs were reviewed. ED Course as of 10/06/232242 Sat October 06, 2023 1900 EKG reviewed by ER physician. Normal sinus rhythm at 99 beats per minute. Minimal voltage criteria for left ventricular hypertrophy may be normal variant. Possible inferior VT age undetermined. Most recent EKG is dated 09/04/2023. These studies look the same [DR] 2056 XR Chest 1 View No focal consolidation [DR] 2153 CT Head/Brain without contrast No acute intracranial abnormality [DR] 2221 Lactate with Reflex if Abnormal(!) Note lactic acid improving after IV fluids. Patient remains alert and conversant [] 2236 Care discussed with DUSTIN Armando covering for Dr. Hi hospitalist [DR] ED Course User Index [] Mamadou Clarke MD Amount and/or Complexity of Data Reviewed Labs: ordered. Decision-making details documented in ED Course. Radiology: ordered. Decision-making details documented in ED Course. ECG/medicine tests: ordered. Risk Prescription drug management. Clinical Impressions Near syncope Elevated lactic acid level Urinary tract infection without hematuria, site unspecified Disposition Admitted. I discussed the management of this patient with the admitting provider and I made a decision to admit the patient. Admission Order Ordered Status . 10/06/232242 Assign to Observation ONCE Ordered Mamadou Clarke * Kavitha Sloan RN - 10/06/2023 6:39 PM EDT Pt arrives via [place] for weakness and dizziness that started this afternoon. Pt reports that hestarted taking Amoxik today and "all hell broke loose". BSBS: 201. documented in this encounter Miscellaneous Notes * Ancillary Progress Note - Ema Zuniga RN - 10/11/2023 9:50 AM EDT CARE MANAGEMENT - ADULT DISCHARGE NOTE [facility] [place] [address] Name: Lewis Alarcon Location: [facility] [place] [id number]/D Date: 10/11/2023 Time: 9:50 AM The following coordination of care and discharge plan has been coordinated with the care team, patient, family and/or caregiver according to the patients needs and preferences. Discharge Discharge Second Notice Important Message from Medicare delivered: Yes (10/11/23949) Date Delivered: 10/10/23 (10/11/2350) Discharge Transportation: Family/Friends drive (10/11/23949) Date of scheduled discharge transportation: 10/11/23 (10/11/23949) Final Discharge Plan (Complete only at time of Discharge): Home with Services (10/11/2350) Home Medical Care - Admitted Since 10/06/2023 Service Provider Selected Services Address Phone Fax Patient Preferred Last Updated [facility] [address] [place] [address], [address], [facility] [address] -- Ema Zuniga RN 10/10/2023 1411 Narrative: Patient discharged home with spouse and [facility] resumption of care. [facility] made aware and they will see patient tomorrow. to provide transportation home. * Pt Handout (on AVS) - Kamille Leger RN - 10/11/2023 9:22 AM EDT [id number] Metoprolol Extended Release Oral Tablet Brands: Toprol Uses This medicine is used for the following purposes: angina heart attack heart failure high blood pressure irregular heart beat prevent migraine headaches movement disorder Instructions Swallow the medicine without crushing or chewing it. This medicine may be taken with or without food. This medicine will work best if you take it at about the same time every day. Store at room temperature away from heat, light, and moisture. Do not keep in the bathroom. It is important that you keep taking [...] about all medicines taken. Include prescription and qyzf-ilc-radungh medicines, vitamins, and herbal medicines. Speak with your doctor or pharmacist before starting or stopping any medicine. Tell your doctor if symptoms do not get better or if they get worse. If you have diabetes, this medicine may hide some signs of low blood sugar, such as fast heartbeat.Check your blood sugar regularly and for other signs of low blood sugar. Symptoms of low blood sugar may include nausea, shaking, sweating, cold skin, fast heartbeat, hunger, and irritability. If you need to stop this medicine, your doctor may wish to gradually reduce the dosage before stopping. Keep all appointments for medical exams and tests while on this medicine. Cautions Tell your doctor and pharmacist if you ever had an allergic reaction to a medicine. Some patients with weak hearts may have worsening of symptoms. If you notice difficulty breathing, weight gain, or swelling of your legs or ankles, let your doctor know right away. Do not use the medication any more than instructed. This medicine may cause dizziness or fainting. Do not stand or sit up quickly. Your ability to stay alert or to react quickly may be impaired by this medicine. Do not drive or operate machinery until you know how this medicine will affect you. Please check with your doctor before drinking alcohol while on this medicine. This medicine passes into breast milk. Ask your doctor before . During , this medicine should be used only when clearly needed. Talk to your doctor about the risks and benefits. Do not share this medicine with anyone who has not been prescribed this medicine. Side Effects The following is a list of some common side effects from this medicine. Please speak with your doctor about what you should do if you experience these or other side effects. diarrhea dizziness or drowsiness lack of energy and tiredness slow heartbeat lightheadedness Call your doctor or get medical help right away if you notice any of these more serious side effects: confusion depression or feeling sad swelling of the legs, feet, and hands fainting cold hands or feet mood changes pale or blue skin, lips or fingernails shortness of breath unusual or unexplained tiredness or weakness sudden or unexplained weight gain A few people may have an allergic reaction to this medicine. Symptoms can include difficulty breathing, skin rash, itching, swelling, or severe dizziness. If you notice any of these symptoms, seek medical help quickly. Extra Please speak with your doctor, nurse, or pharmacist if you have any questions about this medicine. [email or web address] IMPORTANT NOTE: This document tells you briefly how to take your medicine, but it does not tell youall there is to know about it. Your doctor or pharmacist may give you other documents about your medicine. Please talk to them if you have any questions. Always follow their advice. There is a more complete description of this medicine available in [place]. Scan this code on your smartphone or tablet or use the web address below. You can also ask your pharmacist for a printout. If you have any questions, please ask your pharmacist. The display and use of this drug information is subject to Terms of Use. Copyright(c) 2023 [employer]. 7188-6081 [employer]. All rights reserved. This information is not intended as a substitute for professional medical care. Always follow your healthcare professional's instructions. * Pt Handout (on AVS) - Kamille Leger RN - 10/11/2023 9:22 AM EDT Images from the original note were not included. [id number] Tamsulosin Oral Capsule Brands: Flomax Uses This medicine is used for the following purposes: kidney stones prostate enlargement Instructions Swallow the medicine without crushing or chewing it. Take the medicine 30 minutes after the same meal each day. This medicine will work best if you take it at about the same time every day. Keep the medicine at room temperature. Avoid [...] about all medicines taken. Include prescription and rmwi-hgg-nogmoeh medicines, vitamins, and herbal medicines. Speak with your doctor or pharmacist before starting or stopping any medicine. Cautions Tell your doctor and pharmacist if you ever had an allergic reaction to a medicine. Do not use the medication any more than instructed. This medicine may cause dizziness or fainting. Do not stand or sit up quickly. Your ability to stay alert or to react quickly may be impaired by this medicine. Do not drive or operate machinery until you know how this medicine will affect you. Please check with your doctor before drinking alcohol while on this medicine. Tell the doctor or pharmacist if you are , planning to be , or . It is unknown if this medicine passes into breast milk. Ask your doctor before . During , this medicine should be used only when clearly needed. Talk to your doctor about the risks and benefits. If you have a painful erection or an erection for more than 4 hours, seek medical care right away. Do not share this medicine with anyone who has not been prescribed this medicine. Side Effects The following is a list of some common side effects from this medicine. Please speak with your doctor about what you should do if you experience these or other side effects. dizziness or drowsiness Call your doctor or get medical help right away if you notice any of these more serious side effects: low blood pressure impotence problems with sexual functions or desire A few people may have an allergic reaction to this medicine. Symptoms can include difficulty breathing, skin rash, itching, swelling, or severe dizziness. If you notice any of these symptoms, seek medical help quickly. Extra Please speak with your doctor, nurse, or pharmacist if you have any questions about this medicine. [email or web address] IMPORTANT NOTE: This document tells you briefly how to take your medicine, but it does not tell youall there is to know about it. Your doctor or pharmacist may give you other documents about your medicine. Please talk to them if you have any questions. Always follow their advice. There is a more complete description of this medicine available in [place]. Scan this code on your smartphone or tablet or use the web address below. You can also ask your pharmacist for a printout. If you have any questions, please ask your pharmacist. The display and use of this drug information is subject to Terms of Use. Copyright(c) 2023 [employer]. [employer]. All rights reserved. This information is not intended as a substitute for professional medical care. Always follow your healthcare professional's instructions. * Pt Handout (on AVS) - Kamille Leger RN - 10/11/2023 9:22 AM EDT Images from the original note were not included. [id number] Polyethylene Glycol 3350 Powder For Oral Solution Brands: ClearLax, Gavilax, GentleLax, HealthyLax, Miralax, PureLax Uses For bowel movement. Instructions Mix the medicine with 4-8 oz. (120-240 mL) of water or juice, then drink. Drink the medicine immediately after mixing. This medicine may be taken with or without food. Keep this medicine at room temperature. Protect from moisture and high humidity. Keep the medicine away from heat and light. Frequent or detention use of laxatives can cause your bowels to depend on them. Do not use laxatives for more than one week unless directed by your doctor. To reduce constipation, eat high fiber foods, drink plenty of water and exercise. Tell your doctor and pharmacist about all your medicines. Include prescription and nwed-nyu-ajkoghjblwkpkdjq, vitamins, and herbal medicines. Tell your doctor if symptoms do not get better or if they get worse. Cautions Tell your doctor and pharmacist if you ever had an allergic reaction to a medicine. Do not use the medication any more than instructed. It is unknown if this medicine passes into breast milk. Ask your doctor before . During , this medicine should be used only when clearly needed. Talk to your doctor about the risks and benefits. Do not start or stop any other medicines without first speaking to your doctor or pharmacist. Side Effects The following is a list of some common side effects from this medicine. Please speak with your doctor about what you should do if you experience these or other side effects. bloating diarrhea excess gas nausea stomach upset or abdominal pain Call your doctor or get medical help right away if you notice any of these more serious side effects: severe or persistent abdominal pain severe, watery or bloody diarrhea stomach pain blood in stool A few people may have an allergic reaction to this medicine. Symptoms can include difficulty breathing, skin rash, itching, swelling, or severe dizziness. If you notice any of these symptoms, seek medical help quickly. Extra Please speak with your doctor, nurse, or pharmacist if you have any questions about this medicine. [email or web address] IMPORTANT NOTE: This document tells you briefly how to take your medicine, but it does not tell youall there is to know about it. Your doctor or pharmacist may give you other documents about your medicine. Please talk to them if you have any questions. Always follow their advice. There is a more complete description of this medicine available in [place]. Scan this code on your smartphone or tablet or use the web address below. You can also ask your pharmacist for a printout. If you have any questions, please ask your pharmacist. The display and use of this drug information is subject to Terms of Use. Copyright(c) 2023 [employer]. 1505-6108 [employer]. All rights reserved. This information is not intended as a substitute for professional medical care. Always follow your healthcare professional's instructions. * Pt Handout (on AVS) - Kamille Leger RN - 10/11/2023 9:22 AM EDT Images from the original note were not included. [id number] Midodrine Oral Tablet Uses For low blood pressure. Instructions This medicine may be taken with or without food. This medicine will work best if you take it at about the same time every day. Try to avoid taking the medicine at bedtime. Space doses at least 4 hours apart unless instructed otherwise. Store at room temperature away from heat, light, and moisture. Do not keep in the bathroom. It is important that you keep taking [...] about all medicines taken. Include prescription and kxuv-vbs-hlrtgkt medicines, vitamins, and herbal medicines. Speak with your doctor or pharmacist before starting or stopping any medicine. Keep all appointments for medical exams and tests while on this medicine. Cautions Tell your doctor and pharmacist if you ever had an allergic reaction to a medicine. Do not use the medication any more than instructed. This medicine may cause dizziness or fainting. Do not stand or sit up quickly. This medicine may cause dangerous increase in blood pressure when lying down. Do not take medicine less than four hours before bedtime or nap. Your ability to stay alert or to react quickly may be impaired by this medicine. Do not drive or operate machinery until you know how this medicine will affect you. Please check with your doctor before drinking alcohol while on this medicine. It is unknown if this medicine passes into breast milk. Ask your doctor before . This medicine can hurt a new baby in the womb. If you become while on this medicine, tell your doctor immediately. Your doctor may switch you to a different medicine. Do not share this medicine with anyone who has not been prescribed this medicine. Side Effects The following is a list of some common side effects from this medicine. Please speak with your doctor about what you should do if you experience these or other side effects. agitated feeling or trouble sleeping dizziness or drowsiness dry mouth muscle cramps skin tingling stomach pain increased urinary frequency Call your doctor or get medical help right away if you notice any of these more serious side effects: chest pain chills confusion throbbing in the ear fainting severe or persistent headache fast, irregular, or slow heartbeat high blood pressure nervousness difficulty or discomfort urinating blurring or changes of vision weakness A few people may have an allergic reaction to this medicine. Symptoms can include difficulty breathing, skin rash, itching, swelling, or severe dizziness. If you notice any of these symptoms, seek medical help quickly. Extra Please speak with your doctor, nurse, or pharmacist if you have any questions about this medicine. [email or web address] IMPORTANT NOTE: This document tells you briefly how to take your medicine, but it does not tell youall there is to know about it. Your doctor or pharmacist may give you other documents about your medicine. Please talk to them if you have any questions. Always follow their advice. There is a more complete description of this medicine available in [place]. Scan this code on your smartphone or tablet or use the web address below. You can also ask your pharmacist for a printout. If you have any questions, please ask your pharmacist. The display and use of this drug information is subject to Terms of Use. Copyright(c) 2023 [employer]. [employer]. All rights reserved. This information is not intended as a substitute for professional medical care. Always follow your healthcare professional's instructions. * Pt Handout (on AVS) - Kamille Leger RN - 10/11/2023 9:22 AM EDT [id number] Orthostatic Low Blood Pressure (Hypotension) A blood pressure reading is made up of 2 numbers that are measured in millimeters of mercury (mmHg). There is a top number over a bottom number. The top number is the systolic pressure. The bottom number is the diastolic pressure. A normal blood pressure is a systolic pressure less than 120 mmHg over a diastolic pressure less than 80 mmHg. Low blood pressure or hypotension is generally defined asa systolic blood pressure less than 90 mmHg. However, any drop in blood pressure greater than 40 mmHg from your normal baseline may be considered low blood pressure for you. Generally, the lower the blood pressure you have the better. However, it becomes a problem when it becomes too low and causessymptoms. Orthostatic hypotension is a type of low blood pressure that occurs only when you change position from lying or sitting to standing. Any drop in systolic pressure of 20 mmHg or diastolic pressure of 10 mm Hg when standing is significant. This drop in blood pressure can cause dizziness, lightheadedness, or fainting. Orthostatic hypotension is most commonly related to low blood volume or an abnormal neurological reflex. It's also more common as we age. However, it can be a sign of an underlying illness that may need further tests. Some medicines can cause orthostatic hypotension. These include: High blood pressure medicines Water pills (diuretics) Some heart medicines Some antidepressants Pain, anxiety, sedative, and sleep medicines Other causes include: Dehydration from vomiting, diarrhea, or not getting enough fluids Severe infection High fever Blood loss, such as bleeding from the stomach or intestines Neurological diseases that affect the autonomic nervous system Treatment will depend on what is causing your low blood pressure. Home care Follow these guidelines when caring for yourself at home: Rest until your symptoms get better. Change positions slowly from lying to standing. When getting out of bed, sit on the side of the bed with your legs down for at least 30 seconds before standing. This gives your body time to adjustto the position change. Follow the treatment plan described by your healthcare provider. Follow-up care Follow up with your healthcare provider, or as advised. When to get medical advice Call your healthcare provider right away if any of these occur: Mild dizziness or lightheadedness Small amount of black or red color, or blood, in your stools or vomit Diarrhea or vomiting that doesn?t go away Not being able to eat or drink Fever of 100.4F (38C) or higher, or as advised by your provider Burning feeling when you pee Bad-smelling pee Call 911 Call 911, or get immediate medical care at the nearest emergency room if any of these occur: Fainting; or severe dizziness or lightheadedness Large amount of black or red color, or blood, in your stools or vomit Abnormal chest pain or trouble breathing Last Reviewed Date: 07/12/202119996317-0653 [employer]. All rights reserved. This information is not intended as a substitute for professional medical care. Always follow your healthcare professional's instructions. * Pt Handout (on AVS) - Kamille Leger RN - 10/11/2023 9:22 AM EDT Images from the original note were not included. [address]1130 Preventing Falls at Home A person can [...] up. Use a "reach stick" to grab lvjj-wm-lnonj items. Install grab bars wherever needed to pull yourself up. Arrange items that you use often. This will make them easier to find or reach. Keep track of where your pets are so you don't trip over them when you are walking. Last Reviewed Date: 03/14/202219997813-3551 [employer]. All rights reserved. This information is not intended as a substitute for professional medical care. Always follow your healthcare professional's instructions. * Pt Handout (on AVS) - Kamille Leger RN - 10/11/2023 9:22 AM EDT [id number] Low Blood Pressure, All Causes A blood pressure reading is made up of 2 numbers There is a top number over a bottom number. The top number is the systolic pressure. It measures your pressure as your heart is wendy (squeezing) to pump blood. The bottom number is the diastolic pressure. It measures your pressure when the heart is relaxing and refilling with blood. A normal blood pressure is a systolic pressure less than 120 and a diastolic pressure less than 80. Low blood pressure (hypotension) is a blood pressure that is less than what is normal for you. Low blood pressure can cause dizziness, lightheadedness, or fainting. Some medicines can cause low blood pressure. They include: High blood pressure pills Water pills (diuretics) Some heart medicines Some antidepressants Pain, anxiety, sedative, and sleeping medicines Other causes include: Dehydration, severe infection, or fever Blood loss, such as bleeding from the stomach or intestines. Heart failure Change in heart rate or rhythm (arrhythmia) A drop in blood pressure from a sudden change in body position, from lying down to standing (orthostatic hypotension) Alcohol or drug intoxication Neurological diseases that impair the autonomic nervous system (the portion of the nervous system that regulates such things as internal organs and blood vessels) Treatment will depend on what is causing your low blood pressure. Home care Follow these guidelines when caring for yourself at home: Rest until your symptoms get better. Keep a record of your symptoms and what you were doing when they occurred. Bring the record withyou to your next appointment. Be aware of how quickly your blood pressure drops when you become dehydrated, spend a lot of time in the sun, or have low blood sugar. Take measures to prevent blood pressure drops at these times. Follow the treatment plan described by your healthcare provider. Follow-up care Follow up with your healthcare provider, or as advised. When to get medical advice Call your healthcare provider right away if any of these occur: Mild dizziness or lightheadedness Small amount of black or red color, or blood, in your stools or vomit Mild abdominal pain Diarrhea or vomiting that doesn?t go away You aren?t able to eat or drink Fever of 100.4F (38C) or higher, or as advised by your provider Burning feeling when you pee Bad-smelling urine Call 911 Call 911, or get immediate medical care at the nearest emergency department if any of the followingoccur: Fainting or severe dizziness or lightheadedness Large amount of black or red color, or blood, in your stools or vomit Abnormal pain in chest, shoulder, arm, neck, or upper back Abnormal shortness of breath or trouble breathing Severe abdominal pain Last Reviewed Date: 07/12/202119999177-4282 [employer]. All rights reserved. This information is not intended as a substitute for professional medical care. Always follow your healthcare professional's instructions. * Pt Handout (on AVS) - Kamille Leger RN - 10/11/2023 9:22 AM EDT Images from the original note were not included. [id number] Warfarin Oral Tablet Brands: Coumadin, Jantoven Uses This medicine is used for the following purposes: prevent blood clots treatment of blood clots Instructions This medicine may be taken with or without food. This medicine will work best if you take it at about the same time every day. Keep the medicine at room temperature. Avoid heat and direct light. It is important that you keep taking each dose of this medicine on time even if you are feeling well. If you forget to take a dose on time, take it as soon as you remember. If you don't remember until the next day, please call your doctor for instructions. Never take a double dose or skip a dose unless your provider tells you to do so. Tell your doctor and pharmacist about all your medicines. Include prescription and cdkq-ksh-dbnejkgllfcgttzk, vitamins, and herbal medicines. Cautions Tell your doctor and pharmacist if you ever had an allergic reaction to a medicine. Do not use the medication any more than instructed. Contact your doctor if you notice a change in the amount or darkening of your urine. Tell the doctor or pharmacist if you are , planning to be , or . Women who are or in their childbearing years should not touch or handle this medicine. This medicine can be absorbed through the woman's skin and harm the unborn baby. Call your doctor right away if you notice any unusual bleeding or bruising. Do not share this medicine with anyone who has not been prescribed this medicine. Side Effects The following is a list of some common side effects from this medicine. Please speak with your doctor about what you should do if you experience these or other side effects. nausea red, burning, or itchy skin stomach upset or abdominal pain Call your doctor or get medical help right away if you notice any of these more serious side effects: loss of balance bleeding or bruising chest pain coughing up blood or vomit that looks like coffee grounds dizziness fainting severe or persistent headache sudden leg pain, swelling, warmth or redness signs of liver damage (such as yellowing of eye or skin, dark urine, or unusual tiredness) pale or blue skin, lips or fingernails bloody or dark, tarry stools light colored stool symptoms of stroke (such as one-sided weakness, slurred speech, confusion) blood in urine A few people may have an allergic reaction to this medicine. Symptoms can include difficulty breathing, skin rash, itching, swelling, or severe dizziness. If you notice any of these symptoms, seek medical help quickly. Extra Please speak with your doctor, nurse, or pharmacist if you have any questions about this medicine. [email or web address] IMPORTANT NOTE: This document tells you briefly how to take your medicine, but it does not tell youall there is to know about it. Your doctor or pharmacist may give you other documents about your medicine. Please talk to them if you have any questions. Always follow their advice. There is a more complete description of this medicine available in [place]. Scan this code on your smartphone or tablet or use the web address below. You can also ask your pharmacist for a printout. If you have any questions, please ask your pharmacist. The display and use of this drug information is subject to Terms of Use. Copyright(c) 2023 [employer]. [employer]. All rights reserved. This information is not intended as a substitute for professional medical care. Always follow your healthcare professional's instructions. * Pt Handout (on AVS) - Kamille Leger RN - 10/11/2023 9:22 AM EDT Images from the original note were not included. [id number] Acetaminophen Oral Tablet Brands: Anacin AF, Cetafen, CounterAct Pain, Mapap, Panadol, Pharbetol, Ringl, Tactinal, Tycolene, Tylenol Uses This medicine is used for the following purposes: fever pain Instructions This medicine may be taken with or without food. Store at room temperature away from heat, light, and moisture. Do not keep in the bathroom. Drug interactions can change how medicines work or increase risk for side effects. Tell your healthcare providers about all medicines taken. Include prescription and dcgm-uff-nyhyoai medicines, vitamins, and herbal medicines. Speak with your doctor or pharmacist before starting or stopping any medicine. Tell your doctor if symptoms do not get better or if they get worse. You may stop using this medicine if you no longer have symptoms. Cautions Tell your doctor and pharmacist if you ever had an allergic reaction to a medicine. Do not use the medication any more than instructed. Do not drink beverages with alcohol while on this medicine. Tell the doctor or pharmacist if you are , planning to be , or . This medicine has acetaminophen. Many medicines have acetaminophen. Taking them together can cause you to get too much acetaminophen, which can cause serious liver problems. Read all medicine labels for acetaminophen. Ask your pharmacist which medicines you can take safely. Side Effects If you have any of the following side effects, you may be getting too much medicine. Please contactyour doctor to let them know about these side effects. signs of liver damage (such as yellowing of eye or skin, dark urine, or unusual tiredness) This medicine usually has no side effects. A few people may have an allergic reaction to this medicine. Symptoms can include difficulty breathing, skin rash, itching, swelling, or severe dizziness. If you notice any of these symptoms, seek medical help quickly. Extra Please speak with your doctor, nurse, or pharmacist if you have any questions about this medicine. [email or web address] IMPORTANT NOTE: This document tells you briefly how to take your medicine, but it does not tell youall there is to know about it. Your doctor or pharmacist may give you other documents about your medicine. Please talk to them if you have any questions. Always follow their advice. There is a more complete description of this medicine available in [place]. Scan this code on your smartphone or tablet or use the web address below. You can also ask your pharmacist for a printout. If you have any questions, please ask your pharmacist. The display and use of this drug information is subject to Terms of Use. Copyright(c) 2023 [employer] 2919-4491 [employer]. All rights reserved. This information is not intended as a substitute for professional medical care. Always follow your healthcare professional's instructions. * Pt Handout (on AVS) - Gloria Jimenez RN - 10/11/2023 9:05 AM EDT [id number] Orthostatic Low Blood Pressure (Hypotension) A blood pressure reading is made up of 2 numbers that are measured in millimeters of mercury (mmHg). There is a top number over a bottom number. The top number is the systolic pressure. The bottom number is the diastolic pressure. A normal blood pressure is a systolic pressure less than 120 mmHg over a diastolic pressure less than 80 mmHg. Low blood pressure or hypotension is generally defined asa systolic blood pressure less than 90 mmHg. However, any drop in blood pressure greater than 40 mmHg from your normal baseline may be considered low blood pressure for you. Generally, the lower the blood pressure you have the better. However, it becomes a problem when it becomes too low and causessymptoms. Orthostatic hypotension is a type of low blood pressure that occurs only when you change position from lying or sitting to standing. Any drop in systolic pressure of 20 mmHg or diastolic pressure of 10 mm Hg when standing is significant. This drop in blood pressure can cause dizziness, lightheadedness, or fainting. Orthostatic hypotension is most commonly related to low blood volume or an abnormal neurological reflex. It's also more common as we age. However, it can be a sign of an underlying illness that may need further tests. Some medicines can cause orthostatic hypotension. These include: High blood pressure medicines Water pills (diuretics) Some heart medicines Some antidepressants Pain, anxiety, sedative, and sleep medicines Other causes include: Dehydration from vomiting, diarrhea, or not getting enough fluids Severe infection High fever Blood loss, such as bleeding from the stomach or intestines Neurological diseases that affect the autonomic nervous system Treatment will depend on what is causing your low blood pressure. Home care Follow these guidelines when caring for yourself at home: Rest until your symptoms get better. Change positions slowly from lying to standing. When getting out of bed, sit on the side of the bed with your legs down for at least 30 seconds before standing. This gives your body time to adjustto the position change. Follow the treatment plan described by your healthcare provider. Follow-up care Follow up with your healthcare provider, or as advised. When to get medical advice Call your healthcare provider right away if any of these occur: Mild dizziness or lightheadedness Small amount of black or red color, or blood, in your stools or vomit Diarrhea or vomiting that doesn?t go away Not being able to eat or drink Fever of 100.4F (38C) or higher, or as advised by your provider Burning feeling when you pee Bad-smelling pee Call 911 Call 911, or get immediate medical care at the nearest emergency room if any of these occur: Fainting; or severe dizziness or lightheadedness Large amount of black or red color, or blood, in your stools or vomit Abnormal chest pain or trouble breathing Last Reviewed Date: 07/12/202119993048-6956 [employer]. All rights reserved. This information is not intended as a substitute for professional medical care. Always follow your healthcare professional's instructions. * Pt Handout (on AVS) - Gloria Jimenez RN - 10/11/2023 9:04 AM EDT Images from the original note were not included. [id number] Midodrine Oral Tablet Uses For low blood pressure. Instructions This medicine may be taken with or without food. This medicine will work best if you take it at about the same time every day. Try to avoid taking the medicine at bedtime. Space doses at least 4 hours apart unless instructed otherwise. Store at room temperature away from heat, light, and moisture. Do not keep in the bathroom. It is important that you keep taking [...] about all medicines taken. Include prescription and [id number] medicines, vitamins, and herbal medicines. Speak with your doctor or pharmacist before starting or stopping any medicine. Keep all appointments for medical exams and tests while on this medicine. Cautions Tell your doctor and pharmacist if you ever had an allergic reaction to a medicine. Do not use the medication any more than instructed. This medicine may cause dizziness or fainting. Do not stand or sit up quickly. This medicine may cause dangerous increase in blood pressure when lying down. Do not take medicine less than four hours before bedtime or nap. Your ability to stay alert or to react quickly may be impaired by this medicine. Do not drive or operate machinery until you know how this medicine will affect you. Please check with your doctor before drinking alcohol while on this medicine. It is unknown if this medicine passes into breast milk. Ask your doctor before . This medicine can hurt a new baby in the womb. If you become while on this medicine, tell your doctor immediately. Your doctor may switch you to a different medicine. Do not share this medicine with anyone who has not been prescribed this medicine. Side Effects The following is a list of some common side effects from this medicine. Please speak with your doctor about what you should do if you experience these or other side effects. agitated feeling or trouble sleeping dizziness or drowsiness dry mouth muscle cramps skin tingling stomach pain increased urinary frequency Call your doctor or get medical help right away if you notice any of these more serious side effects: chest pain chills confusion throbbing in the ear fainting severe or persistent headache fast, irregular, or slow heartbeat high blood pressure nervousness difficulty or discomfort urinating blurring or changes of vision weakness A few people may have an allergic reaction to this medicine. Symptoms can include difficulty breathing, skin rash, itching, swelling, or severe dizziness. If you notice any of these symptoms, seek medical help quickly. Extra Please speak with your doctor, nurse, or pharmacist if you have any questions about this medicine. [email or web address] IMPORTANT NOTE: This document tells you briefly how to take your medicine, but it does not tell youall there is to know about it. Your doctor or pharmacist may give you other documents about your medicine. Please talk to them if you have any questions. Always follow their advice. There is a more complete description of this medicine available in [place]. Scan this code on your smartphone or tablet or use the web address below. You can also ask your pharmacist for a printout. If you have any questions, please ask your pharmacist. The display and use of this drug information is subject to Terms of Use. Copyright(c) 2023 [employer]. 3900-3694 [employer]. All rights reserved. This information is not intended as a substitute for professional medical care. Always follow your healthcare professional's instructions. * Alma Hall - Johana Terrell RN - 10/11/2023 5:14 AM EDT Clinical Goal(s): Pt. will remain free from falls this shift (10/10/231950) Possible barriers to meeting goal(s)/advancing plan of care: Positive orthostatic Bps, weakness, unsteady Stability of the patient: Moderately stable - low risk of patient condition declining or worsening Summary regarding today's goal(s): Met: Pt. Has remained free from falls this shift Recommendations: Continue fall precautions * Care Plan - Nasim Llanes RN - 10/10/2023 5:32 PM EDT Clinical Goal(s): Pt will be out of bed for all meals during this shift (10/10/23829) Possible barriers to meeting goal(s)/advancing plan of care: diagnosis Stability of the patient: Moderately stable - low risk of patient condition declining or worsening Summary regarding today's goal(s): Met: Pt was oob for meals during this shift Recommendations: continue to encourage ambulation * Ancillary Progress Note - Ema Zuniga RN - 10/10/2023 2:11 PM EDT CARE MANAGEMENT - ADULT INITIAL SCREENING [facility] [place]-[address] [address] Name: Lewis Alarcon Location: [facility] [place] [id number] Date: 10/10/2023 Time: 2:11 PM Discussed patient with the interdisciplinary care team. This Binding Bench Worker performed a chart review and met with patient at bedside to complete admission screen and assessed needs for transition planning. The care giver role and services were explained and emotional support was provided. Chief Complaint: General Illness Prior Living Arrangements What was your living situation prior to admission/observation?: With Spouse (10/10/23 1408) Living Quarters: House (10/10/23 1408) Number of steps to enter living quarters:: 2 (10/10/23 1408) Do you have serious difficulty walking or climbing stairs? (5 years old or older): Yes (10/07/23 0000) History of falling: Yes (10/10/23 0830) Prior Level of Functioning Describe the patient's ability prior to admission/observation to perform ADLs: Requires assistance (10/10/231407) Requires assistance with: Bathing;Dressing (10/10/231407) Describe the patient's mobility status prior to admission: Patient requires assistance with ambulation (10/10/231407) Patient uses assistive device: Yes (10/10/231407) If yes, choose:: Walker (10/10/231407) Caregiver Information Patient Contacts Name Relation Home Work CIARA Price Spouse [phone] Yanelis Lawson Adult Child [phone] [facility] [place] 10/05 with diagnosis of orthostatic hypotension. Prior to admission patient resided at home with spouse in a 1 story home. Patient required assistance from with with bathing and dressing but able to do other ADL's himself. Patient requires assistance from with IADL's and prov ides transportation to appointments. Patient shared he had a stay at [facility] a few weeks ago and was discharged home with [facility] and is active with them. Confirmed with [facility] and made then aware of admission. Patient's goal is to return home with spouse and [facility] and declining SNF stay. Spouse to provide transportation on [place]. Risk Stratification/Psychosocial/Care Gaps Risk Stratification Psycho Social / Medical Concerns Identified: Adjustment to illness/injury (10/10/231407) Accessed Neighborly to connect patients to social care resources: No (10/10/231407) OBRA or OPTIONS needed for placement: No (10/10/231407) Readmission Risk Score: 16.24 (10/10/23 1201) AM-PAC Score With Stairs : 18 (10/10/23 0935) Prior to Admission Services Services Prior to Admission AIR CONDITIONING ENGINEER Services (Services received within the last 30 days with exception, Psych within last two years): Durable Medical Equipment (10/10/231407) AIR CONDITIONING ENGINEER Durable Medical Equipment (DME) in home: Walker Rolling;Raised toilet seat;Shower chair/bench (10/10/231407) [place] [employer]ging (PDA) Waiver Program: N/A (10/10/231407) AIR CONDITIONING ENGINEER Transportation (Services received within the last 30 days): Family/Friends Personal Vehicle (10/10/23 9496) Outpatient Binding Bench Worker: Patient Care Team: Yoli Denny, MSN as [place] Tonger Patient/Family Expectations: home with spouse For further screening information, please refer to the Care Management flow document. * Ancillary Progress Note - Minal Carranza COTA - 10/10/2023 1:20 PM EDT PROGRESS NOTE - Occupational Therapy [facility] [place]-[address] [address] Name: Lewis Alarcon Location: [facility] [place] [id number] Date: 10/10/2023 Time: 1:20 PM Lewis Alarcon is a 72 year old male. Patient Status: Inpatient Insurance: Payor: MEDICARE Plan: MEDICARE A AND B Product Type: *No Product type* Payor: AARP Plan: AARP Product Type: *No Product type* Patient Seen: at bedside, nursing cleared patient for therapy Patient Identified By: Name, ID Band and Date Diagnosis: syncope and collapse (10/09/23 1515) Status of treatment: Treatment completed (10/10/23 1320) Orders: OT evaluation and treatment (10/10/23 1320) Weight Bearing Status: Weight bearing as tolerated (10/10/23 1320) Precautions: Alarms;Falls;Safety (10/10/23 1320) Total Treatment Time: 25 (10/10/23 1320) Subjective: "I am doing alright today. I walked to [place] and did steps with that other min from therapy." Pain: Patient has complaints of pain. Pain located in R hip. Pt reported pain was a 3/10. Pt reported RN aware and he received ice to put on it. Observations Consciousness: Alert (10/10/23 1320) Orientation: Oriented times 4 (10/10/23 1320) Sitting posture: Kyphotic;Forward head;Rounded shoulders (10/09/23 1515) Standing posture: Kyphotic;Forward head;Rounded shoulders (10/09/23 1515) Safety awareness: The Patient verbalizes insight of current deficits.;The Patient demonstrates carryover of insight during functional tasks.;The Patient can communicate basic needs. (10/10/23 1320) Other Findings Endurance: Standing tolerance;Fair (10/09/23 151) Coordination: Intact (10/09/231514) Current Functional Status: Activities of Daily Living: Self Care Able to provide self care: No (10/09/231514) Feeding: Supervision (Please comment) (Pt needs assist to open containers and cut food) (10/09/23 151) Grooming: Supervision (Please comment) (10/09/23 151) Toileting: Moderate Assistance (per clinical judgement, setup for urinal) (10/10/23 1320) Dressing Upper Body: Moderate Assistance (10/09/23 151) Lower Body: Maximal Assistance (10/09/23 151) Bathing Upper Body: Moderate Assistance (10/09/23 151) Lower Body: Maximal Assistance (10/09/23 151) Functional Ambulation Assistive Device: Rolling walker (10/09/231514) Distance in feet:: 25 (10/09/231514) Level of Assistance: Minimal Assistance (10/09/23 151) Bed Mobility Supine-Sit: Moderate Assistance (10/09/23 1515) Sit-Supine: Moderate Assistance (10/09/23 151) Sit - Sidelying: Moderate Assistance (10/09/23 151) Sidelying - Sit: Moderate Assistance (10/09/23 151) OT Transfers Sit-Stand: Minimal Assistance (10/09/23 151) Stand-Sit: Minimal Assistance (10/09/23 151) Bed-Chair: Minimal Assistance (10/09/231514) Balance Sit (Static): Fair (10/09/231514) Sit (Dynamic): Fair (10/09/231514) Stand (Static): Fair (10/09/231514) Stand (Dynamic): Fair (10/09/231514) Patient Education Education Topic: Role of OT;Plan of care goals (10/09/231514) Review of Precautions: Safety;Fall (10/09/231514) Method of Education: Verbalized to patient (10/09/231514) Education Provided to: Patient (10/09/231514) Response to Education: Receptive and agreeable to education (10/09/231514) Preferred learning method: Combination (10/09/231514) Alarm Status Patient positioned in: Chair (10/10/231319) With: Call kebede in reach (alarm setting the same as prior to OT arrival) (10/10/231319) Treatment Provided: Therapeutic Procedure: 25 minutes Upper Extremity exercise Demonstrate Exercises: LUE;RUE;Shoulder;Elbow;Wrist;3 sets of 10;Flexion;Extension;Internal/external rotation;Shoulder shrugs;Supination/pronation (10/10/231319) Peformed in: Seated (10/10/231319) Deficits requiring O.T. treatment needs: ADL/self- care;Balance;Endurance;Functional mobility;Safety;Upper extremity strength (10/09/231514) Assessment: Pt was agreeable to participating in treatment. OT [facility] remained the same a 13. Pt sitting in chair upon arrival to room. While in chair pt utilized urinal with setup. Pt reported no other ADLs to complete at this time. He then completed 3 sets of 10 of UE exercises including: shouldershrugs, elbow flexion/extension, IR/ER, forearm supination/pronation, wrist flexion/extension. Pt completed these with good tolerance. Exercises were completed to increase improvement with ADLs, functional mobility, ROM, and strength. Pt was left in chair with feet elevated, call kebede in reach, bedside table to the L, daughter and present. Plan: Continue treatment as directed by the OT consult. Anticipated Frequency (on eval): 1 to 3 times per week (10/09/231514) Equipment Equipment used in Therapy: Hospital bed;Rolling walker (10/09/231514) AM-PAC Help From Another Person Eating Meals: A little (10/10/231319) Help From Another Person Taking Care of Personal Grooming: A little (10/10/231319) Help From Another Person To Put On/Take Off Upper Body Clothing: A lot (10/10/231319) Help From Another Person To Put On/Take Off Lower Body Clothing: Total (10/10/231319) Help From Another Person Toileting: A lot (10/10/231319) Help From Another Person Bathing: A lot (05/29/24 1320) OT AM-PAC Score: 13 (10/10/23 1320) OT AM-PAC t-Scale Score: 32.03 (10/10/23 1320) HLM (Highest Level of Mobility) Goal: Level 6 walk 10 steps or more (10/10/23 0935) * Ancillary Progress Note - Minal Carranza COTA - 10/10/2023 11:58 AM EDT Attempted to see pt at 1158, pt was eating lunch at this time. Treatment will be attempted at a later time or date dependent on schedule, pt tolerance, and pt medical status. * Ancillary Progress Note - Violet Montgomery RD - 10/10/2023 10:59 AM EDT CLINICAL NUTRITION ADULT RISK ASSESSMENT [facility] [place]-[address] [address] Name: Lewis Alarcon Location: [facility] [place] [id number]/D Date: 10/10/2023 Time: 10:59 AM How patient was identified (select 2): date and Name Lewis Alarcon is a 72 year old male being assessed for clinical nutrition risk related to unable to answer Primary diagnosis: orthostatic hypotension, Type 2 Diabetes Other pertinent information: Patient is OOB to chair. He reports his appetite is alright. PO intakevaries from 20-100% during current ADM. Denies N/V. Patient reports having diarrhea on the first day of ADM and having constipation for the past 2 days. Patient reports appetite is good at home. He does not follow any special diet. Breakfast - muffin, toast, cantaloupe, watermelon Lunch - boloney sandwich, chips Dinner - roast beef, steak, potato, vegetables Snack - chocolate chip cookie Patient is aware of the weight loss (6% weight loss in 30 days). He has been trying to loose weightsince he was diagnosed with diabetes. Intentional weight loss - possible related to change in diet/portion size/medication (starts taking metformin on July 2023) and age. Anthropometrics Measurements Admission weight (for dietitians): 73kg Height: 175.3 cm (5' 9") (10/06/23 2353) Weight: 74.4 kg (164 lb) (10/07/23 0010) BMI: 32.47 (10/06/23 1838) Usual Body Weight or EDW for Dialysis Patients: 80kg +/- 2 per EMR Diet: 4 Choices (60 gm) Consistent Carbohydrate Heart Healthy, 2 gm Sodium Previously followed diet: regular Food Allergies/Intolerances: NKFA Oral Nutrition Supplement (ONS): none Pertinent medications/vitamins/minerals/supplements: Medications reviewed. No significant nutritionrelated medications noted. RISK FACTORS: Adult Energy Intake: No significant decrease Interpretation of Weight Change: Greater than 5% weight loss in 1 month (Severe) - 6% wt loss in 30days. Intentional weight loss likely due to diet change, medication, or age. Wt Readings from Last 5 Encounters: 10/07/23 74.4 kg (164 lb) 10/05/23 73 kg (161 lb) 09/27/23 74.3 kg (163 lb 11.2 oz) 09/11/23 78.8 kg (173 lb 11.6 oz) 08/31/23 79.4 kg (175 lb) Skin: Intact NUTRITION RISK CATEGORY: Nutrition Risk Category: Low/Moderate (0-1 factors) Clinical Nutrition Recommendations: Diet: Continue current nutrition plan NUTRITION INTERVENTION/PLAN: Continue current care plan Will follow and adjust nutritional plan as medical condition requires. Please contact for change(s)in patient condition requiring earlier intervention. Violet Montgomery MS, RDN Clinical Nutrition [facility] Available via [place] Text [phone] * Ancillary Progress Note - Gerardo Horan PTA - 10/10/2023 9:35 AM EDT PROGRESS NOTE - Physical Therapy [facility] [place]-[address] [address] Name: Lewis Alarcon Location: [facility] [place] [id number]/D Date: 10/10/2023 Time: 934 Lewis Alarcon is a/an 72 year old male. Patient Status: Inpatient Insurance: Payor: MEDICARE Plan: MEDICARE A AND B Product Type: *No Product type* Payor: AARP Plan: AARP Product Type: *No Product type* Patient Seen: at bedside, nursing cleared patient for therapy Patient Identified By: Name, ID Band and Date Diagnosis: ambulatory dysfunction secondary to syncope/collapse (10/09/231399) Status of treatment: Treatment completed (10/10/23934) Orders: PT evaluation and treatment (10/09/231399) Weight Bearing Status: Weight bearing as tolerated (10/10/23934) Precautions: Safety;Falls (10/10/23934) Total Treatment Time--free text: 25 mins (10/10/23934) Subjective: "The Is changing my meds again" Pain: No complaints of pain P.T. Bed Mobility Supine-Sit: Moderate Assistance (10/09/231399) Sit-Supine: Moderate Assistance (10/09/231399) Transfers Sit-Stand: Contact Guard (10/10/23934) Stand-Sit: Contact Guard (10/10/23934) Ambulation: Distance ambulated (feet): 250 Assistive Device: Rolling walker Assist: Supervision Stair Training: Number of stairs: 4 Number of handrails: 2 Level of Assistance: SBA Balance Sit (Static): Good (10/09/231399) Sit (Dynamic): Good (10/09/231399) Stand (Static): Good (10/09/231399) Stand (Dynamic): Fair (10/09/231399) Patient and or Family Goal(s): to get well and to return home Topic of Education: Safety with mobility, Use of assistive device, Stair training, and Fall prevention Method of Education: Demonstrated the above task to pt: verbalized understanding and or agreement of this information and demonstrated the exercise and or task Treatment Provided: Gait Training 25 minutes: gait training with rolling walker stair training Alarm Status Patient positioned in: Bed (10/10/23934) With: Call kebede in reach (10/10/23934) Patient Education Review of Precautions: Safety;Fall (10/10/23934) Safety Awareness: Patient verbalizes insight of current deficits;Patient demonstrates carryover of insight during functional tasks;Patient can communicate basic needs (10/10/23 0935) Preferred learning method: Combination (10/09/23 1400) Barriers to learning: Medical Status (10/09/23 1400) Method of Education: Verbalized to patient (10/09/23 1400) Assessment: Pt tolerated tx fair with no reported pain or SOB post tx session. Pt did report feeling fatigued post tx session. Pt was able to transfer and ambulate with CGA for STS and SBA for ambulation. Pt was able to ambulate with a RW 250 ft with no LOB. Pt also able to go up/down 4 stairs withB HR and SBA. Pt was returned to sitting up in the chair with feet elevated to comfort. No needs post tx session. Pt instructed to not get up without assistance. Deficits requiring P.T. treatment needs: Safety;Mobility (10/09/231399) Plan: Continue with current treatment plan established on evaluation. AM PAC Score with Stairs: 18 * Care Plan - Mary Chaudhari RN - 10/10/2023 6:27 AM EDT Clinical Goal(s): Patient will have a BM this shift. (10/09/232044) Possible barriers to meeting goal(s)/advancing plan of care: Pt has not had a BM in over 48 hours. Pt's decreased mobility d/t orthostatic hypotension. Stability of the patient: Moderately stable - low risk of patient condition declining or worsening Summary regarding today's goal(s): Not Met: Pt did not have a BM this shift. Recommendations: Continue to use PRN bowel regiment meds as prescribed. Continue to monitor pt's I&Os. Continue to encourage frequent and progressive ambulation according to pt's ability. Continue to employ fall safety measures (non-skid socks, fall alarms, fall risk signs, clear pathways, callbell within reach). * Care Plan - Daniel German RN - 10/09/2023 6:32 PM EDT Clinical Goal(s): Patient will remain free from falls this shift. (10/09/23 0800) Possible barriers to meeting goal(s)/advancing plan of care: diagnosis Stability of the patient: Moderately stable - low risk of patient condition declining or worsening Summary regarding today's goal(s): Met: patient remained free from falls this shift Recommendations: continue fall precautions, continue hourly rounding * Medical Necessity - Norris Martinez RN - 10/09/2023 12:05 PM EDT AdmissionCare Guideline: Syncope - INPT, Inpatient Based on the indications selected for the patient, the bed status of Inpatient was determined to beMET The following indications were selected as present at the time of evaluation of the patient: - Hemodynamic instability, as indicated by 1 or more of the following: - Vital sign abnormality not readily corrected by appropriate treatment, as indicated by 1 or more of the following: - Orthostatic hypotension that persists despite appropriate treatment (eg, volume repletion) Additional Information: UTILIZATION MANAGEMENT PHYSICIAN ADVISOR REVIEW FOR MEDICAL NECESSITY DETERMINATION After review of the medical record including ED notes, attending physician notes, retail wireless sales consultant notes,results and orders, the patient is assigned to observation status, recommend inpatient status. Change in patient status is appropriate due to the medical necessity reasons stated below. With a reasonable degree of medical certainty, the patient will medically require a hospital stay which will span2 midnights for evaluation, treatment, and close monitoring. Pr attn note pt was ortho hypotensive and needs ivf Luanne Abdul MD AdmissionCare documentation entered by: Norris Martinez [facility] [employer], 27th edition, Copyright 2022 [facility] [employer] All Rights Reserved. [id number]:05:43-04:00 Solely for purpose of utilization review and payment; not a diagnostic tool * Care Plan - Mary Chaudhari RN - 10/09/2023 5:12 AM EDT Clinical Goal(s): Patient will remain free from falls this shift. (10/08/231917) Possible barriers to meeting goal(s)/advancing plan of care: Pt's (+) Orthostatic BPs and Dx of syncope and collapse. Stability of the patient: Moderately stable - low risk of patient condition declining or worsening Summary regarding today's goal(s): Met: Pt remained free from falls. Recommendations: Continue to monitor pt's orthostatic BP. Continue to encourage frequent and progressive ambulation according to pt's ability. Continue to employ fall safety measures (non-skid socks,fall alarms, fall risk signs, clear pathways, call ekbede within reach). Maintain 1 assist with all ambulation. * Care Plan - Kamille Junior RN - 10/08/2023 6:29 PM EDT Clinical Goal(s): Patient will be free from falls this shift. (10/08/23811) Possible barriers to meeting goal(s)/advancing plan of care: multiple recent falls. Stability of the patient: Moderately stable - low risk of patient condition declining or worsening Summary regarding today's goal(s): Met: Patient remained free from falls this shift. Recommendations: Continue to utilize fall interventions. Encourage mobility to increase/ maintain strength. * Care Plan - Mary Chaudhari RN - 10/08/2023 5:20 AM EDT Clinical Goal(s): Patient will report no GI distress this shift. (10/07/231999) Possible barriers to meeting goal(s)/advancing plan of care: Pt's Hx of bloating and discomfort following PO intake Stability of the patient: Moderately stable - low risk of patient condition declining or worsening Summary regarding today's goal(s): Met: Pt reported no GI distress this shift. Recommendations: Continue to monitor pt's I&Os. Continue abdominal assessments. Continue to encourage frequent and progressive ambulation according to pt's ability. Continue to employ fall safetymeasures (non-skid socks, fall alarms, fall risk signs, clear pathways, call kebede within reach, proper use of rolling walker during ambulation). * Care Plan - Kamille Junior RN - 10/07/2023 6:42 PM EDT Clinical Goal(s): Patient will remain free from falls. (10/07/23 0792) Possible barriers to meeting goal(s)/advancing plan of care: Orthostatic hypotension. Stability of the patient: Moderately stable - low risk of patient condition declining or worsening Summary regarding today's goal(s): Met: Patient remained free from falls today. Recommendations: Continue with current fall interventions. Anticipate needs and keep all needed items within reach. Continue with non skid socks, bed/chair alarm and hourly rounding. * Pt Handout (on AVS) - Kinjal Gaines RN - 10/07/2023 3:11 PM EDT Images from the original note were not included. 00388 Understanding Urinary Tract Infections (UTIs) Most UTIs are caused by bacteria. But they may also be caused by viruses or fungi. Bacteria from the bowel are the most common source of infection. The infection may start due to any of these: Having sex. During sex, bacteria can go from the penis, vagina, or rectum into the urethra. Bacteria outside the rectum getting into the urethra. Bacteria on the skin outside the rectum may go into the urethra. This is more common in people who were assigned female at . That's because for them, the rectum and urethra are closer to each other than in people who were assigned male at . Wiping from front to back after using the toilet can help prevent germs from getting to theurethra. So can keeping the area clean. Blocked urine flow through the urinary tract. If urine sits too long, germs may start to grow out of control. Parts of the urinary tract The infection [...] people who were assigned female at . So for them, bacteria can move through it more easily. The urethra is longer in people who were assigned male at . So a UTI is less likely to reach the bladder orkidneys for them. Last Reviewed Date: 03/14/202119993918-4670 [employer]. All rights reserved. This information is not intended as a substitute for professional medical care. Always follow your healthcare professional's instructions. * Pt Handout (on AVS) - Kinjal Gaines RN - 10/07/2023 3:11 PM EDT Images from the original note were not included. 07640 Urinary Tract Infections in Men Urinary tract [...] scarring or long-term infections. Last Reviewed Date: 07/13/202319992901-7119 [employer]. All rights reserved. This information is not intended as a substitute for professional medical care. Always follow your healthcare professional's instructions. * Pt Handout (on AVS) - Kinjal Gaines RN - 10/07/2023 3:10 PM EDT Images from the original note were not included. 22210 Diagnosing Syncope Syncope is when you suddenly faint or pass out (lose consciousness). It's caused by not getting enough blood flow to the brain. Syncope can have many causes. Some of them aren't serious, but others may be life-threatening. Your healthcare provider will ask you about your fainting episode and your past health. They'll also do an exam. You may need a number of tests to assess your symptoms. Health history and exam You may be asked about: Where and when you fainted How long you weren't awake and aware (unconscious) How you felt just before and right after you fainted How you feel when you do moderate to heavy exercise If you have a family history of heart disease or fainting If you have a heart or neurological problem What medicines you're taking If you drink alcohol If you use illegal drugs Your healthcare provider will examine you and may: Check your blood pressure while lying down, sitting, and standing Listen for any heart murmurs or abnormal heartbeats Listen and feel the pulses in your neck Examine your eyes, reflexes, and limb movement Tests Holter monitor You may need one of more of the following tests: Electrocardiogram (ECG). This test can help find a slow, fast, or irregular heartbeat. Holter monitoring. You wear a portable ECG monitor for 24 to 48 hours. It records your heartbeatand looks for any problems. Event monitoring. You wear a portable ECG monitor for several weeks. Like a Holter monitor, it records your heartbeat and looks for any problems. Implantable loop recorder. This is a small heart monitor that's inserted over the heart under the skin. It's used for long-term heart rhythm recordings, usually up to 3 to 4 years. Echocardiogram. This test takes pictures of your heart with ultrasound. It can show heart valve or heart function problems. It can also show damage from a heart attack. Electrophysiology studies (EPS). These help find weak, damaged, or overactive electrical pathways that make your heart beat too fast or slow. They can find the cause of a heart rate or rhythm problem. They can also help your healthcare provider decide how to treat it. Tilt table testing. This testing helps show if changes in your body position affect your heart rate and blood pressure. Carotid artery ultrasound. This test shows the blood flow through the arteries in the neck that supply oxygen and circulation to your brain. It can find any blockages in these arteries. MRI or CT scan of the neck and brain. These tests see if there is something else going on in thebrain that is causing a loss of consciousness. They scan the blood flow and brain structures. They are done in a radiology department. Blood and other lab tests. These tests are used to find any problems in your body that may causesyncope. For example, low blood sugar can cause a loss of consciousness. It may be mistaken for syncope. Other wastes and toxins, and even dehydration, can affect brain function and consciousness. Electroencephalogram (EEG). If your healthcare provider thinks you may be having seizures instead of syncope, this test may be done. Electrodes are put on your scalp. They measure the activity of the brain. A neurologist who specializes in reading EEGs studies the results. You may need to see other specialists to fully assess the cause of your syncope. For instance, you may see a landscape maintenance internship or a neurologist.. Treatment will be based on the cause of your syncope. Ask your healthcare provider how you'll get the test results and what steps must be taken. One of the concerns with syncope is being injured if you faint. Finding a cause for syncope can help keep you safe from injury. Don't drive a car, use heavy machinery, or do activities that may result in injury if you were to faint. Ask your provider when it's safe to do these activities again. Last Reviewed Date: 02/11/202319995656-9682 [employer]. All rights reserved. This information is not intended as a substitute for professional medical care. Always follow your healthcare professional's instructions. * Pt Handout (on AVS) - Kinjal Gaines RN - 10/07/2023 3:10 PM EDT Images from the original note were not included. 56880 What Is Syncope? Syncope is also known as fainting or a blackout. It's an abrupt and short-term loss of consciousness and motor tone. It's often caused by a sudden drop in blood flow to the brain or a lack of oxygen to the brain. It's then followed by complete and often rapid spontaneous recovery. Most people don?tneed follow-up treatment. However, you need treatment for certain causes, such as a heart or neurological issue. Also seek treatment if you were injured when you fainted, such as a head injury. The heart pumps blood nonstop to the brain and the rest of the body. Understanding heart rate and blood pressure changes Your brain and body need a steady flow of oxygen-rich blood. Your heart rate and blood pressure change to keep that flow steady throughout all your activities. The heart makes electrical signals that move through it on pathways. These signals set the heartrate. They also tell the heart when to pump blood. In response to your body?s needs, your brain may also trigger changes in your heart rate and blood pressure. Sensors in the body detect the amount of blood flow going to the brain and other parts of the body. If these sensors detect low blood flow, they signal the body to increase the amount of fluid in the blood vessels and increase the heart rate to provide more circulation. The blood leaving the heart with each contraction supplies oxygen and nutrients as it flows in your brain. Warning signs Syncope often happens suddenly. Warning signs include: Dimmed, blackened, or tunnel vision Lightheadedness Sleepiness Rapid heartbeat Some people may also feel nauseated or sweaty. But you may have no warning signs at all. After syncope, you get better quickly. But you may feel tired. Don't drive if you are having warning signs that you may faint. Is it serious? Syncope is a common problem with many possible causes. Often these causes are not serious. For instance, syncope can be caused by standing for too long or sitting up too fast. In some cases, you may never faint again. But if you have syncope with a heart problem, it can be a warning sign of a more serious problem. For this reason, your healthcare provider may order several tests to look at heart function and rhythm. If you have had syncope, talk with your healthcare provider. In older adults, syncope may be a sign that a heart attack has happened. Don't delay seeking treatment. Even if the cause of syncope is not serious, there is a risk of injury from falling when you lose consciousness. When possible, finding a cause can reduce this risk. Last Reviewed Date: 08/13/202319993296-1240 [employer]. All rights reserved. This information is not intended as a substitute for professional medical care. Always follow your healthcare professional's instructions. * Care Plan - Mary Jo Mckenzie RN - 10/07/2023 5:19 AM EDT Clinical Goal(s): Patient will remain free from falls this shift (10/06/23 7775) Possible barriers to meeting goal(s)/advancing plan of care: patient falling frequently at home, new environment Stability of the patient: Moderately stable - low risk of patient condition declining or worsening Summary regarding today's goal(s): Met: yes Recommendations: continue use of bed/chair/fall alarms as necessary, nonskid foot wear, call kebede use reinforced and kept within reach of patient * Pt Handout (on AVS) - Oralia Salazar [facility] - 10/07/2023 2:12 AM EDT Images from the original note were not included. [id number] Warfarin Oral Tablet Brands: Coumadin, Jantoven Uses This medicine is used for the following purposes: prevent blood clots treatment of blood clots Instructions This medicine may be taken with or without food. This medicine will work best if you take it at about the same time every day. Keep the medicine at room temperature. Avoid heat and direct light. It is important that you keep taking each dose of this medicine on time even if you are feeling well. If you forget to take a dose on time, take it as soon as you remember. If you don't remember until the next day, please call your doctor for instructions. Never take a double dose or skip a dose unless your provider tells you to do so. Tell your doctor and pharmacist about all your medicines. Include prescription and oswd-ayg-wkjyjetjobdektgr, vitamins, and herbal medicines. Cautions Tell your doctor and pharmacist if you ever had an allergic reaction to a medicine. Do not use the medication any more than instructed. Contact your doctor if you notice a change in the amount or darkening of your urine. Tell the doctor or pharmacist if you are , planning to be , or . Women who are or in their childbearing years should not touch or handle this medicine. This medicine can be absorbed through the woman's skin and harm the unborn baby. Call your doctor right away if you notice any unusual bleeding or bruising. Do not share this medicine with anyone who has not been prescribed this medicine. Side Effects The following is a list of some common side effects from this medicine. Please speak with your doctor about what you should do if you experience these or other side effects. nausea red, burning, or itchy skin stomach upset or abdominal pain Call your doctor or get medical help right away if you notice any of these more serious side effects: loss of balance bleeding or bruising chest pain coughing up blood or vomit that looks like coffee grounds dizziness fainting severe or persistent headache sudden leg pain, swelling, warmth or redness signs of liver damage (such as yellowing of eye or skin, dark urine, or unusual tiredness) pale or blue skin, lips or fingernails bloody or dark, tarry stools light colored stool symptoms of stroke (such as one-sided weakness, slurred speech, confusion) blood in urine A few people may have an allergic reaction to this medicine. Symptoms can include difficulty breathing, skin rash, itching, swelling, or severe dizziness. If you notice any of these symptoms, seek medical help quickly. Extra Please speak with your doctor, nurse, or pharmacist if you have any questions about this medicine. [email or web address] IMPORTANT NOTE: This document tells you briefly how to take your medicine, but it does not tell youall there is to know about it. Your doctor or pharmacist may give you other documents about your medicine. Please talk to them if you have any questions. Always follow their advice. There is a more complete description of this medicine available in [place]an. Scan this code on your smartphone or tablet or use the web address below. You can also ask your pharmacist for a printout. If you have any questions, please ask your pharmacist. The display and use of this drug information is subject to Terms of Use. Copyright(c) 2023 [employer]. 9043-3515 [employer]. All rights reserved. This information is not intended as a substitute for professional medical care. Always follow your healthcare professional's instructions. * ED Demand Equipment Repairer Note - Cynthia Narayan RN - 10/06/2023 11:39 PM EDT Gave report to Brenda on 6b * Medical Necessity - Landen Leiva, Utilization Review Staff - 10/06/2023 10:49 PM EDT AdmissionCare Guideline: General Observation, Observation Based on the indications selected for the patient, the bed status of Observation was determined to be MET The following indications were selected as present at the time of evaluation of the patient: - Clinical care (eg, testing, monitoring, or treatment) needed beyond the usual emergency department time frame (eg, 3 to 4 hours) - Clinical care needed is not appropriate for a lower level of care (ie, discharge to outpatient setting not appropriate). - Patient has clinical condition for which observation care is needed, as indicated by 1 or more ofthe following: - Urologic condition or finding (eg, obstruction, urinary retention, difficulty urinating, suspected acute kidney injury, priapism, hematuria, prostatitis, scrotal, testicular, or epididymal pain or disorder) Additional Information: Near syncope Elevated lactic acid level Urinary tract infection without hematuria, site unspecified AdmissionCare documentation entered by: Landen Leiva [facility] [employer], 27th edition, Copyright 2022 [facility] [employer] All Rights Reserved. [id number]:49:44-04:00 Solely for purpose of utilization review and payment; not a diagnostic tool * ED Demand Equipment Repairer Note - Elyssa Torres, TREY - 10/06/2023 8:[address] clarke aware of pt lactate of 5.5 documented in this encounter Plan of Treatment Upcoming Encounters Date Type Department Care Team (Late st Contact Info) Description 10/17/2023 10:40 AM EDT Anticoagulation Pharmacy, [address] [place] Seth [phone] Pharmacist1, [facility] [address] [place] [address] 10/17/2023 11:00 AM EDT Office Visit Family [facility], [place] [address] [place] [phone] Kaiser Amanda MD [address] [place] [address] 10/22/2023 9:15 AM EDT Office Visit Urology Aleida Bearden [place] [address] [place] [address] Bert Boogie Jr., MD [address] [facility] [address] 10/29/2023 2:30 PM EDT Office Visit Cardiology, [place] [address] [place] [address] [facility] [address] [place] [address] 11/07/2023 2:30 PM EDT Office Visit Neurology, [place] [address] [place] [address] Ruth Lobo PA-C [address] [place] [address] 01/21/2024 2:00 PM EDT Office Visit Endocrinology, [place] [address], [place] [phone] Sakina Jones MD [address], [place] [phone] 01/25/2024 3:30 PM EDT Office Visit [facility] [address] [facility], [place] [phone] [facility] [address] [facility] [address] 02/25/2024 9:20 AM EDT Office Visit [facility], [place] [address] [phone] Kaiser Amanda MD [address] [place] [phone] Scheduled Orders Name Type Priority Associated Diagnoses Orde r Schedule 3 POSITIONAL BLOOD PRESSURE Procedures STAT One Time for 1 Occurrences starting 10/06/2023 until 10/06/2023 Scheduled Procedures Name Priority Associated Diagnoses Date/Ti [...] 04/16/2022, Additional history exists B-12 07/25/2024 07/26/2023, 1005/2021, 11/15/2021, Additional history exists Diabetic Foot Exam 07/25/2024 07/26/2023, 0 06/09/2022, 04/11/2021, Additional history exists GFR 10/09/2024 10/10/2023, 0512/2023, 10/08/2023, Additional history exists DXA Scan 01/25/2025 [...] D LEVEL ONCE IN A LIFETIME-USE SMARTSET# [id number] Completed 07/26/2023, 02/26/2023, 01/23/2023, Additional history exists [...] this encounter Medical Devices Implanted Type Area Diamond Powder Technician Device Identifier Shelf Expiration Date Model / Serial / Lot Cement Bone Simplex Hv & G - [id number] Implanted:Qty: 2 on 09/02/2020 by Gianni Hubbard MD at OR [facility] [place] Right: Hip LUDY : [employer] 08/11/2021 [id number] / / [id number] Spacer Ring Aclde Distal Lg 14 - [id number] Implanted:Qty: 1 on 09/02/2020 by Gianni Hubbard MD at OR [facility] [place] Right: Hip LUDY : ORTHOP[employer] 11/25/2024 [id number] / / Accolade C Cs 127 6 37/158 - [id number] Implanted:Qty: 1 on 09/02/2020 by Gianni Hubbard MD at OR [facility] [place] Right: Hip LUDY : OR[employer] 05/29/2023 [id number] / / [id number] Hip Cocr Lfit Head V40 28/+4 - [id number] Implanted:Qty: 1 on 09/02/2020 by Gianni Hubbard MD at OR [facility] [place] Right: Hip LUDY : OR[employer] 11/15/2024 [id number] / / [id number] Hip Head Bipol Uhr Uni 28x52 - [id number] Implanted:Qty: 1 on 09/02/2020 by Gianni Hubbard MD at OR [facility] [place] Right: Hip LUDY : ORTHOPA[employer] 11/25/2024 [id number] / / [id number] Lens Intraoc 17.5 - [id number] - [id number] Implanted:Qty: 1 on 03/23/2022 by Rad Morgan MD at OR [facility] Left: Eye BAUSCH & [employer]OMB 10/11/2026 [id number] / [id number] / [id number] Lens Intraoc 18.0 - [id number] - [id number] Implanted:Qty: 1 on 03/30/2022 by Rad Morgan MD at OR [facility] Right: Eye BAUSCH & LOMB 01/11/2027 [id number] / [id number] / [id number] documented as of this encounter Procedures Procedure Name Priority Date/Time Associated Diagnosis Comments GLUCOSE METER, POINT OF CARE [facility] 10/11/2023 7:38 AM EDT PT INR Routine 10/11/2023 3:57 AM EDT EXTRA GREEN TOP WITH GEL Routine 10/11/2023 3:55 AM EDT EXTRA LAVENDER TOP Routine 10/11/2023 3: 55 AM EDT EXTRA TUBES Routine 10/11/2023 3:55 AM EDT GLUCOSE METER, POINT OF CARE [facility] 10/10/2023 9:09 PM EDT GLUCOSE METER, POINT OF CARE [facility] 10/10/2023 4:05 PM EDT GLUCOSE METER, POINT OF CARE [facility] 10/10/2023 11:13 AM EDT GLUCOSE METER, POINT OF CARE [facility] 10/10/2023 7:32 AM EDT BASIC METABOLIC PANEL Routine 10/10/2023 3:31 AM EDT PT INR Routine 10/10/2023 3:31 AM EDT CBC Routine 10/10/2023 3:31 AM EDT GLUCOSE METER, POINT OF CARE [facility] 10/09/2023 9:16 PM EDT GLUCOSE METER, POINT OF CARE [facility] 10/09/2023 4:23 PM EDT CULTURE, URINE, QUANTITATIVE Routine 10/09/2023 4:11 PM EDT MICROSCOPIC EXAM, URINE Routine 10/09/2023 4:11 PM EDT URINALYSIS, REFLEX TO MICROSCOPIC Routine 10/09/2023 4:11 PM EDT GLUCOSE METER, POINT OF CARE [facility] 10/09/2023 11:24 AM EDT GLUCOSE METER, POINT OF CARE [facility] 10/09/2023 7:26 AM EDT DIFFERENTIAL, AUTOMATED Routine 10/09/2023 4:11 AM EDT BASIC METABOLIC PANEL Routine 10/09/2023 4:11 AM EDT CBC Routine 10/09/2023 4:11 AM EDT PT INR Routine 10/09/2023 4:11 AM EDT CBC Routine 10/09/2023 4:11 AM EDT MAGNESIUM Routine 10/09/2023 4:11 AM EDT GLUCOSE METER, POINT OF CARE [facility] 10/08/2023 9:13 PM EDT GLUCOSE METER, POINT OF CARE [facility] 10/08/2023 4:31 PM EDT GLUCOSE METER, POINT OF CARE [facility] 10/08/2023 11:23 AM EDT GLUCOSE METER, POINT OF CARE [facility] 10/08/2023 8:03 AM EDT BASIC METABOLIC PANEL Routine 10/08/2023 3:54 AM EDT PT INR Routine 10/08/2023 3:54 AM EDT PHOSPHORUS Add-on 10/08/2023 3:54 AM EDT CBC Routine 10/08/2023 3:54 AM EDT MAGNESIUM Add-on 10/08/2023 3:54 AM EDT GLUCOSE METER, POINT OF CARE [facility] 10/07/2023 9:14 PM EDT GLUCOSE METER, POINT OF CARE [facility] 10/07/2023 5:16 PM EDT GLUCOSE METER, POINT OF CARE [facility] 10/07/2023 11:25 AM EDT GLUCOSE METER, POINT OF CARE [facility] 10/07/2023 7:36 AM EDT BASIC METABOLIC PANEL Routine 10/07/2023 5:02 AM EDT PT INR Routine 10/07/2023 5:02 AM EDT CBC Routine 10/07/2023 5:02 AM EDT PT INR Routine 10/07/2023 12:27 AM EDT LACTATE STAT 10/07/2023 12:27 AM EDT GLUCOSE METER, POINT OF CARE [facility] 10/07/2023 12:08 AM EDT LACTATE WITH REFLEX IF ABNORMAL STAT 10/06/2023 9:59 PM EDT LACTATE STAT 10/06/2023 9:59 PM EDT BLOOD GAS, VENOUS STAT 10/06/2023 9:[address] HEAD/BRAIN WO CONTRAST STAT 10/06/2023 8:52 PM EDT CULTURE, BLOOD Routine 10/06/2023 7:39 PM EDT LACTATE WITH REFLEX IF ABNORMAL STAT 10/06/2023 7:27 PM EDT DIFFERENTIAL, AUTOMATED STAT 10/06/2023 7:27 PM EDT TROPONIN T, HIGH SENSITIVITY STAT 10/06/2023 7:27 PM EDT HEPATIC FUNCTION PANEL STAT 10/06/2023 7:27 PM EDT BASIC METABOLIC PANEL STAT 10/06/2023 7:27 PM EDT CBC STAT 10/06/2023 7:27 PM EDT CULTURE, BLOOD Routine 10/06/2023 7:27 PM EDT CBC STAT 10/06/2023 7:27 PM EDT XR CHEST 1 VIEW STAT 10/06/2023 7:14 PM EDT HC ECG TRACING ONLY STAT 10/06/2023 6 :43 PM EDT Near syncope documented in this encounter Results * (ABNORMAL) GLUCOSE METER, POINT OF CARE (10/11/2023 7:38 AM EDT) Glucose Meter 125(H) 70 - 120 mg/dL 10/11/2023 7:46 AM EDT [facility] Blood Whole blood specimen / Unknown 10/11/2023 7:38 AM EDT 10/11/2023 7:46 AM EDT Scott Skinner DO LAB POINT OF CARE TEST DOCKED DEVICE UNSOLICITED RESULTS Performing Organization Address City/[facility] Co de Phone Number [facility] [address] [place] [phone] * (ABNORMAL) PT INR (10/11/2023 3:57 AM EDT) Prothrombin Time 25.5(H) 11.6 - 15.2 seconds 10/11/2023 4:[address] [facility] INR 2.3(H) 0.8 - 1.2 10/11/2023 4:[address] [facility] Blood Venous blood specimen / Unknown Venipuncture / Unknown 10/11/2023 3:57 AM EDT 10/11/2023 4:24 AM EDT Narrative LABORATORY [facility] - 10/11/2023 4:51 AM EDT Warfarin Therapy INR: 2.0-3.0 conventional anticoagulation INR: 2.5-3.5 high intensity anticoagulation Oralia Salazar [facility] LAB BLOOD ORDERAB LES LABORATORY [address] [address] * EXTRA GREEN TOP WITH GEL (10/11/2023 3:55 AM EDT) Blood Venous blood specimen / Unknown 10/11/2023 3:55 AM EDT 10/11/2023 4:26 AM EDT Scott Luongy DO LAB BLOOD ORDERAB LES Performing Organization Address City/[facility]/ZIP Co de Phone Number LABORATORY [address] [address] * EXTRA LAVENDER TOP (10/11/2023 3:55 AM EDT) Blood Venous blood specimen / Unknown 10/11/2023 3:55 AM EDT 10/11/2023 4:26 AM EDT Scott Luongy DO LAB BLOOD ORDERAB LES Performing Organization Address City/[facility] Co de Phone Number LABORATORY [address] [address] * (ABNORMAL) GLUCOSE METER, POINT OF CARE (10/10/2023 9:09 PM EDT) Glucose Meter 260(H) 70 - 120 mg/dL 10/10/2023 9:14 PM EDT [facility] Blood Whole blood specimen / Unknown 10/10/2023 9:09 PM EDT 10/10/2023 9:14 PM EDT [employer] DO LAB POINT OF CARE TEST DOCKED DEVICE UNSOLICITED RESULTS Performing Organization Address [facility] Co de Phone Number [facility] [address] [place] [phone] * (ABNORMAL) GLUCOSE METER, POINT OF CARE (10/10/2023 4:05 PM EDT) Glucose Meter 186(H) 70 - 120 mg/dL 10/10/2023 4:09 PM EDT [facility] Blood Whole blood specimen / Unknown 10/10/2023 4:05 PM EDT 10/10/2023 4:09 PM EDT Scott PanchoKakoona DO LAB POINT OF CARE TEST DOCKED DEVICE UNSOLICITED RESULTS Performing Organization Address City/[facility]/ZIP Co de Phone Number [facility] [address] [place] [address] * (ABNORMAL) GLUCOSE METER, POINT OF CARE (10/10/2023 11:13 AM EDT) Glucose Meter 238(H) 70 - 120 mg/dL 10/10/2023 11:18 AM EDT [facility] Blood Whole blood specimen / Unknown 10/10/2023 11:13 AM EDT 10/10/2023 11:18 AM EDT [employer] LAB POINT OF CARE TEST DOCKED DEVICE UNSOLICITED RESULTS Performing Organization Address City/[facility]/ZIP Co de Phone Number [facility] [address] [place] [address] * (ABNORMAL) GLUCOSE METER, POINT OF CARE (10/10/2023 7:32 AM EDT) Glucose Meter 141(H) 70 - 120 mg/dL 10/10/2023 8:00 AM EDT [facility] Blood Whole blood specimen / Unknown 10/10/2023 7:32 AM EDT 10/10/2023 8:00 AM EDT [employer] LAB POINT OF CARE TEST DOCKED DEVICE UNSOLICITED RESULTS Performing Organization Address City/[facility]/ZIP Co de Phone Number [facility] [address] [place] [address] * (ABNORMAL) PT INR (10/10/2023 3:31 AM EDT) Prothrombin Time 25.1(H) 11.6 - 15.2 seconds 10/10/2023 3:57 AM EDT LABORATORY [facility] INR 2.3(H) 0.8 - 1.2 10/10/2023 3:57 AM EDT LABORATORY [facility] Blood Venous blood specimen / Unknown Venipuncture / Unknown 10/10/2023 3:31 AM EDT 10/10/2023 3:41 AM EDT Narrative LABORATORY [facility] - 10/10/2023 3:57 AM EDT Warfarin Therapy INR: 2.0-3.0 conventional anticoagulation INR: 2.5-3.5 high intensity anticoagulation Oralia Salazar [facility] LAB BLOOD ORDERAB LES Performing Organization Address City/[facility]/ZIP Co de Phone Number LABORATORY [facility] [address] [place] [address] * (ABNORMAL) BASIC METABOLIC PANEL (10/10/2023 3:31 AM EDT) BUN 17 6 - 20 mg/dL 10/10/2023 4:08 AM EDT LABORATORY [facility] Creatinine 0.9 0.6 - 1.2 mg/dL 10/10/2023 4:08 AM EDT LABORATORY [facility] Estimated Glomerular Filtration Rate 90 >=60 mL/min 10/10/2023 4:08 AM EDT LABORATORY [facility] Comment:eGFR is calculated b ased on the CKD-EPI 2020 equation Sodium 142 135 - 146 mmol/L 10/10/2023 4:08 AM EDT LABORATORY [facility] Potassium 4.4 3.5 - 5.1 mmol/L 10/10/2023 4:08 AM EDT LABORATORY [facility] Chloride 107 98 - 107 mmol/L 10/10/2023 4:08 AM EDT LABORATORY [facility] CO2 25 22 - 32 mmol/L 10/10/2023 4:08 AM EDT LABORATORY [facility] Anion Gap 10 7 - 15 mmol/L 10/10/2023 4:08 AM EDT LABORATORY [facility] Glucose 160(H) 70 - 120 mg/dL 10/10/2023 4:08 AM EDT LABORATORY [facility] Calcium 8.9 8.4 - 10.2 mg/dL 10/10/2023 4:08 AM EDT LABORATORY [facility] Blood Venous blood specimen / Unknown Venipuncture / Unknown 10/10/2023 3:31 AM EDT 10/10/2023 3:41 AM EDT Liam Barajas MD LAB BLOOD ORDERABLES Performing Organization Address City/[facility]/ZIP Co de Phone Number LABORATORY [facility] [address] [place] [address] * (ABNORMAL) CBC (10/10/2023 3:31 AM EDT) WBC 5.57 4.00 - 10.80 K/uL 10/10/2023 3:[address] [facility] RBC 3.52 4.50 - 5.25 M/uL 10/10/2023 3:[address] [facility] HGB 10.9(L) 14.0 - 16.8 g/dL 10/10/2023 3:[address] [facility] HCT 33.6(L) 40.0 - 48.4 % 10/10/2023 3:[address] [facility] MCV 95.5 82.0 - 99.5 fL 10/10/2023 3:[address] [facility] MCH 31.0 27.0 - 34.0 pg 10/10/2023 3:[address] [facility] MCHC 32.4 32.0 - 36.0 g/dL 10/10/2023 3:[address] [facility] RDW 13.5 11.5 - 15.5 % 10/10/2023 3:[address] [facility] PLT 197 140 - 400 K/uL 10/10/2023 3:[address] [facility] MPV 8.8 6.6 - 11.1 fL 10/10/2023 3:[address] [facility] nRBCs 0 <=0 /100 WBCs 10/10/2023 3:[address] [facility] Blood Venous blood specimen / Unknown Venipuncture / Unknown 10/10/2023 3:31 AM EDT 10/10/2023 3:41 AM EDT Liam Barajas MD LAB BLOOD ORDERABLES LABORATORY [facility] [address] [place] [address] * (ABNORMAL) GLUCOSE METER, POINT OF CARE (10/09/2023 9:16 PM EDT) Glucose Meter 187(H) 70 - 120 mg/dL 10/09/2023 11:30 PM EDT [facility] Blood Whole blood specimen / Unknown 10/09/2023 9:16 PM EDT 10/09/2023 11:30 PM EDT Liam Barajas MD LAB POINT OF CARE TE ST DOCKED DEVICE UNSOLICITED RESULTS Performing Organization Address [facility] Co de Phone Number [facility] [address] [place] [address] * (ABNORMAL) GLUCOSE METER, POINT OF CARE (10/09/2023 4:23 PM EDT) Glucose Meter 180(H) 70 - 120 mg/dL 10/09/2023 4:25 PM EDT [facility] Blood Whole blood specimen / Unknown 10/09/2023 4:23 PM EDT 10/09/2023 4:25 PM EDT Liam Barajas MD LAB POINT OF CARE TE ST DOCKED DEVICE UNSOLICITED RESULTS Performing Organization Address [facility] Phone Number [facility] [address] [place] [address] * (ABNORMAL) MICROSCOPIC EXAM, URINE (10/09/2023 4:11 PM EDT) RBC, Urine 0-2 0 - 2 /HPF 10/09/2023 4:44 PM EDT LABORATORY GL WBC, Urine 10-19(A) 0 - 2 /HPF 10/09/2023 4:44 PM EDT LABORATORY GL Bacteria, Urine 0-25 0 - 25 /HPF 10/09/2023 4:[address] [facility] Urine Urine specimen obtained by clean catch procedure / Unknown Non-blood Collection / Unknown 10/09/2023 4:11 PM EDT 10/09/2023 4:15 PM EDT Liam Barajas MD LAB URINE ORDERABLES Performing Organization Address [facility] Co de Phone Number LABORATORY GL [address] [place] [address] * CULTURE, URINE, QUANTITATIVE (10/09/2023 4:11 PM EDT) Culture Growth No significant growth 10/10/2023 3:34 PM EDT [facility] [place] Urine specimen obtained by clean catch procedure / Unknown Non-blood Collection / Unknown 10/09/2023 4:11 PM EDT 10/09/2023 4:15 PM EDT Liam Barajas MD LAB MICRO - GENERAL ORDERABLES [facility] [address] [place] [address] * (ABNORMAL) URINALYSIS, REFLEX TO MICROSCOPIC (10/09/2023 4:11 PM EDT) Color, Urine Yellow Light Yellow, Yellow, Dark Yellow 10/09/2023 4:43 PM EDT LABORATORY [facility] Clarity, Urine Clear Clear 10/09/2023 4:43 PM EDT LABORATORY [facility] Glucose, Urine 100(A) Negative mg/dL 10/09/2023 4:43 PM EDT LABORATORY [facility] Bilirubin, Urine Negative Negative 10/09/2023 4:43 PM EDT LABORATORY [facility] Ketone, Urine Negative Negative mg/dL 10/09/2023 4:43 PM EDT LABORATORY [facility] Specific [place], Urine 1.014 1.003 - 1.030 10/09/2023 4:43 PM EDT LABORATORY [facility] Blood, Urine Negative Negative 10/09/2023 4:43 PM EDT LABORATORY [facility] pH, Urine 5.5 5.0 - 7.5 Units 10/09/2023 4:43 PM EDT LABORATORY [facility] Protein, Urine Negative Negative mg/dL 10/09/2023 4:43 PM EDT LABORATORY [facility] Urobilinogen, Urine 0.2 0.2, 1.0 mg/dL 10/09/2023 4:43 PM EDT LABORATORY [facility] Nitrite, Urine Negative Negative 10/09/2023 4:43 PM EDT LABORATORY [facility] Esterase, Urine Moderate(A) Negative 10/09/2023 4:43 PM EDT LABORATORY GL Urine Urine specimen obtained by clean catch procedure / Unknown Non-blood Collection / Unknown 10/09/2023 4:11 PM EDT 10/09/2023 4:15 PM EDT Liam Barajas MD LAB URINE ORDERABLES Performing Organization Address City/[facility] Co de Phone Number LABORATORY GL [address] [place] [address] * (ABNORMAL) GLUCOSE METER, POINT OF CARE (10/09/2023 11:24 AM EDT) Glucose Meter 240(H) 70 - 120 mg/dL 10/09/2023 11:37 AM EDT [facility] Blood Whole blood specimen / Unknown 10/09/2023 11:24 AM EDT 10/09/2023 11:37 AM EDT Liam Barajas MD LAB POINT OF CARE TE ST DOCKED DEVICE UNSOLICITED RESULTS Performing Organization Address [facility] Phone Number [facility] [address] [place] [phone] * (ABNORMAL) GLUCOSE METER, POINT OF CARE (10/09/2023 7:26 AM EDT) Glucose Meter 137(H) 70 - 120 mg/dL 10/09/2023 7:30 AM EDT [facility] Blood Whole blood specimen / Unknown 10/09/2023 7:26 AM EDT 10/09/2023 7:30 AM EDT Liam Barajas MD LAB POINT OF CARE TE ST DOCKED DEVICE UNSOLICITED RESULTS Performing Organization Address [facility] Co de Phone Number [facility] [address] [place] [phone] * DIFFERENTIAL, AUTOMATED (10/09/2023 4:11 AM EDT) WBC 6.03 4.00 - 10.80 K/uL 10/09/2023 4:[address] [facility] Neutrophils % 54.2 40.0 - 75.0 % 10/09/2023 4:[address] [facility] Lymphocytes % 31.8 18.0 - 42.0 % 10/09/2023 4:24 AM EDT LABORATORY GL Monocytes % 9.5 1.0 - 11.0 % 10/09/2023 4:24 AM EDT LABORATORY GL Eosinophils % 3.0 0.0 - 6.0 % 10/09/2023 4:24 AM EDT LABORATORY GL Basophils % 1.0 0.0 - 2.0 % 10/09/2023 4:24 AM EDT LABORATORY GL Immature Granulocytes % 0.5 0.0 - 2.0 % 10/09/2023 4:24 AM EDT LABORATORY GL Absolute Neutrophils 3.27 1.80 - 7.70 K/uL 10/09/2023 4:[address] [facility] Absolute Lymphocytes 1.92 1.00 - 4.80 K/ul 10/09/2023 4:[address] [facility] Absolute Monocytes 0.57 0.00 - 1.10 K/uL 10/09/2023 4:[address] [facility] Absolute Eosinophils 0.18 0.00 - 0.70 K/uL 10/09/2023 4:[address] [facility] Absolute Basophils 0.06 0.00 - 0.20 K/uL 10/09/2023 4:[address] [facility] Absolute Immature Granulocytes 0.03 0.00 - 0.20 K/uL 10/09/2023 4:[address] [facility] Blood Venous blood specimen / Unknown Venipuncture / Unknown 10/09/2023 4:11 AM EDT 10/09/2023 4:21 AM EDT Gloria Hi MD LAB BLOOD ORDERABL ES LABORATORY [address] [address] * (ABNORMAL) CBC (10/09/2023 4:11 AM EDT) WBC 6.03 4.00 - 10.80 K/uL 10/09/2023 4:24 AM EDT LABORATORY GL RBC 3.51 4.50 - 5.25 M/uL 10/09/2023 4:24 AM EDT LABORATORY GL HGB 10.7(L) 14.0 - 16.8 g/dL 10/09/2023 4:24 AM EDT LABORATORY GL HCT 33.5(L) 40.0 - 48.4 % 10/09/2023 4:[address] [facility] MCV 95.4 82.0 - 99.5 fL 10/09/2023 4:[address] [facility] MCH 30.5 27.0 - 34.0 pg 10/09/2023 4:[address] [facility] MCHC 31.9 32.0 - 36.0 g/dL 10/09/2023 4:[address] [facility] RDW 13.7 11.5 - 15.5 % 10/09/2023 4:[address] [facility] PLT 201 140 - 400 K/uL 10/09/2023 4:[address] [facility] MPV 9.0 6.6 - 11.1 fL 10/09/2023 4:[address] [facility] nRBCs 0 <=0 /100 WBCs 10/09/2023 4:[address] [facility] Blood Venous blood specimen / Unknown Venipuncture / Unknown 10/09/2023 4:11 AM EDT 10/09/2023 4:21 AM EDT Gloria Hi MD LAB BLOOD ORDERABL ES LABORATORY [address] [address] * (ABNORMAL) PT INR (10/09/2023 4:11 AM EDT) Prothrombin Time 23.5(H) 11.6 - 15.2 seconds 10/09/2023 4:39 AM EDT LABORATORY GL INR 2.1(H) 0.8 - 1.2 10/09/2023 4:[address] [facility] Blood Venous blood specimen / Unknown Venipuncture / Unknown 10/09/2023 4:11 AM EDT 10/09/2023 4:21 AM EDT Narrative LABORATORY [facility] - 10/09/2023 4:39 AM EDT Warfarin Therapy INR: 2.0-3.0 conventional anticoagulation INR: 2.5-3.5 high intensity anticoagulation Oralia [facility] LAB BLOOD ORDERAB LES Performing Organization Address [facility] de Phone Number LABORATORY [facility] [address] [place], [place] [phone] * (ABNORMAL) MAGNESIUM (10/09/2023 4:11 AM EDT) Magnesium 1.4(L) 1.5 - 2.6 mg/dL 10/09/2023 4:46 AM EDT LABORATORY GL Blood Venous blood specimen / Unknown Venipuncture / Unknown 10/09/2023 4:11 AM EDT 10/09/2023 4:21 AM EDT Gloria Hi MD LAB BLOOD ORDERABL ES Performing Organization Address [facility] de Phone Number LABORATORY [facility] [address] [place] [address] * (ABNORMAL) BASIC METABOLIC PANEL (10/09/2023 4:11 AM EDT) BUN 17 6 - 20 mg/dL 10/09/2023 4:46 AM EDT LABORATORY [facility] Creatinine 1.0 0.6 - 1.2 mg/dL 10/09/2023 4:46 AM EDT LABORATORY [facility] Estimated Glomerular Filtration Rate 79 >=60 mL/min 10/09/2023 4:46 AM EDT LABORATORY [facility] Comment:eGFR is calculated b ased on the CKD-EPI 2020 equation Sodium 143 135 - 146 mmol/L 10/09/2023 4:46 AM EDT LABORATORY [facility] Potassium 4.8 3.5 - 5.1 mmol/L 10/09/2023 4:46 AM EDT LABORATORY [facility] Chloride 108(H) 98 - 107 mmol/L 10/09/2023 4:46 AM EDT LABORATORY [facility] CO2 26 22 - 32 mmol/L 10/09/2023 4:46 AM EDT LABORATORY [facility] Anion Gap 9 7 - 15 mmol/L 10/09/2023 4:46 AM EDT LABORATORY [facility] Glucose 156(H) 70 - 120 mg/dL 10/09/2023 4:46 AM EDT LABORATORY [facility] Calcium 8.9 8.4 - 10.2 mg/dL 10/09/2023 4:46 AM EDT LABORATORY [facility] Blood Venous blood specimen / Unknown Venipuncture / Unknown 10/09/2023 4:11 AM EDT 10/09/2023 4:21 AM EDT Gloria Hi MD LAB BLOOD ORDERABL ES Performing Organization Address City/[facility]/ZIP Co de Phone Number LABORATORY [facility] [address] [place] [phone] * (ABNORMAL) GLUCOSE METER, POINT OF CARE (10/08/2023 9:13 PM EDT) Glucose Meter 147(H) 70 - 120 mg/dL 10/08/2023 9:18 PM EDT [facility] Blood Whole blood specimen / Unknown 10/08/2023 9:13 PM EDT 10/08/2023 9:18 PM EDT Liam Barajas MD LAB POINT OF CARE TE ST DOCKED DEVICE UNSOLICITED RESULTS Performing Organization Address [facility] Co de Phone Number [facility] [address] [place] [phone] * (ABNORMAL) GLUCOSE METER, POINT OF CARE (10/08/2023 4:31 PM EDT) Glucose Meter 189(H) 70 - 120 mg/dL 10/08/2023 4:37 PM EDT [facility] Blood Whole blood specimen / Unknown 10/08/2023 4:31 PM EDT 10/08/2023 4:37 PM EDT Liam Barajas MD LAB POINT OF CARE TE ST DOCKED DEVICE UNSOLICITED RESULTS Performing Organization Address City/[facility]/ZIP Co de Phone Number [facility] [address] [place] [address] * (ABNORMAL) GLUCOSE METER, POINT OF CARE (10/08/2023 11:23 AM EDT) Glucose Meter 215(H) 70 - 120 mg/dL 10/08/2023 11:48 AM EDT [facility] Blood Whole blood specimen / Unknown 10/08/2023 11:23 AM EDT 10/08/2023 11:47 AM EDT Liam Barajas MD LAB POINT OF CARE TE ST DOCKED DEVICE UNSOLICITED RESULTS Performing Organization Address City/[facility]/ZIP Co de Phone Number [facility] [address] [place] [address] * (ABNORMAL) GLUCOSE METER, POINT OF CARE (10/08/2023 8:03 AM EDT) Glucose Meter 147(H) 70 - 120 mg/dL 10/08/2023 8:10 AM EDT [facility] Blood Whole blood specimen / Unknown 10/08/2023 8:03 AM EDT 10/08/2023 8:10 AM EDT Liam Barajas MD LAB POINT OF CARE TE ST DOCKED DEVICE UNSOLICITED RESULTS Performing Organization Address City/[facility]/ZIP Co de Phone Number [facility] [address] [place] [address] * PHOSPHORUS (10/08/2023 3:54 AM EDT) Phosphorus 4.2 2.5 - 4.8 mg/dL 10/08/2023 5:[address] [facility] Blood Venous blood specimen / Unknown Venipuncture / Unknown 10/08/2023 3:54 AM EDT 10/08/2023 4:09 AM EDT Orlando Armando PA-C LAB BLOOD ORDERABLES Performing Organization Address City/[facility]/ZIP Co de Phone Number LABORATORY GL [address] [place], [place] [phone] * (ABNORMAL) MAGNESIUM (10/08/2023 3:54 AM EDT) Magnesium 1.4(L) 1.5 - 2.6 mg/dL 10/08/2023 5:[address] [facility] Blood Venous blood specimen / Unknown Venipuncture / Unknown 10/08/2023 3:54 AM EDT 10/08/2023 4:09 AM EDT Orlando Armando PA-C LAB BLOOD ORDERABLES Performing Organization Address [facility] de Phone Number LABORATORY [address] [address] * (ABNORMAL) PT INR (10/08/2023 3:54 AM EDT) Prothrombin Time 21.3(H) 11.6 - 15.2 seconds 10/08/2023 4:[address] [facility] INR 1.8(H) 0.8 - 1.2 10/08/2023 4:[address] [facility] Blood Venous blood specimen / Unknown Venipuncture / Unknown 10/08/2023 3:54 AM EDT 10/08/2023 4:09 AM EDT Narrative LABORATORY [facility] - 10/08/2023 4:25 AM EDT Warfarin Therapy INR: 2.0-3.0 conventional anticoagulation INR: 2.5-3.5 high intensity anticoagulation Oralia Salazar [facility] LAB BLOOD ORDERAB LES Performing Organization Address City/[facility]/ZIP Co de Phone Number LABORATORY [address] [address] * (ABNORMAL) BASIC METABOLIC PANEL (10/08/2023 3:54 AM EDT) BUN 17 6 - 20 mg/dL 10/08/2023 4:[address] [facility] Creatinine 0.9 0.6 - 1.2 mg/dL 10/08/2023 4:31 AM EDT LABORATORY [facility] Estimated Glomerular Filtration Rate 88 >=60 mL/min 10/08/2023 4:31 AM EDT LABORATORY [facility] Comment:eGFR is calculated b ased on the CKD-EPI 2020 equation Sodium 141 135 - 146 mmol/L 10/08/2023 4:31 AM EDT LABORATORY [facility] Potassium 3.9 3.5 - 5.1 mmol/L 10/08/2023 4:31 AM EDT LABORATORY [facility] Chloride 107 98 - 107 mmol/L 10/08/2023 4:31 AM EDT [facility] CO2 23 22 - 32 mmol/L 10/08/2023 4:31 AM EDT [facility] Anion Gap 11 7 - 15 mmol/L 10/08/2023 4:31 AM EDT [facility] Glucose 139(H) 70 - 120 mg/dL 10/08/2023 4:31 AM EDT [facility] Calcium 8.3(L) 8.4 - 10.2 mg/dL 10/08/2023 4:31 AM EDT LABORATORY GL Blood Venous blood specimen / Unknown Venipuncture / Unknown 10/08/2023 3:54 AM EDT 10/08/2023 4:09 AM EDT Liam Barajas MD LAB BLOOD ORDERABLES Performing Organization Address City/State/[facility] Co de Phone Number LABORATORY [address] [address] * (ABNORMAL) CBC (10/08/2023 3:54 AM EDT) WBC 6.43 4.00 - 10.80 K/uL 10/08/2023 4:11 AM EDT [facility] RBC 3.43 4.50 - 5.25 M/uL 10/08/2023 4:11 AM EDT [facility] HGB 10.7(L) 14.0 - 16.8 g/dL 10/08/2023 4:11 AM EDT [facility] HCT 32.9(L) 40.0 - 48.4 % 10/08/2023 4:11 AM EDT [facility] MCV 95.9 82.0 - 99.5 fL 10/08/2023 4:11 AM EDT [facility] MCH 31.2 27.0 - 34.0 pg 10/08/2023 4:[address] [facility] [place] MCHC 32.5 32.0 - 36.0 g/dL 10/08/2023 4:[address] [facility] [place] RDW 13.9 11.5 - 15.5 % 10/08/2023 4:[address] [facility] [place] PLT 199 140 - 400 K/uL 10/08/2023 4:[address] [facility] [place] MPV 9.0 6.6 - 11.1 fL 10/08/2023 4:[address] [facility] [place] nRBCs 0 <=0 /100 WBCs 10/08/2023 4:[address] [facility] [place] Blood Venous blood specimen / Unknown Venipuncture / Unknown 10/08/2023 3:54 AM EDT 10/08/2023 4:09 AM EDT Liam Barajas MD LAB BLOOD ORDERABLES LABORATORY [address] [address] * (ABNORMAL) GLUCOSE METER, POINT OF CARE (10/07/2023 9:14 PM EDT) Glucose Meter 161(H) 70 - 120 mg/dL 10/07/2023 9:19 PM EDT [facility] Blood Whole blood specimen / Unknown 10/07/2023 9:14 PM EDT 10/07/2023 9:19 PM EDT Liam Barajas MD LAB POINT OF CARE TE ST DOCKED DEVICE UNSOLICITED RESULTS [facility] LABORATORY [address] [place] [id number] * (ABNORMAL) GLUCOSE METER, POINT OF CARE (10/07/2023 5:16 PM EDT) Glucose Meter 185(H) 70 - 120 mg/dL 10/07/2023 5:19 PM EDT [facility]ORY Blood Whole blood specimen / Unknown 10/07/2023 5:16 PM EDT 10/07/2023 5:18 PM EDT Liam Barajas MD LAB POINT OF CARE TE ST DOCKED DEVICE UNSOLICITED RESULTS Performing Organization Address [facility] Co de Phone Number [facility] [address] [place] [address] * (ABNORMAL) GLUCOSE METER, POINT OF CARE (10/07/2023 11:25 AM EDT) Glucose Meter 225(H) 70 - 120 mg/dL 10/07/2023 11:42 AM EDT [facility] Blood Whole blood specimen / Unknown 10/07/2023 11:25 AM EDT 10/07/2023 11:42 AM EDT Liam Barajas MD LAB POINT OF CARE TE ST DOCKED DEVICE UNSOLICITED RESULTS Performing Organization Address [facility] Phone Number [facility] [address] [place] [address] * (ABNORMAL) GLUCOSE METER, POINT OF CARE (10/07/2023 7:36 AM EDT) Glucose Meter 129(H) 70 - 120 mg/dL 10/07/2023 7:57 AM EDT [facility] Blood Whole blood specimen / Unknown 10/07/2023 7:36 AM EDT 10/07/2023 7:56 AM EDT Liam Barajas MD LAB POINT OF CARE TE ST DOCKED DEVICE UNSOLICITED RESULTS Performing Organization Address [facility] Phone Number [facility] [address] [place] [address] * (ABNORMAL) PT INR (10/07/2023 5:02 AM EDT) Prothrombin Time 18.3(H) 11.6 - 15.2 seconds 10/07/2023 5:56 AM EDT LABORATORY GL[facility] INR 1.5(H) 0.8 - 1.2 10/07/2023 5:56 AM EDT LABORATORY [facility] Blood Venous blood specimen / Unknown Venipuncture / Unknown 10/07/2023 5:02 AM EDT 10/07/2023 5:28 AM EDT Narrative LABORATORY GL[facility] - 10/07/2023 5:56 AM EDT Warfarin Therapy INR: 2.0-3.0 conventional anticoagulation INR: 2.5-3.5 high intensity anticoagulation Oralia Spicer [facility] LAB BLOOD ORDERAB LES LABORATORY GL [address] [place] [address] * (ABNORMAL) BASIC METABOLIC PANEL (10/07/2023 5:02 AM EDT) BUN 22(H) 6 - 20 mg/dL 10/07/2023 5:49 AM EDT LABORATORY GL[facility] Creatinine 1.0 0.6 - 1.2 mg/dL 10/07/2023 5:49 AM EDT LABORATORY GL[facility] Estimated Glomerular Filtration Rate 79 >=60 mL/min 10/07/2023 5:49 AM EDT LABORATORY GLH Comment:eGFR is calculated b ased on the CKD-EPI 2020 equation Sodium 140 135 - 146 mmol/L 10/07/2023 5:49 AM EDT LABORATORY GL[facility] Potassium 3.8 3.5 - 5.1 mmol/L 10/07/2023 5:49 AM EDT LABORATORY GL[facility] Chloride 106 98 - 107 mmol/L 10/07/2023 5:49 AM EDT LABORATORY GLH CO2 23 22 - 32 mmol/L 10/07/2023 5:49 AM EDT LABORATORY GL[facility] Anion Gap 11 7 - 15 mmol/L 10/07/2023 5:49 AM EDT LABORATORY GL[facility] Glucose 144(H) 70 - 120 mg/dL 10/07/2023 5:49 AM EDT LABORATORY GL[facility] Calcium 8.4 8.4 - 10.2 mg/dL 10/07/2023 5:49 AM EDT LABORATORY GL[facility] Blood Venous blood specimen / Unknown Venipuncture / Unknown 10/07/2023 5:02 AM EDT 10/07/2023 5:28 AM EDT Orlando Armando PA-C LAB BLOOD ORDERABLES LABORATORY [address] [address] * (ABNORMAL) CBC (10/07/2023 5:02 AM EDT) WBC 10.10 4.00 - 10.80 K/uL 10/07/2023 5:[address] [facility] RBC 3.54 4.50 - 5.25 M/uL 10/07/2023 5:[address] [facility] HGB 11.1(L) 14.0 - 16.8 g/dL 10/07/2023 5:[address] [facility] HCT 33.6(L) 40.0 - 48.4 % 10/07/2023 5:[address] [facility] MCV 94.9 82.0 - 99.5 fL 10/07/2023 5:[address] [facility] MCH 31.4 27.0 - 34.0 pg 10/07/2023 5:[address] [facility] MCHC 33.0 32.0 - 36.0 g/dL 10/07/2023 5:[address] [facility] RDW 13.9 11.5 - 15.5 % 10/07/2023 5:[address] [facility] PLT 218 140 - 400 K/uL 10/07/2023 5:[address] [facility] MPV 8.8 6.6 - 11.1 fL 10/07/2023 5:[address] [facility] nRBCs 0 <=0 /100 WBCs 10/07/2023 5:[address] [facility] Blood Venous blood specimen / Unknown Venipuncture / Unknown 10/07/2023 5:02 AM EDT 10/07/2023 5:28 AM EDT Orlando Armando PA-C LAB BLOOD ORDERABLES LABORATORY [address] [address] * (ABNORMAL) PT INR (10/07/2023 12:27 AM EDT) Prothrombin Time 18.4(H) 11.6 - 15.2 seconds 10/07/2023 12:[address] [facility] INR 1.5(H) 0.8 - 1.2 10/07/2023 12:[address] [facility] Blood Venous blood specimen / Unknown Venipuncture / Unknown 10/07/2023 12:27 AM EDT 10/07/2023 12:30 AM EDT Narrative LABORATORY [facility] - 10/07/2023 12:45 AM EDT Warfarin Therapy INR: 2.0-3.0 conventional anticoagulation INR: 2.5-3.5 high intensity anticoagulation Oralia Salazar [facility] LAB BLOOD ORDERAB LES LABORATORY [address] [address] * LACTATE (10/07/2023 12:27 AM EDT) Lactate 1.7 0.4 - 2.0 mmol/L 10/07/2023 12:[address] [facility] Blood Venous blood specimen / Unknown Venipuncture / Unknown 10/07/2023 12:27 AM EDT 10/07/2023 12:30 AM EDT Orlando Armando PA-C LAB BLOOD ORDERABLES LABORATORY [address] [address] * (ABNORMAL) GLUCOSE METER, POINT OF CARE (10/07/2023 12:08 AM EDT) Glucose Meter 176(H) 70 - 120 mg/dL 10/07/2023 12:15 AM EDT [facility] Blood Whole blood specimen / Unknown 10/07/2023 12:08 AM EDT 10/07/2023 12:15 AM EDT Gloria Hi MD LAB POINT OF CARE TEST DOCKED DEVICE UNSOLICITED RESULTS Performing Organization Address City/[facility]/ZIP Co de Phone Number [facility] [address] [place] [address] * (ABNORMAL) LACTATE WITH REFLEX IF ABNORMAL (10/06/2023 9:59 PM EDT) Lactate 3.6(H) 0.4 - 2.0 mmol/L 10/06/2023 10:17 PM EDT LABORATORY GL Blood Venous blood specimen / Unknown Venipuncture / Unknown 10/06/2023 9:59 PM EDT 10/06/2023 10:03 PM EDT Mamadou Clarek MD LAB BLOOD ORDERABLES Performing Organization Address City/[facility] Co de Phone Number LABORATORY [address] [phone] * (ABNORMAL) LACTATE (10/06/2023 9:59 PM EDT) Lactate 3.6(H) 0.4 - 2.0 mmol/L 10/06/2023 10:17 PM EDT LABORATORY GL Blood Venous blood specimen / Unknown Venipuncture / Unknown 10/06/2023 9:59 PM EDT 10/06/2023 10:03 PM EDT Mamadou Clakre MD LAB BLOOD ORDERABLES Performing Organization Address City/[facility] Co de Phone Number LABORATORY [address] [address] * (ABNORMAL) BLOOD GAS, VENOUS (10/06/2023 9:01 PM EDT) Temperature 37.0 C 10/06/2023 9:10 PM EDT LABORATORY GL pH, Venous 7.399 7.320 - 7.430 units 10/06/2023 9:10 PM EDT LABORATORY GLH pCO2, Venous 34.2(L) 40.0 - 60.0 mmHg 10/06/2023 9:10 PM EDT LABORATORY GLH pO2, Venous 49.5 25.0 - 50.0 mmHg 10/06/2023 9:10 PM EDT LABORATORY GLH Base Excess, Venous -3.0(L) -2.0 - 2.0 mmol/L 10/06/2023 9:10 PM EDT LABORATORY GLH HGB 11.3(L) 14.0 - 16.8 g/dL 10/06/2023 9:10 PM EDT LABORATORY GLH Oxyhemoglobin, Venous 80.8 40.0 - 85.0 % total Hgb 10/06/2023 9:10 PM EDT LABORATORY GLH Carboxyhemoglobi n, Whole Blood 1.3 <=1.5 % total Hgb 10/06/2023 9:10 PM EDT LABORATORY GLH Comment:Smokers: 0-9.0 % Methemoglobin, Whole Blood 0.5 <=1.5 % total Hgb 10/06/2023 9:10 PM EDT LABORATORY GL[facility] Reduced Hemoglobin, Venous 17.4 % total Hgb 10/06/2023 9:10 PM EDT LABORATORY GLH O2 Content, Venous 12.9 7.0 - 18.0 %vol 10/06/2023 9:10 PM EDT LABORATORY GLH Bicarbonate, Whole Blood 20.7(L) 23.0 - 31.0 mmol/L 10/06/2023 9:10 PM EDT LABORATORY GLH Blood Venous blood specimen / Unknown Venipuncture / Unknown 10/06/2023 9:01 PM EDT 10/06/2023 9:05 PM EDT Mamadou Clarke MD LAB BLOOD ORDERABLES LABORATORY GL [address] [place] [address] * CT HEAD/BRAIN WO CONTRAST (10/06/2023 8:52 PM EDT) Anatomical Region Laterality Modality Head Computed Tomogra phy 10/06/2023 8:43 PM EDT Impressions 10/06/2023 9:46 PM EDT IMPRESSION: No acute intracranial abnormality. 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 Radiation optimization: All CT scans at this facility use at least one of these dose optimization techniques: automated exposure control; mA and/or kV adjustment per patient size (includes targeted exams where dose is matched to clinical indication); or iterative reconstruction. COMPARISON: CT HEAD/BRAIN WO CONTRAST 09/28/2023 1:15 PM FINDINGS: Brain: Normal. No hemorrhage. Mild periventricular white matter changes. Moderate ventriculomegaly. Paranasal sinuses: Visualized sinuses are unremarkable. No fluid levels. Mastoid air cells: Visualized mastoid air cells are well aerated. Bones: Unremarkable. No acute fracture. Soft tissues: Unremarkable. 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 Radiation optimization: All CT scans at this facility use at least one ofthese dose optimization techniques: automated exposure control; mA and/or kV adjustment per patient size (includes targeted exams where dose is matchedto clinical indication); or iterative reconstruction. COMPARISON: CT HEAD/BRAIN WO CONTRAST 09/28/2023 1:15 PM FINDINGS: Brain: Normal. No hemorrhage. Mild periventricular white matter changes. Moderate ventriculomegaly. Paranasal sinuses: Visualized sinuses are unremarkable. No fluid levels. Mastoid air cells: Visualized mastoid air cells are well aerated. Bones: Unremarkable. No acute fracture. Soft tissues: Unremarkable. IMPRESSION IMPRESSION: No acute intracranial abnormality. THIS DOCUMENT HAS BEEN ELECTRONICALLY SIGNED BY SANDIP JOHNSON MD Mamadou Clarke MD RAD CT * CULTURE, BLOOD (10/06/2023 7:39 PM EDT) [facility] Blood Culture Growth No growth 10/11/2023 8:[address] [facility] Blood Venous blood specimen / Unknown Venipuncture / Unknown 10/06/2023 7:39 PM EDT 10/06/2023 7:42 PM EDT Mamadou Clarke MD LAB MICRO - GENERAL ORDERABLES LABORATORY [address] [address] * DIFFERENTIAL, AUTOMATED (10/06/2023 7:27 PM EDT) [facility] WBC 8.75 4.00 - 10.80 K/uL 10/06/2023 7:[address] [facility] Neutrophils % 72.9 40.0 - 75.0 % 10/06/2023 7:37 PM EDT LABORATORY GL Lymphocytes % 18.9 18.0 - 42.0 % 10/06/2023 7:37 PM EDT LABORATORY GL Monocytes % 6.3 1.0 - 11.0 % 10/06/2023 7:37 PM EDT LABORATORY GLH Eosinophils % 0.9 0.0 - 6.0 % 10/06/2023 7:37 PM EDT LABORATORY GLH Basophils % 0.5 0.0 - 2.0 % 10/06/2023 7:37 PM EDT LABORATORY GL Immature Granulocytes % 0.5 0.0 - 2.0 % 10/06/2023 7:37 PM EDT LABORATORY GL Absolute Neutrophils 6.39 1.80 - 7.70 K/uL 10/06/2023 7:37 PM EDT LABORATORY GL Absolute Lymphocytes 1.65 1.00 - 4.80 K/ul 10/06/2023 7:37 PM EDT LABORATORY GL Absolute Monocytes 0.55 0.00 - 1.10 K/uL 10/06/2023 7:37 PM EDT LABORATORY GL Absolute Eosinophils 0.08 0.00 - 0.70 K/uL 10/06/2023 7:[address] [facility] Absolute Basophils 0.04 0.00 - 0.20 K/uL 10/06/2023 7:37 PM EDT LABORATORY GL Absolute Immature Granulocytes 0.04 0.00 - 0.20 K/uL 10/06/2023 7:[address] [facility] Blood Venous blood specimen / Unknown Venipuncture / Unknown 10/06/2023 7:27 PM EDT 10/06/2023 7:32 PM EDT Mamadou Clarke MD LAB BLOOD ORDERABLES LABORATORY [address] [address] * (ABNORMAL) CBC (10/06/2023 7:27 PM EDT) WBC 8.75 4.00 - 10.80 K/uL 10/06/2023 7:[address] [facility] RBC 3.91 4.50 - 5.25 M/uL 10/06/2023 7:[address] [facility] HGB 12.4(L) 14.0 - 16.8 g/dL 10/06/2023 7:[address] [facility] HCT 37.8(L) 40.0 - 48.4 % 10/06/2023 7:[address] [facility] MCV 96.7 82.0 - 99.5 fL 10/06/2023 7:[address] [facility] MCH 31.7 27.0 - 34.0 pg 10/06/2023 7:[address] [facility] MCHC 32.8 32.0 - 36.0 g/dL 10/06/2023 7:[address] [facility] RDW 13.9 11.5 - 15.5 % 10/06/2023 7:[address] [facility] PLT 251 140 - 400 K/uL 10/06/2023 7:[address] [facility] MPV 8.8 6.6 - 11.1 fL 10/06/2023 7:[address] [facility] nRBCs 0 <=0 /100 WBCs 10/06/2023 7:[address] [facility] Blood Venous blood specimen / Unknown Venipuncture / Unknown 10/06/2023 7:27 PM EDT 10/06/2023 7:32 PM EDT Mamadou Clarke MD LAB BLOOD ORDERABLES Performing Organization Address City/[facility]/ZIP Co de Phone Number LABORATORY [address] [address] * (ABNORMAL) LACTATE WITH REFLEX IF ABNORMAL (10/06/2023 7:27 PM EDT) [facility] Lactate 5.5(HH) 0.4 - 2.0 mmol/L 10/06/2023 7:[address] [facility] Blood Venous blood specimen / Unknown Venipuncture / Unknown 10/06/2023 7:27 PM EDT 10/06/2023 7:32 PM EDT Mamadou Clarke MD LAB BLOOD ORDERABLES Performing Organization Address [facility] Co de Phone Number LABORATORY [address] [address] * CULTURE, BLOOD (10/06/2023 7:27 PM EDT) [facility] Blood Culture Growth No growth 10/11/2023 8:[address] [facility] Blood Venous blood specimen / Unknown Venipuncture / Unknown 10/06/2023 7:27 PM EDT 10/06/2023 7:32 PM EDT Mamadou Clarke MD LAB MICRO - GENERAL ORDERABLES Performing Organization Address [facility] Co de Phone Number LABORATORY [address] [address] * TROPONIN T, HIGH SENSITIVITY (10/06/2023 7:27 PM EDT) [facility] Troponin T, High Sensitivity 21 <=22 ng/L 10/06/2023 7:52 PM EDT LABORATORY GLH Blood Venous blood specimen / Unknown Venipuncture / Unknown 10/06/2023 7:27 PM EDT 10/06/2023 7:32 PM EDT Mamadou Clarke MD LAB BLOOD ORDERABLES Performing Organization Address City/[facility]/ZIP Co de Phone Number LABORATORY [address] [phone] * (ABNORMAL) HEPATIC FUNCTION PANEL (10/06/2023 7:27 PM EDT) [facility] Albumin 3.5(L) 3.8 - 5.0 g/dL 10/06/2023 7:53 PM EDT LABORATORY GLH AST 15 10 - 50 U/L 10/06/2023 7:53 PM EDT LABORATORY GLH Alkaline Phosphatase 60 35 - 130 U/L 10/06/2023 7:53 PM EDT LABORATORY GLH ALT 11 10 - 50 U/L 10/06/2023 7:53 PM EDT LABORATORY GL[facility] Bilirubin, Total 0.3 <=1.2 mg/dL 10/06/2023 7:53 PM EDT LABORATORY GLH Bilirubin, Direct <0.2 0.0 - 0.3 mg/dL 10/06/2023 7:53 PM EDT LABORATORY GL[facility] Protein 6.2 6.0 - 8.3 g/dL 10/06/2023 7:53 PM EDT LABORATORY GLH Blood Venous blood specimen / Unknown Venipuncture / Unknown 10/06/2023 7:27 PM EDT 10/06/2023 7:32 PM EDT Mamadou Clarke MD LAB BLOOD ORDERABLES Performing Organization Address [facility]/ZIP Co de Phone Number LABORATORY [address] [address] * (ABNORMAL) BASIC METABOLIC PANEL (10/06/2023 7:27 PM EDT) BUN 22(H) 6 - 20 mg/dL 10/06/2023 7:53 PM EDT LABORATORY GLH Creatinine 1.1 0.6 - 1.2 mg/dL 10/06/2023 7:53 PM EDT LABORATORY GLH Estimated Glomerular Filtration Rate 71 >=60 mL/min 10/06/2023 7:53 PM EDT LABORATORY GLH Comment:eGFR is calculated b ased on the CKD-EPI 2020 equation Sodium 138 135 - 146 mmol/L 10/06/2023 7:53 PM EDT LABORATORY GLH Potassium 4.6 3.5 - 5.1 mmol/L 10/06/2023 7:53 PM EDT LABORATORY GLH Chloride 102 98 - 107 mmol/L 10/06/2023 7:53 PM EDT LABORATORY GLH CO2 18(L) 22 - 32 mmol/L 10/06/2023 7:53 PM EDT LABORATORY GLH Anion Gap 18(H) 7 - 15 mmol/L 10/06/2023 7:53 PM EDT LABORATORY GLH Glucose 199(H) 70 - 120 mg/dL 10/06/2023 7:53 PM EDT LABORATORY GLH Calcium 8.7 8.4 - 10.2 mg/dL 10/06/2023 7:53 PM EDT LABORATORY GL Blood Venous blood specimen / Unknown Venipuncture / Unknown 10/06/2023 7:27 PM EDT 10/06/2023 7:32 PM EDT Mamadou Clarke MD LAB BLOOD ORDERABLES LABORATORY GL [address] [place] [address] * XR CHEST 1 VIEW (10/06/2023 7:14 PM EDT) Anatomical Region Laterality Modality Chest Digital Radiogra phy 10/06/2023 7:07 PM EDT Impressions 10/06/2023 7:48 PM EDT IMPRESSION: No focal consolidation identified. THIS DOCUMENT HAS BEEN ELECTRONICALLY SIGNED BY NEL PARISI MD Narrative 10/06/2023 7:48 PM EDT PROCEDURE INFORMATION: Exam: XR Chest Exam date and time: 10/06/2023 7:07 PM Age: 72 years old Clinical indication: Other: Near-syncope TECHNIQUE: Imaging protocol: Radiologic exam of the chest. Views: 1 view. COMPARISON: CT CHEST W CONTRAST 09/09/2023 5:33 AM FINDINGS: Lungs: No definite air bronchograms identified. Lungs are hyperexpanded without focal consolidation. Pleural spaces: Unremarkable. No pleural effusion. No pneumothorax. Heart/Mediastinum: The heart is enlarged. Bones/joints: There are moderate degenerative changes present. Surgical changes are present in the cervical spine. Procedure Note Nel Parisi MD - 10/06/2023 PROCEDURE INFORMATION: Exam: XR Chest Exam date and time: 10/06/2023 7:07 PM Age: 72 years old Clinical indication: Other: Near-syncope TECHNIQUE: Imaging protocol: Radiologic exam of the chest. Views: 1 view. COMPARISON: CT CHEST W CONTRAST 09/09/2023 5:33 AM FINDINGS: Lungs: No definite air bronchograms identified. Lungs are hyperexpandedwithout focal consolidation. Pleural spaces: Unremarkable. No pleural effusion. No pneumothorax. Heart/Mediastinum: The heart is enlarged. Bones/joints: There are moderate degenerative changes present. Surgicalchanges are present in the cervical spine. IMPRESSION IMPRESSION: No focal consolidation identified. THIS DOCUMENT HAS BEEN ELECTRONICALLY SIGNED BY NEL PARISI MD Mamadou Clarke MD RADIOLOGY ([facility]) * EKG (10/06/2023 6:43 PM EDT) 10/06/2023 6:43 PM EDT Narrative Procedure Note Louis Kruse DO - 10/06/2023 6:43 PM EDT REASON FOR STUDY: WEAKNESS CONCLUSIONS: Normal sinus rhythm High QRS voltage may be normal variant or due to lve Possible Inferior infarct , age undetermined Abnormal ECG When compared with ECG of 04-Sep-2023 22:22, Warning: interpretation of this ECG, although attempted, may be adverselyaffected by data quality Suggest repeat tracing with better attention to quality of tracing Ventricular Rate: 99 Atrial Rate: 99 OR Interval: 130 QRS Duration: 92 QT/QTc: 320/411 ms P-R-T [place]: 11 : -1 : 31 degrees Mamadou Clarke MD EKG [facility] documented in this encounter Visit Diagnoses Diagnosis Orthostatic hypotension- Primary Near syncope Syncope and collapse Elevated lactic acid level Acidosis Urinary tract infection without hematuria, site unspecified Chest pain Chest pain, unspecified History of DVT (deep vein thrombosis) Personal history of venous thrombosis and embolism History of pulmonary embolism Personal history of pulmonary embolism Type 2 diabetes mellitus with hemoglobin A1c goal of less than 7.5% (HCC) Hyperparathyroidism (HCC) Hyperparathyroidism, unspecified Essential hypertension with goal blood pressure less than 130/80 Dysautonomia (HCC) Unspecified disorder of autonomic nervous system Syncope and collapse Elevated lactic acid level Acidosis Complicated UTI (urinary tract infection) Urinary tract infection, site not specified documented in this encounter Administered Medications Inactive Administered Medications - up to 3 most recent administrations Medication Order MAR Action Action Date Dose Rate Site Acetaminophen (Tylenol) tab 650 mg 650 mg, Oral, Q6H PRN Pain, Mild, Fever >38C(100.5F), Starting on 10/06/23 at 2252, Until [place] 10/11/23 at 1452, Maximum of 4 grams (4000 mg) per day. Given 10/10/2023 5:29 AM EDT 650 mg atorvaSTATin (Lipitor) tab 40 mg 40 mg, Oral, Daily(AM), First dose on 10/07/23 at 0900, Until Discontinued Given 10/11/2023 8:15 AM EDT 40 mg Given 10/10/2023 8:20 AM EDT 40 mg Given 10/09/2023 8:03 AM EDT 40 mg Bisacodyl (Dulcolax) supp 10 mg 10 mg, Rectal, DAILY PRN Constipation, Starting on 10/09/23 at 2252, Until [place] 10/11/23 at 1452, Administer if no bowel movement within past 72 hours and patient unable to take oral medications. Bisacodyl (Dulcolax) tab 5 mg 5 mg, Oral, DAILY PRN Constipation, Starting on 10/09/23 at 2252, Until [place] 10/11/23 at 1452, Administer in addition to polyethylene glycol and senna-docusate if no bowel movement in past 72 hours. cefTRIAXone in dextrose (Rocephin) IVPB 1 g IV Piggyback, 1 g, ONCE, 1 dose, On 10/06/23 at 2145, Administer over 30 Minutes New Bag 10/06/2023 9:16 PM EDT 1 g 100 mL/hr cefTRIAXone in dextrose (Rocephin) IVPB 1 g IV Piggyback, 1 g, Q24H, 5 doses, First dose on 10/07/23 at 2100, Last dose on [place] 10/11/23 at 2100, Administer over 30 Minutes New Bag 10/10/2023 9:24 PM EDT 1 g 100 mL/hr New Bag 10/09/2023 9:13 PM EDT 1 g 100 mL/hr New Bag 10/08/2023 9:45 PM EDT 1 g 100 mL/hr cinacalcet (Sensipar) tab 30 mg 30 mg, Oral, Daily(AM), First dose on [place] 10/07/23 at 0900, Until Discontinued Given 10/11/2023 8:15 AM EDT 30 mg Given 10/10/2023 8:20 AM EDT 30 mg Given 10/09/2023 8:03 AM EDT 30 mg dextrose 50% inj 25 mL 25 mL, IV Push, PRN Hypoglycemia, Other, For blood glucose 54 - 69 mg/dL or 70 - 100 mg/dL with symptoms AND patient is unresponsive, NPO, OR unable to swallow, Starting on 10/06/23 at 2328, Until [place] 10/11/23 at 1452, Administer IV. Recheck blood glucose after 15 minutes. Notify provider. dextrose 50% inj 50 mL 50 mL, IV Push, PRN Hypoglycemia, Other, For blood glucose below 54 mg/dL AND patient unresponsive, NPO, OR unable to swallow, Starting on 10/06/23 at 2328, Until [place] 10/11/23 at 1452, Administer IV. Recheck blood glucose in 15 minutes. Notify provider. Docusate Sodium (Colace) cap 100 mg 100 mg, Oral, BID (.AM/PM), First dose on [place] 10/07/23 at 0900, Until Discontinued, For oral administration ONLY, if route of administration is other than oral and alternative product must be ordered. Given 10/11/2023 8:15 AM EDT 100 mg Given 10/10/2023 9:16 PM EDT 100 mg Given 10/10/2023 8:20 AM EDT 100 mg DULoxetine (Cymbalta) DR cap 60 mg 60 mg, Oral, Daily(AM), First dose on 10/07/23 at 0900, Until Discontinued Given 10/11/2023 8:16 AM EDT 60 mg Given 10/10/2023 8:20 AM EDT 60 mg Given 10/09/2023 8:03 AM EDT 60 mg Finasteride (Proscar) tab 5 mg 5 mg, Oral, Daily(AM), First dose on 10/07/23 at 0900, Until Discontinued Given 10/11/2023 8:15 AM EDT 5 mg Given 10/10/2023 8:20 AM EDT 5 mg Given 10/09/2023 8:02 AM EDT 5 mg glucagon (Glucagen) inj 1 mg 1 mg, Intramuscular, PRN Hypoglycemia, Other, If patient is unresponsive, or NPO and has no IV access, Starting on 10/06/23 at 2328, Until [place] 10/11/23 at 1452, NPO and no IV access with either [...] patient alert WITH difficulty chewing/swallowing, Starting on 10/06/23 at 2328, Until [place] 10/11/23 at 1452, Administer gel. Recheck blood glucose after 15 minutes. Notify provider. 37.5 gram tube = 15 grams glucose = 1 each Glucose (Glutose 15) 40 % gel 30 g of glucose 30 g of glucose, Oral, PRN Hypoglycemia (low sugar), Other, For blood glucose below 54 mg/dL AND patient alert WITH difficulty chewing/swallowing, Starting on 10/06/23 at 2328, Until [place] 10/11/23 at 1452, Administer gel. Recheck blood glucose after 15 minutes. Notify provider. 37.5 gram tube = 15 grams glucose = 1 each glucose chew tab 16 g 16 g, Oral, PRN Hypoglycemia, Other, For blood glucose 54 - 69 mg/dL or 70 - 100 mg/dL with symptoms and patient alert without difficulty chewing/swallowing., Starting on 10/06/23 at 2328, Until Josefa 10/11/23 at 1452 insulin aspart (NovoLOG) inj Subcutaneous, W/MEALS AND HS, First dose on 10/07/23 at 0800, Until Discontinued, MEDIUM DOSE (Usual starting dose): [...] insulin dose and call covering provider. Given 10/10/2023 9:17 PM EDT 6 Units Arm Left Upper Given 10/10/2023 4:57 PM EDT 2 Units Ar m Right Upper Given 10/10/2023 11:22 AM EDT 4 Units A rm Left Upper metoprolol succinate XL (toPROL XL) tab 12.5 mg 12.5 mg, Oral, HS, First dose (after last modification) on Sun10/10/23 at 2200, Until Discontinued, Hold for HR less than 60 or SBP below 100 and notify service if dose is held This med should NOT be Crushed or Chewed. Given 10/10/2023 9:17 PM EDT 12.5 mg metoprolol succinate XL (toPROL XL) tab 25 mg 25 mg, Oral, HS, First dose on 10/06/23 at 2330, Until Discontinued, Hold for HR less than 60 or SBP below 100 and notify service if dose is held This med should NOT be Crushed or Chewed. Given 10/08/2023 10:29 PM EDT 25 mg Given 10/07/2023 10:38 PM EDT 25 mg Given 10/07/2023 12:59 AM EDT 25 mg midodrine (Proamatine) tab 5 mg 5 mg, Oral, TID 06;12;18, First dose on Sun10/10/23 at 0915, Until Discontinued Given 10/11/2023 5:53 AM EDT 5 mg Given 10/10/2023 6:31 PM EDT 5 mg Given 10/10/2023 8:46 AM EDT 5 mg NSS 0.9% 1,000 mL bolus infusion Peripheral IV, at 1,000 mL/hr Administer over 60 Minutes, Administer entire volume within 60 minutes or less., ONCE, 1 dose, On Sun10/06/23 at 2145 New Bag 10/06/2023 9:12 PM EDT 1,000 mL 1000 mL/hr NSS infusion Intravenous, at 150 mL/hr, ONCE, 1 dose, On Sun10/06/23 at 1930 New Bag 10/06/2023 7:34 PM EDT 150 mL/hr NSS infusion 500 mL, Intravenous, at 50 mL/hr, ONCE, 1 dose, On Sun10/07/23 at 0000 Rate Verify 10/07/2023 5:40 AM EDT 50 mL/hr New Bag 10/07/2023 1:05 AM EDT 500 mL 50 mL/hr NSS infusion Intravenous, at 75 mL/hr, CONTINUOUS, Starting on Sun10/08/23 at 0915, Until Sun10/08/23 at 1914 Restarted 10/08/2023 10:15 PM EDT 75 mL/hr New Bag 10/08/2023 9:47 AM EDT 75 mL/hr omeprazole (PriLOSEC) cap 20 mg 20 mg, Oral, Daily(AM), First dose on Sun10/07/23 at 0900, Until Discontinued, This med should NOT be Crushed or Chewed Given 10/11/2023 8:15 AM EDT 20 mg Given 10/10/2023 8:20 AM EDT 20 mg Given 10/09/2023 8:02 AM EDT 20 mg ondansetron (Zofran) inj 4 mg 4 mg, IV Push, Q6H PRN Nausea, Starting on Sun10/06/23 at 2252, Until Josefa 10/11/23 at 1452 Given 10/07/2023 4:19 PM EDT 4 mg Polyethylene Glycol 3350 (Miralax) oral powder 17 g 17 g (1 Packet), Oral, DAILY PRN Constipation, Starting on 10/05/24 at 2252, Until Josefa 10/11/23 at 1452, Administer if no bowel movement within past 24 hours. Given 10/11/2023 8:16 AM EDT 17 g Given 10/10/2023 11:42 AM EDT 17 g Given 10/09/2023 9:08 PM EDT 17 g senna-docusate (Senokot-S) 1 Tablet 1 Tablet, Oral, BID PRN Constipation, Starting on 10/08/23 at 2252, Until Josefa 10/11/23 at 1452, Administer in addition to polyethylene glycol if no bowel movement within past 48 hours. Given 10/10/2023 11:42 AM EDT 1 Tablet Given 10/09/2023 9:07 PM EDT 1 Tablet tamsulosin (Flomax) cap 0.4 mg 0.4 mg, Oral, Daily(AM), First dose on Sun10/07/23 at 0900, Until Discontinued, Administer 30 min after meal. This med should NOT be Crushed or Chewed or opened! ORAL administration only!! Given 10/09/2023 8:02 AM EDT 0.4 mg Given 10/08/2023 8:19 AM EDT 0.4 mg Given 10/07/2023 9:13 AM EDT 0.4 mg tamsulosin (Flomax) cap 0.4 mg 0.4 mg, Oral, HS, First dose (after last modification) on Sun10/09/23 at 2200, Until Discontinued, Administer 30 min after meal. This med should NOT be Crushed or Chewed or opened! ORAL administration only!! Given 10/10/2023 9:17 PM EDT 0.4 mg Given 10/09/2023 10:40 PM EDT 0.4 mg warfarin check daily dose (PHARMACIST MANAGED) [id number], First dose on Sun10/07/23 at 1500, Until Discontinued, Routine, Contact the pharmacy if there is not a warfarin dose entered by 1500 and document with whom it was discussed. Warfarin Sodium (Coumadin) tab 5 mg 5 mg, Oral, ONCE, On 10/07/23 at 0245, For 1 dose, WASTE INFO: Return packaging and waste medication in zip lock bag to pharmacy - [facility] container. Given 10/07/2023 3:51 AM EDT 5 mg Warfarin Sodium (Coumadin) tab 5 mg 5 mg, Oral, QPM-1999, First dose on Sun10/09/23 at 1999, Last dose on Sun10/09/23 at 1999, For 1 day, WASTE INFO: Return packaging and waste medication in zip lock bag to pharmacy - [facility] container. Given 10/09/2023 9:07 PM EDT 5 mg Warfarin Sodium (Coumadin) tab 5 mg 5 mg, Oral, QPM-1999, First dose on Sun10/10/23 at 1999, Last dose on Sun10/10/23 at 1999, For 1 day, WASTE INFO: Return packaging and waste medication in zip lock bag to pharmacy - [facility] container. Given 10/10/2023 7:50 PM EDT 5 mg Warfarin Sodium (Coumadin) tab 5 mg 5 mg, Oral, QPM-1999, First dose on Sun10/11/23 at 1999, Last dose on Sun10/11/23 at 1999, For 1 day, WASTE INFO: Return packaging and waste medication in zip lock bag to pharmacy - [facility] container. Warfarin Sodium (Coumadin) tab 7.5 mg 7.5 mg, Oral, QPM-1999, First dose on Sun10/07/23 at 1999, Last dose on Sun10/07/23 at 1999, For 1 day, WASTE INFO: Return packaging and waste medication in zip lock bag to pharmacy - [facility] container. Given 10/07/2023 8:23 PM EDT 7.5 mg Warfarin Sodium (Coumadin) tab 7.5 mg 7.5 mg, Oral, QPM-1999, First dose on Sun10/08/23 at 1999, Last dose on Sun10/08/23 at 1999, For 1 day, WASTE INFO: Return packaging and waste medication in zip lock bag to pharmacy - [facility] container. Given 10/08/2023 7:21 PM EDT 7.5 mg documented in this encounter Active and Recently Administered Medications Times are shown in EDT. Scheduled Medication Order 10/09/2023 10/10/2023 10/11/2023 atorvaSTATin (Lipitor) tab 40 mg 40 mg, Oral, Daily(AM), First dose on Sun10/07/23 at 0900, Until Discontinued 08 (Given - Provider: Daniel German RN) 08 (Given - Provider: Nasim Llanes, TREY) 0815 (Given - Provider: Kamille Junior, RN) cefTRIAXone in dextrose (Rocephin) IVPB 1 g IV Piggyback, 1 g, Q24H, 5 doses, First dose on 10/07/23 at 2100, Last dose on Josefa 10/11/23 at 2100, Administer over 30 Minutes 2112 (New Bag - Provider: Mary Chaudhari RN)2142 (Stopped - Provider: Mary Chaudhari RN) 2123 (New Bag - Provider: Johana Terrell, RN) 1451 (Due: Stopped) cinacalcet (Sensipar) tab 30 mg 30 mg, Oral, Daily(AM), First dose on 10/07/23 at 0900, Until Discontinued 802 (Given - Provider: Daniel German RN) 0820 (Given - Provider: Nasim Llanes, TREY) 0815 (Given - Provider: Kamille Junior, RN) Docusate Sodium (Colace) cap 100 mg 100 mg, Oral, BID (.AM/PM), First dose on 10/07/23 at 0900, Until Discontinued, For oral administration ONLY, if route of administration is other than oral and alternative product must be ordered. 08 (Given - Provider: Daniel German RN)2106 (Given - Provider: Mary Chaudhari RN) 0820 (Given - Provider: Nasim Llanes, TREY)2115 (Given - Provider: Johana Terrell, TREY) 0815 (Given - Provider: Kamille Junior, RN) DULoxetine (Cymbalta) DR cap 60 mg 60 mg, Oral, Daily(AM), First dose on 10/07/23 at 0900, Until Discontinued 0803 (Given - Provider: Daniel German RN) 0820 (Given - Provider: Nasim Llanes, TREY) 0816 (Given - Provider: Kamille Junior, TREY) Finasteride (Proscar) tab 5 mg 5 mg, Oral, Daily(AM), First dose on 10/07/23 at 0900, Until Discontinued 0802 (Given - Provider: Daniel German RN) 0820 (Given - Provider: Nasim Llanes RN) 0815 (Given - Provider: Kamille Vernon, RN) insulin aspart (NovoLOG) inj Subcutaneous, W/MEALS AND HS, First dose on Sun10/07/23 at 0800, Until Discontinued, MEDIUM DOSE (Usual starting dose): [...] covering provider. 0800 (Not Given - Provider: Daniel German RN - Reason: Parameter(s) Not Met)1133 (Given - Provider: Daniel German RN)1632 (Given - Provider: Daniel German RN)2240 (Given - Provider: Mary Chaudhari RN) 0800 (Not Given - Provider: Nasim Llanes RN - Reason: Parameter(s) Not Met)1122 (Given - Provider: Nasim Llanes RN)1657 (Given - Provider: Nasim Llanes RN)211 (Given - Provider: Johana Terrell RN) 0800 (Not Given - Provider: Kamille Junior RN - Reason: Parameter(s) Not Met) metoprolol succinate XL (toPROL XL) tab 12.5 mg 12.5 mg, Oral, HS, First dose (after last modification) on Sun10/10/23 at 2200, Until Discontinued, Hold for HR less than 60 or SBP below 100 and notify service if dose is held This med should NOT be Crushed or Chewed. 2116 (Given - Provider: Johana Terrell, TREY) midodrine (Proamatine) tab 5 mg 5 mg, Oral, TID 06;12;18, First dose on Sun10/10/23 at 0915, Until Discontinued 0846 (Given - Provider: Nasim Llanes RN)1831 (Given - Provider: Nasim Llanes RN) 0553 (Given - Provider: Johana Terrell RN) omeprazole (PriLOSEC) cap 20 mg 20 mg, Oral, Daily(AM), First dose on Sun10/07/23 at 0900, Until Discontinued, This med should NOT be Crushed or Chewed 0802 (Given - Provider: Daniel German RN) 0820 (Given - Provider: Nasim Llanes, RN) 0815 (Given - Provider: Kamille Junior, TREY) tamsulosin (Flomax) cap 0.4 mg (CANCELED) 0.4 mg, Oral, Daily(AM), First dose on Sun10/07/23 at 0900, Until Discontinued, Administer 30 min after meal. This med should NOT be Crushed or Chewed or opened! ORAL administration only!! 0802 (Given - Provider: Daniel German RN) tamsulosin (Flomax) cap 0.4 mg 0.4 mg, Oral, HS, First dose (after last modification) on Sun10/09/23 at 2200, Until Discontinued, Administer 30 min after meal. This med should NOT be Crushed or Chewed or opened! ORAL administration only!! 2239 (Given - Provider: Mary Chaudhari RN) 2116 (Given - Provider: Johana Terrell RN) warfarin check daily dose (PHARMACIST MANAGED) [id number], First dose on Sun10/07/23 at 1500, Until Discontinued, Routine, Contact the pharmacy if there is not a warfarin dose entered by 1500 and document with whom it was discussed. 1500 (Order Check Addressed - Provider: Daniel German RN) 1500 (Order Check Addressed - Provider: Nasim Llanes, TREY) Warfarin Sodium (Coumadin) tab 5 mg (COMPLETED) 5 mg, Oral, QPM-1999, First dose on Sun10/09/23 at 1999, Last dose on Sun10/09/23 at 1999, For 1 day, WASTE INFO: Return packaging and waste medication in zip lock bag to pharmacy - [facility] container. 2106 (Given - Provider: Mary Chaudhari RN) Warfarin Sodium (Coumadin) tab 5 mg (COMPLETED) 5 mg, Oral, QPM-1999, First dose on Sun10/10/23 at 1999, Last dose on Sun10/10/23 at 1999, For 1 day, WASTE INFO: Return packaging and waste medication in zip lock bag to pharmacy - [facility] container. 1950 (Given - Provider: Johana Terrell, RN) Warfarin Sodium (Coumadin) tab 5 mg 5 mg, Oral, QPM-1999, First dose on Josefa 10/11/23 at 1999, Last dose on Josefa 10/11/23 at 1999, For 1 day, WASTE INFO: Return packaging and waste medication in zip lock bag to pharmacy - [facility] container. PRN Medication Order 10/09/2023 10/10/2023 10/11/2023 Acetaminophen (Tylenol) tab 650 mg 650 mg, Oral, Q6H PRN Pain, Mild, Fever >38C(100.5F), Starting on 10/06/23 at 2252, Until Josefa 10/11/23 at 1452, Maximum of 4 grams (4000 mg) per day. 528 (Given - Provider: Mary Chaudhari RN) Bisacodyl (Dulcolax) supp 10 mg(Linked Group 1) 10 mg, Rectal, DAILY PRN Constipation, Starting on 10/09/23 at 2252, Until Josefa 10/11/23 at 1452, Administer if no bowel movement within past 72 hours and patient unable to take oral medications. Bisacodyl (Dulcolax) tab 5 mg(Linked Group 1) 5 mg, Oral, DAILY PRN Constipation, Starting on 10/09/23 at 2252, Until Josefa 10/11/23 at 1452, Administer in addition to polyethylene glycol and senna-docusate if no bowel movement in past 72 hours. dextrose 50% inj 25 mL 25 mL, IV Push, PRN Hypoglycemia, Other, For blood glucose 54 - 69 mg/dL or 70 - 100 mg/dL with symptoms AND patient is unresponsive, NPO, OR unable to swallow, Starting on 10/06/23 at 2328, Until Josefa 10/11/23 at 1452, Administer IV. Recheck blood glucose after 15 minutes. Notify provider. dextrose 50% inj 50 mL 50 mL, IV Push, PRN Hypoglycemia, Other, For blood glucose below 54 mg/dL AND patient unresponsive, NPO, OR unable to swallow, Starting on 10/06/23 at 2328, Until Josefa 10/11/23 at 1452, Administer IV. Recheck blood glucose in 15 minutes. Notify provider. glucagon (Glucagen) inj 1 mg 1 mg, Intramuscular, PRN Hypoglycemia, Other, If patient is unresponsive, or NPO and has no IV access, Starting on 10/06/23 at 2328, Until Josefa 10/11/23 at 1452, NPO and no IV access with either [...] patient alert WITH difficulty chewing/swallowing, Starting on 10/06/23 at 2328, Until Josefa 10/11/23 at 1452, Administer gel. Recheck blood glucose after 15 minutes. Notify provider. 37.5 gram tube = 15 grams glucose = 1 each Glucose (Glutose 15) 40 % gel 30 g of glucose 30 g of glucose, Oral, PRN Hypoglycemia (low sugar), Other, For blood glucose below 54 mg/dL AND patient alert WITH difficulty chewing/swallowing, Starting on 10/06/23 at 2328, Until Josefa 10/11/23 at 1452, Administer gel. Recheck blood glucose after 15 minutes. Notify provider. 37.5 gram tube = 15 grams glucose = 1 each glucose chew tab 16 g 16 g, Oral, PRN Hypoglycemia, Other, For blood glucose 54 - 69 mg/dL or 70 - 100 mg/dL with symptoms and patient alert without difficulty chewing/swallowing., Starting on 10/06/23 at 2328, Until Josefa 10/11/23 at 1452 melatonin tab 3 mg 3 mg, Oral, HS PRN Insomnia, Starting on 10/06/23 at 2252, Until Josefa 10/11/23 at 1452 ondansetron (Zofran) inj 4 mg 4 mg, IV Push, Q6H PRN Nausea, Starting on 10/06/23 at 2252, Until Josefa 10/11/23 at 1452 Polyethylene Glycol 3350 (Miralax) oral powder 17 g(Linked Group 1) 17 g (1 Packet), Oral, DAILY PRN Constipation, Starting on 10/06/23 at 2252, Until Josefa 10/11/23 at 1452, Administer if no bowel movement within past 24 hours. 2107 (Given - Provider: Mary Chaudhari, RN) 1142 (Given - Provider: Nasim Llanes, RN) 0816 (Given - Provider: Kamille Junior RN) senna-docusate (Senokot-S) 1 Tablet(Linked Group 1) 1 Tablet, Oral, BID PRN Constipation, Starting on 10/08/23 at 2252, Until Josefa 10/11/23 at 1452, Administer in addition to polyethylene glycol if no bowel movement within past 48 hours. 2106 (Given - Provider: Mary Chaudhari RN) 1142 (Given - Provider: Nasim Llanes, TREY) sodium chloride 0.9 % flush/inj 3 mL 3 mL, IV Push, PRN Other, Line Patency, Starting on 10/06/23 at 2250, Until Josefa 10/11/23 at 1452, Do not flush if lock, PICC, or central line not in place, IV infusing or unable to flush Linked Groups Order Group 1: Polyethylene Glycol 3350 (Miralax) oral powder 17 gJump to med 17 g (1 Packet), Oral, DAILY PRN Constipation, Starting on 10/06/23 at 2252, Until Josefa 10/11/23 at 1452, Administer if no bowel movement within past 24 hours. And senna-docusate (Senokot-S) 1 TabletJump to med 1 Tablet, Oral, BID PRN Constipation, Starting on 10/08/23 at 2252, Until Josefa 10/11/23 at 1452, Administer in addition to polyethylene glycol if no bowel movement within past 48 hours. And Bisacodyl (Dulcolax) tab 5 mgJump to med 5 mg, Oral, DAILY PRN Constipation, Starting on 10/09/23 at 2252, Until Josefa 10/11/23 at 1452, Administer in addition to polyethylene glycol and senna- docusate if no bowel movement in past 72 hours. And Bisacodyl (Dulcolax) supp 10 mgJump to med 10 mg, Rectal, DAILY PRN Constipation, Starting on 10/09/23 at 2252, Until Josefa 10/11/23 at 1452, Administer if no bowel movement within past 72 hours and patient unable to take oral medications. documented in this encounter Additional Health Concerns Infection Onset Date Last Indicated Resolved Time Gastrointestinal Rule-Out 10/07/2023 10/07/2023 8:20 AM EDT documented as of this encounter [...] Power of Attor jus? No Care Teams Asphalt Raker Relationship Specialty Start Date End Date Kaiser Amanda MD [address] [id number] PCP - General Family Medicine 04/11/21 documented as of this encounter
--- OUTSIDE RECORDS SUMMARY | 2024-01-29 20:43 | External Medical Summary ---
Author Name Unknown Address Unknown Organization : Laboratory Report Ordering Provider Test Date Status PETER CAMEJO 10/11/2023 07:38:29 Final Observation Date Value Abnormality Reference (Units ) Status Glucose Point of Care 10/11/2023 07:38:29 125 Above high normal 70-120 (mg/dL) Final Performing Location
--- OUTSIDE RECORDS SUMMARY | 2024-01-29 20:43 | External Medical Summary ---
Author Name Unknown Address Unknown Organization K1F:[facility] - [address] [place] [address] Laboratory Report Ordering Provider Test Date Status NORY GOMEZ 10/10/2023 03:31:00 Final Observation Date Value Abnormality Reference (Units ) Status BUN 10/10/2023 03:31:00 17 6-20 (mg/dL) Final Creatinine 10/10/2023 03:31:00 0.9 0.6-1.2 (mg/dL) Final Glomerular filtration rate/1.73 sq M.predicted [Volume Rate/Area] in Serum, Plasma or Blood by Creatinine-based formula (CKD-EPI) 10/10/2023 03:31:00 90 >=60 (mL/min) Final eGFR is calculated based on the CKD-EPI 2020 equation Sodium 10/10/2023 03:31:00 142 135-146 (m mol/L) Final Potassium 10/10/2023 03:31:00 4.4 3.5-5.1 (m mol/L) Final Cl 10/10/2023 03:31:00 107 98-107 (mm ol/L) Final CO2 10/10/2023 03:31:00 25 22-32 (mmo l/L) Final Anion gap 10/10/2023 03:31:00 10 7-15 (mmol /L) Final Glucose 10/10/2023 03:31:00 160 Above high normal 70 -120 (mg/dL) Final Calcium 10/10/2023 03:31:00 8.9 8.4-10.2 ( mg/dL) Final Performing Location [facility]ATORY [facility] - [address] [place] [address]
--- OUTSIDE RECORDS SUMMARY | 2024-01-29 20:43 | External Medical Summary ---
Author Name Unknown Address Unknown Organization K1F:[facility]ORY [facility] - [address] [place] [address] Laboratory Report Ordering Provider Test Date Status NORY GOMEZ 10/09/2023 16:11:47 Final Observation Date Value Abnormality Reference (Units ) Status Color of Urine by Auto 10/09/2023 16:11:47 Yellow Light Yellow, Yellow, Dark Yellow Final Clarity, Urine 10/09/2023 16:11:47 Clear Clear Final Glucose [Mass/volume] in Urine by Automated test strip 10/09/2023 16:11:47 100 Abnormal Negative (mg/dL) Final Bilirubin.total [Presence] in Urine by Automated test strip 10/09/2023 16:11:47 Negative Negative Final Ketones [Mass/volume] in Urine by Automated test strip 10/09/2023 16:11:47 Negative Negative (mg/dL) Final Specific gravity, Urine 10/09/2023 16:11:47 1.014 1.003-1.030 Final Hemoglobin [Presence] in Urine by Automated test strip 10/09/2023 16:11:47 Negative Negative Final pH, Urine 10/09/2023 16:11:47 5.5 5.0-7.5 (Units) Final Protein [Mass/volume] in Urine by Automated test strip 10/09/2023 16:11:47 Negative Negative (mg/dL) Final Urobilinogen [Mass/volume] in Urine by Automated test strip 10/09/2023 16:11:47 0.2 0.2, 1.0 (mg/dL) Final Nitrite [Presence] in Urine by Automated test strip 10/09/2023 16:11:47 Negative Negative Final Leukocyte esterase [Presence] in Urine by Automated test strip 10/09/2023 16:11:47 Moderate Abnormal Negative Final Performing Location LABORATORY [facility] - [address] [place] [address]
--- OUTSIDE RECORDS SUMMARY | 2024-01-29 20:43 | External Medical Summary ---
Author Name Unknown Address Unknown Organization K1F:LAB[facility]ATORY [facility] - [address] [place] [address] Laboratory Report Ordering Provider Test Date Status RAVITAZEWELL 10/10/2023 03:31:00 Final Warfarin Therapy
INR: 2 .0-3.0 conventional anticoagulation
INR: 2.5- 3.5 high intensity anticoagulation Observation Date Value Abnormality Reference (Units ) Status PT 10/10/2023 03:31:00 25.1 Above high normal 11 .6-15.2 (seconds) Final INR 10/10/2023 03:31:00 2.3 Above high normal 0. 8-1.2 Final Performing Location [facility] - [address] [place] [address]
--- OUTSIDE RECORDS SUMMARY | 2024-01-29 20:43 | External Medical Summary ---
Author Name Unknown Address Unknown Organization : Laboratory Report Ordering Provider Test Date Status PETER CAMEJO 10/10/2023 07:32:07 Final Observation Date Value Abnormality Reference (Units ) Status Glucose Point of Care 10/10/2023 07:32:07 141 Above high normal 70-120 (mg/dL) Final Performing Location
--- OUTSIDE RECORDS SUMMARY | 2024-01-29 20:44 | External Medical Summary ---
Author Name Unknown Address Unknown Organization : Laboratory Report Ordering Provider Test Date Status CHRIS LINN 10/07/2023 00:08:06 Final Observation Date Value Abnormality Reference (Units ) Status Glucose Point of Care 10/07/2023 00:08:06 176 Above high normal 70-120 (mg/dL) Final Performing Location
--- OUTSIDE RECORDS SUMMARY | 2024-01-29 20:44 | External Medical Summary ---
Author Name Unknown Address Unknown Organization K1F:LABORATORY [facility] - [address] [place] [address] Laboratory Report Ordering Provider Test Date Status RAVIWASHINGTON 10/09/2023 04:11:00 Final Warfarin Therapy
INR: 2 .0-3.0 conventional anticoagulation
INR: 2.5- 3.5 high intensity anticoagulation Observation Date Value Abnormality Reference (Units ) Status PT 10/09/2023 04:11:00 23.5 Above high normal 11 .6-15.2 (seconds) Final INR 10/09/2023 04:11:00 2.1 Above high normal 0. 8-1.2 Final Performing Location [facility] - [address] [place] [address]
--- OUTSIDE RECORDS SUMMARY | 2024-01-29 20:44 | External Medical Summary ---
Author Name Unknown Address Unknown Organization K1F:LABORATORY [facility] - [address] [place] [address] [place] [address] Laboratory Report Ordering Provider Test Date Status ZACHERY BENNETT 10/06/2023 19:39:03 Final Observation Date Value Abnormality Reference (Units ) Status Bacteria identified in Specimen by Culture 10/06/2023 19:39:03 No growth Final Test: Culture, Blood (Site 2 )
Specimen Source: Blood, Venous
Specimen Type: Blood
Specimen Date: 10/06/20231938
Result Date: 10/11/20232000
Result Status: Final result
Resulting Lab: LAB[facility]ATORY [facility]
[address] [place] [address]
[place] [address]

CULTURE

No growth

null Performing Location LABORATORY [facility] - [address] [place], [place] [address] [address]
--- OUTSIDE RECORDS SUMMARY | 2024-01-29 20:44 | External Medical Summary ---
Author Name Unknown Address Unknown Organization K1F:LABORATORY [facility] - [address] [place] [address] Laboratory Report Ordering Provider Test Date Status CHRIS LINN 10/09/2023 04:11:00 Final Observation Date Value Abnormality Reference (Units ) Status WBC, Total 10/09/2023 04:11:00 6.03 4.00-10.80 (K/uL) Final RBC 10/09/2023 04:11:00 3.51 4.50-5.25 (M/uL) Final Hemoglobin 10/09/2023 04:11:00 10.7 Below low normal 14.0-16.8 (g/dL) Final HCT 10/09/2023 04:11:00 33.5 Below low normal 40.0-48.4 (%) Final MCV 10/09/2023 04:11:00 95.4 82.0-99.5 (fL) Final MCH 10/09/2023 04:11:00 30.5 27.0-34.0 (pg) Final MCHC 10/09/2023 04:11:00 31.9 32.0-36.0 (g/dL) Final RDW 10/09/2023 04:11:00 13.7 11.5-15.5 (%) Final Platelets 10/09/2023 04:11:00 201 140-400 (K/uL) Final MPV 10/09/2023 04:11:00 9.0 6.6-11.1 (fL) Final Nucleated erythrocytes/100 leukocytes [Ratio] in Blood by Automated count 10/09/2023 04:11:00 0 <=0 (/100 WBCs) Final Performing Location LABORATORY [facility] - [address] [place] [address]
--- OUTSIDE RECORDS SUMMARY | 2024-01-29 20:44 | External Medical Summary ---
Author Name Unknown Address Unknown Organization : Laboratory Report Ordering Provider Test Date Status NORY GOMEZ 10/07/2023 11:25:19 Final Observation Date Value Abnormality Reference (Units ) Status Glucose Point of Care 10/07/2023 11:25:19 225 Above high normal 70-120 (mg/dL) Final Performing Location
--- OUTSIDE RECORDS SUMMARY | 2024-01-29 20:44 | External Medical Summary | Summary of Care ---
Author Name Unknown Organization [facility] [address] [facility] [address] Phone [phone] Care Team Providers Care Biscuitware Brusher Name Role Phone Kaiser Amanda MD Primary Care Provider [phone] Reason for Visit * Reason Onset Date Comments Test Results 10/06/202310/05 Encounter Details Date Type Department Care Team (Late st Contact Info) Description 10/06/2023 [facility] [place] [phone] Kaiser Amanda MD [facility] [place] [address] Test Results (10/05) Allergies Active Allergy Reactions Criticality Noted Date Comments Cat Dander Itching 07/14/2016 documented as of this encounter (statuses as of 10/06/2023) Medications Medication Sig Dispensed Refills Start Date End Date Status OneTouch Ultra 2 w/Device KitIndications:Type 2 diabetes mellitus with hemoglobin A1c goal of less than 7.5% ([facility]) Testing blood sugars twice daily Dx: E11.9 1 Kit 11 06/06/2021 Active OneTouch Delica Lancets 30GIndications:Type 2 diabetes mellitus with hemoglobin A1c goal of less than 7.5% (HCC),Type 2 diabetes mellitus with polyneuropathy (HCC) Check BS once daily E11.9 100 Each 06/22/2021 Active Acetaminophen 325 MG Oral Tablet (Tylenol) Take 3 Tablets (975 mg) by mouth every 6 hours. 30 Tablet 04/18/2022 Active Additional Information Patient taking differently:975 mg Oral Q6H,As needed, Reported on 12/26/2022 Docusate Sodium 100 MG Oral Capsule (Colace) Take 1 Capsule (100 mg) by mouth in the morning and 1 Capsule (100 mg) before bedtime. 10 Capsule 04/18/2022 Active Polyethylene Glycol 3350 17 GM Oral Packet (Miralax) Take 1 Packet (17 g) by mouth in the morning. Do not start before April 19, 2022. 14 Each 04/19/2022 Active Additional Information Patient taking differently:17 g Oral Daily(AM),As needed, Reported on 12/26/2022 Vitamin D 25 MCG (1000 UT) Oral Tablet Take 1 Tablet (1,000 Units) by mouth daily at noon. 30 Tablet 3 04/18/2022 Active Mupirocin 2 % External Ointment (Bactroban) Apply topically to affected area 3 times a day. Apply to biopsy site on left shoulder twice daily as needed 22 g 1 07/26/2022 Active Additional Information Patient not taking.Reported on 09/27/2023 Mupirocin 2 % External Ointment (Bactroban) Apply to biopsy site on left shoulder twice daily 22 g 1 07/26/2022 Active Additional Information Patient not taking.Reported on 09/27/2023 Triamcinolone Acetonide 0.1 % External Cream (Aristocort) Apply to rash on abdomen twice daily as needed 80 g 5 10/19/2022 Active Cinacalcet HCl 30 MG Oral Tablet (Sensipar)Indication s:Hypercalcemia Take 1 tablet by mouth once daily 90 Tablet 3 12/21/2022 Active Iron 325 (65 Fe) MG Oral Tablet [...] 2 01/19/2023 Active Ketoconazole 2 % External Cream Apply to eyebrows twice daily 30 g 1 01/19/2023 Active Finasteride 5 MG Oral Tablet (Proscar) Take 1 Tablet by mouth in the morning. 90 Tablet 3 01/23/2023 Active Ketoconazole 2 % External Shampoo (Nizoral) APPLY TO SCALP AND EYEBROWS DAILY- LATHER, WAIT 5 MINUTES, THEN RINSE 120 mL 07/06/2023 Active OneTouch Verio In Vitro Strip (Glucose Blood)Indications: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 ([facility]),Type 2 diabetes mellitus with hemoglobin A1c goal of less than 7.5% ([facility]) USE STRIP TO CHECK GLUCOSE ONCE DAILY 100 Strip 3 07/16/2023 Active metFORMIN HCl 1000 MG Oral Tablet (Glucophage) TAKE 1 TABLET BY MOUTH TWICE A DAY WITH BREAKFAST AND DINNER 180 Tablet 1 07/21/2023 Active Nitroglycerin 0.4 MG Sublingual Tablet Sublingual (Nitrostat)Indicatio ns:Stable angina ([facility]) Place 1 Tablet under the tongue [...] the morning. 90 Tablet 3 08/14/2023 Active Tamsulosin HCl 0.4 MG Oral Capsule (Flomax) Take 1 Capsule by mouth in the morning. 09/12/2023 Active Losartan Potassium 25 MG Oral Tablet (Cozaar) Take 1 Tablet by mouth in the morning. 90 Tablet 3 10/05/2023 Active Metoprolol Succinate ER 25 MG Oral Tablet Extended Release 24 Hour (toPROL XL) Take 1 Tablet by mouth at bedtime. 90 Tablet 3 10/05/2023 Active Amoxicillin-Pot Clavulanate 875-125 MG Oral Tablet (Augmentin)Indicatio ns:Acute cystitis with hematuria Take 1 Tablet by mouth in the morning and 1 Tablet before bedtime. Do all this for 10 days. 20 Tablet 10/06/2023 Active documented as of this encounter (statuses as of 10/06/2023) Active Problems Problem Noted Date Diagnosed Date Subdural hematoma 09/09/2023 Dysautonomia 07/26/2023 Paraplegia 08/23/2022 Syncope and collapse 04/15/2022 Clavicle fracture 04/15/2022 Elevated lactic acid level 04/15/2022 Osteoporosis 07/06/2021 Orthostatic hypotension 05/25/2021 S/P right hip fracture 09/01/2020 Fall 09/01/2020 Unspecified injury at unspec ified level of cervical spinal cord, sequela 07/19/2020 Hyperparathyroidism 03/27/2019 Hypercalcemia 12/16/2018 Anticoagulated on warfarin 12/16/2018 Ambulatory dysfunction 12/04/2018 Generalized weakness 12/04/2018 History of DVT (deep vein thrombosis) [...] as of this encounter (statuses as of 10/06/2023) Resolved Problems Problem Noted Date Diagnosed Date Resolved Date Permanent atrial fibrillation 12/19/2021 06/09/2022 Supratherapeutic INR 11/26/2021 022 COVID-19 virus infection 11/14/2021 Chest pain 05/25/2021 05/26/2021 Non-Hodgkin lymphoma, unspec ified, unspecified site 09/27/2020 04/11/2021 Hodgkin lymphoma, unspecifie d, unspecified site 12/16/2018 04/11/2019 Severe dehydration 12/16/2018 9 Lactic acidosis 12/16/2018 11/30/2021 Pressure injury, unstageable 12/16/2018 03/27/2019 Quadriplegia 12/05/2018 06/09/2022 Complicated UTI (urinary tract infection) 12/04/2018 12/24/2018 Severe malnutrition 12/01/2018 12/06/19 Acute venous embolism and th rombosis of unspecified deep vessels of lower extremity 05/04/2008 08/23/2016 documented as of this encounter (statuses as of 10/06/2023) Immunizations Name Administration Dates Next Due COVID-19 [...] 65+ yrs 03/05/2019 TD, Preservative Free 12/11/2019 TDAP (age 11 and older)(Adacel) 06/03/2014 Varicella Zoster Vaccine (Adult) 09/27/2011 Zoster [...] money to buy more. Never true 07/26/19 Within the past 12 months, t he [...] Telephone Encounter - Mary Garnett LPN - 10/06/2023 12:55 PM EDT Pt's informed * Telephone Encounter - Mary Garnett LPN - 10/06/2023 8:32 AM EDT Left message for the patient to call the office at [phone] Amanda's msg * Telephone Encounter - Kaiser Amanda MD - 10/06/2023 7:35 AM EDT Please advise that based on urine results so far, I will start augmentin and change if needed. [employer] documented in this encounter Plan of Treatment Upcoming Encounters Date Type Department Care Team (Late st Contact Info) Description 10/10/2023 8:30 AM EDT Laboratory Lab Mobile Phlebotomy [place] [address] [place] [address] Gl, Gml Mobile Home Draw [address] [place], [place] [id number] 10/22/2023 9:15 AM EDT Office Visit Urology [place] [address] [place] [address] [place] [id number] Bert Boogie Jr., MD [address] [place] [address] [place] [address] 11/07/2023 2:30 PM EDT Office Visit Neurology, [place] [address] [place] [id number] Ruth Lobo PA-C [address] [place] [id number] 01/21/2024 2:00 PM EDT Office Visit Endocrinology, [place] [address] [place], [place] [phone] Sakina Jones MD [address] [place] [address] 01/25/2024 3:30 PM EDT Office Visit [facility] Callie Ernst [address] [place], [place] [address] Laney Hogue MD [address] [place] [address] 02/25/2024 9:20 AM EDT [facility] [address] [place] [phone] Kaiser Amanda MD [address] [place] [address] Scheduled Procedures Name Priority Associated Diagnoses Date/Ti [...] CUFF VALIDATION YEARLY 12/27/2023 12/26/2022 Albumin/Creatinine Ratio 01/11/202401/10/2 023, 07/07/2021, 12/16/2018, Additional history exists HbA1c 01/26/2024 07/26/2023, 01/12, 04/16/2022, Additional history exists B-12 07/25/2024 07/26/2023, 02/13, 11/15/2021, Additional history exists Diabetic Foot Exam 07/25/2024 07/26/2023, 0 06/09/2022, 04/11/2021, Additional history exists GFR 09/18/2024 09/19/2023, 05/0 05/2023, 09/11/2023, Additional history exists DXA Scan 01/25/2025 01/25/2023, 09/0 01/2021, 12/10/2018 Colonoscopy 03/16/2025 03/16/2022, 1107/2021, 08/06/2009 [...] D LEVEL ONCE IN A LIFETIME-USE SMARTSET# [id number] Completed 07/26/2023, 02/26/2023, 01/23/2023, Additional history exists [...] this encounter Medical Devices Implanted Type Area Vp Rheumatology Device Identifier Shelf Expiration Date Model / Serial / Lot Cement Bone Simplex Hv & G - [id number] Implanted:Qty: 2 on 09/02/2020 by Gianni Hubbard MD at OR [facility] Right: Hip LUDY : OR[employer] 08/11/2021 [id number] / / [id number] Spacer Ring Aclde Distal Lg 14 - [id number] Implanted:Qty: 1 on 09/02/2020 by Gianni Hubbard MD at OR [facility] Right: Hip LUDY : ORTHOPA[employer] 11/25/2024 [id number] / / Accolade C Cs 127 6 37/158 - [id number] Implanted:Qty: 1 on 09/02/2020 by Gianni Hubbard MD at OR [facility] Right: Hip [employer]UD[employer] : ORTHOPA[employer] 05/29/2023 [id number] / / [id number] Hip Cocr Lfit Head V40 28/+4 - [id number] Implanted:Qty: 1 on 09/02/2020 by Gianni Hubbard MD at OR [facility] Right: Hip [employer]UD[employer] : ORTHOPA[employer] 11/15/2024 6260-9-228 / / [id number] Hip Head Bipol Uhr Uni 28x52 - [id number] Implanted:Qty: 1 on 09/02/2020 by Gianni Hubbard MD at OR [facility] Right: Hip [employer]UD[employer] : ORTHOPA[employer] 11/25/2024 [id number] / / [id number] Lens Intraoc 17.5 - [id number] - [id number] Implanted:Qty: 1 on 03/23/2022 by Rad oMrgan MD at OR [facility] Left: Eye [employer]USCH & [employer]OMB 10/11/2026 [id number] / [id number] / [id number] Lens Intraoc 18.0 - [id number] - [id number] Implanted:Qty: 1 on 03/30/2022 by Rad Morgan MD at OR [facility] Right: Eye BAUSCH & LOMB 01/11/2027 [id number] / [id number] / [id number] documented as of this encounter Visit Diagnoses Diagnosis Acute cystitis with hematuria- Primary Acute cystitis documented in this encounter Advance Directives * Full Code (Latest Code Status on File) Date Activated Date Inactivated Comments 09/09/2023 8:14 [...] Care Power of Attor jus? No * Full Code Date Activated Date Inactivated Comments 11/26/2021 11:29 PM 11/30/2021 5:09 PM This order reflects the patients wishes and were consensually agreed upon. Question Answer Comments Discussion of Advance Directives occurred with: Patient/Family Care Teams Biscuitware Brusher Relationship Specialty Start Date End Date Kaiser Amanda MD [address] [place] [address] PCP - General Family Medicine 04/11/21 documented as of this encounter
--- OUTSIDE RECORDS SUMMARY | 2024-01-29 20:44 | External Medical Summary ---
Author Name Unknown Address Unknown Organization K1F:LABORATORY [address] [place] [address] Laboratory Report Ordering Provider Test Date Status ZACHERY BENNETT 10/06/2023 19:27:47 Final Observation Date Value Abnormality Reference (Units ) Status Bacteria identified in Specimen by Culture 10/06/2023 19:27:47 No growth Final Test: Culture, Blood
[facility] yifan Source: Blood, Venous
Specimen Type: Blood
Specimen Date: 10/06/20231926
Result Date: 10/11/20232000
Result Status: Final result
Resulting Lab: [facility]
[address] [place] [address]
[place] [address]

CULTURE

No growth

null Performing Location LABORATORY [address] [place] [address]
--- OUTSIDE RECORDS SUMMARY | 2024-01-29 20:44 | External Medical Summary ---
Author Name Unknown Address Unknown Organization : Laboratory Report Ordering Provider Test Date Status NORY GOMEZ 10/07/2023 17:16:19 Final Observation Date Value Abnormality Reference (Units ) Status Glucose Point of Care 10/07/2023 17:16:19 185 Above high normal 70-120 (mg/dL) Final Performing Location
--- OUTSIDE RECORDS SUMMARY | 2024-01-29 20:44 | External Medical Summary ---
Author Name Unknown Address Unknown Organization K1F:LAB[facility]AT[facility] - [address] [place] [address] Laboratory Report Ordering Provider Test Date Status ZACHERY BENNETT 10/06/2023 21:59:45 Final Observation Date Value Abnormality Reference (Units ) Status Lactic Acid 10/06/2023 21:59:45 3.6 Above high normal 0.4-2.0 (mmol/L) Final Performing Location LAB[facility]AT[facility] - [address] [place] [address]
--- OUTSIDE RECORDS SUMMARY | 2024-01-29 20:44 | External Medical Summary | Summary of Care ---
Author Name Unknown Organization [facility] Address [address] [facility] [place] [address] Phone [phone] Care Team Providers Care Lean Manufacturing Coordinator Name Role Phone Kaiser Amanda MD Primary Care Provider [phone] Reason for Referral * Precert (Within 10 days (routine)) - Authorized Specialty Diagnoses / Procedures Referred By Contac t Referred To Contact Radiology Diagnoses Hospital discharge follow-up Cardiomyopathy, unspecified type (HCC) Abnormal echocardiogram Chest pain, unspecified type Procedures NM MYOCARD PERF IMG SPECT MULT STUDIES WITH PHARM INTERV Stefani Mooney CRNP [address] [place] [address] Referral ID Status Reason Start Date Expiration Date V isits Requested Visits Authorized [id number] Authorized Precert 10/05/2023 999 999 * Evaluate & Treat - Unlimited Visits (Within 10 days (routine)) - Authorized Specialty Diagnoses / Procedures Referred By Contac t Referred To Contact Pharmacist / Pharmacy Diagnoses Cardiomyopathy, unspecified type (HCC) Stefani Mooney CRNP [address] [place] [address] Referral ID Status Reason Start Date Expiration Date Visits Requested Visits Authorized [id number] Authorized Specialty Services Required 10/05/2023 99 99 Question Answer Referring Provider Role: Specialist Specialty: Cardio Reason for Referral: HF Referral Priority Within 10 days (routine) Where should this appointment be scheduled? [facility] Comments Pharmacist Medication Therapy Management: Minimum frequency patient should be seen in person for medication management: as appropriate per clinical condition and patient status By my signature, I understand that my patient Lewis Alarcon will have his medication therapy managed by the [facility] ([facility]) per established policies, procedures, and protocols. I also certify that this referral may serve as an initiation of service for the management of drug therapy in the above noted patient. [facility] providers will be responsible for scheduling patient visits, obtaining appropriate laboratory studies, and adjusting medication management therapy per patient's need, in addition to those roles spelled out in the clinic policy, procedures, and drug management protocols. I understand that the service provided by the [facility] Clinic is voluntary and have informed patient that they can refuse the service at their discretion. I am aware that the [facility] Clinic will provide me with a copy of the patient encounter via my [employer]. I authorize the [facility] Clinic to carry out these activities on my behalf. I consider this program to be a necessary part of the patient's medical care. PHILIP Rodriguez Reason for Visit * Reason Comments Follow Up * Evaluate & Treat - Unlimited Visits (Within 10 days (routine)) - Authorized Specialty Diagnoses / Procedures Referred By Contact Referred To Contact Cardiovascular Medicine / Cardiology Diagnoses HFrEF (heart failure with reduced ejection fraction) ([facility]) Kaiser Amanda MD [address] [place] [address] Referral ID Status Reason Start Date Expiration Date Visits Requested Visits Authorized [id number] Authorized Specialty Services Required 09/27/2023 999 999 Encounter Details Date Type Department Care Team (Late st Contact Info) Description 10/05/2023 11:30 AM EDT Office Visit Rolo Carlson [address] [place] [address] [facility] [address] [facility] [id number] Cardiomyopathy, unspecified type ([facility])*; Hospital discharge follow-up; Abnormal echocardiogram; Chest pain, unspecified type Allergies Active Allergy Reactions Criticality Noted Date Comments Cat Dander Itching 07/14/2016 documented as of this encounter (statuses as of 10/05/2023) Medications Medication Sig Dispensed Refills Start Date End Date Status [employer] Ultra 2 w/Device KitIndications:Type 2 diabetes mellitus with hemoglobin A1c goal of less than 7.5% ([facility]) Testing blood sugars twice daily Dx: E11.9 1 Kit 11 2 Active [employer] Delica Lancets 30GIndications:Type 2 diabetes mellitus with hemoglobin A1c goal of less than 7.5% ([facility]),Type 2 diabetes mellitus with polyneuropathy ([facility]) Check BS once daily E11.9 100 Each 2 Active Acetaminophen 325 MG Oral Tablet (Tylenol) Take 3 Tablets (975 mg) by mouth every 6 hours. 30 Tablet 2 Active Additional Information Patient taking differently:975 mg Oral Q6H,As needed, Reported on 12/26/2022 Docusate Sodium 100 MG Oral Capsule (Colace) Take 1 Capsule (100 mg) by mouth in the morning and 1 Capsule (100 mg) before bedtime. 10 Capsule 2 Active Polyethylene Glycol 3350 17 GM Oral Packet (Miralax) Take 1 Packet (17 g) by mouth in the morning. Do not start before April 19, 2022. 14 Each 2 Active Additional Information Patient taking differently:17 g Oral Daily(AM),As needed, Reported on 12/26/2022 Vitamin D 25 MCG (1000 UT) Oral Tablet Take 1 Tablet (1,000 Units) by mouth daily at noon. 30 Tablet 3 2 Active Mupirocin 2 % External Ointment (Bactroban) Apply topically to affected area 3 times a day. Apply to biopsy site on left shoulder twice daily as needed 22 g 1 3 Active Additional Information Patient not taking.Reported on 09/27/2023 Mupirocin 2 % External Ointment (Bactroban) Apply to biopsy site on left shoulder twice daily 22 g 1 3 Active Additional Information Patient not taking.Reported on 09/27/2023 Triamcinolone Acetonide 0.1 % External Cream (Aristocort) Apply to rash on abdomen twice daily as needed 80 g 5 3 Active Cinacalcet HCl 30 MG Oral Tablet (Sensipar)Indicatio ns:Hypercalcemia Take 1 tablet by mouth once daily 90 Tablet 3 3 Active Iron 325 (65 Fe) MG Oral [...] 2 3 Active Ketoconazole 2 % External Cream Apply to eyebrows twice daily 30 g 1 3 Active Finasteride 5 MG Oral Tablet (Proscar) Take 1 Tablet by mouth in the morning. 90 Tablet 3 3 Active Ketoconazole 2 % External Shampoo (Nizoral) APPLY TO SCALP AND EYEBROWS DAILY- LATHER, WAIT 5 MINUTES, THEN RINSE 120 mL 4 Active OneTouch Verio In Vitro Strip (Glucose Blood)Indications:T ype 2 diabetes mellitus with polyneuropathy ([facility]),Type 2 diabetes mellitus with hemoglobin A1c goal of less than 7.5% ([facility]) USE STRIP TO CHECK GLUCOSE ONCE DAILY 100 Strip 3 4 Active metFORMIN HCl 1000 MG Oral Tablet (Glucophage) TAKE 1 TABLET BY MOUTH TWICE A DAY WITH BREAKFAST AND DINNER 180 Tablet 1 4 Active Nitroglycerin 0.4 MG Sublingual Tablet Sublingual (Nitrostat)Indicati ons:Stable angina ([facility]) Place 1 Tablet under the tongue [...] the morning. 90 Tablet 3 4 Active Tamsulosin HCl 0.4 MG Oral Capsule (Flomax) Take 1 Capsule by mouth in the morning. 4 Active Losartan Potassium 25 MG Oral Tablet (Cozaar) Take 1 Tablet by mouth in the morning. 90 Tablet 3 4 Active Metoprolol Succinate ER 25 MG Oral Tablet Extended Release 24 Hour (toPROL XL) Take 1 Tablet by mouth at bedtime. 90 Tablet 3 4 Active Metoprolol Succinate ER 25 MG Oral Tablet Extended Release 24 Hour (toPROL XL) Take 1 Tablet by mouth in the morning. 90 Tablet 3 4 10/05/19 24 Discontinued documented as of this encounter (statuses as of 10/05/2023) Active Problems Problem Noted Date Diagnosed Date [...] as of this encounter (statuses as of 10/05/2023) Resolved Problems Problem Noted Date Diagnosed Date [...] as of this encounter (statuses as of 10/05/2023) Immunizations Name Administration Dates Next Due COVID-19 mRNA, LNP-s, No Pre serve, 2-Dose Series ([employer]) 04/23/2021,08/09/2020,07/12/2020 Covid-19, Mrna, Lnp-s, Pf, B ivalent, [...] Sign Reading Time Taken Comments Blood Pressure 121/82 10/05/2023 11:19 AM EDT Pulse 100 10/05/2023 11:19 AM EDT Temperature - - Respiratory Rate - - Oxygen Saturation 94% 10/05/2023 11:19 AM EDT Inhaled Oxygen Concentration - - Weight 73 kg (161 lb) 10/05/2023 11:19 AM EDT Height 172.7 cm (5' 8") 10/05/2023 11:19 AM EDT Body Mass Index 24.48 10/05/2023 11:19 AM EDT documented in this encounter Functional [...] No 09/09/2023 documented as of this encounter Patient Instructions * Patient Instructions* Stefani Mooney CRNP - 10/05/2023 11:57 AM EDT Start Metoprolol Succinate 25 mg at bedtime. Start Losartan 25 mg daily. Blood work in 2 weeks. See our pharmacist. Changes positions slowly. Stay hydrated with water. documented in this encounter Progress Notes * Stefani Mooney CRNP - 10/05/2023 11:30 AM EDT 10/05/2023 Cardiology Follow Up Primary Lead Neurodiagnostic Technologist: TBD Cardiac Problems: 1.New Cardiomyopathy -EF 32% 09/06/2023 -EF 55-59% 04/2022 2. Hx Subarachnoid Hemorrhage 08/2023 3.Non-Hodgkins Lymphoma 4.Hx PE -on Coumadin HPI: Lewis Alarcon is a 72 year old male who is here for Cardiology follow up. Referred by PCP forevaluation of HFrEF. Accompanied by his . Utilized a wheelchair. [place] [facility] [place]09[place]07[place]23 with a fall and intracranial hemorrhage. Echo during admission showed reduced EF. CT showed a small right front subarachnoid hemorrhage Blood thinner discontinued at that time. Fell again and admitted to [facility] 09/08-09/10. He was home for only two days. Discharged to [facility] for Rehab. Has been home since 09/24/2023. Lightheaded and dizzy. Seeing Neurology next month. He is on Keprra for seizure prophylaxis. Denieshaving a seizure since the . Has home PT/OT. Just restarted Coumadin this week. No fevers/chills. Burning with urination. No frequency or urgency. Denies odor, back pain, pubic pain. Family is concerned for UTI. REVIEW OF SYSTEMS: See HPI for pertinent positives. All others negative other than those noted in the HPI. CONSTITUTIONAL: No change in weight, No weakness, No fatigue and No fevers, No sweats or chills. PULMONARY: No cough, sputum, or hemoptysis, No [...] Current Outpatient Medications Medication Sig Dispense Refill Acetaminophen 325 MG Oral Tablet (Tylenol) Take 3 Tablets (975 mg) by mouth every 6 hours. (Patient taking differently: Take 3 Tablets by mouth every 6 hours. As needed) 30 Tablet 0 Losartan Potassium 25 MG Oral Tablet (Cozaar) Take 1 Tablet by mouth in the morning. 90 Tablet 3 Metoprolol Succinate ER 25 MG Oral Tablet Extended Release 24 Hour (toPROL XL) Take 1 Tablet by mouth at bedtime. 90 Tablet 3 nGAP Ultra 2 w/Device Kit Testing blood sugars twice daily Dx: E11.9 1 Kit 11 nGAP Delica Lancets 30G Check BS once daily E11.9 100 Each 0 Docusate Sodium 100 MG Oral Capsule (Colace) Take 1 Capsule (100 mg) by mouth in the morning and 1 Capsule (100 mg) before bedtime. 10 Capsule 0 Polyethylene Glycol 3350 17 GM Oral Packet (Miralax) Take 1 Packet (17 g) by mouth in the morning. Do not start before April 19, 2022. (Patient taking differently: Take 1 Packet by mouth in the morning. As needed.) 14 Each 0 Vitamin D 25 MCG (1000 UT) Oral Tablet Take 1 Tablet (1,000 Units) by mouth daily at noon. 30 Tablet 3 Mupirocin 2 % External Ointment (Bactroban) Apply topically to affected area 3 times a day. Apply to biopsy site on left shoulder twice daily as needed (Patient not taking: Reported on 09/27/2023) 22 g 1 Mupirocin 2 % External Ointment (Bactroban) Apply to biopsy site on left shoulder twice daily (Patient not taking: Reported on 09/27/2023) 22 g 1 Triamcinolone Acetonide 0.1 % External Cream (Aristocort) Apply to rash on abdomen twice daily as needed 80 g 5 Cinacalcet HCl 30 MG Oral Tablet (Sensipar) Take 1 tablet by mouth once daily 90 Tablet 3 Iron 325 (65 Fe) [...] 60 g 2 Ketoconazole 2 % External Cream Apply to eyebrows twice daily 30 g 1 Finasteride 5 MG Oral Tablet (Proscar) Take 1 Tablet by mouth in the morning. 90 Tablet 3 Ketoconazole 2 % External Shampoo (Nizoral) APPLY TO SCALP AND EYEBROWS DAILY- LATHER, WAIT 5 MINUTES, THEN RINSE 120 mL 0 nGAP Verio In Vitro Strip (Glucose Blood) USE STRIP TO CHECK GLUCOSE ONCE DAILY 100 Strip 3 metFORMIN HCl 1000 MG Oral Tablet (Glucophage) TAKE 1 TABLET BY MOUTH TWICE A DAY WITH BREAKFAST AND DINNER 180 Tablet 1 Nitroglycerin 0.4 MG Sublingual [...] mouth in the morning. 90 Tablet 3 Tamsulosin HCl 0.4 MG Oral Capsule (Flomax) Take 1 Capsule by mouth in the morning. No current facility-administered medications for this visit. [...] Marital status: Tobacco Use Smoking status: Never Smokeless tobacco: Never Vaping Use Vaping status: Never Used Substance and Sexual Activity Alcohol use: Yes Comment: rarely Drug use: No Social Determinants of Health Food Insecurity: No Food Insecurity (07/26/2023) Hunger Vital Sign Worried About Running Out of Food in the Last Year: Never true Ran Out of Food in the Last Year: Never true OBJECTIVE/PHYSICAL EXAMINATION: BP 121/82 | Pulse 100 | Ht 1.727 m (5' 8") | Wt 73 kg (161 lb) | SpO2 94% | BMI 24.48 kg/m | BSA 1.87 m General: No acute distress. A+Ox3. +Frail [...] insight. DATA Labs & Imaging Reviewed Below: Echocardiogram 09/06/2023 Mildly dilated left ventricle with [...] normal systolic function. Mild pulmonary hypertension. ASSESSMENT/PLAN: 72 year old year old male 1. Hospital discharge follow-up -Frequent falls. Found to have a new subarachnoid hemorrhage in August. -Recently started back on Coumadin for history of PE. Denies abnormal bleeding. -Scheduled for s/u with Neurology. 2. Cardiomyopathy, unspecified type (HCC) -New reduced EF 32%. Previously 55-59%. -He is asymptomatic. Will obtain a nuclear stress test to rule out cause of ischemia. He is a fall risk and will not be able to ambulate on a treadmill. -Medical management recommended. -[facility] pharmacy referral placed. -Start Losartan 25 mg daily -Start Metoprolol Succinate 25 mg at bedtime. -Hesitant to start ARNi due to frequent falls and recent brain bleed. -Unable to use Jardiance due to frequent UTI's -Encouraged patient to change positions slowly, stay hydrated with water, and wear compression stockings. DISPOSITION: Follow up in 3 months or if symptoms worsen/fail to improve. All questions were answered to the patients satisfaction. Patient advised to report to ED with any and all emergencies. The patient agrees to the above plan and will call with additional questions or concerns. PHILIP Rodriguez Cardiology[address] [address] I spent a total of 55 minutes on the date of service in preparation, delivery, and documentation ofthe care provided to Lewis Alarcon excluding any time spent in the performance of separately billed services. This chart was completed in part utilizing [employer] Speech Voice Recognition Software. Grammatical errors, random [...] documented in this encounter Nursing Notes * Tia Gusman RN - 10/05/2023 11:19 AM EDT Examination Room: 2 Name: Lewis Alarcon Date of : (1950). Reason for Visit: routine follow Interim Hospitalization(s): recently discharged from [facility]. Having home care for rehab purposes Problems/Concerns: Has UTI. Waiting on meds Chest Pain/SOB: none Medication reviewed and list updated by memory. My [employer] [facility] is a way you can talk to your provider online through e-mail. Would you like to sign up? I can activate it for you? ALREADY ACTIVE Patient was instructed to not get up on the exam table/exam chair until directed and assisted by their provider; patient is to remain seated in the chair/ wheelchair/ exam table/ exam chair for fall prevention and safety reasons. Patient is aware to have assistance to step down off exam table/exam chair with personnel. Patient voiced full comprehension of instructions. Tia Gusman RN documented in this encounter Plan of Treatment Upcoming Encounters Date Type Department Care Team (Late st Contact Info) Description 10/10/2023 8:30 AM EDT Laboratory Lab [facility] [address] [facility] [address] Gl, Gml Mobile Home Draw [address] [facility] [place] [id number] 10/22/2023 9:15 AM EDT Office Visit Urology Aleidastephen RinaldiMichaelwn [address] [place] [address] [place] [address] Bert Boogie Jr., MD [address] [place] [address] [place] [address] 11/07/2023 2:30 PM EDT Office Visit Neurology, [place] [address] [place] [address] Ruth Lobo PA-C [address] [place] [address] 01/21/2024 2:00 PM EDT Office Visit Endocrinology, [place] [address] [place] [address] Sakina Jones MD [address], [place] [id number] 01/25/2024 3:30 PM EDT Office Visit [facility] [address] [place] [address] Laney Hogue MD [address] [place], [place] [phone] 02/25/2024 9:20 AM EDT Office Visit Family Practice, [place] [address] [place] [phone] Kaiser Amanda MD [address] [place] [address] Scheduled Orders Name Type Priority Associated Diagnoses Orde r Schedule BASIC METABOLIC PANEL Lab Routine Cardiomyopathy, unspecified type (HCC) Chest pain, unspecified type Abnormal echocardiogram Expected: 10/19/2023, Expires: 10/04/2024 NM MYOCARD PERF IMG SPECT MULT STUDIES WITH PHARM INTERV Cardiology Routine Hospital discharge follow-up Cardiomyopathy, unspecified type (HCC) Abnormal echocardiogram Chest pain, unspecified type Expected: 10/05/2023 (Approximate), Expires: 11/04/2024 Scheduled Procedures Name Priority Associated Diagnoses Date/Ti me COLONOSCOPY FLEXIBLE PROXIMA L DIAGNOSTIC Recall History of colonic polyps Scheduled Referrals Name Type Priority Associated Diagnoses Orde r Schedule PHARMACIST MEDS THERAPY MGMT REFERRAL OP Referral Within 10 days (routine) Cardiomyopathy, unspecified type (HCC) Ordered: 10/05/2023 Health Maintenance Due Date Last Done Comments [...] D LEVEL ONCE IN A LIFETIME-USE SMARTSET# [id number] Completed 07/26/2023, 02/26/2023, 01/23/2023, Additional history exists [...] this encounter Medical Devices Implanted Type Area Infusion Rn Device Identifier Shelf Expiration Date Model / Serial / Lot Cement Bone Simplex Hv & G - [id number] Implanted:Qty: 2 on 09/02/2020 by Gianni Hubbard MD at OR [facility] Right: Hip LUDY : [employer] 08/11/2021 [id number] / / [id number] Spacer Ring Aclde Distal Lg 14 - [id number] Implanted:Qty: 1 on 09/02/2020 by Gianni Hubbard MD at OR [facility] Right: Hip [employer] : [employer] 11/25/2024 [id number] / / Accolade C Cs 127 6 37/158 - [id number] Implanted:Qty: 1 on 09/02/2020 by Gianni Hubbard MD at OR [facility] Right: Hip [employer] : OR[employer] 05/29/2023 [id number] / / [id number] Hip Cocr Lfit Head V40 28/+4 - [id number] Implanted:Qty: 1 on 09/02/2020 by Gianni Hubbard MD at OR [facility] Right: Hip [employer] : OR[employer] 11/15/2024 [id number] / / [id number] Hip Head Bipol Uhr Uni 28x52 - [id number] Implanted:Qty: 1 on 09/02/2020 by Gianni Hubbard MD at OR [facility] Right: Hip [employer]UD[employer] : ORTH[employer] 11/25/2024 [id number] / / [id number] Lens Intraoc 17.5 - [id number] - [id number] Implanted:Qty: 1 on 03/23/2022 by Rad Morgan MD at OR [facility] Left: Eye [employer] 10/11/2026 [id number] / [id number] / [id number] Lens Intraoc 18.0 - [id number] - [id number] Implanted:Qty: 1 on 03/30/2022 by Rad Morgan MD at OR [facility] Right: Eye [employer] 01/11/2027 [id number] / [id number] / [id number] documented as of this encounter Visit Diagnoses Diagnosis Cardiomyopathy, unspecified type (HCC)- Primary Hospital discharge follow-up Other follow-up examination Abnormal echocardiogram Nonspecific (abnormal) findings on radiological and other examination of other intrathoracic organs Chest pain, unspecified type documented in this encounter Advance Directives [...] Advance Directives occurred with: Patient/Family Care Teams Lean Manufacturing Coordinator Relationship Specialty Start Date End Date Kaiser Amanda MD [address] [place] [address] PCP - General Family Medicine 04/11/21 documented as of this encounter
--- OUTSIDE RECORDS SUMMARY | 2024-01-29 20:44 | External Medical Summary | Summary of Care ---
Author Name Unknown Organization [facility] Address [address] [facility] [place] [address] Phone [phone] Care Team Providers Care Rubbish Collection Supervisor Name Role Phone Kaiser Amanda MD Primary Care Provider [phone] Encounter Details Date Type Department Care Team (Late st Contact Info) Description 10/08/2023 Orders Only PATIENT PORTAL DO NOT DELETE THIS DEPT USED BY [place] [id number] Allergies Active Allergy Reactions Criticality Noted Date Comments Cat Dander Itching 07/14/2016 documented as of this encounter (statuses as of 10/08/2023) Medications Medication Sig Dispensed Refills Start Date End Date Status OneTouch Ultra 2 w/Device KitIndications:Type 2 diabetes mellitus with hemoglobin A1c goal of less than 7.5% ([facility]) Testing blood sugars twice daily Dx: E11.9 1 Kit 11 06/06/2021 Suspended Additional Information OneTouch Delica Lancets 30GIndications:Type 2 diabetes mellitus with hemoglobin A1c goal of less than 7.5% (HCC),Type 2 diabetes mellitus with polyneuropathy (HCC) Check BS once daily E11.9 100 Each 06/22/2021 Suspended Additional Information Acetaminophen 325 MG Oral Tablet (Tylenol) Take 3 Tablets (975 mg) by mouth every 6 hours. 30 Tablet 04/18/2022 Suspended Additional Information Patient taking differently:975 mg Oral Q6H,As needed, Reported on 12/26/2022 Docusate Sodium 100 MG Oral Capsule (Colace) Take 1 Capsule (100 mg) by mouth in the morning and 1 Capsule (100 mg) before bedtime. 10 Capsule 04/18/2022 Suspended Additional Information Polyethylene Glycol 3350 17 GM Oral Packet (Miralax) Take 1 Packet (17 g) by mouth in the morning. Do not start before April 19, 2022. 14 Each 04/19/2022 Suspended Additional Information Patient taking differently:17 g OralDAILY PRN, Constipation, As needed, Reported on 10/07/2023 Vitamin D 25 MCG (1000 UT) Oral Tablet Take 1 Tablet (1,000 Units) by mouth daily at noon. 30 Tablet 3 04/18/2022 Suspended Additional Information Triamcinolone Acetonide 0.1 % External Cream (Aristocort) Apply to rash on abdomen twice daily as needed 80 g 5 10/19/2022 Suspended Additional Information Cinacalcet HCl 30 MG [...] 60 g 2 01/19/2023 Suspended Additional Information Finasteride 5 MG Oral Tablet (Proscar) Take 1 Tablet by mouth in the morning. 90 Tablet 3 01/23/2023 Suspended Additional Information Ketoconazole 2 % External Shampoo (Nizoral) APPLY TO SCALP AND EYEBROWS DAILY- LATHER, WAIT 5 MINUTES, THEN RINSE 120 mL 07/06/2023 Suspended Additional Information OneTouch Verio In Vitro Strip (Glucose Blood)Indications:T ype 2 diabetes mellitus with polyneuropathy ([facility]),Type 2 diabetes mellitus with hemoglobin A1c goal of less than 7.5% ([facility]) USE STRIP TO CHECK GLUCOSE ONCE [...] MG Sublingual Tablet Sublingual (Nitrostat)Indicati ons:Stable angina ([facility]) Place 1 Tablet under the tongue [...] 90 Tablet 3 08/14/2023 Suspended Additional Information Tamsulosin HCl 0.4 MG Oral Capsule (Flomax) Take 1 Capsule by mouth in the morning. 09/12/2023 Suspended Losartan Potassium 25 MG Oral Tablet (Cozaar) Take 1 Tablet by mouth in the morning. 90 Tablet 3 10/05/2023 Suspended Additional Information Metoprolol Succinate ER 25 MG Oral Tablet Extended Release 24 Hour (toPROL XL) Take 1 Tablet by mouth at bedtime. 90 Tablet 3 10/05/2023 Suspended Additional Information Amoxicillin-Pot Clavulanate 875-125 MG Oral Tablet (Augmentin)Indicati ons:Acute cystitis with hematuria Take 1 Tablet by mouth in the morning and 1 Tablet before bedtime. Do all this for 10 days. 20 Tablet 10/06/2023 Suspended Additional Information Warfarin Sodium 5 MG Oral Tablet (Coumadin) Take 1 Tablet by mouth in the morning. Suspended documented as of this encounter (statuses as of 10/08/2023) Active Problems Problem Noted Date Diagnosed Date Subdural hematoma 09/09/2023 Dysautonomia 07/26/2023 Paraplegia 08/23/2022 Syncope and collapse 04/15/2022 Clavicle fracture 04/15/2022 Elevated lactic acid level 04/15/2022 Osteoporosis 07/06/2021 Orthostatic hypotension 05/25/2021 S/P right hip fracture 09/01/2020 Fall 09/01/2020 Unspecified injury at unspec ified level of cervical spinal cord, sequela 07/19/2020 Hyperparathyroidism 03/27/2019 Hypercalcemia 12/16/2018 Anticoagulated on warfarin 12/16/2018 Complicated UTI (urinary tract infection) 2018 Ambulatory dysfunction 12/04/2018 Generalized weakness 12/04/2018 History [...] as of this encounter (statuses as of 10/08/2023) Resolved Problems Problem Noted Date Diagnosed Date Resolved Date Permanent atrial fibrillation 12/19/2021 06/09/2022 Supratherapeutic INR 11/26/2021 022 COVID-19 virus infection 11/14/2021 Chest pain 05/25/2021 05/26/2021 Non-Hodgkin lymphoma, unspec ified, unspecified site 09/27/2020 04/11/2021 Hodgkin lymphoma, unspecifie d, unspecified site 12/16/2018 04/11/2019 Severe dehydration 12/16/2018 9 Lactic acidosis 12/16/2018 11/30/2021 Pressure injury, unstageable 12/16/2018 03/27/2019 Quadriplegia 12/05/2018 06/09/2022 Severe malnutrition 12/01/2018 12/06/19 19 Acute venous embolism and th rombosis of unspecified deep vessels of lower extremity 05/04/2008 08/23/2016 documented as of this encounter (statuses as of 10/08/2023) Immunizations Name Administration Dates Next Due COVID-19 [...] EDT Laboratory Lab Mobile Phlebotomy [facility] [address] [place] [address] [facility], l Mobile Home Draw [address] [place] [address] 10/22/2023 9:15 AM EDT Office Visit Urology [place] [address] [place] [address] Bert Boogie Jr., MD [address] [place] [address] 11/07/2023 2:30 PM EDT Office Visit Neurology, [place] [address] [facility] [place] [address] Ruth Lobo PA-C [address] [facility] [place] [address] 01/21/2024 2:00 PM EDT Office Visit Endocrinology, [place] [address] [place], [place] [phone] Sakina Jones MD [address], [place] [phone] 01/25/2024 3:30 PM EDT Office Visit [facility] [address] [place] [address] Laney Hogue MD [address] [place] [address] 02/25/2024 9:20 AM EDT Office Visit Family [facility] [address] [facility] [place] [place] [phone] Kaiser Amanda MD 21 [facility] [place] [address] Scheduled Procedures Name Priority Associated Diagnoses Date/Ti [...] 04/16/2022, Additional history exists B-12 07/25/2024 07/26/2023, 10/05/2021, 11/15/2021, Additional history exists Diabetic Foot Exam 07/25/2024 07/26/2023, 0 06/09/2022, 04/11/2021, Additional history exists GFR 10/07/2024 10/08/2023, 2 10/2023, 10/06/2023, Additional history exists DXA Scan 01/25/2025 01/25/2023, [...] D LEVEL ONCE IN A LIFETIME-USE SMARTSET# [id number] Completed 07/26/2023, 02/26/2023, 01/23/2023, Additional history exists [...] this encounter Medical Devices Implanted Type Area Halfway House Counselor Device Identifier Shelf Expiration Date Model / Serial / Lot Cement Bone Simplex Hv & G - [id number] Implanted:Qty: 2 on 09/02/2020 by Gianni Hubbard MD at OR [facility] Right: Hip LUDY : ORTHOPAEDICS 08/11/2021 6195-1-010 / / [id number] Spacer Ring Aclde Distal Lg 14 - [id number] Implanted:Qty: 1 on 09/02/2020 by Gianni Hubbard MD at OR [facility] Right: Hip LUDY : ORTHOPAEDICS 11/25/2024 [id number] / / Accolade C Cs 127 6 37/158 - [id number] Implanted:Qty: 1 on 09/02/2020 by Gianni Hubbard MD at OR [facility] Right: Hip LUDY : ORTHOPAEDICS 05/29/2023 [id number] / / [id number] Hip Cocr Lfit Head V40 28/+4 - [id number] Implanted:Qty: 1 on 09/02/2020 by Gianni Hubbard MD at OR [facility] Right: Hip LUDY : ORTHOPAEDICS 11/15/2024 6260-9-228 / / [id number] Hip Head Bipol Uhr Uni 28x52 - [id number] Implanted:Qty: 1 on 09/02/2020 by Gianni Hubbard MD at OR [facility] Right: Hip LUDY : ORTHOPAEDICS 11/25/2024 UH1-52-28 / / [id number] Lens Intraoc 17.5 - [id number] - [id number] Implanted:Qty: 1 on 03/23/2022 by Rad Morgan MD at OR [facility] Left: Eye BAUSCH & LOMB 10/11/2026 [id number] / [id number] / [id number] Lens Intraoc 18.0 - [id number] - [id number] Implanted:Qty: 1 on 03/30/2022 by Rad Morgan MD at OR [facility] Right: Eye BAUSCH & LOMB 01/11/2027 [id number] / [id number] / [id number] documented as of this encounter Additional Health Concerns Infection Onset Date Last Indicated Resolved Time Gastrointestinal Rule-Out 10/07/2023 10/07/2023 documented as of this encounter Advance Directives [...] Power of Attor jus? No Care Teams Rubbish Collection Supervisor Relationship Specialty Start Date End Date Kaiser Amanda MD [address] [place] [address] PCP - General Family Medicine 04/11/21 documented as of this encounter
--- OUTSIDE RECORDS SUMMARY | 2024-01-29 20:44 | External Medical Summary ---
Author Name Unknown Address Unknown Organization : Laboratory Report Ordering Provider Test Date Status NORY GOMEZ 10/07/2023 21:14:45 Final Observation Date Value Abnormality Reference (Units ) Status Glucose Point of Care 10/07/2023 21:14:45 161 Above high normal 70-120 (mg/dL) Final Performing Location
--- OUTSIDE RECORDS SUMMARY | 2024-01-29 20:44 | External Medical Summary ---
Author Name Unknown Address Unknown Organization K1F:[facility]AT[facility] - [address] [place] [address] Laboratory Report Ordering Provider Test Date Status ANA MARIA DIAZ 10/08/2023 03:54:00 Final Observation Date Value Abnormality Reference (Units ) Status Phosphate 10/08/2023 03:54:00 4.2 2.5-4.8 (m g/dL) Final Performing Location LAB[facility]ATORY [facility] - [address] [place] [address]
--- OUTSIDE RECORDS SUMMARY | 2024-01-29 20:44 | External Medical Summary | Summary of Care ---
Author Name Unknown Organization [facility] Address [address] [facility] [place] [address] Phone [phone] Care Team Providers Care Materials Management Supervisor Name Role Phone Kaiser Amanda MD Primary Care Provider [phone] Encounter Details Date Type Department Care Team (Late st Contact Info) Description 10/06/[address] [facility] [place] [phone] Kaiser Amanda MD 21 [facility] [place] [address] Allergies Active Allergy Reactions Criticality Noted Date Comments Cat Dander Itching 07/14/2016 documented as of this encounter (statuses as of 10/06/2023) Medications Medication Sig Dispensed Refills Start Date End Date Status OneTouch Ultra 2 w/Device KitIndications:Type 2 diabetes mellitus with hemoglobin A1c goal of less than 7.5% ([facility]) Testing blood sugars twice daily Dx: E11.9 1 Kit 11 06/06/2021 Active OneTouch Delica Lancets 30GIndications:Type 2 diabetes mellitus with hemoglobin A1c goal of less than 7.5% ([facility]),Type 2 diabetes mellitus with polyneuropathy ([facility]) Check BS once daily [...] Blood)Indications: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 ([facility]),Type 2 diabetes mellitus with hemoglobin A1c goal of less than 7.5% ([facility]) USE STRIP TO CHECK GLUCOSE ONCE DAILY 100 Strip 3 07/16/2023 Active metFORMIN HCl 1000 MG Oral Tablet (Glucophage) TAKE 1 TABLET BY MOUTH TWICE A DAY WITH BREAKFAST AND DINNER 180 Tablet 1 07/21/2023 Active Nitroglycerin 0.4 MG Sublingual Tablet Sublingual (Nitrostat)Indicatio ns:Stable angina ([facility]) Place 1 Tablet under [...] start augmentin and change if needed. Sentto marisela documented in this encounter Plan of Treatment Upcoming Encounters Date Type Department Care Team (Late st Contact Info) Description 10/10/2023 8:30 AM EDT Laboratory Lab [facility] [address] [facility] [place] [address] Gl, Gml Mobile Home Draw [address] [facility] [place] [phone] 10/22/2023 9:15 AM EDT Office Visit [facility] [place] [facility] [address] [place] [address] Bert Boogie Jr., MD [address] [place] [place] [address] 11/07/2023 2:30 PM EDT Office [facility] 21 [place] [address] Ruth Lobo PA-C [address] [place] [address] 01/21/2024 2:00 PM EDT Office Visit Endocrinology, [place] [address] [place], [place] [phone] Sakina Jones MD [address] [place], [place] [phone] 01/25/2024 3:30 PM EDT Office Visit [facility] [address] [place] [address] Laney Hogue MD 200 [place] [address] 02/25/2024 9:20 AM EDT Office Visit Family [facility] [place] [address] [place] [phone] Kaiser Amanda MD [address] [place] [address] Scheduled Procedures Name Priority Associated Diagnoses Date/Ti [...] D LEVEL ONCE IN A LIFETIME-USE SMARTSET# [id number] Completed 07/26/2023, 02/26/2023, 01/23/2023, Additional history exists [...] this encounter Medical Devices Implanted Type Area Electroless Plater Device Identifier Shelf Expiration Date Model / Serial / Lot Cement Bone Simplex Hv & G - [id number] Implanted:Qty: 2 on 09/02/2020 by Gianni Hubbard MD at OR [facility] Right: Hip LUDY : ORTHOPAEDICS 08/11/2021 6195-1-010 / / [id number] Spacer Ring Aclde Distal Lg 14 - [id number] Implanted:Qty: 1 on 09/02/2020 by Gianni Hubbard MD at OR [facility] Right: Hip LUDY : ORTHOPAEDICS 11/25/2024 [id number] / / Accolade C Cs 127 6 37/158 - [id number] Implanted:Qty: 1 on 09/02/2020 by Gianni Hubbard MD at OR [facility] Right: Hip LUDY : ORTHOPAEDICS 05/29/2023 [id number] / / [id number] Hip Cocr Lfit Head V40 28/+4 - [id number] Implanted:Qty: 1 on 09/02/2020 by Gianni Hubbard MD at OR [facility] Right: Hip LUDY : ORTHOPAEDICS 11/15/2024 6260-9-228 / / [id number] Hip Head Bipol Uhr Uni 28x52 - [id number] Implanted:Qty: 1 on 09/02/2020 by Gianni Hubbard MD at OR [facility] Right: Hip LUDY : ORTHOPAEDICS 11/25/2024 UH1-52-28 / / [id number] Lens Intraoc 17.5 - [id number] - [id number] Implanted:Qty: 1 on 03/23/2022 by Rad Morgan MD at OR [facility] Left: Eye BAUSCH & LOMB 10/11/2026 [id number] / [id number] / [id number] Lens Intraoc 18.0 - [id number] - [id number] Implanted:Qty: 1 on 03/30/2022 by Rad Morgan MD at OR [facility] Right: Eye BAUSCH & LOMB 01/11/2027 [id number] / [id number] / [id number] documented as of this encounter Visit Diagnoses [...] Advance Directives occurred with: Patient/Family Care Teams Materials Management Supervisor Relationship Specialty Start Date End Date Kaiser Amanda MD [address] [place] [phone] PCP - General Family Medicine 04/11/21 documented as of this encounter
--- OUTSIDE RECORDS SUMMARY | 2024-01-29 20:44 | External Medical Summary ---
Author Name Unknown Address Unknown Organization K1F:LAB[facility]AT[facility] - [address] [place] [address] Laboratory Report Ordering Provider Test Date Status LALIT BENNETTKATE 10/06/2023 19:27:47 Final Observation Date Value Abnormality Reference (Units ) Status Albumin 10/06/2023 19:27:47 3.5 Below low normal 3.8-5.0 (g/dL) Final AST (Aspartate aminotransferase) 10/06/2023 19:27:47 15 10-50 (U/L) Final Alk Phos 10/06/2023 19:27:47 60 35-130 (U/L) Final ALT (Alanine aminotransferase) 10/06/2023 19:27:47 11 10-50 (U/L) Final Bilirubin, Total 10/06/2023 19:27:47 0.3 <=1.2 (mg/dL) Final Bilirubin, Direct 10/06/2023 19:27:47 <0.2 0.0-0.3 (mg/dL) Final Protein 10/06/2023 19:27:47 6.2 6.0-8.3 (g/dL) Final Performing Location LABORATORY [facility] - [address] [place] [address]
--- OUTSIDE RECORDS SUMMARY | 2024-01-29 20:44 | External Medical Summary ---
Author Name Unknown Address Unknown Organization K1F:LABORATORY [facility] - [address] [place] [address] Laboratory Report Ordering Provider Test Date Status ZACHERY BENNETT 10/06/2023 19:27:47 Final Observation Date Value Abnormality Reference (Units ) Status Troponin T 10/06/2023 19:27:47 21 <=22 (ng/ L) Final Performing Location LABORATORY [facility] - [address] [place] [address]
--- OUTSIDE RECORDS SUMMARY | 2024-01-29 20:44 | External Medical Summary ---
Author Name Unknown Address Unknown Organization K1F:LABORATORY [facility] - [address] [place] [address] Laboratory Report Ordering Provider Test Date Status ANA MAIRA DIAZ 10/07/2023 05:02:00 Final Observation Date Value Abnormality Reference (Units ) Status BUN 10/07/2023 05:02:00 22 Above high normal 6-20 (mg/dL) Final Creatinine 10/07/2023 05:02:00 1.0 0.6-1.2 (mg/dL) Final Glomerular filtration rate/1.73 sq M.predicted [Volume Rate/Area] in Serum, Plasma or Blood by Creatinine-based formula (CKD-EPI) 10/07/2023 05:02:00 79 >=60 (mL/min) Final eGFR is calculated based on the CKD-EPI 2020 equation Sodium 10/07/2023 05:02:00 140 135-146 (m mol/L) Final Potassium 10/07/2023 05:02:00 3.8 3.5-5.1 (m mol/L) Final Cl 10/07/2023 05:02:00 106 98-107 (mm ol/L) Final CO2 10/07/2023 05:02:00 23 22-32 (mmo l/L) Final Anion gap 10/07/2023 05:02:00 11 7-15 (mmol /L) Final Glucose 10/07/2023 05:02:00 144 Above high normal 70 -120 (mg/dL) Final Calcium 10/07/2023 05:02:00 8.4 8.4-10.2 ( mg/dL) Final Performing Location [facility] [address] [facility] [place] [address]
--- OUTSIDE RECORDS SUMMARY | 2024-01-29 20:44 | External Medical Summary ---
Author Name Unknown Address Unknown Organization : Laboratory Report Ordering Provider Test Date Status NORY GOMEZ 10/08/2023 16:31:03 Final Observation Date Value Abnormality Reference (Units ) Status Glucose Point of Care 10/08/2023 16:31:03 189 Above high normal 70-120 (mg/dL) Final Performing Location
--- OUTSIDE RECORDS SUMMARY | 2024-01-29 20:44 | External Medical Summary ---
Author Name Unknown Address Unknown Organization K1F:[facility] - [address] [place] [address] Laboratory Report Ordering Provider Test Date Status CHRIS LINN 10/09/2023 04:11:00 Final Observation Date Value Abnormality Reference (Units ) Status BUN 10/09/2023 04:11:00 17 6-20 (mg/dL) Final Creatinine 10/09/2023 04:11:00 1.0 0.6-1.2 (mg/dL) Final Glomerular filtration rate/1.73 sq M.predicted [Volume Rate/Area] in Serum, Plasma or Blood by Creatinine-based formula (CKD-EPI) 10/09/2023 04:11:00 79 >=60 (mL/min) Final eGFR is calculated based on the CKD-EPI 2020 equation Sodium 10/09/2023 04:11:00 143 135-146 (m mol/L) Final Potassium 10/09/2023 04:11:00 4.8 3.5-5.1 (m mol/L) Final Cl 10/09/2023 04:11:00 108 Above high normal 98 -107 (mmol/L) Final CO2 10/09/2023 04:11:00 26 22-32 (mmo l/L) Final Anion gap 10/09/2023 04:11:00 9 7-15 (mmol /L) Final Glucose 10/09/2023 04:11:00 156 Above high normal 70 -120 (mg/dL) Final Calcium 10/09/2023 04:11:00 8.9 8.4-10.2 ( mg/dL) Final Performing Location LAB[facility]ATORY [facility] - [address] [place] [address]
--- OUTSIDE RECORDS SUMMARY | 2024-01-29 20:44 | External Medical Summary ---
Author Name Unknown Address Unknown Organization K1F:LABORATORY [facility] - [address] [place] [address] Laboratory Report Ordering Provider Test Date Status NORY GOMEZ 10/08/2023 03:54:00 Final Observation Date Value Abnormality Reference (Units ) Status WBC, Total 10/08/2023 03:54:00 6.43 4.00-10.80 (K/uL) Final RBC 10/08/2023 03:54:00 3.43 4.50-5.25 (M/uL) Final Hemoglobin 10/08/2023 03:54:00 10.7 Below low normal 14.0-16.8 (g/dL) Final HCT 10/08/2023 03:54:00 32.9 Below low normal 40.0-48.4 (%) Final MCV 10/08/2023 03:54:00 95.9 82.0-99.5 (fL) Final MCH 10/08/2023 03:54:00 31.2 27.0-34.0 (pg) Final MCHC 10/08/2023 03:54:00 32.5 32.0-36.0 (g/dL) Final RDW 10/08/2023 03:54:00 13.9 11.5-15.5 (%) Final Platelets 10/08/2023 03:54:00 199 140-400 (K/uL) Final MPV 10/08/2023 03:54:00 9.0 6.6-11.1 (fL) Final Nucleated erythrocytes/100 leukocytes [Ratio] in Blood by Automated count 10/08/2023 03:54:00 0 <=0 (/100 WBCs) Final Performing Location LABORATORY [facility] - [address] [place] [address]
--- OUTSIDE RECORDS SUMMARY | 2024-01-29 20:44 | External Medical Summary ---
Author Name Unknown Address Unknown Organization : Laboratory Report Ordering Provider Test Date Status NORY GOMEZ 10/08/2023 21:13:41 Final Observation Date Value Abnormality Reference (Units ) Status Glucose Point of Care 10/08/2023 21:13:41 147 Above high normal 70-120 (mg/dL) Final Performing Location
--- OUTSIDE RECORDS SUMMARY | 2024-01-29 20:44 | External Medical Summary ---
Author Name Unknown Address Unknown Organization : Laboratory Report Ordering Provider Test Date Status NORY GOMEZ 10/08/2023 08:03:20 Final Observation Date Value Abnormality Reference (Units ) Status Glucose Point of Care 10/08/2023 08:03:20 147 Above high normal 70-120 (mg/dL) Final Performing Location
--- OUTSIDE RECORDS SUMMARY | 2024-01-29 20:44 | External Medical Summary ---
Author Name Unknown Address Unknown Organization K1F:LABORATORY [facility] - [address] [place] [address] Laboratory Report Ordering Provider Test Date Status ZACHERY BENNETT 10/06/2023 19:27:47 Final Observation Date Value Abnormality Reference (Units ) Status WBC, Total 10/06/2023 19:27:47 8.75 4.00-10.80 (K/uL) Final RBC 10/06/2023 19:27:47 3.91 4.50-5.25 (M/uL) Final Hemoglobin 10/06/2023 19:27:47 12.4 Below low normal 14.0-16.8 (g/dL) Final HCT 10/06/2023 19:27:47 37.8 Below low normal 40.0-48.4 (%) Final MCV 10/06/2023 19:27:47 96.7 82.0-99.5 (fL) Final MCH 10/06/2023 19:27:47 31.7 27.0-34.0 (pg) Final MCHC 10/06/2023 19:27:47 32.8 32.0-36.0 (g/dL) Final RDW 10/06/2023 19:27:47 13.9 11.5-15.5 (%) Final Platelets 10/06/2023 19:27:47 251 140-400 (K/uL) Final MPV 10/06/2023 19:27:47 8.8 6.6-11.1 (fL) Final Nucleated erythrocytes/100 leukocytes [Ratio] in Blood by Automated count 10/06/2023 19:27:47 0 <=0 (/100 WBCs) Final Performing Location LABORATORY [facility] - [address] [place] [address]
--- OUTSIDE RECORDS SUMMARY | 2024-01-29 20:44 | External Medical Summary ---
Author Name Unknown Address Unknown Organization K1F:[facility] - [address] [place] [address] Laboratory Report Ordering Provider Test Date Status NORY GOMEZ 10/08/2023 03:54:00 Final Observation Date Value Abnormality Reference (Units ) Status BUN 10/08/2023 03:54:00 17 6-20 (mg/dL) Final Creatinine 10/08/2023 03:54:00 0.9 0.6-1.2 (mg/dL) Final Glomerular filtration rate/1.73 sq M.predicted [Volume Rate/Area] in Serum, Plasma or Blood by Creatinine-based formula (CKD-EPI) 10/08/2023 03:54:00 88 >=60 (mL/min) Final eGFR is calculated based on the CKD-EPI 2020 equation Sodium 10/08/2023 03:54:00 141 135-146 (m mol/L) Final Potassium 10/08/2023 03:54:00 3.9 3.5-5.1 (m mol/L) Final Cl 10/08/2023 03:54:00 107 98-107 (mm ol/L) Final CO2 10/08/2023 03:54:00 23 22-32 (mmo l/L) Final Anion gap 10/08/2023 03:54:00 11 7-15 (mmol /L) Final Glucose 10/08/2023 03:54:00 139 Above high normal 70 -120 (mg/dL) Final Calcium 10/08/2023 03:54:00 8.3 Below low normal 8.4 -10.2 (mg/dL) Final Performing Location LAB[facility]ATORY [facility] - [address] [place] [address]
--- OUTSIDE RECORDS SUMMARY | 2024-01-29 20:44 | External Medical Summary ---
Author Name Unknown Address Unknown Organization K1F:[facility] - [address] [place] [address] Laboratory Report Ordering Provider Test Date Status ANA MARIA DIAZ 10/07/2023 00:27:00 Final Observation Date Value Abnormality Reference (Units ) Status Lactic Acid 10/07/2023 00:27:00 1.7 0.4-2.0 (mmol/L) Final Performing Location LAB[facility]ATORY [facility] - [address] [place] [address]
--- OUTSIDE RECORDS SUMMARY | 2024-01-29 20:44 | External Medical Summary | Summary of Care ---
Author Name Unknown Organization [facility] Address [address] [facility] [address] Phone [phone] Care Team Providers Care Gas Inspector Name Role Phone Kaiser Amanda MD Primary Care Provider [phone] Reason for Visit * Reason Onset Date Comments Test Results 10/06/202310/05 Encounter Details Date Type Department Care Team (Late st Contact Info) Description 10/06[facility] [facility] [place] [address] Kaiser Amanda MD 21 [facility] [place] [address] Test Results (10/05) Allergies Active Allergy Reactions Criticality Noted Date Comments Cat Dander Itching 07/14/2016 documented as of this encounter (statuses as of 10/06/2023) Medications Medication Sig Dispensed Refills Start Date End Date Status OneTouch Ultra 2 w/Device KitIndications:Type 2 diabetes mellitus with hemoglobin A1c goal of less than 7.5% ([facility]) Testing blood sugars twice daily Dx: [...] Blood)Indications: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 ([facility]),Type 2 diabetes mellitus with hemoglobin A1c goal of less than 7.5% ([facility]) USE STRIP TO CHECK GLUCOSE ONCE DAILY 100 Strip 3 07/16/2023 Active metFORMIN HCl 1000 MG Oral Tablet (Glucophage) TAKE 1 TABLET BY MOUTH TWICE A DAY WITH BREAKFAST AND DINNER 180 Tablet 1 07/21/2023 Active Nitroglycerin 0.4 MG Sublingual Tablet Sublingual (Nitrostat)Indicatio ns:Stable angina ([facility]) Place 1 Tablet under the tongue [...] the patient to call the office at [phone] Amanda's msg * Telephone Encounter - Kaiser Amanda MD - 10/06/2023 7:35 AM EDT Please advise that based on urine results so far, I will start augmentin and change if needed. Sentto makaylat documented in this encounter Plan of Treatment Upcoming Encounters Date Type Department Care Team (Late st Contact Info) Description 10/10/2023 8:30 AM EDT Laboratory Lab Mobile Phlebotomy [facility] [address] [place], [place] [phone] Gl, Gml Mobile Home Draw [address] [place], [place] [phone] 10/22/2023 9:15 AM EDT Office Visit Urology [place] [address] [place], [place] [phone] Bert Boogie Jr., MD [address] [place] [address] 11/07/2023 2:30 PM EDT Office Visit Neurology, [place] [facility] [place], [place] [phone] Ruth Loob PA-C 21 [place] [address] 01/21/2024 2:00 PM EDT Office Visit Endocrinology, [place] [address] [place], [place] [phone] Sakina Jones MD [address] [place], [place] [phone] 01/25/2024 3:30 PM EDT Office Visit [facility] [address] [place], [place] [phone] Laney Hogue MD 200 [place], [place] [address] 02/25/2024 9:20 AM EDT Office Visit [facility] [address] [phone] Kaiser Amanda MD [address] [id number] Scheduled Procedures Name Priority Associated Diagnoses Date/Ti [...] 04/11/2021, Additional history exists GFR 09/18/2024 09/19/2023, 050 05/2023, 09/11/2023, Additional history exists DXA Scan [...] D LEVEL ONCE IN A LIFETIME-USE SMARTSET# [id number] Completed 07/26/2023, 02/26/2023, 01/23/2023, Additional history exists [...] this encounter Medical Devices Implanted Type Area Mechanic Welder Device Identifier Shelf Expiration Date Model / Serial / Lot Cement Bone Simplex Hv & G - [id number] Implanted:Qty: 2 on 09/02/2020 by Gianni Hubbard MD at OR [facility] Right: Hip LUDY : ORTHOPAEDICS 08/11/2021 6195-1-010 / / [id number] Spacer Ring Aclde Distal Lg 14 - [id number] Implanted:Qty: 1 on 09/02/2020 by Gianni Hubbard MD at OR [facility] Right: Hip LUDY : ORTHOPAEDICS 11/25/2024 [id number] / / Accolade C Cs 127 6 37/158 - [id number] Implanted:Qty: 1 on 09/02/2020 by Gianni Hubbard MD at OR [facility] Right: Hip LUDY : ORTHOPAEDICS 05/29/2023 [id number] / / [id number] Hip Cocr Lfit Head V40 28/+4 - [id number] Implanted:Qty: 1 on 09/02/2020 by Gianni Hubbard MD at OR [facility] Right: Hip LUDY : ORTHOPAEDICS 11/15/2024 6260-9-228 / / [id number] Hip Head Bipol [facility] 28x52 - [id number] Implanted:Qty: 1 on 09/02/2020 by Gianni Hubbard MD at OR [facility] Right: Hip LUDY : ORTHOPAEDICS 11/25/2024 1-52-28 / / [id number] Lens Intraoc 17.5 - [id number] - [id number] Implanted:Qty: 1 on 03/23/2022 by Rad Morgan MD at OR [facility] Left: Eye BAUSCH & LOMB 10/11/2026 [id number] / [id number] / [id number] Lens Intraoc 18.0 - [id number] - [id number] Implanted:Qty: 1 on 03/30/2022 by Rad Morgan MD at OR [facility] Right: Eye BAUSCH & LOMB 01/11/2027 [id number] / [id number] / [id number] documented as of this encounter Visit Diagnoses [...] Advance Directives occurred with: Patient/Family Care Teams Gas Inspector Relationship Specialty Start Date End Date Kaiser Amanda MD 21 [facility] [place] [id number] PCP - General Family Medicine 04/11/21 documented as of this encounter
--- OUTSIDE RECORDS SUMMARY | 2024-01-29 20:44 | External Medical Summary ---
Author Name Unknown Address Unknown Organization K1F:LABORATORY [facility] - [address] [place] [address] Laboratory Report Ordering Provider Test Date Status ANA MARIA DIAZ 10/07/2023 05:02:00 Final Observation Date Value Abnormality Reference (Units ) Status WBC, Total 10/07/2023 05:02:00 10.10 4.00-10.80 (K/uL) Final RBC 10/07/2023 05:02:00 3.54 4.50-5.25 (M/uL) Final Hemoglobin 10/07/2023 05:02:00 11.1 Below low normal 14.0-16.8 (g/dL) Final HCT 10/07/2023 05:02:00 33.6 Below low normal 40.0-48.4 (%) Final MCV 10/07/2023 05:02:00 94.9 82.0-99.5 (fL) Final MCH 10/07/2023 05:02:00 31.4 27.0-34.0 (pg) Final MCHC 10/07/2023 05:02:00 33.0 32.0-36.0 (g/dL) Final RDW 10/07/2023 05:02:00 13.9 11.5-15.5 (%) Final Platelets 10/07/2023 05:02:00 218 140-400 (K/uL) Final MPV 10/07/2023 05:02:00 8.8 6.6-11.1 (fL) Final Nucleated erythrocytes/100 leukocytes [Ratio] in Blood by Automated count 10/07/2023 05:02:00 0 <=0 (/100 WBCs) Final Performing Location LABORATORY [facility] - [address] [place] [place] [address]
--- OUTSIDE RECORDS SUMMARY | 2024-01-29 20:44 | External Medical Summary ---
Author Name Unknown Address Unknown Organization K1F:LABORATORY [facility] - [address] [place] [address] Laboratory Report Ordering Provider Test Date Status ZACHERY BENNETT 10/06/2023 19:27:47 Final Observation Date Value Abnormality Reference (Units ) Status BUN 10/06/2023 19:27:47 22 Above high normal 6-20 (mg/dL) Final Creatinine 10/06/2023 19:27:47 1.1 0.6-1.2 (mg/dL) Final Glomerular filtration rate/1.73 sq M.predicted [Volume Rate/Area] in Serum, Plasma or Blood by Creatinine-based formula (CKD-EPI) 10/06/2023 19:27:47 71 >=60 (mL/min) Final eGFR is calculated based on the CKD-EPI 2020 equation Sodium 10/06/2023 19:27:47 138 135-146 (m mol/L) Final Potassium 10/06/2023 19:27:47 4.6 3.5-5.1 (m mol/L) Final Cl 10/06/2023 19:27:47 102 98-107 (mm ol/L) Final CO2 10/06/2023 19:27:47 18 Below low normal 22- 32 (mmol/L) Final Anion gap 10/06/2023 19:27:47 18 Above high normal 7- 15 (mmol/L) Final Glucose 10/06/2023 19:27:47 199 Above high normal 70 -120 (mg/dL) Final Calcium 10/06/2023 19:27:47 8.7 8.4-10.2 ( mg/dL) Final Performing Location [facility] [place] [address]
--- OUTSIDE RECORDS SUMMARY | 2024-01-29 20:44 | External Medical Summary ---
Author Name Unknown Address Unknown Organization K1F:LABORATORY [facility] - [address] [place] [address] Laboratory Report Ordering Provider Test Date Status ZACHERY BENNETT 10/06/2023 21:59:45 Final Observation Date Value Abnormality Reference (Units ) Status Lactic Acid 10/06/2023 21:59:45 3.6 Above high normal 0.4-2.0 (mmol/L) Final Performing Location LABORATORY [facility] - [address] [place] [address]
--- OUTSIDE RECORDS SUMMARY | 2024-01-29 20:44 | External Medical Summary ---
Author Name Unknown Address Unknown Organization K1F:LABORATORY [facility] - [address] [place] [address] Laboratory Report Ordering Provider Test Date Status RAVINORTH [place] 10/08/2023 03:54:00 Final Warfarin Therapy
INR: 2 .0-3.0 conventional anticoagulation
INR: 2.5- 3.5 high intensity anticoagulation Observation Date Value Abnormality Reference (Units ) Status PT 10/08/2023 03:54:00 21.3 Above high normal 11 .6-15.2 (seconds) Final INR 10/08/2023 03:54:00 1.8 Above high normal 0. 8-1.2 Final Performing Location LABORATORY [facility] - [address] [place] [address]
--- OUTSIDE RECORDS SUMMARY | 2024-01-29 20:44 | External Medical Summary ---
Author Name Unknown Address Unknown Organization K1F:LABORATORY [facility] - [address] [place] [address] Laboratory Report Ordering Provider Test Date Status ANA MARIA DIAZ 10/08/2023 03:54:00 Final Observation Date Value Abnormality Reference (Units ) Status Magnesium 10/08/2023 03:54:00 1.4 Below low normal 1.5 -2.6 (mg/dL) Final Performing Location LABORATORY [facility] - [address] [place] [address]
--- OUTSIDE RECORDS SUMMARY | 2024-01-29 20:44 | External Medical Summary ---
Author Name Unknown Address Unknown Organization : Laboratory Report Ordering Provider Test Date Status NORY GOMEZ 10/08/2023 11:23:56 Final Observation Date Value Abnormality Reference (Units ) Status Glucose Point of Care 10/08/2023 11:23:56 215 Above high normal 70-120 (mg/dL) Final Performing Location
--- OUTSIDE RECORDS SUMMARY | 2024-01-29 20:44 | External Medical Summary ---
Author Name Unknown Address Unknown Organization K1F:LABORATORY [facility] - [address] [place] [address] Laboratory Report Ordering Provider Test Date Status ZACHERY BENNETT 10/06/2023 21:01:51 Final Please submit paper requisit ion from unit printer with sample and fill in the appropriate information:
null Observation Date Value Abnormality Reference (Units ) Status Body temperature 10/06/2023 21:01:51 37.0 (C) Final pH of Venous blood 10/06/2023 21:01:51 7.399 7.320-7.430 (units) Final Carbon dioxide [Partial pressure] in Venous blood 10/06/2023 21:01:51 34.2 Below low normal 40.0-60.0 (mmHg) Final Oxygen [Partial pressure] in Venous blood 10/06/2023 21:01:51 49.5 25.0-50.0 (mmHg) Final Base excess, Capillary 10/06/2023 21:01:51 -3.0 Below low normal -2.0-2.0 (mmol/L) Final Hemoglobin [Mass/volume] in Blood by Oximetry 10/06/2023 21:01:51 11.3 Below low normal 14.0-16.8 (g/dL) Final Oxyhemoglobin, Venous (FO2HB) 10/06/2023 21:01:51 80.8 40.0-85.0 (% total Hgb) Final Carboxyhemoglobin 10/06/2023 21:01:51 1.3 <=1.5 (% total Hgb) Final Smokers: 0-9.0 % Methemoglobin 10/06/2023 21:01:51 0.5 <= 1.5 (% total Hgb) Final Deoxyhemoglobin/Hemoglo bin.total in Venous blood 10/06/2023 21:01:51 17.4 (% total Hgb) Final Oxygen content in Venous blood 10/06/2023 21:01:51 12.9 7.0-18.0 (%vol) Final Bicarbonate, Venous, POC (i-STAT) 10/06/2023 21:01:51 20.7 Below low normal 23.0-31.0 (mmol/L) Final Performing Location LABORATORY [facility] - [address] [facility] [address]. [place] [address]
--- OUTSIDE RECORDS SUMMARY | 2024-01-29 20:44 | External Medical Summary ---
Author Name Unknown Address Unknown Organization K1F:LABORATORY [facility] - [address] [place] [address] Laboratory Report Ordering Provider Test Date Status ZACHERY BENNETT 10/06/2023 19:27:47 Final Observation Date Value Abnormality Reference (Units ) Status SYNC LEUKOCYTES IN BLOOD BY AUTOMATED COUNT 10/06/2023 19:27:47 8.75 4.00-10.80 (K/uL) Final Segs 10/06/2023 19:27:47 72.9 40.0-75.0 (%) Final Lymphs % 10/06/2023 19:27:47 18.9 18.0-42.0 (%) Final Monos 10/06/2023 19:27:47 6.3 1.0-11.0 (%) Final Eosinophils 10/06/2023 19:27:47 0.9 0.0-6.0 (%) Final Basos 10/06/2023 19:27:47 0.5 0.0-2.0 (%) Final Immature Granulocyte, Percent 10/06/2023 19:27:47 0.5 0.0-2.0 (%) Final Absolute Segs 10/06/2023 19:27:47 6.39 1.80-7.70 (K/uL) Final Lymphs, absolute 10/06/2023 19:27:47 1.65 1.00-4.80 (K/ul) Final Monos, Abs 10/06/2023 19:27:47 0.55 0.00-1.10 (K/uL) Final Eos, Abs 10/06/2023 19:27:47 0.08 0.00-0.70 (K/uL) Final Basos, Abs 10/06/2023 19:27:47 0.04 0.00-0.20 (K/uL) Final Immature Granulocytes, Number 10/06/2023 19:27:47 0.04 0.00-0.20 (K/uL) Final Performing Location LABORATORY [facility] - [address] [place] [address]
--- OUTSIDE RECORDS SUMMARY | 2024-01-29 20:45 | External Medical Summary | Summary of Care ---
Author Name Unknown Organization [facility] Address [address] [place] [address] Phone [phone] Care Team Providers Care Platemaker Name Role Phone Kaiser Amanda MD Primary Care Provider [phone] Reason for Referral * Ancillary Services (Within 10 days (routine)) - Authorized Specialty Diagnoses / Procedures Referred By Contac t Referred To Contact Dolly Driver Diagnoses History of pulmonary embolism History of DVT (deep vein thrombosis) Ema Wood, [facility] [address] [place] [address] Referral ID Status Reason Start Date Expiration Date Visits Requested Visits Authorized [id number] Authorized Ancillary Services Required 10/01/2023 999 999 Question Answer Referral Priority Within 10 days (routine) Where should this appointment be scheduled? Mario Comments Is Patient homebound? Yes All sections of this form must be filled out completely. Forms with missing or illegible information will be returned for completion. This form should not be modified in any way. Forms that have been modified will be returned. This form may not be submitted by a home health agency. It must be complete and submitted by the ordering provider. One full business day lead time is required and service will be scheduled based on the next service day for the [facility] Home Phlebotomy does not service every geographical location on a daily basis. Contact [facility] Client Services at to find out service days for a specific location. Medical Laboratory [facility] Patient Name: Lewis Alarcon : 1950 Sex: male Address [address] [place] [address] Provider: Kaiser Amanda MD? Kaiser Amanda MD? Diagnosis: Z86.711 History of pulmonary embolism (primary encounter diagnosis) Z86.718 History of DVT (deep vein thrombosis) Tests Requested PT/INR - as needed starting October 09, 2023 Reason for Visit * Reason Comments Dosage Adjustment Via Phone (anticoag Cl inic) Encounter Details Date Type Department Care Team (Late st Contact Info) Description 10/01/2023 5:10 PM EDT Anticoagulation Pharmacy, [place] [address] [address] Pharmacist2, [facility] [place] [address] [place] [address] History of pulmonary embolism*; History of DVT (deep vein thrombosis) Allergies Active Allergy Reactions Criticality Noted Date Comments Cat Dander Itching 07/14/2016 documented as of this encounter (statuses as of 10/01/2023) Medications Medication Sig Dispensed Refills Start Date End Date Status friendfundTouch Ultra 2 w/Device KitIndications:Type 2 diabetes mellitus [...] of less than 7.5% ([facility]) TAKE 1 TABLET BY MOUTH [...] MG Sublingual Tablet Sublingual (Nitrostat)Indicatio ns:Stable angina ([facility]) Place 1 Tablet under the [...] by mouth in the morning. 09/12/2023 Active documented as of this encounter (statuses as of 10/01/2023) Active Problems Problem Noted Date Diagnosed Date [...] as of this encounter (statuses as of 10/01/2023) Resolved Problems Problem Noted Date Diagnosed Date [...] as of this encounter (statuses as of 10/01/2023) Immunizations Name Administration Dates Next Due COVID-19 mRNA, LNP-s, No Pre serve, 2-Dose Series (Paraytec) 04/23/2021,08/09/2020,07/12/2020 Covid-19, Mrna, Lnp-s, Pf, B ivalent, 30 Mcg, IM, 12 yrs and above (Paraytec) 05/19/2022 Pneumococcal Conjugate Vacc, 13 Valent (Prevnar) [...] No 09/09/2023 documented as of this encounter Progress Notes * Ema Wood RPh - 10/01/2023 1:28 PM EDT Per PCP, blood is nearly entirely resolved, okay to resume AC. Patient Phone Numbers Spoke to patient's . Explained results. She will resume DISABILITY EXAMINER dose of warfarin 5mg daily this evening. Patient has PT services but not nursing services through [facility]. Sent home phleb referral to have INR on 10/08. Will ask at next call whether GML will be care home or short term. Ema Wood RPH Clinical Pharmacist 10/01/2023, 1:34 PM documented in this encounter Plan of Treatment Upcoming Encounters Date Type Department Care Team (Late st Contact Info) Description 10/05/2023 11:30 AM EDT Office Visit [facility]iology[facility] [address] [address] Stefani Mooney CRNP [address] [address] 10/22/2023 9:15 AM EDT Office Visit Urology [place] [address] [place] [phone] Bert Boogie Jr., MD [address] [place] [address] 11/07/2023 2:30 PM EDT Office Visit Neurology, [place] [address] [address] Ruth Lobo PA-C [facility] [place] [address] 01/21/2024 2:00 PM EDT Office Visit Endocrinology, [place] [address], [place] [phone] Sakina Jones MD [address] [place] [address] 01/25/2024 3:30 PM EDT Office Visit [facility] Surgery [facility] [address] [place] [address] Laney Hogue MD [address] [place] [address] 02/25/2024 9:20 AM EDT Office Visit Family [facility] [place], [place] [address] [phone] Kaiser Amanda MD 21 [place] [address] Scheduled Procedures Name Priority Associated Diagnoses Date/Ti me COLONOSCOPY FLEXIBLE PROXIMA L DIAGNOSTIC Recall History of colonic polyps Scheduled Referrals Name Type Priority Associated Diagnoses Orde r Schedule HOME PHLEBOTOMY REFERRAL OP Referral Within 10 days (routine) History of pulmonary embolism History of DVT (deep vein thrombosis) Ordered: 10/01/2023 Health Maintenance Due Date Last Done Comments [...] D LEVEL ONCE IN A LIFETIME-USE SMARTSET# [id number] Completed 07/26/2023, 02/26/2023, 01/23/2023, Additional history exists [...] this encounter Medical Devices Implanted Type Area Coat Ironer Hand Device Identifier Shelf Expiration Date Model / Serial / Lot Cement Bone Simplex Hv & G - [id number] Implanted:Qty: 2 on 09/02/2020 by Gianni Hubbard MD at OR [facility] Right: Hip LUDY : ORTHOPAEDICS 08/11/2021 6195-1-010 / / [id number] Spacer Ring Aclde Distal Lg 14 - [id number] Implanted:Qty: 1 on 09/02/2020 by Gianni Hubbard MD at OR [facility] Right: Hip LUDY : ORTHOPAEDICS 11/25/2024 [id number] / / Accolade C Cs 127 6 37/158 - [id number] Implanted:Qty: 1 on 09/02/2020 by Gianni Hubbard MD at OR [facility] Right: Hip LUDY : ORTHOPAEDICS 05/29/2023 [id number] / / [id number] Hip Cocr Lfit Head V40 28/+4 - [id number] Implanted:Qty: 1 on 09/02/2020 by Gianni Hubbard MD at OR [facility] Right: Hip LUDY : ORTHOPAEDICS 11/15/2024 6260-9-228 / / [id number] Hip Head Bipol Uhr Uni 28x52 - [id number] Implanted:Qty: 1 on 09/02/2020 by Gianni Hubbard MD at OR [facility] Right: Hip LUDY : ORTHOPAEDICS 11/25/2024 [id number] / / [id number] Lens Intraoc 17.5 - [id number] - [id number] Implanted:Qty: 1 on 03/23/2022 by Rad Morgan MD at OR [facility] Left: Eye BAUSCH & LOMB 10/11/2026 [id number] / [id number] / [id number] Lens Intraoc 18.0 - [id number] - [id number] Implanted:Qty: 1 on 03/30/2022 by Rad Morgan MD at [facility] Right: Eye BAUSCH & LOMB 01/11/2027 [id number] / [id number] / [id number] documented as of this encounter Visit Diagnoses [...] Advance Directives occurred with: Patient/Family Care Teams Platemaker Relationship Specialty Start Date End Date Kaiser Amanda MD [address] [place] [address] PCP - General Family Medicine 04/11/21 documented as of this encounter
--- OUTSIDE RECORDS SUMMARY | 2024-01-29 20:45 | External Medical Summary ---
Author Name Unknown Address Unknown Organization K1F:LABORATORY [facility] - [address] [place] [address] Laboratory Report Ordering Provider Test Date Status BRIDGETT TAI 10/04/2023 13:15:00 Final Observation Date Value Abnormality Reference (Units ) Status RBC, Urine 10/04/2023 13:15:00 20-29 Abnormal 0-2 (/HPF) Final WBC, Urine 10/04/2023 13:15:00 50+ Abnormal 0-2 (/HPF) Final Bacteria [#/area] in Urine sediment by Microscopy high power field 10/04/2023 13:15:00 >200 Abnormal 0-25 (/HPF) Final Leukocyte clumps [#/area] in Urine sediment by Microscopy high power field 10/04/2023 13:15:00 Present Abnormal None (/HPF) Final Performing Location LABORATORY [facility] - [address] [place] [address]
--- OUTSIDE RECORDS SUMMARY | 2024-01-29 20:45 | External Medical Summary | Summary of Care ---
Author Name Unknown Organization [facility] Address [address] [facility] [place] [address] Phone [phone] Care Team Providers Care Insurance Coder Name Role Phone Kaiser Amanda MD Primary Care Provider [phone] Encounter Details Date Type Department Care Team (Late st Contact Info) Description 10/01[facility]2023 [facility] [address] [facility] [place] [phone] Kaiser Amanda MD [address] [facility] [place] [address] Allergies Active Allergy Reactions Criticality [...] goal of less than 7.5% ([facility]),Type 2 diabetes mellitus with polyneuropathy ([facility]) Check BS once daily E11.9 [...] Blood)Indications: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 ([facility]),Type 2 diabetes mellitus with hemoglobin A1c goal of less than 7.5% ([facility]) USE STRIP TO CHECK GLUCOSE ONCE DAILY 100 Strip 3 07/16/2023 Active metFORMIN HCl 1000 MG Oral Tablet (Glucophage) TAKE 1 TABLET BY MOUTH TWICE A DAY WITH BREAKFAST AND DINNER 180 Tablet 1 07/21/2023 Active Nitroglycerin 0.4 MG Sublingual Tablet Sublingual (Nitrostat)Indicatio ns:Stable angina ([facility]) Place 1 Tablet under the [...] infection) 12/04/2018 12/24/2018 Severe malnutrition 12/01/2018 12/06/19 19 Acute venous embolism and th rombosis of unspecified deep vessels of lower extremity 05/04/2008 08/23/2016 documented as of this encounter (statuses as of 10/01/2023) Immunizations Name Administration Dates Next Due COVID-19 mRNA, LNP-s, No Pre serve, 2-Dose Series ([employer]) 04/23/2021,08/09/2020,07/12/2020 Covid-19, Mrna, Lnp-s, Pf, B ivalent, [...] encounter Miscellaneous Notes * Telephone Encounter - Yahaira Dejesus LPN - 10/01/2023 1:56 PM EDT Already addressed with Ema Wood and pt is aware. * Telephone Encounter - Kaiser Amanda MD - 10/01/2023 7:43 AM EDT Please advise that the blood from the bleed is nearly entirely resolved. May restart anticoagulation. Thanks! Kaiser Amanda MD, LUISA Family Physician Mario Seth documented in this encounter Plan of Treatment Upcoming Encounters Date Type Department Care Team (Late st Contact Info) Description 10/01/2023 5:10 PM EDT Anticoagulation Pharmacy, [address] [place] [address] Pharmacist2, [address] [place] [address] History of pulmonary embolism*; History of DVT (deep vein thrombosis) 10/05/2023 11:30 AM EDT Office Visit Cardiology, [place] [address] [place] [address] Stefani Mooney CRNP [address] [facility] [place] [address] 10/22/2023 9:15 AM EDT Office Visit U[facility] [address] [place] [address] Bert Boogie Jr., MD [address] [place] [address] 11/07/2023 2:30 PM EDT Office Visit Neurology, [place] [address] [address] Ruth Lobo PA-C [address] [phone] 01/21/2024 2:00 PM EDT Office Visit Endocrinology, [place] [address], [place] [phone] Sakina Jones MD [address], [place] [phone] 01/25/2024 3:30 PM EDT Office Visit [facility] [address] [place] [address] Laney Hogue MD [address] [place] [address] 02/25/2024 9:20 AM EDT Office Visit Family Practice, [place] [address] [place] [phone] Kaiser Amanda MD [address] [place] [address] Scheduled Procedures Name Priority Associated Diagnoses Date/Ti [...] D LEVEL ONCE IN A LIFETIME-USE SMARTSET# [id number] Completed 07/26/2023, 02/26/2023, 01/23/2023, Additional history exists [...] encounter Medical Devices Implanted Type Area It Architect Device Identifier Shelf Expiration Date Model / Serial / Lot Cement Bone Simplex Hv & G - [id number] Implanted:Qty: 2 on 09/02/2020 by Gianni Hubbard MD at OR [facility] Right: Hip LUDY : [employer] 08/11/2021 [id number] / / [id number] Spacer Ring Aclde Distal Lg 14 - [id number] Implanted:Qty: 1 on 09/02/2020 by Gianni Hubbard MD at OR [facility] Right: Hip [employer] : ORTH[employer] 11/25/2024 [id number] / / Accolade C Cs 127 6 37/158 - [id number] Implanted:Qty: 1 on 09/02/2020 by Gianni Hubbard MD at OR [facility] Right: Hip [employer]UD[employer] : [employer]OP[employer] 05/29/2023 [id number] / / [id number] Hip Cocr Lfit Head V40 28/+4 - [id number] Implanted:Qty: 1 on 09/02/2020 by Gianni Hubbard MD at OR [facility] Right: Hip [employer]UD[employer] : OR[employer]OP[employer] 11/15/2024 [id number] / / [id number] Hip Head Bipol Uhr Uni 28x52 - [id number] Implanted:Qty: 1 on 09/02/2020 by Gianni Hubbard MD at OR [facility] Right: Hip LUD[employer] : ORTHOP[employer] 11/25/2024 [id number] / / [id number] Lens Intraoc 17.5 - [id number] - [id number] Implanted:Qty: 1 on 03/23/2022 by Rad Morgan MD at OR [facility] Left: Eye BAUSCH & [employer]OMB 10/11/2026 [id number] / [id number] / [id number] Lens Intraoc 18.0 - [id number] - [id number] Implanted:Qty: 1 on 03/30/2022 by Rad Morgan MD at OR [facility] Right: Eye BAUSCH & LOMB 01/11/2027 [id number] / [id number] / [id number] documented as of this encounter Advance Directives [...] Advance Directives occurred with: Patient/Family Care Teams Insurance Coder Relationship Specialty Start Date End Date Kaiser Amanda MD [address] [place] [address] PCP - General Family Medicine 04/11/21 documented as of this encounter
--- OUTSIDE RECORDS SUMMARY | 2024-01-29 20:45 | External Medical Summary | Summary of Care ---
Author Name Unknown Organization [facility] Address [address] [facility] [facility] [address] Phone [phone] Care Team Providers Care Customer Operations Representative Name Role Phone Kaiser Amanda MD Primary Care Provider + [phone] Reason for Referral * Evaluate & Treat - Unlimited Visits (Within 10 days (routine)) - Authorized Specialty Diagnoses / Procedures Referred By Fauzia oconnor Referred To Contact Neurology Diagnoses Subdural hematoma (HCC) Generalized weakness Paraplegia (HCC) Dysautonomia (HCC) [place] [address] Referral ID Status Reason Start Date Expiration Date Visits Requested Visits Authorized [id number] Authorized Specialty Services Required 09/27/[phone] Question Answer Referral Priority Within 10 days (routine) Where should this appointment be scheduled? [facility] Is this referral being placed for insurance purposes ONLY No, patient needs appointment [facility] NEUROLOGY REFERRAL QUESTIONS Other Conditions - subdural, progressive weakness. consider EMG? * Ancillary Services (Within 10 days (routine)) - Authorized Specialty Diagnoses / Procedures Referred By Fauzia oconnor Referred To Contact Geriatric Medicine Diagnoses Subdural hematoma (HCC) HFrEF (heart failure with reduced ejection fraction) (HCC) Ambulatory dysfunction Generalized weakness Paraplegia (HCC) Dysautonomia (HCC) Kaiser Amanda MD [address] [place] [address] Referral ID Status Reason Start Date Expiration Date Visits Requested Visits Authorized [id number] Authorized Ancillary Services Required 09/27/[phone] Question Answer Referral Priority Within 10 days (routine) Where should this appointment be scheduled? [facility] * Evaluate & Treat - Unlimited Visits (Within 10 days (routine)) - Authorized Specialty Diagnoses / Procedures Referred By Contact Referred To Contact Cardiovascular Medicine / Cardiology Diagnoses HFrEF (heart failure with reduced ejection fraction) ([facility]) Kaiser Amanda MD [address] [place] [address] Referral ID Status Reason Start Date Expiration Date Visits Requested Visits Authorized [id number] Authorized Specialty Services Required 09/27/[phone] Question Answer Referral Priority Within 10 days (routine) Where should this appointment be scheduled? [facility] To which of the following clinics are you referring your patient? General Cardiology Clinic - newly reduced EF while in [place] * Prec[facility] (Within 10 days (routine)) - Authorized Specialty Diagnoses / Procedures Referred By Contac t Referred To Contact Cardiac Studies Diagnoses HFrEF (heart failure with reduced ejection fraction) ([facility]) Procedures ECHO, COMPLETE (2D), TRANS-THORACIC [place] [address] Referral ID Status Reason Start Date Expiration Date V isits Requested Visits Authorized [id number] Authorized Precert 09/27/[phone] * Precert (Within 10 days (routine)) - Authorized Specialty Diagnoses / Procedures Referred By Contac t Referred To Contact Radiology Diagnoses Subdural hematoma (HCC) Procedures CT HEAD/BRAIN [place] CONTRAST [place] [address] Referral ID Status Reason Start Date Expiration Date V isits Requested Visits Authorized [id number] Authorized 09/27/2023 999 999 Reason for Visit * Reason Onset Date Comments Hospital Follow-Up 09/10 [facility], 09/11 3 [facility]- ambulatory dysfunction, fall Hospital Follow-Up 09/27/2023 Encounter Details Date Type Department Care Team (Late st Contact Info) Description 09/27/2023 2:40 PM EDT Office Visit [facility] [address] [place] [phone] Kaiser Amanda MD [address] [id number] Hospital discharge follow-up*; Subdural hematoma (HCC); HFrEF (heart failure with reduced ejection fraction) (HCC); Ambulatory dysfunction; Generalized weakness; Paraplegia (HCC); Dysautonomia (HCC); Irritant contact dermatitis due to detergent Allergies Active Allergy Reactions Criticality Noted Date Comments Cat Dander Itching 07/14/2016 documented as of this encounter (statuses as of 09/27/2023) Medications Medication Sig Dispensed Refills Start Date [...] BS once daily E11.9 100 Each 0 06/22/2021 Active Acetaminophen 325 MG Oral Tablet (Tylenol) Take 3 Tablets (975 mg) by mouth every 6 hours. 30 Tablet 0 04/18/2022 Active Additional Information Patient taking differently:975 mg Oral Q6H,As needed, Reported on 12/26/2022 Docusate Sodium 100 MG Oral Capsule (Colace) Take 1 Capsule (100 mg) by mouth in the morning and 1 Capsule (100 mg) before bedtime. 10 Capsule 0 04/18/2022 Active Polyethylene Glycol 3350 17 GM Oral Packet (Miralax) Take 1 Packet (17 g) by mouth in the morning. Do not start before April 19, 2022. 14 Each 0 04/19/2022 Active Additional Information Patient taking differently:17 [...] Take 1 Tablet by mouth every evening. 0 09/12/2022 Active glipiZIDE ER 10 MG Oral [...] 5 MINUTES, THEN RINSE 120 mL 0 07/06/2023 Active OneTouch Verio In Vitro Strip [...] MG Sublingual Tablet Sublingual (Nitrostat)Indicati ons:Stable angina ([facility]) Place 1 Tablet under the tongue every 5 minutes as needed for Pain, Chest. 25 Tablet 0 07/26/2023 Active Omeprazole 20 MG Oral Capsule [...] 1 Capsule by mouth in the morning. 0 09/12/2023 Active levETIRAcetam 500 MG Oral Tablet (Keppra) Take 1 Tablet by mouth in the morning and 1 Tablet before bedtime. 0 09/11/2023 4 Discontinu ed(Medicat ion/Dose Changed) Amitriptyline HCl 25 MG Oral Tablet (Elavil)Indications :Depression with anxiety,Type 2 diabetes mellitus with polyneuropathy ([facility]) TAKE 1 TABLET BY MOUTH IN THE MORNING AND 1 TABLET BEFORE BEDTIME 180 Tablet 1 09/18/2023 4 Discontinu ed(Medicat ion/Dose Changed) documented as of this encounter (statuses as of 09/27/2023) Active Problems Problem Noted Date Diagnosed Date [...] as of this encounter (statuses as of 09/27/2023) Resolved Problems Problem Noted Date Diagnosed Date [...] as of this encounter (statuses as of 09/27/2023) Immunizations Name Administration Dates Next Due COVID-19 [...] Sign Reading Time Taken Comments Blood Pressure 122/76 09/27/2023 2:44 PM EDT Pulse 100 09/27/2023 2:44 PM EDT Temperature 36.8 C (98.3 F) 09/27/2023 2:44 PM ED T Respiratory Rate 14 09/27/2023 2:44 PM EDT Oxygen Saturation 98% 09/27/2023 2:44 PM EDT Inhaled Oxygen Concentration - - Weight 74.3 kg (163 lb 11.2 oz) 09/27/2023 2:44 PM EDT Height - - Body Mass Index 24.89 09/09/2023 8:35 AM EDT documented in this encounter Functional [...] Progress Notes * Kaiser Amanda MD - 09/27/2023 2:47 PM EDT SUBJECTIVE: Lewis Alarcon is a 72 year old male. Chief Complaint Patient presents with Hospital Follow-Up 09/10 [facility], 09/23 [facility]- ambulatory dysfunction, fall Hospital Follow-Up Recent Admission: Patient was recently admitted to [facility], then transferred to [facility] for traumatic subdural hematoma. Discharged on 09/06. Then had another fall on 09/08, returned to [facility], where he was discharged to [facility] rehab on 09/10. The date of discharge was 09/23 from [facility]. Discharge report received and reviewed. HPI: Today he reports while in [facility], he was given exercise mostly Has stopped keppra. He is not scheduled with neurology. Not yet contacted. ADLs: in wheelchair. Unable to stand to use wlaker. Can get in shower, and go to bathroom, but wifehelps him shower. Was doing much more before fall. Could be by himself, independent with bathroom, but now can't do anything anymore without 's help. Home health: [facility] home health nursing comes in on Sunday. Therapist just came yesterday for intake. Fall prevention: high commode, grab bar, handicapped shower, walkers. Using wheelchair. Require's 's assistance for transfers, because he is too weak to stand alone. She grabs his belt for transfers. Patient Active Problem List Diagnosis Code Type 2 diabetes mellitus with polyneuropathy ([facility]) E11.42 BPH without obstruction/lower urinary tract symptoms N40.0 Depression with anxiety F41.8 Type 2 diabetes mellitus with hemoglobin A1c goal of less than 7.5% ([facility]) E11.9 History of Hodgkin's disease Z85.71 Hyperlipidemia with target LDL less than 100 E78.5 Essential hypertension with goal blood pressure less than 130/80 I10 History of DVT (deep vein thrombosis) Z86.718 History of pulmonary embolism Z86.711 Ambulatory dysfunction R26.2 Generalized weakness R53.1 Hypercalcemia E83.52 Anticoagulated on warfarin Z79.01 Hyperparathyroidism ([facility]) E21.3 Unspecified injury at unspecified level of cervical spinal cord, sequela ([facility]) S14.109S S/P right hip fracture Z87.81 Fall W19.XXXA Orthostatic hypotension I95.1 Osteoporosis M81.0 Syncope and collapse R55 Clavicle fracture S42.009A Elevated lactic acid level R79.89 Paraplegia ([facility]) G82.20 Dysautonomia ([facility]) G90.1 Subdural hematoma ([facility]) S06.5XAA Current Outpatient Medications Medication Sig Dispense Refill Acetaminophen 325 MG Oral Tablet (Tylenol) Take 3 Tablets (975 mg) by mouth every 6 hours. (Patienttaking differently: Take 3 Tablets by mouth every 6 hours. As needed) 30 Tablet 0 Docusate Sodium 100 MG Oral Capsule [...] mouth daily at noon. 30 Tablet 3 Triamcinolone Acetonide 0.1 % External [...] 5 MINUTES, THEN RINSE 120 mL 0 metFORMIN HCl 1000 MG Oral Tablet (Glucophage) TAKE 1 TABLET BY MOUTH TWICE A DAY WITH BREAKFAST AND DINNER 180 Tablet 1 Omeprazole 20 MG Oral [...] 1 Capsule by mouth in the morning. trivago Ultra 2 w/Device Kit Testing blood sugars twice daily Dx: E11.9 1 Kit 11 Broad[employer] Network TechnologiesTouch Delica Lancets 30G Check BS once daily E11.9 100 Each 0 Mupirocin 2 % External Ointment (Bactroban) Apply topically to affected area 3 times a day. Apply to biopsy site on left shoulder twice daily as needed (Patient not taking: Reported on 09/27/2023) 22 g 1 Mupirocin 2 % External Ointment (Bactroban) Apply to biopsy site on left shoulder twice daily (Patient not taking: Reported on 09/27/2023) 22 g 1 trivago Verio In Vitro Strip (Glucose Blood) USE STRIP TO CHECK GLUCOSE ONCE DAILY 100 Strip 3 Nitroglycerin 0.4 MG Sublingual Tablet Sublingual (Nitrostat) Place 1 Tablet under the tongue every5 minutes as needed for Pain, Chest. 25 Tablet 0 No current facility-administered medications for this visit. Current and discharge medications have been reconciled. Review of patient's allergies indicates: Allergen Reactions Cat Dander Itching OBJECTIVE: BP 122/76 | Pulse 100 | Temp 36.8 C (98.3 F) (Tympanic) | Resp 14 | Wt 74.3 kg (163 lb 11.2 oz)| SpO2 98% | BMI 24.89 kg/m | BSA 1.89 m REVIEW OF SYSTEMS: PHYSICAL EXAM: BP 122/76 | Pulse 100 | Temp 36.8 C (98.3 F) (Tympanic) | Resp 14 | Wt 74.3 kg (163 lb 11.2 oz)| SpO2 98% | BMI 24.89 kg/m | BSA 1.89 m Physical Exam Constitutional: Appearance: He is normal weight. He is not ill-appearing. Comments: Appearing much older than stated age Cardiovascular: Rate and Rhythm: Regular rhythm. Tachycardia present. Heart sounds: No murmur heard. Pulmonary: Effort: No respiratory distress. Breath sounds: No wheezing. Abdominal: General: There is no distension. Musculoskeletal: Right lower leg: No edema. Left lower leg: No edema. Skin: Findings: Rash (diffuse individual excoriated puncate lesions across back, scant across chest) present. Neurological: Mental Status: He is oriented to person, place, and time. Mental status is at baseline. Cranial Nerves: No cranial nerve deficit. Sensory: No sensory deficit. Motor: Weakness present. Coordination: Coordination normal. Gait: Gait abnormal (wheelchair). Deep Tendon Reflexes: Reflexes normal. Comments: Flat affect, stone-faced Psychiatric: Mood and Affect: Mood normal. Comments: Flat affect ASSESSMENT: Hospital discharge follow-up (Primary) - DISCH MED RECON CUR MED LIS Subdural hematoma (HCC) - CT HEAD/BRAIN WO CONTRAST - [facility] REFERRAL OP - ADULT NEUROLOGY REFERRAL OP HFrEF (heart failure with reduced ejection fraction) ([facility]) - ECHO, COMPLETE (2D), TRANS-THORACIC; Future; Expected date: 09/27/2023 - CARDIOLOGY REFERRAL OP - [facility] REFERRAL OP Ambulatory dysfunction - [facility] REFERRAL OP Generalized weakness - [facility] REFERRAL OP - ADULT NEUROLOGY REFERRAL OP Paraplegia (HCC) - [facility] REFERRAL OP - ADULT NEUROLOGY REFERRAL OP Dysautonomia (HCC) - [facility] REFERRAL OP - ADULT NEUROLOGY REFERRAL OP Irritant contact dermatitis due to detergent Follow Up: Return if symptoms worsen or fail to improve. PLAN: Continue medication(s): no changes. Study(ies) ordered: repeat echo. Discussed he may need cath if EF remains reduced. Referral(s) to: cardiology, neurology, [facility]. Follow up as scheduled. I spent a total of 40-54 minutes (exact time 45 mins) minutes on the date of service in preparation, delivery, and documentation of the care provided to Lewis Alarcon excluding any time spent in performance of separately billed services. Kaiser Amanda MD documented in this encounter Nursing Notes * Chaparro Guevara LPN - 09/27/2023 2:39 PM EDT Chief Complaint Patient presents with Hospital Follow-Up 09/10 [facility], 09/23 [facility]- ambulatory dysfunction, fall documented in this encounter Plan of Treatment Upcoming Encounters Date Type Department Care Team (Late st Contact Info) Description 09/28/2023 1:15 PM EDT Appointment Radiology, [facility] [address] [facility] [address] 09/28/2023 5:10 PM EDT [facility]tico[facility], [place] [address] [facility] [address] Pharmacist2, [facility] [place] [address] [facility] [address] 10/05/2023 11:30 AM EDT Office Visit [facility] [place] [address] [facility] [address] Stefani Mooney CRNP [address] [place] [address] 10/22/2023 9:15 AM EDT [facility] [address] [facility] [address] [place] [address] Bert Boogie Jr., MD [address] [facility] [address] [place] [address] 11/07/2023 2:30 PM EDT Office Visit Neurology, [place] [address] [place] [address] Ruth Lobo PA-C [address] [place] [address] 01/21/2024 2:00 PM EDT Office Visit Endocrinology, [place] [address] [facility] [place] [id number] Sakina Jones MD [address] [facility] [place] [address] 01/25/2024 3:30 PM EDT Office Visit [facility] Surgery [address] [place] [address] Laney Hogue MD [address] [facility] [place] [address] 02/25/2024 9:20 AM EDT Office Visit [facility] [address] [phone] Kaiser Amanda MD [address] [place] [address] [address] Scheduled Orders Name Type Priority Associated Diagnoses Orde r Schedule CT HEAD/BRAIN WO CONTRAST Medical Imaging Routine Subdural hematoma (HCC) Ordered: 09/27/2023 ECHO, COMPLETE (2D), TRANS-THORACIC Echocardiology Routine HFrEF (heart failure with reduced ejection fraction) (HCC) Expected: 09/27/2023, Expires: 10/27/2025 Scheduled Procedures Name Priority Associated Diagnoses Date/Ti me COLONOSCOPY FLEXIBLE PROXIMA L DIAGNOSTIC Recall History of colonic polyps Scheduled Referrals Name Type Priority Associated Diagnoses Orde r Schedule CARDIOLOGY REFERRAL OP Referral Within 10 days (routine) HFrEF (heart failure with reduced ejection fraction) (HCC) Ordered: 09/27/2023 [facility] REFERRAL OP Referral Within 10 days (routine) Subdural hematoma (HCC) HFrEF (heart failure with reduced ejection fraction) (HCC) Ambulatory dysfunction Generalized weakness Paraplegia (HCC) Dysautonomia (HCC) Ordered: 09/27/2023 ADULT NEUROLOGY REFERRAL OP Referral Within 10 days (routine) Subdural hematoma (HCC) Generalized weakness Paraplegia (HCC) Dysautonomia (HCC) Ordered: 09/27/2023 Health Maintenance Due Date Last Done Comments [...] D LEVEL ONCE IN A LIFETIME-USE SMARTSET# [id number] Completed 07/26/2023, 02/26/2023, 01/23/2023, Additional history exists [...] this encounter Medical Devices Implanted Type Area Mixer Runner Device Identifier Shelf Expiration Date Model / Serial / Lot Cement Bone Simplex Hv & G - [id number] Implanted:Qty: 2 on 09/02/2020 by Gianni Hubbard MD at OR [facility] Right: Hip LUDY : ORTH[employer] 08/11/2021 [id number] / / [id number] Spacer Ring Aclde Distal Lg 14 - [id number] Implanted:Qty: 1 on 09/02/2020 by Gianni Hubbard MD at OR [facility] Right: Hip LUDY : ORTHOPA[employer] 11/25/2024 [id number] / / Accolade C Cs 127 6 37/158 - [id number] Implanted:Qty: 1 on 09/02/2020 by Gianni Hubbard MD at OR [facility] Right: Hip LUDY : ORTHOPAED[employer] 05/29/2023 [id number] / / [id number] Hip Cocr Lfit Head V40 28/+4 - [id number] Implanted:Qty: 1 on 09/02/2020 by Gianni Hubbard MD at OR [facility] Right: Hip LUDY : ORTHOPAED[employer] 11/15/2024 [id number] / / [id number] Hip Head Bipol Uhr Uni 28x52 - [id number] Implanted:Qty: 1 on 09/02/2020 by Gianni Hubbard MD at OR [facility] Right: Hip LUDY : ORTHOPAED[employer] 11/25/2024 [id number] / / [id number] Lens Intraoc 17.5 - [id number] - [id number] Implanted:Qty: 1 on 03/23/2022 by Rad [place] MD at OR [facility] Left: Eye BAUSCH & [employer]OMB 10/11/2026 [id number] / [id number] / [id number] Lens Intraoc 18.0 - [id number] - [id number] Implanted:Qty: 1 on 03/30/2022 by Rad [place] MD at OR [facility] Right: Eye BAUSCH & LOMB 01/11/2027 [id number] / [id number] / [id number] documented as of this encounter Visit Diagnoses Diagnosis Hospital discharge follow-up- Primary Other follow-up examination Subdural hematoma (HCC) Subdural hemorrhage HFrEF (heart failure with reduced ejection fraction) (HCC) Ambulatory dysfunction Generalized weakness Other malaise and fatigue Paraplegia (HCC) Paraplegia Dysautonomia (HCC) Unspecified disorder of autonomic nervous system Irritant contact dermatitis due to detergent Contact dermatitis and other eczema due to detergents documented in this encounter Advance Directives Latest Code Status on File Code Status Date Activated Date Inactivated Comments Full Code 09/09/2023 8:14 AM 09/11/2023 7:16 PM This order reflects the patients wishes and were consensually agreed upon. Question Answer Comments Discussion of Advance Directives occurred with: Patient Code Status History Code Status Date Activated Date Inactivated Comments Full Code 04/15/2022 10:45 PM 04/18/2022 3:06 PM This order reflects the patients wishes and were consensually agreed upon. Question Answer Comments Discussion of Advance Directives occurred with: Patient Does the patient have a Living Will? No Does the patient have Health Care Power of Supervisor [place]? No No Code 03/30/2022 6:32 AM 03/30/2022 12:51 PM Th is order reflects the patients wishes and were consensually agreed upon. Question Answer Comments Discussion of Advance Directives occurred with: Patient Does the patient have a Living Will? No Does the patient have Health Care Power of Supervisor [place]? No No Code 03/23/2022 9:56 AM 03/23/2022 4:51 PM Thi s order reflects the patients wishes and were consensually agreed upon. Question Answer Comments Discussion of Advance Directives occurred with: Patient Does the patient have a Living Will? No Does the patient have Health Care Power of Supervisor [place]? No Full Code 11/26/2021 11:29 PM 11/30/2021 5:09 PM This order reflects the patients wishes and were consensually agreed upon. Question Answer Comments Discussion of Advance Directives occurred with: Patient/Family Care Teams Customer Operations Representative Relationship Specialty Start Date End Date Kaiser Amanda MD [address] [address] PCP - General Family Medicine 04/11/21 documented as of this encounter"
--- OUTSIDE RECORDS SUMMARY | 2024-01-29 20:45 | External Medical Summary ---
Author Name Unknown Address Unknown Organization [id number]:[facility] - [address] [place] [address] Laboratory Report Ordering Provider Test Date Status BRIDGETT TAI 10/04/2023 13:15:00 Final Observation Date Value Abnormality Reference (Units ) Status Color of Urine by Auto 10/04/2023 13:15:00 Yellow Light Yellow, Yellow, Dark Yellow Final Clarity, Urine 10/04/2023 13:15:00 Clear Clear Final Glucose [Mass/volume] in Urine by Automated test strip 10/04/2023 13:15:00 Negative Negative (mg/dL) Final Bilirubin.total [Presence] in Urine by Automated test strip 10/04/2023 13:15:00 Negative Negative Final Ketones [Mass/volume] in Urine by Automated test strip 10/04/2023 13:15:00 Negative Negative (mg/dL) Final Specific gravity, Urine 10/04/2023 13:15:00 1.016 1.003-1.030 Final Hemoglobin [Presence] in Urine by Automated test strip 10/04/2023 13:15:00 Large Abnormal Negative Final pH, Urine 10/04/2023 13:15:00 7.5 5.0-7.5 (Units) Final Protein [Mass/volume] in Urine by Automated test strip 10/04/2023 13:15:00 30 Abnormal Negative (mg/dL) Final Urobilinogen [Mass/volume] in Urine by Automated test strip 10/04/2023 13:15:00 1.0 0.2, 1.0 (mg/dL) Final Nitrite [Presence] in Urine by Automated test strip 10/04/2023 13:15:00 Negative Negative Final Leukocyte esterase [Presence] in Urine by Automated test strip 10/04/2023 13:15:00 Large Abnormal Negative Final Performing Location [facility] - [address] [place] [address]
--- OUTSIDE RECORDS SUMMARY | 2024-01-29 20:45 | External Medical Summary | Summary of Care ---
Author Name Unknown Organization [facility] Address [address] [facility] [place] [address] Phone [phone] Care Team Providers Care Sales Activity Manager Name Role Phone Kaiser Amanda MD Primary Care Provider +1 [phone] Encounter Details Date Type Department Care Team (Late st Contact Info) Description [facility] [place] [address] Kaiser Amanda MD 21 [place] [address] Allergies Active Allergy Reactions Criticality [...] mRNA, LNP-s, No Pre serve, 2-Dose Series ([email or web address]) 04/23/2021,08/09/2020,07/12/2020 Covid-19, Mrna, Lnp-s, Pf, B ivalent, [...] Description 10/01/2023 5:10 PM EDT Anticoagulation Pharmacy, [place] [address] [address] Pharmacist2, [facility] [place] 21 [address] [address] 10/05/2023 11:30 AM EDT Office Visit Cardiology, [place] [address] [address] Stefani Mooney CRNP 400 [facility] [place] [address] 10/22/2023 9:15 AM EDT Office Visit Urology Aleida Rinaldi [place] [address] [place] [address] [place] [address] Bert Boogie Jr., MD [address] [place] [address] [place] [address] 11/07/2023 2:30 PM EDT Office Visit Neurology, [place] 21 [facility] [place] Rodriguezw[place] [address] Ruth Lobo PA-C 21 [facility] [place] [address] 01/21/2024 2:00 PM EDT Office Visit Endocrinology, [place] [address] [place] [address] Sakina Jones MD [address] [place] [address] 01/25/2024 3:30 PM EDT Office Visit [facility] 200 [place] [address] Laney Hogue MD 200 [place] [address] 02/25/2024 9:20 AM EDT Office Visit Family [facility], [place] [address] [phone] Kaiser Amanda MD 21 [facility] [place] [address] Scheduled Procedures Name Priority Associated Diagnoses Date/Ti [...] D LEVEL ONCE IN A LIFETIME-USE SMARTSET# [id number] Completed 07/26/2023, 02/26/2023, 01/23/2023, Additional history exists [...] this encounter Medical Devices Implanted Type Area Dog Races Manager Device Identifier Shelf Expiration Date Model / Serial / Lot Cement Bone Simplex Hv & G - [id number] Implanted:Qty: 2 on 09/02/2020 by Gianni Hubbard MD at OR [facility] Right: Hip LUDY : ORTHOPAEDICS 08/11/2021 6195-1-010 / / [id number] Spacer Ring Aclde Distal Lg 14 - [id number] Implanted:Qty: 1 on 09/02/2020 by Gianni Hubbard MD at OR [facility] Right: Hip LUDY : ORTHOPAEDICS 11/25/2024 6850-3713 / / Accolade C Cs 127 6 37/158 - [id number] Implanted:Qty: 1 on 09/02/2020 by Gianni Hubbard MD at OR [facility] Right: Hip LUDY : ORTHOPAEDICS 05/29/2023 6057-0637D / / [id number] Hip Cocr Lfit Head V40 28/+4 - [id number] Implanted:Qty: 1 on 09/02/2020 by Gianni Hubbard MD at OR [facility] Right: Hip LUDY : ORTHOPAEDICS 11/15/2024 6260-9-228 / / [id number] Hip Head Bipol Uhr Uni 28x52 - [id number] Implanted:Qty: 1 on 09/02/2020 by Gianni Hubbard MD at OR [facility] Right: Hip LUDY : ORTHOPAEDICS 11/25/2024 UH1-52-28 / / [id number] Lens Intraoc 17.5 - [id number] - [id number] Implanted:Qty: 1 on 03/23/2022 by Rad Morgan MD at OR [facility] Left: Eye BAUSCH & LOMB 10/11/2026 [id number] / [id number] / [id number] Lens Intraoc 18.0 - [id number] - [id number] Implanted:Qty: 1 on 03/30/2022 by Rad Morgan MD at [facility] Right: Eye BAUSCH & LOMB 01/11/2027 [id number] / [id number] / [id number] documented as of this encounter Advance Directives [...] Advance Directives occurred with: Patient/Family Care Teams Sales Activity Manager Relationship Specialty Start Date End Date Kaiser Amanda MD 21 [address] [address] PCP - General Family Medicine 04/11/21 documented as of this encounter
--- OUTSIDE RECORDS SUMMARY | 2024-01-29 20:45 | External Medical Summary | Summary of Care ---
Author Name Unknown Organization [facility] Address [address] [facility] [address] Phone [phone] Care Team Providers Care Upper Cutter Machine Name Role Phone Kaiser Amanda MD Primary Care Provider [phone] [phone] Reason for Visit * Reason Comments Dosage Adjustment Via Phone (anticoag Cl inic) Encounter Details Date Type Department Care Team (Late st Contact Info) Description 09/26/2023 5:50 PM EDT Anticoagulation Pharmacy, [address] [place] [address] Pharmacist2, [address] [place] [address] History of pulmonary embolism*; History of DVT (deep vein thrombosis) Allergies Active Allergy Reactions Criticality Noted Date Comments Cat Dander Itching 07/14/2016 documented as of this encounter (statuses as of 09/26/2023) Medications Medication Sig Dispensed Refills Start Date [...] as needed 22 g 1 07/26/2022 Active Mupirocin 2 % External Ointment (Bactroban) Apply to biopsy site on left shoulder twice daily 22 g 1 07/26/2022 Active Triamcinolone Acetonide 0.1 % External Cream [...] Sublingual Tablet Sublingual (Nitrostat)Indicatio ns:Stable angina ([facility]) Place 1 Tablet under the [...] the morning. 90 Tablet 3 08/14/2023 Active levETIRAcetam 500 MG Oral Tablet (Keppra) Take 1 Tablet by mouth in the morning and 1 Tablet before bedtime. 0 09/11/2023 Active Tamsulosin HCl 0.4 MG Oral Capsule (Flomax) Take 1 Capsule by mouth in the morning. Do not start before September 12, 2023. 0 09/12/2023 Active Amitriptyline HCl 25 MG Oral Tablet (Elavil)Indications: Depression with anxiety,Type 2 diabetes mellitus with polyneuropathy ([facility]) TAKE 1 TABLET BY MOUTH IN THE MORNING AND 1 TABLET BEFORE BEDTIME 180 Tablet 1 09/18/2023 Active documented as of this encounter (statuses as of 09/26/2023) Active Problems Problem Noted Date Diagnosed Date [...] as of this encounter (statuses as of 09/26/2023) Resolved Problems Problem Noted Date Diagnosed Date [...] as of this encounter (statuses as of 09/26/2023) Immunizations Name Administration Dates Next Due COVID-19 [...] of this encounter Progress Notes * Ema Wood, [facility] - 09/26/2023 9:08 AM EDT [phone], Trixie Spoke with Jae who states patient has been discharged. Patient Phone Numbers Spoke to patient's . She states warfarin remains on hold. They were suggested to have a repeat scan done prior to restarting Sees PCP tomorrow afternoon. Follow up on Sunday to determine plan of action and see if imaging is scheduled. Will follow up with results of scan and discus with PCP if/when warfarin will be resumed. Ema Wood RPH Clinical Pharmacist 09/26/2023, 9:12 AM documented in this encounter Plan of Treatment Upcoming Encounters Date Type Department Care Team (Late st Contact Info) Description 09/27/2023 2:40 PM EDT Office Visit [facility], [place] 21 [facility] [place] [address] Kaiser Amanda MD 21 [facility] [place] [address] 09/28/2023 5:10 PM EDT Anticoagulation Pharmacy, [place] [address] [address] Pharmacist2, [facility] [place] 21 [address] [address] 10/22/2023 9:15 AM EDT Office Visit Urology Aleida Rinaldi [place] [address] [facility] [address] [place] [address] Bert Boogie Jr., MD [address] [facility] [address] [place] [address] 01/21/2024 2:00 PM EDT Office Visit Endocrinology, [place] [address] [place] [address] Sakina Jones MD [address] [place] [address] 01/25/2024 3:30 PM EDT Office Visit [facility] 200 [place] [address] Laney Hogue MD 200 [place] [address] 02/25/2024 9:20 AM EDT Office Visit [facility], [place] [address] [phone] Kaiser Amanda MD 21 [address] [address] Scheduled Procedures Name Priority Associated Diagnoses [...] D LEVEL ONCE IN A LIFETIME-USE SMARTSET# [id number] Completed 07/26/2023, 02/26/2023, 01/23/2023, Additional history exists [...] this encounter Medical Devices Implanted Type Area Flagstone Layer Device Identifier Shelf Expiration Date Model / Serial / Lot Cement Bone Simplex Hv & G - [id number] Implanted:Qty: 2 on 09/02/2020 by Gianni Hubbard MD at OR [facility] Right: Hip LUDY : ORTHOPAEDICS 08/11/2021 6195-1-010 / / [id number] Spacer Ring Aclde Distal Lg 14 - [id number] Implanted:Qty: 1 on 09/02/2020 by Gianni Hubbard MD at OR [facility] Right: Hip LUDY : ORTHOPAEDICS 11/25/2024 7248-4605 / / Accolade C Cs 127 6 37/158 - [id number] Implanted:Qty: 1 on 09/02/2020 by Gianni Hubbard MD at OR [facility] Right: Hip LUDY : ORTHOPAEDICS 05/29/2023 6057-0637D / / [id number] Hip Cocr Lfit Head V40 28/+4 - [id number] Implanted:Qty: 1 on 09/02/2020 by Gianni Hubbard MD at OR [facility] Right: Hip LUDY : ORTHOPAEDICS 11/15/2024 6260-9-228 / / [id number] Hip Head Bipol Uhr Uni 28x52 - [id number] Implanted:Qty: 1 on 09/02/2020 by Gianni Hubbard MD at OR [facility] Right: Hip LUDY : ORTHOPAEDICS 11/25/2024 UH1-52-28 / / [id number] Lens Intraoc 17.5 - [id number] - [id number] Implanted:Qty: 1 on 03/23/2022 by Rad Morgan MD at OR [facility] Left: Eye BAUSCH & LOMB 10/11/2026 [id number] / [id number] / [id number] Lens Intraoc 18.0 - [id number] - [id number] Implanted:Qty: 1 on 03/30/2022 by Rad Morgan MD at OR [facility] Right: Eye BAUSCH & LOMB 01/11/2027 [id number] / [id number] / [id number] documented as of this encounter Visit Diagnoses Diagnosis History of pulmonary embolism- Primary Personal history of pulmonary embolism History of DVT (deep vein thrombosis) Personal history of venous thrombosis and embolism documented in this encounter Advance Directives Latest [...] the patient have Health Care Power of Manager Of Development? No No Code 03/30/2022 6:32 AM 03/30/2022 12:51 PM Th is order reflects the patients wishes and were consensually agreed upon. Question Answer Comments Discussion of Advance Directives occurred with: Patient Does the patient have a Living Will? No Does the patient have Health Care Power of Manager Of Development? No No Code 03/23/2022 9:56 AM 03/23/2022 4:51 PM Thi s order reflects the patients wishes and were consensually agreed upon. Question Answer Comments Discussion of Advance Directives occurred with: Patient Does the patient have a Living Will? No Does the patient have Health Care Power of Manager Of Development? No Full Code 11/26/2021 11:29 PM 11/30/2021 5:09 PM This order reflects the patients wishes and were consensually agreed upon. Question Answer Comments Discussion of Advance Directives occurred with: Patient/Family Care Teams Upper Cutter Machine Relationship Specialty Start Date End Date Kaiser Amanda MD [address] [address] PCP - General Family Medicine 04/11/21 documented as of this encounter
--- OUTSIDE RECORDS SUMMARY | 2024-01-29 20:45 | External Medical Summary | Summary of Care ---
Author Name Unknown Organization [facility] Address 100 [facility] [address] Phone [phone] Care Team Providers Care Highway Engineering Teacher Name Role Phone Kaiser Amanda MD Primary Care Provider [phone] [phone] Reason for Visit * Precert (Within 10 days (routine)) - Authorized Specialty Diagnoses / Procedures Referred By Contac t Referred To Contact Radiology Diagnoses Subdural hematoma (HCC) Procedures CT HEAD/BRAIN WO CONTRAST Kaiser Amanda MD 21 [place] [address] Referral ID Status Reason Start Date Expiration Date V isits Requested Visits Authorized [id number] Authorized 09/27/2023 [id number] Encounter Details Date Type Department Care Team (Latest Contact Info) Description 09/28/2023 12:57 PM EDT - 09/28/2023 11:59 PM EDT Hospital Encounter Radiology, [address] [place] [address] Arrived Discharge Disposition: Home - Self Care Allergies Active Allergy Reactions Criticality Noted Date Comments Cat Dander Itching 07/14/2016 documented as of this encounter (statuses as of 09/29/2023) Medications Medication Sig Dispensed Refills Start Date End Date Status MesosphereTouch Ultra 2 w/Device KitIndications:Type 2 diabetes mellitus with hemoglobin A1c goal of less than 7.5% ([facility]) Testing blood sugars twice daily Dx: E11.9 1 Kit 11 06/06/2021 Active Sincere Lagunas 30GIndications:Type 2 diabetes mellitus with hemoglobin A1c goal of less than 7.5% ([facility]),Type 2 diabetes mellitus with polyneuropathy ([facility]) Check BS once daily E11.9 [...] Blood)Indications: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 ([facility]),Type 2 diabetes mellitus with hemoglobin A1c goal of less than 7.5% ([facility]) USE STRIP TO CHECK GLUCOSE ONCE DAILY 100 Strip 3 07/16/2023 Active metFORMIN HCl 1000 MG Oral Tablet (Glucophage) TAKE 1 TABLET BY MOUTH TWICE A DAY WITH BREAKFAST AND DINNER 180 Tablet 1 07/21/2023 Active Nitroglycerin 0.4 MG Sublingual Tablet Sublingual (Nitrostat)Indicatio ns:Stable angina ([facility]) Place 1 Tablet under the [...] mouth in the morning. 0 09/12/2023 Active documented as of this encounter (statuses as of 09/29/2023) Active Problems Problem Noted Date Diagnosed Date [...] as of this encounter (statuses as of 09/29/2023) Resolved Problems Problem Noted Date Diagnosed Date [...] as of this encounter (statuses as of 09/29/2023) Immunizations Name Administration Dates Next Due COVID-19 mRNA, LNP-s, No Pre serve, 2-Dose Series ([place]) 04/23/2021,08/09/2020,07/12/2020 Covid-19, Mrna, Lnp-s, Pf, B ivalent, [...] No 09/09/2023 documented as of this encounter Plan of Treatment Upcoming Encounters Date Type Department Care Team (Late st Contact Info) Description 10/01/2023 5:10 PM EDT Anticoagulation Pharmacy, [place] [address] [address] Pharmacist2, [facility] [place] [address] [address] 10/05/2023 11:30 AM EDT Office Visit Cardiology, [place] [address] [address] Stefani Mooney CRNP 400 [facility] [place] [address] 10/22/2023 9:15 AM EDT Office Visit Urology Aleida Rinaldi [place] [address] [place] [address] [place] [address] Bert Boogie Jr., MD [address] [place] [address] [place] [address] 11/07/2023 2:30 PM EDT Office Visit Neurology, [place] 21 [facility] [place] [address] Ruth Lobo PA-C 21 [place] [address] 01/21/2024 2:00 PM EDT Office Visit Endocrinology, [place] [address] [place], [place] [address] Sakina Jones MD [address] [place] [address] 01/25/2024 3:30 PM EDT Office Visit [facility] Surgery [facility] 200 [place] [address] Laney Hogue MD 200 [place] [address] 02/25/2024 9:20 AM EDT Office Visit Family [facility], [place] [address] [phone] Kaiser Amanda MD [facility] [address] Pending Results Name Type Priority Associated Diagnoses Date /Time CT HEAD/BRAIN WO CONTRAST Medical Imaging Routine Subdural hematoma (HCC) 09/28/2023 1:23 PM EDT Scheduled Procedures Name Priority Associated [...] D LEVEL ONCE IN A LIFETIME-USE SMARTSET# [id number] Completed 07/26/2023, 02/26/2023, 01/23/2023, Additional history exists [...] this encounter Medical Devices Implanted Type Area Flow Manager Device Identifier Shelf Expiration Date Model / Serial / Lot Cement Bone Simplex Hv & G - [id number] Implanted:Qty: 2 on 09/02/2020 by Gianni Hubbard MD at OR [facility] Right: Hip LUDY : ORTHOPAEDICS 08/11/2021 6195-1-010 / / [id number] Spacer Ring Aclde Distal Lg 14 - [id number] Implanted:Qty: 1 on 09/02/2020 by Gianni Hubbard MD at OR [facility] Right: Hip LUDY : ORTHOPAEDICS 11/25/2024 6057-8161 / / Accolade C Cs 127 6 37/158 - [id number] Implanted:Qty: 1 on 09/02/2020 by Gianni Hubbard MD at OR [facility] Right: Hip LUDY : ORTHOPAEDICS 05/29/2023 6057-0637D / / [id number] Hip Cocr Lfit Head V40 28/+4 - [id number] Implanted:Qty: 1 on 09/02/2020 by Gianni Hubbard MD at OR [facility] Right: Hip LUDY : ORTHOPAEDICS 11/15/2024 6260-9-228 / / [id number] Hip Head Bipol Uhr Uni 28x52 - [id number] Implanted:Qty: 1 on 09/02/2020 by Gianni Hubbard MD at OR [facility] Right: Hip LUDY : ORTHOPAEDICS 11/25/2024 UH1-52-28 / / [id number] Lens Intraoc 17.5 - [id number] - [id number] Implanted:Qty: 1 on 03/23/2022 by Rad Morgan MD at OR [facility] Left: Eye BAUSCH & LOMB 10/11/2026 [id number] / [id number] / [id number] Lens Intraoc 18.0 - [id number] - [id number] Implanted:Qty: 1 on 03/30/2022 by Rad Morgan MD at OR [facility] Right: Eye BAUSCH & LOMB 01/11/2027 [id number] / [id number] / [id number] documented as of this encounter Advance Directives Latest Code Status [...] the patient have Health Care Power of Breakdown Man? No No Code 03/30/2022 6:32 AM 03/30/2022 12:51 PM Th is order reflects the patients wishes and were consensually agreed upon. Question Answer Comments Discussion of Advance Directives occurred with: Patient Does the patient have a Living Will? No Does the patient have Health Care Power of Breakdown Man? No No Code 03/23/2022 9:56 AM 03/23/2022 4:51 PM Thi s order reflects the patients wishes and were consensually agreed upon. Question Answer Comments Discussion of Advance Directives occurred with: Patient Does the patient have a Living Will? No Does the patient have Health Care Power of Breakdown Man? No Full Code 11/26/2021 11:29 PM 11/30/2021 5:09 PM This order reflects the patients wishes and were consensually agreed upon. Question Answer Comments Discussion of Advance Directives occurred with: Patient/Family Care Teams Highway Engineering Teacher Relationship Specialty Start Date End Date Kaiser Amanda MD 21 [place] [address] PCP - General Family Medicine 04/11/21 documented as of this encounter
--- OUTSIDE RECORDS SUMMARY | 2024-01-29 20:45 | External Medical Summary | Summary of Care ---
Author Name Unknown Organization [facility] Address [address] [facility] [place] [address] Phone [phone] Care Team Providers Care Warehouse Stocker Name Role Phone Kaiser Amanda MD Primary Care Provider +1 [phone] Encounter Details Date Type Department Care Team (Late st Contact Info) Description 10/01/2023 [facility] [place] [address] Kaiser Amanda MD 21 [facility] [place] [address] Allergies Active Allergy Reactions Criticality Noted Date Comments Cat Dander Itching 07/14/2016 documented as of this encounter (statuses as of 10/01/2023) Medications Medication Sig Dispensed Refills Start Date End Date Status OneTouch Ultra 2 w/Device KitIndications:Type 2 diabetes mellitus with hemoglobin A1c goal of less than 7.5% ([facility]) Testing blood sugars twice daily Dx: E11.9 1 Kit 11 06/06/2021 Active OneTouch Delica Lancets 30GIndications:Type 2 diabetes mellitus with hemoglobin A1c goal of less than 7.5% ([facility]),Type 2 diabetes mellitus with polyneuropathy ([facility]) Check BS once daily E11.9 [...] Blood)Indications: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 ([facility]),Type 2 diabetes mellitus with hemoglobin A1c goal of less than 7.5% ([facility]) USE STRIP TO CHECK GLUCOSE ONCE DAILY 100 Strip 3 07/16/2023 Active metFORMIN HCl 1000 MG Oral Tablet (Glucophage) TAKE 1 TABLET BY MOUTH TWICE A DAY WITH BREAKFAST AND DINNER 180 Tablet 1 07/21/2023 Active Nitroglycerin 0.4 MG Sublingual Tablet Sublingual (Nitrostat)Indicatio ns:Stable angina ([facility]) Place 1 Tablet under the tongue [...] mRNA, LNP-s, No Pre serve, 2-Dose Series ([employer]) 04/23/2021,08/09/2020,07/12/2020 Covid-19, Mrna, Lnp-s, Pf, B ivalent, [...] Description 10/01/2023 5:10 PM EDT Anticoagulation Pharmacy, [place] [address] [address] Pharmacist2, [facility] [place] [address] [address] 10/05/2023 11:30 AM EDT Office Visit Cardiology, [place] [address] [address] Stefani Mooney CRNP 400 [facility] [place] [address] 10/22/2023 9:15 AM EDT Office Visit Urology Aleida Rinaldi [place] [address] [place] [address] [place] [address] Bert Boogie Jr., MD [address] [place] [address] [place] [address] 11/07/2023 2:30 PM EDT Office Visit Neurology, [place] 21 [facility] [place]riano Rodriguezw[place] [address] Ruth Lobo PA-C 21 [facility] [place] [address] 01/21/2024 2:00 PM EDT Office Visit Endocrinology, [place] [address] [place] [address] Sakina Jones MD [address] [place] [address] 01/25/2024 3:30 PM EDT Office Visit [facility] Surgery [facility] 200 [place] [address] Laney Hogue MD 200 [place] [address] 02/25/2024 9:20 AM EDT Office Visit Family [facility], [place] [address] [phone] Kaiser Amanda MD 21 [facility] [place] [address] Scheduled Procedures Name Priority Associated Diagnoses Date/Ti [...] D LEVEL ONCE IN A LIFETIME-USE SMARTSET# [id number] Completed 07/26/2023, 02/26/2023, 01/23/2023, Additional history exists [...] this encounter Medical Devices Implanted Type Area Form Block Maker Device Identifier Shelf Expiration Date Model / Serial / Lot Cement Bone Simplex Hv & G - [id number] Implanted:Qty: 2 on 09/02/2020 by Gianni Hubbard MD at OR [facility] Right: Hip LUDY : ORTHOPAEDICS 08/11/2021 6195-1-010 / / [id number] Spacer Ring Aclde Distal Lg 14 - [id number] Implanted:Qty: 1 on 09/02/2020 by Gianni Hubbard MD at OR [facility] Right: Hip LUDY : ORTHOPAEDICS 11/25/2024 2983-8192 / / Accolade C Cs 127 6 37/158 - [id number] Implanted:Qty: 1 on 09/02/2020 by Gianni Hubbard MD at OR [facility] Right: Hip LUDY : ORTHOPAEDICS 05/29/2023 6057-0637D / / [id number] Hip Cocr Lfit Head V40 28/+4 - [id number] Implanted:Qty: 1 on 09/02/2020 by Gianni Hubbard MD at OR [facility] Right: Hip LUDY : ORTHOPAEDICS 11/15/2024 6260-9-228 / / [id number] Hip Head Bipol Uhr Uni 28x52 - [id number] Implanted:Qty: 1 on 09/02/2020 by Gianni Hubbard MD at OR [facility] Right: Hip LUDY : ORTHOPAEDICS 11/25/2024 UH1-52-28 / / [id number] Lens Intraoc 17.5 - [id number] - [id number] Implanted:Qty: 1 on 03/23/2022 by Rad Morgan MD at OR [facility] Left: Eye BAUSCH & LOMB 10/11/2026 [id number] / [id number] / [id number] Lens Intraoc 18.0 - [id number] - [id number] Implanted:Qty: 1 on 03/30/2022 by Rad Morgan MD at [facility] Right: Eye BAUSCH & LOMB 01/11/2027 [id number] / [id number] / [id number] documented as of this encounter Advance Directives [...] Advance Directives occurred with: Patient/Family Care Teams Warehouse Stocker Relationship Specialty Start Date End Date Kaiser Amanda MD [address] [address] PCP - General Family Medicine 04/11/21 documented as of this encounter
--- OUTSIDE RECORDS SUMMARY | 2024-01-29 20:45 | External Medical Summary ---
Author Name Unknown Address Unknown Organization K01:[facility]AT[facility] - [address] [place] [address] [place] [address] Laboratory Report Ordering Provider Test Date Status BRIDGETT TAI 10/04/2023 13:15:00 Final <10,000 colonies/ml mixed no rmal maykel Observation Date Value Abnormality Reference (Units ) Status Bacteria identified in Specimen by Culture 10/04/2023 13:15:00 [id number]^KLEBSIELL A PNEUMONIAE Abnormal Final >100,000 colonies/mL Klebsie lla pneumoniae Performing Location [facility] - [address] [place] [address] Ordering Provider Test Date Status BRIDGETT TAI 10/04/2023 13:15:00 Final Observation Date Value Abnormality Reference (Units ) Status Ampicillin + Sulbactam 10/04/2023 13:15:00 4 Susceptible Final Cefazolin 10/04/2023 13:15:00 <=4 Susceptible Final Cefepime susceptibility 10/04/2023 13:15:00 <=1 Susceptible Final Ceftriaxone suceptibility 10/04/2023 13:15:00 <=1 Susceptible Final Ciprofloxacin 10/04/2023 13:15:00 <=0.25 Susceptible Final Due to serious side effects, the FDA has advised against using Ciprofloxacin to treat uncomplicated UTIs and respiratory tract infections unless there are no alternative treatment options. Gentamicin susceptibility 10/04/2023 13:15:00 <=1 Susc eptible Final Nitrofurantoin susceptibility 10/04/2023 13:15:00 64 Intermediate Final Piperacillin + Tazobactamsusceptibility 10/04/2023 13:15:00 <=4 Susceptible Final TMP-SMZ susceptibility 10/04/2023 13:15:00 <=20 Suscept ible Final Test: Culture, Urine, Quanti tative
Specimen Source: Urine, Clean Catch
Specimen Type: Urine
Specimen Date: 10/04/2023 1315
Result Date: 10/06/2023 1425
Result Status: Final result
Abnormal: Yes
Resulting Lab: [facility]
[address]
[place] [address]

CULTURE

>100,000 colonies/mL Klebsiella pneumoniae (Abnormal)

<10,000 colonies/ml mixed normal maykel

SUSCEPTIBILITY

Klebsiella
pneumoniae
METHOD MICROBROTH DILUTIONS

AMPICILLIN/SULBACTAM [...] alternative treatment options.

null Performing Location LAB[facility]ATORY [facility] - [address] [facility] [address]
--- OUTSIDE RECORDS SUMMARY | 2024-01-29 20:45 | External Medical Summary | Summary of Care ---
Author Name Unknown Organization [facility] Address [address] [facility] [place] [address] Phone [phone] Care Team Providers Care Chief Dispatcher Service Name Role Phone Kaiser Amanda MD Primary Care Provider [phone] [phone] Reason for Visit * Reason Comments Status Check Encounter Details Date Type Department Care Team (Late st Contact Info) Description 09/28/2023 5:10 PM EDT Anticoagulation Pharmacy, [address] [place] [address] Pharmacist2, [address] [place] [address] History of pulmonary embolism*; History of DVT (deep vein thrombosis) Allergies Active Allergy Reactions Criticality Noted Date Comments Cat Dander Itching 07/14/2016 documented as of this encounter (statuses as of 09/28/2023) Medications Medication Sig Dispensed Refills Start Date End Date Status OneTouch Ultra 2 w/Device KitIndications:Type 2 diabetes mellitus with hemoglobin A1c goal of less than 7.5% ([facility]) Testing blood sugars twice daily [...] Blood)Indications: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 ([facility]),Type 2 diabetes mellitus with hemoglobin A1c goal of less than 7.5% ([facility]) USE STRIP TO CHECK GLUCOSE ONCE DAILY 100 Strip 3 07/16/2023 Active metFORMIN HCl 1000 MG Oral Tablet (Glucophage) TAKE 1 TABLET BY MOUTH TWICE A DAY WITH BREAKFAST AND DINNER 180 Tablet 1 07/21/2023 Active Nitroglycerin 0.4 MG Sublingual Tablet Sublingual (Nitrostat)Indicatio ns:Stable angina ([facility]) Place 1 Tablet under the [...] as of this encounter (statuses as of 09/28/2023) Active Problems Problem Noted Date Diagnosed Date [...] as of this encounter (statuses as of 09/28/2023) Resolved Problems Problem Noted Date Diagnosed Date [...] as of this encounter (statuses as of 09/28/2023) Immunizations Name Administration Dates Next Due COVID-19 [...] Progress Notes * Jessi Collier RPh - 09/28/2023 8:44 AM EDT Patient had appointment with PCP yesterday, 09/26. CT has been ordered, scheduled for today. He has been referred to neurology and [facility]. Coumadin remains on hold s/p SDH. Will follow up next week regarding CT and Coumadin status. Jessi Collier, PharmD, [facility] Clinical Pharmacist 09/28/2023, 8:45 AM documented in this encounter Plan of Treatment Upcoming Encounters Date Type Department Care Team (Late st Contact Info) Description 09/28/2023 1:15 PM EDT Appointment Radiology, [address] [place] [address] 10/01/2023 5:10 PM EDT Anticoagulation Pharmacy, [place] [address] [place] [address] Pharmacist2, [facility] [place] [address] [place] [address] 10/05/2023 11:30 AM EDT Office Visit Cardiology, [place] [address] [facility] [place] [address] Stefani Mooney CRNP 400 [place] [address] 10/22/2023 9:15 AM EDT Office Visit Urology Aleida Rinaldi [place] [address] [place] [address] Bert Boogie Jr., MD 27 [facility] [address] [place] [address] 11/07/2023 2:30 PM EDT Office Visit Neurology, [place] [address] [place] [address] Ruth Lobo PA-C 21 [facility] [address] 01/21/2024 2:00 PM EDT Office Visit Endocrinology, [place] [address] [place] [address] Sakina Jones MD [address] [place] [address] 01/25/2024 3:30 PM EDT Office Visit [facility] Surgery [facility] 200 [place] [address] Laney Hogue MD 200 [place] [address] 02/25/2024 9:20 AM EDT Office Visit Family Practice, [place] [address] [place] [address] Kaiser Amanda MD [address] [place] [address] Scheduled Procedures Name Priority Associated Diagnoses Date/Ti [...] D LEVEL ONCE IN A LIFETIME-USE SMARTSET# [id number] Completed 07/26/2023, 02/26/2023, 01/23/2023, Additional history exists [...] this encounter Medical Devices Implanted Type Area Dobie Man Device Identifier Shelf Expiration Date Model / Serial / Lot Cement Bone Simplex Hv & G - [id number] Implanted:Qty: 2 on 09/02/2020 by Gianni Hubbard MD at OR [facility] Right: Hip LUDY : ORTHOPAEDICS 08/11/2021 6195-1-010 / / [id number] Spacer Ring Aclde Distal Lg 14 - [id number] Implanted:Qty: 1 on 09/02/2020 by Gianni Hubbard MD at OR [facility] Right: Hip LUDY : ORTHOPAEDICS 11/25/2024 [id number] / / Accolade C Cs 127 6 37/158 - [id number] Implanted:Qty: 1 on 09/02/2020 by Gianni Hubbard MD at OR [facility] Right: Hip LUDY : ORTHOPAEDICS 05/29/2023 [id number] / / [id number] Hip Cocr Lfit Head V40 28/+4 - [id number] Implanted:Qty: 1 on 09/02/2020 by Gianni Hubbard MD at OR [facility] Right: Hip LUDY : ORTHOPAEDICS 11/15/2024 6260-9-228 / / [id number] Hip Head Bipol Uhr Uni 28x52 - [id number] Implanted:Qty: 1 on 09/02/2020 by Gianni Hubbard MD at OR [facility] Right: Hip LUDY : ORTHOPAEDICS 11/25/2024 UH1-52-28 / / [id number] Lens Intraoc 17.5 - [id number] - [id number] Implanted:Qty: 1 on 03/23/2022 by Rad Morgan MD at OR [facility] Left: Eye BAUSCH & LOMB 10/11/2026 [id number] / [id number] / [id number] Lens Intraoc 18.0 - [id number] - [id number] Implanted:Qty: 1 on 03/30/2022 by Rad Morgan MD at OR [facility] Right: Eye BAUSCH & LOMB 01/11/2027 [id number] / [id number] / [id number] documented as of this encounter Visit Diagnoses [...] the patient have Health Care Power of Home School Coordinator? No No Code 03/30/2022 6:32 AM 03/30/2022 12:51 PM Th is order reflects the patients wishes and were consensually agreed upon. Question Answer Comments Discussion of Advance Directives occurred with: Patient Does the patient have a Living Will? No Does the patient have Health Care Power of Home School Coordinator? No No Code 03/23/2022 9:56 AM 03/23/2022 4:51 PM Thi s order reflects the patients wishes and were consensually agreed upon. Question Answer Comments Discussion of Advance Directives occurred with: Patient Does the patient have a Living Will? No Does the patient have Health Care Power of Home School Coordinator? No Full Code 11/26/2021 11:29 PM 11/30/2021 5:09 PM This order reflects the patients wishes and were consensually agreed upon. Question Answer Comments Discussion of Advance Directives occurred with: Patient/Family Care Teams Chief Dispatcher Service Relationship Specialty Start Date End Date Kaiser Amanda MD [address] [place] [address] PCP - General Family Medicine 04/11/21 documented as of this encounter
--- OUTSIDE RECORDS SUMMARY | 2024-01-29 20:45 | External Medical Summary | Summary of Care ---
Author Name Unknown Organization [facility] Address [address] [facility] [place] [address] Phone [phone] Care Team Providers Care Pool Servicer Name Role Phone Kaiser Amanda MD Primary Care Provider [phone] Reason for Visit * Reason Onset Date Comments Advice 09/20/2023 Patient needs a good neurologist to be seen by in [place] if at all possible. Encounter Details Date Type Department Care Team (Late st Contact Info) Description 09/20/[address] [facility] [address] [place] [phone] Kaiser Amanda MD [address] [place] [address] Advice (Patient needs a good neurologist t... Allergies Active Allergy Reactions Criticality Noted Date Comments Cat Dander Itching 07/14/2016 documented as of this encounter (statuses as of 09/25/2023) Medications Medication Sig Dispensed Refills Start Date [...] - [place]),Type 2 diabetes mellitus with polyneuropathy ([facility]) Check [...] ([facility] [place]) TAKE 1 TABLET BY MOUTH DAILY. TAKE [...] pe 2 diabetes mellitus with polyneuropathy ([facility] [place]),Type 2 diabetes mellitus with hemoglobin A1c goal of less than 7.5% ([facility] [place]) USE STRIP TO CHECK GLUCOSE ONCE DAILY 100 Strip 3 07/16/2023 Active metFORMIN HCl 1000 MG Oral Tablet (Glucophage) TAKE 1 TABLET BY MOUTH TWICE A DAY WITH BREAKFAST AND DINNER 180 Tablet 1 07/21/2023 Active Nitroglycerin 0.4 MG Sublingual Tablet Sublingual (Nitrostat)Indicatio ns:Stable angina ([facility]) Place 1 Tablet under the tongue every [...] anxiety,Type 2 diabetes mellitus with polyneuropathy ([facility] [place]) TAKE 1 TABLET BY MOUTH IN THE MORNING AND 1 TABLET BEFORE BEDTIME 180 Tablet 1 09/18/2023 Active documented as of this encounter (statuses as of 09/25/2023) Active Problems Problem Noted Date Diagnosed Date [...] as of this encounter (statuses as of 09/25/2023) Resolved Problems Problem Noted Date Diagnosed Date [...] as of this encounter (statuses as of 09/25/2023) Immunizations Name Administration Dates Next Due COVID-19 [...] Encounter - Mary Garnett LPN - 09/25/2023 10:01 AM EDT Pt's informed, agreeable to 09/27/[address] Amanda; appt cx'd with Dr Younger on 09/28/23 * Telephone Encounter - Kaiser Amanda MD - 09/25/2023 9:15 AM EDT Please cancel appointment on 09/27 with Aren, he's scheduled with me on 09/26. Will discuss cause then, place referral as needed * Telephone Encounter - Torie Hall MED ASSIST - 09/20/2023 10:36 AM EDT Spoke to to let her know Dr Amanda is out oft he office til 09/23. Made HFU appt for 09/27/[address] Amanda. She is aware he will look at message when he returns. * Telephone Encounter - Mauricio Stuart OSA - 09/20/2023 8:51 AM EDT Kaiser Amanda MD Jill the of this patient is calling and stated that he was sent to [facility] was then taken too [facility] due to a head injury on 09/05/23. Was D/C on 09/07/23. Then had a fall again at home on 09/09/23 at 4:30 AM he had his fall and was taken back to the [facility] ED and than taken to the [facility]. He is due to be D/C on Sunday09/24/23. is asking if the PCP know any good Neurologist that he can be seen to be checked out. No one knows why he keeps on falling. Is he having mini strokes or what no one knows.. Please give the the a call back to discuss this. The Rehab will call for him to be seen for his Rehab D/C F/U appointment. documented in this encounter Plan of Treatment Upcoming Encounters Date Type Department Care Team (Late st Contact Info) Description 09/26/2023 5:50 PM EDT Anticoagulation Pharmacy, [place] [address] [place] [address] Pharmacist2, [facility] [place] [address] [place] [address] 09/27/2023 2:40 PM EDT [facility] [address] [phone] Kaiser Amanda MD [address] [place] [address] 10/22/2023 9:15 AM EDT Office Visit Urology Ale[place]inal[place] 27 [address] [place] [address] Bert Boogie Jr., MD 27 [address] 270 [place] [address] 01/21/2024 2:00 PM EDT Office Visit Endocrinology, [place] [address] [place] [address] Sakina Jones MD [address] [place] [address] 01/25/2024 3:30 PM EDT Office Visit [facility] Surgery [facility] [address] [place] [address] Laney Hogue MD 200 [place] [address] 02/25/2024 9:20 AM EDT [facility] [address] [phone] Kaiser Amanda MD [address] [place] [address] Scheduled Procedures Name Priority Associated Diagnoses Date/Ti [...] D LEVEL ONCE IN A LIFETIME-USE SMARTSET# [id number] Completed 07/26/2023, 02/26/2023, 01/23/2023, Additional history exists [...] this encounter Medical Devices Implanted Type Area Sap Director Device Identifier Shelf Expiration Date Model / Serial / Lot Cement Bone Simplex Hv & G - [id number] Implanted:Qty: 2 on 09/02/2020 by Gianni Hubbard MD at OR [facility] Right: Hip LUDY : ORTHOPAEDICS 08/11/2021 6195-1-010 / / [id number] Spacer Ring Aclde Distal Lg 14 - [id number] Implanted:Qty: 1 on 09/02/2020 by Gianni Hubbard MD at OR [facility] Right: Hip LUDY : ORTHOPAEDICS 11/25/2024 8480-5624 / / Accolade C Cs 127 6 37/158 - [id number] Implanted:Qty: 1 on 09/02/2020 by Gianni Hubbard MD at OR [facility] Right: Hip LUDY : ORTHOPAEDICS 05/29/2023 6057-0637D / / [id number] Hip Cocr Lfit Head V40 28/+4 - [id number] Implanted:Qty: 1 on 09/02/2020 by Gianni Hubbard MD at OR [facility] Right: Hip LUDY : ORTHOPAEDICS 11/15/2024 6260-9-228 / / [id number] Hip Head Bipol Uhr Uni 28x52 - [id number] Implanted:Qty: 1 on 09/02/2020 by Gianni Hubbard MD at OR [facility] Right: Hip LUDY : ORTHOPAEDICS 11/25/2024 UH1-52-28 / / [id number] Lens Intraoc 17.5 - [id number] - [id number] Implanted:Qty: 1 on 03/23/2022 by Rad Morgan MD at OR [facility] Left: Eye BAUSCH & LOMB 10/11/2026 [id number] / [id number] / [id number] Lens Intraoc 18.0 - [id number] - [id number] Implanted:Qty: 1 on 03/30/2022 by Rad Morgan MD at OR [facility] Right: Eye BAUSCH & LOMB 01/11/2027 [id number] / [id number] / [id number] documented as of this encounter Advance Directives [...] the patient have Health Care Power of Pediatric Hospitalist? No No Code 03/30/2022 6:32 AM 03/30/2022 12:51 PM Th is order reflects the patients wishes and were consensually agreed upon. Question Answer Comments Discussion of Advance Directives occurred with: Patient Does the patient have a Living Will? No Does the patient have Health Care Power of Pediatric Hospitalist? No No Code 03/23/2022 9:56 AM 03/23/2022 4:51 PM Thi s order reflects the patients wishes and were consensually agreed upon. Question Answer Comments Discussion of Advance Directives occurred with: Patient Does the patient have a Living Will? No Does the patient have Health Care Power of Pediatric Hospitalist? No Full Code 11/26/2021 11:29 PM 11/30/2021 5:09 PM This order reflects the patients wishes and were consensually agreed upon. Question Answer Comments Discussion of Advance Directives occurred with: Patient/Family Care Teams Pool Servicer Relationship Specialty Start Date End Date Kaiser Amanda MD 21 [facility] [place] [address] PCP - General Family Medicine 04/11/21 documented as of this encounter
--- OUTSIDE RECORDS SUMMARY | 2024-01-29 20:45 | External Medical Summary | Summary of Care ---
Author Name Unknown Organization [facility] Address 100 [facility] [place] [address] Phone [phone] Care Team Providers Care Merchandiser Name Role Phone Kaiser Amanda MD Primary Care Provider [phone] Reason for Visit * Reason Onset Date Comments Home Health 09/26/2023 Encounter Details Date Type Department Care Team (Late st Contact Info) Description [facility]/26[facility]2023 [facility] [place] [phone] Kaiser Amanda MD 21 [facility] [place] [address] Home Health Allergies Active Allergy Reactions [...] A1c goal of less than 7.5% ([facility]),Type 2 diabetes mellitus with polyneuropathy ([facility]) Check BS once daily E11.9 100 Each [...] with anxiety,Type 2 diabetes mellitus with polyneuropathy ([facility]) TAKE 1 TABLET BY MOUTH IN THE [...] encounter Miscellaneous Notes * Telephone Encounter - Shirley Driver LPN - 09/26/2023 11:39 AM EDT HH PT/OT/ST Eval Start of Care/Continuation ANGELLA Mercer, Calling from: Mario PERALES Plan of care: 2 times per week for 4 weeks: Then 1 times a week for 1 weeks Focusing on: ADLs, functional mobility, strengthening and transfers. Concerns: no Symptoms: none Vitals: T 97.3 P 86 RR 17 BP 11/62 SP O2 94% RA Lung sounds NA Weight NA Blood sugar NA, pt did not take BSG this AM Narrative: ANGELLA Mercer did pt's eval today and has no concerns. Call back Sylvie with any advice or orders at [phone]. Advised that additional visit orders will be signed by Kaiser Amanda MD and to fax to the office for signature documented in this encounter Plan of Treatment Upcoming Encounters Date Type Department Care Team (Late st Contact Info) Description 09/26/2023 5:50 PM EDT Anticoagulation Pharmacy, [address] [place] [address] Pharmacist2, [address] [place] [address] History of pulmonary embolism*; History of DVT (deep vein thrombosis) 09/27/2023 2:40 PM EDT Office Visit [facility] 21 [facility] [phone] Kaiser Amanda MD 21 [place] [address] 09/28/2023 5:10 PM EDT Anticoagulation Pharmacy, [place] [address] [place] [address] Pharmacist2, [address] [place] [address] 10/22/2023 9:15 AM EDT Office Visit Urology Aleida Rinaldi [place] 27 [address] [facility] [address] [place] [address] Bert Boogie Jr., MD 27 Ale[address] [facility] [address] [place] [address] 01/21/2024 2:00 PM EDT Office Visit Endocrinology, [place] [address] [place] [facility] [address] Sakina Jones MD [address] [place] [address] 01/25/2024 3:30 PM EDT Office Visit [facility] Surgery [facility] [address] [place] [address] Laney Hogue MD [address] [place] [address] 02/25/2024 9:20 AM EDT Office Visit [facility] [address] [phone] Kaiser Amanda MD [address] [place] [phone] Scheduled Procedures Name Priority Associated Diagnoses Date/Ti [...] CUFF VALIDATION YEARLY 12/27/2023 12/26/2022 Albumin/Creatinine Ratio 01/11/20242 023, 07/07/2021, 12/16/2018, Additional history exists HbA1c [...] D LEVEL ONCE IN A LIFETIME-USE SMARTSET# [id number] Completed 07/26/2023, 02/26/2023, 01/23/2023, Additional history exists [...] this encounter Medical Devices Implanted Type Area Grain Cleaner And Transfer Operator Device Identifier Shelf Expiration Date Model / Serial / Lot Cement Bone Simplex Hv & G - [id number] Implanted:Qty: 2 on 09/02/2020 by Gianni Hubbard MD at OR [facility] Right: Hip LUDY : ORTHOPAEDICS 08/11/2021 6195-1-010 / / [id number] Spacer Ring Aclde Distal Lg 14 - [id number] Implanted:Qty: 1 on 09/02/2020 by Gianni Hubbard MD at OR [facility] Right: Hip LUDY : ORTHOPAEDICS 11/25/2024 6515-2806 / / Accolade C Cs 127 6 37/158 - [id number] Implanted:Qty: 1 on 09/02/2020 by Gianni Hubbard MD at OR [facility] Right: Hip LUDY : ORTHOPAEDICS 05/29/2023 6057-0637D / / [id number] Hip Cocr Lfit Head V40 28/+4 - [id number] Implanted:Qty: 1 on 09/02/2020 by Gianni Hubbard MD at OR [facility] Right: Hip LUDY : ORTHOPAEDICS 11/15/2024 6260-9-228 / / [id number] Hip Head Bipol Uhr Uni 28x52 - [id number] Implanted:Qty: 1 on 09/02/2020 by Gianni Hubbard MD at OR [facility] Right: Hip LUDY : ORTHOPAEDICS 11/25/2024 UH1-52-28 / / [id number] Lens Intraoc 17.5 - [id number] - [id number] Implanted:Qty: 1 on 03/23/2022 by Rad Morgan MD at OR [facility] Left: Eye BAUSCH & LOMB 10/11/2026 [id number] / [id number] / [id number] Lens Intraoc 18.0 - [id number] - [id number] Implanted:Qty: 1 on 03/30/2022 by Rad Morgan MD at OR [facility] Right: Eye BAUSCH & LOMB 01/11/2027 [id number] / [id number] / [id number] documented as of this encounter Advance Directives [...] the patient have Health Care Power of Roll Forger? No No Code 03/30/2022 6:32 AM 03/30/2022 12:51 PM Th is order reflects the patients wishes and were consensually agreed upon. Question Answer Comments Discussion of Advance Directives occurred with: Patient Does the patient have a Living Will? No Does the patient have Health Care Power of Roll Forger? No No Code 03/23/2022 9:56 AM 03/23/2022 4:51 PM Thi s order reflects the patients wishes and were consensually agreed upon. Question Answer Comments Discussion of Advance Directives occurred with: Patient Does the patient have a Living Will? No Does the patient have Health Care Power of Roll Forger? No Full Code 11/26/2021 11:29 PM 11/30/2021 5:09 PM This order reflects the patients wishes and were consensually agreed upon. Question Answer Comments Discussion of Advance Directives occurred with: Patient/Family Care Teams Merchandiser Relationship Specialty Start Date End Date Kaiser Amanda MD [address] [place] [address] PCP - General Family Medicine 04/11/21 documented as of this encounter
--- OUTSIDE RECORDS SUMMARY | 2024-01-29 20:46 | External Medical Summary ---
Author Name Unknown Address Unknown Organization K09:[facility] [place] [address] Laboratory Report Ordering Provider Test Date Status FERNANDO ROMO 09/19/2023 05:33:03 Final Observation Date Value Abnormality Reference (Units ) Status BUN 09/19/2023 05:33:03 22 Above high normal 6-20 (mg/dL) Final Creatinine 09/19/2023 05:33:03 1.1 0.6-1.2 (mg/dL) Final Glomerular filtration rate/1.73 sq M.predicted [Volume Rate/Area] in Serum, Plasma or Blood by Creatinine-based formula (CKD-EPI) 09/19/2023 05:33:03 73 >=60 (mL/min) Final eGFR is calculated based on the CKD-EPI 2020 equation Sodium 09/19/2023 05:33:03 141 135-146 (m mol/L) Final Potassium 09/19/2023 05:33:03 4.7 3.5-5.1 (m mol/L) Final Cl 09/19/2023 05:33:03 104 98-107 (mm ol/L) Final CO2 09/19/2023 05:33:03 22 22-32 (mmo l/L) Final Anion gap 09/19/2023 05:33:03 15 7-15 (mmol /L) Final Glucose 09/19/2023 05:33:03 103 70-120 (mg /dL) Final Calcium 09/19/2023 05:33:03 9.5 8.4-10.2 ( mg/dL) Final Performing Location [facility] [place] [address]
--- OUTSIDE RECORDS SUMMARY | 2024-01-29 20:46 | External Medical Summary ---
Author Name Unknown Address Unknown Organization K09:[facility] [place] [address] Laboratory Report Ordering Provider Test Date Status FERNANDO ROMO 09/19/2023 05:33:03 Final Observation Date Value Abnormality Reference (Units ) Status WBC, Total 09/19/2023 05:33:03 6.80 4.00-10.8 0 (K/uL) Final RBC 09/19/2023 05:33:03 3.60 4.50-5.25 (M/uL) Final Hemoglobin 09/19/2023 05:33:03 11.2 Below low normal 14 .0-16.8 (g/dL) Final HCT 09/19/2023 05:33:03 35.7 Below low normal 40. 0-48.4 (%) Final MCV 09/19/2023 05:33:03 99.2 82.0-99.5 (fL) Final MCH 09/19/2023 05:33:03 31.1 27.0-34.0 (pg) Final MCHC 09/19/2023 05:33:03 31.4 32.0-36.0 (g/dL) Final RDW 09/19/2023 05:33:03 14.6 11.5-15.5 (%) Final Platelets 09/19/2023 05:33:03 225 140-400 (K /uL) Final MPV 09/19/2023 05:33:03 10.1 6.6-11.1 ( fL) Final Performing Location [facility] [place] [address]
--- OUTSIDE RECORDS SUMMARY | 2024-01-29 20:46 | External Medical Summary | Summary of Care ---
Author Name Unknown Organization [facility] Address [address] [place] [place] [place] [address] Phone [phone] Care Team Providers Care Lease Operator Name Role Phone Kaiser Amanda MD Primary Care Provider [phone] Reason for Visit * Reason Comments Other TOV Encounter Details Date Type Department Care Team (Late st Contact Info) Description 09/21/2023 1:00 PM EDT Nurse Only Urology Rolo Colon [address] [place] [address] [place] [address] Nurse Rolo Urology TREY Boogie [address] [place] [address] [place] [address] Other (TOV) Allergies Active Allergy Reactions Criticality Noted Date Comments Cat Dander Itching 07/14/2016 documented as of this encounter (statuses as of 09/21/2023) Medications Medication Sig Dispensed Refills Start Date End Date Status OneTouch Ultra 2 w/Device KitIndications:Type 2 diabetes mellitus with hemoglobin A1c goal of less than 7.5% ([facility]) Testing blood sugars twice daily Dx: E11.9 1 Kit 11 06/06/2021 Active OneTouch Delica Lancets 30GIndications:Type 2 diabetes mellitus with hemoglobin A1c goal of less than 7.5% (HCC),Type 2 diabetes mellitus with polyneuropathy ([facility]) Check BS once daily E11.9 100 [...] Blood)Indications: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 ([facility]),Type 2 diabetes mellitus with hemoglobin A1c goal of less than 7.5% ([facility]) USE STRIP TO CHECK GLUCOSE ONCE DAILY 100 Strip 3 07/16/2023 Active metFORMIN HCl 1000 MG Oral Tablet (Glucophage) TAKE 1 TABLET BY MOUTH TWICE A DAY WITH BREAKFAST AND DINNER 180 Tablet 1 07/21/2023 Active Nitroglycerin 0.4 MG Sublingual Tablet Sublingual (Nitrostat)Indicatio ns:Stable angina ([facility]) Place 1 Tablet [...] with anxiety,Type 2 diabetes mellitus with polyneuropathy ([facility]) TAKE 1 TABLET BY MOUTH IN THE MORNING AND 1 TABLET BEFORE BEDTIME 180 Tablet 1 09/18/2023 Active documented as of this encounter (statuses as of 09/21/2023) Active Problems Problem Noted Date Diagnosed Date [...] as of this encounter (statuses as of 09/21/2023) Resolved Problems Problem Noted Date Diagnosed Date [...] as of this encounter (statuses as of 09/21/2023) Immunizations Name Administration Dates Next Due COVID-19 [...] No 09/09/2023 documented as of this encounter Nursing Notes * Mónica Collier LPN - 09/21/2023 1:29 PM EDT Chief Complaint Patient presents with Other TOV Patient's bladder was instilled 180 cc of NSS. Catheter balloon then deflated and catheter removed.Patient proceeded to void, spontaneously for approximately 150 cc of pink urine. Patient tolerated procedure well. documented in this encounter Plan of Treatment Upcoming Encounters Date Type Department Care Team (Late st Contact Info) Description 09/26/2023 5:50 PM EDT Anticoagulation Pharmacy, [place] [address] [place] [address] Pharmacist2, [facility] [place] [address] [place] [address] 09/27/2023 2:40 PM EDT Office Visit [facility] 21 [facility] [address] [place] [phone] Kaiser Amanda MD [facility] [place] [phone] 09/28/2023 11:00 AM EDT Office Visit [facility] [address] [place] [phone] Lucila Younger MD [address] [facility] [place] [address] 10/22/2023 9:15 AM EDT Office Visit Urology [place] Rinaldi [place] [address] [facility] [address] [place], [place] [id number] Bert Boogie Jr., MD [facility] [address] [place] [address] 01/21/2024 2:00 PM EDT Office Visit Endocrinology, [place] [address] [place] [address] Sakina Jones MD [address] [place] [address] 01/25/2024 3:30 PM EDT Office Visit [facility] 200 [facility] [place] [address] Laney Hogue MD 200 [place] [address] 02/25/2024 9:20 AM EDT Office Visit [facility] [address] [place] [phone] Kaiser Amanda MD [address] [id number] Scheduled Procedures Name Priority Associated Diagnoses Date/Ti [...] D LEVEL ONCE IN A LIFETIME-USE SMARTSET# [id number] Completed 07/26/2023, 02/26/2023, 01/23/2023, Additional history exists [...] this encounter Medical Devices Implanted Type Area Hog Ribber Device Identifier Shelf Expiration Date Model / Serial / Lot Cement Bone Simplex Hv & G - [id number] Implanted:Qty: 2 on 09/02/2020 by Gianni Hubbard MD at OR [facility] Right: Hip LUDY : ORTHOPAEDICS 08/11/2021 6195-1-010 / / [id number] Spacer Ring Aclde Distal Lg 14 - [id number] Implanted:Qty: 1 on 09/02/2020 by Gianni Hubbard MD at OR [facility] Right: Hip LUDY : ORTHOPAEDICS 11/25/2024 [id number] / / Accolade C 127 6 37/158 - [id number] Implanted:Qty: 1 on 09/02/2020 by Gianni Hubbard MD at OR [facility] Right: Hip LUDY : ORTHOPAEDICS 05/29/2023 6057-0637D / / [id number] Hip Cocr Lfit Head V40 28/+4 - [id number] Implanted:Qty: 1 on 09/02/2020 by Gianni Hubbard MD at OR [facility] Right: Hip LUDY : ORTHOPAEDICS 11/15/2024 6260-9-228 / / [id number] Hip Head Bipol r [facility] 28x52 - [id number] Implanted:Qty: 1 on 09/02/2020 by Gianni Hubbard MD at OR [facility] Right: Hip LUDY : ORTHOPAEDICS 11/25/2024 1-52-28 / / [id number] Lens Intraoc 17.5 - [id number] - [id number] Implanted:Qty: 1 on 03/23/2022 by Rad Morgan MD at OR [facility] Left: Eye BAUSCH & LOMB 10/11/2026 [id number] / [id number] / [id number] Lens Intraoc 18.0 - [id number] - [id number] Implanted:Qty: 1 on 03/30/2022 by Rad Morgan MD at OR [facility] Right: Eye BAUSCH & LOMB 01/11/2027 [id number] / [id number] / [id number] documented as of this encounter Visit Diagnoses Diagnosis BPH with obstruction/lower urinary tract symptoms- Primary Hypertrophy of prostate with urinary obstruction and other lower urinary tract symptoms (LUTS) documented in this encounter Advance Directives Latest [...] the patient have Health Care Power of Cutting And Splicing Supervisor? No No Code 03/30/2022 6:32 AM 03/30/2022 12:51 PM Th is order reflects the patients wishes and were consensually agreed upon. Question Answer Comments Discussion of Advance Directives occurred with: Patient Does the patient have a Living Will? No Does the patient have Health Care Power of Cutting And Splicing Supervisor? No No Code 03/23/2022 9:56 AM 03/23/2022 4:51 PM Th is order reflects the patients wishes and were consensually agreed upon. Question Answer Comments Discussion of Advance Directives occurred with: Patient Does the patient have a Living Will? No Does the patient have Health Care Power of Cutting And Splicing Supervisor? No Full Code 11/26/2021 11:29 PM 11/30/2021 5:09 PM This order reflects the patients wishes and were consensually agreed upon. Question Answer Comments Discussion of Advance Directives occurred with: Patient/Family Care Teams Lease Operator Relationship Specialty Start Date End Date Kaiser Amanda MD [address] [place] [address] PCP - General Family Medicine 04/11/21 documented as of this encounter
--- OUTSIDE RECORDS SUMMARY | 2024-01-29 20:46 | External Medical Summary | Summary of Care ---
Author Name Unknown Organization [facility] Address [address] [facility] [address] Phone [phone] Care Team Providers Care Instrument Processing Tech Name Role Phone Kaiser Amanda MD Primary Care Provider [phone] Reason for Visit * Reason Onset Date Comments Encounter Created in Error 09/14/2023 Encounter Details Date Type Department Care Team (Late st Contact Info) Description 09/14/2023 Telephone [facility] [place] 21 [facility] [place] [phone] Kaiser Amanda MD 21 [facility] [place] [address] Encounter Created in Error Allergies Active Allergy Reactions Criticality Noted Date Comments Cat Dander Itching 07/14/2016 documented as of this encounter (statuses as of 09/14/2023) Medications Medication Sig Dispensed Refills Start Date [...] less than 7.5% ([facility]) TAKE 1 TABLET BY MOUTH DAILY. TAKE 30 MINUTES BEFORE A MEAL 90 Tablet 3 12/26/2022 Active DULoxetine HCl 60 MG Oral Capsule Delayed Release Particles (Cymbalta)Indication s:Depression with anxiety Take 1 Capsule by mouth in the morning. 90 Capsule 3 12/26/2022 Active Amitriptyline HCl 25 MG Oral Tablet (Elavil)Indications: Depression with anxiety,Type 2 diabetes mellitus with polyneuropathy ([facility]) Take 1 Tablet by mouth in the morning and 1 Tablet before bedtime. 60 Tablet 6 12/28/2022 Active Hydrocortisone 2.5 % External Cream Apply [...] pe 2 diabetes mellitus with polyneuropathy ([facility]),Type 2 diabetes mellitus with hemoglobin A1c goal of less than 7.5% ([facility]) USE STRIP TO CHECK GLUCOSE ONCE DAILY 100 Strip 3 07/16/2023 Active metFORMIN HCl 1000 MG Oral Tablet (Glucophage) TAKE 1 TABLET BY MOUTH TWICE A DAY WITH BREAKFAST AND DINNER 180 Tablet 1 07/21/2023 Active Nitroglycerin 0.4 MG Sublingual Tablet Sublingual (Nitrostat)Indicatio ns:Stable angina ([facility]) Place 1 Tablet under [...] before September 12, 2023. 0 09/12/2023 Active documented as of this encounter (statuses as of 09/14/2023) Active Problems Problem Noted Date Diagnosed Date [...] as of this encounter (statuses as of 09/14/2023) Resolved Problems Problem Noted Date Diagnosed Date [...] as of this encounter (statuses as of 09/14/2023) Immunizations Name Administration Dates Next Due COVID-19 [...] Care Team (Late st Contact Info) Description 09/19/2023 5:50 PM EDT Anticoagulation Pharmacy, [place] [address] [place] [address] Pharmacist2, [facility] [address] [place] [address] 09/21/2023 9:00 AM EDT Nurse Only Urology Rolo Colon [address] [place] [address] [place] [address] Nurse Rolo Urology TREY Boogie [address] [place] [address] [place] [address] 10/22/2023 9:15 AM EDT Office Visit Urology Rolo Colon [address] [facility] [address] [place] [address] Bert Boogie Jr., MD [address] [place] [address] [place] [address] 01/21/2024 2:00 PM EDT Office Visit Endocrinology, [place] [address] [place] [address] Sakina Jones MD [address] [place] [address] 01/25/2024 3:30 PM EDT Office Visit [facility] Surgery [facility] 200 [place] [address] Laney Hogue MD [address] [place] [address] 02/25/2024 9:20 AM EDT Office Visit [facility] [address] [place] [place] [phone] Kaiser Amanda MD [address] [place] [address] Scheduled Procedures Name Priority Associated Diagnoses Date/Ti [...] 0 06/09/2022, 04/11/2021, Additional history exists GFR 09/11/2024 09/12/2023, 08/14, 09/10/2023, Additional history exists DXA Scan 01/25/2025 01/25/2023, [...] D LEVEL ONCE IN A LIFETIME-USE SMARTSET# [id number] Completed 07/26/2023, 02/26/2023, 01/23/2023, Additional history exists [...] this encounter Medical Devices Implanted Type Area Bag Loader Machine Operator Device Identifier Shelf Expiration Date Model / Serial / Lot Cement Bone Simplex Hv & G - [id number] Implanted:Qty: 2 on 09/02/2020 by Gianni Hubbard MD at OR [facility] Right: Hip LUDY : ORTHOPAEDICS 08/11/2021 6195-1-010 / / [id number] Spacer Ring Aclde Distal Lg 14 - [id number] Implanted:Qty: 1 on 09/02/2020 by Gianni Hubbard MD at OR [facility] Right: Hip LUDY : ORTHOPAEDICS 11/25/2024 0404-0304 / / Accolade C Cs 127 6 37/158 - [id number] Implanted:Qty: 1 on 09/02/2020 by Gianni Hubbard MD at OR [facility] Right: Hip LUDY : ORTHOPAEDICS 05/29/2023 6057-0637D / / [id number] Hip Cocr Lfit Head V40 28/+4 - [id number] Implanted:Qty: 1 on 09/02/2020 by Gianni Hubbard MD at OR [facility] Right: Hip LUDY : ORTHOPAEDICS 11/15/2024 6260-9-228 / / [id number] Hip Head Bipol Uhr Uni 28x52 - [id number] Implanted:Qty: 1 on 09/02/2020 by Gianni Hubbard MD at OR [facility] Right: Hip LUDY : ORTHOPAEDICS 11/25/2024 UH1-52-28 / / [id number] Lens Intraoc 17.5 - [id number] - [id number] Implanted:Qty: 1 on 03/23/2022 by Rad Morgan MD at OR [facility] Left: Eye BAUSCH & LOMB 10/11/2026 [id number] / [id number] / [id number] Lens Intraoc 18.0 - [id number] - [id number] Implanted:Qty: 1 on 03/30/2022 by Rad Morgan MD at OR [facility] Right: Eye BAUSCH & LOMB 01/11/2027 [id number] / [id number] / [id number] documented as of this encounter Advance Directives [...] patient have Health Care Power of Manager Labor Delivery? No No Code 03/30/2022 6:32 AM 03/30/2022 12:51 PM Th is order reflects the patients wishes and were consensually agreed upon. Question Answer Comments Discussion of Advance Directives occurred with: Patient Does the patient have a Living Will? No Does the patient have Health Care Power of Manager Labor Delivery? No No Code 03/23/2022 9:56 AM 03/23/2022 4:51 PM Thi s order reflects the patients wishes and were consensually agreed upon. Question Answer Comments Discussion of Advance Directives occurred with: Patient Does the patient have a Living Will? No Does the patient have Health Care Power of Manager Labor Delivery? No Full Code 11/26/2021 11:29 PM 11/30/2021 5:09 PM This order reflects the patients wishes and were consensually agreed upon. Question Answer Comments Discussion of Advance Directives occurred with: Patient/Family Care Teams Instrument Processing Tech Relationship Specialty Start Date End Date Kaiser Amanda MD [address] [address] PCP - General Family Medicine 04/11/21 documented as of this encounter
--- OUTSIDE RECORDS SUMMARY | 2024-01-29 20:46 | External Medical Summary | Summary of Care ---
Author Name Unknown Organization [facility] Address [address] [facility] [address] Phone [phone] Care Team Providers Care Banana Expert Name Role Phone Kaiser Amanda MD Primary Care Provider [phone] Reason for Visit * Reason Comments Dosage Adjustment Via Phone (anticoag Cl inic) Encounter Details Date Type Department Care Team (Late st Contact Info) Description 09/19/2023 5:50 PM EDT [facility] [address] [facility] [place] [address] Pharmacist2, [facility] [address] [address] History of pulmonary embolism*; History of DVT (deep vein thrombosis) Allergies Active Allergy Reactions Criticality Noted Date Comments Cat Dander Itching 07/14/2016 documented as of this encounter (statuses as of 09/19/2023) Medications Medication Sig Dispensed Refills Start Date [...] mellitus with polyneuropathy ([facility]) TAKE 1 TABLET BY MOUTH IN THE MORNING AND 1 TABLET BEFORE BEDTIME 180 Tablet 1 09/18/2023 Active documented as of this encounter (statuses as of 09/19/2023) Active Problems Problem Noted Date Diagnosed Date [...] as of this encounter (statuses as of 09/19/2023) Resolved Problems Problem Noted Date Diagnosed Date [...] as of this encounter (statuses as of 09/19/2023) Immunizations Name Administration Dates Next Due COVID-19 [...] Progress Notes * Ema Wood RPh - 09/19/2023 9:11 AM EDT [phone], [facility] Spoke with Jae who confirms patient remains admitted at facility. Follow up in 1 week. Ema Wodo RPH Clinical Pharmacist 09/19/2023, 9:12 AM documented in this encounter Plan of Treatment Upcoming Encounters Date Type Department Care Team (Late st Contact Info) Description 09/21/2023 9:00 AM EDT Nurse Only Urology [place] RinaldiRolo [address] [place] [address] [place] [address] [place], Nurse Urologstephen Boogie RN [address] [place] [address] [place] [address] 09/26/2023 5:50 PM EDT Anticoagulation Pharmacy, [place] [address] [place] [address] Pharmacist2, [facility] [place] [address] [place] [address] 10/22/2023 9:15 AM EDT Office Visit [facility] [place] RinaldiRolo [address] [place] [address] [place] [address] Bert Boogie Jr., MD [address] [place] [address] [place] [address] 01/21/2024 2:00 PM EDT Office Visit Endocrinology, [place] [address] [place] [address] Sakina Jones MD [address] [place] [address] 01/25/2024 3:30 PM EDT Office Visit [facility] 200 [place] [address] Laney Hogue MD 200 [facility] [address] 02/25/2024 9:20 AM EDT Office Visit Family Practice, [place] [address] [phone] Kaiser Amanda MD [address] [address] [...] D LEVEL ONCE IN A LIFETIME-USE SMARTSET# [id number] Completed 07/26/2023, 02/26/2023, 01/23/2023, Additional history exists [...] encounter Medical Devices Implanted Type Area Ad Compositor Device Identifier Shelf Expiration Date Model / Serial / Lot Cement Bone Simplex Hv & G - [id number] Implanted:Qty: 2 on 09/02/2020 by Gianni Hubbard MD at OR [facility] Right: Hip LUDY : ORTHOPAEDICS 08/11/2021 6195-1-010 / / [id number] Spacer Ring Aclde Distal Lg 14 - [id number] Implanted:Qty: 1 on 09/02/2020 by Gianni Hubbard MD at OR [facility] Right: Hip LUDY : ORTHOPAEDICS 11/25/2024 6191-9121 / / Accolade C Cs 127 6 37/158 - [id number] Implanted:Qty: 1 on 09/02/2020 by Gianni Hubbard MD at OR [facility] Right: Hip LUDY : ORTHOPAEDICS 05/29/2023 6057-0637D / / [id number] Hip Cocr Lfit Head V40 28/+4 - [id number] Implanted:Qty: 1 on 09/02/2020 by Gianni Hubbard MD at OR [facility] Right: Hip LUDY : ORTHOPAEDICS 11/15/2024 6260-9-228 / / [id number] Hip Head Bipol Uhr Uni 28x52 - [id number] Implanted:Qty: 1 on 09/02/2020 by Gianni Hubbard MD at OR [facility] Right: Hip LUDY : ORTHOPAEDICS 11/25/2024 UH1-52-28 / / [id number] Lens Intraoc 17.5 - [id number] - [id number] Implanted:Qty: 1 on 03/23/2022 by Rad Morgan MD at OR [facility] Left: Eye BAUSCH & LOMB 10/11/2026 [id number] / [id number] / [id number] Lens Intraoc 18.0 - [id number] - [id number] Implanted:Qty: 1 on 03/30/2022 by Rad Morgan MD at OR [facility] Right: Eye BAUSCH & LOMB 01/11/2027 [id number] / [id number] / [id number] documented as of this encounter Visit Diagnoses [...] the patient have Health Care Power of Windows Systems Architect? No No Code 03/30/2022 6:32 AM 03/30/2022 12:51 PM Th is order reflects the patients wishes and were consensually agreed upon. Question Answer Comments Discussion of Advance Directives occurred with: Patient Does the patient have a Living Will? No Does the patient have Health Care Power of Windows Systems Architect? No No Code 03/23/2022 9:56 AM 03/23/2022 4:51 PM Thi s order reflects the patients wishes and were consensually agreed upon. Question Answer Comments Discussion of Advance Directives occurred with: Patient Does the patient have a Living Will? No Does the patient have Health Care Power of Windows Systems Architect? No Full Code 11/26/2021 11:29 PM 11/30/2021 5:09 PM This order reflects the patients wishes and were consensually agreed upon. Question Answer Comments Discussion of Advance Directives occurred with: Patient/Family Care Teams Banana Expert Relationship Specialty Start Date End Date Kaiser Amanda MD [address] [address] PCP - General Family Medicine 04/11/21 documented as of this encounter
--- OUTSIDE RECORDS SUMMARY | 2024-01-29 20:46 | External Medical Summary | Summary of Care ---
Author Name Unknown Organization [facility] [address] [facility] [address] Phone [phone] Care Team Providers Care Quill Collector Name Role Phone Zaire Urias MD Primary Care Provider [phone] Reason for Visit * Reason Comments eRx-Medication Refill Encounter Details Date Type Department Care Team (Late st Contact Info) Description [facility] [place] [address] Zaire Urias MD 21 [facility] [place] [address] Depression with anxiety; Type 2 diabetes mellitus with polyneuropathy ([facility]) Allergies Active Allergy Reactions Criticality Noted Date Comments Cat Dander Itching 07/14/2016 documented as of this encounter (statuses as of 09/18/2023) Medications Medication Sig Dispensed Refills Start Date End Date Status OneTouch Ultra 2 w/Device KitIndications:Type 2 diabetes mellitus with hemoglobin A1c goal of less than 7.5% ([facility]) Testing blood sugars twice daily Dx: E11.9 1 Kit 11 2 Active OneTouch Delica Lancets 30GIndications:Type 2 diabetes mellitus with hemoglobin A1c goal of less than 7.5% ([facility]),Type 2 diabetes mellitus with polyneuropathy ([facility]) Check BS once daily E11.9 100 Each 0 2 Active Acetaminophen 325 MG Oral Tablet (Tylenol) Take 3 Tablets (975 mg) by mouth every 6 hours. 30 Tablet 0 2 Active Additional Information Patient taking differently:975 mg Oral Q6H,As needed, Reported on 12/26/2022 Docusate Sodium 100 MG Oral Capsule (Colace) Take 1 Capsule (100 mg) by mouth in the morning and 1 Capsule (100 mg) before bedtime. 10 Capsule 0 2 Active Polyethylene Glycol 3350 17 GM Oral Packet (Miralax) Take 1 Packet (17 g) by mouth in the morning. Do not start before April 19, 2022. 14 Each 0 2 Active Additional Information Patient taking differently:17 [...] as needed 22 g 1 3 Active Mupirocin 2 % External Ointment (Bactroban) Apply to biopsy site on left shoulder twice daily 22 g 1 3 Active Triamcinolone Acetonide 0.1 % External Cream (Aristocort) Apply to rash on abdomen twice daily as needed 80 g 5 3 Active Cinacalcet HCl 30 MG Oral Tablet (Sensipar)Indicatio ns:Hypercalcemia Take 1 tablet by mouth once daily 90 Tablet 3 3 Active Iron 325 (65 Fe) MG Oral Tablet Take 1 Tablet by mouth every evening. 0 3 Active glipiZIDE ER 10 MG Oral [...] 5 MINUTES, THEN RINSE 120 mL 0 4 Active OneTouch Verio In Vitro Strip (Glucose Blood)Indications:T ype 2 diabetes mellitus with polyneuropathy ([facility]),Type 2 diabetes mellitus with hemoglobin A1c goal of less than 7.5% ([facility]) USE STRIP TO CHECK GLUCOSE [...] needed for Pain, Chest. 25 Tablet 0 4 Active Omeprazole 20 MG Oral Capsule [...] the morning. 90 Tablet 3 4 Active levETIRAcetam 500 MG Oral Tablet (Keppra) Take 1 Tablet by mouth in the morning and 1 Tablet before bedtime. 0 4 Active Tamsulosin HCl 0.4 MG Oral Capsule (Flomax) Take 1 Capsule by mouth in the morning. Do not start before September 12, 2023. 0 4 Active Amitriptyline HCl 25 MG Oral Tablet (Elavil)Indications :Depression with anxiety,Type 2 diabetes mellitus with polyneuropathy ([facility]) TAKE 1 TABLET BY MOUTH IN THE MORNING AND 1 TABLET BEFORE BEDTIME 180 Tablet 1 4 Active Amitriptyline HCl 25 MG Oral Tablet (Elavil)Indications :Depression with anxiety,Type 2 diabetes mellitus with polyneuropathy (HCC) Take 1 Tablet by mouth in the morning and 1 Tablet before bedtime. 60 Tablet 6 3 09/18/19 24 Discontinued documented as of this encounter (statuses as of 09/18/2023) Active Problems Problem Noted Date Diagnosed Date [...] as of this encounter (statuses as of 09/18/2023) Resolved Problems Problem Noted Date Diagnosed Date [...] as of this encounter (statuses as of 09/18/2023) Immunizations Name Administration Dates Next Due COVID-19 mRNA, LNP-s, No Pre serve, 2-Dose Series ([employer]) 04/23/2021,08/09/2020,07/12/2020 Covid-19, Mrna, Lnp-s, Pf, B ivalent, 30 Mcg, IM, 12 yrs and above ([employer]) 05/19/2022 Pneumococcal Conjugate Vacc, 13 Valent (Prevnar) [...] encounter Miscellaneous Notes * Telephone Encounter - Ciara Henao [facility] - 09/18/2023 12:39 PM EDTSigned Prescriptions: Disp Refills Amitriptyline HCl 25 MG Oral Tablet (Elavi*180 Ta*1 Sig: TAKE 1 TABLET BY MOUTH IN THE MORNING AND 1 TABLET BEFORE BEDTIMEAuthorizing Provider: ZAIRE URIAS User: CIARA HENAO documented in this encounter Plan of Treatment Upcoming Encounters Date Type Department Care Team (Late st Contact Info) Description 09/19/2023 5:50 PM EDT Anticoagulation Pharmacy, [place] [address] [address] Pharmacist2, [facility] [place] [address] [place] [address] 09/21/2023 9:00 AM EDT Nurse Only Rolo Sun [address] [facility] [address] [place] [address] [place], Nurse Ashwini Boogie RN [address] [facility] [address] [place] [address] 10/22/2023 9:15 AM EDT Office Visit Rolo Sun [address] [facility] [address] [place] [address] Bert Boogie Jr., MD [address] [place] [address] [place] [address] 01/21/2024 2:00 PM EDT Office Visit Endocrinology, [place] [address] [facility] [place] [address] Sakina Jones MD [address] [place] [address] 01/25/2024 3:30 PM EDT Office Visit [facility] [address] [place] [address] Laney Hogue MD 200 [facility], [place] [address] 02/25/2024 9:20 AM EDT Office Visit [facility] [address] [place] [address] Zaire Urias MD [address] [place] [address] [address] Scheduled Procedures Name Priority Associated Diagnoses Date/Ti [...] D LEVEL ONCE IN A LIFETIME-USE SMARTSET# [id number] Completed 07/26/2023, 02/26/2023, 01/23/2023, Additional history exists [...] this encounter Medical Devices Implanted Type Area Oil Paint Shader Device Identifier Shelf Expiration Date Model / Serial / Lot Cement Bone Simplex Hv & G - [id number] Implanted:Qty: 2 on 09/02/2020 by Gianni Hubbard MD at OR [facility] Right: Hip LUDY : ORTHOPAEDICS 08/11/2021 6195-1-010 / / [id number] Spacer Ring Aclde Distal Lg 14 - [id number] Implanted:Qty: 1 on 09/02/2020 by Gianni Hubbard MD at OR [facility] Right: Hip LUDY : ORTHOPAEDICS 11/25/2024 7083-1870 / / Accolade C Cs 127 6 37/158 - [id number] Implanted:Qty: 1 on 09/02/2020 by Gianni Hubbard MD at OR [facility] Right: Hip LUDY : ORTHOPAEDICS 05/29/2023 [id number] / / [id number] Hip Cocr Lfit Head V40 28/+4 - [id number] Implanted:Qty: 1 on 09/02/2020 by Gianni Hubbard MD at OR [facility] Right: Hip LUDY : ORTHOPAEDICS 11/15/2024 6260-9-228 / / [id number] Hip Head Bipol Uhr Uni 28x52 - [id number] Implanted:Qty: 1 on 09/02/2020 by Gianni Hubbard MD at OR [facility] Right: Hip LUDY : ORTHOPAEDICS 11/25/2024 UH1-52-28 / / [id number] Lens Intraoc 17.5 - [id number] - [id number] Implanted:Qty: 1 on 03/23/2022 by Rad Morgan MD at OR [facility] Left: Eye BAUSCH & LOMB 10/11/2026 [id number] / [id number] / [id number] Lens Intraoc 18.0 - [id number] - [id number] Implanted:Qty: 1 on 03/30/2022 by Rad Morgan MD at OR [facility] Right: Eye BAUSCH & LOMB 01/11/2027 [id number] / [id number] / [id number] documented as of this encounter Visit Diagnoses Diagnosis Depression with anxiety Dysthymic disorder Type 2 diabetes mellitus with polyneuropathy (HCC) Type II or unspecified type diabetes mellitus with neurological manifestations, not stated as uncontrolled documented in this encounter Advance Directives Latest [...] the patient have Health Care Power of Digitizer? No No Code 03/30/2022 6:32 AM 03/30/2022 12:51 PM Th is order reflects the patients wishes and were consensually agreed upon. Question Answer Comments Discussion of Advance Directives occurred with: Patient Does the patient have a Living Will? No Does the patient have Health Care Power of Digitizer? No No Code 03/23/2022 9:56 AM 03/23/2022 4:51 PM Thi s order reflects the patients wishes and were consensually agreed upon. Question Answer Comments Discussion of Advance Directives occurred with: Patient Does the patient have a Living Will? No Does the patient have Health Care Power of Digitizer? No Full Code 11/26/2021 11:29 PM 11/30/2021 5:09 PM This order reflects the patients wishes and were consensually agreed upon. Question Answer Comments Discussion of Advance Directives occurred with: Patient/Family Care Teams Quill Collector Relationship Specialty Start Date End Date Zaire Urias MD [address] [place] [address] [address] PCP - General Family Medicine 04/11/21 documented as of this encounter
--- OUTSIDE RECORDS SUMMARY | 2024-01-29 20:46 | External Medical Summary | Summary of Care ---
Author Name Unknown Organization [facility] Address [address] [place] [address] Phone [phone] Care Team Providers Care Electric Shaver Mechanic Name Role Phone Kaiser Amanda MD Primary Care Provider [phone] Reason for Visit * Reason Onset Date Comments Advice 09/20/2023 Patient needs a good neurologist to be seen by in [place] if at all possible. Encounter Details Date Type Department Care Team (Late st Contact Info) Description 09/20/2023 Telephone [facility] [address] [phone] Kaiser Amanda MD [...] [facility]),Type 2 diabetes mellitus with polyneuropathy (HCC) Check [...] Tablet Sublingual (Nitrostat)Indicatio ns:Stable angina ([facility]) Place 1 Tablet under the tongue every [...] diabetes mellitus with polyneuropathy ([facility]) TAKE 1 TABLET BY MOUTH IN THE [...] and stated that he was sent to [facility] was then taken too [facility] due to a head injury on 09/05/23. Was D/C on 09/07/23. Then had a fall again at home on 09/09/23 at 4:30 AM he had his fall and was taken back to the [facility] ED and than taken to the [facility]. [...] Description 09/26/2023 5:50 PM EDT Anticoagulation Pharmacy, [place] [address] [place] [address] [address] Pharmacist2, [facility] [place] [address] 09/27/2023 2:40 PM EDT Office Visit Family Practice, [place] [address] [place] [phone] Kaiser Amanda MD [address] [place] [id number] 09/28/2023 11:00 AM EDT [facility] [address] [place] [phone] Lucila Younger MD [address] [id number] 10/22/2023 9:15 AM EDT Office Visit Urology [place] [address] [place] [address] Bert Boogie Jr., MD [address] [place] [address] [place] [facility] [place] [id number] 01/21/2024 2:00 PM EDT Office Visit Endocrinology, [place] [address] [place] [address] Sakina Jones MD [address] [place] [address] 01/25/2024 3:30 PM EDT Office Visit [facility] [address] [place] [address] Laney Hogue MD 200 [place] [address] 02/25/2024 9:20 AM EDT [facility] [address] [address] Kaiser Amanda MD [address] [id number] Scheduled Procedures Name Priority Associated Diagnoses Date/Ti [...] D LEVEL ONCE IN A LIFETIME-USE SMARTSET# [id number] Completed 07/26/2023, 02/26/2023, 01/23/2023, Additional history exists [...] this encounter Medical Devices Implanted Type Area Construction Checker Device Identifier Shelf Expiration Date Model / Serial / Lot Cement Bone Simplex Hv & G - [id number] Implanted:Qty: 2 on 09/02/2020 by Gianni Hubbard MD at OR [facility] Right: Hip LUDY : ORTHOPAEDICS 08/11/2021 6195-1-010 / / [id number] Spacer Ring Aclde Distal Lg 14 - [id number] Implanted:Qty: 1 on 09/02/2020 by Gianni Hubbard MD at OR [facility] Right: Hip LUDY : ORTHOPAEDICS 11/25/2024 5135-7806 / / Accolade C Cs 127 6 37/158 - [id number] Implanted:Qty: 1 on 09/02/2020 by Gianni Hubbard MD at OR [facility] Right: Hip LUDY : ORTHOPAEDICS 05/29/2023 6057-0637D / / [id number] Hip Cocr Lfit Head V40 28/+4 - [id number] Implanted:Qty: 1 on 09/02/2020 by Gianni Hubbard MD at OR [facility] Right: Hip LUDY : ORTHOPAEDICS 11/15/2024 6260-9-228 / / [id number] Hip Head Bipol Uhr Uni 28x52 - [id number] Implanted:Qty: 1 on 09/02/2020 by Gianni Hubbard MD at OR [facility] Right: Hip LUDY : ORTHOPAEDICS 11/25/2024 UH1-52-28 / / [id number] Lens Intraoc 17.5 - [id number] - [id number] Implanted:Qty: 1 on 03/23/2022 by Rad Morgan MD at OR [facility] Left: Eye BAUSCH & LOMB 10/11/2026 [id number] / [id number] / [id number] Lens Intraoc 18.0 - [id number] - [id number] Implanted:Qty: 1 on 03/30/2022 by Rad Morgan MD at [facility] Right: Eye BAUSCH & LOMB 01/11/2027 [id number] / [id number] / [id number] documented as of this encounter Advance Directives [...] the patient have Health Care Power of Film Composer? No No Code 03/30/2022 6:32 AM 03/30/2022 12:51 PM Th is order reflects the patients wishes and were consensually agreed upon. Question Answer Comments Discussion of Advance Directives occurred with: Patient Does the patient have a Living Will? No Does the patient have Health Care Power of Film Composer? No No Code 03/23/2022 9:56 AM 03/23/2022 4:51 PM Thi s order reflects the patients wishes and were consensually agreed upon. Question Answer Comments Discussion of Advance Directives occurred with: Patient Does the patient have a Living Will? No Does the patient have Health Care Power of Film Composer? No Full Code 11/26/2021 11:29 PM 11/30/2021 5:09 PM This order reflects the patients wishes and were consensually agreed upon. Question Answer Comments Discussion of Advance Directives occurred with: Patient/Family Care Teams Electric Shaver Mechanic Relationship Specialty Start Date End Date Kaiser Amanda MD [address] [address] PCP - General Family Medicine 04/11/21 documented as of this encounter
--- OUTSIDE RECORDS SUMMARY | 2024-01-29 20:46 | External Medical Summary | Summary of Care ---
Author Name Unknown Organization [facility] Address [address] [place] [address] Phone [phone] Care Team Providers Care Checker And Packer Name Role Phone Kaiser Amanda MD Primary Care Provider [phone] Encounter Details Date Type Department Care Team (Late st Contact Info) Description 09/06/2023 Result Scan Unspecified Department <No scans attached> Allergies Active Allergy Reactions Criticality Noted Date Comments Cat Dander Itching 07/14/2016 documented as of this encounter (statuses as of 09/18/2023) Medications Medication Sig Dispensed Refills Start Date End Date Status OneTouch Ultra 2 w/Device KitIndications:Type 2 diabetes mellitus with hemoglobin A1c goal of less than 7.5% ([facility]) Testing blood sugars twice daily Dx: E11.9 1 Kit 11 2 Active OneTouch Delica Lancets 30GIndications:Type 2 diabetes mellitus with hemoglobin A1c goal of less than 7.5% ([facility]),Type 2 diabetes mellitus with polyneuropathy ([facility]) Check BS once daily E11.9 100 Each [...] hemoglobin A1c goal of less than 7.5% ([facility]) TAKE 1 TABLET BY MOUTH DAILY. TAKE [...] MG Sublingual Tablet Sublingual (Nitrostat)Indicati ons:Stable angina ([facility]) Place 1 Tablet under the tongue every [...] the morning. 90 Tablet 3 4 Active Amitriptyline HCl 25 MG Oral Tablet (Elavil)Indications :Depression with anxiety,Type 2 diabetes mellitus with polyneuropathy ([facility]) Take 1 Tablet by mouth in the [...] mRNA, LNP-s, No Pre serve, 2-Dose Series ([employer]) 04/23/2021,08/09/2020,07/12/2020 Covid-19, Mrna, Lnp-s, Pf, B ivalent, 30 Mcg, IM, 12 yrs and above ([employer]) 05/19/2022 Pneumococcal Conjugate Vacc, 13 Valent (Prevnar) [...] No 04/15/2022 documented as of this encounter Plan of Treatment Upcoming Encounters Date Type Department Care Team (Late st Contact Info) Description 09/19/2023 5:50 PM EDT Anticoagulation Pharmacy, [place] [address] [address] Pharmacist2, [facility] [place] [address] [address] 09/21/2023 9:00 AM EDT Nurse Only Rolo Sun [address] [facility] [place] [address] Rolo Nurse Ashwini Boogie RN [address] [facility] [address] [place] [place] [address] 10/22/2023 9:15 AM EDT Office Visit Rolo Sun [address] [place] [address] [place] [address] Bert Boogie Jr., MD [address] [facility] [address] [place] [address] 01/21/2024 2:00 PM EDT Office Visit Endocrinology, [place] [address] [place] [address] Sakina Jones MD [address] [place] [address] 01/25/2024 3:30 PM EDT Office Visit [facility] [address] [place] [address] Laney Hogue MD [address] [place] [address] 02/25/2024 9:20 AM EDT Office Visit [facility] [address] [place] [address] Kaiser Amanda MD [address] [place], [place] [phone] Scheduled Procedures Name Priority Associated Diagnoses Date/Ti [...] D LEVEL ONCE IN A LIFETIME-USE SMARTSET# [id number] Completed 07/26/2023, 02/26/2023, 01/23/2023, Additional history exists [...] this encounter Medical Devices Implanted Type Area Axle Polisher Device Identifier Shelf Expiration Date Model / Serial / Lot Cement Bone Simplex Hv & G - [id number] Implanted:Qty: 2 on 09/02/2020 by Gianni Hubbard MD at OR [facility] Right: Hip LUDY : ORTHOPAEDICS 08/11/2021 6195-1-010 / / [id number] Spacer Ring Aclde Distal Lg 14 - [id number] Implanted:Qty: 1 on 09/02/2020 by Gianni Hubbard MD at OR [facility] Right: Hip LUDY : ORTHOPAEDICS 11/25/2024 1769-8574 / / Accolade C Cs 127 6 37/158 - [id number] Implanted:Qty: 1 on 09/02/2020 by Gianni Hubbard MD at OR [facility] Right: Hip LUDY : ORTHOPAEDICS 05/29/2023 6057-0637D / / [id number] Hip Cocr Lfit Head V40 28/+4 - [id number] Implanted:Qty: 1 on 09/02/2020 by Gianni Hubbard MD at OR [facility] Right: Hip LUDY : ORTHOPAEDICS 11/15/2024 6260-9-228 / / [id number] Hip Head Bipol Uhr Uni 28x52 - [id number] Implanted:Qty: 1 on 09/02/2020 by Gianni Hubbard MD at OR [facility] Right: Hip LUDY : ORTHOPAEDICS 11/25/2024 UH1-52-28 / / [id number] Lens Intraoc 17.5 - [id number] - [id number] Implanted:Qty: 1 on 03/23/2022 by Rad Morgan MD at OR [facility] Left: Eye BAUSCH & LOMB 10/11/2026 [id number] / [id number] / [id number] Lens Intraoc 18.0 - [id number] - [id number] Implanted:Qty: 1 on 03/30/2022 by Rad Morgan MD at OR [facility] Right: Eye BAUSCH & LOMB 01/11/2027 [id number] / [id number] / [id number] documented as of this encounter Procedures Procedure Name Priority Date/Time Associated Diagnosis Comments ECHOCARDIOLOGY SCANNED RESULT 09/06/2023 documented in this encounter Results * ECHOCARDIOLOGY SCANNED RESULT (09/06/2023) 09/06/2023 No Physician Data Unknown ECHOCARDIOLOGY documented in this encounter Advance Directives Latest [...] the patient have Health Care Power of Blower Room Attendant? No No Code 03/30/2022 6:32 AM 03/30/2022 12:51 PM Th is order reflects the patients wishes and were consensually agreed upon. Question Answer Comments Discussion of Advance Directives occurred with: Patient Does the patient have a Living Will? No Does the patient have Health Care Power of Blower Room Attendant? No No Code 03/23/2022 9:56 AM 03/23/2022 4:51 PM Thi s order reflects the patients wishes and were consensually agreed upon. Question Answer Comments Discussion of Advance Directives occurred with: Patient Does the patient have a Living Will? No Does the patient have Health Care Power of Blower Room Attendant? No Full Code 11/26/2021 11:29 PM 11/30/2021 5:09 PM This order reflects the patients wishes and were consensually agreed upon. Question Answer Comments Discussion of Advance Directives occurred with: Patient/Family Care Teams Checker And Packer Relationship Specialty Start Date End Date Kaiser Amanda MD [address] [address] PCP - General Family Medicine 04/11/21 documented as of this encounter
--- OUTSIDE RECORDS SUMMARY | 2024-01-29 20:46 | External Medical Summary | Summary of Care ---
Author Name Unknown Organization [facility] Address [address] [place] [address] Phone [phone] Care Team Providers Care Bread Icer Name Role Phone Kaiser Amanda MD Primary Care Provider [phone] [phone] Reason for Visit * Reason Comments Hospital Follow-Up * Auth/Cert Specialty Diagnoses / Procedures Referred By Fauzia t Referred To Contact [facility] [address] [place] [address] Phone: [phone] Emergency Medicine [facility] [address] [place] [address] Referral ID Status Reason Start Date Expiration Date Visits Re quested Visits Authorized [id number] Encounter Details Date Type Department Care Team (Late st Contact Info) Description 09/12/2023 5:50 PM EDT Anticoagulation Pharmacy, [address] [place] [address] Pharmacist2, [facility] [address] [place] [address] History of pulmonary embolism*; History of DVT (deep vein thrombosis) Allergies Active Allergy Reactions Criticality Noted Date Comments Cat Dander Itching 07/14/2016 documented as of this encounter (statuses as of 09/12/2023) Medications Medication Sig Dispensed Refills Start Date End Date Status 16 Mile SolutionsTouch Ultra 2 w/Device KitIndications:Type 2 diabetes mellitus with hemoglobin A1c goal of less than 7.5% ([facility]) Testing blood sugars twice daily Dx: E11.9 1 Kit 11 06/06/2021 Active VangieDarius Nova Lancets 30GIndications:Type 2 diabetes mellitus with [...] with anxiety,Type 2 diabetes mellitus with polyneuropathy ([facility]) Take 1 Tablet [...] MG Sublingual Tablet Sublingual (Nitrostat)Indicatio ns:Stable angina ([facility]) Place 1 Tablet under the tongue [...] as of this encounter (statuses as of 09/12/2023) Active Problems Problem Noted Date Diagnosed Date [...] as of this encounter (statuses as of 09/12/2023) Resolved Problems Problem Noted Date Diagnosed Date [...] as of this encounter (statuses as of 09/12/2023) Immunizations Name Administration Dates Next Due COVID-19 mRNA, LNP-s, No Pre serve, 2-Dose Series (PatientKeeper) 04/23/2021,08/09/2020,07/12/2020 Covid-19, Mrna, Lnp-s, Pf, B ivalent, [...] this encounter Progress Notes * Jessi Collier, [facility] - 09/12/2023 8:47 AM EDT Patient admitted to [facility] 09/08-09/10 due to fall (ad[facility] [place] [facility] due to fall with subdural hematoma). Imaging did not show any changes regarding SAH. Coumadin, aspirin, NSAIDs, and antiplatelet on hold until follow up CT. Discharged on Keppra for 7-14 days for seizure prophylaxis. Patient has been discharged to [facility]. Will check for discharge in 1 week. Jessi Collier PharmD, [facility] Clinical Pharmacist 09/12/2023, 8:47 AM documented in this encounter Plan of Treatment Upcoming Encounters Date Type Department Care Team (Late st Contact Info) Description 09/19/2023 5:50 PM EDT Anticoagulation Pharmacy, [place] [address] [address] [address] Pharmacist2, [facility] [place] [address] [address] [place] [address] 09/21/2023 9:00 AM EDT Nurse Only [facility] [address] [address] [place], Nurse Ashwini Boogie RN [address] [facility] [address] [address] 10/22/2023 9:15 AM EDT Office Visit UrologRolo Crespo [address] [address] Bert Boogie Jr., MD 27 [facility] [address] [address] 01/21/2024 2:00 PM EDT Office Visit [facility], [place] [address] [facility], [place] [phone] Sakina Jones MD [address] [place], [place] [phone] 01/25/2024 3:30 PM EDT Office Visit [facility] [address] [place] [address] Laney Hogue MD [address] [place] [address] 02/25/2024 9:20 AM EDT Office Visit [facility] [address] [address] Kaiser Amanda MD [address] [address] Scheduled Procedures Name Priority Associated Diagnoses Date/Ti [...] CUFF VALIDATION YEARLY 12/27/2023 12/26/2022 Albumin/Creatinine Ratio 01/11/202401/10/ 023, 07/07/2021, 12/16/2018, Additional history exists HbA1c [...] D LEVEL ONCE IN A LIFETIME-USE SMARTSET# [id number] Completed 07/26/2023, 02/26/2023, 01/23/2023, Additional history exists [...] encounter Medical Devices Implanted Type Area Medical Physics Professor Device Identifier Shelf Expiration Date Model / Serial / Lot Cement Bone Simplex Hv & G - [id number] Implanted:Qty: 2 on 09/02/2020 by Gianni Hubbard MD at OR [facility] Right: Hip LUDY : ORTHOPAEDICS 08/11/2021 6195-1-010 / / [id number] Spacer Ring Aclde Distal Lg 14 - [id number] Implanted:Qty: 1 on 09/02/2020 by Gianni Hubbard MD at OR [facility] Right: Hip LUDY : ORTHOPAEDICS 11/25/2024 [id number] / / Accolade C Cs 127 6 37/158 - [id number] Implanted:Qty: 1 on 09/02/2020 by Gianni Hubbard MD at OR [facility] Right: Hip LUDY : ORTHOPAEDICS 05/29/2023 [id number] / / [id number] Hip Cocr Lfit Head V40 28/+4 - [id number] Implanted:Qty: 1 on 09/02/2020 by Gianni Hubbard MD at OR [facility] Right: Hip LUDY : ORTHOPAEDICS 11/15/2024 6260-9-228 / / [id number] Hip Head Bipol Uhr Uni 28x52 - [id number] Implanted:Qty: 1 on 09/02/2020 by Gianni Hubbard MD at OR [facility] Right: Hip LUDY : ORTHOPAEDICS 11/25/2024 UH1-52-28 / / [id number] Lens Intraoc 17.5 - [id number] - [id number] Implanted:Qty: 1 on 03/23/2022 by Rad Morgan MD at OR [facility] Left: Eye BAUSCH & LOMB 10/11/2026 [id number] / [id number] / [id number] Lens Intraoc 18.0 - [id number] - [id number] Implanted:Qty: 1 on 03/30/2022 by Rad Morgan MD at OR [facility] Right: Eye BAUSCH & LOMB 01/11/2027 [id number] / [id number] / [id number] documented as of this encounter Visit Diagnoses [...] the patient have Health Care Power of Automatic Cigar Wrapper Tender? No No Code 03/30/2022 6:32 AM 03/30/2022 12:51 PM Th is order reflects the patients wishes and were consensually agreed upon. Question Answer Comments Discussion of Advance Directives occurred with: Patient Does the patient have a Living Will? No Does the patient have Health Care Power of Automatic Cigar Wrapper Tender? No No Code 03/23/2022 9:56 AM 03/23/2022 4:51 PM Thi s order reflects the patients wishes and were consensually agreed upon. Question Answer Comments Discussion of Advance Directives occurred with: Patient Does the patient have a Living Will? No Does the patient have Health Care Power of Automatic Cigar Wrapper Tender? No Full Code 11/26/2021 11:29 PM 11/30/2021 5:09 PM This order reflects the patients wishes and were consensually agreed upon. Question Answer Comments Discussion of Advance Directives occurred with: Patient/Family Care Teams Bread Icer Relationship Specialty Start Date End Date Kaiser Amanda MD [address] [address] PCP - General Family Medicine 04/11/21 documented as of this encounter
--- OUTSIDE RECORDS SUMMARY | 2024-01-29 20:46 | External Medical Summary | Summary of Care ---
Author Name Unknown Organization [facility] Address [address] [place] [place] [facility] [place] [address] Phone [phone] Care Team Providers Care Filament Maker Name Role Phone Kaiser Amanda MD Primary Care Provider [phone] [phone] Reason for Visit * Reason Onset Date Comments Home Health 09/24/2023 Encounter Details Date Type Department Care Team (Late st Contact Info) Description 09/24/2023 Telephone [facility] [address] [place] [address] Kaiser Amanda MD [facility] [place] [address] Home Health Allergies Active Allergy Reactions Criticality Noted Date Comments Cat Dander Itching 07/14/2016 documented as of this encounter (statuses as of 09/24/2023) Medications Medication Sig Dispensed Refills Start Date [...] with anxiety,Type 2 diabetes mellitus with polyneuropathy ([facility]) TAKE 1 TABLET BY MOUTH IN THE MORNING AND 1 TABLET BEFORE BEDTIME 180 Tablet 1 09/18/2023 Active documented as of this encounter (statuses as of 09/24/2023) Active Problems Problem Noted Date Diagnosed Date [...] as of this encounter (statuses as of 09/24/2023) Resolved Problems Problem Noted Date Diagnosed Date [...] as of this encounter (statuses as of 09/24/2023) Immunizations Name Administration Dates Next Due COVID-19 [...] Telephone Encounter - Shirley Driver LPN - 09/24/2023 2:02 PM EDT Admission/Start of Care Admission/Start of Care: EDUARDO Aclantar, Calling from: Mario Patient was Admitted to: [facility], for: Rehab s/p fall from 09/11/23 to 09/24/23 Referral ordered by: [employer] Referral received for: Care Home, PT, and OT Planned start of care date:Yes, Date 09/25/23 Last Office Visit: 07/26/2023 Has patient been scheduled or seen in the office for a follow up visit: Yes- on09/27/23 Advised that orders will be signed by Kaiser Amanda MD and to fax to the office for signature. documented in this encounter Plan of Treatment Upcoming Encounters Date Type Department Care Team (Late st Contact Info) Description 09/26/2023 5:50 PM EDT Anticoagulation Pharmacy, [address] [place] [address] Pharmacist2, [facility] [place] [facility] [address] [place] [address] 09/27/2023 2:40 PM EDT Office Visit [place] [address] [facility] [place] [phone] Kaiser Amanda MD 21 [place] [address] 09/28/2023 11:00 AM EDT Office Visit [facility] [place] [phone] Lucila Younger MD 21 [facility] [address] 10/22/2023 9:15 AM EDT Office Visit Urology [place] [address] [facility] [address] [address] Bert Boogie Jr., MD [facility] [address] [address] 01/21/2024 2:00 PM EDT Office Visit Endocrinology, [place] [address] [place], [place] [phone] Sakina Jones MD [address] [place], [place] [address] 01/25/2024 3:30 PM EDT Office Visit [facility] [address] [place] [address] Laney Hogue MD [address] [place] [address] 02/25/2024 9:20 AM EDT Office Visit [facility] [address] [phone] Kaiser Amanda MD [address] [address] Scheduled Procedures Name Priority Associated Diagnoses Date/Ti [...] D LEVEL ONCE IN A LIFETIME-USE SMARTSET# [id number] Completed 07/26/2023, 02/26/2023, 01/23/2023, Additional history exists [...] this encounter Medical Devices Implanted Type Area Boiling Off Winder Device Identifier Shelf Expiration Date Model / Serial / Lot Cement Bone Simplex Hv & G - [id number] Implanted:Qty: 2 on 09/02/2020 by Gianni Hubbard MD at OR [facility] Right: Hip LUDY : ORTHOPAEDICS 08/11/2021 6195-1-010 / / [id number] Spacer Ring Aclde Distal Lg 14 - [id number] Implanted:Qty: 1 on 09/02/2020 by Gianni Hubbard MD at OR [facility] Right: Hip LUDY : ORTHOPAEDICS 11/25/2024 0363-7308 / / Accolade C Cs 127 6 37/158 - [id number] Implanted:Qty: 1 on 09/02/2020 by Gianni Hubbard MD at OR [facility] Right: Hip LUDY : ORTHOPAEDICS 05/29/2023 6057-0637D / / [id number] Hip Cocr Lfit Head V40 28/+4 - [id number] Implanted:Qty: 1 on 09/02/2020 by Gianni Hubbard MD at OR [facility] Right: Hip LUDY : ORTHOPAEDICS 11/15/2024 6260-9-228 / / [id number] Hip Head Bipol Uhr Uni 28x52 - [id number] Implanted:Qty: 1 on 09/02/2020 by Gianni Hubbard MD at OR [facility] Right: Hip LUDY : ORTHOPAEDICS 11/25/2024 UH1-52-28 / / [id number] Lens Intraoc 17.5 - [id number] - [id number] Implanted:Qty: 1 on 03/23/2022 by Rad Morgan MD at OR [facility] Left: Eye BAUSCH & LOMB 10/11/2026 [id number] / [id number] / [id number] Lens Intraoc 18.0 - [id number] - [id number] Implanted:Qty: 1 on 03/30/2022 by Rad Morgan MD at OR [facility] Right: Eye BAUSCH & LOMB 01/11/2027 [id number] / [id number] / [id number] documented as of this encounter Advance Directives [...] the patient have Health Care Power of Topographical Drafter? No No Code 03/30/2022 6:32 AM 03/30/2022 12:51 PM Th is order reflects the patients wishes and were consensually agreed upon. Question Answer Comments Discussion of Advance Directives occurred with: Patient Does the patient have a Living Will? No Does the patient have Health Care Power of Topographical Drafter? No No Code 03/23/2022 9:56 AM 03/23/2022 4:51 PM Thi s order reflects the patients wishes and were consensually agreed upon. Question Answer Comments Discussion of Advance Directives occurred with: Patient Does the patient have a Living Will? No Does the patient have Health Care Power of Topographical Drafter? No Full Code 11/26/2021 11:29 PM 11/30/2021 5:09 PM This order reflects the patients wishes and were consensually agreed upon. Question Answer Comments Discussion of Advance Directives occurred with: Patient/Family Care Teams Filament Maker Relationship Specialty Start Date End Date Kaiser Amanda MD [address] [address] PCP - General Family Medicine 04/11/21 documented as of this encounter
--- OUTSIDE RECORDS SUMMARY | 2024-01-29 20:47 | External Medical Summary | Summary of Care ---
Author Name Unknown Organization [facility] Address [address] [facility] [address] Phone [phone] Care Team Providers Care Hydraulic Tester Name Role Phone Kaiser Amanda MD Primary Care Provider [phone] [phone] Reason for Visit * Reason Comments Status Check Encounter Details Date Type Department Care Team (Late st Contact Info) Description 09/10/2023 1:30 PM EDT Anticoagulation Pharmacy, [address] [place] [address] Pharmacist1, [address] [place] [address] History of pulmonary embolism*; History of DVT (deep vein thrombosis) Allergies Active Allergy Reactions Criticality Noted Date Comments Cat Dander Itching 07/14/2016 documented as of this encounter (statuses as of 09/10/2023) Medications Medication Sig Dispensed Refills Start Date End Date Status OneTouch Ultra 2 w/Device KitIndications:Typ e 2 diabetes mellitus with hemoglobin A1c goal of less than 7.5% (HCC) Testing blood sugars twice daily Dx: E11.9 1 Kit 11 2 Suspended Additional Information OneTouch Delica Lancets 30GIndications:Typ e 2 diabetes mellitus with hemoglobin A1c goal of less than 7.5% (HCC),Type 2 diabetes mellitus with polyneuropathy (HCC) Check BS once daily E11.9 100 Each 0 2 Suspended Additional Information Acetaminophen 325 MG Oral Tablet (Tylenol) Take 3 Tablets (975 mg) by mouth every 6 hours. 30 Tablet 0 2 Suspended Additional Information Patient taking differently:975 mg Oral Q6H,As needed, Reported on 12/26/2022 Docusate Sodium 100 MG Oral Capsule (Colace) Take 1 Capsule (100 mg) by mouth in the morning and 1 Capsule (100 mg) before bedtime. 10 Capsule 0 2 Suspended Additional Information Polyethylene Glycol 3350 17 GM Oral Packet (Miralax) Take 1 Packet (17 g) by mouth in the morning. Do not start before April 19, 2022. 14 Each 0 2 Suspended Additional Information Patient taking differently:17 g Oral Daily(AM),As needed, Reported on 12/26/2022 Vitamin D 25 MCG (1000 UT) Oral Tablet Take 1 Tablet (1,000 Units) by mouth daily at noon. 30 Tablet 3 2 Suspended Additional Information Warfarin Sodium 5 MG Oral Tablet (Coumadin) Take 1-2 Tablets (5-10 mg) by mouth in the morning. Or as directed by anticoagulation clinic. 180 Tablet 3 2 Suspended Additional Information Mupirocin 2 % External Ointment (Bactroban) Apply topically to affected area 3 times a day. Apply to biopsy site on left shoulder twice daily as needed 22 g 1 3 Suspended Additional Information Mupirocin 2 % External Ointment (Bactroban) Apply to biopsy site on left shoulder twice daily 22 g 1 3 Suspended Additional Information Triamcinolone Acetonide 0.1 % External Cream (Aristocort) Apply to rash on abdomen twice daily as needed 80 g 5 3 Suspended Additional Information Cinacalcet HCl 30 MG Oral Tablet (Sensipar)Indicati ons:Hypercalcemia Take 1 tablet by mouth once daily 90 Tablet 3 3 Suspended Additional Information Iron 325 (65 Fe) MG Oral Tablet Take 1 Tablet by mouth every evening. 0 3 Suspended glipiZIDE ER 10 MG Oral Tablet Extended Release 24 Hour (Glucotrol XL)Indications:Typ e 2 diabetes mellitus with hemoglobin A1c goal of less than 7.5% (HCC) TAKE 1 TABLET BY MOUTH DAILY. TAKE 30 MINUTES BEFORE A MEAL 90 Tablet 3 3 Suspended Additional Information DULoxetine HCl 60 MG Oral Capsule Delayed Release Particles (Cymbalta)Indicati ons:Depression with anxiety Take 1 Capsule by mouth in the morning. 90 Capsule 3 3 Suspended Additional Information Amitriptyline HCl 25 MG Oral Tablet (Elavil)Indication s:Depression with anxiety,Type 2 diabetes mellitus with polyneuropathy (HCC) Take 1 Tablet by mouth in the morning and 1 Tablet before bedtime. 60 Tablet 6 3 Suspended Additional Information Hydrocortisone 2.5 % External Cream Apply to eyebrows twice daily for 3-5 days at a time as needed for flares 60 g 2 3 Suspended Additional Information Ketoconazole 2 % External Cream Apply to eyebrows twice daily 30 g 1 3 Suspended Additional Information Finasteride 5 MG Oral Tablet (Proscar) Take 1 Tablet by mouth in the morning. 90 Tablet 3 3 Suspended Additional Information Ketoconazole 2 % External Shampoo (Nizoral) APPLY TO SCALP AND EYEBROWS DAILY- LATHER, WAIT 5 MINUTES, THEN RINSE 120 mL 0 4 Suspended Additional Information OneTouch Verio In Vitro [...] 180 Tablet 1 4 Suspended Additional Information Nitroglycerin 0.4 MG Sublingual Tablet Sublingual (Nitrostat)Indicat ions:Stable angina (HCC) Place 1 Tablet under the tongue every 5 minutes as needed for Pain, Chest. 25 Tablet 0 4 Suspended Additional Information Omeprazole 20 MG [...] 90 Tablet 3 4 Suspended Additional Information documented as of this encounter (statuses as of 09/10/2023) Active Problems Problem Noted Date Diagnosed Date [...] as of this encounter (statuses as of 09/10/2023) Resolved Problems Problem Noted Date Diagnosed Date [...] as of this encounter (statuses as of 09/10/2023) Immunizations Name Administration Dates Next Due COVID-19 [...] Progress Notes * Jessi Collier, [facility] - 09/10/2023 1:12 PM EDT Patient presented to [facility] ER on 09/03 for a fall with laceration, transferred to [facility] for subdural hematoma. Discharged home on 09/05, noted that Coumadin was on hold. Patient presented to [facility] ER on 09/08 due to another fall. Coumadin remains on hold. Will check for discharge/update in 2 days. Jessi Collier, PharmD, [facility] Clinical Pharmacist 09/10/2023, 1:18 PM documented in this encounter Plan of Treatment Upcoming Encounters Date Type Department Care Team (Late st Contact Info) Description 09/12/2023 5:50 PM EDT Anticoagulation Pharmacy, [place] [address] [address] Pharmacist2, [facility] [place] [address] [address] 09/13/2023 3:00 PM EDT [facility] [place] [address] [phone] Kaiser Amanda MD [address] [address] 09/21/2023 9:00 AM EDT Nurse Only Rolo Sun [address] [place] [address] [place], Nurse Ashwini Boogie RN [facility] [address] [place] [address] 10/22/2023 9:15 AM EDT Office Visit Rolo Sun [address] [facility] [address] [address] Bert Boogie Jr., MD 27 [facility] [address] [address] 01/21/2024 2:00 PM EDT Office Visit Endocrinology, [place] [address] [place] [facility] [place] [address] Sakina Jones MD [address] [facility] [place] [address] 01/25/2024 3:30 PM EDT Office Visit [facility] [address] [place] [address] Laney Hogue MD 200 [place] [address] 02/25/2024 9:20 AM EDT Office Visit [facility] [address] [phone] Kaiser Amanda MD [address] [address] Scheduled Procedures Name Priority Associated Diagnoses Date/Ti [...] 0 06/09/2022, 04/11/2021, Additional history exists GFR 09/09/2024 09/10/2023, 2 12/2023, 09/04/2023, Additional history exists DXA Scan 01/25/2025 01/25/2023, [...] D LEVEL ONCE IN A LIFETIME-USE SMARTSET# [id number] Completed 07/26/2023, 02/26/2023, 01/23/2023, Additional history exists [...] this encounter Medical Devices Implanted Type Area Real Estate Firm Manager Device Identifier Shelf Expiration Date Model / Serial / Lot Cement Bone Simplex Hv & G - [id number] Implanted:Qty: 2 on 09/02/2020 by Gianni Hubbard MD at OR [facility] Right: Hip LUDY : ORTHOPAEDICS 08/11/2021 6195-1-010 / / [id number] Spacer Ring Aclde Distal Lg 14 - [id number] Implanted:Qty: 1 on 09/02/2020 by Gianni Hubbard MD at OR [facility] Right: Hip LUDY : ORTHOPAEDICS 11/25/2024 2765-1338 / / Accolade C Cs 127 6 37/158 - [id number] Implanted:Qty: 1 on 09/02/2020 by Gianni Hubbard MD at OR [facility] Right: Hip LUDY : ORTHOPAEDICS 05/29/2023 6057-0637D / / [id number] Hip Cocr Lfit Head V40 28/+4 - [id number] Implanted:Qty: 1 on 09/02/2020 by Gianni Hubbard MD at OR [facility] Right: Hip LUDY : ORTHOPAEDICS 11/15/2024 6260-9-228 / / [id number] Hip Head Bipol Uhr Uni 28x52 - [id number] Implanted:Qty: 1 on 09/02/2020 by Gianni Hubbard MD at OR [facility] Right: Hip LUDY : ORTHOPAEDICS 11/25/2024 UH1-52-28 / / [id number] Lens Intraoc 17.5 - [id number] - [id number] Implanted:Qty: 1 on 03/23/2022 by Rad Morgan MD at OR [facility] Left: Eye BAUSCH & LOMB 10/11/2026 [id number] / [id number] / [id number] Lens Intraoc 18.0 - [id number] - [id number] Implanted:Qty: 1 on 03/30/2022 by Rad Morgan MD at OR [facility] Right: Eye BAUSCH & LOMB 01/11/2027 [id number] / [id number] / [id number] documented as of this encounter Visit Diagnoses Diagnosis History of pulmonary embolism- Primary Personal history of pulmonary embolism History of DVT (deep vein thrombosis) Personal history of venous thrombosis and embolism documented in this encounter Advance Directives Latest Code Status on File Code Status Date Activated Date Inactivated Comments Full Code 09/09/2023 8:14 AM This order reflects the patients wishes and [...] the patient have Health Care Power of Wash Driller Helper? No No Code 03/30/2022 6:32 AM 03/30/2022 12:51 PM Th is order reflects the patients wishes and were consensually agreed upon. Question Answer Comments Discussion of Advance Directives occurred with: Patient Does the patient have a Living Will? No Does the patient have Health Care Power of Wash Driller Helper? No No Code 03/23/2022 9:56 AM 03/23/2022 4:51 PM Thi s order reflects the patients wishes and were consensually agreed upon. Question Answer Comments Discussion of Advance Directives occurred with: Patient Does the patient have a Living Will? No Does the patient have Health Care Power of Wash Driller Helper? No Full Code 11/26/2021 11:29 PM 11/30/2021 5:09 PM This order reflects the patients wishes and were consensually agreed upon. Question Answer Comments Discussion of Advance Directives occurred with: Patient/Family Care Teams Hydraulic Tester Relationship Specialty Start Date End Date Kaiser Amanda MD [address] [address] PCP - General Family Medicine 04/11/21 documented as of this encounter
--- OUTSIDE RECORDS SUMMARY | 2024-01-29 20:47 | External Medical Summary ---
Author Name Unknown Address Unknown Organization [id number]:LAB[facility] - [address] [place] [address] Laboratory Report Ordering Provider Test Date Status EVERETT MANTILLA 09/11/2023 06:42:00 Final Observation Date Value Abnormality Reference (Units ) Status WBC, Total 09/11/2023 06:42:00 6.40 4.00-10.80 (K/uL) Final RBC 09/11/2023 06:42:00 3.51 4.50-5.25 (M/uL) Final Hemoglobin 09/11/2023 06:42:00 10.7 Below low normal 14.0-16.8 (g/dL) Final HCT 09/11/2023 06:42:00 33.5 Below low normal 40.0-48.4 (%) Final MCV 09/11/2023 06:42:00 95.4 82.0-99.5 (fL) Final MCH 09/11/2023 06:42:00 30.5 27.0-34.0 (pg) Final MCHC 09/11/2023 06:42:00 31.9 32.0-36.0 (g/dL) Final RDW 09/11/2023 06:42:00 14.3 11.5-15.5 (%) Final Platelets 09/11/2023 06:42:00 174 140-400 (K/uL) Final MPV 09/11/2023 06:42:00 9.3 6.6-11.1 (fL) Final Nucleated erythrocytes/100 leukocytes [Ratio] in Blood by Automated count 09/11/2023 06:42:00 0 <=0 (/100 WBCs) Final Performing Location [facility] - [address] [place] [address]
--- OUTSIDE RECORDS SUMMARY | 2024-01-29 20:47 | External Medical Summary ---
Author Name Unknown Address Unknown Organization [id number]:[facility] [place] [address] Laboratory Report Ordering Provider Test Date Status FERNANDO ROMO 09/12/2023 06:53:55 Final Observation Date Value Abnormality Reference (Units ) Status BUN 09/12/2023 06:53:55 23 Above high normal 6-20 (mg/dL) Final Creatinine 09/12/2023 06:53:55 1.0 0.6-1.2 (mg/dL) Final Glomerular filtration rate/1.73 sq M.predicted [Volume Rate/Area] in Serum, Plasma or Blood by Creatinine-based formula (CKD-EPI) 09/12/2023 06:53:55 81 >=60 (mL/min) Final eGFR is calculated based on the CKD-EPI 2020 equation Sodium 09/12/2023 06:53:55 141 135-146 (m mol/L) Final Potassium 09/12/2023 06:53:55 4.5 3.5-5.1 (m mol/L) Final Result may be falsely elevat ed due to hemolysis. Cl 09/12/2023 06:53:55 103 98-107 (mm ol/L) Final CO2 09/12/2023 06:53:55 23 22-32 (mmo l/L) Final Anion gap 09/12/2023 06:53:55 15 7-15 (mmol /L) Final Glucose 09/12/2023 06:53:55 145 Above high normal 70 -120 (mg/dL) Final Calcium 09/12/2023 06:53:55 9.6 8.4-10.2 ( mg/dL) Final Performing Location [facility] [place] [address]
--- OUTSIDE RECORDS SUMMARY | 2024-01-29 20:47 | External Medical Summary ---
Author Name Unknown Address Unknown Organization [id number]:[facility] - [place] [address] Laboratory Report Ordering Provider Test Date Status KENDAL BURT 09/09/2023 05:21:33 Final Warfarin Therapy
INR: 2 .0-3.0 conventional anticoagulation
INR: 2.5- 3.5 high intensity anticoagulation Observation Date Value Abnormality Reference (Units ) Status PT 09/09/2023 05:21:33 14.0 11.6-15.2 (seconds) Final INR 09/09/2023 05:21:33 1.1 0.8-1.2 Final Performing Location [facility] - [address] [place] [address]
--- OUTSIDE RECORDS SUMMARY | 2024-01-29 20:47 | External Medical Summary ---
Author Name Unknown Address Unknown Organization K1F:[facility] - [address] [place] [address] Laboratory Report Ordering Provider Test Date Status KENDAL BURT 09/09/2023 05:21:33 Final Observation Date Value Abnormality Reference (Units ) Status ABO 09/09/2023 05:21:33 O Final RH 09/09/2023 05:21:33 Positive Final RED BLOOD CELL ANTIBODY SCREEN 09/09/2023 05:21:33 Negative Final SPECIMEN EXPIRATION DATE 09/09/2023 05:21:33 09/12/2023 23:59 Final Performing Location [facility] - [address] [place] [address]
--- OUTSIDE RECORDS SUMMARY | 2024-01-29 20:47 | External Medical Summary ---
Author Name Unknown Address Unknown Organization [id number]:LAB[facility] - [address] [place] [address] Laboratory Report Ordering Provider Test Date Status EZEQUIELVERONICA 09/10/2023 05:47:00 Final Observation Date Value Abnormality Reference (Units ) Status Phosphate 09/10/2023 05:47:00 3.4 2.5-4.8 (m g/dL) Final Performing Location [facility]ATORY [facility] - [address] [place] [address]
--- OUTSIDE RECORDS SUMMARY | 2024-01-29 20:47 | External Medical Summary ---
Author Name Unknown Address Unknown Organization K1F:LAB[facility]ORY [facility] - [address] [place] [address] Laboratory Report Ordering Provider Test Date Status KENDAL BURT 09/09/2023 05:21:33 Final Observation Date Value Abnormality Reference (Units ) Status Lactic Acid, Whole Blood 09/09/2023 05:21:33 1.7 0.4-2.0 (mmol/L) Final Performing Location [facility] - [address] [place] [address]
--- OUTSIDE RECORDS SUMMARY | 2024-01-29 20:47 | External Medical Summary | Continuity of Care Document ---
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 Role Phone Melanie Kong Primary Care Physician [phone] Encounter [facility] [id number] Date(s): 09/05/23 - 09/07/[address] [phone] Encounter Diagnosis Trauma(Discharge Diagnosis) - 09/05/23 Subdural hematoma, acute(Discharge Diagnosis) - 09/05/23 SAH (subarachnoid hemorrhage)(Discharge Diagnosis) - 09/05/23 Encounter for geriatric assessment(Discharge Diagnosis) - 09/05/23 Fall at home(Discharge Diagnosis) - 09/05/23 Polypharmacy(Discharge Diagnosis) - 09/05/23 Anticoagulated(Discharge Diagnosis) - 09/05/23 Diabetes(Discharge Diagnosis) - 09/05/23 Gait disorder(Discharge Diagnosis) - 09/05/23 Uses walker(Discharge Diagnosis) - 09/05/23 Hard of hearing(Discharge Diagnosis) - 09/05/23 At risk for delirium(Discharge Diagnosis) - 09/05/23 Discharge Disposition: Home or Self Care Attending Physician: MD Perez John S Admitting Physician: DO Abel Ashley Rae Allergies, Adverse Reactions, Alerts No Known Medication Allergies Substance Reaction Severity Status Cats sinus symptoms, swelling, problems breath ing Active Functional Status 09/07/23 Neurological Symptoms Weakness ADLs Moderate assistance Facial Symmetry Symmetric Gait Unsteady Swallowing Difficulty None Level of Consciousness Neuro Alert Hallucinations Present None 09/07/23 History of Fall in Last 3 Months Soto Y es Presence of Secondary Diagnosis Soto Ye s Use of Ambulatory Aid Soto Crutches/can e/walker IV/Heparin Lock Fall Risk Soto Yes Gait/Transferring Fall Risk Soto Impair ed Mental Status Fall Risk Soto Forgets li mitations Soto Fall Risk Score 110 Soto Fall Risk High risk Speech Pattern Clear Medications amitriptyline Start: 01/23/19 14:44:00 EDT, See Instructions, 25mg - takes 0.5 tab in the am & 1 tab at hs Start Date: 01/23/19 Status: Ordered atorvastatin 40 mg oral tablet Start: 02/26/18 10:30:00 EDT, 1 tab, PO, Daily Start Date: 02/26/18 Status: Ordered Cymbalta 60 mg oral delayed release capsule Start: 05/10/15 14:07:00, 1 cap, PO, Daily Start Date: 05/10/15 Status: Ordered ferrous sulfate Start: 09/06/23 12:33:00 EDT, See Instructions, takes daily/ unsure of dose Start Date: 09/06/23 Status: Ordered finasteride 5 mg oral tablet Start: 09/06/23 12:32:00 EDT, 1 tab, PO, Daily Start Date: 09/06/23 Status: Ordered HumaLOG Sliding Scale Low Dose Range: SSI, injection, subQ, 09/06/23 11:30:00 EDT, 09/06/23 11:30:00 EDT, Estimated correction need for patients using total insulin daily dose between 31 and 60 units., 09/05/23 6:14:00 EDT Start Date: 09/06/23 Stop Date: 09/06/23 Status: Completed HumaLOG Sliding Scale Low Dose Range: SSI, injection, subQ, 09/06/23 16:30:00 EDT, 09/06/23 16:30:00 EDT, Estimated correction need for patients using total insulin daily dose between 31 and 60 units., 09/05/23 6:14:00 EDT Start Date: 09/06/23 Stop Date: 09/06/23 Status: Completed HumaLOG Sliding Scale Low Dose Range: SSI, injection, subQ, 09/06/23 22:00:00 EDT, 09/06/23 22:00:00 EDT, Estimated correction need for patients using total insulin daily dose between 31 and 60 units., 09/05/23 6:14:00 EDT Start Date: 09/06/23 Stop Date: 09/07/23 Status: Completed hydrocortisone 2.5% topical cream APPLY TO EYEBROWS TWICE DAILY FOR 3-5 DAYS AT A TIME NEEDED FOR FLARES Start Date: 09/06/23 Status: Ordered Keppra 500 mg oral tablet Start: 09/07/23 12:04:00 EDT, 1 tab, PO, bid, Disp# 10 tab, Refills: 0, Pharmacy: [id number] Start Date: 09/07/23 Stop Date: 09/12/23 Status: Ordered ketoconazole 2% topical shampoo APPLY TO SCALP AND EYEBROWS DAILY- LATHER, WAIT 5 MINUTES, THEN RINSE Start Date: 09/06/23 Status: Ordered metFORMIN 1000 mg oral tablet TAKE 1 TABLET BY MOUTH TWICE DAILY WITH BREAKFAST AND WITH DINNER Start Date: 09/06/23 Status: Ordered MiraLax oral powder for reconstitution Start: 01/23/19 14:46:00 EDT, 17 g =, PO, Daily, PRN: constipation Start Date: 01/23/19 Status: Ordered Sensipar 30 mg oral tablet Start: 07/24/19 14:45:00 EDT, 1 tab, PO, Daily, Disp# 90 tab, Refills: 5, Pharmacy: [facility] #[id number] Start Date: 07/24/19 Stop Date: 01/14/21 Status: Ordered tamsulosin 0.4 mg oral capsule Start: 09/07/23 12:04:00 EDT, 1 cap, PO, Daily, Disp# 30 cap, Refills: 0, Pharmacy: [id number] Start Date: 09/07/23 Stop Date: 10/07/23 Status: Ordered triamcinolone 0.1% topical cream APPLY TO RASH ON ABDOMEN TWICE DAILY NEEDED Start Date: 09/06/23 Status: Ordered Tylenol Extra Strength 500 mg oral tablet Start: 01/23/19 14:48:00 EDT, 1 tab, PO, PRN: as needed for pain Start Date: 01/23/19 Status: Ordered Mental Status 09/05/23 Communication Barrier Present No Primary Language Pakistani Problem List Condition Confirmation Course Effective Dates Status Health Status Informant Actinic Keratosis Confirmed Active BCC (basal cell carcinoma of skin) Confirmed Active Type 2 diabetes mellitus Confirmed Active Hypertension Confirmed Active History of asthma Confirmed Active Hodgkins lymphoma Confirmed Active Hypercalcemia Confirmed Active Hyperparathyroidism Confirmed Active Elevated cholesterol Confirmed Active Diagnosis Diagnosis Type Effective Dates Health Status Clinical Service Informant Trauma Discharge Diagnosis 09/05/23 Non-Specified Subdural hematoma, acute Discharge Diagnosis 09/05/23 SAH (subarachnoid hemorrhage) Discharge Diagnosis 09/05/23 Encounter for geriatric assessment Discharge Diagnosis 09/05/23 Non-Specified Anticoagulated Discharge Diagnosis 09/05/23 Non-Specified Diabetes Discharge Diagnosis 09/05/23 Non-Specified Fall at home Discharge Diagnosis 09/05/23 Non-Specified Polypharmacy Discharge Diagnosis 09/05/23 Non-Specified Hard of hearing Discharge Diagnosis 09/05/23 Non-Specified At risk for delirium Discharge Diagnosis 09/05/23 Non-Specified Gait disorder Discharge Diagnosis 09/05/23 Non-Specified Uses walker Discharge Diagnosis 09/05/23 Non-Specified Procedures Procedure Date Related Diagnosis Body Site Status neck surgery 08/13/18 Completed neck surgery 07/13/18 Completed Shave biopsy 09/28/17 Completed Excision of basal cell carcinoma 05/18/15 Completed Arthroscopy of knee Compl eted Hernia repair Completed Lymph node Completed Shave biopsy and cauterization of skin Completed Results Laboratory List Name Date Urine Analysis w/ Reflexed Microscopic. (UA w/ Reflexed Microscopic.) 09/07/23 Glucose Meter (GLUCOSE METER) 09/07/23 Glucose Meter (GLUCOSE METER) 09/07/23 Complete Blood Count (CBC w Platelets) Magnesium Level (Mg Level) 09/07/23 Nephrology Panel 09/07/23 Glucose Meter (GLUCOSE METER) 09/06/23 Lactic Acid Level 09/06/23 Complete Blood Count (CBC w Platelets) Magnesium Level (Mg Level) 09/06/23 Nephrology Panel 09/06/23 Blood Glucose Monitoring Nurse POC (Gluc ose Meter Nurse POC) 09/05/23 MRSA Surveillance (Nasal Swab) 09/05/23 Lactic Acid Level 09/05/23 Added on Lab order 09/05/23 Troponin T ( 5th Gen) 09/05/23 Complete Blood Count (CBC w Platelets) Lactic Acid Level 09/05/23 Magnesium Level (MAGNESIUM) 09/05/23 Nephrology Panel 09/05/23 Prothrombin Time w/ INR (PT/INR) 09/05/23 Most recent to oldest [Reference Range]: 1 2 3 eGFR CKD-EPI [>60 mL/min/1.73 m2] >90 mL/min/1.73 m2 (4/26/24 9:51 AM) 87 mL/min/1.73 m2 (09/06/23 5:56 AM) 77 mL/min/1.73 m2 (09/05/23 2:33 AM) Blood Glucose [70-120 mg/dL] 181 mg/dL 1 *HI* (09/07/23 12:17 AM) 249 mg/dL 2 *HI* (09/06/23 4:24 PM) 261 mg/dL 3 *HI* (09/06/23 11:57 AM) Blood Glucose Ref Range [70 - 120 mg/dl] (09/05/23 9:18 PM) Troponin T ( 5th Gen) [<22 ng/L] 20 ng/L 4 (09/05/23 2:33 AM) Troponin T ( 5th Gen) Delta NOT CALCULATED (09/05/23 2:33 AM) Request of Physician Mg (09/05/23 3:57 AM) Action Taken YES (09/05/23 3:57 AM) Estimated CrCl 76.17 mL/min (09/07/23 11:12 AM) 68.80 mL/min (09/06/23 7:09 AM) 62.12 mL/min (09/05/23 3:36 AM) MPV [9.0-12.2 fL] 9.5 fL (09/07/23 9:51 AM) 9.2 fL (09/06/23 5:56 AM) 9.8 fL (09/05/23 2:33 AM) RDW [11.5-14.2 %] 14.2 % (09/07/23 9:51 AM) 14.3 % *HI* (09/06/23 5:56 AM) 14.2 % (09/05/23 2:33 AM) Squamous Epithelial Cells (u) NONE (09/07/23 12:09 PM) Mucous (u) FEW (09/07/23 12:09 PM) MRSA Surveillance, on Admission [MSND] MRSA NOT detected (09/05/23 5:30 AM) Anion Gap [5-14 mmol/L] 9 mmol/L (09/07/23 9:51 AM) 11 mmol/L (09/06/23 5:56 AM) 15 mmol/L *HI* (09/05/23 2:33 AM) Alb [3.5-5.2 g/dL] 3.8 g/dL (09/07/23 9:51 AM) 3.6 g/dL (09/06/23 5:56 AM) 3.7 g/dL (09/05/23 2:33 AM) Bact (u) [NONE-NONE] NONE (09/07/23 12:09 PM) Bili (u) [NEG] NEGATIVE (09/07/23 12:09 PM) BUN [6-23 mg/dL] 16 mg/dL (09/07/23 9:51 AM) 14 mg/dL (09/06/23 5:56 AM) 19 mg/dL (09/05/23 2:33 AM) Ca [8.4-10.2 mg/dL] 9.4 mg/dL (09/07/23 9:51 AM) 9.3 mg/dL (09/06/23 5:56 AM) 8.2 mg/dL *LOW* (09/05/23 2:33 AM) Cl- [98-107 mmol/L] 106 mmol/L (09/07/23 9:51 AM) 106 mmol/L (09/06/23 5:56 AM) 105 mmol/L (09/05/23 2:33 AM) HCO3 [22-29 mmol/L] 25 mmol/L (09/07/23 9:51 AM) 24 mmol/L (09/06/23 5:56 AM) 21 mmol/L *LOW* (09/05/23 2:33 AM) Cret [0.70-1.30 mg/dL] 0.84 mg/dL (09/07/23 9:51 AM) 0.93 mg/dL (09/06/23 5:56 AM) 1.03 mg/dL (09/05/23 2:33 AM) Glu [74-109 mg/dL] 202 mg/dL 5 *HI* (09/07/23 9:51 AM) 137 mg/dL 6 *HI* (09/06/23 5:56 AM) 200 mg/dL 7 *HI* (09/05/23 2:33 AM) Gluc Meter [74-109 mg/dL] 216 mg/dL *HI* (09/07/23 11:14 AM) 148 mg/dL *HI* (09/07/23 6:42 AM) 181 mg/dL *HI* (09/06/23 10:31 PM) Hct [39-48 %] 33.7 % *LOW* (09/07/23 9:51 AM) 33.9 % *LOW* (09/06/23 5:56 AM) 35.9 % *LOW* (09/05/23 2:33 AM) Hgb [13.0-17.0 g/dL] 11.2 g/dL *LOW* (09/07/23 9:51 AM) 11.2 g/dL *LOW* (09/06/23 5:56 AM) 12.1 g/dL *LOW* (09/05/23 2:33 AM) INR [0.9-1.1] 1.2 8 *HI* (09/05/23 2:33 AM) K [3.5-5.1 mmol/L] 4.2 mmol/L (09/07/23 9:51 AM) 4.1 mmol/L (09/06/23 5:56 AM) 4.5 mmol/L 9 (09/05/23 2:33 AM) Ketones [NEG mg/dL] NEGATIVE mg/dL (09/07/23 12:09 PM) Lactate [0.5-2.2 mmol/L] 1.5 mmol/L (09/06/23 1:15 PM) 3.3 mmol/L *HI* (09/05/23 5:29 AM) 2.4 mmol/L *HI* (09/05/23 2:34 AM) Leuk Est [NEG] NEGATIVE (09/07/23 12:09 PM) MCH [28-33 pg] 31.5 pg (09/07/23 9:51 AM) 31.1 pg (09/06/23 5:56 AM) 31.3 pg (09/05/23 2:33 AM) MCHC [32-36 g/dL] 33.2 g/dL (09/07/23 9:51 AM) 33.0 g/dL (09/06/23 5:56 AM) 33.7 g/dL (09/05/23 2:33 AM) MCV [81-96 fL] 94.9 fL (4/26/24 9:51 AM) 94.2 fL (09/06/23 5:56 AM) 93.0 fL (09/05/23 2:33 AM) Mg [1.6-2.6 mg/dL] 1.8 mg/dL (09/07/23 9:51 AM) 1.8 mg/dL (09/06/23 5:56 AM) 1.3 mg/dL *LOW* (09/05/23 2:33 AM) Na [136-145 mmol/L] 140 mmol/L (09/07/23 9:51 AM) 141 mmol/L (09/06/23 5:56 AM) 141 mmol/L (09/05/23 2:33 AM) Nitrite (u) [NEG] NEGATIVE (09/07/23 12:09 PM) PO4 [2.5-4.5 mg/dL] 3.1 mg/dL (09/07/23 9:51 AM) 3.1 mg/dL (09/06/23 5:56 AM) 2.1 mg/dL *LOW* (09/05/23 2:33 AM) Plts [150-350 K/uL] 187 K/uL (09/07/23 9:51 AM) 188 K/uL (09/06/23 5:56 AM) 202 K/uL (09/05/23 2:33 AM) PT [12.0-14.2 seconds] 14.9 seconds *HI* (09/05/23 2:33 AM) RBC [4.40-5.60 M/uL] 3.55 M/uL *LOW* (09/07/23 9:51 AM) 3.60 M/uL *LOW* (09/06/23 5:56 AM) 3.86 M/uL *LOW* (09/05/23 2:33 AM) Appear (u) CLEAR (09/07/23 12:09 PM) Color (u) YELLOW (09/07/23 12:09 PM) Glu (u) [NEG mg/dL] 50 mg/dL *Abnormal* (09/07/23 12:09 PM) Hgb (u) [NEG] MODERATE *Abnormal* (09/07/23 12:09 PM) pH (u) [5.0-8.0 unit] 6.0 unit (09/07/23 12:09 PM) Prot (u) [NEG mg/dL] 30 mg/dL *Abnormal* (09/07/23 12:09 PM) RBC (u) [0-4 /HPF] 30-49 /HPF (09/07/23 12:09 PM) Urobili [0.1-1.0 EU/dL] 0.1-1.0 EU/dL (09/07/23 12:09 PM) SG [1.005-1.030] 1.017 (09/07/23 12:09 PM) WBC (u) [0-4 /HPF] 0-4 /HPF (09/07/23 12:09 PM) WBC [4.0-10.4 K/uL] 6.61 K/uL (09/07/23 9:51 AM) 6.78 K/uL (09/06/23 5:56 AM) 9.68 K/uL (09/05/23 2:33 AM) 1Result Comment: Performed at: [address] [place] [address] 2Result Comment: Performed at: [address] [place] [address] 3Result Comment: Performed at: [address] [place] [address] 4Result Comment: To use the high-sensitivity cTnT assay, at least 2 blood samples should be drawnat time 0 and then at least 1h later. If the cTnT concentration at time 0 is greater than or equal to 53 ng/L in a patient whose clinicalpresentation is consistent with acute coronary syndrome, then there is a high likelihood that acutemyocardial injury is present. However, confirmation of acute myocardial injury still requires a second cTnT ravindra drawn. Delta cut-offs for determining the presence of acute myocardial injury have beenvalidated at the 1-hour and 2-hour time points referenced here. A 1-hour delta troponin >5 ng/L indicates acute myocardial injury. A 2h delta troponin >7 ng/L indicates acute myocardial injury. Values below these are consistent with chronic myocardial injury. For patients where there is a high index of suspicion for acute coronary syndrome, repeating the tests at 1 or 2 hours, and calculating a new delta, may be indicated. If the second sample is collected in less than 60 minutes, no delta calculationwill be performed. Deltas for blood samples drawn more than 3 hours apart have not been validated and will not be reported. Please interpret with caution. 5Result Comment: ADA recommendation for FASTING Serum/Plasma Glucose: Normal: 70-100 mg/dL Prediabetes: 100-125 mg/dL Diabetes: 126 mg/dL or higher 6Result Comment: ADA recommendation for FASTING Serum/Plasma Glucose: Normal: 70-100 mg/dL Prediabetes: 100-125 mg/dL Diabetes: 126 mg/dL or higher 7Result Comment: ADA recommendation for FASTING Serum/Plasma Glucose: Normal: 70-100 mg/dL Prediabetes: 100-125 mg/dL Diabetes: 126 mg/dL or higher 8Result Comment: Suggested therapeutic range for low-intensity Coumadin therapy for venous thromboembolism is INR 2.0-3.0 (ex: atrial fibrillation, history of TIA/stroke). For high risk patients, the suggested therapeutic range is INR 2.5-3.5 (ex: mechanical prosthetic valves). 9Result Comment: HEMOLYZED SPECIMEN Radiology Reports * Exam Date Time Procedure Performing Provider Status 09/06/23 10:18 AM Echo TransTHORacic TTE Complete w/ Co nt Tobin, Cassi; Final Notes: (Echo TransTHORacic TTE Complete w/ Cont) Reason For Exam: syncope Echo TransTHORacic TTE Complete w/ Cont Report Signatures Finalized by Dr. Zuhair Israel MD on 09/06/2023 01:10 PM [place] Act 112: No-No further action needed Summary 1. Failed 2D images were enhanced with Definity per lab protocol. 2. Mildly dilated left ventricle with moderately reduced systolic function with diffuse hypokinesis. 3. Ejection fraction as calculated by Biplane Simpsons method 32 %. 4. Mild left ventricular hypertrophy. 5. Right ventricular dilation with normal function. 6. Sclerotic trileaflet aortic valve without significant stenosis. Mild aortic regurgitation. 7. Insufficient TR for estimation of pulmonary artery systolic pressure. 8. No prior studies for comparison. Patient Info Name: BALDEMAR ALARCON Age: 72 years : 1950 Gender: Male Ht: 172 cm Wt: 78 kg BSA: 1.95 m2 HR: 80 bpm BP: 167 / 95 mmHg Heart Rhythm: Sinus Rhythm Technical Quality: Poor Exam Date: 09/06/2023 9:38 AM Exam Location: [place] [id number] Patient Status: Inpatient Staff Ordering Physician: Lawrence Delacruz Roughener: KEILY Bernard Attending Physician: Salazar Perez Study Info [facility] [id number] - [id number] - Indications R55 - Syncope and collapse Procedure(s) * A complete two-dimensional, color flow and Doppler transthoracic echocardiogram was performed. * Failed 2D images were enhanced with Definity per lab protocol. * Roughener, KEILY Bernard, provided education about ultrasound enhancing agent to the patient. Exam Type: Cardiac Basic Left Ventricle Mildly dilated left ventricle with moderately reduced systolic function with diffuse hypokinesis. Ejection fraction as calculated by Biplane Simpsons method 32 %. Mild left ventricular hypertrophy. Right Ventricle Right ventricular dilation with normal function. Right Atrium Normal right atrial size. Aortic Valve Sclerotic trileaflet aortic valve without significant stenosis. Mild aortic regurgitation. Pulmonic Valve Mild pulmonary regurgitation. Mitral Valve There is mitral annular calcification without significant stenosis or regurgitation. Tricuspid Valve Unremarkable tricuspid valve. Insufficient TR for estimation of pulmonary artery systolic pressure. Pericardium/Pleural Prominent epicardial fat pad. Inferior Vena Cava Normal IVC size and inspiratory collapse. Aorta Mildly dilated aortic root. Left Ventricular Outflow Tract Name Value Normal LVOT Doppler LVOT Peak Velocity 0.60 m/s LVOT Peak Gradient 1 mmHg LVOT Mean Gradient 1 mmHg LVOT VTI 10.42 cm LVOT VTI/AV VTI Ratio 0.64 Pulmonic Valve Name Value Normal RVOT Doppler RVOT Peak Velocity 0.40 m/s RVOT Peak Gradient 1 mmHg RVOT Mean Gradient 0 mmHg PV Doppler PV Peak Gradient 3 mmHg PV Mean Gradient 1 mmHg PV Regurgitation Doppler AL Peak Velocity 1.40 m/s AL Decel Time 982 ms AL PHT 285 ms Mitral Valve Name Value Normal MV Doppler MV PHT 61 ms MV Diastolic Function MV E Peak Velocity 0.34 m/s <=0.50 MV A Peak Velocity 0.53 m/s MV E/A 0.65 <=0.80 MV Decel Time 211 ms MV Annular TDI MV Septal s' Velocity 4.40 cm/s MV Septal e' Velocity 4.77 cm/s >=7.00 MV E/e' (Septal) 7.2 <=8.0 MV Lateral s' Velocity 5.01 cm/s MV Lateral e' Velocity 4.40 cm/s >=10.00 MV E/e' (Lateral) 7.78 <=8.00 MV e' Average 4.58 MV E/e' (Average) 7.48 <=14.00 Tricuspid Valve Name Value Normal Estimated PAP/RSVP RA Pressure 8 mmHg <=5 PA Mean Pressure (AL Velocity) 16 mmHg TV Diastolic Function TV E Peak Velocity 0.26 m/s TV A Peak Velocity 0.33 m/s TV E/A 0.80 0.80-2.00 TV Decel Time 120 ms >=120 TV Annular TDI TV Lateral Lisa s' Velocity 8.4 cm/s 9.5-18.7 TV Lateral Lisa e' Velocity 8.6 cm/s <7.8 TV E/e' 3.08 2.00-6.00 Aorta Name Value Normal Ascending Aorta Sinus of Valsalva Diameter 4.0 cm 3.1-3.7 Sinus of Valsalva Index 2.07 cm/m2 1.50-1.90 Venous Name Value Normal IVC/SVC IVC Diameter (Insp 2D) 0.9 cm IVC Diameter (Exp 2D) 1.6 cm <=2.1 IVC Diameter Percent Change (2D) 42 % >=50 Aortic Valve Name Value Normal AV Doppler AV Peak Velocity 1.02 m/s <2.00 AV Peak Gradient 4 mmHg AV Mean Gradient 3 mmHg <20 AV VTI 16.39 cm AV V1/V2 Ratio 0.58 AV Accel Time 66 ms Ventricles Name Value Normal LV Dimensions 2D/MM IVS Diastolic Thickness (2D) 1.2 cm 0.6-1.0 LVID Diastole (2D) 5.9 cm 3.6-5.6 LVIW Diastolic Thickness (2D) 1.1 cm 0.6-1.0 LVID Systole (2D) 4.1 cm 2.5-4.0 LV Mass (2D Cubed) 296.57 g 88.00-224.00 LV Mass Index (2D Cubed) 0.02 g/cm2 0.00-0.01 Relative Wall Thickness (2D) 0.38 LV Fractional Shortening/Ejection Fraction 2D/MM LV Fractional Shortening (2D) 30 % 25-43 LV Diastolic Volume (4C MOD) 151 ml LV Diastolic Volume (2C MOD) 191 ml LV Diastolic Volume (BP MOD) 168 ml 62-150 LV Diastolic Volume Index (BP MOD) 86.35 ml/m2 34.00-74.00 LV Systolic Volume (BP MOD) 115 ml 21-61 LV Systolic Volume Index (BP MOD) 58.75 ml/m2 11.00-31.00 LV EF (BP MOD) 32 % 57-68 LV SV (BP MOD) 53.81 ml LV End Diastolic Volume (BP A-L) 189.29 ml LV End Systolic Volume (BP A-L) 124.14 ml LV EF (BP A-L) 34 % RV Dimensions 2D/MM RV Basal Diastolic Dimension 4.6 cm 2.5-4.1 TAPSE 1.9 cm >=1.7 Atria Name Value Normal LA Dimensions LA Area (4C) 12.9 cm2 LA Length (4C) 3.8 cm LA Area (2C) 13.5 cm2 LA Length (2C) 3.9 cm LA Volume (4C A-L) 37.23 ml LA Volume (2C A-L) 39.70 ml LA Volume (BP A-L) 39 ml 18-58 LA Volume Index (BP A-L) 19.91 ml/m2 <=34.00 RA Dimensions RA Area (4C) 14.3 cm2 <=18.0 Final Signed by:MD Jhonatan, Zuhair Shannon Signed (Electronic Signature):09/06/2023 9:38 a * Exam Date Time Procedure Performing Provider Status 09/05/23 5:[address] Brain/Head w/o Contrast Steve Castellon; Final Notes: (CT Brain/Head w/o Contrast) Reason For Exam: fall, SAH eval CT Brain/Head w/o Contrast EXAMINATION: CT Brain/Head w/o Contrast CLINICAL HISTORY: fall, SAH eval COMPARISON: Outside CT 09/03/2021 TECHNIQUE: Routine tomographic images of the brain are obtained from the skull base to the vertex without the use of intravenous contrast, coronal and sagittal reconstructions. DOSE: Total Reported Dose Length Product (DLP) = 988.78 mGy.cmmGycm FINDINGS: Cerebral parenchyma: Trace subarachnoid blood products within the right superior frontal sulcus andsylvian fissure, very slightly increased from prior. Periventricular hyperintensity, likely reflecting chronic microvascular disease. Extra-axial spaces: Trace subdural hematoma about the right frontal convexity measuring 3 mm in thickness, new from outside CT. Ventricles: Trace blood products layering within the left occipital horn. No hydrocephalus. Mass effect: No mass effect Basal cisterns: Preserved Posterior fossa: No tonsillar herniation Calvarium: No calvarial fracture. Left posterior scalp contusion/hematoma and additional small right frontal convexity scalp contusion. Sella:Normal Visualized paranasal sinuses/mastoid: Clear Visualized orbits: Lens replacement. IMPRESSION: 1. Trace subarachnoid blood products within the right superior frontal sulcus, sylvian fissure, andnow layering within the left occipital horn. This is slightly increased in volume from prior CT. 2. New trace subdural hematoma about the right frontal convexity. Dr. Elias Carrero is the dictating resident. Finalized reports status indicates that the attendinghas reviewed the images and report, and agrees with the interpretation. Preliminary report status should be regarded as NOT interpreted by the attending radiologist Workstation ID: [id number] Final Dictated by:DO Carrreo Matthew Dictated DT/TM:09/05/2023 8:46 Resident:DO Carrero Matthew Signed by:MD Ontiveros Danilo Signed (Electronic Signature):09/05/2023 8:45 a * Exam Date Time Procedure Performing Provider Status 09/05/23 1:[address] Abdomen and Pelvis Consult Hoste Kelli aguilera; Final Notes: (OO CT Abdomen and Pelvis Consult) Reason For Exam: Trauma transfer OO CT Abdomen and Pelvis Consult EXAMINATION: CT chest, abdomen and pelvis performed at [facility] on 09/04/2023 CLINICAL HISTORY: Trauma transfer COMPARISON: None TECHNIQUE: Transverse, coronal and sagittal images from a contrast enhanced CT scan of the chest, abdomen and pelvis performed at [facility] were submitted for outside interpretation. The image set includes arterial and venous phase images and also includes 3-D reconstructions of the aortic arch and perfusion images of the lungs. FINDINGS: Chest: There is dependent atelectasis and linear scarring in the right lung periphery. Lungs are otherwise clear, without evidence of pulmonary contusion or aspiration. No pleural effusion or pneumothorax is seen. There are no rib fractures. Coronary artery calcifications are present in the heart may be mildly enlarged. Fusion hardware is present in the lower cervical and upper thoracic spine. Thoracic aorta appears normal in contour and caliber, including on 3-D reconstruction images. Abdomen: Liver, spleen, gallbladder, pancreas and adrenal glands appear normal. There is an approximately 1.3 cm nonobstructing stone in the right renal pelvis, and small intrarenal stones are seen centrally of the left kidney collecting system as well. There are bilateral renal cysts. Kidneys enhance symmetrically on both phases. No retroperitoneal lymphadenopathy is appreciated. Bowel is nonobstructed. There are atheromatous vascular changes. There is no free fluid or free air, and no evidence of traumatic injury to the hollow or solid viscera. Bones are demineralized. Chronic disc and degenerative changes of the spine are present. Pelvis: Bladder appears intact. No pelvic fractures are identified. Right hip arthroplasty prosthesis causes significant metallic artifact. IMPRESSION: No acute traumatic injury to the chest, abdomen or pelvis. Chronic, degenerative and senescent changes are as described above. Workstation ID: [id number] Final Dictated by:MD Desai Michael A Dictated DT/TM:09/07/2023 4:26 Signed by:MD Desai Michael A Signed (Electronic Signature):09/07/2023 4:25 p * Exam Date Time Procedure Performing Provider Status 09/05/23 1:[address] Chest Consult [place], Kelli; Final Notes: (OO CT Chest Consult) Reason For Exam: Trauma transfer OO CT Chest Consult EXAMINATION: CT chest, abdomen and pelvis performed at [facility] on 09/04/2023 CLINICAL HISTORY: Trauma transfer COMPARISON: None TECHNIQUE: Transverse, coronal and sagittal images from a contrast enhanced CT scan of the chest, abdomen and pelvis performed at [facility] were submitted for outside interpretation. The image set includes arterial and venous phase images and also includes 3-D reconstructions of the aortic arch and perfusion images of the lungs. FINDINGS: Chest: There is dependent atelectasis and linear scarring in the right lung periphery. Lungs are otherwise clear, without evidence of pulmonary contusion or aspiration. No pleural effusion or pneumothorax is seen. There are no rib fractures. Coronary artery calcifications are present in the heart may be mildly enlarged. Fusion hardware is present in the lower cervical and upper thoracic spine. Thoracic aorta appears normal in contour and caliber, including on 3-D reconstruction images. Abdomen: Liver, spleen, gallbladder, pancreas and adrenal glands appear normal. There is an approximately 1.3 cm nonobstructing stone in the right renal pelvis, and small intrarenal stones are seen centrally of the left kidney collecting system as well. There are bilateral renal cysts. Kidneys enhance symmetrically on both phases. No retroperitoneal lymphadenopathy is appreciated. Bowel is nonobstructed. There are atheromatous vascular changes. There is no free fluid or free air, and no evidence of traumatic injury to the hollow or solid viscera. Bones are demineralized. Chronic disc and degenerative changes of the spine are present. Pelvis: Bladder appears intact. No pelvic fractures are identified. Right hip arthroplasty prosthesis causes significant metallic artifact. IMPRESSION: No acute traumatic injury to the chest, abdomen or pelvis. Chronic, degenerative and senescent changes are as described above. Workstation ID: [id number] Final Dictated by:MD Desai Michael A Dictated DT/TM:09/07/2023 4:26 Signed by:MD Desai Michael A Signed (Electronic Signature):09/07/2023 4:25 p * Exam Date Time Procedure Performing Provider Status 09/05/23 1:[address] Head Consult Meggan, Kelli; Final Notes: (OO CT Head Consult) Reason For Exam: Trauma transfer OO CT Head Consult EXAMINATION: OO CT Head Consult CLINICAL HISTORY: Trauma transfer COMPARISON: None FINDINGS: The secondary interpretation of this outside imaging study will not be performed because new CT scan report dated 09/05/2023 is already in the system. IMPRESSION: The secondary interpretation of this outside imaging study will not be performed because new CT scan report dated 09/05/2023 is already in the system. Workstation ID: [id number] Final Dictated by:MD Tobin Sangam G Dictated DT/TM:09/06/2023 9:21 Signed by:MD Tobin Sangam G Signed (Electronic Signature):09/06/2023 9:20 a * Exam Date Time Procedure Performing Provider Status 09/05/23 1:[address] Spine Lumbar/Sacral Consult Host Kelli vera; Final Notes: (OO CT Spine Lumbar/Sacral Consult) Reason For Exam: Trauma transfer OO CT Spine Lumbar/Sacral Consult EXAMINATION: CT scan performed at [facility] CLINICAL HISTORY: Trauma transfer COMPARISON: None TECHNIQUE: CT scan of the thoracic and lumbar spine performed with contrast. Sagittal and reconstructed imageswere made available. FINDINGS: THORACIC SPINE: Alignment: [Thoracic spine shows normal alignment. There are changes of posterior fusion at C3-T2 level. No evidence of fracture or spondylolisthesis seen on the sagittal and coronal reconstruction.] Vertebrae: [Thoracic vertebrae show normal bone density and height. There is no evidence of fracture or compression seen. There are degenerative changes commensurate with age.] Paraspinal space: [Pre and para spinal soft tissues are normal. ] LUMBAR SPINE: Alignment: [Lumbar spine shows normal alignment. No evidence of fracture or spondylolisthesis seen on the sagittal and coronal reconstruction.] Vertebrae: [Lumbar vertebrae show normal bone density and height. There is no evidence of fracture or compression seen. There are degenerative changes commensurate with age. ] Paraspinal space: [Pre and para spinal soft tissues are normal. ] IMPRESSION: No acute osseous injury to thoracic and lumbar spine. Workstation ID: [id number] Final Dictated by:MD Tobin Sangam G Dictated DT/TM:09/06/2023 12:52 Signed by:MD Tobin Sangam G Signed (Electronic Signature):09/06/2023 12:51 * Exam Date Time Procedure Performing Provider Status 09/05/23 1:[address] Spine Thoracic Consult Kelli Broderick; Final Notes: (OO CT Spine Thoracic Consult) Reason For Exam: Trauma transfer OO CT Spine Thoracic Consult EXAMINATION: CT scan performed at [facility] CLINICAL HISTORY: Trauma transfer COMPARISON: None TECHNIQUE: CT scan of the thoracic and lumbar spine performed with contrast. Sagittal and reconstructed imageswere made available. FINDINGS: THORACIC SPINE: Alignment: [Thoracic spine shows normal alignment. There are changes of posterior fusion at C3-T2 level. No evidence of fracture or spondylolisthesis seen on the sagittal and coronal reconstruction.] Vertebrae: [Thoracic vertebrae show normal bone density and height. There is no evidence of fracture or compression seen. There are degenerative changes commensurate with age.] Paraspinal space: [Pre and para spinal soft tissues are normal. ] LUMBAR SPINE: Alignment: [Lumbar spine shows normal alignment. No evidence of fracture or spondylolisthesis seen on the sagittal and coronal reconstruction.] Vertebrae: [Lumbar vertebrae show normal bone density and height. There is no evidence of fracture or compression seen. There are degenerative changes commensurate with age. ] Paraspinal space: [Pre and para spinal soft tissues are normal. ] IMPRESSION: No acute osseous injury to thoracic and lumbar spine. Workstation ID: [id number] Final Dictated by:MD Tobin Sangam G Dictated DT/TM:09/06/2023 12:52 Signed by:MD Tobin Sangam G Signed (Electronic Signature):09/06/2023 12:51 Vital Signs Most recent to oldest [Reference Range]: 1 2 3 Height 172 cm (09/05/23 1:34 AM) Patient Weight 77.4 kg (09/07/23 3:42 AM) 78.4 kg (09/06/23 4:06 AM) 78.9 kg (09/05/23 5:00 AM) Body Mass Index 26.67 kg/m2 (09/05/23 5:00 AM) 27.41 kg/m2 (09/05/23 1:34 AM) Temperature [36.5-37.9 DegC] 36.0 DegC *LOW* (09/07/23 11:30 AM) 36.2 DegC *LOW* (09/07/23 8:55 AM) 36.0 DegC *LOW* (09/07/23 4:59 AM) Heart Rate 89 bpm (09/07/23 11:30 AM) 82 bpm (09/07/23 8:55 AM) 68 bpm (09/07/23 4:59 AM) Respiratory Rate 18 br/min (09/07/23 11:30 AM) 18 br/min (09/07/23 8:55 AM) 18 br/min (09/07/23 4:59 AM) Blood Pressure 132/83mmHg (09/07/23 11:30 AM) 125/87mmHg (09/07/23 8:55 AM) 145/80mmHg (09/07/23 4:59 AM) Mean Blood Pressure 97 mmHg (09/07/23 11:30 AM) 99 mmHg (09/07/23 8:55 AM) 97 mmHg (09/07/23 4:59 AM) Cuff Pulse Pressure 49 mmHg (09/07/23 11:30 AM) 38 mmHg (09/07/23 8:55 AM) 65 mmHg (09/07/23 4:59 AM) BP Location # 1 Left Arm (09/07/23 11:30 AM) Left Arm (09/07/23 8:55 AM) Left Arm (09/07/23 4:59 AM) Social History Social History Type Response Smoking Status Never smoked cigaret jose ramon Sex Male Radiology * Contributor_system, [id number]: VERIFY, PERFORM Event Display: EKG Authored Date: Please click on link to see image. History and physical note * Gerard Calhoun MD, Lawrence: MODIFY, MODIFY, PERFORM DO Abel Ashley Rae: MODIFY Event Display: H&P Authored Date: Name:BALDEMAR ALARCON Patient Number:[id number] :1950 Date of Service:09/05/2023 Chief Complaint transfer from outside facility mechanical fall on eloquis known ICB with head lac repaired at outside facility gcs= 14 some confusion at baseline History of Present Illness Mr. 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 Per report,earlier today the patient's familyheard a falland found the patient laying on the bathroom floorbetween the tub and the toilet. He was taken to referring facility where he was evaluatedand found to to be afebrile, nontachycardic, and hypertensive.He was further evaluated with CT scans of thehead, C-spine, chest abdomen and pelviswhich revealeda subdural and subarachnoid hemorrhageand he reported noother traumatic abnormalities. Laboratory work revealeda lactic acidosis of4.1 and an INR of 1.7. He was givenfluid [id number] unitsprior to transfer. On evaluation in the emergency department, the patientreports headache.He is alert and oriented. He is afebrile, mildly tachycardic with a heart rate in the 100s, and hypertensive with systolic blood pressure in 150s. PMH: T2DM, PE/DVT, BPH, anxiety, depression, HLD, hyperparathyroidism PSH: cspine fusion Meds: Atorvastatin, omeprazole, finasteride, amitriptyline, duloxetine, glipizide, cinacalcet, warfarin Review of Systems Complete 14 point review of system is negative except for what is stated in the HPI. Physical Exam Vitals & Measurements T:37.1C HR:103(Monitored) RR:18 BP:151/103 SpO2:99% HT:172cm WT:81.100kg(Dosing) WT:81.1kg BMI:27.41 General:laying in bed, NAD HEENT:laceration to left temporal area with kyler in place,sclerae anicteric, anterior scalp wound from skin cancer resection with fibrinous exudate Neck:supple, trachea midline Cardiac:RRR Lungs:CTAB, non labored breathing Abdomen:soft, mild tenderness to palpation around umbilicus, non-distended Extremities:no edema, clubbing, or cyanosis Neuro:no focal deficits Skin:no visible lesions Assessment/Plan Mr. 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 He was found to have a scalp laceration, a2mm right SDH, and a SAH. Neuro: Pain - Tylenol, Dilaudid - SDH, SAH -NSGY consulted,repeathCT at 6 hrs, keppra 500mg IV BID - Kcentra given atreferringfacility - scalp laceration to left posterior temporal area - stappled at refering facility - Mood disorder - holding home Amitriptyline and Duloxetine while NPO CV: hemodynamically stable - Hx HLD - holding home Atorvastatin while NPO - Syncope - will obtain troponin, EKG and TTE to rule out cardiogenic etiology Pulm: no acute issues GI:NPO - hx GERD - PPI : pLyte @ 120 - Lactic acidosis - 4.2 at refering facility,received fluid bolus, will repeat level - BPH - holding finasteride whileNPO ID:No evidence of active infection at this time Heme - Hx of DVT/PE - holding Warfarin in setting of TBI - INR 1.6 prior to transferred, received Kcentra [id number] at referring facility Endo - no acute issues - hxof DM, holding home metformin and glipizide,ISS low PTX: SCDs,holdingDVT chemoprophylaxis in the setting of TBI [place] [place] Attestation Teaching Physician Attestation: I discussed the patient with the resident team. I have reviewed the resident note, labs, imaging, and radiology reports and the findings have been confirmed. I agree with the assessment and plan as documented and/or amended above. Accepted in transfer from referring facility with SDH/SAH after fall. On coumadin for h/o DVT/PE. Reversed with Kcentra prior to transfer. Plan for NSG consult. Repeat CT Head in6 hours, kepprax 7 days for seizure ppx.Lactic acidosis of 4.2, will start IVF and monitor. Admitted to [facility] for q2h neurochecks. -Susanna Abel Problem List/Past Medical History Ongoing Actinic Keratosis BCC (basal cell carcinoma of skin) Elevated cholesterol History of asthma Hodgkins lymphoma Hypercalcemia Hyperparathyroidism Hypertension Type 2 diabetes mellitus Procedure/Surgical History neck surgery| Service Date: 08/13/2018neck surgery| Service Date: 07/13/2018Shave biopsy| Service Date: 09/28/2017Excision of basal cell carcinoma| Service Date: 05/18/2015Lymph nodeArthroscopy of kneeHernia repairShave biopsy and cauterization of skin Medications Inpatient Electrolyte IV Solution 1,000 mL, 1000 mL, IV Fluid insulin regular(Sliding Scale Low), SSI, subQ, q6h pantoprazole(Protonix), 40 mg, IV Push, Daily Home acetaminophen(Tylenol Extra Strength 500 mg oral tablet), 500 mg= 1 tab, PO, PRN alendronate(Fosamax 70 mg oral tablet), 70 mg= 1 tab, PO, q7days, 4 refills amitriptyline, See Instructions atorvastatin(atorvastatin 40 mg oral tablet), 40 mg= 1 tab, PO, Daily baclofen, 5 mg, PO, tid cinacalcet(Sensipar 30 mg oral tablet), 30 mg= 1 tab, PO, Daily, 5 refills DULoxetine(Cymbalta 60 mg oral delayed release capsule), 60 mg= 1 cap, PO, Daily gabapentin(gabapentin 100 mg oral capsule), 100 mg= 1 cap, PO, bid glimepiride, 4 mg, PO, Daily lisinopril, 2.5 mg, PO, Daily menthol-zinc oxide topical(Calmoseptine), See Instructions metFORMIN(metFORMIN 1000 mg oral tablet), 1000 mg= 1 tab, PO, bid nitroglycerin(Nitrostat 0.4 mg sublingual tablet), 0.4 mg= 1 tab, SL, q5min, PRN ondansetron, 4 mg, PO, PRN polyethylene glycol 3350(MiraLax oral powder for reconstitution), 17 g, PO, Daily, PRN sodium chloride nasal(Deep Sea Nasal 0.65% nasal spray), See Instructions, PRN tamSULOsin(tamsulosin 0.4 mg oral capsule), 0.4 mg= 1 cap, PO, Daily warfarin(warfarin 5 mg oral tablet), 5 mg= 1 tab, PO, Daily Allergies Catssinus symptoms, swelling, problems breathing No Known Medication Allergies Social History Smoking Status Never smoked cigarettes Family History Lymphoma: Mother. Pulmonary embolism: Father. Electronic Signature on File Electronically Reviewed/Signed by: Lawrence Calhoun MD Author Signature Dt/Tm:09/05/2023 03:18 AM Resident Division of General Surgery Electronically Reviewed/Signed by: DO Rochelle Gipson Signature Dt/Tm: 09/07/2023 02:40PM Division of Trauma Surgery Electronically Reviewed/Signed by: Lawrence Calhoun MD Resident Division of General Surgery RP Geriatrics Consult * MD Ford Amy M: MODIFY, MODIFY, PERFORM Event Display: Geriatrics Consult Authored Date: [id number] 5 M's ASSESSMENT/RECOMMENDATIONS: Baldemar Alarcon is a 72M who resides at home with dependent on IADLs, gait d/o using walker with significant PMH of DM, HTN, chronic pain, Hodgkins lymphoma, PE/DVT hx on warfarinadmitted s/p unwitnessedfall sustaining R frontal TSAH and requiring sutures for laceration back of head. 1.) Mentation: -deliriumno - memoryintact - depressionno - anxietyno 2.) Mobility: - assistive deviceyes - history of gait dysfunction - consult PT forgait disfunction - recommendOOB to chair for meals 3.) Medications: - patient meets definition of polypharmacy(5 or more medications)yes - avoid anticholinergics - review for polypharmacy for prescribing cascades (medications prescribed to treat the side effects of other medications)and opportunities for deprescribing recommendations (i.e. Beers List medications) = recommend DC baclofen and wean off amitriptyline 4.) What Matters/Disposition: - who helps with medical decision-makingspouse - what is important to you today (and in the future)?maintain function 5.) Multi-Complexity: # fall - likely multifactorial in setting of gait d/o and polypharmacy - recommend DC baclofen and wean amitriptyline down to 25mg pm x7 days and then stop - recommend checking HbA1c to ensure hypoglycemia not playing a role - PT/OT following # anticoagulation - review PE/DVT hx and need for warfarin - recommendshared decision-making with patient/ around the benefit/burden of anticoagulation # risk for delirium - per sometimes gets confused in hospital setting: however never needed restraints or medications. Evidence supports first-line non-pharmacologic multidisciplinary delirium management measures: -Encourage family presence at the bedside, which will help with orientation, as well as provide comfort to the patient -Can encourage family to bring a familiar object (blanket, pictures, music, etc.) from home that may provide comfort of distraction to the patient -Avoid sleep deprivation & promote sleep hygiene (blinds open during the day, patient awake during day hours, quiet time at night, cluster care at night to prevent interruptions of sleep, if possible) -Encourage mobilization and activity with supervision and assistance -Minimize tethers (IVs, monitor lines, catheters, restraints) as much as possible. -Provide sensory devices (eyeglasses, hearing aides) if applicable -Offer frequent redirection and reorientation as needed while awake -Monitor and treat for volume depletion to prevent dehydration (can precipitate/exacerbate delirium) -Assess & treat for any urinary retention or constipation (can precipitate/exacerbate delirium) -Avoid/minimize common medications that cause delirium: diphenhydramine, narcotics, benzodiazepines, anticholinergics, antihistamines, if possible -Monitor and treat for reversible causes of delirium: Drugs, Electrolyte Disturbances, Infection, Intracranial Disorders, Bowel/Bladder Dysfunction, Myocardial/Pulmonary Disorders-->Continue to encourage and push PO fluid intake -Non-pharmacologic measures should always be taken first. Antipsychotics can increase risk of stroke, extrapyramidal symptoms (EPS), worsen metabolic profile, prolong QTc, lengthen or worsen delirium, as well as increase overall all-cause mortality (especially in older adults). -Consider sitter to attend to, re-orient, and re-direct pt as needed # dispo - may be appropriate for subacute versus acute rehaband patient/ agreeable [place] Text Dr. Meeks and spoke with bedside RN Orlando. Thank you for allowing Geriatric Medicine to participate in the care of this patient. We willchart check & return as the need arises. Please do not hesitate to contact us if you have any questions, concerns or upon patient/family request via TigerText to [facility] [place] Geriatric Consults On-Call. Chief Complaint transfer from outside facility mechanical fall on eloquis known ICB with head lac repaired at outside facility gcs= 14 some confusion at baseline Reason for Consultation fall geriatric assessment polypharmacy Requesting Consult Service Trauma Team - Dr. Casetllon History of Present Illness Baldemar Alarcon is a 72M who resides at home with dependent on IADLs, gait d/o using walker with significant PMH of DM, HTN, chronic pain, Hodgkins lymphoma, PE/DVT hx on warfarinadmitted s/p unwitnessedfall sustaining R frontal TSAH and requiring sutures for laceration back of head. Per patient and , he went to go to the bathroom and fell. He does not recallany ofthe details. Last major hospital stay was 5 years ago for a fall suffering spinal fractures requiring repair andextended rehabilitation with depression/anorexia. He has been on baclofen and amitriptyline ever since. History of being confused in the hospital as well. Typical Day = recliner, watching TV, not as active as he used to be Review of Systems Geriatric Focused ROS: Hearing Symptoms +MI'KMAQ Visual Symptomswears glasses Urinary Symptomsno symptoms Nutrition Symptomsno symptoms Dental Symptomsno symptoms Gait Symptomsuses a walker Fall Symptomsotherfall 5 years ago sustaining injuries and requiring prolonged rehab stay Caregiver Stress Symptomsstressful Check if negativeSystemSymptoms (details) _x Constitutional _ _x Eyes _ _x Ears, Nose, Mouth, Throat _ _x Cardiovascular _ _x Respiratory _ _x Genitourinary _ _x Gastrointestinal _ _x Musculoskeletal _ _x Skin _ _x Neurologic _ _x Psychiatric _ _x Endocrine _ _x Hematologic/Lymphatic _ _x Allergic/Immunologic _ Physical Exam Vitals & Measurements T:36.0C TMIN:36.0C TMAX:37.1C HR:90(Monitored) RR:20 BP:138/84 SpO2:98% Oxygen Therapy:Room air WT:78.9kg Input and Output - Last 24 hours (Last 8 hours) Total In: 631 (631) Total Out: 500 (500) Total Balance: 131 (131) Electrolyte IV Solution 1,000 mL:41 (41) 09/05/2023 Straight Cath:500 (500) MED INTAKE:350 (350) Oral Fluids:240 (240) General:no apparentdistress,robust-appearing,-cachectic Eyes: no scleral icterus ENMT:moistmucous membranes,goodteeth,notemporal wasting Cardiovascular:regularrate and rhythm Respiratory: lungs clear to auscultation ant/lat exam GI: normal bowel sounds, non-tender/non-distended, soft Musculoskeletal:nosarcopenia Neuro:alertattentive, oriented xperson, place, and time; grossly nonfocal; moves all extremities Ext:noedema,_ Skin: no obvious rash Psych:appropriateaffect History obtained from patient andfamily and bedside 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 ASSESSMENT: Prior documentation of Cognitive Impairment or Dementia: No Mini-Cog Score:4/5 (Normal) Delirium Screening:Negative Activities of Daily Living: Feeding:Independent Transferring:Independent Toileting:Independent Dressing:Needs Assistance Bathing:Dependent Instrumental Activities of Daily Living: Using the telephone:Independent Shopping:Dependent Preparing food:Dependent Housekeeping:Dependent Doing laundry:Dependent Using transportation/driving:Dependent Handling medications:Dependent Handling finances:Dependent Continence:Continent of Bowel and Bladder Impaired mobility: YesIf yes, type of assistive device:Walker History of falls in past year?(If yes, # of falls if known):No Any Signs of Poor Nutritional State?:N/A Difficulty swallowing:No Is patient experiencing any emotional or spiritual distress related to their current health condition?No Caregiver Assessment: How stressful is caring for your loved one on a scale of 1 (not stressful) to10 (extremely stressful)?5 Suspectedneglect or abuse?No Diagnostic Results (09/05/2023 05:[address] Brain/Head w/o Contrast) Reason For Exam fall, SAH eval CT Brain/Head w/o Contrast EXAMINATION: CT Brain/Head w/o Contrast CLINICAL HISTORY: fall, SAH eval COMPARISON: Outside CT 09/03/2021 TECHNIQUE: Routine tomographic images of the brain are obtained from the skull base to the vertex without the use of intravenous contrast, coronal and sagittal reconstructions. DOSE: Total Reported Dose Length Product (DLP) = 988.78 mGy.cmmGycm FINDINGS: Cerebral parenchyma: Trace subarachnoid blood products within the right superior frontal sulcus andsylvian fissure, very slightly increased from prior. Periventricular hyperintensity, likely reflecting chronic microvascular disease. Extra-axial spaces: Trace subdural hematoma about the right frontal convexity measuring 3 mm in thickness, new from outside CT. Ventricles: Trace blood products layering within the left occipital horn. No hydrocephalus. Mass effect: No mass effect Basal cisterns: Preserved Posterior fossa: No tonsillar herniation Calvarium: No calvarial fracture. Left posterior scalp contusion/hematoma and additional small right frontal convexity scalp contusion. Sella:Normal Visualized paranasal sinuses/mastoid: Clear Visualized orbits: Lens replacement. IMPRESSION: 1. Trace subarachnoid blood products within the right superior frontal sulcus, sylvian fissure, and now layering within the left occipital horn. This is slightly increased in volume from prior CT. 2. New trace subdural hematoma about the right frontal convexity. [1] Attestation I personally have spent81+ minutesreviewing the patient's chart, discussing with interprofessional health care team, performing bedside assessment, creating recommendations and assisting with care coordination. Problem List/Past Medical History Ongoing Actinic Keratosis BCC (basal cell carcinoma of skin) Elevated cholesterol History of asthma Hodgkins lymphoma Hypercalcemia Hyperparathyroidism Hypertension Type 2 diabetes mellitus Procedure/Surgical History neck surgery| Service Date: 08/13/2018neck surgery| Service Date: 07/13/2018Shave biopsy| Service Date: 09/28/2017Excision of basal cell carcinoma| Service Date: 05/18/2015Lymph nodeArthroscopy of kneeHernia repairShave biopsy and cauterization of skin Medications Inpatient amitriptyline, 25 mg= 1 tab, PO, q12h atorvastatin, 40 mg= 1 tab, PO, Daily DULoxetine(Cymbalta), 60 mg= 2 cap, PO, Daily insulin lispro(HumaLOG Sliding Scale Low), SSI, subQ, ac and hs levETIRAcetam(Keppra), 500 mg= 1 tab, PO, bid mupirocin topical(mupirocin 2% nasal ointment), 1 appl, each nostril, bid Home acetaminophen(Tylenol Extra Strength 500 mg oral tablet), 500 mg= 1 tab, PO, PRN alendronate(Fosamax 70 mg oral tablet), 70 mg= 1 tab, PO, q7days, 4 refills amitriptyline, See Instructions atorvastatin(atorvastatin 40 mg oral tablet), 40 mg= 1 tab, PO, Daily baclofen, 5 mg, PO, tid cinacalcet(Sensipar 30 mg oral tablet), 30 mg= 1 tab, PO, Daily, 5 refills DULoxetine(Cymbalta 60 mg oral delayed release capsule), 60 mg= 1 cap, PO, Daily gabapentin(gabapentin 100 mg oral capsule), 100 mg= 1 cap, PO, bid glimepiride, 4 mg, PO, Daily lisinopril, 2.5 mg, PO, Daily menthol-zinc oxide topical(Calmoseptine), See Instructions metFORMIN(metFORMIN 1000 mg oral tablet), 1000 mg= 1 tab, PO, bid nitroglycerin(Nitrostat 0.4 mg sublingual tablet), 0.4 mg= 1 tab, SL, q5min, PRN ondansetron, 4 mg, PO, PRN polyethylene glycol 3350(MiraLax oral powder for reconstitution), 17 g, PO, Daily, PRN sodium chloride nasal(Deep Sea Nasal 0.65% nasal spray), See Instructions, PRN tamSULOsin(tamsulosin 0.4 mg oral capsule), 0.4 mg= 1 cap, PO, Daily warfarin(warfarin 5 mg oral tablet), 5 mg= 1 tab, PO, Daily Allergies Catssinus symptoms, swelling, problems breathing No Known Medication Allergies Social History Smoking Status Never smoked cigarettes Family History Lymphoma: Mother. Pulmonary embolism: Father. Lab Results reviewed, of note, Hbg 12, INR 1.2, Alb >3.5 [1]CT Brain/Head w/o Contrast; MD Ontiveros Danilo 09/05/2023 05:21 EDT Electronic Signature on File Electronically Reviewed/Signed by: Emily Ford MD Author Signature Dt/Tm:09/05/2023 03:14 PM Division of Internal Medicine AMW * MD Jeremi, Ethan Aguirre: MODIFY MD Charis, Felecia Ramos: PERFORM, MODIFY MD Charis, Felecia Ramos: MODIFY Event Display: Neurosurgery Consult Authored Date: NEUROSURGERY INPATIENT CONSULTATION REPORT Name: BALDEMAR ALARCON Patient Number: [id number] : 1950 Date of Service: 09/05/2023 Date Patient Evaluated: 09/05/23 Time Patient Evaluated: c/s at 222 pt seen 245 recs given 311 REQUESTING SERVICE: trauma surgery REASON FOR CONSULTATION: R frontal tSAH ASSESSMENT: 72 yo m hx of DVT/PE on warfarin presenting after unwitnessed ground level fall with r frontal tSAH RECOMMENDATIONS: _ 1 ) r CTH 6 hrs from first scan 2 ) hold warfarin, r/s plan pending 3 ) q2NC until after CTH 4) keppra 500 BID 5) plov plan pending- likely 24 hrs from stable scan History of Present Illness: 72 yo m hx of DVT/PE on warfarin presenting after unwitnessed ground level fall with r frontal tSAH, possible R trace SDH vs artifact. patient states he is amnestic to theevent and lost consciousness. Per report, family heard a thud and the patient was found in the bathroom on the ground with head laceration. Patient has never had this happen before. He has had falls in past but never where he has lost consciousness. He currently denies any HUMPHREYS/N/V. Denies any focal neurological deficits. Walks with walker at home after c-spine injury (5 years ago) and recent hip replacement Review Of Systems: A 14 point review of systems was performed and was negative except for as in HPI Past Medical History: DM Type 2, DVT/PE, cervical spine injury after fall, hyperparathyroidism, BPH Surgical History: posterior cervical spine surgery (Stamps) , R hip replacement, Mohs surgery Family History: noncontributory Social History: lives at home with of 40+ years Allergies and Sensitivities: No Known Medication Allergies Cats(sinus symptoms, swelling, problems breathing) Active Inpt Meds: insulin regular (Sliding Scale Low) subQ q6h pantoprazole (Protonix) 40 mg IV Push Daily Active PRN Meds: None One Time Meds: None Active IV Meds: Electrolyte IV Solution 1,000 mL 1,000 mL 120 mL/HR Vitals: Last Updated 09/05/23 01:34 Weights: Last Updated 09/05/23 01:34 Date Temp Pulse BP RR SpO2 FIO2 Date Wt(kg) Wt(lb) 09/04 01:34 37.1 103 151/103 18 99 04 01:34 81.1 178 09/04 01:34 81.1 178 24 Hr Tmax: 37.1 at 09/04 01:34 Initial Wt: 09/04 81.1 kg 178 lb Physical Exam: AAOx3, PERRL, EOMI, Facial sensation intact in V1, V2, V3 distributions bilaterally, FS, Tongue midline RUE: 5/5 proximally and distally LUE: 5/5 proximally and distally RLE: 5/5 proximally and distally LLE: 5/5 proximally and distally Intact prslbp-by-mviz No drift Sensation grossly intact in all extremities L parietal head lac stapled mohs surgery with purulent discharge Most Recent 24 Hour CBC/BMP Results CBC: on 09/05/2023 02:33 12.1 9.7 202 35.9 Most Recent 24 Hour Labs: 09/05/23 0233 MCH 31.3 MCHC 33.7 MCV 93.0 RBC 3.86 L MPV 9.8 RDW 14.2 Studies: Pending or Completed in the Last [address] Abdomen and Pelvis Consult Ordered OO CT Chest Consult Ordered OO CT Spine Cervical Consult Ordered OO CT Spine Lumbar/Sacral Consult Ordered OO CT Spine Thoracic Consult Ordered Echo TransTHORacic TTE Complete Ordered OO CT Head Consult Ordered EKG Ordered EKG (ED) Completed I Ethan Blood MD reviewed the history, exam findings and imaging. I agree with the plans as described above Electronic Signature on File Electronically Reviewed/Signed by: Felecia Vizcaino Author Signature Dt/Tm:09/05/2023 03:23 AM Resident Department of Neurosurgery Electronically Reviewed/Signed by: Ethan Blood MD Cosigner Signature Dt/Tm: 09/05/2023 01:56 PM Department of Neurosurgery FAVIO .D/C Summary * SUZE Pitts, Jovon F: PERFORM MD Perez John S: MODIFY Event Display: .D/C Summary Authored Date: [id number] [facility] For medical concerns, call: . Address: [address] [place] [id number] (HOME) :1950 . Date of Admission:09/05/2023 Date of Discharge:09/07/2023 Physician:MD Perez John S Service:Trauma Surgery Discharge Disposition: Primary Care Provider/Phone: PHILIP KONG NANCY (BUSINESS) [phone] (FAX BUSINESS) Principal Diagnosis: Trauma Other Diagnoses: Subdural hematoma, acute SAH (subarachnoid hemorrhage) Anticoagulated At risk for delirium Diabetes Encounter for geriatric assessment Fall at home Gait disorder Hard of hearing Polypharmacy Uses walker Hospital Course: Mr. 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 Per report,earlier today the patient's familyheard a falland found the patient laying on the bathroom floorbetween the tub and the toilet. He was taken to referring facility where he was evaluatedand found to to be afebrile, nontachycardic, and hypertensive.He was further evaluated with CT scans of thehead, C-spine, chest abdomen and pelviswhich revealeda subdural and subarachnoid hemorrhageand he reported noother traumatic abnormalities. Laboratory work revealeda lactic acidosis of4.1 and an INR of 1.7. He was givenfluid [id number] unitsprior to transfer. On evaluation in the emergency department, the patientreports headache.He is alert and oriented. He is afebrile, mildly tachycardic with a heart rate in the 100s, and hypertensive with systolic blood pressure in 150s. He was admitted to the trauma surgery service and NS consulted. NS recommended: -rCTH stable -ok for Q4 NC -ok for pLov 24h from stable scan -warfarin rs 7 days from stable scan -keppra 7days 500bid -we will see in clinic in 1 mo w/ [facility] Etiology of fall is unknown. Troponin negative. EKG = sinus tach. Echocardiogram was forwarded to his primary care, Dr Kaiser Amanda since there were definite changes from prior when he had anEF of 54%.A copy ofthe echo was faxed toDr Amanda's office and a copy given to his . Hehad a lactic acidosis that resolved with a level of 1.5 on 09/05. He worked with therapy and progressed from inpatient to home health. He will dc on 09/06. Fup will be with NS and he f[place] [facility] [place] from the left occipital scalp lac. He can either go to the ED that placed them or a remover was given to his for PCP use. A discussion was held with his PCP, Dr Amandaand he has no known coagulopathy and Coumadin will be held. He was noted to have episodic urinaryretention requiring straight catheterization for amounts of urine 450 - 550 while unaware of urinary retention. A Chaparro catheter was placed and his home Urology office Dr Bert Lau, was contacted and informed of a Chaparro in place and startup of Flomax alont with Finasteride. The PAC there requested that the Chaparro remain for 2 weeks and they would contact his to arrange follow up for the catheter. He was ready for discharge to home on 09/07/23. A UA taken with Chaparro insertion resulted with rbcs, glucose, protein, and, mucus. No wbcs or bacteria. Exam on Discharge: Vitals & Measurements: T:36.0C TMIN:35.3C TMAX:36.2C HR:89(Monitored) RR:18 BP:132/83 SpO2:99% Oxygen Therapy:Room air WT:77.4kg EXAM AT DISCHARGE: General:_ Awake. NAD. HEENT:_ mucus membranes moist Heart:_ Reg w/o M at this time. Chest:_ CTA ant and lat. Abdomen:_ Soft NT NG NR Extremity:_ No edema Neuro:_ Awake Ox3 but could not name the pres, "that party min who was branch service specialist." FC's with all 4. Vocal responses do have a slight delay -- unchanged from yesterday. Discharge Medications: 1.DULoxetine (Cymbalta 60 mg oral delayed release capsule) 60 mg (1 cap) by mouth once daily. 2.Atorvastatin (atorvastatin 40 mg oral tablet) 40 mg (1 tab) by mouth once daily. 3.Amitriptyline See Instructions . 25mg - takes 0.5 tab in the am & 1 tab at hs. 4.Polyethylene glycol 3350 (MiraLax oral powder for reconstitution) 17 g by mouth once daily, as needed for constipation. 5.Acetaminophen (Tylenol Extra Strength 500 mg oral tablet) 500 mg (1 tab) by mouth as needed for pain. 6.Cinacalcet (Sensipar 30 mg oral tablet) 30 mg (1 tab) by mouth once daily. For: Hyperparathyroidism. 7.MetFORMIN (metFORMIN 1000 mg oral tablet) . TAKE 1 TABLET BY MOUTH TWICE DAILY WITH BREAKFAST AND WITH DINNER. 8.Finasteride (finasteride 5 mg oral tablet) 5 mg (1 tab) by mouth once daily. 9.Ferrous sulfate See Instructions . takes daily/ unsure of dose. 10.Ketoconazole topical (ketoconazole 2% topical shampoo) . APPLY TO SCALP AND EYEBROWS DAILY- LATHER, WAIT 5 MINUTES, THEN RINSE. 11.Triamcinolone topical (triamcinolone 0.1% topical cream) . APPLY TO RASH ON ABDOMEN TWICEDAILY NEEDED. 12.Hydrocortisone topical (hydrocortisone 2.5% topical cream) . APPLY TO EYEBROWS TWICE DAILY FOR 3-5 DAYS AT A TIME NEEDED FOR FLARES. 13.Tamsulosin (tamsulosin 0.4 mg oral capsule) 0.4 mg (1 cap) by mouth once daily. 14.LevETIRAcetam (Keppra 500 mg oral tablet) 500 mg (1 tab) by mouth 2 times daily. Allergies and Sensitivities: Catssinus symptoms, swelling, problems breathing No Known Medication Allergies Tests Pending: Extra Green (Kelford Heparin) To obtain results pending at hospital discharge, call and ask for the following Physician:MD Chris,Salazar Hernandez Scheduled Appointments: Date/Time:Provider/Resource: Oct 09:30 [facility] EC CT Rm 1 Location/Instructions:1. Please arrive 20 minutes prior to your exam2. If patient is allergic to contrast/dye, a pre med needs to be prescribed unless specifically ordered WITHOUT IV CONTRAST.3. Donot eat 4 hrs. before the exam...may have clear liquids. May take medications4. You are strongly enc ouraged to drink plenty of clear liquids prior to and after the exam5. Certain CTs requiring injection may require that labs be drawn prior to the study. Although a rare occurrence, it may require you to wait for those results before the scan is completed. Date/Time:Provider/Resource: Oct 10:15 [place] Pierre Ashley Location/Instructions:[facility], [address], [address], [address], [place] [address] Other [facility]: [facility] [phone] When:In 4 days 09/11/2023 EDT Additional Information: Home Mcfp; Home OT; Home PT Discharge Services: Service: Organization: Business Address: Phone Number: Home Care Physician Services [facility] [place] [address], [place], [address] Care Instructions: INJURIES IDENTIFIED: -Left occipital scalp laceration, stapled at referring facility. -Right frontal traumatic subarachnoid hemorrhage. SECONDARY DIAGNOSES: -Lactic acidosis--resolved -Iatrogenic coagulopathyWarfarin--reversed -Hypomagnesemia -Hypophosphatemia -Urinary retention--requiring straight catheterization and Chaparro catheter placement. POST-DISCHARGE CARE INSTRUCTIONS: Tylenol 500 mg, one or two tablets every 8 hours for mild to moderate pain as needed. Please limit the total daily dose to 3000 mg. Keppra 500 mgtwice daily for the next5 days to attempt to prevent a seizure post head injury. Flomax 0.4 gm, one capsule daily for voiding. Do not restart Warfarin blood thinner Geriatrics recommends Amitriptyline once daily for 5 more days then discontinue. Take at least 10 deep breaths every hour, while awake, to help keep the lungs wide open and preventpneumonia. You are recommended to not smoke or use tobacco products. Chaparro catheter care daily---to becared for andeducated by visiting nurses.Leg bag for ambulation and larger bag for overnight. Chaparro to remain for [address] Boogie's office. WOUND CARE: You may shower/batheand cleanany abrasions/wounds with soap and water and pat dry. You may wash over the scalp kyler carefully and pat dry. DIET: Resume your regular home diabetic diet EXAM AT DISCHARGE: General:_ Awake. NAD. HEENT:_ mucus membranes moist Heart:_ Reg w/o M at this time. Chest:_ CTA ant and lat. Abdomen:_ Soft NT NG NR Extremity:_ No edema Neuro:_ Awake Ox3 but could not name the pres, "that party min who was branch service specialist." FC's with all 4. Vocal responses do have a slight delay -- unchanged from yesterday. ACTIVITY GUIDELINES: Home PT/OT is being arranged. Home VNA to also assist/educate Chaparro catheter care. - Post Head Injury Instructions Most patients (approximately 90%) who suffer a head injury recover within the first 12 weeks following injury. It is impossible to know how long your symptoms will last. Findings, or lack of, on a head CT scan are not predictive of how long recovery will take. Avoid all activity that puts you at risk for a repeat head injury within the next six (6) months.This is to prevent the so calledSecond Impact Syndrome.Examples would include climbing ladders, step stools, horseback riding, ATV/motorcycles without a helmet, contact sports, law enforcement, etc. You should not drive or operate a motorized device of any kind until cleared by a physician to do so. Symptoms that you may experience from a head injury include headache, dizziness, nausea, visual disturbances, sensitivity to lights, personality changes, short term memory loss, problems getting to sleep, problems staying asleep, problems with speech including word finding problems, and personalitychanges. The onset of any of these symptoms should cause you to cease activity and rest or take a nap. Any symptoms that are severe or unrelenting should be evaluated in the nearest Emergency Department. It is common to need a nap every day during the recovery period and this is expected. You are notallowed to drive a car or operate any devices that require mental alertness during this time. Trying to work thru symptoms by taking pain medications and pushing on will only cause both an increasein symptom severity and prolong your recovery time. If you had a laceration and have sutures/kyler in your head, you may shower and wash over these including shampoo. You can use a handheld blow dryer. You should not use hair chemicals such as color or perms until the laceration is fully healed. At follow-up appointments, you might be referred to a rehabilitation physician for evaluation in the concussion clinic which is located at the [facility]. You might also be asked to see physical or speech therapists. If Neurosurgery was involved in your care, you might need a follow-up in their clinic as well. These arenecessary appointments to your recovery. Please call the trauma office at [phone] with questions regarding the above. Helpful Hints Gradually increase activity as you are able. Elevate your head of bed at least 20 degrees. Get plenty of rest. Avoid alcohol and any recreational drugs. These may have an exaggerated effect. Simplify your life and follow a consistent daily routine. Turn off the TV/radio/other distractions when performing a task. Write things down. FOLLOW UP: Follow up with Neurosurgery in 4 weeks with a repeat brainCT scan. Please follow up with yourpersonal physicianin 1-2 weeks for hospital follow up. Follow up with [facility] in 2 weeks for scalp staple removal. Follow up with trauma surgery as needed. Follow up with Dr Wilkins in 2 weeks--[phone]. That office has committed to contacting you on your cell phone. CONTACT: Please ask forNeurosurgeryon-call if the issue is related to your headinjury. Neurosurgery scheduling number [phone] or [phone] for clinic. Call [phone] and page beeper [phone] if there are issues related to this trauma admission such as increasing pain, wound problems, fever/chills, etc. Call [phone] with general inquiries related to the care provided by the trauma surgery team. Please call [phone] or report directly to the nearest Emergency Department if there are more urgent issues. Please ask forNeurosurgeryon-call if the issue is related to your head injury. Neurosurgery scheduling number [phone] or [phone] for clinic. - If you experience chest pain or shortness of breath phone [phone] and report to the closest emergency room as this could be a sign of a heart attack or a blood clot to the lungs (pulmonary embolism). The following incidental findings were found on your trauma or emergency general surgery X-Rays andCT scans, taken at a referring facility,when Radiology at [facility] reviewed them.If Radiology had recommendations for follow-up/further investigation, these are included below. Please discuss these findings with your personal physician. You can request a copy of these films on CD-ROM by calling the Radiology film library at the referring hospital where those images were obtained. No incidental spine findings. Interpretation of CT chest/abd/pelvis pending at the time this document was created. NOTICE Department of Trauma and Acute Care Surgery To: All patients admitted to the Trauma and Acute Care Surgery Service (aka EGS). Subject: Completion of work related and insurance forms. Purpose: Please know that timely completion is our goal. Processing formstypicallyrequires 10-14, however with Covid this could take longer. Timely submission to the trauma surgery office is very important. Please verify thatYOURportion has been completed and signed prior to submission. Forms submitted without your portion completed and signed will be set aside and not returned. Please include the name of your employer and fax number. Mail forms to: Attention forms completion Department of Trauma and [facility] [address], [address] [place] [address] General Safety instructions for all trauma patients 1. Do not drive impaired. Never drive or operate machinery if you have been drinking alcohol, usingillicit drugs, or, taking prescription pain medication. 2. Wear all recommended safety equipment at your jobsite such as hard hats, goggles, welders helmets, respirators, gloves, etc. 3. Wear safety shoes when recommended. 4. Wear a safety harness when working on a roof or any elevated platform. 5. Respect posted signs such as wet floors, radiation safety, etc. 6. Wear a helmet when operating a motorcycle, bicycle, skateboard, or whenever you are participating in an activity that has a risk of head injury. 7. Wear safety goggles. 8. Wear sun block 9. Keep a copy of your medications/allergies/personal physician/and next of kin in your wallet at all times. 10. Try to avoid hunting/fishing/hiking/swimming alone. 11. Wear seatbelts. 12. Do not text while driving. 13. National Suicide Prevention Lifeline . Advance Directive:Living will I personally spent 60 minutes in discharge planning. Electronic Signature on File CC: Bert Boogie Jr, MD [address] [place] [address] * Electronically Reviewed/Signed by: Jovon Pitts PA-C, [facility] Author Signature Dt/Tm:09/07/2023 02:29 PM Physician Hearing Aid Technician [facility] [facility] [address], [place] [address] Electronically Reviewed/Signed by: Salazar Perez MD Cosigner Signature Dt/Tm: 09/08/2023 10:56 AM Division of Trauma Surgery [facility] Emergency department Summary note * MD Bennett David Anthony: JESSICA Sousa MD, Paula Gallagher: MODIFY Event Display: ED Summary Authored Date: Basic Information Time Seen: MD Bennett David Anthony 09/05/2023 01:10 Chief Complaint transfer from outside facility mechanical fall on eloquis known ICB with head lac repaired at outside facility gcs= 14 some confusion at baseline History of Present Illness Patient is a 72-year-old man with type 2 diabetes andhistory ofDVT and PE on warfarin who was in the emergency department to emergency department transfer after the patient had a fall earlier today and was evaluatedat a nearby emergency departmentwhere he was found to be afebrile, nontachycardic, and hypertensive. He wasinitially evaluated with CT scans of thehead, C-spine, chest abdomen and pelviswhich revealeda subdural and subarachnoid hemorrhagewithoutother traumatic abnormalities. Laboratory work revealeda lactic acidosis of4.1 and an INR of 1.7.He was givenIV [id number] unitsprior to transfer. Upon his arrival to the emergency department the patient is currently endorsing a headache but otherwise feelsokay. Review of Systems A 14 point review of systems was obtained and was negative except for as listed above. Physical Exam Vitals & Measurements T:37.1C HR:103(Monitored) RR:18 BP:151/103 SpO2:99% HT:172cm WT:81.100kg(Dosing) WT:81.1kg BMI:27.41 General: NAD, alert and cooperative. Appears stated age and is well nourished. Eyes: EOMI. Sclera are anicteric and conjunctiva are without injection. ENT: MMM. Oral cavity non-erythematous. Neck is supple. CV: RRR. Normal S1/S2 present. No noted edema. Lungs: No increased WOB. On RA. Abdomen: Soft, NTND. MSK: FROM, no clubbing/cyanosis. Neuro: No facial asymmetry at rest or with activation. Psych: Appropriate and cooperative. Congruent affect with mood. Good insight and judgement. Skin: Warm, dry, and intact with alaceration to the back of the headwithstaples presentand an underlying hematoma. Medical Decision Making Based on the patient's presentation as a transfer to be seen by trauma surgery, he wassent with aCD which had the images that were obtained at the previous institution. We put in for over readsof the CT scansso that our radiology team would be able to interpret the images that were provided to us. Trauma surgery was contacted upon the patient's arrival. Trauma surgery stated that they planned on putting in forthe labs that they would prefer to have completed on this patient and that they would be admitting him. Reexamination/Reevaluation 0230: Trauma surgerystated that they had seen the patient and they were in the process of admitting him at this time. Assessment/Plan Trauma Medication Reconciliation Unchanged acetaminophen (Tylenol Extra Strength 500 mg oral tablet)1 tab(s) by mouth as needed as needed for pain. alendronate (Fosamax 70 mg oral tablet)1 tab(s) by mouth Every 7 days for 84 Days. Refills: 4. [id number] - takes 0.5 tab in the am & 1 tab at hs. atorvastatin (atorvastatin 40 mg oral tablet)1 tab(s) by mouth once daily. baclofen5 Milligram by mouth 3 times daily. cinacalcet (Sensipar 30 mg oral tablet)1 tab(s) by mouth once daily for 90 Days. Refills: 5. DULoxetine (Cymbalta 60 mg oral delayed release capsule)1 cap by mouth once daily. gabapentin (gabapentin 100 mg oral capsule)1 cap by mouth 2 times daily. glimepiride4 Milligram by mouth once daily. lisinopril2.5 Milligram by mouth once daily. menthol-zinc oxide topical (Calmoseptine)PRN for skin irritation. metFORMIN (metFORMIN 1000 mg oral tablet)1 tab(s) by mouth 2 times daily. nitroglycerin (Nitrostat 0.4 mg sublingual tablet)1 tab(s) sublingually every 5 minutes as needed as needed for chest pain. ondansetron4 Milligram by mouth as needed as needed for nausea/vomiting. polyethylene glycol 3350 (MiraLax oral powder for reconstitution)17 gram by mouth once daily as needed constipation. sodium chloride nasal (Deep Sea Nasal 0.65% nasal spray)as needed as needed for dry nasal passages. tamSULOsin (tamsulosin 0.4 mg oral capsule)1 cap by mouth once daily. warfarin (warfarin 5 mg oral tablet)1 tab(s) by mouth once daily. Attestation I personally performed a history and physical exam and discussed the management plan with the resident. I independently confirmed marlye portions of the history and physical exam, and agree with theresident note which I have reviewed and edited to reflect my findings. Problem List/Past Medical History Ongoing Actinic Keratosis BCC (basal cell carcinoma of skin) Elevated cholesterol History of asthma Hodgkins lymphoma Hypercalcemia Hyperparathyroidism Hypertension Type 2 diabetes mellitus Procedure/Surgical History neck surgery| Service Date: 08/13/2018neck surgery| Service Date: 07/13/2018Shave biopsy| Service Date: 09/28/2017Excision of basal cell carcinoma| Service Date: 05/18/2015Lymph nodeArthroscopy of kneeHernia repairShave biopsy and cauterization of skin Allergies Catssinus symptoms, swelling, problems breathing No Known Medication Allergies Family History Lymphoma: Mother. Pulmonary embolism: Father. Health Status Family Member(s) Lab Results Chemistry LATEST RESULTS Na 09/05/23 02:33 141 mmol/L K 09/05/23 02:33 4.5 mmol/L Cl- 09/05/23 02:33 105 mmol/L HCO3 09/05/23 02:33 21 mmol/L Low Anion Gap 09/05/23 02:33 15 mmol/L High BUN 09/05/23 02:33 19 mg/dL Cret 09/05/23 02:33 1.03 mg/dL Estimated CrCl 09/05/23 03:36 62.12 eGFR CKD-EPI 09/05/23 02:33 77 mL/min/1.73 m2 Glu 09/05/23 02:33 200 mg/dL High Ca 09/05/23 02:33 8.2 mg/dL Low PO4 09/05/23 02:33 2.1 mg/dL Low CBC LATEST RESULTS WBC 09/05/23 02:33 9.68 K/uL Hgb 09/05/23 02:33 12.1 g/dL Low Hct 04/24/24 02:33 35.9 % Low RBC 09/05/23 02:33 3.86 M/uL Low MCV 09/05/23 02:33 93.0 fL MCHC 09/05/23 02:33 33.7 g/dL MCH 09/05/23 02:33 31.3 pg RDW 09/05/23 02:33 14.2 % Plts 09/05/23 02:33 202 K/uL MPV 09/05/23 02:33 9.8 fL Coagulation LATEST RESULTS INR 09/05/23 02:33 1.2 High PT 09/05/23 02:33 14.9 seconds High Blood Gases LATEST RESULTS Lactate 09/05/23 02:34 2.4 mmol/L High Nutrition LATEST RESULTS Alb 09/05/23 02:33 3.7 g/dL Cardiac/Lipi LATEST RESULTS Troponin T ( 5th Gen) 09/05/23 02:33 20 ng/L Troponin T ( 5th Gen) Delta 09/05/23 02:33 NOT CALCULATED Electronic Signature on File Electronically Reviewed/Signed by: Feng Bennett MD Author Signature Dt/Tm:09/05/2023 05:38 AM Resident Department of Emergency Medicine Electronically Reviewed/Signed by: Yimi Montes De Ocaigner Signature Dt/Tm: 09/06/2023 08:58 PM Department of Emergency Medicine AVA Discharge instructions * SUZE Pitts, Jovon F: PERFORM Event Display: Patient Discharge Instructions Authored Date: [id number] BALDEMAR ALARCON :1950 Visit Date:09/05/2023 Patient Discharge Instructions [facility] For medical concerns, call: . Date of Admission:09/05/2023 Date of Discharge:09/07/2023 Physician:MD Perez John S Service:Trauma Surgery Discharge Disposition: . Advance Directive:Living will Reason for Hospitalization Trauma Your Diagnoses Trauma Subdural hematoma, acute SAH (subarachnoid hemorrhage) Anticoagulated At risk for delirium Diabetes Encounter for geriatric assessment Fall at home Gait disorder Hard of hearing Polypharmacy Uses walker My Health Patient Portal: [facility] makes it easy for you to manage your health information online. My [facility] is a free service that provides you instant, secure access to your medical information anytime, anywhere. Sign in or set up your account today at [email or web address] Thank you for allowing us to assist you with your healthcare needs. If you need additional community resources, [place] can help at https://www.pa211.org. 211 can assist you in connecting with social programs based on your unique needs and locations. 211 is an anonymous search that can help you locate resources for: Food, Housing, Transportation, Goods, Education and Healthcare. Medications Patient is enrolled in Rx-to-Go Program New medications will be delivered from [facility] to patient's room at discharge: Mon-Sun from 9AM-5 PM. Medications MUST be PICKED UP at [facility] if patient is discharged Mon-Sun after 5 PM or anytime on holidays. Please note, the [facility] closes at 8 PM on and 5:30 PM on Saturdays, Sundays, and holidays. What How Much When Why Instructions Next Dose New levETIRAcetam (Keppra 500 mg oral tablet) 1 tab(s) by mouth 2 times daily Duration: 5 Days Pickup at [facility] Changed metFORMIN (metFORMIN 1000 mg oral tablet) TAKE 1 TABLET BY MOUTH TWICE DAILY WITH BREAKFAST AND WITH DINNER Changed tamsulosin (tamsulosin 0.4 mg oral capsule) 1 cap by mouth Once daily Duration: 30 Days Pickup at [facility] Unchanged acetaminophen (Tylenol Extra Strength 500 mg oral tablet) 1 tab(s) by mouth As needed for as needed for pain Unchanged amitriptyline See instructions 25mg - takes 0.5 tab in the am & 1 tab at hs The geriatrics service recommends this medication be weaned to 25 mg daily for 5 more days and stop. Unchanged atorvastatin (atorvastatin 40 mg oral tablet) 1 tab(s) by mouth Once daily Unchanged cinacalcet (Sensipar 30 mg oral tablet) 1 tab(s) by mouth Once daily Hyperparathyroidism Duration: 90 Days Unchanged DULoxetine (Cymbalta 60 mg oral delayed release capsule) 1 cap by mouth Once daily Unchanged ferrous sulfate See instructions takes daily/ unsure of dose Unchanged finasteride (finasteride 5 mg oral tablet) 1 tab(s) by mouth Once daily Unchanged hydrocortisone topical (hydrocortisone 2.5% topical cream) APPLY TO EYEBROWS TWICE DAILY FOR 3-5 DAYS AT A TIME NEEDED FOR FLARES Unchanged ketoconazole topical (ketoconazole 2% topical shampoo) APPLY TO SCALP AND EYEBROWS DAILY- LATHER, WAIT 5 MINUTES, THEN RINSE Unchanged polyethylene glycol 3350 (MiraLax oral powder for reconstitution) 17 gram by mouth Once daily as needed for constipation Unchanged triamcinolone topical (triamcinolone 0.1% topical cream) APPLY TO RASH ON ABDOMEN TWICE DAILY NEEDED Pharmacy Information [facility]: [address] [phone] What How Much When Comments Stop Taking baclofen 5 Milligram by mouth 3 times daily Stop Taking gabapentin (gabapentin 100 mg oral capsule) 1 cap by mouth 2 times daily Stop Taking glimepiride 4 Milligram by mouth Once daily Stop Taking lisinopril 2.5 Milligram by mouth Once daily Stop Taking menthol-zinc oxide topical (Calmoseptine) See instructions PRN for skin irritation Stop Taking nitroglycerin (Nitrostat 0.4 mg sublingual tablet) 1 tab(s) sublingually Every 5 minutes as needed for as needed for chest pain Stop Taking ondansetron 4 Milligram by mouth As needed for as needed for nausea/vomiting Stop Taking sodium chloride nasal (Deep Sea Nasal 0.65% nasal spray) See instructions As needed for as needed for dry nasal passages Stop Taking warfarin (warfarin 5 mg oral tablet) 1 tab(s) by mouth Once daily Allergies Catssinus symptoms, swelling, problems breathing No Known Medication Allergies What to do next Instructions From Your Doctor INJURIES IDENTIFIED: -Left occipital scalp laceration, stapled at referring facility. -Right frontal traumatic subarachnoid hemorrhage. SECONDARY DIAGNOSES: -Lactic acidosis--resolved -Iatrogenic coagulopathyWarfarin--reversed -Hypomagnesemia -Hypophosphatemia -Urinary retention--requiring straight catheterization and Chaparro catheter placement. POST-DISCHARGE CARE INSTRUCTIONS: Tylenol 500 mg, one or two tablets every 8 hours for mild to moderate pain as needed. Please limit the total daily dose to 3000 mg. Keppra 500 mgtwice daily for the next5 days to attempt to prevent a seizure post head injury. Flomax 0.4 gm, one capsule daily for voiding. Do not restart Warfarin blood thinner Geriatrics recommends Amitriptyline once daily for 5 more days then discontinue. Take at least 10 deep breaths every hour, while awake, to help keep the lungs wide open and preventpneumonia. You are recommended to not smoke or use tobacco products. Chaparro catheter care daily---to becared for andeducated by visiting nurses.Leg bag for ambulation and larger bag for overnight. Chaparro to remain for [address] Boogie's office. WOUND CARE: You may shower/batheand cleanany abrasions/wounds with soap and water and pat dry. You may wash over the scalp kyler carefully and pat dry. DIET: Resume your regular home diabetic diet EXAM AT DISCHARGE: General:_ Awake. NAD. HEENT:_ mucus membranes moist Heart:_ Reg w/o M at this time. Chest:_ CTA ant and lat. Abdomen:_ Soft NT NG NR Extremity:_ No edema Neuro:_ Awake Ox3 but could not name the pres, "that party min who was branch service specialist." FC's with all 4. Vocal responses do have a slight delay -- unchanged from yesterday. ACTIVITY GUIDELINES: Home PT/OT is being arranged. Home VNA to also assist/educate Chaparro catheter care. - Post Head Injury Instructions Most patients (approximately 90%) who suffer a head injury recover within the first 12 weeks following injury. It is impossible to know how long your symptoms will last. Findings, or lack of, on a head CT scan are not predictive of how long recovery will take. Avoid all activity that puts you at risk for a repeat head injury within the next six (6) months.This is to prevent the so calledSecond Impact Syndrome.Examples would include climbing ladders, step stools, horseback riding, ATV/motorcycles without a helmet, contact sports, law enforcement, etc. You should not drive or operate a motorized device of any kind until cleared by a physician to do so. Symptoms that you may experience from a head injury include headache, dizziness, nausea, visual disturbances, sensitivity to lights, personality changes, short term memory loss, problems getting to sleep, problems staying asleep, problems with speech including word finding problems, and personalitychanges. The onset of any of these symptoms should cause you to cease activity and rest or take a nap. Any symptoms that are severe or unrelenting should be evaluated in the nearest Emergency Department. It is common to need a nap every day during the recovery period and this is expected. You are notallowed to drive a car or operate any devices that require mental alertness during this time. Trying to work thru symptoms by taking pain medications and pushing on will only cause both an increasein symptom severity and prolong your recovery time. If you had a laceration and have sutures/kyler in your head, you may shower and wash over these including shampoo. You can use a handheld blow dryer. You should not use hair chemicals such as color or perms until the laceration is fully healed. At follow-up appointments, you might be referred to a rehabilitation physician for evaluation in the concussion clinic which is located at the [facility]. You might also be asked to see physical or speech therapists. If Neurosurgery was involved in your care, you might need a follow-up in their clinic as well. These arenecessary appointments to your recovery. Please call the trauma office at [phone] with questions regarding the above. Helpful Hints Gradually increase activity as you are able. Elevate your head of bed at least 20 degrees. Get plenty of rest. Avoid alcohol and any recreational drugs. These may have an exaggerated effect. Simplify your life and follow a consistent daily routine. Turn off the TV/radio/other distractions when performing a task. Write things down. FOLLOW UP: Follow up with Neurosurgery in 4 weeks with a repeat brainCT scan. Please follow up with yourpersonal physicianin 1-2 weeks for hospital follow up. Follow up with [facility] in 2 weeks for scalp staple removal. Follow up with trauma surgery as needed. Follow up with Dr Wilkins in 2 weeks--[phone]. That office has committed to contacting you on your cell phone. CONTACT: Please ask forNeurosurgeryon-call if the issue is related to your headinjury. Neurosurgery scheduling number [phone] or [phone] for clinic. Call [phone] and page beeper [phone] if there are issues related to this trauma admission such as increasing pain, wound problems, fever/chills, etc. Call [phone] with general inquiries related to the care provided by the trauma surgery team. Please call 911 or report directly to the nearest Emergency Department if there are more urgent issues. Please ask forNeurosurgeryon-call if the issue is related to your head injury. Neurosurgery scheduling number [phone] or [phone] for clinic. - If you experience chest pain or shortness of breath phone 911 and report to the closest emergency room as this could be a sign of a heart attack or a blood clot to the lungs (pulmonary embolism). The following incidental findings were found on your trauma or emergency general surgery X-Rays andCT scans, taken at a referring facility,when Radiology at [facility] reviewed them.If Radiology had recommendations for follow-up/further investigation, these are included below. Please discuss these findings with your personal physician. You can request a copy of these films on CD-ROM by calling the Radiology film library at the referring hospital where those images were obtained. No incidental spine findings. Interpretation of CT chest/abd/pelvis pending at the time this document was created. NOTICE Department of Trauma and Acute Care Surgery To: All patients admitted to the Trauma and Acute Care Surgery Service (aka EGS). Subject: Completion of work related and insurance forms. Purpose: Please know that timely completion is our goal. Processing formstypicallyrequires 10-14, however with Covid this could take longer. Timely submission to the trauma surgery office is very important. Please verify thatYOURportion has been completed and signed prior to submission. Forms submitted without your portion completed and signed will be set aside and not returned. Please include the name of your employer and fax number. Mail forms to: Attention forms completion Department of Trauma and EGS [facility] [address] [place] [address] General Safety instructions for all trauma patients 1. Do not drive impaired. Never drive or operate machinery if you have been drinking alcohol, usingillicit drugs, or, taking prescription pain medication. 2. Wear all recommended safety equipment at your jobsite such as hard hats, goggles, welders helmets, respirators, gloves, etc. 3. Wear safety shoes when recommended. 4. Wear a safety harness when working on a roof or any elevated platform. 5. Respect posted signs such as wet floors, radiation safety, etc. 6. Wear a helmet when operating a motorcycle, bicycle, skateboard, or whenever you are participating in an activity that has a risk of head injury. 7. Wear safety goggles. 8. Wear sun block 9. Keep a copy of your medications/allergies/personal physician/and next of kin in your wallet at all times. 10. Try to avoid hunting/fishing/hiking/swimming alone. 11. Wear seatbelts. 12. Do not text while driving. 13. National Suicide Prevention Lifeline You were offered a Hepatitis C screening test and you declined. Please follow up with your PCP. Diet Instructions diabetic diet Activity Instructions see notes below Follow-Up Appointments Scheduled Follow-Up Appointments Date/Time:Provider/Resource: Oct 09:30 [facility] [address] Rm 1 Location/Instructions:1. Please arrive 20 minutes prior to your exam2. If patient is allergic to contrast/dye, a pre med needs to be prescribed unless specifically ordered WITHOUT IV CONTRAST.3. Donot eat 4 hrs. before the exam...may have clear liquids. May take medications4. You are strongly enc ouraged to drink plenty of clear liquids prior to and after the exam5. Certain CTs requiring injection may require that labs be drawn prior to the study. Although a rare occurrence, it may require you to wait for those results before the scan is completed. Date/Time:Provider/Resource: Oct 10:15 [place] Pierre Ashley Location/Instructions:[facility], [address], [address], [address], [place] [address] You Need to Schedule the Following Appointments [facility] [phone] When:In 4 days 09/11/2023 EDT Additional Information: Home Mcfp; Home OT; Home PT The Following Services Have Been Arranged for You Service: Organization: Business Address: Phone Number: Home Care Physician Services [facility] [address], [place], [address] Tests Pending Extra Green ([place] Heparin) To obtain results pending at hospital discharge, call and ask for the following Physician:MD Chris,Salazar Hernandez Special Instructions Common Emergency Awareness Tips Substance abuse counseling, evaluation and follow up: Call your insurance company for appropriate referral service If no insurance, contact [employer] [facility]stance [facility] Information [facility] number: Call 911 immediately if: experiencing any of the warning signs and symptoms of stroke: B.E. F.A.S.T. Balance: is there trouble with walking or coordination Eyes: is there double vision or visual loss Face: Smile, do both sides of face move equally Arm: Raise arms, do both arms move equally Speech: Is speech slurred or inappropriate Time: Time is critical, call 911 immediately Heart Attack Signs Chest discomfort: Most heart attacks involve discomfort in the center of the chest and lasts more than a few minutes, or goes away and comes back. It can feel like uncomfortable pressure, squeezing, fullness or pain. Discomfort in upper body: Symptoms can include pain or discomfort in one or both arms, back, neck, jaw or stomach. Shortness of breath: With or without discomfort. Other signs: Breaking out in a cold sweat, nausea, or lightheaded. Remember, MINUTES DO MATTER. If you experience any of these heart attack warning signs, call to get immediate medical attention! Patient Care team information Care Team Personnel Name: DO Abel Ashley Rae Position: Physician Member Role: Consulting (5 day after disch/visit) Address: Address: [address] [place] [address] Name: R.E.S. Not Needed Position: Resident Care Team Related Persons Name: DIEGO ALARCON Address: home [address] [place], [place] [id number]
--- OUTSIDE RECORDS SUMMARY | 2024-01-29 20:47 | External Medical Summary ---
Author Name Unknown Address Unknown Organization K1F:[facility] - [address] [place] [address] Laboratory Report Ordering Provider Test Date Status KENDAL BURT 09/09/2023 05:21:33 Final Observation Date Value Abnormality Reference (Units ) Status BUN 09/09/2023 05:21:33 20 6-20 (mg/dL) Final Creatinine 09/09/2023 05:21:33 0.9 0.6-1.2 (mg/dL) Final Glomerular filtration rate/1.73 sq M.predicted [Volume Rate/Area] in Serum, Plasma or Blood by Creatinine-based formula (CKD-EPI) 09/09/2023 05:21:33 86 >=60 (mL/min) Final eGFR is calculated based on the CKD-EPI 2020 equation Sodium 09/09/2023 05:21:33 141 135-146 (m mol/L) Final Potassium 09/09/2023 05:21:33 4.6 3.5-5.1 (m mol/L) Final Cl 09/09/2023 05:21:33 104 98-107 (mm ol/L) Final CO2 09/09/2023 05:21:33 24 22-32 (mmo l/L) Final Anion gap 09/09/2023 05:21:33 13 7-15 (mmol /L) Final Glucose 09/09/2023 05:21:33 188 Above high normal 70 -120 (mg/dL) Final Albumin 09/09/2023 05:21:33 3.8 3.8-5.0 (g /dL) Final AST (Aspartate aminotransferase) 09/09/2023 05:21:33 47 10-50 (U/L) Fin al Alk Phos 09/09/2023 05:21:33 65 35-130 (U/ L) Final Bilirubin, Total 09/09/2023 05:21:33 0.4 <=1 .2 (mg/dL) Final Calcium 09/09/2023 05:21:33 9.8 8.4-10.2 ( mg/dL) Final Protein 09/09/2023 05:21:33 6.4 6.0-8.3 (g /dL) Final ALT (Alanine aminotransferase) 09/09/2023 05:21:33 77 Above high normal 10-50 (U/L) Final Performing Location [facility] [place] [address]
--- OUTSIDE RECORDS SUMMARY | 2024-01-29 20:47 | External Medical Summary | Summary of Care ---
Author Name Unknown Organization [facility] Address [address] [place] [address] Phone [phone] Care Team Providers Care [employer] Supervisor Name Role Phone Kaiser Amanda MD Primary Care Provider [phone] Reason for Referral * Evaluate & Treat - Unlimited Visits (Within 10 days (routine)) - Authorized Specialty Diagnoses / Procedures Referred By Fauzia t Referred To Contact Neurology Diagnoses Subdural hematoma (HCC) Lisha Kim, [address] [place] [address] Referral ID Status Reason Start Date Expiration Date Visits Requested Visits Authorized [id number] Authorized Specialty Services Required 09/11/2023 [id number] Question Answer Referral Priority Within 10 days (routine) Where should this appointment be scheduled? [facility] Is this referral being placed for insurance purposes ONLY No, patient needs appointment [facility] NEUROLOGY REFERRAL QUESTIONS Other Conditions Comments S/p subarachnoid hemorrhage, seen at [facility], family said did not have a f/u appointment. Discharge Order Reason for Visit * Reason Comments Fall * Auth/Cert Specialty Diagnoses / Procedures Referred By Fauzia t Referred To Contact [facility] [address] [place] [address] Phone: [phone] [facility] [address] [place] [address] Referral ID Status Reason Start Date Expiration Date Visits Re quested Visits Authorized [id number] Encounter Details Date Type Department Care Team (Late st Contact Info) Description 09/09/2023 5:13 AM EDT - 09/11/2023 3:11 PM EDT Emergency [address] [facility] 4th Floor [address] [place] [address] Gilma Heath DO [address] [place], [place] [id number] Pau Ashraf MD [address] [place], [place] [address] [address] Liam Paez MD [address] [place] [id number] Pt Handout (on AVS) Discharge Disposition: IP Rehab Allergies Active Allergy Reactions Criticality Noted Date Comments Cat Dander Itching 07/14/2016 documented as of this encounter (statuses as of 09/12/2023) Medications Medication Sig Dispensed Refills Start Date End Date Status OneTouch Ultra 2 w/Device KitIndications:Typ e 2 diabetes mellitus with hemoglobin A1c goal of less than 7.5% ([facility]) Testing blood sugars twice daily Dx: E11.9 1 Kit 11 06/06/19 22 Active OneTouch Delica Lancets 30GIndications:Typ e 2 diabetes mellitus with hemoglobin A1c goal of less than 7.5% ([facility]),Type 2 diabetes mellitus with polyneuropathy ([facility]) Check BS once daily E11.9 100 Each 0 06/22/19 22 Active Acetaminophen 325 MG Oral Tablet (Tylenol) Take 3 Tablets (975 mg) by mouth every 6 hours. 30 Tablet 0 04/18/20 22 Active Additional Information Patient taking differently:975 mg Oral Q6H,As needed, Reported on 12/26/2022 Docusate Sodium 100 MG Oral Capsule (Colace) Take 1 Capsule (100 mg) by mouth in the morning and 1 Capsule (100 mg) before bedtime. 10 Capsule 0 04/18/20 22 Active Polyethylene Glycol 3350 17 GM Oral Packet (Miralax) Take 1 Packet (17 g) by mouth in the morning. Do not start before April 19, 2022. 14 Each 0 04/19/20 22 Active Additional Information Patient taking differently:17 g Oral Daily(AM),As needed, Reported on 12/26/2022 Vitamin D 25 MCG (1000 UT) Oral Tablet Take 1 Tablet (1,000 Units) by mouth daily at noon. 30 Tablet 3 04/18/20 22 Active Mupirocin 2 % External Ointment (Bactroban) Apply topically to affected area 3 times a day. Apply to biopsy site on left shoulder twice daily as needed 22 g 1 07/27/19 23 Active Mupirocin 2 % External Ointment (Bactroban) Apply to biopsy site on left shoulder twice daily 22 g 1 07/27/19 23 Active Triamcinolone Acetonide 0.1 % External Cream (Aristocort) Apply to rash on abdomen twice daily as needed 80 g 5 10/20/19 23 Active Cinacalcet HCl 30 MG Oral Tablet (Sensipar)Indicati ons:Hypercalcemia Take 1 tablet by mouth once daily 90 Tablet 3 12/22/19 23 Active Iron 325 (65 Fe) MG Oral Tablet Take 1 Tablet by mouth every evening. 0 09/13/19 23 Active glipiZIDE ER 10 MG [...] morning. 90 Capsule 3 12/27/19 23 Active Amitriptyline HCl 25 MG Oral Tablet (Elavil)Indication s:Depression with anxiety,Type 2 diabetes mellitus with polyneuropathy (HCC) Take 1 Tablet by mouth in the morning and 1 Tablet before bedtime. 60 Tablet 6 12/29/19 23 Active Hydrocortisone 2.5 % External Cream Apply to eyebrows twice daily for 3-5 days at a time as needed for flares 60 g 2 01/20/20 23 Active Ketoconazole 2 % External Cream Apply to eyebrows twice daily 30 g 1 01/20/20 23 Active Finasteride 5 MG Oral Tablet (Proscar) Take 1 Tablet by mouth in the morning. 90 Tablet 3 01/24/20 23 Active Ketoconazole 2 % External Shampoo (Nizoral) APPLY TO SCALP AND EYEBROWS DAILY- LATHER, WAIT 5 MINUTES, THEN RINSE 120 mL 0 07/06/19 24 Active OneTouch Verio In Vitro Strip (Glucose Blood)Indications: Type 2 diabetes mellitus with polyneuropathy ([facility]),Type 2 diabetes mellitus with hemoglobin A1c goal of less than 7.5% ([facility]) USE STRIP TO CHECK GLUCOSE ONCE DAILY 100 Strip 3 07/16/19 24 Active metFORMIN HCl 1000 MG Oral Tablet (Glucophage) TAKE 1 TABLET BY MOUTH TWICE A DAY WITH BREAKFAST AND DINNER 180 Tablet 1 07/21/19 24 Active Nitroglycerin 0.4 MG Sublingual Tablet Sublingual (Nitrostat)Indicat ions:Stable angina ([facility]) Place 1 Tablet under the tongue every 5 minutes as needed for Pain, Chest. 25 Tablet 0 07/26/19 24 Active Omeprazole 20 MG Oral [...] morning. 90 Tablet 3 08/14/19 24 Active levETIRAcetam 500 MG Oral Tablet (Keppra) Take 1 Tablet by mouth in the morning and 1 Tablet before bedtime. 0 09/11/19 24 Active Tamsulosin HCl 0.4 MG Oral Capsule (Flomax) Take 1 Capsule by mouth in the morning. Do not start before September 12, 2023. 0 09/12/19 24 Active Warfarin Sodium 5 MG Oral Tablet (Coumadin) Take 1-2 Tablets (5-10 mg) by mouth in the morning. Or as directed by anticoagulation clinic. 180 Tablet 3 04/18/20 22 024 Discontinued Tamsulosin HCl 0.4 MG Oral Capsule (Flomax) Take 1 Capsule by mouth in the morning. 30 Capsule 0 09/12/19 24 024 Discontinued levETIRAcetam 500 MG Oral Tablet (Keppra) Take 1 Tablet by mouth in the morning and 1 Tablet before bedtime. Do all this for 10 days. 20 Tablet 0 09/11/19 24 024 Discontinued documented as of this encounter [...] mRNA, LNP-s, No Pre serve, 2-Dose Series (CaseStack) 04/23/2021,08/09/2020,07/12/2020 Covid-19, Mrna, Lnp-s, Pf, B ivalent, [...] Sign Reading Time Taken Comments Blood Pressure 124/78 09/11/2023 7:11 AM EDT Pulse 82 09/11/2023 7:11 AM EDT Temperature 36.5 C (97.7 F) 09/11/2023 7:11 AM ED T Respiratory Rate 16 09/11/2023 7:11 AM EDT Oxygen Saturation 97% 09/11/2023 7:11 AM EDT Inhaled Oxygen Concentration - - Weight 78.8 kg (173 lb 11.6 oz) 09/11/2023 5:46 AM EDT Height 172.7 cm (5' 8") 09/09/2023 8:35 AM EDT Body Mass Index 26.41 09/09/2023 8:35 AM EDT documented in this [...] No 09/09/2023 documented as of this encounter Discharge Summaries * Lisha Kim, DO - 09/11/2023 6:49 AM EDT Images from the original note were not included. [address] [address] Admission Date: 09/09/2023 Discharge Date: 09/11/2023 RECOMMENDED TO DO FOR NEXT PROVIDER(S): F/u CT brain in 2-3 weeks Outpatient Neurology referral placed Continue to hold full anticoagulation, ASA, NSAIDs & antiplatelet medications until the f/u CT is complete Stat CT for any acute neurological decline Continue Keppra for 7-14 days for seizure prophylaxis after a traumatic brain injury REASON(S) FOR MEDICATION CHANGE(S): As above DISPOSITION ON DISCHARGE: rehab: [facility] Active Hospital Problems Diagnosis *Principal Diagnosis - Ambulatory dysfunction Subdural hematoma (HCC) Fall Generalized weakness History of DVT (deep vein thrombosis) History of pulmonary embolism Hyperlipidemia with target LDL less than 100 BPH without obstruction/lower urinary tract symptoms Type 2 diabetes mellitus with polyneuropathy (HCC) Resolved Hospital Problems No resolved problems to display. 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 Recently inpatient [facility] 09/04-09/07/23 s/p fall with subdural and subarachnoid hemorrhage. Juarez placed and intact. Several meds d/c at discharge including baclofen, gabapentin, glimepiride, lisinopril and warfarin. Since home, reports pt getting weaker. He can typically ambulate with walker, has lift chair. Today, when trying to transfer from lift chair to w/c, his legs gave out. She was able to assist him to thefloor. Pt with chronic BUE weakness and intermittent low back pain. Currently pt denies any pain, he adache, dizziness, CP, shortness of breath, N/V/D. Non-smoker and occasional alcohol use. Pt/ requesting rehab placement. In ED, labs unremarkable. CT of head showed small R frontal subarachnoid hemorrhage unchanged from 09/04/23, no acute changes. CT cervical spine, C/A/P without acute findings. Admission requested for further monitoring and rehab placement. Physical Exam Most Recent Vital Signs: BP: 155 mmHg/89 mmHg (09/09/23 0805) Pulse: 86 (09/09/23 0805) Temp: 36.39 C (09/09/23 0515) Temp Summary: Temp Min: 36.4 C (97.5 F) Max: 36.4 C (97.5 F) SpO2: 97 % (09/09/23 0805) O2 flow rate: Supplemental O2 Delivery: Physical Exam Vitals and nursing note reviewed. Constitutional: General: He is not in acute distress. Appearance: He is not toxic-appearing. HENT: Head: Comments: Laceration kyler intact. Eyes: Conjunctiva/sclera: Conjunctivae normal. Cardiovascular: Rate and Rhythm: Normal rate and regular rhythm. Heart sounds: No murmur heard. Pulmonary: Effort: Pulmonary effort is normal. No respiratory distress. Breath sounds: Normal breath sounds. Abdominal: General: Bowel sounds are normal. Palpations: Abdomen is soft. Musculoskeletal: Right lower leg: No edema. Left lower leg: No edema. Comments: Able to move legs, equal strength Skin: General: Skin is warm and dry. Coloration: Skin is not pale. Neurological: General: No focal deficit present. Mental Status: He is alert and oriented to person, place, and time. Psychiatric: Mood and Affect: Mood normal. Behavior: Behavior normal. HOSPITAL COURSE (focused): Patient admitted to the floor for observation. Labs and imaging in the ER were unremarkable with nochanges to non-contrast head CT subarachnoid hemorrhage. PT/OT and care management consulted for rehabilitation status outpatient. He was accepted to [facility] for 09/11/23. Per neurology- Recommend continue Keppra for at least 7-14 days, continue to hold full anticoagulation, ASA, NSAIDs & antip latelet medications. Recommend follow up CT brain 2-3 weeks after initial hemorrhage. Stat CT brainfor any acute neurological decline Patient is hemodynamically stable and cleared for discharge. Operations & Procedures: none Complications: none significant Significant Lab and Imaging Results: Results for orders placed or performed during the hospital encounter of 09/09/23 COMPREHENSIVE METABOLIC PANEL Result Value Ref Range BUN 20 6 - 20 mg/dL Creatinine 0.9 0.6 - 1.2 mg/dL Estimated Glomerular Filtration Rate 86 >=60 mL/min Sodium 141 135 - 146 mmol/L Potassium 4.6 3.5 - 5.1 mmol/L Chloride 104 98 - 107 mmol/L CO2 24 22 - 32 mmol/L Anion Gap 13 7 - 15 mmol/L Glucose 188 (H) 70 - 120 mg/dL Albumin 3.8 3.8 - 5.0 g/dL AST 47 10 - 50 U/L Alkaline Phosphatase 65 35 - 130 U/L Bilirubin, Total 0.4 <=1.2 mg/dL Calcium 9.8 8.4 - 10.2 mg/dL Protein 6.4 6.0 - 8.3 g/dL ALT 77 (H) 10 - 50 U/L TOXICOLOGY, URINE SCREEN W/ CONFIRMATION Result Value Ref Range Amphetamines Screen, U Negative Negative Benzodiazepines Screen, U Negative Negative Cannabinoids Screen, U Negative Negative Cocaine Metabolite Screen, U Negative Negative Fentanyl Screen, U Negative Negative Hydrocodone Screen, U Negative Negative Methadone Metabolite Screen, U Negative Negative Morphine/Codeine Screen, U Negative Negative Oxycodone Screen, U Negative Negative ETHANOL, MEDICAL Result Value Ref Range ETHANOL, MEDICAL Negative Negative LACTATE,WHOLE BLOOD Result Value Ref Range Lactate, Whole Blood 1.7 0.4 - 2.0 mmol/L PT INR Result Value Ref Range Prothrombin Time 14.0 11.6 - 15.2 seconds INR 1.1 0.8 - 1.2 URINALYSIS, REFLEX TO MICROSCOPIC Result Value Ref Range Color, Urine Yellow Light Yellow, Yellow, Dark Yellow Clarity, Urine Clear Clear Glucose, Urine Negative Negative mg/dL Bilirubin, Urine Negative Negative Ketone, Urine Negative Negative mg/dL Specific Moran, Urine 1.022 1.003 - 1.030 Blood, Urine Large (A) Negative pH, Urine 5.5 5.0 - 7.5 Units Protein, Urine Trace (A) Negative mg/dL Urobilinogen, Urine 1.0 0.2, 1.0 mg/dL Nitrite, Urine Negative Negative Esterase, Urine Negative Negative TYPE AND SCREEN Result Value Ref Range ABO O Rh Positive Red Blood Cell Antibody Screen Negative Specimen Expiration Date 09/12/2023 23:59 CBC Result Value Ref Range WBC 7.27 4.00 - 10.80 K/uL RBC 3.77 4.50 - 5.25 M/uL HGB 11.6 (L) 14.0 - 16.8 g/dL HCT 35.6 (L) 40.0 - 48.4 % MCV 94.4 82.0 - 99.5 fL MCH 30.8 27.0 - 34.0 pg MCHC 32.6 32.0 - 36.0 g/dL RDW 14.2 11.5 - 15.5 % PLT 192 140 - 400 K/uL MPV 9.0 6.6 - 11.1 fL nRBCs 0 <=0 /100 WBCs DIFFERENTIAL, AUTOMATED Result Value Ref Range WBC 7.27 4.00 - 10.80 K/uL Neutrophils % 50.0 40.0 - 75.0 % Lymphocytes % 33.7 18.0 - 42.0 % Monocytes % 8.3 1.0 - 11.0 % Eosinophils % 6.9 (H) 0.0 - 6.0 % Basophils % 0.7 0.0 - 2.0 % Immature Granulocytes % 0.4 0.0 - 2.0 % Absolute Neutrophils 3.64 1.80 - 7.70 K/uL Absolute Lymphocytes 2.45 1.00 - 4.80 K/ul Absolute Monocytes 0.60 0.00 - 1.10 K/uL Absolute Eosinophils 0.50 0.00 - 0.70 K/uL Absolute Basophils 0.05 0.00 - 0.20 K/uL Absolute Immature Granulocytes 0.03 0.00 - 0.20 K/uL MICROSCOPIC EXAM, URINE Result Value Ref Range RBC, Urine 30-49 (A) 0 - 2 /HPF WBC, Urine 0-2 0 - 2 /HPF Bacteria, Urine 101-150 (A) 0 - 25 /HPF SARS-COV-2 (COVID-19), NAAT Result Value Ref Range SARS-CoV-2 (COVID-19) Result Negative Negative BASIC METABOLIC PANEL Result Value Ref Range BUN 18 6 - 20 mg/dL Creatinine 0.9 0.6 - 1.2 mg/dL Estimated Glomerular Filtration Rate >90 >=60 mL/min Sodium 143 135 - 146 mmol/L Potassium 3.9 3.5 - 5.1 mmol/L Chloride 107 98 - 107 mmol/L CO2 25 22 - 32 mmol/L Anion Gap 11 7 - 15 mmol/L Glucose 163 (H) 70 - 120 mg/dL Calcium 9.2 8.4 - 10.2 mg/dL CBC Result Value Ref Range WBC 5.89 4.00 - 10.80 K/uL RBC 3.50 4.50 - 5.25 M/uL HGB 10.8 (L) 14.0 - 16.8 g/dL HCT 32.9 (L) 40.0 - 48.4 % MCV 94.0 82.0 - 99.5 fL MCH 30.9 27.0 - 34.0 pg MCHC 32.8 32.0 - 36.0 g/dL RDW 14.5 11.5 - 15.5 % PLT 170 140 - 400 K/uL MPV 8.9 6.6 - 11.1 fL nRBCs 0 <=0 /100 WBCs MAGNESIUM Result Value Ref Range Magnesium 1.4 (L) 1.5 - 2.6 mg/dL PHOSPHORUS Result Value Ref Range Phosphorus 3.4 2.5 - 4.8 mg/dL HEPATIC FUNCTION PANEL Result Value Ref Range Albumin 3.5 (L) 3.8 - 5.0 g/dL AST 22 10 - 50 U/L Alkaline Phosphatase 58 35 - 130 U/L ALT 52 (H) 10 - 50 U/L Bilirubin, Total 0.4 <=1.2 mg/dL Bilirubin, Direct <0.2 0.0 - 0.3 mg/dL Protein 5.9 (L) 6.0 - 8.3 g/dL CBC Result Value Ref Range WBC 6.40 4.00 - 10.80 K/uL RBC 3.51 4.50 - 5.25 M/uL HGB 10.7 (L) 14.0 - 16.8 g/dL HCT 33.5 (L) 40.0 - 48.4 % MCV 95.4 82.0 - 99.5 fL MCH 30.5 27.0 - 34.0 pg MCHC 31.9 32.0 - 36.0 g/dL RDW 14.3 11.5 - 15.5 % PLT 174 140 - 400 K/uL MPV 9.3 6.6 - 11.1 fL nRBCs 0 <=0 /100 WBCs COMPREHENSIVE METABOLIC PANEL Result Value Ref Range BUN 19 6 - 20 mg/dL Creatinine 1.1 0.6 - 1.2 mg/dL Estimated Glomerular Filtration Rate 71 >=60 mL/min Sodium 139 135 - 146 mmol/L Potassium 4.0 3.5 - 5.1 mmol/L Chloride 101 98 - 107 mmol/L CO2 26 22 - 32 mmol/L Anion Gap 12 7 - 15 mmol/L Glucose 171 (H) 70 - 120 mg/dL Albumin 3.5 (L) 3.8 - 5.0 g/dL AST 12 10 - 50 U/L Alkaline Phosphatase 60 35 - 130 U/L Bilirubin, Total 0.5 <=1.2 mg/dL Calcium 9.5 8.4 - 10.2 mg/dL Protein 6.0 6.0 - 8.3 g/dL ALT 38 10 - 50 U/L GLUCOSE METER, POINT OF CARE Result Value Ref Range Glucose Meter 282 (H) 70 - 120 mg/dL GLUCOSE METER, POINT OF CARE Result Value Ref Range Glucose Meter 222 (H) 70 - 120 mg/dL GLUCOSE METER, POINT OF CARE Result Value Ref Range Glucose Meter 198 (H) 70 - 120 mg/dL GLUCOSE METER, POINT OF CARE Result Value Ref Range Glucose Meter 140 (H) 70 - 120 mg/dL GLUCOSE METER, POINT OF CARE Result Value Ref Range Glucose Meter 303 (H) 70 - 120 mg/dL GLUCOSE METER, POINT OF CARE Result Value Ref Range Glucose Meter 238 (H) 70 - 120 mg/dL GLUCOSE METER, POINT OF CARE Result Value Ref Range Glucose Meter 196 (H) 70 - 120 mg/dL GLUCOSE METER, POINT OF CARE Result Value Ref Range Glucose Meter 164 (H) 70 - 120 mg/dL GLUCOSE METER, POINT OF CARE Result Value Ref Range Glucose Meter 211 (H) 70 - 120 mg/dL CT HEAD/BRAIN WO CONTRAST Final Result PROCEDURE INFORMATION: Exam: CT Head Without Contrast Exam date and time: 09/09/2023 5:28 AM Age: 72 years old Clinical indication: Injury or trauma; Bleeding/hemorrhage; Patient HX: Trauma alert; PT. Fell transferring out of bed. PT. Had recent fall 9 days ago that resulted in head bleed. PT. Unable to lay head/neck back due to cervical hardware; Best positioning possible; Additional info: Significant trauma with possible severe neurologic injury or head pain TECHNIQUE: Imaging protocol: Computed tomography of the head without contrast. Radiation optimization: All CT scans at this facility use at least one of these dose optimization techniques: automated exposure control; mA and/or kV adjustment per patient size (includes targeted exams where dose is matched to clinical indication); or iterative reconstruction. 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 No acute intracranial hemorrhage. No mass effect or midline shift. No acute extraaxial fluid collection. Generalized brain atrophy and microvascular ischemic changes in bilateral white matter. Cerebral ventricles: No ventriculomegaly. Paranasal sinuses: Partially visualized sinuses are unremarkable. No fluid levels. Mastoid air cells: Visualized mastoid air cells are well aerated. Orbital cavities: Previous bilateral cataract surgery. Bones/joints: Unremarkable. No acute calvarial fracture. Soft tissues: Unremarkable. Vasculature: Atherosclerotic calcifications in the intracranial segments of bilateral internal carotid arteries and bilateral vertebral arteries. IMPRESSION IMPRESSION: 1. A small right frontal subarachnoid hemorrhage is unchanged compared to previous CT dated 09/04/2023. 2. 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 3. Generalized brain atrophy and microvascular ischemic changes in bilateral white matter. THIS DOCUMENT HAS BEEN ELECTRONICALLY SIGNED BY DAYNA EVANS MD CT C SPINE WO CONTRAST Final Result PROCEDURE INFORMATION: Exam: CT Cervical Spine Without Contrast Exam date and time: 09/09/2023 5:28 AM Age: 72 years old Clinical indication: Injury or trauma; Concussion/head injury; Patient HX: Trauma alert; PT. Fell transferring out of bed. PT. Had recent fall 9 days ago that resulted in head bleed. PT. Unable to lay head/neck back due to cervical hardware; Best positioning possible; Additional info: Significant trauma with possible severe neurologic injury or neck pain TECHNIQUE: Imaging protocol: Computed tomography of the cervical spine without contrast. Radiation optimization: All CT scans at this facility use at least one of these dose optimization techniques: automated exposure control; mA and/or kV adjustment per patient size (includes targeted exams where dose is matched to clinical indication); or iterative reconstruction. COMPARISON: CT C SPINE WO CONTRAST 09/04/2023 9:52 PM FINDINGS: Bones/joints: No acute cervical spine fracture. Posterior C2-T2 cervical spine fusion in good alignment, without evidence of hardware failure. Lungs: Lung apices are normal. Soft tissues: Unremarkable. IMPRESSION IMPRESSION: 1. No acute findings. 2. Posterior C2-T2 cervical spine fusion in good alignment, without evidence of hardware failure. THIS DOCUMENT HAS BEEN ELECTRONICALLY SIGNED BY DAYNA EVANS MD CT CHEST W CONTRAST Final Result PROCEDURE INFORMATION: Exam: CT Chest With Contrast; Diagnostic Exam date and time: 09/09/2023 5:33 AM Age: 72 years old Clinical indication: Injury or trauma; Patient HX: Trauma alert; PT. Fell transferring out of bed. PT. Had recent fall 9 days ago that resulted in head bleed. PT. Unable to lay head/neck back due to cervical hardware; Best positioning possible; Additional info: Significant trauma with possible severe intraabdominal injury or abdominal pain TECHNIQUE: Imaging protocol: Diagnostic computed tomography of the chest with contrast. Radiation optimization: All CT scans at this facility use at least one of these dose optimization techniques: automated exposure control; mA and/or kV adjustment per patient size (includes targeted exams where dose is matched to clinical indication); or iterative reconstruction. Contrast material: ISOVUE 370; Contrast volume: 100 ml; Contrast route: INTRAVENOUS (IV); COMPARISON: CT ABD/PELVIS W IV CONTRAST - WO ORAL CONTRAST 09/04/2023 9:52 PM FINDINGS: Lungs: Unremarkable. No consolidation. No masses. Pleural spaces: Unremarkable. No pneumothorax. No pleural effusion. Heart: Unremarkable. No cardiomegaly. No pericardial effusion. Coronary arteries: Coronary artery calcifications. Lymph nodes: Unremarkable. No enlarged lymph nodes. Vasculature: Unremarkable. No aortic aneurysm. Bones/joints: C7-T2 posterior fusion without evidence of hardware failure. No acute fractures. Soft tissues: Unremarkable. IMPRESSION IMPRESSION: No acute findings. PROCEDURE INFORMATION: Exam: CT Abdomen And Pelvis With Contrast Exam date and time: 09/09/2023 5:33 AM Age: 72 years old Clinical indication: Injury or trauma; Patient HX: Trauma alert; PT. Fell transferring out of bed. PT. Had recent fall 9 days ago that resulted in head bleed. PT. Unable to lay head/neck back due to cervical hardware; Best positioning possible; Additional info: Significant trauma with possible severe intraabdominal injury or abdominal pain TECHNIQUE: Imaging protocol: Computed tomography of the abdomen and pelvis with contrast. 3D rendering (Not supervised by radiologist): MIP and/or 3D reconstructed images were created by the technologist. Radiation optimization: All CT scans at this facility use at least one of these dose optimization techniques: automated exposure control; mA and/or kV adjustment per patient size (includes targeted exams where dose is matched to clinical indication); or iterative reconstruction. Contrast material: ISOVUE 370; Contrast volume: 100 ml; Contrast route: INTRAVENOUS (IV); COMPARISON: CT ABD/PELVIS W IV CONTRAST - WO ORAL CONTRAST 09/04/2023 9:52 PM FINDINGS: Liver: Normal. No liver mass. Gallbladder and bile ducts: No gallstones, gallbladder wall thickening or pericholecystic fluid. Common bile duct is not dilated. Pancreas: Unremarkable. No significant pancreatic duct dilation. Spleen: Normal. No splenomegaly. Adrenal glands: Normal. No adrenal mass. Kidneys and ureters: A 3 cm simple appearing cyst in the midportion of the left kidney. A 1.2 cm simple appearing cyst in the lower pole of the right kidney. A 6 mm nonobstructing calculus in the lower pole of the left kidney. A 1.3 cm nonobstructing calculus in the pelvis of the right kidney. No follow up imaging is recommended for the renal cysts. Stomach and bowel: Mild descending colon diverticulosis and moderate sigmoid colon diverticulosis without evidence of diverticulitis. No bowel obstruction, ileus, or colitis. Appendix: No CT evidence of appendicitis. Intraperitoneal space: No free air or fluid in the abdomen. No abnormal fluid collection. Vasculature: Unremarkable. No abdominal aortic aneurysm. Lymph nodes: No abdominal lymphadenopathy. Urinary bladder: Juarez catheter in the bladder. Reproductive: Unremarkable as visualized. Bones/joints: No acute fracture. Previous right hip total arthroplasty in good alignment. Without evidence of hardware failure. Soft tissues: Unremarkable. IMPRESSION: 1. No acute findings. 2. A 3 cm simple appearing cyst in the midportion of the left kidney. A 1.2 cm simple appearing cyst in the lower pole of the right kidney. A 6 mm nonobstructing calculus in the lower pole of the left kidney. A 1.3 cm nonobstructing calculus in the pelvis of the right kidney. No follow up imaging is recommended for the renal cysts. 3. Mild descending colon diverticulosis and moderate sigmoid colon diverticulosis without evidence of diverticulitis. COMMENTS: Consistent with the [employer]'s Incidental Findings Committee white paper (J Am Micah Radiol 2018): Any incidental renal lesion less than 1 cm or classified as too small to characterize, or any incidental cystic renal lesion characterized as simple-appearing, is likely benign. No follow-up imaging is recommended for these lesions per consensus recommendations based on imaging criteria. THIS DOCUMENT HAS BEEN ELECTRONICALLY SIGNED BY DAYNA EVANS MD CT ABD/PELVIS W IV CONTRAST - WO ORAL CONTRAST Final Result PROCEDURE INFORMATION: Exam: CT Chest With Contrast; Diagnostic Exam date and time: 09/09/2023 5:33 AM Age: 72 years old Clinical indication: Injury or trauma; Patient HX: Trauma alert; PT. Fell transferring out of bed. PT. Had recent fall 9 days ago that resulted in head bleed. PT. Unable to lay head/neck back due to cervical hardware; Best positioning possible; Additional info: Significant trauma with possible severe intraabdominal injury or abdominal pain TECHNIQUE: Imaging protocol: Diagnostic computed tomography of the chest with contrast. Radiation optimization: All CT scans at this facility use at least one of these dose optimization techniques: automated exposure control; mA and/or kV adjustment per patient size (includes targeted exams where dose is matched to clinical indication); or iterative reconstruction. Contrast material: ISOVUE 370; Contrast volume: 100 ml; Contrast route: INTRAVENOUS (IV); COMPARISON: CT ABD/PELVIS W IV CONTRAST - WO ORAL CONTRAST 09/04/2023 9:52 PM FINDINGS: Lungs: Unremarkable. No consolidation. No masses. Pleural spaces: Unremarkable. No pneumothorax. No pleural effusion. Heart: Unremarkable. No cardiomegaly. No pericardial effusion. Coronary arteries: Coronary artery calcifications. Lymph nodes: Unremarkable. No enlarged lymph nodes. Vasculature: Unremarkable. No aortic aneurysm. Bones/joints: C7-T2 posterior fusion without evidence of hardware failure. No acute fractures. Soft tissues: Unremarkable. IMPRESSION IMPRESSION: No acute findings. PROCEDURE INFORMATION: Exam: CT Abdomen And Pelvis With Contrast Exam date and time: 09/09/2023 5:33 AM Age: 72 years old Clinical indication: Injury or trauma; Patient HX: Trauma alert; PT. Fell transferring out of bed. PT. Had recent fall 9 days ago that resulted in head bleed. PT. Unable to lay head/neck back due to cervical hardware; Best positioning possible; Additional info: Significant trauma with possible severe intraabdominal injury or abdominal pain TECHNIQUE: Imaging protocol: Computed tomography of the abdomen and pelvis with contrast. 3D rendering (Not supervised by radiologist): MIP and/or 3D reconstructed images were created by the technologist. Radiation optimization: All CT scans at this facility use at least one of these dose optimization techniques: automated exposure control; mA and/or kV adjustment per patient size (includes targeted exams where dose is matched to clinical indication); or iterative reconstruction. Contrast material: ISOVUE 370; Contrast volume: 100 ml; Contrast route: INTRAVENOUS (IV); COMPARISON: CT ABD/PELVIS W IV CONTRAST - WO ORAL CONTRAST 09/04/2023 9:52 PM FINDINGS: Liver: Normal. No liver mass. Gallbladder and bile ducts: No gallstones, gallbladder wall thickening or pericholecystic fluid. Common bile duct is not dilated. Pancreas: Unremarkable. No significant pancreatic duct dilation. Spleen: Normal. No splenomegaly. Adrenal glands: Normal. No adrenal mass. Kidneys and ureters: A 3 cm simple appearing cyst in the midportion of the left kidney. A 1.2 cm simple appearing cyst in the lower pole of the right kidney. A 6 mm nonobstructing calculus in the lower pole of the left kidney. A 1.3 cm nonobstructing calculus in the pelvis of the right kidney. No follow up imaging is recommended for the renal cysts. Stomach and bowel: Mild descending colon diverticulosis and moderate sigmoid colon diverticulosis without evidence of diverticulitis. No bowel obstruction, ileus, or colitis. Appendix: No CT evidence of appendicitis. Intraperitoneal space: No free air or fluid in the abdomen. No abnormal fluid collection. Vasculature: Unremarkable. No abdominal aortic aneurysm. Lymph nodes: No abdominal lymphadenopathy. Urinary bladder: Juarez catheter in the bladder. Reproductive: Unremarkable as visualized. Bones/joints: No acute fracture. Previous right hip total arthroplasty in good alignment. Without evidence of hardware failure. Soft tissues: Unremarkable. IMPRESSION: 1. No acute findings. 2. A 3 cm simple appearing cyst in the midportion of the left kidney. A 1.2 cm simple appearing cyst in the lower pole of the right kidney. A 6 mm nonobstructing calculus in the lower pole of the left kidney. A 1.3 cm nonobstructing calculus in the pelvis of the right kidney. No follow up imaging is recommended for the renal cysts. 3. Mild descending colon diverticulosis and moderate sigmoid colon diverticulosis without evidence of diverticulitis. COMMENTS: Consistent with the [employer]'s Incidental Findings Committee white paper (J Am Micah Radiol 2018): Any incidental renal lesion less than 1 cm or classified as too small to characterize, or any incidental cystic renal lesion characterized as simple-appearing, is likely benign. No follow-up imaging is recommended for these lesions per consensus recommendations based on imaging criteria. THIS DOCUMENT HAS BEEN ELECTRONICALLY SIGNED BY DAYNA EVANS MD XR CHEST 1 VIEW Final Result PROCEDURE INFORMATION: Exam: XR Chest Exam date and time: 09/09/2023 5:14 AM Age: 72 years old Clinical indication: Other: Fall; Additional info: Trauma TECHNIQUE: Imaging protocol: Radiologic exam of the chest. Views: 1 view. COMPARISON: DX XR CHEST 1 VIEW 09/04/2023 10:09 PM FINDINGS: Lungs: No consolidation or pulmonary edema. Pleural spaces: No pleural effusion. No pneumothorax. Heart/Mediastinum: Cardiomediastinal silhouette is normal in size. Bones/joints: No acute fractures. Posterior fusion in the lower cervical and upper thoracic spine. IMPRESSION IMPRESSION: No acute findings. THIS DOCUMENT HAS BEEN ELECTRONICALLY SIGNED BY DAYNA EVANS MD XR PELVIS 1 VIEW Final Result PROCEDURE INFORMATION: Exam: XR Pelvis Exam date and time: 09/09/2023 5:19 AM Age: 72 years old Clinical indication: Other: Fall; Additional info: Trauma TECHNIQUE: Imaging protocol: Radiologic exam of the pelvis. Views: 1 or 2 view. COMPARISON: DX XR PELVIS 1 VIEW 09/04/2023 10:09 PM FINDINGS: Bones/joints: Previous total right hip arthroplasty. No acute fracture or dislocation. Soft tissues: Unremarkable. IMPRESSION IMPRESSION: 1. Previous total right hip arthroplasty. 2. No acute fracture or dislocation. THIS DOCUMENT HAS BEEN ELECTRONICALLY SIGNED BY DAYNA EVANS MD Results Pending at Discharge: Lab Results Pending at Discharge: CBC Routine COMPREHENSIVE METABOLIC PANEL Routine MEDICATION UPDATES AT DISCHARGE START taking these medications INSTRUCTIONS levETIRAcetam 500 MG Tablet Commonly known as: Keppra Take 1 Tablet by mouth in the morning and 1 Tablet before bedtime. tamsulosin 0.4 MG Capsule Commonly known as: Flomax Start taking on: September 12, 2023 Take 1 Capsule by mouth in the morning. Do not start before September 12, 2023. CONTINUE taking these medications INSTRUCTIONS Acetaminophen 325 MG Tablet Commonly known as: Tylenol Notes to patient: Used to ease pain and fever. Take 3 Tablets (975 mg) by mouth every 6 hours. amitriptyline 25 MG Tablet Commonly known as: Elavil Notes to patient: Used to treat depression Take 1 Tablet by mouth in the morning and 1 Tablet before bedtime. atorvaSTATin 40 MG Tablet Commonly known as: [...] 1 Capsule by mouth in the morning. Finasteride 5 MG Tablet Commonly known as: Proscar Notes to patient: Used to treat the [...] Take 1 Tablet by mouth every evening. * Ketoconazole 2 % cream Notes to patient: Used to treat fungal infections of the skin, dandruff, and control seborrheic dermatitis Apply to eyebrows twice daily * Ketoconazole 2 % shampoo Commonly known as: Nizoral Notes to patient: Used to treat fungal infections of the skin, dandruff, and control seborrheic dermatitis APPLY TO SCALP AND EYEBROWS DAILY- LATHER, WAIT 5 MINUTES, THEN RINSE MetFORMIN 1000 MG Tablet Commonly known as: Glucophage Notes to patient: Used to lower blood sugar in patients with high blood sugar (diabetes) TAKE 1 TABLET BY MOUTH TWICE A DAY WITH BREAKFAST AND DINNER * mupirocin calcium 2 % ointment Commonly known as: Bactroban Notes to patient: Used to treat skin infections Apply topically to affected area 3 times a day. Apply to biopsy site on left shoulder twice daily as needed * mupirocin calcium 2 % ointment Commonly known as: Bactroban Notes to patient: Used to treat skin infections Apply to biopsy site on left shoulder twice daily Nitroglycerin 0.4 MG Subl Commonly known as: [...] before the first meal of the day. OneTouch Delica Lancets 30G Misc Check BS once daily E11.9 OneTouch Ultra 2 w/Device Kit Testing blood sugars twice daily Dx: E11.9 OneTouch Verio Strp Generic drug: Glucose Blood USE STRIP TO CHECK GLUCOSE ONCE DAILY Polyethylene Glycol 3350 packet Commonly known as: Miralax Notes to patient: Used to treat constipation Take 1 Packet (17 g) by mouth in the morning. Do not start before April 19, 2022. Triamcinolone Acetonide 0.1 % cream Commonly known as: Aristocort Notes to patient: Used to treat skin rashes and other skin irritations Apply to rash on abdomen twice daily as needed Vitamin D 25 MCG (1000 UT) Tabs Notes to patient: Used to treat or prevent vitamin D deficiency Take 1 Tablet (1,000 Units) by mouth daily at noon. * This list has 4 medication(s) that are the same as other medications prescribed for you. Read thedirections carefully, and ask your doctor or other care provider to review them with you. STOP taking these medications Warfarin Sodium 5 MG Tablet Commonly known as: Coumadin SCHEDULED FOLLOW-UP: Future Appointments Appt Date/Time Provider Department 09/12/2023 5:50 PM Pharmacist2, [facility] [place] 09/21/2023 9:00 AM [place], Urology [facility] 9:15 AM Bert Boogie Jr., MD [facility]/21/2024 2:00 PM Sakina Jones MD Endocrinology, [place] 01/25/2024 3:30 PM Laney Hogue MD [facility] 02/25/2024 9:20 AM Kaiser Amanda MD [facility] Outpatient Follow Up Neurology Referral OP Other Information Indwelling Devices: LINES ALL Duration Urethral Catheter 7 days Vital Signs (last recorded): Most Recent Systolic BP: 124 mmHg (09/11/23 0711) Most Recent Diastolic BP: 78 mmHg (09/11/23 0711) Pulse: 82 (09/11/23710) Resp: 16 (09/11/23710) Most Recent Temperature: 36.5 C (09/11/23 07) Weight: 78.8 kg (173 lb 11.6 oz) (09/11/23 0546) SpO2: 97 % (09/11/23710) Allergies: Cat dander Activity: as tolerated Diet: age appropriate diet Code Status: Full Code Condition on Discharge: stable Isolation status: None Cognition: normal HOSPITAL CONSULTS ORDERED: ADULT PHYSICAL THERAPY CONSULT IP ADULT OCCUPATIONAL THERAPY CONSULT IP CARE MANAGEMENT CONSULT IP REFERRING PHYSICIAN: Ref: [id number]] NO STREET ADDRESS AVAILABLE None (office) None (fax) PRIMARY CARE PROVIDER: PCP: Kaiser Amanda MD [address] [facility] / [facility] [id number] (office) [phone] (fax) Note: To contact a physician responsible for this patients hospital care, please call [place] [phone]. Associated attestation - Liam Paez MD - 09/11/2023 1:20 PM EDT I saw and evaluated the patient today. I have reviewed the trainee note and agree. I spent a total of 45 minutes coordinating, documenting, and providing care for this patient excluding time spent in the performance of separately billed services. documented in this encounter Discharge Instructions * Appointments* Paulina Kelly [facility] - 09/11/2023 1:[address] Kaiser Amanda-2 weeks [phone] [facility] * Discharge Instr - AVS* Lisha Kim DO - 09/11/2023 12:18 PM EDT Discharge Date: 09/11/23 Brief summary of inpatient care: Lewis Alarcon was admitted to [facility] on 09/09/2023 with weakness and ambulatory dysfunction s/p recent SAH from home. The primary diagnosis at discharge was Ambulatory Dysfunction . Lewis Alarcon is being discharged to [facility] The Hospital Medicine physician(s) at the time of discharge included: Liam Paez MD To reach this Provider Sunday through Sunday (8:00 AM to 4:30 PM) for any questions or test results: Call [phone] For after-hours concerns: Call [phone] and have your provider paged, or the provider well control instructor for the Department of [facility] Medicine paged. Inpatient test results pending: none Operations & Procedures: none Code Status: Full Code Advance Directive Documentation: Advance Directive Does the Patient have an Advance Directive? No Diet: Previous diet Activity: As tolerated Lewis should continue the following therapies: Physical Therapy and Occupational Therapy Indwelling Urinary Bladder Catheter Care: Prevent infection. Always wash your hands before handling your catheter, bag or tubing. Cleaning your skin and tubing: Clean the skin near the catheter with soap and water. Wash your genital area from front to back. Wash the catheter tubing. Always wash the catheter in the direction away from your body. You will be told when and how to change your bag and tubing. Dont try to remove the catheter by yourself. You may shower with the catheter in place. Emptying/Changing the bag Wash your hands. Remove the stopper on the bag. Drain the bag into the toilet or a measuring container. Dont let the tip of the drainage tube touch anything, including your fingers. When the bag is empty, clean the tip of the drainage tube with an alcohol wipe. Clamp the tube. Clean the tip of the drainage tube with alcohol. Reinsert the tube into the pocket on the drainage bag/ Replace the stopper. Additional Precautions: seizure Isolation Status: None Mentation at Discharge: normal Future Studies Required: CT Head in 2-3 weeks, CBC, BMP Respiratory Support at Discharge: Resume Prior to Admission Respiratory Support PRIMARY CARE PROVIDER: PCP: Kaiser Amanda MD [address] [facility] / [place] [address] (office) [phone] (fax) Special Instructions: End date for medications including antibiotics and anticoagulants:to restart anticoagulation after f/u CT if negative; end keppra in 7-14 days if patient remains seizure free. -GET CT HEAD STAT if any neuro changes - Call your primary care physician or seek medical attention if headache, altered mental status, decline in neuro function like walking/talking/thinking/moving extremities. - Use caution when standing or walking since you are at an increased risk for falls - Do not take [id number] NSAIDs (nonsteroid anti-inflammatory medications); ie. Advil, Motrin, Ibuprofen, etc. Indwelling Urinary Bladder Catheter: Call your Urologist or Primary Care Provider right away if you have any of the following: Chills or fever above 100.4F (38C) Leakage around the catheter insertion site Increased spasms (uncontrollable twitching) in your legs, abdomen, or bladder. Occasional mild spasms are normal. Burning in the urinary tract or genital area Nausea and vomiting Aching in the lower back Cloudy or bloody (pink or red) urine, sediment or mucus in the urine, or foul- smelling urine Please have the patient return to the Emergency Department for any of the following: chest pain, chest pressure, chest tightness, difficulty breathing. The patient should not smoke or use tobacco products in any way! documented in this encounter Progress Notes * Lazaro Cesar [facility] - 09/11/2023 12:54 PM EDT PHARMACY DISCHARGE MEDICATION RECONCILIATION REVIEW [address] [id number] Name: Lewis Alarcon Location: [facility] D Date: 09/11/2023 Time: 12:54 PM This discharge medication reconciliation was reviewed by a pharmacist and no corrections or interventions were required. * Kamille Martel, Medical Student - 09/11/2023 11:28 AM EDT Images from the original note were not included. Unless the attending has added an attestation supporting use of this note to document a billable service, the signature of the Licensed Professional on this note only acknowledges the presence of thestudent's note within the patient record and the Licensed Professional's note should be referred tofor clinical information and recommendations. 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 He recently was admitted to [place] for a fall and subarachnoid/subdural hemorrhage and was taken off his blood thinner. He has kyler intact on the left side of his head from the laceration. He was discharged, but his reports he has been fatigued and weak ever since. She does not believe he is strong enough to be at home without rehabilitation. They do have at home rehab scheduled, but it has not yet started. In ED, labs unremarkable. CT of head showed small R frontal subarachnoid hemorrhage unchanged from 09/04/23, no acute changes. CT cervical spine, C/A/P without acute findings. Admission requested for further monitoring and rehab placement. INTERVAL HISTORY: No acute events overnight, patient doing well. His head pain from the fall feels better today. Denies fever/chills, nausea/vomiting, diarrhea/constipation. Patient's expresses concern for some confusion after his accident, but was informed from [place] that this would be normal for a few days following the incident due to change in medications and the head injury. His mentioned today that [facility] recommended the Keppra for seizure prophylaxis be stopped after 5 days (09/05/23-09/10/23). Objective Physical Exam Most Recent Vital Signs: BP: 124 mmHg/78 mmHg (09/11/23 0711) Pulse: 82 (09/11/23 0711) Temp: 36.5 C (09/11/23 0711) Temp Summary: Temp Min: 36.4 C (97.5 F) Max: 37.3 C (99.1 F) SpO2: 97 % (09/11/23 0711) O2 flow rate: Supplemental O2 Delivery: Room Air, None (09/11/23 0905) *Reviewed* Physical Exam Vitals reviewed. Constitutional: Appearance: Normal appearance. HENT: Head: Normocephalic. Comments: Stables intact on left side of head. No erythema or drainage. Some scabbing is present. Eyes: Pupils: Pupils are equal, round, and reactive to light. Cardiovascular: Rate and Rhythm: Normal rate and regular rhythm. Pulses: Normal pulses. Heart sounds: Normal heart sounds. Pulmonary: Effort: Pulmonary effort is normal. Breath sounds: Normal breath sounds. Abdominal: General: Abdomen is flat. Bowel sounds are normal. Palpations: Abdomen is soft. Skin: General: Skin is warm and dry. Neurological: General: No focal deficit present. Mental Status: He is alert. Psychiatric: Mood and Affect: Mood normal. Urethral Catheter (Active) Number of days: 8 STUDIES: Encounter Orders Labs and other studies reviewed with pertinent findings noted below: Lab results within last 7 days (see chart for full results) Units 09/11/23 0642 09/10/23 0547 09/09/23 0521 Sodium mmol/L 139 143 141 Potassium mmol/L 4.0 3.9 4.6 Chloride mmol/L 101 107 104 CO2 mmol/L 26 25 24 BUN mg/dL 19 18 20 Creatinine mg/dL 1.1 0.9 0.9 Lab results within last 7 days (see chart for full results) Units 09/11/23 0642 09/10/23 0547 09/09/23 0521 HGB g/dL 10.7* 10.8* 11.6* HCT % 33.5* 32.9* 35.6* WBC K/uL 6.40 5.89 7.27 PLT K/uL 174 170 192 HBG and HCT trending upwards Lab results within last 7 days (see chart for full results) Units 09/11/23 0642 09/10/23 0547 09/09/23 0521 Protein g/dL 6.0 5.9* 6.4 Bilirubin, Total mg/dL 0.5 0.4 0.4 Alkaline Phosphatase U/L 60 58 65 AST U/L 12 22 47 ALT U/L 38 52* 77* ALT trending downwards. Now at normal range. Latest Reference Range & Units 09/09/23 06:01 Color, Urine Light Yellow, Yellow, Dark Yellow Yellow Clarity, Urine Clear Clear Glucose, Urine Negative mg/dL Negative Bilirubin, Urine Negative Negative Ketone, Urine Negative mg/dL Negative Specific Moran, Urine 1.003 - 1.030 1.022 Blood, Urine Negative Large ! pH, Urine 5.0 - 7.5 Units 5.5 Protein, Urine Negative mg/dL Trace ! Urobilinogen, Urine 0.2, 1.0 mg/dL 1.0 Nitrite, Urine Negative Negative Esterase, Urine Negative Negative Bacteria, Urine 0 - 25 /HPF 101-150 ! WBC, Urine 0 - 2 /HPF 0-2 RBC, Urine 0 - 2 /HPF 30-49 ! I/O (09/11/23) Intake: 410 Output: 1,300 Net: -890 Imaging (09/09/23) XR Chest: No acute findings. XR Pelvis: 1. Previous total right hip arthroplasty. 2. No acute fracture or dislocation. CT Head/Brain WO Contrast: 1. A small right frontal subarachnoid hemorrhage is unchanged compared to previous CT dated 09/04/2023. 2. 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 3. Generalized brain atrophy and microvascular ischemic changes in bilateral white matter. CT C Spine WO Contrast 1. No acute findings. 2. Posterior C2-T2 cervical spine fusion in good alignment, without evidence of hardware failure. CT Chest W Contrast - not acute findings CT ABD/Pelvis W/ IV Contrast 1. No acute findings. 2. A 3 cm simple appearing cyst in the midportion of the left kidney. A 1.2 cm simple appearing cyst in the lower pole of the right kidney. A 6 mm nonobstructing calculus in the lower pole of the left kidney. A 1.3 cm nonobstructing calculus in the pelvis of the right kidney. No follow up imaging is recommended for the renal cysts. 3. Mild descending colon diverticulosis and moderate sigmoid colon diverticulosis without evidence of diverticulitis. Assessment and Plan IMPRESSION : Principal Problem: Ambulatory dysfunction Active Problems: Type 2 diabetes mellitus with polyneuropathy (HCC) BPH without obstruction/lower urinary tract symptoms Hyperlipidemia with target LDL less than 100 History of DVT (deep vein thrombosis) History of pulmonary embolism Generalized weakness Fall Subdural hematoma (HCC) Resolved Problems: * No resolved hospital problems. * DIFFERENTIAL AND PLAN: 72 year old male with pmHx of diabetes, hyperlipidemia, hypertension, DVT and cervical spine injuryfollowing a fall in 2019 resulting in partial quadriplegia presented to the ED two days ago for weakness and ambulatory dysfunction following a fall on 09/05/23 Differential: Residual weakness from subarachnoid hemorrhage on 09/04. This is likely since the CT is unchanged and the patient is not experiencing any new symptoms. Weakness from a UTI is unlikely asthe urinalysis had negative nitrites and esterase along with no associated symptoms of urinary urgency, dysuria or fever. Hemoglobin and hematocrit are now trending upwards, making secondary bleedingas a cause of weakness unlikely. Fall/ Ambulatory Dysfunction/ Weakness - Maintain amitriptyline at 25mg and duloxetine for neuropathic pain - Fall prophylaxis -Rehabilitation placement at [facility] on 09/11/23 - continue juarez maintenance Subdural hematoma - Neuro consulted. Continue to hold full anticoagulation, ASA, NSAIDs & antiplatelet medications -Recommend follow up CT brain 2-3 weeks after initial hemorrhage -Stat CT brain for any acute neurological decline - Neuro consult recommend to continue Keppra for at least 7-14 days if it was only prescribed due to a traumatic brain injury. Hx of PE and DVT -anticoagulation held due to brain bleed from fall. Hyperlipidemia -atorvastatin T2DM -sliding scale insulin -continue metformin upon discharge Bacteriuria - Since patient asymptomatic, no therapy or action is needed at this time. Housekeeping -Patient is cleared for discharge to [facility] today. - Consults for hematology and neurology for medication adjustment of Keppra and warfarin. Possibly restart warfarin for DVT prophylaxis, and stop Keppra for anti seizure prophylaxis following subarachnoid hemorrhage. PHARMACOLOGIC VTE PROPHYLAXIS: Warfarin Sodium CODE STATUS: Full Code EXPECTED DISCHARGE DATE: 09/11/2023 Kamille Martel, MS3 [facility] Associated attestation - Liam Paez MD - 09/11/2023 1:19 PM EDT I attest that I have reviewed the student note and that the components of the history, the physicalexam, and the assessment and plan documented were performed in my presence with the student where Iverified the documentation and performed (or re-performed) the exam and medical decision making. I spent a total of 45 minutes coordinating, documenting, and providing care for this patient excluding time spent in the performance of separately billed services. * Kamille Martel, Medical Student - 09/10/2023 10:32 AM EDT Images from the original note were not included. [facility] 4B-4010/D 72 year old male with pmHx of diabetes, hyperlipidemia, hypertension, DVT and cervical spine injuryfollowing a fall in 2019 resulting in partial quadriplegia presented to the ED yesterday for weakness and ambulatory dysfunction following a fall on 09/05/23. He recently was admitted to [place] for afall and subarachnoid/subdural hemorrhage and was taken off his blood thinner. He has kyler intact on the left side of his head from the laceration. He was discharged, but his reports he has been fatigued and weak ever since. She does not believe he is strong enough to be at home without rehabilitation. They do have at home rehab scheduled, but it has not yet started. In ED, labs unremarkable. CT of head showed small R frontal subarachnoid hemorrhage unchanged from 09/04/23, no acute changes. CT cervical spine, C/A/P without acute findings. Admission requested for further monitoring and rehab placement. INTERVAL HISTORY: Pt is doing well, and only complains of head pain where his kyler were placed. He denies nausea/ vomiting. Diarrhea/constipation, fever/chills. He does have a catheter in place that is voiding urine yellow in color. Pt asked about secondary sources of bleeding due to low hemoglobin; denies unusual bruising, hemoptysis, visible hematuria and hematochezia. No burning on urination or retention. states that she does not believe home chrissy is enough, and he needs to go somewhere for rehabilitation. Objective Physical Exam Most Recent Vital Signs: BP: 131 mmHg/75 mmHg (09/10/23703) Pulse: 88 (09/10/23703) Temp: 36.5 C (09/10/23703) Temp Summary: Temp Min: 36.2 C (97.2 F) Max: 36.8 C (98.2 F) SpO2: 97 % (09/10/23703) O2 flow rate: Supplemental O2 Delivery: Room Air, None (09/10/23703) Reviewed* Physical Exam Vitals reviewed. HENT: Head: Comments: [address] on the left. No erythema or drainage. Some scabbing is noted around the laceration as well. Eyes: Pupils: Pupils are equal, round, and reactive to light. Cardiovascular: Rate and Rhythm: Normal rate and regular rhythm. Pulses: Normal pulses. Heart sounds: Normal heart sounds. Pulmonary: Effort: Pulmonary effort is normal. Breath sounds: Normal breath sounds. Abdominal: General: Abdomen is flat. Bowel sounds are normal. Palpations: Abdomen is soft. 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 No leg edema Skin: General: Skin is warm and dry. Neurological: Mental Status: He is alert and oriented to person, place, and time. Psychiatric: Mood and Affect: Mood normal. Urethral Catheter (Active) Number of days: 7 Peripheral Line Right Antecubital 20 Gauge (Active) Number of days: 1 STUDIES: Encounter Orders Labs and other studies reviewed with pertinent findings noted below: Lab results within last 7 days (see chart for full results) Units 09/10/23 0547 09/09/23 0521 09/04/23 2157 HGB g/dL 10.8* 11.6* 13.1* HCT % 32.9* 35.6* 39.1* WBC K/uL 5.89 7.27 9.17 PLT K/uL 170 192 215 Hemoglobin and hematocrit trending down Lab results within last 7 days (see chart for full results) Units 09/10/23 0547 09/09/23 0521 09/04/23 2157 Sodium mmol/L 143 141 139 Potassium mmol/L 3.9 4.6 4.5 Chloride mmol/L 107 104 103 CO2 mmol/L 25 24 22 BUN mg/dL 18 20 20 Creatinine mg/dL 0.9 0.9 1.1 Lab results within last 7 days (see chart for full results) Units 09/09/23 0521 09/04/23 2157 Protein g/dL 6.4 6.4 Bilirubin, Total mg/dL 0.4 0.4 Alkaline Phosphatase U/L 65 61 AST U/L 47 23 ALT U/L 77* 19 Magnesium 1.5 - 2.6 mg/dL 1.4 Low Latest Reference Range & Units 09/09/23 06:01 Color, Urine Light Yellow, Yellow, Dark Yellow Yellow Clarity, Urine Clear Clear Glucose, Urine Negative mg/dL Negative Bilirubin, Urine Negative Negative Ketone, Urine Negative mg/dL Negative Specific Moran, Urine 1.003 - 1.030 1.022 Blood, Urine Negative Large ! pH, Urine 5.0 - 7.5 Units 5.5 Protein, Urine Negative mg/dL Trace ! Urobilinogen, Urine 0.2, 1.0 mg/dL 1.0 Nitrite, Urine Negative Negative Esterase, Urine Negative Negative Bacteria, Urine 0 - 25 /HPF 101-150 ! WBC, Urine 0 - 2 /HPF 0-2 RBC, Urine 0 - 2 /HPF 30-49 ! I/O (09/10/23) Intake: 480 Output: 950 Net: -470 Imaging (09/09/23) XR Chest: No acute findings. XR Pelvis: 1. Previous total right hip arthroplasty. 2. No acute fracture or dislocation. CT Head/Brain WO Contrast: 1. A small right frontal subarachnoid hemorrhage is unchanged compared to previous CT dated 09/04/2023. 2. 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 3. Generalized brain atrophy and microvascular ischemic changes in bilateral white matter. CT C Spine WO Contrast 1. No acute findings. 2. Posterior C2-T2 cervical spine fusion in good alignment, without evidence of hardware failure. CT Chest W Contrast - not acute findings CT ABD/Pelvis W/ IV Contrast 1. No acute findings. 2. A 3 cm simple appearing cyst in the midportion of the left kidney. A 1.2 cm simple appearing cyst in the lower pole of the right kidney. A 6 mm nonobstructing calculus in the lower pole of the left kidney. A 1.3 cm nonobstructing calculus in the pelvis of the right kidney. No follow up imaging is recommended for the renal cysts. 3. Mild descending colon diverticulosis and moderate sigmoid colon diverticulosis without evidence of diverticulitis. Assessment and Plan IMPRESSION : Principal Problem: Ambulatory dysfunction Active Problems: Type 2 diabetes mellitus with polyneuropathy (HCC) BPH without obstruction/lower urinary tract symptoms Hyperlipidemia with target LDL less than 100 History of DVT (deep vein thrombosis) History of pulmonary embolism Generalized weakness Fall Subdural hematoma (HCC) Resolved Problems: * No resolved hospital problems. * DIFFERENTIAL AND PLAN: 72 year old male with pmHx of diabetes, hyperlipidemia, hypertension, DVT and cervical spine injuryfollowing a fall in 2019 resulting in partial quadriplegia presented to the ED yesterday for weakness and ambulatory dysfunction following a fall on 09/05/23 Differential: Residual weakness from subarachnoid hemorrhage on 09/04. This is likely since the CT is unchanged and the patient is not experiencing any new symptoms. The bacteriuria is suspicious for a UTI and can contribute to weakness as well. Hemoglobin trending downward is suspicious for a secondary bleed and may have contributed to weakness. Fall/ Ambulatory Dysfunction/ Weakness - Continue amitriptyline and duloxetine for neuropathic pain. Will taper down amitriptyline as appropriate. - Fall prophylaxis -Consult PT/OT -Consult care management for rehabilitation placement - continue juarez maintenance - monitor hemoglobin and HCT Subdural hematoma - hold warfarin to decrease hemorrhage risk -continue Keppra for seizure prophylaxis. Per [facility] to discontinue on 09/10/23. Will reevaluate as needed. Hx of PE and DVT -anticoagulation held due to brain bleed from fall. Continue to hold until reviewed chart for further instructions. 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 BPH -Tamsulosin and Finasteride Housekeeping: -Care management consult for outpatient rehabilitation services - Urine Culture results to evaluate for UTI and determine treatment - Monitor hemoglobin for evidence of bleeding - Juarez catheter maintenance PHARMACOLOGIC VTE PROPHYLAXIS: Warfarin Sodium CODE STATUS: Full Code EXPECTED DISCHARGE DATE: Unknown Kamille Martel, MS3 [facility] Associated attestation - Liam Paez MD - 09/11/2023 8:25 AM EDT I attest that I have reviewed the student note and that the components of the history, the physicalexam, and the assessment and plan documented were performed in my presence with the student where Iverified the documentation and performed (or re-performed) the exam and medical decision making. DOS: 09/10/2023 I spent a total of 35 minutes coordinating, documenting, and providing care for this patient excluding time spent in the performance of separately billed services. documented in this encounter H&P Notes * Sylvie Constantino CRNP - 09/09/2023 8:15 AM EDT Images from the original note were not included. [facility] 4B-4010/D PRESENTING PROBLEM: Fall HPI: 72 y/o male with PMHx DM, HLD, HTN, DVT/PE, BPH, history fall with cervical spine injury 2019 resulting in partial quadriplegia, GERD, neuropathy presented to ED via EMS for fall. Recently inpatient [facility] 09/04-09/07/23 s/p fall with subdural and subarachnoid hemorrhage. Juarez placed and intact. Several meds d/c at discharge including baclofen, gabapentin, glimepiride, lisinopril and warfarin. Since home, reports pt getting weaker. He can typically ambulate with walker, has lift chair. Today, when trying to transfer from lift chair to w/c, his legs gave out. She was able to assist him to the floor. Pt with chronic BUE weakness and intermittent low back pain. Currently pt denies any pain, headache, dizziness, CP, shortness of breath, N/V/D. Non-smoker and occasional alcohol use. Pt/ requesting rehab placement. In ED, labs unremarkable. CT of head showed small R frontal subarachnoid hemorrhage unchanged from 09/04/23, no acute changes. CT cervical spine, C/A/P without acute findings. Admission requested for further monitoring and rehab placement. Subjective Patient's past history, medications, and allergies were reviewed. Objective Physical Exam Most Recent Vital Signs: BP: 155 mmHg/89 mmHg (09/09/23 0805) Pulse: 86 (09/09/23 0805) Temp: 36.39 C (09/09/23 0515) Temp Summary: Temp Min: 36.4 C (97.5 F) Max: 36.4 C (97.5 F) SpO2: 97 % (09/09/23 08) O2 flow rate: Supplemental O2 Delivery: Physical Exam Vitals and nursing note reviewed. Constitutional: General: He is not in acute distress. Appearance: He is not toxic-appearing. HENT: Head: Comments: Laceration kyler intact. Eyes: Conjunctiva/sclera: Conjunctivae normal. Cardiovascular: Rate and Rhythm: Normal rate and regular rhythm. Heart sounds: No murmur heard. Pulmonary: Effort: Pulmonary effort is normal. No respiratory distress. Breath sounds: Normal breath sounds. Abdominal: General: Bowel sounds are normal. Palpations: Abdomen is soft. Musculoskeletal: Right lower leg: No edema. Left lower leg: No edema. Comments: Able to move legs, equal strength Skin: General: Skin is warm and dry. Coloration: Skin is not pale. Neurological: General: No focal deficit present. Mental Status: He is alert and oriented to person, place, and time. Psychiatric: Mood and Affect: Mood normal. Behavior: Behavior normal. Peripheral Line Right Antecubital 20 Gauge (Active) Number of days: 0 STUDIES: Encounter Orders Labs and other studies reviewed with pertinent findings noted below: Results for orders placed or performed during the hospital encounter of 09/09/23 COMPREHENSIVE METABOLIC PANEL Result Value Ref Range BUN 20 6 - 20 mg/dL Creatinine 0.9 0.6 - 1.2 mg/dL Estimated Glomerular Filtration Rate 86 >=60 mL/min Sodium 141 135 - 146 mmol/L Potassium 4.6 3.5 - 5.1 mmol/L Chloride 104 98 - 107 mmol/L CO2 24 22 - 32 mmol/L Anion Gap 13 7 - 15 mmol/L Glucose 188 (H) 70 - 120 mg/dL Albumin 3.8 3.8 - 5.0 g/dL AST 47 10 - 50 U/L Alkaline Phosphatase 65 35 - 130 U/L Bilirubin, Total 0.4 <=1.2 mg/dL Calcium 9.8 8.4 - 10.2 mg/dL Protein 6.4 6.0 - 8.3 g/dL ALT 77 (H) 10 - 50 U/L TOXICOLOGY, URINE SCREEN W/ CONFIRMATION Result Value Ref Range Amphetamines Screen, U Negative Negative Benzodiazepines Screen, U Negative Negative Cannabinoids Screen, U Negative Negative Cocaine Metabolite Screen, U Negative Negative Fentanyl Screen, U Negative Negative Hydrocodone Screen, U Negative Negative Methadone Metabolite Screen, U Negative Negative Morphine/Codeine Screen, U Negative Negative Oxycodone Screen, U Negative Negative ETHANOL, MEDICAL Result Value Ref Range ETHANOL, MEDICAL Negative Negative LACTATE,WHOLE BLOOD Result Value Ref Range Lactate, Whole Blood 1.7 0.4 - 2.0 mmol/L PT INR Result Value Ref Range Prothrombin Time 14.0 11.6 - 15.2 seconds INR 1.1 0.8 - 1.2 URINALYSIS, REFLEX TO MICROSCOPIC Result Value Ref Range Color, Urine Yellow Light Yellow, Yellow, Dark Yellow Clarity, Urine Clear Clear Glucose, Urine Negative Negative mg/dL Bilirubin, Urine Negative Negative Ketone, Urine Negative Negative mg/dL Specific Moran, Urine 1.022 1.003 - 1.030 Blood, Urine Large (A) Negative pH, Urine 5.5 5.0 - 7.5 Units Protein, Urine Trace (A) Negative mg/dL Urobilinogen, Urine 1.0 0.2, 1.0 mg/dL Nitrite, Urine Negative Negative Esterase, Urine Negative Negative TYPE AND SCREEN Result Value Ref Range ABO O Rh Positive Red Blood Cell Antibody Screen Negative Specimen Expiration Date 09/12/2023 23:59 CBC Result Value Ref Range WBC 7.27 4.00 - 10.80 K/uL RBC 3.77 4.50 - 5.25 M/uL HGB 11.6 (L) 14.0 - 16.8 g/dL HCT 35.6 (L) 40.0 - 48.4 % MCV 94.4 82.0 - 99.5 fL MCH 30.8 27.0 - 34.0 pg MCHC 32.6 32.0 - 36.0 g/dL RDW 14.2 11.5 - 15.5 % PLT 192 140 - 400 K/uL MPV 9.0 6.6 - 11.1 fL nRBCs 0 <=0 /100 WBCs DIFFERENTIAL, AUTOMATED Result Value Ref Range WBC 7.27 4.00 - 10.80 K/uL Neutrophils % 50.0 40.0 - 75.0 % Lymphocytes % 33.7 18.0 - 42.0 % Monocytes % 8.3 1.0 - 11.0 % Eosinophils % 6.9 (H) 0.0 - 6.0 % Basophils % 0.7 0.0 - 2.0 % Immature Granulocytes % 0.4 0.0 - 2.0 % Absolute Neutrophils 3.64 1.80 - 7.70 K/uL Absolute Lymphocytes 2.45 1.00 - 4.80 K/ul Absolute Monocytes 0.60 0.00 - 1.10 K/uL Absolute Eosinophils 0.50 0.00 - 0.70 K/uL Absolute Basophils 0.05 0.00 - 0.20 K/uL Absolute Immature Granulocytes 0.03 0.00 - 0.20 K/uL MICROSCOPIC EXAM, URINE Result Value Ref Range RBC, Urine 30-49 (A) 0 - 2 /HPF WBC, Urine 0-2 0 - 2 /HPF Bacteria, Urine 101-150 (A) 0 - 25 /HPF SARS-COV-2 (COVID-19), NAAT Result Value Ref Range SARS-CoV-2 (COVID-19) Result Negative Negative CT HEAD/BRAIN WO CONTRAST Final Result PROCEDURE INFORMATION: Exam: CT Head Without Contrast Exam date and time: 09/09/2023 5:28 AM Age: 72 years old Clinical indication: Injury or trauma; Bleeding/hemorrhage; Patient HX: Trauma alert; PT. Fell transferring out of bed. PT. Had recent fall 9 days ago that resulted in head bleed. PT. Unable to lay head/neck back due to cervical hardware; Best positioning possible; Additional info: Significant trauma with possible severe neurologic injury or head pain TECHNIQUE: Imaging protocol: Computed tomography of the head without contrast. Radiation optimization: All CT scans at this facility use at least one of these dose optimization techniques: automated exposure control; mA and/or kV adjustment per patient size (includes targeted exams where dose is matched to clinical indication); or iterative reconstruction. 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 No acute intracranial hemorrhage. No mass effect or midline shift. No acute extraaxial fluid collection. Generalized brain atrophy and microvascular ischemic changes in bilateral white matter. Cerebral ventricles: No ventriculomegaly. Paranasal sinuses: Partially visualized sinuses are unremarkable. No fluid levels. Mastoid air cells: Visualized mastoid air cells are well aerated. Orbital cavities: Previous bilateral cataract surgery. Bones/joints: Unremarkable. No acute calvarial fracture. Soft tissues: Unremarkable. Vasculature: Atherosclerotic calcifications in the intracranial segments of bilateral internal carotid arteries and bilateral vertebral arteries. IMPRESSION IMPRESSION: 1. A small right frontal subarachnoid hemorrhage is unchanged compared to previous CT dated 09/04/2023. 2. 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 3. Generalized brain atrophy and microvascular ischemic changes in bilateral white matter. THIS DOCUMENT HAS BEEN ELECTRONICALLY SIGNED BY DAYNA EVANS MD CT C SPINE WO CONTRAST Final Result PROCEDURE INFORMATION: Exam: CT Cervical Spine Without Contrast Exam date and time: 09/09/2023 5:28 AM Age: 72 years old Clinical indication: Injury or trauma; Concussion/head injury; Patient HX: Trauma alert; PT. Fell transferring out of bed. PT. Had recent fall 9 days ago that resulted in head bleed. PT. Unable to lay head/neck back due to cervical hardware; Best positioning possible; Additional info: Significant trauma with possible severe neurologic injury or neck pain TECHNIQUE: Imaging protocol: Computed tomography of the cervical spine without contrast. Radiation optimization: All CT scans at this facility use at least one of these dose optimization techniques: automated exposure control; mA and/or kV adjustment per patient size (includes targeted exams where dose is matched to clinical indication); or iterative reconstruction. COMPARISON: CT C SPINE WO CONTRAST 09/04/2023 9:52 PM FINDINGS: Bones/joints: No acute cervical spine fracture. Posterior C2-T2 cervical spine fusion in good alignment, without evidence of hardware failure. Lungs: Lung apices are normal. Soft tissues: Unremarkable. IMPRESSION IMPRESSION: 1. No acute findings. 2. Posterior C2-T2 cervical spine fusion in good alignment, without evidence of hardware failure. THIS DOCUMENT HAS BEEN ELECTRONICALLY SIGNED BY DAYNA EAVNS MD CT CHEST W CONTRAST Final Result PROCEDURE INFORMATION: Exam: CT Chest With Contrast; Diagnostic Exam date and time: 09/09/2023 5:33 AM Age: 72 years old Clinical indication: Injury or trauma; Patient HX: Trauma alert; PT. Fell transferring out of bed. PT. Had recent fall 9 days ago that resulted in head bleed. PT. Unable to lay head/neck back due to cervical hardware; Best positioning possible; Additional info: Significant trauma with possible severe intraabdominal injury or abdominal pain TECHNIQUE: Imaging protocol: Diagnostic computed tomography of the chest with contrast. Radiation optimization: All CT scans at this facility use at least one of these dose optimization techniques: automated exposure control; mA and/or kV adjustment per patient size (includes targeted exams where dose is matched to clinical indication); or iterative reconstruction. Contrast material: ISOVUE 370; Contrast volume: 100 ml; Contrast route: INTRAVENOUS (IV); COMPARISON: CT ABD/PELVIS W IV CONTRAST - WO ORAL CONTRAST 09/04/2023 9:52 PM FINDINGS: Lungs: Unremarkable. No consolidation. No masses. Pleural spaces: Unremarkable. No pneumothorax. No pleural effusion. Heart: Unremarkable. No cardiomegaly. No pericardial effusion. Coronary arteries: Coronary artery calcifications. Lymph nodes: Unremarkable. No enlarged lymph nodes. Vasculature: Unremarkable. No aortic aneurysm. Bones/joints: C7-T2 posterior fusion without evidence of hardware failure. No acute fractures. Soft tissues: Unremarkable. IMPRESSION IMPRESSION: No acute findings. PROCEDURE INFORMATION: Exam: CT Abdomen And Pelvis With Contrast Exam date and time: 09/09/2023 5:33 AM Age: 72 years old Clinical indication: Injury or trauma; Patient HX: Trauma alert; PT. Fell transferring out of bed. PT. Had recent fall 9 days ago that resulted in head bleed. PT. Unable to lay head/neck back due to cervical hardware; Best positioning possible; Additional info: Significant trauma with possible severe intraabdominal injury or abdominal pain TECHNIQUE: Imaging protocol: Computed tomography of the abdomen and pelvis with contrast. 3D rendering (Not supervised by radiologist): MIP and/or 3D reconstructed images were created by the technologist. Radiation optimization: All CT scans at this facility use at least one of these dose optimization techniques: automated exposure control; mA and/or kV adjustment per patient size (includes targeted exams where dose is matched to clinical indication); or iterative reconstruction. Contrast material: ISOVUE 370; Contrast volume: 100 ml; Contrast route: INTRAVENOUS (IV); COMPARISON: CT ABD/PELVIS W IV CONTRAST - WO ORAL CONTRAST 09/04/2023 9:52 PM FINDINGS: Liver: Normal. No liver mass. Gallbladder and bile ducts: No gallstones, gallbladder wall thickening or pericholecystic fluid. Common bile duct is not dilated. Pancreas: Unremarkable. No significant pancreatic duct dilation. Spleen: Normal. No splenomegaly. Adrenal glands: Normal. No adrenal mass. Kidneys and ureters: A 3 cm simple appearing cyst in the midportion of the left kidney. A 1.2 cm simple appearing cyst in the lower pole of the right kidney. A 6 mm nonobstructing calculus in the lower pole of the left kidney. A 1.3 cm nonobstructing calculus in the pelvis of the right kidney. No follow up imaging is recommended for the renal cysts. Stomach and bowel: Mild descending colon diverticulosis and moderate sigmoid colon diverticulosis without evidence of diverticulitis. No bowel obstruction, ileus, or colitis. Appendix: No CT evidence of appendicitis. Intraperitoneal space: No free air or fluid in the abdomen. No abnormal fluid collection. Vasculature: Unremarkable. No abdominal aortic aneurysm. Lymph nodes: No abdominal lymphadenopathy. Urinary bladder: Juarez catheter in the bladder. Reproductive: Unremarkable as visualized. Bones/joints: No acute fracture. Previous right hip total arthroplasty in good alignment. Without evidence of hardware failure. Soft tissues: Unremarkable. IMPRESSION: 1. No acute findings. 2. A 3 cm simple appearing cyst in the midportion of the left kidney. A 1.2 cm simple appearing cyst in the lower pole of the right kidney. A 6 mm nonobstructing calculus in the lower pole of the left kidney. A 1.3 cm nonobstructing calculus in the pelvis of the right kidney. No follow up imaging is recommended for the renal cysts. 3. Mild descending colon diverticulosis and moderate sigmoid colon diverticulosis without evidence of diverticulitis. COMMENTS: Consistent with the [employer]'s Incidental Findings Committee white paper (J Am Micah Radiol 2018): Any incidental renal lesion less than 1 cm or classified as too small to characterize, or any incidental cystic renal lesion characterized as simple-appearing, is likely benign. No follow-up imaging is recommended for these lesions per consensus recommendations based on imaging criteria. THIS DOCUMENT HAS BEEN ELECTRONICALLY SIGNED BY DAYNA EVANS MD CT ABD/PELVIS W IV CONTRAST - WO ORAL CONTRAST Final Result PROCEDURE INFORMATION: Exam: CT Chest With Contrast; Diagnostic Exam date and time: 09/09/2023 5:33 AM Age: 72 years old Clinical indication: Injury or trauma; Patient HX: Trauma alert; PT. Fell transferring out of bed. PT. Had recent fall 9 days ago that resulted in head bleed. PT. Unable to lay head/neck back due to cervical hardware; Best positioning possible; Additional info: Significant trauma with possible severe intraabdominal injury or abdominal pain TECHNIQUE: Imaging protocol: Diagnostic computed tomography of the chest with contrast. Radiation optimization: All CT scans at this facility use at least one of these dose optimization techniques: automated exposure control; mA and/or kV adjustment per patient size (includes targeted exams where dose is matched to clinical indication); or iterative reconstruction. Contrast material: ISOVUE 370; Contrast volume: 100 ml; Contrast route: INTRAVENOUS (IV); COMPARISON: CT ABD/PELVIS W IV CONTRAST - WO ORAL CONTRAST 09/04/2023 9:52 PM FINDINGS: Lungs: Unremarkable. No consolidation. No masses. Pleural spaces: Unremarkable. No pneumothorax. No pleural effusion. Heart: Unremarkable. No cardiomegaly. No pericardial effusion. Coronary arteries: Coronary artery calcifications. Lymph nodes: Unremarkable. No enlarged lymph nodes. Vasculature: Unremarkable. No aortic aneurysm. Bones/joints: C7-T2 posterior fusion without evidence of hardware failure. No acute fractures. Soft tissues: Unremarkable. IMPRESSION IMPRESSION: No acute findings. PROCEDURE INFORMATION: Exam: CT Abdomen And Pelvis With Contrast Exam date and time: 09/09/2023 5:33 AM Age: 72 years old Clinical indication: Injury or trauma; Patient HX: Trauma alert; PT. Fell transferring out of bed. PT. Had recent fall 9 days ago that resulted in head bleed. PT. Unable to lay head/neck back due to cervical hardware; Best positioning possible; Additional info: Significant trauma with possible severe intraabdominal injury or abdominal pain TECHNIQUE: Imaging protocol: Computed tomography of the abdomen and pelvis with contrast. 3D rendering (Not supervised by radiologist): MIP and/or 3D reconstructed images were created by the technologist. Radiation optimization: All CT scans at this facility use at least one of these dose optimization techniques: automated exposure control; mA and/or kV adjustment per patient size (includes targeted exams where dose is matched to clinical indication); or iterative reconstruction. Contrast material: ISOVUE 370; Contrast volume: 100 ml; Contrast route: INTRAVENOUS (IV); COMPARISON: CT ABD/PELVIS W IV CONTRAST - WO ORAL CONTRAST 09/04/2023 9:52 PM FINDINGS: Liver: Normal. No liver mass. Gallbladder and bile ducts: No gallstones, gallbladder wall thickening or pericholecystic fluid. Common bile duct is not dilated. Pancreas: Unremarkable. No significant pancreatic duct dilation. Spleen: Normal. No splenomegaly. Adrenal glands: Normal. No adrenal mass. Kidneys and ureters: A 3 cm simple appearing cyst in the midportion of the left kidney. A 1.2 cm simple appearing cyst in the lower pole of the right kidney. A 6 mm nonobstructing calculus in the lower pole of the left kidney. A 1.3 cm nonobstructing calculus in the pelvis of the right kidney. No follow up imaging is recommended for the renal cysts. Stomach and bowel: Mild descending colon diverticulosis and moderate sigmoid colon diverticulosis without evidence of diverticulitis. No bowel obstruction, ileus, or colitis. Appendix: No CT evidence of appendicitis. Intraperitoneal space: No free air or fluid in the abdomen. No abnormal fluid collection. Vasculature: Unremarkable. No abdominal aortic aneurysm. Lymph nodes: No abdominal lymphadenopathy. Urinary bladder: Juarez catheter in the bladder. Reproductive: Unremarkable as visualized. Bones/joints: No acute fracture. Previous right hip total arthroplasty in good alignment. Without evidence of hardware failure. Soft tissues: Unremarkable. IMPRESSION: 1. No acute findings. 2. A 3 cm simple appearing cyst in the midportion of the left kidney. A 1.2 cm simple appearing cyst in the lower pole of the right kidney. A 6 mm nonobstructing calculus in the lower pole of the left kidney. A 1.3 cm nonobstructing calculus in the pelvis of the right kidney. No follow up imaging is recommended for the renal cysts. 3. Mild descending colon diverticulosis and moderate sigmoid colon diverticulosis without evidence of diverticulitis. COMMENTS: Consistent with the [employer]'s Incidental Findings Committee white paper (J Am Micah Radiol 2018): Any incidental renal lesion less than 1 cm or classified as too small to characterize, or any incidental cystic renal lesion characterized as simple-appearing, is likely benign. No follow-up imaging is recommended for these lesions per consensus recommendations based on imaging criteria. THIS DOCUMENT HAS BEEN ELECTRONICALLY SIGNED BY DAYNA EVANS MD XR CHEST 1 VIEW Final Result PROCEDURE INFORMATION: Exam: XR Chest Exam date and time: 09/09/2023 5:14 AM Age: 72 years old Clinical indication: Other: Fall; Additional info: Trauma TECHNIQUE: Imaging protocol: Radiologic exam of the chest. Views: 1 view. COMPARISON: DX XR CHEST 1 VIEW 09/04/2023 10:09 PM FINDINGS: Lungs: No consolidation or pulmonary edema. Pleural spaces: No pleural effusion. No pneumothorax. Heart/Mediastinum: Cardiomediastinal silhouette is normal in size. Bones/joints: No acute fractures. Posterior fusion in the lower cervical and upper thoracic spine. IMPRESSION IMPRESSION: No acute findings. THIS DOCUMENT HAS BEEN ELECTRONICALLY SIGNED BY DAYNA EVANS MD XR PELVIS 1 VIEW Final Result PROCEDURE INFORMATION: Exam: XR Pelvis Exam date and time: 09/09/2023 5:19 AM Age: 72 years old Clinical indication: Other: Fall; Additional info: Trauma TECHNIQUE: Imaging protocol: Radiologic exam of the pelvis. Views: 1 or 2 view. COMPARISON: DX XR PELVIS 1 VIEW 09/04/2023 10:09 PM FINDINGS: Bones/joints: Previous total right hip arthroplasty. No acute fracture or dislocation. Soft tissues: Unremarkable. IMPRESSION IMPRESSION: 1. Previous total right hip arthroplasty. 2. No acute fracture or dislocation. THIS DOCUMENT HAS BEEN ELECTRONICALLY SIGNED BY DAYNA EVANS MD Assessment and Plan IMPRESSION: Principal Problem: Ambulatory dysfunction Active Problems: Type 2 diabetes mellitus with polyneuropathy (HCC) BPH without obstruction/lower urinary tract symptoms Hyperlipidemia with target LDL less than 100 History of DVT (deep vein thrombosis) History of pulmonary embolism Generalized weakness Fall Subdural hematoma (HCC) Resolved Problems: * No resolved hospital problems. * DIFFERENTIAL AND PLAN: 72 y/o male with recent d/c C s/p fall with SDH to be admitted with weakness and ambulatory dysfunction-unsafe to remain in home at this time. --Admit med-surg --Continue to hold warfarin --Sliding scale insulin qac and qhs--hold INFORMATION TECHNOLOGY TECHNICIAN metformin (hgba1c 6.8--07/26/23) --Continue Keppra seizure prophylaxis --Juarez care--to follow up with urology outpt --Fall precautions --PT and OT consults --Care mgmt--rehab placement --Continue INFORMATION TECHNOLOGY TECHNICIAN atorvastatin, cinacalcet, duloxetine, finasteride, tamsulosin. --Continue amitriptyline 25mg daily x 5 days then stop--per recommendation [facility] [place] PHARMACOLOGIC VTE PROPHYLAXIS: SCD only CODE STATUS: Full Code EXPECTED DISCHARGE DATE: 24-48 hrs 65 minutes spent on admission of this patient which include review of EHR, evaluation and discussion of care with patient/family, coordination of care with ED, coordination of care with nursing, coordination of care with admitting hospitalist Dr. Ashraf. PHILIP Chacon Associated attestation - Pau Ashraf MD - 09/09/2023 3:11 PM EDT I have reviewed the advanced practitioner's documentation on the date of service referenced in note, and I agree with, and take responsibility for the plan of care. Patient had presented to the ER earlier this week after a fall and was transferred to [facility] with subarachnoid hemorrhage He was discharged from [facility] on 09/07/2023 Records provided by , his Coumadin was stopped and was put on Keppra till 09/10/2023. Was also recommended to start weaning amitriptyline reported that he has been weak since coming home 2 days ago Today he couldn't get up with his walker despite assistance with the . His legs gave out and lowered him to ground Labs reviewed CT head showed right subarachnoid hemorrhage unchanged. Patient has no complaints at this time. Patient will be admitted observation pending placement. PT/OT/Case Management consult Fall precautions Continue juarez placed at [facility] for urinary retention. Patient to follow up with [facility] outpatient I spent a total of 35 minutes coordinating, documenting, and providing care for this patient excluding time spent in the performance of separately billed services or time spent by another provider/QHP. documented in this encounter Consult Notes * Sonal Junior, OTR/L - 09/10/2023 1:59 PM EDTAssociated Order(s): ADULT OCCUPATIONAL THERAPY CONSULT IP GENERAL EVALUATION - Occupational Therapy [address] [id number] Name: Lewis Alarcon Location: [facility] [id number]-[id number]/D Date: 09/10/2023 Time: 2:48 PM Lewis Alarcon is a 72 year old male. 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 Recently [place] [facility] [place]07[place] s/p fall with subdural and subarachnoid hemorrhage. Juarez placed andintact. Several meds d/c at discharge including baclofen, gabapentin, glimepiride, lisinopril and wa rfarin. Since home, reports pt getting weaker. He can typically ambulate with walker, has liftchair. Today, when trying to transfer from lift chair to w/c, his legs gave out. She was able to assist him to the floor. Pt with chronic BUE weakness and intermittent low back pain. Currently pt denies any pain, headache, dizziness, CP, shortness of breath, N/V/D. Non-smoker and occasional alcoholuse. Pt/ requesting rehab placement. In ED, labs unremarkable. CT of head showed small R frontal subarachnoid hemorrhage unchanged from 09/04/23, no acute changes. CT cervical spine, C/A/P without acute findings. Admission requested for further monitoring and rehab placement." Patient Status: Observation Insurance: Payor: MEDICARE Plan: MEDICARE A AND B Product Type: *No Product type* Payor: AARP Plan: AARP Product Type: *No Product type* Patient Seen: at bedside Patient Identified By: Name, ID Band and Date Diagnosis: Generalized weakness, Recent fall with SAH and SDH (09/10/23 9391) Status of treatment: OOB evaluation completed (04/1358) Orders: OT evaluation and treatment (09/10/231358) Weight Bearing Status: Weight bearing as tolerated (09/10/231358) Precautions: Alarms;Falls;Safety (09/10/231358) Total Treatment Time: 24 (09/10/231358) Past Medical History: Past Medical History: Diagnosis [...] DIAGNOSTIC performed by John Gordillo MD at [facility] INCISIONAL HERNIA REPAIR, LAP, REDUCIBLE left inguinal and umbelical INFORMATION 05/14/1988 lymph node removal KNEE ARTHROSCOPY/SURGERY PARTIAL HIP REPLACEMENT & PROSTH Right 09/02/2020 HEMIARTHROPLASTY HIP performed by Gianni Hubbard MD at OR [facility] REMOVE CATARACT, INSERT LENS PROSTH Left 03/23/2022 LEFT EXTRACAPSULAR CATARACT REMOVAL WITH INTRAOCULAR LENS performed by Rad Morgan MD at [facility] REMOVE CATARACT, INSERT LENS PROSTH Right 03/30/2022 RIGHT EXTRACAPSULAR CATARACT REMOVAL WITH INTRAOCULAR LENS performed by Rad Morgan MD at [facility] REMOVE TONSILS & ADENOIDS, AGE 12+ UMBIL HERNIA REPAIR (INCARCERATED) AGE 5+YR Social History/Disposition Lives with: Spouse (09/10/231358) Assistance available: Yes (from spouse) (09/10/231358) Dwelling type: Single story home (09/10/231358) Entry steps: 2 (1+1 ISHMAEL) (09/10/231358) Inside steps: None (09/10/231358) Bedroom location: 1st floor (09/10/231358) Bath location: 1st floor full bath (09/10/231358) Prior Level of Function Reported by: Patient;Family (09/10/231358) Ambulation: Ambulatory with assistance and device (09/10/231358) Ambulatory Device: Rolling walker (09/10/231358) Grooming: Independent (09/10/231358) Bathing: Assistance (09/10/231358) Dressing: Assistance (09/10/231358) Feeding: Assistance (setup assist) (09/10/231358) Toileting: Assistance (09/10/231358) Meal Prep: Dependent (09/10/231358) Homemaking: Dependent (09/10/231358) Shopping: Dependent (09/10/231358) Medication Management: Dependent (09/10/231358) Money Management: Dependent (09/10/231358) Occupation/Leisure Skills: Retired (09/10/231358) Driving: No (09/10/231358) Durable Medical Equipment at home: Rolling walker;Wheelchair;Shower chair;Raised toilet seat;Grab bars (lift chair; gait belt) (09/10/231358) Subjective: Pt agreeable to OT session. Pain: No complaints of pain Observations Consciousness: Alert (09/10/231358) Orientation: Oriented times 4 (09/10/231358) Psychosocial: Patient can communicate basic needs;Patient can converse in a social setting (09/10/231358) Sitting posture: Forward head;Rounded shoulders (09/10/231358) Standing posture: Forward head;Rounded shoulders (09/10/231358) Safety awareness: The Patient verbalizes insight of current deficits.;The Patient demonstrates carryover of insight during functional tasks. (09/10/231358) Other Findings Endurance: Sitting tolerance;Functional activity;Standing tolerance;Fair (09/10/231358) Coordination: LUE;RUE;Gross motor;Impaired (09/10/231358) Current Functional Status: Bilateral Upper Extremity Hand Dominance: Right (09/10/231358) Range of Motion: WFL, except (Significantly limited B shoulder flex/abd (<30*)) (09/10/231358) Strength Assessment: Deficits noted (09/10/231358) LUE: Shoulder;2/5;Elbow;Grasp;4-/5 (09/10/231358) RUE: Shoulder;2/5;Elbow;Grasp;4-/5 (09/10/231358) Self Care Feeding: Supervision (Please comment) (Setup assist, per pt report) (09/10/231358) Toileting: Dependent (Juarez) (09/10/231358) Dressing Lower Body: Dependent (slipper socks) (09/10/231358) Bathing Upper Body: Maximal Assistance (per pt report) (09/10/231358) Lower Body: Maximal Assistance (per pt report) (09/10/231358) Functional Ambulation Assistive Device: Rolling walker (09/10/231358) Distance in feet:: 2 (09/10/231358) Level of Assistance: Moderate Assistance (09/10/231358) Bed Mobility Sit-Supine: Dependent (09/10/231358) OT Transfers Sit-Stand: Moderate Assistance (x2) (09/10/231358) Stand-Sit: Moderate Assistance (x2) (09/10/231358) Bed-Chair: Moderate Assistance (x2) (09/10/231358) Balance Sit (Static): Good (09/10/231358) Sit (Dynamic): Good (09/10/231358) Stand (Static): Fair (09/10/231358) Stand (Dynamic): Fair (09/10/231358) Alarm Status Patient positioned in: Bed (09/10/231358) With: Bed alarm intact and functioning and call kebede in reach (09/10/231358) Patient and Family Goals: to get well and to return home Patient Education Education Topic: Role of OT;Plan of care goals (09/10/231358) Review of Precautions: Safety;Fall (09/10/231358) Education Provided to: Patient (09/10/231358) Response to Education: Receptive and agreeable to education (09/10/231358) Barriers to learning: Medical status (09/10/231358) Preferred learning method: Combination (09/10/231358) Treatment Provided: Therapeutic Activity: 9 minutes Evaluation Moderate Complexity 15 minutes - 34400: Patient was cooperative, pleasant, and alert during treatment session. Moderate complexity evaluation performed and 3-5 activity limitations were identified, including ADL deficit, functional mobility deficit, bed mobility deficit, decreased strength, decreased endurance, decreased range of motion, and impaired balance. Minimal or moderate modification of the functional task was necessary to complete the evaluation. Deficits Requiring O.T. Treatment: Deficits requiring O.T. treatment needs: ADL/self-care;Balance;Endurance;Functional mobility;Upper extremity strength;Safety;Weakness (09/10/23 135) Goals: Bathing: Upper: moderate assistance (pt does 50%). Lower: moderate assistance (pt does 50%) Dressing: Upper: minimal assistance (pt does 75%). Lower: maximal assistance (pt does 25%). Bed Mobility with: Supine to Sit: maximal assistance (pt does 25%) Sit to supine: maximal assistance (pt does 25%). Transfers with: Toilet: moderate assistance (pt does 50%) Bed to Chair/Wheelchair: moderate assistance (pt does 50%). Demonstrates standing tolerance at: 5 Minutes. Goal Time Frame: 1-10 sessions Assessment: Mr. Alracon was seen at bedside for OT evaluation. Pt was pleasant and A&Ox4. He presents with deficits in ADLs, functional mobility, balance, strength, ROM, and activity tolerance. Pt demonstrated chair to bed transfer using the RW with modA. Pt also required max-totalA for LB dressing, toileting, and bathing tasks. Pt is well below his functional baseline. Would consider post-acute care services which may include home health, [facility], outpatient therapy, or inpatient rehab. The level of care will be determined in collaboration with the patient, family/caregiver, and care team members. AM-PAC score: 12. A portion of this AM-PAC assessment was not scored based on functional assessment, but rather by clinical decision making based on current findings and/ or prior level of function. Please refer to future OT AM-PAC calculations of functional ability as they become available. Treatment Plan: Safety, Bed mobility training, Functional Ambulation, Transfer training, Upper extremity strengthening, Balance activities, ADL training, and Endurance. Anticipated Frequency (on eval): 1 to 3 times per week (09/10/23 135) AM-PAC Help From Another Person Eating Meals: A little (09/10/231358) Help From Another Person Taking Care of Personal Grooming: A little (09/10/231358) Help From Another Person To Put On/Take Off Upper Body Clothing: A lot (09/10/23 1359) Help From Another Person To Put On/Take Off Lower Body Clothing: Total (09/10/23 135) Help From Another Person Toileting: Total (09/10/23 135) Help From Another Person Bathing: A lot (09/10/23 135) OT AM-PAC Score: 12 (09/10/23 135) OT AM-PAC t-Scale Score: 30.6 (09/10/23 135) HLM (Highest Level of Mobility) Goal: Level 3 sit at edge of bed (09/10/23 1010) * Jay Camp, PT - 09/10/2023 10:10 AM EDTAssociated Order(s): ADULT PHYSICAL THERAPY CONSULT IP GENERAL EVALUATION - Physical Therapy [address] [address] Name: Lewis Alarcon Location: [address] Date: 09/10/2023 Time: 1009 Lewis Alarcon is a/an 72 year old male. Patient Status: Observation Insurance: Payor: MEDICARE Plan: MEDICARE A AND B Product Type: *No Product type* Payor: AARP Plan: AARP Product Type: *No Product type* Patient Seen: at bedside, nursing cleared patient for therapy Patient Identified By: Name, ID Band and Date Diagnosis: Gait dysfunction, s/p fall, recent acute sub dural and subarachnoid hemorrhage () Status of treatment: Evaluation completed (09/10/23 101) Orders: PT evaluation and treatment (09/10/23 101) Weight Bearing Status: Weight bearing as tolerated;RUE;LUE;RLE;LLE (09/10/23 101) Precautions: Alarms;Falls;Safety;Other - describe;Juarez (waffle cushion) (09/10/23 101) Total Treatment Time--free text: 41 minutes (09/10/23 101) HPI: Per chart review: " 72 y/o male with PMHx DM, HLD, HTN, DVT/PE, BPH, history fall with cervical spine injury 2018 resulting in partial quadriplegia, GERD, neuropathy presented to ED via EMS for fall. [place] [facility] [place]07[place] s/p fall with subdural and subarachnoid hemorrhage. Juarez placed and intact. Several meds d/c at discharge including baclofen, gabapentin, glimepiride, lisinopril and warfarin. Since home, reports pt getting weaker. He can typically ambulate with walker, has lift chair. Today, when trying to transfer from lift chair to w/c, his legs gave out. She was able to assist him to the floor. Pt with chronic BUE weakness and intermittent low back pain. Currently pt denies any pain, headache, dizziness, CP, shortness of breath, N/V/D. Non-smoker and occasional alcohol use. Pt/ requesting rehab placement. In ED, labs unremarkable. CT of head showed small R frontal subarachnoid hemorrhage unchanged from 09/04/23, no acute changes. CT cervical spine, C/A/P without acute findings. Admission requested for further monitoring and rehab placement." Past Medical History: Past Medical History: Diagnosis [...] performed by John Gordillo MD at OR [facility] INCISIONAL HERNIA REPAIR, LAP, REDUCIBLE left inguinal and umbelical INFORMATION 05/14/1988 lymph node removal KNEE ARTHROSCOPY/SURGERY PARTIAL HIP REPLACEMENT & PROSTH Right 09/02/2020 HEMIARTHROPLASTY HIP performed by Gianni Hubbard MD at OR [facility] REMOVE CATARACT, INSERT LENS PROSTH Left 03/23/2022 LEFT EXTRACAPSULAR CATARACT REMOVAL WITH INTRAOCULAR LENS performed by Rad Morgan MD at OR [facility] REMOVE CATARACT, INSERT LENS PROSTH Right 03/30/2022 RIGHT EXTRACAPSULAR CATARACT REMOVAL WITH INTRAOCULAR LENS performed by Rad Morgan MD at OR [facility] REMOVE TONSILS & ADENOIDS, AGE 12+ UMBIL HERNIA REPAIR (INCARCERATED) AGE 5+YR Subjective: Pt expressed willingness to participate in PT consult Social History/Disposition Lives with: Spouse (09/10/231009) Assistance available: Yes (from spouse) (09/10/231009) Dwelling type: Single story home (09/10/231009) Entry steps: 2 (1+1) (09/10/231009) Inside steps: None (09/10/231009) Bedroom location: 1st floor (09/10/231009) Bath location: 1st floor shower (09/10/231009) Prior Level of Function Reported by: Patient;Family (spouse) (09/10/231009) Ambulation: Ambulatory with device;Ambulatory with assistance and device ( assists approx 50% of the time) (09/10/231009) Ambulatory Device: Rolling walker (09/10/231009) Devices at home: Other - describe;Rolling walker;Wheelchair;Grab bars (gait belt; built in bench inshower; lift recliner) (09/10/231009) Observations Consciousness: Alert (09/10/231009) Orientation: Oriented times 4 (09/10/231009) Psychosocial: Patient can communicate basic needs;Patient can converse in a social setting (09/10/231009) Other Findings: Yes (09/10/231009) Findings: Light touch sensation;Coordination;Tone (09/10/231009) Light Touch Sensation Results: Intact;LLE;RLE (09/10/231009) Coordination Results: Impaired;LLE;RLE (controlled and isolated but decreased speed due to weaknessB LE) (09/10/231009) Tone Results: Impaired;LLE;RLE (mild decrease B LE: chronic and related to history of chronic, incomplete quadriplegia) (09/10/231009) Sitting Posture: Forward head;Rounded shoulders;Anterior lean (09/10/231009) Standing Posture: Forward head;Rounded shoulders;Anterior lean (09/10/231009) Pain: Patient has complaints of pain. Pain located groin during sit to stand but denied pain otherwise. Pt did not rate pain. Informed pt's nurse. Range of Motion Range of Motion: WFL (B LE; see OT for B UE) (09/10/231009) Strength Assessment Strength Assessment: Deficits noted (see OT for B UE) (09/10/231009) WNL, except: LLE;RLE (09/10/231009) LLE: 4-/5;Hip;Knee;4/5;Ankle (09/10/231009) RLE: 3+/5;Hip;Knee;4/5;Ankle (09/10/231009) P.T. Bed Mobility Roll (Left): Moderate Assistance (09/10/231009) Supine-Sit: Moderate Assistance (09/10/231009) Transfers Sit-Stand: Moderate Assistance (mod A 2 at bed, mod A 1 at chair) (09/10/231009) Stand-Sit: Moderate Assistance (mod A 2 1st attempt, mod A 1 2nd attempt) (09/10/231009) W/C-Bed/Mat: Moderate Assistance (mod A 2) (09/10/231009) Ambulation: Distance ambulated (feet): 10 (2 feet once and 8 feet once (4 feet forward and 4 feet backward)) Assistive Device: Rolling walker, gait belt Assist: mod A 2 1st gait training bout, mod A 1 2nd gait training bout Gait Characteristics: Decreased speed, Decreased step length, Unsteady, Increased trunk sway, fatigues easily, not safe to transfer or amb w/o assistance. Balance Sit (Static): Fair (09/10/231009) Sit (Dynamic): Poor (09/10/231009) Stand (Static): Poor (09/10/231009) Stand (Dynamic): Poor (09/10/231009) Patient and or Family Goal(s): to get well and to return home Patient Education Review of Precautions: Safety;Fall (no amb or transfers w/o nursing assist) (09/10/231009) Safety Awareness: Patient verbalizes insight of current deficits;Patient demonstrates carryover of insight during functional tasks;Patient can communicate basic needs (04/29/24 1010) Barriers to learning: Medical Status (09/10/23 101) Method of Education: Verbalized to patient;Verbalized to family/caregiver;Patient demonstrated task(09/10/231009) Topic of Education: Safety with mobility, Goals/plan of care, Use of assistive device, and Fall prevention Method of Education: Verbal discussion and explanation provided to pt and spouse: verbalized understanding and or agreement of this information Treatment Provided: Therapeutic Activities 12 minutes: bed mobility training transfer training Gait training 5 minutes: gait training w/ rolling walker and mod A 1 to mod A 2 Neuromuscular Re-education 11 minutes: balance and postural retraining: static sitting EOB w/ assistance ranging from mod A 1 to CGA 1 to maintain balance, static standing at rolling walker w/ mod A 1 to mod A 2 for trunk support Evaluation Moderate Complexity 13 minutes - 07189: Patient was cooperative, pleasant, motivated, and alert during treatment session. Moderate complexity evaluation performed and 1-2 personal factors or comorbidities were identified that will impact plan of care, including multiple steps at home andhistory of C- Spine fracture w/ incomplete and chronic quadriplegia, recent subdural/subarachnoid hemorrhage. Patient presents with limitations in strength, bed mobility, transfers, gait, elevations, balance, endurance, and safety, which will impact plan of care. These limitations will be addressed by the goals set for this patient. Alarm Status Patient positioned in: Chair (juarez secure, spouse w/ pt, waffle cushion on chair) (09/10/23 101) With: Pressure pad alarm intact and functioning and call kebede in reach (09/10/231009) Treatment Status: Treatment at bedside (09/10/23 101) Goals: Demonstrate Bed Mobility with: Supine to Sit: minimal assistance (pt does 75%) Sit to supine: minimal assistance (pt does 75%) Demonstrate Transfers with: Sit to stand: minimal assistance (pt does 75%) Stand to sit: minimal assistance (pt does 75%) Bed to chair: minimal assistance (pt does 75%) Chair to bed: minimal assistance (pt does 75%) Demonstrate Ambulation: assistive device: rolling walker distance in feet: 50 or greater level of assistance on level surface: minimal assistance (pt does 75%) Curb negotiation (if discharged home): w/ rolling walker and min A 1 Increase Safety: w/ functional mobility Time Frame: 10 sessions Assessment: Pt presents w/ deficits in strength, balance, endurance and functional mobility w/ pt requiring mod A 1 to 2 for transfers and amb w/ rolling walker, AM PAC 8 and is not safe to transfer or amb without assistance. At discharge would consider post acute care services which may include home health, [facility], outpatient therapy or in pt rehab. The level of care will be determined in collaboration with the patient, family/caregiver and care team members. Skilled PT at [facility] is warranted to address deficits in strength, endurance, balance and functional mobility and to continue to assess discharge needs. Deficits requiring P.T. treatment needs: Safety;Mobility;Balance;Weakness;Endurance (09/10/23 1010) Equipment Needs: Equipment needs: Hospital bed;Bedside commode (would consider hospital bed and bedside commode if discharged home at current level of function) (09/10/23 1010) Treatment Plan: Bed mobility training, Transfer training, Gait training, Elevation training (if discharged to home), Strengthening exercises: B LE, Balance activities, and Educate on safety with functional mobility Anticipated Frequency (on eval): 3 to 5 times per week (09/10/23 1010) AM PAC Score with Stairs: 11 * Felecia Kwok Chief Executive - 09/09/2023 3:50 PM EDTAssociated Order(s): CARE MANAGEMENT CONSULT IP See ancillary CM note. documented in this encounter Nursing Notes * Leonarda Herbert RN - 09/11/2023 9:08 AM EDT Patient is up in bed denies any discomfort and is tolerating breakfast. Dr. Paez is in to see patient. Medications are given. No needs identified. * Tanvi Casiano LPN - 09/10/2023 11:03 PM EDT 192: Report received from Vishal YANG and care assumed. Patient resting in bed watching TV. Immediate needs met, call kebede within reach, use reinforced, bed alarm on. 2006: Shift assessment completed. Patient A&O x 4, calm cooperative and pleasant with care. Denies pain or dyspnea. See flowsheets for complete details. Immediate needs met, call kebede within reach and use reinforced. 2110: PM med pass completed including PRN tylenol for 3/10 pain at [facility]. See MAR for complete details. Patient took whole with water without difficulty. Immediate needs met, call kebede within reach and use reinforced. 0635: Patient did well throughout this shift. No complaints throughout the night. He appeared to rest well throughout the shift. Needs met, call kebede within reach and use reinforced. 704: Bedside shift report completed with Mirta YANG to assume care. Patient resting comfortably with eyes closed. Call kebede within reach and use reinforced. * Maricruz Rankin RN - 09/10/2023 6:53 PM EDT IV removed d/t leaking. Per Dr.Varela vogel to not have an IV. * Tanvi Casiano LPN - 09/09/2023 9:33 PM EDT 1909: Report received from Mirta YANG and care assumed. Patient resting in bed. Call kebede within reach, use reinforced, bed alarm on. 2045: Shift assessment completed. Patient A&O x 4, calm cooperative and pleasant with care, denies pain or dyspnea at this time. See flowsheets for complete details. Immediate needs met call bellwithin reach and use reinforced. 2157: PM med pass completed. See MAR for complete details. Patient took medications whole in water without difficulty. Immediate needs met, call kebede within reach and use reinforced, bed alarm on. 2252: PRN tylenol administered for generalized pain, see MAR for complete details. Patient took whole with water without difficulty. Immediate needs met, call kebede within reach and use reinforced. Bed Alarm on. 0635: Patient did well throughout this shift. Call kebede within reach and use reinforced. * Leonarda Herbert RN - 09/09/2023 3:20 PM EDT Dual Licensed Skin Assessment completed by M.Singer YANG and Clara YANG. The patient is/has a N/A Skin Breakdown (includes non blanchable erythema): Yes. Wound Type: Skin tear, location left arm Wound Ostomy Nurse Notified: Yes - notified via wound care protocol Nursing interventions: measured, bacitracin and covered. Left side of his head is 12 kyler. * Leonarda Herbert RN - 09/09/2023 8:30 AM EDT Patient arrived via stretcher and is transferred to bed. He is alert and oriented X4 denies any pain or sob. Juarez catheter is in place draining yellow urine. Skin assessment completed. He is set up to eat and his is at the bedside. documented in this encounter ED Notes * Gilma Heath DO - 09/09/2023 5:17 AM EDT HISTORY OF PRESENT ILLNESS Lewis Alarcon is a 72 year old male who presents to the ED for evaluation of Fall. The patient wasseen at 09/09/23 0512. Patient is a 72-year-old male who presents with a chief complaint of a fall.He arrives via EMS from home. He is past medical history diabetes, hyperlipidemia, hypertension, DVT. The patient had a recent admission to [facility] following a fall and intracranial hemorrhage. He was taken off of his blood thinner at that time. He was discharged from the hospital a couple of days ago but the states that ever since he was discharged from [place] he has been declining and been weaker. She was concerned about him coming home and he needs to go to rehab. They do have at home rehab but has not yet begun. This evening she was trying to transfer him from the chair to a bedside commode when his legs were weak and gave out on him. She lowered him to the ground he did not hit his head or lose consciousness. The patient has no pain. The states that he was too weak to keep at home and she feels this is safety hazard. He was brought in for evaluation. History provided by: patient and spouse calculus tutor used: No Alert type: Adult Trauma - Level 1 Trauma Evaluation: Pre-hospital notification: Yes Mechanism of injury: fall Time since injury: 1 hour Arrival method: Ambulance Primary survey: airway normal, breath sounds normal, equal chest rise, pulses present in all extremities, no active bleeding and no focal deficit Cervical spine assessment: cleared by [facility] Chest x-ray preliminary findings: Negative Pelvis x-ray preliminary findings: Negative E-FAST findings: Not indicated Trauma Mechanism of injury: Fall Current symptoms: Associated symptoms: Denies abdominal pain, back pain, chest pain, headache, nausea, neck pain and vomiting. Review of Systems Constitutional: Positive for fatigue. Negative for chills and fever. HENT: Negative for congestion, rhinorrhea, sinus pressure, sinus pain, sneezing and sore throat. Eyes: Negative for photophobia and visual disturbance. Respiratory: Negative for cough, shortness of breath and wheezing. Cardiovascular: Negative for chest pain and palpitations. Gastrointestinal: Negative for abdominal pain, constipation, diarrhea, nausea and vomiting. Genitourinary: Negative for decreased urine volume and hematuria. Musculoskeletal: Negative for back pain, neck pain and neck stiffness. Skin: Negative for rash and wound. Neurological: Positive for weakness. Negative for dizziness, light-headedness and headaches. The patient's allergies, past history, and medications were reviewed. PHYSICAL EXAM Initial Vitals (see all): BP 151/89 | Pulse 81 | Resp 18 | Temp 97.5 | O2 99 %Weight 79.38 kg | Height 175.3 cm | BMI 25.84 kg/m2 Initial Pain Assessment (see all): 0 (no pain)/10 ([facility] Adult Scale 0-10) Physical Exam Constitutional: General: He is not in acute distress. Appearance: He is not toxic-appearing. HENT: Head: Normocephalic. Comments: Patient does have kyler to the left posterior parietal region from recent fall and suture repair. Dried blood surrounding. Nose: Nose normal. Mouth/Throat: Mouth: Mucous membranes are moist. Eyes: General: No scleral icterus. Pupils: Pupils are equal, round, and reactive to light. Comments: Pupils are 4 mm reactive bilaterally. Neck: Comments: No midline spinous process tenderness palpation. Cardiovascular: Rate and Rhythm: Normal rate. Heart sounds: No murmur heard. No gallop. Pulmonary: Effort: No respiratory distress. Breath sounds: Normal breath sounds. No wheezing. Comments: Clear breath sounds in all lung zapata. No acute respiratory distress. Pulse ox 98% on room air. No chest wall tenderness palpation or crepitance. Abdominal: General: There is no distension. Palpations: Abdomen is soft. Tenderness: There is no abdominal tenderness. Comments: No abdominal tenderness palpation. Abdomen is soft and nondistended. No guarding or rigidity. Musculoskeletal: General: No swelling or deformity. Normal range of motion. Cervical back: No rigidity. Lymphadenopathy: Cervical: No cervical adenopathy. Skin: General: Skin is warm. Capillary Refill: Capillary refill takes less than 2 seconds. Coloration: Skin is not jaundiced. Findings: No bruising. Neurological: Mental Status: He is alert. Mental status is at baseline. Cranial Nerves: No cranial nerve deficit. Motor: No weakness. Comments: Patient is at baseline mental status. No new neurological deficit. PROCEDURES AND TREATMENTS ED Orders | ED Results MEDICAL DECISION MAKING Nursing notes and vital signs were reviewed. ED Course as of 09/09/23 0745 Sun Sep 09, 2023 0742 Spoke with the hospitalist team they are in agreement with admission. [MS] ED Course User Index [MS] Gilma Heath DO Patient is a 72-year-old male who presents a chief complaint of a fall. He was recently discharged from [place] after an intracranial hemorrhage secondary to a fall. He was discontinued on his Coumadin but he has been increasingly weak at home so he had is legs gave out from underneath him earlier today. Patient had repeat trauma scans they were all negative. No new abnormality seen on labs but he is not safe to go home and needs rehab placement. We will likely be unable to place him on the weekend so I will reach out to the hospitalist team and they are in agreement with admission. Amount and/or Complexity of Data Reviewed Independent Historian: spouse Labs: ordered. Radiology: ordered. ECG/medicine tests: ordered. Risk Prescription drug management. Decision regarding hospitalization. Clinical Impressions Fall, initial encounter Generalized weakness Electrolyte abnormality Disposition Admitted. I discussed the management of this patient with the admitting provider and I made a decision to admit the patient. Admission Order Ordered Status . 09/09/23 0743 Assign to Observation ONCE Ordered Gilma Heath * Carmela Amin, TREY - 09/09/2023 5:16 AM EDT [facility] S Report: Pt is from home with his . EMS reports that tonight the pt was transferring from his bed to the wheelchair and fell to thee ground. Pt is unsure if he hit his head, denies LOC. Pt is on Coumadin. Pt was seen in the ED 9 days ago following a fall and was transferred to [place] for a head bleed. C-spine cleared by Dr. Heath, for no c-collar. documented in this encounter Miscellaneous Notes * Ancillary Progress Note - Emily German RN - 09/11/2023 2:43 PM EDT CARE MANAGEMENT - ADULT DISCHARGE NOTE [facility] [id number] Name: Lewis Alarcon Location: [facility] [id number] Date: 09/11/2023 Time: 2:43 PM The following coordination of care and discharge plan has been coordinated with the care team, patient, family and/or caregiver according to the patients needs and preferences. Discharge Discharge Was Caregiver/Family/Facility contacted regarding discharge: Yes (09/11/23 1400) Discharge Transportation: Wheelchair Van ([facility]) (09/11/23 1400) Date of scheduled discharge transportation: 09/11/23 (09/11/23 1400) Time of scheduled discharge transportation: 1530 (09/11/23 1400) Patient declined post-hospital transition of care recommendation: N/A (09/11/23 1400) Final Discharge Plan (Complete only at time of Discharge): IP Rehab ([facility]) (09/11/23 1400) Destination - Admitted Since 09/09/2023 Service Provider Selected Services Address Phone Fax Patient Preferred Last Updated [facility] [address] [place] [phone] -- Emily German, RN 09/11/2023 1440 Narrative: Patient discharged to [facility] for rehab. * Pt Handout (on AVS) - Ramona Jean RN - 09/11/2023 1:27 PM EDT Images from the original note were not included. [id number] Levetiracetam Oral Tablet Brands: KeLeeroy douglas Uses For seizures. Instructions Swallow the medicine without crushing or [...] about all medicines taken. Include prescription and ylrl-fsh-eluqphh medicines, vitamins, and herbal medicines. Speak with your doctor or pharmacist before starting or stopping any medicine. Contact your doctor if your seizures do not improve or worsen while on this medicine. If you need to stop this medicine, your doctor may wish to gradually reduce the dosage before stopping. Keep all appointments for medical exams and tests while on this medicine. Cautions Tell your doctor and pharmacist if you ever had an allergic reaction to a medicine. Do not use the medication any more than instructed. Your ability to stay alert or to react quickly may be impaired by this medicine. Do not drive or operate machinery until you know how this medicine will affect you. Please check with your doctor before drinking alcohol while on this medicine. Family should check on the patient often. Call the doctor if patient becomes more depressed, has thoughts of suicide, or shows changes in behavior. Tell the doctor or pharmacist if you are , planning to be , or . Always carry an ID card or wear a medical alert bracelet indicating your medical condition. Do not share this medicine with anyone who has not been prescribed this medicine. Some patients have serious side effects from this medicine. Ask your pharmacist to show you the information from the Food and Drug Administration (FDA) and discuss it with you. Side Effects The following is a list of some common side effects from this medicine. Please speak with your doctor about what you should do if you experience these or other side effects. dizziness or drowsiness lack of energy and tiredness weakness Call your doctor or get medical help right away if you notice any of these more serious side effects: agitated feeling or trouble sleeping bleeding or bruising confusion depression or feeling sad fever rapid heartbeat mood changes pale or blue skin, lips or fingernails rapid breathing suicidal thoughts swelling in the neck or throat unsteadiness while walking A few people may have an allergic reaction to this medicine. Symptoms can include difficulty breathing, skin rash, itching, swelling, or severe dizziness. If you notice any of these symptoms, seek medical help quickly. Extra Please speak with your doctor, nurse, or pharmacist if you have any questions about this medicine. [email or web address] IMPORTANT NOTE: This document tells you briefly how to take your medicine, but it does not tell youall there is to know about it. Your doctor or pharmacist may give you other documents about your medicine. Please talk to them if you have any questions. Always follow their advice. There is a more complete description of this medicine available in [place]. Scan this code on your smartphone or tablet or use the web address below. You can also ask your pharmacist for a printout. If you have any questions, please ask your pharmacist. The display and use of this drug information is subject to Terms of Use. Copyright(c) 2023 [employer]. All rights reserved. This information is not intended as a substitute for professional medical care. Always follow your healthcare professional's instructions. * Pt Handout (on AVS) - Ramona Jean RN - 09/11/2023 1:27 PM EDT Images from the original note were not included. [id number] Tamsulosin Oral Capsule Brands: Flomax Uses This [...] about all medicines taken. Include prescription and ohmn-nts-xcpgzsa medicines, vitamins, and herbal medicines. Speak with [...] you have any questions about this medicine. [email or web address] IMPORTANT NOTE: This document tells you briefly how to take your medicine, but it does not tell youall there is to know about it. Your doctor or pharmacist may give you other documents about your medicine. Please talk to them if you have any questions. Always follow their advice. There is a more complete description of this medicine available in [place]. Scan this code on your smartphone or tablet or use the web address below. You can also ask your pharmacist for a printout. If you have any questions, please ask your pharmacist. The display and use of this drug information is subject to Terms of Use. Copyright(c) 2023 [employer]. All rights reserved. This information is not intended as a substitute for professional medical care. Always follow your healthcare professional's instructions. * Pt Handout (on AVS) - Ramona Jean RN - 09/11/2023 1:23 PM EDT [id number] Weakness or Fatigue with Uncertain Cause Weakness and fatigue are different conditions. Sometimes, people think they're weak, when in reality, they are fatigued. It's important to understand the difference between weakness and fatigue, so that you can get the right help for how you're feeling. Weakness. This is when your muscles aren't as strong as they should be. It can develop quickly or slowly over time. It may affect all of the muscles in the body (generalized weakness) or only one part of the body. Some causes of generalized weakness include a decrease in physical fitness, loss of muscle tissue from long periods of inactivity, abnormal electrolyte levels, and use of certain medicines, such as corticosteroids. Some causes of weakness in specific muscles include strokes, nerve damage, an injured disk in the spine, and neurological disorders, such as multiple sclerosis. Symptoms of weakness depend on which muscles are affected. Fatigue. This is when you feel really tired, worn out, or low on energy. It's when you feel a strong need to rest or have so little energy that doing any activity is difficult. It can happen if you're too active or not active enough, stressed, don't get enough good quality sleep, or have an unhealthy diet. Other causes of fatigue include viral infections, emotional problems, especially depression, and severe illnesses, such as heart failure and cancer. Side effects from medicine may also cause fatigue. Fatigue is usually a sign that something else might be going on. Based on your exam today, the exact cause of your symptoms is not clear. But your symptoms do not seem to be a sign of a serious illness at this time. Keep an eye on your symptoms and get medical advice as directed below. Home care Rest at home today. Don't overexert yourself. Take any medicine as prescribed. For the next few days, drink extra fluids unless your healthcare provider wants you to restrict fluids for other reasons. Don't skip meals. Unless otherwise directed, continue to take any prescription medicines. Contact your healthcare provider if you have any questions or concerns. Follow-up care Follow up with your healthcare provider, or as advised. When to get medical advice Call your healthcare provider right away if any of the following occur: Symptoms get worse or new symptoms develop Symptoms don't start getting better within 2 days You have night sweats You have swollen lymph nodes You have pain Fever of 100.4 F (38 C) or higher, or as directed by your healthcare provider Call 911 Call 911 if any of the following occur: Pain in the chest, arm, neck, jaw, or upper back Trouble breathing Numbness or weakness of the face, one arm, or one leg Slurred speech, confusion, or trouble speaking, walking, or seeing Blood in vomit or stool (black or red color) Severe headache Loss of consciousness, such as fainting Loss of the ability to walk Weakness that becomes severe over a few days or less Difficulty raising the head while lying down Last Reviewed Date: 2022 0962-3886 [employer]. All rights reserved. This information is not intended as a substitute for professional medical care. Always follow your healthcare professional's instructions. * Pt Handout (on AVS) - Ramona Jean RN - 09/11/2023 1:23 PM EDT Images from the original note were not included. [id number] Recurrent Seizure (Adult) You have had another seizure today. A common cause of seizures that keep happening (recurrent seizures) is missing doses of seizure medicine. But sometimes seizures are hard to control even when you take the medicine correctly. If this is the case for you, your healthcare provider may need to increase your dosage. Or you may need to add or change to another medicine. Home care Follow these tips when caring for yourself at home. Seizures aren?t predictable. So don't do anything that might cause danger to you or other peopleif you have another seizure. Until the seizures are under good control, take these safety steps: o Don?t drive, ride a motorcycle, or ride a bike. o Don?t operate dangerous equipment such as power tools. o Take showers instead of baths. o Don?t swim or climb ladders, trees, or roofs. Tell your close friends and relatives about your seizure. Teach them what to do for you if it happens again. If medicine was prescribed to prevent seizures, take it exactly as directed. Missing doses will increase the risk of having another seizure. If you miss a dose, take the missed dose as soon as you remember. If it's almost time for your next dose, skip the missed dose. Restart the medicine at your next scheduled time. Don?t take extra medicine to make up for the missed dose. Wear a "Medic-Alert" bracelet to let emergency staff know about your condition. Follow a regular sleep schedule so that you get at least 6 to 8 hours of restful sleep every night. This is especially important when you're sick with a cold or flu or another type of infection. Alcohol and illegal drugs can cause you to have more seizures. Ask your provider if you are allowed to drink any alcohol at all. For future seizures, if you're alone: If you feel a seizure coming on, lie down on a bed or on the floor with something soft under your head. This will keep you from falling. Lie on your left side, not on your back. This will let fluid drain out of your mouth and prevent choking. Be sure you are clear of any objects that might injure you during the seizure. Call for help if there is time. For future seizures, if someone is with you: The person should help you get into a safe position and call for help. The person shouldn?t try to force anything in your mouth once the seizure begins. This could harm your teeth or jaw. Follow-up care Follow up with your healthcare provider. Keep a seizure calendar to record how often you have a seizure. If you're being started on anti-seizure medicine, ask your provider if you need additional control. Seizure medicine can affect how well control pills work, and you could become . Some women who take seizure medicine also need certain vitamins. Tell your provider if you plan on getting or if you become . Don't drink alcohol until your provider tells you it?s OK. Each state has different laws that say when someone with seizures is allowed to drive. Some states require that a seizure disorder to be reported to the state. They don't allow you to drive until your seizures are controlled. Talk with your provider to see if this applies to you. Important Don't drive until you've followed up with your healthcare provider and you've been cleared to drive. When to get medical care Call your healthcare provider right away if any of these occur: Seizures happen more often or last longer than normal A seizure lasts more than 5 minutes You don?t wake up between seizures Confusion that lasts more than 30 minutes after a seizure Injury during a seizure Fever of 100.4F (38.0C) or higher, or as advised by your provider Unusual grouchiness, drowsiness, or confusion Stiff or painful neck Headache that gets worse Last Reviewed Date: 09/11/202119993932-3037 [employer]. All rights reserved. This information is not intended as a substitute for professional medical care. Always follow your healthcare professional's instructions. * Inpatient Ask-A-Doc - Troy Ortiz DO - 09/11/2023 11:49 AM EDT ASK-A-DOC Inpatient Note [facility] [address] Name: Lewis Alarcon Location: [facility] 4B-4010/D Date: 09/11/2023 Time: 11:49 AM Date of Response: 09/11/2023 Assessment: Recommend continue Keppra for at least 7-14 days if it was only prescribed due to a traumatic braininjury Continue to hold full anticoagulation, ASA, NSAIDs & antiplatelet medications Recommend follow up CT brain 2-3 weeks after initial hemorrhage Stat CT brain for any acute neurological decline Recommendations: Please consider the following: See above Time spent: 15 minutes * Pt Handout (on AVS) - Ramona Jean RN - 09/11/2023 11:23 AM EDT [id number] Weakness or Fatigue with Uncertain Cause Weakness and fatigue are different conditions. Sometimes, people think they're weak, when in reality, they are fatigued. It's important to understand the difference between weakness and fatigue, so that you can get the right help for how you're feeling. Weakness. This is when your muscles aren't as strong as they should be. It can develop quickly or slowly over time. It may affect all of the muscles in the body (generalized weakness) or only one part of the body. Some causes of generalized weakness include a decrease in physical fitness, loss of muscle tissue from long periods of inactivity, abnormal electrolyte levels, and use of certain medicines, such as corticosteroids. Some causes of weakness in specific muscles include strokes, nerve damage, an injured disk in the spine, and neurological disorders, such as multiple sclerosis. Symptoms of weakness depend on which muscles are affected. Fatigue. This is when you feel really tired, worn out, or low on energy. It's when you feel a strong need to rest or have so little energy that doing any activity is difficult. It can happen if you're too active or not active enough, stressed, don't get enough good quality sleep, or have an unhealthy diet. Other causes of fatigue include viral infections, emotional problems, especially depression, and severe illnesses, such as heart failure and cancer. Side effects from medicine may also cause fatigue. Fatigue is usually a sign that something else might be going on. Based on your exam today, the exact cause of your symptoms is not clear. But your symptoms do not seem to be a sign of a serious illness at this time. Keep an eye on your symptoms and get medical advice as directed below. Home care Rest at home today. Don't overexert yourself. Take any medicine as prescribed. For the next few days, drink extra fluids unless your healthcare provider wants you to restrict fluids for other reasons. Don't skip meals. Unless otherwise directed, continue to take any prescription medicines. Contact your healthcare provider if you have any questions or concerns. Follow-up care Follow up with your healthcare provider, or as advised. When to get medical advice Call your healthcare provider right away if any of the following occur: Symptoms get worse or new symptoms develop Symptoms don't start getting better within 2 days You have night sweats You have swollen lymph nodes You have pain Fever of 100.4 F (38 C) or higher, or as directed by your healthcare provider Call 911 Call 911 if any of the following occur: Pain in the chest, arm, neck, jaw, or upper back Trouble breathing Numbness or weakness of the face, one arm, or one leg Slurred speech, confusion, or trouble speaking, walking, or seeing Blood in vomit or stool (black or red color) Severe headache Loss of consciousness, such as fainting Loss of the ability to walk Weakness that becomes severe over a few days or less Difficulty raising the head while lying down Last Reviewed Date: 05/14/202219996006-4663 [employer]. All rights reserved. This information is not intended as a substitute for professional medical care. Always follow your healthcare professional's instructions. * Ancillary Progress Note - Mayra Ashley PTA - 09/11/2023 11:10 AM EDT PROGRESS NOTE - Physical Therapy [facility] [address] [place] [address] Name: Lewis Alarcon Location: [facility] 4B-4010/D Date: 09/11/2023 Time: 12:23 PM Lewis Alarcon is a/an 72 year old male. Patient Status: Observation Insurance: Payor: MEDICARE Plan: MEDICARE A AND B Product Type: *No Product type* Payor: AARP Plan: AARP Product Type: *No Product type* Patient Seen: at bedside, nursing cleared patient for therapy Patient Identified By: Name, ID Band and Date Diagnosis: Gait dysfunction, s/p fall, recent acute sub dural and subarachnoid hemorrhage () Status of treatment: Treatment completed (09/11/231109) Orders: OOB (09/11/231109) Weight Bearing Status: Weight bearing as tolerated (09/11/231109) Precautions: Alarms;Falls;Safety (09/11/231109) Total Treatment Time--free text: 30 (09/11/231109) Subjective: Will sit up in chair for a while. Transferring to [facility] this afternoon Pain: No complaints of pain P.T. Bed Mobility Roll (Left): Moderate Assistance (09/11/231109) Supine-Sit: Moderate Assistance (09/11/231109) Transfers Sit-Stand: Moderate Assistance (09/11/231109) Stand-Sit: Minimal Assistance (09/11/231109) W/C-Bed/Mat: Moderate Assistance (09/11/231109) Ambulation: Distance ambulated (feet): 8 Assistive Device: Rolling walker Assist: Minimal Assistance Balance Sit (Static): Fair (09/11/23 111) Sit (Dynamic): Fair (once sitting for a few minutes) (09/11/231109) Stand (Static): Fair (09/11/231109) Stand (Dynamic): Poor (09/11/231109) Patient and or Family Goal(s): to return home Topic of Education: Safety with mobility and Use of assistive device Method of Education: Demonstrated the above task to pt: demonstrated the exercise and or task Treatment Provided: Therapeutic Activities 30 minutes: bed mobility training transfer training LE exc Alarm Status Patient positioned in: Chair (09/11/23 1110) With: Pressure pad alarm intact and functioning and call kebede in reach (09/11/23 1110) Patient Education Review of Precautions: Safety;Fall (09/11/23 1110) Safety Awareness: Patient verbalizes insight of current deficits (09/11/23 1110) Barriers to learning: Medical Status (09/11/23 1110) Method of Education: Patient demonstrated task (09/11/23 1110) Assessment: Pt agreeable to working with PT this am. Pt supine in bed. Completed BLE in supine. Requires mod A x 1 sup to sit.. Seated balance fair . Needs some extra time and vc's to maintain upright seated balance. Required mod A 1-2 sit to stand to RW. Amb'ed appox 4 ft forward and back then Ganga stand to sit. Mod A STS from chair and stood at walker approx 1 min with wt shifting / marching in place. Pt left up in chair with pressure alarm in place and call light in reach. Deficits requiring P.T. treatment needs: Safety;Mobility;Weakness (09/11/23 1110) Equipment needs: Hospital bed;Bedside commode (would consider hospital bed and bedside commode if discharged home at current level of function) (09/10/23 1010) Plan: Continue with current treatment plan established on evaluation. AM PAC Score with Stairs: 12 * Ancillary Progress Note - Ally Bedoya Chief Executive - 09/10/2023 1:14 PM EDT Spoke with patient and at bedside. They would like a referral be made to [facility] as their first choice. They were also agreeable to [facility] if no accepted by [facility]. Message sent to [facility] on bed availability. Pt [facility]. They can take patient on 09/11/23. Per Pt they are members of [employer] and pay for the extra package for [employer]. She would like [facility] to transport. TT sent to Dr. Paez and charge nurse about patient acceptance. * Hospital Course - Kamille Martel, Medical Student - 09/10/2023 11:19 AM EDT {Hospital Course documentation can easily be pulled into the Discharge Summary by documenting here and using the smartlink in the Discharge Summary template:19640} Patient admitted to the floor for observation. Labs and imaging in the ER were unremarkable with nochanges to non-contrast head CT subarachnoid hemorrhage. PT/OT and care management consulted for rehabilitation status outpatient. He was accepted to [facility] for 09/11/23. Per neurology- Recommend continue Keppra for at least 7-14 days, continue to hold full anticoagulation, ASA, NSAIDs & antip latelet medications. Recommend follow up CT brain 2-3 weeks after initial hemorrhage. Stat CT brainfor any acute neurological decline Patient is hemodynamically stable and cleared for discharge. * Ancillary Progress Note - Felecia Kwok, Chief Executive - 09/09/2023 3:50 PM EDT CARE MANAGEMENT - TRAUMA INITIAL SCREENING [address] [address] Name: Lewis Alarcon Location: [facility] 4B-4010/D Date: 09/09/2023 Time: 6:47 PM Discussed with Trauma and with the interdisciplinary care team. This Unit Director performed a chartreview and met with pt at bedside to complete admission screen and assessed needs for transition planning. The career representative role and services were explained and emotional support was provided. Chief Complaint: Fall Prior Living Arrangements What was your living situation prior to admission/observation?: With Spouse (09/09/231549) Living Quarters: House (09/09/231549) Number of steps to enter living quarters:: around 3 (09/09/231549) How many stories is the dwelling?: One Story (09/09/231549) Prior Level of Functioning Describe the patient's ability prior to admission/observation to perform ADLs: Requires assistance (09/09/231549) Requires assistance with: Bathing;Dressing (09/09/231549) Describe the patient's mobility status prior to admission: Patient requires assistance with ambulation (09/09/231549) Patient uses assistive device: Yes (09/09/231549) If yes, choose:: Walker (09/09/231549) Caregiver Information Patient Contacts Name Relation Home Work Mobile CIARA ALARCON Spouse [phone] Yanelis Lawson Adult Child [phone] Risk Stratification Risk Stratification Psycho Social / Medical Concerns Identified: Adjustment to illness/injury;Multiple Comorbidities (09/09/231549) Accessed [facility] to connect patients to social care resources: No (09/09/231549) OBRA or OPTIONS needed for placement: No (09/09/231549) Readmission Risk Score: 12.65 (09/09/23 1600) AM-PAC Score With Stairs : 11 (09/09/23 0835) Prior to Admission Services Services Prior to Admission INFORMATION TECHNOLOGY TECHNICIAN Services (Services received within the last 30 days with exception, Psych within last two years): Home Health;Durable Medical Equipment (09/09/231549) List All Provider/Service Name: Candido REID- haven't started yet (09/09/231549) Agency contacted: No (09/09/231549) INFORMATION TECHNOLOGY TECHNICIAN Durable Medical Equipment (DME) in home: Walker Rolling;Wheelchair standard;Shower chair/bench;Raised toilet seat (09/09/231549) [place] Dept. of Aging (PDA) Waiver Program: N/A (09/09/231549) INFORMATION TECHNOLOGY TECHNICIAN Transportation (Services received within the last 30 days): Family/Friends Personal Vehicle (09/09/231549) Outpatient Unit Director: Patient Care Team: Yoli Denny, MSN as Truck Car And Bus Cleaner CAGE Questionnaire (Please check the correct response) One positive response to any of these questions indicates a need to perform the MAST questionnaire. (C) Have you ever felt the need to CUT DOWN on drinking? no (A) Have you ever felt ANNOYED by criticism of drinking? no (G) Have you ever had GUILTY FEELINGS about drinking? no (E) Have you ever taken a morning EYE ORGANIZATIONAL DEVELOPMENT MANAGER? no Comments: Pt came to the [facility] ED on 09/09/23 d/t a fall when transferring from the bed to w/c. Pt is observation for ambulatory dysfunction. Pt has consults for PT/OT and CM. Pt is insured by Medicare A&B/ AARP. Pt is KAWV. Pt lives with his spouse in a single story home with around 3 steps to enter. Pt requires assistance with showering and dressing. Pt requires assistance with ambulation and rw. Pt has a rw, w/c, shower chair, raised toilet seat. Pt's spouse provides transportation. Pt voicing that [facility] is supposed to be starting tomorrow. CM and pt discussed discharge planning and pt is open to SNF. CM explained KACO and approved list of facilities on the [facility] list. Pt voicing that he doesn't have a preference, but would like to remain close to home if possible. Patient/Family Expectations: SNF For further screening information, please refer to the Care Management flow document. * Pt Handout (on AVS) - Felecia Donaldson RN - 09/09/2023 1:34 PM EDT [id number] Fall Prevention Falls often take place due to slipping, tripping, or losing your balance. Millions of people fall every year and injure themselves. Among older adults in the [place] falls are the most common cause of traumatic brain injuries. Every 20 minutes, an older adult dies from a fall. Here are ways to reduceyour risk of falling again: Think about your fall. Was there anything that caused your fall that can be fixed, removed, or replaced? Make your home safe by keeping walkways clear of objects you may trip over, such as electrical cords. Use nonslip pads under rugs. Don't use area rugs or small throw rugs. Use nonslip mats in bathtubs and showers. Hang grab rails by the toilet and inside and outside the shower. Install handrails and lights on staircases. The handrails should be on both sides of the stairs. Use night lights. Don't walk in poorly lit areas. Don't stand on chairs or wobbly ladders. Use care when reaching overhead or looking up. This position can cause a loss of balance. Be sure your shoes fit well, are in good condition, and have nonslip bottoms. Wear shoes both inside and outside of your home. Don't go barefoot or wear slippers. Be cautious when going up and down stairs, curbs, and when walking on uneven sidewalks. If your balance is poor, consider using a cane or walker. Talk with your healthcare provider about having a balance assessment. If your fall was related to alcohol use, stop or limit alcohol intake. Ask your provider for help if you think you may overuse alcohol and can't stop. If your fall was related to use of sleeping medicines, talk with your provider about this. You may need to reduce your dosage at bedtime if you wake up during the night to go to the bathroom. To reduce the need for nighttime bathroom trips: o Don't drink fluids for several hours before going to bed o Empty your bladder before going to bed o Men can keep a urinal at the bedside Stay as active as you can. Balance, flexibility, strength, and endurance all come from exercise.They all play a role in preventing falls. Ask your provider which types of activity are right for you. Try to do some type of exercise every day. Get your eyes checked once a year or more often if your vision changes If you have pets, know where they are before you stand up or walk so you don't trip over them. Go over all your medicines with a pharmacist or other provider. This is to see if any of them could make you more likely to fall. Have this type of medicine review at least once every year. If your provider advises a new medicine, ask if the side effects will affect your balance. Don't move quickly from one position to another. For instance, don't stand up fast from sitting.This can cause dizziness and may lead to a fall. Sit down when putting on pants, socks, and shoes. This will make you less likely to lose your balance and fall. Always let your provider know if you have fallen since your last visit. Contact your provider right away if you're having balance problems or falling more often. Last Reviewed Date: 05/14/202119990098-1308 [employer]. All rights reserved. This information is not intended as a substitute for professional medical care. Always follow your healthcare professional's instructions. * Medical Necessity - Brianna Giron RN - 09/09/2023 8:09 AM EDT AdmissionCare Guideline: General Observation, Observation Based [...] by 1 or more ofthe following: - Musculoskeletal condition or finding (eg, injury, dislocation, fracture, suspected joint or bone infection, trauma, exacerbation of rheumatologic disease, suspected rhabdomyolysis, suspected compartment syndrome, frostbite) Additional Information: Recent stay at outside hospital. Has had increasing weakness since returning home. Home health rehab has not started yet. This evening his was trying to transfer him from the chair to a bedside commode when his legs were weak and gave out on him. His states that he was too weak to keep at home and she feels this is safety hazard. He was brought in for evaluation. AdmissionCare documentation entered by: Brianna Giron [facility], 27th edition, Copyright 2022 [facility], [employer] All Rights Reserved. [id number]:09:23-04:00 Solely for purpose of utilization review and payment; not a diagnostic tool documented in this encounter Plan of Treatment Upcoming Encounters Date Type Department Care Team (Late st Contact Info) Description 09/12/2023 5:40 AM EDT Laboratory Lab [facility] [address] [facility] [address] [facility] [place] [place] [address] Arrived 09/12/2023 5:50 PM EDT Anticoagulation Pharmacy, [address] [place] [id number] Pharmacist2, [facility] [place] [address] [place] [id number] 09/21/2023 9:00 AM EDT Nurse Only Ashwini Aleida RinaldiRolo [address] [place] [address] [place] [address] Rolo, Nurse Ashwini Boogie RN [address] [place] [address] 10/22/2023 9:15 AM EDT Office Visit Peytonstephen RinaldiRolo [address] [place] [address] [place] [address] Bert Boogie Jr., MD [address] [place] [address] [facility] [address] 01/21/2024 2:00 PM EDT Office Visit Endocrinology, [place] [address] [place] [address] Sakina Jones MD [address] [place] [address] 01/25/2024 3:30 PM EDT Office Visit [facility] [address] [place] [address] Laney Hogue MD [address] [place] [address] 02/25/2024 9:20 AM EDT Office Visit Family [facility], [place] [address] [place] [phone] Kaiser Amanda MD [address] [place] [address] Scheduled Orders Name Type Priority Associated Diagnoses Orde r Schedule EKG EKG STAT Electrolyte abnormality One Time for 1 Occurrences starting 09/09/2023 until 09/09/2023 Scheduled Procedures Name Priority Associated Diagnoses Date/Ti me COLONOSCOPY FLEXIBLE PROXIMA L DIAGNOSTIC Recall History of colonic polyps Scheduled Referrals Name Type Priority Associated Diagnoses Orde r Schedule NEUROLOGY REFERRAL OP Referral Within 10 days (routine) Subdural hematoma (HCC) Ordered: 09/11/2023 Health Maintenance Due Date Last Done Comments [...] 0 06/09/2022, 04/11/2021, Additional history exists GFR 09/10/2024 09/11/2023, 04/2 01/2024, 09/09/2023, Additional history exists DXA Scan 01/25/2025 01/25/2023, [...] D LEVEL ONCE IN A LIFETIME-USE SMARTSET# [id number] Completed 07/26/2023, 02/26/2023, 01/23/2023, Additional history exists [...] this encounter Medical Devices Implanted Type Area Band Sawing Machine Operator Device Identifier Shelf Expiration Date Model / Serial / Lot Cement Bone Simplex Hv & G - [id number] Implanted:Qty: 2 on 09/02/2020 by Gianni Hubbard MD at OR [facility] Right: Hip LUDY : [employer] 08/11/2021 [id number] / / [id number] Spacer Ring Aclde Distal Lg 14 - [id number] Implanted:Qty: 1 on 09/02/2020 by Gianni Hubbard MD at OR [facility] Right: Hip [employer]UD[employer] : [employer] 11/25/2024 [id number] / / Accolade C Cs 127 6 37/158 - [id number] Implanted:Qty: 1 on 09/02/2020 by Gianni Hubbard MD at OR [facility] Right: Hip LUD[employer] : OR[employer] 05/29/2023 [id number] / / [id number] Hip Cocr Lfit Head V40 28/+4 - [id number] Implanted:Qty: 1 on 09/02/2020 by Gianni Hubbard MD at OR [facility] Right: Hip [employer] : [employer] 11/15/2024 [id number] / / [id number] Hip Head Bipol Uhr Uni 28x52 - [id number] Implanted:Qty: 1 on 09/02/2020 by Gianni Hubbard MD at OR [facility] Right: Hip [employer] : [employer] 11/25/2024 [id number] / / [id number] Lens Intraoc 17.5 - [id number] - [id number] Implanted:Qty: 1 on 03/23/2022 by Rad Morgan MD at OR [facility] Left: Eye [employer] 10/11/2026 [id number] / [id number] / [id number] Lens Intraoc 18.0 - [id number] - [id number] Implanted:Qty: 1 on 03/30/2022 by Rad Morgan MD at OR [facility] Right: Eye [employer] 01/11/2027 [id number] / [id number] / [id number] documented as of this encounter Procedures Procedure Name Priority Date/Time Associated Diagnosis Comments GLUCOSE METER, POINT OF CARE MARVA 09/11/2023 11:37 AM EDT GLUCOSE METER, POINT OF CARE MARVA 09/11/2023 7:13 AM EDT COMPREHENSIVE METABOLIC PANEL Routine 09/11/2023 6:42 AM EDT CBC Routine 09/11/2023 6:42 AM EDT GLUCOSE METER, POINT OF CARE [facility] 09/10/2023 9:06 PM EDT GLUCOSE METER, POINT OF CARE MARVA 09/10/2023 4:28 PM EDT GLUCOSE METER, POINT OF CARE MARVA 09/10/2023 11:45 AM EDT GLUCOSE METER, POINT OF CARE [facility] 09/10/2023 7:44 AM EDT HEPATIC FUNCTION PANEL Add-on 5:47 AM EDT BASIC METABOLIC PANEL Routine 09/10/2023 5:47 AM EDT PHOSPHORUS Routine 09/10/2023 5:47 AM EDT CBC Routine 09/10/2023 5:47 AM EDT MAGNESIUM Routine 09/10/2023 5:47 AM EDT GLUCOSE METER, POINT OF CARE MARVA 09/09/2023 9:45 PM EDT GLUCOSE METER, POINT OF CARE MARVA 09/09/2023 4:42 PM EDT GLUCOSE METER, POINT OF CARE MARVA 09/09/2023 11:38 AM EDT SARS-COV-2 (COVID-19), NAAT STAT 09/09/2023 6:44 AM EDT TOXICOLOGY, URINESCREEN W/ CONFIRMATION STAT 09/09/2023 6:01 AM EDT MICROSCOPIC EXAM, URINE STAT 09/09/2023 6:01 AM EDT URINALYSIS, REFLEX TO MICROSCOPIC STAT 09/09/2023 6:[address] ABD/PELVIS W IV CONTRAST - WO ORAL CONTRAST STAT 09/09/2023 5:[address] C SPINE WO CONTRAST STAT 5:[address] CHEST W CONTRAST STAT 09/09/2023 5 [address] HEAD/BRAIN WO CONTRAST STAT 09/09/2023 5:42 AM EDT XR CHEST 1 VIEW STAT 09/09/2023 5:28 AM EDT XR PELVIS AP VIEW STAT 09/09/2023 5:2 8 AM EDT DIFFERENTIAL, AUTOMATED STAT 09/09/2023 5:21 AM EDT COMPREHENSIVE METABOLIC PANEL STAT 09/09/2023 5:21 AM EDT TYPE AND SCREEN STAT 09/09/2023 5:21 AM EDT CBC STAT 09/09/2023 5:21 AM EDT PT INR STAT 09/09/2023 5:21 AM EDT LACTATE,WHOLE BLOOD STAT 09/09/2023 5 :21 AM EDT ETHANOL, MEDICAL STAT 09/09/2023 5:21 AM EDT CBC STAT 09/09/2023 5:21 AM EDT EXTRA RECINOS TOP Routine 09/09/2023 5:19 AM EDT EXTRA GREEN TOP WITH GEL Routine 09/09/2023 5:19 AM EDT EXTRA TUBES Routine 09/09/2023 5:19 AM EDT documented in this encounter Results * (ABNORMAL) GLUCOSE METER, POINT OF CARE (09/11/2023 11:37 AM EDT) Glucose Meter 211(H) 70 - 120 mg/dL 09/11/2023 11:48 AM EDT [facility] Blood Whole blood specimen / Unknown 09/11/2023 11:37 AM EDT 09/11/2023 11:48 AM EDT Liam Paez MD LAB POINT OF CARE TE ST DOCKED DEVICE UNSOLICITED RESULTS [facility] [address] [place] [address] * (ABNORMAL) GLUCOSE METER, POINT OF CARE (09/11/2023 7:13 AM EDT) Glucose Meter 164(H) 70 - 120 mg/dL 09/11/2023 7:36 AM EDT [facility] Blood Whole blood specimen / Unknown 09/11/2023 7:13 AM EDT 09/11/2023 7:36 AM EDT Liam Paez MD LAB POINT OF CARE TE ST DOCKED DEVICE UNSOLICITED RESULTS [facility] [address] [place] [address] * (ABNORMAL) COMPREHENSIVE METABOLIC PANEL (09/11/2023 6:42 AM EDT) BUN 19 6 - 20 mg/dL 09/11/2023 7:41 AM EDT LABORATORY [facility] Creatinine 1.1 0.6 - 1.2 mg/dL 09/11/2023 7:41 AM EDT LABORATORY [facility] Estimated Glomerular Filtration Rate 71 >=60 mL/min 09/11/2023 7:41 AM EDT LABORATORY [facility] Comment:eGFR is calculated b ased on the CKD-EPI 2020 equation Sodium 139 135 - 146 mmol/L 09/11/2023 7:41 AM EDT LABORATORY [facility] Potassium 4.0 3.5 - 5.1 mmol/L 09/11/2023 7:41 AM EDT LABORATORY [facility] Chloride 101 98 - 107 mmol/L 09/11/2023 7:41 AM EDT LABORATORY [facility] CO2 26 22 - 32 mmol/L 09/11/2023 7:41 AM EDT LABORATORY [facility] Anion Gap 12 7 - 15 mmol/L 09/11/2023 7:41 AM EDT LABORATORY [facility] Glucose 171(H) 70 - 120 mg/dL 09/11/2023 7:41 AM EDT LABORATORY [facility] Albumin 3.5(L) 3.8 - 5.0 g/dL 09/11/2023 7:41 AM EDT LABORATORY [facility] AST 12 10 - 50 U/L 09/11/2023 7:41 AM EDT LABORATORY [facility] Alkaline Phosphatase 60 35 - 130 U/L 09/11/2023 7:41 AM EDT LABORATORY [facility] Bilirubin, Total 0.5 <=1.2 mg/dL 09/11/2023 7:41 AM EDT LAB[facility]ATORY [facility] Calcium 9.5 8.4 - 10.2 mg/dL 09/11/2023 7:41 AM EDT LABORATORY [facility] Protein 6.0 6.0 - 8.3 g/dL 09/11/2023 7:41 AM EDT LABORATORY GL ALT 38 10 - 50 U/L 09/11/2023 7:41 AM EDT LABORATORY GL Blood Venous blood specimen / Unknown Venipuncture / Unknown 09/11/2023 6:42 AM EDT 09/11/2023 7:17 AM EDT Radha Cullen MD LAB BLOOD [facility] Organization Address City/State/ZIP Co de Phone Number LABORATORY [facility] [address] [place] [address] * (ABNORMAL) CBC (09/11/2023 6:42 AM EDT) WBC 6.40 4.00 - 10.80 K/uL 09/11/2023 7:29 AM EDT LABORATORY [facility] RBC 3.51 4.50 - 5.25 M/uL 09/11/2023 7:29 AM EDT LABORATORY GL HGB 10.7(L) 14.0 - 16.8 g/dL 09/11/2023 7:29 AM EDT LABORATORY GL HCT 33.5(L) 40.0 - 48.4 % 09/11/2023 7:29 AM EDT LABORATORY GL MCV 95.4 82.0 - 99.5 fL 09/11/2023 7:29 AM EDT LABORATORY GL MCH 30.5 27.0 - 34.0 pg 09/11/2023 7:29 AM EDT LABORATORY GL MCHC 31.9 32.0 - 36.0 g/dL 09/11/2023 7:29 AM EDT LABORATORY GL RDW 14.3 11.5 - 15.5 % 09/11/2023 7:29 AM EDT LABORATORY GL PLT 174 140 - 400 K/uL 09/11/2023 7:29 AM EDT LABORATORY GL MPV 9.3 6.6 - 11.1 fL 09/11/2023 7:29 AM EDT LABORATORY GL nRBCs 0 <=0 /100 WBCs 09/11/2023 7:29 AM EDT LABORATORY [facility] Blood Venous blood specimen / Unknown Venipuncture / Unknown 09/11/2023 6:42 AM EDT 09/11/2023 7:17 AM EDT Radha Cullen MD LAB BLOOD ORDBree SANTOS LABORATORY [facility] [address], [place] [id number] * (ABNORMAL) GLUCOSE METER, POINT OF CARE (09/10/2023 9:06 PM EDT) Glucose Meter 196(H) 70 - 120 mg/dL 09/10/2023 9:13 PM EDT [facility] Blood Whole blood specimen / Unknown 09/10/2023 9:06 PM EDT 09/10/2023 9:13 PM EDT Liam Paez MD LAB POINT OF CARE TE ST DOCKED DEVICE UNSOLICITED RESULTS Performing Organization Address [facility] Co de Phone Number [facility] [address] [place] [phone] * (ABNORMAL) GLUCOSE METER, POINT OF CARE (09/10/2023 4:28 PM EDT) Glucose Meter 238(H) 70 - 120 mg/dL 09/10/2023 4:31 PM EDT [facility] Blood Whole blood specimen / Unknown 09/10/2023 4:28 PM EDT 09/10/2023 4:31 PM EDT Liam Paez MD LAB POINT OF CARE TE ST DOCKED DEVICE UNSOLICITED RESULTS Performing Organization Address [facility] Co de Phone Number [facility] [address] [place] [phone] * (ABNORMAL) GLUCOSE METER, POINT OF CARE (09/10/2023 11:45 AM EDT) Glucose Meter 303(H) 70 - 120 mg/dL 09/10/2023 11:48 AM EDT [facility] Blood Whole blood specimen / Unknown 09/10/2023 11:45 AM EDT 09/10/2023 11:48 AM EDT Liam Paez MD LAB POINT OF CARE TE ST DOCKED DEVICE UNSOLICITED RESULTS Performing Organization Address City/[facility]/ZIP Co de Phone Number [facility] [address] [facility] [place] [address] * (ABNORMAL) GLUCOSE METER, POINT OF CARE (09/10/2023 7:44 AM EDT) Glucose Meter 140(H) 70 - 120 mg/dL 09/10/2023 7:54 AM EDT [facility] Blood Whole blood specimen / Unknown 09/10/2023 7:44 AM EDT 09/10/2023 7:54 AM EDT Liam Paez MD LAB POINT OF CARE TE ST DOCKED DEVICE UNSOLICITED RESULTS Performing Organization Address [facility] Co de Phone Number [facility] [address] [facility] [place] [address] * (ABNORMAL) HEPATIC FUNCTION PANEL (09/10/2023 5:47 AM EDT) Albumin 3.5(L) 3.8 - 5.0 g/dL 09/10/2023 12:01 PM EDT LABORATORY [facility] AST 22 10 - 50 U/L 09/10/2023 12:01 PM EDT LABORATORY [facility] Alkaline Phosphatase 58 35 - 130 U/L 09/10/2023 12:01 PM EDT LABORATORY [facility] ALT 52(H) 10 - 50 U/L 09/10/2023 12:01 PM EDT LAB[facility]ATORY [facility] Bilirubin, Total 0.4 <=1.2 mg/dL 09/10/2023 12:01 PM EDT LABORATORY [facility] Bilirubin, Direct <0.2 0.0 - 0.3 mg/dL 09/10/2023 12:01 PM EDT LABORATORY [facility] Protein 5.9(L) 6.0 - 8.3 g/dL 09/10/2023 12:01 PM EDT LABORATORY [facility] Blood Venous blood specimen / Unknown Venipuncture / Unknown 09/10/2023 5:47 AM EDT 09/10/2023 5:59 AM EDT Liam Paez MD LAB BLOOD ORDERABLES Performing Organization Address [facility] de Phone Number LABORATORY [address] [address] * PHOSPHORUS (09/10/2023 5:47 AM EDT) Phosphorus 3.4 2.5 - 4.8 mg/dL 09/10/2023 6:21 AM EDT LAB[facility]ATORY [facility] Blood Venous blood specimen / Unknown Venipuncture / Unknown 09/10/2023 5:47 AM EDT 09/10/2023 5:59 AM EDT Sylvie PALACIOS LAB BLOOD ORDERABLES Performing Organization Address [facility] de Phone Number LABORATORY [address] [phone] * (ABNORMAL) MAGNESIUM (09/10/2023 5:47 AM EDT) Magnesium 1.4(L) 1.5 - 2.6 mg/dL 09/10/2023 6:21 AM EDT LABORATORY [facility] Blood Venous blood specimen / Unknown Venipuncture / Unknown 09/10/2023 5:47 AM EDT 09/10/2023 5:59 AM EDT Sylvie PALACIOS LAB BLOOD ORDERABLES Performing Organization Address [facility] de Phone Number LABORATORY [address] [address] * (ABNORMAL) CBC (09/10/2023 5:47 AM EDT) WBC 5.89 4.00 - 10.80 K/uL 09/10/2023 6:10 AM EDT LABORATORY [facility] RBC 3.50 4.50 - 5.25 M/uL 09/10/2023 6:10 AM EDT LABORATORY GL HGB 10.8(L) 14.0 - 16.8 g/dL 09/10/2023 6:10 AM EDT LABORATORY GL HCT 32.9(L) 40.0 - 48.4 % 09/10/2023 6:10 AM EDT LABORATORY GL MCV 94.0 82.0 - 99.5 fL 09/10/2023 6:10 AM EDT LABORATORY GL MCH 30.9 27.0 - 34.0 pg 09/10/2023 6:10 AM EDT LABORATORY GL MCHC 32.8 32.0 - 36.0 g/dL 09/10/2023 6:10 AM EDT LABORATORY [facility] RDW 14.5 11.5 - 15.5 % 09/10/2023 6:10 AM EDT LABORATORY [facility] PLT 170 140 - 400 K/uL 09/10/2023 6:10 AM EDT LABORATORY [facility] MPV 8.9 6.6 - 11.1 fL 09/10/2023 6:10 AM EDT LABORATORY GL nRBCs 0 <=0 /100 WBCs 09/10/2023 6:10 AM EDT LABORATORY [facility] Blood Venous blood specimen / Unknown Venipuncture / Unknown 09/10/2023 5:47 AM EDT 09/10/2023 5:59 AM EDT Sylvie Lars PALACIOS LAB BLOOD ORDERABLES LABORATORY [facility] [address] [place] [address] * (ABNORMAL) BASIC METABOLIC PANEL (09/10/2023 5:47 AM EDT) BUN 18 6 - 20 mg/dL 09/10/2023 6:21 AM EDT LABORATORY GL Creatinine 0.9 0.6 - 1.2 mg/dL 09/10/2023 6:21 AM EDT LABORATORY GL Estimated Glomerular Filtration Rate >90 >=60 mL/min 09/10/2023 6:21 AM EDT LABORATORY [facility] Comment:eGFR is calculated b ased on the CKD-EPI 2020 equation Sodium 143 135 - 146 mmol/L 09/10/2023 6:21 AM EDT LABORATORY [facility] Potassium 3.9 3.5 - 5.1 mmol/L 09/10/2023 6:21 AM EDT LABORATORY [facility] Chloride 107 98 - 107 mmol/L 09/10/2023 6:21 AM EDT LABORATORY [facility] CO2 25 22 - 32 mmol/L 09/10/2023 6:21 AM EDT LABORATORY [facility] Anion Gap 11 7 - 15 mmol/L 09/10/2023 6:21 AM EDT LABORATORY [facility] Glucose 163(H) 70 - 120 mg/dL 09/10/2023 6:21 AM EDT LABORATORY [facility] Calcium 9.2 8.4 - 10.2 mg/dL 09/10/2023 6:21 AM EDT LABORATORY [facility] Blood Venous blood specimen / Unknown Venipuncture / Unknown 09/10/2023 5:47 AM EDT 09/10/2023 5:59 AM EDT Sylvie PALACIOS LAB BLOOD ORDERABLES LAB[facility]ATORY [facility] [address] [place] [address] * (ABNORMAL) GLUCOSE METER, POINT OF CARE (09/09/2023 9:45 PM EDT) Glucose Meter 198(H) 70 - 120 mg/dL 09/10/2023 7:13 AM EDT [facility] Blood Whole blood specimen / Unknown 09/09/2023 9:45 PM EDT 09/10/2023 7:13 AM EDT Liam Paez MD LAB POINT OF CARE TE ST DOCKED DEVICE UNSOLICITED RESULTS Performing Organization Address City/[facility]/ZIP Co de Phone Number [facility] [address] [place] [address] * (ABNORMAL) GLUCOSE METER, POINT OF CARE (09/09/2023 4:42 PM EDT) Glucose Meter 222(H) 70 - 120 mg/dL 09/09/2023 4:59 PM EDT [facility] Blood Whole blood specimen / Unknown 09/09/2023 4:42 PM EDT 09/09/2023 4:59 PM EDT Pau Ashraf MD LAB POINT OF CARE TEST DOCKED DEVICE UNSOLICITED RESULTS Performing Organization Address [facility] Co de Phone Number [facility] [address] [place] [address] * (ABNORMAL) GLUCOSE METER, POINT OF CARE (09/09/2023 11:38 AM EDT) Glucose Meter 282(H) 70 - 120 mg/dL 09/09/2023 12:06 PM EDT [facility] Blood Whole blood specimen / Unknown 09/09/2023 11:38 AM EDT 09/09/2023 12:06 PM EDT Pau Ashraf MD LAB POINT OF CARE TEST DOCKED DEVICE UNSOLICITED RESULTS Performing Organization Address [facility] de Phone Number [facility] [address] [place] [address] * SARS-COV-2 (COVID-19), NAAT (09/09/2023 6:44 AM EDT) SARS-CoV-2 (COVID-19) Result Negative Negative 09/09/2023 8:22 AM EDT LABORATORY [facility] Comment: 2019 Novel Coronavirus not detected. This express test was developed and its performance characteristics determined by [facility]. It has not been cleared or approved by the U.S. Food and Drug Administration (FDA). FDA does not require this test to go thru premarket FDA review. This test is used for clinical purposes. It should not be regarded as investigational or for research. This laboratory is certified under the Clinical Laboratory Improvement Amendments (CLIA) as qualified to perform high complexity clinical laboratory testing. This test is a nucleic acid amplification test (NAAT), a reverse transcriptase polymerase chain reaction (RT-PCR) test, or a Centers for Disease Control- acceptable equivalent. The test is performed in a high complexity Clinical Laboratory Improvement Amendments-(CLIA) certified laboratory. The test is acceptable for SARS-CoV-2 diagnosis, surveillance, and travel within the [place] and to most countries. Please check with local testing authorities about requirements before travel. The validation of bronchial specimens, tracheal aspirates, and sputum for this assay was developed and performance characteristics determined by [facility]. The validation of alternate specimen types has not been cleared or approved by the U.S. Food and Drug Administration (FDA). It has been determined that such clearance is not necessary. Upper Respiratory Mid-turbinate nasal swab / Unknown Non-blood Collection / Unknown 09/09/2023 6:44 AM EDT 09/09/2023 7:19 AM EDT Gilma Heath DO LAB MICRO - GE NERAL ORDERABLES Performing Organization Address [facility]/ZIP Co de Phone Number LABORATORY [address] [address] * (ABNORMAL) MICROSCOPIC EXAM, URINE (09/09/2023 6:01 AM EDT) RBC, Urine 30-49(A) 0 - 2 /HPF 09/09/2023 6:23 AM EDT LABORATORY [facility] WBC, Urine 0-2 0 - 2 /HPF 09/09/2023 6:23 AM EDT LABORATORY [facility] Bacteria, Urine 101-150(A) 0 - 25 /HPF 09/09/2023 6:23 AM EDT LABORATORY [facility] Urine Non-blood Collection / Unknown 09/09/2023 6:01 AM EDT 09/09/2023 6:04 AM EDT Gilma Heath DO LAB URINE ORDE RABLES Performing Organization Address [facility] Co de Phone Number LABORATORY [address] [address] * (ABNORMAL) URINALYSIS, REFLEX TO MICROSCOPIC (09/09/2023 6:01 AM EDT) Color, Urine Yellow Light Yellow, Yellow, Dark Yellow 09/09/2023 6:23 AM EDT LABORATORY [facility] Clarity, Urine Clear Clear 09/09/2023 6:23 AM EDT LABORATORY GL Glucose, Urine Negative Negative mg/dL 09/09/2023 6:23 AM EDT LABORATORY GL Bilirubin, Urine Negative Negative 09/09/2023 6:23 AM EDT LABORATORY GL Ketone, Urine Negative Negative mg/dL 09/09/2023 6:23 AM EDT LABORATORY GL Specific Moran, Urine 1.022 1.003 - 1.030 09/09/2023 6:23 AM EDT LABORATORY GL Blood, Urine Large(A) Negative 09/09/2023 6:23 AM EDT LABORATORY GL pH, Urine 5.5 5.0 - 7.5 Units 09/09/2023 6:23 AM EDT LABORATORY GL Protein, Urine Trace(A) Negative mg/dL 09/09/2023 6:23 AM EDT LABORATORY GL Urobilinogen, Urine 1.0 0.2, 1.0 mg/dL 09/09/2023 6:23 AM EDT LABORATORY GL Nitrite, Urine Negative Negative 09/09/2023 6:23 AM EDT LABORATORY GL Esterase, Urine Negative Negative 09/09/2023 6:23 AM EDT LABORATORY [facility] Urine Non-blood Collection / Unknown 09/09/2023 6:01 AM EDT 09/09/2023 6:04 AM EDT Gilma Heath DO LAB URINE TALIB SANTOS Performing Organization Address City/State/[facility] Co de Phone Number LABORATORY [address] [address] * TOXICOLOGY, URINESCREEN W/ CONFIRMATION (09/09/2023 6:01 AM EDT) Amphetamines Screen, U Negative Negative 09/09/2023 6:44 AM EDT LABORATORY [facility] Benzodiazepines Screen, U Negative Negative 09/09/2023 6:44 AM EDT LABORATORY GL Cannabinoids Screen, U Negative Negative 09/09/2023 6:44 AM EDT LAB[facility]ATORY [facility] Cocaine Metabolite Screen, U Negative Negative 09/09/2023 6:44 AM EDT LAB[facility]ATORY [facility] Fentanyl Screen, U Negative Negative 2023 6:44 AM EDT LABORATORY GL Hydrocodone Screen, U Negative Negative 09/09/2023 6:44 AM EDT LAB[facility]ATORY [facility] Methadone Metabolite Screen, U Negative Negative 09/09/2023 6:44 AM EDT LABORATORY GL Morphine/Codeine Screen, U Negative Negative 09/09/2023 6:44 AM EDT LABORATORY GL Oxycodone Screen, U Negative Negative 09/08 6:44 AM EDT LABORATORY [facility] Urine Non-blood Collection / Unknown 09/09/2023 6:01 AM EDT 09/09/2023 6:04 AM EDT Narrative LABORATORY [facility] - 09/09/2023 6:44 AM EDT Cutoff Concentrations: Drug Level Amphetamines 500 ng/mL Benzodiazepines 100 ng/mL Cannabinoids 50 ng/mL Cocaine Metabolite 150 ng/mL Fentanyl 1 ng/mL Hydrocodone / Hydromorphone 300 ng/mL Methadone Metabolite 100 ng/mL Morphine / Codeine 300 ng/mL Oxycodone / Oxymorphone 100 ng/mL Screening results are presumptive and can only be used for medical purposes. Positive screening results are reflexed to confirmatory testing. Gilma Heath DO LAB URINE TALIB SANTOS LABORATORY [address] [address] * CT ABD/PELVIS W IV CONTRAST - WO ORAL CONTRAST (09/09/2023 5:42 AM EDT) Anatomical Region Laterality Modality Body, Abdomen, Pelvis Computed T omography 09/09/2023 5:33 AM EDT Impressions 09/09/2023 6:29 AM EDT IMPRESSION: No acute findings. PROCEDURE INFORMATION: Exam: CT Abdomen And Pelvis With Contrast Exam date and time: 09/09/2023 5:33 AM Age: 72 years old Clinical indication: Injury or trauma; Patient HX: Trauma alert; PT. Fell transferring out of bed. PT. Had recent fall 9 days ago that resulted in head bleed. PT. Unable to lay head/neck back due to cervical hardware; Best positioning possible; Additional info: Significant trauma with possible severe intraabdominal injury or abdominal pain TECHNIQUE: Imaging protocol: Computed tomography of the abdomen and pelvis with contrast. 3D rendering (Not supervised by radiologist): MIP and/or 3D reconstructed images were created by the technologist. Radiation optimization: All CT scans at this facility use at least one of these dose optimization techniques: automated exposure control; mA and/or kV adjustment per patient size (includes targeted exams where dose is matched to clinical indication); or iterative reconstruction. Contrast material: ISOVUE 370; Contrast volume: 100 ml; Contrast route: INTRAVENOUS (IV); COMPARISON: CT ABD/PELVIS W IV CONTRAST - WO ORAL CONTRAST 09/04/2023 9:52 PM FINDINGS: Liver: Normal. No liver mass. Gallbladder and bile ducts: No gallstones, gallbladder wall thickening or pericholecystic fluid. Common bile duct is not dilated. Pancreas: Unremarkable. No significant pancreatic duct dilation. Spleen: Normal. No splenomegaly. Adrenal glands: Normal. No adrenal mass. Kidneys and ureters: A 3 cm simple appearing cyst in the midportion of the left kidney. A 1.2 cm simple appearing cyst in the lower pole of the right kidney. A 6 mm nonobstructing calculus in the lower pole of the left kidney. A 1.3 cm nonobstructing calculus in the pelvis of the right kidney. No follow up imaging is recommended for the renal cysts. Stomach and bowel: Mild descending colon diverticulosis and moderate sigmoid colon diverticulosis without evidence of diverticulitis. No bowel obstruction, ileus, or colitis. Appendix: No CT evidence of appendicitis. Intraperitoneal space: No free air or fluid in the abdomen. No abnormal fluid collection. Vasculature: Unremarkable. No abdominal aortic aneurysm. Lymph nodes: No abdominal lymphadenopathy. Urinary bladder: Juarez catheter in the bladder. Reproductive: Unremarkable as visualized. Bones/joints: No acute fracture. Previous right hip total arthroplasty in good alignment. Without evidence of hardware failure. Soft tissues: Unremarkable. IMPRESSION: 1. No acute findings. 2. A 3 cm simple appearing cyst in the midportion of the left kidney. A 1.2 cm simple appearing cyst in the lower pole of the right kidney. A 6 mm nonobstructing calculus in the lower pole of the left kidney. A 1.3 cm nonobstructing calculus in the pelvis of the right kidney. No follow up imaging is recommended for the renal cysts. 3. Mild descending colon diverticulosis and moderate sigmoid colon diverticulosis without evidence of diverticulitis. COMMENTS: Consistent with the [employer]'s Incidental Findings Committee white paper (J Am Micah Radiol 2018): Any incidental renal lesion less than 1 cm or classified as too small to characterize, or any incidental cystic renal lesion characterized as simple-appearing, is likely benign. No follow-up imaging is recommended for these lesions per consensus recommendations based on imaging criteria. THIS DOCUMENT HAS BEEN ELECTRONICALLY SIGNED BY DAYNA EVANS MD Narrative 09/09/2023 6:29 AM EDT PROCEDURE INFORMATION: Exam: CT Chest With Contrast; Diagnostic Exam date and time: 09/09/2023 5:33 AM Age: 72 years old Clinical indication: Injury or trauma; Patient HX: Trauma alert; PT. Fell transferring out of bed. PT. Had recent fall 9 days ago that resulted in head bleed. PT. Unable to lay head/neck back due to cervical hardware; Best positioning possible; Additional info: Significant trauma with possible severe intraabdominal injury or abdominal pain TECHNIQUE: Imaging protocol: Diagnostic computed tomography of the chest with contrast. Radiation optimization: All CT scans at this facility use at least one of these dose optimization techniques: automated exposure control; mA and/or kV adjustment per patient size (includes targeted exams where dose is matched to clinical indication); or iterative reconstruction. Contrast material: ISOVUE 370; Contrast volume: 100 ml; Contrast route: INTRAVENOUS (IV); COMPARISON: CT ABD/PELVIS W IV CONTRAST - WO ORAL CONTRAST 09/04/2023 9:52 PM FINDINGS: Lungs: Unremarkable. No consolidation. No masses. Pleural spaces: Unremarkable. No pneumothorax. No pleural effusion. Heart: Unremarkable. No cardiomegaly. No pericardial effusion. Coronary arteries: Coronary artery calcifications. Lymph nodes: Unremarkable. No enlarged lymph nodes. Vasculature: Unremarkable. No aortic aneurysm. Bones/joints: C7-T2 posterior fusion without evidence of hardware failure. No acute fractures. Soft tissues: Unremarkable. Procedure Note Dayna Evans MD - 09/09/2023 PROCEDURE INFORMATION: Exam: CT Chest With Contrast; Diagnostic Exam date and time: 09/09/2023 5:33 AM Age: 72 years old Clinical indication: Injury or trauma; Patient HX: Trauma alert; PT. Fell transferring out of bed. PT. Had recent fall 9 days ago that resulted inhead bleed. PT. Unable to lay head/neck back due to cervical hardware; Best positioning possible; Additional info: Significant trauma with possiblesevere intraabdominal injury or abdominal pain TECHNIQUE: Imaging protocol: Diagnostic computed tomography of the chest withcontrast. Radiation optimization: All CT scans at this facility use at least one ofthese dose optimization techniques: automated exposure control; mA and/or kV adjustment per patient size (includes targeted exams where dose is matchedto clinical indication); or iterative reconstruction. Contrast material: ISOVUE 370; Contrast volume: 100 ml; Contrast route: INTRAVENOUS (IV); COMPARISON: CT ABD/PELVIS W IV CONTRAST - WO ORAL CONTRAST 09/04/2023 9:52 PM FINDINGS: Lungs: Unremarkable. No consolidation. No masses. Pleural spaces: Unremarkable. No pneumothorax. No pleural effusion. Heart: Unremarkable. No cardiomegaly. No pericardial effusion. Coronary arteries: Coronary artery calcifications. Lymph nodes: Unremarkable. No enlarged lymph nodes. Vasculature: Unremarkable. No aortic aneurysm. Bones/joints: C7-T2 posterior fusion without evidence of hardware failure.No acute fractures. Soft tissues: Unremarkable. IMPRESSION IMPRESSION: No acute findings. PROCEDURE INFORMATION: Exam: CT Abdomen And Pelvis With Contrast Exam date and time: 09/09/2023 5:33 AM Age: 72 years old Clinical indication: Injury or trauma; Patient HX: Trauma alert; PT. Fell transferring out of bed. PT. Had recent fall 9 days ago that resulted inhead bleed. PT. Unable to lay head/neck back due to cervical hardware; Best positioning possible; Additional info: Significant trauma with possiblesevere intraabdominal injury or abdominal pain TECHNIQUE: Imaging protocol: Computed tomography of the abdomen and pelvis withcontrast. 3D rendering (Not supervised by radiologist): MIP and/or 3D reconstructed images were created by the technologist. Radiation optimization: All CT scans at this facility use at least one ofthese dose optimization techniques: automated exposure control; mA and/or kV adjustment per patient size (includes targeted exams where dose is matchedto clinical indication); or iterative reconstruction. Contrast material: ISOVUE 370; Contrast volume: 100 ml; Contrast route: INTRAVENOUS (IV); COMPARISON: CT ABD/PELVIS W IV CONTRAST - WO ORAL CONTRAST 09/04/2023 9:52 PM FINDINGS: Liver: Normal. No liver mass. Gallbladder and bile ducts: No gallstones, gallbladder wall thickening or pericholecystic fluid. Common bile duct is not dilated. Pancreas: Unremarkable. No significant pancreatic duct dilation. Spleen: Normal. No splenomegaly. Adrenal glands: Normal. No adrenal mass. Kidneys and ureters: A 3 cm simple appearing cyst in the midportion of theleft kidney. A 1.2 cm simple appearing cyst in the lower pole of the rightkidney. A 6 mm nonobstructing calculus in the lower pole of the left kidney. A 1.3cm nonobstructing calculus in the pelvis of the right kidney. No follow upimaging is recommended for the renal cysts. Stomach and bowel: Mild descending colon diverticulosis and moderatesigmoid colon diverticulosis without evidence of diverticulitis. No bowelobstruction, ileus, or colitis. Appendix: No CT evidence of appendicitis. Intraperitoneal space: No free air or fluid in the abdomen. No abnormalfluid collection. Vasculature: Unremarkable. No abdominal aortic aneurysm. Lymph nodes: No abdominal lymphadenopathy. Urinary bladder: Juarez catheter in the bladder. Reproductive: Unremarkable as visualized. Bones/joints: No acute fracture. Previous right hip total arthroplasty ingood alignment. Without evidence of hardware failure. Soft tissues: Unremarkable. IMPRESSION: 1. No acute findings. 2. A 3 cm simple appearing cyst in the midportion of the left kidney. A1.2 cm simple appearing cyst in the lower pole of the right kidney. A 6 mm nonobstructing calculus in the lower pole of the left kidney. A 1.3 cm nonobstructing calculus in the pelvis of the right kidney. No follow upimaging is recommended for the renal cysts. 3. Mild descending colon diverticulosis and moderate sigmoid colon diverticulosis without evidence of diverticulitis. COMMENTS: Consistent with the [employer]'s Incidental Findings Committee white paper (J Am Micah Radiol 2018): Any incidental renal lesionless than 1 cm or classified as too small to characterize, or any incidentalcystic renal lesion characterized as simple-appearing, is likely benign. Nofollow-up imaging is recommended for these lesions per consensus recommendationsbased on imaging criteria. THIS DOCUMENT HAS BEEN ELECTRONICALLY SIGNED BY DAYNA EVANS MD Gilma Heath DO RAD CT * CT CHEST W CONTRAST (09/09/2023 5:42 AM EDT) Anatomical Region Laterality Modality Chest, Body, Cardio Computed Stuart ography 09/09/2023 5:33 AM EDT Impressions 09/09/2023 6:29 AM EDT IMPRESSION: No acute findings. PROCEDURE INFORMATION: Exam: CT Abdomen And Pelvis With Contrast Exam date and time: 09/09/2023 5:33 AM Age: 72 years old Clinical indication: Injury or trauma; Patient HX: Trauma alert; PT. Fell transferring out of bed. PT. Had recent fall 9 days ago that resulted in head bleed. PT. Unable to lay head/neck back due to cervical hardware; Best positioning possible; Additional info: Significant trauma with possible severe intraabdominal injury or abdominal pain TECHNIQUE: Imaging protocol: Computed tomography of the abdomen and pelvis with contrast. 3D rendering (Not supervised by radiologist): MIP and/or 3D reconstructed images were created by the technologist. Radiation optimization: All CT scans at this facility use at least one of these dose optimization techniques: automated exposure control; mA and/or kV adjustment per patient size (includes targeted exams where dose is matched to clinical indication); or iterative reconstruction. Contrast material: ISOVUE 370; Contrast volume: 100 ml; Contrast route: INTRAVENOUS (IV); COMPARISON: CT ABD/PELVIS W IV CONTRAST - WO ORAL CONTRAST 09/04/2023 9:52 PM FINDINGS: Liver: Normal. No liver mass. Gallbladder and bile ducts: No gallstones, gallbladder wall thickening or pericholecystic fluid. Common bile duct is not dilated. Pancreas: Unremarkable. No significant pancreatic duct dilation. Spleen: Normal. No splenomegaly. Adrenal glands: Normal. No adrenal mass. Kidneys and ureters: A 3 cm simple appearing cyst in the midportion of the left kidney. A 1.2 cm simple appearing cyst in the lower pole of the right kidney. A 6 mm nonobstructing calculus in the lower pole of the left kidney. A 1.3 cm nonobstructing calculus in the pelvis of the right kidney. No follow up imaging is recommended for the renal cysts. Stomach and bowel: Mild descending colon diverticulosis and moderate sigmoid colon diverticulosis without evidence of diverticulitis. No bowel obstruction, ileus, or colitis. Appendix: No CT evidence of appendicitis. Intraperitoneal space: No free air or fluid in the abdomen. No abnormal fluid collection. Vasculature: Unremarkable. No abdominal aortic aneurysm. Lymph nodes: No abdominal lymphadenopathy. Urinary bladder: Juarez catheter in the bladder. Reproductive: Unremarkable as visualized. Bones/joints: No acute fracture. Previous right hip total arthroplasty in good alignment. Without evidence of hardware failure. Soft tissues: Unremarkable. IMPRESSION: 1. No acute findings. 2. A 3 cm simple appearing cyst in the midportion of the left kidney. A 1.2 cm simple appearing cyst in the lower pole of the right kidney. A 6 mm nonobstructing calculus in the lower pole of the left kidney. A 1.3 cm nonobstructing calculus in the pelvis of the right kidney. No follow up imaging is recommended for the renal cysts. 3. Mild descending colon diverticulosis and moderate sigmoid colon diverticulosis without evidence of diverticulitis. COMMENTS: Consistent with the [employer]'s Incidental Findings Committee white paper (J Am Micah Radiol 2018): Any incidental renal lesion less than 1 cm or classified as too small to characterize, or any incidental cystic renal lesion characterized as simple-appearing, is likely benign. No follow-up imaging is recommended for these lesions per consensus recommendations based on imaging criteria. THIS DOCUMENT HAS BEEN ELECTRONICALLY SIGNED BY DAYNA EVANS MD Narrative 09/09/2023 6:29 AM EDT PROCEDURE INFORMATION: Exam: CT Chest With Contrast; Diagnostic Exam date and time: 09/09/2023 5:33 AM Age: 72 years old Clinical indication: Injury or trauma; Patient HX: Trauma alert; PT. Fell transferring out of bed. PT. Had recent fall 9 days ago that resulted in head bleed. PT. Unable to lay head/neck back due to cervical hardware; Best positioning possible; Additional info: Significant trauma with possible severe intraabdominal injury or abdominal pain TECHNIQUE: Imaging protocol: Diagnostic computed tomography of the chest with contrast. Radiation optimization: All CT scans at this facility use at least one of these dose optimization techniques: automated exposure control; mA and/or kV adjustment per patient size (includes targeted exams where dose is matched to clinical indication); or iterative reconstruction. Contrast material: ISOVUE 370; Contrast volume: 100 ml; Contrast route: INTRAVENOUS (IV); COMPARISON: CT ABD/PELVIS W IV CONTRAST - WO ORAL CONTRAST 09/04/2023 9:52 PM FINDINGS: Lungs: Unremarkable. No consolidation. No masses. Pleural spaces: Unremarkable. No pneumothorax. No pleural effusion. Heart: Unremarkable. No cardiomegaly. No pericardial effusion. Coronary arteries: Coronary artery calcifications. Lymph nodes: Unremarkable. No enlarged lymph nodes. Vasculature: Unremarkable. No aortic aneurysm. Bones/joints: C7-T2 posterior fusion without evidence of hardware failure. No acute fractures. Soft tissues: Unremarkable. Procedure Note Dayna Evans MD - 09/09/2023 PROCEDURE INFORMATION: Exam: CT Chest With Contrast; Diagnostic Exam date and time: 09/09/2023 5:33 AM Age: 72 years old Clinical indication: Injury or trauma; Patient HX: Trauma alert; PT. Fell transferring out of bed. PT. Had recent fall 9 days ago that resulted inhead bleed. PT. Unable to lay head/neck back due to cervical hardware; Best positioning possible; Additional info: Significant trauma with possiblesevere intraabdominal injury or abdominal pain TECHNIQUE: Imaging protocol: Diagnostic computed tomography of the chest withcontrast. Radiation optimization: All CT scans at this facility use at least one ofthese dose optimization techniques: automated exposure control; mA and/or kV adjustment per patient size (includes targeted exams where dose is matchedto clinical indication); or iterative reconstruction. Contrast material: ISOVUE 370; Contrast volume: 100 ml; Contrast route: INTRAVENOUS (IV); COMPARISON: CT ABD/PELVIS W IV CONTRAST - WO ORAL CONTRAST 09/04/2023 9:52 PM FINDINGS: Lungs: Unremarkable. No consolidation. No masses. Pleural spaces: Unremarkable. No pneumothorax. No pleural effusion. Heart: Unremarkable. No cardiomegaly. No pericardial effusion. Coronary arteries: Coronary artery calcifications. Lymph nodes: Unremarkable. No enlarged lymph nodes. Vasculature: Unremarkable. No aortic aneurysm. Bones/joints: C7-T2 posterior fusion without evidence of hardware failure.No acute fractures. Soft tissues: Unremarkable. IMPRESSION IMPRESSION: No acute findings. PROCEDURE INFORMATION: Exam: CT Abdomen And Pelvis With Contrast Exam date and time: 09/09/2023 5:33 AM Age: 72 years old Clinical indication: Injury or trauma; Patient HX: Trauma alert; PT. Fell transferring out of bed. PT. Had recent fall 9 days ago that resulted inhead bleed. PT. Unable to lay head/neck back due to cervical hardware; Best positioning possible; Additional info: Significant trauma with possiblesevere intraabdominal injury or abdominal pain TECHNIQUE: Imaging protocol: Computed tomography of the abdomen and pelvis withcontrast. 3D rendering (Not supervised by radiologist): MIP and/or 3D reconstructed images were created by the technologist. Radiation optimization: All CT scans at this facility use at least one ofthese dose optimization techniques: automated exposure control; mA and/or kV adjustment per patient size (includes targeted exams where dose is matchedto clinical indication); or iterative reconstruction. Contrast material: ISOVUE 370; Contrast volume: 100 ml; Contrast route: INTRAVENOUS (IV); COMPARISON: CT ABD/PELVIS W IV CONTRAST - WO ORAL CONTRAST 09/04/2023 9:52 PM FINDINGS: Liver: Normal. No liver mass. Gallbladder and bile ducts: No gallstones, gallbladder wall thickening or pericholecystic fluid. Common bile duct is not dilated. Pancreas: Unremarkable. No significant pancreatic duct dilation. Spleen: Normal. No splenomegaly. Adrenal glands: Normal. No adrenal mass. Kidneys and ureters: A 3 cm simple appearing cyst in the midportion of theleft kidney. A 1.2 cm simple appearing cyst in the lower pole of the rightkidney. A 6 mm nonobstructing calculus in the lower pole of the left kidney. A 1.3cm nonobstructing calculus in the pelvis of the right kidney. No follow upimaging is recommended for the renal cysts. Stomach and bowel: Mild descending colon diverticulosis and moderatesigmoid colon diverticulosis without evidence of diverticulitis. No bowelobstruction, ileus, or colitis. Appendix: No CT evidence of appendicitis. Intraperitoneal space: No free air or fluid in the abdomen. No abnormalfluid collection. Vasculature: Unremarkable. No abdominal aortic aneurysm. Lymph nodes: No abdominal lymphadenopathy. Urinary bladder: Juarez catheter in the bladder. Reproductive: Unremarkable as visualized. Bones/joints: No acute fracture. Previous right hip total arthroplasty ingood alignment. Without evidence of hardware failure. Soft tissues: Unremarkable. IMPRESSION: 1. No acute findings. 2. A 3 cm simple appearing cyst in the midportion of the left kidney. A1.2 cm simple appearing cyst in the lower pole of the right kidney. A 6 mm nonobstructing calculus in the lower pole of the left kidney. A 1.3 cm nonobstructing calculus in the pelvis of the right kidney. No follow upimaging is recommended for the renal cysts. 3. Mild descending colon diverticulosis and moderate sigmoid colon diverticulosis without evidence of diverticulitis. COMMENTS: Consistent with the [employer]'s Incidental Findings Committee white paper (J Am Micah Radiol 2018): Any incidental renal lesionless than 1 cm or classified as too small to characterize, or any incidentalcystic renal lesion characterized as simple-appearing, is likely benign. Nofollow-up imaging is recommended for these lesions per consensus recommendationsbased on imaging criteria. THIS DOCUMENT HAS BEEN ELECTRONICALLY SIGNED BY DAYNA EVANS MD Gilma Heath DO RAD CT * CT C SPINE WO CONTRAST (09/09/2023 5:42 AM EDT) Anatomical Region Laterality Modality Cspine, Spine, Neck, Vertebra Co mputed Tomography 09/09/2023 5:28 AM EDT Impressions 09/09/2023 5:56 AM EDT IMPRESSION: 1. No acute findings. 2. Posterior C2-T2 cervical spine fusion in good alignment, without evidence of hardware failure. THIS DOCUMENT HAS BEEN ELECTRONICALLY SIGNED BY DAYNA EVANS MD Narrative 09/09/2023 5:56 AM EDT PROCEDURE INFORMATION: Exam: CT Cervical Spine Without Contrast Exam date and time: 09/09/2023 5:28 AM Age: 72 years old Clinical indication: Injury or trauma; Concussion/head injury; Patient HX: Trauma alert; PT. Fell transferring out of bed. PT. Had recent fall 9 days ago that resulted in head bleed. PT. Unable to lay head/neck back due to cervical hardware; Best positioning possible; Additional info: Significant trauma with possible severe neurologic injury or neck pain TECHNIQUE: Imaging protocol: Computed tomography of the cervical spine without contrast. Radiation optimization: All CT scans at this facility use at least one of these dose optimization techniques: automated exposure control; mA and/or kV adjustment per patient size (includes targeted exams where dose is matched to clinical indication); or iterative reconstruction. COMPARISON: CT C SPINE WO CONTRAST 09/04/2023 9:52 PM FINDINGS: Bones/joints: No acute cervical spine fracture. Posterior C2-T2 cervical spine fusion in good alignment, without evidence of hardware failure. Lungs: Lung apices are normal. Soft tissues: Unremarkable. Procedure Note Dayna Evans MD - 09/09/2023 PROCEDURE INFORMATION: Exam: CT Cervical Spine Without Contrast Exam date and time: 09/09/2023 5:28 AM Age: 72 years old Clinical indication: Injury or trauma; Concussion/head injury; Patient HX: Trauma alert; PT. Fell transferring out of bed. PT. Had recent fall 9 daysago that resulted in head bleed. PT. Unable to lay head/neck back due tocervical hardware; Best positioning possible; Additional info: Significant traumawith possible severe neurologic injury or neck pain TECHNIQUE: Imaging protocol: Computed tomography of the cervical spine withoutcontrast. Radiation optimization: All CT scans at this facility use at least one ofthese dose optimization techniques: automated exposure control; mA and/or kV adjustment per patient size (includes targeted exams where dose is matchedto clinical indication); or iterative reconstruction. COMPARISON: CT C SPINE WO CONTRAST 09/04/2023 9:52 PM FINDINGS: Bones/joints: No acute cervical spine fracture. Posterior C2-T2 cervicalspine fusion in good alignment, without evidence of hardware failure. Lungs: Lung apices are normal. Soft tissues: Unremarkable. IMPRESSION IMPRESSION: 1. No acute findings. 2. Posterior C2-T2 cervical spine fusion in good alignment, withoutevidence of hardware failure. THIS DOCUMENT HAS BEEN ELECTRONICALLY SIGNED BY DAYNA EVANS MD Gilma Heath DO RAD CT * CT HEAD/BRAIN WO CONTRAST (09/09/2023 5:42 AM EDT) Anatomical Region Laterality Modality Head Computed Tomogra phy 09/09/2023 5:28 AM EDT Impressions 09/09/2023 5:51 AM EDT IMPRESSION: 1. A small right frontal subarachnoid hemorrhage is unchanged compared to previous CT dated 09/04/2023. 2. 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 3. Generalized brain atrophy and microvascular ischemic changes in bilateral white matter. THIS DOCUMENT HAS BEEN ELECTRONICALLY SIGNED BY DAYNA EVANS MD Narrative 09/09/2023 5:51 AM EDT PROCEDURE INFORMATION: Exam: CT Head Without Contrast Exam date and time: 09/09/2023 5:28 AM Age: 72 years old Clinical indication: Injury or trauma; Bleeding/hemorrhage; Patient HX: Trauma alert; PT. Fell transferring out of bed. PT. Had recent fall 9 days ago that resulted in head bleed. PT. Unable to lay head/neck back due to cervical hardware; Best positioning possible; Additional info: Significant trauma with possible severe neurologic injury or head pain TECHNIQUE: Imaging protocol: Computed tomography of the head without contrast. Radiation optimization: All CT scans at this facility use at least one of these dose optimization techniques: automated exposure control; mA and/or kV adjustment per patient size (includes targeted exams where dose is matched to clinical indication); or iterative reconstruction. 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 No acute intracranial hemorrhage. No mass effect or midline shift. No acute extraaxial fluid collection. Generalized brain atrophy and microvascular ischemic changes in bilateral white matter. Cerebral ventricles: No ventriculomegaly. Paranasal sinuses: Partially visualized sinuses are unremarkable. No fluid levels. Mastoid air cells: Visualized mastoid air cells are well aerated. Orbital cavities: Previous bilateral cataract surgery. Bones/joints: Unremarkable. No acute calvarial fracture. Soft tissues: Unremarkable. Vasculature: Atherosclerotic calcifications in the intracranial segments of bilateral internal carotid arteries and bilateral vertebral arteries. Procedure Note Dayna Evans MD - 09/09/2023 PROCEDURE INFORMATION: Exam: CT Head Without Contrast Exam date and time: 09/09/2023 5:28 AM Age: 72 years old Clinical indication: Injury or trauma; Bleeding/hemorrhage; Patient HX:Trauma alert; PT. Fell transferring out of bed. PT. Had recent fall 9 days agothat resulted in head bleed. PT. Unable to lay head/neck back due to cervical hardware; Best positioning possible; Additional info: Significant traumawith possible severe neurologic injury or head pain TECHNIQUE: Imaging protocol: Computed tomography of the head without contrast. Radiation optimization: All CT scans at this facility use at least one ofthese dose optimization techniques: automated exposure control; mA and/or kV adjustment per patient size (includes targeted exams where dose is matchedto clinical indication); or iterative reconstruction. 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 Noacute intracranial hemorrhage. No mass effect or midline shift. No acuteextraaxial fluid collection. Generalized brain atrophy and microvascular ischemicchanges in bilateral white matter. Cerebral ventricles: No ventriculomegaly. Paranasal sinuses: Partially visualized sinuses are unremarkable. No fluid levels. Mastoid air cells: Visualized mastoid air cells are well aerated. Orbital cavities: Previous bilateral cataract surgery. Bones/joints: Unremarkable. No acute calvarial fracture. Soft tissues: Unremarkable. Vasculature: Atherosclerotic calcifications in the intracranial segmentsof bilateral internal carotid arteries and bilateral vertebral arteries. IMPRESSION IMPRESSION: 1. A small right frontal subarachnoid hemorrhage is unchanged comparedto previous CT dated 09/04/2023. 2. 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 3. Generalized brain atrophy and microvascular ischemic changes inbilateral white matter. THIS DOCUMENT HAS BEEN ELECTRONICALLY SIGNED BY DAYNA EVANS MD Gilma Heath RAD CT * XR PELVIS 1 VIEW (09/09/2023 5:28 AM EDT) Anatomical Region Laterality Modality Pelvis, Lower Extremity Digital Radiography 09/09/2023 5:19 AM EDT Impressions 09/09/2023 5:51 AM EDT IMPRESSION: 1. Previous total right hip arthroplasty. 2. No acute fracture or dislocation. THIS DOCUMENT HAS BEEN ELECTRONICALLY SIGNED BY DAYNA EVANS MD Narrative 09/09/2023 5:51 AM EDT PROCEDURE INFORMATION: Exam: XR Pelvis Exam date and time: 09/09/2023 5:19 AM Age: 72 years old Clinical indication: Other: Fall; Additional info: Trauma TECHNIQUE: Imaging protocol: Radiologic exam of the pelvis. Views: 1 or 2 view. COMPARISON: DX XR PELVIS 1 VIEW 09/04/2023 10:09 PM FINDINGS: Bones/joints: Previous total right hip arthroplasty. No acute fracture or dislocation. Soft tissues: Unremarkable. Procedure Note Dayna Evans MD - 09/09/2023 PROCEDURE INFORMATION: Exam: XR Pelvis Exam date and time: 09/09/2023 5:19 AM Age: 72 years old Clinical indication: Other: Fall; Additional info: Trauma TECHNIQUE: Imaging protocol: Radiologic exam of the pelvis. Views: 1 or 2 view. COMPARISON: DX XR PELVIS 1 VIEW 09/04/2023 10:09 PM FINDINGS: Bones/joints: Previous total right hip arthroplasty. No acute fracture or dislocation. Soft tissues: Unremarkable. IMPRESSION IMPRESSION: 1. Previous total right hip arthroplasty. 2. No acute fracture or dislocation. THIS DOCUMENT HAS BEEN ELECTRONICALLY SIGNED BY DAYNA EVANS MD Gilma Heath DO RADIOLOGY ([facility]) * XR CHEST 1 VIEW (09/09/2023 5:28 AM EDT) Anatomical Region Laterality Modality Chest Digital Radiogra phy 09/09/2023 5:14 AM EDT Impressions 09/09/2023 5:52 AM EDT IMPRESSION: No acute findings. THIS DOCUMENT HAS BEEN ELECTRONICALLY SIGNED BY DAYNA EVANS MD Narrative 09/09/2023 5:52 AM EDT PROCEDURE INFORMATION: Exam: XR Chest Exam date and time: 09/09/2023 5:14 AM Age: 72 years old Clinical indication: Other: Fall; Additional info: Trauma TECHNIQUE: Imaging protocol: Radiologic exam of the chest. Views: 1 view. COMPARISON: DX XR CHEST 1 VIEW 09/04/2023 10:09 PM FINDINGS: Lungs: No consolidation or pulmonary edema. Pleural spaces: No pleural effusion. No pneumothorax. Heart/Mediastinum: Cardiomediastinal silhouette is normal in size. Bones/joints: No acute fractures. Posterior fusion in the lower cervical and upper thoracic spine. Procedure Note Dayna Evans MD - 09/09/2023 PROCEDURE INFORMATION: Exam: XR Chest Exam date and time: 09/09/2023 5:14 AM Age: 72 years old Clinical indication: Other: Fall; Additional info: Trauma TECHNIQUE: Imaging protocol: Radiologic exam of the chest. Views: 1 view. COMPARISON: DX XR CHEST 1 VIEW 09/04/2023 10:09 PM FINDINGS: Lungs: No consolidation or pulmonary edema. Pleural spaces: No pleural effusion. No pneumothorax. Heart/Mediastinum: Cardiomediastinal silhouette is normal in size. Bones/joints: No acute fractures. Posterior fusion in the lower cervicaland upper thoracic spine. IMPRESSION IMPRESSION: No acute findings. THIS DOCUMENT HAS BEEN ELECTRONICALLY SIGNED BY DAYNA EVANS MD Gilma Heath RADIOLOGY ([facility]) * (ABNORMAL) DIFFERENTIAL, AUTOMATED (09/09/2023 5:21 AM EDT) WBC 7.27 4.00 - 10.80 K/uL 09/09/2023 5:32 AM EDT [facility] Neutrophils % 50.0 40.0 - 75.0 % 09/09/2023 5:32 AM EDT [facility] Lymphocytes % 33.7 18.0 - 42.0 % 09/09/2023 5:32 AM EDT [facility] Monocytes % 8.3 1.0 - 11.0 % 09/09/2023 5:32 AM EDT [facility] Eosinophils % 6.9(H) 0.0 - 6.0 % 09/09/2023 5:32 AM EDT [facility] Basophils % 0.7 0.0 - 2.0 % 09/09/2023 5:32 AM EDT [facility] Immature Granulocytes % 0.4 0.0 - 2.0 % 09/09/2023 5:32 AM EDT [facility] Absolute Neutrophils 3.64 1.80 - 7.70 K/uL 09/09/2023 5:32 AM EDT [facility] Absolute Lymphocytes 2.45 1.00 - 4.80 K/ul 09/09/2023 5:32 AM EDT [facility] Absolute Monocytes 0.60 0.00 - 1.10 K/uL 09/09/2023 5:32 AM EDT LABORATORY [facility] Absolute Eosinophils 0.50 0.00 - 0.70 K/uL 09/09/2023 5:32 AM EDT LAB[facility] Absolute Basophils 0.05 0.00 - 0.20 K/uL 09/09/2023 5:32 AM EDT LAB[facility]AT[facility] Absolute Immature Granulocytes 0.03 0.00 - 0.20 K/uL 09/09/2023 5:32 AM EDT LABORATORY [facility] Blood Venous blood specimen / Unknown Venipuncture / Unknown 09/09/2023 5:21 AM EDT 09/09/2023 5:24 AM EDT Gilma Heath DO LAB BLOOD [facility] [address] [address] * (ABNORMAL) CBC (09/09/2023 5:21 AM EDT) WBC 7.27 4.00 - 10.80 K/uL 09/09/2023 5:32 AM EDT LABORATORY [facility] RBC 3.77 4.50 - 5.25 M/uL 09/09/2023 5:32 AM EDT LABORATORY [facility] HGB 11.6(L) 14.0 - 16.8 g/dL 09/09/2023 5:32 AM EDT LABORATORY [facility] HCT 35.6(L) 40.0 - 48.4 % 09/09/2023 5:32 AM EDT LABORATORY [facility] MCV 94.4 82.0 - 99.5 fL 09/09/2023 5:32 AM EDT LABORATORY [facility] MCH 30.8 27.0 - 34.0 pg 09/09/2023 5:32 AM EDT LABORATORY [facility] MCHC 32.6 32.0 - 36.0 g/dL 09/09/2023 5:32 AM EDT LABORATORY [facility] RDW 14.2 11.5 - 15.5 % 09/09/2023 5:32 AM EDT LABORATORY [facility] PLT 192 140 - 400 K/uL 09/09/2023 5:32 AM EDT LABORATORY [facility] MPV 9.0 6.6 - 11.1 fL 09/09/2023 5:32 AM EDT LABORATORY [facility] nRBCs 0 <=0 /100 WBCs 09/09/2023 5:32 AM EDT LABORATORY [facility] Blood Venous blood specimen / Unknown Venipuncture / Unknown 09/09/2023 5:21 AM EDT 09/09/2023 5:24 AM EDT Gilma Heath DO LAB BLOOD ORDBree SANTOS Performing Organization Address [facility] Co de Phone Number LABORATORY [address] [address] * TYPE AND SCREEN (09/09/2023 5:21 AM EDT) ABO O 09/09/2023 6:22 AM EDT LABORATORY [facility] BLOOD BANK Rh Positive 09/09/2023 6:22 AM EDT LABORATORY [facility] BLOOD BANK Red Blood Cell Antibody Screen Negative 09/09/2023 6:22 AM EDT LABORATORY [facility] BLOOD BANK Specimen Expiration Date 09/12/2023 23:59 09/09/2023 6:22 AM EDT LABORATORY [facility] BLOOD BANK Blood Venous blood specimen / Unknown Venipuncture / Unknown 09/09/2023 5:21 AM EDT 09/09/2023 5:25 AM EDT Gilma Mejiasofia [facility] BLOOD BANK TEST ORDERABLES Performing Organization Address [facility] de Phone Number LABORATORY [facility] BLOOD BANK [address] [place] [id number] * PT INR (09/09/2023 5:21 AM EDT) Prothrombin Time 14.0 11.6 - 15.2 seconds 09/09/2023 5:43 AM EDT LABORATORY [facility] INR 1.1 0.8 - 1.2 09/09/2023 5:43 AM EDT LABORATORY [facility] Blood Venous blood specimen / Unknown Venipuncture / Unknown 09/09/2023 5:21 AM EDT 09/09/2023 5:24 AM EDT Narrative LABORATORY [facility] - 09/09/2023 5:43 AM EDT Warfarin Therapy INR: 2.0-3.0 conventional anticoagulation INR: 2.5-3.5 high intensity anticoagulation Gilma Heath DO LAB BLOOD ORDBree SANTOS LABORATORY [address] [address] * LACTATE,WHOLE BLOOD (09/09/2023 5:21 AM EDT) Lactate, Whole Blood 1.7 0.4 - 2.0 mmol/L 09/09/2023 5:28 AM EDT LABORATORY [facility] Blood Venous blood specimen / Unknown Venipuncture / Unknown 09/09/2023 5:21 AM EDT 09/09/2023 5:23 AM EDT Gilma Heath DO LAB BLOOD ORDBree SANTOS Performing Organization Address [facility]/ZIP Co de Phone Number LABORATORY [address] [address] * ETHANOL, MEDICAL (09/09/2023 5:21 AM EDT) ETHANOL, MEDICAL Negative Negative 09/09/2023 5:42 AM EDT LABORATORY [facility] Blood Venous blood specimen / Unknown Venipuncture / Unknown 09/09/2023 5:21 AM EDT 09/09/2023 5:24 AM EDT Gilma Heath DO LAB BLOOD ORDBree SANTOS Performing Organization Address City/[facility]/ZIP Co de Phone Number LABORATORY [address] [address] * (ABNORMAL) COMPREHENSIVE METABOLIC PANEL (09/09/2023 5:21 AM EDT) BUN 20 6 - 20 mg/dL 09/09/2023 5:42 AM EDT LABORATORY [facility] Creatinine 0.9 0.6 - 1.2 mg/dL 09/09/2023 5:42 AM EDT LABORATORY GL Estimated Glomerular Filtration Rate 86 >=60 mL/min 09/09/2023 5:42 AM EDT LAB[facility]ORY [facility] Comment:eGFR is calculated b ased on the CKD-EPI 2020 equation Sodium 141 135 - 146 mmol/L 09/09/2023 5:42 AM EDT LAB[facility] Potassium 4.6 3.5 - 5.1 mmol/L 09/09/2023 5:42 AM EDT [facility] Chloride 104 98 - 107 mmol/L 09/09/2023 5:42 AM EDT [facility] CO2 24 22 - 32 mmol/L 09/09/2023 5:42 AM EDT [facility] Anion Gap 13 7 - 15 mmol/L 09/09/2023 5:42 AM EDT [facility] Glucose 188(H) 70 - 120 mg/dL 09/09/2023 5:42 AM EDT [facility] Albumin 3.8 3.8 - 5.0 g/dL 09/09/2023 5:42 AM EDT [facility] AST 47 10 - 50 U/L 09/09/2023 5:42 AM EDT LAB[facility] Alkaline Phosphatase 65 35 - 130 U/L 09/09/2023 5:42 AM EDT [facility] Bilirubin, Total 0.4 <=1.2 mg/dL 09/09/2023 5:42 AM EDT LAB[facility] Calcium 9.8 8.4 - 10.2 mg/dL 09/09/2023 5:42 AM EDT [facility] Protein 6.4 6.0 - 8.3 g/dL 09/09/2023 5:42 AM EDT [facility] ALT 77(H) 10 - 50 U/L 09/09/2023 5:42 AM EDT [facility] Blood Venous blood specimen / Unknown Venipuncture / Unknown 09/09/2023 5:21 AM EDT 09/09/2023 5:24 AM EDT Gilma Heath DO LAB BLOOD TALIB SANTOS LABORATORY [facility] [address] [place] [address] * EXTRA RECINOS TOP (09/09/2023 5:19 AM EDT) Blood Venous blood specimen / Unknown Venipuncture / Unknown 09/09/2023 5:19 AM EDT 09/09/2023 5:24 AM EDT Gilma Heath DO LAB BLOOD TALIB SANTOS LABORATORY [facility] [address] [place] [address] * EXTRA GREEN TOP WITH GEL (09/09/2023 5:19 AM EDT) Blood Venous blood specimen / Unknown Venipuncture / Unknown 09/09/2023 5:19 AM EDT 09/09/2023 5:24 AM EDT Gilma Heath DO LAB BLOOD TALIB SANTOS LABORATORY [facility] [address] [place] [address] documented in this encounter Visit Diagnoses Diagnosis Ambulatory dysfunction- Primary Fall, initial encounter Generalized weakness Other malaise and fatigue Electrolyte abnormality Electrolyte and fluid disorders not elsewhere classified Chest pain Chest pain, unspecified Subdural hematoma (HCC) Subdural hemorrhage Fall Unspecified fall Subdural hematoma (HCC) Subdural hemorrhage Type 2 diabetes mellitus with polyneuropathy (HCC) Type II or unspecified type diabetes mellitus with neurological manifestations, not stated as uncontrolled BPH without obstruction/lower urinary tract symptoms Hypertrophy of prostate without urinary obstruction and other lower urinary tract symptoms (LUTS) Hyperlipidemia with target LDL less than 100 Other and unspecified hyperlipidemia History of DVT (deep vein thrombosis) Personal history of venous thrombosis and embolism History of pulmonary embolism Personal history of pulmonary embolism Generalized weakness Other malaise and fatigue documented in this encounter Administered Medications Inactive Administered Medications - up to 3 most recent administrations Medication Order MAR Action Action Date Dose Rate Site Acetaminophen (Tylenol) tab 650 mg 650 mg, Oral, Q6H PRN Pain, Mild, Fever >38C(100.5F), Starting on 09/09/23 at 0813, Until Sun09/11/23 at 1911, Maximum of 4 grams (4000 mg) per day. Given 09/10/2023 9:11 PM EDT 650 mg Given 09/09/2023 10:53 PM EDT 650 mg amitriptyline (Elavil) tab 25 mg 25 mg, Oral, Daily(AM), First dose on Sun09/09/23 at 1030, Last dose on Sun09/13/23 at 0900, For 5 days Given 09/11/2023 9:04 AM EDT 25 mg Given 09/10/2023 8:07 AM EDT 25 mg Given 09/09/2023 10:48 AM EDT 25 mg atorvaSTATin (Lipitor) tab 40 mg 40 mg, Oral, Q1700, First dose on Sun09/09/23 at 1700, Until Discontinued Given 09/10/2023 4:47 PM EDT 40 mg Given 09/09/2023 5:04 PM EDT 40 mg calcium CARBonate (Tums E-X) tab CHEW 750 mg 750 mg, Oral, BID PRN Indigestion, Starting on Sun09/09/23 at 0813, Until Sun09/11/23 at 1911 cinacalcet (Sensipar) tab 30 mg 30 mg, Oral, Daily(AM), First dose on Sun09/09/23 at 1030, Until Discontinued Given 09/11/2023 9:04 AM EDT 30 mg Given 09/10/2023 8:07 AM EDT 30 mg Given 09/09/2023 10:48 AM EDT 30 mg dextrose 50% inj 25 mL 25 mL, IV Push, PRN Hypoglycemia, Other, For blood glucose 54 - 69 mg/dL or 70 - 100 mg/dL with symptoms AND patient is unresponsive, NPO, OR unable to swallow, Starting on Sun09/09/23 at 0815, Until Sun09/11/23 at 191, Administer IV. Recheck blood glucose after 15 minutes. Notify provider. dextrose 50% inj 50 mL 50 mL, IV Push, PRN Hypoglycemia, Other, For blood glucose below 54 mg/dL AND patient unresponsive, NPO, OR unable to swallow, Starting on Sun09/09/23 at 0815, Until Sun09/11/23 at 191, Administer IV. Recheck blood glucose in 15 minutes. Notify provider. DULoxetine (Cymbalta) DR cap 60 mg 60 mg, Oral, Daily(AM), First dose on Sun09/09/23 at 1030, Until Discontinued Given 09/11/2023 9:03 AM EDT 60 mg Given 09/10/2023 8:07 AM EDT 60 mg Given 09/09/2023 10:48 AM EDT 60 mg Ferrous Sulfate (Feosol) tab 325 mg 325 mg, Oral, DAILY(1900), First dose on Sun09/09/23 at 1900, Until Discontinued Given 09/10/2023 6:12 PM EDT 325 mg Given 09/09/2023 5:04 PM EDT 325 mg Finasteride (Proscar) tab 5 mg 5 mg, Oral, Daily(AM), First dose on Sun09/09/23 at 1030, Until Discontinued Given 09/11/2023 9:03 AM EDT 5 mg Given 09/10/2023 8:07 AM EDT 5 mg Given 09/09/2023 10:48 AM EDT 5 mg glucagon (Glucagen) inj 1 mg 1 mg, Intramuscular, PRN Hypoglycemia, Other, If patient is unresponsive, or NPO and has no IV access, Starting on Sun09/09/23 at 0815, Until Sun09/11/23 at 1910, NPO and no IV access with either [...] patient alert WITH difficulty chewing/swallowing, Starting on Sun09/09/23 at 0815, Until Sun09/11/23 at 1910, Administer gel. Recheck blood glucose after 15 minutes. Notify provider. 37.5 gram tube = 15 grams glucose = 1 each Glucose (Glutose 15) 40 % gel 30 g of glucose 30 g of glucose, Oral, PRN Hypoglycemia (low sugar), Other, For blood glucose below 54 mg/dL AND patient alert WITH difficulty chewing/swallowing, Starting on Sun09/09/23 at 0815, Until Sun09/11/23 at 1910, Administer gel. Recheck blood glucose after 15 minutes. Notify provider. 37.5 gram tube = 15 grams glucose = 1 each glucose chew tab 16 g 16 g, Oral, PRN Hypoglycemia, Other, For blood glucose 54 - 69 mg/dL or 70 - 100 mg/dL with symptoms and patient alert without difficulty chewing/swallowing., Starting on Sun09/09/23 at 0815, Until Sun09/11/23 at 191 insulin aspart (NovoLOG) inj Subcutaneous, W/MEALS AND HS, First dose on Sun24 at 0900, Until Discontinued, LOW DOSE (Elderly insulin sensitive patient): Sliding Scale Correctional insulin may be given if the patient is NPO. Dose based on standard build from Insulin Calculator. Do not modify insulin doses in administration instructions! , Glucose less than 70 instructions: Obtain STAT lab blood glucose and call covering provider., Glucose 80-150 (units): 0, Glucose 151-200 (units): 1, Glucose 201-250 (units): 2, Glucose 251-300 (units): 3, Glucose greater than 300 (units): 4, Glucose greater than 300 instructions: Give suggested insulin dose and call covering provider. Given 09/11/2023 12:29 PM EDT 2 Units Arm Right Upper Given 09/11/2023 9:04 AM EDT 1 Units Ar m Right Upper Given 09/10/2023 10:26 PM EDT 1 Units A rm Right Upper Iopamidol (Isovue 370) inj 100 mL 100 mL, Intravenous, ONCE, On [place] 09/09/23 at 0615, For 1 dose, Radiology Medication Routing (Non-IR) Given 09/09/2023 5:43 AM EDT 100 mL levETIRAcetam (Keppra) tab 500 mg 500 mg, Oral, BID (.AM/PM), First dose on Sun09/09/23 at 1030, Until Discontinued Given 09/11/2023 9:03 AM EDT 500 mg Given 09/10/2023 9:11 PM EDT 500 mg Given 09/10/2023 8:07 AM EDT 500 mg melatonin tab 3 mg 3 mg, Oral, HS PRN Insomnia, Starting on Sun09/09/23 at 0813, Until Sun09/11/23 at 1911 oxygen GAS Inhalation, OXYGEN, First dose on [place] 09/09/23 at 0800, Until Discontinued, Device/Managed by: Low Flow Device, Goal SPO2 (%): 94 or greater, Starting Device: Nasal Cannula, Initial Flow Rate (LPM): 2, Lowest Support: Nasal Cannula: Flow 0-6 LPM. Titrate up/down by 1 LPM., Titration Interval: Q2 minutes and as needed., Notify Provider: For sudden DECREASE in resting SPO2 to less than 85% and when escalating delivery device., Wean patient off Oxygen when the oxygen saturation is greater than or equal to 93% sodium chloride 0.9 % flush peripheral mohit 3 mL 3 mL, IV Push, QSHIFT, First dose on Sun09/09/23 at 0800, Until Discontinued, Do not flush if lock, PICC, or central line not in place; IV infusing or unable to flush. Given 09/10/2023 3:10 PM EDT 3 mL Given 09/10/2023 8:11 AM EDT 3 mL Given 09/10/2023 12:00 AM EDT 3 mL sodium chloride 0.9 % flush peripheral mohit 3 mL 3 mL, IV Push, QSHIFT, First dose on Sun09/09/23 at 0845, Until Discontinued, Do not flush if lock, PICC, or central line not in place; IV infusing or unable to flush. Given 09/10/2023 3:10 PM EDT 3 mL Given 09/10/2023 8:11 AM EDT 3 mL Given 09/10/2023 12:00 AM EDT 3 mL sodium chloride 0.9 % flush/inj 3 mL 3 mL, IV Push, PRN Other, Line Patency, Starting on Sun09/09/23 at 0811, Until Sun09/11/23 at 1911, Do not flush if lock, PICC, or central line not in place, IV infusing or unable to flush tamsulosin (Flomax) cap 0.4 mg 0.4 mg, Oral, Daily(AM), First dose on Sun09/09/23 at 0945, Until Discontinued, Administer 30 min after meal. This med should NOT be Crushed or Chewed or opened! ORAL administration only!! Given 09/11/2023 9:04 AM EDT 0.4 mg Given 09/10/2023 8:06 AM EDT 0.4 mg Given 09/09/2023 10:48 AM EDT 0.4 mg documented in this encounter Active and Recently Administered Medications Times are shown in EDT. Scheduled Medication Order 09/09/2023 09/10/2023 09/11/2023 amitriptyline (Elavil) tab 25 mg 25 mg, Oral, Daily(AM), First dose on Sun09/09/23 at 1030, Last dose on Josefa 09/13/23 at 0900, For 5 days 1048 (Given - Provider: Leonarda Herbert RN) 0807 (Given - Provider: Maricruz Rankin RN) 0904 (Given - Provider: Leonarda Herbert RN) atorvaSTATin (Lipitor) tab 40 mg 40 mg, Oral, Q1700, First dose on 09/09/23 at 1700, Until Discontinued 170 (Given - Provider: Leonarda Herbert RN) 1647 (Given - Provider: Maricruz Rankin RN) cinacalcet (Sensipar) tab 30 mg 30 mg, Oral, Daily(AM), First dose on 09/09/23 at 1030, Until Discontinued 1048 (Given - Provider: Leonarda Herbert RN) 0807 (Given - Provider: Maricruz Rankin RN) 0904 (Given - Provider: Leonarda Herbert RN) DULoxetine (Cymbalta) DR cap 60 mg 60 mg, Oral, Daily(AM), First dose on 09/09/23 at 1030, Until Discontinued 1048 (Given - Provider: Leonarda Herbert RN) 08 (Given - Provider: Maricruz Rankin RN) 09 (Given - Provider: Leonarda Herbert RN) Ferrous Sulfate (Feosol) tab 325 mg 325 mg, Oral, DAILY(1900), First dose on 09/09/23 at 1900, Until Discontinued 170 (Given - Provider: Leonarda Herbert RN) 181 (Given - Provider: Maricruz Rankin RN) Finasteride (Proscar) tab 5 mg 5 mg, Oral, Daily(AM), First dose on 09/09/23 at 1030, Until Discontinued 1048 (Given - Provider: Leonarda Herbert RN) 08 (Given - Provider: Maricruz Rankin RN) 0903 (Given - Provider: Leonarda Herbert, TREY) insulin aspart (NovoLOG) inj Subcutaneous, W/MEALS AND HS, First dose on 09/09/23 at 0900, Until Discontinued, LOW DOSE (Elderly insulin sensitive patient): Sliding Scale Correctional insulin may be given if the patient is NPO. Dose based on standard build from Insulin Calculator. Do not modify insulin doses in administration instructions! , Glucose less than 70 instructions: Obtain STAT lab blood glucose and call covering provider., Glucose 80-150 (units): 0, Glucose 151-200 (units): 1, Glucose 201-250 (units): 2, Glucose 251-300 (units): 3, Glucose greater than 300 (units): 4, Glucose greater than 300 instructions: Give suggested insulin dose and call covering provider. 0900 (Not Given - Provider: Leonarda Herbert RN - Reason: Other-Notify Provider - Comment: finished breakfast)1210 (Given - Provider: Leonarda Herbert RN)1704 (Given - Provider: Leonarda Herbert RN)2158 (Given - Provider: Tanvi Casiano LPN) 0746 (No Insulin - Provider: Maricruz Rankin RN - Reason: Parameter(s) Not Met)1209 (Given - Provider: Maricruz Rankin RN - Comment: [address] paez)1647 (Given - Provider: Maricruz Rankin RN)2226 (Given - Provider: Tanvi Casiano LPN) 0904 (Given - Provider: Leonarda Herbert RN)1229 (Given - Provider: Shira Sanford RN) Iopamidol (Isovue 370) inj 100 mL (COMPLETED) 100 mL, Intravenous, ONCE, On 09/09/23 at 0615, For 1 dose, Radiology Medication Routing (Non-IR) 0543 (Given - Provider: Tawny Bellamy, RT) levETIRAcetam (Keppra) tab 500 mg 500 mg, Oral, BID (.AM/PM), First dose on 09/09/23 at 1030, Until Discontinued 1048 (Given - Provider: Leonarda Herbert RN)2158 (Given - Provider: Tanvi Casiano LPN) 0807 (Given - Provider: Maricruz Rankin RN)2111 (Given - Provider: Tanvi Casiano LPN) 0903 (Given - Provider: Leonarda Herbert RN) oxygen GAS Inhalation, OXYGEN, First dose on 09/09/23 at 0800, Until Discontinued, Device/Managed by: Low Flow Device, Goal SPO2 (%): 94 or greater, Starting Device: Nasal Cannula, Initial Flow Rate (LPM): 2, Lowest Support: Nasal Cannula: Flow 0-6 LPM. Titrate up/down by 1 LPM., Titration Interval: Q2 minutes and as needed., Notify Provider: For sudden DECREASE in resting SPO2 to less than 85% and when escalating delivery device., Wean patient off Oxygen when the oxygen saturation is greater than or equal to 93% 0800 (Oxygen Off - Provider: Leonarda Herbert RN)1600 (Oxygen Off - Provider: Leonarda Herbert RN) 0000 (Oxygen Off - Provider: Tanvi Casiano LPN)0724 (Oxygen Off - Provider: Maricruz Rankin RN)1510 (Oxygen Off - Provider: Maricruz Rankin RN) 0000 (Oxygen Off - Provider: Tanvi Casiano LPN)0800 (Oxygen Off - Provider: Leonarda Herbert RN) sodium chloride 0.9 % flush peripheral mohit 3 mL 3 mL, IV Push, QSHIFT, First dose on 09/09/23 at 0800, Until Discontinued, Do not flush if lock, PICC, or central line not in place; IV infusing or unable to flush. 0800 (Given - Provider: Leonarda Herbert RN)1600 (Given - Provider: Leonarda Herbert RN) 0000 (Given - Provider: Tanvi Casiano LPN)0811 (Given - Provider: Maricruz Rankin RN)1510 (Given - Provider: Maricruz Rankin RN) 0000 (Not Given - Provider: Tanvi Casiano LPN - Reason: Order Discontinued)0800 (Not Given - Provider: Leonarda Herbert RN - Reason: Other- Please add reason in Comments - Comment: no iv) sodium chloride 0.9 % flush peripheral mohit 3 mL 3 mL, IV Push, QSHIFT, First dose on 09/09/23 at 0845, Until Discontinued, Do not flush if lock, PICC, or central line not in place; IV infusing or unable to flush. 0845 (Given - Provider: Leonarda Herbert RN)1600 (Given - Provider: Leonarda Herbert RN) 0000 (Given - Provider: Tanvi Casiano LPN)0811 (Given - Provider: Maricruz Rankin RN)1510 (Given - Provider: Maricruz Rankin RN) 0000 (Not Given - Provider: Tanvi Casiano LPN - Reason: Order Discontinued)0800 (Not Given - Provider: Leonarda Herbert RN - Reason: Other- Please add reason in Comments - Comment: no iv) tamsulosin (Flomax) cap 0.4 mg 0.4 mg, Oral, Daily(AM), First dose on Sun09/09/23 at 0945, Until Discontinued, Administer 30 min after meal. This med should NOT be Crushed or Chewed or opened! ORAL administration only!! 1048 (Given - Provider: Leonarda Herbert RN) 08 (Given - Provider: Maricruz Rankin RN) 09 (Given - Provider: Leonarda Herbert RN) PRN Medication Order 09/09/2023 09/10/2023 09/11/2023 Acetaminophen (Tylenol) tab 650 mg 650 mg, Oral, Q6H PRN Pain, Mild, Fever >38C(100.5F), Starting on Sun09/09/23 at 0813, Until Sun09/11/23 at 1910, Maximum of 4 grams (4000 mg) per day. 2252 (Given - Provider: Tanvi Casiano LPN) 2110 (Given - Provider: Tanvi Casiano LPN) calcium CARBonate (Tums E-X) tab CHEW 750 mg 750 mg, Oral, BID PRN Indigestion, Starting on Sun09/09/23 at 0813, Until Sun09/11/23 at 1910 dextrose 50% inj 25 mL 25 mL, IV Push, PRN Hypoglycemia, Other, For blood glucose 54 - 69 mg/dL or 70 - 100 mg/dL with symptoms AND patient is unresponsive, NPO, OR unable to swallow, Starting on Sun09/09/23 at 0815, Until Sun09/11/23 at 1910, Administer IV. Recheck blood glucose after 15 minutes. Notify provider. dextrose 50% inj 50 mL 50 mL, IV Push, PRN Hypoglycemia, Other, For blood glucose below 54 mg/dL AND patient unresponsive, NPO, OR unable to swallow, Starting on Sun09/09/23 at 0815, Until Sun09/11/23 at 1910, Administer IV. Recheck blood glucose in 15 minutes. Notify provider. glucagon (Glucagen) inj 1 mg 1 mg, Intramuscular, PRN Hypoglycemia, Other, If patient is unresponsive, or NPO and has no IV access, Starting on Sun09/09/23 at 0815, Until Sun09/11/23 at 1910, NPO and no IV access with either [...] patient alert WITH difficulty chewing/swallowing, Starting on Sun09/09/23 at 0815, Until Sun09/11/23 at 1910, Administer gel. Recheck blood glucose after 15 minutes. Notify provider. 37.5 gram tube = 15 grams glucose = 1 each Glucose (Glutose 15) 40 % gel 30 g of glucose 30 g of glucose, Oral, PRN Hypoglycemia (low sugar), Other, For blood glucose below 54 mg/dL AND patient alert WITH difficulty chewing/swallowing, Starting on Sun09/09/23 at 0815, Until Sun09/11/23 at 1910, Administer gel. Recheck blood glucose after 15 minutes. Notify provider. 37.5 gram tube = 15 grams glucose = 1 each glucose chew tab 16 g 16 g, Oral, PRN Hypoglycemia, Other, For blood glucose 54 - 69 mg/dL or 70 - 100 mg/dL with symptoms and patient alert without difficulty chewing/swallowing., Starting on Sun09/09/23 at 0815, Until Sun09/11/23 at 1910 melatonin tab 3 mg 3 mg, Oral, HS PRN Insomnia, Starting on Sun09/09/23 at 0813, Until Sun09/11/23 at 1910 sodium chloride 0.9 % flush/inj 3 mL 3 mL, IV Push, PRN Other, Line Patency, Starting on Sun09/09/23 at 0811, Until Sun09/11/23 at 1910, Do not flush if lock, PICC, or central line not in place, IV infusing or unable to flush documented in this encounter Advance Directives Latest [...] the patient have Health Care Power of Care Navigator? No No Code 03/30/2022 6:32 AM 03/30/2022 12:51 PM Th is order reflects the patients wishes and were consensually agreed upon. Question Answer Comments Discussion of Advance Directives occurred with: Patient Does the patient have a Living Will? No Does the patient have Health Care Power of Care Navigator? No No Code 03/23/2022 9:56 AM 03/23/2022 4:51 PM Thi s order reflects the patients wishes and were consensually agreed upon. Question Answer Comments Discussion of Advance Directives occurred with: Patient Does the patient have a Living Will? No Does the patient have Health Care Power of Care Navigator? No Full Code 11/26/2021 11:29 PM 11/30/2021 5:09 PM This order reflects the patients wishes and were consensually agreed upon. Question Answer Comments Discussion of Advance Directives occurred with: Patient/Family Care Teams [employer] Super[employer] Relationship Specialty Start Date End Date Kaiser Amanda MD [address] [id number] PCP - General Family Medicine 04/11/21 documented as of this encounter
--- OUTSIDE RECORDS SUMMARY | 2024-01-29 20:47 | External Medical Summary ---
Author Name Unknown Address Unknown Organization : Laboratory Report Ordering Provider Test Date Status BRYSON DIAZ 09/09/2023 11:38:39 Final Observation Date Value Abnormality Reference (Units ) Status Glucose Point of Care 09/09/2023 11:38:39 282 Above high normal 70-120 (mg/dL) Final Performing Location
--- OUTSIDE RECORDS SUMMARY | 2024-01-29 20:47 | External Medical Summary ---
Author Name Unknown Address Unknown Organization K1F:LABORATORY [facility] - [address] [place] [address] Laboratory Report Ordering Provider Test Date Status VERONICA NIEVES 09/10/2023 05:47:00 Final Observation Date Value Abnormality Reference (Units ) Status WBC, Total 09/10/2023 05:47:00 5.89 4.00-10.80 (K/uL) Final RBC 09/10/2023 05:47:00 3.50 4.50-5.25 (M/uL) Final Hemoglobin 09/10/2023 05:47:00 10.8 Below low normal 14.0-16.8 (g/dL) Final HCT 09/10/2023 05:47:00 32.9 Below low normal 40.0-48.4 (%) Final MCV 09/10/2023 05:47:00 94.0 82.0-99.5 (fL) Final MCH 09/10/2023 05:47:00 30.9 27.0-34.0 (pg) Final MCHC 09/10/2023 05:47:00 32.8 32.0-36.0 (g/dL) Final RDW 09/10/2023 05:47:00 14.5 11.5-15.5 (%) Final Platelets 09/10/2023 05:47:00 170 140-400 (K/uL) Final MPV 09/10/2023 05:47:00 8.9 6.6-11.1 (fL) Final Nucleated erythrocytes/100 leukocytes [Ratio] in Blood by Automated count 09/10/2023 05:47:00 0 <=0 (/100 WBCs) Final Performing Location LABORATORY [facility] - [address] [place] [address]
--- OUTSIDE RECORDS SUMMARY | 2024-01-29 20:47 | External Medical Summary ---
Author Name Unknown Address Unknown Organization K1F:LABORATORY [facility] - [address] [place] [address] Laboratory Report Ordering Provider Test Date Status EZEQUIELMARTIN 09/10/2023 05:47:00 Final Observation Date Value Abnormality Reference (Units ) Status Magnesium 09/10/2023 05:47:00 1.4 Below low normal 1.5 -2.6 (mg/dL) Final Performing Location LABORATORY [facility] - [address] [place] [address]
--- OUTSIDE RECORDS SUMMARY | 2024-01-29 20:47 | External Medical Summary ---
Author Name Unknown Address Unknown Organization K09:LABORATORY [place] [address] Laboratory Report Ordering Provider Test Date Status FERNANDO ROMO 09/12/2023 06:50:39 Final Observation Date Value Abnormality Reference (Units ) Status WBC, Total 09/12/2023 06:50:39 8.03 4.00-10.8 0 (K/uL) Final RBC 09/12/2023 06:50:39 3.76 4.50-5.25 (M/uL) Final Hemoglobin 09/12/2023 06:50:39 11.6 Below low normal 14 .0-16.8 (g/dL) Final HCT 09/12/2023 06:50:39 37.0 Below low normal 40. 0-48.4 (%) Final MCV 09/12/2023 06:50:39 98.4 82.0-99.5 (fL) Final MCH 09/12/2023 06:50:39 30.9 27.0-34.0 (pg) Final MCHC 09/12/2023 06:50:39 31.4 32.0-36.0 (g/dL) Final RDW 09/12/2023 06:50:39 14.7 11.5-15.5 (%) Final Platelets 09/12/2023 06:50:39 148 140-400 (K /uL) Final MPV 09/12/2023 06:50:39 10.3 6.6-11.1 ( fL) Final Performing Location LAB[facility]ATORY [place] [address]
--- OUTSIDE RECORDS SUMMARY | 2024-01-29 20:47 | External Medical Summary ---
Author Name Unknown Address Unknown Organization : Laboratory Report Ordering Provider Test Date Status NORY GOMEZ 09/11/2023 07:13:47 Final Observation Date Value Abnormality Reference (Units ) Status Glucose Point of Care 09/11/2023 07:13:47 164 Above high normal 70-120 (mg/dL) Final Performing Location
--- OUTSIDE RECORDS SUMMARY | 2024-01-29 20:47 | External Medical Summary ---
Author Name Unknown Address Unknown Organization K1F:LABORATORY [facility] - [address] [place] [address] Laboratory Report Ordering Provider Test Date Status KENDAL BURT 09/09/2023 05:21:33 Final Observation Date Value Abnormality Reference (Units ) Status WBC, Total 09/09/2023 05:21:33 7.27 4.00-10.80 (K/uL) Final RBC 09/09/2023 05:21:33 3.77 4.50-5.25 (M/uL) Final Hemoglobin 09/09/2023 05:21:33 11.6 Below low normal 14.0-16.8 (g/dL) Final HCT 09/09/2023 05:21:33 35.6 Below low normal 40.0-48.4 (%) Final MCV 09/09/2023 05:21:33 94.4 82.0-99.5 (fL) Final MCH 09/09/2023 05:21:33 30.8 27.0-34.0 (pg) Final MCHC 09/09/2023 05:21:33 32.6 32.0-36.0 (g/dL) Final RDW 09/09/2023 05:21:33 14.2 11.5-15.5 (%) Final Platelets 09/09/2023 05:21:33 192 140-400 (K/uL) Final MPV 09/09/2023 05:21:33 9.0 6.6-11.1 (fL) Final Nucleated erythrocytes/100 leukocytes [Ratio] in Blood by Automated count 09/09/2023 05:21:33 0 <=0 (/100 WBCs) Final Performing Location LABORATORY [facility] - [address] [place] [address]
--- OUTSIDE RECORDS SUMMARY | 2024-01-29 20:47 | External Medical Summary ---
Author Name Unknown Address Unknown Organization : Laboratory Report Ordering Provider Test Date Status BRYSON DIAZ 09/09/2023 16:42:54 Final Observation Date Value Abnormality Reference (Units ) Status Glucose Point of Care 09/09/2023 16:42:54 222 Above high normal 70-120 (mg/dL) Final Performing Location
--- OUTSIDE RECORDS SUMMARY | 2024-01-29 20:47 | External Medical Summary ---
Author Name Unknown Address Unknown Organization : Laboratory Report Ordering Provider Test Date Status NORY GOMEZ 09/10/2023 07:44:06 Final Observation Date Value Abnormality Reference (Units ) Status Glucose Point of Care 09/10/2023 07:44:06 140 Above high normal 70-120 (mg/dL) Final Performing Location
--- OUTSIDE RECORDS SUMMARY | 2024-01-29 20:47 | External Medical Summary ---
Author Name Unknown Address Unknown Organization : Laboratory Report Ordering Provider Test Date Status NORY GOMEZ 09/10/2023 21:06:10 Final Observation Date Value Abnormality Reference (Units ) Status Glucose Point of Care 09/10/2023 21:06:10 196 Above high normal 70-120 (mg/dL) Final Performing Location
--- OUTSIDE RECORDS SUMMARY | 2024-01-29 20:47 | External Medical Summary ---
Author Name Unknown Address Unknown Organization K1F:LABORATORY [facility] - [address] [place] [address] Laboratory Report Ordering Provider Test Date Status KENDAL BURT 09/09/2023 06:44:41 Final SCREENING Observation Date Value Abnormality Reference (Units ) Status SARS Coronavirus 2 09/09/2023 06:44:41 Negative N egative Final 2019 Novel Coronavirus not d etected.

This express test was developed and its performance characteristics determined by [facility]. It has not been cleared or approved [...] (RT-PCR) test, or a Centers for Disease Control-acceptable equivalent. The test is performed in a high complexity Clinical Laboratory Improvement Amendments-(CLIA) certified laboratory. The test is acceptable for SARS-CoV-2 diagnosis, surveillance, and travel within the [place] and to most countries. Please check with local testing authorities about requirements before travel.

The validation of bronchial specimens, tracheal aspirates, and sputum for this assay was developed and performance characteristics determined by [facility]. The validation of alternate specimen types has not been cleared or approved by the U.S. Food and Drug Administration (FDA). It has been determined that such clearance is not necessary. Performing Location LABORATORY [facility] - [address] [place] [address]
--- OUTSIDE RECORDS SUMMARY | 2024-01-29 20:47 | External Medical Summary ---
Author Name Unknown Address Unknown Organization K1F:LABORATORY [facility] - [address] [place] [address] Laboratory Report Ordering Provider Test Date Status VERONICA NIEVES 09/10/2023 05:47:00 Final Observation Date Value Abnormality Reference (Units ) Status BUN 09/10/2023 05:47:00 18 6-20 (mg/dL) Final Creatinine 09/10/2023 05:47:00 0.9 0.6-1.2 (mg/dL) Final Glomerular filtration rate/1.73 sq M.predicted [Volume Rate/Area] in Serum, Plasma or Blood by Creatinine-based formula (CKD-EPI) 09/10/2023 05:47:00 >90 >=60 (mL/min) Final eGFR is calculated based on the CKD-EPI 2020 equation Sodium 09/10/2023 05:47:00 143 135-146 (m mol/L) Final Potassium 09/10/2023 05:47:00 3.9 3.5-5.1 (m mol/L) Final Cl 09/10/2023 05:47:00 107 98-107 (mm ol/L) Final CO2 09/10/2023 05:47:00 25 22-32 (mmo l/L) Final Anion gap 09/10/2023 05:47:00 11 7-15 (mmol /L) Final Glucose 09/10/2023 05:47:00 163 Above high normal 70 -120 (mg/dL) Final Calcium 09/10/2023 05:47:00 9.2 8.4-10.2 ( mg/dL) Final Performing Location LABORATORY [facility] - [address] [address]
--- OUTSIDE RECORDS SUMMARY | 2024-01-29 20:47 | External Medical Summary ---
Author Name Unknown Address Unknown Organization K1F:LABORATORY [facility] - [address] [place] [address] Laboratory Report Ordering Provider Test Date Status KENDAL BURT 09/09/2023 06:01:49 Final Cutoff Concentrations:
Drug Level
Amphetamines 500 ng/mL
Benzodiazepines 100 ng/mL
Cannabinoids 50 ng/mL
Cocaine Metabolite 150 ng/mL
Fentanyl 1 ng/mL
Hydrocodone / Hydromorphone 300 ng/mL
Methadone Metabolite 100 ng/mL
Morphine / Codeine 300 ng/mL
Oxycodone / Oxymorphone 100 ng/mL

Screening results are presumptive and can only be used for medical purposes. Positive screening results are reflexed to confirmatory testing. Observation Date Value Abnormality Reference (Units ) Status Amphetamines, Urine screen 09/09/2023 06:01:49 Negative Negative Final Benzodiazepines, Urine screen 09/09/2023 06:01:49 Negative Negative Final Cannabinoids, Urine screen 09/09/2023 06:01:49 Negative Negative Final Cocaine Metabolite, Urine screen 09/09/2023 06:01:49 Negative Negative Final fentaNYL [Presence] in Urine by Screen method 09/09/2023 06:01:49 Negative Negative Final HYDROcodone [Presence] in Urine by Screen method 09/09/2023 06:01:49 Negative Negative Final 7-Wftuurlytx-1,5-Dimeth yl-3,3-Diphenylpyrrolid ine (EDDP) [Presence] in Urine 09/09/2023 06:01:49 Negative Negative Final Opiates, Urine screen 09/09/2023 06:01:49 Negative Negative Final oxyCODONE [Presence] in Urine by Screen method 09/09/2023 06:01:49 Negative Negative Final Performing Location [facility] [address] [place] [address]
--- OUTSIDE RECORDS SUMMARY | 2024-01-29 20:47 | External Medical Summary ---
Author Name Unknown Address Unknown Organization : Laboratory Report Ordering Provider Test Date Status NORY GOMEZ 09/10/2023 11:45:26 Final Observation Date Value Abnormality Reference (Units ) Status Glucose Point of Care 09/10/2023 11:45:26 303 Above high normal 70-120 (mg/dL) Final Performing Location
--- OUTSIDE RECORDS SUMMARY | 2024-01-29 20:47 | External Medical Summary ---
Author Name Unknown Address Unknown Organization K1F:LABORATORY [facility] - [address] [address] Laboratory Report Ordering Provider Test Date Status KENDAL BURT 09/09/2023 05:21:33 Final Observation Date Value Abnormality Reference (Units ) Status SYNC LEUKOCYTES IN BLOOD BY AUTOMATED COUNT 09/09/2023 05:21:33 7.27 4.00-10.80 (K/uL) Final Segs 09/09/2023 05:21:33 50.0 40.0-75.0 (%) Final Lymphs % 09/09/2023 05:21:33 33.7 18.0-42.0 (%) Final Monos 09/09/2023 05:21:33 8.3 1.0-11.0 (%) Final Eosinophils 09/09/2023 05:21:33 6.9 Above high normal 0.0-6.0 (%) Final Basos 09/09/2023 05:21:33 0.7 0.0-2.0 (%) Final Immature Granulocyte, Percent 09/09/2023 05:21:33 0.4 0.0-2.0 (%) Final Absolute Segs 09/09/2023 05:21:33 3.64 1.80-7.70 (K/uL) Final Lymphs, absolute 09/09/2023 05:21:33 2.45 1.00-4.80 (K/ul) Final Monos, Abs 09/09/2023 05:21:33 0.60 0.00-1.10 (K/uL) Final Eos, Abs 09/09/2023 05:21:33 0.50 0.00-0.70 (K/uL) Final Basos, Abs 09/09/2023 05:21:33 0.05 0.00-0.20 (K/uL) Final Immature Granulocytes, Number 09/09/2023 05:21:33 0.03 0.00-0.20 (K/uL) Final Performing Location LABORATORY [facility] - [facility] [address] [place] [address]
--- OUTSIDE RECORDS SUMMARY | 2024-01-29 20:47 | External Medical Summary ---
Author Name Unknown Address Unknown Organization : Laboratory Report Ordering Provider Test Date Status NORY GOMEZ 09/11/2023 11:37:52 Final Observation Date Value Abnormality Reference (Units ) Status Glucose Point of Care 09/11/2023 11:37:52 211 Above high normal 70-120 (mg/dL) Final Performing Location
--- OUTSIDE RECORDS SUMMARY | 2024-01-29 20:47 | External Medical Summary ---
Author Name Unknown Address Unknown Organization : Laboratory Report Ordering Provider Test Date Status NORY GOMEZ 09/09/2023 21:45:29 Final Observation Date Value Abnormality Reference (Units ) Status Glucose Point of Care 09/09/2023 21:45:29 198 Above high normal 70-120 (mg/dL) Final Performing Location
--- OUTSIDE RECORDS SUMMARY | 2024-01-29 20:47 | External Medical Summary | Summary of Care ---
Author Name Unknown Organization [facility] Address [address] [place] [address] Phone [phone] Care Team Providers Care Nsh Teacher Name Role Phone Kaiser Amanda MD Primary Care Provider [phone] Encounter Details Date Type Department Care Team (Late st Contact Info) Description 09/06/[address] [facility] [address] [facility] [place] [phone] Kaiser Amanda MD [address] [facility] [place] [address] Allergies Active Allergy Reactions Criticality Noted [...] of less than 7.5% ([facility]) USE STRIP TO CHECK GLUCOSE ONCE DAILY 100 Strip 3 4 Suspended Additional Information metFORMIN HCl 1000 MG Oral Tablet (Glucophage) TAKE 1 TABLET BY MOUTH TWICE A DAY WITH BREAKFAST AND DINNER 180 Tablet 1 4 Suspended Additional Information Nitroglycerin 0.4 MG Sublingual Tablet Sublingual (Nitrostat)Indicat ions:Stable angina ([facility]) Place 1 Tablet under the [...] Telephone Encounter - Kaiser Amanda MD - 09/10/2023 1:50 PM EDT Spoke with trauma surgery from [facility]. Relayed last echo fall 2021 (normal), fine to hold warfarin until discharge appointment. documented in this encounter Plan of Treatment Upcoming Encounters Date Type Department Care Team (Late st Contact Info) Description 09/12/2023 5:50 PM EDT Anticoagulation Pharmacy, [address] [address] Pharmacist2, [facility] [place] [address] [id number] 09/21/2023 9:00 AM EDT Nurse Only Urologstephen Dumontstephen [address] [place] [phone] [place], Nurse Urologstephen Boogie RN [address] [place] [address] 10/22/2023 9:15 AM EDT Office Visit Ashwini Dumontstephen [address] [place] [address] Bert Boogie Jr., [facility] [address] [place] [address] 01/21/2024 2:00 PM EDT Office Visit Endocrinology, [place] [address] [place] [address] Sakina Jones MD [address] [place] [address] 01/25/2024 3:30 PM EDT Office Visit [facility] [address] [place] [address] Laney Hogue MD [address] [place] [address] 02/25/2024 9:20 AM EDT Office Visit [facility] [place] [address] [phone] Kaiser Amanda MD [address] [address] Scheduled Procedures Name Priority Associated Diagnoses Date/Ti [...] 04/11/2021, Additional history exists GFR 09/09/2024 09/10/2023, 08/13, 09/04/2023, Additional history exists DXA Scan 01/25/2025 [...] D LEVEL ONCE IN A LIFETIME-USE SMARTSET# [id number] Completed 07/26/2023, 02/26/2023, 01/23/2023, Additional history exists [...] this encounter Medical Devices Implanted Type Area Boilermaker Central Steam Plant Device Identifier Shelf Expiration Date Model / Serial / Lot Cement Bone Simplex Hv & G - [id number] Implanted:Qty: 2 on 09/02/2020 by Gianni Hubbard MD at OR [facility] Right: Hip LUDY : ORTH[employer] 08/11/2021 [id number] / / [id number] Spacer Ring Aclde Distal Lg 14 - [id number] Implanted:Qty: 1 on 09/02/2020 by Gianni Hubbard MD at OR [facility] Right: Hip LUDY : ORTHOPAED[employer] 11/25/2024 [id number] / / Accolade C Cs 127 6 37/158 - [id number] Implanted:Qty: 1 on 09/02/2020 by Gianni Hubbard MD at OR [facility] Right: Hip LUDY : ORTHOPAEDICS 05/29/2023 [id number] / / [id number] Hip Cocr Lfit Head V40 28/+4 - [id number] Implanted:Qty: 1 on 09/02/2020 by Gianni Hubbard MD at OR [facility] Right: Hip LUDY : ORTHOPAEDICS 11/15/2024 [id number] / / [id number] Hip Head Bipol Uhr Uni 28x52 - [id number] Implanted:Qty: 1 on 09/02/2020 by Gianni Hubbard MD at OR [facility] Right: Hip LUDY : ORTHOPAEDICS 11/25/2024 [id number] / / [id number] Lens Intraoc 17.5 - [id number] - [id number] Implanted:Qty: 1 on 03/23/2022 by Rad Morgan MD at OR [facility] Left: Eye [employer]CH & [employer]OMB 10/11/2026 [id number] / [id number] / [id number] Lens Intraoc 18.0 - [id number] - [id number] Implanted:Qty: 1 on 03/30/2022 by Rad Morgan MD at OR [facility] Right: Eye [employer] LOMB 01/11/2027 [id number] / [id number] / [id number] documented as of this encounter Advance Directives [...] the patient have Health Care Power of Quarry Plant Crusher Operator? No No Code 03/30/2022 6:32 AM 03/30/2022 12:51 PM Th is order reflects the patients wishes and were consensually agreed upon. Question Answer Comments Discussion of Advance Directives occurred with: Patient Does the patient have a Living Will? No Does the patient have Health Care Power of Quarry Plant Crusher Operator? No No Code 03/23/2022 9:56 AM 03/23/2022 4:51 PM Thi s order reflects the patients wishes and were consensually agreed upon. Question Answer Comments Discussion of Advance Directives occurred with: Patient Does the patient have a Living Will? No Does the patient have Health Care Power of Quarry Plant Crusher Operator? No Full Code 11/26/2021 11:29 PM 11/30/2021 5:09 PM This order reflects the patients wishes and were consensually agreed upon. Question Answer Comments Discussion of Advance Directives occurred with: Patient/Family Care Teams Nsh Teacher Relationship Specialty Start Date End Date Kaiser Amanda MD [address] [phone] PCP - General Family Medicine 04/11/21 documented as of this encounter
--- OUTSIDE RECORDS SUMMARY | 2024-01-29 20:47 | External Medical Summary ---
Author Name Unknown Address Unknown Organization K1F:LABORATORY [facility] - [place] [address] Laboratory Report Ordering Provider Test Date Status KENDAL BURT 09/09/2023 06:01:49 Final Observation Date Value Abnormality Reference (Units ) Status RBC, Urine 09/09/2023 06:01:49 30-49 Abnormal 0-2 (/HPF) Final WBC, Urine 09/09/2023 06:01:49 0-2 0-2 (/HPF) Final Bacteria [#/area] in Urine sediment by Microscopy high power field 09/09/2023 06:01:49 101-150 Abnormal 0-25 (/HPF) Final Performing Location LABORATORY [facility] - [address] [place] [address]
--- OUTSIDE RECORDS SUMMARY | 2024-01-29 20:48 | External Medical Summary ---
Author Name Unknown Address Unknown Organization K1F:LABORATORY [facility] - [address] [place] [address] Laboratory Report Ordering Provider Test Date Status LYSSA CROWLEY 09/04/2023 21:57:41 Final Observation Date Value Abnormality Reference (Units ) Status Troponin T 09/04/2023 21:57:41 18 <=22 (ng/ L) Final Performing Location LABORATORY [facility] - [address] [place] [address]
--- OUTSIDE RECORDS SUMMARY | 2024-01-29 20:48 | External Medical Summary | Summary of Care ---
Author Name Unknown Organization [facility] Address [address] [place] [address] Phone [phone] Care Team Providers Care Medical Assisting Program Director Name Role Phone Kaiser Amanda MD Primary Care Provider [phone] Reason for Visit * Reason Onset Date Comments TRIAGE 09/07/2023 Encounter Details Date Type Department Care Team (Late st Contact Info) Description 09/07/2023 Telephone Urology Rolo Colon [address] [place] [address] [id number] Bert Boogie Jr., MD [address] [place] [address] [place] [address] TRIAGE Allergies Active Allergy Reactions Criticality Noted Date Comments Cat Dander Itching 07/14/2016 documented as of this encounter (statuses as of 09/07/2023) Medications Medication Sig Dispensed Refills Start Date [...] at noon. 30 Tablet 3 04/18/2022 Active Warfarin Sodium 5 MG Oral Tablet (Coumadin) Take 1-2 Tablets (5-10 mg) by mouth in the morning. Or as directed by anticoagulation clinic. 180 Tablet 3 04/18/2022 Active Mupirocin 2 % [...] anxiety,Type 2 diabetes mellitus with polyneuropathy ([facility]) Take [...] THEN RINSE 120 mL 0 07/06/2023 Active Vaprema VerRe.Mu In Vitro Strip (Glucose Blood)Indications:T ype 2 [...] as of this encounter (statuses as of 09/07/2023) Active Problems Problem Noted Date Diagnosed Date Dysautonomia 07/26/2023 Paraplegia 08/23/2022 Syncope and collapse [...] as of this encounter (statuses as of 09/07/2023) Resolved Problems Problem Noted Date Diagnosed Date [...] as of this encounter (statuses as of 09/07/2023) Immunizations Name Administration Dates Next Due COVID-19 [...] encounter Miscellaneous Notes * Telephone Encounter - Krystina Urbano OSA - 09/07/2023 1:23 PM EDT Spoke to pt's . Pt is scheduled for TOV 09/[address] Boogie 10/21 * Telephone Encounter - Nasreen Avila PA-C - 09/07/2023 12:25 PM EDT Trauma PA from [facility] called the office regarding voiding trial with catheter in place. Patient had a fall and multiple cerebral contusions and during admission required a Chaparro catheter for retention. Stated he removed the catheter a few days ago but the patient required multiple straight catheter so it was replaced today prior to discharge. He noted he is going to add Flomax for a month supply. Please have patient is scheduled for TOV in 2 weeks and move up his provider appointment to 2 months. Please call to coordinate visits. Thanks! * Telephone Encounter - Everett Combs OSA - 09/07/2023 12:16 PM EDT Pt is being discharge from [facility] and has a cathter place. He will need to be seen to hav it remove. Thank You Everett documented in this encounter Plan of Treatment Upcoming Encounters Date Type Department Care Team (Late st Contact Info) Description 09/10/2023 1:30 PM EDT Anticoagulation Pharmacy, [place] [address] [address] [id number] Pharmacist1, [facility] [place] [address] [id number] 09/13/2023 3:00 PM EDT Office Visit [facility] [place] [address] [phone] Kaiser Amanda MD [address] [address] 09/14/2023 11:00 AM EDT [facility] [address] [phone] Javier Torres PA-C [address] [address] 09/21/2023 9:00 AM EDT Nurse Only Rolo Sun [address] [place] [address] [phone] Rolo, Nurse Urologstephen Boogie RN [address] [place] [address] [address] 10/22/2023 9:15 AM EDT Office Visit Urology Aleida GentryRolo [address] [place] [address] [address] Bert Boogie Jr., MD [address] [facility] [address] [place] [address] 01/21/2024 2:00 PM EDT Office Visit Endocrinology, [place] [address] [place] [address] Sakina Jones MD [address] [place] [address] 01/25/2024 3:30 PM EDT Office Visit [facility] [address] [place] [address] Laney Hogue MD [address] [place] [address] 02/25/2024 9:20 AM EDT [facility] [phone] Kaiser Amanda MD [address] [facility] [place] [address] Scheduled Procedures Name Priority Associated Diagnoses Date/Ti me COLONOSCOPY FLEXIBLE PROXIMA L DIAGNOSTIC Recall History of colonic polyps Health Maintenance Due Date Last Done Comments COVID-19 Vaccine ( season) 2023 05/19/2022, 04/23/2021, [...] 0 06/09/2022, 04/11/2021, Additional history exists GFR 09/03/2024 09/04/2023, 07/12, 04/10/2023, Additional history exists DXA Scan 01/25/2025 01/25/2023, 01/2021, 12/10/2018 COLONOSCOPY-EVERY 3 YRS AGES 18-100 03/16/2025 03/16/2022, 03/16/2022, 08/06/2009 Lipid Panel 02/27/2028 02/26/2023, 08/2021, 05/26/2021, Additional history exists DTaP,Tdap,and Td Vaccines (3 - Td or Tdap) 12/10/2029 12/11/2019, 06/03/2014 Pneumococcal Vaccine: 65+ Years Completed 05/22/2017, 02/23/2016, 09/25/2011 Zoster Vaccines Completed 03/26/2019, 12/12, 09/27/2011 Colonoscopy Discontinued 03/16/2022, 07/2021, 08/06/2009 Colorectal Cancer Screening Discontinued Influenza Vaccine (FLU shot) Completed 02/14/2023, 03/16/2022, 02/25/2021, Additional history exists VITAMIN D LEVEL ONCE IN A LIFETIME-USE SMARTSET# [id number] Completed 07/26/2023, 02/26/2023, 01/23/2023, Additional history exists Cologuard Discontinued Fecal Occult Blood Test Discontinued GARDASIL-HPV IMMUNIZATION SERIES Aged Out No longer eligible based on patient's age to complete this topic Hepatitis B Aged Out No longer eligi ble based on patient's age to complete this topic MENINGOCOCCAL (MENACTRA/MENVEO) Aged Out No longer eligible based on patient's age to complete this topic Sigmoidoscopy Discontinued documented as of this encounter Medical Devices Implanted Type Area Support Staff Device Identifier Shelf Expiration Date Model / Serial / Lot Cement Bone Simplex Hv & G - [id number] Implanted:Qty: 2 on 09/02/2020 by Gianni Hubbard MD at [facility] Right: Hip LUDY : [employer] 08/11/2021 [id number] / / [id number] Spacer Ring Aclde Distal Lg 14 - [id number] Implanted:Qty: 1 on 09/02/2020 by Gianni Hubbard MD at [facility] Right: Hip [employer] : ORTHOPA[employer] 11/25/2024 [id number] / / Accolade C Cs 127 6 37/158 - [id number] Implanted:Qty: 1 on 09/02/2020 by Gianni Hubbard MD at [facility] Right: Hip LUD[employer] : ORTHOPA[employer] 05/29/2023 [id number] / / [id number] Hip Cocr Lfit Head V40 28/+4 - [id number] Implanted:Qty: 1 on 09/02/2020 by Gianni Hubbard MD at [facility] Right: Hip [employer] : ORTHOPA[employer] 11/15/2024 [id number] / / [id number] Hip Head Bipol Uhr Uni 28x52 - [id number] Implanted:Qty: 1 on 09/02/2020 by Gianni Hubbard MD at [facility] Right: Hip [employer] : ORTHOPA[employer] 11/25/2024 [id number] / / [id number] Lens Intraoc 17.5 - [id number] - [id number] Implanted:Qty: 1 on 03/23/2022 by Rad Morgan MD at [facility] Left: Eye [employer]CH [employer]OM[employer] 10/11/2026 [id number] / [id number] / [id number] Lens Intraoc 18.0 - [id number] - [id number] Implanted:Qty: 1 on 03/30/2022 by Rad Morgan MD at OR [facility] Right: Eye [employer]CH [employer]OMB 01/11/2027 [id number] / [id number] / [id number] documented as of this encounter Advance Directives [...] the patient have Health Care Power of Barback? No Code Status History Code Status Date Activated Date Inactivated Comments No Code 03/30/2022 6:32 AM 03/30/2022 12:51 PM Th is order reflects the patients wishes and were consensually agreed upon. Question Answer Comments Discussion of Advance Directives occurred with: Patient Does the patient have a Living Will? No Does the patient have Health Care Power of Barback? No No Code 03/23/2022 9:56 AM 03/23/2022 4:51 PM Thi s order reflects the patients wishes and were consensually agreed upon. Question Answer Comments Discussion of Advance Directives occurred with: Patient Does the patient have a Living Will? No Does the patient have Health Care Power of Barback? No Full Code 11/26/2021 11:29 PM 11/30/2021 5:09 PM This order reflects the patients wishes and were consensually agreed upon. Question Answer Comments Discussion of Advance Directives occurred with: Patient/Family Full Code 11/14/2021 6:23 PM 11/17/2021 5:13 PM This or michael reflects the patients wishes and were consensually agreed upon. Question Answer Comments Discussion of Advance Directives occurred with: Patient Care Teams Medical Assisting Program Director Relationship Specialty Start Date End Date aKiser mAanda MD [address] [phone] PCP - General Family Medicine 04/11/21 documented as of this encounter
--- OUTSIDE RECORDS SUMMARY | 2024-01-29 20:48 | External Medical Summary ---
Author Name Unknown Address Unknown Organization [id number]:[facility] [address] [place] [address] Laboratory Report Ordering Provider Test Date Status LYSSA CROWLEY 09/04/2023 22:19:43 Final ADMITTED patient Observation Date Value Abnormality Reference (Units ) Status Adenovirus DNA [Presence] in Nasopharynx by GREGORY with non-probe detection 09/04/2023 22:19:43 Negative Negative Final Human coronavirus 229E RNA [Presence] in Nasopharynx by GREGORY with non-probe detection 09/04/2023 22:19:43 Negative Negative Final Human coronavirus HKU1 RNA [Presence] in Nasopharynx by GREGORY with non-probe detection 09/04/2023 22:19:43 Negative Negative Final Human coronavirus NL63 RNA [Presence] in Nasopharynx by GREGORY with non-probe detection 09/04/2023 22:19:43 Negative Negative Final Human coronavirus OC43 RNA [Presence] in Nasopharynx by GREGORY with non-probe detection 09/04/2023 22:19:43 Negative Negative Final SARS-CoV-2 (COVID-19) RNA [Presence] in Nasopharynx by GREGORY with non-probe detection 09/04/2023 22:19:43 Negative Negative Final Human metapneumovirus RNA [Presence] in Nasopharynx by GREGORY with non-probe detection 09/04/2023 22:19:43 Negative Negative Final Rhinovirus+Enterovirus RNA [Presence] in Nasopharynx by GREGORY with non-probe detection 09/04/2023 22:19:43 Negative Negative Final Influenza virus A RNA [Presence] in Nasopharynx by GREGORY with non-probe detection 09/04/2023 22:19:43 Negative Negative Final Influenza virus B RNA [Presence] in Nasopharynx by GREGORY with non-probe detection 09/04/2023 22:19:43 Negative Negative Final Parainfluenza virus 1 RNA [Presence] in Nasopharynx by GREGORY with non-probe detection 09/04/2023 22:19:43 Negative Negative Final Parainfluenza virus 2 RNA [Presence] in Nasopharynx by GREGORY with non-probe detection 09/04/2023 22:19:43 Negative Negative Final Parainfluenza virus 3 RNA [Presence] in Nasopharynx by GREGORY with non-probe detection 09/04/2023 22:19:43 Negative Negative Final Parainfluenza virus 4 RNA [Presence] in Nasopharynx by GREGORY with non-probe detection 09/04/2023 22:19:43 Negative Negative Final Respiratory syncytial virus RNA [Presence] in Nasopharynx by GREGORY with non-probe detection 09/04/2023 22:19:43 Negative Negative Final Bordetella pertussis.pertussis toxin promoter region [Presence] in Nasopharynx by GREGORY with non-probe detection 09/04/2023 22:19:43 Negative Negative Final Chlamydophila pneumoniae DNA [Presence] in Nasopharynx by GREGORY with non-probe detection 09/04/2023 22:19:43 Negative Negative Final Mycoplasma pneumoniae DNA [Presence] in Nasopharynx by GREGORY with non-probe detection 09/04/2023 22:19:43 Negative Negative Final Bordetella parapertussis [id number] DNA [Presence] in Nasopharynx by GREGORY with non-probe detection 09/04/2023 22:19:43 Negative Negative Final
The primers that detect Rhinovirus may cross react with some Enterorviruses. The validation of bronchial specimens, tracheal aspirates, and throats for this assay was developed and performance characteristics determined by [employer]. The validation of alternate specimen types has not been cleared or approved by the U.S. Food and Drug Administration (FDA). It has been determined that such clearance or approval is not necessary. [address]forming [address] [place] [address]
--- OUTSIDE RECORDS SUMMARY | 2024-01-29 20:48 | External Medical Summary | Summary of Care ---
Author Name Unknown Organization [facility] Address [address] [place] [address] Phone [phone] Care Team Providers Care Ultrasound Technologist Sonographer Name Role Phone Kaiser Amanda MD Primary Care Provider [phone] Reason for Visit * Reason Comments Trauma * Auth/Cert Specialty Diagnoses / Procedures Referred By Fauzia t Referred To Contact [facility] [address] [place] [address] Phone: [phone] Emergency Medicine [facility] [address] [place] [address] Referral ID Status Reason Start Date Expiration Date Visits Re quested Visits Authorized [id number] Encounter Details Date Type Department Care Team (Late st Contact Info) Description 09/04/2023 9:37 PM EDT - 09/04/2023 11:38 PM EDT Emergency [facility] Emergency Department ([facility]) [address] [place] [address] Carline Omalley, [address] [facility] [place] [id number] Laceration of scalp, initial encounter (Primary Dx); Fall; Intracranial hemorrhage (HCC); Elevated lactic acid level Discharge Disposition: Short Term Hospital Allergies Active Allergy Reactions Criticality Noted Date Comments Cat Dander Itching 07/14/2016 documented as of this encounter (statuses as of 09/05/2023) Medications Medication Sig Dispensed Refills Start Date [...] as of this encounter (statuses as of 09/05/2023) Active Problems Problem Noted Date Diagnosed Date [...] as of this encounter (statuses as of 09/05/2023) Resolved Problems Problem Noted Date Diagnosed Date [...] as of this encounter (statuses as of 09/05/2023) Immunizations Name Administration Dates Next Due COVID-19 mRNA, LNP-s, No Pre serve, 2-Dose Series (saambaa) 04/23/2021,08/09/2020,07/12/2020 Covid-19, Mrna, Lnp-s, Pf, B ivalent, [...] the money to buy more. Never true 06/09/19 23 Within the past 12 months, t he food you bought just didn't last and you didn't have money to get more. Never true 06/09/2022 Sex and Gender Information Value Date Recorded Sex Assigned at Male 12/05/2018 2:23 PM EDT Gender Identity Male 12/05/2018 2:23 PM EDT Sexual Orientation Straight 12/05/2018 2: 23 PM EDT Job Start Date Occupation Industry Not on file Not on file Not on file documented as of this encounter Last Filed Vital Signs Vital Sign Reading Time Taken Comments Blood Pressure 164/91 09/04/2023 11:30 PM EDT Pulse 91 09/04/2023 11:30 PM EDT Temperature 36.4 C (97.5 F) 09/04/2023 9:35 PM ED T Respiratory Rate 17 09/04/2023 11:30 PM EDT Oxygen Saturation 100% 09/04/2023 11:30 PM EDT Inhaled Oxygen Concentration - - Weight - - Height 175.3 cm (5' 9") 09/04/2023 9:35 PM EDT Body Mass Index - - documented in [...] (15 years old or older) Yes 04/15/20 22 Cognitive Status Response Date of Assessm ent Because of a physical, menta l, or emotional condition, do you have serious difficulty concentrating, remembering, or making decisions? (5 years old or older) No 04/15/2022 documented as of this encounter ED Notes * Carline Omalley DO - 09/04/2023 11:31 PM EDTAssociated Order(s): Laceration Repair Laceration Repair Date/Time: 09/04/2023 11:32 PM Performed by: Roberto Farris CRNP Authorized by: Carline Omalley DO Consent: Consent obtained: Verbal Consent given by: Patient Risks, benefits, and alternatives were discussed: yes Risks discussed: Pain [place] protocol: Patient identity confirmed: Verbally with patient Laceration details: Location: Anogenital Length (cm): 4 Depth (mm): 5 Repair type: Repair type: Simple Treatment: Area cleansed with: Saline Skin repair: Repair method: Atif Number of atif: 12 Approximation: Approximation: Close Vermilion border: well-aligned Post-procedure details: Dressing: Non-adherent dressing Patient tolerance of procedure: Tolerated well, no immediate complications Carline Omalley was the attending physician who supervised the care of this patient. PHILIP Thomas * Carline Omalley DO - 09/04/2023 9:40 PM EDT HISTORY OF PRESENT ILLNESS Lewis Alarcon is a 72 year old male who presents to the ED for evaluation of Trauma. The patient was seen at 09/04/232139. 72-year-old with a history of Hodgkin's disease, type 2 diabetes, DVT/PE, anticoagulation on Coumadin, syncope/dysautonomia Patient is uncertain the events of how he fell, he has not aware of the year but knows this has [facility]. He denied anticoagulation, though medication lists as Coumadin. Reports a low headache, no vision changes or numbness tingling weakness. Denies chest pain abdominal pain or shortness of breath or nausea. Denies fever recent illness. Denies injury to the arms or legs either. He was soiled. There was bandaged 4 cm laceration to the back of the left side of the head. 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 na Treatments prior to arrival include collar. PRIMARY SURVEY Airway assessed, clear and unobstructed with no secretions or blood in airway Breathing assessed, equal chest rise with equal breath sounds bilaterally, no gross thoracic instability Circulation assessed, pulses present in all extremities, no actively bleeding wounds Disability/Neuro assessed, awake, alert, follows commands with all extremities Exposure patient fully exposed and clothing removed to allow assessment of injuries Is a cervical collar already in place as the patient arrived? Yes Did [facility] ED staff place a cervical collar on the patient on arrival? No IF EITHER ANSWER IS YES, delete the "cervical spine assessment" section XRAYS Portable 1 view chest xray was ordered? Yes Reason why NOT ordered: Preliminary reading: neg for ptx Portable 1 view pelvis xray was ordered? Yes Reason why NOT ordrered: Preliminary reading: neg for open pelvis PROCEDURE: eFAST Ultrasound exam No abd/pel trauma The patient's allergies, past history, and medications were reviewed. PHYSICAL EXAM Initial Vitals (see all): BP 157/105 | Pulse 94 | Resp 20 | Temp 97.5 | O2 97 %, Room Air, None | Weight 79.38 kg | Height 175.3 cm | BMI 25.84 kg/m2 Initial Pain Assessment (see all): 5 (moderate pain)/10, location: back ([facility] Adult Scale 0-10) General: alert, comfortable-appearing, NAD HEENT/Neck: Head: NCAT, face symmetric, no tenderness or deformity to the skull or face Eyes: sclera white, conjunctiva pink, perrl 2mm/eomi Ears: external normal, TMs normal Nose: external normal, Throat: mucous membranes dry Neck: collar in place, no midline tenderness stepoffs or deformities, trachea midline Cardio: s1s2 and regular, no murmur rub or gallop Pulm: lungs clear with no wheeze, rhonchi, rales; no increased WOB, no accessory muscle use Chest: no tenderness, deformity, or ecchymosis Abdomen: non-acute, soft nontender, non-distended, without ecchymosis palpable mass rebound or guarding Pelvis: stable to anterior-posterior compression, nontender Back: no midline tenderness ecchymosis stepoffs or deformities Neuro: GCS 15, fairly normal sensorium and speech, symmetric UE and LE strength 5.5 and nml sensation Skin: warm, dry, intact with no erythema - had BM in underwear - some scattered bruising - two 1cm or less lesions to top of scalp w purulence Extremities: no gross deformities, wwp x4 pp +1 PROCEDURES AND TREATMENTS ED Orders | ED Results MEDICAL DECISION MAKING Nursing notes and vital signs were reviewed. ED Course as of 09/04/232337e Sep 04, [id number] Differential diagnosis includes ICH, spine or spinal cord injury, solid or visceral organ injury, bony fracture or dislocation, sprain, strain, contusion, whiplash, or concussion + glucose metabolic electrolyte abnormality, arrhythmia, coronary syndrome, infection, dehydration, orthostasis, vagal episode, among others. [TS] 2231 Tetanus 2019 K[employer] and vitK ordered. Initiating transfer call to [facility], pt/family preference. Got call from [facility] just prior [TS] 2234 EKG interpreted by me, sinus rhythm rate 89, normal axis/intervals, no ischemia arrhythmia inflammation high-grade heart block or other significant abnormality. Compared to last on file [TS] 223 Largely similar last EKG [TS] 2235 Family provides history that uncertain about mechanism of fall, though was caught between the toilet in the tub, was walking using his walker. Was more confused than normal as he was looking up at the ceiling and was unsure where he was. Cousin is who found him, he had not lost consciousness. was out of the house [TS] 2250 Call w [facility] now [TS] 2255 Transfer to higher level of care: Due to the patient's need for higher level of care not available locally at this time, the patient will be transferred to another medical facility capable of providing that level of care. I've discussed patient's condition and basic plan with the patient and/or family and they are in full agreement and understand the reason for transfer. Appropriate transferdocumentation has been completed. Time decision to transfer was made: 10:57 PM Facility transferred to: [facility] Accepting Physician: Trixie Able, Acceptance time: 10:57 PM Mode of Transfer: ALS [TS] 2331 12 atif [TS] 2337 Reviewed possibility of 2 rib fractures though no pain with family. Also exophytic right kidney lesion that appears to be stable (PCP follow-up), they knew about the gallbladder. They were also told about left renal cyst [TS] ED Course User Index [TS] Carline Omalley DO In summary, this is a 72-year-old who presents for fall. Differential diagnosis as per ED course. Uncertain cause of fall, and patient does not remember. It was unwitnessed. He is on anticoagulation.He was made a trauma alert. CT chest abdomen pelvis still pending. Head C-spine significant for intracranial hemorrhage, subarachnoid hemorrhage and subdural hemorrhage. Anticoagulation was reversed.Given IV fluids for elevated lactate. He is up-to-date on tetanus. Laceration repair by advanced practitioner. Family who found him did not report seizure-like activity or loss of consciousness See ED course, he did not have discomfort consistent with rib fractures and family was updated on incidentals. Still think he is confused/asking why he is here Amount and/or Complexity of Data Reviewed Labs: ordered. Radiology: ordered. ECG/medicine tests: ordered. Risk Prescription drug management. Clinical Impressions Fall Laceration of scalp, initial encounter Intracranial hemorrhage (HCC) Disposition Transferred. The patient's condition at disposition was: stable. Comments ED Disposition Transferred Comment -- Carline Omalley ATTENDING ATTESTATION Procedure Supervision: I was readily available for the procedure performed on this patient, which can be found in the procedure section above. the procedure is actually in separate note by KEITH * Sarah Tinsley RN - 09/04/2023 9:38 PM EDT Fell between toilet and tub. Has lac on head. Family put duct tape on head to help control the bleeding. documented in this encounter Miscellaneous Notes * ED Binder Lockstitch Note - Sarah Tinsley RN - 09/04/2023 11:37 PM EDT Report called to [facility] ED * ED Binder Lockstitch Note - Sarah Tinsley RN - 09/04/2023 11:23 PM EDT 12 atif primo[lied to left side of head by Percy PALACIOS documented in this encounter Plan of Treatment Upcoming Encounters Date Type Department Care Team (Late st Contact Info) Description 09/10/2023 1:30 PM EDT Anticoagulation Pharmacy, [place] [address] [id number] Pharmacist1, [facility] [place] [address] [place] [address] 01/21/2024 2:00 PM EDT Office Visit Endocrinology, [place] [address] [place] [address] Sakina Jones MD [address] [place] [address] 01/25/2024 3:30 PM EDT Office Visit [facility] [address] [place] [address] Laney Hogue MD [address] [place] [address] 02/05/2024 2:30 PM EDT Office Visit Urology [facility] [address] [address] Bert Boogie Jr., MD [address] [place] [address] [place] [address] 02/25/2024 9:20 AM EDT Office Visit [facility], [place] [address] [phone] Kaiser Amanda MD [address] [address] Scheduled Orders Name Type Priority Associated Diagnoses Orde r Schedule TOXICOLOGY, URINESCREEN W/ CONFIRMATION Lab STAT Perform Now for 1 Occurrences starting 09/04/2023 until 09/04/2023 URINALYSIS, REFLEX TO MICROSCOPIC Lab STAT One Time for 1 Occurrences starting 09/04/2023 until 09/04/2023 PT INR Lab Routine One Time for 1 Occurrences starting 09/04/2023 until 09/04/2023 CBC Lab STAT One Time for 1 Occurrences starting 09/04/2023 until 09/04/2023 Scheduled Procedures Name Priority Associated Diagnoses Date/Ti [...] D LEVEL ONCE IN A LIFETIME-USE SMARTSET# [id number] Completed 07/26/2023, 02/26/2023, 01/23/2023, Additional history exists [...] this encounter Medical Devices Implanted Type Area Manager Validation Device Identifier Shelf Expiration Date Model / Serial / Lot Cement Bone Simplex Hv & G - [id number] Implanted:Qty: 2 on 09/02/2020 by Gianni Hubbard MD at OR [facility] Right: Hip [employer]UDY : [employer] 08/11/2021 [id number] / / [id number] Spacer Ring Aclde Distal Lg 14 - [id number] Implanted:Qty: 1 on 09/02/2020 by Gianni Hubbard MD at OR [facility] Right: Hip [employer] : [employer] 11/25/2024 [id number] / / Accolade C Cs 127 6 37/158 - [id number] Implanted:Qty: 1 on 09/02/2020 by Gianni Hubbard MD at OR [facility] Right: Hip [employer] : [employer] 05/29/2023 [id number] / / [id number] Hip Cocr Lfit Head V40 28/+4 - [id number] Implanted:Qty: 1 on 09/02/2020 by Gianni Hubbard MD at OR [facility] Right: Hip [employer] : [employer] 11/15/2024 [id number] / / [id number] Hip Head Bipol Uhr Uni 28x52 - [id number] Implanted:Qty: 1 on 09/02/2020 by Gianni Hubbard MD at OR [facility] Right: Hip [employer] : OR[employer] 11/25/2024 [id number] / / [id number] Lens Intraoc 17.5 - [id number] - [id number] Implanted:Qty: 1 on 03/23/2022 by Rad Morgan MD at OR [facility] Left: Eye [employer] 10/11/2026 [id number] / [id number] / [id number] Lens Intraoc 18.0 - [id number] - [id number] Implanted:Qty: 1 on 03/30/2022 by Rad Morgan MD at OR [facility] Right: Eye BAUSCH [employer] LOMB 01/11/2027 [id number] / [id number] / [id number] documented as of this encounter Procedures Procedure Name Priority Date/Time Associated Diagnosis Comments LACERATION REPAIR Routine 09/04/2023 11: 32 PM EDT RESPIRATORY PATHOGEN PANEL, PCR STAT 09/04/2023 10:19 PM EDT XR CHEST 1 VIEW STAT 09/04/2023 10:14 PM EDT XR PELVIS AP VIEW STAT 09/04/2023 10: [address] ABD/PELVIS W IV CONTRAST - WO ORAL CONTRAST STAT 09/04/2023 10:[address] C SPINE WO CONTRAST STAT 10:[address] CHEST W CONTRAST STAT 09/04/2023 1 0:[address] HEAD/BRAIN WO CONTRAST STAT 09/04/2023 10:11 PM EDT DIFFERENTIAL, AUTOMATED STAT 09/04/2023 9:57 PM EDT TROPONIN T, HIGH SENSITIVITY STAT 09/04/2023 9:57 PM EDT COMPREHENSIVE METABOLIC PANEL STAT 09/04/2023 9:57 PM EDT TYPE AND SCREEN STAT 09/04/2023 9:57 PM EDT CBC STAT 09/04/2023 9:57 PM EDT PT INR STAT 09/04/2023 9:57 PM EDT LACTATE,WHOLE BLOOD STAT 09/04/2023 9 :57 PM EDT ETHANOL, MEDICAL STAT 09/04/2023 9:57 PM EDT CBC STAT 09/04/2023 9:57 PM EDT documented in this encounter Results * Laceration Repair (09/04/2023 11:32 PM EDT) Narrative Carline Omalley DO - 09/04/2023 11:32 PM EDT Carline Omalley DO 09/04/2023 11:49 PM Laceration Repair Date/Time: 09/04/2023 11:32 PM Performed by: Roberto Farris CRNP Authorized by: Carline Omalley DO Consent: Consent obtained: Verbal Consent given by: Patient Risks, benefits, and alternatives were discussed: yes Risks discussed: Pain [place] protocol: Patient identity confirmed: Verbally with patient Laceration details: Location: Anogenital Length (cm): 4 Depth (mm): 5 Repair type: Repair type: Simple Treatment: Area cleansed with: Saline Skin repair: Repair method: Moh[place] Number of atif: 12 Approximation: Approximation: Close [place] border: well-aligned Post-procedure details: Dressing: Non-adherent dressing Patient tolerance of procedure: Tolerated well, no immediate complications Carline Omalley DO PROCEDURE REPO RT * RESPIRATORY PATHOGEN PANEL, PCR (09/04/2023 10:19 PM EDT) Pathologist [facility] Adenovirus by PCR Negative Negative 024 11:22 PM EDT LABORATORY [facility] Coronavirus 229E by PCR Negative Negative 09/04/2023 11:22 PM EDT LABORATORY [facility] Coronavirus HKU1 by PCR Negative Negative 09/04/2023 11:22 PM EDT LABORATORY [facility] Coronavirus NL63 by PCR Negative Negative 09/04/2023 11:22 PM EDT LABORATORY [facility] Coronavirus OC43 by PCR Negative Negative 09/04/2023 11:22 PM EDT LABORATORY [facility] Coronavirus SARS-CoV-2 by PCR Negative Negative 09/04/2023 11:22 PM EDT LABORATORY [facility] Human Metapneumovirus by PCR Negative Negative 09/04/2023 11:22 PM EDT LABORATORY [facility] Rhinovirus/Enterovi oliverio by PCR Negative Negative 09/04/2023 11:22 PM EDT LABORATORY [facility] Influenza A Virus by PCR Negative Negative 09/04/2023 11:22 PM EDT LABORATORY [facility] Influenza B Virus by PCR Negative Negative 09/04/2023 11:22 PM EDT LABORATORY [facility] Parainfluenza Virus 1 by PCR Negative Negative 09/04/2023 11:22 PM EDT LABORATORY [facility] Parainfluenza Virus 2 by PCR Negative Negative 09/04/2023 11:22 PM EDT LABORATORY [facility] Parainfluenza Virus 3 by PCR Negative Negative 09/04/2023 11:22 PM EDT LABORATORY [facility] Parainfluenza Virus 4 by PCR Negative Negative 09/04/2023 11:22 PM EDT LABORATORY [facility] Respiratory Syncytial Virus by PCR Negative Negative 09/04/2023 11:22 PM EDT LABORATORY [facility] Bordetella pertussis by PCR Negative Negative 09/04/2023 11:22 PM EDT LABORATORY [facility] Chlamydia pneumoniae by PCR Negative Negative 09/04/2023 11:22 PM EDT LABORATORY [facility] Mycoplasma pneumoniae by PCR Negative Negative 09/04/2023 11:22 PM EDT LABORATORY [facility] Bordetella parapertussis by PCR Negative Negative 09/04/2023 11:22 PM EDT LABORATORY [facility] Comment: The primers that detect Rhinovirus may cross react with some Enterorviruses. The validation of bronchial specimens, tracheal aspirates, and throats for this assay was developed and performance characteristics determined by [employer]. The validation of alternate specimen types has not been cleared or approved by the U.S. Food and Drug Administration (FDA). It has been determined that such clearance or approval is not necessary. Upper Respiratory Mid-turbinate nasal swab / Unknown Non-blood Collection / Unknown 09/04/2023 10:19 PM EDT 09/04/2023 10:23 PM EDT Carline Omalley DO LAB [facility] [address] [address] * XR PELVIS 1 VIEW (09/04/2023 10:14 PM EDT) Anatomical Region Laterality Modality Pelvis, Lower Extremity Digital Radiography 09/04/2023 10:0 9 PM EDT Impressions 09/04/2023 10:50 PM EDT IMPRESSION: No acute findings. Please see the pending CT scan for more details. THIS DOCUMENT HAS BEEN ELECTRONICALLY SIGNED BY HOMERO JUNIOR MD Narrative 09/04/2023 10:50 PM EDT PROCEDURE INFORMATION: Exam: XR Pelvis Exam date and time: 09/04/2023 10:09 PM Age: 72 years old Clinical indication: Other: S/P fall; Trauma TECHNIQUE: Imaging protocol: Radiologic exam of the pelvis. Views: 1 or 2 view. COMPARISON: CT ABD/PELVIS W IV CONTRAST - WO ORAL CONTRAST 09/04/2023 9:52 PM FINDINGS: Bones/joints: Patient has had a right total hip arthroplasty. No acute fracture. Soft tissues: Unremarkable. Procedure Note Homero Junior MD - 09/04/2023 PROCEDURE INFORMATION: Exam: XR Pelvis Exam date and time: 09/04/2023 10:09 PM Age: 72 years old Clinical indication: Other: S/P fall; Trauma TECHNIQUE: Imaging protocol: Radiologic exam of the pelvis. Views: 1 or 2 view. COMPARISON: CT ABD/PELVIS W IV CONTRAST - WO ORAL CONTRAST 09/04/2023 9:52 PM FINDINGS: Bones/joints: Patient has had a right total hip arthroplasty. No acute fracture. Soft tissues: Unremarkable. IMPRESSION IMPRESSION: No acute findings. Please see the pending CT scan for more details. THIS DOCUMENT HAS BEEN ELECTRONICALLY SIGNED BY HOMERO JUNIOR MD Carline Omalley DO RADIOLOGY ([facility]) * XR CHEST 1 VIEW (09/04/2023 10:14 PM EDT) Anatomical Region Laterality Modality Chest Digital Radiogra phy 09/04/2023 10:0 9 PM EDT Impressions 09/04/2023 10:52 PM EDT IMPRESSION: No evidence of an acute cardiopulmonary process. Please see the pending CT chest results. THIS DOCUMENT HAS BEEN ELECTRONICALLY SIGNED BY HOMERO JUNIOR MD Narrative 09/04/2023 10:52 PM EDT PROCEDURE INFORMATION: Exam: XR Chest Exam date and time: 09/04/2023 10:09 PM Age: 72 years old Clinical indication: Other: S/P fall; Trauma TECHNIQUE: Imaging protocol: Radiologic exam of the chest. Views: 1 view. COMPARISON: CT ABD/PELVIS W IV CONTRAST - WO ORAL CONTRAST 09/04/2023 9:52 PM FINDINGS: Lungs: No consolidation. Pleural spaces: No pleural effusion. No pneumothorax. Heart/Mediastinum: There is mild cardiomegaly. Vascularity is within normal limits. Bones/joints: Unremarkable. Procedure Note Homero Junior MD - 09/04/2023 PROCEDURE INFORMATION: Exam: XR Chest Exam date and time: 09/04/2023 10:09 PM Age: 72 years old Clinical indication: Other: S/P fall; Trauma TECHNIQUE: Imaging protocol: Radiologic exam of the chest. Views: 1 view. COMPARISON: CT ABD/PELVIS W IV CONTRAST - WO ORAL CONTRAST 09/04/2023 9:52 PM FINDINGS: Lungs: No consolidation. Pleural spaces: No pleural effusion. No pneumothorax. Heart/Mediastinum: There is mild cardiomegaly. Vascularity is withinnormal limits. Bones/joints: Unremarkable. IMPRESSION IMPRESSION: No evidence of an acute cardiopulmonary process. Please see the pendingCT chest results. THIS DOCUMENT HAS BEEN ELECTRONICALLY SIGNED BY HOMERO JUNIOR MD Carline Omalley DO RADIOLOGY ([facility]) * CT ABD/PELVIS W IV CONTRAST - WO ORAL CONTRAST (09/04/2023 10:11 PM EDT) Anatomical Region Laterality Modality Body, Abdomen, Pelvis Computed T omography 09/04/2023 9:52 PM EDT Impressions 09/04/2023 11:20 PM EDT IMPRESSION: 1. Possible subtle, nondisplaced, single site left anterolateral 5th and 6th rib fractures. Otherwise no definite acute traumatic injury is seen in the chest. 2. Other (less critical/noncritical/incidental) findings as above; please refer to the body of report for further details. PROCEDURE INFORMATION: Exam: CT Abdomen And Pelvis With Contrast Exam date and time: 09/04/2023 9:52 PM Age: 72 years old Clinical indication: Injury or trauma; Fall; Additional info: Significant trauma with possible severe intraabdominal injury or abdominal pain -- low back discomfort, fall on coumadin TECHNIQUE: Imaging protocol: Computed tomography of the [...] INTRAVENOUS (IV); COMPARISON: CT ABD/PELVIS W IV CON 04/15/2022 3:55 PM FINDINGS: Liver: Unremarkable. No mass. Gallbladder and bile ducts: There is a least 1 tiny gallstone layering in the gallbladder. There is no biliary duct dilatation. Pancreas: There is severe fatty atrophy of the pancreas. Spleen: Unremarkable. No splenomegaly. Adrenal glands: Normal. No mass. Kidneys and ureters: There is a hyperdense lesion arising from the right kidney in the midpole region measuring 12 mm. There is a left renal cyst measuring 14 Hounsfield units compatible with simple fluid. These were present on the prior study and are relatively stable. There is a nonobstructing calculus in the lower pole of the left kidney. The kidneys otherwise appear unremarkable. Stomach and bowel: Unremarkable. No obstruction. No mucosal thickening. Appendix: No evidence of appendicitis. Intraperitoneal space: Unremarkable. No free air. No significant fluid collection. Vasculature: There are atherosclerotic changes of the aorta and its branches which is otherwise of normal caliber. Lymph nodes: No new lymph nodes. Urinary bladder: There is a linear dense area projecting along the dependent portion of the urinary bladder. Reproductive: There is avyt-cz-opuaqhjl prostate enlargement. Bones/joints: Patient is status post right total hip arthroplasty. Bplx-so-immbwdcl degenerative changes are seen in the spine. No acute fractures are identified. This area is limited due to a large amount of beam hardening and streak artifact from a right total hip arthroplasty. Soft tissues: Unremarkable. IMPRESSION: 1. No evidence of acute traumatic injury in the abdomen or pelvis. 2. Incidental hyperdense exophytic lesion arising from the right kidney could represent a hemorrhagic cyst. This was present on the study of 2021 and is relatively stable. 3. Other (less critical/noncritical/incidental) findings as above; please refer to the body of report for further details. COMMENTS: Consistent with the [employer]'s Incidental Findings Committee white paper (J Am Micah Radiol 2018): Any incidental renal lesion less than 1 cm or classified as too small to characterize, or any incidental cystic renal lesion characterized as simple-appearing, is likely benign. No follow-up imaging is recommended for these lesions per consensus recommendations based on imaging criteria. THIS DOCUMENT HAS BEEN ELECTRONICALLY SIGNED BY HOMERO JUNIOR MD Narrative 09/04/2023 11:20 PM EDT PROCEDURE INFORMATION: Exam: CT Chest With Contrast; Diagnostic Exam date and time: 09/04/2023 9:52 PM Age: 72 years old Clinical indication: Injury or trauma; Fall; Additional info: Significant trauma with possible severe intraabdominal injury or abdominal pain -- low back discomfort, fall on coumadin TECHNIQUE: Imaging protocol: Diagnostic computed tomography of the chest with contrast. 3D rendering (Not supervised by [...] ml; Contrast route: INTRAVENOUS (IV); COMPARISON: CT chest from 04/15/2022 FINDINGS: Lungs: There is bibasilar dependent atelectasis. Pleural spaces: No pneumothorax. No pleural effusion. Heart: There is awjv-ys-xmdssurx cardiomegaly. Lymph nodes: No abnormal lymph nodes. Vasculature: There is borderline aneurysmal dilatation of the ascending aorta measuring 3.9 cm. Bones/joints: Postsurgical changes of posterior spinal fusion in the cervicothoracic region are noted. The imaged hardware appears intact. there appear to be chronic deformities on the right lateral 7th, 8th, and 9th ribs. There are potential acute deformities of the left anterolateral 5th and 6th ribs. These are single site and nondisplaced. Otherwise no definite fractures are seen. There are nssg-ks-ljnqexuf degenerative changes in the spine. Soft tissues: Unremarkable. Procedure Note Homero Junior MD - 09/04/2023 PROCEDURE INFORMATION: Exam: CT Chest With Contrast; Diagnostic Exam date and time: 09/04/2023 9:52 PM Age: 72 years old Clinical indication: Injury or trauma; Fall; Additional info: Significant trauma with possible severe intraabdominal injury or abdominal pain -- lowback discomfort, fall on coumadin TECHNIQUE: Imaging protocol: Diagnostic computed tomography of the chest withcontrast. 3D rendering (Not supervised by radiologist): [...] ml; Contrast route: INTRAVENOUS (IV); COMPARISON: CT chest from 04/15/2022 FINDINGS: Lungs: There is bibasilar dependent atelectasis. Pleural spaces: No pneumothorax. No pleural effusion. Heart: There is bkbe-cu-zxuiztxi cardiomegaly. Lymph nodes: No abnormal lymph nodes. Vasculature: There is borderline aneurysmal dilatation of the ascendingaorta measuring 3.9 cm. Bones/joints: Postsurgical changes of posterior spinal fusion in the cervicothoracic region are noted. The imaged hardware appears intact.there appear to be chronic deformities on the right lateral 7th, 8th, and 9thribs. There are potential acute deformities of the left anterolateral 5th and6th ribs. These are single site and nondisplaced. Otherwise no definitefractures are seen. There are cged-ms-jvjihfwq degenerative changes in the spine. Soft tissues: Unremarkable. IMPRESSION IMPRESSION: 1. Possible subtle, nondisplaced, single site left anterolateral 5th and6th rib fractures. Otherwise no definite acute traumatic injury is seen in the chest. 2. Other (less critical/noncritical/incidental) findings as above;please refer to the body of report for further details. PROCEDURE INFORMATION: Exam: CT Abdomen And Pelvis With Contrast Exam date and time: 09/04/2023 9:52 PM Age: 72 years old Clinical indication: Injury or trauma; Fall; Additional info: Significant trauma with possible severe intraabdominal injury or abdominal pain -- lowback discomfort, fall on coumadin TECHNIQUE: Imaging protocol: Computed tomography of the [...] INTRAVENOUS (IV); COMPARISON: CT ABD/PELVIS W IV CON 04/15/2022 3:55 PM FINDINGS: Liver: Unremarkable. No mass. Gallbladder and bile ducts: There is a least 1 tiny gallstone layering inthe gallbladder. There is no biliary duct dilatation. Pancreas: There is severe fatty atrophy of the pancreas. Spleen: Unremarkable. No splenomegaly. Adrenal glands: Normal. No mass. Kidneys and ureters: There is a hyperdense lesion arising from the rightkidney in the midpole region measuring 12 mm. There is a left renal cystmeasuring 14 Hounsfield units compatible with simple fluid. These were present on theprior study and are relatively stable. There is a nonobstructing calculus inthe lower pole of the left kidney. The kidneys otherwise appear unremarkable. Stomach and bowel: Unremarkable. No obstruction. No mucosal thickening. Appendix: No evidence of appendicitis. Intraperitoneal space: Unremarkable. No free air. No significant fluid collection. Vasculature: There are atherosclerotic changes of the aorta and itsbranches which is otherwise of normal caliber. Lymph nodes: No new lymph nodes. Urinary bladder: There is a linear dense area projecting along thedependent portion of the urinary bladder. Reproductive: There is wqlk-ow-jzrvbcve prostate enlargement. Bones/joints: Patient is status post right total hip arthroplasty. Urua-av-fwsualxk degenerative changes are seen in the spine. No acutefractures are identified. This area is limited due to a large amount of beamhardening and streak artifact from a right total hip arthroplasty. Soft tissues: Unremarkable. IMPRESSION: 1. No evidence of acute traumatic injury in the abdomen or pelvis. 2. Incidental hyperdense exophytic lesion arising from the right kidneycould represent a hemorrhagic cyst. This was present on the study of 2021 and is relatively stable. 3. Other (less critical/noncritical/incidental) findings as above;please refer to the body of report for further details. COMMENTS: Consistent with the [employer]'s Incidental Findings Committee white paper (J Am Micah Radiol 2018): Any incidental renal lesionless than 1 cm or classified as too small to characterize, or any incidentalcystic renal lesion characterized as simple-appearing, is likely benign. Nofollow-up imaging is recommended for these lesions per consensus recommendationsbased on imaging criteria. THIS DOCUMENT HAS BEEN ELECTRONICALLY SIGNED BY HOMERO JUNIOR MD Carline Omalley DO RAD CT * CT CHEST W CONTRAST (09/04/2023 10:11 PM EDT) Anatomical Region Laterality Modality Chest, Body, Cardio Computed Stuart ography 09/04/2023 9:52 PM EDT Impressions 09/04/2023 11:20 PM EDT IMPRESSION: 1. Possible subtle, nondisplaced, single site left anterolateral 5th and 6th rib fractures. Otherwise no definite acute traumatic injury is seen in the chest. 2. Other (less critical/noncritical/incidental) findings as above; please refer to the body of report for further details. PROCEDURE INFORMATION: Exam: CT Abdomen And Pelvis With Contrast Exam date and time: 09/04/2023 9:52 PM Age: 72 years old Clinical indication: Injury or trauma; Fall; Additional info: Significant trauma with possible severe intraabdominal injury or abdominal pain -- low back discomfort, fall on coumadin TECHNIQUE: Imaging protocol: Computed tomography of the [...] INTRAVENOUS (IV); COMPARISON: CT ABD/PELVIS W IV CON 04/15/2022 3:55 PM FINDINGS: Liver: Unremarkable. No mass. Gallbladder and bile ducts: There is a least 1 tiny gallstone layering in the gallbladder. There is no biliary duct dilatation. Pancreas: There is severe fatty atrophy of the pancreas. Spleen: Unremarkable. No splenomegaly. Adrenal glands: Normal. No mass. Kidneys and ureters: There is a hyperdense lesion arising from the right kidney in the midpole region measuring 12 mm. There is a left renal cyst measuring 14 Hounsfield units compatible with simple fluid. These were present on the prior study and are relatively stable. There is a nonobstructing calculus in the lower pole of the left kidney. The kidneys otherwise appear unremarkable. Stomach and bowel: Unremarkable. No obstruction. No mucosal thickening. Appendix: No evidence of appendicitis. Intraperitoneal space: Unremarkable. No free air. No significant fluid collection. Vasculature: There are atherosclerotic changes of the aorta and its branches which is otherwise of normal caliber. Lymph nodes: No new lymph nodes. Urinary bladder: There is a linear dense area projecting along the dependent portion of the urinary bladder. Reproductive: There is yxac-vu-hanwywrx prostate enlargement. Bones/joints: Patient is status post right total hip arthroplasty. Paxk-cs-zaysphcr degenerative changes are seen in the spine. No acute fractures are identified. This area is limited due to a large amount of beam hardening and streak artifact from a right total hip arthroplasty. Soft tissues: Unremarkable. IMPRESSION: 1. No evidence of acute traumatic injury in the abdomen or pelvis. 2. Incidental hyperdense exophytic lesion arising from the right kidney could represent a hemorrhagic cyst. This was present on the study of 2021 and is relatively stable. 3. Other (less critical/noncritical/incidental) findings as above; please refer to the body of report for further details. COMMENTS: Consistent with the [employer]'s Incidental Findings Committee white paper (J Am Micah Radiol 2018): Any incidental renal lesion less than 1 cm or classified as too small to characterize, or any incidental cystic renal lesion characterized as simple-appearing, is likely benign. No follow-up imaging is recommended for these lesions per consensus recommendations based on imaging criteria. THIS DOCUMENT HAS BEEN ELECTRONICALLY SIGNED BY HOMERO JUNIOR MD Narrative 09/04/2023 11:20 PM EDT PROCEDURE INFORMATION: Exam: CT Chest With Contrast; Diagnostic Exam date and time: 09/04/2023 9:52 PM Age: 72 years old Clinical indication: Injury or trauma; Fall; Additional info: Significant trauma with possible severe intraabdominal injury or abdominal pain -- low back discomfort, fall on coumadin TECHNIQUE: Imaging protocol: Diagnostic computed tomography of the chest with contrast. 3D rendering (Not supervised by [...] ml; Contrast route: INTRAVENOUS (IV); COMPARISON: CT chest from 04/15/2022 FINDINGS: Lungs: There is bibasilar dependent atelectasis. Pleural spaces: No pneumothorax. No pleural effusion. Heart: There is lwqe-ce-vqtgwymm cardiomegaly. Lymph nodes: No abnormal lymph nodes. Vasculature: There is borderline aneurysmal dilatation of the ascending aorta measuring 3.9 cm. Bones/joints: Postsurgical changes of posterior spinal fusion in the cervicothoracic region are noted. The imaged hardware appears intact. there appear to be chronic deformities on the right lateral 7th, 8th, and 9th ribs. There are potential acute deformities of the left anterolateral 5th and 6th ribs. These are single site and nondisplaced. Otherwise no definite fractures are seen. There are prck-mr-mocpiayt degenerative changes in the spine. Soft tissues: Unremarkable. Procedure Note Homero Junior MD - 09/04/2023 PROCEDURE INFORMATION: Exam: CT Chest With Contrast; Diagnostic Exam date and time: 09/04/2023 9:52 PM Age: 72 years old Clinical indication: Injury or trauma; Fall; Additional info: Significant trauma with possible severe intraabdominal injury or abdominal pain -- lowback discomfort, fall on coumadin TECHNIQUE: Imaging protocol: Diagnostic computed tomography of the chest withcontrast. 3D rendering (Not supervised by radiologist): [...] ml; Contrast route: INTRAVENOUS (IV); COMPARISON: CT chest from 04/15/2022 FINDINGS: Lungs: There is bibasilar dependent atelectasis. Pleural spaces: No pneumothorax. No pleural effusion. Heart: There is zbjd-cl-azybbztk cardiomegaly. Lymph nodes: No abnormal lymph nodes. Vasculature: There is borderline aneurysmal dilatation of the ascendingaorta measuring 3.9 cm. Bones/joints: Postsurgical changes of posterior spinal fusion in the cervicothoracic region are noted. The imaged hardware appears intact.there appear to be chronic deformities on the right lateral 7th, 8th, and 9thribs. There are potential acute deformities of the left anterolateral 5th and6th ribs. These are single site and nondisplaced. Otherwise no definitefractures are seen. There are bior-gd-zngqzdkz degenerative changes in the spine. Soft tissues: Unremarkable. IMPRESSION IMPRESSION: 1. Possible subtle, nondisplaced, single site left anterolateral 5th and6th rib fractures. Otherwise no definite acute traumatic injury is seen in the chest. 2. Other (less critical/noncritical/incidental) findings as above;please refer to the body of report for further details. PROCEDURE INFORMATION: Exam: CT Abdomen And Pelvis With Contrast Exam date and time: 09/04/2023 9:52 PM Age: 72 years old Clinical indication: Injury or trauma; Fall; Additional info: Significant trauma with possible severe intraabdominal injury or abdominal pain -- lowback discomfort, fall on coumadin TECHNIQUE: Imaging protocol: Computed tomography of the [...] INTRAVENOUS (IV); COMPARISON: CT ABD/PELVIS W IV CON 04/15/2022 3:55 PM FINDINGS: Liver: Unremarkable. No mass. Gallbladder and bile ducts: There is a least 1 tiny gallstone layering inthe gallbladder. There is no biliary duct dilatation. Pancreas: There is severe fatty atrophy of the pancreas. Spleen: Unremarkable. No splenomegaly. Adrenal glands: Normal. No mass. Kidneys and ureters: There is a hyperdense lesion arising from the rightkidney in the midpole region measuring 12 mm. There is a left renal cystmeasuring 14 Hounsfield units compatible with simple fluid. These were present on theprior study and are relatively stable. There is a nonobstructing calculus inthe lower pole of the left kidney. The kidneys otherwise appear unremarkable. Stomach and bowel: Unremarkable. No obstruction. No mucosal thickening. Appendix: No evidence of appendicitis. Intraperitoneal space: Unremarkable. No free air. No significant fluid collection. Vasculature: There are atherosclerotic changes of the aorta and itsbranches which is otherwise of normal caliber. Lymph nodes: No new lymph nodes. Urinary bladder: There is a linear dense area projecting along thedependent portion of the urinary bladder. Reproductive: There is wrpm-jv-rpbsztyd prostate enlargement. Bones/joints: Patient is status post right total hip arthroplasty. Gtmd-hs-trgfhwyx degenerative changes are seen in the spine. No acutefractures are identified. This area is limited due to a large amount of beamhardening and streak artifact from a right total hip arthroplasty. Soft tissues: Unremarkable. IMPRESSION: 1. No evidence of acute traumatic injury in the abdomen or pelvis. 2. Incidental hyperdense exophytic lesion arising from the right kidneycould represent a hemorrhagic cyst. This was present on the study of 2021 and is relatively stable. 3. Other (less critical/noncritical/incidental) findings as above;please refer to the body of report for further details. COMMENTS: Consistent with the [employer]'s Incidental Findings Committee white paper (J Am Micah Radiol 2018): Any incidental renal lesionless than 1 cm or classified as too small to characterize, or any incidentalcystic renal lesion characterized as simple-appearing, is likely benign. Nofollow-up imaging is recommended for these lesions per consensus recommendationsbased on imaging criteria. THIS DOCUMENT HAS BEEN ELECTRONICALLY SIGNED BY HOMERO JUNIOR MD Carline Shelton Karley DO RAD CT * CT C SPINE WO CONTRAST (09/04/2023 10:11 PM EDT) Anatomical Region Laterality Modality Cspine, Spine, Neck, Vertebra Co mputed Tomography 09/04/2023 9:52 PM EDT Impressions 09/04/2023 10:21 PM EDT IMPRESSION: No acute findings. THIS DOCUMENT HAS BEEN ELECTRONICALLY SIGNED BY AG SANCHEZ MD Narrative 09/04/2023 10:21 PM EDT PROCEDURE INFORMATION: Exam: CT Cervical Spine Without Contrast Exam date and time: 09/04/2023 9:52 PM Age: 72 years old Clinical indication: Injury or trauma; Fall; Additional info: Significant trauma with possible severe neurologic injury or neck pain -- evaluate spine fracture TECHNIQUE: Imaging protocol: Computed tomography of the cervical spine without contrast. Total images: 1423 Radiation optimization: All CT scans at this facility use at least one of these dose optimization techniques: automated exposure control; mA and/or kV adjustment per patient size (includes targeted exams where dose is matched to clinical indication); or iterative reconstruction. COMPARISON: CT C SPINE WO CONTRAST 04/15/2022 3:50 PM FINDINGS: Bones/joints: Vertebral body height and alignment are preserved. No acute fracture. Posterior spinal fusion from C2 through T2. Posterior decompression from C3 through C6. Lungs: Lung apices are unremarkable. Soft tissues: Unremarkable. Procedure Note Ag Sanchez Jr., MD - 09/04/2023 PROCEDURE INFORMATION: Exam: CT Cervical Spine Without Contrast Exam date and time: 09/04/2023 9:52 PM Age: 72 years old Clinical indication: Injury or trauma; Fall; Additional info: Significant trauma with possible severe neurologic injury or neck pain -- evaluatespine fracture TECHNIQUE: Imaging protocol: Computed tomography of the cervical spine withoutcontrast. Total images: 1423 Radiation optimization: All CT scans at this facility use at least one ofthese dose optimization techniques: automated exposure control; mA and/or kV adjustment per patient size (includes targeted exams where dose is matchedto clinical indication); or iterative reconstruction. COMPARISON: CT C SPINE WO CONTRAST 04/15/2022 3:50 PM FINDINGS: Bones/joints: Vertebral body height and alignment are preserved. No acute fracture. Posterior spinal fusion from C2 through T2. Posteriordecompression from C3 through C6. Lungs: Lung apices are unremarkable. Soft tissues: Unremarkable. IMPRESSION IMPRESSION: No acute findings. THIS DOCUMENT HAS BEEN ELECTRONICALLY SIGNED BY AG SANCHEZ MD Carline Omalley DO RAD CT * CT HEAD/BRAIN WO CONTRAST (09/04/2023 10:11 PM EDT) Anatomical Region Laterality Modality Head Computed Tomogra phy 09/04/2023 9:52 PM EDT Addenda Addendum by Ag Sanchez Jr., MD on 09/04/2023 10:29 PM EDT THIS REPORT CONTAINS FINDINGS THAT MAY BE CRITICAL TO PATIENT CARE. The findings were verbally communicated via telephone conference at 10:28 PM EDT on 09/04/2023 with CARLINE OMALLEY. The findings were acknowledged and understood. THIS DOCUMENT HAS BEEN ELECTRONICALLY SIGNED BY AG SANCHEZ MD Impressions 09/04/2023 10:17 PM EDT IMPRESSION: 1. Trace acute subdural hemorrhage over the lateral right cerebral convexity measuring up to 2 mm. 2. Small acute subarachnoid hemorrhage over the high right cerebral convexity. 3. Left posterolateral scalp laceration. THIS DOCUMENT HAS BEEN ELECTRONICALLY SIGNED BY AG SANCHEZ MD Narrative 09/04/2023 10:17 PM EDT PROCEDURE INFORMATION: Exam: CT Head Without Contrast Exam date and time: 09/04/2023 9:52 PM Age: 72 years old Clinical indication: Injury or trauma; Fall; Additional info: Significant trauma with possible severe neurologic injury or head pain -- fall on coumadin, left temporal to occipital laceration -- evaluate intracranial hemorrhage/skull fracture, also, to 1 cm lesions on the top of the head with purulence eval infx TECHNIQUE: Imaging protocol: Computed tomography of the head without contrast. Total images: 222 Radiation optimization: All CT scans at this facility use at least one of these dose optimization techniques: automated exposure control; mA and/or kV adjustment per patient size (includes targeted exams where dose is matched to clinical indication); or iterative reconstruction. COMPARISON: CT HEAD/BRAIN WO CONTRAST 04/15/2022 3:50 PM FINDINGS: Brain: Trace acute subdural hemorrhage over the lateral right cerebral convexity measuring up to 2 mm. Small acute subarachnoid hemorrhage over the high right cerebral convexity. Volume loss. Lucency in the cerebral white matter most commonly seen with chronic microvascular ischemia. No midline shift. Cerebral ventricles: No obstructive hydrocephalus. Paranasal sinuses: Visualized sinuses are unremarkable. No fluid levels. Mastoid air cells: Visualized mastoid air cells are well aerated. Orbital cavities: Bilateral cataract surgery. Bones/joints: Unremarkable. No acute fracture. Soft tissues: Left posterolateral scalp laceration. No drainable fluid collection identified in the scalp soft tissues. Procedure Note Ag Snachez Jr., MD - 09/04/2023 PROCEDURE INFORMATION: Exam: CT Head Without Contrast Exam date and time: 09/04/2023 9:52 PM Age: 72 years old Clinical indication: Injury or trauma; Fall; Additional info: Significant trauma with possible severe neurologic injury or head pain -- fall oncoumadin, left temporal to occipital laceration -- evaluate intracranialhemorrhage/skull fracture, also, to 1 cm lesions on the top of the head with purulence evalinfx TECHNIQUE: Imaging protocol: Computed tomography of the head without contrast. Total images: 222 Radiation optimization: All CT scans at this facility use at least one ofthese dose optimization techniques: automated exposure control; mA and/or kV adjustment per patient size (includes targeted exams where dose is matchedto clinical indication); or iterative reconstruction. COMPARISON: CT HEAD/BRAIN WO CONTRAST 04/15/2022 3:50 PM FINDINGS: Brain: Trace acute subdural hemorrhage over the lateral right cerebral convexity measuring up to 2 mm. Small acute subarachnoid hemorrhage overthe high right cerebral convexity. Volume loss. Lucency in the cerebral white matter most commonly seen with chronic microvascular ischemia. No midline shift. Cerebral ventricles: No obstructive hydrocephalus. Paranasal sinuses: Visualized sinuses are unremarkable. No fluid levels. Mastoid air cells: Visualized mastoid air cells are well aerated. Orbital cavities: Bilateral cataract surgery. Bones/joints: Unremarkable. No acute fracture. Soft tissues: Left posterolateral scalp laceration. No drainable fluid collection identified in the scalp soft tissues. IMPRESSION IMPRESSION: 1. Trace acute subdural hemorrhage over the lateral right cerebralconvexity measuring up to 2 mm. 2. Small acute subarachnoid hemorrhage over the high right cerebral convexity. 3. Left posterolateral scalp laceration. THIS DOCUMENT HAS BEEN ELECTRONICALLY SIGNED BY AG SANCHEZ MD Carline Omalley DO RAD CT * DIFFERENTIAL, AUTOMATED (09/04/2023 9:57 PM EDT) WBC 9.17 4.00 - 10.80 K/uL 09/04/2023 10:07 PM EDT [facility] Neutrophils % 48.3 40.0 - 75.0 % 09/04/2023 10:07 PM EDT [facility] Lymphocytes % 37.0 18.0 - 42.0 % 09/04/2023 10:07 PM EDT [facility] Monocytes % 7.7 1.0 - 11.0 % 09/04/2023 10:07 PM EDT [facility] Eosinophils % 5.5 0.0 - 6.0 % 09/04/2023 10:07 PM EDT [facility] Basophils % 0.7 0.0 - 2.0 % 09/04/2023 10:07 PM EDT [facility] Immature Granulocytes % 0.8 0.0 - 2.0 % 09/04/2023 10:07 PM EDT [facility] Absolute Neutrophils 4.44 1.80 - 7.70 K/uL 09/04/2023 10:07 PM EDT [facility] Lymphocytes 3.39 1.00 - 4.80 K/ul 09/04/2023 10:07 PM EDT [facility] Monocytes 0.71 0.00 - 1.10 K/uL 09/04/2023 10:07 PM EDT [facility] Eosinophils 0.50 0.00 - 0.70 K/uL 09/04/2023 10:07 PM EDT [facility] Basophils 0.06 0.00 - 0.20 K/uL 09/04/2023 10:07 PM EDT LABORATORY GL Absolute Immature Granulocytes 0.07 0.00 - 0.20 K/uL 09/04/2023 10:07 PM EDT LABORATORY GL Blood Venous blood specimen / Unknown Venipuncture / Unknown 09/04/2023 9:57 PM EDT 09/04/2023 10:04 PM EDT Carline Omalley DO LAB BLOOD TALIB SANTOS [facility] Organization Address City/State/[facility] Co de Phone Number LABORATORY [address] [address] * (ABNORMAL) CBC (09/04/2023 9:57 PM EDT) [facility] WBC 9.17 4.00 - 10.80 K/uL 09/04/2023 10:07 PM EDT LABORATORY GL RBC 4.12 4.50 - 5.25 M/uL 09/04/2023 10:07 PM EDT LABORATORY GL HGB 13.1(L) 14.0 - 16.8 g/dL 09/04/2023 10:07 PM EDT LABORATORY GL HCT 39.1(L) 40.0 - 48.4 % 09/04/2023 10:07 PM EDT LABORATORY [facility] MCV 94.9 82.0 - 99.5 fL 09/04/2023 10:07 PM EDT LABORATORY [facility] MCH 31.8 27.0 - 34.0 pg 09/04/2023 10:07 PM EDT LABORATORY [facility] MCHC 33.5 32.0 - 36.0 g/dL 09/04/2023 10:07 PM EDT LABORATORY [facility] RDW 14.2 11.5 - 15.5 % 09/04/2023 10:07 PM EDT LABORATORY [facility] PLT 215 140 - 400 K/uL 09/04/2023 10:07 PM EDT LABORATORY [facility] MPV 9.1 6.6 - 11.1 fL 09/04/2023 10:07 PM EDT LABORATORY [facility] nRBCs 0 <=0 /100 WBCs 09/04/2023 10:07 PM EDT LABORATORY [facility] Blood Venous blood specimen / Unknown Venipuncture / Unknown 09/04/2023 9:57 PM EDT 09/04/2023 10:04 PM EDT Carline Omalley [facility] BLOOD ORDBree TOM LABORATORY [address] [address] * TROPONIN T, HIGH SENSITIVITY (09/04/2023 9:57 PM EDT) Troponin T, High Sensitivity 18 <=22 ng/L 09/04/2023 10:24 PM EDT LABORATORY [facility] Blood Venous blood specimen / Unknown Venipuncture / Unknown 09/04/2023 9:57 PM EDT 09/04/2023 10:04 PM EDT Carline Omalley LAB BLOOD ORDE TOM LABORATORY [address] [id number] * TYPE AND SCREEN (09/04/2023 9:57 PM EDT) ABO O 09/04/2023 10:44 PM EDT LABORATORY [facility] BLOOD BANK Rh Positive 09/04/2023 10:44 PM EDT LABORATORY [facility] BLOOD BANK Red Blood Cell Antibody Screen Negative 09/04/2023 10:44 PM EDT LABORATORY [facility] BLOOD BANK Specimen Expiration Date 09/07/2023 23:59 09/04/2023 10:44 PM EDT LABORATORY [facility] BLOOD BANK Blood Venous blood specimen / Unknown Venipuncture / Unknown 09/04/2023 9:57 PM EDT 09/04/2023 10:04 PM EDT [facility] ORDERABLES Performing Organization Address [facility] Co de Phone Number LABORATORY [facility] BLOOD BANK [address] [place] [address] * (ABNORMAL) PT INR (09/04/2023 9:57 PM EDT) [facility] Prothrombin Time 18.7(H) 11.6 - 15.2 seconds 09/04/2023 10:17 PM EDT LABORATORY [facility] INR 1.6(H) 0.8 - 1.2 09/04/2023 10:17 PM EDT LABORATORY [facility] Blood Venous blood specimen / Unknown Venipuncture / Unknown 09/04/2023 9:57 PM EDT 09/04/2023 10:04 PM EDT Narrative LABORATORY [facility] - 09/04/2023 10:17 PM EDT Warfarin Therapy INR: 2.0-3.0 conventional anticoagulation INR: 2.5-3.5 high intensity anticoagulation Carline Peoples [facility] LAB BLOOD ORDE RABLES Performing Organization Address [facility]/ZIP Co de Phone Number LABORATORY [address] [address] * (ABNORMAL) LACTATE,WHOLE BLOOD (09/04/2023 9:57 PM EDT) Pathologist [facility] Lactate, Whole Blood 4.2(HH) 0.4 - 2.0 mmol/L 09/04/2023 10:24 PM EDT LABORATORY [facility] Blood Venous blood specimen / Unknown Venipuncture / Unknown 09/04/2023 9:57 PM EDT 09/04/2023 10:01 PM EDT Carline Omalley LAB BLOOD ORDBree SANTOS Performing Organization Address City/[facility]/ZIP Co de Phone Number LABORATORY [facility] [address] [place] [address] * ETHANOL, MEDICAL (09/04/2023 9:57 PM EDT) ETHANOL, MEDICAL Negative Negative 09/04/2023 10:37 PM EDT LABORATORY GL Blood Venous blood specimen / Unknown Venipuncture / Unknown 09/04/2023 9:57 PM EDT 09/04/2023 10:04 PM EDT Carline Omalley LAB BLOOD ORDBree SANTOS Performing Organization Address City/[facility]/ZIP Co de Phone Number LABORATORY [facility] [address] [place] [address] * (ABNORMAL) COMPREHENSIVE METABOLIC PANEL (09/04/2023 9:57 PM EDT) BUN 20 6 - 20 mg/dL 09/04/2023 10:37 PM EDT LABORATORY [facility] Creatinine 1.1 0.6 - 1.2 mg/dL 09/04/2023 10:37 PM EDT LABORATORY [facility] Estimated Glomerular Filtration Rate 74 >=60 mL/min 09/04/2023 10:37 PM EDT LABORATORY [facility] Comment:eGFR is calculated b ased on the CKD-EPI 2020 equation Sodium 139 135 - 146 mmol/L 09/04/2023 10:37 PM EDT LABORATORY [facility] Potassium 4.5 3.5 - 5.1 mmol/L 09/04/2023 10:37 PM EDT LABORATORY [facility] Chloride 103 98 - 107 mmol/L 09/04/2023 10:37 PM EDT LABORATORY [facility] CO2 22 22 - 32 mmol/L 09/04/2023 10:37 PM EDT LABORATORY [facility] Anion Gap 14 7 - 15 mmol/L 09/04/2023 10:37 PM EDT LABORATORY [facility] Glucose 161(H) 70 - 120 mg/dL 09/04/2023 10:37 PM EDT LABORATORY [facility] Albumin 4.0 3.8 - 5.0 g/dL 09/04/2023 10:37 PM EDT LABORATORY GL[facility] AST 23 10 - 50 U/L 09/04/2023 10:37 PM EDT LABORATORY GL[facility] Alkaline Phosphatase 61 35 - 130 U/L 09/04/2023 10:37 PM EDT LABORATORY [facility] Bilirubin, Total 0.4 <=1.2 mg/dL 09/04/2023 10:37 PM EDT LABORATORY [facility] Calcium 9.1 8.4 - 10.2 mg/dL 09/04/2023 10:37 PM EDT LABORATORY [facility] Protein 6.4 6.0 - 8.3 g/dL 09/04/2023 10:37 PM EDT LABORATORY [facility] ALT 19 10 - 50 U/L 09/04/2023 10:37 PM EDT LABORATORY [facility] Blood Venous blood specimen / Unknown Venipuncture / Unknown 09/04/2023 9:57 PM EDT 09/04/2023 10:04 PM EDT Carline Omalley DO LAB BLOOD TALIB SANTOS LABORATORY [facility] [address] [place] [address] documented in this encounter Visit Diagnoses Diagnosis Laceration of scalp, initial encounter- Primary Fall Unspecified fall Intracranial hemorrhage (HCC) Unspecified intracranial hemorrhage Elevated lactic acid level Acidosis documented in this encounter Administered Medications Inactive Administered Medications - up to 3 most recent administrations Medication Order MAR Action Action Date Dose Rate Site Iopamidol (Isovue 370) inj 100 mL 100 mL, Intravenous, ONCE, On Sun09/04/23 at 2245, For 1 dose, Radiology Medication Routing (Non-IR) Given 09/04/2023 10:45 PM EDT 100 mL NSS 0.9% 1,000 mL bolus infusion Intravenous, at 1,000 mL/hr Administer over 60 Minutes, Administer entire volume within 60 minutes or less., ONCE, 1 dose, On Sun09/04/23 at 2315 New Bag 09/04/2023 10:39 PM EDT 1,000 mL 1000 mL/hr oxygen GAS Inhalation, OXYGEN, First dose on Sun09/05/23 at 0000, Until Discontinued, Device/Managed by: Low Flow Device, [...] is greater than or equal to 93% phytonadione (Aqua-Mephyton) 10 mg in D5W 50 mL ivpb 10 mg, IV Piggyback, ONCE, 1 dose, On Sun09/04/23 at 2315 Rate Change 09/04/2023 11:11 PM EDT 28.42 mg/hr 159.2 mL/hr New Bag 09/04/2023 10:55 PM EDT 10 mg 112 mL/hr Prothrombin Complex Conc Human (Kcentra) 4 factor PCC inj 1,547 Units 1,547 Units, Intravenous, ONCE, On Sun09/04/23 at 2315, For 1 dose, Dose rounded to nearest full vial size. Flush with normal saline 10 mL after infusion. UNITS = mL Administer over 15 minutes. Given 09/04/2023 10:47 PM EDT 1,547 Units sodium chloride 0.9 % flush peripheral mohit 3 mL 3 mL, IV Push, QSHIFT, First dose on Sun09/05/23 at 0000, Until Discontinued, Do not flush if lock, PICC, or central line not in place; IV infusing or unable to flush. documented in this encounter Active and Recently Administered Medications Times are shown in EDT. Scheduled Medication Order 09/02/2023 09/03/2023 09/04/2023 Iopamidol (Isovue 370) inj 100 mL (COMPLETED) 100 mL, Intravenous, ONCE, On Sun09/04/23 at 2245, For 1 dose, Radiology Medication Routing (Non-IR) 5 (Given - Provid er: Orlando Souza, RT (R)) NSS 0.9% 1,000 mL bolus infusion (COMPLETED) Intravenous, at 1,000 mL/hr Administer over 60 Minutes, Administer entire volume within 60 minutes or less., ONCE, 1 dose, On Sun09/04/23 at 2315 2239 (New Bag - Prov ider: Sarah Tinsley RN)2332 (Stopped - Provider: Sarah Tinsley RN) oxygen GAS Inhalation, OXYGEN, First dose on Sun09/05/23 at 0000, Until Discontinued, Device/Managed by: Low Flow Device, [...] is greater than or equal to 93% phytonadione (Aqua-Mephyton) 10 mg in D5W 50 mL ivpb (COMPLETED) 10 mg, IV Piggyback, ONCE, 1 dose, On Sun09/04/23 at 2315 2255 (New Bag - Prov ider: Sarah Tinsley RN)2311 (Rate Change - Provider: Sarah Tinsley RN)2320 (Stopped - Provider: Sarah Tinsley RN) Prothrombin Complex Conc Human (Kcentra) 4 factor PCC inj 1,547 Units (COMPLETED) 1,547 Units, Intravenous, ONCE, On Sun09/04/23 at 2315, For 1 dose, Dose rounded to nearest full vial size. Flush with normal saline 10 mL after infusion. UNITS = mL Administer over 15 minutes. 2247 (Given - Provid er: Sarah Tinsley RN) sodium chloride 0.9 % flush peripheral mohit 3 mL 3 mL, IV Push, QSHIFT, First dose on Sun09/05/23 at 0000, Until Discontinued, Do not flush if lock, PICC, or central line not in place; IV infusing or unable to flush. documented in this encounter Additional Health Concerns Infection Onset Date Last Indicated Resolved Time Respiratory Rule-Out 09/04/2023 09/04/2023 024 11:22 PM EDT COVID-19 Rule-Out 09/04/2023 09/04/2023 09/04/2023 11:22 PM EDT documented as of this encounter [...] the patient have Health Care Power of Metal Annealer? No Code Status History Code Status Date Activated Date Inactivated Comments No Code 03/30/2022 6:32 AM 03/30/2022 12:51 PM Th is order reflects the patients wishes and were consensually agreed upon. Question Answer Comments Discussion of Advance Directives occurred with: Patient Does the patient have a Living Will? No Does the patient have Health Care Power of Metal Annealer? No No Code 03/23/2022 9:56 AM 03/23/2022 4:51 PM Thi s order reflects the patients wishes and were consensually agreed upon. Question Answer Comments Discussion of Advance Directives occurred with: Patient Does the patient have a Living Will? No Does the patient have Health Care Power of Metal Annealer? No Full Code 11/26/2021 11:29 PM 11/30/2021 5:09 PM This order reflects the patients wishes and were consensually agreed upon. Question Answer Comments Discussion of Advance Directives occurred with: Patient/Family Full Code 11/14/2021 6:23 PM 11/17/2021 5:13 PM This or michael reflects the patients wishes and were consensually agreed upon. Question Answer Comments Discussion of Advance Directives occurred with: Patient Care Teams Ultrasound Technologist Sonographer Relationship Specialty Start Date End Date Kaiser Amanda MD [address] [address] PCP - General Family Medicine 04/11/21 documented as of this encounter
--- OUTSIDE RECORDS SUMMARY | 2024-01-29 20:48 | External Medical Summary ---
Author Name Unknown Address Unknown Organization K1F:LABORATORY [facility] [address] [facility] [place] [address] Laboratory Report Ordering Provider Test Date Status LYSSA CROWLEY 09/04/2023 21:57:41 Final Observation Date Value Abnormality Reference (Units ) Status SYNC LEUKOCYTES IN BLOOD BY AUTOMATED COUNT 09/04/2023 21:57:41 9.17 4.00-10.80 (K/uL) Final Segs 09/04/2023 21:57:41 48.3 40.0-75.0 (%) Final Lymphs % 09/04/2023 21:57:41 37.0 18.0-42.0 (%) Final Monos 09/04/2023 21:57:41 7.7 1.0-11.0 (%) Final Eosinophils 09/04/2023 21:57:41 5.5 0.0-6.0 (%) Final Basos 09/04/2023 21:57:41 0.7 0.0-2.0 (%) Final Immature Granulocyte, Percent 09/04/2023 21:57:41 0.8 0.0-2.0 (%) Final Absolute Segs 09/04/2023 21:57:41 4.44 1.80-7.70 (K/uL) Final Lymphs, absolute 09/04/2023 21:57:41 3.39 1.00-4.80 (K/ul) Final Monos, Abs 09/04/2023 21:57:41 0.71 0.00-1.10 (K/uL) Final Eos, Abs 09/04/2023 21:57:41 0.50 0.00-0.70 (K/uL) Final Basos, Abs 09/04/2023 21:57:41 0.06 0.00-0.20 (K/uL) Final Immature Granulocytes, Number 09/04/2023 21:57:41 0.07 0.00-0.20 (K/uL) Final Performing Location LABORATORY [facility] - [address] [place] [address]
--- OUTSIDE RECORDS SUMMARY | 2024-01-29 20:48 | External Medical Summary ---
Author Name Unknown Address Unknown Organization K1F:LABORATORY GL - [address] [place] [address] Laboratory Report Ordering Provider Test Date Status LYSSA CROWLEY 09/04/2023 21:57:41 Final Observation Date Value Abnormality Reference (Units ) Status BUN 09/04/2023 21:57:41 20 6-20 (mg/dL) Final Creatinine 09/04/2023 21:57:41 1.1 0.6-1.2 (mg/dL) Final Glomerular filtration rate/1.73 sq M.predicted [Volume Rate/Area] in Serum, Plasma or Blood by Creatinine-based formula (CKD-EPI) 09/04/2023 21:57:41 74 >=60 (mL/min) Final eGFR is calculated based on the CKD-EPI 2020 equation Sodium 09/04/2023 21:57:41 139 135-146 (m mol/L) Final Potassium 09/04/2023 21:57:41 4.5 3.5-5.1 (m mol/L) Final Cl 09/04/2023 21:57:41 103 98-107 (mm ol/L) Final CO2 09/04/2023 21:57:41 22 22-32 (mmo l/L) Final Anion gap 09/04/2023 21:57:41 14 7-15 (mmol /L) Final Glucose 09/04/2023 21:57:41 161 Above high normal 70 -120 (mg/dL) Final Albumin 09/04/2023 21:57:41 4.0 3.8-5.0 (g /dL) Final AST (Aspartate aminotransferase) 09/04/2023 21:57:41 23 10-50 (U/L) Fin al Alk Phos 09/04/2023 21:57:41 61 35-130 (U/ L) Final Bilirubin, Total 09/04/2023 21:57:41 0.4 <=1 .2 (mg/dL) Final Calcium 09/04/2023 21:57:41 9.1 8.4-10.2 ( mg/dL) Final Protein 09/04/2023 21:57:41 6.4 6.0-8.3 (g /dL) Final ALT (Alanine aminotransferase) 09/04/2023 21:57:41 19 10-50 (U/L) Rafael mendez Performing Location LABORATORY [facility] - [facility] [place] [address]
--- OUTSIDE RECORDS SUMMARY | 2024-01-29 20:48 | External Medical Summary ---
Author Name Unknown Address Unknown Organization K1F:LABORATORY [facility] - [address] [place] [address] Laboratory Report Ordering Provider Test Date Status LYSSA CROWLEY 09/04/2023 21:57:41 Final Warfarin Therapy
INR: 2 .0-3.0 conventional anticoagulation
INR: 2.5- 3.5 high intensity anticoagulation Observation Date Value Abnormality Reference (Units ) Status PT 09/04/2023 21:57:41 18.7 Above high normal 11 .6-15.2 (seconds) Final INR 09/04/2023 21:57:41 1.6 Above high normal 0. 8-1.2 Final Performing Location LABORATORY [facility] - [address] [place] [address]
--- OUTSIDE RECORDS SUMMARY | 2024-01-29 20:48 | External Medical Summary ---
Author Name Unknown Address Unknown Organization K1F:LABORATORY [facility] LOOD BANK - [address] [place] [address] Laboratory Report Ordering Provider Test Date Status LYSSA CROWLEY 09/04/2023 21:57:41 Final Observation Date Value Abnormality Reference (Units ) Status ABO 09/04/2023 21:57:41 O Final RH 09/04/2023 21:57:41 Positive Final RED BLOOD CELL ANTIBODY SCREEN 09/04/2023 21:57:41 Negative Final SPECIMEN EXPIRATION DATE 09/04/2023 21:57:41 09/07/2023 23:59 Final Performing Location LABORATORY [facility] BLOOD BANK - [address] [place] [address]
--- OUTSIDE RECORDS SUMMARY | 2024-01-29 20:48 | External Medical Summary | Summary of Care ---
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[facility]) Take [...] THEN RINSE 120 mL 0 07/06/2023 Active 99 Fahrenheit VerAWAK In Vitro Strip (Glucose Blood)Indications:T ype 2 diabetes mellitus with polyneuropathy (HCC),Type 2 diabetes mellitus with hemoglobin A1c goal of less than 7.5% ([facility]) USE STRIP TO CHECK GLUCOSE ONCE DAILY 100 Strip 3 07/16/2023 Active metFORMIN HCl 1000 MG Oral Tablet (Glucophage) TAKE 1 TABLET BY MOUTH TWICE A DAY WITH BREAKFAST AND DINNER 180 Tablet 1 07/21/2023 Active Nitroglycerin 0.4 MG Sublingual Tablet Sublingual (Nitrostat)Indicati ons:Stable angina ([facility]) Place 1 Tablet under the [...] 09/07/2023 12:25 PM EDT Trauma PA from [facility] called the office regarding voiding trial with [...] PM EDT Pt is being discharge from [facility] and has a cathter place. He will need to be seen to hav it remove. Thank You Everett documented in this encounter Plan of Treatment Upcoming Encounters Date Type Department Care Team (Late st Contact Info) Description 09/10/2023 1:30 PM EDT Anticoagulation Pharmacy, [place] [address] [address] [address] Pharmacist1, [facility] [address] [address] 09/14/2023 11:00 AM EDT Office Visit [facility] [place] [address] [phone] Javier Torres PA-C 21 [facility] [place] [address] 01/21/2024 2:00 PM EDT Office Visit Endocrinology, [place] [address] [place] [address] Sakina Jones MD [address] [place] [address] 01/25/2024 3:30 PM EDT Office Visit [facility] [address] [place] [address] Laney Hogue MD [address] [place] [address] 02/05/2024 2:30 PM EDT Office Visit Urology [place] [address] [address] Bert Boogie Jr., MD [address] [place] [address] [place] [address] 02/25/2024 9:20 AM EDT Office Visit [facility] [place] [address] [phone] Kaiser Amanda MD [address] [address] Scheduled Procedures Name Priority Associated Diagnoses Date/Ti me COLONOSCOPY FLEXIBLE PROXIMA L DIAGNOSTIC Recall History of colonic polyps Health Maintenance Due Date Last Done Comments COVID-19 Vaccine (2022- season) 2023 05/19/2022, 04/23/2021, [...] 03/16/2022, 03/16/2022, 08/06/2009 Lipid Panel 02/27/2028 02/26/2023, 1208/2021, 05/26/2021, Additional history exists DTaP,Tdap,and Td Vaccines (3 - Td or Tdap) 12/10/2029 12/11/2019, 06/03/2014 Pneumococcal Vaccine: 65+ Years Completed 05/22/2017, 02/23/2016, 09/25/2011 Zoster Vaccines Completed 03/26/2019, 12/12, 09/27/2011 Colonoscopy Discontinued 03/16/2022, 1107/2021, 08/06/2009 Colorectal Cancer Screening Discontinued Influenza Vaccine (FLU shot) Completed 02/14/2023, 03/16/2022, 02/25/2021, Additional history exists VITAMIN D LEVEL ONCE IN A LIFETIME-USE SMARTSET# [id number] Completed 07/26/2023, 02/26/2023, 01/23/2023, Additional history exists [...] this encounter Medical Devices Implanted Type Area Criminal Records Technician Device Identifier Shelf Expiration Date Model / Serial / Lot Cement Bone Simplex Hv & G - [id number] Implanted:Qty: 2 on 09/02/2020 by Gianni Hubbard MD at OR [facility] Right: Hip LUDY : [employer] 08/11/2021 [id number] / / [id number] Spacer Ring Aclde Distal Lg 14 - [id number] Implanted:Qty: 1 on 09/02/2020 by Gianni Hubbard MD at OR [facility] Right: Hip [employer] : OR[employer] 11/25/2024 [id number] / / Accolade C Cs 127 6 37/158 - [id number] Implanted:Qty: 1 on 09/02/2020 by Gianni Hubbard MD at OR [facility] Right: Hip LUD[employer] : ORTHOPA[employer] 05/29/2023 [id number] / / [id number] Hip Cocr Lfit Head V40 28/+4 - [id number] Implanted:Qty: 1 on 09/02/2020 by Gianni Hubbard MD at OR [facility] Right: Hip [employer] : ORTH[employer] 11/15/2024 [id number] / / [id number] Hip Head Bipol r [facility] 28x52 - [id number] Implanted:Qty: 1 on 09/02/2020 by Gianni Hubbard MD at OR [facility] Right: Hip LUD[employer] : ORTHOPA[employer] 11/25/2024 [id number] / / [id number] Lens Intraoc 17.5 - [id number] - [id number] Implanted:Qty: 1 on 03/23/2022 by Rad Morgan MD at OR [facility] Left: Eye [employer] 10/11/2026 [id number] / [id number] / [id number] Lens Intraoc 18.0 - [id number] - [id number] Implanted:Qty: 1 on 03/30/2022 by Rad Morgan MD at OR [facility] Right: Eye [employer]OMB 01/11/2027 [id number] / [id number] / [id number] documented as of this encounter Advance Directives [...] the patient have Health Care Power of Marine Geologist? No Code Status History Code Status Date Activated Date Inactivated Comments No Code 03/30/2022 6:32 AM 03/30/2022 12:51 PM Th is order reflects the patients wishes and were consensually agreed upon. Question Answer Comments Discussion of Advance Directives occurred with: Patient Does the patient have a Living Will? No Does the patient have Health Care Power of Marine Geologist? No No Code 03/23/2022 9:56 AM 03/23/2022 4:51 PM Thi s order reflects the patients wishes and were consensually agreed upon. Question Answer Comments Discussion of Advance Directives occurred with: Patient Does the patient have a Living Will? No Does the patient have Health Care Power of Marine Geologist? No Full Code 11/26/2021 11:29 PM 11/30/2021 5:09 PM This order reflects the patients wishes and were consensually agreed upon. Question Answer Comments Discussion of Advance Directives occurred with: Patient/Family Full Code 11/14/2021 6:23 PM 11/17/2021 5:13 PM This or michael reflects the patients wishes and were consensually agreed upon. Question Answer Comments Discussion of Advance Directives occurred with: Patient Care Teams Collar Trimmer Relationship Specialty Start Date End Date Kaiser Amanda MD [address] [address] PCP - General Family Medicine 04/11/21 documented as of this encounter
--- OUTSIDE RECORDS SUMMARY | 2024-01-29 20:48 | External Medical Summary ---
Author Name Unknown Address Unknown Organization K1F:LABORATORY [facility] - [address] [place] [address] Laboratory Report Ordering Provider Test Date Status LYSSA CROWLEY 09/04/2023 21:57:41 Final Observation Date Value Abnormality Reference (Units ) Status Lactic Acid, Whole Blood 09/04/2023 21:57:41 4.2 Above upper panic limits 0.4-2.0 (mmol/L) Final Performing Location LABORATORY [facility] - [address] [place] [address]
--- OUTSIDE RECORDS SUMMARY | 2024-01-29 20:49 | External Medical Summary | Summary of Care ---
Author Name Unknown Organization [facility] Address [address] [place] [place] [address] Phone [phone] Care Team Providers Care Manager Research Name Role Phone Kaiser Amanda MD Primary Care Provider [phone] Reason for Visit * Reason Onset Date Comments Advice 08/17/2023 Encounter Details Date Type Department Care Team (Late st Contact Info) Description 08/17/2023 [facility]phone [facility] [address] [place] [phone] Kaiser Amanda MD [facility] [place] [address] Advice Allergies Active Allergy Reactions Criticality Noted Date Comments Cat Dander Itching 07/14/2016 documented as of this encounter (statuses as of 08/20/2023) Medications Medication Sig Dispensed Refills Start Date [...] 2 diabetes mellitus with polyneuropathy ([facility]) Take 1 Tablet by mouth in [...] THEN RINSE 120 mL 0 07/06/2023 Active Foresight BiotherapeuticsTouch Verio In Vitro Strip (Glucose Blood)Indications:T ype 2 diabetes mellitus with polyneuropathy ([facility]),Type 2 diabetes mellitus with hemoglobin A1c goal of less than 7.5% ([facility]) USE STRIP TO CHECK GLUCOSE ONCE DAILY 100 Strip 3 07/16/2023 Active metFORMIN HCl 1000 MG Oral Tablet (Glucophage) TAKE 1 TABLET BY MOUTH TWICE A DAY WITH BREAKFAST AND DINNER 180 Tablet 1 07/21/2023 Active Nitroglycerin 0.4 MG Sublingual Tablet Sublingual (Nitrostat)Indicati ons:Stable angina ([facility]) Place 1 Tablet under the tongue every 5 minutes as needed for Pain, Chest. 25 Tablet 0 07/26/2023 Active Additional Information Patient not taking.Reported on 08/10/2023 Omeprazole 20 MG Oral Capsule Delayed Release (PriLOSEC)Indicatio ns:Gastroesophageal reflux disease, unspecified whether esophagitis present Take 1 Capsule by mouth in the morning. 1 hour before the first meal of the day. 30 Capsule 5 07/26/2023 Active Additional Information Patient not taking.Reported on 08/10/2023 Atorvastatin Calcium 40 MG Oral Tablet (Lipitor)Indication s:Hyperlipidemia with target LDL less than 100 Take 1 Tablet by mouth in the morning. 90 Tablet 3 08/14/2023 Active documented as of this encounter (statuses as of 08/20/2023) Active Problems Problem Noted Date Diagnosed Date [...] as of this encounter (statuses as of 08/20/2023) Resolved Problems Problem Noted Date Diagnosed Date [...] as of this encounter (statuses as of 08/20/2023) Immunizations Name Administration Dates Next Due COVID-19 [...] Telephone Encounter - Mary Garnett LPN - 08/20/2023 9:36 AM EDT Pt informed, verbalizes understanding * Telephone Encounter - Kaiser Amanda MD - 08/20/2023 6:50 AM EDT Fine to stay off trulicity. Metamucil is fine too. Thanks! Kaiser Amanda MD, LUISA Family Physician Mario Jerez * Telephone Encounter - Gabriel Kraus OSA - 08/17/2023 11:55 AM EDT Calling with medication questions, check call details. documented in this encounter Plan of Treatment Upcoming Encounters Date Type Department Care Team (Late st Contact Info) Description 08/29/2023 3:00 PM EDT Anticoagulation Pharmacy, [address] [place] [address] Pharmacist1, [facility] [address] [place] [facility] [place] [address] 08/31/2023 8:00 AM EDT Office [facility] Surgery [address] [address] Laney Hogue MD [address] [place] [address] 09/11/2023 8:00 AM EDT Office [facility] [place] [address] [address] Laney Hogue MD [address] [place] [address] 01/21/2024 2:00 PM EDT Office Visit Endocrinology, [place] [address] [place] [address] Sakina Jones MD [address] [place] [address] 01/25/2024 3:30 PM EDT Office Visit [facility] [address] [place] [address] Laney Hogue MD [address] [place] [address] 02/05/2024 2:30 PM EDT Office Visit Urology [facility] [address] [place] [address] [place] [address] Bert Boogie Jr., MD [address] [place] [address] [place] [address] 02/25/2024 9:20 AM EDT [facility] [address] [phone] Kaiser Amanda MD [address] [address] Scheduled Procedures Name Priority Associated Diagnoses Date/Ti me COLONOSCOPY FLEXIBLE PROXIMA L DIAGNOSTIC Recall History of colonic polyps Health Maintenance Due Date Last Done Comments COVID-19 Vaccine ( season) 2023 05/19/2022, 04/23/2021, 08/09/2020, Additional history exists Depression Screening 09/28/2023 09/27/2022 Diabetic Eye Exam 12/22/2023 12/21/2022, , 12/21/2022, Additional history exists HOME BP CUFF VALIDATION YEARLY 12/27/2023 12/26/2022 Albumin/Creatinine Ratio 01/11/2024 023, 07/07/2021, 12/16/2018, Additional history exists HbA1c 01/26/2024 07/26/2023, 01/12, 04/16/2022, Additional history exists B-12 07/25/2024 07/26/2023, 02/13, 11/15/2021, Additional history exists Diabetic Foot Exam 07/25/2024 07/26/2023, 0 06/09/2022, 04/11/2021, Additional history exists GFR 07/25/2024 07/26/2023, 03/15, 02/26/2023, Additional history exists DXA Scan 01/25/2025 01/25/2023, [...] D LEVEL ONCE IN A LIFETIME-USE SMARTSET# 67742 Completed 07/26/2023, 02/26/2023, 01/23/2023, Additional history exists [...] encounter Medical Devices Implanted Type Area Director Of Annual Giving Device Identifier Shelf Expiration Date Model / Serial / Lot Cement Bone Simplex Hv & G - [id number] Implanted:Qty: 2 on 09/02/2020 by Gianni Hubbard MD at OR [facility] Right: Hip LUDY : ORTHOPAEDICS 08/11/2021 6195-1-010 / / [id number] Spacer Ring Aclde Distal Lg 14 - [id number] Implanted:Qty: 1 on 09/02/2020 by Gianni Hubbard MD at OR [facility] Right: Hip LUDY : ORTHOPAEDICS 11/25/2024 0835-2245 / / Accolade C Cs 127 6 37/158 - [id number] Implanted:Qty: 1 on 09/02/2020 by Gianni Hubbard MD at OR [facility] Right: Hip LUDY : ORTHOPAEDICS 05/29/2023 6057-0637D / / [id number] Hip Cocr Lfit Head V40 28/+4 - [id number] Implanted:Qty: 1 on 09/02/2020 by Gianni Hubbard MD at OR [facility] Right: Hip LUDY : ORTHOPAEDICS 11/15/2024 6260-9-228 / / [id number] Hip Head Bipol Uhr Uni 28x52 - [id number] Implanted:Qty: 1 on 09/02/2020 by Gianni Hubbard MD at OR [facility] Right: Hip LUDY : ORTHOPAEDICS 11/25/2024 UH1-52-28 / / [id number] Lens Intraoc 17.5 - [id number] - [id number] Implanted:Qty: 1 on 03/23/2022 by Rad Morgan MD at OR [facility] Left: Eye BAUSCH & LOMB 10/11/2026 [id number] / [id number] / [id number] Lens Intraoc 18.0 - [id number] - [id number] Implanted:Qty: 1 on 03/30/2022 by Rad Morgan MD at OR [facility] Right: Eye BAUSCH & LOMB 01/11/2027 [id number] / [id number] / [id number] documented as of this encounter Advance Directives [...] the patient have Health Care Power of Shingle Packer? No Code Status History Code Status Date Activated Date Inactivated Comments No Code 03/30/2022 6:32 AM 03/30/2022 12:51 PM Th is order reflects the patients wishes and were consensually agreed upon. Question Answer Comments Discussion of Advance Directives occurred with: Patient Does the patient have a Living Will? No Does the patient have Health Care Power of Shingle Packer? No No Code 03/23/2022 9:56 AM 03/23/2022 4:51 PM Thi s order reflects the patients wishes and were consensually agreed upon. Question Answer Comments Discussion of Advance Directives occurred with: Patient Does the patient have a Living Will? No Does the patient have Health Care Power of Shingle Packer? No Full Code 11/26/2021 11:29 PM 11/30/2021 5:09 PM This order reflects the patients wishes and were consensually agreed upon. Question Answer Comments Discussion of Advance Directives occurred with: Patient/Family Full Code 11/14/2021 6:23 PM 11/17/2021 5:13 PM This or michael reflects the patients wishes and were consensually agreed upon. Question Answer Comments Discussion of Advance Directives occurred with: Patient Care Teams Manager Research Relationship Specialty Start Date End Date Kaiser Amanda MD [address] [id number] PCP - General Family Medicine 04/11/21 documented as of this encounter
--- OUTSIDE RECORDS SUMMARY | 2024-01-29 20:49 | External Medical Summary | Summary of Care ---
Author Name Unknown Organization [facility] Address [address] [place] [facility] [place] [address] Phone [phone] Care Team Providers Care Hopper Feeder Name Role Phone Kaiser Amanda MD Primary Care Provider [phone] Reason for Visit * Reason Onset Date Comments Test Results Imaging Study 08/14/2023 Encounter Details Date Type Department Care Team (Late st Contact Info) Description 08/14/2023 Telephone [facility] General Surgery [address] [facility] [place] [address] Aydee Alaniz DO [address] [place] [address] [place] [id number] Test Results Imaging Study Allergies Active Allergy Reactions Criticality Noted Date Comments Cat Dander Itching 07/14/2016 documented as of this encounter (statuses as of 08/14/2023) Medications Medication Sig Dispensed Refills Start Date [...] anticoagulation clinic. 180 Tablet 3 04/18/2022 Active Atorvastatin Calcium 40 MG Oral Tablet (Lipitor)Indication s:Hyperlipidemia with target LDL less than 100 Take 1 Tablet by mouth in the morning. 90 Tablet 3 07/27/2022 Active Mupirocin 2 % External Ointment (Bactroban) [...] 7.5% ([facility]) TAKE 1 TABLET BY MOUTH DAILY. TAKE 30 MINUTES BEFORE A MEAL 90 Tablet 3 12/26/2022 Active DULoxetine HCl 60 MG Oral Capsule Delayed Release Particles (Cymbalta)Indicatio ns:Depression with anxiety Take 1 Capsule by mouth in the morning. 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) Take 1 Tablet by mouth [...] Blood)Indications:T ype 2 diabetes mellitus with polyneuropathy ([facility]),Type 2 diabetes mellitus with hemoglobin A1c goal of less than 7.5% ([facility]) USE STRIP TO CHECK GLUCOSE ONCE DAILY 100 Strip 3 07/16/2023 Active metFORMIN HCl 1000 MG Oral Tablet (Glucophage) TAKE 1 TABLET BY MOUTH TWICE A DAY WITH BREAKFAST AND DINNER 180 Tablet 1 07/21/2023 Active Nitroglycerin 0.4 MG Sublingual Tablet Sublingual (Nitrostat)Indicati ons:Stable angina ([facility]) Place 1 Tablet under the [...] Additional Information Patient not taking.Reported on 08/10/2023 documented as of this encounter (statuses as of 08/14/2023) Active Problems Problem Noted Date Diagnosed Date [...] as of this encounter (statuses as of 08/14/2023) Resolved Problems Problem Noted Date Diagnosed Date [...] as of this encounter (statuses as of 08/14/2023) Immunizations Name Administration Dates Next Due COVID-19 [...] Miscellaneous Notes * Telephone Encounter - Santa Collier CMA - 08/14/2023 11:31 AM EDT Called and spoke to patient. Patient aware of results. No further qestions/concerns. * Telephone Encounter - Aydee Alaniz DO - 08/14/2023 11:06 AM EDT Please inform pt his US does confirm that the lump he feels is scar tissue, without any concerning findings. No further intervention or workup is needed. documented in this encounter Plan of Treatment Upcoming Encounters Date Type Department Care Team (Late st Contact Info) Description 08/29/2023 3:00 PM EDT Anticoagulation Pharmacy, [place] [address] [place] [address] Pharmacist1, [facility] [place] [address] [place] [address] 08/31/2023 8:00 AM EDT Office Visit [facility] Surgery [facility] [address] [place] [address] Laney Hogue MD [address] [place] [address] 09/11/2023 8:00 AM EDT Office Visit [facility] Surgery [address] [address] Laney Hogue MD [address] [place] [address] 01/21/2024 2:00 PM EDT Office Visit Endocrinology, [place] [address] [place], [place] [id number] Sakina Jones MD [address] [place], [place] [phone] 01/25/2024 3:30 PM EDT Office Visit [facility] Surgery [facility] [address] [place] [address] Laney Hogue MD [address] [place] [address] 02/05/2024 2:30 PM EDT Office Visit Urology [facility] Rinaldi [place] [address] [place] [address] [place] [address] Bert Boogie Jr., MD [address] [place] [address] [place] [address] 02/25/2024 9:20 AM EDT [facility] [address] [place] [phone] Kaiser Amanda MD [address] [phone] Scheduled Procedures Name Priority Associated Diagnoses Date/Ti [...] D LEVEL ONCE IN A LIFETIME-USE SMARTSET# 62955 Completed 07/26/2023, 02/26/2023, 01/23/2023, Additional history exists [...] encounter Medical Devices Implanted Type Area Retail Client Solutions Analyst Device Identifier Shelf Expiration Date Model / Serial / Lot Cement Bone Simplex Hv & G - [id number] Implanted:Qty: 2 on 09/02/2020 by Gianni Hubbard MD at OR [facility] Right: Hip LUDY : ORTHOPAEDICS 08/11/2021 6195-1-010 / / [id number] Spacer Ring Aclde Distal Lg 14 - [id number] Implanted:Qty: 1 on 09/02/2020 by Gianni Hubbard MD at OR [facility] Right: Hip LUDY : ORTHOPAEDICS 11/25/2024 6831-4229 / / Accolade C Cs 127 6 37/158 - [id number] Implanted:Qty: 1 on 09/02/2020 by Gianni Hubbard MD at OR [facility] Right: Hip LUDY : ORTHOPAEDICS 05/29/2023 6057-0637D / / [id number] Hip Cocr Lfit Head V40 28/+4 - [id number] Implanted:Qty: 1 on 09/02/2020 by Gianni Hubbard MD at OR [facility] Right: Hip LUDY : ORTHOPAEDICS 11/15/2024 6260-9-228 / / [id number] Hip Head Bipol Uhr [facility] 28x52 - [id number] Implanted:Qty: 1 on 09/02/2020 by Gianni Hubbard MD at OR [facility] Right: Hip LUDY : ORTHOPAEDICS 11/25/2024 UH1-52-28 / / [id number] Lens Intraoc 17.5 - [id number] - [id number] Implanted:Qty: 1 on 03/23/2022 by Rad Morgan MD at OR [facility] Left: Eye BAUSCH & LOMB 10/11/2026 [id number] / [id number] / [id number] Lens Intraoc 18.0 - [id number] - [id number] Implanted:Qty: 1 on 03/30/2022 by Rad Morgan MD at OR [facility] Right: Eye BAUSCH & LOMB 01/11/2027 [id number] / [id number] / [id number] documented as of this encounter Advance Directives [...] the patient have Health Care Power of Dot Compliance Coordinator? No Code Status History Code Status Date Activated Date Inactivated Comments No Code 03/30/2022 6:32 AM 03/30/2022 12:51 PM Th is order reflects the patients wishes and were consensually agreed upon. Question Answer Comments Discussion of Advance Directives occurred with: Patient Does the patient have a Living Will? No Does the patient have Health Care Power of Dot Compliance Coordinator? No No Code 03/23/2022 9:56 AM 03/23/2022 4:51 PM Thi s order reflects the patients wishes and were consensually agreed upon. Question Answer Comments Discussion of Advance Directives occurred with: Patient Does the patient have a Living Will? No Does the patient have Health Care Power of Dot Compliance Coordinator? No Full Code 11/26/2021 11:29 PM 11/30/2021 5:09 PM This order reflects the patients wishes and were consensually agreed upon. Question Answer Comments Discussion of Advance Directives occurred with: Patient/Family Full Code 11/14/2021 6:23 PM 11/17/2021 5:13 PM This or michael reflects the patients wishes and were consensually agreed upon. Question Answer Comments Discussion of Advance Directives occurred with: Patient Care Teams Hopper Feeder Relationship Specialty Start Date End Date Kaiser Amanda MD [address] [address] PCP - General Family Medicine 04/11/21 documented as of this encounter
--- OUTSIDE RECORDS SUMMARY | 2024-01-29 20:49 | External Medical Summary | Summary of Care ---
Author Name Unknown Organization [facility] Address [address] [place] [facility] [place] [address] Phone [phone] Care Team Providers Care Strand Forming Machine Operator Name Role Phone Kaiser Amanda MD Primary Care Provider [phone] Reason for Visit * Reason Onset Date Comments Test Results Imaging Study 08/14/2023 Encounter Details Date Type Department Care Team (Late st Contact Info) Description 08/14/2023 Telephone [facility] General Surgery [address] [facility] [place] [address] Aydee Alaniz DO [address] [place] [address] [place] [phone] Test Results Imaging Study Allergies Active Allergy [...] mellitus with polyneuropathy ([facility]) Take 1 Tablet by mouth in [...] ype 2 diabetes mellitus with polyneuropathy ([facility]),Type 2 diabetes mellitus with hemoglobin A1c goal of less than 7.5% ([facility]) USE STRIP TO CHECK GLUCOSE ONCE DAILY 100 Strip 3 07/16/2023 Active metFORMIN HCl 1000 MG Oral Tablet (Glucophage) TAKE 1 TABLET BY MOUTH TWICE A DAY WITH BREAKFAST AND DINNER 180 Tablet 1 07/21/2023 Active Nitroglycerin 0.4 MG Sublingual Tablet Sublingual (Nitrostat)Indicati ons:Stable angina ([facility]) Place 1 [...] encounter Miscellaneous Notes * Telephone Encounter - Aydee Alaniz DO - 08/14/2023 11:06 AM EDT Please inform pt his US does confirm that the lump he feels is scar tissue, without any concerning findings. No further intervention or workup is needed. documented in this encounter Plan of Treatment Upcoming Encounters Date Type Department Care Team (Late st Contact Info) Description 08/29/2023 3:00 PM EDT Anticoagulation Pharmacy, [place] [address] Pharmacist1, [facility] [address] [place] [address] 08/31/2023 8:00 AM EDT Office Visit [facility] Surgery [facility] [address] [place] [address] Laney Hogue MD [address] [place] [address] 09/11/2023 8:00 AM EDT Office Visit [facility] Surgery [facility] [address] [place] [address] Laney Hogue MD [address] [place] [address] 01/21/2024 2:00 PM EDT Office Visit [facility] [place] [address] [place] [address] Sakina Jones MD [address] [place] [address] 01/25/2024 3:30 PM EDT Office Visit [facility] Surgery [facility] [address] [place] [address] Laney Hogue MD [address] [place] [address] 02/05/2024 2:30 PM EDT Office Visit Urology [place] [address] [place] [address] [place] [address] Bert Boogie Jr., MD [address] [place] [address] [place] [address] 02/25/2024 9:20 AM EDT Office Visit [facility] [place] [address] [phone] Kaiser Amanda MD [address] [place] [address] Scheduled Procedures Name Priority Associated Diagnoses Date/Ti [...] D LEVEL ONCE IN A LIFETIME-USE SMARTSET# [id number] Completed 07/26/2023, 02/26/2023, 01/23/2023, Additional history exists [...] this encounter Medical Devices Implanted Type Area Central Supply Assistant Device Identifier Shelf Expiration Date Model / Serial / Lot Cement Bone Simplex Hv & G - [id number] Implanted:Qty: 2 on 09/02/2020 by Gianni Hubbard MD at OR [facility] Right: Hip LUDY : ORTHOPAEDICS 08/11/2021 6195-1-010 / / [id number] Spacer Ring Aclde Distal Lg 14 - [id number] Implanted:Qty: 1 on 09/02/2020 by Gianni Hubbard MD at OR [facility] Right: Hip LUDY : ORTHOPAEDICS 11/25/2024 2013-5611 / / Accolade C Cs 127 6 37/158 - [id number] Implanted:Qty: 1 on 09/02/2020 by Gianni Hubbard MD at OR [facility] Right: Hip LUDY : ORTHOPAEDICS 05/29/2023 6057-0637D / / [id number] Hip Cocr Lfit Head V40 28/+4 - [id number] Implanted:Qty: 1 on 09/02/2020 by Gianni Hubbard MD at OR [facility] Right: Hip LUDY : ORTHOPAEDICS 11/15/2024 6260-9-228 / / [id number] Hip Head Bipol Uhr Uni 28x52 - [id number] Implanted:Qty: 1 on 09/02/2020 by Gianni Hubbard MD at OR [facility] Right: Hip LUDY : ORTHOPAEDICS 11/25/2024 UH1-52-28 / / [id number] Lens Intraoc 17.5 - [id number] - [id number] Implanted:Qty: 1 on 03/23/2022 by Rad Morgan MD at OR [facility] Left: Eye BAUSCH & LOMB 10/11/2026 [id number] / [id number] / [id number] Lens Intraoc 18.0 - [id number] - [id number] Implanted:Qty: 1 on 03/30/2022 by Rad Morgan MD at OR [facility] Right: Eye BAUSCH & LOMB 01/11/2027 [id number] / [id number] / [id number] documented as of this encounter Advance Directives [...] the patient have Health Care Power of Milk Of Lime Slaker? No Code Status History Code Status Date Activated Date Inactivated Comments No Code 03/30/2022 6:32 AM 03/30/2022 12:51 PM Th is order reflects the patients wishes and were consensually agreed upon. Question Answer Comments Discussion of Advance Directives occurred with: Patient Does the patient have a Living Will? No Does the patient have Health Care Power of Milk Of Lime Slaker? No No Code 03/23/2022 9:56 AM 03/23/2022 4:51 PM Thi s order reflects the patients wishes and were consensually agreed upon. Question Answer Comments Discussion of Advance Directives occurred with: Patient Does the patient have a Living Will? No Does the patient have Health Care Power of Milk Of Lime Slaker? No Full Code 11/26/2021 11:29 PM 11/30/2021 5:09 PM This order reflects the patients wishes and were consensually agreed upon. Question Answer Comments Discussion of Advance Directives occurred with: Patient/Family Full Code 11/14/2021 6:23 PM 11/17/2021 5:13 PM This or michael reflects the patients wishes and were consensually agreed upon. Question Answer Comments Discussion of Advance Directives occurred with: Patient Care Teams Strand Forming Machine Operator Relationship Specialty Start Date End Date Kaiser Amanda MD [address] [phone] PCP - General Family Medicine 04/11/21 documented as of this encounter
--- OUTSIDE RECORDS SUMMARY | 2024-01-29 20:49 | External Medical Summary | Summary of Care ---
Author Name Unknown Organization [facility] Address [address] [facility] [place] [address] Phone [phone] Care Team Providers Care Overhead Irrigator Name Role Phone Kaiser Amanda MD Primary Care Provider [phone] Reason for Visit * Reason Onset Date Comments Med Request 08/14/2023 Encounter Details Date Type Department Care Team (Late st Contact Info) Description 08/14/2023 [facility] [place] [address] Kaiser Amanda MD 21 [facility] [place] [address] Med Request Allergies Active Allergy Reactions Criticality Noted Date Comments Cat Dander Itching 07/14/2016 documented as of this encounter (statuses as of 08/14/2023) Medications Medication Sig Dispensed Refills Start Date End Date Status OneTouch Ultra 2 w/Device KitIndications:Type 2 diabetes mellitus with hemoglobin A1c goal of less than 7.5% ([facility]) Testing blood sugars twice daily [...] goal of less than 7.5% ([facility]) TAKE 1 TABLET BY MOUTH DAILY. TAKE 30 MINUTES BEFORE A MEAL 90 Tablet 3 12/26/2022 Active DULoxetine HCl 60 MG Oral Capsule Delayed Release Particles (Cymbalta)Indicatio ns:Depression with anxiety Take 1 Capsule by mouth in the morning. 90 Capsule 3 12/26/2022 Active Amitriptyline HCl 25 MG Oral Tablet (Elavil)Indications :Depression with anxiety,Type 2 diabetes mellitus with polyneuropathy ([facility]) Take 1 Tablet by mouth [...] Blood)Indications:T ype 2 diabetes mellitus with polyneuropathy ([facility]),Type 2 diabetes mellitus with hemoglobin A1c goal of less than 7.5% ([facility]) USE STRIP TO CHECK GLUCOSE ONCE DAILY 100 Strip 3 07/16/2023 Active metFORMIN HCl 1000 MG Oral Tablet (Glucophage) TAKE 1 TABLET BY MOUTH TWICE A DAY WITH BREAKFAST AND DINNER 180 Tablet 1 07/21/2023 Active Nitroglycerin 0.4 MG Sublingual Tablet Sublingual (Nitrostat)Indicati ons:Stable angina ([facility]) Place 1 Tablet under the [...] as of this encounter Miscellaneous Notes * Addendum Note - Mary Garnett LPN - 08/14/2023 10:24 AM EDTAddended by: MARY GARNETT on: 08/14/2023 10:24 AM Modules accepted: Orders * Telephone Encounter - Mary Garnett LPN - 08/14/2023 10:23 AM EDT Did you pend patient's preferred pharmacy and medication before forwarding?yes Pharmacy: [facility] [address] [place] [id number] [facility] [address] [place] [address] Pending Prescriptions: Disp Refills Atorvastatin Calcium 40 MG Oral Tablet (L*90 Tab*3 Sig: Take 1 Tablet by mouth in the morning. Last Visit: 07/26/2023 (in office), 11/19/2019 (telemedicine) Next Visit: 02/25/2024 If no future appointments scheduled, and last appointment is greater than a year ago, please schedule patient for a follow-up appointment Last date the medication was ordered: 07/27/22 Is this request for a controlled substance?No Urine Drug Screen: Results for orders placed or performed during the hospital encounter of 04/15/22 TOXICOLOGY, URINE SCREEN W/ CONFIRMATION Result Value Amphetamines Screen, U Negative Benzodiazepines Screen, U Negative Cannabinoids Screen, U Negative Cocaine Metabolite Screen, U Negative Fentanyl Screen, U Negative Hydrocodone Screen, U Negative Methadone Metabolite Screen, U Negative Morphine/Codeine Screen, U Negative Oxycodone Screen, U Negative Narrative Cutoff Concentrations: Drug Level Amphetamines 500 ng/mL Benzodiazepines 100 ng/mL Cannabinoids 50 ng/mL Cocaine Metabolite 150 ng/mL Fentanyl 1 ng/mL Hydrocodone / Hydromorphone 300 ng/mL Methadone Metabolite 100 ng/mL Morphine / Codeine 300 ng/mL Oxycodone / Oxymorphone 100 ng/mL Screening results are presumptive and can only be used for medical purposes. Positive screening results are reflexed to confirmatory testing. Patient Phone Numbers Labs: Lab Results Component Value Date/Time CREAT 1.2 07/26/2023 11:04 AM CREAT 1.0 03/30/2020 10:15 AM POTASSIUM 4.2 07/26/2023 11:04 AM POTASSIUM 4.7 03/30/2020 10:15 AM TSH 1.76 07/26/2023 11:04 AM TSH 0.88 11/30/2018 11:30 AM LDLCALC 51 02/26/2023 12:02 PM LDLCALC 40 03/30/2020 10:15 AM LDLDIRECT 30 05/26/2021 04:06 AM LDLDIRECT NOT APPLICABLE 03/30/2020 10:15 AM ALT 19 07/26/2023 11:04 AM ALT 24 03/30/2020 10:15 AM HGBA1C 6.8 (H) 07/26/2023 11:04 AM HGBA1C 7.4 (H) 03/30/2020 10:15 AM * Telephone Encounter - Ena German PHARM Tech - 08/14/2023 10:09 AM EDT Patient calling requesting refills for Atorvastatin Calcium 40 MG Oral Tablet (Lipitor) . Upon chart review, medication was last prescribed by hospital. Pt did schedule a hospital follow up visit. Please advise if you wish to continue this therapy for the patient. Pt will be out of medication on Sunday/[facility] [address] [place] [address] Thank you, Ena German, Acid Correction Hand Centralized Clinical Pharmacy Services (CCPS) (Formerly Telepharmacy) 08/14/2023,10:10 AM documented in this encounter Plan of Treatment Upcoming Encounters Date Type Department Care Team (Late st Contact Info) Description 08/29/2023 3:00 PM EDT Anticoagulation Pharmacy, [address] [place] [address] Pharmacist1, [address] [place] [address] 08/31/2023 8:00 AM EDT Office Visit [facility] Surgery [address] [place] [address] Laney Hogue MD [address] [place] [address] [place] [address] 09/11/2023 8:00 AM EDT Office Visit [facility] Surgery [address], [place] [address] Laney Hogue MD [address] [place] [address] [place] [address] 01/21/2024 2:00 PM EDT Office Visit Endocrinology, [place] [address] [place] [address] Sakina Jones MD [address] [place] [address] 01/25/2024 3:30 PM EDT Office Visit [facility] Surgery [facility] [address] [place] [address] Laney Hogue MD [address] [place] [address] 02/05/2024 2:30 PM EDT Office Visit Urology [place] [address] [place], [place] [id number] Bert Boogie Jr., MD [address] [place] [address] 02/25/2024 9:20 AM EDT Office Visit [facility] 21 [facility] [place] [phone] Kaiser Amanda MD 21 [facility] [place] [id number] Scheduled Procedures Name Priority Associated Diagnoses Date/Ti [...] D LEVEL ONCE IN A LIFETIME-USE SMARTSET# [id number] Completed 07/26/2023, 02/26/2023, 01/23/2023, Additional history exists [...] this encounter Medical Devices Implanted Type Area Telephone Lineman Device Identifier Shelf Expiration Date Model / Serial / Lot Cement Bone Simplex Hv & G - [id number] Implanted:Qty: 2 on 09/02/2020 by Gianni Hubbard MD at OR [facility] Right: Hip LUDY : ORTHOPAEDICS 08/11/2021 6195-1-010 / / [id number] Spacer Ring Aclde Distal Lg 14 - [id number] Implanted:Qty: 1 on 09/02/2020 by Gianni Hubbard MD at OR [facility] Right: Hip LUDY : ORTHOPAEDICS 11/25/2024 4129-5821 / / Accolade C Cs 127 6 37/158 - [id number] Implanted:Qty: 1 on 09/02/2020 by Gianni Hubbard MD at OR [facility] Right: Hip LUDY : ORTHOPAEDICS 05/29/2023 6057-0637D / / [id number] Hip Cocr Lfit Head V40 28/+4 - [id number] Implanted:Qty: 1 on 09/02/2020 by Gianni Hubbard MD at OR [facility] Right: Hip LUDY : ORTHOPAEDICS 11/15/2024 6260-9-228 / / [id number] Hip Head Bipol Uhr Uni 28x52 - [id number] Implanted:Qty: 1 on 09/02/2020 by Gianni Hbubard MD at OR [facility] Right: Hip LUDY : ORTHOPAEDICS 11/25/2024 UH1-52-28 / / [id number] Lens Intraoc 17.5 - [id number] - [id number] Implanted:Qty: 1 on 03/23/2022 by Rad Morgan MD at OR [facility] Left: Eye BAUSCH & LOMB 10/11/2026 [id number] / [id number] / [id number] Lens Intraoc 18.0 - [id number] - [id number] Implanted:Qty: 1 on 03/30/2022 by Rad Morgan MD at OR [facility] Right: Eye BAUSCH & LOMB 01/11/2027 [id number] / [id number] / [id number] documented as of this encounter Visit Diagnoses Diagnosis Hyperlipidemia with target LDL less than 100 Other and unspecified hyperlipidemia documented in this encounter Advance Directives Latest Code Status on File Code Status Date Activated Date Inactivated Comments Full Code 04/15/2022 10:45 PM 04/18/2022 3:06 PM This order reflects the patients wishes and were consensually agreed upon. Question Answer Comments Discussion of Advance Directives occurred with: Patient Does the patient have a Living Will? No Does the patient have Health Care Power of Still Pump Operator? No Code Status History Code Status Date Activated Date Inactivated Comments No Code 03/30/2022 6:32 AM 03/30/2022 12:51 PM Th is order reflects the patients wishes and were consensually agreed upon. Question Answer Comments Discussion of Advance Directives occurred with: Patient Does the patient have a Living Will? No Does the patient have Health Care Power of Still Pump Operator? No No Code 03/23/2022 9:56 AM 03/23/2022 4:51 PM Thi s order reflects the patients wishes and were consensually agreed upon. Question Answer Comments Discussion of Advance Directives occurred with: Patient Does the patient have a Living Will? No Does the patient have Health Care Power of Still Pump Operator? No Full Code 11/26/2021 11:29 PM 11/30/2021 5:09 PM This order reflects the patients wishes and were consensually agreed upon. Question Answer Comments Discussion of Advance Directives occurred with: Patient/Family Full Code 11/14/2021 6:23 PM 11/17/2021 5:13 PM This or michael reflects the patients wishes and were consensually agreed upon. Question Answer Comments Discussion of Advance Directives occurred with: Patient Care Teams Overhead Irrigator Relationship Specialty Start Date End Date Kaiser Amanda MD 21 [place] [address] PCP - General Family Medicine 04/11/21 documented as of this encounter
--- OUTSIDE RECORDS SUMMARY | 2024-01-29 20:49 | External Medical Summary ---
Author Name Unknown Address Unknown Organization : Laboratory Report Ordering Provider Test Date Status [facility] 08/29/2023 15:01:17 Final Therapeutic ranges for non-o perative patients:
Prophylaxsis/treatment of DVT: (Range:2.0-3.0)
Treatment of pulmonary embolism:(Range:2.0-3.0)
Prevention of systemic embolism from:
-tissue heart valves
-acute myocardial infarction
-valvular heart disease
-atrial fibrillation
(Range: 2.0-3.0)
Mechanical prosthetic valves: (Range: 2.5-3.5) Observation Date Value Abnormality Reference (Units ) Status INR in Capillary blood by Coagulation assay 08/29/2023 15:01:17 1.7 (INR) Final Performing Location
--- OUTSIDE RECORDS SUMMARY | 2024-01-29 20:49 | External Medical Summary | Summary of Care ---
Author Name Unknown Organization [facility] Address [address] [facility] [address] Phone [phone] Care Team Providers Care Pantograph Machine Operator Name Role Phone Kaiser Amanda MD Primary Care Provider [phone] Reason for Visit * Reason Onset Date Comments Advice 08/17/2023 Encounter Details Date Type Department Care Team (Late st Contact Info) Description 08/17/2023 [facility] [address] [place] [address] Kaiser Amanda MD [facility] [address] Advice Allergies Active Allergy Reactions Criticality [...] diabetes mellitus with polyneuropathy ([facility]) Take 1 Tablet by mouth in the [...] THEN RINSE 120 mL 0 07/06/2023 Active OptiantTouch Verio In Vitro Strip (Glucose Blood)Indications:T ype [...] Tablet Sublingual (Nitrostat)Indicati ons:Stable angina ([facility]) Place 1 Tablet [...] trulicity. Metamucil is fine too. Thanks! Kaiser Aamnda MD, LUISA Family Physician Candido Seth * Telephone Encounter - Gabriel Kraus OSA - 08/17/2023 11:55 AM EDT Calling with medication questions, check call details. documented in this encounter Plan of Treatment Upcoming Encounters Date Type Department Care Team (Late st Contact Info) Description 08/29/2023 3:00 PM EDT Anticoagulation Pharmacy, [place] [address] [place] [address] Pharmacist1, [facility] [place] [address] [place] [address] 08/31/2023 8:00 AM EDT Office Visit [facility] Surgery [facility] [address] [place] [address] Laney Hogue MD [address] [place] [address] 09/11/2023 8:00 AM EDT Office Visit [facility] Surgery [facility] [address] [place] [address] Laney Hogue MD [address] [place] [address] 01/21/2024 2:00 PM EDT Office Visit Endocrinology, [place] [address] [place], [place] [phone] Sakina Jones MD [address] [place] [address] 01/25/2024 3:30 PM EDT Office Visit [facility] Surgery [facility] [address] [place] [address] Laney Hogue MD 200 [place] [address] 02/05/2024 2:30 PM EDT Office Visit Urology [facility] [place] [address] [place] [address] Keagan Thayer, Bert Giron MD [address] [place] [id number] 02/25/2024 9:20 AM EDT [facility] [address] [place] [phone] Kaiser Amanda MD [address] [place] [address] Scheduled Procedures Name Priority Associated Diagnoses Date/Ti [...] 03/16/2022, 03/16/2022, 08/06/2009 Lipid Panel 02/27/2028 02/26/2023, 12/08/2021, 05/26/2021, Additional history exists DTaP,Tdap,and Td Vaccines (3 - Td or Tdap) 12/10/2029 12/11/2019, 06/03/2014 Pneumococcal Vaccine: 65+ Years Completed 05/22/2017, 02/23/2016, 09/25/2011 Zoster Vaccines Completed 03/26/2019, 12/12, 09/27/2011 Colonoscopy Discontinued 03/16/2022, 07/2021, 08/06/2009 Colorectal Cancer Screening Discontinued Influenza Vaccine (FLU shot) Completed 02/14/2023, 03/16/2022, 02/25/2021, Additional history exists VITAMIN D LEVEL ONCE IN A LIFETIME-USE SMARTSET# [id number] Completed 07/26/2023, 02/26/2023, 01/23/2023, Additional history exists [...] this encounter Medical Devices Implanted Type Area Billing Representative Device Identifier Shelf Expiration Date Model / Serial / Lot Cement Bone Simplex Hv & G - [id number] Implanted:Qty: 2 on 09/02/2020 by Gianni Hubbard MD at OR [facility] Right: Hip LUDY : ORTHOPAEDICS 08/11/2021 6195-1-010 / / [id number] Spacer Ring Aclde Distal Lg 14 - [id number] Implanted:Qty: 1 on 09/02/2020 by Gianni Hubbard MD at OR [facility] Right: Hip LUDY : ORTHOPAEDICS 11/25/2024 1133-1196 / / Accolade C Cs 127 6 37/158 - [id number] Implanted:Qty: 1 on 09/02/2020 by Gianni Hubbard MD at OR [facility] Right: Hip LUDY : ORTHOPAEDICS 05/29/2023 6057-0637D / / [id number] Hip Cocr Lfit Head V40 28/+4 - [id number] Implanted:Qty: 1 on 09/02/2020 by Gianni Hubbard MD at OR [facility] Right: Hip LUDY : ORTHOPAEDICS 11/15/2024 6260-9-228 / / [id number] Hip Head Bipol Uhr Uni 28x52 - [id number] Implanted:Qty: 1 on 09/02/2020 by Gianni Hubbard MD at OR [facility] Right: Hip LUDY : ORTHOPAEDICS 11/25/2024 UH1-52-28 / / [id number] Lens Intraoc 17.5 - [id number] - [id number] Implanted:Qty: 1 on 03/23/2022 by Rad Morgan MD at OR [facility] Left: Eye BAUSCH & LOMB 10/11/2026 [id number] / [id number] / [id number] Lens Intraoc 18.0 - [id number] - [id number] Implanted:Qty: 1 on 03/30/2022 by Rad Morgan MD at OR [facility] Right: Eye BAUSCH & LOMB 01/11/2027 [id number] / [id number] / [id number] documented as of this encounter Advance Directives [...] the patient have Health Care Power of Mental Health Technician? No Code Status History Code Status Date Activated Date Inactivated Comments No Code 03/30/2022 6:32 AM 03/30/2022 12:51 PM Th is order reflects the patients wishes and were consensually agreed upon. Question Answer Comments Discussion of Advance Directives occurred with: Patient Does the patient have a Living Will? No Does the patient have Health Care Power of Mental Health Technician? No No Code 03/23/2022 9:56 AM 03/23/2022 4:51 PM Thi s order reflects the patients wishes and were consensually agreed upon. Question Answer Comments Discussion of Advance Directives occurred with: Patient Does the patient have a Living Will? No Does the patient have Health Care Power of Mental Health Technician? No Full Code 11/26/2021 11:29 PM 11/30/2021 5:09 PM This order reflects the patients wishes and were consensually agreed upon. Question Answer Comments Discussion of Advance Directives occurred with: Patient/Family Full Code 11/14/2021 6:23 PM 11/17/2021 5:13 PM This or michael reflects the patients wishes and were consensually agreed upon. Question Answer Comments Discussion of Advance Directives occurred with: Patient Care Teams Pantograph Machine Operator Relationship Specialty Start Date End Date Kaiser Amanda MD [address] [place] [id number] PCP - General Family Medicine 04/11/21 documented as of this encounter
--- OUTSIDE RECORDS SUMMARY | 2024-01-29 20:49 | External Medical Summary | Summary of Care ---
Author Name Unknown Organization [facility] Address [address] [facility] [address] Phone [phone] Care Team Providers Care Honey Blender Name Role Phone Kaiser Amanda MD Primary Care Provider [phone] Reason for Visit * Reason Onset Date Comments Med Request 08/14/2023 Encounter Details Date Type Department Care Team (Late st Contact Info) Description 08/14/2023 [facility] [address] [place] [address] Kaiser Amanda MD 21 [facility] [place] [address] Hyperlipidemia with target LDL less than 100 Allergies Active Allergy Reactions Criticality Noted Date [...] anxiety,Type 2 diabetes mellitus with polyneuropathy ([facility]) Take 1 Tablet by [...] less than 7.5% ([facility]) USE STRIP TO CHECK [...] pharmacy and medication before forwarding?yes [facility] [address] [address] [facility] [address] [facility] Pending Prescriptions: Disp Refills Atorvastatin Calcium 40 [...] AM * Telephone Encounter - Ena German it systems manager - 08/14/2023 10:09 AM EDT Patient calling requesting refills for Atorvastatin Calcium 40 MG Oral Tablet (Lipitor) . Upon chart review, medication was last prescribed by hospital. Pt did schedule a hospital follow up visit. Please advise if you wish to continue this therapy for the patient. Pt will be out of medication on Sunday/Pt uses [facility] [address] [place] [address] Thank you, Ena German, Deck Lid Fitter Centralized Clinical Pharmacy Services (CCPS) (Formerly Telepharmacy) 08/14/2023,10:10 AM documented in this encounter Plan of Treatment Upcoming Encounters Date Type Department Care Team (Late st Contact Info) Description 08/29/2023 3:00 PM EDT Anticoagulation [address]acy, [address] [place] [address] Pharmacist1, [facility] [address] [place] [address] 08/31/2023 8:00 AM EDT Office Visit [facility] Surgery [address], [place] [address] Laney Hogue MD [address] [place] [address] [place] [address] 09/11/2023 8:00 AM EDT Office Visit [facility] Surgery [address], [place] [address] Laney Hogue MD [address] [place], [place] [address] [address] 01/21/2024 2:00 PM EDT Office Visit Endocrinology, [place] [address] [place] [address] Sakina Jones MD [address] [place] [address] 01/25/2024 3:30 PM EDT Office Visit [facility] Surgery [facility] [address] [place] [address] Laney Hogue MD [address] [place] [address] 02/05/2024 2:30 PM EDT Office Visit Urology [facility] [place] [address] [place] [address] Bert Boogie Jr., MD [address] [place] [address] 02/25/2024 9:20 AM EDT Office Visit [facility] 21 [facility] [place] [id number] Kaiser Amanda MD 21 [facility] [place] [address] Scheduled Procedures Name Priority Associated Diagnoses Date/Ti [...] D LEVEL ONCE IN A LIFETIME-USE SMARTSET# [id number] Completed 07/26/2023, 02/26/2023, 01/23/2023, Additional history exists [...] this encounter Medical Devices Implanted Type Area Mortgage Manager Device Identifier Shelf Expiration Date Model / Serial / Lot Cement Bone Simplex Hv & G - [id number] Implanted:Qty: 2 on 09/02/2020 by Gianni Hubbard MD at OR [facility] Right: Hip LUDY : ORTHOPAEDICS 08/11/2021 6195-1-010 / / [id number] Spacer Ring Aclde Distal Lg 14 - [id number] Implanted:Qty: 1 on 09/02/2020 by Gianni Hubbard MD at OR [facility] Right: Hip LUDY : ORTHOPAEDICS 11/25/2024 2800-5528 / / Accolade C Cs 127 6 37/158 - [id number] Implanted:Qty: 1 on 09/02/2020 by Gianni Hubbard MD at OR [facility] Right: Hip LUDY : ORTHOPAEDICS 05/29/2023 6057-0637D / / [id number] Hip Cocr Lfit Head V40 28/+4 - [id number] Implanted:Qty: 1 on 09/02/2020 by Gianni Hubbard MD at OR [facility] Right: Hip LUDY : ORTHOPAEDICS 11/15/2024 6260-9-228 / / [id number] Hip Head Bipol Uhr Uni 28x52 - [id number] Implanted:Qty: 1 on 09/02/2020 by Gianni Hubbard MD at OR [facility] Right: Hip LUDY : ORTHOPAEDICS 11/25/2024 UH1-52-28 / / [id number] Lens Intraoc 17.5 - [id number] - [id number] Implanted:Qty: 1 on 03/23/2022 by Rad Morgan MD at OR [facility] Left: Eye BAUSCH & LOMB 10/11/2026 [id number] / [id number] / [id number] Lens Intraoc 18.0 - [id number] - [id number] Implanted:Qty: 1 on 03/30/2022 by Rad Morgan MD at OR [facility] Right: Eye BAUSCH & LOMB 01/11/2027 [id number] / [id number] / [id number] documented as of this encounter Visit Diagnoses [...] the patient have Health Care Power of Jail Manager? No Code Status History Code Status Date Activated Date Inactivated Comments No Code 03/30/2022 6:32 AM 03/30/2022 12:51 PM Th is order reflects the patients wishes and were consensually agreed upon. Question Answer Comments Discussion of Advance Directives occurred with: Patient Does the patient have a Living Will? No Does the patient have Health Care Power of Jail Manager? No No Code 03/23/2022 9:56 AM 03/23/2022 4:51 PM Thi s order reflects the patients wishes and were consensually agreed upon. Question Answer Comments Discussion of Advance Directives occurred with: Patient Does the patient have a Living Will? No Does the patient have Health Care Power of Jail Manager? No Full Code 11/26/2021 11:29 PM 11/30/2021 5:09 PM This order reflects the patients wishes and were consensually agreed upon. Question Answer Comments Discussion of Advance Directives occurred with: Patient/Family Full Code 11/14/2021 6:23 PM 11/17/2021 5:13 PM This or michael reflects the patients wishes and were consensually agreed upon. Question Answer Comments Discussion of Advance Directives occurred with: Patient Care Teams Honey Blender Relationship Specialty Start Date End Date Kaiser Amanda MD [address] [place] [address] [address] PCP - General Family Medicine 04/11/21 documented as of this encounter
--- OUTSIDE RECORDS SUMMARY | 2024-01-29 20:49 | External Medical Summary | Summary of Care ---
Author Name Unknown Organization [facility] Address [address] [facility] [address] Phone [phone] Care Team Providers Care Package Sealer Name Role Phone Kaiser Amanda MD Primary Care Provider [phone] Reason for Visit * Reason Comments Dosage Adjustment In Person (Anticoag Cl inic) Encounter Details Date Type Department Care Team (Late st Contact Info) Description 08/29/2023 3:00 PM EDT Anticoagulation Pharmacy, [address] [place] [address] Pharmacist1, [facility] [address] [place] [address] 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*; History of pulmonary embolism; History of DVT (deep vein thrombosis) Allergies Active Allergy Reactions Criticality Noted Date Comments Cat Dander Itching 07/14/2016 documented as of this encounter (statuses as of 08/29/2023) Medications Medication Sig Dispensed Refills Start Date [...] with anxiety,Type 2 diabetes mellitus with polyneuropathy ([facility]) Take 1 Tablet by mouth [...] of less than 7.5% ([facility]) USE STRIP TO CHECK GLUCOSE ONCE DAILY 100 Strip 3 07/16/2023 Active metFORMIN HCl 1000 MG Oral Tablet (Glucophage) TAKE 1 TABLET BY MOUTH TWICE A DAY WITH BREAKFAST AND DINNER 180 Tablet 1 07/21/2023 Active Nitroglycerin 0.4 MG Sublingual Tablet Sublingual (Nitrostat)Indicati ons:Stable angina ([facility]) Place 1 Tablet under the [...] as of this encounter (statuses as of 08/29/2023) Active Problems Problem Noted Date Diagnosed Date [...] as of this encounter (statuses as of 08/29/2023) Resolved Problems Problem Noted Date Diagnosed Date [...] as of this encounter (statuses as of 08/29/2023) Immunizations Name Administration Dates Next Due COVID-19 [...] No 04/15/2022 documented as of this encounter Progress Notes * Jessi Collier, [facility] - 08/29/2023 2:54 PM EDT Images from the original note were not included. Medication Therapy Disease Management - Anticoagulation Patient: Lewis Alarcon | : 1950 Subjective Patient-Reported Symptoms: Patient Findings Positives: Change in medications (Trulicity stopped - current gall bladder concerns) Negatives: Signs/symptoms of thrombosis, Signs/symptoms of bleeding, Change in health, Change in alcohol use, Change in activity, Upcoming invasive procedure, Missed doses, Extra doses, Change in diet/appetite, Bruising Objective Current Warfarin Dose As of 08/29/2023 Warfarin maintenance plan: 5 mg (5 mg x 1) every day INR Result As of 08/29/2023 INR goal: 2.0-3.0 INR used for dosin.7 (08/29/2023) Assessment & Plan Warfarin Plan As of 08/29/2023 Full warfarin instructions: 08/28: 7.5 mg; Otherwise 5 mg every day Next INR check: 09/10/2023 Repeat PT/INR in 2 week(s) Weekly dose: not changed Additional Dosing Information: Description Patient scheduled for [facility] surgery on 08/30 and 09/10. INR to be < 3.5 for day of procedure. Will check INR 2-3 days prior to procedure (no more than 7 days before). Jessi Collier [facility] Clinical Pharmacist 08/29/2023, 2:54 PM documented in this encounter Plan of Treatment Upcoming Encounters Date Type Department Care Team (Late st Contact Info) Description 08/31/2023 8:00 AM EDT Office Visit [facility] [address] [address] Laney Hogue MD [address] [place] [address] [place] [address] 09/10/2023 1:30 PM EDT Anticoagulation Pharmacy, [address] [place] [address] Pharmacist1, [address] [place] [address] 09/11/2023 8:00 AM EDT Office Visit [facility] [address] [address] Laney Hogue MD [address] [place] [address] [place] [address] 01/21/2024 2:00 PM EDT Office Visit Endocrinology, [address] [place] [address] Sakina Jones MD [address] [place] [facility] [place] [address] 01/25/2024 3:30 PM EDT Office Visit [facility] Surgery [facility] [address] [place] [address] Laney Hogue MD [address] [place] [address] 02/05/2024 2:30 PM EDT Office Visit Urology [facility] [place] [address] [place] [address] Bert Boogie Jr., MD [address] [place] [address] 02/25/2024 9:20 AM EDT Office Visit [facility] [id number] Kaiser Amanda MD [address] [facility] [place] [address] Scheduled Orders Name Type Priority Associated Diagnoses Orde r Schedule PT INR Lab Routine History of pulmonary embolism History of DVT (deep vein thrombosis) 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 26 Occurrences starting 08/29/2023 until 08/28/2024 INR FINGERSTICK, POINT OF CARE Point of Care Testing - Unsolicited Results STAT History of pulmonary embolism History of DVT (deep vein thrombosis) 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 Every 2 Weeks for 26 Occurrences starting 08/29/2023 until 08/28/2024, 1 completed Scheduled Procedures Name Priority Associated Diagnoses Date/Ti [...] Completed 03/26/2019, 12/12, 09/27/2011 Colonoscopy Discontinued 03/16/2022, 110 07/2021, 08/06/2009 Colorectal Cancer Screening Discontinued Influenza Vaccine (FLU shot) Completed 02/14/2023, 03/16/2022, 02/25/2021, Additional history exists VITAMIN D LEVEL ONCE IN A LIFETIME-USE SMARTSET# [id number] Completed 07/26/2023, 02/26/2023, 01/23/2023, Additional history exists [...] this encounter Medical Devices Implanted Type Area Service Desk Director Device Identifier Shelf Expiration Date Model / Serial / Lot Cement Bone Simplex Hv & G - [id number] Implanted:Qty: 2 on 09/02/2020 by Gianni Hubbard MD at OR [facility] Right: Hip LUDY : ORTHOPAEDICS 08/11/2021 6195-1-010 / / [id number] Spacer Ring Aclde Distal Lg 14 - [id number] Implanted:Qty: 1 on 09/02/2020 by Gianni Hubbard MD at OR [facility] Right: Hip LUDY : ORTHOPAEDICS 11/25/2024 [id number] / / Accolade C Cs 127 6 37/158 - [id number] Implanted:Qty: 1 on 09/02/2020 by Gianni Hubbard MD at OR [facility] Right: Hip LUDY : ORTHOPAEDICS 05/29/2023 [id number] / / [id number] Hip Cocr Lfit Head V40 28/+4 - [id number] Implanted:Qty: 1 on 09/02/2020 by Gianni Hubbard MD at OR [facility] Right: Hip LUDY : ORTHOPAEDICS 11/15/2024 6260-9-228 / / [id number] Hip Head Bipol Uhr Uni 28x52 - [id number] Implanted:Qty: 1 on 09/02/2020 by Gianni Hubbard MD at OR [facility] Right: Hip LUDY : ORTHOPAEDICS 11/25/2024 [id number] / / [id number] Lens Intraoc 17.5 - [id number] - [id number] Implanted:Qty: 1 on 03/23/2022 by Rad Morgan MD at OR [facility] Left: Eye BAUSCH & LOMB 10/11/2026 [id number] / [id number] / [id number] Lens Intraoc 18.0 - [id number] - [id number] Implanted:Qty: 1 on 03/30/2022 by Rad Morgan MD at [facility] Right: Eye BAUSCH & LOMB 01/11/2027 [id number] / [id number] / [id number] documented as of this encounter Procedures Procedure Name Priority Date/Time Associated Diagnosis Comments INR FINGERSTICK, POINT OF CARE STAT 08/29/2023 3:01 PM EDT History of pulmonary embolism History of DVT (deep vein thrombosis) 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 documented in this encounter Results * INR FINGERSTICK, POINT OF CARE (08/29/2023 3:01 PM EDT) Fingerstick INR 1.7 INR 3:03 PM EDT [facility]- Blood 08/29/2023 3:01 PM EDT 08/29/2023 3:03 PM EDT Narrative [facility]- - 08/29/2023 3:03 PM EDT Therapeutic ranges for non-operative patients: Prophylaxsis/treatment of DVT: (Range:2.0-3.0) Treatment of pulmonary embolism:(Range:2.0-3.0) Prevention of systemic embolism from: -tissue heart valves -acute myocardial infarction -valvular heart disease -atrial fibrillation (Range: 2.0-3.0) Mechanical prosthetic valves: (Range: 2.5-3.5) Jessi Collier [facility] LAB POINT OF CARE T EST DOCKED DEVICE UNSOLICITED RESULTS [facility]- [address] [place] [address] documented in this encounter Visit Diagnoses [...] the patient have Health Care Power of Box Maker? No Code Status History Code Status Date Activated Date Inactivated Comments No Code 03/30/2022 6:32 AM 03/30/2022 12:51 PM Th is order reflects the patients wishes and were consensually agreed upon. Question Answer Comments Discussion of Advance Directives occurred with: Patient Does the patient have a Living Will? No Does the patient have Health Care Power of Box Maker? No No Code 03/23/2022 9:56 AM 03/23/2022 4:51 PM Thi s order reflects the patients wishes and were consensually agreed upon. Question Answer Comments Discussion of Advance Directives occurred with: Patient Does the patient have a Living Will? No Does the patient have Health Care Power of Box Maker? No Full Code 11/26/2021 11:29 PM 11/30/2021 5:09 PM This order reflects the patients wishes and were consensually agreed upon. Question Answer Comments Discussion of Advance Directives occurred with: Patient/Family Full Code 11/14/2021 6:23 PM 11/17/2021 5:13 PM This or michael reflects the patients wishes and were consensually agreed upon. Question Answer Comments Discussion of Advance Directives occurred with: Patient Care Teams Package Sealer Relationship Specialty Start Date End Date Kaiser Amanda MD [address] [place] [address] PCP - General Family Medicine 04/11/21 documented as of this encounter"
--- OUTSIDE RECORDS SUMMARY | 2024-01-29 20:49 | External Medical Summary | Summary of Care ---
Author Name Unknown Organization [facility] Address [address] [facility] [place] [address] Phone [phone] Care Team Providers Care Gaming Director Name Role Phone Kaiser Amanda MD Primary Care Provider [phone] Reason for Visit * Reason Onset Date Comments Med Request 08/14/2023 Encounter Details Date Type Department Care Team (Late st Contact Info) Description [facility]/14[facility] [place] [phone] Kaiser Amanda MD [address] [place] [address] Med Request Allergies Active Allergy [...] of less than 7.5% ([facility]) TAKE 1 TABLET BY MOUTH DAILY. TAKE 30 MINUTES BEFORE A MEAL 90 Tablet 3 12/26/2022 Active DULoxetine HCl 60 MG Oral Capsule Delayed Release Particles (Cymbalta)Indicatio ns:Depression with anxiety Take 1 Capsule by mouth in the morning. 90 Capsule 3 12/26/2022 Active Amitriptyline HCl 25 MG Oral Tablet (Elavil)Indications :Depression with anxiety,Type 2 diabetes mellitus with polyneuropathy ([facility]) Take 1 Tablet by mouth [...] Blood)Indications:T ype 2 diabetes mellitus with polyneuropathy ([facility]),Type 2 diabetes mellitus with hemoglobin A1c goal of less than 7.5% ([facility]) USE STRIP TO CHECK GLUCOSE ONCE DAILY 100 Strip 3 07/16/2023 Active metFORMIN HCl 1000 MG Oral Tablet (Glucophage) TAKE 1 TABLET BY MOUTH TWICE A DAY WITH BREAKFAST AND DINNER 180 Tablet 1 07/21/2023 Active Nitroglycerin 0.4 MG Sublingual Tablet Sublingual (Nitrostat)Indicati ons:Stable angina ([facility]) Place 1 Tablet under the [...] pharmacy and medication before forwarding?yes [facility]: [facility] [address] [place] [address] [facility] [address] [place] [address] Pending Prescriptions: Disp Refills Atorvastatin Calcium 40 [...] out of medication on Sunday/[facility] [address] [place] [address] Thank you, Ena German, Vocational Auto Body Instructor [facility] ([facility] (Formerly Telepharm[facility]) 08/14/2023,10:10 AM documented in this encounter Plan of Treatment Upcoming Encounters Date Type Department Care Team (Late st Contact Info) Description 08/29/2023 3:00 PM EDT Anticoagulation Pharmacy, [address] [place] [address] Pharmacist1, [address] [place] [address] 08/31/2023 8:00 AM EDT Office Visit [facility] Surgery [address] [place] [address] Laney Hogue MD [address] [place] [address] [place] [address] 09/11/2023 8:00 AM EDT Office Visit [facility] Surgery [address], [place] [address] Laney Hogue MD [address] [place] [address] [place] [address] 01/21/2024 2:00 PM EDT Office Visit Endocrinology, [place] [address] [place] [address] Sakina Jones MD [address] [place] [address] 01/25/2024 3:30 PM EDT Office Visit [facility] Surgery [facility] [address] [place] [address] Laney Hogue MD [address] [place] [address] 02/05/2024 2:30 PM EDT Office Visit Urology [facility] [place] [address] [place], [place] [id number] Bert Boogie Jr., MD [address] [place] [address] 02/25/2024 9:20 AM EDT Office Visit [facility] [address] [facility] [place] [phone] Kaiser Amanda MD [address] [facility] [place] [id number] Scheduled Procedures Name Priority Associated Diagnoses Date/Ti [...] D LEVEL ONCE IN A LIFETIME-USE SMARTSET# [id number] Completed 07/26/2023, 02/26/2023, 01/23/2023, Additional history exists [...] this encounter Medical Devices Implanted Type Area Rail Washer Device Identifier Shelf Expiration Date Model / Serial / Lot Cement Bone Simplex Hv & G - [id number] Implanted:Qty: 2 on 09/02/2020 by Gianni Hubbard MD at OR [facility] Right: Hip LUDY : ORTHOPAEDICS 08/11/2021 6195-1-010 / / [id number] Spacer Ring Aclde Distal Lg 14 - [id number] Implanted:Qty: 1 on 09/02/2020 by Gianni Hubbard MD at OR [facility] Right: Hip LUDY : ORTHOPAEDICS 11/25/2024 [id number] / / Accolade C Cs 127 6 37/158 - [id number] Implanted:Qty: 1 on 09/02/2020 by Gianni uHbbard MD at OR [facility] Right: Hip LUDY : ORTHOPAEDICS 05/29/2023 [id number] / / [id number] Hip Cocr Lfit Head V40 28/+4 - [id number] Implanted:Qty: 1 on 09/02/2020 by Gianni Hubbard MD at OR [facility] Right: Hip LUDY : ORTHOPAEDICS 11/15/2024 6260-9-228 / / [id number] Hip Head Bipol Uhr Uni 28x52 - [id number] Implanted:Qty: 1 on 09/02/2020 by Gianni Hubbard MD at OR [facility] Right: Hip LUDY : ORTHOPAEDICS 11/25/2024 UH1-52-28 / / [id number] Lens Intraoc 17.5 - [id number] - [id number] Implanted:Qty: 1 on 03/23/2022 by Rad Morgan MD at OR [facility] Left: Eye BAUSCH & LOMB 10/11/2026 [id number] / [id number] / [id number] Lens Intraoc 18.0 - [id number] - [id number] Implanted:Qty: 1 on 03/30/2022 by Rad Morgan MD at OR [facility] Right: Eye BAUSCH & LOMB 01/11/2027 [id number] / [id number] / [id number] documented as of this encounter Visit Diagnoses [...] the patient have Health Care Power of Aquatic Performer? No Code Status History Code Status Date Activated Date Inactivated Comments No Code 03/30/2022 6:32 AM 03/30/2022 12:51 PM Th is order reflects the patients wishes and were consensually agreed upon. Question Answer Comments Discussion of Advance Directives occurred with: Patient Does the patient have a Living Will? No Does the patient have Health Care Power of Aquatic Performer? No No Code 03/23/2022 9:56 AM 03/23/2022 4:51 PM Thi s order reflects the patients wishes and were consensually agreed upon. Question Answer Comments Discussion of Advance Directives occurred with: Patient Does the patient have a Living Will? No Does the patient have Health Care Power of Aquatic Performer? No Full Code 11/26/2021 11:29 PM 11/30/2021 5:09 PM This order reflects the patients wishes and were consensually agreed upon. Question Answer Comments Discussion of Advance Directives occurred with: Patient/Family Full Code 11/14/2021 6:23 PM 11/17/2021 5:13 PM This or michael reflects the patients wishes and were consensually agreed upon. Question Answer Comments Discussion of Advance Directives occurred with: Patient Care Teams Gaming Director Relationship Specialty Start Date End Date Kaiser Amanda MD [address] [place] [address] PCP - General Family Medicine 04/11/21 documented as of this encounter
--- OUTSIDE RECORDS SUMMARY | 2024-01-29 20:49 | External Medical Summary | Summary of Care ---
Author Name Unknown Organization [facility] Address [address] [place] [address] Phone [phone] Care Team Providers Care Senior Analyst Market Intelligence Name Role Phone Kaiser Amanda MD Primary Care Provider [phone] Reason for Visit * Reason Comments Mohs Surgery Encounter Details Date Type Department Care Team (Late st Contact Info) Description 08/31/2023 8:00 AM EDT Office Visit MOHS Surgery [facility] [address] [place] [address] Laney Hogue MD [address] [place] [id number] BCC (basal cell carcinoma), scalp/neck [C44.41]*; Actinic keratosis Allergies Active Allergy Reactions Criticality Noted Date Comments Cat Dander Itching 07/14/2016 documented as of this encounter (statuses as of 09/01/2023) Medications Medication Sig Dispensed Refills Start Date [...] anxiety,Type 2 diabetes mellitus with polyneuropathy ([facility]) Take 1 Tablet by [...] Sublingual Tablet Sublingual (Nitrostat)Indicati ons:Stable angina ([facility]) Place 1 Tablet under the tongue every [...] as of this encounter (statuses as of 09/01/2023) Active Problems Problem Noted Date Diagnosed Date [...] as of this encounter (statuses as of 09/01/2023) Resolved Problems Problem Noted Date Diagnosed Date [...] as of this encounter (statuses as of 09/01/2023) Immunizations Name Administration Dates Next Due COVID-19 [...] Sign Reading Time Taken Comments Blood Pressure - - Pulse - - Temperature 36.4 C (97.5 F) 08/31/2023 8:02 AM ED T Respiratory Rate - - Oxygen Saturation - - Inhaled Oxygen Concentration - - Weight 79.4 kg (175 lb) 08/31/2023 8:02 AM EDT Height - - Body Mass Index 25.84 07/26/2023 10:01 AM EDT documented in this encounter Functional [...] of this encounter Progress Notes * Laney Hogue MD - 08/31/2023 8:00 AM EDT [facility] [place] Surgery Note (See separate transcribed operative note for further detail) History: Lewis Alarcon is a 72 year old patient seen for evaluation and management of the following lesions: A. Skin, right frontal scalp, shave: Superficial and focally nodular basal cell carcinoma, transected. C. Skin, left frontal scalp, shave: At least nodular basal cell carcinoma, transected. Patient problem list reviewed. Patient medication/allergy lists reviewed. Examination: Lewis Alarcon is alert, oriented and appears well and in no distress. The patient's skin is remarkable for: right frontal scalp: 0.7 cm x 0.5 cm pink scar left frontal scalp: 0.6 cm x 0.6 cm pink scar Right forehead with small pink scaly thin papule Impression/Plan: Basal cell carcinoma - right frontal scalp MMS Standard Mohs micrographic technique was utilized to treat this tumor. Microscopic examination of the specimen allowed the Mohs surgeon, whose dual role is to function as both surgeon and pathologist, to precisely identify the location of any remaining tumor or ascertain that the tissue margins were free of tumor. This process of excision of remaining tumor, mapping, and histologic exam was repeated until the tumor was excised completely. Patient identified, procedure verified, site identified and verified with the patient. Time out completed. Surgical removal of the lesion discussed with the patient (risks and benefits, including possibility of scarring, infection, bleeding, recurrence or potential for further treatment). I have specifically identified the site with the patient. I have discussed the fact that the patient will have a scar after the procedure regardless of granulation or repair with sutures. I have discussed that the repair options can range from granulation in some cases to linear or curvilinear closures to larger flaps or grafts. There is a risk of injury to nerves causing temporary or permanent numbness or the inability to move muscles fully such as the inability to lift eyebrows. Questions answered and verbal and written consent was obtained. 1 stage(s) Anesthetic: 0.05% lidocaine with 1:100,000 epinephrine. Repair: Purse-string (see separate operative report for details) Absorbable sutures Wound care was discussed verbally, demonstrated and printed wound instructions given as well as wound care supplies. Patient instructed to call with questions or concerns. Personal contact information provided. 2. Basal cell carcinoma - left frontal scalp MMS Standard Mohs micrographic technique was utilized to treat this tumor. Microscopic examination of the specimen allowed the Mohs surgeon, whose dual role is to function as both surgeon and pathologist, to precisely identify the location of any remaining tumor or ascertain that the tissue margins were free of tumor. This process of excision of remaining tumor, mapping, and histologic exam was repeated until the tumor was excised completely. Patient identified, procedure verified, site identified and verified with the patient. Time out completed. Surgical removal of the lesion discussed with the patient (risks and benefits, including possibility of scarring, infection, recurrence or potential for further treatment). I have specifically identified the site with the patient. I have discussed the fact that the patient will have a scar after the procedure regardless of granulation or repair with sutures. I have discussed that the repair options can range from granulation in some cases to linear or curvilinear closures to larger flaps or grafts. There is a risk of injury to nerves causing temporary or permanent numbness or the inability to move muscles fully such as the inability to lift eyebrows. Questions answered and verbal and written consent was obtained. 1 stage(s) Anesthetic: 0.05% lidocaine with 1:100,000 epinephrine. Repair: Purse-string (see separate operative report for details) Absorbable sutures Wound care was discussed verbally, demonstrated and printed wound instructions given as well as wound care supplies. Patient instructed to call with questions or concerns. Personal contact information provided. 3. actinic keratosis, right forehead Cryosurgery was explained to the patient, verbal consent obtained, patient, site and procedure verified, and then cryotherapy was performed with liquid nitrogen via cryo spray unit to 1 lesions. Postop course explained. *TWO MOHS SURGERIES COMPLETED TODAY Follow-up: as needed/as scheduled Laney Hogue MD Associate, Mohs Micrographic Surgery & Dermatologic Surgery documented in this encounter Nursing Notes * Yina Rosas, EDUARDO - 08/31/2023 8:03 AM EDT Chief Complaint Patient presents with Mohs Surgery Referral Doctor: Mykel Hypertension History: Yes, refer to medication information for treatment. Diabetes History: Yes, refer to medication information for treatment. Thyroid History: Yes, refer to medication information for treatment. Bleeding Tendency: Yes, refer to medication information for treatment. Artificial Valve or Joint: Yes, No SBE Prophylaxis Required Pacemaker: no Defibrillator: no Hepatitis/HIV Exposure: No Smoking: no Consent signed yes documented in this encounter Plan of Treatment Upcoming Encounters Date Type Department Care Team (Late st Contact Info) Description 09/10/2023 1:30 PM EDT Anticoagulation Pharmacy, [place] [address] [address] [address] Pharmac[address], [facility] [place] [address] [place] [address] 01/21/2024 2:00 PM EDT Office Visit Endocrinology, [place] [address], [place] [id number] Sakina Jones MD [address], [place] [id number] 01/25/2024 3:30 PM EDT Office Visit [facility] Surgery [facility] [address] [place] [address] Laney Hogue MD [address] [place] [address] 02/05/2024 2:30 PM EDT Office Visit Urology [facility] [address] [facility] [address] [address] Bert Boogie Jr., MD [address] [facility] [address] [place] [address] 02/25/2024 9:20 AM EDT Office Visit Family [facility], [place] [address] [phone] Kaiser Amanda MD [address] [address] Scheduled Procedures Name Priority Associated Diagnoses Date/Ti [...] D LEVEL ONCE IN A LIFETIME-USE SMARTSET# [id number] Completed 07/26/2023, 02/26/2023, 01/23/2023, Additional history exists [...] this encounter Medical Devices Implanted Type Area Emergency Technician Device Identifier Shelf Expiration Date Model / Serial / Lot Cement Bone Simplex Hv & G - [id number] Implanted:Qty: 2 on 09/02/2020 by Gianni Hubbard MD at OR [facility] Right: Hip LUDY : ORTHOPAEDICS 08/11/2021 6195-1-010 / / [id number] Spacer Ring Aclde Distal Lg 14 - [id number] Implanted:Qty: 1 on 09/02/2020 by Gianni Hubbard MD at OR [facility] Right: Hip LUDY : ORTHOPAEDICS 11/25/2024 [id number] / / Accolade C Cs 127 6 37/158 - [id number] Implanted:Qty: 1 on 09/02/2020 by Gianni Hubbard MD at OR [facility] Right: Hip LUDY : ORTHOPAEDICS 05/29/2023 [id number] / / [id number] Hip Cocr Lfit Head V40 28/+4 - [id number] Implanted:Qty: 1 on 09/02/2020 by Gianni Hubbard MD at OR [facility] Right: Hip LUDY : ORTHOPAEDICS 11/15/2024 6260-9-228 / / [id number] Hip Head Bipol Uhr Uni 28x52 - [id number] Implanted:Qty: 1 on 09/02/2020 by Gianni Hubbard MD at OR [facility] Right: Hip LUDY : ORTHOPAEDICS 11/25/2024 UH1-52-28 / / [id number] Lens Intraoc 17.5 - [id number] - [id number] Implanted:Qty: 1 on 03/23/2022 by Rad Morgan MD at OR [facility] Left: Eye BAUSCH & LOMB 10/11/2026 [id number] / [id number] / [id number] Lens Intraoc 18.0 - [id number] - [id number] Implanted:Qty: 1 on 03/30/2022 by Rad Morgan MD at OR [facility] Right: Eye BAUSCH & LOMB 01/11/2027 [id number] / [id number] / [id number] documented as of this encounter Visit Diagnoses Diagnosis BCC (basal cell carcinoma), scalp/neck [C44.41]- Primary Basal cell carcinoma of scalp and skin of neck Actinic keratosis documented in this encounter Advance Directives Latest Code Status on File Code Status Date Activated Date Inactivated Comments Full Code 04/15/2022 10:45 PM 04/18/2022 3:06 PM This order reflects the patients wishes and were consensually agreed upon. Question Answer Comments Discussion of Advance Directives occurred with: Patient Does the patient have a Living Will? No Does the patient have Health Care Power of Cancer Genetic Counselor? No Code Status History Code Status Date Activated Date Inactivated Comments No Code 03/30/2022 6:32 AM 03/30/2022 12:51 PM Th is order reflects the patients wishes and were consensually agreed upon. Question Answer Comments Discussion of Advance Directives occurred with: Patient Does the patient have a Living Will? No Does the patient have Health Care Power of Cancer Genetic Counselor? No No Code 03/23/2022 9:56 AM 03/23/2022 4:51 PM Thi s order reflects the patients wishes and were consensually agreed upon. Question Answer Comments Discussion of Advance Directives occurred with: Patient Does the patient have a Living Will? No Does the patient have Health Care Power of Cancer Genetic Counselor? No Full Code 11/26/2021 11:29 PM 11/30/2021 5:09 PM This order reflects the patients wishes and were consensually agreed upon. Question Answer Comments Discussion of Advance Directives occurred with: Patient/Family Full Code 11/14/2021 6:23 PM 11/17/2021 5:13 PM This or michael reflects the patients wishes and were consensually agreed upon. Question Answer Comments Discussion of Advance Directives occurred with: Patient Care Teams Senior Analyst Market Intelligence Relationship Specialty Start Date End Date Kaiser Amanda MD [address] [id number] PCP - General Family Medicine 04/11/21 documented as of this encounter
--- OUTSIDE RECORDS SUMMARY | 2024-01-29 20:49 | External Medical Summary | Summary of Care ---
Author Name Unknown Organization [facility] Address [address] [place] [address] Phone [phone] Care Team Providers Care Rn Telemetry Name Role Phone Kaiser Amanda MD Primary Care Provider [phone] Encounter Details Date Type Department Care Team (Latest Contact Info) Description 08/13/2023 3:12 PM EDT - 08/13/2023 11:59 PM EDT Hospital Encounter Radiology, [address] [phone] Arrived Discharge Disposition: Home - Self Care [...] [facility]),Type 2 diabetes mellitus with polyneuropathy (HCC) Check [...] at noon. 30 Tablet 3 2 Active Warfarin Sodium 5 MG Oral Tablet (Coumadin) Take 1-2 Tablets (5-10 mg) by mouth in the morning. Or as directed by anticoagulation clinic. 180 Tablet 3 2 Active Mupirocin 2 % [...] the morning. 90 Capsule 3 3 Active Amitriptyline HCl 25 MG Oral Tablet (Elavil)Indication s:Depression with anxiety,Type 2 diabetes mellitus with polyneuropathy ([facility]) Take 1 Tablet by mouth in the morning and 1 Tablet before bedtime. 60 Tablet 6 3 Active Hydrocortisone 2.5 % External Cream [...] Blood)Indications: Type 2 diabetes mellitus with polyneuropathy ([facility] [...] MG Sublingual Tablet Sublingual (Nitrostat)Indicat ions:Stable angina ([facility]) Place 1 Tablet under the tongue every 5 minutes as needed for Pain, Chest. 25 Tablet 0 4 Active Additional Information Patient not taking.Reported on 08/10/2023 Omeprazole 20 MG Oral Capsule Delayed Release (PriLOSEC)Indicati ons:Gastroesophage al reflux disease, unspecified whether esophagitis present Take 1 Capsule by mouth in the morning. 1 hour before the first meal of the day. 30 Capsule 5 4 Active Additional Information Patient not taking.Reported on 08/10/2023 Atorvastatin Calcium 40 MG Oral Tablet (Lipitor)Indicatio ns:Hyperlipidemia with target LDL less than 100 Take 1 Tablet by mouth in the morning. 90 Tablet 3 3 08/14/19 24 Discontinu ed(Refill) documented as of this [...] tract infection) 12/04/2018 12/24/2018 Severe malnutrition 12/01/2018 07/25/20 19 Acute venous [...] Description 08/29/2023 3:00 PM EDT Anticoagulation Pharmacy, [place] [address] [address] [address] Pharmacist1, [facility] [address] [address] 08/31/2023 8:00 AM EDT Office Visit [facility] Surgery [facility] [place] [address] [place] [address] [facility] [address] 09/11/2023 8:00 AM EDT Office Visit [facility] Surgery [facility] [address] [place] [address] Laney Hogue MD [address] [place] [address] 01/21/2024 2:00 PM EDT Office Visit [facility] [place] [address] [place] [address] Sakina Jones MD [address] [place] [address] 01/25/2024 3:30 PM EDT Office Visit [facility] [address] [place] [address] Laney Hogue MD [address] [place] [address] 02/05/2024 2:30 PM EDT Office Visit Urology [facility] [address] [place] [address] [place] [address] Bert Boogie Jr., MD [address] [place] [address] [place] [address] 02/25/2024 9:20 AM EDT Office Visit [facility] [address] [phone] Kaiser Amanda MD [address] [address] Scheduled Procedures Name Priority Associated Diagnoses Date/Ti [...] D LEVEL ONCE IN A LIFETIME-USE SMARTSET# 68634 Completed 07/26/2023, 02/26/2023, 01/23/2023, Additional history exists [...] this encounter Medical Devices Implanted Type Area Product Safety And Standards Engineer Device Identifier Shelf Expiration Date Model / Serial / Lot Cement Bone Simplex Hv & G - [id number] Implanted:Qty: 2 on 09/02/2020 by Gianni Hubbard MD at OR [facility] Right: Hip LUDY : ORTHOPAEDICS 08/11/2021 6195-1-010 / / [id number] Spacer Ring Aclde Distal Lg 14 - [id number] Implanted:Qty: 1 on 09/02/2020 by Gianni Hubbard MD at OR [facility] Right: Hip LUDY : ORTHOPAEDICS 11/25/2024 [id number] / / Accolade C Cs 127 6 37/158 - [id number] Implanted:Qty: 1 on 09/02/2020 by Gianni Hubbard MD at OR [facility] Right: Hip LUDY : ORTHOPAEDICS 05/29/2023 6057-0637D / / [id number] Hip Cocr Lfit Head V40 28/+4 - [id number] Implanted:Qty: 1 on 09/02/2020 by Gianni Hubbard MD at OR [facility] Right: Hip LUDY : ORTHOPAEDICS 11/15/2024 6260-9-228 / / [id number] Hip Head Bipol Uhr Uni 28x52 - [id number] Implanted:Qty: 1 on 09/02/2020 by Gianni Hubbard MD at OR [facility] Right: Hip LUDY : ORTHOPAEDICS 11/25/2024 UH1-52-28 / / [id number] Lens Intraoc 17.5 - [id number] - [id number] Implanted:Qty: 1 on 03/23/2022 by Rad Morgan MD at OR [facility] Left: Eye BAUSCH & LOMB 10/11/2026 [id number] / [id number] / [id number] Lens Intraoc 18.0 - [id number] - [id number] Implanted:Qty: 1 on 03/30/2022 by Rad Morgan MD at OR [facility] Right: Eye BAUSCH & LOMB 01/11/2027 [id number] / [id number] / [id number] documented as of this encounter Procedures Procedure Name Priority Date/Time Associated Diagnosis Comments US EXTREMITY, NON-VASCULAR LIMITED Routine 08/13/2023 3:37 PM EDT Groin lump documented in this encounter Results * US EXTREMITY, NON-VASCULAR LIMITED (08/13/2023 3:37 PM EDT) Anatomical Region Laterality Modality Extremity, Lower Extremity, Upper Extremity Ultrasound 08/14/2023 10:5 1 AM EDT Impressions 08/14/2023 10:48 AM EDT IMPRESSION 1. Indeterminate bandlike structure in the right inguinal region, which appears to correspond to the palpable abnormality. The exact etiology of the bandlike structure is unclear, though it may represent scarring and/or mesh (if consistent with the patient's surgical history). CT scan or MRI could be considered for further characterization if clinically indicated. 2. No mass or lymphadenopathy to suggest lymphoma. Narrative 08/14/2023 10:48 AM EDT EXAM US EXTREMITY, NON-VASCULAR LIMITED-RT 08/13/2023 3:37 pm HISTORY Provided clinical history: "groin lump, h/o lymphoma" COMPARISON Abdominopelvic CT scan dated April 15, 2022. TECHNIQUE Focused grayscale and color Doppler ultrasound of the right groin/inguinal region was performed, and pharmaceutical specialty representative still images and cine clips are provided. FINDINGS There is a relatively linear/bandlike hypoechoic area in the right inguinal region that is associated with posterior acoustic shadowing. This is located in the region of the palpable abnormality as indicated by the patient, and may be the source of the reported lump. There is no discrete mass, hernia, or lymphadenopathy. Procedure Note James Gross MD - 08/14/2023 EXAM US EXTREMITY, NON-VASCULAR LIMITED-RT 08/13/2023 3:37 pm HISTORY Provided clinical history: "groin lump, h/o lymphoma" COMPARISON Abdominopelvic CT scan dated April 15, 2022. TECHNIQUE Focused grayscale and color Doppler ultrasound of the right groin/inguinalregion was performed, and pharmaceutical specialty representative still images and cine clips areprovided. FINDINGS There is a relatively linear/bandlike hypoechoic area in the rightinguinal region that is associated with posterior acoustic shadowing.This is located in the region of the palpable abnormality as indicated bythe patient, and may be the source of the reported lump. There is nodiscrete mass, hernia, or lymphadenopathy. IMPRESSION IMPRESSION 1. Indeterminate bandlike structure in the right inguinal region, whichappears to correspond to the palpable abnormality. The exact etiology ofthe bandlike structure is unclear, though it may represent scarring and/ormesh (if consistent with the patient's surgical history). CT scan or MRIcould be considered for further characterization if clinicallyindicated. 2. No mass or lymphadenopathy to suggest lymphoma. Aydee THAKUR ULTRASOUND documented in this encounter Visit Diagnoses Diagnosis Groin lump Abdominal or pelvic swelling, mass or lump, unspecified site documented in this encounter Advance Directives Latest Code Status on File Code Status Date Activated Date Inactivated Comments Full Code 04/15/2022 10:45 PM 04/18/2022 3:06 PM This order reflects the patients wishes and were consensually agreed upon. Question Answer Comments Discussion of Advance Directives occurred with: Patient Does the patient have a Living Will? No Does the patient have Health Care Power of Landscape Foreman? No Code Status History Code Status Date Activated Date Inactivated Comments No Code 03/30/2022 6:32 AM 03/30/2022 12:51 PM Th is order reflects the patients wishes and were consensually agreed upon. Question Answer Comments Discussion of Advance Directives occurred with: Patient Does the patient have a Living Will? No Does the patient have Health Care Power of Landscape Foreman? No No Code 03/23/2022 9:56 AM 03/23/2022 4:51 PM Thi s order reflects the patients wishes and were consensually agreed upon. Question Answer Comments Discussion of Advance Directives occurred with: Patient Does the patient have a Living Will? No Does the patient have Health Care Power of Landscape Foreman? No Full Code 11/26/2021 11:29 PM 11/30/2021 5:09 PM This order reflects the patients wishes and were consensually agreed upon. Question Answer Comments Discussion of Advance Directives occurred with: Patient/Family Full Code 11/14/2021 6:23 PM 11/17/2021 5:13 PM This or michael reflects the patients wishes and were consensually agreed upon. Question Answer Comments Discussion of Advance Directives occurred with: Patient Care Teams Rn Telemetry Relationship Specialty Start Date End Date Kaiser Amanda MD [address] [address] PCP - General Family Medicine 04/11/21 documented as of this encounter
--- OUTSIDE RECORDS SUMMARY | 2024-01-29 20:50 | External Medical Summary | Summary of Care ---
Author Name Unknown Organization [facility] Address [address] [facility] [address] Phone [phone] Care Team Providers Care Hat Conditioner Name Role Phone Kaiser Amanda MD Primary Care Provider [phone] Reason for Referral * Evaluate & Treat - Unlimited Visits (Within 10 days (routine)) - Authorized Specialty Diagnoses / Procedures Referred By Fauzia oconnor Referred To Contact General Surgery Diagnoses Abdominal pain, RUQ Kaiser Amanda MD [address] [address] Referral ID Status Reason Start Date Expiration Date Visits Requested Visits Authorized [id number] Authorized Specialty Services Required 08/09/2023 999 999 Question Answer Referral Priority Within 10 days (routine) Where should this appointment be scheduled? Mario What condition is the patient being seen for? General Surgery Conditions What condition is the patient being seen for? Gallbladder Reason for Visit * Reason Onset Date Comments Advice 08/09/2023 Encounter Details Date Type Department Care Team (Late st Contact Info) Description 08/09/2023 Telephone [facility] Rolo Chacko [address] [id number] Kaiser Amanda MD [address] [address] Advice Allergies Active Allergy Reactions Criticality Noted Date Comments Cat Dander Itching 07/14/2016 documented as of this encounter (statuses as of 08/09/2023) Medications Medication Sig Dispensed Refills Start Date [...] anticoagulation clinic. 180 Tablet 3 2 Active Atorvastatin Calcium 40 MG Oral Tablet (Lipitor)Indicatio ns:Hyperlipidemia with target LDL less than 100 Take 1 Tablet by mouth in the morning. 90 Tablet 3 3 Active Mupirocin 2 % External Ointment [...] the day. 30 Capsule 5 4 Active Trulicity 0.75 MG/0.5ML Subcutaneous Solution Pen-injector (Dulaglutide) INJECT 0.75MG (0.5ML) UNDER THE SKIN ONCE A WEEK 6 mL 3 3 08/09/19 24 Discontinu ed(Medicat ion/Dose Changed) documented as of this encounter (statuses as of 08/09/2023) Active Problems Problem Noted Date Diagnosed Date [...] as of this encounter (statuses as of 08/09/2023) Resolved Problems Problem Noted Date Diagnosed Date [...] as of this encounter (statuses as of 08/09/2023) Immunizations Name Administration Dates Next Due COVID-19 mRNA, LNP-s, No Pre serve, 2-Dose Series ([employer]) 04/23/2021,08/09/2020,07/12/2020 Covid-19, Mrna, Lnp-s, Pf, B ivalent, [...] Miscellaneous Notes * Telephone Encounter - Laney Moreno RN - 08/09/2023 4:07 PM EDT Patient called and patient and made aware of message from provider. Verbalized understanding. Patient will stop Trulicity and omeprazole. Please assist patient with scheduling with general surgery Reason for Call: Advice Contact: Telephone Call Contact Type: Advice Outcome: see above Face to face time spent with Patient (minutes): 0 Total Time including non face to face (minutes): 10 Laney Moreno RN * Telephone Encounter - Kaiser Amanda MD - 08/09/2023 2:25 PM EDT Please have him stop the omeprazole if it is not helping. Also stop trulicity. Gen surg referral placed. Thanks! Kaiser Amanda MD, LUISA Family Physician [facility] Rolo * Telephone Encounter - tK Dunbar OSA - 08/09/2023 10:07 AM EDT Pt saw Dr. Amanda on 07/25 who put him on a medication for his gallbladder. This is not working at all. Pt cannot eat. Please advise on what they should do next at [phone]. documented in this encounter Plan of Treatment Upcoming Encounters Date Type Department Care Team (Late st Contact Info) Description 08/29/2023 3:00 PM EDT Anticoagulation Pharmacy, [address] [place] [id number] Pharmacist1, [facility] [address] [place] [address] 08/31/2023 8:00 AM EDT Office Visit [facility] Surgery [facility] [address] [place] [address] Laney Hogue MD [address] [place] [address] 09/11/2023 8:00 AM EDT Office Visit [facility] Surgery [facility] [address] [place] [address] Laney Hogue MD [address] [place] [address] 01/21/2024 2:00 PM EDT Office Visit [facility] [address] [place] [address] Sakina Jones MD [address] [place] [address] 01/25/2024 3:30 PM EDT Office Visit [facility] Surgery [facility] [address] [place] [address] Laney Hogue MD [address] [place] [address] 02/05/2024 2:30 PM EDT Office Visit Urology [place] Colon [address] [place] [address] [place] [address] Bert Boogie Jr., MD [address] [place] [address] [place] [address] 02/25/2024 9:20 AM EDT Office Visit [facility] [address] [id number] Kaiser Amanda MD [address] [address] Scheduled Procedures Name Priority Associated Diagnoses Date/Ti me COLONOSCOPY FLEXIBLE PROXIMA L DIAGNOSTIC Recall History of colonic polyps Scheduled Referrals Name Type Priority Associated Diagnoses Orde r Schedule SURGERY REFERRAL OP Referral Within 10 da ys (routine) Abdominal pain, RUQ Ordered: 08/09/2023 Health Maintenance Due Date Last Done Comments [...] D LEVEL ONCE IN A LIFETIME-USE SMARTSET# [id number] Completed 07/26/2023, 02/26/2023, 01/23/2023, Additional history exists [...] this encounter Medical Devices Implanted Type Area Online Marketing Specialist Device Identifier Shelf Expiration Date Model / Serial / Lot Cement Bone Simplex Hv & G - [id number] Implanted:Qty: 2 on 09/02/2020 by Gianni Hubbard MD at OR [facility] Right: Hip LUDY : ORTHOPAEDICS 08/11/2021 6195-1-010 / / [id number] Spacer Ring Aclde Distal Lg 14 - [id number] Implanted:Qty: 1 on 09/02/2020 by Gianni Hubbard MD at OR [facility] Right: Hip LUDY : ORTHOPAEDICS 11/25/2024 [id number] / / Accolade C Cs 127 6 37/158 - [id number] Implanted:Qty: 1 on 09/02/2020 by Gianni Hubbard MD at OR [facility] Right: Hip LUDY : ORTHOPAEDICS 05/29/2023 [id number] / / [id number] Hip Cocr Lfit Head V40 28/+4 - [id number] Implanted:Qty: 1 on 09/02/2020 by Gianni Hubbard MD at OR [facility] Right: Hip LUDY : ORTHOPAEDICS 11/15/2024 6260-9-228 / / [id number] Hip Head Bipol Uhr Uni 28x52 - [id number] Implanted:Qty: 1 on 09/02/2020 by Gianni Hubbard MD at OR [facility] Right: Hip LUDY : ORTHOPAEDICS 11/25/2024 UH1-52-28 / / [id number] Lens Intraoc 17.5 - [id number] - [id number] Implanted:Qty: 1 on 03/23/2022 by Rad Morgan MD at OR [facility] Left: Eye BAUSCH & LOMB 10/11/2026 [id number] / [id number] / [id number] Lens Intraoc 18.0 - [id number] - [id number] Implanted:Qty: 1 on 03/30/2022 by Rad Morgan MD at OR [facility] Right: Eye BAUSCH & LOMB 01/11/2027 [id number] / [id number] / [id number] documented as of this encounter Visit Diagnoses Diagnosis Abdominal pain, RUQ- Primary Abdominal pain, right upper quadrant documented in this encounter Advance Directives Latest Code Status on File Code Status Date Activated Date Inactivated Comments Full Code 04/15/2022 10:45 PM 04/18/2022 3:06 PM This order reflects the patients wishes and were consensually agreed upon. Question Answer Comments Discussion of Advance Directives occurred with: Patient Does the patient have a Living Will? No Does the patient have Health Care Power of Finishing Range Supervisor? No Code Status History Code Status Date Activated Date Inactivated Comments No Code 03/30/2022 6:32 AM 03/30/2022 12:51 PM Th is order reflects the patients wishes and were consensually agreed upon. Question Answer Comments Discussion of Advance Directives occurred with: Patient Does the patient have a Living Will? No Does the patient have Health Care Power of Finishing Range Supervisor? No No Code 03/23/2022 9:56 AM 03/23/2022 4:51 PM Thi s order reflects the patients wishes and were consensually agreed upon. Question Answer Comments Discussion of Advance Directives occurred with: Patient Does the patient have a Living Will? No Does the patient have Health Care Power of Finishing Range Supervisor? No Full Code 11/26/2021 11:29 PM 11/30/2021 5:09 PM This order reflects the patients wishes and were consensually agreed upon. Question Answer Comments Discussion of Advance Directives occurred with: Patient/Family Full Code 11/14/2021 6:23 PM 11/17/2021 5:13 PM This or michael reflects the patients wishes and were consensually agreed upon. Question Answer Comments Discussion of Advance Directives occurred with: Patient Care Teams Hat Conditioner Relationship Specialty Start Date End Date Kaiser Amanda MD [address] [place] [address] PCP - General Family Medicine 04/11/21 documented as of this encounter
--- OUTSIDE RECORDS SUMMARY | 2024-01-29 20:50 | External Medical Summary | Summary of Care ---
Author Name Unknown Organization [facility] Address [address] [facility] [address] Phone [phone] Care Team Providers Care Well Service Floorperson Name Role Phone Kaiser Amanda MD Primary Care Provider [phone] Reason for Referral * Evaluate & Treat - Unlimited Visits (Within 10 days (routine)) - Authorized Specialty Diagnoses / Procedures Referred By Fauzia oconnor Referred To Contact General Surgery Diagnoses Abdominal pain, RUQ Kaiser Amanda MD [address] [address] Referral ID Status Reason Start Date Expiration Date Visits Requested Visits Authorized [id number] Authorized Specialty Services Required 08/09/2023 999 999 [...] (Late st Contact Info) Description 08/09/2023 Telephone [facility] Rolo Chacko [address] [phone] [...] mRNA, LNP-s, No Pre serve, 2-Dose Series ([employer]) 04/23/2021,08/09/2020,07/12/2020 Covid-19, Mrna, Lnp-s, Pf, B ivalent, [...] Amanda MD, LUISA Family Physician Mario Seth * Telephone Encounter - Kt Dunbar OSA - 08/09/2023 10:07 AM EDT Pt saw Dr. Amanda on 07/25 who put him on a medication for his gallbladder. This is not working at all. Pt cannot eat. Please advise on what they should do next at [phone]. documented in this encounter Plan of Treatment Upcoming Encounters Date Type Department Care Team (Late st Contact Info) Description 08/29/2023 3:00 PM EDT Anticoagulation Pharmacy, [address] [place] [address] Pharmacist1, [facility] [address] [place] [address] 08/31/2023 8:00 AM EDT Office Visit [facility] Surgery [facility] [address], [place] [address] Laney Hogue MD [address] [place] [address] [place] [address] 09/11/2023 8:00 AM EDT Office Visit [facility] Surgery [facility] [address] [place] [address] Laney Hogue MD [address] [place] [address] 01/21/2024 2:00 PM EDT Office Visit Endocrinology, [place] [address] [place] [address] Sakina Jones MD [address] [place] [address] 01/25/2024 3:30 PM EDT Office Visit [facility] Surgery [facility] [address] [facility] [place] [address] Laney Hogue MD [address] [place] [address] 02/05/2024 2:30 PM EDT Office Visit Urology [place] [facility] [place] [address] [facility] [address] [place] [address] Bert Boogie Jr., MD [address] [place] [address] [place] [address] 02/25/2024 9:20 AM EDT Office Visit [facility] [address] [place] [phone] Kaiser Amanda MD [address] [place] [address] Scheduled Procedures Name Priority Associated Diagnoses Date/Ti [...] exists DXA Scan 01/25/2025 01/25/2023, 0901/2021, 12/10/2018 COLONOSCOPY-EVERY 3 YRS AGES 18-100 03/16/2025 [...] D LEVEL ONCE IN A LIFETIME-USE SMARTSET# [id number] Completed 07/26/2023, 02/26/2023, 01/23/2023, Additional history exists [...] this encounter Medical Devices Implanted Type Area Physical Fitness Trainer Device Identifier Shelf Expiration Date Model / Serial / Lot Cement Bone Simplex Hv & G - [id number] Implanted:Qty: 2 on 09/02/2020 by Gianni Hubbard MD at OR [facility] Right: Hip LUDY : ORTHOPAEDICS 08/11/2021 6195-1-010 / / [id number] Spacer Ring Aclde Distal Lg 14 - [id number] Implanted:Qty: 1 on 09/02/2020 by Gianni Hubbard MD at OR [facility] Right: Hip LUDY : ORTHOPAEDICS 11/25/2024 2469-0033 / / Accolade C Cs 127 6 37/158 - [id number] Implanted:Qty: 1 on 09/02/2020 by Gianni Hubbard MD at OR [facility] Right: Hip LUDY : ORTHOPAEDICS 05/29/2023 [id number] / / [id number] Hip Cocr Lfit Head V40 28/+4 - [id number] Implanted:Qty: 1 on 09/02/2020 by Gianni Hubbard MD at OR [facility] Right: Hip LUDY : ORTHOPAEDICS 11/15/2024 6260-9-228 / / [id number] Hip Head Bipol Uhr Uni 28x52 - [id number] Implanted:Qty: 1 on 09/02/2020 by Gianni Hubbard MD at OR [facility] Right: Hip LUDY : ORTHOPAEDICS 11/25/2024 UH1-52-28 / / [id number] Lens Intraoc 17.5 - [id number] - [id number] Implanted:Qty: 1 on 03/23/2022 by Rad Morgan MD at OR [facility] Left: Eye BAUSCH & LOMB 10/11/2026 [id number] / [id number] / [id number] Lens Intraoc 18.0 - [id number] - [id number] Implanted:Qty: 1 on 03/30/2022 by Rad Morgan MD at OR [facility] Right: Eye BAUSCH & LOMB 01/11/2027 [id number] / [id number] / [id number] documented as of this encounter Visit Diagnoses [...] the patient have Health Care Power of Director Information Security? No Code Status History Code Status Date Activated Date Inactivated Comments No Code 03/30/2022 6:32 AM 03/30/2022 12:51 PM Th is order reflects the patients wishes and were consensually agreed upon. Question Answer Comments Discussion of Advance Directives occurred with: Patient Does the patient have a Living Will? No Does the patient have Health Care Power of Director Information Security? No No Code 03/23/2022 9:56 AM 03/23/2022 4:51 PM Thi s order reflects the patients wishes and were consensually agreed upon. Question Answer Comments Discussion of Advance Directives occurred with: Patient Does the patient have a Living Will? No Does the patient have Health Care Power of Director Information Security? No Full Code 11/26/2021 11:29 PM 11/30/2021 5:09 PM This order reflects the patients wishes and were consensually agreed upon. Question Answer Comments Discussion of Advance Directives occurred with: Patient/Family Full Code 11/14/2021 6:23 PM 11/17/2021 5:13 PM This or michael reflects the patients wishes and were consensually agreed upon. Question Answer Comments Discussion of Advance Directives occurred with: Patient Care Teams Well Service Floorperson Relationship Specialty Start Date End Date Kaiser Amanda MD [address] [address] PCP - General Family Medicine 04/11/21 documented as of this encounter
--- OUTSIDE RECORDS SUMMARY | 2024-01-29 20:50 | External Medical Summary | Summary of Care ---
Author Name Unknown Organization [facility] Address [address] [place] [address] Phone [phone] Care Team Providers Care Tool Setter Apprentice Name Role Phone Kaiser Amanda MD Primary Care Provider [phone] Reason for Visit * Reason Comments Skin Check Pt presents today fo r skin check. He states that, aside from the spots on head that are already schedule, he has no new spots of concern to him Encounter Details Date Type Department Care Team (Late st Contact Info) Description 07/27/2023 3:00 PM EDT Office Visit [facility] [address] [place] [address] Laney Hogue MD [address] [place] [id number] Skin lesion*; Actinic keratosis; History of nonmelanoma skin cancer; History of melanoma in situ; Other skin changes due to chronic exposure to nonionizing radiation Allergies Active Allergy Reactions Criticality Noted Date Comments Cat Dander Itching 07/14/2016 documented as of this encounter (statuses as of 08/05/2023) Medications Medication Sig Dispensed Refills Start Date [...] less than 7.5% ([facility]) TAKE 1 TABLET BY MOUTH DAILY. [...] the morning. 90 Tablet 3 01/23/2023 Active Trulicity 0.75 MG/0.5ML Subcutaneous Solution Pen-injector (Dulaglutide) INJECT 0.75MG (0.5ML) UNDER THE SKIN ONCE A WEEK 6 mL 3 04/08/2023 Active Ketoconazole 2 % External Shampoo (Nizoral) [...] MG Sublingual Tablet Sublingual (Nitrostat)Indicati ons:Stable angina Place 1 Tablet under the tongue every 5 minutes as needed for Pain, Chest. 25 Tablet 0 07/26/2023 Active Omeprazole 20 MG Oral Capsule Delayed Release (PriLOSEC)Indicatio ns:Gastroesophageal reflux disease, unspecified whether esophagitis present Take 1 Capsule by mouth in the morning. 1 hour before the first meal of the day. 30 Capsule 5 07/26/2023 Active documented as of this encounter (statuses as of 08/05/2023) Active Problems Problem Noted Date Diagnosed Date [...] as of this encounter (statuses as of 08/05/2023) Resolved Problems Problem Noted Date Diagnosed Date [...] as of this encounter (statuses as of 08/05/2023) Immunizations Name Administration Dates Next Due COVID-19 mRNA, LNP-s, No Pre serve, 2-Dose Series ([employer]eter) 04/23/2021,08/09/2020,07/12/2020 Covid-19, Mrna, Lnp-s, Pf, B ivalent, 30 Mcg, IM, 12 yrs and above (e[employer]eter) 05/19/2022 Pneumococcal Conjugate Vacc, 13 Valent (Prevnar) [...] Progress Notes * Laney Hogue MD - 07/27/2023 2:50 PM EDT SUBJECTIVE: History of Present Illness: Lewis Alarcon is a 72 year old male seen today for follow up skin check. No lesions of concern. 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 HEME/LYMPH: No new or enlarging lumps or bumps. MEDICA TIONS: Current Outpatient Medications Medication Sig Dispense Refill Money Dashboard Ultra 2 w/Device Kit Testing blood sugars twice daily Dx: E11.9 1 Kit 11 SmartLink Radio NetworksTouch Delica Lancets 30G Check BS once daily E11.9 100 Each 0 Acetaminophen 325 MG Oral Tablet (Tylenol) Take [...] mouth daily at noon. 30 Tablet 3 Warfarin Sodium 5 MG Oral Tablet (Coumadin) Take 1-2 Tablets (5-10 mg) by mouth in the morning. Or as directed by anticoagulation clinic. 180 Tablet 3 Atorvastatin Calcium 40 MG Oral Tablet (Lipitor) Take 1 Tablet by mouth in the morning. 90 Tablet 3 Mupirocin 2 % External Ointment (Bactroban) Apply topically to affected area 3 times a day. Apply to biopsy site on left shoulder twice daily as needed 22 g 1 Mupirocin 2 % External Ointment (Bactroban) Apply to biopsy site on left shoulder twice daily 22 g 1 Triamcinolone Acetonide 0.1 % [...] mouth in the morning. 90 Capsule 3 Amitriptyline HCl 25 MG Oral Tablet (Elavil) Take 1 Tablet by mouth in the morning and 1 Tablet before bedtime. 60 Tablet 6 Hydrocortisone 2.5 % External Cream Apply to eyebrows twice daily for 3-5 days at a time as needed for flares 60 g 2 Ketoconazole 2 % External Cream Apply to eyebrows twice daily 30 g 1 Finasteride 5 MG Oral Tablet (Proscar) Take 1 Tablet by mouth in the morning. 90 Tablet 3 Trulicity 0.75 MG/0.5ML Subcutaneous Solution Pen-injector (Dulaglutide) INJECT 0.75MG (0.5ML) UNDER THE SKIN ONCE A WEEK 6 mL 3 Ketoconazole 2 % External Shampoo (Nizoral) APPLY TO SCALP AND EYEBROWS DAILY- LATHER, WAIT 5 MINUTES, THEN RINSE 120 mL 0 SmartLink Radio NetworksTouch Verio In Vitro Strip (Glucose Blood) USE [...] meal of the day. 30 Capsule 5 No current facility-administered medications for this visit. ALLERG IES: Cat dander OBJECTIVE: GEN: Healthy, alert, no distress, appears oriented, pleasant, and cooperative. Lymph Nodes: Lymph nodes in head, neck, supraclavicular, axillary, and inguinal areas show no lymphadenopathy. SKIN: Detailed exam of hair, face including lids and lips, conjunctivae, oral mucosa, neck, back, chest, abdomen, buttocks, right and left upper extremities, right and left lower extremities including the nails and digits completed and are normal except: A. Left upper arm: ~1 cm pink plaque B. Left anterior lower leg: ~8 mm pink thin papule C. Left posterior shoulder:~ 8 mm pink scaly papule D. There is a well-healed primary site on left shoulder without clinical evidence of disease E. [employer] scars and scaly thin papules on scalp, face, and left neck ASSESS MENT/PLAN: 1. Lesion A. Left upper arm. r/o NMSC Shave of the lesion noted above to remove and confirm diagnosis. The procedure, risks, benefits, alternatives and expected outcomes were discussed with the patient and consent was obtained. Time out called. Patient identified, procedure verified, site identified and verified. Patient and staff present in agreement. Area prepped with alcohol and anesthetized using 0.5% lidocaine with epinephrine at 1:200,000 concentration. Shave of lesion performed. 20% AlCl and bandaging applied. Specimen sent to pathology. Patient instructed in routine post-op care. The lesion was curetted for cure. Size of lesion: 1 cm Size of wound after curettage: 1.6 cm 2. Lesion B. Left anterior lower leg. r/o NMSC Shave of the lesion noted above to remove and confirm diagnosis. The procedure, risks, benefits, alternatives and expected outcomes were discussed with the patient and consent was obtained. Time out called. Patient identified, procedure verified, site identified and verified. Patient and staff present in agreement. Area prepped with alcohol and anesthetized using 0.5% lidocaine with epinephrine at 1:200,000 concentration. Shave of lesion performed. 20% AlCl and bandaging applied. Specimen sent to pathology. Patient instructed in routine post-op care. The lesion was curetted for cure. Size of lesion: 8 mm Size of wound after curettage: 1.4 cm 3. Lesion C. Left posterior shoulder. r/o NMSC Shave of the lesion noted above to remove and confirm diagnosis. The procedure, risks, benefits, alternatives and expected outcomes were discussed with the patient and consent was obtained. Time out called. Patient identified, procedure verified, site identified and verified. Patient and staff present in agreement. Area prepped with alcohol and anesthetized using 0.5% lidocaine with epinephrine at 1:200,000 concentration. Shave of lesion performed. 20% AlCl and bandaging applied. Specimen sent to pathology. Patient instructed in routine post-op care. The lesion was curetted for cure. Size of lesion: 8 mm Size of wound after curettage: 1.4 cm 4. Biopsy proven actinic keratoses on left central frontal scalp (posterior), left parietal scalp, left superior forehead, and left neck - A total of 4 lesion(s) were treated with cryotherapy. - The patient was counseled on the premalignant nature of these lesions, and they were treated withcryotherapy today which the patient is agreeable to. The risks, benefits, indications, alternatives, and complications were discussed, and consent was obtained. 5. History of melanoma in situ and nonmelanoma skin cancer. Heliodermatosis/chronic sun damage not at treatment goal/Diffuse actinic damage/other skin changes due to chronic exposure to nonionizing radiation. - Full skin check performed. No evidence of recurrence at previously treated sites of melanoma in situ and nonmelanoma skin cancer. -History was obtained regarding new or changing moles. Patient counseled on self-examination for new or changing moles. - Recommended sunscreen (over the counter broad-spectrum sun protection factor 30+ sunscreen daily)/photoprotection. Informational handout reviewing sunscreen/photoprotection and self monitoring for melanoma was provided to patient at today's visit. - return in 6 months or sooner for any new or changing lesions of concern. Follow-up: 6 months The patient was encouraged to contact me with any further questions or concerns. Laney Hogue MD 07/27/2023 documented in this encounter Miscellaneous Notes * Result Encounter Note - Laney Hogue MD - 07/31/2023 5:24 PM EDT Spoke with patient regarding biopsy results as noted below: A. Skin, left upper arm, shave: Superficial and nodular basal cell carcinoma. B. Skin, left anterior lower leg, shave: Superficial basal cell carcinoma. C. Skin, left posterior shoulder, shave: Basal cell carcinoma with infiltrative features; transected. A- Explained the malignant nature of this lesion and that no further intervention is needed as it was treated with curettage at the time of biopsy. B- Explained the malignant nature of this lesion and that no further intervention is needed as it was treated with curettage at the time of biopsy. C- Explained the malignant nature of this lesion and that no further intervention is needed at thistime as it was treated with curettage at the time of biopsy. Given infiltrative features, will monitor for recurrence and treat with Mohs surgery (or excision) if this lesion recurs. Laney Hogue MD 07/31/2023 5:23 PM documented in this encounter Plan of Treatment Upcoming Encounters Date Type Department Care Team (Late st Contact Info) Description 08/29/2023 3:00 PM EDT [facility] [place] [address] [place] [address] [address] [place] [phone] Pharmacist1, [facility] [address] [id number] 08/31/2023 8:00 AM EDT Office Visit [facility] [address] [place] [address] Laney Hogue MD [address] [place] [address] 09/11/2023 8:00 AM EDT Office Visit [facility] [address] [place] [address] Laney Hogue MD [address] [place] [address] 01/21/2024 2:00 PM EDT Office Visit Endocrinology, [place] [address] [place] [address] Sakina Jones MD [address] [place] [address] 02/05/2024 2:30 PM EDT Office Visit Urology [facility] [address] [facility] [address] [address] Bert Boogie Jr., MD [address] [place] [address] [place] [address] 02/25/2024 9:20 AM EDT Office Visit [facility] [address] [phone] Kaiser Amanda MD [address] [id number] Scheduled Procedures Name Priority Associated Diagnoses Date/Ti [...] D LEVEL ONCE IN A LIFETIME-USE SMARTSET# [id number] Completed 07/26/2023, 02/26/2023, 01/23/2023, Additional history exists [...] this encounter Medical Devices Implanted Type Area Senior Wind Energy Consultant Device Identifier Shelf Expiration Date Model / Serial / Lot Cement Bone Simplex Hv & G - [id number] Implanted:Qty: 2 on 09/02/2020 by Gianni Hubbard MD at OR [facility] Right: Hip LUDY : ORTHOPAED[employer] 08/11/2021 [id number] / / [id number] Spacer Ring Aclde Distal Lg 14 - [id number] Implanted:Qty: 1 on 09/02/2020 by Gianni Hubbard MD at OR [facility] Right: Hip LUDY : ORTHOPAEDICS 11/25/2024 [id number] / / Accolade C Cs 127 6 37/158 - [id number] Implanted:Qty: 1 on 09/02/2020 by Gianni Hubbard MD at OR [facility] Right: Hip LUDY : ORTHOPAEDICS 05/29/2023 [id number] / / [id number] Hip Cocr Lfit Head V40 28/+4 - [id number] Implanted:Qty: 1 on 09/02/2020 by Gianni Hubbard MD at OR [facility] Right: Hip LUDY : ORTHOPAEDICS 11/15/2024 [id number] / / [id number] Hip Head Bipol Uhr Uni 28x52 - [id number] Implanted:Qty: 1 on 09/02/2020 by Gianni Hubbard MD at OR [facility] Right: Hip LUDY : ORTHOPAEDICS 11/25/2024 [id number] / / [id number] Lens Intraoc 17.5 - [id number] - [id number] Implanted:Qty: 1 on 03/23/2022 by Rad Morgan MD at OR [facility] Left: Eye [employer]OM[employer] 10/11/2026 [id number] / [id number] / [id number] Lens Intraoc 18.0 - [id number] - [id number] Implanted:Qty: 1 on 03/30/2022 by Rad Morgan MD at OR [facility] Right: Eye [employer]OMB 01/11/2027 [id number] / [id number] / [id number] documented as of this encounter Procedures Procedure Name Priority Date/Time Associated Diagnosis Comments SURGICAL PATHOLOGY Routine 07/27/2023 3: 41 PM EDT Skin lesion documented in this encounter Results * SURGICAL PATHOLOGY (07/27/2023 3:41 PM EDT) Final Diagnosis A. Skin, left upper arm, shave: Superficial and nodular basal cell carcinoma. B. Skin, left anterior lower leg, shave: Superficial basal cell carcinoma. C. Skin, left posterior shoulder, shave: Basal cell carcinoma with infiltrative features; transected. 07/31/2023 1:15 PM EDT [facility] Clinical History See Order Comments 07/31/2023 1:15 PM EDT [facility] Order Comments A. Left upper arm: r/o NMSC. Shave biopsy and curettage B. Left anterior lower leg: r/o NMSC. Shave biopsy and curettage C. Left posterior shoulder: r/o NMSC. Shave biopsy and curettage 07/31/2023 1:15 PM EDT [facility] Gross Description A. Skin. Received in formalin with a container labeled with "Lewis Alarcon", "[id number]", "1950" and " left upper arm". Received is a 1.3 x 1.3 cm skin shave. The skin surface is a white and cardona pearly plaque. The underlying tissue is inked. The specimen is serially sectioned into 5 pieces and submitted in cassette A1-A2. Gross By: BEV B. Skin. Received in formalin with a container labeled with "Lewis Alarcon", "[id number]", "1950" and " left anterior lower leg". Received is a 0.9 x 0.7 cm skin shave. The skin surface is a cardona hair-bearing dull plaque. The underlying tissue is inked. The specimen is trisected and submitted in cassette B1. Gross By: BEV Reyes Skin. Received in formalin with a container labeled with "Lewis Alarcon", "[id number]", "1950" and " left posterior shoulder". Received is a 0.8 x 0.5 cm skin shave. The skin surface is a white firm scaly papule. The underlying tissue is inked. The specimen is trisected and submitted in cassette C1. Gross By: BEV 07/31/2023 1:15 PM EDT [facility] Sign Out Location Pathologist sign out performed at [facility] ([facility] [address] [place] [id number]. 07/31/2023 1:15 PM EDT [facility] Photographic images and diagrams represent marley findings in this case; they are not intended to replace a complete review of the final diagnostic report. The following statement applies to Flow Cytometry, Histology, In situ Hybridization Assays and Molecular Genetics. This test was developed and performed at [facility] and its performance characteristics determined by [facility] [employer]. It has not been cleared or approved by the U.S. Food and Drug Administration. The FDA has determined that such clearance or approval is not necessary. This test is used for clinical purposes. It should not be regarded as investigational or for research. Special stains, including histochemical stains, and studies using immunologic and FRANKLIN methodology (where applicable) are performed with appropriate positive and negative control reactions. 07/31/2023 1:15 PM EDT [facility] Tissue Skin structure / Unknown 07/27/2023 3:41 PM EDT 07/27/2023 3:41 PM EDT Comment:A. Left upper arm: r /o NMSC. Shave biopsy and curettage B. Left anterior lower leg: r/o NMSC. Shave biopsy and curettage C. Left posterior shoulder: r/o NMSC. Shave biopsy and curettage Specimen from wound (specimen) Skin structure / Unknown 07/27/2023 3:41 PM EDT 07/27/2023 3:41 PM EDT Comment:A. Left upper arm: r /o NMSC. Shave biopsy and curettage B. Left anterior lower leg: r/o NMSC. Shave biopsy and curettage C. Left posterior shoulder: r/o NMSC. Shave biopsy and curettage Specimen from wound (specimen) Skin structure / Unknown 07/27/2023 3:41 PM EDT 07/27/2023 3:41 PM EDT Comment:A. Left upper arm: r /o NMSC. Shave biopsy and curettage B. Left anterior lower leg: r/o NMSC. Shave biopsy and curettage C. Left posterior shoulder: r/o NMSC. Shave biopsy and curettage Laney Hogue MD LAB PATHOLOGY [facility] [address] [place] [address] documented in this encounter Visit Diagnoses Diagnosis Skin lesion- Primary Unspecified disorder of skin and subcutaneous tissue Actinic keratosis History of nonmelanoma skin cancer Personal history of other malignant neoplasm of skin History of melanoma in situ Personal history of malignant melanoma of skin Other skin changes due to chronic exposure to nonionizing radiation documented in this encounter Advance Directives Latest Code Status on File Code Status Date Activated Date Inactivated Comments Full Code 04/15/2022 10:45 PM 04/18/2022 3:06 PM This order reflects the patients wishes and were consensually agreed upon. Question Answer Comments Discussion of Advance Directives occurred with: Patient Does the patient have a Living Will? No Does the patient have Health Care Power of Guidance Director? No Code Status History Code Status Date Activated Date Inactivated Comments No Code 03/30/2022 6:32 AM 03/30/2022 12:51 PM Th is order reflects the patients wishes and were consensually agreed upon. Question Answer Comments Discussion of Advance Directives occurred with: Patient Does the patient have a Living Will? No Does the patient have Health Care Power of Guidance Director? No No Code 03/23/2022 9:56 AM 03/23/2022 4:51 PM Thi s order reflects the patients wishes and were consensually agreed upon. Question Answer Comments Discussion of Advance Directives occurred with: Patient Does the patient have a Living Will? No Does the patient have Health Care Power of Guidance Director? No Full Code 11/26/2021 11:29 PM 11/30/2021 5:09 PM This order reflects the patients wishes and were consensually agreed upon. Question Answer Comments Discussion of Advance Directives occurred with: Patient/Family Full Code 11/14/2021 6:23 PM 11/17/2021 5:13 PM This or michael reflects the patients wishes and were consensually agreed upon. Question Answer Comments Discussion of Advance Directives occurred with: Patient Care Teams Tool Setter Apprentice Relationship Specialty Start Date End Date Kaiser Amanda MD [address] [address] PCP - General Family Medicine 04/11/21 documented as of this encounter
--- OUTSIDE RECORDS SUMMARY | 2024-01-29 20:50 | External Medical Summary | Summary of Care ---
Author Name Unknown Organization [facility] Address [address] [place] [address] Phone [phone] Care Team Providers Care Underground Supervisor Name Role Phone Kaiser Amanda MD Primary Care Provider [phone] Reason for Visit * Reason Comments NEW PATIENT * Evaluate & Treat - Unlimited Visits (Within 10 days (routine)) - Authorized Specialty Diagnoses / Procedures Referred By Fauzia oconnor Referred To Contact General Surgery Diagnoses Abdominal pain, RUQ Kaiser Amanda MD [address] [facility] [place] [address] Referral ID Status Reason Start Date Expiration Date Visits Requested Visits Authorized [id number] Authorized Specialty Services Required 08/09/[phone] Encounter Details Date Type Department Care Team (Latest Contact Info) Description 08/10/2023 11:15 AM EDT Office Visit General Surgery Rolo Colon [address] [place] [phone] Aydee Alaniz DO [address] [place] [address] [place] [phone] Diarrhea, unspecified type*; Groin lump; Symptomatic cholelithiasis Allergies Active Allergy Reactions Criticality Noted Date Comments Cat Dander Itching 07/14/2016 documented as of this encounter (statuses as of 08/13/2023) Medications Medication Sig Dispensed Refills Start Date End Date Status Tippmann Sports Ultra 2 w/Device KitIndications:Type 2 diabetes mellitus with hemoglobin A1c goal of less than 7.5% ([facility]) Testing blood sugars twice daily Dx: E11.9 1 Kit 11 06/06/2021 Active MesMateriauxuch Delica Lancets 30GIndications:Type 2 diabetes mellitus with [...] hemoglobin A1c goal of less than 7.5% ([facility]) TAKE 1 TABLET BY MOUTH DAILY. TAKE 30 MINUTES BEFORE A MEAL 90 Tablet 3 12/26/2022 Active DULoxetine HCl 60 MG Oral Capsule Delayed Release Particles (Cymbalta)Indicatio ns:Depression with anxiety Take 1 Capsule by mouth in the morning. 90 Capsule 3 12/26/2022 Active Amitriptyline HCl 25 MG Oral Tablet (Elavil)Indications :Depression with anxiety,Type 2 diabetes mellitus with polyneuropathy ([facility]) Take 1 Tablet by mouth [...] hemoglobin A1c goal of less than 7.5% ([facility]) USE STRIP TO CHECK GLUCOSE [...] as of this encounter (statuses as of 08/13/2023) Active Problems Problem Noted Date Diagnosed Date [...] as of this encounter (statuses as of 08/13/2023) Resolved Problems Problem Noted Date Diagnosed Date [...] as of this encounter (statuses as of 08/13/2023) Immunizations Name Administration Dates Next Due COVID-19 mRNA, LNP-s, No Pre serve, 2-Dose Series (gAuto) 04/23/2021,08/09/2020,07/12/2020 Covid-19, Mrna, Lnp-s, Pf, B ivalent, [...] Sign Reading Time Taken Comments Blood Pressure 119/90 08/10/2023 11:11 AM EDT Pulse 109 08/10/2023 11:11 AM EDT Temperature 36.6 C (97.8 F) 08/10/2023 11:11 AM E DT Respiratory Rate - - Oxygen Saturation - - Inhaled Oxygen Concentration - - Weight 78 kg (172 lb) 08/10/2023 11:11 AM EDT Height - - Body Mass Index 25.4 07/26/2023 10:01 AM EDT documented in this [...] as of this encounter Progress Notes * Kamille Martel, Medical Student - 08/10/2023 11:49 AM EDT Unless the attending has added an attestation supporting use of this note to document a billable service, the signature of the Licensed Professional on this note only acknowledges the presence of thestudent's note within the patient record and the Licensed Professional's note should be referred tofor clinical information and recommendations. HISTORY AND PHYSICAL EXAMINATION - General Surgery Name: Lewis Alarcon Date: 08/10/2023 Time: 11:49 AM Subjective PRESENTING PROBLEM: RUQ abdominal pain and post-prandial diarrhea HISTORY OF PRESENT ILLNESS: 72 year old male presents with post-prandial RUQ pain and diarrhea. He states that he has always had a colicky pain in the RUQ after eating; however, it has seemed to get worse over the past few weeks. He has an US done on 08/02/23 that showed gallstone without wall thickening. He says it is worsened by fried foods, and that he has reflux from eating red sauce. The patient also explains that he has been having sudden-onset diarrhea about 30 minutes after eating. Him and his say that it happens with all foods, and they have been unable to determine a dietary cause. His diarrhea has been causing him to not want to eat. He also has noticed a lump in his right inguinal area, where he had previously had a hernia repair. He explains he is not able to push the mass in, and it only causes hissome discomfort every once in awhile. PROBLEM LIST: Patient Active Problem List Diagnosis Code Type 2 diabetes mellitus with polyneuropathy ([facility]) E11.42 BPH without obstruction/lower urinary tract symptoms N40.0 Depression with anxiety F41.8 Type 2 diabetes mellitus with hemoglobin A1c goal of less than 7.5% ([facility]) E11.9 History of Hodgkin's disease Z85.71 Hyperlipidemia with target LDL less than 100 E78.5 Essential hypertension with goal blood pressure less than 130/80 I10 History of DVT (deep vein thrombosis) Z86.718 History of pulmonary embolism Z86.711 Ambulatory dysfunction R26.2 Generalized weakness R53.1 Hypercalcemia E83.52 Anticoagulated on warfarin Z79.01 Hyperparathyroidism ([facility]CC) E21.3 Unspecified injury at unspecified level of cervical spinal cord, sequela ([facility]) S14.109S S/P right hip fracture Z87.81 Fall W19.XXXA Orthostatic hypotension I95.1 Osteoporosis M81.0 Syncope and collapse R55 Clavicle fracture S42.009A Elevated lactic acid level R79.89 Paraplegia (HCC) G82.20 Dysautonomia (HCC) G90.1 PAST MEDICAL HISTORY: Past Medical History: Diagnosis [...] performed by John Gordillo MD at OR [facility] INCISIONAL HERNIA REPAIR, LAP, REDUCIBLE left inguinal and umbelical INFORMATION 05/14/1988 lymph node removal KNEE ARTHROSCOPY/SURGERY PARTIAL HIP REPLACEMENT & PROSTH Right 09/02/2020 HEMIARTHROPLASTY HIP performed by Gianni Hubbard MD at OR [facility] REMOVE CATARACT, INSERT LENS PROSTH Left 03/23/2022 LEFT EXTRACAPSULAR CATARACT REMOVAL WITH INTRAOCULAR LENS performed by Rad Morgan MD at OR [facility] REMOVE CATARACT, INSERT LENS PROSTH Right 03/30/2022 RIGHT EXTRACAPSULAR CATARACT REMOVAL WITH INTRAOCULAR LENS performed by Rad Morgan MD at OR [facility] REMOVE TONSILS & ADENOIDS, AGE 12+ UMBIL HERNIA REPAIR (INCARCERATED) AGE 5+YR FAMILY HISTORY: Family History Problem Relation Age of Onset Other (Aneurysm) Father Other (Lymphoma) Mother SOCIAL HISTORY: Social History Tobacco Use Smoking status: Never Smokeless tobacco: Never Vaping Use Vaping Use: Never used Substance Use Topics Alcohol use: Yes Comment: rarely Drug use: No CURRENT MEDICATIONS: Note that discontinued continue to display for 24 hours. Ordered medications to be given in the future also display. Current Outpatient Medications Medication Sig Dispense Refill Tippmann Sports Ultra 2 w/Device Kit Testing blood sugars twice daily Dx: E11.9 1 Kit 11 Family PetTouch Delica Lancets 30G Check BS once daily [...] 5 MINUTES, THEN RINSE 120 mL 0 OneTouch Verio In Vitro Strip (Glucose Blood) USE STRIP TO CHECK GLUCOSE ONCE DAILY 100 Strip 3 metFORMIN HCl 1000 MG Oral Tablet (Glucophage) TAKE 1 TABLET BY MOUTH TWICE A DAY WITH BREAKFAST AND DINNER 180 Tablet 1 Nitroglycerin 0.4 MG Sublingual Tablet Sublingual (Nitrostat) Place 1 Tablet under the tongue every5 minutes as needed for Pain, Chest. (Patient not taking: Reported on 08/10/2023) 25 Tablet 0 Omeprazole 20 MG Oral Capsule Delayed Release (PriLOSEC) Take 1 Capsule by mouth in the morning. 1 hour before the first meal of the day. (Patient not taking: Reported on 08/10/2023) 30 Capsule 5 No current facility-administered medications for this visit. ALLERGIES: Cat dander ROS: Review of Systems Constitutional: Positive for appetite change. Negative for chills, fatigue and fever. Respiratory: Negative for chest tightness, shortness of breath and wheezing. Cardiovascular: Negative for chest pain and palpitations. Gastrointestinal: Positive for diarrhea. Negative for abdominal distention, anal bleeding, blood instool, nausea and vomiting. Genitourinary: Pain in RUQ, lower abdomen Right inguinal tenderness/mass Musculoskeletal: Positive for gait problem. Skin: Negative for wound. All other systems reviewed and negative Objective PHYSICAL EXAMINATION: Most Recent Vital Signs: BP 119/90 | Pulse 109 | Temp 36.6 C (97.8 F) (Temporal Artery) | Wt 78 kg (172 lb) | BMI 25.40 kg/m | BSA 1.95 m Physical Exam Constitutional: Appearance: Normal appearance. Eyes: Pupils: Pupils are equal, round, and reactive to light. Cardiovascular: Rate and Rhythm: Normal rate and regular rhythm. Pulses: Normal pulses. Pulmonary: Effort: Pulmonary effort is normal. Breath sounds: Normal breath sounds. Abdominal: Palpations: Abdomen is soft. Comments: No tenderness to palpation in all quadrants Non-reducible, non-tender mass noted in the right inguinal region at area of old hernia repair. Skin: General: Skin is warm and dry. Neurological: Mental Status: He is alert and oriented to person, place, and time. IMAGING: Abdominal US (08/02/23) -Cholelithiasis without evidence of cholecystitis. IMPRESSION and PLAN: 72 year old male presenting with post-prandial RUQ pain, diarrhea, and mass on right inguinal region. -Dr. Alaniz did advise that a cholecystectomy could possibly make the diarrhea worse. Since thisis not his primary complaint, and it is the diarrhea that is causing him not to eat, it may not be his best treatment option. -Fiber supplements (metamucil) was recommended for his diarrhea -Suggested to have PCP make a GI referral -US scheduled for right inguinal mass. PRIMARY CARE PHYSICIAN: MD Kamille Inman, MS3 [facility] 08/10/23 I attest that I have reviewed the student note and that the components of the history, the physicalexam, and the assessment and plan documented were performed in my presence with the student where Iverified the documentation and performed (or re-performed) the exam and medical decision making. Patient presents with multiple complains. He has a longstanding history of mild RUQ pain after eating, states worse after acidic foods such as tomato sauce. He tells me his larger complaint is postprandial diarrhea, and this is what prevents him from eating. With his medical comorbidities and anticoagulation, he is at an increased surgical risk. Cholecystectomy would likely worsen his main complaint of diarrhea, and as he is not as bothered by the RUQ pain, I do not feel the benefits of surgeryoutweigh the risks. He also has a right groin lump in the setting of previous right inguinal hernia repair. He has no recurrent hernia. With his history of lymphoma I will obtain an US to further evaluate. Recommend considering GI evaluation for diarrhea. F/u prn Aydee Alaniz DO documented in this encounter Nursing Notes * Suzanne Chaudhari LPN - 08/10/2023 11:09 AM EDT Chief Complaint Patient presents with NEW PATIENT Pt accompanied today with , Ciara. Pt referred by PCP for RUQ pain. Per patient, RUQ pain and diarrhea after eating x months. Increasing symptoms. Also patient has a bulge and discomfort to the RIGHT groin documented in this encounter Plan of Treatment Upcoming Encounters Date Type Department Care Team (Late st Contact Info) Description 08/13/2023 3:45 PM EDT Appointment Radiology, [address] [address] 08/29/2023 3:00 PM EDT Anticoagulation Pharmacy, [address] [address] Pharmacist1, [facility] [address] [address] 08/31/2023 8:00 AM EDT Office Visit [facility] Surgery [address] [address] Laney Hogue MD [address] [place] [address] 09/11/2023 8:00 AM EDT Office Visit [facility] Surgery [facility] [address] [place] [address] Laney Hogue MD [address] [place] [address] 01/21/2024 2:00 PM EDT Office Visit Endocrinology, [place] [address] [facility] [place] [address] Sakina Jones MD [address] [place] [address] 01/25/2024 3:30 PM EDT Office Visit [facility] Surgery [facility] [address] [place] [address] Laney Hogue MD [address] [place] [address] 02/05/2024 2:30 PM EDT Office Visit Urology Michael Colonwn [address] [place], [place] [id number] Bert Boogie Jr., MD [address] [place] [place] [address] 02/25/2024 9:20 AM EDT Office Visit [facility] [place] [address] [facility] [place] [phone] Kaiser Amanda MD [address] [facility] [place] [address] Scheduled Orders Name Type Priority Associated Diagnoses Orde r Schedule US EXTREMITY, NON-VASCULAR LIMITED Medical Imaging Routine Groin lump Expected: 08/11/2023, Expires: 09/09/2024 Scheduled Procedures Name Priority Associated Diagnoses Date/Ti [...] D LEVEL ONCE IN A LIFETIME-USE SMARTSET# 33234 Completed 07/26/2023, 02/26/2023, 01/23/2023, Additional history exists [...] this encounter Medical Devices Implanted Type Area Infrastructure Architect Device Identifier Shelf Expiration Date Model / Serial / Lot Cement Bone Simplex Hv & G - [id number] Implanted:Qty: 2 on 09/02/2020 by Gianni Hubbard MD at OR [facility] Right: Hip LUDY : ORTHOPAEDICS 08/11/2021 6195-1-010 / / [id number] Spacer Ring Aclde Distal Lg 14 - [id number] Implanted:Qty: 1 on 09/02/2020 by Gianni Hubbard MD at OR [facility] Right: Hip LUDY : ORTHOPAEDICS 11/25/2024 [id number] / / Accolade C Cs 127 6 37/158 - [id number] Implanted:Qty: 1 on 09/02/2020 by Gianni Hubbard MD at OR [facility] Right: Hip LUDY : ORTHOPAEDICS 05/29/2023 [id number] / / [id number] Hip Cocr Lfit Head V40 28/+4 - [id number] Implanted:Qty: 1 on 09/02/2020 by Gianni Hubbard MD at OR [facility] Right: Hip LUDY : ORTHOPAEDICS 11/15/2024 6260-9-228 / / [id number] Hip Head Bipol Uhr Uni 28x52 - [id number] Implanted:Qty: 1 on 09/02/2020 by Gianni Hubbard MD at OR [facility] Right: Hip LUDY : ORTHOPAEDICS 11/25/2024 UH1-52-28 / / [id number] Lens Intraoc 17.5 - [id number] - [id number] Implanted:Qty: 1 on 03/23/2022 by Rad Morgan MD at OR [facility] Left: Eye BAUSCH & LOMB 10/11/2026 [id number] / [id number] / [id number] Lens Intraoc 18.0 - [id number] - [id number] Implanted:Qty: 1 on 03/30/2022 by Rad Morgan MD at OR [facility] Right: Eye BAUSCH & LOMB 01/11/2027 [id number] / [id number] / [id number] documented as of this encounter Visit Diagnoses Diagnosis Diarrhea, unspecified type- Primary Groin lump Abdominal or pelvic swelling, mass or lump, unspecified site Symptomatic cholelithiasis Calculus of gallbladder without mention of cholecystitis or obstruction documented in this encounter Advance Directives Latest Code Status on File Code Status Date Activated Date Inactivated Comments Full Code 04/15/2022 10:45 PM 04/18/2022 3:06 PM This order reflects the patients wishes and were consensually agreed upon. Question Answer Comments Discussion of Advance Directives occurred with: Patient Does the patient have a Living Will? No Does the patient have Health Care Power of Clasp Machine Operator? No Code Status History Code Status Date Activated Date Inactivated Comments No Code 03/30/2022 6:32 AM 03/30/2022 12:51 PM Th is order reflects the patients wishes and were consensually agreed upon. Question Answer Comments Discussion of Advance Directives occurred with: Patient Does the patient have a Living Will? No Does the patient have Health Care Power of Clasp Machine Operator? No No Code 03/23/2022 9:56 AM 03/23/2022 4:51 PM Thi s order reflects the patients wishes and were consensually agreed upon. Question Answer Comments Discussion of Advance Directives occurred with: Patient Does the patient have a Living Will? No Does the patient have Health Care Power of Clasp Machine Operator? No Full Code 11/26/2021 11:29 PM 11/30/2021 5:09 PM This order reflects the patients wishes and were consensually agreed upon. Question Answer Comments Discussion of Advance Directives occurred with: Patient/Family Full Code 11/14/2021 6:23 PM 11/17/2021 5:13 PM This or michael reflects the patients wishes and were consensually agreed upon. Question Answer Comments Discussion of Advance Directives occurred with: Patient Care Teams Underground Supervisor Relationship Specialty Start Date End Date Kaiser Amanda MD [address] [place] [address] PCP - General Family Medicine 04/11/21 documented as of this encounter"
--- OUTSIDE RECORDS SUMMARY | 2024-01-29 20:50 | External Medical Summary | Summary of Care ---
Author Name Unknown Organization [facility] Address [address] [place] [address] Phone [phone] Care Team Providers Care Combustion Engineer Name Role Phone Kaiser Amanda MD Primary Care Provider [phone] Reason for Visit * Reason Onset Date Comments Scheduling 08/07/2023 Encounter Details Date Type Department Care Team (Late st Contact Info) Description 08/07/2023 Telephone [facility] Surgery [facility] [address] [place] [address] Laney Hogue MD [address] [place] [address] Scheduling Allergies Active Allergy Reactions Criticality Noted Date Comments Cat Dander Itching 07/14/2016 documented as of this encounter (statuses as of 08/07/2023) Medications Medication Sig Dispensed Refills Start Date [...] anxiety,Type 2 diabetes mellitus with polyneuropathy ([facility]) Take 1 Tablet by [...] ype 2 diabetes mellitus with polyneuropathy ([facility] [...] Sublingual Tablet Sublingual (Nitrostat)Indicati ons:Stable angina ([facility]) Place [...] as of this encounter (statuses as of 08/07/2023) Active Problems Problem Noted Date Diagnosed Date [...] as of this encounter (statuses as of 08/07/2023) Resolved Problems Problem Noted Date Diagnosed Date [...] as of this encounter (statuses as of 08/07/2023) Immunizations Name Administration Dates Next Due COVID-19 [...] encounter Miscellaneous Notes * Telephone Encounter - nAn Dhillon OSA - 08/07/2023 2:40 PM EDT called back and confirmed 6mo appt for Sept with Dr Hogue * Telephone Encounter - Ann Dhillon OSA - 08/07/2023 1:27 PM EDT 08/07/23 LMM of a scheduled appt for a 6mo ret with DR Hogue for 01/25/24Sun at 3;30pm asked patient to call [phone] to confirm * Telephone Encounter - Ann Dhillon OSA - 08/07/2023 7:50 AM EDT Please schedule pt for a skin check in 6 months on a Sunday at 3:30 pm Laney Wells documented in this encounter Plan of Treatment Upcoming Encounters Date Type Department Care Team (Late st Contact Info) Description 08/29/2023 3:00 PM EDT Anticoagulation Pharmacy, [address] [address] Pharmacist1, [facility] [address] [address] 08/31/2023 8:00 AM EDT Office Visit [facility] Surgery [address] [address] Laney Hogue MD [address] [place] [address] 09/11/2023 8:00 AM EDT Office Visit [facility] Surgery [address] [address] Laney Hogue MD [address] [place] [address] 01/21/2024 2:00 PM EDT Office Visit Endocrinology, [place] [address] [place] [address] Sakina Jones MD [address] [place] [address] 01/25/2024 3:30 PM EDT Office Visit [facility] Surgery [facility] [address] [place] [address] Laney Hogue MD [address] [place] [address] 02/05/2024 2:30 PM EDT Office Visit Urology [place] RinaldiRolo [address] [place] [address] [place] [address] Bert Boogie Jr., MD [address] [place] [address] [place] [address] 02/25/2024 9:20 AM EDT Office Visit [facility] [address] [phone] Kaiser Amanda MD [address] [place] [address] Scheduled Procedures Name Priority Associated Diagnoses Date/Ti [...] D LEVEL ONCE IN A LIFETIME-USE SMARTSET# [id number] Completed 07/26/2023, 02/26/2023, 01/23/2023, Additional history exists [...] this encounter Medical Devices Implanted Type Area Sequins Stringer Device Identifier Shelf Expiration Date Model / Serial / Lot Cement Bone Simplex Hv & G - [id number] Implanted:Qty: 2 on 09/02/2020 by Gianni Hubbard MD at OR [facility] Right: Hip LUDY : ORTHOPAEDICS 08/11/2021 6195-1-010 / / [id number] Spacer Ring Aclde Distal Lg 14 - [id number] Implanted:Qty: 1 on 09/02/2020 by Gianni Hubbard MD at OR [facility] Right: Hip LUDY : ORTHOPAEDICS 11/25/2024 5835-2272 / / Accolade C Cs 127 6 37/158 - [id number] Implanted:Qty: 1 on 09/02/2020 by Gianni Hubbard MD at OR [facility] Right: Hip LUDY : ORTHOPAEDICS 05/29/2023 6057-0637D / / [id number] Hip Cocr Lfit Head V40 28/+4 - [id number] Implanted:Qty: 1 on 09/02/2020 by Gianni Hubbard MD at OR [facility] Right: Hip LUDY : ORTHOPAEDICS 11/15/2024 6260-9-228 / / [id number] Hip Head Bipol Uhr Uni 28x52 - [id number] Implanted:Qty: 1 on 09/02/2020 by Gianni Hubbard MD at OR [facility] Right: Hip LUDY : ORTHOPAEDICS 11/25/2024 UH1-52-28 / / [id number] Lens Intraoc 17.5 - [id number] - [id number] Implanted:Qty: 1 on 03/23/2022 by Rad Morgan MD at OR [facility] Left: Eye BAUSCH & LOMB 10/11/2026 [id number] / [id number] / [id number] Lens Intraoc 18.0 - [id number] - [id number] Implanted:Qty: 1 on 03/30/2022 by Rad Morgan MD at OR [facility] Right: Eye BAUSCH & LOMB 01/11/2027 [id number] / [id number] / [id number] documented as of this encounter Advance Directives [...] the patient have Health Care Power of Gas Welding Equipment Mechanic? No Code Status History Code Status Date Activated Date Inactivated Comments No Code 03/30/2022 6:32 AM 03/30/2022 12:51 PM Th is order reflects the patients wishes and were consensually agreed upon. Question Answer Comments Discussion of Advance Directives occurred with: Patient Does the patient have a Living Will? No Does the patient have Health Care Power of Gas Welding Equipment Mechanic? No No Code 03/23/2022 9:56 AM 03/23/2022 4:51 PM Thi s order reflects the patients wishes and were consensually agreed upon. Question Answer Comments Discussion of Advance Directives occurred with: Patient Does the patient have a Living Will? No Does the patient have Health Care Power of Gas Welding Equipment Mechanic? No Full Code 11/26/2021 11:29 PM 11/30/2021 5:09 PM This order reflects the patients wishes and were consensually agreed upon. Question Answer Comments Discussion of Advance Directives occurred with: Patient/Family Full Code 11/14/2021 6:23 PM 11/17/2021 5:13 PM This or michael reflects the patients wishes and were consensually agreed upon. Question Answer Comments Discussion of Advance Directives occurred with: Patient Care Teams Combustion Engineer Relationship Specialty Start Date End Date Kaiser Amanda MD [address] [address] PCP - General Family Medicine 04/11/21 documented as of this encounter
--- OUTSIDE RECORDS SUMMARY | 2024-01-29 20:50 | External Medical Summary | Summary of Care ---
Author Name Unknown Organization [facility] Address [address] [facility] [address] Phone [phone] Care Team Providers Care Lamp Shade Assembler Name Role Phone Kaiser Amanda MD Primary Care Provider [phone] [phone] Reason for Referral * Evaluate & Treat - Unlimited Visits (Within 10 days (routine)) - Authorized Specialty Diagnoses / Procedures Referred By Fauzia oconnor Referred To Contact General Surgery Diagnoses Abdominal pain, RUQ Kaiser Amanda MD [address] [address] Referral ID Status Reason Start Date Expiration Date Visits Requested Visits Authorized [id number] Authorized Specialty Services Required 08/09/2023 999 999 [...] (Late st Contact Info) Description 08/09/2023 Telephone [facility] Rolo Chacko [address] [place] [phone] Kaiser [...] mRNA, LNP-s, No Pre serve, 2-Dose Series ([employer]reat[employer]) 04/23/2021,08/09/2020,07/12/2020 Covid-19, Mrna, Lnp-s, Pf, B ivalent, [...] encounter Miscellaneous Notes * Telephone Encounter - Telma Landa OSA - 08/09/2023 4:38 PM EDT Spoke to Pt's and scheduled. * Telephone Encounter - Laney Moreno RN [...] on what they should do next at [phone]. documented in this encounter Plan of Treatment Upcoming Encounters Date Type Department Care Team (Late st Contact Info) Description 08/10/2023 11:15 AM EDT Office Visit General Surgery [place] [address] [place] [address] [place] [address] Chachapriscillaken DO Aydee [address] [place] [address] [place] [address] 08/29/2023 3:00 PM EDT Anticoagulation Pharmacy, [place] [address] [place] [address] Pharmacist1, [facility] [place] [address] [place] [address] 08/31/2023 8:00 AM EDT Office Visit [facility] Surgery [facility] [address] [place] [address] Laney Hogue MD [address] [place] [address] 09/11/2023 8:00 AM EDT Office Visit [facility] Surgery [address] [address] Laney Hogue MD [address] [place] [address] 01/21/2024 2:00 PM EDT Office Visit Endocrinology, [place] [address] [place] [address] Sakina Jones MD [address] [place] [address] 01/25/2024 3:30 PM EDT Office Visit [facility] Surgery [facility] [address] [place] [address] Laney Hogue MD [address] [place] [address] 02/05/2024 2:30 PM EDT Office Visit Urology [place] Rinaldi [place] [address] [place] [address] [place] [address] Bert Boogie Jr., MD [address] [place] [address] [place] [address] 02/25/2024 9:20 AM EDT [facility] [address] [place] [phone] Kaiser Amanda MD [address] [place] [address] Scheduled Procedures Name Priority Associated Diagnoses Date/Ti [...] D LEVEL ONCE IN A LIFETIME-USE SMARTSET# [id number] Completed 07/26/2023, 02/26/2023, 01/23/2023, Additional history exists [...] this encounter Medical Devices Implanted Type Area Tire Classifier Device Identifier Shelf Expiration Date Model / Serial / Lot Cement Bone Simplex Hv & G - [id number] Implanted:Qty: 2 on 09/02/2020 by Gianni Hubbard MD at OR [facility] Right: Hip LUDY : ORTHOPAEDICS 08/11/2021 6195-1-010 / / [id number] Spacer Ring Aclde Distal Lg 14 - [id number] Implanted:Qty: 1 on 09/02/2020 by Gianni Hubbard MD at OR [facility] Right: Hip LUDY : ORTHOPAEDICS 11/25/2024 4160-2265 / / Accolade C 127 6 37/158 - [id number] Implanted:Qty: 1 on 09/02/2020 by Gianni Hubbard MD at OR [facility] Right: Hip LDUY : ORTHOPAEDICS 05/29/2023 6057-0637D / / [id number] Hip Cocr Lfit Head V40 28/+4 - [id number] Implanted:Qty: 1 on 09/02/2020 by Gianni Hubbard MD at OR [facility] Right: Hip LUDY : ORTHOPAEDICS 11/15/2024 6260-9-228 / / [id number] Hip Head Bipol Uhr Uni 28x52 - [id number] Implanted:Qty: 1 on 09/02/2020 by Gianni Hubbard MD at OR [facility] Right: Hip LUDY : ORTHOPAEDICS 11/25/2024 UH1-52-28 / / [id number] Lens Intraoc 17.5 - [id number] - [id number] Implanted:Qty: 1 on 03/23/2022 by Rad Morgan MD at OR [facility] Left: Eye BAUSCH & LOMB 10/11/2026 [id number] / [id number] / [id number] Lens Intraoc 18.0 - [id number] - [id number] Implanted:Qty: 1 on 03/30/2022 by Rad Morgan MD at OR [facility] Right: Eye BAUSCH & LOMB 01/11/2027 [id number] / [id number] / [id number] documented as of this encounter Visit Diagnoses [...] the patient have Health Care Power of Mobile Sales Assistant? No Code Status History Code Status Date Activated Date Inactivated Comments No Code 03/30/2022 6:32 AM 03/30/2022 12:51 PM Th is order reflects the patients wishes and were consensually agreed upon. Question Answer Comments Discussion of Advance Directives occurred with: Patient Does the patient have a Living Will? No Does the patient have Health Care Power of Mobile Sales Assistant? No No Code 03/23/2022 9:56 AM 03/23/2022 4:51 PM Thi s order reflects the patients wishes and were consensually agreed upon. Question Answer Comments Discussion of Advance Directives occurred with: Patient Does the patient have a Living Will? No Does the patient have Health Care Power of Mobile Sales Assistant? No Full Code 11/26/2021 11:29 PM 11/30/2021 5:09 PM This order reflects the patients wishes and were consensually agreed upon. Question Answer Comments Discussion of Advance Directives occurred with: Patient/Family Full Code 11/14/2021 6:23 PM 11/17/2021 5:13 PM This or michael reflects the patients wishes and were consensually agreed upon. Question Answer Comments Discussion of Advance Directives occurred with: Patient Care Teams Lamp Shade Assembler Relationship Specialty Start Date End Date Kaiser Amanda MD [address] [address] PCP - General Family Medicine 04/11/21 documented as of this encounter
--- OUTSIDE RECORDS SUMMARY | 2024-01-29 20:51 | External Medical Summary | Summary of Care ---
Author Name Unknown Organization [facility] Address [address] [facility] [place] [address] Phone [phone] Care Team Providers Care Security Incident Response Specialist Name Role Phone Kaiser Amanda MD Primary Care Provider [phone] Reason for Visit * Reason Onset Date Comments Test Results 08/02/2023 Encounter Details Date Type Department Care Team (Late st Contact Info) Description [facility]/02[facility] [place] [address] Kaiser Amanda MD 21 [facility] [place] [address] Test Results Allergies Active Allergy Reactions Criticality Noted Date Comments Cat Dander Itching 07/14/2016 documented as of this encounter (statuses as of 08/03/2023) Medications Medication Sig Dispensed Refills Start Date [...] [facility]),Type 2 diabetes mellitus with polyneuropathy (HCC) [...] than 7.5% ([facility]) TAKE 1 TABLET BY MOUTH DAILY. [...] with polyneuropathy ([facility]) Take 1 Tablet by mouth in [...] mellitus with polyneuropathy ([facility]),Type 2 diabetes mellitus with hemoglobin A1c goal of less than 7.5% ([facility]) USE STRIP TO CHECK GLUCOSE [...] as of this encounter (statuses as of 08/03/2023) Active Problems Problem Noted Date Diagnosed Date [...] as of this encounter (statuses as of 08/03/2023) Resolved Problems Problem Noted Date Diagnosed Date [...] as of this encounter (statuses as of 08/03/2023) Immunizations Name Administration Dates Next Due COVID-19 [...] money to buy more. Never true 06/09/19 Within the past 12 months, t he [...] Telephone Encounter - Mary Garnett LPN - 08/03/2023 8:11 AM EDT Pt informed, verbalizes understanding, pt agreeable to plan * Telephone Encounter - Kaiser Amanda MD - 08/02/2023 2:36 PM EDT Please advise his ultrasound shows stones in the galbladder without signs of inflammation/infection. I want for him to double up his omeprazole for one week. If symptoms do not improve, could consider seeing surgery to discuss risk/benefits of elective cholecystectomy documented in this encounter Plan of Treatment Upcoming Encounters Date Type Department Care Team (Late st Contact Info) Description 08/29/2023 3:00 PM EDT Anticoagulation Pharmacy, [place] [address] [place] [address] Pharmacist1, [facility] [place] [address] [address] 08/31/2023 8:00 AM EDT Office Visit [facility] Surgery [facility] [address] [place] [address] Laney Hogue MD [address] [place] [id number] 09/11/2023 8:00 AM EDT Office Visit [facility] Surgery [facility] [address] [place] [address] Laney Hogue MD [address] [place] [address] 01/21/2024 2:00 PM EDT Office Visit Endocrinology, [place] [address] [place], [place] [phone] Sakina Jones MD [address] [place], [place] [phone] 02/05/2024 2:30 PM EDT Office Visit Urology [place] [address] [place] [address] [place] [address] Bert Boogie Jr., MD [address] [place] [address] [place] [address] 02/25/2024 9:20 AM EDT Office Visit Family [facility] [place] [address] [phone] Kaiser Amanda MD [address] [address] Scheduled Procedures Name Priority Associated Diagnoses Date/Ti [...] D LEVEL ONCE IN A LIFETIME-USE SMARTSET# [id number] Completed 07/26/2023, 02/26/2023, 01/23/2023, Additional history exists [...] this encounter Medical Devices Implanted Type Area Funeral Director And Embalmer Device Identifier Shelf Expiration Date Model / Serial / Lot Cement Bone Simplex Hv & G - [id number] Implanted:Qty: 2 on 09/02/2020 by Gianni Hubbard MD at OR [facility] Right: Hip LUDY : ORTHOPAEDICS 08/11/2021 6195-1-010 / / [id number] Spacer Ring Aclde Distal Lg 14 - [id number] Implanted:Qty: 1 on 09/02/2020 by Gianni Hubbard MD at OR [facility] Right: Hip LUDY : ORTHOPAEDICS 11/25/2024 1106-5300 / / Accolade C 127 6 37/158 - [id number] Implanted:Qty: 1 on 09/02/2020 by Gianni Hubbard MD at OR [facility] Right: Hip LUDY : ORTHOPAEDICS 05/29/2023 6057-0637D / / [id number] Hip Cocr Lfit Head V40 28/+4 - [id number] Implanted:Qty: 1 on 09/02/2020 by Gianni Hubbard MD at OR [facility] Right: Hip LUDY : ORTHOPAEDICS 11/15/2024 6260-9-228 / / [id number] Hip Head Bipol [facility] 28x52 - [id number] Implanted:Qty: 1 on 09/02/2020 by Gianni Hubbard MD at OR [facility] Right: Hip LUDY : ORTHOPAEDICS 11/25/2024 1-52-28 / / [id number] Lens Intraoc 17.5 - [id number] - [id number] Implanted:Qty: 1 on 03/23/2022 by Rad Morgan MD at OR [facility] Left: Eye BAUSCH & LOMB 10/11/2026 [id number] / [id number] / [id number] Lens Intraoc 18.0 - [id number] - [id number] Implanted:Qty: 1 on 03/30/2022 by Rad Morgan MD at OR [facility] Right: Eye BAUSCH & LOMB 01/11/2027 [id number] / [id number] / [id number] documented as of this encounter Advance Directives [...] the patient have Health Care Power of Certified Nursing Attendant? No Code Status History Code Status Date Activated Date Inactivated Comments No Code 03/30/2022 6:32 AM 03/30/2022 12:51 PM Th is order reflects the patients wishes and were consensually agreed upon. Question Answer Comments Discussion of Advance Directives occurred with: Patient Does the patient have a Living Will? No Does the patient have Health Care Power of Certified Nursing Attendant? No No Code 03/23/2022 9:56 AM 03/23/2022 4:51 PM Thi s order reflects the patients wishes and were consensually agreed upon. Question Answer Comments Discussion of Advance Directives occurred with: Patient Does the patient have a Living Will? No Does the patient have Health Care Power of Certified Nursing Attendant? No Full Code 11/26/2021 11:29 PM 11/30/2021 5:09 PM This order reflects the patients wishes and were consensually agreed upon. Question Answer Comments Discussion of Advance Directives occurred with: Patient/Family Full Code 11/14/2021 6:23 PM 11/17/2021 5:13 PM This or michael reflects the patients wishes and were consensually agreed upon. Question Answer Comments Discussion of Advance Directives occurred with: Patient Care Teams Security Incident Response Specialist Relationship Specialty Start Date End Date Kaiser Amanda MD [address] [phone] PCP - General Family Medicine 04/11/21 documented as of this encounter
--- OUTSIDE RECORDS SUMMARY | 2024-01-29 20:51 | External Medical Summary | Summary of Care ---
Author Name Unknown Organization [facility] Address [address] [facility] [address] Phone [phone] Care Team Providers Care Distributor Operator Name Role Phone Kaiser Amanda MD Primary Care Provider [phone] [phone] Reason for Visit * Reason Comments Dosage Adjustment In Person (Anticoag Cl inic) Encounter Details Date Type Department Care Team (Late st Contact Info) Description 08/02/2023 1:40 PM EDT Anticoagulation Pharmacy, [address] [place] [address] Pharmacist1, [facility] [address] [place] [address] History of pulmonary embolism*; History of DVT (deep vein thrombosis); 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; 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 Allergies Active Allergy Reactions Criticality Noted Date Comments Cat Dander Itching 07/14/2016 documented as of this encounter (statuses as of 08/02/2023) Medications Medication Sig Dispensed Refills Start Date [...] with anxiety,Type 2 diabetes mellitus with polyneuropathy ([facility]) Take 1 Tablet by mouth in [...] Blood)Indications:T ype 2 diabetes mellitus with polyneuropathy ([facility]),Type 2 diabetes mellitus with hemoglobin A1c goal of less than 7.5% ([facility]) USE STRIP TO CHECK GLUCOSE ONCE [...] as of this encounter (statuses as of 08/02/2023) Active Problems Problem Noted Date Diagnosed Date [...] as of this encounter (statuses as of 08/02/2023) Resolved Problems Problem Noted Date Diagnosed Date [...] as of this encounter (statuses as of 08/02/2023) Immunizations Name Administration Dates Next Due COVID-19 [...] this encounter Progress Notes * Jessi Collier, [facility] - 08/02/2023 1:40 PM EDT Images from the original note were not included. Medication Therapy Disease Management - Anticoagulation Patient: Lewis Alarcon | : 1950 Subjective Patient-Reported Symptoms: Patient Findings Positives: Change in diet/appetite (eating less overall) Negatives: Signs/symptoms of thrombosis, Signs/symptoms of bleeding, Change in health, Change in alcohol use, Change in activity, Upcoming invasive procedure, Missed doses, Extra doses, Change in medications, Bruising Objective Current Warfarin Dose As of 08/02/2023 Warfarin maintenance plan: 10 mg (5 mg x 2) every Mon; 5 mg (5 mg x 1) all other days INR Result As of 08/02/2023 INR goal: 2.0-3.0 INR used for dosin.5 (08/02/2023) Assessment & Plan Warfarin Plan As of 08/02/2023 Full warfarin instructions: 08/01: Hold; Otherwise 5 mg every day Next INR check: 08/29/2023 Repeat PT/INR in 4 week(s) Weekly dose: decreased Additional Dosing Information: Description Patient scheduled for MOHS surgery on 08/30. INR to be < 3.5 for day of procedure. Will check INR2-3 days prior to procedure (no more than 7 days before). Jessi Collier [facility] Clinical Pharmacist 08/02/2023, 1:40 PM documented in this encounter Plan of Treatment Upcoming Encounters Date Type Department Care Team (Late st Contact Info) Description 08/29/2023 3:00 PM EDT Anticoagulation Pharmacy, [address] [place] [address] Pharmacist1, [facility] [address] [address] 08/31/2023 8:00 AM EDT Office Visit [facility] Surgery [address], [place] [address] Laney Hogue MD [address] [place] [address] [place] [address] 09/11/2023 8:00 AM EDT Office Visit [facility] Surgery [address], [place] [address] Laney Hogue MD [address] [place], [place] [address] [address] 01/21/2024 2:00 PM EDT Office Visit Endocrinology, [place] [address] [place] [address] Sakina Jones MD [address] [place] [address] 02/05/2024 2:30 PM EDT Office Visit Urology [place] Rinaldi [place] [address] [place] [address] Bert Boogie Jr., MD [address] [place] [place] [address] 02/25/2024 9:20 AM EDT Office Visit [facility] [place] [phone] Kaiser Amanda MD 21 [place] [address] Scheduled Procedures Name Priority Associated Diagnoses Date/Ti [...] D LEVEL ONCE IN A LIFETIME-USE SMARTSET# 47810 Completed 07/26/2023, 02/26/2023, 01/23/2023, Additional history exists [...] this encounter Medical Devices Implanted Type Area Sales And Leasing Consultant Device Identifier Shelf Expiration Date Model / Serial / Lot Cement Bone Simplex Hv & G - [id number] Implanted:Qty: 2 on 09/02/2020 by Gianni Hubbard MD at OR [facility] Right: Hip LUDY : ORTHOPAEDICS 08/11/2021 6195-1-010 / / [id number] Spacer Ring Aclde Distal Lg 14 - [id number] Implanted:Qty: 1 on 09/02/2020 by Gianni Hubbard MD at OR [facility] Right: Hip LUDY : ORTHOPAEDICS 11/25/2024 3296-8823 / / Accolade C Cs 127 6 37/158 - [id number] Implanted:Qty: 1 on 09/02/2020 by Gianni Hubbard MD at OR [facility] Right: Hip LUDY : ORTHOPAEDICS 05/29/2023 6057-0637D / / [id number] Hip Cocr Lfit Head V40 28/+4 - [id number] Implanted:Qty: 1 on 09/02/2020 by Gianni Hubbard MD at OR [facility] Right: Hip LUDY : ORTHOPAEDICS 11/15/2024 6260-9-228 / / [id number] Hip Head Bipol Uhr Uni 28x52 - [id number] Implanted:Qty: 1 on 09/02/2020 by Gianni Hubbard MD at OR [facility] Right: Hip LUDY : ORTHOPAEDICS 11/25/2024 UH1-52-28 / / [id number] Lens Intraoc 17.5 - [id number] - [id number] Implanted:Qty: 1 on 03/23/2022 by Rad Morgan MD at OR [facility] Left: Eye BAUSCH & LOMB 10/11/2026 [id number] / [id number] / [id number] Lens Intraoc 18.0 - [id number] - [id number] Implanted:Qty: 1 on 03/30/2022 by Rad Morgan MD at OR [facility] Right: Eye BAUSCH & LOMB 01/11/2027 [id number] / [id number] / [id number] documented as of this encounter Procedures Procedure Name Priority Date/Time Associated Diagnosis Comments INR FINGERSTICK, POINT OF CARE STAT 08/02/2023 1:45 PM EDT History of pulmonary embolism History of DVT (deep vein thrombosis) 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 detention current use of anticoagulant therapy documented in this encounter Results * INR FINGERSTICK, POINT OF CARE (08/02/2023 1:45 PM EDT) Fingerstick INR 3.5 INR 1:46 PM EDT LABORATORY [facility] 45- Blood 08/02/2023 1:45 PM EDT 08/02/2023 1:46 PM EDT Narrative [facility]ORY [facility] 45- - 08/02/2023 1:46 PM EDT Therapeutic ranges for non-operative patients: Prophylaxsis/treatment of DVT: (Range:2.0-3.0) Treatment of pulmonary embolism:(Range:2.0-3.0) Prevention of systemic embolism from: -tissue heart valves -acute myocardial infarction -valvular heart disease -atrial fibrillation (Range: 2.0-3.0) Mechanical prosthetic valves: (Range: 2.5-3.5) Jessi Collier [facility] LAB POINT OF CARE T EST DOCKED DEVICE UNSOLICITED RESULTS Performing Organization Address City/State/RUST Co de Phone Number LABORATORY [place] [phone] [place], [place] [phone] documented in this encounter Visit Diagnoses Diagnosis History of pulmonary embolism- Primary Personal history of pulmonary embolism History of DVT (deep vein thrombosis) Personal history of venous thrombosis and embolism 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 Encounter for therapeutic drug monitoring 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 No Code Status History Code Status Date Activated Date Inactivated Comments No Code 03/30/2022 6:32 AM 03/30/2022 12:51 PM Th is order reflects the patients wishes and were consensually agreed upon. Question Answer Comments Discussion of Advance Directives occurred with: Patient Does the patient have a Living Will? No Does the patient have Health Care Power of Certified Orthotist Practice Manager? No No Code 03/23/2022 9:56 AM 03/23/2022 4:51 PM Thi s order reflects the patients wishes and were consensually agreed upon. Question Answer Comments Discussion of Advance Directives occurred with: Patient Does the patient have a Living Will? No Does the patient have Health Care Power of Certified Orthotist Practice Manager? No Full Code 11/26/2021 11:29 PM 11/30/2021 5:09 PM This order reflects the patients wishes and were consensually agreed upon. Question Answer Comments Discussion of Advance Directives occurred with: Patient/Family Full Code 11/14/2021 6:23 PM 11/17/2021 5:13 PM This or michael reflects the patients wishes and were consensually agreed upon. Question Answer Comments Discussion of Advance Directives occurred with: Patient Care Teams Distributor Operator Relationship Specialty Start Date End Date Kaiser Amanda MD [address] [address] PCP - General Family Medicine 04/11/21 documented as of this encounter"
--- OUTSIDE RECORDS SUMMARY | 2024-01-29 20:51 | External Medical Summary | Summary of Care ---
Author Name Unknown Organization [facility] Address [address] [place] [facility] [place] [address] Phone [phone] Care Team Providers Care Vice President Of Finance Name Role Phone Kaiser Amanda MD Primary Care Provider [phone] Encounter Details Date Type Department Care Team (Latest Contact Info) Description 08/02/2023 11:25 AM EDT - 08/02/2023 11:59 PM EDT Hospital Encounter Radiology, [address] [place] [address] Arrived Discharge Disposition: Home - Self Care [...] goal of less than 7.5% ([facility]),Type 2 diabetes mellitus with polyneuropathy ([facility] [...] Description 08/29/2023 3:00 PM EDT Anticoagulation Pharmacy, [place] [address] [place] [address] Pharmacist1, [facility] [place] [address] 08/31/2023 8:00 AM EDT Office Visit [facility] Marielos Fa[place] [address] [place] [address] [facility] [address] [facility] [address] 09/11/2023 8:00 AM EDT Office Visit [facility] [address] [place] [address] Laney Hogue MD [address] [place] [address] 01/21/2024 2:00 PM EDT Office Visit Endocrinology, [place] [address] [place] [address] Sakina Jones MD [address] [place] [address] 02/05/2024 2:30 PM EDT Office Visit Urology [place] [address] [place] [address] Bert Boogie Jr., MD [address] [place] [address] 02/25/2024 9:20 AM EDT Office Visit [facility] [address] [place] [address] Kaiser Amanda MD [address] [place] [address] Scheduled Procedures Name Priority Associated Diagnoses Date/Ti [...] D LEVEL ONCE IN A LIFETIME-USE SMARTSET# 11040 Completed 07/26/2023, 02/26/2023, 01/23/2023, Additional history exists [...] this encounter Medical Devices Implanted Type Area Crew Team Member Device Identifier Shelf Expiration Date Model / Serial / Lot Cement Bone Simplex Hv & G - [id number] Implanted:Qty: 2 on 09/02/2020 by Gianni Hubbard MD at OR [facility] Right: Hip LUDY : ORTHOPAEDICS 08/11/2021 6195-1-010 / / [id number] Spacer Ring Aclde Distal Lg 14 - [id number] Implanted:Qty: 1 on 09/02/2020 by Gianni Hubbard MD at OR [facility] Right: Hip LUDY : ORTHOPAEDICS 11/25/2024 0261-6992 / / Accolade C Cs 127 6 37/158 - [id number] Implanted:Qty: 1 on 09/02/2020 by Gianni Hubbard MD at OR [facility] Right: Hip LUDY : ORTHOPAEDICS 05/29/2023 [id number] / / [id number] Hip Cocr Lfit Head V40 28/+4 - [id number] Implanted:Qty: 1 on 09/02/2020 by Gianni Hubbard MD at OR [facility] Right: Hip LUDY : ORTHOPAEDICS 11/15/2024 6260-9-228 / / [id number] Hip Head Bipol Uhr Uni 28x52 - [id number] Implanted:Qty: 1 on 09/02/2020 by Gianni Hubbard MD at OR [facility] Right: Hip LUDY : ORTHOPAEDICS 11/25/2024 UH1-52-28 / / [id number] Lens Intraoc 17.5 - [id number] - [id number] Implanted:Qty: 1 on 03/23/2022 by Rad Morgan MD at OR [facility] Left: Eye BAUSCH & LOMB 10/11/2026 [id number] / [id number] / [id number] Lens Intraoc 18.0 - [id number] - [id number] Implanted:Qty: 1 on 03/30/2022 by Rad Morgan MD at OR [facility] Right: Eye BAUSCH & LOMB 01/11/2027 [id number] / [id number] / [id number] documented as of this encounter Procedures Procedure Name Priority Date/Time Associated Diagnosis Comments US ABDOMEN LIMITED Routine 08/02/2023 12 :25 PM EDT Abdominal pain, RUQ documented in this encounter Results * US ABDOMEN LIMITED (08/02/2023 12:25 PM EDT) Anatomical Region Laterality Modality Abdomen, Body Ultrasound 08/02/2023 1:27 PM EDT Impressions 08/02/2023 1:24 PM EDT IMPRESSION Cholelithiasis without evidence of cholecystitis. Narrative 08/02/2023 1:24 PM EDT EXAM US ABDOMEN LIMITED - 08/02/2023 12:25 pm HISTORY RUQ, assess gallbladder, postprandial pain TECHNIQUE Sonogram of the right upper quadrant. COMPARISON CT abdomen/pelvis dated 04/15/2022 FINDINGS LIVER: Normal echogenicity. No focal lesion. BILE DUCTS: No intrahepatic or extrahepatic duct dilatation. The common bile duct measures 3 mm. GALLBLADDER: Cholelithiasis without gallbladder wall thickening or pericholecystic fluid. PANCREAS: Fatty atrophy. RIGHT KIDNEY: 9.6 cm in length. Normal size and echogenicity. Nonobstructive calculus in the lower pole. No hydronephrosis. 1.2 cm simple cyst in the lower pole. OTHER: No ascites. Procedure Note Colin Rondon DO - 08/02/2023 EXAM US ABDOMEN LIMITED - 08/02/2023 12:25 pm HISTORY RUQ, assess gallbladder, postprandial pain TECHNIQUE Sonogram of the right upper quadrant. COMPARISON CT abdomen/pelvis dated 04/15/2022 FINDINGS LIVER: Normal echogenicity. No focal lesion. BILE DUCTS: No intrahepatic or extrahepatic duct dilatation. The commonbile duct measures 3 mm. GALLBLADDER: Cholelithiasis without gallbladder wall thickening orpericholecystic fluid. PANCREAS: Fatty atrophy. RIGHT KIDNEY: 9.6 cm in length. Normal size and echogenicity.Nonobstructive calculus in the lower pole. No hydronephrosis. 1.2 cmsimple cyst in the lower pole. OTHER: No ascites. IMPRESSION IMPRESSION Cholelithiasis without evidence of cholecystitis. Kaiser Amanda MD RAD ULTRASOUND documented in this encounter Visit Diagnoses Diagnosis Abdominal pain, RUQ Abdominal pain, right upper quadrant documented in [...] the patient have Health Care Power of Bilingual Teacher Assistant? No Code Status History Code Status Date Activated Date Inactivated Comments No Code 03/30/2022 6:32 AM 03/30/2022 12:51 PM Th is order reflects the patients wishes and were consensually agreed upon. Question Answer Comments Discussion of Advance Directives occurred with: Patient Does the patient have a Living Will? No Does the patient have Health Care Power of Bilingual Teacher Assistant? No No Code 03/23/2022 9:56 AM 03/23/2022 4:51 PM Thi s order reflects the patients wishes and were consensually agreed upon. Question Answer Comments Discussion of Advance Directives occurred with: Patient Does the patient have a Living Will? No Does the patient have Health Care Power of Bilingual Teacher Assistant? No Full Code 11/26/2021 11:29 PM 11/30/2021 5:09 PM This order reflects the patients wishes and were consensually agreed upon. Question Answer Comments Discussion of Advance Directives occurred with: Patient/Family Full Code 11/14/2021 6:23 PM 11/17/2021 5:13 PM This or michael reflects the patients wishes and were consensually agreed upon. Question Answer Comments Discussion of Advance Directives occurred with: Patient Care Teams Vice President Of Finance Relationship Specialty Start Date End Date Kaiser Amanda MD [address] [place] [address] PCP - General Family Medicine 04/11/21 documented as of this encounter
--- OUTSIDE RECORDS SUMMARY | 2024-01-29 20:51 | External Medical Summary | Summary of Care ---
Author Name Unknown Organization [facility] Address [address] [place] [address] Phone [phone] Care Team Providers Care News Department Intern Name Role Phone Kaiser Amanda MD Primary Care Provider [phone] Encounter Details Date Type Department Care Team (Late st Contact Info) Description [facility] [place] [address] Kaiser Amanda MD [address] [place] [address] Allergies Active Allergy Reactions Criticality Noted [...] Description 08/29/2023 3:00 PM EDT Anticoagulation Pharmacy, [place] [address] [place] [address] Pharmacist1, [facility] [place] [address] [place] [address] 08/31/2023 8:00 AM EDT Office Visit [facility] Surgery [facility] [address] [place] [address] Laney Hogue MD [address] [place] [address] 09/11/2023 8:00 AM EDT Office Visit [facility] Surgery [facility] [address] [place] [address] Laney Hogue MD [address] [place] [address] 01/21/2024 2:00 PM EDT Office Visit Endocrinology, [place] [address] [place] [address] Sakina Jones MD [address] [place], [place] [phone] 02/05/2024 2:30 PM EDT Office Visit Urology [place] R[place] [place] [address] [place] [address] Bert Boogie Jr., MD [address] [facility] [address] [place] [place] [address] 02/25/2024 9:20 AM EDT Office Visit Family [facility], [place] [address] [place] [address] [phone] Kaiser Amanda MD [address] [place] [address] Scheduled Procedures Name Priority Associated Diagnoses Date/Ti [...] D LEVEL ONCE IN A LIFETIME-USE SMARTSET# [id number] Completed 07/26/2023, 02/26/2023, 01/23/2023, Additional history exists [...] this encounter Medical Devices Implanted Type Area Stockroom Helper Device Identifier Shelf Expiration Date Model / Serial / Lot Cement Bone Simplex Hv & G - [id number] Implanted:Qty: 2 on 09/02/2020 by Gianni Hubbard MD at OR [facility] Right: Hip LUDY : ORTHOPAEDICS 08/11/2021 6195-1-010 / / [id number] Spacer Ring Aclde Distal Lg 14 - [id number] Implanted:Qty: 1 on 09/02/2020 by Gianni Hubbard MD at OR [facility] Right: Hip LUDY : ORTHOPAEDICS 11/25/2024 4517-5118 / / Accolade C Cs 127 6 37/158 - [id number] Implanted:Qty: 1 on 09/02/2020 by Gianni Hubbard MD at OR [facility] Right: Hip LUDY : ORTHOPAEDICS 05/29/2023 6057-0637D / / [id number] Hip Cocr Lfit Head V40 28/+4 - [id number] Implanted:Qty: 1 on 09/02/2020 by Gianni Hubbard MD at OR [facility] Right: Hip LUDY : ORTHOPAEDICS 11/15/2024 6260-9-228 / / [id number] Hip Head Bipol Uhr Uni 28x52 - [id number] Implanted:Qty: 1 on 09/02/2020 by Gianni Hubbard MD at OR [facility] Right: Hip LUDY : ORTHOPAEDICS 11/25/2024 UH1-52-28 / / [id number] Lens Intraoc 17.5 - [id number] - [id number] Implanted:Qty: 1 on 03/23/2022 by Rad Morgan MD at OR [facility] Left: Eye BAUSCH & LOMB 10/11/2026 [id number] / [id number] / [id number] Lens Intraoc 18.0 - [id number] - [id number] Implanted:Qty: 1 on 03/30/2022 by Rad Morgan MD at OR [facility] Right: Eye BAUSCH & LOMB 01/11/2027 [id number] / [id number] / [id number] documented as of this encounter Advance Directives [...] the patient have Health Care Power of Property Insurance Agent? No Code Status History Code Status Date Activated Date Inactivated Comments No Code 03/30/2022 6:32 AM 03/30/2022 12:51 PM Th is order reflects the patients wishes and were consensually agreed upon. Question Answer Comments Discussion of Advance Directives occurred with: Patient Does the patient have a Living Will? No Does the patient have Health Care Power of Property Insurance Agent? No No Code 03/23/2022 9:56 AM 03/23/2022 4:51 PM Thi s order reflects the patients wishes and were consensually agreed upon. Question Answer Comments Discussion of Advance Directives occurred with: Patient Does the patient have a Living Will? No Does the patient have Health Care Power of Property Insurance Agent? No Full Code 11/26/2021 11:29 PM 11/30/2021 5:09 PM This order reflects the patients wishes and were consensually agreed upon. Question Answer Comments Discussion of Advance Directives occurred with: Patient/Family Full Code 11/14/2021 6:23 PM 11/17/2021 5:13 PM This or michael reflects the patients wishes and were consensually agreed upon. Question Answer Comments Discussion of Advance Directives occurred with: Patient Care Teams News Department Intern Relationship Specialty Start Date End Date Kaiser Amanda MD [address] [id number] PCP - General Family Medicine 04/11/21 documented as of this encounter
--- NOTE | 2024-01-30 05:54 | Ultrasound Report ---
Exam(s): US GALLBLADDER EXAM: US Abdomen Limited, Gallbladder CLINICAL HISTORY: Reason for exam: gallstones. TECHNIQUE: Real-time ultrasound of the right upper quadrant with image documentation. COMPARISON: No relevant prior studies available. FINDINGS: Gallbladder: Echogenic foci demonstrated within the nondependent gallbladder. There is some gallbladder sludge present. Common bile duct: Unremarkable as visualized. No stones. No dilation. Pancreas: Unremarkable as visualized. Right kidney: There is linear hyper echogenicity within the right kidney up to 1.2 cm in maximal transverse dimension. IMPRESSION: Probable gallstones and some gallbladder suspicion of intrarenal right side as well. Electronically signed by: Jose A Beavers MD 01/30/24 05:53 AM
[2024-01-30 06:17] LABS: Hematocrit (blood only) 33.3 % (42.0-52.0); Hemoglobin 10.9 g/dl (14.0-18.0); Mean Corpuscular Hemoglobin 29.7 pg (25.0-34.0); Mean Corpuscular Hgb Conc 32.7 g/dL (32.0-36.0); Mean Corpuscular Volume 90.7 fL (80.0-100.0); Mean Platelet Volume 10.2 fL (9.4-12.4); Platelet Count 178 K/uL (130-400); RDW Coefficient of Variation 15.5 % (11.5-14.5); RDW Standard Deviation 51.1 fL (36.4-46.3); Red Blood Count 3.67 M/uL (4.70-6.10)
[2024-01-30 06:26] LABS: Albumin Globulin Ratio 1.5 (0.9-2); Albumin Level 3.3 gm/dl (3.4-5.0); BUN Creatinine Ratio 16.1 (10-20); Bilirubin,Total 0.6 mg/dl (0.2-1.0); Calcium 8.1 mg/dl (8.6-10.3); Creatinine Clr Calc Pharmacy 73.2 ml/min; Est GFR (African American) 99.2 ml/min; Est GFR (Non-African American) 85.6 ml/min; Globulin 2.2 gm/dl (2.5-4.0); Magnesium 1.5 mg/dl (1.7-2.4); Potassium 3.9 mmol/L (3.5-5.1); Total Protein 5.5 gm/dl (6.0-8.3)
[2024-01-30 06:41] LABS: INR 2.8 (0.9-1.1); Prothrombin Time 27.4 Seconds (9.0-12.0)
[2024-01-30] MEDS: PANTOprazole 40 MG TAB PO SCH (07:07)
[2024-01-30] MEDS: DULoxetine HCL 60 MG CAP PO SCH (07:07)
[2024-01-30] MEDS: FLUDROCORTISONE ACETATE 0.1 MG TAB PO SCH (07:07)
[2024-01-30] MEDS: FINASTERIDE 5 MG TAB PO SCH (07:07)
[2024-01-30] MEDS: CINACALCET HCL 30 MG TAB PO SCH (07:08)
[2024-01-30] MEDS: ATORVASTATIN 40 MG TAB PO SCH (07:08)
[2024-01-30] MEDS: CHOLECALCIFEROL 10 MCG (400 UNITS) TAB PO SCH (07:08)
[2024-01-30] MEDS: ACETAMINOPHEN 325 MG TAB PO PRN (07:12)
--- NOTE | 2024-01-30 08:29 | Surgery Progress Note ---
<Statement entered by Davidson Coburn DO - 01/30/24 09:34> I have seen and examined this patient with the surgical [facility]OM[facility]. He does not have RUQ TTP, no leukocytosis, no N/V and a (-) US for acute findings in the face of cholelithiasis. This am, his complaints are chronic mid back pain from poor positioning and off and on suprapubic pain a/w prior dysuria prior to juarez catheter insertion. He is not showing any evidence for infection. I agree with the plan as written. Date of Service January 30, 2024 Assessment & Plan (1) Cholelithiasis: Plan: Pt denies abd pain , is TTP throughout U/S showing cholelithiasis no evidence for acute cholecystitis LFT non elevated VSS , WBC non elevated no acute surgical intervention indicated at this time if concern arises for acute cholecystitis a HIDA scan could be ordered Admission and Anticipated Discharge Date Admission Date: January 29, 2024 Subjective pt awake resting in bed reports some lower back pain no n/v , no abd pain Review of Systems Gastrointestinal: no abdominal pain, no nausea and no vomiting Physical Exam Gastrointestinal (Abdomen): Inspection/Auscultation: abdomen not distended Percussion/Palpation: + abdomen tender (TTP throughout ) and abdomen soft Results & Data Vital Signs (Past 12 Hours) Vital Signs Temp Pulse Resp BP Pulse Ox O2 Del Method 01/30/24 07:09 97.4 F L 67 18 156/87 H 96 Room Air Results CBC w Diff Results: RBC 3.67 M/uL (4.70-6.10) L 01/30/24 WBC 5.50 K/ul (4.8-10.8) 01/30/24 Hgb 10.9 g/dl (14.0-18.0) L 01/30/24 Hct 33.3 % (42.0-52.0) L 01/30/24 MCV 90.7 fL (80.0-100.0) 01/30/24 MCH 29.7 pg (25.0-34.0) 01/30/24 MCHC 32.7 g/dL (32.0-36.0) 01/30/24 RDW Standard Deviation 51.1 fL (36.4-46.3) H 01/30/24 RDW Coefficient of Variation 15.5 % (11.5-14.5) H 01/30/24 Plt Count 178 K/uL (130-400) 01/30/24 MPV 10.2 fL (9.4-12.4) 01/30/24 Neutrophils (%) (Auto) 62.9 % 01/29/24 Lymphocytes (%) (Auto) 24.9 % 01/29/24 Monocytes # (Auto) 0.60 K/uL (0.11-0.59) H 01/29/24 Eosinophils # (Auto) 0.24 K/uL (0.00-0.50) 01/29/24 Immature Granulocyte % (Auto) 0.4 % 01/29/24 Neutrophils # (Auto) 4.77 K/uL (1.40-6.50) 01/29/24 Lymphocytes # (Auto) 1.89 K/uL (1.20-3.40) 01/29/24 Monocytes # (Auto) 0.60 K/uL (0.11-0.59) H 01/29/24 Eosinophils # (Auto) 0.24 K/uL (0.00-0.50) 01/29/24 Basophils # (Auto) 0.05 K/uL (0.00-0.20) 01/29/24 Immature Granulocyte # (Auto) 0.03 K/uL (0.01-0.20) 4 Results CMP Results: Na 137 mmol/L (136-145) 01/30/24 K 3.9 mmol/L (3.5-5.1) 01/30/24 Cl 103 mmol/L (98-107) 01/30/24 CO2 25 mmol/L (21-32) 01/30/24 Anion Gap 9 (3-11) 01/30/24 BUN 14 mg/dl (6-23) 01/30/24 Creatinine 0.87 mg/dl (0.6-1.4) 01/30/24 Estimated GFR ( Amer) 99.2 ml/min 01/30/24 Estimated GFR (Non-Af Amer) 85.6 ml/min 01/30/24 BUN/Creatinine Ratio 16.1 (10-20) 01/30/24 Glu 80 mg/dl (70-99(Fasting)) 01/30/24 Ca 8.1 mg/dl (8.6-10.3) L 01/30/24 Phosphorus Level 3.6 mg/dl (2.5-4.9) 07/18/19 Total Bilirubin 0.6 mg/dl (0.2-1.0) 01/30/24 AST 12 U/L (13-39) L 01/30/24 ALT 6 U/L (7-52) L 01/30/24 Alkaline Phosphatase 38 U/L (34-104) 01/30/24 TP 5.5 gm/dl (6.0-8.3) L 01/30/24 Albumin 3.3 gm/dl (3.4-5.0) L 01/30/24 Globulin 2.2 gm/dl (2.5-4.0) L 01/30/24 Albumin/Globulin Ratio 1.5 (0.9-2) 01/30/24 PG Care Time/CCT Total # of Minutes Spent Total Time Spent with Patient: Total time spent is greater than 50% in coordination of care (as documented) at patient's floor/unit and/or counseling patient: Coding Level of Care Code 72295 SUB INP/OBS CARE Diagnoses Cholelithiasis K80.20
--- NOTE | 2024-01-30 11:06 | Urology Progress Note ---
Date of Service January 30, 2024 Assessment & Plan (1) Urinary retention: (2) Chronic indwelling Chaparro catheter: (3) UTI (urinary tract infection): (4) Nephrolithiasis: Plan 73yo/M with a history of recurrent UTI, BPH, and urinary retention managed with Chaparro catheter who is admitted with ambulatory dysfunction, weakness and suspected UTI. - Afebrile with stable vitals. - Labs today show no leukocytosis and normal renal function. - Urine culture pending. - Chaparro intact and draining clear yellow urine. - CTAP reviewed -Bilateral nephrolithiasis with a 1.7 cm right renal pelvis stone, no hydronephrosis, prostatomegaly with evidence of bladder outlet obstruction, and indeterminant b/l renal lesions. - No indication for acute intervention/stent placement. - He does have a large right renal pelvis stone which does not appear to be causing any obstruction. However this could be a source of infection so consideration of outpatient stone treatment could be discussed with his primary urologist. - If he were to develop fevers or other acute changes, may need to consider reimaging and/or consideration of right stent placement. - Indeterminant renal lesions can be further evaluated with follow-up imaging as an outpatient. - Would recommend maintaining Chaparro catheter until outpatient follow-up with his primary urologist. He is scheduled for cystoscopy in February with Dr. Nikolai Chaudhari of [facility] urology per chart review. - Continue antibiotics and tailor per culture sensitivities. - Continue Flomax and finasteride. - Continue supportive are. -Urology will follow peripherally. Please call with any questions or changes in patient status. Admission and Anticipated Discharge Date Admission Date: January 29, 2024 Subjective Patient seen at bedside this morning Awake and resting in bed, NAD Chaparro draining clear yellow urine He reports some lower back pain Denies fever, chills, nausea, vomiting Denies hematuria Reports some mild dysuria Review of Systems Constitutional: as per Subjective / HPI Genitourinary: + as per Subjective / HPI Physical Exam Constitutional: no acute distress Respiratory: no respiratory distress and no labored breathing Neurologic: awake Psychiatric: Orientation: alert and cooperative Genitourinary: Chaparro draining clear yellow urine Results & Data Vital Signs (Past 12 Hours) Vital Signs Temp Pulse Resp BP Pulse Ox O2 Del Method 01/30/24 07:09 36.3 C L 67 18 156/87 H 96 Room Air PG Care Time/CCT Total # of Minutes Spent Total Time Spent with Patient: Total time spent is greater than 50% in coordination of care (as documented) at patient's floor/unit and/or counseling patient: Coding Level of Care Code 02181 SUB INP/OBS CARE 2/35MIN Diagnoses Urinary retention R33.9 Chronic indwelling Chaparro catheter Z97.8 UTI (urinary tract infection) T83.511A; N39.0 Encounter type: initial encounter Indwelling urinary catheter type: indwelling urethral catheter Urinary tract infection type: catheter-associated UTI Nephrolithiasis N20.0 (3) UTI (urinary tract infection) Encounter type: initial encounter Indwelling urinary catheter type: indwelling urethral catheter Urinary tract infection type: catheter-associated UTI Qualified Code(s): T83.511A - Infection and inflammatory reaction due to indwelling urethral catheter, initial encounter; N39.0 - Urinary tract infection, site not specified
--- NOTE | 2024-01-30 14:48 | History & Physical Report ---
Date of Service January 30, 2024 Assessment & Plan (1) Postprandial abdominal pain in left upper quadrant: Plan: Associated with postprandial vomiting of undigested food, and weight loss. Need to consider luminal upper GI pathology such as peptic ulcer disease, bowel obstruction due to benign or malignant disease, gastritis. Recommend upper endoscopy for further investigation. Will need to hold his Coumadin in light of elevated INR. Needs to be around 1.5 for the procedure if possible. Admission and Anticipated Discharge Date Admission Date: January 29, 2024 History of Present Illness Chief Complaint: Postprandial abdominal pain vomiting and weight loss Primary Care Provider: Kaiser Amanda MD Patient has had a history of recurrent postprandial epigastric pain with episodic vomiting of undigested food and a significant weight loss over the last several months. He denies any dysphagia change in bowel habits prior blood per rectum or melena. He has had multiple urinary tract infections over the last year treated with multiple courses of antibiotics. He is on longstanding anticoagulation for prior history of pulmonary emboli. No other significant cardiopulmonary disease. Allergies Allergy/AdvReac Type Severity Reaction Status Date / Time No Known Allergies Allergy Unverified 08/12/18 17:06 Home Medications Medication Instructions Recorded Confirmed Type atorvastatin 40 mg tablet 40 mg PO DAILY 08/12/18 01/29/24 History duloxetine 30 mg capsule,delayed 60 mg PO DAILY 08/12/18 01/29/24 History release metformin 1,000 mg tablet 1,000 mg PO BIDM 08/12/18 01/29/24 History tamsulosin 0.4 mg capsule (Flomax) 0.4 mg PO QPM 08/12/18 01/29/24 History cholecalciferol (vitamin D3) 10 10 mcg PO DAILY 01/29/24 01/29/24 History mcg (400 unit) tablet cinacalcet 30 mg tablet 30 mg PO DAILY 01/29/24 01/29/24 History ferrous sulfate 325 mg (65 mg 325 mg PO HS 01/29/24 01/29/24 History iron) tablet finasteride 5 mg tablet 5 mg PO DAILY 01/29/24 01/29/24 History fludrocortisone 0.1 mg tablet 0.1 mg PO DAILY 01/29/24 01/29/24 History glipizide 2.5 mg tablet, extended 2.5 mg PO DAILY 01/29/24 01/29/24 History release 24 hr metoprolol succinate 25 mg 12.5 mg PO BID 01/29/24 01/29/24 History tablet,extended release 24 hr omeprazole 20 mg capsule,delayed 20 mg PO DAILY 01/29/24 01/29/24 History release warfarin 5 mg tablet 5 mg PO DAILY 01/29/24 01/29/24 History Past Med/Surg History Problem List (Updated 01/30/24 @ 14:46 by Enrrique Dodson MD) Postprandial abdominal pain in left upper quadrant Abnormal weight loss (Acute) Hypomagnesemia (Acute) Abdominal pain (Acute) Chronic indwelling Chaparro catheter (Acute) Ambulatory dysfunction (Acute) Generalized weakness (Acute) Urinary retention Cholelithiasis UTI (urinary tract infection) (Acute) Medical History (Updated 01/30/24 @ 14:46 by Enrrique Dodson MD) Nephrolithiasis History of pulmonary embolism History of DVT (deep vein thrombosis) History of Hodgkin's disease BPH (benign prostatic hyperplasia) Orthostatic hypotension HTN (hypertension) Hyperparathyroidism DM type 2 (diabetes mellitus, type 2) Cord compression 2018 - due to trauma (fall down stairs) Surgical History Status post cervical spinal fusion History of laminectomy Social History Smoking Status: Never smoker Hx Alcohol Use: No Hx Substance Use: No Preferred Language: Slovenian Communication Ability: Effective Regulator Pin Inserter Required: No Beliefs That Will Affect Care: None Current Living Situation: Spouse Other Information That Helps Us Care for You: No Feels Safe at Home: Yes Safety Concerns: Feels Safe At This Time Assistive Devices: Walker and Wheelchair Review of Systems No fever No chills No SOB No CP episodic epigastric pain Physical Exam Physical Exam: Eyes; anicteric HENT No masses Chest clear to A Cor S1, S2 physiologic Abd: softer nontender no masses Ext no edema Results & Data Vital Signs (Past 12 Hours) Vital Signs Temp Pulse Resp BP Pulse Ox O2 Del Method 01/30/24 07:09 36.3 C L 67 18 156/87 H 96 Room Air Laboratory Results Laboratory Results - last 48 hr 01/29/24 01/29/24 01/29/24 12:30 20:30 Unknown WBC 7.58 RBC 4.10 L Hgb 12.3 L Hct 36.8 L MCV 89.8 MCH 30.0 MCHC 33.4 RDW Std Deviation 49.9 H RDW Coeff of Doreen 15.2 H Plt Count 275 MPV 9.2 L Immature Gran % (Auto) 0.4 Neut % (Auto) 62.9 Lymph % (Auto) 24.9 [place] % (Auto) 7.9 Eos % (Auto) 3.2 Baso % (Auto) 0.7 Neut # (Auto) 4.77 Lymph # (Auto) 1.89 [place] # (Auto) 0.60 H Eos # (Auto) 0.24 Baso # (Auto) 0.05 Immature Gran # (Auto) 0.03 PT 31.2 H INR 3.2 H Sodium 137 Potassium 3.9 Chloride 101 Carbon Dioxide 24 Anion Gap 12 H BUN 14 Creatinine 0.84 Est Cr Clr Drug Dosing Not Reportable Est GFR ( Amer) 100.7 Est GFR (Non-Af Amer) 86.9 BUN/Creatinine Ratio 16.7 Glucose 82 POC Glucose 93 Calcium 9.1 Magnesium 1.0 L Total Bilirubin 0.7 AST 12 L ALT 9 Alkaline Phosphatase 48 Troponin I High Sens 4.1 Total Protein 6.4 Albumin 3.9 Globulin 2.5 Albumin/Globulin Ratio 1.6 Lipase 13 TSH 0.623 Urine Color Yellow Urine Appearance Cloudy A Urine pH 5.0 Ur Specific [place] 1.014 Urine Protein Negative Urine Glucose (UA) Negative Urine Ketones Trace H Urine Blood 1+ H Urine Nitrite Negative Urine Bilirubin Negative Urine Urobilinogen Negative Ur Leukocyte Esterase 3+ H Urine WBC (Auto) >50 H Urine RBC (Auto) 3-5 H U Hyaline Cast (Auto) 11-20 H U Epithel Cells (Auto) 0-2 Urine Bacteria (Auto) None Seen SARS-CoV-2 (PCR) NEGATIVE Influenza Type A (PCR) Negative Influenza Type B (PCR) Negative RSV (RT-PCR) Negative 01/30/24 01/30/24 01/30/24 05:45 07:36 11:41 WBC 5.50 RBC 3.67 L Hgb 10.9 L Hct 33.3 L MCV 90.7 MCH 29.7 MCHC 32.7 RDW Std Deviation 51.1 H RDW Coeff of Doreen 15.5 H Plt Count 178 MPV 10.2 Immature Gran % (Auto) Neut % (Auto) Lymph % (Auto) [place] % (Auto) Eos % (Auto) Baso % (Auto) Neut # (Auto) Lymph # (Auto) [place] # (Auto) Eos # (Auto) Baso # (Auto) Immature Gran # (Auto) PT 27.4 H INR 2.8 H Sodium 137 Potassium 3.9 Chloride 103 Carbon Dioxide 25 Anion Gap 9 BUN 14 Creatinine 0.87 Est Cr Clr Drug Dosing 73.2 Est GFR ( Amer) 99.2 Est GFR (Non-Af Amer) 85.6 BUN/Creatinine Ratio 16.1 Glucose 80 POC Glucose 87 147 H Calcium 8.1 L Magnesium 1.5 L Total Bilirubin 0.6 AST 12 L ALT 6 L Alkaline Phosphatase 38 Troponin I High Sens Total Protein 5.5 L Albumin 3.3 L Globulin 2.2 L Albumin/Globulin Ratio 1.5 Lipase 9 L TSH Urine Color Urine Appearance Urine pH Ur Specific [place] Urine Protein Urine Glucose (UA) Urine Ketones Urine Blood Urine Nitrite Urine Bilirubin Urine Urobilinogen Ur Leukocyte Esterase Urine WBC (Auto) Urine RBC (Auto) U Hyaline Cast (Auto) U Epithel Cells (Auto) Urine Bacteria (Auto) SARS-CoV-2 (PCR) Influenza Type A (PCR) Influenza Type B (PCR) RSV (RT-PCR) Code Status & VTE Plan VTE Prophylaxis Plan VTE Prophylaxis will be ordered: No Coding Level of Care Code 77598 INT INP/OBS CARE 2/55MIN Diagnoses Postprandial abdominal pain in left upper quadrant R10.12
[2024-01-30] MEDS ORDERED: WARFARIN SOD 5 MG TAB PO SCH (16:00)
--- NOTE | 2024-01-30 17:19 | Hospitalist Progress Note ---
Date of Service January 30, 2024 Assessment & Plan (1) UTI (urinary tract infection): (2) BPH (benign prostatic hyperplasia): (3) Urinary retention: (4) Generalized weakness: (5) Ambulatory dysfunction: Plan: per previous admitting service notes with addendum: Admit to med/surg Patient presenting from home for evaluation of generalized weakness and ambulatory dysfunction. Patient recently admitted to [facility] 01/08 through 01/13 for near syncope and orthostatic hypotension. Patient's midodrine was increased and patient was discharged to [facility] for rehab. Since September of this year, patient has had recurrent urinary tract infections. Patient was discharged from [facility] on 01/25. Since arriving home, patient has been generally weak and unable to ambulate. states she has been placing him in a wheelchair at home. Patient was seen at [facility] ED yesterday for these complaints. Patient was diagnosed with a UTI and discharged on Augmentin. Urine culture from [facility] growing E. Coli, sensitivities pending. Previous urine cultures have grown Klebsiella Start IV ceftriaxone, follow urine culture Patient with history of BPH with chronic urinary retention Chaparro catheter in place, Chaparro was exchanged at [facility] ED yesterday. Patient is scheduled for cysto on 02/[address] Nikolai Chaudhari. Patient and requesting second opinion. Consult to [facility] urology placed. Currently afebrile, no leukocytosis Noted that while at [facility], patient's midodrine was changed to fludrocortisone. Patient's states that she has been unable to cloth picker this new prescription at the pharmacy and patient has been without for the past 3 days. This may be contributing to patient's worsening weakness. PT/OT, may need placement 01/29 Improving from the UTI standpoint Continue IV ceftriaxone, will follow-up outpatient sensitivities Abdominal pain Concerning in light of associated symptoms including nausea, poor oral intake, weight loss GI service consulted Plan for EGD once INR is 1.5 and below Hold Coumadin Protonix 40 mg IV started (6) Cholelithiasis: Plan: Patient reporting post prandial nausea for the past several months. Has been unable to eat and loosing weight. Was seen by [facility] surgery in July for cholelithiasis. Cholecystectomy not advised at that time. Patient and requesting second opinion. Consult placed to [facility] general surgery. 01/29 Denies right upper quadrant pain, also exam negative for Regalado sign Gallbladder ultrasound not definitive for acute cholecystitis LFTs [facility] consulted, no plans for cholecystectomy at this time (7) History of DVT (deep vein thrombosis): (8) History of pulmonary embolism: Plan: On Coumadin, INR 3.2 Continue Coumadin and monitor INR INR is 2.8 Hold Coumadin for EGD (9) Orthostatic hypotension: Plan: Previously managed on midodrine, recently changed to fludrocortisone while at [facility] BP currently stable, continue fludrocortisone Monitor blood pressure (10) HTN (hypertension): Plan: With orthostatic hypotension BP stable, continue metoprolol (11) Hyperparathyroidism: Plan: Chronic, stable Continue cinacalcet (12) DM type 2 (diabetes mellitus, type 2): Plan: HgbA1c 6.8 10/2023 Hold oral agents and utilize NovoLog per protocol while hospitalized DVT PROPHYLAXIS Hold Coumadin Admission and Anticipated Discharge Date Admission Date: January 29, 2024 Subjective Follow-up for recurrent UTI, etc. Seen resting in bed, sitting up, not in distress States he has some generalized aches, likely from being in bed for a prolonged period Also reports epigastric pain, poor appetite, intermittent nausea and some weight loss were at least a month now No issues with Chaparro catheter, fevers or chills Review of Systems Review of Systems: all noted and negative except for above Physical Exam Physical Exam: General- oriented x 3, not in distress, speaks in sentences with no effort or accessory muscle use Eyes- anicteric Neck- no JVD Lungs- clear breath sounds bilaterally, No crackles or wheezing Heart- normal rate, regular rhythm; no murmurs Abdomen- normal bowel sounds, nondistended, soft, Might mild epigastric tenderness Extremities- no pretibial edema, no calf tenderness Neuro- alert, oriented x 3; Mild weakness of left upper extremity otherwise no gross focal neurologic deficits Skin- warm & dry Results & Data Results & Data Vital Signs (Past 12 Hours) Vital Signs Temp Pulse Resp BP Pulse Ox O2 Del Method 01/30/24 14:23 36.7 C 60 16 154/48 H 93 Room Air 01/30/24 07:09 36.3 C L 67 18 156/87 H 96 Room Air all noted and reviewed including below (1) UTI (urinary tract infection) Encounter type: initial encounter Indwelling urinary catheter type: indwelling urethral catheter Urinary tract infection type: catheter-associated UTI Qualified Code(s): T83.511A - Infection and inflammatory reaction due to indwelling urethral catheter, initial encounter; N39.0 - Urinary tract infection, site not specified
[2024-01-30] MEDS: PANTOprazole 40 MG in SYRINGE 0 ML IV SCH (17:27)
[2024-01-31] MEDS: NITROGLYCERIN SL 0.4 MG/TAB TAB SL STA (06:18)
[2024-01-31 07:18] LABS: BUN Creatinine Ratio 14.8 (10-20); Calcium 7.8 mg/dl (8.6-10.3); Creatinine Clr Calc Pharmacy 78.6 ml/min; Est GFR (African American) 102.2 ml/min; Est GFR (Non-African American) 88.2 ml/min; Magnesium 1.2 mg/dl (1.7-2.4); Potassium 3.7 mmol/L (3.5-5.1)
[2024-01-31 07:21] LABS: Troponin I High Sensitivity 7.2 pg/ml (0-20)
[2024-01-31 07:24] LABS: INR 2.5 (0.9-1.1); Prothrombin Time 25.1 Seconds (9.0-12.0)
[2024-01-31 08:58] LABS: Albumin Level 3.1 gm/dl (3.4-5.0)
[2024-01-31] MEDS: MAGNESIUM SULFATE / D5W 1 GM/100 ML BAG IV SCH (09:04)
[2024-01-31] MEDS: cefTRIAXone SODIUM 2,000 MG/50 ML BAG IV SCH (10:30)
--- NOTE | 2024-01-31 10:33 | Surgery Progress Note ---
Date of Service January 31, 2024 Assessment & Plan (1) Cholelithiasis: Plan: Pt report abd tenderness lower pubic region U/S showing cholelithiasis no evidence for acute cholecystitis will order a HIDA for tomorrow no acute surgical intervention indicated at this time GI following Admission and Anticipated Discharge Date Admission Date: January 29, 2024 Supervising Physician Co-Signing Physician Notes I have seen and examined this patient with the surgical STOCKROOM SUPERVISOR. I agree with this plan. Patient has consistently verbally c/o mid back pain when asked about pain and this am he c/o eye burning. With palpation, he consistently indicates suprapubic pain to us when we palpate his abdomen. Both mornings we have seen him, he has been eating breakfast without complaining of nausea. This all seems contrary to what we are seeing in medicine's notes. He remains without leukocytosis, toxicity or any evidence for acute shanice or ongoing biliary colic without TTP RUQ. If there is concern, may obtain HIDA. Will have to be tomorrow after NPO as patient is eating this am. Subjective pt tolerating breakfast no n.v Review of Systems Gastrointestinal: + abdominal pain (lower pubic area ) Physical Exam Gastrointestinal (Abdomen): Inspection/Auscultation: abdomen not distended Percussion/Palpation: + abdomen tender (lower pubic area ) and abdomen soft Results & Data Vital Signs (Past 12 Hours) Vital Signs Temp Pulse Resp BP Pulse Ox O2 Del Method 01/31/24 08:00 98.4 F 59 L 16 134/65 97 Room Air 01/31/24 06:18 98.4 F 61 16 155/75 H 97 Room Air 01/31/24 05:36 98.1 F 64 18 143/68 H 96 Room Air PG Care Time/CCT Total # of Minutes Spent Total Time Spent with Patient: Total time spent is greater than 50% in coordination of care (as documented) at patient's floor/unit and/or counseling patient: Coding Level of Care Code 32294 SUB INP/OBS CARE 06/07MIN Diagnoses Cholelithiasis K80.20
[2024-01-31] MEDS: MAGNESIUM CHLORIDE W/CALCIUM 64MG DELAYED REL TAB PO SCH (10:36)
--- NOTE | 2024-01-31 10:49 | Gastrointestinal Consultation ---
Date of Consultation January 31, 2024 Assessment & Plan (1) Abnormal weight loss: (2) Abdominal pain: Plan -Agree with addition of Protonix 40 mg BID -INR to be addressed by primary team; if reversed, plan for EGD 01/31. Keep NPO after midnight. Supervising Physician Co-Signing Physician Notes I saw and examined this patient with our nurse practitioner and agree with her assessment and plan. Will proceed with endoscopy tomorrow if INR close to 1.5 after administration of vitamin K. Await results of HIDA scan. History of Present Illness Reason for Consultation: Epigastric pain, nausea, weight loss Attending Physician: Norris Siegel MD History of Present Illness Patient is a 73 yo male hospitalized due to several medical issues. GI has been consulted due to progressive nausea, epigastric discomfort, unintentional weight loss, & poor po intake. The patient was scheduled with [facility] for an EGD & colonoscopy to evaluate these ongoing issues. He has a history of cholelithiasis and has seen general surgery at [facility] for this in July 2023. No plans for surgical intervention at that time. It does appear the hospitalists placed a consult to [facility] general surgery for a second opinion. From a GI standpoint, he is not currently on a PPI at home. He takes Coumadin & INR was 2.5 today. He notes nausea & decreased appetite in addition to his epigastric pain, but denies melena, hematemesis. He gets heartburn from trigger foods like red sauce or tacos. No history of PUD. No history of EGD in the past. denies issues with his previous colonoscopies. LFTs are unremarkable. GB US shows cholelithiasis. CT abdomen/pelvis was performed, unfortunately without oral contrast and indicated the following: IMPRESSION: 1. Nonspecific wall thickening of the ascending and proximal transverse colon. Correlate clinically to exclude colitis. 2. No bowel obstruction or pneumoperitoneum. 3. Bilateral nephrolithiasis with a 1.7 cm calculus in the right UPJ. No associated obstructive uropathy. 4. Indeterminate bilateral renal lesions could be evaluated with follow-up nonemergent renal ultrasound. 5. Cholelithiasis. 6. Prostatomegaly with evidence of chronic bladder outlet obstruction. 7. Colonic diverticulosis. Allergies Allergy/AdvReac Type Severity Reaction Status Date / Time No Known Allergies Allergy Unverified 08/12/18 17:06 Home Medications Medication Instructions Recorded Confirmed Type atorvastatin 40 mg tablet 40 mg PO DAILY 08/12/18 01/29/24 History duloxetine 30 mg capsule,delayed 60 mg PO DAILY 08/12/18 01/29/24 History release metformin 1,000 mg tablet 1,000 mg PO BIDM 08/12/18 01/29/24 History tamsulosin 0.4 mg capsule (Flomax) 0.4 mg PO QPM 08/12/18 01/29/24 History cholecalciferol (vitamin D3) 10 10 mcg PO DAILY 01/29/24 01/29/24 History mcg (400 unit) tablet cinacalcet 30 mg tablet 30 mg PO DAILY 01/29/24 01/29/24 History ferrous sulfate 325 mg (65 mg 325 mg PO HS 01/29/24 01/29/24 History iron) tablet finasteride 5 mg tablet 5 mg PO DAILY 01/29/24 01/29/24 History fludrocortisone 0.1 mg tablet 0.1 mg PO DAILY 01/29/24 01/29/24 History glipizide 2.5 mg tablet, extended 2.5 mg PO DAILY 01/29/24 01/29/24 History release 24 hr metoprolol succinate 25 mg 12.5 mg PO BID 01/29/24 01/29/24 History tablet,extended release 24 hr omeprazole 20 mg capsule,delayed 20 mg PO DAILY 01/29/24 01/29/24 History release warfarin 5 mg tablet 5 mg PO DAILY 01/29/24 01/29/24 History Patient History Medical History Nephrolithiasis History of pulmonary embolism History of DVT (deep vein thrombosis) History of Hodgkin's disease BPH (benign prostatic hyperplasia) Orthostatic hypotension HTN (hypertension) Hyperparathyroidism DM type 2 (diabetes mellitus, type 2) Cord compression 2018 - due to trauma (fall down stairs) Surgical History Status post cervical spinal fusion History of laminectomy Social History Smoking Status: Never smoker Hx Alcohol Use: No Hx Substance Use: No Preferred Language: Hungarian Communication Ability: Effective Director Of Business Systems Required: No Beliefs That Will Affect Care: None Current Living Situation: Spouse Other Information That Helps Us Care for You: No Feels Safe at Home: Yes Safety Concerns: Feels Safe At This Time Assistive Devices: Walker and Wheelchair Review of Systems Constitutional: + weight loss Respiratory: no cough and no dyspnea Gastrointestinal: + abdominal pain, + early satiety and + nausea; no coffee ground emesis, no hematemesis, no dysphagia, no constipation, no blood in stools and no melena Psychiatric: no problem reported Physical Exam Constitutional: well developed Respiratory: normal respiratory effort Gastrointestinal (Abdomen): normal bowel sounds, soft, nontender, no hepatosplenomegaly Psychiatric: Orientation: alert and oriented x 3 Results & Data Vital Signs (Past 12 Hours) Vital Signs Temp Pulse Resp BP Pulse Ox O2 Del Method 01/31/24 08:00 36.9 C 59 L 16 134/65 97 Room Air 01/31/24 06:18 36.9 C 61 16 155/75 H 97 Room Air 01/31/24 05:36 36.7 C 64 18 143/68 H 96 Room Air PG Care Time/CCT Total # of Minutes Spent Total Time Spent with Patient: Total time spent is greater than 50% in coordination of care (as documented) at patient's floor/unit and/or counseling patient: Coding Level of Care Code 66194 INT INP/OBS CARE 3/75MIN Diagnoses Abnormal weight loss R63.4 Abdominal pain R10.84 Abdominal location: generalized (2) Abdominal pain Abdominal location: generalized Qualified Code(s): R10.84 - Generalized abdominal pain
[2024-01-31] MEDS: NSS + 20MEQ KCL 20 MEQ/1,000 ML BAG IV SCH (11:24)
--- NOTE | 2024-01-31 12:13 | Electrocardiogram Report ---
Test Reason : Blood Pressure : */* mmHG Vent. Rate : 63 BPM Atrial Rate : 234 BPM P-R Int : * ms QRS Dur : 112 ms QT Int : 450 ms P-R-T Axes : * 30 6 degrees QTcB Int : 460 ms Poor data quality, interpretation may be adversely affected Sinus rhythm Normal ECG When compared with ECG of 29-Jan-2024 12:20, No significant change Confirmed by Troy Wellington ([id number]) on 01/31/2024 12:12:47 PM Referred By: REFERRED SELF Confirmed By: Troy Wellington
[2024-01-31] MEDS: PHYTONADIONE 10 MG in DEXTROSE 5% 50 ML IV ONE (12:32)
--- NOTE | 2024-01-31 13:51 | Psychiatric Consultation ---
Date of Consultation January 31, 2024 Impression / Recommendations Impression This is a 73 yo man with a history of depression admitted medically. Diagnostically consistent with adjustment disorder with depressed mood in context of ongoing medical challenges. Acute risk of self-harm is low given denial of SI. Sodium is normal and no evidence of prolonged QTc. Given limited benefit from duloxetine and no prior psychiatric medication trials consider cross-taper to SSRI as this also tends to be better tolerated in those over age 65. Additionally would consider mirtazapine for sleep and appetite benefits and may help with some of his stomach pain issues. Overall, I spent a total of 60 minutes with this case including review of chart records, review of labwork, review of EKG QTc, direct evaluation of the patient at bedside, counseling the patient, discussion of the patient with the nurse, with the hospitalist provider, discussion with the psychiatric liason during clinical rounds, review of collateral historian information from the family and documentation in the electronic health record. (1) Adjustment disorder with depressed mood: (2) Abdominal pain: Abdominal location: generalized Qualified Code(s): R10.84 - Generalized abdominal pain (3) Ambulatory dysfunction: Plan -Start mirtazapine 7.5mg HS and can then titrate to 15mg HS after 2-4 weeks if helpful but further effects desired for depression, appetite stimulation -Would reduce duloxetine to 40mg qd for 5 days then to 20mg for 5 days and then discontinue -Would start sertraline 25mg daily for 2 weeks and then increase to 50mg daily if tolerated for depression Psych History Identifying Data Lewis Alarcon is a 73 yo man with a history of fall, small vessel ischemic changes on brain imaging vs report of past CVA from intracerebral hemorrhage following a serious fall , DM type II, hyperparathyroidism, HTN, orthostatic hypotension, BPH with urinary retention and Chaparro catheter in place, depression, history of Hodgkin's disease, history of DVT and PE anticoagulated on Coumadin, 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 Psychiatry consulted for concern for worsening depression. Chief Complaint "Maybe a little". History of Present Illness Lewis was admitted for worsening stomach issues, pain and weakness. He is joined by his at bedside. He reports his mood has been "okay" but admits to feeling a little depressed. He has a history of depression and is currently taking duloxetine which he and his are unsure if it is working effectively, she does not feel it's offered any benefits nor for pain. He denies having thoughts of wanting to go to sleep and not wake up or thoughts of active suicide. reports he has been more depressed lately, as he is usually more humorous. He has been experiencing stomach issues, which have affected his appetite and ability to eat. He has lost weight and has difficulty keeping food down. mentions he has not been sleeping as well as he used to and has lost interest in activities he previously enjoyed, such as watching TV, including his favorite soap operas. He has also become weaker and less mobile, as he no longer walks around much at home and has not regained his strength after a fall in August. Wi fe reports he has been saying, "I can't take this any longer," indicating his frustration with his ongoing health issues. His mobility has been significantly impacted, as he can't raise his arms very high and needs assistance walking. He previously enjoyed activities like going to car shows, which he can no longer do. Allergies Allergy/AdvReac Type Severity Reaction Status Date / Time No Known Allergies Allergy Unverified 08/12/18 17:06 Home Medications Medication Instructions Recorded Confirmed Type atorvastatin 40 mg tablet 40 mg PO DAILY 08/12/18 01/29/24 History duloxetine 30 mg capsule,delayed 60 mg PO DAILY 08/12/18 01/29/24 History release metformin 1,000 mg tablet 1,000 mg PO BIDM 08/12/18 01/29/24 History tamsulosin 0.4 mg capsule (Flomax) 0.4 mg PO QPM 08/12/18 01/29/24 History cholecalciferol (vitamin D3) 10 10 mcg PO DAILY 01/29/24 01/29/24 History mcg (400 unit) tablet cinacalcet 30 mg tablet 30 mg PO DAILY 01/29/24 01/29/24 History ferrous sulfate 325 mg (65 mg 325 mg PO HS 01/29/24 01/29/24 History iron) tablet finasteride 5 mg tablet 5 mg PO DAILY 01/29/24 01/29/24 History fludrocortisone 0.1 mg tablet 0.1 mg PO DAILY 01/29/24 01/29/24 History glipizide 2.5 mg tablet, extended 2.5 mg PO DAILY 01/29/24 01/29/24 History release 24 hr metoprolol succinate 25 mg 12.5 mg PO BID 01/29/24 01/29/24 History tablet,extended release 24 hr omeprazole 20 mg capsule,delayed 20 mg PO DAILY 01/29/24 01/29/24 History release warfarin 5 mg tablet 5 mg PO DAILY 01/29/24 01/29/24 History Patient History Medical History Nephrolithiasis History of pulmonary embolism History of DVT (deep vein thrombosis) History of Hodgkin's disease BPH (benign prostatic hyperplasia) Orthostatic hypotension HTN (hypertension) Hyperparathyroidism DM type 2 (diabetes mellitus, type 2) Cord compression 2019 - due to trauma (fall down stairs) Surgical History Status post cervical spinal fusion History of laminectomy Social History Smoking Status: Never smoker Hx Alcohol Use: No Hx Substance Use: No Preferred Language: Maori Communication Ability: Effective 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 Beliefs That Will Affect Care: None Current Living Situation: Spouse Other Information That Helps Us Care for You: No Feels Safe at Home: Yes Safety Concerns: Feels Safe At This Time Assistive Devices: Walker and Wheelchair Physical Exam Psychiatric: Orientation: alert, oriented to person, oriented to place and cooperative Apperance: appropriately dressed and appropriately groomed Eye Contact: + fair eye contact Motor Behavior: no abnormal motor movements Speech: normal rate/rhythm/volume of speech Affect: + flat affect Mood: + depressed mood Thought Process: goal directed thought process and + concrete thought process Thought Content: reality based without delusions Suicidal Thoughts: denies suicidal thoughts Insight: + fair insight Vital Signs (Past 24 Hours): Last Vital Signs Temp 36.9 C 01/31/24 08:00 Pulse 59 L 01/31/24 08:00 Resp 16 01/31/24 08:00 BP 122/65 01/31/24 13:29 Pulse Ox 97 01/31/24 08:00 O2 Del Method Room Air 01/31/24 08:00 Results & Data (PSY) Medications Administered Acetaminophen (Acetaminophen 325 Mg Tab) 650 mg PO Q4H PRN PRN Reason: pain/fever Stop: 02/28/24 19:59 Last Admin: 01/30/24 07:12 Dose: 650 mg Documented By: NAMAN Atorvastatin Calcium (Atorvastatin 40 Mg Tab) 40 mg PO DAILY ANKIT Stop: 02/29/24 08:59 Last Admin: 01/31/24 09:09 Dose: 40 mg Documented By: Admin: 01/30/24 07:08 Dose: 40 mg Documented By: NAMAN Cinacalcet (Cinacalcet Hcl 30 Mg Tab) 30 mg PO DAILY ANKIT Stop: 02/29/24 08:59 Last Admin: 01/31/24 09:10 Dose: 30 mg Documented By: Admin: 01/30/24 07:08 Dose: 30 mg Documented By: NAMAN Duloxetine HCl (Duloxetine Hcl 60 Mg Cap) 60 mg PO DAILY ANKIT Stop: 02/29/24 08:59 Last Admin: 01/31/24 09:12 Dose: 60 mg Documented By: Admin: 01/30/24 07:07 Dose: 60 mg Documented By: NAMAN Ferrous Sulfate (Ferrous Sulfate 325 Mg Tab) 325 mg PO HS ANKIT Stop: 02/28/24 20:59 Last Admin: 01/30/24 20:13 Dose: 325 mg Documented By: Admin: 01/29/24 20:26 Dose: 325 mg Documented By: KATHY Finasteride (Finasteride 5 Mg Tab) 5 mg PO DAILY ANKIT Stop: 02/29/24 08:59 Last Admin: 01/31/24 09:11 Dose: 5 mg Documented By: Admin: 01/30/24 07:07 Dose: 5 mg Documented By: NAMAN Fludrocortisone Acetate (Fludrocortisone Acetate 0.1 Mg Tab) 0.1 mg PO DAILY ANKIT Stop: 02/29/24 08:59 Last Admin: 01/31/24 09:11 Dose: 0.1 mg Documented By: Admin: 01/30/24 07:07 Dose: 0.1 mg Documented By: NAMAN Pantoprazole Sodium 40 mg/ (Syringe) 10 mls @ 5 mls/min IV BID ANKIT Stop: 02/29/24 17:59 Last Admin: 01/31/24 10:26 Dose: 5 mls/min Documented By: Admin: 01/30/24 17:27 Dose: 5 mls/min Documented By: NAMAN Magnesium Sulfate/Dextrose (Magnesium Sulfate / D5w) 1 gm in 100 mls @ 50 mls/hr IV Q2H [facility] Stop: 01/31/24 15:29 Last Admin: 01/31/24 13:05 Dose: 50 mls/hr Documented By: Infusion: 01/31/24 12:50 Dose: Infused Documented By: Admin: 01/31/24 10:50 Dose: 50 mls/hr Documented By: Infusion: 01/31/24 10:50 Dose: Infused Documented By: Admin: 01/31/24 09:04 Dose: 50 mls/hr Documented By: SANDI Ceftriaxone Sodium (Rocephin) 2,000 mg in 50 mls @ 100 mls/hr IV Q24H [facility] Stop: 02/10/24 07:59 Last Infusion: 01/31/24 11:00 Dose: Infused Documented By: Admin: 01/31/24 10:30 Dose: 100 mls/hr Documented By: SANDI Potassium Chloride/Sodium Chloride (Normal Saline W/20 Meq Kcl) 20 meq in 1,000 mls @ 80 mls/hr IV .[id number] [facility] Stop: 03/01/24 10:29 Last Admin: 01/31/24 11:24 Dose: 80 mls/hr Documented By: SANDI Insulin Aspart (Insulin Aspart Per Unit Charge) 0 units SC ACHS [facility] Stop: 02/28/24 20:59 Last Admin: 01/31/24 12:03 Dose: 1 units Documented By: SANDI Co-signed By: TABBY Admin: 01/31/24 08:25 Dose: Not Given Documented By: Admin: 01/30/24 20:45 Dose: Not Given Documented By: KATHY Co-signed By: PEREZ Admin: 01/30/24 17:21 Dose: Not Given Documented By: Admin: 01/30/24 12:30 Dose: 2 units Documented By: NAMAN Co-signed By: SANDI Admin: 01/30/24 08:16 Dose: Not Given Documented By: Admin: 01/29/24 20:36 Dose: Not Given Documented By: KATHY Co-signed By: RIZWAN Magnesium Chloride (Magnesium Chloride W/Calcium 64mg Delayed Rel Tab) 64 mg PO QAM ANKIT Stop: 03/01/24 08:59 Last Admin: 01/31/24 10:36 Dose: 64 mg Documented By: SANDI Metoprolol Succinate (Metoprolol Succ 25mg Ext Rel Tab) 12.5 mg PO BID ANKIT Stop: 02/28/24 20:59 Last Admin: 01/31/24 09:10 Dose: 12.5 mg Documented By: Admin: 01/30/24 20:12 Dose: 12.5 mg Documented By: Admin: 01/30/24 07:08 Dose: 12.5 mg Documented By: Admin: 01/29/24 20:26 Dose: 12.5 mg Documented By: KATHY Tamsulosin HCl (Tamsulosin Hcl 0.4 Mg Cap) 0.4 mg PO QPM ANKIT Stop: 02/28/24 20:59 Last Admin: 01/30/24 20:12 Dose: 0.4 mg Documented By: Admin: 01/29/24 20:26 Dose: 0.4 mg Documented By: KATHY Vitamin D (Cholecalciferol 10 Mcg (400 Units) Tab) 10 mcg PO DAILY ANKIT Stop: 02/29/24 08:59 Last Admin: 01/31/24 09:11 Dose: 10 mcg Documented By: Admin: 01/30/24 07:08 Dose: 10 mcg Documented By: NAMAN Coding Level of Care Code 71557 IN/OBS CONSULT LVL 4,60M Diagnoses Adjustment disorder with depressed mood F43.21 Abdominal pain R10.84 Abdominal location: generalized Ambulatory dysfunction R26.2
--- NOTE | 2024-01-31 14:42 | Electrocardiogram Report ---
Test Reason : Blood Pressure : */* mmHG Vent. Rate : 57 BPM Atrial Rate : 57 BPM P-R Int : 174 ms QRS Dur : 106 ms QT Int : 448 ms P-R-T Axes : 47 10 37 degrees QTcB Int : 436 ms Sinus bradycardia Normal ECG When compared with ECG of 31-Jan-2024 06:05, No significant change Confirmed by Troy Wellington ([id number]) on 01/31/2024 2:42:02 PM Referred By: REFERRED SELF Confirmed By: Troy Wellington
--- NOTE | 2024-01-31 14:42 | Nuclear Medicine Report ---
NM hepatobiliary CLINICAL HISTORY: 73 years-old Male with r/o acute cholecystitis. Acute right upper quadrant abdomin al pain TECHNIQUE: Sequential anterior abdominal images were obtained through 60 minutes following the intra venous administration of 4.9 mCi of technetium-99m Choletec. COMPARISON: CT 01/29/2024 FINDINGS: There is prompt, uniform accumulation of the tracer by the liver. There is normal filling of the int rahepatic ducts, common bile duct and normal excretion of the tracer into the duodenum. The gallblad michael fills normally. IMPRESSION: Normal hepatobiliary study. No scintigraphic evidence for acute cholecystitis or common bile duct obstruction. ACT 112: Negative or not required by law. The above report was generated using voice recognition software. It may contain grammatical, syntax o r spelling errors. Electronically signed by: Hayden Omalley M.D. 01/31/2024 2:41 PM
--- NOTE | 2024-01-31 15:30 | Infectious Disease Consult ---
Date of Service January 31, 2024 Telehealth Information I performed this visit using a real-time telehealth connection between my location and the patients location ([facility]). After connecting through interactive tele-video, patient was identified by name and date of and/or wristband check.Patient (or authorized healthcare client representative) was informed that this was a telemedicine visit and it was being conducted confidentially over secure lines. My office door was closed and no one else was present in the room with me.Patient (or authorized healthcare client representative) provided consent to proceed with the visit, expressed an understanding of privacy and security of the telemedicine visit, and gave permission to have a hospital client representative in the room in order to assist with the visit and to conduct portions of the visit, as needed. I informed the patient (or authorized healthcare client representative) that I reviewed their record and presented the opportunity for them to ask any questions regarding the visit today. The patient agreed to participate. Assessment & Plan (1) UTI (urinary tract infection): (2) Urinary retention: (3) Generalized weakness: (4) Ambulatory dysfunction: (5) Chronic indwelling Chaparro catheter: (6) Abdominal pain: Plan Assessment: 73 yo M with PMHx as shown below with chronic indwelling catheter for BPH presents to [facility] on 01/29/2024 with general weakness, nausea/vomiting, and abd pain. Per notes and chart review, pt presented to [facility] ED yesterday for these complaints. Patient was diagnosed with a UTI and discharged on Augmentin. Urine culture from [facility] growing E. Coli, sensitivities pending. Previous urine cultures have grown Klebsiella. Pt was started on IV ceftriaxone, follow urine culture. Patient is scheduled for cysto on 02/[address] Nikolai Chaudhari. Consult to [facility] urology placed. Currently afebrile, no leukocytosis. Urine culture (+) GNR. Plan: - Recommend switching from Ceftriaxone 2q q24 to Ceftriaxone 1g q24 IV for now. - Recommend 10-14 days of total antibiotics, please wait for urine culture ID and susceptibilities prior to determining final regimen. - we will not actively monitor patient nor follow-up. please contact ID for continued recommendations or questions. thank you for you consult. History of Present Illness History of Present Illness Reason for consult: Recurrent UTI 73 yo M with PMHx as shown below with chronic indwelling catheter for BPH presents to [facility] on 01/29/2024 with general weakness, nausea/vomiting, and abd pain. Per notes and chart review, pt presented to [facility] ED yesterday for these complaints. Patient was diagnosed with a UTI and discharged on Augmentin. Urine culture from [facility] growing E. Coli, sensitivities pending. Previous urine cultures have grown Klebsiella. Pt was started on IV ceftriaxone, follow urine culture. Patient is scheduled for cysto on 02/[address] Nikolai Chaudhari. Consult to [facility] urology placed. Currently afebrile, no leukocytosis ID consulted for evaluation and management. Allergies Allergy/AdvReac Type Severity Reaction Status Date / Time No Known Allergies Allergy Unverified 08/12/18 17:06 Home Medications Medication Instructions Recorded Confirmed Type atorvastatin 40 mg tablet 40 mg PO DAILY 08/12/18 01/29/24 History duloxetine 30 mg capsule,delayed 60 mg PO DAILY 08/12/18 01/29/24 History release metformin 1,000 mg tablet 1,000 mg PO BIDM 08/12/18 01/29/24 History tamsulosin 0.4 mg capsule (Flomax) 0.4 mg PO QPM 08/12/18 01/29/24 History cholecalciferol (vitamin D3) 10 10 mcg PO DAILY 01/29/24 01/29/24 History mcg (400 unit) tablet cinacalcet 30 mg tablet 30 mg PO DAILY 01/29/24 01/29/24 History ferrous sulfate 325 mg (65 mg 325 mg PO HS 01/29/24 01/29/24 History iron) tablet finasteride 5 mg tablet 5 mg PO DAILY 01/29/24 01/29/24 History fludrocortisone 0.1 mg tablet 0.1 mg PO DAILY 01/29/24 01/29/24 History glipizide 2.5 mg tablet, extended 2.5 mg PO DAILY 01/29/24 01/29/24 History release 24 hr metoprolol succinate 25 mg 12.5 mg PO BID 01/29/24 01/29/24 History tablet,extended release 24 hr omeprazole 20 mg capsule,delayed 20 mg PO DAILY 01/29/24 01/29/24 History release warfarin 5 mg tablet 5 mg PO DAILY 01/29/24 01/29/24 History Patient History Medical History Nephrolithiasis History of pulmonary embolism History of DVT (deep vein thrombosis) History of Hodgkin's disease BPH (benign prostatic hyperplasia) Orthostatic hypotension HTN (hypertension) Hyperparathyroidism DM type 2 (diabetes mellitus, type 2) Cord compression 2019 - due to trauma (fall down stairs) Surgical History Status post cervical spinal fusion History of laminectomy Social History Smoking Status: Never smoker Hx Alcohol Use: No Hx Substance Use: No Preferred Language: Macedonian Communication Ability: Effective 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 Beliefs That Will Affect Care: None Current Living Situation: Spouse Other Information That Helps Us Care for You: No Feels Safe at Home: Yes Safety Concerns: Feels Safe At This Time Assistive Devices: Walker and Wheelchair Results & Data Vital Signs (Past 12 Hours) Vital Signs Temp Pulse Resp BP BP Pulse Ox O2 Del Method 01/31/24 13:29 122/65 01/31/24 13:27 104/52 L 01/31/24 13:25 133/70 01/31/24 08:00 36.9 C 59 L 16 134/65 97 Room Air 01/31/24 06:18 36.9 C 61 16 155/75 H 97 Room Air 01/31/24 05:36 36.7 C 64 18 143/68 H 96 Room Air Laboratory Results 01/29/24 Unknown Urine Culture - Preliminary Urine,Indwelling Cath Gram negative bacilli 01/31/24 01/31/24 01/31/24 11:26 09:06 07:31 PT INR Sodium Potassium Chloride Carbon Dioxide Anion Gap BUN Creatinine Est Cr Clr Drug Dosing Est GFR ( Amer) Est GFR (Non-Af Amer) BUN/Creatinine Ratio Glucose POC Glucose 149 H 79 Calcium Magnesium Troponin I High Sens 4.8 Albumin Random Cortisol 01/31/24 01/30/24 01/30/24 06:43 20:38 16:24 PT 25.1 H INR 2.5 H Sodium 138 Potassium 3.7 Chloride 104 Carbon Dioxide 25 Anion Gap 9 BUN 12 Creatinine 0.81 Est Cr Clr Drug Dosing 78.6 Est GFR ( Amer) 102.2 Est GFR (Non-Af Amer) 88.2 BUN/Creatinine Ratio 14.8 Glucose 83 POC Glucose 97 113 H Calcium 7.8 L Magnesium 1.2 L Troponin I High Sens 7.2 Albumin 3.1 L Random Cortisol 13.57 Diagnostic Findings Hepatobiliary Scan Nuclear Medicine 01/31/24 07:00 NM hepatobiliary CLINICAL HISTORY: 73 years-old Male with r/o acute cholecystitis. Acute right upper quadrant abdominal pain TECHNIQUE: Sequential anterior abdominal images were obtained through 60 minutes following the intravenous administration of 4.9 mCi of technetium-99m Choletec. COMPARISON: CT 01/29/2024 FINDINGS: There is prompt, uniform accumulation of the tracer by the liver. There is normal filling of the intrahepatic ducts, common bile duct and normal excretion of the tracer into the duodenum. The gallbladder fills normally. IMPRESSION: Normal hepatobiliary study. No scintigraphic evidence for acute cholecystitis or common bile duct obstruction. ACT 112: Negative or not required by law. The above report was generated using voice recognition software. It may contain grammatical, syntax or spelling errors. Electronically signed by: Hayden Omalley M.D. 01/31/2024 2:41 PM Medications Administered Home Medications Medication Instructions Recorded Confirmed Last Taken atorvastatin 40 mg tablet 40 mg PO DAILY 08/12/18 01/29/24 08/12/18 10:00 duloxetine 30 mg capsule,delayed 60 mg PO DAILY 08/12/18 01/29/24 08/12/18 release metformin 1,000 mg tablet 1,000 mg PO BIDM 08/12/18 01/29/24 08/12/18 09:00 tamsulosin 0.4 mg capsule (Flomax) 0.4 mg PO QPM 08/12/18 01/29/24 08/11/18 cholecalciferol (vitamin D3) 10 10 mcg PO DAILY 01/29/24 01/29/24 Unknown mcg (400 unit) tablet cinacalcet 30 mg tablet 30 mg PO DAILY 01/29/24 01/29/24 Unknown ferrous sulfate 325 mg (65 mg 325 mg PO HS 01/29/24 01/29/24 Unknown iron) tablet finasteride 5 mg tablet 5 mg PO DAILY 01/29/24 01/29/24 Unknown fludrocortisone 0.1 mg tablet 0.1 mg PO DAILY 01/29/24 01/29/24 Unknown glipizide 2.5 mg tablet, extended 2.5 mg PO DAILY 01/29/24 01/29/24 Unknown release 24 hr metoprolol succinate 25 mg 12.5 mg PO BID 01/29/24 01/29/24 Unknown tablet,extended release 24 hr omeprazole 20 mg capsule,delayed 20 mg PO DAILY 01/29/24 01/29/24 Unknown release warfarin 5 mg tablet 5 mg PO DAILY 01/29/24 01/29/24 Unknown Active Medications Generic Name Dose Route Start Last Admin Trade Name Jordin PRN Reason Stop Dose Admin Acetaminophen 650 mg 01/29/24 20:00 01/31/24 14:37 Acetaminophen 325 Mg Tab PO 02/28/24 19:59 650 mg Q4H PRN Administration pain/fever Atorvastatin Calcium 40 mg 01/30/24 09:00 01/31/24 09:09 Atorvastatin 40 Mg Tab PO 02/29/24 08:59 40 mg DAILY ANKIT Administration Cinacalcet 30 mg 01/30/24 09:00 01/31/24 09:10 Cinacalcet Hcl 30 Mg Tab PO 02/29/24 08:59 30 mg DAILY ANKIT Administration Duloxetine HCl 60 mg 01/30/24 09:00 01/31/24 09:12 Duloxetine Hcl 60 Mg Cap PO 02/29/24 08:59 60 mg DAILY ANKIT Administration Ferrous Sulfate 325 mg 01/29/24 21:00 01/30/24 20:13 Ferrous Sulfate 325 Mg Tab PO 02/28/24 20:59 325 mg HS ANKIT Administration Finasteride 5 mg 01/30/24 09:00 01/31/24 09:11 Finasteride 5 Mg Tab PO 02/29/24 08:59 5 mg DAILY ANKIT Administration Fludrocortisone Acetate 0.1 mg 01/30/24 09:00 01/31/24 09:11 Fludrocortisone Acetate 0.1 Mg Tab PO 02/29/24 08:59 0.1 mg DAILY ANKIT Administration Pantoprazole Sodium 40 mg/ 10 mls @ 5 mls/min 01/30/24 18:00 01/31/24 10:26 Syringe IV 02/29/24 17:59 5 mls/min BID ANKIT Administration Ceftriaxone Sodium 2,000 mg in 50 mls @ 100 mls/hr 01/31/24 08:00 01/31/24 11:00 Rocephin IV 02/10/24 07:59 Infused Q24H ANKIT Infusion Potassium Chloride/Sodium Chloride 20 meq in 1,000 mls @ 80 mls/hr 01/31/24 10:30 01/31/24 11:24 Normal Saline W/20 Meq Kcl IV 03/01/24 10:29 80 mls/hr .[id number] ANKIT Administration Insulin Aspart 0 units 01/29/24 21:00 01/31/24 12:03 Insulin Aspart Per Unit Charge SC 02/28/24 20:59 1 units ACHS ANKIT Administration Magnesium Chloride 64 mg 01/31/24 09:00 01/31/24 10:36 Magnesium Chloride W/Calcium 64mg Delayed Rel Tab PO 03/01/24 08:59 64 mg QAM ANKIT Administration Metoprolol Succinate 12.5 mg 01/29/24 21:00 01/31/24 09:10 Metoprolol Succ 25mg Ext Rel Tab PO 02/28/24 20:59 12.5 mg BID ANKIT Administration Tamsulosin HCl 0.4 mg 01/29/24 21:00 01/30/24 20:12 Tamsulosin Hcl 0.4 Mg Cap PO 02/28/24 20:59 0.4 mg QPM ANKIT Administration Vitamin D 10 mcg 01/30/24 09:00 01/31/24 09:11 Cholecalciferol 10 Mcg (400 Units) Tab PO 02/29/24 08:59 10 mcg DAILY ANKIT Administration (1) UTI (urinary tract infection) Encounter type: initial encounter Indwelling urinary catheter type: indwelling urethral catheter Urinary tract infection type: catheter-associated UTI Qualified Code(s): T83.511A - Infection and inflammatory reaction due to indwelling urethral catheter, initial encounter; N39.0 - Urinary tract infection, site not specified (6) Abdominal pain Abdominal location: generalized Qualified Code(s): R10.84 - Generalized abdominal pain
--- NOTE | 2024-01-31 17:29 | Hospitalist Progress Note ---
Date of Service January 31, 2024 Assessment & Plan (1) UTI (urinary tract infection): (2) BPH (benign prostatic hyperplasia): (3) Urinary retention: (4) Generalized weakness: (5) Ambulatory dysfunction: Plan: per previous admitting service notes with addendum: Admit to med/surg Patient presenting from home for evaluation of generalized weakness and ambulatory dysfunction. Patient recently admitted to [facility] 01/08 through 01/13 for near syncope and orthostatic hypotension. Patient's midodrine was increased and patient was discharged to [facility] for rehab. Since September of this year, patient has had recurrent urinary tract infections. Patient was discharged from [facility] on 01/25. Since arriving home, patient has been generally weak and unable to ambulate. states she has been placing him in a wheelchair at home. Patient was seen at [facility] ED yesterday for these complaints. Patient was diagnosed with a UTI and discharged on Augmentin. Urine culture from [facility] growing E. Coli, sensitivities pending. Previous urine cultures have grown Klebsiella Start IV ceftriaxone, follow urine culture Patient with history of BPH with chronic urinary retention Chaparro catheter in place, Chaparro was exchanged at [facility] ED yesterday. Patient is scheduled for cysto on 02/[address] Nikolai Chaudhari. Patient and requesting second opinion. Consult to [facility] urology placed. Currently afebrile, no leukocytosis Noted that while at [facility], patient's midodrine was changed to fludrocortisone. 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 This may be contributing to patient's worsening weakness. PT/OT, may need placement 01/30 Improving from the UTI standpoint Continue IV ceftriaxone, will follow-up outpatient sensitivities Abdominal pain, r/o PUD Concerning in light of associated symptoms including nausea, poor oral intake, weight loss GI service consulted Plan for EGD once INR is 1.5 and below Hold Coumadin Protonix 40 mg IV started 01/[address] Reynoso Vit k 10mg IV given in an effort to lower INR < 1.5 tomorrow for EGD tomorrow (6) Cholelithiasis: Plan: Patient reporting post prandial nausea for the past several months. Has been unable to eat and loosing weight. Was seen by [facility] general surgery in July for cholelithiasis. Cholecystectomy not advised at that time. Patient and requesting second opinion. Consult placed to [facility] general surgery. 01/30 Denies right upper quadrant pain, also exam negative for Regalado sign Gallbladder ultrasound not definitive for acute cholecystitis LFTs okay General Surgery consulted, no plans for cholecystectomy at this time (7) History of DVT (deep vein thrombosis): (8) History of pulmonary embolism: Plan: On Coumadin, INR 3.2 Continue Coumadin and monitor INR INR is 2.8 Hold Coumadin for EGD 01/30 inr 2.5 vit K 10mg IV for procedure tomorrow (9) Orthostatic hypotension: Plan: Previously managed on midodrine, recently changed to fludrocortisone while at [facility] BP currently stable, continue fludrocortisone Monitor blood pressure (10) HTN (hypertension): Plan: With orthostatic hypotension BP stable, continue metoprolol (11) Hyperparathyroidism: Plan: Chronic, stable Continue cinacalcet (12) DM type 2 (diabetes mellitus, type 2): Plan: HgbA1c 6.8 10/2023 Hold oral agents and utilize NovoLog per protocol while hospitalized DVT PROPHYLAXIS Hold Coumadin Admission and Anticipated Discharge Date Admission Date: January 29, 2024 Subjective ff up for abdominal pain, UTI, etc reporting upper abdominal pain, not chest pain early AM seems to be resolving states he feels ok overall no chest pain, dyspnea, palpitations, dizziness no other symptoms Review of Systems Review of Systems: .ros Physical Exam Physical Exam: General- oriented x 3, not in distress, speaks in sentences with no effort or accessory muscle use Eyes- anicteric Neck- no JVD Lungs- clear breath sounds bilaterally, no rales/wheezes Heart- normal rate, regular rhythm; no murmurs Abdomen- normal bowel sounds, nondistended, soft, nontender Extremities- no pretibial edema, no calf tenderness Neuro- alert, oriented x 3; no gross focal neurologic deficits Skin- warm & dry Results & Data Results & Data Vital Signs (Past 12 Hours) Vital Signs Temp Pulse Resp BP BP Pulse Ox O2 Del Method 01/31/24 15:50 36.7 C 59 L 18 151/69 H 97 Room Air 01/31/24 13:29 122/65 01/31/24 13:27 104/52 L 01/31/24 13:25 133/70 01/31/24 08:00 36.9 C 59 L 16 134/65 97 Room Air 01/31/24 06:18 36.9 C 61 16 155/75 H 97 Room Air 01/31/24 05:36 36.7 C 64 18 143/68 H 96 Room Air (1) UTI (urinary tract infection) Encounter type: initial encounter Indwelling urinary catheter type: indwelling urethral catheter Urinary tract infection type: catheter-associated UTI Qualified Code(s): T83.511A - Infection and inflammatory reaction due to indwelling urethral catheter, initial encounter; N39.0 - Urinary tract infection, site not specified
[2024-01-31] MEDS: POLYETHYLENE (MIRALAX) 17 GM PACK PO PRN (20:10)
[2024-01-31] MEDS: hydrALAZINE HCL 20 MG/ML VIAL IV ONE (20:53)
--- NOTE | 2024-02-01 07:13 | Anesthesiology Consultation ---
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 Ivory Dodson MD Height/Weight Height: 5 ft 8 in Weight: 69.3 kg Allergies Allergy/AdvReac Type Severity Reaction Status Date / Time No Known Allergies Allergy Unverified 08/12/18 17:06 Medications Home Medications Medication Instructions Recorded Confirmed Last Taken atorvastatin 40 mg tablet 40 mg PO DAILY 08/12/18 01/29/24 08/12/18 10:00 duloxetine 30 mg capsule,delayed 60 mg PO DAILY 08/12/18 01/29/24 08/12/18 release metformin 1,000 mg tablet 1,000 mg PO BIDM 08/12/18 01/29/24 08/12/18 09:00 tamsulosin 0.4 mg capsule (Flomax) 0.4 mg PO QPM 08/12/18 01/29/24 08/11/18 cholecalciferol (vitamin D3) 10 10 mcg PO DAILY 01/29/24 01/29/24 Unknown mcg (400 unit) tablet cinacalcet 30 mg tablet 30 mg PO DAILY 01/29/24 01/29/24 Unknown ferrous sulfate 325 mg (65 mg 325 mg PO HS 01/29/24 01/29/24 Unknown iron) tablet finasteride 5 mg tablet 5 mg PO DAILY 01/29/24 01/29/24 Unknown fludrocortisone 0.1 mg tablet 0.1 mg PO DAILY 01/29/24 01/29/24 Unknown glipizide 2.5 mg tablet, extended 2.5 mg PO DAILY 01/29/24 01/29/24 Unknown release 24 hr metoprolol succinate 25 mg 12.5 mg PO BID 01/29/24 01/29/24 Unknown tablet,extended release 24 hr omeprazole 20 mg capsule,delayed 20 mg PO DAILY 01/29/24 01/29/24 Unknown release warfarin 5 mg tablet 5 mg PO DAILY 01/29/24 01/29/24 Unknown Active Medications Generic Name Dose Route Start Last Admin Trade Name Freq PRN Reason Stop Dose Admin Acetaminophen 650 mg 01/29/24 20:00 01/31/24 14:37 Acetaminophen 325 Mg Tab PO 02/28/24 19:59 650 mg Q4H PRN Administration pain/fever Atorvastatin Calcium 40 mg 01/30/24 09:00 01/31/24 09:09 Atorvastatin 40 Mg Tab PO 02/29/24 08:59 40 mg DAILY ANKIT Administration Cinacalcet 30 mg 01/30/24 09:00 01/31/24 09:10 Cinacalcet Hcl 30 Mg Tab PO 02/29/24 08:59 30 mg DAILY ANKIT Administration Duloxetine HCl 60 mg 01/30/24 09:00 01/31/24 09:12 Duloxetine Hcl 60 Mg Cap PO 02/29/24 08:59 60 mg DAILY ANKIT Administration Ferrous Sulfate 325 mg 01/29/24 21:00 01/31/24 19:44 Ferrous Sulfate 325 Mg Tab PO 02/28/24 20:59 325 mg HS ANKIT Administration Finasteride 5 mg 01/30/24 09:00 01/31/24 09:11 Finasteride 5 Mg Tab PO 02/29/24 08:59 5 mg DAILY ANKIT Administration Fludrocortisone Acetate 0.1 mg 01/30/24 09:00 01/31/24 09:11 Fludrocortisone Acetate 0.1 Mg Tab PO 02/29/24 08:59 0.1 mg DAILY ANKIT Administration Pantoprazole Sodium 40 mg/ 10 mls @ 5 mls/min 01/30/24 18:00 01/31/24 20:53 Syringe IV 02/29/24 17:59 5 mls/min BID ANKIT Administration Ceftriaxone Sodium 2,000 mg in 50 mls @ 100 mls/hr 01/31/24 08:00 01/31/24 11:00 Rocephin IV 02/10/24 07:59 Infused Q24H ANKIT Infusion Potassium Chloride/Sodium Chloride 20 meq in 1,000 mls @ 80 mls/hr 01/31/24 10:30 01/31/24 22:43 Normal Saline W/20 Meq Kcl IV 03/01/24 10:29 80 mls/hr .[id number] ANKIT Administration Insulin Aspart 0 units 01/29/24 21:00 01/31/24 20:31 Insulin Aspart Per Unit Charge SC 02/28/24 20:59 Not Given ACHS ANKIT Magnesium Chloride 64 mg 01/31/24 09:00 01/31/24 10:36 Magnesium Chloride W/Calcium 64mg Delayed Rel Tab PO 03/01/24 08:59 64 mg QAM ANKIT Administration Metoprolol Succinate 12.5 mg 01/29/24 21:00 01/31/24 20:36 Metoprolol Succ 25mg Ext Rel Tab PO 02/28/24 20:59 Not Given BID ANKIT Polyethylene Glycol 17 gm 01/31/24 19:59 01/31/24 20:10 Polyethylene (Miralax) 17 Gm Pack PO 03/01/24 19:58 17 gm DAILY PRN Administration Constipation Tamsulosin HCl 0.4 mg 01/29/24 21:00 01/31/24 19:45 Tamsulosin Hcl 0.4 Mg Cap PO 02/28/24 20:59 0.4 mg QPM ANKIT Administration Vitamin D 10 mcg 01/30/24 09:00 01/31/24 09:11 Cholecalciferol 10 Mcg (400 Units) Tab PO 02/29/24 08:59 10 mcg DAILY ANKIT Administration Past Medical History Medical History Nephrolithiasis History of pulmonary embolism History of DVT (deep vein thrombosis) History of Hodgkin's disease BPH (benign prostatic hyperplasia) Orthostatic hypotension HTN (hypertension) Hyperparathyroidism DM type 2 (diabetes mellitus, type 2) Cord compression 2019 - due to trauma (fall down stairs) Past Surgical History Surgical History Status post cervical spinal fusion History of laminectomy Social History Smoking Status: Never smoker Hx Alcohol Use: No Hx Substance Use: No substance use type: does not use Physical Exam Vital Signs Last Vital Signs Temp 97.7 F 01/31/24 20:27 Pulse 55 L 01/31/24 20:27 Resp 18 01/31/24 20:27 BP 167/80 H 01/31/24 20:27 Pulse Ox 97 01/31/24 20:27 O2 Del Method Room Air 01/31/24 20:27 Testing Laboratory Results 01/30/24 05:45 PT 25.1 Seconds (9.0-12.0) H 01/31/24 06:43 INR 2.5 (0.9-1.1) H 01/31/24 06:43 Urine Color Yellow 01/29/24 Unknown Urine Appearance Cloudy (Clear) A 01/29/24 Unknown Urine pH 5.0 (4.5-7.5) 01/29/24 Unknown Ur Specific [place] 1.014 (1.000-1.030) 01/29/24 Unknown Urine Protein Negative (Negative) 01/29/24 Unknown Urine Glucose (UA) Negative (Negative) 01/29/24 Unknown Urine Ketones Trace (Negative) H 01/29/24 Unknown Urine Nitrite Negative (Negative) 01/29/24 Unknown Ur Leukocyte Esterase 3+ (Negative) H 01/29/24 Unknown Urine WBC (Auto) >50 /hpf (0-5) H 01/29/24 Unknown Urine RBC (Auto) 3-5 /hpf (0-2) H 01/29/24 Unknown U Hyaline Cast (Auto) 11-20 /lpf (0-2) H 01/29/24 Unknown U Epithel Cells (Auto) 0-2 /hpf (0-2) 01/29/24 Unknown Urine Bacteria (Auto) None Seen (None Seen) 01/29/24 Unknown 01/29/24 Unknown Urine Culture - Preliminary Urine,Indwelling Cath Gram negative bacilli 01/31/24 20:27 POC Glucose 127 H Electrocardiogram Sinus bradycardia, rate 57 bpm Normal ECG When compared with ECG of 31-Jan-2024 06:05, No significant change Confirmed by Troy Wellington ([id number]) on 01/31/2024 2:42:02 PM
[2024-02-01 07:36] LABS: Albumin Globulin Ratio 1.5 (0.9-2); Albumin Level 3.2 gm/dl (3.4-5.0); BUN Creatinine Ratio 11.4 (10-20); Bilirubin,Total 0.5 mg/dl (0.2-1.0); Calcium 7.8 mg/dl (8.6-10.3); Creatinine Clr Calc Pharmacy 72.3 ml/min; Est GFR (African American) 98.8 ml/min; Est GFR (Non-African American) 85.2 ml/min; Globulin 2.1 gm/dl (2.5-4.0); Magnesium 1.5 mg/dl (1.7-2.4); Total Protein 5.3 gm/dl (6.0-8.3)
[2024-02-01 07:40] LABS: INR 1.2 (0.9-1.1); Prothrombin Time 13.2 Seconds (9.0-12.0)
[2024-02-01 07:41] LABS: Troponin I High Sensitivity 5.3 pg/ml (0-20)
[2024-02-01] MEDS: MAGNESIUM SULFATE / D5W 1 GM/100 ML BAG IV SCH (09:26)
--- NOTE | 2024-02-01 10:23 | History & Physical Bridge Note ---
Date of Service February 01, 2024 History & Physical Bridge Note I have examined the patient, reviewed the History & Physical and in the interval since the performance of the History & Physical I have noted the following changes of clinical significance: no changes noted INR 1.2. Keep NPO & proceed with EGD today. Supervising Physician Co-Signing Physician Notes I saw and examined this patient with our nurse practitioner and agree with her assessment and plan
--- NOTE | 2024-02-01 13:15 | GI REPORT ---
[facility] Patient: BALDEMAR CAMACHO : 1950 Sex at : Male Age: 73 Years Procedure: Upper GI endoscopy Date: 02/01/2024 Attending Physician: Enrrique Dosdon MD Referring MD: Norris Siegel Indications: - Epigastric abdominal pain - Nausea and vomiting Medications: - Monitored Anesthesia Care - Weight loss Complications: - No immediate complications. Estimated Blood Loss: - Estimated blood loss: None. Procedure: - Prior to the procedure, a History and Physical was performed, and patient medications and allergies were reviewed. The patient's tolerance of previous anesthesia was also reviewed. The risks and benefits of the procedure and the sedation options and risks were discussed with the patient. All questions were answered, and informed consent was obtained. [Anticoagulant Agents] [Days Prior to Procedure]. [ASA Grade]. After reviewing the risks and benefits, the patient was deemed in satisfactory condition to undergo the procedure. - The egd scope was introduced through the mouth and advanced to the second part of the duodenum. - The upper GI endoscopy was accomplished without difficulty. - The patient tolerated the procedure well. Findings: - The examined esophagus was normal. Biopsies were taken at GE junction with a cold forceps for histology. - Diffuse moderate inflammation characterized by erythema and congestion (edema) was found in the entire examined stomach. [Number of Biopsies] biopsies were obtained [Site] [Device] [Purpose]. Biopsies were taken with a cold forceps for histology. - The examined duodenum was normal. Biopsies for histology were taken with a cold forceps for evaluation of celiac disease. Impression: - Normal esophagus. Biopsied. - Gastritis, characterized by erythema and congestion (edema). Biopsied. - Biopsies were obtained. - Normal examined duodenum. Biopsied. Recommendation: - Resume previous diet. - Patient has a contact number available for emergencies. The signs and symptoms of potential delayed complications were discussed with the patient. Return to normal activities tomorrow. Written discharge instructions were provided to the patient. Procedure Code(s): - 35565, Esophagogastroduodenoscopy, flexible, transoral; with biopsy, single or multiple Diagnosis Code(s): - R10.13, Epigastric pain - K29.70, Gastritis, unspecified, without bleeding CPT(R) - 2023 copyright [employer] [place] [employer]. All Rights Reserved. The CPT codes, CCI edits and ICD codes generated are intended as suggestions and were generated based on input data. These codes are preliminary and upon mine inspector federal review may be revised to meet current compliance and payer requirements. The provider is responsible for the final determination of appropriate codes, and modifiers. Enrrique Dodson MD This document has been electronically signed. Note Initiated:02/01/2024 Note Completed:02/01/2024 1:15 PM \\[email or web address]\Central\InterfaceData\Data\Provation\Results\LIVE\[id number]
--- NOTE | 2024-02-01 13:55 | Anesthesiology Progress Note ---
Date of Service February 01, 2024 Anesthesia Post Procedure Vital Signs Vital Signs: Temp Pulse Resp BP Pulse Ox O2 Del Method O2 Flow Rate 02/01/24 13:46 61 18 160/86 H 98 Room Air 02/01/24 13:25 56 L 18 158/82 H 99 Oxymask 5 02/01/24 13:10 63 12 149/77 H 99 Oxymask 5 02/01/24 11:44 97.3 F L 70 16 161/90 H 96 Room Air 02/01/24 07:50 97.5 F L 71 16 160/76 H 96 Room Air 02/01/24 07:31 71 01/31/24 20:27 97.7 F 55 L 18 167/80 H 97 Room Air 01/31/24 15:50 98.1 F 59 L 18 151/69 H 97 Room Air Pain Intensity Lower Back: Pain Intensity: 4 Transfer of Care Handoff Completed per policy Notes Mental Status: alert / awake / arousable and participated in evaluation Patient Amnestic to Procedure: Yes Nausea / Vomiting: adequately controlled Pain: adequately controlled Airway Patency, RR, SpO2: stable & adequate BP & HR: stable & adequate Hydration State: stable & adequate Anesthetic Complications: no major complications apparent and Pt Satisfied with anesthetic care
--- NOTE | 2024-02-01 14:20 | Surgery Progress Note ---
Date of Service February 01, 2024 Assessment & Plan Admission and Anticipated Discharge Date Admission Date: January 29, 2024 Subjective Pt reports no abdominal pain today. Denies N/V. Has tolerated diet however currently NPO for EGD today with GI Results & Data Vital Signs (Past 12 Hours) Vital Signs Temp Pulse Resp BP Pulse Ox O2 Del Method O2 Flow Rate 02/01/24 13:46 61 18 160/86 H 98 Room Air 02/01/24 13:25 56 L 18 158/82 H 99 Oxymask 5 02/01/24 13:10 63 12 149/77 H 99 Oxymask 5 02/01/24 11:44 36.3 C L 70 16 161/90 H 96 Room Air 02/01/24 07:50 36.4 C L 71 16 160/76 H 96 Room Air 02/01/24 07:31 71
[2024-02-01] MEDS: LIDOCAINE 2% 2 ML VIAL/AMP(20MG/ML) INFIL ONE (14:49)
[2024-02-01] MEDS: SODIUM CHLORIDE 0.9% 500 ML IV SCH (14:49)
[2024-02-01] MEDS: PROPOFOL IV EMULSION 10 MG/ML 20 ML VIAL IV ONE ×2 (14:50)
[2024-02-01] MEDS: ONDANSETRON INJ 2 MG/ML 2 ML VIAL ONE (14:50)
--- NOTE | 2024-02-01 14:50 | Surgery Progress Note ---
<Statement entered by Davidson Coburn DO - 02/04/24 06:58> I have seen and examined this patient. I agree with this plan Date of Service February 01, 2024 Assessment & Plan (1) Cholelithiasis: Plan: Patient with no clinical signs of acute cholecystitis on exam. He underwent HIDA to r/o acute cholecystitis and was found to be negative GI following and EGD planned for today No indication for surgical intervention at this time. Continue medical management per primary team. Surgery to sign off, please recall with any questions or concerns. Admission and Anticipated Discharge Date Admission Date: January 29, 2024 Subjective Patient states his abdominal pain has improved Tolerating diet however currently NPO for plans of EGD today with GI Denies N/V HIDA done to r/o acute cholecystitis which was found to be negative Physical Exam 2 Physical Exam: Awake, alert, answering questions appropriately. NAD Gastrointestinal (Abdomen): Abdomen is soft, nontender, nondistended. Negative Regalado's sign. No rebound or guarding. Results & Data Vital Signs (Past 12 Hours) Vital Signs Temp Pulse Resp BP Pulse Ox O2 Del Method O2 Flow Rate 02/01/24 13:46 61 18 160/86 H 98 Room Air 02/01/24 13:25 56 L 18 158/82 H 99 Oxymask 5 02/01/24 13:10 63 12 149/77 H 99 Oxymask 5 02/01/24 11:44 36.3 C L 70 16 161/90 H 96 Room Air 02/01/24 07:50 36.4 C L 71 16 160/76 H 96 Room Air 02/01/24 07:31 71 Diagnostic Findings [place], [place] [phone] Nuclear Medicine Report Patient: BALDEMAR CAMACHO Admit Date: 01/29/24 MR#: [id number] Address1: [address] Acct ID:[id number] Address2: Date: 1950 [facility] Zip: [place] [address] Age: 73 Location: 3N Sex: M Room/Bed: 77 Att Phy: Norris Siegel MD Diagnosis: UTI Shavon Phy: Kaiser Amanda MD Service Date: 01/31/24 Fam Phy: Interpreting Phy: Hayden OmalleyAdmit Phy: Patricia Foss MD Ordering Phy: Dc Gonzalez cc: ~ NM hepatobiliary CLINICAL HISTORY: 73 years-old Male with r/o acute cholecystitis. Acute right upper quadrant abdominal pain TECHNIQUE: Sequential anterior abdominal images were obtained through 60 min utes following the intravenous administration of 4.9 mCi of technetium-99m Choletec. COMPARISON: CT 01/29/2024 FINDINGS: There is prompt, uniform accumulation of the tracer by the liver. There is normal filling of the intrahepatic ducts, common bile duct and normal excretion of the tracer into the duodenum. The gallbladder fills normally. IMPRESSION: Normal hepatobiliary study. No scintigraphic evidence for acute cholecystitis or common bile duct obstruction. PG Care Time/CCT Total # of Minutes Spent Total Time Spent with Patient: Total time spent is greater than 50% in coordination of care (as documented) at patient's floor/unit and/or counseling patient: Coding Level of Care Code 56863 SUB INP/OBS CARE 06/07MIN Diagnoses Cholelithiasis K80.20
--- NOTE | 2024-02-01 15:49 | Hospitalist Progress Note ---
Date of Service February 01, 2024 Assessment & Plan (1) UTI (urinary tract infection): (2) BPH (benign prostatic hyperplasia): (3) Urinary retention: (4) Generalized weakness: (5) Ambulatory dysfunction: Plan: per previous admitting service notes with addendum: Admit to med/surg Patient presenting from home for evaluation of generalized weakness and ambulatory dysfunction. Patient recently admitted to [facility] 01/08 through 01/13 for near syncope and orthostatic hypotension. Patient's midodrine was increased and patient was discharged to [facility] for rehab. Since September of this year, patient has had recurrent urinary tract infections. Patient was discharged from [facility] on 01/25. Since arriving home, patient has been generally weak and unable to ambulate. states she has been placing him in a wheelchair at home. Patient was seen at [facility] ED yesterday for these complaints. Patient was diagnosed with a UTI and discharged on Augmentin. Urine culture from [facility] growing E. Coli, sensitivities pending. Previous urine cultures have grown Klebsiella Start IV ceftriaxone, follow urine culture Patient with history of BPH with chronic urinary retention Chaparro catheter in place, Chaparro was exchanged at [facility] ED yesterday. Patient is scheduled for cysto on 02/[address] Nikolai Chaudhari. Patient and requesting second opinion. Consult to [facility] urology placed. Currently afebrile, no leukocytosis Noted that while at [facility], patient's midodrine was changed to fludrocortisone. Patient's states that she has been unable to pick pulling machine tender this new prescription at the pharmacy and patient has been without for the past 3 days. This may be contributing to patient's worsening weakness. PT/OT, may need placement 01/30 Improving from the UTI standpoint Continue IV ceftriaxone, will follow-up outpatient sensitivities Abdominal pain, r/o PUD Concerning in light of associated symptoms including nausea, poor oral intake, weight loss GI service consulted Plan for EGD once INR is 1.5 and below Hold Coumadin Protonix 40 mg IV started 01/[address] Reynoso Vit k 10mg IV given in an effort to lower INR < 1.5 tomorrow for EGD tomorrow 01/31 Status post EGD: Showing diffuse gastritis Symptoms seems to be improving per patient Continue Protonix IV twice daily (6) Cholelithiasis: Plan: Patient reporting post prandial nausea for the past several months. Has been unable to eat and loosing weight. Was seen by [facility] surgery in July for cholelithiasis. Cholecystectomy not advised at that time. Patient and requesting second opinion. Consult placed to [facility] general surgery. 01/30 Denies right upper quadrant pain, also exam negative for Regalado sign Gallbladder ultrasound not definitive for acute cholecystitis LFTs okay General Surgery consulted, no plans for cholecystectomy at this time 01/31 HIDA scan negative General Surgery: No cholecystectomy (7) History of DVT (deep vein thrombosis): (8) History of pulmonary embolism: Plan: On Coumadin, INR 3.2 Continue Coumadin and monitor INR INR is 2.8 Hold Coumadin for EGD 01/30 inr 2.5 vit K 10mg IV for procedure tomorrow 01/31 INR 1.2 Resume Coumadin tomorrow, start at 10 mg x 2 days, then resume usual 5 mg daily (9) Orthostatic hypotension: Plan: Previously managed on midodrine, recently changed to fludrocortisone while at [facility] BP currently stable, continue fludrocortisone Monitor blood pressure (10) HTN (hypertension): Plan: With orthostatic hypotension BP stable, continue metoprolol (11) Hyperparathyroidism: Plan: Chronic, stable Continue cinacalcet (12) DM type 2 (diabetes mellitus, type 2): Plan: HgbA1c 6.8 10/2023 Hold oral agents and utilize NovoLog per protocol while hospitalized DVT PROPHYLAXIS Restart Coumadin tomorrow in light of EGD today Disposition Patient will need to transition to acute rehab Admission and Anticipated Discharge Date Admission Date: January 29, 2024 Subjective Follow-up for UTI, abdominal pain, etc. Seen resting in bed, sitting up, comfortable States he feels okay today Abdominal pain improving, no nausea No fevers or chills No other symptoms Review of Systems Review of Systems: all noted and negative except for above Physical Exam Physical Exam: General- oriented x 3, not in distress, speaks in sentences with no effort or accessory muscle use Eyes- anicteric Neck- no JVD Lungs- clear breath sounds bilaterally, no rales/wheezes Heart- normal rate, regular rhythm; no murmurs Abdomen- normal bowel sounds, nondistended, soft, nontender Extremities- no pretibial edema, no calf tenderness Neuro- alert, oriented x 3; no gross focal neurologic deficits Skin- warm & dry Results & Data Results & Data Vital Signs (Past 12 Hours) Vital Signs Temp Pulse Resp BP Pulse Ox O2 Del Method O2 Flow Rate 02/01/24 15:20 36.5 C 62 16 153/78 H 96 Room Air 02/01/24 14:30 36.5 C 67 16 169/80 H 97 Room Air 02/01/24 13:46 61 18 160/86 H 98 Room Air 02/01/24 13:25 56 L 18 158/82 H 99 Oxymask 5 02/01/24 13:10 63 12 149/77 H 99 Oxymask 5 02/01/24 11:44 36.3 C L 70 16 161/90 H 96 Room Air 02/01/24 07:50 36.4 C L 71 16 160/76 H 96 Room Air 02/01/24 07:31 71 all noted and reviewed including below (1) UTI (urinary tract infection) Encounter type: initial encounter Indwelling urinary catheter type: indwelling urethral catheter Urinary tract infection type: catheter-associated UTI Qualified Code(s): T83.511A - Infection and inflammatory reaction due to indwelling urethral catheter, initial encounter; N39.0 - Urinary tract infection, site not specified
[2024-02-01] MEDS: POLYETHYLENE (MIRALAX) 17 GM PACK PO SCH (17:28)
[2024-02-02 07:19] LABS: INR 1.2 (0.9-1.1); Prothrombin Time 12.4 Seconds (9.0-12.0)
[2024-02-02 07:25] LABS: Albumin Globulin Ratio 1.5 (0.9-2); Albumin Level 3.1 gm/dl (3.4-5.0); BUN Creatinine Ratio 12.2 (10-20); Bilirubin,Total 0.5 mg/dl (0.2-1.0); Calcium 7.4 mg/dl (8.6-10.3); Creatinine Clr Calc Pharmacy 77.6 ml/min; Est GFR (African American) 101.7 ml/min; Est GFR (Non-African American) 87.7 ml/min; Globulin 2.1 gm/dl (2.5-4.0); Magnesium 1.4 mg/dl (1.7-2.4); Potassium 4.3 mmol/L (3.5-5.1); Total Protein 5.2 gm/dl (6.0-8.3)
[2024-02-02] MEDS: MAGNESIUM SULFATE / D5W 1 GM/100 ML BAG IV SCH (11:25)
[2024-02-02] MEDS: INSULIN ASPART PER UNIT CHARGE SC SCH (11:42)
[2024-02-02] MEDS ORDERED: Nursing to Pharmacy Communication SCH (11:45)
[2024-02-02] MEDS: WARFARIN SOD 10 MG TAB PO ONE (16:01)
--- NOTE | 2024-02-02 18:11 | Hospitalist Progress Note ---
Date of Service February 02, 2024 Assessment & Plan (1) UTI (urinary tract infection): (2) BPH (benign prostatic hyperplasia): (3) Urinary retention: (4) Generalized weakness: (5) Ambulatory dysfunction: Plan: per previous admitting service notes with addendum: Admit to med/surg Patient presenting from home for evaluation of generalized weakness and ambulatory dysfunction. Patient recently admitted to [facility] 01/08 through 01/13 for near syncope and orthostatic hypotension. Patient's midodrine was increased and patient was discharged to [facility] for rehab. Since September of this year, patient has had recurrent urinary tract infections. Patient was discharged from [facility] on 01/25. Since arriving home, patient has been generally weak and unable to ambulate. states she has been placing him in a wheelchair at home. Patient was seen at [facility] ED yesterday for these complaints. Patient was diagnosed with a UTI and discharged on Augmentin. Urine culture from [facility] growing E. Coli, sensitivities pending. Previous urine cultures have grown Klebsiella Start IV ceftriaxone, follow urine culture Patient with history of BPH with chronic urinary retention Chaparro catheter in place, Chaparro was exchanged at [facility] ED yesterday. Patient is scheduled for cysto on 02/[address] Nikolai Chaudhari. Patient and requesting second opinion. Consult to [facility] urology placed. Currently afebrile, no leukocytosis Noted that while at [facility], patient's midodrine was changed to fludrocortisone. 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 This may be contributing to patient's worsening weakness. PT/OT, may need placement 01/30 Improving from the UTI standpoint Continue IV ceftriaxone, will follow-up outpatient sensitivities Abdominal pain, r/o PUD Concerning in light of associated symptoms including nausea, poor oral intake, weight loss GI service consulted Plan for EGD once INR is 1.5 and below Hold Coumadin Protonix 40 mg IV started 01/[address] Reynoso Vit k 10mg IV given in an effort to lower INR < 1.5 tomorrow for EGD tomorrow 01/31 Status post EGD: Showing diffuse gastritis Symptoms seems to be improving per patient Continue Protonix IV twice daily 02/01 Epigastric pain continues to improve Continue Protonix IV twice daily, transition to p.o. twice daily for at least 1 month Continue to monitor (6) Cholelithiasis: Plan: Patient reporting post prandial nausea for the past several months. Has been unable to eat and loosing weight. Was seen by [facility] general surgery in July for cholelithiasis. Cholecystectomy not advised at that time. Patient and requesting second opinion. Consult placed to [facility] general surgery. 01/30 Denies right upper quadrant pain, also exam negative for Regalado sign Gallbladder ultrasound not definitive for acute cholecystitis LFTs okay General Surgery consulted, no plans for cholecystectomy at this time 01/31 HIDA scan negative General Surgery: No cholecystectomy (7) History of DVT (deep vein thrombosis): (8) History of pulmonary embolism: Plan: On Coumadin, INR 3.2 Continue Coumadin and monitor INR INR is 2.8 Hold Coumadin for EGD 01/30 inr 2.5 vit K 10mg IV for procedure tomorrow 01/31 INR 1.2 Resume Coumadin tomorrow, start at 10 mg x 2 days, then resume usual 5 mg daily 02/01 Resume Coumadin at 10 mg today and tomorrow INR checked daily Usually takes Coumadin 5 mg daily (9) Orthostatic hypotension: Plan: Previously managed on midodrine, recently changed to fludrocortisone while at [facility] BP currently stable, continue fludrocortisone Monitor blood pressure (10) HTN (hypertension): Plan: With orthostatic hypotension BP stable, continue metoprolol (11) Hyperparathyroidism: Plan: Chronic, stable Continue cinacalcet (12) DM type 2 (diabetes mellitus, type 2): Plan: HgbA1c 6.8 10/2023 Hold oral agents and utilize NovoLog per protocol while hospitalized DVT PROPHYLAXIS Restart Coumadin today Disposition Patient will need to transition to acute rehab Admission and Anticipated Discharge Date Admission Date: January 29, 2024 Subjective Seen resting in bed, comfortable, in good spirits States he continues to feel better overall Minimal abdominal discomfort No nausea or vomiting No chest pain, shortness of breath, dizziness No other new symptom Review of Systems Review of Systems: all noted and negative except for above Physical Exam Physical Exam: General- oriented x 3, not in distress, speaks in sentences with no effort or accessory muscle use Eyes- anicteric Neck- no JVD Lungs- clear breath sounds bilaterally, No crackles or wheezing Heart- normal rate, regular rhythm; no murmurs Abdomen- normal bowel sounds, nondistended, soft, no tenderness Extremities- no pretibial edema, no calf tenderness Neuro- alert, oriented x 3; no gross focal neurologic deficits Skin- warm & dry Results & Data Results & Data Vital Signs (Past 12 Hours) Vital Signs Temp Pulse Resp BP Pulse Ox O2 Del Method 02/02/24 15:03 36.8 C 63 16 156/80 H 96 Room Air 02/02/24 08:00 36.6 C 70 18 162/79 H 95 Room Air all noted and reviewed including below (1) UTI (urinary tract infection) Encounter type: initial encounter Indwelling urinary catheter type: indwelling urethral catheter Urinary tract infection type: catheter-associated UTI Qualified Code(s): T83.511A - Infection and inflammatory reaction due to indwelling urethral catheter, initial encounter; N39.0 - Urinary tract infection, site not specified
[2024-02-02] MEDS: ADVANCED PROBIOTIC 625 MG CAPSULE PO SCH (20:12)
[2024-02-03 08:02] LABS: Albumin Globulin Ratio 1.5 (0.9-2); Bilirubin,Total 0.5 mg/dl (0.2-1.0); Calcium 7.3 mg/dl (8.6-10.3); Creatinine Clr Calc Pharmacy 76.7 ml/min; Est GFR (African American) 101.2 ml/min; Est GFR (Non-African American) 87.3 ml/min; Magnesium 1.3 mg/dl (1.7-2.4); Potassium 4.2 mmol/L (3.5-5.1)
[2024-02-03 08:06] LABS: INR 1.2 (0.9-1.1)
--- NOTE | 2024-02-03 14:45 | Hospitalist Progress Note ---
Date of Service February 03, 2024 Assessment & Plan (1) UTI (urinary tract infection): (2) BPH (benign prostatic hyperplasia): (3) Urinary retention: (4) Generalized weakness: (5) Ambulatory dysfunction: Plan: per previous admitting service notes with addendum: Admit to med/surg Patient presenting from home for evaluation of generalized weakness and ambulatory dysfunction. Patient recently admitted to [facility] 01/08 through 01/13 for near syncope and orthostatic hypotension. Patient's midodrine was increased and patient was discharged to [facility] for rehab. Since September of this year, patient has had recurrent urinary tract infections. Patient was discharged from [facility] on 01/25. Since arriving home, patient has been generally weak and unable to ambulate. states she has been placing him in a wheelchair at home. Patient was seen at [facility] ED yesterday for these complaints. Patient was diagnosed with a UTI and discharged on Augmentin. Urine culture from [facility] growing E. Coli, sensitivities pending. Previous urine cultures have grown Klebsiella Start IV ceftriaxone, follow urine culture Patient with history of BPH with chronic urinary retention Chaparro catheter in place, Chaparro was exchanged at [facility] ED yesterday. Patient is scheduled for cysto on 02/[address] Nikolai Chaudhari. Patient and requesting second opinion. Consult to [facility] urology placed. Currently afebrile, no leukocytosis Noted that while at [facility], patient's midodrine was changed to fludrocortisone. Patient's states that she has been unable to pecan picker this new prescription at the pharmacy and patient has been without for the past 3 days. This may be contributing to patient's worsening weakness. PT/OT, may need placement 01/30 Improving from the UTI standpoint Continue IV ceftriaxone, will follow-up outpatient sensitivities Abdominal pain, r/o PUD Concerning in light of associated symptoms including nausea, poor oral intake, weight loss GI service consulted Plan for EGD once INR is 1.5 and below Hold Coumadin Protonix 40 mg IV started 01/[address] Reynoso Vit k 10mg IV given in an effort to lower INR < 1.5 tomorrow for EGD tomorrow 01/31 Status post EGD: Showing diffuse gastritis Symptoms seems to be improving per patient Continue Protonix IV twice daily 02/01 Epigastric pain continues to improve Continue Protonix IV twice daily, transition to p.o. twice daily for at least 1 month Continue to monitor 02/02 Continues to improve Tolerating diet much better Continue Protonix IV twice daily, transition to p.o. twice daily x 1 month at least (6) Cholelithiasis: Plan: Patient reporting post prandial nausea for the past several months. Has been unable to eat and loosing weight. Was seen by [facility] surgery in July for cholelithiasis. Cholecystectomy not advised at that time. Patient and requesting second opinion. Consult placed to [facility] general surgery. 01/30 Denies right upper quadrant pain, also exam negative for Regalado sign Gallbladder ultrasound not definitive for acute cholecystitis LFTs okay General Surgery consulted, no plans for cholecystectomy at this time 01/31 HIDA scan negative General Surgery: No cholecystectomy 02/02 (7) History of DVT (deep vein thrombosis): (8) History of pulmonary embolism: Plan: On Coumadin, INR 3.2 Continue Coumadin and monitor INR INR is 2.8 Hold Coumadin for EGD 01/30 inr 2.5 vit K 10mg IV for procedure tomorrow 01/31 INR 1.2 Resume Coumadin tomorrow, start at 10 mg x 2 days, then resume usual 5 mg daily 02/01 Resume Coumadin at 10 mg today and tomorrow INR checked daily Usually takes Coumadin 5 mg daily 02/02 INR 1.2 Coumadin 10 mg p.o. today Check INR tomorrow (9) Orthostatic hypotension: Plan: Previously managed on midodrine, recently changed to fludrocortisone while at [facility] BP currently stable, continue fludrocortisone Monitor blood pressure (10) HTN (hypertension): Plan: With orthostatic hypotension BP elevated Hold fludrocortisone Monitor orthostatic vitals (11) Hyperparathyroidism: Plan: Chronic, stable Continue cinacalcet (12) DM type 2 (diabetes mellitus, type 2): Plan: HgbA1c 6.8 10/2023 Hold oral agents and utilize NovoLog per protocol while hospitalized DVT PROPHYLAXIS Restarted on Coumadin Disposition Patient will need to transition to acute rehab Admission and Anticipated Discharge Date Admission Date: January 29, 2024 Subjective Follow-up for gastritis, UTI, etc. Seen resting bedside chair, comfortable in good spirits States he continues to feel better overall Minimal abdominal discomfort Able to eat pancake, bananas, yogurt for breakfast No fevers or chills, shortness of breath, chest pain No other new symptoms Review of Systems Review of Systems: all noted and negative except for above Physical Exam Physical Exam: General- oriented x 3, not in distress, speaks in sentences with no effort or accessory muscle use Eyes- anicteric Neck- no JVD Lungs- clear breath sounds bilaterally, no rales/wheezes Heart- normal rate, regular rhythm; no murmurs Abdomen- normal bowel sounds, nondistended, soft, nontender Chaparro catheter in place: Yellow urine Extremities- no pretibial edema, no calf tenderness Neuro- alert, oriented x 3; no gross focal neurologic deficits Skin- warm & dry Results & Data Results & Data Vital Signs (Past 12 Hours) Vital Signs Temp Pulse Resp BP Pulse Ox O2 Del Method 02/03/24 07:55 36.7 C 67 20 169/83 H 96 Room Air all noted and reviewed including below (1) UTI (urinary tract infection) Encounter type: initial encounter Indwelling urinary catheter type: indwelling urethral catheter Urinary tract infection type: catheter-associated UTI Qualified Code(s): T83.511A - Infection and inflammatory reaction due to indwelling urethral catheter, initial encounter; N39.0 - Urinary tract infection, site not specified
[2024-02-03] MEDS: WARFARIN SOD 10 MG TAB PO ONE (16:10)
[2024-02-04 09:53] LABS: Albumin Globulin Ratio 1.4 (0.9-2); BUN Creatinine Ratio 8.1 (10-20); Bilirubin,Total 0.5 mg/dl (0.2-1.0); Calcium 7.7 mg/dl (8.6-10.3); Est GFR (African American) 99.7 ml/min; Globulin 2.1 gm/dl (2.5-4.0); Magnesium 1.1 mg/dl (1.7-2.4); Potassium 4.4 mmol/L (3.5-5.1); Total Protein 5.1 gm/dl (6.0-8.3)
[2024-02-04 09:59] LABS: INR 1.7 (0.9-1.1); Prothrombin Time 17.7 Seconds (9.0-12.0)
[2024-02-04] MEDS: SERTRALINE HCL 50 MG TABLET PO SCH (11:59)
[2024-02-04] MEDS ORDERED: hydrALAZINE HCL 20 MG/ML VIAL IV PRN (15:04)
--- NOTE | 2024-02-04 15:04 | Hospitalist Progress Note ---
Date of Service February 04, 2024 Assessment & Plan (1) UTI (urinary tract infection): (2) BPH (benign prostatic hyperplasia): (3) Urinary retention: (4) Generalized weakness: (5) Ambulatory dysfunction: Plan: per previous admitting service notes with addendum: Admit to med/surg Patient presenting from home for evaluation of generalized weakness and ambulatory dysfunction. Patient recently admitted to [facility] 01/08 through 01/13 for near syncope and orthostatic hypotension. Patient's midodrine was increased and patient was discharged to [facility] for rehab. Since September of this year, patient has had recurrent urinary tract infections. Patient was discharged from [facility] on 01/25. Since arriving home, patient has been generally weak and unable to ambulate. states she has been placing him in a wheelchair at home. Patient was seen at [facility] ED yesterday for these complaints. Patient was diagnosed with a UTI and discharged on Augmentin. Urine culture from [facility] growing E. Coli, sensitivities pending. Previous urine cultures have grown Klebsiella Start IV ceftriaxone, follow urine culture Patient with history of BPH with chronic urinary retention Chaparro catheter in place, Chaparro was exchanged at [facility] ED yesterday. Patient is scheduled for cysto on 02/[address] Nikolai Chaudhari. Patient and requesting second opinion. Consult to [facility] urology placed. Currently afebrile, no leukocytosis Noted that while at [facility], patient's midodrine was changed to fludrocortisone. 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 This may be contributing to patient's worsening weakness. PT/OT, may need placement 01/30 Improving from the UTI standpoint Continue IV ceftriaxone, will follow-up outpatient sensitivities Abdominal pain, r/o PUD Concerning in light of associated symptoms including nausea, poor oral intake, weight loss GI service consulted Plan for EGD once INR is 1.5 and below Hold Coumadin Protonix 40 mg IV started 01/[address] Reynoso Vit k 10mg IV given in an effort to lower INR < 1.5 tomorrow for EGD tomorrow 01/31 Status post EGD: Showing diffuse gastritis Symptoms seems to be improving per patient Continue Protonix IV twice daily 02/01 Epigastric pain continues to improve Continue Protonix IV twice daily, transition to p.o. twice daily for at least 1 month Continue to monitor 02/02 Continues to improve Tolerating diet much better Continue Protonix IV twice daily, transition to p.o. twice daily x 1 month at least 02/03 Tolerating diet well However developed diarrhea since yesterday Check C. difficile and stool cultures Continue Protonix IV twice daily Hypomagnesemia Magnesium 1.1 Likely secondary to diarrhea Replace with IV and p.o. magnesium (6) Cholelithiasis: Plan: Patient reporting post prandial nausea for the past several months. Has been unable to eat and loosing weight. Was seen by [facility] surgery in July for cholelithiasis. Cholecystectomy not advised at that time. Patient and requesting second opinion. Consult placed to [facility] general surgery. 01/30 Denies right upper quadrant pain, also exam negative for Regalado sign Gallbladder ultrasound not definitive for acute cholecystitis LFTs okay General Surgery consulted, no plans for cholecystectomy at this time 01/31 HIDA scan negative General Surgery: No cholecystectomy (7) History of DVT (deep vein thrombosis): (8) History of pulmonary embolism: Plan: On Coumadin, INR 3.2 Continue Coumadin and monitor INR INR is 2.8 Hold Coumadin for EGD 01/30 inr 2.5 vit K 10mg IV for procedure tomorrow 01/31 INR 1.2 Resume Coumadin tomorrow, start at 10 mg x 2 days, then resume usual 5 mg daily 02/01 Resume Coumadin at 10 mg today and tomorrow INR checked daily Usually takes Coumadin 5 mg daily 02/02 INR 1.2 Coumadin 10 mg p.o. today Check INR tomorrow 02/03 inr 1.7 Coumadin 7.5 mg p.o. today Check INR tomorrow (9) Orthostatic hypotension: Plan: Previously managed on midodrine, recently changed to fludrocortisone while at [facility] Blood pressure elevated Fludrocortisone discontinued Monitor orthostatic vital signs (10) HTN (hypertension): Plan: With orthostatic hypotension BP elevated Hold fludrocortisone Monitor orthostatic vitals (11) Hyperparathyroidism: Plan: Chronic, stable Continue cinacalcet (12) DM type 2 (diabetes mellitus, type 2): Plan: HgbA1c 6.8 10/2023 Hold oral agents and utilize NovoLog per protocol while hospitalized DVT PROPHYLAXIS Restarted on Coumadin Disposition Patient will need to transition to acute rehab Admission and Anticipated Discharge Date Admission Date: January 29, 2024 Subjective Follow-up for seen resting in bed, comfortable, not in distress Patient's at the bedside supplying additional information Patient states he feels okay overall Has been having diarrhea since yesterday at least 3 loose bowel movements a day, nonbloody Reports some mild abdominal cramping, but no nausea Tolerating soft diet well so far No other new symptoms Review of Systems Review of Systems: all noted and negative except for above Physical Exam Physical Exam: General- oriented x 3, not in distress, speaks in sentences with no effort or accessory muscle use Eyes- anicteric Neck- no JVD Lungs- clear breath sounds bilaterally, no crackles or wheezing Heart- normal rate, regular rhythm; no murmurs Abdomen- normal bowel sounds, nondistended, soft, No tenderness Chaparro catheter in place: Yellow urine Extremities- no pretibial edema, no calf tenderness Neuro- alert, oriented x 3; no gross focal neurologic deficits Skin- warm & dry Results & Data Results & Data Vital Signs (Past 12 Hours) Vital Signs Temp Pulse Resp BP Pulse Ox O2 Del Method 02/04/24 14:50 36.4 C L 58 L 16 172/86 H 96 Room Air 02/04/24 07:43 36.6 C 61 16 171/86 H 97 Room Air all noted and reviewed including below (1) UTI (urinary tract infection) Encounter type: initial encounter Indwelling urinary catheter type: indwelling urethral catheter Urinary tract infection type: catheter-associated UTI Qualified Code(s): T83.511A - Infection and inflammatory reaction due to indwelling urethral catheter, initial encounter; N39.0 - Urinary tract infection, site not specified
[2024-02-04] MEDS: MAGNESIUM SULFATE / D5W 1 GM/100 ML BAG IV SCH (15:31)
[2024-02-04] MEDS: WARFARIN SOD 7.5 MG TAB PO SCH (17:09)
[2024-02-04] MEDS: MAGNESIUM CHLORIDE W/CALCIUM 64MG DELAYED REL TAB PO SCH (20:36)
[2024-02-04] MEDS: MIRTAZAPINE TAB 15 MG TAB PO SCH (20:37)
[2024-02-05] MEDS: DULoxetine HCL 20 MG CAP PO SCH (07:33)
[2024-02-05 08:26] LABS: Prothrombin Time 20.7 Seconds (9.0-12.0)
[2024-02-05] MEDS: amLODIPine BESYLATE 5 MG TAB PO SCH (09:59)
--- NOTE | 2024-02-05 11:30 | Discharge Summary ---
Discharge Summary Date of Service February 05, 2024 Principal Dx & Hospital Course #1 = Principal Diagnosis (1) UTI (urinary tract infection): (2) Urinary retention: (3) Generalized weakness: (4) Abdominal pain: (5) Adjustment disorder with depressed mood: Plan (1) UTI (urinary tract infection): (2) BPH (benign prostatic hyperplasia): (3) Urinary retention: (4) Generalized weakness: (5) Ambulatory dysfunction: Plan: per previous admitting service notes with addendum: E. coli urinary tract infection Recurrent urinary tract infection Urinary retention Patient presenting from home for evaluation of generalized weakness and ambulatory dysfunction. Patient recently admitted to [facility] 01/08 through 01/13 for near syncope and orthostatic hypotension. Patient's midodrine was increased and patient was discharged to [facility] for rehab. Since September of this year, patient has had recurrent urinary tract infections. Patient was discharged from [facility] on 01/25. Since arriving home, patient has been generally weak and unable to ambulate. states she has been placing him in a wheelchair at home. Patient was seen at [facility] ED yesterday for these complaints. Patient was diagnosed with a UTI and discharged on Augmentin. Urine culture from [facility] growing E. Coli, Pansensitive Patient with history of BPH with chronic urinary retention Chaparro catheter in place, Chaparro was exchanged at [facility] ED yesterday. Patient is scheduled for cysto on 02/[address] Nikolai Chaudhari. Patient and requesting second opinion. Consult to [facility] urology placed. Completed 8-day course of IV ceftriaxone while admitted Continue 2 more days of cefdinir 10 mg twice daily Maintain Chaparro catheter per urology service, outpatient follow-up to determine plans for removal of Chaparro catheter Abdominal pain, Diffuse gastritis Concerning in light of associated symptoms including nausea, poor oral intake, weight loss GI service consulted Status post EGD: Showing diffuse gastritis - Normal esophagus. Biopsied. - Gastritis, characterized by erythema and congestion (edema). Biopsied. - Biopsies were obtained. - Normal examined duodenum. Biopsied. GI symptoms mostly resolved Tolerating diet well now Continue Protonix 40 mg p.o. twice daily x 1 month, then daily No NSAIDs Follow-up with GI as an outpatient Hypomagnesemia Magnesium 1.1 Likely secondary to diarrhea Replace with IV magnesium Magnesium 1.6 upon discharge Continue magnesium supplement Repeat magnesium in 2 to 3 days (6) Cholelithiasis: Plan: Patient reporting post prandial nausea for the past several months. Has been unable to eat and loosing weight. Was seen by [facility] surgery in July for cholelithiasis. Cholecystectomy not advised at that time. Patient and requesting second opinion. Consult placed to [facility] general surgery. 01/30 Denies right upper quadrant pain, also exam negative for Regalado sign Gallbladder ultrasound not definitive for acute cholecystitis LFTs okay General Surgery consulted, no plans for cholecystectomy at this time 01/31 HIDA scan negative General Surgery: No cholecystectomy (7) History of DVT (deep vein thrombosis): (8) History of pulmonary embolism: Plan: Given vitamin K to reverse Coumadin prior to EGD INR 2.0 upon discharge Continue Coumadin 5 mg p.o. daily INR checks daily (9) Orthostatic hypotension: Plan: Previously managed on midodrine, recently changed to fludrocortisone while at [facility] Blood pressure elevated While admitted Orthostatic hypotension resolved per orthostatic vital signs monitoring Fludrocortisone discontinued Amlodipine 2.5 mg p.o. daily started Monitor closely (10) HTN (hypertension): Plan: As per above (11) Hyperparathyroidism: Plan: Chronic, stable Continue cinacalcet (12) DM type 2 (diabetes mellitus, type 2): Plan: HgbA1c 6.8 10/2023 Hold oral agents Continue insulin NovoLog for now to avoid hypoglycemia Monitor closely (13) Abnormal CT chest and abdomen pelvis findings Indeterminate intermediate density lesion in the lateral interpolar left kidney is partially exophytic on image 121 measuring 2.9 cm, Hounsfield unit of 43. Simple appearing exophytic 11 mm lesion of the inferior pole right kidney. A few pulmonary nodules measuring up to [address] in 6 months to ensure stability is recommended. Mild cardiomegaly. Extensive coronary artery calcification. Please refer to full report in the Ordered Studies Further work up, management, and ff up as outpatient (14) Depression Patient's noted patient's depression symptoms has been increasing Requested psychiatric consult Dr. Montalvo evaluated the patient Recommendations: Start Remeron 7.5 mg p.o. at night Zoloft 25 mg every morning Decrease duloxetine from 60 to 40 mg daily x 5 days then 20 mg x 5 days then stop Notes For Next Care Provider Medication Changes From Visit Please refer to assessment and plan below Admission HPI Per Admitting Provider Patient has had a history of recurrent postprandial epigastric pain with episodic vomiting of undigested food and a significant weight loss over the last several months. He denies any dysphagia change in bowel habits prior blood per rectum or melena. He has had multiple urinary tract infections over the last year treated with multiple courses of antibiotics. He is on longstanding anticoagulation for prior history of pulmonary emboli. No other significant cardiopulmonary disease. Admission Exam Per Admitting Provider Eyes; anicteric HENT No masses Chest clear to A Cor S1, S2 physiologic Abd: softer nontender no masses Ext no edema Discharge Exam General- oriented x 3, not in distress, speaks in sentences with no effort or accessory muscle use Eyes- anicteric Neck- no JVD Lungs- clear breath sounds bilaterally, no rales/wheezes Heart- normal rate, regular rhythm; no murmurs Abdomen- normal bowel sounds, nondistended, soft, nontender Extremities- no pretibial edema, no calf tenderness Neuro- alert, oriented x 3; mild left LUE weakness, no new gross focal neurologic deficits Skin- warm & dry Updated Medication List Medication Instructions Recorded Confirmed Type atorvastatin 40 mg tablet 40 mg PO DAILY 08/12/18 01/29/24 History metformin 1,000 mg tablet 1,000 mg PO BIDM 08/12/18 01/29/24 History tamsulosin 0.4 mg capsule (Flomax) 0.4 mg PO QPM 08/12/18 01/29/24 History cholecalciferol (vitamin D3) 10 10 mcg PO DAILY 01/29/24 01/29/24 History mcg (400 unit) tablet cinacalcet 30 mg tablet 30 mg PO DAILY 01/29/24 01/29/24 History ferrous sulfate 325 mg (65 mg 325 mg PO HS 01/29/24 01/29/24 History iron) tablet finasteride 5 mg tablet 5 mg PO DAILY 01/29/24 01/29/24 History glipizide 2.5 mg tablet, extended 2.5 mg PO DAILY 01/29/24 01/29/24 History release 24 hr metoprolol succinate 25 mg 12.5 mg PO BID 01/29/24 01/29/24 History tablet,extended release 24 hr warfarin 5 mg tablet 5 mg PO DAILY 01/29/24 02/01/24 History L.acidop,casei,lactis,rham-B.lact,donnell 1 cap PO DAILY 30 days #30 caps 02/05/24 Rx 625 mg (10 billion cell) capsule (Advanced Probiotic) amlodipine 5 mg tablet (Norvasc) 2.5 mg (1/2 x 5 mg) PO QAM 30 days 02/05/24 Rx #15 tabs cefdinir 300 mg capsule 3 mg (0.01 x 300 mg) PO BID 3 days 02/05/24 Rx #6 caps duloxetine 20 mg capsule,delayed 40 mg (2 x 20 mg) PO DAILY 5 days 02/05/24 Rx release (Cymbalta) #10 caps insulin aspart U-100 100 unit/mL 1 unit (0.01 mL) SC ACHS #10 mL 02/05/24 Rx subcutaneous solution (Novolog U-100 Insulin aspart) magnesium chloride 64 mg 64 mg PO BID 5 days #10 tabs 02/05/24 Rx (magnesium chloride) tablet,delayed release (Mag 64) mirtazapine 15 mg tablet 7.5 mg (1/2 x 15 mg) PO HS 30 days 02/05/24 Rx #15 tabs polyethylene glycol 3350 17 gram 17 g PO DAILY PRN constipation #14 02/05/24 Rx oral powder packet (Miralax) ea sertraline 50 mg tablet 25 mg (1/2 x 50 mg) PO QAM 30 days 02/05/24 Rx #15 tabs Hospital Stay Data Consultations 01/29/24 16:18 ED Decision to Admit Stat 01/29/24 18:26 Consult General Surgery Routine Consult Urology Routine 01/30/24 12:50 Consult Gastroenterology Routine 01/30/24 17:19 Consult Infectious Diseases Routine Consult Psychiatry Routine Procedures Performed Operation Date: 02/01/24 16:55 Actual Procedures p EGD Biopsy Cytology - Enrrique Dodson MD Diagnostic Imagining Performed Laboratory Results WBC 5.50 K/ul (4.8-10.8) 01/30/24 05:45 RBC 3.67 M/uL (4.70-6.10) L 01/30/24 05:45 Hgb 10.9 g/dl (14.0-18.0) L 01/30/24 05:45 Hct 33.3 % (42.0-52.0) L 01/30/24 05:45 MCV 90.7 fL (80.0-100.0) 01/30/24 05:45 MCH 29.7 pg (25.0-34.0) 01/30/24 05:45 MCHC 32.7 g/dL (32.0-36.0) 01/30/24 05:45 RDW Std Deviation 51.1 fL (36.4-46.3) H 01/30/24 05:45 RDW Coeff of Doreen 15.5 % (11.5-14.5) H 01/30/24 05:45 Plt Count 178 K/uL (130-400) 01/30/24 05:45 MPV 10.2 fL (9.4-12.4) 01/30/24 05:45 Immature Gran % (Auto) 0.4 % 01/29/24 12:30 Neut % (Auto) 62.9 % 01/29/24 12:30 Lymph % (Auto) 24.9 % 01/29/24 12:30 [place] % (Auto) 7.9 % 01/29/24 12:30 Eos % (Auto) 3.2 % 01/29/24 12:30 Baso % (Auto) 0.7 % 01/29/24 12:30 Neut # (Auto) 4.77 K/uL (1.40-6.50) 01/29/24 12:30 Lymph # (Auto) 1.89 K/uL (1.20-3.40) 01/29/24 12:30 [place] # (Auto) 0.60 K/uL (0.11-0.59) H 01/29/24 12:30 Eos # (Auto) 0.24 K/uL (0.00-0.50) 01/29/24 12:30 Baso # (Auto) 0.05 K/uL (0.00-0.20) 01/29/24 12:30 Immature Gran # (Auto) 0.03 K/uL (0.01-0.20) 01/29/24 12:30 PT 20.7 Seconds (9.0-12.0) H 02/05/24 07:20 INR 2.0 (0.9-1.1) H 02/05/24 07:20 Sodium 138 mmol/L (136-145) 02/04/24 08:55 Potassium 4.4 mmol/L (3.5-5.1) 02/04/24 08:55 Chloride 107 mmol/L (98-107) 02/04/24 08:55 Carbon Dioxide 24 mmol/L (21-32) 02/04/24 08:55 Anion Gap 7 (3-11) 02/04/24 08:55 BUN 7 mg/dl (6-23) 02/04/24 08:55 Creatinine 0.86 mg/dl (0.6-1.4) 02/04/24 08:55 Est Cr Clr Drug Dosing 74.0 ml/min 02/04/24 08:55 Est GFR ( Amer) 99.7 ml/min 02/04/24 08:55 Est GFR (Non-Af Amer) 86.0 ml/min 02/04/24 08:55 BUN/Creatinine Ratio 8.1 (10-20) L 02/04/24 08:55 Glucose 129 mg/dl (70-99(Fasting)) H 02/04/24 08:55 POC Glucose 101 mg/dl (70-99) H 02/05/24 07:45 Calcium 7.7 mg/dl (8.6-10.3) L 02/04/24 08:55 Magnesium 1.6 mg/dl (1.7-2.4) L 02/05/24 07:20 Total Bilirubin 0.5 mg/dl (0.2-1.0) 02/04/24 08:55 AST 12 U/L (13-39) L 02/04/24 08:55 ALT 7 U/L (7-52) 02/04/24 08:55 Alkaline Phosphatase 39 U/L (34-104) 02/04/24 08:55 Troponin I High Sens 5.3 pg/ml (0-20) 02/01/24 06:21 Total Protein 5.1 gm/dl (6.0-8.3) L 02/04/24 08:55 Albumin 3.0 gm/dl (3.4-5.0) L 02/04/24 08:55 Globulin 2.1 gm/dl (2.5-4.0) L 02/04/24 08:55 Albumin/Globulin Ratio 1.4 (0.9-2) 02/04/24 08:55 Lipase 9 U/L (11-82) L 01/30/24 05:45 TSH 0.623 uIu/ml (0.300-4.500) 01/29/24 12:30 Random Cortisol 13.57 mcg/dl 01/31/24 06:43 Urine Color Yellow 01/29/24 Unknown Urine Appearance Cloudy (Clear) A 01/29/24 Unknown Urine pH 5.0 (4.5-7.5) 01/29/24 Unknown Ur Specific Covert 1.014 (1.000-1.030) 01/29/24 Unknown Urine Protein Negative (Negative) 01/29/24 Unknown Urine Glucose (UA) Negative (Negative) 01/29/24 Unknown Urine Ketones Trace (Negative) H 01/29/24 Unknown Urine Blood 1+ (Negative) H 01/29/24 Unknown Urine Nitrite Negative (Negative) 01/29/24 Unknown Urine Bilirubin Negative (Negative) 01/29/24 Unknown Urine Urobilinogen Negative (Negative) 01/29/24 Unknown Ur Leukocyte Esterase 3+ (Negative) H 01/29/24 Unknown Urine WBC (Auto) >50 /hpf (0-5) H 01/29/24 Unknown Urine RBC (Auto) 3-5 /hpf (0-2) H 01/29/24 Unknown U Hyaline Cast (Auto) 11-20 /lpf (0-2) H 01/29/24 Unknown U Epithel Cells (Auto) 0-2 /hpf (0-2) 01/29/24 Unknown Urine Bacteria (Auto) None Seen (None Seen) 01/29/24 Unknown SARS-CoV-2 (PCR) NEGATIVE (Negative) 01/29/24 Unknown Influenza Type A (PCR) Negative (Neg) 01/29/24 Unknown Influenza Type B (PCR) Negative (Neg) 01/29/24 Unknown RSV (RT-PCR) Negative (Neg) 01/29/24 Unknown Impressions Abdomen/Pelvis CT 01/29/24 13:[address] WITH IV CONTRAST HISTORY: Acute renal as abdominal pain Abdominal pain, back pain, weight loss TECHNIQUE: Multiaxial CT images of the abdomen and pelvis were performed following the IV administration of 94 cc of Optiray, A dose lowering technique was utilized adhering to the principles of ALARA. COMPARISON STUDY: Chest CT of same day FINDINGS: Chest CT is dictated separately. This included discussion of the patient's solid pulmonary nodules. There is no free air. Unremarkable spleen, atrophic pancreas and adrenal glands. Mild gallbladder distention with a subcentimeter dependent gallstone. Unremarkable liver. There is patency of the intrahepatic and portal veins. Nonobstructing calculi left kidney measuring up to 7 mm. Indeterminate intermediate density lesion in the lateral interpolar left kidney is partially exophytic on image 121 measuring 2.9 cm, Hounsfield unit of 43. Simple appearing exophytic 11 mm lesion of the inferior pole right kidney. There is mild cortical thinning of the kidneys. There is a 1.4 x 0.9 x 1.7 cm calculus of the right renal pelvis. No significant hydronephrosis. Pelvic structures are not well seen secondary to streak artifact from right hip arthroplasty. The prostate is enlarged. Decompressed urinary bladder with wall thickening. Chaparro catheter in place. There is atherosclerosis of the aorta without aneurysm. No pathologically enlarged lymph nodes identified. Nonspecific trace free pelvic fluid with body wall edema. Colonic diverticulosis without acute diverticulitis. Nonspecific circumferential wall thickening of the cecum, ascending colon and proximal half of the transverse colon. Noninflamed appendix. Ventral abdominal wall hernia repair. No acute fracture. IMPRESSION: 1. Nonspecific wall thickening of the ascending and proximal transverse colon. Correlate clinically to exclude colitis. 2. No bowel obstruction or pneumoperitoneum. 3. Bilateral nephrolithiasis with a 1.7 cm calculus in the right UPJ. No associated obstructive uropathy. 4. Indeterminate bilateral renal lesions could be evaluated with follow-up nonemergent renal ultrasound. 5. Cholelithiasis. 6. Prostatomegaly with evidence of chronic bladder outlet obstruction. 7. Colonic diverticulosis. ACT 112: Negative or not required by law. The above report was generated using voice recognition software. It may contain grammatical, syntax or spelling errors. Electronically signed by: Hayden Omalley M.D. 01/29/2024 3:[address] 01/29/24 13:30 CT OF THE CHEST WITH IV CONTRAST CLINICAL HISTORY: Weight loss, weakness. COMPARISON STUDY: Chest radiograph January 06, 2011. TECHNIQUE: Following IV administration of 94 mL of Optiray, helical axial images of the chest were obtained. Sagittal and coronal reconstructions were viewed as well as maximal intensity projections on an independent 3-D workstation. Automated exposure control was utilized for the study. A dose lowering technique was utilized adhering to the principles of ALARA. FINDINGS: No enlarged axillary, mediastinal or hilar lymph nodes are present. The heart is mildly enlarged. There is extensive coronary artery calcification. Trace pericardial effusion. No pneumothorax or pleural effusion is present. There is no consolidation to suggest pneumonia. A few tiny cluster of tree-in-bud nodules within the right lung are present. Several small solid noncalcified pulmonary nodules are noted. The largest is a 7 mm left lower lobe nodule on image 165. There are no fractures or suspicious lesions within the bony thorax. The abdomen and pelvis CT will be reported separately. There is a gallstone within the gallbladder. IMPRESSION: 1. No acute intrathoracic findings. 2. No convincing evidence for malignancy within the chest. 3. A few pulmonary nodules measuring up to [address] in 6 months to ensure stability is recommended. 4. Mild cardiomegaly. Extensive coronary artery calcification. ACT 112: Negative or not required by law. Electronically signed by: Naveen Rockwell M.D. 01/29/2024 2:[address] 01/29/24 13:[address] DOSE: 2003.19 mGy.cm HISTORY: Weakness, loss of balance, weight loss TECHNIQUE: Multiaxial CT images of the head were performed without the use of intravenous contrast. Automated exposure control was utilized for this study. A dose lowering technique was utilized adhering to the principles of ALARA. Comparison: None. Findings: The paranasal sinuses and mastoid air cells are clear. The calvarium and skull base are intact. There is no mass, hematoma, midline shift, acute infarct. White matter hypodensity is nonspecific but suggestive of microvascular ischemic change. The ventricles and sulci demonstrate mild age-related involutional changes. Small focal areas of encephalomalacia within the right high convexity and left occipital lobe consistent with old infarcts. Impression: 1. No acute infarct or acute intracranial hemorrhage. 2. 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 ACT 112: Negative or not required by law. Electronically signed by: Mario Carmen M.D. 01/29/2024 2:15 PM Gallbladder Ultrasound 01/29/24 20:18 Exam(s): US GALLBLADDER EXAM: US Abdomen Limited, Gallbladder CLINICAL HISTORY: Reason for exam: gallstones. TECHNIQUE: Real-time ultrasound of the right upper quadrant with image documentation. COMPARISON: No relevant prior studies available. FINDINGS: Gallbladder: Echogenic foci demonstrated within the nondependent gallbladder. There is some gallbladder sludge present. Common bile duct: Unremarkable as visualized. No stones. No dilation. Pancreas: Unremarkable as visualized. Right kidney: There is linear hyper echogenicity within the right kidney up to 1.2 cm in maximal transverse dimension. IMPRESSION: Probable gallstones and some gallbladder suspicion of intrarenal right side as well. Electronically signed by: Jose A Beavers MD 01/30/24 05:53 AM Hepatobiliary Scan Nuclear Medicine 01/31/24 07:00 NM hepatobiliary CLINICAL HISTORY: 73 years-old Male with r/o acute cholecystitis. Acute right upper quadrant abdominal pain TECHNIQUE: Sequential anterior abdominal images were obtained through 60 minutes following the intravenous administration of 4.9 mCi of technetium-99m Choletec. COMPARISON: CT 01/29/2024 FINDINGS: There is prompt, uniform accumulation of the tracer by the liver. There is normal filling of the intrahepatic ducts, common bile duct and normal excretion of the tracer into the duodenum. The gallbladder fills normally. IMPRESSION: Normal hepatobiliary study. No scintigraphic evidence for acute cholecystitis or common bile duct obstruction. ACT 112: Negative or not required by law. The above report was generated using voice recognition software. It may contain grammatical, syntax or spelling errors. Electronically signed by: Hayden Omalley M.D. 01/31/2024 2:41 PM Pending Results Patient Have Any Pending Studies at Discharge: Yes Discharge Instructions Given to Patient (Per Discharging Provider) Check INR daily, adjust Coumadin accordingly Goal INR between 2-3 for history of DVT Repeat magnesium level in 2 to 3 days. Maintain Chaparro catheter until reevaluated by urology service as an outpatient. Repeat CT chest in 6 months to reevaluate pulmonary nodules. Please refer to accompanying hospital discharge summary for full details. Total Time Total Time Spent Total Time Spent (In Minutes): 45 minutes
== END 2024-02-05 16:45 | DRG 699 ==
LOC: ED 11:43 → SUATTDRO 16:28 → EDINP 16:28 → 3N 18:26